=== PATIENT | female | born 1990 | race Caucasian/White ===

== ENCOUNTER 2018-05-19 17:51 | Emergency (ER) | payer MEDICAID, SELFPAY ==
[2018-05-19 17:53] VITALS: BP 113/69; PULSE 114; RESP 24; TEMP 36.7; O2SAT 100; BMI 20.5
--- NOTE | 2018-05-19 18:26 | EKG12_ITS ---
Test Reason : [facility] [place] Pressure : / mmHG Vent. Rate : 093 BPM Atrial Rate : 093 BPM P-R Int : 192 ms QRS Dur : 074 ms QT Int : 356 ms P-R-T Axes : 055 059 048 degrees QTc Int : 442 ms Sinus rhythm with sinus arrhythmia with occasional Premature ventricular complexes Otherwise normal ECG Confirmed by YOSVANY PETERSON, MARCOS ([id number]), editorial intern JAIME WILLIAM ([id number]) on 05/22/2018 4:17:19 PM Referred By: TR Confirmed By:MARCOS BAR MD
--- NOTE | 2018-05-19 18:30 | US_ITS ---
STUDY: SECOND AND THIRD TRIMESTER OBSTETRICAL ULTRASOUND - LIMITED REASON FOR EXAM: Female, 27 years old. Unsure LMP. Pain. PRIOR ULTRASOUND: None. TECHNIQUE: Transabdominal. TECHNICAL QUALITY: Adequate. FINDINGS: There is a single live intrauterine gestation in vertex presentation. Cardiac activity is documented, with heart rate of 140. Placenta is posterior, with no evidence of previa. Amniotic fluid is visually adequate. Cervical length is not well seen. The cervix is closed. biometry demonstrates biparietal diameter corresponding to 18 weeks 4 days, head circumference corresponding to 18 weeks 3 days, abdominal circumference 19 weeks 2 days, femur length 19 weeks 1 day. Mean sonographic estimated gestational age measures 18 weeks 6 days. Estimated date of delivery 10/14/2018. Estimated weight 273 g. Right adnexal lesion measures 8.1 x 6.3 x 4.3 cm. It is unclear whether this represents the ovary or adjacent structure. Normal left ovary measuring 3.8 x 2.5 x 2.2 cm. No mass or dominant cyst. Venous flow is documented. US/OB Limited With Biometrics IMPRESSION: 1. Single live intrauterine gestation with EGA 18 weeks 6 days. 2. Question right ovarian mass versus adjacent structure. Options include MRI for further evaluation versus ultrasound or MRI. Electronically Signed: Eleonora Joshi MD at 21:26 EST Tel , Service support ,
--- NOTE | 2018-05-19 18:33 | ED.RN ---
NO OLD EKGS IN MUSE
--- NOTE | 2018-05-19 18:40 | RAD_ITS ---
STUDY: X-RAY CHEST REASON FOR EXAM: Female, 27 years old. Substance abuse and TECHNIQUE: Single frontal view of the chest. COMPARISON: None. FINDINGS: The lungs are clear and expanded. There is no demonstrated pleural abnormality. Normal size heart. Normal mediastinum and cesar. Normal visualized pulmonary arteries. Normal visualized aortic arch and descending thoracic aorta. Normal visualized thoracic spine. Normal visualized ribs, clavicles, and shoulders. There is no demonstrated abnormality of the visualized soft tissue structures of the upper abdomen. RAD/Chest 1 View (Portable) IMPRESSION: Normal x-ray examination of the chest. Electronically Signed: Isaac Sparks MD at 20:10 EST , Service support ,
[2018-05-19] MEDS: LORazepam 2 MG/ML Syringe 0.5 MG IV ×2 (18:49→21:56)
[2018-05-19 19:01] LABS: Mucous, Urine 0 SEEN /hpf (<or=2+)
[2018-05-19] MEDS: 0.9% Normal Saline 1,000 ML 150 ML IV (19:01)
[2018-05-19 19:02] VITALS: PULSE 99; RESP 17; O2SAT 99
[2018-05-19 19:04] LABS: Glucose, Dipstick Normal (Normal); Ketone-Dipstick Negative (Negative); Leukocyte Esterase-Dipstick 500 /ul (Negative); Nitrite-Dipstick Negative (Negative); Occult Blood-Urine 25 /ul (Negative); Protein-Dipstick 100 mg/dl (Negative); Urine Bilirubin Dipstick Negative (Negative); Urine Urobilinogen Normal (Normal)
[2018-05-19 19:05] LABS: Absolute Neutrophil Count 10.1 X10^3/uL (2.0-7.7); Basophil# 0.02 X10^3/uL; Basophil% 0.2 % (0-1); Eosinophil# 0.06 X10^3/uL; Eosinophils% 0.5 % (0-5); Hematocrit 31.4 % (37-47); Hemoglobin 10.1 g/dl (12.0-15.0); Lymphocyte % 12.3 % (19-41); Mean Corp Hgb Conc 32.2 g/gl (32-36); Mean Corpuscular Hgb 27.4 pg (27.0-32.0); Mean Corpuscular Volume 85.1 fL (81-99); Mean Platelet Vol. 9.3 fl (6.2-12.0); Monocyte# 0.42 X10^3/uL; Monocyte% 3.4 % (0-10); Neutrophil # 10.12 X10^3/uL (2.7-7.7); Neutrophil % 82.9 % (47-70); Platelet Count 225 K/mm3 (150-450); RBC Distribution Width CV 16.1 % (11.6-14.6); Red Blood Count 3.69 M/mm3 (4.2-5.4); White Blood Count 12.2 K/mm3 (4.4-11.0)
[2018-05-19 19:07] LABS: Differential Indicated SCAN CRITERIA MET; POSITIVE COUNT NO; POSITIVE DIFFERENTIAL NO; POSITIVE MORPHOLOGY YES
[2018-05-19 19:10] LABS: Color, Urine Yellow (Yellow); Urine Clarity Sl Cloudy (Clear)
[2018-05-19 19:12] LABS: Red Blood Cells-Urine 0-5 SEEN /hpf (0-5); Squamous Epithelial Cells - UA 5-10 SEEN /hpf (5-10); White Blood Cells 50-100 SEEN /hpf (0-5)
[2018-05-19 19:13] LABS: Amorphous Sediment 1+ URATE; Bacteria 4+ /hpf (None Seen)
[2018-05-19 19:15] LABS: Amphetamine Urine VISTA NEGATIVE (<1000 ng/mL); Barbiturate Urine VISTA NEGATIVE (< 200 ng/mL); Benzodiazepine Urine VISTA NEGATIVE (< 200 ng/mL); Cocaine Urine VISTA POSITIVE (< 300 ng/mL); Ecstacy Urine VISTA NEGATIVE (< 500 ng/mL); Methadone Urine VISTA NEGATIVE (< 300 ng/mL); PCP Urine VISTA NEGATIVE (< 25 ng/mL); THC Urine VISTA POSITIVE (< 50 ng/mL); Vista UDS pH Range 6
[2018-05-19 19:36] LABS: Alcohol, Blood (Medical)-Serum < 3.0 mg/dL
[2018-05-19 19:38] LABS: AST(SGOT) 26 U/L (15-37); Alanine Aminotransfer ALT/SGPT 25 U/L (13-56); Albumin, Serum 2.7 g/dL (3.2-5.0); Alkaline Phosphatase 68 U/L (45-117); Anion Gap 9 (5-15); BUN 14 mg/dL (7-18); BUN/Creat Ratio 8.2 RATIO (10-20); Bilirubin, Direct < 0.05 mg/dL (0.00-0.30); Calcium,Total 9.2 mg/dL (8.5-10.1); Chloride 108 mmol/L (98-107); EST Glomerular Filtration Rate 38 mL/min (>60); Est Glom Filt Rate - Afr Amer 46 mL/min (>60); Estimated Creatinine Clearance 49.44 ml/min; Glucose 99 mg/dL (74-106); Lipase 101 U/L (73-393); Potassium 3.1 mmol/L (3.5-5.1); Protein, Total 7.7 g/dL (6.4-8.2); Sodium Level 140 mmol/L (136-145)
--- NOTE | 2018-05-19 19:41 | ED.RN ---
CALLED CRISIS TO SEE THIS PT, JOSHUA IS FILM NUMBERER
[2018-05-19 19:56] LABS: hCG Titer Quant., Serum 30967 mIU/mL (<9 non-preg)
[2018-05-19] MEDS: Nitrofurantoin Macrocrystals 100 MG Capsule PO (20:26)
[2018-05-19 20:27] VITALS: BP 108/66; PULSE 101; RESP 22; O2SAT 97
[2018-05-19 20:29] LABS: Differential Comment SCANNED; Platelet Estimate ADEQUATE (ADEQ)
[2018-05-19 21:16] VITALS: BP 114/72; PULSE 103; RESP 18; O2SAT 97
[2018-05-19] MEDS: Ondansetron 4 MG/2 ML Vial IV (21:55)
[2018-05-19 22:18] VITALS: BP 109/67; PULSE 94; RESP 17; O2SAT 96
--- NOTE | 2018-05-19 22:38 | ED.RN ---
JOSHUA CALLED BACK, SHE WILL BE IN
[2018-05-19 23:01] VITALS: BP 108/70; PULSE 90; RESP 14; O2SAT 97
[2018-05-20] VITALS (9 sets, daily range): BP systolic 103–124; BP diastolic 69–83; PULSE 81–96; RESP 13–28; O2SAT 96–98
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
[2018-05-20] MEDS: Ondansetron ODT 4 MG Tablet PO (04:25)
[2018-05-20] MEDS: LORazepam 2 MG/ML Syringe 1 MG IV (04:25)
[2018-05-20] MEDS: Nitrofurantoin Macrocrystals 100 MG Capsule PO (07:29)
== END 2018-05-20 07:57 ==
PROVIDERS: Emergency Provider Emergency Medicine
DX: R45.851 Suicidal ideations (principal); B19.20 Unspecified viral hepatitis C without hepatic coma; F19.11 Other psychoactive substance abuse, in remission; N18.9 Chronic kidney disease, unspecified; O23.42 Unspecified infection of urinary tract in pregnancy, second trimester; O26.832 Pregnancy related renal disease, second trimester; O26.892 Other specified pregnancy related conditions, second trimester; O98.412 Viral hepatitis complicating pregnancy, second trimester; Z85.72 Personal history of non-Hodgkin lymphomas; Z3A.18 18 weeks gestation of pregnancy; Z59.0 Homelessness
CPT/HCPCS: 71045; 76816; 80048; 80076; 80307; 80320; 81001; 83690; 84702; 85025; 86900; 87077; 87086; 87088; 87186; 93005; 99285; J7030; A4216; G0480; J2405

== ENCOUNTER 2018-07-21 16:03 | Emergency (ER) | payer MEDICAID, SELFPAY ==
[2018-07-21 16:05] VITALS: BP 116/76; PULSE 91; RESP 18; TEMP 36.6; O2SAT 96; BMI 23.3
--- NOTE | 2018-07-21 16:32 | ED.VISSUMM ---
- ER Visit Summary Date of Service: 07/21/18 Chief Complaint: [] 6 months requesting Subutex for opioid rehab purposes History of Present Illness: The patient is a 27 F [] patient indicates she is 6 months she has history of opioid abuse and she is on Subutex 12 mg a day, she indicates she was at a recent rehab center in the region called [facility] yesterday, indicates they did not provide her with further Subutex medication as she normally gets up from providers in [place], she also indicates she is scheduled to see Dr. cullen of [address] [place] [address] on Monday, in any case she took her Subutex yesterday has none and presents to the emergency department asking that she be given a dose of Subutex she is also had a chronic cough but otherwise her is uncomplicated she is following all of her detox therapy and recommendations She indicates the Subutex that she receives is from a walk-in clinic so she does not have a pharmacy that she usually uses, she did provide paperwork that she used to indicate evidence of the appropriateness to provide her Subutex will copy that paper placed on her chart Physical Examination: [] Vital signs are all within normal range she is in no distress General, no distress resting comfortably HEENT is generally unremarkable The neck is supple no adenopathy Cardiovascular, regular rate and rhythm Lungs, clear bilateral Abdomen, soft nontender Extremities, no clubbing cyanosis or edema Neurologic, awake alert answering questions appropriately moving all 4 extremities Test Results: [] Emergency Department Course and Treatment: [] Long conversation with the patient I explained to her the management and prescription practice for Subutex is quite regimented by multiple regulatory agencies and that if her providers for Subutex are in [place] she needs to obtain all those medications from them until her care is transferred to other providers in the emergency department cannot basically provide prescriptions for Subutex I spoke with Dr. cullen as a courtesy to Dr. cullen to let her know of the above situation with the patient Dr. cullen stated she does not know the patient she is not in her care at this time and could not provide any specific instructions as to her current management today This time of explained to the patient that for this 1 time and exception will be made I will prescribe her Subutex 12 mg for today this will allow her the opportunity to go to [place] and get the remaining medications until her care is transferred to [facility] I further explained to her that it is likely she will not receive a prescription for 180 until she is seen on Monday no further prescriptions will be provided from the emergency department Treatment Plan: [] Disposition: [] Home stable Impression: [] 6 months , opioid dependency currently on Subutex therapy This note was generated with coin4ceation software. It may contain incorrect words, spelling, and punctuation that were not noted in review of the chart prior to signing ED Disposition - Plan for ED Patient: Chief Complaint: Substance Abuse Referrals: Care Physician,No Primary [Primary Care Provider] -
--- NOTE | 2018-07-21 16:36 | ED.DEP ---
ED Disposition - Plan for ED Patient: Chief Complaint: Substance Abuse Instructions: ED Narcotic Abuse Referrals: Care Physician,No Primary [Primary Care Provider] - Additional Instructions: You must obtain your Subutex and all other detox management medications from your providers even if they are in [place] you should follow-up as scheduled with 180, you may not receive a prescription for any medications until Monday, there will be no further medications provided from the emergency department
[2018-07-21 17:23] VITALS: PULSE 72; RESP 18; O2SAT 97
== END 2018-07-21 17:20 | disposition home or self-care (01) ==
PROVIDERS: Emergency Provider Emergency Medicine
DX: O99.322 Drug use complicating pregnancy, second trimester (principal); F11.20 Opioid dependence, uncomplicated; Z3A.00 Weeks of gestation of pregnancy not specified; R05 Cough
CPT/HCPCS: 99282

== ENCOUNTER 2018-08-01 12:35 | Inpatient (IN) | payer MEDICAID, SELFPAY ==
[2018-08-01 13:29] VITALS: BMI 23.9
[2018-08-01] MEDS: 0.9% Saline Lock 10 ML Syringe IV ×2 (13:30→21:00)
[2018-08-01 14:11] LABS: Hematocrit 27.8 % (37-47); Hemoglobin 8.8 g/dl (12.0-15.0); Mean Corp Hgb Conc 31.7 g/gl (32-36); Mean Corpuscular Hgb 27.8 pg (27.0-32.0); Mean Corpuscular Volume 87.7 fL (81-99); Mean Platelet Vol. 10.1 fl (6.2-12.0); Platelet Count 216 K/mm3 (150-450); RBC Distribution Width CV 12.3 % (11.6-14.6); RBC Distribution Width SD 37.8 fl (35.1-43.9); Red Blood Count 3.17 M/mm3 (4.2-5.4); White Blood Count 6.7 K/mm3 (4.4-11.0)
[2018-08-01 14:12] LABS: Scan Indicated on CBC? Y/N NO
[2018-08-01 14:45] LABS: Anion Gap 11 (5-15); BUN 22 mg/dL (7-18); BUN/Creat Ratio 14.9 RATIO (10-20); Calcium,Total 8.6 mg/dL (8.5-10.1); Chloride 108 mmol/L (98-107); Creatinine, Serum 1.48 mg/dL (0.55-1.02); EST Glomerular Filtration Rate 45 mL/min (>60); Est Glom Filt Rate - Afr Amer 54 mL/min (>60); Estimated Creatinine Clearance 59.67 ml/min; Glucose 91 mg/dL (74-106); Potassium 3.7 mmol/L (3.5-5.1); Sodium Level 140 mmol/L (136-145)
[2018-08-01] MEDS: miSOPROStol 50 MCG TABLET VAGINAL (14:57)
[2018-08-01 17:22] LABS: Amphetamine Urine VISTA NEGATIVE (<1000 ng/mL); Barbiturate Urine VISTA NEGATIVE (< 200 ng/mL); Benzodiazepine Urine VISTA NEGATIVE (< 200 ng/mL); Cocaine Urine VISTA NEGATIVE (< 300 ng/mL); Ecstacy Urine VISTA NEGATIVE (< 500 ng/mL); Methadone Urine VISTA NEGATIVE (< 300 ng/mL); PCP Urine VISTA NEGATIVE (< 25 ng/mL); THC Urine VISTA NEGATIVE (< 50 ng/mL); Vista UDS pH Range 6
[2018-08-01] MEDS: miSOPROStol 100 MCG TABLET VAGINAL (19:01)
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
[2018-08-01] MEDS: BUPRENORPHINE HCL 8 MG TAB.SUBL 4 MG SL (20:50)
[2018-08-01] MEDS: miSOPROStol 100 MCG TABLET 150 MCG VAGINAL (23:31)
[2018-08-02] MEDS: Lactated Ringers 1,000 ML 50 ML IV ×3 (00:05→06:05)
[2018-08-02] MEDS: Nalbuphine 10 MG/ML Ampul IV (00:38)
[2018-08-02] MEDS: fentaNYL-bupivacaine (epidural) 100 ML BAG EPIDURAL ×2 (01:40→06:04)
[2018-08-02] MEDS: BUPRENORPHINE HCL 8 MG TAB.SUBL 4 MG SL ×4 (03:41→21:38)
[2018-08-02] MEDS: miSOPROStol 100 MCG TABLET 150 MCG VAGINAL (03:42)
[2018-08-02] MEDS: Levothyroxine 125 MCG Tablet PO (05:18)
[2018-08-02] MEDS: Oxytocin 30 units/NS 500 ml 30 UNITS/500 ML IV.SOLN 334 UNITS IV (08:40)
--- NOTE | 2018-08-02 09:00 | PLAC_PTH ---
PATIENT: AISSATOU JOHNSON LOC: [facility] U#:[id number] AGE/SX: 27/F ROOM: WP011 RE08/01/[address]: Dr. Analy Vilchis MD : 1990 BED: 1 DIS: 08/03/2018 SPEC #: [id number] RECD: 08/02/18 10:27 STATUS: MAI CHETAN #: [id number] TRISH: 08/02/18 09:[address]: Analy Vilchis DEPT: SURGICAL PATHOLOGY RECD BY: Leighton Griffin ENTERED: 08/02/18 11:36 SP TYPE: PLACENTA OT DR: No Primary Care Phys Tissues: Placenta, NOS Procedures: Surgery Specimen Level V HEADER OPERATION: Vaginal delivery PRE-OP DIAGNOSIS: demise TISSUE SUBMITTED: Placenta MICROSCOPIC DIAGNOSIS Vasquez placenta (240 gm): Umbilical cord - trivascular with no inflammation. Placental membranes - no evidence of inflammation. Placental disc - immature villi consistent with age. Mikel change. Mild acute and chronic deciduitis. Focal infarct of placental floor. Focal nonspecific chronic villitis. AM:pete 08/06/18 MICROSCOPIC DESCRIPTION Slides are reviewed. GROSS DESCRIPTION SPECIMEN: PLACENTA / CLINICAL INFORMATION: A. Weight: Not noted B. Gestational Age: 28 weeks C. Sex: Male PLACENTAL WEIGHT (POST FIXATION): 240 gm PLACENTAL DIMENSIONS: 15 x 11 x 2.5 cm PLACENTAL SHAPE: Usual ovoid PLACENTAL WEIGHT FOR GESTATIONAL AGE: Within 10-99th percentile MEMBRANES - Present A. Insertion: Marginal B. Site of rupture from edge: The membranes are fragmented and appear to be ruptured 1 cm from edge of placental disc. C. Color of membrane: Hernandez-martinez D. Abnormalities: None UMBILICAL CORD - Present in two segments. A. Color: Hernandez-martinez B. Insertion: Paracentral C. Length: The proximal segment of the umbilical cord attached to placenta measures 26 cm in length. D. Diameter: 1 cm E. Number of vessels: Three F. Abnormalities: The distal segment of umbilical cord also appears to be dusky red and macerated 24?cm in length and 1 cm in diameter. PLACENTAL DISC - Present A. Color of surface: Hernandez-martinez B. surface abnormalities: None C. Maternal cotyledons: Intact with minimal tears D. Attached retro placental clot: No clot E. Cut surface: Dark red and spongy F. Lesions: The maternal surface shows a few plaque-like areas. A hernandez, indurated lesion is also noted measuring 1.5 cm in greatest dimension. G. Separate clot: A small piece of detached blood is also present in the container measuring 3 x 2 x 0.5 cm and weighs 2 gm. SECTIONS SUBMITTED: 1. Membrane roll 2. Cord, maternal end 3. Cord, end 4. Placental disc, and maternal surfaces, lesion 5. Placental disc, and maternal surfaces, plaque on material surface 6. Placental disc, and maternal surfaces, plaque on material surface CHRISTIN:pete 08/03/18 TC:2 CPT: 08369
[2018-08-02] MEDS: Oxytocin 30 units/NS 500 ml 30 UNITS/500 ML IV.SOLN 167 UNITS IV (09:10)
--- NOTE | 2018-08-02 09:42 | PCM.OB.VAG ---
- Problem List (1) demise > 22 weeks, delivered, current hospitalization Status: Acute Vaginal Delivery Maternal Presentation: Medically Indicated Induction Method of Induction: Cytotec Medical Reason for Induction: demise Amniotic Membrane Rupture Type: Artificial Amniotic Fluid Description: Foul-odor, Bloody Final GILBERT: 10/22/18 Gestational age: 28 Weeks and 3 Days Date of Procedure: 08/02/18 Pre-Operative Diagnosis: demise Post-Operative Diagnosis: Vaginal Delivery demise Surgery/ Procedure Performed: Spontaneous Vaginal Delivery Type of Anesthesia: Epidural Description of Procedure: Progressed to complete with bulging membranes. AROM for bloody foul smelling fluid. Vaginal after of demise. Infant delivered intact , cord clamped and cut. taken to crib. Placenta delivered intact with maternal effort. Perineum inspected and no lacerations. EBL 200ml. Placenta to pathology and cultures. Unable to get cord blood from placenta. Mother tearful, emotional support provided. notified of delivery.
[2018-08-02 14:20] VITALS: BP 113/80; PULSE 105; RESP 16; TEMP 37.6
[2018-08-02] MEDS: Ferrous Sulfate 325 MG Tablet PO ×2 (14:30→18:20)
--- NOTE | 2018-08-02 15:09 | NURSING ---
1420 pt has taken her nicotine patch off; pt states that she wants to go out and smoke; Pt denied any further non smoking interventions; pt signed assumption of risk paper; marvin mo'dominic egan made aware;
--- NOTE | 2018-08-02 15:14 | NURSING ---
1300 pt holding and gazing at infant; pts mother supportive at bedside; pt tearful
[2018-08-02 15:47] VITALS: BP 112/74; PULSE 100; RESP 16; TEMP 37.2
[2018-08-02 16:44] LABS: Hematocrit 30.9 % (37-47); Mean Corp Hgb Conc 32.4 g/gl (32-36); Mean Corpuscular Hgb 28.3 pg (27.0-32.0); Mean Corpuscular Volume 87.5 fL (81-99); Mean Platelet Vol. 9.8 fl (6.2-12.0); Platelet Count 190 K/mm3 (150-450); RBC Distribution Width CV 12.2 % (11.6-14.6); RBC Distribution Width SD 37.5 fl (35.1-43.9); Red Blood Count 3.53 M/mm3 (4.2-5.4); Scan Indicated on CBC? Y/N NO; White Blood Count 11.8 K/mm3 (4.4-11.0)
--- NOTE | 2018-08-02 16:49 | CASEMGMT ---
Social Work Labor and Delivery Notified of patient/mother of baby (MOB) admission, delivering a 28 week gestational demise. MOB also with history of substance use, and in residential treatment for such. Chart has been reviewed. Noted that MOB's mother has reached out to a grief support counselor already, and this entry writer noted a female outside of MOB's room this date, talking to another female that this entry writer knows to be a talent coordinator for a local hospice agency. Checked with nursing and MOB has had the baby in the room today, but requesting baby to be out of room while MOB sleeps for a couple of hours. Presented to MOB's room to introduce to self and role. Acknowledged MOB's support system through [employer], family, and the grief counselor visit today. MOB confirmed support system indicated. Offered condolences to MOB on loss of baby. This entry writer offered to let MOB sleep, then also provided option for oncology social worker to check back with MOB tomorrow if MOB wishes. MOB voiced that would be good if oncology social worker wants to come back tomorrow to check in. Plan: See MOB again tomorrow, check on how doing and if additional support or needs are present. -PORTILLO Emanuel, PATIENT ACCOUNT REPRESENTATIVE
--- NOTE | 2018-08-02 18:58 | NURSING ---
wt. 885 gm, 1#15.2 oz, 14 inches long, 9 inch head circ. male
--- NOTE | 2018-08-02 19:09 | NURSING ---
1900 pt request spiritual support; states that she wants baby prayed over and blessed; phone call placed to manager socialSisi and she is arranging for someone to come in;
[2018-08-02] MEDS: Ondansetron ODT 4 MG Tablet PO (20:06)
[2018-08-02 21:55] VITALS: BP 106/69; PULSE 102; RESP 18; TEMP 37.2
[2018-08-02] MEDS: Sertraline 50 MG Tablet 25 MG PO (21:59)
[2018-08-02] MEDS: Haloperidol 5 MG Tablet PO (22:00)
--- NOTE | 2018-08-02 23:27 | NURSING ---
Casting Cleaner from [facility] arrived to . Escorted to patient room. Patient's mother an father present. Nurse left the room briefly to retrieve for the prayer & blessing. Upon return to room with , he was placed in mother's arms. Nurse asked if patient wanted privacy or wanted nurse to stay in room. Patient requesting I stay. Casting Cleaner left approximately 20:40. family asked that the home be called 20:50 [facility] notified by phone the family is ready for to be picked up. Nurse returned to patient's bedside. Patient asked that I stay with her until she was ready to say goodbye. Patient holding infant and gazing at him. Talking to him and saying I love you so much 21:10 patient reports she is ready for to leave the room. Infant taken by Nurse and prepared for departure with home. Infant properly identified. Paperwork signed by [facility] and left unit at 21:20 with home access services representative (Nargis). Patient & family notified by nurse that home left the hospital with infant Nurse remained at bedside with patient other than to leave the room very briefly to make appropriate phone calls
[2018-08-03 03:30] VITALS: BP 89/51; PULSE 91; RESP 18; TEMP 36.6
[2018-08-03] MEDS: BUPRENORPHINE HCL 8 MG TAB.SUBL 4 MG SL ×2 (03:41→08:41)
[2018-08-03] MEDS: Levothyroxine 125 MCG Tablet PO (06:01)
--- NOTE | 2018-08-03 07:32 | PCM.PN.OB ---
Patient Problems: Active and Suspected Problems demise > 22 weeks, delivered, current hospitalization (Acute) Subjective: Patient is doing okay this morning. Her mother is at bedside. She slept well last night. She has a decreased appetite but ate okay yesterday and without N/V. Pain is controlled. Lochia normal. Denies lightheadedness, dizziness, CP, SOB, leg pain. - Physical Exam General: Alert, No apparent distress HEENT: Atraumatic Lungs: - - No increased resp effort Abdomen: Soft, Non Tender, Non-Distended Extremities: No edema, No Calf Tenderness Skin: No rashes Neurological: Neuro grossly intact Psych/Mental Status: Normal Affect, Appropriate Vital Signs Temp Pulse Resp BP 97.8 F 91 18 89/51 L 08/03/18 03:30 08/03/18 03:30 08/03/18 03:30 08/03/18 03:30 Weight: 162 lb 4.163 oz Body Mass Index (BMI) 23.9 Intake and Output for Last 24 Hours 08/01/18 08/02/18 08/03/18 23:59 23:59 23:59 Intake Total 3441 / 3441 Output Total 300 / 300 2700 / 2700 Balance -300 / -300 741 / 741 Microbiology Past 72 Hours 08/02/18 09:45 Gram Stain - Final Tissue - Aerobic & Anaerobic Swabs 08/02/18 09:45 Gram Stain - Final Tissue - Aerobic & Anaerobic Swabs Laboratory Tests Past 24 Hrs 08/02/18 16:20 WBC 11.8 H RBC 3.53 L Hgb 10.0 L Hct 30.9 L MCV 87.5 MCH 28.3 MCHC 32.4 RDW 12.2 RDW Differential 37.5 Plt Count 190 MPV 9.8 Medical Necessity - Tobacco Use Smoking Status: Current every day smoker Assessment/Plan All Active Problems demise > 22 weeks, delivered, current hospitalization (Acute) day #2 s/p for demise. - Pt doing okay this morning and her mother is at bedside for support - She desires to go home today. D/c today with follow up in 1 week - She is going to get established at [facility] for counseling as well
--- NOTE | 2018-08-03 07:42 | DCINST_ITS ---
- Discharge Diagnoses Current Active Problems: Current Active and Chronic Problems demise > 22 weeks, delivered, current hospitalization (Acute) You will use the following diet at home:: No restrictions, Regular Discharge Activity: Return to Normal Activity, May Shower May resume sexual activity in: 4-6 weeks Ice area for (Minutes): 20 Weight Bearing Status: Full weight bearing Lifting Restrictions: None Call your doctor if you observe: Fever of 101 or Higher, Inability to urinate, Inability to have a bowel movement, Using more than one pad per hour, Shortness of breath, Dizziness, Chest pain, Increased palpitations (irregular heartbeat), Calf discomfort, Uncontrolled pain Cleanse incision/area with: Soap & Water Allergies/Adverse Reactions: Allergies ceftriaxone [From Rocephin] Allergy (Verified 07/21/18 16:05) Unknown droperidol Allergy (Verified 07/21/18 16:05) Unknown LAXATIVE Allergy (Uncoded 07/21/18 16:05) Unknown Medications to take at Discharge Aspirin [Aspir 81] 81 mg PO DAILY 07/21/18 Buprenorphine HCl 4 mg PO Q6H 07/21/18 DiphenhydrAMINE [Benadryl] 50 mg PO QHS 07/21/18 Ferrous Sulfate 325 mg PO TID 07/21/18 Haloperidol [Haldol] 5 mg PO DAILY 07/21/18 Hydroxyzine HCl 25 mg PO PRN PRN 07/21/18 Magnesium Hydroxide [Milk Of Magnesia] 30 ml PO DAILY PRN PRN 07/21/18 Ondansetron [Zofran Odt] 4 mg PO Q8H PRN PRN 07/21/18 Vit No.130/Iron/Folic [ Tablet] 1 each PO DAILY 07/21/18 Sertraline HCl [Zoloft] 25 mg PO DAILY 07/21/18 Vitamin B-12 500 mcg PO DAILY 07/21/18 Metoclopramide [Reglan] 10 mg PO PRN PRN 08/01/18 Primary Care Physician: Care Physician,No Primary [Primary Care Provider] - Test Results: Test results from this visit will be discussed in further detail at your follow- up appointment, if applicable. Please Follow Up With: Loreta Loza DO When: 1 week
[2018-08-03 08:00] VITALS: BP 107/66; PULSE 98; RESP 16; TEMP 36.8
--- NOTE | 2018-08-03 09:23 | NURSING ---
0830 discharge talk done; pt verbalizes understanding phone call placed to 180 to come and product picker pts subutex; rusty into see pt agreed to make a councling appt. rusty will arrange and notify pt at what time.
--- NOTE | 2018-08-03 09:26 | NURSING ---
[id number] pt discharged to home
[2018-08-05 07:40] LABS: Pathology Specimen OB SEE PATHOLOGY REPORT
--- NOTE | 2018-08-09 14:31 | NURSING ---
Spoke with grandmother. Mother had demise and mother is staying at the [facility]. She states they are doing well and appreciated all that everyone did.
== END 2018-08-03 08:40 | disposition home or self-care (01) | DRG 560 ==
PROVIDERS: Advanced Practice Midwife; Admitting Provider Obstetrics & Gynecology; Referring Provider Obstetrics & Gynecology; Visit Provider Obstetrics & Gynecology
DX: O36.4XX0 Maternal care for intrauterine death, not applicable or unspecified (principal); Z37.1 Single stillbirth; O34.219 Maternal care for unspecified type scar from previous cesarean delivery; O99.334 Smoking (tobacco) complicating childbirth; Z3A.28 28 weeks gestation of pregnancy
CPT/HCPCS: 59050; 80048; 80307; 85027; 86850; 86900; 87070; 87075; 87077; 87186; 87205; 88307; 99218; J7120; A4216; G0378

== ENCOUNTER → 2018-09-27 11:49 | Outpatient (CLI) | payer MEDICAID, SELFPAY ==
[2018-09-27 11:14] VITALS: BMI 23.9
[2018-09-27 12:19] LABS: Absolute Lymphocyte Count 1.98 X10^3/ul (0.83-4.51); Absolute Neutrophil Count 1.6 X10^3/uL (2.0-7.7); Basophil# 0.01 X10^3/uL; Basophil% 0.2 % (0-1); Eosinophil# 0.13 X10^3/uL; Eosinophils% 3.1 % (0-5); Hematocrit 34.8 % (37-47); Hemoglobin 11.3 g/dl (12.0-15.0); Lymphocyte # 1.98 X10^3/ul (4.0); Lymphocyte % 47.3 % (19-41); Mean Corp Hgb Conc 32.5 g/gl (32-36); Mean Corpuscular Hgb 26.6 pg (27.0-32.0); Mean Corpuscular Volume 81.9 fL (81-99); Mean Platelet Vol. 9.8 fl (6.2-12.0); Monocyte# 0.45 X10^3/uL; Monocyte% 10.7 % (0-10); Neutrophil # 1.61 X10^3/uL (2.7-7.7); Neutrophil % 38.5 % (47-70); Platelet Count 219 K/mm3 (150-450); RBC Distribution Width CV 12.5 % (11.6-14.6); RBC Distribution Width SD 36.8 fl (35.1-43.9); Red Blood Count 4.25 M/mm3 (4.2-5.4); White Blood Count 4.2 K/mm3 (4.4-11.0)
[2018-09-27 12:30] LABS: POSITIVE COUNT NO; POSITIVE DIFFERENTIAL NO; POSITIVE MORPHOLOGY NO
[2018-09-27 13:10] LABS: ALB/GLOB Ratio 0.9 RATIO (0.9-2.4); AST(SGOT) 61 U/L (15-37); Alanine Aminotransfer ALT/SGPT 99 U/L (13-56); Albumin, Serum 3.5 g/dL (3.2-5.0); Alkaline Phosphatase 101 U/L (45-117); Anion Gap 8 (5-15); BUN 36 mg/dL (7-18); BUN/Creat Ratio 22.8 RATIO (10-20); Calcium,Total 8.7 mg/dL (8.5-10.1); Chloride 109 mmol/L (98-107); Creatinine, Serum 1.58 mg/dL (0.55-1.02); EST Glomerular Filtration Rate 41 mL/min (>60); Est Glom Filt Rate - Afr Amer 50 mL/min (>60); Glucose 84 mg/dL (74-106); Potassium 4.3 mmol/L (3.5-5.1); Protein, Total 7.5 g/dL (6.4-8.2); Sodium Level 139 mmol/L (136-145); T4 Free Direct 1.12 ng/dL (0.76-1.46); Thyroid Stim Hormone (TSH) 0.03 uIU/mL (0.358-3.74); Vitamin B12 708 pg/mL (211-911); Vitamin D,25 Hydroxy 24.4 ng/mL (29.95-100.01)
== END ==
PROVIDERS: PCP Internal Medicine; Visit Provider Nurse Practitioner Family
DX: E53.8 Deficiency of other specified B group vitamins (principal); E56.9 Vitamin deficiency, unspecified; F19.10 Other psychoactive substance abuse, uncomplicated; R53.83 Other fatigue
CPT/HCPCS: 36415; 80053; 82306; 82607; 84439; 84443; 85025

== ENCOUNTER → 2018-10-31 13:48 | Outpatient (CLI) | payer MEDICAID, SELFPAY ==
[2018-10-15 16:02] VITALS: BMI 23.9
--- NOTE | 2018-10-31 13:51 | US_ITS ---
STUDY: RENAL ULTRASOUND - COMPLETE REASON FOR EXAM: Female, 27 years old. Elevated BUN/creatinine, right renal agenesis TECHNIQUE: Ultrasound evaluation of the kidneys was performed with real-time and static robertson-scale imaging. COMPARISON: None. FINDINGS: RIGHT KIDNEY: Absent LEFT KIDNEY: Normal location of the left kidney, which is normal in size. The left kidney measures 10.7 x 6.9 x 6.8 cm. There is a normal cortex of the left kidney. The renal cortex measures 3.6 cm. There is a 1.5 cm cyst There are no left renal calculi. There is mild hydronephrosis of the left kidney. DISTAL LEFT URETER: There is non-visualization of the distal left ureter. There is no demonstrated left ureterovesical junction calculus. There is a visualized left ureteral jet. AORTA: There is no elongation or tortuosity of the abdominal aorta. I.V.C.: The IVC is patent. BLADDER: The distended urinary bladder has a volume of 365.3 ml. Bladder is sonographically normal US/Kidney and Bladder IMPRESSION: Absent right kidney Left kidney shows a 1.5 cm cyst and mild hydronephrosis of uncertain etiology. Sonographically normal bladder Electronically Signed: Ti Warren MD at 16:59 EDT , Service support ,
== END ==
PROVIDERS: Family Provider Internal Medicine; PCP Internal Medicine; Referring Provider Urology; Visit Provider Urology
DX: N17.9 Acute kidney failure, unspecified (principal)
CPT/HCPCS: 76770

== ENCOUNTER → 2018-12-03 08:09 | Outpatient (CLI) | payer MEDICAID, SELFPAY ==
[2018-11-12 10:16] VITALS: BMI 21.4
[2018-11-26 14:41] VITALS: BMI 21.4
--- NOTE | 2018-12-03 08:19 | CT_ITS ---
STUDY: CT ABDOMEN AND PELVIS WITHOUT CONTRAST REASON FOR EXAM: Female, 28 years old. Left hydronephrosis. Solitary kidney. History of treated Hodgkin's lymphoma. RADIATION DOSAGE (If Supplied By Facility): CTDIvol = ( 6.30 ) mGy, DLP = ( 303.87 ) mGycm TECHNIQUE: Transaxial images were obtained from the dome of the diaphragm to the symphysis pubis without oral contrast, and without intravenous contrast. Sagittal and coronal images were reconstructed. Individualized dose optimization techniques were used for this CT. COMPARISON: None. FINDINGS: The visualized lung bases are unremarkable. The visualized portions of the heart are within normal limits. Normal liver. Normal gallbladder and extrahepatic biliary system. Normal spleen. Normal pancreas. Normal bilateral adrenal glands. Solitary left kidney. The left kidney as irregular contour most likely representing small cysts. Correlation with enhanced CT scan of the abdomen is recommended for further evaluation. Normal visualized stomach. Normal small intestine. Normal colon. The appendix is visualized and appears normal. Normal abdominal aorta. Normal inferior vena cava. Normal retroperitoneum. Normal urinary bladder. Questionable 3.9 cm x 3.6 cm rounded soft tissue density in the right adnexa. Normal abdominal wall. Normal osseous structures. CT/Abdomen/Pelvis without Cont IMPRESSION: Solitary left kidney. Abnormal contour. Impression buckle 3.9 cm x 3.6 cm soft tissue density in the right adnexa. A repeat CT scan of the abdomen pelvis following oral and intravenous contrast is recommended. Electronically Signed: Pedro Luis Merrill, at 9:18 EDT , Service support ,
--- NOTE | 2018-12-03 08:50 | RAD_ITS ---
CLINICAL HISTORY: Female, 28 years old. Left hydronephrosis. In the lateral left kidney. PROCEDURE: Voiding cystourethrogram. FLUOROSCOPY TIME (if supplied): (0:38) minutes/seconds 150 mL of contrast installed into the bladder in a retrograde fashion through indwelling Payne catheter. The radiologist installed the contrast into the bladder. TECHNIQUE: (All elements of maximal sterile barrier technique followed, including US elements as applicable) The bladder was opacified. There was no evidence of vesicoureteral reflux. Cystocele. RAD/Voiding Urethrocystography IMPRESSION: No evidence of the vesicoureteral reflux. Cystocele. Electronically Signed: Pedro Luis Merrill, at 15:19 EDT , Service support ,
--- NOTE | 2018-12-03 09:15 | NURSING ---
Payne catheter inserted for completion of voiding cystogram study. PT tolerated well. First catheter inserted into vagina inadvertently. Second catheter inserted into urethra under sterile technique. Payne catheter 10 ml balloon deflated and catheter removed following the study. Pt given warm wipes to clean up with following.
== END ==
PROVIDERS: Family Provider Internal Medicine; PCP Internal Medicine; Referring Provider Urology; Visit Provider Urology
DX: N13.30 Unspecified hydronephrosis (principal); Q60.0 Renal agenesis, unilateral
CPT/HCPCS: 51600; 74176; 74455; Q9965

== ENCOUNTER → 2019-09-25 11:00 | Outpatient (CLI) | payer MEDICAID, SELFPAY ==
[2019-09-25 17:20] VITALS: BMI 19.3
[2019-09-26 11:48] LABS: Bacteria 0 SEEN /hpf (None Seen); Mucous, Urine 0 SEEN /hpf (<or=2+); Red Blood Cells-Urine 0 SEEN /hpf (0-5)
[2019-09-26 12:05] LABS: Color, Urine Yellow (Yellow); Glucose, Dipstick Normal (Normal); Ketone-Dipstick Negative (Negative); Leukocyte Esterase-Dipstick 25 /ul (Negative); Nitrite-Dipstick Negative (Negative); Occult Blood-Urine Negative /ul (Negative); Protein-Dipstick 100 mg/dl (Negative); Specific Gravity, Urine 1.015 (1.002-1.030); Urine Bilirubin Dipstick Negative (Negative); Urine Clarity Clear (Clear); Urine Urobilinogen Normal (Normal)
[2019-09-26 12:19] LABS: White Blood Cells 5-10 SEEN /hpf (0-5)
[2019-09-26 12:20] LABS: Squamous Epithelial Cells - UA 5-10 SEEN /hpf (5-10)
== END ==
PROVIDERS: PCP Internal Medicine; Visit Provider Internal Medicine
DX: N39.0 Urinary tract infection, site not specified (principal)
CPT/HCPCS: 81001; 87086

== ENCOUNTER → 2019-10-09 | Outpatient (CLI) | payer MEDICAID, SELFPAY ==
[2019-09-25 17:20] VITALS: BMI 19.3
[2019-10-09 15:45] LABS: Protein:Creat Ratio 605 mg/g CRE (0-200)
== END | disposition home or self-care (01) ==
LOC: LABSPEC 11:42
PROVIDERS: PCP Internal Medicine; Visit Provider Internal Medicine Nephrology
DX: Z90.5 Acquired absence of kidney (principal)
CPT/HCPCS: 82570; 84156

== ENCOUNTER 2019-11-21 16:14 | Emergency (ER) | payer MEDICAID, SELFPAY ==
[2019-09-25 17:20] VITALS: BMI 19.3
[2019-11-21 16:16] VITALS: BP 123/70; PULSE 91; RESP 12; TEMP 36.7; O2SAT 99; BMI 18.6
--- NOTE | 2019-11-21 16:27 | CT_ITS ---
STUDY: CT ABDOMEN AND PELVIS WITHOUT CONTRAST REASON FOR EXAM: Female, 29 years old. Nausea and vomiting. Hydronephrosis. Patient born with one kidney. History of stage IV Hodgkin''s disease and chronic hepatitis C. RADIATION DOSAGE (If Supplied By Facility): CTDIvol = ( 6.05 ) mGy, DLP = ( 288.80 ) mGycm TECHNIQUE: Transaxial images were obtained from the dome of the diaphragm to the symphysis pubis without oral contrast, and without intravenous contrast. Sagittal and coronal images were reconstructed. Individualized dose optimization techniques were used for this CT. COMPARISON: CT of the abdomen and pelvis, December 03, 2018. FINDINGS: The visualized lung bases are unremarkable. The visualized portions of the heart are within normal limits. Normal liver. Normal gallbladder and extrahepatic biliary system. The spleen is mildly enlarged. There is uniform in density. Normal pancreas. Normal bilateral adrenal glands. Absent right kidney. The left kidney is enlarged in size with lobulated contour. There is evidence of marked hydronephrosis and ureteral dilatation to the urinary bladder without filling defect. Normal visualized stomach. Normal small intestine. Air and feces is seen throughout the colon without mass or obstruction. The appendix is visualized and appears normal. Normal abdominal aorta. Normal inferior vena cava. Question small retroperitoneal lymph nodes. There is a soft tissue mass in the right pelvis anterior to the sacral and medial to the psoas muscle measuring 4.8 x 3.9 x 2.5 cm. There is a larger right pelvic immediately inferior to the first measuring 5.5 x 3.9 x 4.2 cm. Normal urinary bladder. The uterus appears grossly normal. There are cysts in the left ovary. There is a soft tissue density thought to represent the right ovary lying just posterior to the larger pelvic mass may be contiguous. No free air or free fluid is seen within the peritoneal cavity. Normal abdominal wall. Normal osseous structures. CT/Abdomen/Pelvis without Cont IMPRESSION: 1. Solitary left kidney with abnormal contour. There is marked hydronephrosis ureterectasis without filling defect. 2. Stable soft tissue masses in the right pelvis unchanged from previous study. Pelvic ultrasound may be of value for a CT scan with oral and IV contrast could be performed as recommended in the initial CT. 3. No other major interval change. Electronically Signed: Lonnie Squires DO at 18:07 EDT Tel [phone], Service support ,
--- NOTE | 2019-11-21 16:27 | EKG12_ITS ---
Test Reason : Blood Pressure : / mmHG Vent. Rate : 081 BPM Atrial Rate : 081 BPM P-R Int : 204 ms QRS Dur : 076 ms QT Int : 388 ms P-R-T Axes : 050 041 041 degrees QTc Int : 450 ms Normal sinus rhythm with sinus arrhythmia Normal ECG Confirmed by BERNADETTE MORALEZ ([id number]), order editor DANA MATIAS ([id number]) on 11/25/2019 11:16:12 AM Referred By: DC Confirmed By:BERNADETTE MORALEZ
--- NOTE | 2019-11-21 16:37 | ED.VISSUMM ---
- ER Visit Summary Date of Service: 11/21/19 Chief Complaint: Multiple complaints History of Present Illness: The patient is a 29 F with a history of congenital solitary kidney, hydronephrosis, Hodgkin's lymphoma in remission, hepatitis C, and IV drug abuse. She presents today from her doctor's office for an evaluation. She has been dealing with nausea, fatigue, near syncope, and weight loss for several weeks. Her urologist called. She has been dealing with increasing creatinine as well. She advised evaluation with labs and imaging, and that possibly the patient will need a stent. Patient also complains of dark vaginal bleeding--she has a Nexplanon implant for 3 months. Physical Examination: Afebrile and vital signs unremarkable. Patient in no acute distress. Alert and oriented. Heart regular rate. No respiratory distress. Abdomen soft. Skin appears normal. Test Results: EKG, labs, urine, chest x-ray, and CT abdomen/pelvis are pending. Emergency Department Course and Treatment: Patient was treated with IV fluids. Will assess as above. Hemoglobin 11.3, potassium 3.4, chloride 110, creatinine 1.60. Urine micro was unremarkable. hCG negative. Troponin normal. EKG showed sinus rhythm at a rate of 81. INR normal. CT abdomen showed an enlarged solitary kidney and a right pelvic mass which appears to be stable. 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 Patient was discussed with urology. She will need a stent but she and I feel this can be done as an outpatient basis. The patient agrees. Patient will be discharged. Urology will contact her tomorrow. If she does not hear anything, she should contact the office or self. Return for any complications. Treatment Plan: As above Disposition: Discharge Impression: Hydronephrosis This note was generated with [employer] dictation software. It may contain incorrect words, spelling, and punctuation that were not noted in review of the chart prior to signing ED Disposition - Plan for ED Patient: Referrals: Ramya Ferrer MD [Primary Care Provider] -
[2019-11-21] MEDS: 0.9% Normal Saline 1,000 ML 1000 ML IV (16:41)
[2019-11-21 17:09] LABS: Absolute Lymphocyte Count 1.95 X10^3/uL (0.83-4.51); Absolute Neutrophil Count 2.4 X10^3/uL (2.0-7.7); Basophil# 0.02 X10^3/uL; Basophil% 0.4 % (0-1); Eosinophils% 2.1 % (0-5); Hematocrit 34.8 % (37-47); Hemoglobin 11.3 g/dL (12.0-15.0); Lymphocyte # 1.95 X10^3/ul (4.0); Lymphocyte % 41.3 % (19-41); Mean Corp Hgb Conc 32.5 g/dL (32-36); Mean Corpuscular Hgb 28.3 pg (27.0-32.0); Mean Corpuscular Volume 87.2 fL (81-99); Mean Platelet Vol. 10.9 fl (6.2-12.0); Monocyte# 0.28 X10^3/uL; Monocyte% 5.9 % (0-10); NRBC Flagged by Analyzer 0 % (0-5); Neutrophil # 2.37 X10^3/uL (2.7-7.7); Neutrophil % 50.3 % (47-70); Platelet Count 188 K/mm3 (150-450); RBC Distribution Width CV 12.8 % (11.6-14.6); RBC Distribution Width SD 41.2 fl (35.1-43.9); Red Blood Count 3.99 M/mm3 (4.2-5.4); White Blood Count 4.7 K/mm3 (4.4-11.0)
[2019-11-21 17:14] LABS: Internal QC Validated? YES +Cl - CLEAR BKGD; Pregnancy, Serum, hCG Quali. NEGATIVE Negative
[2019-11-21 17:17] LABS: AST(SGOT) 30 U/L (15-37); Alanine Aminotransfer ALT/SGPT 55 U/L (13-56); Albumin, Serum 4.1 g/dL (3.2-5.0); Alkaline Phosphatase 68 U/L (45-117); Anion Gap 8 (5-15); BUN 18 mg/dL (7-18); BUN/Creat Ratio 11.2 RATIO (10-20); Calcium,Total 9.1 mg/dL (8.5-10.1); Chloride 110 mmol/L (98-107); EST Glomerular Filtration Rate 41 mL/min (>60); Est Glom Filt Rate - Afr Amer 49 mL/min (>60); Estimated Creatinine Clearance 46.77 ml/min; Globulin 4.1 g/dL (2.2-4.2); Glucose 77 mg/dL (74-106); Potassium 3.4 mmol/L (3.5-5.1); Protein, Total 8.2 g/dL (6.4-8.2); Sodium Level 141 mmol/L (136-145)
--- NOTE | 2019-11-21 17:25 | RAD_ITS ---
STUDY: X-RAY CHEST REASON FOR EXAM: Female, 29 years old. Nausea and vomiting. History of chronic hepatitis C. TECHNIQUE: Single AP portable view of the chest. COMPARISON: May 19, 2018. FINDINGS: The left are well expanded. There is chronic interstitial coarsening without new mass or infiltrate. There is no demonstrated pleural abnormality. Normal size heart. Normal mediastinum and cesar. Normal visualized pulmonary arteries. Normal visualized aortic arch and descending thoracic aorta. Normal visualized thoracic spine. Normal visualized ribs, clavicles, and shoulders. There is no demonstrated abnormality of the visualized soft tissue structures of the upper abdomen. RAD/Chest 1 View (Portable) IMPRESSION: No acute cardiopulmonary disease or interval change. Electronically Signed: Lonnie Squires DO at 18:09 EDT Tel [phone], Service support ,
[2019-11-21 18:43] LABS: Bacteria 0 SEEN /hpf (None Seen); Mucous, Urine 0 SEEN /hpf (<or=2+)
[2019-11-21 18:50] LABS: Color, Urine Yellow (Yellow); Glucose, Dipstick Normal (Normal); Ketone-Dipstick Negative (Negative); Leukocyte Esterase-Dipstick 25 /ul (Negative); Nitrite-Dipstick Negative (Negative); Occult Blood-Urine 150 /ul (Negative); Protein-Dipstick 30 mg/dl (Negative); Urine Bilirubin Dipstick Negative (Negative); Urine Clarity Clear (Clear); Urine Urobilinogen Normal (Normal)
[2019-11-21 19:02] LABS: White Blood Cells 0-5 SEEN /hpf (0-5)
[2019-11-21 19:03] LABS: Red Blood Cells-Urine 0-5 SEEN /hpf (0-5); Squamous Epithelial Cells - UA 0-5 SEEN /hpf (5-10)
--- NOTE | 2019-11-21 19:32 | US_ITS ---
STUDY: ULTRASOUND OF THE FEMALE PELVIS - COMPLETE REASON FOR EXAM: Female, 29 years old. Weight loss. Nausea. Right pelvic mass on CT. LMP: October 19, 2019. TECHNIQUE: Transvaginal TECHNICAL QUALITY: Adequate. COMPARISON: CT of the abdomen and pelvis, November 21, 2019. 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 The right uterus is anteverted and measures 7.0 x 3.6 x 2.7 cm. The endometrium is 7 mm in thickness and is hyperechoic. The left uterus is retroverted measuring 6.2 x 6.4 x 3.1 cm. The endometrium is 1 mm in thickness and is hyperechoic. There is no demonstrated endometrial mass. There is no demonstrated myometrial mass. I.U.D. - The patient does not have an I.U.D. The right ovary is visualized. The right ovary measures 2.3 x 2.5 x 1.7 cm. There are multiple follicles of the right ovary without a dominant cyst. There is no visualized right adnexal mass or complex lesion. There is normal arterial and normal venous vascularity. The left ovary is visualized. The left ovary measures 3.1 x 2.1 x 2.0 cm. There are multiple follicles of the left ovary without a dominant cyst. There is no visualized left adnexal mass or complex lesion. There is normal arterial and normal venous vascularity. There is minimal fluid in the cul-de-sac. US/Transvaginal Non- IMPRESSION: 1. Didelphys uterus. The mass seen in the right pelvis is thought to represent the 2 uterine described on ultrasound. 2. Normal ovaries. There is no evidence of right lower quadrant mass. Electronically Signed: Lonnie Squires DO at 21:04 EDT Tel [phone], Service support ,
[2019-11-21 20:51] LABS: International Normalized Ratio 1.1; Prothrombin Time (Protime)PT. 13.9 SECONDS (11.7-14.9)
--- NOTE | 2019-11-21 21:21 | ED.DEP ---
ED Disposition - Plan for ED Patient: Instructions: ED Nausea Vomiting Adult Referrals: Penelope Fairchild MD [STAFF PHYSICIAN] -
[2019-11-21 21:36] VITALS: BP 118/81; RESP 14; RESP 16
== END 2019-11-21 21:37 | disposition home or self-care (01) ==
LOC: ED 17:23
PROVIDERS: Emergency Provider Emergency Medicine; PCP Internal Medicine
DX: N13.30 Unspecified hydronephrosis (principal); B18.2 Chronic viral hepatitis C; Q51.20 Other doubling of uterus, unspecified; Q60.0 Renal agenesis, unilateral; R19.00 Intra-abdominal and pelvic swelling, mass and lump, unspecified site; N93.9 Abnormal uterine and vaginal bleeding, unspecified; Z85.71 Personal history of Hodgkin lymphoma
CPT/HCPCS: 71045; 74176; 76830; 80053; 81001; 84484; 84703; 85025; 85610; 93005; 99283; J7030; A4216

== ENCOUNTER 2019-11-26 09:33 | Day surgery (SDC) | payer MEDICAID, SELFPAY ==
[2019-11-26] VITALS (8 sets, daily range): BP systolic 82–131; BP diastolic 56–75; PULSE 44–68; RESP 14–16; TEMP 36.3–37.4; O2SAT 100; BMI 18.1
[2019-11-26 10:18] LABS: Internal QC Validated? YES +Cl - CLEAR BKGD
[2019-11-26 10:19] LABS: Pregnancy, Urine Negative Negative
[2019-11-26] MEDS: Lactated Ringers 1,000 ML 100 ML IV (10:24)
[2019-11-26] MEDS: Ciprofloxacin 400 MG/200 ML BAG 200 MG IV (10:25)
--- NOTE | 2019-11-26 10:33 | HP.PCM_ITS ---
Problem List (1) Hydronephrosis Status: Acute (2) Solitary kidney, congenital Status: Chronic History of Present Illness Date of Admission: 11/26/19 Chief Complaint: elevated creatinine, hydronephrosis, solitary kidney The patient is a 29 year old F with a congenital solitary left kidney. She was identified as having a left-sided hydronephrosis and was in the process of undergoing an evaluation when she left this geographical area and was admitted to a rehabilitation center near [place]. She is now returning having been clean for 8 months, and we are proceeding with evaluation and management of her hydronephrosis which has increased on imaging studies. Her creatinine however has remained stable at 1.6. Risks benefits and alternatives were discussed including that of COVID-19. She understands and has decided to proceed. 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) H91.92 Chronic headaches (Chronic) R51 Drug abuse (Acute) F19.10 Cancer (Resolved) C80.1 Remission - Hodgkins Asthma (Chronic) J45.909 Anemia (Chronic) D64.9 Seasonal allergies (Chronic) J30.2 Allergies ceftriaxone [From Rocephin] Allergy (Verified 11/26/19 10:10) Unknown ceftriaxone sodium [From Rocephin] Allergy (Verified 11/26/19 10:10) Hives droperidol Allergy (Verified 11/26/19 10:10) Unknown LAXATIVE Allergy (Uncoded 11/26/19 10:10) Unknown Home Medications: Ambulatory Orders Medication Instructions Recorded buprenorphine HCl 2 mg sublingual 2 mg SUBLINGUAL .TID tab 10/15/18 tablet Vitamin B-12 500 mcg PO DAILY #90 unit 01/30/19 cholecalciferol (vitamin D3) 50 2,000 unit PO DAILY #90 cap 06/07/19 mcg (2,000 unit) capsule ondansetron HCl 4 mg tablet 4 mg PO Q8H PRN #60 tab 09/25/19 aripiprazole 10 mg tablet 10 mg PO DAILY #60 tab 10/22/19 levothyroxine 137 mcg tablet 137 mcg PO DAILY #60 tab 10/22/19 sertraline 25 mg tablet 25 mg PO DAILY #90 tab 10/22/19 Etonogestrel [Nexplanon (Bkc)] 68 mg SQ DAILY 11/21/19 Surgical History: - Smoking Status: Current every day smoker Tobacco Use: Cigarettes - *Family History Maternal Family History: Family History (This Medical Record has been edited. Action required.) Mother Depression Hypertension Mental disorder Thyroid disorder Aunt Diabetes Grandfather Alcoholism Cancer History Items: Hypertension, - - diabetes Paternal Family History: Family History (This Medical Record has been edited. Action required.) Mother Depression Hypertension Mental disorder Thyroid disorder Aunt Diabetes Grandfather Alcoholism Cancer History Items: Cancer, - Review of Systems Constitutional: Reports: Anorexia, Malaise, Fatigue Eyes: Denies: Vision Change HEENT: Denies: Visual Changes Cardiovascular: Denies: Chest Pain, Chest Pressure Respiratory: Denies: Cough, Shortness of Breath Gastrointestinal: Reports: Nausea, Vomiting Genitourinary: Reports: Frequency, Urgency Gynecological: Denies: Sexual concerns Musculoskeletal: Denies: Muscle pain Skin: Denies: Wounds Neurological: Denies: Difficulty swallowing Psychiatric: Reports: Anxiety, Depression Endocrine: Reports: Change in Body Habitus VTE Information - Inpt Only VTE Present on Admission: Yes VTE Mechan Device Prophylaxis: SCD's VTE Pharm Prophylaxis ordered?: No Reason prophylaxis not ordered:: Treatment Not Indicated Patient Problems: Active and Suspected Problems (Last Reviewed 09/25/19 @ 17:16 by Marleni Bragg) Hydronephrosis (Acute) - Physical Exam Vitals/I&O's: Vital Signs Temp Pulse Resp BP Pulse Ox 98.6 F 64 15 106/71 100 11/26/19 10:11 11/26/19 10:11 11/26/19 10:11 11/26/19 10:11 11/26/19 10:11 Oxygen Delivery Method Room Air Weight: 55.7 kg Body Mass Index (BMI) 18.1 General: Alert, Oriented x3, No apparent distress HEENT: Atraumatic, Normocephalic Oral: Moist Mucosa Neck: Supple, Trachea Midline Lungs: Normal air movement Cardiovascular: Regular rate, Regular Rhythm Abdomen: Soft, Non Tender, Non-Distended Extremities: No edema Skin: No rashes Musculoskeletal: No Muscle Wasting Neurological: Cranial nerves II-XII grossly intact, Neuro grossly intact Psych/Mental Status: Anxious Laboratory Results 11/25/19 11:40: COVID-19 (LOLITA) Not Detected 11/26/19 10:00: Urine Test Negative Current Medications Lactated Ringer's () 1,000 mls @ 100 mls/hr IV .Q10H MABEL Last Admin: 11/26/19 10:24 Dose: 100 mls/hr Documented by: Assessment/Plan All Active Problems (Last Reviewed 09/25/19 @ 17:16 by Marleni Bragg) Hydronephrosis (Acute) Migraine (Acute) Drug abuse (Acute) Cancer (Resolved) demise > 22 weeks, delivered, current hospitalization (Acute) Cystoscopy, left retrograde pyelogram, possible ureteroscopy, left ureteral stent insertion Procedure Criteria Procedure Type: Essential Procedure Essential: Yes Criteria Statement: On 09/10/2019 the [facility] ([facility]) Public Order signed by [facility] Director Heather Ji M.D., regarding the Management of Non-Essential Surgeries and Procedures for the purpose of preserving Personal Protective Equipment (PPE) and critical hospital capacity and resources within [place] went into effect as of 09/11/2019 at 5:00PM. According to the [facility] Public Order: This action will re main in full force and effect until the State of Emergency declared by the Governor no longer exists or the Director of the [facility] rescinds or modifies this Order. This [facility] order stated all non-essential or elective surgeries and procedures that utilize PPE should be delayed unless there is undue risk to the current or future health of a patient. After reviewing the aforementioned [facility] Public Order and the patient's clinical case, I have determined that the scheduled procedure meets the criteria to go forward. Risk to Patient if Procedure Delayed: Threat of permanent dysfunction of an extremity or organ if delayed - Risk of renal failure secondary to obstruction of solitary kidney
--- NOTE | 2019-11-26 10:38 | PCM.OPRPT ---
Problem List (1) Hydronephrosis Status: Acute (2) Solitary kidney, congenital Status: Chronic Report of Operation Date of Procedure: 11/26/19 Pre-Operative Diagnosis: Congenital solitary left kidney, left hydronephrosis Post-Operative Diagnosis: Same Surgery/Procedure Performed:: Cystoscopy Type of Anesthesia:: General Special Medications: Methylene blue Specimen's removed: none Description of Procedure: Patient is a 29-year-old female who saw me in the office this past week, 1 year from the time we started her evaluation for left hydronephrosis. At this visit she had increased creatinine and complained of dizziness, nausea and vomiting. Laboratory studies were performed revealing, creatinine returned to baseline at 1.6. I discussed with the patient the evaluation for hydronephrosis and she agreed to proceed with evaluation under anesthesia with possible insertion of stent for drainage. Today preoperatively, mom is present. She reports a history some sort of reconstructive surgery occurring in 1991 in [place]. She cannot recall whether it was a ureteral reimplant or a pyeloplasty. We do not know what the baseline hydronephrosis is for this kidney. She was cared for through [facility] for a long period of time before being lost to follow-up. Patient did have a VCUG done last year which was negative for reflux. After this study, she was lost to follow-up. The risks benefits and alternatives were discussed with the patient and mom preoperatively including the risk of COVID-19. She understood and agreed to proceed. Patient was taken to the operating room and placed on the operating room table. Anesthesia monitored the head, neck, airway, IV access and vital signs throughout the case. Once anesthesia was appropriately administered, the patient was placed into dorsal lithotomy position was prepped and draped in usual sterile fashion. A cystourethroscopy through the urethra was then performed. There was urine in the urinary bladder and this was emptied. The area of the trigone was not anatomically normal. There is evidence of a ureteral orifice essentially in the midline. She also has diffuse cystitis cystica present. Attempt was made to inject contrast in retrograde fashion through the area consistent with a ureteral opening. The contrast remained in the urinary bladder. I gave her methylene blue intravenously and we waited for 15 minutes with no blue extravasation. I emptied her bladder and the case was terminated. The patient was taken to the recovery room in good condition. I will be referring the patient to [facility] for further evaluation and management. I discussed with mom that this may be her baseline and that she will need some further studies to determine the actual drainage situation of her left kidney. Mom understands. Grafts/Implants Used: none - Complications none - Admit VTE Documentation VTE Present on Admission: Yes VTE Mechan Device Prophylaxis: SCD's VTE Pharm Prophylaxis ordered?: No Reason prophylaxis not ordered:: Treatment Not Indicated
--- NOTE | 2019-11-26 13:06 | PCM.DC.URO ---
Discharge Diet: Renal Diet Discharge Activity: Return to Normal Activity, [address] - after 24hrs Call your doctor if you observe: Fever of 101 or Higher, Inability to urinate, Inability to have a bowel movement Allergies/Adverse Reactions: Allergies ceftriaxone [From Rocephin] Allergy (Verified 11/26/19 10:10) Unknown ceftriaxone sodium [From Rocephin] Allergy (Verified 11/26/19 10:10) Hives droperidol Allergy (Verified 11/26/19 10:10) Unknown LAXATIVE Allergy (Uncoded 11/26/19 10:10) Unknown Medications to take at Discharge buprenorphine HCl 2 mg sublingual tablet 2 mg SUBLINGUAL .TID tab 10/15/18 Vitamin B-12 500 mcg PO DAILY #90 unit 01/30/19 cholecalciferol (vitamin D3) 50 mcg (2,000 unit) capsule 2,000 unit PO DAILY #90 cap 06/07/19 ondansetron HCl 4 mg tablet 4 mg PO Q8H PRN #60 tab 09/25/19 aripiprazole 10 mg tablet 10 mg PO DAILY #60 tab 10/22/19 levothyroxine 137 mcg tablet 137 mcg PO DAILY #60 tab 10/22/19 sertraline 25 mg tablet 25 mg PO DAILY #90 tab 10/22/19 Etonogestrel [Nexplanon (Bkc)] 68 mg SQ DAILY 11/21/19 Phenazopyridine HCl [Pyridium] 200 mg PO TID PRN PRN 7 Days #30 tab 11/26/19 Smz/Tmp Ds [Bactrim Ds] 1 tab PO BID 3 Days #6 tab 11/26/19 The following prescriptions were given: Smz/Tmp Ds [Bactrim Ds] 1 tab PO BID 3 Days #6 tab Transmission Status: Received by [facility] Phenazopyridine HCl [Pyridium] 200 mg PO TID PRN PRN 7 Days #30 tab PRN Reason: Bladder Spasms Transmission Status: Received by [facility] Orders to be completed after discharge: CORONAVIRUS 19, LOLITA SCREEN Time Frame: 11/25/19, Facility: [facility], Location: Laboratory Primary Care Physician: Ramya Ferrer MD [Primary Care Provider] - Test Results: Test results from this visit will be discussed in further detail at your follow-up appointment, if applicable. Please Follow Up With: Penelope Fairchild MD When: call office for referral instructions Proposed Discharge Date: 11/26/19
[2019-11-26] MEDS: Phenazopyridine 95 MG Tablet 190 MG PO (14:00)
== END 2019-11-26 14:13 | disposition home or self-care (01) ==
LOC: SDC 09:34 → AC 09:35
PROVIDERS: PCP Internal Medicine; Referring Provider Urology; Visit Provider Urology
PROC: 0TJ98ZZ Inspection of Ureter, Via Natural or Artificial Opening Endoscopic (ICD-10-PCS; CPT 52352; principal; 2019-11-26 11:35)
DX: N30.80 Other cystitis without hematuria (principal); N13.30 Unspecified hydronephrosis; Q60.0 Renal agenesis, unilateral; F17.210 Nicotine dependence, cigarettes, uncomplicated; B19.20 Unspecified viral hepatitis C without hepatic coma; Z85.71 Personal history of Hodgkin lymphoma; E03.9 Hypothyroidism, unspecified; B18.2 Chronic viral hepatitis C; N18.3 Chronic kidney disease, stage 3 (moderate); F31.9 Bipolar disorder, unspecified; Z88.1 Allergy status to other antibiotic agents; Z83.3 Family history of diabetes mellitus; Z82.49 Family history of ischemic heart disease and other diseases of the circulatory system; Z11.59 Encounter for screening for other viral diseases
CPT/HCPCS: 52000; 76000; 81025; 87635; G2023; J7120; J0744; Q9968; U0003

== ENCOUNTER → 2020-01-23 09:42 | Outpatient (CLI) | payer MEDICAID, SELFPAY ==
[2019-11-26 10:11] VITALS: BMI 18.1
[2020-01-23 12:42] LABS: Hematocrit 39.7 % (37-47); Hemoglobin 12.5 g/dL (12.0-15.0); Mean Corp Hgb Conc 31.5 g/dL (32-36); Mean Corpuscular Hgb 28.4 pg (27.0-32.0); Mean Corpuscular Volume 90.2 fL (81-99); Mean Platelet Vol. 11.5 fl (6.2-12.0); Platelet Count 187 K/mm3 (150-450); RBC Distribution Width CV 12.8 % (11.6-14.6); RBC Distribution Width SD 41.9 fl (35.1-43.9); White Blood Count 3.8 K/mm3 (4.4-11.0)
[2020-01-23 12:53] LABS: Albumin, Serum 3.9 g/dL (3.2-5.0); BUN 19 mg/dL (7-18); BUN/Creat Ratio 10.7 RATIO (10-20); Calcium,Total 9.4 mg/dL (8.5-10.1); Chloride 110 mmol/L (98-107); Creatinine, Serum 1.77 mg/dL (0.55-1.02); EST Glomerular Filtration Rate 36 mL/min (>60); Est Glom Filt Rate - Afr Amer 44 mL/min (>60); Glucose 102 mg/dL (74-106); Phosphorus 3.3 mg/dL (2.5-4.9); Sodium Level 139 mmol/L (136-145)
[2020-01-23 13:08] LABS: Vitamin D,25 Hydroxy 43.5 ng/mL
[2020-01-23 13:13] LABS: PTHIN 54.1 pg/mL (18.4-80.1)
== END ==
PROVIDERS: PCP Internal Medicine; Visit Provider Internal Medicine Nephrology
DX: N18.3 Chronic kidney disease, stage 3 (moderate) (principal); E55.9 Vitamin D deficiency, unspecified; D64.9 Anemia, unspecified; Z85.71 Personal history of Hodgkin lymphoma
CPT/HCPCS: 36415; 80069; 82306; 83970; 85027; 86335

== ENCOUNTER 2020-05-19 19:10 | Emergency (ER) | payer MEDICAID, SELFPAY ==
[2020-05-19 19:10] VITALS: BP 125/63; PULSE 102; RESP 18; TEMP 36.2; O2SAT 100; BMI 21.5
--- NOTE | 2020-05-19 20:00 | ED.DCSUM_ITS ---
History of Present Illness Chief Complaint: Lower Extremity Injury Informant: Patient Onset: Weeks Context: Gradual Onset Current Severity: Moderate Maximum Severity: Moderate Narrative: Patient presents with pain and swelling to her bilateral large toes. Patient denies any recent trauma. She states the area just proximal to her nails will become red and quite swollen and then will somewhat go down. - Past Medical History (1) History of Hodgkin's lymphoma Status: Chronic (2) Migraine Status: Chronic (3) Solitary kidney, congenital Status: Chronic (4) Bipolar 1 disorder Status: Chronic (5) Hepatitis C Status: Chronic (6) Asthma Status: Chronic (7) Anemia Status: Chronic Past Medical History - Allergies and Home Meds Allergies/Adverse Reactions: Allergies ceftriaxone [From Rocephin] Allergy (Verified 11/26/19 10:10) Unknown ceftriaxone sodium [From Rocephin] Allergy (Verified 11/26/19 10:10) Hives droperidol Allergy (Verified 11/26/19 10:10) Unknown LAXATIVE Allergy (Uncoded 11/26/19 10:10) Unknown Primary Care Physician: Ramya Ferrer MD [Primary Care Provider] - Prior records reviewed: Yes Surgical History: - Smoking Status: Current every day smoker - Family History Maternal Family History: Family History (This Medical Record has been edited. Action required.) Mother Depression Hypertension Mental disorder Thyroid disorder Aunt Diabetes Grandfather Alcoholism Cancer Family History: Reports: Hypertension, - - diabetes Paternal Family History: Family History (This Medical Record has been edited. Action required.) Mother Depression Hypertension Mental disorder Thyroid disorder Aunt Diabetes Grandfather Alcoholism Cancer Family History: Reports: Cancer, - Review of Systems General: Denies: Chills, Fever Eyes: Denies: Visual changes - bilaterally ENT: Denies: Bilateral ear pain Cardiovascular: Denies: Chest pain Respiratory: Denies: Dyspnea, Cough Gastrointestinal: Denies: Abdominal pain Musculoskeletal: Reports: Swelling, Extremity Pain Neurological: Denies: Headache, Weakness Hematologic: Denies: Easy bruising, Easy bleeding Allergy: Denies: Uticaria Physical Exam Vital Signs/Narrative: Vital Signs Temp Pulse Resp BP Pulse Ox 05/19/20 19:10 97.2 F L 102 H 18 125/63 H 100 Inital Vital Signs reviewed: Yes General: Well nourished, Well developed Head: Normocephalic ENT: Moist mucous membranes Neck: Supple Cardiovascular: Regular rate, Regular rhythm Respiratory: No distress, CTA bilaterally Abdomen: Soft, Nontender Extremities: - - Right lower extremity examination reveals erythema and edema just proximal to the right great toe nailbed consistent with paronychia. There is mild erythema streak on the foot. No open wounds are noted. Skin: - - Left lower extremity examination feels mild erythema and minimal edema just proximal to the nailbed. No fluctuance noted to the left toe. Neurological: Alert, Oriented x3 Psychological: Normal affect Diagnostic/Tx/Re-eval - Medical Decision Making Patient was consented for incision and drainage of the right great toe paronychia. 3 cc 1% lidocaine are used in a digital block. Patient does r eceive good anesthesia. A 1 cm incision with a #11 blade is made across the fluctuant area just proximal to the nail bed. There is return of blood and pus. Wound is cleansed and dressed. Patient be treated with a course of doxycycline and referred to Dr. Pruitt, on-call for podiatry. Patient is given return instructions. ED Disposition - Plan for ED Patient: Disposition: Home or Assisted Living Diagnosis: Paronychia Instructions: ED FINGERNAIL INFECTION Prescriptions: Doxycycline 100 mg PO BID #20 cap Transmission Status: Pending to [facility] Referrals: Ramya Ferrer MD [Primary Care Provider] - Maria Esther Pruitt DPM [STAFF PHYSICIAN] - As soon as possible
[2020-05-19] MEDS: Doxycycline 100 MG CAPSULE PO (20:21)
[2020-05-19 21:17] VITALS: BP 127/59; PULSE 67; RESP 14; O2SAT 98
[2020-05-19] MEDS: Lidocaine 1% (20 ml mdv) 20 ML Vial INFILT (21:18)
== END 2020-05-19 21:19 | disposition home or self-care (01) ==
PROVIDERS: Emergency Provider Emergency Medicine; PCP Internal Medicine
DX: L03.031 Cellulitis of right toe (principal); F17.200 Nicotine dependence, unspecified, uncomplicated; F31.9 Bipolar disorder, unspecified; J45.909 Unspecified asthma, uncomplicated; Z82.49 Family history of ischemic heart disease and other diseases of the circulatory system; Z83.3 Family history of diabetes mellitus; Z85.71 Personal history of Hodgkin lymphoma; Z88.1 Allergy status to other antibiotic agents; D64.9 Anemia, unspecified; Q60.0 Renal agenesis, unilateral; B18.2 Chronic viral hepatitis C
CPT/HCPCS: 10060; 99283

== ENCOUNTER → 2020-05-28 18:01 | Outpatient (CLI) | payer MEDICAID, SELFPAY ==
[2020-05-19 19:10] VITALS: BMI 21.5
== END ==
PROVIDERS: PCP Internal Medicine; Referring Provider Podiatrist; Visit Provider Podiatrist
DX: L03.031 Cellulitis of right toe (principal)
CPT/HCPCS: 87070; 87075; 87077; 87186; 87205

== ENCOUNTER 2020-06-11 13:11 | Emergency (ER) | payer MEDICAID, SELFPAY ==
[2020-06-11 13:12] VITALS: BP 130/91; PULSE 85; RESP 16; TEMP 37.2; O2SAT 100; BMI 19.9
[2020-06-11 14:23] LABS: Internal QC Validated? YES +Cl - CLEAR BKGD; Mucous, Urine 0 SEEN /hpf (<or=2+); Red Blood Cells-Urine 0 SEEN /hpf (0-5)
[2020-06-11 14:26] LABS: Color, Urine Yellow (Yellow); Glucose, Dipstick Normal (Normal); Ketone-Dipstick Negative (Negative); Leukocyte Esterase-Dipstick Negative /ul (Negative); Nitrite-Dipstick Negative (Negative); Occult Blood-Urine Negative /ul (Negative); Protein-Dipstick 100 mg/dl (Negative); Urine Bilirubin Dipstick Negative (Negative); Urine Clarity Sl. Cloudy (Clear); Urine Urobilinogen Normal (Normal)
[2020-06-11 14:29] LABS: Pregnancy, Urine Negative Negative
--- NOTE | 2020-06-11 14:32 | ED.VIS.GEN ---
History of Present Illness Narrative: Patient presenting for evaluation secondary to headache, fever, chills, generalized malaise with nausea vomiting and diarrhea. Patient reports that the symptoms have been going on intermittently over the course about the last 2 weeks, but her temperatures appear to be rising. T-max is around 100.5. Patient states that she has been having some nonbloody nonbilious emesis as well as some mild loose stools. She denies any C. difficile risk factors. Patient denies any history of immunosuppression. Patient denies any sick contacts. She is not short of breath. She is not been coughing. Patient presented to the emergency department today because her mother told her that she might be dehydrated. <Smooth Polk - Last Filed: 06/11/20 14:59> <Anderson Mckeon - Last Filed: 06/11/20 17:03> Chief Complaint: General Illness Past Medical History Prior records reviewed: Yes Past Medical History: - - Bipolar, polysubstance abuse, hypothyroidism, past history of Hodgkin's lymphoma Surgical History: - Lives: With Family Smoking Status: Current every day smoker Alcohol: Occasional Drugs: - - Past history of polysubstance abuse - Family History Maternal Family History: Family History (This Medical Record has been edited. Action required.) Mother Depression Hypertension Mental disorder Thyroid disorder Aunt Diabetes Grandfather Alcoholism Cancer Family History: Reports: Hypertension, - - diabetes Paternal Family History: Family History (This Medical Record has been edited. Action required.) Mother Depression Hypertension Mental disorder Thyroid disorder Aunt Diabetes Grandfather Alcoholism Cancer Family History: Reports: Cancer, - <Smooth Polk - Last Filed: 06/11/20 14:59> - Family History Maternal Family History: Family History (This Medical Record has been edited. Action required.) Mother Depression Hypertension Mental disorder Thyroid disorder Aunt Diabetes Grandfather Alcoholism Cancer Paternal Family History: Family History (This Medical Record has been edited. Action required.) Mother Depression Hypertension Mental disorder Thyroid disorder Aunt Diabetes Grandfather Alcoholism Cancer <Anderson Mckeon - Last Filed: 06/11/20 17:03> - Allergies and Home Meds Allergies/Adverse Reactions: Allergies ceftriaxone [From Rocephin] Allergy (Verified 11/26/19 10:10) Unknown ceftriaxone sodium [From Rocephin] Allergy (Verified 11/26/19 10:10) Hives droperidol Allergy (Verified 11/26/19 10:10) Unknown LAXATIVE Allergy (Uncoded 11/26/19 10:10) Unknown Primary Care Physician: Ramya Ferrer MD [Primary Care Provider] - Review of Systems General: Reports: Fever, Malaise Eyes: Denies: Visual changes - bilaterally, Diplopia ENT: Denies: Rhinorrhea, Sore throat Cardiovascular: Denies: Chest pain, Palpitations Respiratory: Denies: Dyspnea, Cough, Dyspnea on exertion Gastrointestinal: Reports: Nausea, Vomiting, Diarrhea Genitourinary: Denies: Dysuria, Hematuria, Frequency Musculoskeletal: Denies: Back pain, Extremity Pain Skin: Denies: Rash, Wounds Neurological: Denies: Headache, Weakness, Numbness <Smooth Polk - Last Filed: 06/11/20 14:59> Physical Exam Vital Signs/Narrative: Vital Signs Temp Pulse Resp BP Pulse Ox 06/11/20 13:12 98.9 F 85 16 130/91 H 100 Inital Vital Signs reviewed: Yes General: Well nourished, Well developed, No Acute Distress Head: Normocephalic, Atraumatic Eyes: Perrl, EOMI ENT: Moist mucous membranes, No rhinorrhea Neck: Supple, Nontender Cardiovascular: Regular rate, Regular rhythm, No murmurs Respiratory: No distress, CTA bilaterally, Chest nontender Abdomen: Soft, Nontender, Nondistended, Normal bowel sounds Back: Nontender, Normal Inspection Extremities: Nontender, No edema Skin: Normal color, No rash Neurological: Alert, Oriented x3, Cranial nerves II-XII grossly intact, Normal Strength, Normal Sensation Psychological: Normal affect, Normal Mood <Smooth Polk - Last Filed: 06/11/20 14:59> Vital Signs/Narrative: Vital Signs Temp Pulse Resp BP Pulse Ox 06/11/20 16:00 98.9 F 79 18 129/76 H 99 06/11/20 15:18 79 18 129/76 H 99 06/11/20 15:07 98.9 F 85 16 130/91 H 100 06/11/20 13:12 98.9 F 85 16 130/91 H 100 <Anderson Mckeon - Last Filed: 06/11/20 17:03> Diagnostic/Tx/Re-eval - Medical Decision Making Patient presented secondary to nausea vomiting diarrhea and generalized illness. She does have an underlying medical history, so work-up was obtained. CBC unremarkable, chemistry pending. Urinalysis negative. Coronavirus testing was sent and is pending. She is oxygenating normally. She was given fluids and Zofran. Patient will be turned over to the oncoming provider who will follow up on the patient's chemistries and likely disposition the patient home with continued supportive care. <Smooth Polk - Last Filed: 06/11/20 14:59> Abnormal Lab Results 06/11/20 06/11/20 06/11/20 14:20 14:20 14:20 WBC 5.2 RBC 4.23 Hgb 12.2 Hct 37.9 MCV 89.6 MCH 28.8 MCHC 32.2 RDW Std Deviation 40.1 RDW Coeff of Maki 12.4 Plt Count 188 MPV 10.6 Immature Gran % (Auto) 0.400 Neut % (Auto) 55.8 Lymph % (Auto) 34.2 Ingham % (Auto) 7.6 Eos % (Auto) 1.4 Baso % (Auto) 0.6 Absolute Neuts (auto) 2.9 Absolute Lymphs (auto) 1.76 Nucleated RBC % 0 Sodium 145 Potassium 3.4 L Chloride 112 H Carbon Dioxide 27.0 Anion Gap 6 BUN 21 H Creatinine 1.63 H Estim Creat Clear Calc 49.23 Est GFR (MDRD) Af Amer 48 L Est GFR (MDRD) Non-Af 40 L BUN/Creatinine Ratio 12.9 Glucose 70 L Calcium 9.0 Urine Color Yellow Urine Clarity Sl. Cloudy Urine pH 7.0 Ur Specific Felicity 1.010 Urine Protein 100 H Urine Glucose (UA) Normal Urine Ketones Negative Urine Occult Blood Negative Urine Nitrite Negative Urine Bilirubin Negative Urine Urobilinogen Normal Ur Leukocyte Esterase Negative Urine RBC 0 SEEN Urine WBC 0-5 SEEN Ur Squamous Epith Cells 5-10 SEEN Urine Bacteria RARE Urine Mucus 0 SEEN Urine Test Negative - Medical Decision Making Patient signed out to me pending lab work. Lab work all stable white count normal. Creatinine 1.6 is stable from previous labs she reports she has stage III chronic kidney disease from being born with a congenital single kidney she does follow a specialist. But no vomiting or diarrhea in the ED. Covid testing is pending as an outpatient test. Prescription of Zofran to use as needed. Signs and symptom discussed to return. Patient is being discharged under pandemic conditions under declared global, national and state disaster activation, with limited medical resources. Patient and community understands this. Results discussed in layman's terms to the patient satisfaction. All questions answered in layman's terms. Patient understands importance of follow-up care as directed. Patient has been instructed to return to the ED immediately if new symptoms, problems, or questions occur. We mutually agree with the plan of disposition. The patient understand that they may call or return with any questions or concerns at any time. <Anderson Mckeon - Last Filed: 06/11/20 17:03> ED Disposition <Smooth Polk - Last Filed: 06/11/20 14:59> <Anderson Mckeon - Last Filed: 06/11/20 17:03> - Plan for ED Patient: Disposition: Home or Assisted Living Diagnosis: Vomiting and diarrhea, Suspected COVID-19 virus infection Instructions: Coronavirus Disease 2019 (COVID-19): Overview, ED Vomiting and Diarrhea ... Prescriptions: Ondansetron [Zofran Odt] 8 mg PO Q8H PRN PRN #10 tab PRN Reason: Nausea Transmission Status: Pending to [facility] Referrals: Ramya Ferrer MD [Primary Care Provider] - 3-5 Days if not improving
[2020-06-11 14:36] LABS: Bacteria RARE /hpf (None Seen); Squamous Epithelial Cells - UA 5-10 SEEN /hpf (5-10); White Blood Cells 0-5 SEEN /hpf (0-5)
[2020-06-11 14:53] LABS: Absolute Lymphocyte Count 1.76 X10^3/uL (0.83-4.51); Absolute Neutrophil Count 2.9 X10^3/uL (2.0-7.7); Basophil# 0.03 X10^3/uL; Basophil% 0.6 % (0-1); Eosinophil# 0.07 X10^3/uL; Eosinophils% 1.4 % (0-5); Hematocrit 37.9 % (37-47); Hemoglobin 12.2 g/dL (12.0-15.0); Lymphocyte # 1.76 X10^3/ul (4.0); Lymphocyte % 34.2 % (19-41); Mean Corp Hgb Conc 32.2 g/dL (32-36); Mean Corpuscular Hgb 28.8 pg (27.0-32.0); Mean Corpuscular Volume 89.6 fL (81-99); Mean Platelet Vol. 10.6 fl (6.2-12.0); Monocyte# 0.39 X10^3/uL; Monocyte% 7.6 % (0-10); NRBC Flagged by Analyzer 0 % (0-5); Neutrophil # 2.88 X10^3/uL (2.7-7.7); Neutrophil % 55.8 % (47-70); Platelet Count 188 K/mm3 (150-450); RBC Distribution Width CV 12.4 % (11.6-14.6); RBC Distribution Width SD 40.1 fl (35.1-43.9); Red Blood Count 4.23 M/mm3 (4.2-5.4); White Blood Count 5.2 K/mm3 (4.4-11.0)
[2020-06-11 15:07] VITALS: BP 130/91; PULSE 85; RESP 16; TEMP 37.2; O2SAT 100
[2020-06-11 15:08] LABS: Anion Gap 6 (5-15); BUN 21 mg/dL (7-18); BUN/Creat Ratio 12.9 RATIO (10-20); Chloride 112 mmol/L (98-107); Creatinine, Serum 1.63 mg/dL (0.55-1.02); EST Glomerular Filtration Rate 40 mL/min (>60); Est Glom Filt Rate - Afr Amer 48 mL/min (>60); Estimated Creatinine Clearance 49.23 ml/min; Glucose 70 mg/dL (74-106); Potassium 3.4 mmol/L (3.5-5.1); Sodium Level 145 mmol/L (136-145)
[2020-06-11] MEDS: Ondansetron 4 MG/2 ML Vial IV (15:09)
[2020-06-11] MEDS: 0.9% Normal Saline 1,000 ML 1000 ML IV (15:09)
[2020-06-11 15:18] VITALS: BP 129/76; PULSE 79; RESP 18; O2SAT 99
[2020-06-11 16:00] VITALS: BP 129/76; PULSE 79; RESP 18; TEMP 37.2; O2SAT 99
[2020-06-11 17:00] VITALS: BP 130/79; PULSE 73; PULSE 74; RESP 18; TEMP 36.8; O2SAT 97
[2020-06-11 17:17] VITALS: PULSE 69; O2SAT 99
== END 2020-06-11 17:17 | disposition home or self-care (01) ==
PROVIDERS: Emergency Medicine; Emergency Provider Emergency Medicine; PCP Internal Medicine
DX: R11.2 Nausea with vomiting, unspecified (principal); R19.7 Diarrhea, unspecified; R50.9 Fever, unspecified; R51.9 Headache, unspecified; E03.9 Hypothyroidism, unspecified; Z20.828 Contact with and (suspected) exposure to other viral communicable diseases; Z85.71 Personal history of Hodgkin lymphoma; F17.200 Nicotine dependence, unspecified, uncomplicated
CPT/HCPCS: 80048; 81001; 81025; 85025; 87635; 99285; J7030; A4216; J2405; U0003

== ENCOUNTER → 2020-06-17 14:15 | Outpatient (CLI) | payer MEDICAID, SELFPAY ==
[2020-06-17 16:40] LABS: ALB/GLOB Ratio 0.8 RATIO (0.9-2.4); AST(SGOT) 72 U/L (15-37); Alanine Aminotransfer ALT/SGPT 161 U/L (13-56); Albumin, Serum 3.9 g/dL (3.2-5.0); Alkaline Phosphatase 93 U/L (45-117); Anion Gap 7 (5-15); BUN 23 mg/dL (7-18); BUN/Creat Ratio 15.2 RATIO (10-20); Calcium,Total 9.4 mg/dL (8.5-10.1); Chloride 110 mmol/L (98-107); Creatinine, Serum 1.51 mg/dL (0.55-1.02); EST Glomerular Filtration Rate 43 mL/min (>60); Est Glom Filt Rate - Afr Amer 52 mL/min (>60); Globulin 4.8 g/dL (2.2-4.2); Glucose 79 mg/dL (74-106); Potassium 3.8 mmol/L (3.5-5.1); Protein, Total 8.7 g/dL (6.4-8.2); Sodium Level 142 mmol/L (136-145)
[2020-06-17 16:45] LABS: Free T3 2.4 pg/mL (2.18-3.98); Thyroid Stim Hormone (TSH) 4.88 uIU/mL (0.358-3.74)
[2020-06-18 06:40] LABS: SARS-COV-2 TOTAL ABS Nonreactive (Nonreactive)
[2020-06-20 20:07] LABS: HCV Quant. RNA PCR HCV Not Detected IU/mL (.)
== END ==
PROVIDERS: PCP Internal Medicine; Referring Provider Internal Medicine; Visit Provider Internal Medicine
DX: R19.7 Diarrhea, unspecified (principal); R50.9 Fever, unspecified; B19.20 Unspecified viral hepatitis C without hepatic coma; R53.81 Other malaise; R53.83 Other fatigue
CPT/HCPCS: 36415; 80053; 84439; 84443; 84481; 86769; 87506; 87521; 87522; 87635; U0003

== ENCOUNTER → 2020-06-23 16:29 | Outpatient (CLI) | payer MEDICAID, SELFPAY ==
[2019-11-26 10:11] VITALS: BMI 18.1
[2020-06-11 13:12] VITALS: BMI 19.9
[2020-06-23 17:06] LABS: Absolute Lymphocyte Count 1.65 X10^3/uL (0.83-4.51); Absolute Neutrophil Count 2.7 X10^3/uL (2.0-7.7); Basophil# 0.03 X10^3/uL; Basophil% 0.6 % (0-1); Eosinophils% 2.1 % (0-5); Hemoglobin 12.8 g/dL (12.0-15.0); Lymphocyte # 1.65 X10^3/ul (4.0); Lymphocyte % 34.4 % (19-41); Mean Corpuscular Hgb 29.2 pg (27.0-32.0); Mean Corpuscular Volume 91.3 fL (81-99); Monocyte# 0.33 X10^3/uL; Monocyte% 6.9 % (0-10); NRBC Flagged by Analyzer 0 % (0-5); Neutrophil # 2.66 X10^3/uL (2.7-7.7); Neutrophil % 55.6 % (47-70); Platelet Count 196 K/mm3 (150-450); RBC Distribution Width CV 12.7 % (11.6-14.6); RBC Distribution Width SD 41.8 fl (35.1-43.9); Red Blood Count 4.38 M/mm3 (4.2-5.4); White Blood Count 4.8 K/mm3 (4.4-11.0)
[2020-06-23 17:19] LABS: Prothrombin Time (Protime)PT. 12.3 SECONDS (11.7-14.9)
[2020-06-23 17:52] LABS: ALB/GLOB Ratio 0.8 RATIO (0.9-2.4); AST(SGOT) 45 U/L (15-37); Alanine Aminotransfer ALT/SGPT 108 U/L (13-56); Albumin, Serum 3.5 g/dL (3.2-5.0); Alkaline Phosphatase 90 U/L (45-117); Anion Gap 7 (5-15); BUN 20 mg/dL (7-18); BUN/Creat Ratio 14.3 RATIO (10-20); Bilirubin, Direct 0.05 mg/dL (0.00-0.30); Calcium,Total 8.6 mg/dL (8.5-10.1); Chloride 114 mmol/L (98-107); EST Glomerular Filtration Rate 47 mL/min (>60); Est Glom Filt Rate - Afr Amer 57 mL/min (>60); Globulin 4.3 g/dL (2.2-4.2); Glucose 82 mg/dL (74-106); Phosphorus 4.2 mg/dL (2.5-4.9); Potassium 3.7 mmol/L (3.5-5.1); Protein, Total 7.8 g/dL (6.4-8.2); Sodium Level 145 mmol/L (136-145)
[2020-06-23 17:57] LABS: Protein, Urine (Random) 195.8 mg/dL (<11.9); Protein:Creat Ratio 3210 mg/g CRE (0-200)
[2020-06-24 09:24] LABS: HIV - WCH Non-Reactive (Nonreactive); Hepatitis B Surface Antibody Non-Reactive; Hepatitis B Surface Antigen Non-Reactive (Nonreactive)
[2020-06-25 03:40] LABS: Rapid Plasmin Reagin (RPR) NONREACTIVE (NONREACTIVE)
[2020-06-27 20:07] LABS: Comment 1a (.); HCV Quant. RNA PCR 199000 IU/mL (.); Hepatitis A AB, Total Negative (Negative); Hepatitis B Core Ab Total Negative (Negative)
[2020-06-27 20:42] LABS: HCV log 10 5.299 (.); Hepatitis B Core AB IgM Negative (Negative)
== END ==
PROVIDERS: PCP Internal Medicine; Visit Provider Internal Medicine Nephrology
DX: N18.30 Chronic kidney disease, stage 3 unspecified (principal); R80.9 Proteinuria, unspecified; B18.2 Chronic viral hepatitis C; R74.01 Elevation of levels of liver transaminase levels
CPT/HCPCS: 36415; 80053; 82248; 82570; 84100; 84156; 85025; 85610; 86592; 86703; 86704; 86705; 86706; 86708; 87340; 87522; 87902

== ENCOUNTER → 2020-07-16 09:35 | Outpatient (CLI) | payer MEDICAID, SELFPAY ==
[2020-07-16 12:25] LABS: Protein, Urine (Random) 169.2 mg/dL (<11.9); Protein:Creat Ratio 1785 mg/g CRE (0-200); Vitamin D,25 Hydroxy 22.9 ng/mL
[2020-07-16 12:42] LABS: PTHIN 84.8 pg/mL (18.4-80.1)
== END ==
PROVIDERS: PCP Internal Medicine; Visit Provider Internal Medicine Nephrology
DX: N18.30 Chronic kidney disease, stage 3 unspecified (principal); R80.9 Proteinuria, unspecified; E55.9 Vitamin D deficiency, unspecified
CPT/HCPCS: 36415; 82306; 82570; 83970; 84156

== ENCOUNTER → 2020-08-19 11:16 | Outpatient (CLI) | payer MEDICAID, SELFPAY ==
[2020-08-19 10:53] VITALS: BMI 21.9
== END ==
PROVIDERS: PCP Internal Medicine; Referring Provider Internal Medicine; Visit Provider Internal Medicine
DX: E03.9 Hypothyroidism, unspecified (principal)
CPT/HCPCS: 36415; 84443

== ENCOUNTER → 2020-09-23 15:59 | Outpatient (CLI) | payer MEDICAID, SELFPAY ==
[2020-08-19 10:53] VITALS: BMI 21.9
[2020-09-23 16:50] LABS: Hematocrit 39.1 % (37-47); Hemoglobin 12.7 g/dL (12.0-15.0); Mean Corp Hgb Conc 32.5 g/dL (32-36); Mean Corpuscular Hgb 28.6 pg (27.0-32.0); Mean Corpuscular Volume 88.1 fL (81-99); Mean Platelet Vol. 10.9 fl (6.2-12.0); Platelet Count 199 K/mm3 (150-450); RBC Distribution Width CV 12.7 % (11.6-14.6); RBC Distribution Width SD 41.1 fl (35.1-43.9); Red Blood Count 4.44 M/mm3 (4.2-5.4)
[2020-09-23 17:29] LABS: AST(SGOT) 19 U/L (15-37); Alanine Aminotransfer ALT/SGPT 21 U/L (13-56); Albumin, Serum 3.5 g/dL (3.2-5.0); Alkaline Phosphatase 84 U/L (45-117); Anion Gap 10 (5-15); BUN 18 mg/dL (7-18); BUN/Creat Ratio 13.1 RATIO (10-20); Bilirubin, Direct 0.13 mg/dL (0.00-0.30); Chloride 113 mmol/L (98-107); Creatinine, Serum 1.37 mg/dL (0.55-1.02); EST Glomerular Filtration Rate 48 mL/min (>60); Est Glom Filt Rate - Afr Amer 58 mL/min (>60); Glucose 89 mg/dL (74-106); Potassium 3.4 mmol/L (3.5-5.1); Protein, Total 7.5 g/dL (6.4-8.2); Sodium Level 144 mmol/L (136-145)
[2020-09-25 20:08] LABS: HCV Quant. RNA PCR HCV Not Detected IU/mL (.)
== END ==
PROVIDERS: PCP Internal Medicine; Referring Provider Internal Medicine Infectious Disease; Visit Provider Internal Medicine Infectious Disease
DX: B19.20 Unspecified viral hepatitis C without hepatic coma (principal)
CPT/HCPCS: 36415; 80048; 80076; 85027; 86769; 87522

== ENCOUNTER 2020-11-10 13:08 | Emergency (ER) | payer MEDICAID, SELFPAY ==
[2020-08-19 10:53] VITALS: BMI 21.9
[2020-11-10 13:09] VITALS: BP 128/73; PULSE 82; RESP 16; TEMP 36.3; O2SAT 98; BMI 20.7
--- NOTE | 2020-11-10 13:20 | CT_ITS ---
STUDY: CT ABDOMEN AND PELVIS WITHOUT CONTRAST REASON FOR EXAM: Female, 29 years old. Left-sided pain RADIATION DOSAGE (If Supplied By Facility): CTDIvol = ( 5.90 ) mGy, DLP = ( 278.09 ) mGycm TECHNIQUE: Transaxial images were obtained from the dome of the diaphragm to the symphysis pubis without oral contrast, and without intravenous contrast. Sagittal and coronal images were reconstructed. Individualized dose optimization techniques were used for this CT. COMPARISON: 11/21/2019 FINDINGS: The visualized lung bases are unremarkable. The visualized portions of the heart are within normal limits. Normal liver. Normal gallbladder and extrahepatic biliary system. Normal spleen. Normal pancreas. Normal bilateral adrenal glands. Right kidney is congenitally absent. The left kidney is enlarged and again shows multiple cysts. However, the previously noted hydronephrosis has resolved. Normal visualized stomach. Normal small intestine. Retained stool noted in the colon. The appendix is visualized and appears normal. Appendix seen on coronal recon images 48 through 54 Normal abdominal aorta. Normal inferior vena cava. Normal retroperitoneum. Normal urinary bladder. Stable soft tissue densities in the pelvis I suspect this likely represents an enlarged uterus likely related to the absent right kidney Normal abdominal wall. Normal osseous structures. CT/Abdomen/Pelvis without Cont IMPRESSION: No acute abdominal or pelvic abnormalities. Congenitally absent right kidney. Left kidney remains enlarged with simple cysts, previously noted hydronephrosis has resolved. Enlarged didelphys uterus No free peritoneal fluid, air, or suspicious adenopathy Electronically Signed: Ti Warren MD at 14:40 EDT , Service support ,
--- NOTE | 2020-11-10 13:35 | EDS_ITS ---
HPI History of Present Illness Chief Complaint: Abd Pain Narrative Narrative: Patient complains of left side abdominal pain and diarrhea that is intermittent, she is had the diarrhea for months crampy lower abdominal pain is been intermittent for the last few days no vomiting no fever no cough she has 1 left kidney congenital issue that is functioning at 30% she has no history of kidney stones or kidney infections, she has no history of colon issues, or GI issues, she has a prior extensive history for Hodgkin's lymphoma that is in remission narcotic dependency related to the Hodgkin's lymphoma therapy that she is currently in remission and detox, prior nonspecific rectal issues with colonoscopy that was unremarkable [facility] Medical History (Updated 11/10/20 @ 15:[address] Blake Contreras MD) Anemia Asthma Cancer Chronic headaches Deafness in left ear Drug abuse Hepatitis C Kidney disease Pancreatitis Seasonal allergies Thyroid disease Home Medications Vitamin B-12 500 mcg PO DAILY #90 unit 01/30/19 [Rx Last Taken Unknown] cholecalciferol (vitamin D3) 50 mcg (2,000 unit) capsule 2,000 unit PO DAILY #90 cap 06/07/19 [Rx Last Taken Unknown] etonogestrel 68 mg SQ DAILY 11/21/19 [History Last Taken Unknown] ondansetron 8 mg PO Q8H PRN PRN #10 tab 06/11/20 [Rx Last Taken Unknown] glecaprevir 100 mg-pibrentasvir 40 mg tablet 3 tab PO DAILY tab 08/19/20 [History Last Taken Unknown] levothyroxine 150 mcg tablet 150 mcg PO DAILY #60 tab 08/19/20 [Rx Last Taken Unknown] loperamide 2 mg capsule 2 mg PO Q6H PRN 08/19/20 [History Last Taken Unknown] aripiprazole 10 mg tablet 10 mg PO DAILY #60 tab 09/18/20 [Rx Last Taken Unknown] sertraline 25 mg tablet 25 mg PO DAILY #90 tab 09/18/20 [Rx Last Taken Unknown] ciprofloxacin HCl [Cipro] 500 mg PO Q12H #20 tab 11/10/20 [Rx Last Taken Unknown] Allergy/AdvReac Type Severity Reaction Status Date / Time ceftriaxone [From Rocephin] Allergy Unknown Verified 11/10/20 13:11 ceftriaxone sodium Allergy Hives Verified 11/10/20 13:11 [From Rocephin] droperidol Allergy Unknown Verified 11/10/20 13:11 LAXATIVE Allergy Unknown Uncoded 11/10/20 13:11 Family History (System 02/21/19 @ 15:05 by Louise Stern) Mother Depression Hypertension Mental disorder Thyroid disorder Aunt Diabetes Grandfather Alcoholism Cancer Social History Smoking Status: Current every day smoker alcohol intake: never substance use type: former substance user Date of last use: 05/28/2018, crack/cocaine and heroin what type of physical activity do you participate in: aerobics and weight training frequency: 3-4 times per week ROS ROS ED Constitutional Constitutional ED: Reports subjective, sweats and other; Denies chills, fever(s) or weight loss Eyes Eyes: Denies blurry vision or change in vision ENT ENT ED: Denies ear pain Cardiovascular Cardiovascular: Denies chest pain or palpitations Respiratory/Chest Respiratory/Chest: Denies dyspnea Gastrointestinal Gastrointestinal: Reports abdominal pain and diarrhea; Denies nausea or vomiting Genitourinary Genitourinary ED: Denies dysuria or hematuria Musculoskeletal Musculoskeletal: Denies arthralgias or myalgias Integumentary Reports rash; Denies abscess Neurologic Neurologic: Denies weakness Psychiatric Psychiatric: Denies anxiety or depression Endocrine Endocrinology: Denies polydipsia or polyuria Allergic/Immunologic Allergic/Immunologic ED: Denies urticaria EXAM Physical Exam Narrative Exam Narrative: The patient's vital signs are unremarkable she has a vague pain to the left side abdomen there is no rebound guarding organomegaly the flank is unremarkable and the rest of exam is unremarkable see below Const Vital Signs: 11/10/20 13:09 Temperature 97.3 F L Temperature Source Temporal Pulse Rate 82 Respiratory Rate 16 Blood Pressure 128/73 H Blood Pressure Mean 91 Pulse Ox 98 Oxygen Delivery Method Room Air MDM MDM MDM Narrative Medical decision making narrative: The differential is extensive she indicates her opioid dependency is in remission she does not wish to have any pain medication, her diarrhea has been something going on for 9 months or more, she has no known history of GI elements she has a 1 congenital left kidney that is functioning 30% based on assessments by her outpatient providers she had no fever no cough no blood per rectum normal urinary habits given all the above ED evaluation The ED evaluation is generally unremarkable CT scan nothing acute please see all the labs her UA shows signs of UTI urine culture sent started on Cipro due to her history of substance abuse she will take [id number] meds for pain follow-up with outpatient providers return for change in symptoms Home stable Final impression left sided abdominal pain flank pain UTI Lab Data Labs: Laboratory Results - last 24 hr 11/10/20 11/10/20 11/10/20 13:32 13:32 13:32 WBC 4.5 RBC 4.14 L Hgb 11.9 L Hct 36.6 L MCV 88.4 MCH 28.7 MCHC 32.5 RDW Std Deviation 42.2 RDW Coeff of Maki 13.1 Plt Count 173 MPV 10.9 Immature Gran % (Auto) 0.000 Neut % (Auto) 56.8 Lymph % (Auto) 34.1 [place] % (Auto) 6.9 Eos % (Auto) 1.8 Baso % (Auto) 0.4 Absolute Neuts (auto) 2.6 Absolute Lymphs (auto) 1.54 Nucleated RBC % 0 Sodium 145 Potassium 3.7 Chloride 117 H Carbon Dioxide 23.0 Anion Gap 5 BUN 18 Creatinine 1.46 H Estim Creat Clear Calc 57.00 Est GFR (MDRD) Af Amer 54 L Est GFR (MDRD) Non-Af 45 L BUN/Creatinine Ratio 12.3 Glucose 81 Calcium 8.6 Total Bilirubin 0.20 AST 15 ALT 18 Alkaline Phosphatase 74 Total Protein 7.0 Albumin 3.2 Globulin 3.8 Albumin/Globulin Ratio 0.8 L Lipase 214 Serum , Qual NEGATIVE Urine Color Urine Clarity Urine pH Ur Specific [place] Urine Protein Urine Glucose (UA) Urine Ketones Urine Occult Blood Urine Nitrite Urine Bilirubin Urine Urobilinogen Ur Leukocyte Esterase Urine RBC Urine WBC Ur Squamous Epith Cells Urine Bacteria Urine Mucus 11/10/20 13:45 WBC RBC Hgb Hct MCV MCH MCHC RDW Std Deviation RDW Coeff of Maki Plt Count MPV Immature Gran % (Auto) Neut % (Auto) Lymph % (Auto) [place] % (Auto) Eos % (Auto) Baso % (Auto) Absolute Neuts (auto) Absolute Lymphs (auto) Nucleated RBC % Sodium Potassium Chloride Carbon Dioxide Anion Gap BUN Creatinine Estim Creat Clear Calc Est GFR (MDRD) Af Amer Est GFR (MDRD) Non-Af BUN/Creatinine Ratio Glucose Calcium Total Bilirubin AST ALT Alkaline Phosphatase Total Protein Albumin Globulin Albumin/Globulin Ratio Lipase Serum , Qual Urine Color Straw Urine Clarity Sl. Cloudy Urine pH 6.5 Ur Specific [place] 1.015 Urine Protein 100 H Urine Glucose (UA) 50 H Urine Ketones Negative Urine Occult Blood Negative Urine Nitrite Negative Urine Bilirubin Negative Urine Urobilinogen Normal Ur Leukocyte Esterase 25 H Urine RBC 0 SEEN Urine WBC 10-25 SEEN Ur Squamous Epith Cells 0-5 SEEN Urine Bacteria 1+ Urine Mucus 0 SEEN Radiography Diagnostic Testing: Radiology Impression Abdomen/Pelvis CT 11/10/20 13:20 IMPRESSION: No acute abdominal or pelvic abnormalities. Congenitally absent right kidney. Left kidney remains enlarged with simple cysts, previously noted hydronephrosis has resolved. Enlarged didelphys uterus No free peritoneal fluid, air, or suspicious adenopathy Electronically Signed: Ti Warren MD at 14:40 EDT , Service support , Discharge Plan Triage Chief Complaint: Abd Pain ED Provider: Blake Contreras Dx/Rx/DC Orders Clinical Impression: UTI (urinary tract infection) Instructions: ED Abdominal Pain Unkn Cause Fem Prescriptions: New ciprofloxacin HCl [Cipro] 500 mg tablet 500 mg PO Q12H Qty: 20 RF: 0 No Action glecaprevir-pibrentasvir 100-40 mg tablet 3 tab PO DAILY RF: 0 loperamide [Imodium A-D] 2 mg capsule 2 mg PO Q6H PRNRF: 0 levothyroxine 150 mcg tablet 150 mcg PO DAILY Qty: 60 RF: 1 etonogestrel 68 MG implant 68 mg SQ DAILY RF: 0 ondansetron 4 MG tablet 8 mg PO Q8H PRN PRN (Reason: Nausea) Qty: 10 RF: 0 Vitamin B-12 500 mcg PO DAILY Qty: 90 RF: 1 cholecalciferol (vitamin D3) 50 mcg (2,000 unit) capsule 2,000 unit PO DAILY Qty: 90 RF: 2 aripiprazole 10 mg tablet 10 mg PO DAILY Qty: 60 RF: 1 sertraline 25 mg tablet 25 mg PO DAILY Qty: 90 RF: 3 Primary Care Provider: Ramya Ferrer Referrals: Ramya Ferrer MD [Primary Care Provider] -
[2020-11-10 13:49] LABS: Internal QC Validated? YES +Cl - CLEAR BKGD; Pregnancy, Serum, hCG Quali. NEGATIVE Negative
[2020-11-10 13:50] LABS: Mucous, Urine 0 SEEN /hpf (<or=2+); Red Blood Cells-Urine 0 SEEN /hpf (0-5)
[2020-11-10] MEDS: Ketorolac 30 MG/ML Syringe IV (13:53)
[2020-11-10 13:55] LABS: Absolute Lymphocyte Count 1.54 X10^3/uL (0.83-4.51); Absolute Neutrophil Count 2.6 X10^3/uL (2.0-7.7); Basophil# 0.02 X10^3/uL; Basophil% 0.4 % (0-1); Eosinophil# 0.08 X10^3/uL; Eosinophils% 1.8 % (0-5); Hematocrit 36.6 % (37-47); Hemoglobin 11.9 g/dL (12.0-15.0); Lymphocyte # 1.54 X10^3/ul (0.83-4.51); Lymphocyte % 34.1 % (19-41); Mean Corp Hgb Conc 32.5 g/dL (32-36); Mean Corpuscular Hgb 28.7 pg (27.0-32.0); Mean Corpuscular Volume 88.4 fL (81-99); Mean Platelet Vol. 10.9 fl (6.2-12.0); Monocyte# 0.31 X10^3/uL; Monocyte% 6.9 % (0-10); NRBC Flagged by Analyzer 0 % (0-5); Neutrophil # 2.57 X10^3/uL (2.7-7.7); Neutrophil % 56.8 % (47-70); Platelet Count 173 K/mm3 (150-450); RBC Distribution Width CV 13.1 % (11.6-14.6); RBC Distribution Width SD 42.2 fl (35.1-43.9); Red Blood Count 4.14 M/mm3 (4.2-5.4); White Blood Count 4.5 K/mm3 (4.4-11.0)
[2020-11-10 13:59] LABS: ALB/GLOB Ratio 0.8 RATIO (0.9-2.4); AST(SGOT) 15 U/L (15-37); Alanine Aminotransfer ALT/SGPT 18 U/L (13-56); Albumin, Serum 3.2 g/dL (3.2-5.0); Alkaline Phosphatase 74 U/L (45-117); Anion Gap 5 (5-15); BUN 18 mg/dL (7-18); BUN/Creat Ratio 12.3 RATIO (10-20); Calcium,Total 8.6 mg/dL (8.5-10.1); Chloride 117 mmol/L (98-107); Creatinine, Serum 1.46 mg/dL (0.55-1.02); EST Glomerular Filtration Rate 45 mL/min (>60); Est Glom Filt Rate - Afr Amer 54 mL/min (>60); Globulin 3.8 g/dL (2.2-4.2); Glucose 81 mg/dL (74-106); Lipase 214 U/L (73-393); Potassium 3.7 mmol/L (3.5-5.1); Sodium Level 145 mmol/L (136-145)
[2020-11-10 14:03] LABS: Color, Urine Straw (Yellow); Glucose, Dipstick 50 mg/dl (Normal); Ketone-Dipstick Negative (Negative); Leukocyte Esterase-Dipstick 25 /ul (Negative); Nitrite-Dipstick Negative (Negative); Occult Blood-Urine Negative /ul (Negative); Protein-Dipstick 100 mg/dl (Negative); Specific Gravity, Urine 1.015 (1.002-1.030); Urine Bilirubin Dipstick Negative (Negative); Urine Clarity Sl. Cloudy (Clear); Urine Urobilinogen Normal (Normal); Urine pH 6.5 (5.0 - 8.0)
[2020-11-10 14:12] LABS: White Blood Cells 10-25 SEEN /hpf (0-5)
[2020-11-10 14:13] LABS: Bacteria 1+ /hpf (None Seen); Squamous Epithelial Cells - UA 0-5 SEEN /hpf (5-10)
[2020-11-10] MEDS: Ciprofloxacin 250 MG Tablet 500 MG PO (15:36)
[2020-11-10 15:39] VITALS: BP 107/55
== END 2020-11-10 15:39 | disposition home or self-care (01) ==
LOC: ED 13:49
PROVIDERS: Emergency Provider Emergency Medicine; PCP Internal Medicine
DX: N39.0 Urinary tract infection, site not specified (principal); Q51.28 Other and unspecified doubling of uterus; F17.200 Nicotine dependence, unspecified, uncomplicated; D64.9 Anemia, unspecified; J45.909 Unspecified asthma, uncomplicated
CPT/HCPCS: 74176; 80053; 81001; 83690; 84703; 85025; 87086; 87088; 96374; 96375; 99284; J7030; A4216

== ENCOUNTER → 2021-01-20 16:26 | Outpatient (CLI) | payer MEDICAID, SELFPAY ==
[2021-01-20 17:04] LABS: Hematocrit 36.5 % (37-47); Hemoglobin 12.1 g/dL (12.0-15.0); Mean Corp Hgb Conc 33.2 g/dL (32-36); Mean Corpuscular Hgb 28.9 pg (27.0-32.0); Mean Corpuscular Volume 87.3 fL (81-99); Mean Platelet Vol. 10.9 fl (6.2-12.0); Platelet Count 189 K/mm3 (150-450); RBC Distribution Width CV 12.7 % (11.6-14.6); RBC Distribution Width SD 40.6 fl (35.1-43.9); Red Blood Count 4.18 M/mm3 (4.2-5.4); White Blood Count 5.6 K/mm3 (4.4-11.0)
[2021-01-20 17:29] LABS: Protein, Urine (Random) 260.9 mg/dL (<11.9); Protein:Creat Ratio 1544 mg/g CRE (0-200)
[2021-01-20 17:50] LABS: Albumin, Serum 3.4 g/dL (3.2-5.0); BUN 15 mg/dL (7-18); BUN/Creat Ratio 9.4 RATIO (10-20); Calcium,Total 8.2 mg/dL (8.5-10.1); Chloride 114 mmol/L (98-107); EST Glomerular Filtration Rate 40 mL/min (>60); Est Glom Filt Rate - Afr Amer 49 mL/min (>60); Glucose 94 mg/dL (74-106); Phosphorus 2.6 mg/dL (2.5-4.9); Potassium 3.4 mmol/L (3.5-5.1); Sodium Level 143 mmol/L (136-145)
[2021-01-21 09:00] LABS: PTHIN 90.8 pg/mL (18.4-80.1)
[2021-01-23 03:07] LABS: HCV Quant. RNA PCR HCV Not Detected IU/mL (.)
== END ==
PROVIDERS: PCP Internal Medicine; Visit Provider Internal Medicine Nephrology
DX: N18.30 Chronic kidney disease, stage 3 unspecified (principal); B19.20 Unspecified viral hepatitis C without hepatic coma; R80.9 Proteinuria, unspecified
CPT/HCPCS: 36415; 80069; 82570; 83970; 84156; 85027; 87522

== ENCOUNTER → 2021-01-21 09:27 | Outpatient (CLI) | payer MEDICAID, SELFPAY ==
[2021-01-25 16:09] LABS: PROEL- Albumin 3.5 g/dL (2.9-4.4); PROEL- Alpha-1 Globulin 0.3 g/dL (0.0-0.4); PROEL- Alpha-2 Globulin 0.8 g/dL (0.4-1.0); PROEL- Gamma Globulin 1.4 g/dL (0.4-1.8); PROEL- Globulin, Total 3.5 g/dL (2.2-3.9); PROELU- Albumin, Urine 53.7 % (.); PROELU- Alpha-1-Globulin,Ur 6.1 % (.); PROELU- Alpha-2-Globulin,Ur 7.3 % (.); PROELU- Beta Globulin, Ur 18.3 % (.); PROELU- Gamma Globulin, Ur 14.6 % (.); Total Protein, Ur 169.2 mg/dL (Not Estab.)
== END ==
PROVIDERS: PCP Internal Medicine; Visit Provider Internal Medicine Nephrology
DX: R80.9 Proteinuria, unspecified (principal)
CPT/HCPCS: 36415; 82595; 84165; 84166

== ENCOUNTER 2021-03-22 09:34 | Day surgery (SDC) | payer MEDICAID, SELFPAY ==
--- NOTE | 2021-03-22 | COLBX_PTH ---
PATIENT: AISSATOU JOHNSON LOC: EN U#:[id number] AGE/SX: 30/F ROOM: RE03/22/[address]: Dr. Zion Reese DO : 1990 BED: DIS: 03/22/2021 SPEC #: [id number] RECD: 03/22/21 13:41 STATUS: MAI REAnnalisa #: [id number] TRISH: 03/22/21 00:[address]: Zion Reese DEPT: SURGICAL PATHOLOGY RECD BY: Arthur Fine ENTERED: 03/22/21 13:42 SP TYPE: COLON BX OTHR DR: Dr. Ramya Ferrer MD Tissues: A - Duodenum, NOS B - Esophageal mucous membrane C - Ileum, NOS D - COLON BIOPSY Procedures: Special Stain Group II Surgery Specimen Level IV Alcian Blue/PAS (control) HEADER OPERATION: Colonoscopy, EGD ([facility]) PRE-OP DIAGNOSIS: Irritable bowel syndrome with diarrhea TISSUE SUBMITTED: A ? Duodenum biopsy, B ? Distal esophagus biopsy, C ? Terminal ileum biopsy, D ? Random colon biopsy MICROSCOPIC DIAGNOSIS A. Duodenum, biopsy: Fragments of duodenal mucosa, no pathologic diagnosis. B. Distal esophagus, biopsy: Fragments of gastroesophageal mucosa with moderate chronic inflammation. Intestinal metaplasia (goblet cell metaplasia) is not identified. See comment. C. Terminal ileum, biopsy: Fragments of small intestinal mucosa, no pathologic diagnosis. D. Colon, random biopsy: Fragments of colonic mucosa, no pathologic diagnosis. SJ:pete 03/23/2021 COMMENT B. Alcian blue/PAS stain with matched control is used in the evaluation of the specimen. MICROSCOPIC DESCRIPTION Slides are reviewed. GROSS DESCRIPTION A - Received in fixative is one container labeled with the patient's name and designated duodenum biopsy. The specimen consists of multiple irregular fragments of light hernandez soft tissue that in aggregate measure 1 x 0.5 x 0.1 cm. The specimen is totally submitted in one cassette. B - Received in fixative is one container labeled with the patient's name and designated distal esophagus biopsy. The specimen consists of multiple irregular fragments of light hernandez soft tissue that in aggregate measure 0.7 x 0.2 x 0.1 cm. The specimen is totally submitted in one cassette. C - Received in fixative is one container labeled with the patient's name and designated terminal ileum biopsy. The specimen consists of multiple irregular fragments of light hernandez soft tissue that in aggregate measure 1 x 0.5 x 0.1 cm. The specimen is totally submitted in one cassette. D - Received in fixative is one container labeled with the patient's name and designated random colon biopsy. The specimen consists of multiple irregular fragments of light hernandez soft tissue that in aggregate measure 2 x 1 x 0.1 cm. The specimen is totally submitted in one cassette. / AM:pete 03/22/21 TC:3 CPT: 43981 x4, 23490
[2021-03-22 10:06] LABS: Internal QC Validated? YES +Cl - CLEAR BKGD; Pregnancy, Urine Negative Negative
[2021-03-22 10:08] VITALS: BP 111/73; PULSE 73; RESP 18; TEMP 36.9; O2SAT 98; BMI 20.5
[2021-03-22] MEDS: Lactated Ringers 1,000 ML 100 ML IV (10:22)
--- NOTE | 2021-03-22 10:50 | PCM.HP.STD ---
HPI - General HPI Narrative Chief Complaint: Diarrhea Details: AISSATOU JOHNSON, is a 30 F who presents to the office today for evaluation of diarrhea. She has been having worsening abdominal pain with cramping, tenesmus and diarrhea for the last year. It is getting progressively worse to the point where she has to take Imodium on a daily basis. She also has a history of a solitary kidney and has stage III chronic kidney disease with hydronephrosis. She has a history of chronic hepatitis C and had completed treatment. Her last viral load was negative for hepatitis C virus. She has a history of alcohol abuse and heroin abuse in the past. Her alcohol abuse was complicated by recurrent acute pancreatitis. 9 years ago she was diagnosed with Hodgkin lymphoma and underwent chemotherapy and radiation. She has been in remission for the last 7 years. She is having episodes of fecal incontinence without any association of blood or mucus. She says that she saw infectious disease and she had stool studies which did not show any signs of infection. She is not have any problems with her menstrual cycle as she is on control. She does however get urinary urgency and intermittent vaginal discharge. ROS Const Constitutional: Positive for fatigue and headache(s) ENT ENT: Positive for headache(s) Gastro GI: Positive for abdominal pain, change in bowel habits, diarrhea and nausea/dyspepsia Genitourinary-Female: Positive for urinary frequency, urinary urgency and other (Vaginal discharge) Musc Musculoskeletal: Positive for back pain, numbness and stiffness Neuro Neurology: Positive for headache(s) and numbness Psych Psychiatric: Positive for anxiety and Positive for hyperactivity Endo Endocrine: Positive for cold intolerance, fatigue, increased thirst/drinking and increased urine leakage Romie/Lymp Hematologic/Lymphatic: Positive for easy bruising Quality Reporting Tobacco Screening (CMS 138) Smoking Status: Current every day smoker Assessment and Plan Assessment and Plan (1) Irritable bowel syndrome with diarrhea: Status: Acute Plan - Dr. Donovan Friend, DO: She will have a work-up for inflammatory bowel disease including an EGD, colonoscopy and possible capsule endoscopy pending small bowel follow-through. She has signs and symptoms of an accelerated gastrocolic reflex. I had a long talk with her over 30 minutes and explained to her she could have a diagnosis of IBS with diarrhea and that would be the best possible diagnosis rather than her having underlying inflammatory bowel disease. She will get blood work to see if she is an underlying autoimmune disease pending her up and coming endoscopy and colonoscopy. This is an updated H&P. Nothing has changed since the patient was seen in office. [facility] Medical History (Updated 03/18/21 @ 14:51 by Namita Bedolla) Anemia Anxiety Asthma Cancer Chronic headaches Deafness in left ear Depression Drug abuse Hepatitis Hepatitis C History of imperforate anus History of renal disease Irritable bowel syndrome with diarrhea Kidney disease Migraine headache Pancreatitis Seasonal allergies Smoker Thyroid disease Wears glasses Home Medications Vitamin B-12 500 mcg PO DAILY #90 unit 01/30/19 [Rx Last Taken Unknown] cholecalciferol (vitamin D3) 50 mcg (2,000 unit) capsule 2,000 unit PO DAILY #90 cap 06/07/19 [Rx Last Taken Unknown] etonogestrel 68 mg SQ .Q3YRS 11/21/19 [History Last Taken Unknown] loperamide 2 mg capsule 2 mg PO Q6H PRN 08/19/20 [History Last Taken Unknown] sertraline 25 mg tablet 25 mg PO DAILY #90 tab 09/18/20 [Rx Last Taken Unknown] aripiprazole 10 mg tablet 10 mg PO DAILY #60 tab 01/06/21 [Rx Last Taken Unknown] bisacodyl 5 mg tablet,delayed release 5 mg PO ONCE #4 tab MDD 4 03/11/21 [Rx Last Taken Unknown] peg 3350-electrolytes 236 gram-22.74 gram-6.74 gram-5.86 gram solution 240 ml PO Q10M #4000 ml 03/11/21 [Rx Last Taken Unknown] levothyroxine 150 mcg tablet 150 mcg PO DAILY #30 tab 03/18/21 [Rx Last Taken Unknown] losartan 25 mg PO DAILY 03/18/21 [History Last Taken Unknown] sumatriptan succinate 25 mg PO Q2H PRN 03/22/21 [History Last Taken 03/22/21 07:00] Allergy/AdvReac Type Severity Reaction Status Date / Time ceftriaxone [From Rocephin] Allergy Unknown Verified 03/22/21 10:03 ceftriaxone sodium Allergy Hives Verified 03/22/21 10:03 [From Rocephin] droperidol Allergy Unknown Verified 03/22/21 10:03 LAXATIVE Allergy Unknown Uncoded 03/22/21 10:03 Family History Mother Depression Hypertension Mental disorder Thyroid disorder Aunt Diabetes Grandfather Alcoholism Cancer Surgical History (Updated 03/18/21 @ 14:51 by Namita Bedolla) History of removal of Port-a-Cath Hx of cystoscopy Hx of surgical procedure Social History Smoking Status: Current every day smoker tobacco type: cigarettes alcohol intake: never substance use type: former substance user Date of last use: 05/28/2018, crack/cocaine and heroin what type of physical activity do you participate in: aerobics and weight training frequency: 3-4 times per week Vital Signs Vital Signs Vital Signs: 03/22/21 10:06 03/22/21 10:08 Temperature 98.4 F Temperature Source Temporal Pulse Rate 73 Respiratory Rate 18 Respiratory Pattern Normal Blood Pressure 111/73 Blood Pressure Mean 85 Blood Pressure Source Monitor Blood Pressure Position Supine Blood Pressure Location Right Arm Pulse Ox 98 Oxygen Delivery Method Room Air Weight Weight: 139 lb Body Mass Index (BMI) 20.5 Results Lab / Micro Data Labs: Laboratory Results - last 24 hr 03/22/21 09:50: Urine Test Negative
[2021-03-22 11:27] VITALS: BP 106/67; BP 111/73; PULSE 71; RESP 16; TEMP 36.2; O2SAT 100
[2021-03-22 11:30] VITALS: BP 111/73; BP 116/72; PULSE 65; RESP 16; O2SAT 100
--- NOTE | 2021-03-22 11:30 | OP.EGD_ITS ---
Patient Name: Hoa Betts Procedure Date: 03/22/2021 10:51 AM Date of : 1990 Age: 30 Procedure: Upper GI endoscopy Indications: Epigastric abdominal pain Providers: Zion Reese DO Referring MD: Zion Reese DO Medicines: Monitored Anesthesia Care Patient Profile: This is a 30 year old female. Refer to note in patient chart for documentation of history and physical. Patient has symptoms. The symptoms first began October. She is status post none none. Complications: No immediate complications. Procedure: Pre-Anesthesia Assessment: - Prior to the procedure, a History and Physical was performed, and patient medications and allergies were reviewed. The patient is competent. The risks and benefits of the procedure and the sedation options and risks were discussed with the patient. All questions were answered and informed consent was obtained. Patient identification and proposed procedure were verified by the physician in the pre-procedure area. Mental Status Examination: alert and oriented. Airway Examination: normal oropharyngeal airway and neck mobility. Respiratory Examination: clear to auscultation. CV Examination: normal. Prophylactic Antibiotics: The patient does not require prophylactic antibiotics. Prior Anticoagulants: The patient has taken no previous anticoagulant or antiplatelet agents. ASA Grade Assessment: II - A patient with mild systemic disease. After reviewing the risks and benefits, the patient was deemed in satisfactory condition to undergo the procedure. The anesthesia plan was to use moderate sedation / analgesia (conscious sedation). Immediately prior to administration of medications, the patient was re-assessed for adequacy to receive sedatives. The heart rate, respiratory rate, oxygen saturations, blood pressure, adequacy of pulmonary ventilation, and response to care were monitored throughout the procedure. The physical status of the patient was re-assessed after the procedure. After obtaining informed consent, the endoscope was passed under direct vision. Throughout the procedure, the patient's blood pressure, pulse, and oxygen saturations were monitored continuously. The Endoscope was introduced through the mouth, and advanced to the second part of duodenum. The upper GI endoscopy was accomplished without difficulty. The patient tolerated the procedure well. Moderate Sedation: Moderate (conscious) sedation was administered by the endoscopy nurse and supervised by the endoscopist. The patient's oxygen saturation, heart rate, blood pressure and response to care were monitored. Scope In: 11:00:07 AM Scope Out: 11:04:54 AM Total Procedure Duration Time 0 hours 4 minutes 47 seconds Findings: LA Grade A (one or more mucosal breaks less than 5 mm, not extending between tops of 2 mucosal folds) esophagitis with no bleeding was found. Biopsies were taken with a cold forceps for histology. Verification of patient identification for the specimen was done. Estimated blood loss was minimal. A small hiatal hernia was present. Impression: - LA Grade A reflux esophagitis. Biopsied. - Small hiatal hernia. - Normal stomach. - Duodenitis. Recommendation: - Discharge patient to home. - Resume previous diet. - Continue present medications. - Await pathology results. - Repeat upper endoscopy in 1 year for surveillance. - Return to GI office in 2 weeks. Procedure Code(s): --- Professional --- 88151, Esophagogastroduodenoscopy, flexible, transoral; with biopsy, single or multiple CPT copyright 2017 [employer]. All rights reserved. The codes documented in this report are preliminary and upon supervisor slate splitting review may be revised to meet current compliance requirements. Zion Reese DO 03/22/2021 11:29:57 AM This report has been signed electronically. Number of Addenda: 1 Note Initiated On: 03/22/2021 10:51 AM Addendum Number: 1 Addendum Date: 02/24/2022 4:06:20 PM MAC was used instead of moderate sedation for this patient. Zion Reese DO 02/24/2022 4:06:27 PM This report has been signed electronically.
--- NOTE | 2021-03-22 11:31 | OP.CCLET_ITS ---
02/24/2022 Ramya Ferrer MD [address] [place] [address] [place] [address] Re : Upper GI endoscopy procedure for Hoa Betts Dear Dr. Ferrer This procedure was performed on Monday, March 22, 2021. My impressions and recommendations are as follows: Impressions : - LA Grade A reflux esophagitis. Biopsied. - Small hiatal hernia. - Normal stomach. - Duodenitis. Recommendations : - Discharge patient to home. - Resume previous diet. - Continue present medications. - Await pathology results. - Repeat upper endoscopy in 1 year for surveillance. - Return to GI office in 2 weeks. My findings are described in the full procedure note, which is enclosed. If I can be of further assistance, please feel free to contact me at . Sincerely, Zion Reese, 03/22/2021 11:29:57 AM This report has been signed electronically.
[2021-03-22 11:35] VITALS: BP 110/63; BP 111/73; BP 96/65; PULSE 49; PULSE 63; RESP 16; O2SAT 100
--- NOTE | 2021-03-22 11:36 | OP.COLON_ITS ---
Patient Name: Hoa Betts Procedure Date: 03/22/2021 11:05 AM Date of : 1990 Age: 30 Procedure: Colonoscopy Indications: Chronic diarrhea, Clinically significant diarrhea of unexplained origin Providers: Zion Reese DO Referring MD: Zion Reese DO Medicines: Monitored Anesthesia Care Patient Profile: This is a 30 year old female. Refer to note in patient chart for documentation of history and physical. Patient has symptoms. The symptoms first began October. She is status post none none. Last Colonoscopy: none. The patient's first colonoscopy is today. Complications: No immediate complications. Procedure: Pre-Anesthesia Assessment: - Prior to the procedure, a History and Physical was performed, and patient medications and allergies were reviewed. The patient is competent. The risks and benefits of the procedure and the sedation options and risks were discussed with the patient. All questions were answered and informed consent was obtained. Patient identification and proposed procedure were verified by the physician in the pre-procedure area. Mental Status Examination: alert and oriented. Airway Examination: normal oropharyngeal airway and neck mobility. Respiratory Examination: clear to auscultation. CV Examination: normal. Prophylactic Antibiotics: The patient does not require prophylactic antibiotics. Prior Anticoagulants: The patient has taken no previous anticoagulant or antiplatelet agents. ASA Grade Assessment: II - A patient with mild systemic disease. After reviewing the risks and benefits, the patient was deemed in satisfactory condition to undergo the procedure. The anesthesia plan was to use moderate sedation / analgesia (conscious sedation). Immediately prior to administration of medications, the patient was re-assessed for adequacy to receive sedatives. The heart rate, respiratory rate, oxygen saturations, blood pressure, adequacy of pulmonary ventilation, and response to care were monitored throughout the procedure. The physical status of the patient was re-assessed after the procedure. - Prior to the procedure, a History and Physical was performed, and patient medications and allergies were reviewed. The patient is competent. The risks and benefits of the procedure and the sedation options and risks were discussed with the patient. All questions were answered and informed consent was obtained. Patient identification and proposed procedure were verified by the physician in the pre-procedure area. Mental Status Examination: alert and oriented. Airway Examination: normal oropharyngeal airway and neck mobility. Respiratory Examination: clear to auscultation. CV Examination: normal. Prophylactic Antibiotics: The patient does not require prophylactic antibiotics. Prior Anticoagulants: The patient has taken no previous anticoagulant or antiplatelet agents. ASA Grade Assessment: II - A patient with mild systemic disease. After reviewing the risks and benefits, the patient was deemed in satisfactory condition to undergo the procedure. The anesthesia plan was to use moderate sedation / analgesia (conscious sedation). Immediately prior to administration of medications, the patient was re-assessed for adequacy to receive sedatives. The heart rate, respiratory rate, oxygen saturations, blood pressure, adequacy of pulmonary ventilation, and response to care were monitored throughout the procedure. The physical status of the patient was re-assessed after the procedure. After I obtained informed consent, the scope was passed under direct vision. Throughout the procedure, the patient's blood pressure, pulse, and oxygen saturations were monitored continuously. The pediatric colonoscope was introduced through the anus and advanced to the cecum, identified by appendiceal orifice and ileocecal valve. The colonoscopy was performed without difficulty. The patient tolerated the procedure well. The quality of the bowel preparation was good. Moderate Sedation: Moderate (conscious) sedation was administered by the endoscopy nurse and supervised by the endoscopist. The following parameters were monitored: oxygen saturation, heart rate, blood pressure, and response to care. Scope In: 11:09:07 AM Scope Withdrawal Time 0 hours 12 minutes 42 seconds Scope Out: 11:25:01 AM Total Procedure Duration Time 0 hours 15 minutes 54 seconds Findings: The perianal and digital rectal examinations were normal. Impression: - No specimens collected. - The entire examined colon is normal. Biopsied. - The examined portion of the ileum was normal. Biopsied. Recommendation: - Discharge patient to home. - Resume previous diet. - Continue present medications. - Await pathology results. - Repeat colonoscopy in 5 years for surveillance based on pathology results. - Return to GI office in 2 weeks. Procedure Code(s): --- Professional --- 11512, Colonoscopy, flexible; diagnostic, including collection of specimen(s) by brushing or washing, when performed (separate procedure) CPT copyright 2017 [employer]. All rights reserved. The codes documented in this report are preliminary and upon seal mixer review may be revised to meet current compliance requirements. Zion Reese DO 03/22/2021 11:36:14 AM This report has been signed electronically. Number of Addenda: 1 Note Initiated On: 03/22/2021 11:05 AM Addendum Number: 1 Addendum Date: 02/24/2022 4:06:41 PM MAC was used instead of moderate sedation for this patient. Zion Reese DO 02/24/2022 4:06:45 PM This report has been signed electronically.
--- NOTE | 2021-03-22 11:37 | OP.CCLET_ITS ---
02/24/2022 Ramya Ferrer MD [address] [place] [address] [place] [address] Re : Colonoscopy procedure for Hoa Betts Dear Dr. Ferrer This procedure was performed on Monday, March 22, 2021. My impressions and recommendations are as follows: Impressions : - No specimens collected. - The entire examined colon is normal. Biopsied. - The examined portion of the ileum was normal. Biopsied. Recommendations : - Discharge patient to home. - Resume previous diet. - Continue present medications. - Await pathology results. - Repeat colonoscopy in 5 years for surveillance based on pathology results. - Return to GI office in 2 weeks. My findings are described in the full procedure note, which is enclosed. If I can be of further assistance, please feel free to contact me at . Sincerely, Zion Reese, 03/22/2021 11:36:14 AM This report has been signed electronically.
[2021-03-22 11:40] VITALS: BP 111/73; BP 116/72; PULSE 60; RESP 16; O2SAT 100
[2021-03-22 11:45] VITALS: BP 103/75; BP 111/73; PULSE 56; RESP 16; TEMP 36.6; O2SAT 100
== END 2021-03-22 12:16 ==
LOC: EN 09:35 → AC 09:35
PROVIDERS: Anesthesiology; PCP Internal Medicine; Referring Provider Internal Medicine Gastroenterology; Visit Provider Internal Medicine Gastroenterology
PROC: 0DJD8ZZ Inspection of Lower Intestinal Tract, Via Natural or Artificial Opening Endoscopic (ICD-10-PCS; CPT 45378; principal; 2021-03-22 10:40)
DX: K21.00 Gastro-esophageal reflux disease with esophagitis, without bleeding (principal); K44.9 Diaphragmatic hernia without obstruction or gangrene; K58.0 Irritable bowel syndrome with diarrhea; K29.80 Duodenitis without bleeding; N18.30 Chronic kidney disease, stage 3 unspecified; F17.210 Nicotine dependence, cigarettes, uncomplicated; B18.2 Chronic viral hepatitis C; D64.9 Anemia, unspecified; F32.9 Major depressive disorder, single episode, unspecified; F41.9 Anxiety disorder, unspecified; J45.909 Unspecified asthma, uncomplicated
CPT/HCPCS: 43239; 45378; 81025; 87426; 88305; 88313; C9803; J7120; J2405

== ENCOUNTER → 2021-04-12 14:46 | Outpatient (CLI) | payer MEDICAID, SELFPAY ==
[2021-04-12 16:56] LABS: Protein, Urine (Random) 234.2 mg/dL (<11.9); Protein:Creat Ratio 1904 mg/g CRE (0-200)
[2021-04-12 17:06] LABS: ALB/GLOB Ratio 0.7 RATIO (0.9-2.4); AST(SGOT) 16 U/L (15-37); Alanine Aminotransfer ALT/SGPT 21 U/L (13-56); Albumin, Serum 3.2 g/dL (3.2-5.0); Alkaline Phosphatase 71 U/L (45-117); Anion Gap 7 (5-15); BUN 20 mg/dL (7-18); BUN/Creat Ratio 12.7 RATIO (10-20); Calcium,Total 8.8 mg/dL (8.5-10.1); Chloride 110 mmol/L (98-107); Creatinine, Serum 1.58 mg/dL (0.55-1.02); EST Glomerular Filtration Rate 41 mL/min (>60); Est Glom Filt Rate - Afr Amer 49 mL/min (>60); Globulin 4.3 g/dL (2.2-4.2); Glucose 77 mg/dL (74-106); Phosphorus 2.2 mg/dL (2.5-4.9); Potassium 3.3 mmol/L (3.5-5.1); Protein, Total 7.5 g/dL (6.4-8.2); Sodium Level 142 mmol/L (136-145); Thyroid Stim Hormone (TSH) 2.14 uIU/mL (0.358-3.74)
== END ==
PROVIDERS: PCP Internal Medicine; Referring Provider Internal Medicine Nephrology; Visit Provider Internal Medicine Nephrology
DX: E03.9 Hypothyroidism, unspecified (principal); N18.30 Chronic kidney disease, stage 3 unspecified; R80.9 Proteinuria, unspecified
CPT/HCPCS: 36415; 80053; 82570; 84100; 84156; 84443

== ENCOUNTER 2021-04-30 16:56 | Emergency (ER) | payer MEDICAID, SELFPAY ==
[2021-04-30 16:58] VITALS: BP 139/91; PULSE 94; RESP 14; TEMP 36.6; O2SAT 100; BMI 20.7
--- NOTE | 2021-04-30 17:41 | EX.ED.UPPERE ---
HPI History of Present Illness Chief Complaint: Upper Extremity Injury Detail of Chief Complaint: Atraumatic left arm and forearm pain Informant: patient Occured/Mechanism Mechanism/Context: Yes other see comment below Comment: Intermittent pain. States it is deep. Read HPI for detail Onset/Context/Timing Context: Gradual Onset Timing: Continuous Quality of Pain: Dull and Aching Current Severity: Mild Maximum Severity: Severe Worsened by: Nothing Relieved by: Nothing Associated Symptoms Associated Symptoms: Positive for Parasthesia; Negative for Weakness and Loss of Funtion Narrative Narrative: Patient is a 30-year-old female who presents with atraumatic left arm and forearm pain volar surface for several weeks. It has been continuous. She denies fever, chills night sweats. Denies weight gain or weight loss. She denies ocular, visual or auditory symptoms. She denies cardiac or respiratory symptoms. She does have history of chronic diarrhea. She has had a recent EGD and was told she had a bacterial overgrowth. She was placed on antibiotics. She does smoke 1/4 pack/day. She is a former alcoholic. She has been sober for approximately 2 years. There is a remote history of pancreatitis. She has a history of Hodgkin's lymphoma at the age of 18. She has end-stage renal disease due to chronic diarrhea. Tetanus Immunization: 5-10 years Prior similar symptoms: No Recent Illness/Hospitalization: Yes [facility] Medical History Anemia Anxiety Asthma Cancer Chronic headaches Deafness in left ear Depression Drug abuse Flu vaccine need Hepatitis Hepatitis C History of imperforate anus History of renal disease IBS (irritable bowel syndrome) Irritable bowel syndrome with diarrhea Kidney disease Migraine headache Pancreatitis Seasonal allergies Smoker Tachycardia Thyroid disease Wears glasses Home Medications Vitamin B-12 500 mcg PO DAILY #90 unit 01/30/19 [Rx Last Taken Unknown] cholecalciferol (vitamin D3) 50 mcg (2,000 unit) capsule 2,000 unit PO DAILY #90 cap 06/07/19 [Rx Last Taken Unknown] etonogestrel 68 mg SQ .Q3YRS 11/21/19 [History Last Taken Unknown] loperamide 2 mg capsule 2 mg PO Q6H PRN 08/19/20 [History Last Taken Unknown] sertraline 25 mg tablet 25 mg PO DAILY #90 tab 09/18/20 [Rx Last Taken Unknown] levothyroxine 150 mcg tablet 150 mcg PO DAILY #30 tab 03/18/21 [Rx Last Taken Unknown] losartan 25 mg PO DAILY 03/18/21 [History Last Taken Unknown] budesonide 3 mg capsule,delayed,extended release 9 mg PO DAILY #90 ea 04/06/21 [Rx Last Taken Unknown] doxycycline hyclate 100 mg tablet 100 mg PO BID #60 tab 04/06/21 [Rx Last Taken Unknown] sumatriptan succinate 25 mg tablet 25 mg PO ONCE PRN #10 tab 04/12/21 [Rx Last Taken Unknown] aripiprazole 10 mg tablet 10 mg PO DAILY #60 tab 04/28/21 [Rx Last Taken Unknown] naproxen 500 mg PO BID #14 tab 04/30/21 [Rx Last Taken Unknown] Allergy/AdvReac Type Severity Reaction Status Date / Time ceftriaxone [From Rocephin] Allergy Unknown Verified 04/30/21 16:57 ceftriaxone sodium Allergy Hives Verified 04/30/21 16:57 [From Rocephin] droperidol Allergy Unknown Verified 04/30/21 16:57 LAXATIVE Allergy Unknown Uncoded 04/30/21 16:57 Family History Mother Depression Hypertension Mental disorder Thyroid disorder Aunt Diabetes Grandfather Alcoholism Cancer Surgical History History of removal of Port-a-Cath Hx of cystoscopy Hx of surgical procedure Social History (Updated 04/30/21 @ 17:[address] Stewart Ibarra MD) household members: spouse and children Smoking Status: Current every day smoker tobacco type: cigarettes alcohol intake: never substance use type: former substance user Date of last use: 05/28/2018, crack/cocaine and heroin what type of physical activity do you participate in: aerobics and weight training frequency: 3-4 times per week ROS ROS ED Constitutional Constitutional ED: Denies chills, fever(s), subjective, sweats or weight loss Eyes Eyes: Denies blurry vision, change in vision or diplopia ENT ENT ED: Denies ear pain, rhinorrhea or sore throat Cardiovascular Cardiovascular: Denies chest pain, palpitations or racing heartbeat Respiratory/Chest Respiratory/Chest: Denies cough, dyspnea, dyspnea on exertion or sputum Gastrointestinal Gastrointestinal: Reports diarrhea; Denies abdominal pain, constipation, nausea or vomiting Genitourinary Genitourinary ED: Denies dysuria, hematuria or urinary frequency Musculoskeletal Musculoskeletal: Denies back pain, myalgias or neck pain Integumentary Denies abscess, Abrasions or rash Neurologic Neurologic: Denies headache(s), paresthesias or weakness Hematologic/Lymphatic Hematologic/Lymphatic: Denies easy bleeding or easy bruising EXAM Physical Exam Const Vital Signs: 04/30/21 16:58 Temperature 97.8 F Temperature Source Temporal Pulse Rate 94 Respiratory Rate 14 Blood Pressure 139/91 H Blood Pressure Mean 107 Pulse Ox 100 Oxygen Delivery Method Room Air Positive well nourished and well developed General Appearance ED: well developed and NAD; Negative for cyanotic or diaphoretic HEENT Reports moist mucous membranes normocephalic and atraumatic Eyes PERRL and EOMs intact bilaterally Eyes Narrative: There is no scleral icterus. Conjunctive is pink. Neck full ROM and supple Resp normal respiratory effort and clear to auscultation bilaterally Cardio regular rate, regular rhythm, S1 normal heart sound, S2 normal heart sound and no murmurs GI non-tender, non-distended and no masses Auscultation: normoactive bowel sounds Palpation: soft Extremity normal to inspection and full ROM Extremity Narrative: There is no reproducible pain. Axillary, median, radial and ulnar function intact. Radial pulses palpable. General Extremety ED: Negative for edema General Extremity: Negative for edema Neuro oriented x3, CN's II-XII intact bilaterally and no focal motor deficits Sensorium / Orientation: alert and oriented to person Psych mental status grossly normal Skin Lesions: no lesions Rashes: no rashes Trauma: no lacerations or abrasions MDM MDM MDM Narrative Medical decision making narrative: Labs will assess electrolytes and renal function. With history of Hodgkin's lymphoma and atraumatic bone pain will obtain ESR as well as calcium and alkaline phosphatase.With history of chronic diarrhea, Hodgkin's lymphoma patient was informed of her laboratory results. Patient was informed the cause of her pain is unknown. Based on normal work-up would suspect this is nothing significant or serious. Lab Data Attestation: I reviewed the patient's lab results. Lab results narrative: CBC and differential unremarkable. Electrolyte panels marked for an elevated creatinine and stable. ESR is normal and would suggest no malignancy. Liver enzymes, alk phos and calcium are normal. Discharge Plan Triage Chief Complaint: Upper Extremity Injury ED Provider: Stewart Ibarra Dx/Rx/DC Orders Clinical Impression: Pain of left upper extremity Instructions: ED Pain, Acute, Uncertain Cause Prescriptions: New naproxen 500 MG tablet 500 mg PO BID Qty: 14 RF: 0 No Action loperamide [Imodium A-D] 2 mg capsule 2 mg PO Q6H PRN (Reason: Diarrhea) RF: 0 doxycycline hyclate 100 mg tablet 100 mg PO BID Qty: 60 RF: 0 budesonide 3 mg capsule,delayed,extend.release 9 mg PO DAILY Qty: 90 RF: 1 sumatriptan succinate 25 mg tablet 25 mg PO ONCE PRN (Reason: Migraine Headache) Qty: 10 RF: 0 etonogestrel 68 MG implant 68 mg SQ .Q3YRS RF: 0 losartan 25 mg tablet 25 mg PO DAILY RF: 0 Vitamin B-12 500 mcg PO DAILY Qty: 90 RF: 1 cholecalciferol (vitamin D3) 50 mcg (2,000 unit) capsule 2,000 unit PO DAILY Qty: 90 RF: 2 sertraline 25 mg tablet 25 mg PO DAILY Qty: 90 RF: 3 levothyroxine 150 mcg tablet 150 mcg PO DAILY Qty: 30 RF: 0 aripiprazole 10 mg tablet 10 mg PO DAILY Qty: 60 RF: 1 Primary Care Provider: Ramya Ferrer Referrals: Ramya Ferrer MD [Primary Care Provider] - Disposition Disposition: Home, Self Care
[2021-04-30] MEDS: Naproxen 250 MG Tablet 500 MG PO (18:13)
[2021-04-30 18:16] LABS: Absolute Lymphocyte Count 1.93 X10^3/uL (0.83-4.51); Absolute Neutrophil Count 4.1 X10^3/uL (2.0-7.7); Basophil# 0.03 X10^3/uL; Basophil% 0.5 % (0-1); Eosinophil# 0.07 X10^3/uL; Eosinophils% 1.1 % (0-5); Hematocrit 37.8 % (37-47); Lymphocyte # 1.93 X10^3/ul (0.83-4.51); Lymphocyte % 29.6 % (19-41); Mean Corp Hgb Conc 31.7 g/dL (32-36); Mean Corpuscular Volume 88.1 fL (81-99); Mean Platelet Vol. 11.1 fl (6.2-12.0); Monocyte# 0.39 X10^3/uL; NRBC Flagged by Analyzer 0 % (0-5); Neutrophil # 4.08 X10^3/uL (2.7-7.7); Neutrophil % 62.5 % (47-70); Platelet Count 214 K/mm3 (150-450); RBC Distribution Width CV 13.1 % (11.6-14.6); RBC Distribution Width SD 41.9 fl (35.1-43.9); Red Blood Count 4.29 M/mm3 (4.2-5.4); White Blood Count 6.5 K/mm3 (4.4-11.0)
[2021-04-30 18:31] LABS: ALB/GLOB Ratio 0.9 RATIO (0.9-2.4); AST(SGOT) 18 U/L (15-37); Alanine Aminotransfer ALT/SGPT 20 U/L (13-56); Albumin, Serum 3.5 g/dL (3.2-5.0); Alkaline Phosphatase 74 U/L (45-117); Anion Gap 4 (5-15); BUN 14 mg/dL (7-18); BUN/Creat Ratio 9.2 RATIO (10-20); Calcium,Total 9.1 mg/dL (8.5-10.1); Chloride 112 mmol/L (98-107); Creatinine, Serum 1.53 mg/dL (0.55-1.02); EST Glomerular Filtration Rate 42 mL/min (>60); Erythrocyte Sedimentation Rate 16 mm/hr (0-30); Est Glom Filt Rate - Afr Amer 51 mL/min (>60); Globulin 4.1 g/dL (2.2-4.2); Glucose 87 mg/dL (74-106); Potassium 3.6 mmol/L (3.5-5.1); Protein, Total 7.6 g/dL (6.4-8.2); Sodium Level 141 mmol/L (136-145)
== END 2021-04-30 19:23 | disposition home or self-care (01) ==
PROVIDERS: Emergency Provider Emergency Medicine; PCP Internal Medicine
DX: M79.602 Pain in left arm (principal); M79.642 Pain in left hand; N18.6 End stage renal disease; K58.0 Irritable bowel syndrome with diarrhea; Z85.71 Personal history of Hodgkin lymphoma; F17.210 Nicotine dependence, cigarettes, uncomplicated; Z87.19 Personal history of other diseases of the digestive system; F32.A Depression, unspecified; F41.9 Anxiety disorder, unspecified; J45.909 Unspecified asthma, uncomplicated; D64.9 Anemia, unspecified; Z79.1 Long term (current) use of non-steroidal anti-inflammatories (NSAID)
CPT/HCPCS: 80053; 85025; 85652; 99284

== ENCOUNTER 2021-07-01 14:37 | Outpatient (CLI) | payer MEDICAID, SELFPAY ==
[2021-07-01 14:50] VITALS: BP 125/83; PULSE 72; RESP 16; TEMP 36.7; O2SAT 100; BMI 21.4
[2021-07-01] MEDS: 0.9% Saline Lock 10 ML Syringe IV (14:55)
[2021-07-01 15:18] VITALS: BP 117/76; PULSE 70; RESP 16; TEMP 36.8; O2SAT 100
[2021-07-01 16:10] VITALS: BP 110/78; PULSE 77; RESP 16; TEMP 36.8; O2SAT 100
== END 2021-07-01 23:59 | disposition home or self-care (01) ==
LOC: MS3OUT 14:38 → MS3 14:39
PROVIDERS: PCP Internal Medicine; Referring Provider Nurse Practitioner Adult Health; Visit Provider Nurse Practitioner Adult Health
DX: Z23 Encounter for immunization (principal); U07.1 COVID-19
CPT/HCPCS: J7050; M0243; A4216; Q0244

== ENCOUNTER 2021-07-25 18:43 | Emergency (ER) | payer MEDICAID, SELFPAY ==
[2021-07-25 18:46] VITALS: BP 130/119; PULSE 129; RESP 22; TEMP 36.6; O2SAT 95; BMI 20.2
--- NOTE | 2021-07-25 19:02 | EX.ED.SAOD ---
HPI <Dr. Torito Mensah MD - Last Filed: 07/25/21 21:25> History of Present Illness Chief Complaint: Substance Abuse Informant: patient Narrative Narrative: Patient presents saying that she has been withdrawing from drugs and she needs detox. She has been doing methamphetamine for the last week every day her last use was about 10 hours ago. States she is also been heavily using ecstasy, marijuana, and she is not sure what else because she does not trust the people that were giving it to her. She states she intentionally took a Suboxone this morning. She called her friend for help who brought her here to the emergency department. She states since, she has been feeling intermittent shakiness, nausea, she feels like she is having panic attacks off and on, she admits that her emotions have been extremely labile. PFSH <Dr. Torito Mensah MD - Last Filed: 07/25/21 21:25> [facility]LY [facility], [facility] Medical History Anemia Anxiety Asthma Cancer Chronic headaches COVID-19 Deafness in left ear Depression Drug abuse Flu vaccine need Hepatitis History of imperforate anus History of renal disease IBS (irritable bowel syndrome) Kidney disease Migraine headache Pancreatitis Seasonal allergies Smoker Tachycardia Thyroid disease Wears glasses Home Medications Vitamin B-12 500 mcg PO DAILY #90 unit 01/30/19 [Rx Last Taken Unknown] cholecalciferol (vitamin D3) 50 mcg (2,000 unit) capsule 2,000 unit PO DAILY #90 cap 06/07/19 [Rx Last Taken Unknown] etonogestrel 68 mg SQ .Q3YRS 11/21/19 [History Last Taken Unknown] loperamide 2 mg capsule 2 mg PO Q6H PRN 08/19/20 [History Last Taken Unknown] sertraline 25 mg tablet 25 mg PO DAILY #90 tab 09/18/20 [Rx Last Taken Unknown] levothyroxine 150 mcg tablet 150 mcg PO DAILY #30 tab 03/18/21 [Rx Last Taken Unknown] losartan 25 mg PO DAILY 03/18/21 [History Last Taken Unknown] budesonide 3 mg capsule,delayed,extended release 9 mg PO DAILY #90 ea 04/06/21 [Rx Last Taken Unknown] sumatriptan succinate 25 mg tablet 25 mg PO ONCE PRN #10 tab 04/12/21 [Rx Last Taken Unknown] aripiprazole 10 mg tablet 10 mg PO DAILY #60 tab 04/28/21 [Rx Last Taken Unknown] naproxen 500 mg PO BID #14 tab 04/30/21 [Rx Last Taken Unknown] Allergy/AdvReac Type Severity Reaction Status Date / Time ceftriaxone [From Rocephin] Allergy Unknown Verified 07/25/21 18:46 ceftriaxone sodium Allergy Hives Verified 07/25/21 18:46 [From Rocephin] droperidol Allergy Unknown Verified 07/25/21 18:46 LAXATIVE Allergy Unknown Uncoded 07/25/21 18:46 Family History Mother Depression Hypertension Mental disorder Thyroid disorder Aunt Diabetes Grandfather Alcoholism Cancer Surgical History History of removal of Port-a-Cath Hx of cystoscopy Hx of surgical procedure Social History household members: spouse and children Smoking Status: Current every day smoker tobacco type: cigarettes alcohol intake: never substance use type: former substance user Date of last use: 05/28/2018, crack/cocaine and heroin what type of physical activity do you participate in: aerobics and weight training frequency: 3-4 times per week ROS <Dr. Torito Mensah MD - Last Filed: 07/25/21 21:25> ROS ED Constitutional Constitutional ED: Denies chills or fever(s) Eyes Eyes: Denies change in vision or diplopia ENT ENT ED: Denies rhinorrhea or sore throat Cardiovascular Cardiovascular: Denies chest pain or palpitations Respiratory/Chest Respiratory/Chest: Denies cough or dyspnea Gastrointestinal Gastrointestinal: Reports nausea; Denies abdominal pain, diarrhea or vomiting Genitourinary Genitourinary ED: Denies dysuria or hematuria Musculoskeletal Musculoskeletal: Denies back pain or neck pain Integumentary Denies abscess or rash Neurologic Neurologic: Denies headache(s), paresthesias or weakness Psychiatric Psychiatric: Reports as per HPI, anxiety, mood swings and panic attacks; Denies hallucinations, suicidal ideation or suicidal thoughts EXAM <Dr. Torito Mensah MD - Last Filed: 07/25/21 21:25> Physical Exam Const Vital Signs: 07/25/21 18:46 07/25/21 20:34 07/25/21 22:16 Temperature 98 F Temperature Source Temporal Pulse Rate 129 H Respiratory Rate 22 H 16 20 H Blood Pressure 130/119 H Blood Pressure Mean 122 Pulse Ox 95 Oxygen Delivery Method Room Air 07/25/21 23:40 07/26/21 00:40 07/26/21 01:14 Temperature Temperature Source Pulse Rate 104 H Respiratory Rate 18 20 H 18 Blood Pressure 117/69 Blood Pressure Mean 85 Pulse Ox 99 Oxygen Delivery Method 07/26/21 02:20 07/26/21 03:43 07/26/21 04:12 Temperature Temperature Source Pulse Rate Respiratory Rate 18 18 32 H Blood Pressure Blood Pressure Mean Pulse Ox Oxygen Delivery Method Positive well nourished and well developed General Appearance ED: well developed, irritable and NAD HEENT Reports moist mucous membranes normocephalic and atraumatic Eyes PERRL and EOMs intact bilaterally Neck full ROM and supple Resp normal respiratory effort and clear to auscultation bilaterally Cardio regular rate, regular rhythm and no murmurs GI non-tender and non-distended Auscultation: normoactive bowel sounds Palpation: soft Back/Spine no CVA tenderness General Back: other FROM Extremity normal to inspection General Extremety ED: Negative for edema, pulses abnormal or tenderness General Extremity: Negative for edema or pulses abnormal Neuro oriented x3, CN's II-XII intact bilaterally and no sensory deficits noted Sensorium / Orientation: awake and alert Motor Exam: strength 5/5 throughout Psych speech normal, denies homicidal ideation and denies suicidal ideation Appearance: grossly normal and appropriate Mood & Affect: irritable and labile affect Thought Process: normal thought process and racing thoughts Thought Content: normal thought content Skin no rashes or lesions noted and no wounds <Dr. Av Ricci, DO - Last Filed: 07/26/21 04:19> Physical Exam Const Vital Signs: 07/25/21 18:46 07/25/21 20:34 07/25/21 22:16 Temperature 98 F Temperature Source Temporal Pulse Rate 129 H Respiratory Rate 22 H 16 20 H Blood Pressure 130/119 H Blood Pressure Mean 122 Pulse Ox 95 Oxygen Delivery Method Room Air 07/25/21 23:40 07/26/21 00:40 07/26/21 01:14 Temperature Temperature Source Pulse Rate 104 H Respiratory Rate 18 20 H 18 Blood Pressure 117/69 Blood Pressure Mean 85 Pulse Ox 99 Oxygen Delivery Method 07/26/21 02:20 07/26/21 03:43 07/26/21 04:12 Temperature Temperature Source Pulse Rate Respiratory Rate 18 18 32 H Blood Pressure Blood Pressure Mean Pulse Ox Oxygen Delivery Method MDM <Dr. Torito Mensha MD - Last Filed: 07/25/21 21:25> [facility] Narrative Medical decision making narrative: Patient continued to become very labile despite getting an injection of Ativan to help her with her symptoms, saying that she was going to go home and take pills if she was discharged, which we were not telling her we would do, however she and her friend are wanting admission to the hospital, we do not do inpatient detox for methamphetamine here. It is Monday, we do not have social work to assist in getting her to an outpatient detox, so I was waiting for crisis to respond to see if they could help get her to an outpatient detox facility tonight that could help her. However, with the patient now threatening suicide, I have placed a sitter in the room, and obtained medical labs so that I can clear her for crisis to evaluate her further. Her potassium is low, we gave her some oral replacement, I do not want to give her IV replacement since her creatinine is little higher than it usually is. She does have a history of chronic kidney disease. Her elevated creatinine does not require medical admission or other medical treatment at this time, simply follow-up closely. She is medically cleared for crisis to evaluate which I discussed with. Lab Data Attestation: I reviewed the patient's lab results. Labs: Laboratory Results - last 24 hr 07/25/21 07/25/21 07/25/21 20:10 20:17 20:17 WBC 8.8 RBC 5.00 Hgb 14.2 Hct 41.5 MCV 83.0 MCH 28.4 MCHC 34.2 RDW Std Deviation 37.3 RDW Coeff of Maki 12.4 Plt Count 195 MPV 11.0 Immature Gran % (Auto) 0.300 Neut % (Auto) 75.2 H Lymph % (Auto) 13.7 L Mill[place] % (Auto) 8.4 Eos % (Auto) 1.9 Baso % (Auto) 0.5 Absolute Neuts (auto) 6.6 Absolute Lymphs (auto) 1.21 Nucleated RBC % 0 Sodium 141 Potassium 3.0 L Chloride 110 H Carbon Dioxide 22.0 Anion Gap 9 BUN 14 Creatinine 2.04 H Estim Creat Clear Calc 39.59 Est GFR (MDRD) Af Amer 37 L Est GFR (MDRD) Non-Af 30 L BUN/Creatinine Ratio 6.9 L Glucose 96 Calcium 9.2 Total Bilirubin 0.40 AST 34 ALT 23 Alkaline Phosphatase 75 Total Protein 7.7 Albumin 3.4 Globulin 4.3 H Albumin/Globulin Ratio 0.8 L Serum , Qual Urine Opiates Screen NEGATIVE Urine Methadone Screen NEGATIVE Ur Barbiturates Screen NEGATIVE Ur Phencyclidine Scrn NEGATIVE Ur Amphetamines Screen POSITIVE H U Methamphetamin-MDMA POSITIVE H U Benzodiazepines Scrn NEGATIVE Urine Cocaine Screen NEGATIVE U Cannabinoids Screen NEGATIVE Ur Drug Screen Comment Ethyl Alcohol 07/25/21 07/25/21 20:17 20:17 WBC RBC Hgb Hct MCV MCH MCHC RDW Std Deviation RDW Coeff of Maki Plt Count MPV Immature Gran % (Auto) Neut % (Auto) Lymph % (Auto) [place] % (Auto) Eos % (Auto) Baso % (Auto) Absolute Neuts (auto) Absolute Lymphs (auto) Nucleated RBC % Sodium Potassium Chloride Carbon Dioxide Anion Gap BUN Creatinine Estim Creat Clear Calc Est GFR (MDRD) Af Amer Est GFR (MDRD) Non-Af BUN/Creatinine Ratio Glucose Calcium Total Bilirubin AST ALT Alkaline Phosphatase Total Protein Albumin Globulin Albumin/Globulin Ratio Serum , Qual NEGATIVE Urine Opiates Screen Urine Methadone Screen Ur Barbiturates Screen Ur Phencyclidine Scrn Ur Amphetamines Screen U Methamphetamin-MDMA U Benzodiazepines Scrn Urine Cocaine Screen U Cannabinoids Screen Ur Drug Screen Comment Ethyl Alcohol < 3.0 <Dr. Av Ricci, DO - Last Filed: 07/26/21 04:19> MDM MDM Narrative Medical decision making narrative: Care of the patient was turned over to me pending crisis evaluation. Crisis was able to place the patient in a psychiatric facility. Patient did become more anxious and required an additional dose of Ativan. Patient will be transferred to [facility]. Patient was accepted under the care of Dr. Hwang. Patient will be transferred. Patient understood and was agreeable with the plan. All questions were answered. Lab Data Labs: Laboratory Results - last 24 hr 07/25/21 07/25/21 07/25/21 20:10 20:17 20:17 WBC 8.8 RBC 5.00 Hgb 14.2 Hct 41.5 MCV 83.0 MCH 28.4 MCHC 34.2 RDW Std Deviation 37.3 RDW Coeff of Maki 12.4 Plt Count 195 MPV 11.0 Immature Gran % (Auto) 0.300 Neut % (Auto) 75.2 H Lymph % (Auto) 13.7 L [place] % (Auto) 8.4 Eos % (Auto) 1.9 Baso % (Auto) 0.5 Absolute Neuts (auto) 6.6 Absolute Lymphs (auto) 1.21 Nucleated RBC % 0 Sodium 141 Potassium 3.0 L Chloride 110 H Carbon Dioxide 22.0 Anion Gap 9 BUN 14 Creatinine 2.04 H Estim Creat Clear Calc 39.59 Est GFR (MDRD) Af Amer 37 L Est GFR (MDRD) Non-Af 30 L BUN/Creatinine Ratio 6.9 L Glucose 96 Calcium 9.2 Total Bilirubin 0.40 AST 34 ALT 23 Alkaline Phosphatase 75 Total Protein 7.7 Albumin 3.4 Globulin 4.3 H Albumin/Globulin Ratio 0.8 L Serum , Qual Urine Opiates Screen NEGATIVE Urine Methadone Screen NEGATIVE Ur Barbiturates Screen NEGATIVE Ur Phencyclidine Scrn NEGATIVE Ur Amphetamines Screen POSITIVE H U Methamphetamin-MDMA POSITIVE H U Benzodiazepines Scrn NEGATIVE Urine Cocaine Screen NEGATIVE U Cannabinoids Screen NEGATIVE Ur Drug Screen Comment Ethyl Alcohol 07/25/21 07/25/21 20:17 20:17 WBC RBC Hgb Hct MCV MCH MCHC RDW Std Deviation RDW Coeff of Maki Plt Count MPV Immature Gran % (Auto) Neut % (Auto) Lymph % (Auto) Millard % (Auto) Eos % (Auto) Baso % (Auto) Absolute Neuts (auto) Absolute Lymphs (auto) Nucleated RBC % Sodium Potassium Chloride Carbon Dioxide Anion Gap BUN Creatinine Estim Creat Clear Calc Est GFR (MDRD) Af Amer Est GFR (MDRD) Non-Af BUN/Creatinine Ratio Glucose Calcium Total Bilirubin AST ALT Alkaline Phosphatase Total Protein Albumin Globulin Albumin/Globulin Ratio Serum , Qual NEGATIVE Urine Opiates Screen Urine Methadone Screen Ur Barbiturates Screen Ur Phencyclidine Scrn Ur Amphetamines Screen U Methamphetamin-MDMA U Benzodiazepines Scrn Urine Cocaine Screen U Cannabinoids Screen Ur Drug Screen Comment Ethyl Alcohol < 3.0 Discharge Plan Triage Chief Complaint: Substance Abuse ED Provider: Torito Mensah Dx/Rx/DC Orders Clinical Impression: Polysubstance abuse, Suicide ideation, CKD (chronic kidney disease), Hypokalemia Prescriptions: No Action loperamide [Imodium A-D] 2 mg capsule 2 mg PO Q6H PRN (Reason: Diarrhea) RF: 0 budesonide 3 mg capsule,delayed,extend.release 9 mg PO DAILY Qty: 90 RF: 1 sumatriptan succinate 25 mg tablet 25 mg PO ONCE PRN (Reason: Migraine Headache) Qty: 10 RF: 0 etonogestrel 68 MG implant 68 mg SQ .Q3YRS RF: 0 losartan 25 mg tablet 25 mg PO DAILY RF: 0 naproxen 500 MG tablet 500 mg PO BID Qty: 14 RF: 0 Vitamin B-12 500 mcg PO DAILY Qty: 90 RF: 1 cholecalciferol (vitamin D3) 50 mcg (2,000 unit) capsule 2,000 unit PO DAILY Qty: 90 RF: 2 sertraline 25 mg tablet 25 mg PO DAILY Qty: 90 RF: 3 levothyroxine 150 mcg tablet 150 mcg PO DAILY Qty: 30 RF: 0 aripiprazole 10 mg tablet 10 mg PO DAILY Qty: 60 RF: 1 Primary Care Provider: Ramya Ferrer Referrals: Ramya Ferrer MD [Primary Care Provider] - Disposition Disposition: Psychiatric Hospital or Unit Discharge Location: Other Acute Care Hospital
[2021-07-25] MEDS: LORazepam 2 MG/ML Syringe IM (19:28)
[2021-07-25] MEDS: Ondansetron ODT 4 MG Tablet 8 MG PO (19:28)
[2021-07-25 20:30] LABS: Absolute Lymphocyte Count 1.21 X10^3/uL (0.83-4.51); Absolute Neutrophil Count 6.6 X10^3/uL (2.0-7.7); Basophil# 0.04 X10^3/uL; Basophil% 0.5 % (0-1); Eosinophil# 0.17 X10^3/uL; Eosinophils% 1.9 % (0-5); Hematocrit 41.5 % (37-47); Hemoglobin 14.2 g/dL (12.0-15.0); Lymphocyte # 1.21 X10^3/ul (0.83-4.51); Lymphocyte % 13.7 % (19-41); Mean Corp Hgb Conc 34.2 g/dL (32-36); Mean Corpuscular Hgb 28.4 pg (27.0-32.0); Monocyte# 0.74 X10^3/uL; Monocyte% 8.4 % (0-10); NRBC Flagged by Analyzer 0 % (0-5); Neutrophil # 6.62 X10^3/uL (2.7-7.7); Neutrophil % 75.2 % (47-70); Platelet Count 195 K/mm3 (150-450); RBC Distribution Width CV 12.4 % (11.6-14.6); RBC Distribution Width SD 37.3 fl (35.1-43.9); White Blood Count 8.8 K/mm3 (4.4-11.0)
[2021-07-25 20:34] VITALS: RESP 16
[2021-07-25 20:46] LABS: Alcohol, Blood (Medical)-Serum < 3.0 mg/dL
[2021-07-25 20:49] LABS: Amphetamine Urine VISTA POSITIVE (<1000 ng/mL); Barbiturate Urine VISTA NEGATIVE (< 200 ng/mL); Benzodiazepine Urine VISTA NEGATIVE (< 200 ng/mL); Cocaine Urine VISTA NEGATIVE (< 300 ng/mL); Ecstacy Urine VISTA POSITIVE (< 500 ng/mL); Methadone Urine VISTA NEGATIVE (< 300 ng/mL); PCP Urine VISTA NEGATIVE (< 25 ng/mL); THC Urine VISTA NEGATIVE (< 50 ng/mL); Vista UDS pH Range 6
[2021-07-25 20:49] LABS: ALB/GLOB Ratio 0.8 RATIO (0.9-2.4); AST(SGOT) 34 U/L (15-37); Alanine Aminotransfer ALT/SGPT 23 U/L (13-56); Albumin, Serum 3.4 g/dL (3.2-5.0); Alkaline Phosphatase 75 U/L (45-117); Anion Gap 9 (5-15); BUN 14 mg/dL (7-18); BUN/Creat Ratio 6.9 RATIO (10-20); Calcium,Total 9.2 mg/dL (8.5-10.1); Chloride 110 mmol/L (98-107); Creatinine, Serum 2.04 mg/dL (0.55-1.02); EST Glomerular Filtration Rate 30 mL/min (>60); Est Glom Filt Rate - Afr Amer 37 mL/min (>60); Estimated Creatinine Clearance 39.59 ml/min; Globulin 4.3 g/dL (2.2-4.2); Glucose 96 mg/dL (74-106); Protein, Total 7.7 g/dL (6.4-8.2); Sodium Level 141 mmol/L (136-145)
[2021-07-25 20:50] LABS: Internal QC Validated? YES +Cl - CLEAR BKGD; Pregnancy, Serum, hCG Quali. NEGATIVE Negative
--- NOTE | 2021-07-25 20:58 | ED.RN ---
JAYCE ALREADY SPOKE TO DR. CAMARILLO ABOUT THE PATIENT, SO I FAXED ALL PAPERWORK OVER TO CRISIS
[2021-07-25 22:16] VITALS: RESP 20
[2021-07-25] MEDS: Ondansetron ODT 4 MG Tablet PO (22:16)
[2021-07-25] MEDS: Potassium Chloride Oral Tablet 20 MEQ 40 MEQ PO (22:16)
--- NOTE | 2021-07-25 23:09 | ED.RN ---
CRISIS SAID THAT SHE IS GOING TO FORWARD HER TO [facility]
[2021-07-25 23:40] VITALS: BP 117/69; PULSE 104; RESP 18; O2SAT 99
[2021-07-26 00:40] VITALS: RESP 20
[2021-07-26 01:14] VITALS: RESP 18
--- NOTE | 2021-07-26 02:17 | ED.RN ---
[facility] CALLED, SAID THEY NEEDED A COVID TEST, WHEN THE RESULTS CAME BACK TO FAX THEM OVER AND THEN GIVE THEM A CALL ABOUT POSSIBLE PLACEMENT.
[2021-07-26 02:20] VITALS: RESP 18
[2021-07-26 03:43] VITALS: RESP 18
--- NOTE | 2021-07-26 03:48 | ED.RN ---
PATIENT ACCEPTED TO [facility]. THE PATIENT CANT LEAVE UNTIL AROUND 0730. CALLED PHYSICIANS THEY WILL BE HERE AFTER 0700 FOR HER.
[2021-07-26] MEDS: LORazepam 2 MG/ML Syringe 1 MG IM (04:10)
--- NOTE | 2021-07-26 04:10 | ED.RN ---
PT woke up in full panic attack. Attempted emotional support which was not well received. PT was hyperventilating, rocking back and forth. Order for Ativan received and given. PT vomited medication within 3 minutes. New order for IM Ativan ordered and given. PT requested juice. Ice chips given. A large amount of emotional support given by Kalyani hurst.
[2021-07-26 04:12] VITALS: RESP 32
[2021-07-26 05:34] VITALS: BP 120/65; PULSE 78; RESP 16; O2SAT 99
== END 2021-07-26 07:32 ==
PROVIDERS: Emergency Provider Emergency Medicine; PCP Internal Medicine; Visit Provider Emergency Medicine
DX: R45.851 Suicidal ideations (principal); F14.90 Cocaine use, unspecified, uncomplicated; F17.200 Nicotine dependence, unspecified, uncomplicated; E87.6 Hypokalemia; N18.9 Chronic kidney disease, unspecified; F15.90 Other stimulant use, unspecified, uncomplicated; Z79.899 Other long term (current) drug therapy
CPT/HCPCS: 80053; 80307; 82077; 84703; 85025; 87426; 96372; 99285

== ENCOUNTER 2021-08-12 12:28 | Emergency (ER) | payer MEDICAID, SELFPAY ==
[2021-08-12 12:30] VITALS: BP 121/89; PULSE 118; RESP 16; TEMP 35.6; O2SAT 97; BMI 19.9
--- NOTE | 2021-08-12 13:25 | EX.ED.VIS.HA ---
HPI History of Present Illness Chief Complaint: Headache Narrative Narrative: Patient with past medical history of migraine headaches, states she usually gets 1 month, presents with 3-day headache behind her left eye/in her left forehead. She endorses photophobia and phonophobia. She has also had nausea and vomiting. Yesterday, she rated her headache 20 out of ten, and today it is an 8 out of 10. She took sumatriptan yesterday but ran out. She states she is unable to hold down any fluids. She has not had to come to the emergency department and quite some time. She states her headache waxes and wanes, sometimes it will go away briefly but then return. She was able to drive herself to the emergency department today. Of note, she also states she has stage III kidney disease and her creatinine is usually below two, but she has a lower GFR between thirty and sixty. She is concerned because she is unable to hold down any fluids. She is not having any vaginal bleeding or any other symptoms. She states she is not because she has implantable control in place. [facility] Medical History Anemia Anxiety Asthma Cancer Chronic headaches COVID-19 Deafness in left ear Depression Drug abuse Flu vaccine need Hepatitis History of imperforate anus History of renal disease IBS (irritable bowel syndrome) Kidney disease Migraine headache Pancreatitis Seasonal allergies Smoker Tachycardia Thyroid disease Wears glasses Home Medications Vitamin B-12 500 mcg PO DAILY #90 unit 01/30/19 [Rx Last Taken Unknown] cholecalciferol (vitamin D3) 50 mcg (2,000 unit) capsule 2,000 unit PO DAILY #90 cap 06/07/19 [Rx Last Taken Unknown] etonogestrel 68 mg SQ .Q3YRS 11/21/19 [History Last Taken Unknown] loperamide 2 mg capsule 2 mg PO Q6H PRN 08/19/20 [History Last Taken Unknown] sertraline 25 mg tablet 25 mg PO DAILY #90 tab 09/18/20 [Rx Last Taken Unknown] levothyroxine 150 mcg tablet 150 mcg PO DAILY #30 tab 03/18/21 [Rx Last Taken Unknown] losartan 25 mg PO DAILY 03/18/21 [History Last Taken Unknown] budesonide 3 mg capsule,delayed,extended release 9 mg PO DAILY #90 ea 04/06/21 [Rx Last Taken Unknown] sumatriptan succinate 25 mg tablet 25 mg PO ONCE PRN #10 tab 04/12/21 [Rx Last Taken Unknown] aripiprazole 10 mg tablet 10 mg PO DAILY #60 tab 04/28/21 [Rx Last Taken Unknown] naproxen 500 mg PO BID #14 tab 04/30/21 [Rx Last Taken Unknown] sumatriptan succinate See Rx Instructions .ROUTE .COMPLEX #7 tab 08/12/21 [Rx Last Taken Unknown] Allergy/AdvReac Type Severity Reaction Status Date / Time ceftriaxone [From Rocephin] Allergy Unknown Verified 07/25/21 18:46 ceftriaxone sodium Allergy Hives Verified 07/25/21 18:46 [From Rocephin] droperidol Allergy Unknown Verified 07/25/21 18:46 LAXATIVE Allergy Unknown Uncoded 07/25/21 18:46 Family History Mother Depression Hypertension Mental disorder Thyroid disorder Aunt Diabetes Grandfather Alcoholism Cancer Surgical History History of removal of Port-a-Cath Hx of cystoscopy Hx of surgical procedure Social History household members: spouse and children Smoking Status: Current every day smoker tobacco type: cigarettes alcohol intake: never substance use type: former substance user Date of last use: 05/28/2018, crack/cocaine and heroin what type of physical activity do you participate in: aerobics and weight training frequency: 3-4 times per week ROS ROS ED ROS Narrative Constitutional: No fever, no chills. HEENT: No sore throat. No neck pain. No loss of vision. No rhinorrhea. Cardiovascular: No chest pain. No palpitations. No pedal edema. Respiratory: No cough, no shortness of breath. Abdominal: No abdominal pain. Positive nausea. Positive vomiting. Genitourinary: No dysuria. No hematuria. Musculoskeletal: No myalgias. No arthralgias. Neurologic: Left frontal headaches. No dizziness. No lightheadedness. Skin: No rash. No change in color. Psychiatric: No depression. No anxiety. EXAM Physical Exam Narrative Exam Narrative: Afebrile. Vital signs noted. HEENT: Normocephalic. Atraumatic. PERRL, EOMI. Neck soft and supple. No point tenderness or step off. Cardiovascular: Regular rate and rhythm with intermittent tachycardia. No murmurs, rubs, or gallops appreciated. Respiratory: No tachypnea. Lungs clear to auscultation bilaterally. Gastrointestinal: Abdomen soft, nontender, with normoactive bowel sounds. No rebound or guarding. Neurological: Awake. Alert. Nonfocal, nonlateralizing. Skin: No rash. Normal color. No pallor. Musculoskeletal: No pedal edema. Full range of motion extremities. Const Vital Signs: 08/12/21 12:30 Temperature 96.1 F L Temperature Source Temporal Pulse Rate 118 H Respiratory Rate 16 Blood Pressure 121/89 H Blood Pressure Mean 99 Pulse Ox 97 Oxygen Delivery Method Room Air MDM MDM MDM Narrative Medical decision making narrative: Patient will be bolused IV fluids. I will check her laboratory work given her history of stage III kidney disease. Although she has no tenderness, I will also check a lipase because of her continued vomiting. She was administered IV fluids, Compazine, and Benadryl. She has normal white count of 5.9, hemoglobin normal at 12.7. Chloride slightly elevated at 108. Creatinine 2.05, but appears at her baseline. Lipase is low at 41. Upon repeat examination, she states her headache has improved. I feel she be discharged safely home with follow-up to her primary care physician for possible consult to neurology should she be getting more frequent headaches/migraines. She was given a prescription for 7 sumatriptan 10 tablets to take as previously directed. Return instructions to the emergency department were reviewed. Disposition is discharged home in stable condition. Lab Data Attestation: I reviewed the patient's lab results. Labs: Laboratory Results - last 24 hr 08/12/21 08/12/21 13:50 13:50 WBC 5.9 RBC 4.41 Hgb 12.7 Hct 38.8 MCV 88.0 MCH 28.8 MCHC 32.7 RDW Std Deviation 39.5 RDW Coeff of Maki 12.3 Plt Count 198 MPV 10.7 Immature Gran % (Auto) 0.300 Neut % (Auto) 69.9 Lymph % (Auto) 19.3 [place] % (Auto) 8.0 Eos % (Auto) 2.0 Baso % (Auto) 0.5 Absolute Neuts (auto) 4.1 Absolute Lymphs (auto) 1.14 Nucleated RBC % 0 Sodium 138 Potassium 4.3 Chloride 108 H Carbon Dioxide 23.0 Anion Gap 7 BUN 14 Creatinine 2.05 H Estim Creat Clear Calc 38.79 Est GFR (MDRD) Af Amer 36 L Est GFR (MDRD) Non-Af 30 L BUN/Creatinine Ratio 6.8 L Glucose 92 Calcium 9.5 Lipase 41 L Discharge Plan Triage Chief Complaint: Headache ED Provider: Collin Arechiga Dx/Rx/DC Orders Clinical Impression: Migraine headache, Chronic kidney disease Instructions: ED, Migraine (Classical), ED Renal Insufficiency Prescriptions: New sumatriptan succinate 25 mg tablet See Rx Instructions .ROUTE .COMPLEX Qty: 7 RF: 0 No Action loperamide [Imodium A-D] 2 mg capsule 2 mg PO Q6H PRN (Reason: Diarrhea) RF: 0 budesonide 3 mg capsule,delayed,extend.release 9 mg PO DAILY Qty: 90 RF: 1 sumatriptan succinate 25 mg tablet 25 mg PO ONCE PRN (Reason: Migraine Headache) Qty: 10 RF: 0 etonogestrel 68 MG implant 68 mg SQ .Q3YRS RF: 0 losartan 25 mg tablet 25 mg PO DAILY RF: 0 naproxen 500 MG tablet 500 mg PO BID Qty: 14 RF: 0 Vitamin B-12 500 mcg PO DAILY Qty: 90 RF: 1 cholecalciferol (vitamin D3) 50 mcg (2,000 unit) capsule 2,000 unit PO DAILY Qty: 90 RF: 2 sertraline 25 mg tablet 25 mg PO DAILY Qty: 90 RF: 3 levothyroxine 150 mcg tablet 150 mcg PO DAILY Qty: 30 RF: 0 aripiprazole 10 mg tablet 10 mg PO DAILY Qty: 60 RF: 1 Primary Care Provider: Ramya Ferrer Referrals: Ramya Ferrer MD [Primary Care Provider] - 3-5 Days Disposition Disposition: Home, Self Care
[2021-08-12] MEDS: 0.9% Normal Saline 1,000 ML 999 ML IV (13:49)
[2021-08-12] MEDS: proCHLORPERazine 10 MG/2 ML Vial IV (13:50)
[2021-08-12] MEDS: DiphenhydrAMINE 50 MG/ML Syringe 25 MG IV (13:50)
[2021-08-12 14:00] LABS: Absolute Lymphocyte Count 1.14 X10^3/uL (0.83-4.51); Absolute Neutrophil Count 4.1 X10^3/uL (2.0-7.7); Basophil# 0.03 X10^3/uL; Basophil% 0.5 % (0-1); Eosinophil# 0.12 X10^3/uL; Hematocrit 38.8 % (37-47); Hemoglobin 12.7 g/dL (12.0-15.0); Lymphocyte # 1.14 X10^3/ul (0.83-4.51); Lymphocyte % 19.3 % (19-41); Mean Corp Hgb Conc 32.7 g/dL (32-36); Mean Corpuscular Hgb 28.8 pg (27.0-32.0); Mean Platelet Vol. 10.7 fl (6.2-12.0); Monocyte# 0.47 X10^3/uL; NRBC Flagged by Analyzer 0 % (0-5); Neutrophil # 4.12 X10^3/uL (2.7-7.7); Neutrophil % 69.9 % (47-70); Platelet Count 198 K/mm3 (150-450); RBC Distribution Width CV 12.3 % (11.6-14.6); RBC Distribution Width SD 39.5 fl (35.1-43.9); Red Blood Count 4.41 M/mm3 (4.2-5.4); White Blood Count 5.9 K/mm3 (4.4-11.0)
[2021-08-12 14:14] LABS: Anion Gap 7 (5-15); BUN 14 mg/dL (7-18); BUN/Creat Ratio 6.8 RATIO (10-20); Calcium,Total 9.5 mg/dL (8.5-10.1); Chloride 108 mmol/L (98-107); Creatinine, Serum 2.05 mg/dL (0.55-1.02); EST Glomerular Filtration Rate 30 mL/min (>60); Est Glom Filt Rate - Afr Amer 36 mL/min (>60); Estimated Creatinine Clearance 38.79 ml/min; Glucose 92 mg/dL (74-106); Lipase 41 U/L (73-393); Potassium 4.3 mmol/L (3.5-5.1); Sodium Level 138 mmol/L (136-145)
== END 2021-08-12 14:56 | disposition home or self-care (01) ==
PROVIDERS: Emergency Provider Emergency Medicine; PCP Internal Medicine; Visit Provider Emergency Medicine
DX: G43.909 Migraine, unspecified, not intractable, without status migrainosus (principal); N18.9 Chronic kidney disease, unspecified; F14.90 Cocaine use, unspecified, uncomplicated; F17.200 Nicotine dependence, unspecified, uncomplicated; Z86.16 Personal history of COVID-19
CPT/HCPCS: 80048; 83690; 85025; 96361; 96374; 96375; 99283; J7030; A4216

== ENCOUNTER 2021-09-03 11:52 | Emergency (ER) | payer MEDICAID, SELFPAY ==
[2021-09-03] VITALS (11 sets, daily range): BP systolic 109–117; BP diastolic 77–79; PULSE 71–102; RESP 16–20; TEMP 36.6; O2SAT 99–100; BMI 18.3
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
[2021-09-03 13:56] LABS: Absolute Lymphocyte Count 1.56 X10^3/uL (0.83-4.51); Absolute Neutrophil Count 6.7 X10^3/uL (2.0-7.7); Basophil# 0.06 X10^3/uL; Basophil% 0.6 % (0-1); Eosinophil# 0.57 X10^3/uL; Eosinophils% 5.9 % (0-5); Hemoglobin 12.9 g/dL (12.0-15.0); Lymphocyte # 1.56 X10^3/ul (0.83-4.51); Lymphocyte % 16.1 % (19-41); Mean Corp Hgb Conc 32.3 g/dL (32-36); Mean Corpuscular Hgb 28.6 pg (27.0-32.0); Mean Corpuscular Volume 88.7 fL (81-99); Monocyte# 0.77 X10^3/uL; Monocyte% 7.9 % (0-10); NRBC Flagged by Analyzer 0 % (0-5); Neutrophil % 69.1 % (47-70); Platelet Count 287 K/mm3 (150-450); RBC Distribution Width CV 12.5 % (11.6-14.6); RBC Distribution Width SD 40.6 fl (35.1-43.9); Red Blood Count 4.51 M/mm3 (4.2-5.4); White Blood Count 9.7 K/mm3 (4.4-11.0)
[2021-09-03 14:09] LABS: Anion Gap 8 (5-15); BUN 19 mg/dL (7-18); BUN/Creat Ratio 8.3 RATIO (10-20); Calcium,Total 9.5 mg/dL (8.5-10.1); Chloride 106 mmol/L (98-107); Creatinine, Serum 2.29 mg/dL (0.55-1.02); EST Glomerular Filtration Rate 27 mL/min (>60); Est Glom Filt Rate - Afr Amer 32 mL/min (>60); Estimated Creatinine Clearance 31.87 ml/min; Glucose 104 mg/dL (74-106); Potassium 3.3 mmol/L (3.5-5.1); Sodium Level 136 mmol/L (136-145)
[2021-09-03 14:19] LABS: Internal QC Validated? YES +Cl - CLEAR BKGD; Pregnancy, Serum, hCG Quali. NEGATIVE Negative
[2021-09-03 14:22] LABS: Alcohol, Blood (Medical)-Serum < 3.0 mg/dL
--- NOTE | 2021-09-03 16:01 | CM.ED ---
CUAUHTEMOC received call from Agustina at [facility]. Patient declined. Referred to IOP Program SW made referral to [facility]. CUAUHTEMOC made referral to [facility]. CUAUHTEMOC made referral to [facility]. CUAUHTEMOC made referral to [facility]. Barbara FREEMAN
[2021-09-03] MEDS: Ziprasidone IM 20 MG/ML VIAL IM (17:15)
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
--- NOTE | 2021-09-03 17:25 | EKG12_ITS ---
Test Reason : MENTAL HEALTH Blood Pressure : / mmHG Vent. Rate : 112 BPM Atrial Rate : 112 BPM P-R Int : 170 ms QRS Dur : 074 ms QT Int : 356 ms P-R-T Axes : 059 061 049 degrees QTc Int : 485 ms Sinus tachycardia Otherwise normal ECG Confirmed by YOSVANY PETERSON, MARCOS ([id number]), fashion editor CAROLINA WALSH ([id number]) on 09/06/2021 10:58:32 AM Referred By: JENNIFER/DIANE/LOVE/SRINIVASAN Confirmed By:MARCOS BAR MD
--- NOTE | 2021-09-03 18:06 | ED.RN ---
THIS RN WALKED PT TO THE BATHROOM AGAIN AND SHE WAS UNABLE TO GO
[2021-09-03 18:30] LABS: CPK Total, Creatine Kinase 82 U/L (26-192)
[2021-09-03 19:49] LABS: Amphetamine Urine VISTA POSITIVE (<1000 ng/mL); Barbiturate Urine VISTA NEGATIVE (< 200 ng/mL); Benzodiazepine Urine VISTA POSITIVE (< 200 ng/mL); Cocaine Urine VISTA POSITIVE (< 300 ng/mL); Ecstacy Urine VISTA NEGATIVE (< 500 ng/mL); Methadone Urine VISTA NEGATIVE (< 300 ng/mL); PCP Urine VISTA NEGATIVE (< 25 ng/mL); THC Urine VISTA POSITIVE (< 50 ng/mL); Vista UDS pH Range 6
--- NOTE | 2021-09-03 22:00 | CM.ED ---
CUAUHTEMOC Note CUAUHTEMOC called patient's mother as patient gave consent earlier in the day and updated her that patient is going to [facility]. Mother said that they are getting patient clothes at her apartment. Of note, earlier today SW had advised patient's mother to reach out to [facility] for support. Mother said that she needed to apply for guardianship. CUAUHTEMOC advised that probate court paperwork is on line. Sw also advised to contact volunteer guardianship program and social welfare clerk provided both [facility] and volunteer guardianship program number. At the end of the conversation patient said that she did not want to file for guardianship. Plan: [facility] for patient. Family has been updated Barbara FREEMAN
--- NOTE | 2021-09-03 22:04 | CM.ED ---
CUAUHTEMOC had faxed [facility] covid screen and copy of pink slip to [facility]. CUAUHTEMOC received call back from [facility]. Patient was accepted by Dr. Burns and going to the adult dual diagnosis unit. CUAUHTEMOC requested that Ignacio trade union secretary call for transport. Plan: [facility] accepted by Grant FREEMAN
--- NOTE | 2021-09-03 22:32 | ED.RN ---
ATTEMPTED TO CALL REPORT TO [facility], NO ANSWER.
--- NOTE | 2021-09-03 22:44 | ED.RN ---
ATTEMPTED TO CALL REPORT TO [facility], NO ANSWER.
[2021-09-03] MEDS: LORazepam 1 MG Tablet PO (23:35)
--- NOTE | 2021-09-04 | ED.RN ---
PHYSICIANS CALLED AT 0000 FOR UPDATE ON TRANSPORTATION. ETA CHANGED TO 0100 FROM [id number].
== END 2021-09-04 01:27 ==
PROVIDERS: Student in an Organized Health Care Education/Training Program; Emergency Provider Emergency Medicine; PCP Internal Medicine; Visit Provider Emergency Medicine
DX: F31.9 Bipolar disorder, unspecified (principal); F23 Brief psychotic disorder; F17.200 Nicotine dependence, unspecified, uncomplicated; F14.90 Cocaine use, unspecified, uncomplicated; Z86.16 Personal history of COVID-19; Z85.72 Personal history of non-Hodgkin lymphomas
CPT/HCPCS: 80048; 80307; 82077; 82550; 84703; 85025; 87811; 93005; 96372; 99285; J3486

== ENCOUNTER 2021-10-21 12:47 | Inpatient (IN) | payer MEDICAID, SELFPAY ==
[2021-10-21 12:48] VITALS: BP 108/87; PULSE 111; RESP 16; TEMP 36.6; O2SAT 100; BMI 16.5
--- NOTE | 2021-10-21 13:17 | EX.ED.SAOD ---
HPI History of Present Illness Chief Complaint: Substance Abuse Informant: patient Onset/Context/Timing Onset: Month(s) Context: Gradual Onset Timing: Continuous Current Severity: Moderate Maximum Severity: Moderate Narrative Narrative: 30-year-old female history of substance abuse including methamphetamines, heroin and cocaine. States she sees detox in the last 2 years. Relapsed and has been using consistently last 5 months. States that she does not do IV drugs but snorts the opiates. She has a history of mental illness and she was hospitalized for that within the last several months. She is looking for inpatient detox. Prior similar symptoms: Yes Recent Illness/Hospitalization: Yes [facility] Medical History (Updated 10/21/21 @ 14:33 by Mayuri Conway) Alcohol abuse Anemia Anxiety Asthma Bipolar disorder Chronic headaches COVID-19 Deafness in left ear Depression Drug abuse demise > 22 weeks, delivered, current hospitalization Flu vaccine need Hepatitis History of imperforate anus History of renal disease Hydronephrosis Hyperthyroidism IBS (irritable bowel syndrome) Kidney disease Menometrorrhagia Migraine Migraine headache Pancreatitis Pancreatitis Seasonal allergies Smoker Substance abuse Tachycardia Tobacco abuse Wears glasses Home Medications sertraline 25 mg tablet 25 mg PO DAILY #90 tab 08/26/21 [Rx Last Taken 10/20/21] aripiprazole 10 mg PO DAILY 10/21/21 [History Last Taken 10/20/21] buprenorphine-naloxone [Suboxone] 1 film SUBLINGUAL BID 10/21/21 [History Last Taken 10/21/21] levothyroxine 150 mcg PO DAILY 10/21/21 [History Last Taken 10/20/21] valacyclovir 500 mg PO DAILY 10/21/21 [History Last Taken 10/20/21] Allergy/AdvReac Type Severity Reaction Status Date / Time ceftriaxone [From Rocephin] Allergy Unknown Verified 10/21/21 12:49 ceftriaxone sodium Allergy Hives Verified 10/21/21 12:49 [From Rocephin] droperidol Allergy Unknown Verified 10/21/21 12:49 LAXATIVE Allergy Unknown Uncoded 10/21/21 12:49 Family History Mother Depression Hypertension Mental disorder Thyroid disorder Aunt Diabetes Grandfather Alcoholism Cancer Surgical History History of removal of Port-a-Cath Hx of cystoscopy Hx of surgical procedure Social History (Updated 10/21/21 @ 13:[address] Anabelle Ashley MD) household members: none Smoking Status: Current every day smoker tobacco type: cigarettes alcohol intake: never substance use type: crack/cocaine, heroin and other details: Currently snorts 1/2 gm daily of each heroin and cocaine. Also uses meth. what type of physical activity do you participate in: aerobics and weight training frequency: 3-4 times per week ROS ROS ED ROS Narrative Denies recent illness. Review of Systems ROS Unobtainable: Denies due to encephalopathy Constitutional Constitutional ED: Denies fever(s) Eyes Eyes: Denies change in vision ENT ENT ED: Denies ear pain Cardiovascular Cardiovascular: Denies chest pain Respiratory/Chest Respiratory/Chest: Denies dyspnea Gastrointestinal Gastrointestinal: Denies abdominal pain Genitourinary Genitourinary ED: Denies dysuria Musculoskeletal Musculoskeletal: Denies myalgias Integumentary Denies rash Neurologic Neurologic: Denies headache(s) Psychiatric Psychiatric: Denies depression Endocrine Endocrinology: Denies polyuria Hematologic/Lymphatic Hematologic/Lymphatic: Denies easy bruising Allergic/Immunologic Allergic/Immunologic ED: Denies urticaria EXAM Physical Exam Narrative Exam Narrative: 30-year-old female no acute distress vital signs stable afebrile. H EENT exam unremarkable. Lungs are clear. Heart regular rhythm rate about 110 no murmur. Abdomen soft nontender. Moving all 4 extremities. Nontender. No track quinones. Neurologically she is awake and alert. Const Vital Signs: 10/21/21 12:48 Temperature 97.8 F Temperature Source Oral Pulse Rate 111 H Respiratory Rate 16 Blood Pressure 108/87 H Blood Pressure Mean 94 Pulse Ox 100 Oxygen Delivery Method Room Air Positive well nourished and well developed; Negative for obese, cachectic, contractures or unkempt General Appearance ED: well developed and NAD; Negative for unkempt, cachectic, contractures or pallor Nutritional Appearance: Negative for cachectic or obese HEENT Reports moist mucous membranes atraumatic Eyes PERRL and EOMs intact bilaterally General Eye ED: Negative for pale conjunctiva or scleral icterus Neck no lymphadenopathy, supple and no JVD Thyroid: Negative for tender Lymph Lymphatic: no lymphadenopathy noted; Negative for lymphadenopathy Chest Wall inspection of chest normal and palpation of chest normal Resp normal respiratory effort and clear to auscultation bilaterally Auscultation: Negative for rales, rhonchi, wheezes or other Cardio regular rate, regular rhythm, S1 normal heart sound, S2 normal heart sound and no murmurs GI soft to palpation, non-tender, non-distended and no masses Inspection: Negative for abdominal distention Palpation: Negative for tender, guarding or rigid Back/Spine no CVA tenderness General Back: Negative for CVA tenderness Cervical Spine: Negative for cervical spine tenderness Thoracic Spine / Upper Back: Negative for thoracic spinal tenderness Extremity General Extremety ED: Yes tenderness; Negative for edema General Extremity: Negative for edema Neuro oriented x3 Sensorium / Orientation: alert, oriented to person, oriented to place and oriented to time; Negative for confused, lethargic or stuporous Motor Exam: strength 5/5 throughout Psych mental status grossly normal and thought process normal Appearance: Negative for unkempt Attitude: No agitated, No aggressive and No hostile Mood & Affect: Negative for depressed or tearful Skin General Skin Exam: Negative for jaundice or pallor Lesions: no lesions Rashes: no rashes MDM MDM MDM Narrative Medical decision making narrative: 30-year-old no acute distress requesting detox. Exam benign. Screening labs to be obtained. Have already spoken to the hospitalist and they will admit her for detox. Lab Data Attestation: I reviewed the patient's lab results. Lab results narrative: CBC showed a normal white count. H&H 11 and 35. Electrolytes showed a potassium of 3.2. She has chronic renal insufficiency her creatinine was 2.43. Tox screen was positive for an amphetamines and cocaine. test was negative. Discharge Plan Dx/Rx/DC Orders Clinical Impression: Drug abuse, Desire for detoxification, History of lymphoma Disposition Disposition: Acute Care Hospital [facility] Discharge Date/Time: 10/21/21 14:09
--- NOTE | 2021-10-21 13:23 | HP.PCM.HOS_ITS ---
HPI - General General Date of Admission: 10/21/21 Date of Service: 10/21/21 Chief Complaint: Acute Opiate Withdrawal HPI Narrative The patient is a 30 y/o F w/ PMHx: Chronic anemia, IBS/? 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 Patient states that she started using again approximately 5 months prior to current presentation but had been clean for several years. She notes that she specifically started using again because of inability to be able to see her son and treatment by her family specifically reporting her self as a being treated as if she were a pariah. Work-up in the ED included T97.8, heart rate 111, BP 108/87, respiratory rate 16, on her percent on room air, pending CBC, CMP, UDS, ethyl alcohol, testing upon evaluation. [facility] Medical History Anemia Anxiety Asthma Chronic headaches COVID-19 Deafness in left ear Depression Drug abuse demise > 22 weeks, delivered, current hospitalization Flu vaccine need Hepatitis History of imperforate anus History of renal disease Hydronephrosis IBS (irritable bowel syndrome) Menometrorrhagia Migraine Migraine headache Pancreatitis Seasonal allergies Smoker Tachycardia Tobacco abuse Wears glasses Home Medications Vitamin B-12 500 mcg PO DAILY #90 unit 01/30/19 [Rx Last Taken Unknown] cholecalciferol (vitamin D3) 50 mcg (2,000 unit) capsule 2,000 unit PO DAILY #90 cap 06/07/19 [Rx Last Taken Unknown] etonogestrel 68 mg SQ .Q3YRS 11/21/19 [History Last Taken Unknown] loperamide 2 mg capsule 2 mg PO Q6H PRN 08/19/20 [History Last Taken Unknown] losartan 25 mg PO DAILY 09/23/21 [History Last Taken Unknown] budesonide 3 mg capsule,delayed,extended release 9 mg PO DAILY #90 ea 04/06/21 [Rx Last Taken Unknown] sumatriptan succinate 25 mg tablet 25 mg PO ONCE PRN #10 tab 04/12/21 [Rx Last Taken Unknown] naproxen 500 mg PO BID #14 tab 04/30/21 [Rx Last Taken Unknown] sumatriptan succinate See Rx Instructions .ROUTE .COMPLEX #7 tab 08/12/21 [Rx Last Taken Unknown] sertraline 25 mg tablet 25 mg PO DAILY #90 tab 08/26/21 [Rx Last Taken Unknown] aripiprazole 10 mg tablet 10 mg PO DAILY #30 tab 09/24/21 [Rx Last Taken Unknown] levothyroxine 150 mcg tablet 150 mcg PO DAILY #30 tab 09/24/21 [Rx Last Taken Unknown] Allergy/AdvReac Type Severity Reaction Status Date / Time ceftriaxone [From Rocephin] Allergy Unknown Verified 10/21/21 12:49 ceftriaxone sodium Allergy Hives Verified 10/21/21 12:49 [From Rocephin] droperidol Allergy Unknown Verified 10/21/21 12:49 LAXATIVE Allergy Unknown Uncoded 10/21/21 12:49 Family History Mother Depression Hypertension Mental disorder Thyroid disorder Aunt Diabetes Grandfather Alcoholism Cancer Surgical History History of removal of Port-a-Cath Hx of cystoscopy Hx of surgical procedure Social History (Updated 10/21/21 @ 13:[address] Anabelle Ashley MD) household members: none Smoking Status: Current every day smoker tobacco type: cigarettes Smoking packs per day: 0.5 Smoking cigarettes per day: 10.0 Years smoked: 10 Smoking pack- years: 5.00 alcohol intake: never substance use type: crack/cocaine, heroin and other details: Currently snorts 1/2 gm daily of each heroin and cocaine. Also uses meth. what type of physical activity do you participate in: aerobics and weight training frequency: 3-4 times per week ROS ROS Narrative Admission Review of Systems: CONSTITUTIONAL: No weight loss, fever, + chills, weakness or fatigue. HEENT: + Congestion, rhinorrhea, Hx migraines. Eyes: No visual loss, blurred vision, double vision or yellow sclerae. Ears, Nose, Throat: No hearing loss, sneezing, or sore throat. SKIN: No rash or itching, lesions, wounds. CARDIOVASCULAR: No chest pain, chest pressure or chest discomfort, palpitations, edema, orthopnea, syncopal events. RESPIRATORY: No shortness of breath, cough or sputum, wheezing, hemoptysis. GASTROINTESTINAL: + anorexia, nausea without vomiting, abdominal cramping, No diarrhea, melena, BRBPR. GENITOURINARY: No dysuria, frequency, urgency or retention. NEUROLOGICAL: No headache, dizziness, syncope, paralysis, ataxia, numbness or tingling in the extremities, focal weakness, change in bowel or bladder control, seizure. MUSCULOSKELETAL: + muscle, back pain, joint pain or stiffness. HEMATOLOGIC: + anemia, bleeding or bruising. LYMPHATICS: No enlarged nodes. No history of splenectomy. PSYCHIATRIC: + history of depression or anxiety. ENDOCRINOLOGIC: No reports of sweating, cold or heat intolerance. No polyuria or polydipsia. ALLERGIES: + history of asthma, hives, eczema or rhinitis. Vital Signs Vital Signs Vital Signs: 10/21/21 12:48 Temperature 97.8 F Temperature Source Oral Pulse Rate 111 H Respiratory Rate 16 Blood Pressure 108/87 H Blood Pressure Mean 94 Pulse Ox 100 Oxygen Delivery Method Room Air Weight Weight: 112 lb Body Mass Index (BMI) 16.5 Physical Exam Narrative Physical Examination: General: Awake, alert, oriented x 3 and cooperative, seated upright in the ED bed, agitated, intermittently tearful with discussions. Skin: Normal color, normal turgor, no icterus, no cyanosis. HEENT: AT/NC, EOMI, PERRLA, dry MM, rhinorrhea evident, no carotid bruits or JVD noted. Lungs: Diminished, greater bases, appropriate effort, no rales, ronchi or wheezing. Heart: Tachycardic with regular rhythm; no gallop, rub audible. Abdomen: Soft, generalized discomfort with palpation, ND, hyperactive BS, no HSM. Extremities: No cyanosis, clubbing, or edema. Neurological: Patient awake, alert, oriented as noted, cognitive function intact; pupils equally reactive to light and accommodation, cranial nerves II- XII grossly normal, moving all 4 extremities, no focal deficits, strength mildly moderately global decrease secondary to acute presentation. Psychiatric: Affect appears fatigued, restless, anxious, tearful with history of bipolar disorder with anxiety/depression. Assessment & Plan Assessment/Plan (1) Opiate withdrawal: PLAN: The patient is a 30 y/o F w/ PMHx: Chronic anemia, IBS/? 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 #1. Acute Opiate Withdrawal: Will admit to MS, routine labs including CBC, CMP, urine for drug screen, testing requested and pending upon evaluation. Will admit to MS, will initiate and continue on protocol with tapering course of Subutex, as needed tylenol, ibuprofen, bowel regimen, gabapentin, Bentyl, Vistaril, methocarbamol, clonidine, PRN nightly trazodone for insomnia, IV fluids, IV antiemetics. Once patient clinically improved and completion of taper nearing will plan consultation with case management for transition to next level of rehabilitation care. #2. Polysubstance Abuse, History of Hepatitis C, Chronic: Patient with history per record of hepatitis C with recurrent usage of several substances over the last 5 months. Patient currently denies IVDA; however, per discussions to be cautious will obtain HIV, hepatitis panel to assess for co-infection. #3. Anxiety and depression/bipolar disorder: We will continue patient home sertraline, omeprazole regimen. #4. Hypothyroidism: We will continue patient home levothyroxine regimen. #5. Chronic Kidney Disease Stage III, unclear subtype with history of solitary congenital kidney: Admission BUN/Cr pending upon admission; however, most recent 09/03/2021 BUN/creatinine 19/2.29, baseline renal function 1.4-1.6 from - however labs in 2021 have increased to 2.0-2.2. Patient maintained on low- dose losartan. #6. IBS/?IBD: Following with GI per review of records, will continue patient home budesonide regimen. #7. Chronic migraines: If necessary may initiate patient home as needed sumatriptan regimen #8. Tobacco Abuse: Encouraged cessation, inpatient consultation per RT, NR if desired. #9. Chronic anemia: Pending admission labs, last noted 09/03/2021 hemoglobin 12.9. #10. DVT prophylaxis: Low risk for current presentation, encourage ambulation. Charges/Coding Visit Charges Inpatient E&M: 63570 Init Hosp L3
--- NOTE | 2021-10-21 13:45 | CM.ED ---
CUAUHTEMOC Note Referral Source: Case Find Referral Reason:RAMP CUAUHTEMOC met with patient.Patient is currently in IOP at [facility] and they convinced me to come here for detox. Patient said that she feels [facility] is supportive treatment. Patient is detoxing from opiates and crack. Last use was 4 days ago per patient. Patient has been in [facility] program before and verabalized understanding of the program including no phones, no visitors and personal items locked up. SW remains available if needs arise. CUAUHTEMOC called Luigi Nicholas, Addiction Therapist, and left voice mail for her advising her of patient's admission to the detox program. Barbara FREEMAN
[2021-10-21 13:50] VITALS: BP 108/87; PULSE 111; RESP 16; TEMP 36.6; O2SAT 100
[2021-10-21 13:56] LABS: Absolute Lymphocyte Count 1.82 X10^3/uL (0.83-4.51); Absolute Neutrophil Count 3.6 X10^3/uL (2.0-7.7); Basophil# 0.03 X10^3/uL; Basophil% 0.5 % (0-1); Eosinophil# 0.16 X10^3/uL; Eosinophils% 2.6 % (0-5); Hematocrit 35.4 % (37-47); Hemoglobin 11.5 g/dL (12.0-15.0); Lymphocyte # 1.82 X10^3/ul (0.83-4.51); Lymphocyte % 30.1 % (19-41); Mean Corp Hgb Conc 32.5 g/dL (32-36); Mean Corpuscular Hgb 27.7 pg (27.0-32.0); Mean Corpuscular Volume 85.3 fL (81-99); Mean Platelet Vol. 10.1 fl (6.2-12.0); Monocyte# 0.39 X10^3/uL; Monocyte% 6.5 % (0-10); NRBC Flagged by Analyzer 0 % (0-5); Neutrophil # 3.62 X10^3/uL (2.7-7.7); Platelet Count 277 K/mm3 (150-450); RBC Distribution Width CV 13.7 % (11.6-14.6); RBC Distribution Width SD 42.3 fl (35.1-43.9); Red Blood Count 4.15 M/mm3 (4.2-5.4)
[2021-10-21 14:12] LABS: Internal QC Validated? YES +Cl - CLEAR BKGD; Pregnancy, Serum, hCG Quali. NEGATIVE Negative
[2021-10-21 14:14] LABS: Amphetamine Urine VISTA POSITIVE (<1000 ng/mL); Barbiturate Urine VISTA NEGATIVE (< 200 ng/mL); Benzodiazepine Urine VISTA NEGATIVE (< 200 ng/mL); Cocaine Urine VISTA POSITIVE (< 300 ng/mL); Ecstacy Urine VISTA NEGATIVE (< 500 ng/mL); Methadone Urine VISTA NEGATIVE (< 300 ng/mL); PCP Urine VISTA NEGATIVE (< 25 ng/mL); THC Urine VISTA NEGATIVE (< 50 ng/mL); Vista UDS pH Range 5
[2021-10-21 14:15] LABS: ALB/GLOB Ratio 0.6 RATIO (0.9-2.4); AST(SGOT) 18 U/L (15-37); Alanine Aminotransfer ALT/SGPT 19 U/L (13-56); Alkaline Phosphatase 68 U/L (45-117); Anion Gap 5 (5-15); BUN 18 mg/dL (7-18); BUN/Creat Ratio 7.4 RATIO (10-20); Calcium,Total 9.5 mg/dL (8.5-10.1); Chloride 110 mmol/L (98-107); Creatinine, Serum 2.43 mg/dL (0.55-1.02); EST Glomerular Filtration Rate 25 mL/min (>60); Est Glom Filt Rate - Afr Amer 30 mL/min (>60); Estimated Creatinine Clearance 27.15 ml/min; Glucose 94 mg/dL (74-106); Potassium 3.2 mmol/L (3.5-5.1); Sodium Level 142 mmol/L (136-145)
[2021-10-21 14:16] LABS: Alcohol, Blood (Medical)-Serum < 3.0 mg/dL
[2021-10-21 14:26] VITALS: BMI 16.0
[2021-10-21 14:46] LABS: HIV - WCH Non-Reactive (Nonreactive)
[2021-10-21 15:21] LABS: Thyroid Stim Hormone (TSH) 5.54 uIU/mL (0.358-3.74)
--- NOTE | 2021-10-21 15:23 | NURSING ---
This RN taking over care of pt. Report received from Martínez QURESHI
[2021-10-21] MEDS: Lactated Ringers 1,000 ML 125 ML IV (15:49)
[2021-10-21 15:55] VITALS: BP 103/78; PULSE 87; RESP 16; TEMP 36.6; O2SAT 100
[2021-10-21 16:14] VITALS: O2SAT 100
[2021-10-21 19:28] VITALS: BP 109/76; PULSE 85; RESP 16; TEMP 36.7; O2SAT 99
[2021-10-21] MEDS: hydrOXYzine PAM 25 MG Capsule 50 MG PO (20:27)
[2021-10-21] MEDS: Buprenorphine HCl 2 MG TAB.SUBL SL (20:28)
[2021-10-21] MEDS: traZODone 100 MG Tablet PO (20:28)
[2021-10-21 23:54] VITALS: BP 95/72; PULSE 72; RESP 16; TEMP 36.6; O2SAT 100
[2021-10-22 04:38] VITALS: BP 101/68; PULSE 80; RESP 16; TEMP 37; O2SAT 100
[2021-10-22] MEDS: Buprenorphine HCl 2 MG TAB.SUBL SL ×3 (04:41→20:10)
[2021-10-22] MEDS: Levothyroxine 150 MCG Tablet PO (06:19)
[2021-10-22 10:00] VITALS: BP 86/56; PULSE 82; RESP 16; TEMP 2.9; TEMP 37.2; O2SAT 98
[2021-10-22] MEDS: ARIPiprazole 10 MG Tablet PO (10:29)
[2021-10-22] MEDS: Budesonide 3 MG CAPSULE.EC 9 MG PO (10:29)
[2021-10-22] MEDS: Sertraline 50 MG Tablet 25 MG PO (10:32)
[2021-10-22 11:01] LABS: Free T3 2.9 pg/mL (2.18-3.98); T4 Free Direct 1.02 ng/dL (0.76-1.46)
--- NOTE | 2021-10-22 11:10 | ADDICTION ---
This greeting card writer met with PT to conduct ASAM, MSE, AUDIT, DUDIT assessments and to plan for d/c. PT A+Ox4 and participated actively. All assessments completed and placed in PT's chart. PT plans to f/u with [facility] in [place] for follow-up treatment services. She has an appointment on 10/26 to continue her IOP treatment. PT did not indicate a need for transportation post d/c from [facility].
[2021-10-22 12:34] VITALS: BP 100/69; PULSE 81; RESP 16; TEMP 37; O2SAT 100
--- NOTE | 2021-10-22 14:25 | PN.HOSP_ITS ---
Subjective Subjective Follow-up on acute opioid withdrawal: Patient was seen and examined. Denied any new complaints. No acute events o vernight Objective Data Objective Data Vital Signs: Vital Signs Temp Pulse Resp BP Pulse Ox 98.6 F 81 16 100/69 100 10/22/21 12:34 10/22/21 12:34 10/22/21 12:34 10/22/21 12:34 10/22/21 12:34 Oxygen Delivery Method Room Air Weight: 49.396 kg Body Mass Index (BMI) 16.0 Intake & Output: Intake and Output for Last 24 Hours 10/20/21 10/21/21 10/22/21 23:59 23:59 23:59 Intake Total 1000 / 1000 480 / 480 Balance 1000 / 1000 480 / 480 Lab / Micro Data Result Diagrams: 10/21/21 13:40 10/21/21 13:40 Labs: Laboratory Results - last 24 hr 10/21/21 13:40: HIV 1&2 Antibody Non-Reactive 10/21/21 13:40: TSH 5.54 H 10/21/21 13:40: Free T4 1.02, Free T3 pg/dL 2.9 Physical Exam Narrative Physical exam: General: Alert, Oriented x3, Cooperative, No apparent distress HEENT: Atraumatic Oral: Moist Mucosa Neck: Supple Lungs: Clear to auscultation Cardiovascular: HS I+II, regular, no murmurs Abdomen: Bowel Sounds Present, Soft, Non Tender Extremities: No edema Skin: No rashes, No breakdown Neurological: Grossly intact Psych/Mental Status: Appropriate Assessment & Plan Assessment/Plan (1) Opiate withdrawal: PLAN: 1. Acute Opiate Withdrawal, improving, continue on Subutex withdrawal protocol 2. Polysubstance Abuse, History of Hepatitis C, Chronic: Patient with history per record of hepatitis C with recurrent usage of several substances over the last 5 months. Patient currently denies IVDA; however, per discussions to be cautious will obtain HIV, hepatitis panel to assess for co-infection. 3. Anxiety/depression/bipolar disorder, continue sertraline 4. Hypothyroidism: We will continue patient home levothyroxine regimen. 5. Rest of chronic medical conditions including CKD/IBS/nicotine dependence/anemia appears stable 6. DVT PPx-low risk, early ambulation recommended Charges/Coding Visit Charges Inpatient E&M: 75629 Subs Hosp L2
[2021-10-22 15:30] VITALS: BP 100/69; PULSE 98; RESP 18; TEMP 37; O2SAT 100
[2021-10-22 19:28] VITALS: BP 107/70; PULSE 76; RESP 16; TEMP 36.9; O2SAT 98
[2021-10-23 01:28] VITALS: BP 106/71; PULSE 68; RESP 18; TEMP 36.8; O2SAT 96
[2021-10-23 04:26] VITALS: BP 117/85; PULSE 62; RESP 18; TEMP 36.8; O2SAT 99
[2021-10-23] MEDS: Buprenorphine HCl 2 MG TAB.SUBL SL ×3 (04:28→19:59)
[2021-10-23] MEDS: Levothyroxine 150 MCG Tablet PO (04:30)
[2021-10-23 04:51] LABS: Absolute Neutrophil Count 4.5 X10^3/uL (2.0-7.7); Basophil# 0.02 X10^3/uL; Basophil% 0.3 % (0-1); Eosinophil# 0.14 X10^3/uL; Eosinophils% 2.1 % (0-5); Hemoglobin 10.9 g/dL (12.0-15.0); Lymphocyte % 26.7 % (19-41); Mean Corp Hgb Conc 31.1 g/dL (32-36); Mean Corpuscular Hgb 27.1 pg (27.0-32.0); Mean Corpuscular Volume 87.1 fL (81-99); Monocyte% 4.5 % (0-10); NRBC Flagged by Analyzer 0 % (0-5); Neutrophil # 4.45 X10^3/uL (2.7-7.7); Platelet Count 236 K/mm3 (150-450); RBC Distribution Width CV 13.6 % (11.6-14.6); RBC Distribution Width SD 43.5 fl (35.1-43.9); Red Blood Count 4.02 M/mm3 (4.2-5.4); White Blood Count 6.7 K/mm3 (4.4-11.0)
[2021-10-23 05:14] LABS: ALB/GLOB Ratio 0.6 RATIO (0.9-2.4); AST(SGOT) 14 U/L (15-37); Alanine Aminotransfer ALT/SGPT 18 U/L (13-56); Albumin, Serum 2.8 g/dL (3.2-5.0); Alkaline Phosphatase 54 U/L (45-117); Anion Gap 4 (5-15); BUN 23 mg/dL (7-18); BUN/Creat Ratio 11.7 RATIO (10-20); Calcium,Total 8.9 mg/dL (8.5-10.1); Chloride 112 mmol/L (98-107); Creatinine, Serum 1.96 mg/dL (0.55-1.02); EST Glomerular Filtration Rate 32 mL/min (>60); Est Glom Filt Rate - Afr Amer 38 mL/min (>60); Estimated Creatinine Clearance 32.73 ml/min; Globulin 4.8 g/dL (2.2-4.2); Glucose 88 mg/dL (74-106); Potassium 3.8 mmol/L (3.5-5.1); Protein, Total 7.6 g/dL (6.4-8.2); Sodium Level 141 mmol/L (136-145)
--- NOTE | 2021-10-23 08:23 | PN.HOSP_ITS ---
Subjective Subjective Follow-up on acute opioid withdrawal: Patient was seen and examined. Denied any new complaints. No acute events o vernight Objective Data Objective Data Vital Signs: Vital Signs Temp Pulse Resp BP Pulse Ox 98.2 F 62 18 117/85 H 99 10/23/21 04:26 10/23/21 04:26 10/23/21 04:26 10/23/21 04:26 10/23/21 04:26 Oxygen Delivery Method Room Air Weight: 49.4 kg Body Mass Index (BMI) 16.0 Intake & Output: Intake and Output for Last 24 Hours 10/21/21 10/22/21 10/23/21 23:59 23:59 23:59 Intake Total 1000 / 1000 1200 / 1500 600 / 600 Balance 1000 / 1000 1200 / 1500 600 / 600 Medical Nutrition Assessment Dietitian: Malnutrition Criteria Met Start: 10/22/21 15:40 Freq: Status: Active Protocol: Document 10/22/21 15:41 RMA (Rec: 10/22/21 15:41 RMA [id number]) Nutrition Malnutrition Evidence of Malnutrition Exists Yes Malnutrition (severe): Chronic,Social/Behavioral/ Environmental Evidenced By Suboptimal Energy Intake ( Severe),Weight Loss (Severe), Physical Changes (Moderate), Physical Changes (Severe) Clinical Problem Chronic Disease or Condition Related Malnutrition Etiology Severe protein-calorie malnutrition in the context of chronic disease and social circumstance related to inadequate oral intake, poor appetite and drug abuse Signs/Symptoms as evidenced by ~22% wt loss x past 5-6 months, BMI 16.1, PO meeting less than 50% estimated nutrition needs x past 6 months and moderate to severe muscle/protein and fat wasting in the face, clavicle, arms Status Active Problem Recommendation Dietitian Recommendations/Changes Will continue regular diet as ordered with 3 snacks as tolerated per day. Will continue 120 ml ensure enlive 4 times per day w/ medpass as ordered. Will add magic cup BID w/ lunch and dinner. Lab / Micro Data Result Diagrams: 10/23/21 04:35 10/23/21 04:35 Labs: Laboratory Results - last 24 hr 10/21/21 13:40: Free T4 1.02, Free T3 pg/dL 2.9 10/23/21 04:35: WBC 6.7, RBC 4.02 L, Hgb 10.9 L, Hct 35.0 L, MCV 87.1, MCH 27.1, MCHC 31.1 L, RDW Std Deviation 43.5, RDW Coeff of Maki 13.6, Plt Count 236, MPV 10.0, Immature Gran % (Auto) 0.400, Neut % (Auto) 66.0, Lymph % (Auto) 26.7, [place] % (Auto) 4.5, Eos % (Auto) 2.1, Baso % (Auto) 0.3, Absolute Neuts (auto) 4.5, Absolute Lymphs (auto) 1.80, Nucleated RBC % 0 10/23/21 04:35: Sodium 141, Potassium 3.8, Chloride 112 H, Carbon Dioxide 25.0, Anion Gap 4 L, BUN 23 H, Creatinine 1.96 H, Estim Creat Clear Calc 32.73, Est GFR (MDRD) Af Amer 38 L, Est GFR (MDRD) Non-Af 32 L, BUN/Creatinine Ratio 11.7, Glucose 88, Calcium 8.9, Total Bilirubin 0.20, AST 14 L, ALT 18, Alkaline Phosphatase 54, Total Protein 7.6, Albumin 2.8 L, Globulin 4.8 H, Albumin/Marni bulin Ratio 0.6 L Physical Exam Narrative Physical exam: General: Alert, Oriented x3, Cooperative, No apparent distress HEENT: Atraumatic Oral: Moist Mucosa Neck: Supple Lungs: Clear to auscultation Cardiovascular: HS I+II, regular, no murmurs Abdomen: Bowel Sounds Present, Soft, Non Tender Extremities: No edema Assessment & Plan Assessment/Plan (1) Opiate withdrawal: PLAN: 1. Acute Opiate Withdrawal, improving, continue on Subutex withdrawal protocol 2. Polysubstance Abuse, advised to quit 3. Anxiety/depression/bipolar disorder, continue sertraline, Abilify 4. Hypothyroidism, continue on Synthroid 5. Hypertension, controlled, continue on Losartan 6. Rest of chronic medical conditions including CKD/IBS/nicotine dependence/anemia appears stable Continue home meds 7. Severe protein calorie malnutrition, dietitian consulted, continue supplement 8. DVT PPx-low risk, early ambulation recommended Charges/Coding Visit Charges Inpatient E&M: 34845 Subs Hosp L2
[2021-10-23] MEDS: Budesonide 3 MG CAPSULE.EC 9 MG PO (09:54)
[2021-10-23] MEDS: ARIPiprazole 10 MG Tablet PO (09:54)
[2021-10-23] MEDS: Sertraline 50 MG Tablet 25 MG PO (09:55)
[2021-10-23 09:58] VITALS: BP 104/72; PULSE 71; RESP 16; TEMP 36.7; O2SAT 98
[2021-10-23 15:35] VITALS: BP 100/65; PULSE 80; RESP 14; TEMP 37.1; O2SAT 99
[2021-10-23 20:11] VITALS: BP 113/86; PULSE 78; RESP 16; TEMP 36.7; O2SAT 97
[2021-10-23] MEDS: Albuterol 2.5 MG/3 ML VIAL.NEB. INHALATION (20:25)
[2021-10-23 20:27] VITALS: PULSE 97; RESP 14
[2021-10-23] MEDS: Methocarbamol 750 MG Tablet 1500 MG PO (22:47)
[2021-10-23] MEDS: traZODone 100 MG Tablet PO (22:47)
[2021-10-24 02:03] VITALS: BP 92/60; PULSE 78; RESP 14; TEMP 36.9; O2SAT 97
[2021-10-24 04:57] LABS: Mucous, Urine 0 SEEN /hpf (<or=2+)
[2021-10-24 05:02] LABS: Color, Urine Yellow (Yellow); Glucose, Dipstick Normal (Normal); Ketone-Dipstick Negative (Negative); Leukocyte Esterase-Dipstick 500 /ul (Negative); Nitrite-Dipstick Negative (Negative); Occult Blood-Urine 50 /ul (Negative); Protein-Dipstick 100 mg/dl (Negative); Specific Gravity, Urine 1.015 (1.002-1.030); Urine Bilirubin Dipstick Negative (Negative); Urine Clarity Turbid (Clear); Urine Urobilinogen Normal (Normal)
[2021-10-24 05:13] LABS: Bacteria 4+ /hpf (None Seen); Red Blood Cells-Urine 0-5 SEEN /hpf (0-5); Squamous Epithelial Cells - UA 0-5 SEEN /hpf (5-10); White Blood Cells >100 SEEN /hpf (0-5)
[2021-10-24 05:32] VITALS: BP 100/67; PULSE 78; RESP 16; TEMP 36.7; O2SAT 98
[2021-10-24] MEDS: Levothyroxine 150 MCG Tablet PO (05:32)
[2021-10-24 07:55] LABS: Absolute Lymphocyte Count 2.27 X10^3/uL (0.83-4.51); Absolute Neutrophil Count 4.4 X10^3/uL (2.0-7.7); Basophil# 0.03 X10^3/uL; Basophil% 0.4 % (0-1); Eosinophil# 0.12 X10^3/uL; Eosinophils% 1.7 % (0-5); Hematocrit 30.2 % (37-47); Hemoglobin 9.4 g/dL (12.0-15.0); Lymphocyte # 2.27 X10^3/ul (0.83-4.51); Lymphocyte % 31.7 % (19-41); Mean Corp Hgb Conc 31.1 g/dL (32-36); Mean Corpuscular Hgb 27.3 pg (27.0-32.0); Mean Corpuscular Volume 87.8 fL (81-99); Mean Platelet Vol. 10.5 fl (6.2-12.0); Monocyte# 0.32 X10^3/uL; Monocyte% 4.5 % (0-10); NRBC Flagged by Analyzer 0 % (0-5); Neutrophil # 4.39 X10^3/uL (2.7-7.7); Neutrophil % 61.3 % (47-70); Platelet Count 226 K/mm3 (150-450); RBC Distribution Width CV 13.5 % (11.6-14.6); RBC Distribution Width SD 43.5 fl (35.1-43.9); Red Blood Count 3.44 M/mm3 (4.2-5.4); White Blood Count 7.2 K/mm3 (4.4-11.0)
[2021-10-24] MEDS: Nitrofurantoin Macrocrystals 100 MG Capsule PO (07:55)
[2021-10-24] MEDS: Buprenorphine HCl 2 MG TAB.SUBL SL (07:56)
[2021-10-24 08:17] LABS: ALB/GLOB Ratio 0.6 RATIO (0.9-2.4); AST(SGOT) 11 U/L (15-37); Alanine Aminotransfer ALT/SGPT 13 U/L (13-56); Albumin, Serum 2.5 g/dL (3.2-5.0); Alkaline Phosphatase 46 U/L (45-117); Anion Gap 7 (5-15); BUN 29 mg/dL (7-18); BUN/Creat Ratio 15.2 RATIO (10-20); Calcium,Total 8.5 mg/dL (8.5-10.1); Chloride 110 mmol/L (98-107); Creatinine, Serum 1.91 mg/dL (0.55-1.02); EST Glomerular Filtration Rate 33 mL/min (>60); Est Glom Filt Rate - Afr Amer 39 mL/min (>60); Estimated Creatinine Clearance 33.59 ml/min; Globulin 4.3 g/dL (2.2-4.2); Glucose 101 mg/dL (74-106); Potassium 3.3 mmol/L (3.5-5.1); Protein, Total 6.8 g/dL (6.4-8.2); Sodium Level 140 mmol/L (136-145)
--- NOTE | 2021-10-24 10:04 | PCM.DC ---
Discharge Instructions Diet Discharge Diet: 2000 mg Sodium Diet Activity Discharge Activity: Return to Normal Activity Follow Up Care Test Results: Test results from this visit will be discussed in further detail at your follow-up appointment, if applicable. Discharge Plan Admission Admit Date/Time: 10/21/21 13:23 Primary Reason for Your Visit: Acute opioid withdrawal Attending Provider: Eunice Akins Primary Care Provider: Ramya Ferrer Instructions Additional Instructions / Restrictions: You are strongly advised to continue to avoid use of opioids. You are also advised to stop smoking. Follow-up with your outpatient drug rehab program as scheduled. You need repeat blood work within a week to follow-up on your kidney function. Discharge Orders/Prescriptions Prescriptions: New losartan 25 mg Tablet 25 mg PO DAILY Qty: 0 RF: 0 Continued valacyclovir 500 mg tablet 500 mg PO DAILY RF: 0 buprenorphine-naloxone [Suboxone] 4-1 mg Film 1 film SUBLINGUAL BID RF: 0 levothyroxine 150 mcg tablet 150 mcg PO DAILY RF: 0 aripiprazole 10 mg tablet 10 mg PO DAILY RF: 0 sertraline 25 mg tablet 25 mg PO DAILY Qty: 90 RF: 3 Referrals / Follow Up: Chioma Mtz DO [STAFF PHYSICIAN] - In 1 Week Ramya Ferrer MD [Primary Care Provider] - In 1 Week Disposition Disposition (needs filled in before D/C Order can be placed): Home, Self Care
--- NOTE | 2021-10-24 10:12 | DS.PCM_ITS ---
Providers Date of Admission: 10/21/21 Date of Discharge: 10/24/21 Primary Care Physician: Dr. Ramya Ferrer MD Reason For Visit: ACUTE OPIATE WITHDRAWAL Diagnosis Discharge Diagnosis (1) Opiate withdrawal: Status: Acute Code(s): F11.23 - Opioid dependence with withdrawal (2) Hypokalemia: Status: Resolved Code(s): E87.6 - Hypokalemia (3) Severe protein-calorie malnutrition: Status: Acute Code(s): E43 - Unspecified severe protein-calorie malnutrition Medications at Discharge Home Medications sertraline 25 mg tablet 25 mg PO DAILY #90 tab 08/26/21 aripiprazole 10 mg PO DAILY 10/21/21 buprenorphine-naloxone [Suboxone] 1 film SUBLINGUAL BID 10/21/21 levothyroxine 150 mcg PO DAILY 10/21/21 valacyclovir 500 mg PO DAILY 10/21/21 losartan 25 mg PO DAILY #0 tab 10/24/21 Hospital Course Operations None Procedures None Summary of Care Provided Minutes Spent on Discharge: 35 Hospital Course: 30 y/o female with PMHx of CKD/solitary congenital kidney, Hypothyroidism, anxiety/depression/bipolar disorder and polysubstance use who presents with abdominal crampiong, generalised body aches, rhinorrhea, piloerection and restlessness. Patient snorts 1/2 gram of heroin and cocaine. Patient was admitted and managed as acute opioid withdrawal with Subutex. There were no acute events overnight. Patient continued to do well. Her renal function continued to remain stable. She was seen by the home economics extension worker. She will follow-up in the outpatient for IOP treatment. Physical Exam Narrative Physical exam: General: Alert, Oriented x3, Cooperative, No apparent distress HEENT: Atraumatic Oral: Moist Mucosa Neck: Supple Lungs: Clear to auscultation Cardiovascular: HS I+II, regular, no murmurs Abdomen: Bowel Sounds Present, Soft, Non Tender Extremities: No edema Medical Records Data Medical Nutrition Assessment Dietitian: Malnutrition Criteria Met Start: 10/22/21 15:40 Freq: Status: Active Protocol: Document 10/22/21 15:41 RMA (Rec: 10/22/21 15:41 RMA [id number]) Nutrition Malnutrition Evidence of Malnutrition Exists Yes Malnutrition (severe): Chronic,Social/Behavioral/ Environmental Evidenced By Suboptimal Energy Intake ( Severe),Weight Loss (Severe), Physical Changes (Moderate), Physical Changes (Severe) Clinical Problem Chronic Disease or Condition Related Malnutrition Etiology Severe protein-calorie malnutrition in the context of chronic disease and social circumstance related to inadequate oral intake, poor appetite and drug abuse Signs/Symptoms as evidenced by ~22% wt loss x past 5-6 months, BMI 16.1, PO meeting less than 50% estimated nutrition needs x past 6 months and moderate to severe muscle/protein and fat wasting in the face, clavicle, arms Status Active Problem Recommendation Dietitian Recommendations/Changes Will continue regular diet as ordered with 3 snacks as tolerated per day. Will continue 120 ml ensure enlive 4 times per day w/ medpass as ordered. Will add magic cup BID w/ lunch and dinner. Weight / BMI Weight Weight: 49.4 kg Body Mass Index (BMI) 16.0 ABG / Lab / Microbiology Data Result Diagrams: 10/24/21 06:09 10/24/21 06:09 Laboratory: Laboratory Results - last 24 hr 10/23/21 21:46: Urine Color Yellow, Urine Clarity Turbid, Urine pH 6.0, Ur Specific [place] 1.015, Urine Protein 100 H, Urine Glucose (UA) Normal, Urine Ketones Negative, Urine Occult Blood 50 H, Urine Nitrite Negative, Urine Bilirubin Negative, Urine Urobilinogen Normal, Ur Leukocyte Esterase 500 H, Urine RBC 0-5 SEEN, Urine WBC >100 SEEN, Ur Squamous Epith Cells 0-5 SEEN, Urine Bacteria 4+, Urine Mucus 0 SEEN 10/24/21 06:09: WBC 7.2, RBC 3.44 L, Hgb 9.4 L, Hct 30.2 L, MCV 87.8, MCH 27.3, MCHC 31.1 L, RDW Std Deviation 43.5, RDW Coeff of Maki 13.5, Plt Count 226, MPV 10.5, Immature Gran % (Auto) 0.400, Neut % (Auto) 61.3, Lymph % (Auto) 31.7, [place] % (Auto) 4.5, Eos % (Auto) 1.7, Baso % (Auto) 0.4, Absolute Neuts (auto) 4.4, Absolute Lymphs (auto) 2.27, Nucleated RBC % 0 10/24/21 06:09: Sodium 140, Potassium 3.3 L, Chloride 110 H, Carbon Dioxide 23.0, Anion Gap 7, BUN 29 H, Creatinine 1.91 H, Estim Creat Clear Calc 33.59, Est GFR (MDRD) Af Amer 39 L, Est GFR (MDRD) Non-Af 33 L, BUN/Creatinine Ratio 15.2, Glucose 101, Calcium 8.5, Total Bilirubin 0.30, AST 11 L, ALT 13, Alkaline Phosphatase 46, Total Protein 6.8, Albumin 2.5 L, Globulin 4.3 H, Albumin/Globulin Ratio 0.6 L D/C Instructions Discharge Diet: 2000 mg Sodium Diet Meaningful Use Info Meaningful Use Diagnoses (Choose all that apply): None applicable Discharge Plan Admission Admit Date/Time: 10/21/21 13:23 Primary Reason for Your Visit: Acute opioid withdrawal Attending Provider: Eunice Akins Primary Care Provider: Ramya Ferrer Instructions Additional Instructions / Restrictions: You are strongly advised to continue to avoid use of opioids. You are also advised to stop smoking. Follow-up with your outpatient drug rehab program as scheduled. You need repeat blood work within a week to follow-up on your kidney function. Discharge Orders/Prescriptions Prescriptions: New losartan 25 mg Tablet 25 mg PO DAILY Qty: 0 RF: 0 Continued valacyclovir 500 mg tablet 500 mg PO DAILY RF: 0 buprenorphine-naloxone [Suboxone] 4-1 mg Film 1 film SUBLINGUAL BID RF: 0 levothyroxine 150 mcg tablet 150 mcg PO DAILY RF: 0 aripiprazole 10 mg tablet 10 mg PO DAILY RF: 0 sertraline 25 mg tablet 25 mg PO DAILY Qty: 90 RF: 3 Referrals / Follow Up: Chioma Mtz DO [STAFF PHYSICIAN] - In 1 Week Ramya Ferrer MD [Primary Care Provider] - In 1 Week Disposition Disposition (needs filled in before D/C Order can be placed): Home, Self Care Charges/Coding Visit Charges Inpatient E&M: 73825 Disch Hosp
[2021-10-24 10:22] VITALS: BP 92/55; PULSE 70; RESP 16; TEMP 36.6; O2SAT 99
[2021-10-24] MEDS: Dicyclomine 10 MG Capsule 20 MG PO (10:31)
[2021-10-24] MEDS: Sertraline 50 MG Tablet 25 MG PO (10:32)
[2021-10-24] MEDS: Budesonide 3 MG CAPSULE.EC 9 MG PO (10:32)
[2021-10-24] MEDS: ARIPiprazole 10 MG Tablet PO (10:32)
[2021-10-24] MEDS: Potassium Chloride Oral Tablet 20 MEQ 40 MEQ PO (11:03)
== END 2021-10-24 13:55 | disposition home or self-care (01) | DRG 773 ==
LOC: ED 13:24 → PCU 13:40
PROVIDERS: Hospitalist; Admitting Provider Family Medicine; Emergency Provider Emergency Medicine; PCP Internal Medicine; Visit Provider Internal Medicine
DX: F11.23 Opioid dependence with withdrawal (principal); E43 Unspecified severe protein-calorie malnutrition; Q60.0 Renal agenesis, unilateral; F31.9 Bipolar disorder, unspecified; D63.1 Anemia in chronic kidney disease; N18.30 Chronic kidney disease, stage 3 unspecified; K58.9 Irritable bowel syndrome, unspecified; F17.210 Nicotine dependence, cigarettes, uncomplicated; E03.9 Hypothyroidism, unspecified; F15.90 Other stimulant use, unspecified, uncomplicated; F14.90 Cocaine use, unspecified, uncomplicated; G43.709 Chronic migraine without aura, not intractable, without status migrainosus; F41.9 Anxiety disorder, unspecified; I12.9 Hypertensive chronic kidney disease with stage 1 through stage 4 chronic kidney disease, or unspecified chronic kidney disease; E87.6 Hypokalemia; Z68.1 Body mass index [BMI] 19.9 or less, adult
CPT/HCPCS: 36415; 80053; 80307; 81001; 82077; 84439; 84443; 84481; 84703; 85025; 86703; 86704; 86705; 86706; 86707; 86803; 87077; 87086; 87088; 87186; 87340; 87350; 94640; 97802; 99284; 99406; J7120; A4216

== ENCOUNTER 2023-08-03 08:38 | Emergency (ER) | payer MEDICAID, SELFPAY ==
[2023-08-03 08:40] VITALS: BP 171/105; PULSE 109; RESP 22; TEMP 36.8; O2SAT 99; BMI 18.6
--- NOTE | 2023-08-03 09:04 | CT_ITS ---
STUDY: CT BRAIN WITHOUT CONTRAST REASON FOR EXAM: Female, 32 years old. Change in Mental Status RADIATION DOSAGE (If Supplied By Facility): CTDIvol = ( 44.99 ) mGy, DLP = ( 745.49 ) mGycm TECHNIQUE: Transaxial CT imaging of the brain was performed without administration of intravenous contrast material. Individualized dose optimization techniques were used for this CT. COMPARISON: No relevant priors. FINDINGS: Normal soft tissue structures. Normal calvarium. Normal size ventricles and extra-axial spaces for the patient''s age. Normal white matter tracts of the cerebral hemispheres. Normal basal ganglia and thalami. Normal brainstem. Normal cerebellum. There is no intracranial hemorrhage. There are no findings of an acute ischemic infarction. Normal visualized paranasal sinuses. CT/Brain/Head without Contrast IMPRESSION: Normal unenhanced CT scan of the brain. Electronically Signed: Pedro Luis Merrill MD at 10:21 EST ,
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
[2023-08-03 09:36] LABS: Absolute Lymphocyte Count 2.32 X10^3/uL (0.83-4.51); Absolute Neutrophil Count 7.2 X10^3/uL (2.0-7.7); Basophil# 0.04 X10^3/uL; Basophil% 0.4 % (0-1); Eosinophil# 0.01 X10^3/uL; Eosinophils% 0.1 % (0-5); Hematocrit 37.7 % (37-47); Hemoglobin 12.8 g/dL (12.0-15.0); Lymphocyte # 2.32 X10^3/ul (0.83-4.51); Lymphocyte % 22.3 % (19-41); Mean Corpuscular Hgb 28.6 pg (27.0-32.0); Mean Corpuscular Volume 84.2 fL (81-99); Monocyte# 0.81 X10^3/uL; Monocyte% 7.8 % (0-10); NRBC Flagged by Analyzer 0 % (0-5); Neutrophil # 7.15 X10^3/uL (2.7-7.7); Neutrophil % 68.8 % (47-70); Platelet Count 209 K/mm3 (150-450); RBC Distribution Width CV 13.4 % (11.6-14.6); RBC Distribution Width SD 41.5 fl (35.1-43.9); Red Blood Count 4.48 M/mm3 (4.2-5.4); White Blood Count 10.4 K/mm3 (4.4-11.0)
[2023-08-03 10:02] LABS: AST(SGOT) 24 U/L (15-37); Alanine Aminotransfer ALT/SGPT 44 U/L (13-56); Albumin, Serum 4.2 g/dL (3.2-5.0); Alkaline Phosphatase 65 U/L (45-117); Anion Gap 9 (5-15); BUN 31 mg/dL (7-18); BUN/Creat Ratio 10.2 RATIO (10-20); Calcium,Total 9.8 mg/dL (8.5-10.1); Chloride 112 mmol/L (98-107); Creatinine, Serum 3.03 mg/dL (0.55-1.02); EST Glomerular Filtration Rate 19 mL/min (>60); Est Glom Filt Rate - Afr Amer 23 mL/min (>60); Estimated Creatinine Clearance 24.11 ml/min; Globulin 4.2 g/dL (2.2-4.2); Glucose 103 mg/dL (74-106); Protein, Total 8.4 g/dL (6.4-8.2); Sodium Level 141 mmol/L (136-145)
[2023-08-03 10:04] LABS: Alcohol, Blood (Medical)-Serum < 3.0 mg/dL; Internal QC Validated? YES +Cl - CLEAR BKGD; Pregnancy, Serum, hCG Quali. NEGATIVE Negative
[2023-08-03 11:55] LABS: Amphetamine Urine VISTA NEGATIVE (<1000 ng/mL); Barbiturate Urine VISTA NEGATIVE (< 200 ng/mL); Benzodiazepine Urine VISTA NEGATIVE (< 200 ng/mL); Cocaine Urine VISTA NEGATIVE (< 300 ng/mL); Ecstacy Urine VISTA NEGATIVE (< 500 ng/mL); Methadone Urine VISTA NEGATIVE (< 300 ng/mL); PCP Urine VISTA NEGATIVE (< 25 ng/mL); THC Urine VISTA POSITIVE (< 50 ng/mL); Vista UDS pH Range 7
[2023-08-03 12:13] VITALS: BP 161/111; PULSE 94; RESP 20; O2SAT 99
--- NOTE | 2023-08-03 12:17 | ED.RN ---
CHART FAXED, CRISIS CALLED
[2023-08-03] MEDS: Losartan Potassium 25 MG Tablet PO (12:38)
[2023-08-03] MEDS: ARIPiprazole 10 MG Tablet PO (12:38)
[2023-08-03] MEDS: Sertraline 50 MG Tablet 25 MG PO (12:38)
[2023-08-03] MEDS: Levothyroxine 150 MCG Tablet PO (12:38)
[2023-08-03] MEDS: Potassium Chloride Oral Tablet 20 MEQ 40 MEQ PO (12:39)
[2023-08-03 14:00] VITALS: RESP 14
[2023-08-03] MEDS: Acetaminophen 325 MG Tablet 650 MG PO (14:26)
[2023-08-03 16:00] VITALS: RESP 14
--- NOTE | 2023-08-03 16:42 | ED.RN ---
per Loreta at the counseling center, referrals sent to [facility], [place].
[2023-08-03 18:00] VITALS: BP 146/94; PULSE 92; RESP 18; O2SAT 97
--- NOTE | 2023-08-03 18:32 | ED.RN ---
[facility] WAS CALLED AT 1806 AND GAVE ETA OF 0800. I REQUESTED [facility]. THEY CALLED BACK AT 1820 SAYING THAT THE REQUESTED OUTSOU[facility], NO ONE WAS AVAILABLE. THEY TRIED ADAM, SUSANNAH SARKAR, JENNIFER HEALY, AND CELESTINA ARNOLD. ALL WERE UNAVAILABLE DO TO FULLY BOOKED.
[2023-08-03] MEDS: Lorazepam 2 MG/ML WCH Syringe 1 MG IM (18:36)
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
== END 2023-08-03 20:33 ==
PROVIDERS: Emergency Provider Emergency Medicine; PCP Internal Medicine; Visit Provider Emergency Medicine
DX: F23 Brief psychotic disorder (principal); F31.9 Bipolar disorder, unspecified; N18.30 Chronic kidney disease, stage 3 unspecified; E03.9 Hypothyroidism, unspecified; Z91.148 Patient's other noncompliance with medication regimen for other reason; I12.9 Hypertensive chronic kidney disease with stage 1 through stage 4 chronic kidney disease, or unspecified chronic kidney disease; Z79.899 Other long term (current) drug therapy; E05.90 Thyrotoxicosis, unspecified without thyrotoxic crisis or storm; F17.210 Nicotine dependence, cigarettes, uncomplicated; E87.6 Hypokalemia
CPT/HCPCS: 70450; 80053; 80307; 80320; 84443; 84703; 85025; 87426; 93005; 99283; G0480

== ENCOUNTER 2023-09-09 13:17 | Emergency (ER) | payer MEDICAID, SELFPAY ==
[2023-09-09 13:19] VITALS: BP 112/69; PULSE 84; RESP 14; TEMP 36.6; O2SAT 100
--- NOTE | 2023-09-09 13:38 | CT_ITS ---
STUDY: CT ABDOMEN AND PELVIS WITHOUT CONTRAST REASON FOR EXAM: Female, 32 years old. BORN WITH ONLY ONE KIDNEY, RT FLANK PAIN, INCONTINENT WITH STOOL AND URINE, abdominal pain RADIATION DOSAGE (If Supplied By Facility): CTDIvol = ( 6.07 ) mGy, DLP = ( 309.29 ) mGycm TECHNIQUE: Transaxial images were obtained from the dome of the diaphragm to the symphysis pubis without oral contrast, and without intravenous contrast. Sagittal and coronal images were reconstructed. Individualized dose optimization techniques were used for this CT. COMPARISON: CT of abdomen and pelvis dated November 10, 2020 FINDINGS: The visualized lung bases are unremarkable. The visualized portions of the heart are within normal limits. Normal liver. The gallbladder is contracted. Normal spleen. Normal pancreas. Normal bilateral adrenal glands. The right kidney is absent. Multicystic lobular left kidney redemonstrated. No hydronephrosis or radiopaque stones are present. Normal visualized stomach. Normal small intestine. Normal colon. There is non-visualization of the appendix. No visualized bowel dilatation or obstruction. No free air or abscess is present. A moderate amount of stool is present throughout the colon. Normal abdominal aorta. Normal inferior vena cava. Normal retroperitoneum. Normal urinary bladder. Normal visualized uterus. Normal abdominal wall. There are diffuse degenerative changes of the visualized lumbar spine. CT/Abdomen/Pelvis without Cont IMPRESSION: 1. No acute process of the abdomen and pelvis. 2. No visualized bowel dilatation or obstruction. No free air or abscess is present. A moderate amount of stool is present throughout the colon. Electronically Signed: Tin Lawson MD at 14:52 EDT ,
[2023-09-09] MEDS: Ondansetron 4 MG/2 ML Vial IV (13:51)
[2023-09-09] MEDS: 0.9% Normal Saline (1000mL) 1,000 ML 1000 ML IV (13:51)
--- OUTSIDE RECORDS SUMMARY | 2023-09-09 14:06 | XMS RPT_ITS | CCD ---
Author Name Unknown Address [address] [place] [address] Organization [facility] Care Team Providers Care Unit Secretary Name Role Phone NELLIE WOODS Unavailable Unavailable JOE EMERY Unavailable Unavailable NELLIE WOODS Unavailable Unavailable NELLIE WOODS Unavailable Unavailable JUANY CASTRO Unavailable Unavailable NELLIE WOODS Unavailable Unavailable NELLIE WOODS Unavailable Unavailable BRENNEN MARADIAGA Unavailable Unavailable Veronika Ferrer Primary Care Provider Veronika Ferrer Primary Care Provider PROVIDER, UNKNOWN Attending Unavailable PROVIDER, UNKNOWN Admitting Unavailable Veronika Ferrer MD Primary Care Provider [phone] Solomon Hi DO Primary Care Provider Solomon Hi DO Primary Care Provider Solomon Hi Unavailable Unavailable Unavailable Dr. Solomon Hi Primary Care Unava ilable STANLEY Nuñez Attending Unavailable STANLEY Nuñez Referring Unavailable Solomon Hi DO Primary Care Provider HE PERALTA Attending Unavailable SOLOMON HI Primary Care Unavailab SOLOMON Castillo Primary Care Unavailab KIM Richardson Attending Unavailable SOLOMON HI Primary Care Unavailab TALIB Berry JR Attending Unavaila joni GAELVERONIKA Primary Care Unavailable SOLOMON HI Primary Care Unavailab TALIB Berry JR Referring Unavaila Solomon Bacon DO Primary Care Provider Solomon Hi DO Primary Care Provider [phone] SOLOMON HI Attending Unavailable SOLOMON HI Referring Unavailable SOLOMON HI Primary Care Unavailable SOLOMON HI Attending Unavailable JOPPSOLOMON URIARTE Referring Unavailable SOLOMON HI Primary Care Unavailable SOLOMON HI Attending Unavailable SOLOMON HI Primary Care Unavailable SOLOMON HI Attending Unavailable SOLOMON HI Primary Care Unavailable SOLOMON HI Attending Unavailable SOLOMON HI Primary Care Unavailable REGULO KIM Attending Unavailable SOLOMON HI Primary Care Unavailable SOLOMON HI Attending Unavailable SOLOMON HI Primary Care Unavailable SOLOMON HI Attending Unavailable SOLOMON HI Primary Care Unavailable SOLOMON HI LIZ Primary Care Unavailab ANETA Mckenna Referring Unavailable SOLOMON HI Primary Care Unavailab BETHANY Lee Referring Unavailable SOLOMON HI Primary Care Unavailab NAETA Mckenna Attending Unavailable SOLOMON HI Primary Care Unavailab ANETA Mckenna Attending Unavailable SOLOMON HI Primary Care Unavailab le SOLOMON HI LIZ Primary Care Unavailab ANETA Mckenna Referring Unavailable JOSOLOMON VERGARA Primary Care Unavailab ANETA Mckenna Referring Unavailable SOLOMON HI Primary Care Unavailab MAYURI Griffin Attending Unavailable ANETA CASTILLO Referring Unavailable ASPEN KIRKPATRICK Attending Unavailable SOLOMON HI Primary Care Unavailab ANETA Mckenna Referring Unavailable SOLOMON HI Primary Care Unavailab MABEL Ferguson Attending Unavailable SOLOMON HI Primary Care Unavailab BETHANY Lee Attending Unavailable SOLOMON HI LIZ Primary Care Unavailab PORTER Dowling Attending Unavailable SOLOMON HI Primary Care Unavailab ANETA Mckenna Referring Unavailable SOLOMON HI Primary Care Unavailab MABEL Ferguson Referring Unavailable MABEL OSHEA Attending Unavailable SOLOMON HI Primary Care Unavailab BETHANY Lee Referring Unavailable SOLOMON HI Primary Care Unavailab BETHANY Lee Referring Unavailable PAWAN GILIE Attending Unavailable Allergies Allergy Classification Reported Allergen(s) Allergy Type Date of Onset Reaction(s) Facility (20 sources) atorvastatin Drug Allergy 6 [place], [place] (20 sources) cefTRIAXone; Translations: [CEFTRIAXONE] Drug Allergy 6 Rash, Hives, Unknown [place], [place] (20 sources) Droperidol; Translations: [DROPERIDOL] Drug Allergy 3 Anxiety, Anaphylaxis [place] (20 sources) Meperidine Drug Allergy 6 [place] (20 sources) Fentanyl And Related Propensity to adverse reactions to drug 6 Other (See Comments) [place] (2 sources) Other Propensity to adverse reactions 6 Shortness Of Breath [place] (20 sources) Cat; Translations: [CATS] Allergy to substance 1 Shortness of Breath [facility] (20 sources) Laxative Pill; Translations: [LAXATIVE PILL] Drug Allergy 0 GI Upset [facility] (20 sources) Bisacodyl Drug Allergy 0 Unknown [facility] (20 sources) Droperidol Allergy to substance 3 Anaphylaxis, Anxiety [facility] (12 sources) Cat Hair Extract Allergy to substance 1 Shortness of breath [facility] (20 sources) Sennosides Drug Intolerance 0 [facility] (10 sources) Cat Hair Extract Drug Allergy 1 Shortness of breath [facility] Medications Current Medications Medication Drug Class(es) Dates Sig (Normalized) Sig (Original) acetaminophen 325 mg oral tablet (2 sources) take 2 tablets by mouth every six hours as needed for pain acetaminophen (TYLENOL) 325 MG tablet Take 650 mg by mouth every 6 hours as needed for Pain 0 Active amitriptyline hydrochloride 10 mg oral tablet (20 sources) Tricyclic Antidepressant Start: 05-31-2023 End: 05-30-2024 take 1 tablet by mouth once daily amitriptyline (Elavil) 10 MG tablet Take 1 tablet (10 mg) by mouth Nightly. 30 tablet 3 05/31/2023 05/30/2024 Active Completed/Discontinued Medications Medication Drug Class(es) Dates Sig (Normalized) Sig (Original) Albuterol (11 sources) beta2-Adrenergic Agonist End: 04-20-2023 take 2 puff(s) by inhalation every six hours as needed ALBUTEROL SULFATE HFA INHALATION Inhale 2 Puffs as instructed every 6 hours as needed. uses PRN for asthma. Pt. unsure of dose 0 04/20/2023 Discontinued (Course of therapy completed) Problems Active Problems Problem Classification Problem Date Documented Da te Episodic/Chronic Anxiety disorders (20 sources) Posttraumatic stress disorder; Translations: [Post-traumatic stress disorder, unspecified] Onset: 03-04-2022 04-07-2022 Chronic Asthma (19 sources) Uncomplicated moderate persistent asthma; Translations: [Moderate persistent asthma, uncomplicated] Onset: 11-21-2022 Chronic Attention-deficit, conduct, and disruptive behavior disorders (20 sources) Attention deficit hyperactivity disorder; Translations: [Attention-deficit hyperactivity disorder, unspecified type] Onset: 03-04-2022 04-07-2022 Chronic Biliary tract disease (2 sources) Acute cholecystitis; Translations: [Acute cholecystitis] 07-20-2015 Episodic Chronic kidney disease (20 sources) Chronic kidney disease; Translations: [Chronic renal failure] Onset: 04-30-2016 04-30-2016 Chronic Chronic kidney disease (4 sources) Chronic kidney disease; Translations: [Chronic kidney disease, stage 3b (HCC)] Onset: 04-07-2022 Deficiency and other anemia (1 source) Anemia, unspecified; Translations: [Anemia, unspecified] Onset: 11-14-2017 Episodic Early or threatened labor (2 sources) Threatened premature labor - not delivered ; Translations: [Threatened labor] 12-10-2015 Episodic Fluid and electrolyte disorders (1 source) Dehydration; Translations: [Dehydration] Onset: 11-05-2017 Episodic Gastrointestinal hemorrhage (1 source) Blood-tinged feces; Translations: [Hematochezia] 01-15-2020 Genitourinary congenital anomalies (20 sources) Renal agenesis; Translations: [Renal agenesis, unilateral] Onset: 2011 07-31-2018 Chronic Headache; including migraine (20 sources) Migraine; Translations: [Migraine, unspecified, not intractable, without status migrainosus] Onset: 03-04-2022 04-07-2022 Chronic Headache; including migraine (2 sources) Acute headache; Translations: [Headache] Episodic Hemorrhoids (1 source) Internal hemorrhoids grade I; Translations: [First degree hemorrhoids] 01-15-2020 Hepatitis (20 sources) Chronic hepatitis C; Translations: [Chronic viral hepatitis C] Onset: 07-31-2018 07-31-2018 Chronic Hodgkin`s disease (20 sources) Hodgkin's disease (clinical); Translations: [Hodgkin lymphoma, unspecified, unspecified site] Onset: 10-22-2010 07-16-2015 Chronic Malignant neoplasm without specification of site (2 sources) Malignant neoplastic disease; Translations: [Cancer] 04-30-2016 Chronic Mood disorders (20 sources) Depressive disorder; Translations: [Depression] Onset: 10-12-2011 02-19-2014 Chronic Nutritional deficiencies (20 sources) Vitamin D deficiency; Translations: [Vitamin D deficiency, unspecified] Onset: 03-04-2022 04-07-2022 Chronic Other and unspecified benign neoplasm (1 source) Benign neoplasm of transverse colon; Translations: [Benign neoplasm of transverse colon] 01-15-2020 Episodic Other circulatory disease (1 source) Other specified symptoms and signs involving the circulatory and respiratory systems; Translations: [Throat tightness] Onset: 06-14-2023 Episodic Other complications of (2 sources) Short cervical length in ; Translations: [Cervical shortening, antepartum condition or complication] 12-10-2015 Episodic Other diseases of kidney and ureters (2 sources) Vesicoureteric reflux; Translations: [Vesicoureteral reflux with resulting kidney disease] 12-10-2015 Episodic Other ear and sense organ disorders (20 sources) Decreased hearing ; Translations: [Unspecified hearing loss, unspecified ear] 06-21-2021 Chronic Other ear and sense organ disorders (20 sources) Deafness of left ear; Translations: [Unspecified hearing loss, left ear] Onset: 03-04-2022 04-07-2022 Chronic Other gastrointestinal disorders (1 source) Digestive symptom; Translations: [Other specified symptoms and signs involving the digestive system and abdomen] 01-15-2020 Episodic Other lower respiratory disease (3 sources) Interstitial lung disease; Translations: [Interstitial pulmonary disease, unspecified] 04-19-2023 Chronic Other lower respiratory disease (1 source) Interstitial pulmonary disease, unspecified; Translations: [Interstitial pulmonary disease (HCC)] Onset: 04-20-2023 Chronic Other nervous system disorders (20 sources) Idiopathic peripheral neuropathy; Translations: [Hereditary and idiopathic neuropathy, unspecified] Onset: 07-16-2015 07-16-2015 Chronic Other nervous system disorders (2 sources) Hereditary and idiopathic neuropathy, unspecified; Translations: [Hereditary and idiopathic neuropathy, unspecified] Onset: 04-07-2022 Chronic Other skin disorders (3 sources) Eruption; Translations: [Rash and other nonspecific skin eruption] Episodic Polyhydramnios and other problems of amniotic cavity (2 sources) Polyhydramnios; Translations: [Polyhydramnios] 12-10-2015 Episodic Residual codes; unclassified (1 source) Obstructive sleep apnea syndrome; Translations: [Obstructive sleep apnea (adult) (pediatric)] 04-05-2023 Chronic Residual codes; unclassified (1 source) Obstructive sleep apnea (adult) (pediatric); Translations: [Obstructive sleep apnea] Onset: 05-02-2023 Chronic Residual codes; unclassified (2 sources) Gestation period, 33 weeks; Translations: [33 weeks gestation of ] 12-10-2015 Episodic Skin and subcutaneous tissue infections (1 source) Cutaneous abscess of left axilla; Translations: [Cutaneous abscess of left axilla] Onset: 12-23-2017 Episodic Substance-related disorders (20 sources) Drug dependence during - baby not yet delivered; Translations: [Drug abuse, continuous] Onset: 02-19-2014 Resolved: 09-01-2022 12-10-2015 Chronic Thyroid disorders (20 sources) Hypothyroidism; Translations: [Other specified hypothyroidism] Onset: 07-31-2018 07-31-2018 Chronic Thyroid disorders (3 sources) Disorder of thyroid, unspecified; Translations: [Disorder of thyroid gland] Onset: 04-30-2016 04-30-2016 Episodic Unclassified (1 source) Other specified personal risk factors, not elsewhere classified; Translations: [Other specified personal risk factors, not elsewhere classified] Onset: 11-14-2017 Episodic Unclassified (2 sources) Patient encounter status; Translations: [Encounter for anatomic survey] 12-10-2015 Unclassified (1 source) Acute left-sided low back pain without sciatica; Translations: [Acute left-sided low back pain without sciatica] Onset: 03-22-2022 Viral infection (2 sources) Herpesviral vulvovaginitis; Translations: [Herpesviral vulvovaginitis] Onset: 09-01-2022 Chronic Viral infection (1 source) Recurrent herpes simplex; Translations: [Herpesviral infection, unspecified] 04-03-2023 Episodic Past or Other Problems Problem Classification Problem Date Documented Da te Episodic/Chronic Abdominal pain (20 sources) Flank pain; Translations: [Acute abdominal pain] Onset: 5 Resolved: 3 03-06-2015 Episodic Acute and unspecified renal failure (20 sources) Acute renal failure syndrome; Translations: [Acute injury of kidney] Onset: 4 Resolved: 3 02-24-2016 Episodic Administrative/social admission (20 sources) Social problem; Translations: [Problem related to unspecified psychosocial circumstances] Onset: 9 07-31-2018 Episodic Conditions associated with dizziness or vertigo (20 sources) Dizziness; Translations: [Dizziness and giddiness] Onset: 2 12-21-2021 Episodic Contraceptive and procreative management (3 sources) Patient encounter status; Translations: [Encounter for surveillance of implantable subdermal contraceptive] Onset: 3 04-03-2023 Episodic Deficiency and other anemia (20 sources) Iron deficiency anemia; Translations: [Iron deficiency anemia, unspecified] Onset: 9 07-31-2018 Episodic Digestive congenital anomalies (20 sources) H/O: gastrointestinal disease; Translations: [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] Onset: 9 07-31-2018 Episodic Fever of unknown origin (1 source) Fever Onset: 2 Episodic Gastrointestinal hemorrhage (20 sources) Blood-tinged feces; Translations: [Melena] Onset: 0 Resolved: 3 09-01-2022 Episodic Hemorrhoids (20 sources) Internal hemorrhoids grade I; Translations: [First degree hemorrhoids] Onset: 0 04-07-2022 Episodic Hodgkin`s disease (8 sources) History of Hodgkin lymphoma; Translations: [Personal history of hodgkin's disease] Onset: 3 Episodic Immunizations and screening for infectious disease (4 sources) Encounter for screening for other viral diseases; Translations: [Encounter for screening for human immunodeficiency virus [HIV]] Onset: 8 Episodic Nausea and vomiting (20 sources) Nausea; Translations: [Vomiting] Onset: 8 Resolved: 3 01-15-2020 Episodic Nonspecific chest pain (1 source) Chest pain, unspecified; Translations: [Chest pain, unspecified type] Onset: 3 Episodic Other and unspecified benign neoplasm (20 sources) History of adenomatous polyp of colon; Translations: [Personal history of colonic polyps] Onset: 0 04-07-2022 Episodic Other circulatory disease (20 sources) Elevated blood pressure; Translations: [Elevated blood-pressure reading, without diagnosis of hypertension] Onset: 6 01-21-2017 Episodic Other circulatory disease (17 sources) Orthostatic hypotension; Translations: [Orthostatic hypotension] Onset: 3 Episodic Other circulatory disease (1 source) Orthostatic hypotension; Translations: [Orthostatic hypotension] Onset: 3 Episodic Other complications of (20 sources) Urinary tract infection in ; Translations: [Unspecified infection of urinary tract in , unspecified trimester] Onset: 9 07-31-2018 Episodic Other complications of (20 sources) High risk ; Translations: [Supervision of high risk , unspecified, unspecified trimester] Onset: 9 07-31-2018 Episodic Other diseases of kidney and ureters (20 sources) Hydronephrosis; Translations: [Unspecified hydronephrosis] Onset: 2 Episodic Other diseases of kidney and ureters (1 source) Unspecified hydronephrosis; Translations: [Hydronephrosis, unspecified hydronephrosis type] Onset: 2 Episodic Other female genital disorders (20 sources) H/O: premature delivery; Translations: [Personal history of pre-term labor] Onset: 9 07-31-2018 Episodic Other gastrointestinal disorders (20 sources) Constipation; Translations: [Other constipation] Onset: 0 01-15-2020 Episodic Other gastrointestinal disorders (2 sources) Alteration in bowel elimination; Translations: [Change in bowel habit] Onset: 0 Resolved: 3 01-15-2020 Episodic Other gastrointestinal disorders (20 sources) Altered bowel function; Translations: [Change in bowel habit] Onset: 0 Resolved: 3 09-01-2022 Episodic Other infections; including parasitic (20 sources) Infection by Trichomonas; Translations: [Trichomoniasis, unspecified] Onset: 9 07-31-2018 Episodic Other lower respiratory disease (19 sources) Dyspnea; Translations: [Shortness of breath] Onset: 3 Episodic Other lower respiratory disease (1 source) Dyspnea, unspecified; Translations: [Dyspnea, unspecified type] Onset: 3 Episodic Other lower respiratory disease (1 source) Shortness of breath; Translations: [Shortness of breath] Onset: 3 Episodic Other nervous system disorders (20 sources) Numbness; Translations: [Anesthesia of skin] Onset: 5 Episodic Other nutritional; endocrine; and metabolic disorders (20 sources) Abnormal weight loss; Translations: [Abnormal weight loss] Onset: 0 Resolved: 3 01-15-2020 Episodic Other screening for suspected conditions (not mental disorders or infectious disease) (2 sources) Encounter for screening for malignant neoplasm of cervix; Translations: [Encounter for screening for malignant neoplasm of cervix] Onset: 3 Episodic Other skin disorders (2 sources) Rash and other nonspecific skin eruption; Translations: [Rash and other nonspecific skin eruption] Onset: 3 Episodic Screening and history of mental health and substance abuse codes (8 sources) Tobacco smoking behavior - finding; Translations: [Personal history of nicotine dependence] Onset: 2 03-03-2023 Episodic Spondylosis; intervertebral disc disorders; other back problems (20 sources) Backache; Translations: [Dorsalgia, unspecified] Onset: 1 04-19-2011 Episodic Substance-related disorders (20 sources) Complication occurring during ; Translations: [Drug use complicating , unspecified trimester] Onset: 6 Resolved: 3 07-31-2018 Episodic Urinary tract infections (20 sources) Urinary tract infection, site not specified; Translations: [Acute cystitis without hematuria] Onset: 5 03-06-2015 Episodic Results Test Name Value Interpretation Reference Range Facil ity Vital Signs Date Time Vital Sign Value Performing Clinician Facility 06-08-2023 08:54-0500 Body weight 63.05 kg Mayuri Mensah PA-C Work Phone: [facility] 06-08-2023 08:54-0500 Diastolic blood pressure 88 mm[Hg] Mayuri Hornone PA-C Work Phone: [facility] 06-08-2023 08:54-0500 Heart rate 96 /min Mayuri Makenna PA-C Work Phone: [facility] 06-08-2023 08:54-0500 Respiratory rate 14 /min Mayuri Makenna PA-C Work Phone: [facility] 06-08-2023 08:54-0500 SaO2% (BldA) [Mass fraction] 97 % Mayuri Hornone PA-C Work Phone: [facility] 06-08-2023 08:54-0500 Systolic blood pressure 120 mm[Hg] Mayuri Mensah PA-C Work Phone: [facility] 04-19-2023 08:48-0400 Body height 175.3 cm Aneta Castillo MD Work Phone: [facility] 04-19-2023 08:48-0400 Body weight 64.59 kg Aneta Castillo MD Work Phone: [facility] 04-19-2023 08:48-0400 Diastolic blood pressure 90 mm[Hg] Aneta Castillo MD Work Phone: [facility] 04-19-2023 08:48-0400 Heart rate 86 /min Aneta Castillo MD Work Phone: [facility] 04-19-2023 08:48-0400 Respiratory rate 16 /min Aneta Castillo MD Work Phone: [facility] 04-19-2023 08:48-0400 SaO2% (BldA) [Mass fraction] 93 % Aneta Castillo MD Work Phone: [facility] 04-19-2023 08:48-0400 Systolic blood pressure 110 mm[Hg] Aneta Castillo MD Work Phone: [facility] 04-05-2023 07:28-0400 Body weight 63.78 kg Bethany Queener PA-C Work Phone: [facility] 04-05-2023 07:28-0400 Diastolic blood pressure 77 mm[Hg] Bethany Queener PA-C Work Phone: [facility] 04-05-2023 07:28-0400 Heart rate 77 /min Bethany Queener PA-C Work Phone: [facility] 04-05-2023 07:28-0400 Respiratory rate 16 /min Bethany Queener PA-C Work Phone: [facility] 04-05-2023 07:28-0400 SaO2% (BldA) [Mass fraction] 97 % Bethany Queener PA-C Work Phone: [facility] 04-05-2023 07:28-0400 Systolic blood pressure 118 mm[Hg] Bethany Queener PA-C Work Phone: [facility] 04-03-2023 09:50-0400 Body weight 63.96 kg Mabel Oshea APRN.CNM Work Phone: [facility] 04-03-2023 09:50-0400 Diastolic blood pressure 62 mm[Hg] Mabel Oshea APRN.CNM Work Phone: [facility] 04-03-2023 09:50-0400 Systolic blood pressure 92 mm[Hg] Mabel Oshea APRN.CNM Work Phone: [facility] 03-03-2023 11:32-0400 Body height 175.3 cm Solomon Hi DO Work Phone: [facility] [place] [employer] 03-03-2023 11:32-0400 Body mass index (BMI) [Ratio] 21.12 kg/m2 Solomon Hi DO Work Phone: [facility] [place] [employer] 03-03-2023 11:32-0400 Body temperature 97.7 [degF] Solomon Hi DO Work Phone: [facility] [place] [employer] 03-03-2023 11:32-0400 Body weight 64.86 kg Solomon Hi DO Work Phone: [facility] [place] [employer] 03-03-2023 11:32-0400 Diastolic blood pressure 72 mm[Hg] Solomon Hi DO Work Phone: [facility] [place] [employer] 03-03-2023 11:32-0400 Heart rate 69 /min Solomon Hi DO Work Phone: [facility] [place] [employer] 03-03-2023 11:32-0400 Systolic blood pressure 111 mm[Hg] Solomon Hi DO Work Phone: [facility] [place] [employer] 03-01-2023 15:44-0400 Body height 175.3 cm Solomon Hi DO Work Phone: [facility] [place] [employer] 03-01-2023 15:44-0400 Body mass index (BMI) [Ratio] 21.56 kg/m2 Solomon Hi DO Work Phone: [facility] [place] [employer] 03-01-2023 15:44-0400 Body weight 66.22 kg Solomon Hi DO Work Phone: [facility] [place] [employer] 10-25-2022 16:03-0400 Diastolic blood pressure 69 mm[Hg] Solomon Hi DO Work Phone: [facility] [place] [employer] 10-25-2022 16:03-0400 Heart rate 96 /min Solomon Hi DO Work Phone: [facility] [place] [employer] 10-25-2022 16:03-0400 Systolic blood pressure 96 mm[Hg] Solomon Hi DO Work Phone: [facility] [place] [employer] 10-25-2022 15:36-0400 Body height 175.3 cm Solomon Hi DO Work Phone: [facility] [place] [employer] 10-25-2022 15:36-0400 Body mass index (BMI) [Ratio] 21.56 kg/m2 Solomon Hi DO Work Phone: [facility] [place] [employer] 10-25-2022 15:36-0400 Body temperature 98.01 [degF] Solomon Hi DO Work Phone: [facility] [place] [employer] 10-25-2022 15:36-0400 Body weight 66.22 kg Solomon Hi DO Work Phone: [facility] [place] [employer] 10-13-2022 11:50-0400 Body height 175.3 cm Regulo Sir Jairo REHABILITATION ENGINEER - ELECTRICAL DISCHARGE MACHINE OPERATOR Work Phone: [facility] [place] [employer] 10-13-2022 11:50-0400 Body mass index (BMI) [Ratio] 20.82 kg/m2 Regulo Sir Jairo REHABILITATION ENGINEER - ELECTRICAL DISCHARGE MACHINE OPERATOR Work Phone: [facility] [place] [employer] 10-13-2022 11:50-0400 Body temperature 97.5 [degF] Regulo Jairo REHABILITATION ENGINEER - ELECTRICAL DISCHARGE MACHINE OPERATOR Work Phone: [facility] [place] [employer] 10-13-2022 11:50-0400 Body weight 63.96 kg Regulo Jairo REHABILITATION ENGINEER - ELECTRICAL DISCHARGE MACHINE OPERATOR Work Phone: [facility] [place] [employer] 10-13-2022 11:50-0400 Diastolic blood pressure 96 mm[Hg] Regulo Jairo REHABILITATION ENGINEER - ELECTRICAL DISCHARGE MACHINE OPERATOR Work Phone: [facility] [place] [employer] 10-13-2022 11:50-0400 Heart rate 85 /min Regulo Jairo REHABILITATION ENGINEER - ELECTRICAL DISCHARGE MACHINE OPERATOR Work Phone: [facility] [place] [employer] 10-13-2022 11:50-0400 SaO2% (BldA) [Mass fraction] 96 % Regulo Gill REHABILITATION ENGINEER - ELECTRICAL DISCHARGE MACHINE OPERATOR Work Phone: [facility] [place] [employer] 10-13-2022 11:50-0400 Systolic blood pressure 131 mm[Hg] Regulo Gill REHABILITATION ENGINEER - ELECTRICAL DISCHARGE MACHINE OPERATOR Work Phone: [facility] [place] [employer] 10-11-2022 15:57-0400 Body height 175.3 cm Solomon Hi DO Work Phone: [facility] [place] [employer] 10-11-2022 15:57-0400 Body mass index (BMI) [Ratio] 21.77 kg/m2 Solomon Hi DO Work Phone: [facility] [place] [employer] 10-11-2022 15:57-0400 Body temperature 98.01 [degF] Solomon Hi DO Work Phone: [facility] [place] [employer] 10-11-2022 15:57-0400 Body weight 66.86 kg Solomon Hi DO Work Phone: [facility] [place] [employer] 10-11-2022 15:57-0400 Diastolic blood pressure 90 mm[Hg] Solomon Hi DO Work Phone: [facility] [place] [employer] 10-11-2022 15:57-0400 Heart rate 65 /min Solomon Hi DO Work Phone: [facility] [place] [employer] 10-11-2022 15:57-0400 Systolic blood pressure 130 mm[Hg] Solomon Hi DO Work Phone: [facility] [place] [employer] 06-22-2022 15:27-0500 Body temperature 98 [degF] Solomon Hi Work Phone: [facility] Work Phone: 06-22-2022 15:27-0500 Body weight 64.41 kg Solomon Hi Work Phone: [facility] Work Phone: 06-22-2022 15:27-0500 Diastolic blood pressure 68 mm[Hg] Solomon Hi Work Phone: [facility] Work Phone: 06-22-2022 15:27-0500 Heart rate 106 /min Solomon Hi Work Phone: [facility] Work Phone: 06-22-2022 15:27-0500 SaO2% (BldA) [Mass fraction] 97 % Solomon Robertsoneri Work Phone: [facility] Work Phone: 06-22-2022 15:27-0500 Systolic blood pressure 102 mm[Hg] Solomon Hi Work Phone: [facility] Work Phone: 03-16-2022 14:55-0400 Body height 175.3 cm Talib Sharpe Jr., MD Work Phone: [facility] 03-16-2022 14:55-0400 Body weight 64.41 kg Talib Sharpe Jr., MD Work Phone: [facility] 03-16-2022 14:55-0400 Respiratory rate 16 /min Talib Sharpe Jr., MD Work Phone: [facility] 01-15-2020 15:41-0400 BP Diastolic 83 mm[Hg] Akin Holman [facility] [place] 01-15-2020 15:41-0400 BP Systolic 110 mm[Hg] Akin Holman [facility] [place] 01-15-2020 15:41-0400 Pulse (Heart Rate) 59 /min Akin Holman [facility] 01-15-2020 15:41-0400 Pulse Oximetry 100 % Akin Holman [facility] [place] 01-15-2020 15:41-0400 Respiratory Rate 16 /min Akin [facility], [place] 01-15-2020 13:23-0400 BMI (Body Mass Index) 18.16 kg/m2 Akin [facility], [place] 01-15-2020 13:23-0400 Body Temperature 97.7 [degF] Akin Arrington [facility], [place] 01-15-2020 13:23-0400 Body weight 55.79 kg Akin Holman [facility] [place] 01-15-2020 13:23-0400 Height 175.3 cm Akin Holman [facility] [place] 12-06-2019 13:00-0400 BP Diastolic 76 mm[Hg] Rodri Francois [facility] , [place] 12-06-2019 13:00-0400 BP Systolic 108 mm[Hg] Rodri [place], [place] 12-06-2019 13:00-0400 Pulse (Heart Rate) 66 /min [place] 12-06-2019 13:00-0400 Respiratory Rate 20 /min Rodri Francois [place] 12-06-2019 12:45-0400 BMI (Body Mass Index) 17.72 kg/m2 [facility] [place] 12-06-2019 12:45-0400 Body weight 54.43 kg [place]ri [place] Encounters Encounter Date Encounter Type Care Provider Facility Start: 08-08-2023 Telephone encounter Bethany paula PA-C Work Phone: Neurology Procedures Date Procedure Procedure Detail Performing Clinician Start: 04-20-2023 Ct thorax w/o contrast material Aneta Castillo MD Work Phone: Start: 04-11-2023 Mri brain brain stem w/o contrast material Bethany Gil PA-C Work Phone: Start: 03-03-2023 Basic metabolic panel calcium total Solomon Hi DO Work Phone: Start: 03-03-2023 End: 03-03-2023 Thyrotropin [Units/volume] in Serum or Plasma Solomon Hi DO Work Phone: Start: 03-01-2023 Echo tthrc r-t 2d w/wom-mode compl spec&colr d Solomon Hi DO Work Phone: Start: 10-21-2022 Thyrotropin [Units/volume] in Serum or Plasma June Hackett RN Start: 10-13-2022 Iaadiadoo streptococcus group a Regulo Sir Jairo 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 TRACHOMATIS, N. GONORHOEAE RNA Solomon Binta DO Work Phone: Start: 03-16-2022 Urnls dip stick/tablet rgnt auto w/o microscopy Talib Sharpe MD Work Phone: Start: 03-04-2022 Thyrotropin [Units/volume] in Serum or Plasma Solomon Martinezaminah DO Work Phone: Start: 01-15-2020 Colonoscopy 3m Scanning Start: 01-15-2020 HM ENDOSCOPY REPORT 3m Scanning Start: 12-06-2019 Kidney img morphology vascular flow 1 w/rx Rodri Francois Work Phone: Start: 07-31-2018 H/O: section History of delivery Talib Sharpe Jr., MD Work Phone: Start: 12-23-2017 Urine test visual color cmprsn meths NELLIE WOODS Start: 12-01-2017 CULTURE BLOOD #1 NELLIE WOODS Start: 12-01-2017 Culture bacterial quanttative colony count urine NELLIE WOODS Start: 12-01-2017 VITAL SIGNS NELLIE WOODS Start: 12-01-2017 Radiologic exam chest 2 views NELLIE WOODS Start: 12-01-2017 POC UR-QUAL NELLIE WOODS Start: 12-01-2017 Microscopic urinalysis NELLIE WOODS Start: 12-01-2017 Urnls dip stick/tablet rgnt auto w/o microscopy NELLIE WOODS Start: 12-01-2017 Blood count complete auto&auto difrntl wbc NELLIE BLAKEROBERT Start: 12-01-2017 Comprehensive metabolic panel NELLIE BLAKEROBERT Start: 2017 POC UR-QUAL NELLIE BLAKEROBERT Start: 2017 Basic metabolic panel calcium total NELLIE BLAKEROBERT Start: 2017 Blood count complete auto&auto difrntl wbc NELLIE BLAKEROBERT Start: 2017 Culture bacterial quanttative colony count urine NELLIE BLAKEROBERT Start: 2017 Microscopic urinalysis NELLIE BLAKEROBERT Start: 2017 Urnls dip stick/tablet rgnt auto w/o microscopy NELLIE BLAKEROBERT Start: 11-14-2017 Assay of thyroid stimulating hormone tsh NELLIE PEGGY Start: 11-14-2017 Blood count complete auto&auto difrntl wbc NELLIE BLAKEROBERT Start: 11-14-2017 Comprehensive metabolic panel NELLIE PEGGY Start: 11-14-2017 Cyanocobalamin vitamin b-12 NELLIE WOODS Start: 11-14-2017 FERRITIN NELLIE BLAKEROBERT Start: 11-14-2017 Hemoglobin glycosylated a1c NELLIE BLAKEROBERT Start: 11-14-2017 HEP C VIRAL LOAD NELLIE BLAKEROBERT Start: 11-14-2017 HEPATITIS C ANTIBODY NELLIE BLAKEROBERT Start: 11-14-2017 HIV SCREEN NELLIE BLAKEROBERT Start: 11-14-2017 IRON AND TIBC NELLIE BLAKEROBERT Start: 11-14-2017 T3 NELLIE BLAKEROBERT Start: 11-14-2017 T4 NELLIE BLAKEROBERT Start: 11-14-2017 VITAMIN D 25 HYDROX, D2 AND D3 NELLIE WOODS Start: 11-05-2017 Ct abdomen & pelvis w/o contrast material NELLIE PEGGY Start: 11-05-2017 POC UR-QUAL NELLIE BLAKEROBERT Start: 11-05-2017 Microscopic urinalysis NELLIE PEGGY Start: 11-05-2017 Urnls dip stick/tablet rgnt auto w/o microscopy NELLIE WOODS Start: 11-05-2017 Assay of lipase NELLIE WOODS Start: 11-05-2017 Blood count complete auto&auto difrntl wbc NELLIE PEGGY Start: 11-05-2017 Comprehensive metabolic panel NELLIE WOODS Start: 11-05-2017 LACTIC ACID, PLASMA NELLIE WOODS Plan of Treatment Date Care Activity Detail Author Start: 2050 RSV Immunization aged 60 or older (1 - 1-dose 60+ series) RSV Immunization aged 60 or older (1 - 1-dose 60+ series) [facility] Start: 09-02-2027 HPV Testing HPV Testing [facility] Start: 09-02-2027 Pap Testing Pap Testing [facility] Start: 09-02-2027 Screening for malignant neoplasm of cervix [facility] Start: 02-28-2026 DTaP/Tdap/Td vaccine (7 - Td) DTaP/Tdap/Td vaccine (7 - Td) [place] Start: 02-28-2026 DTaP/Tdap/Td Vaccines (7 - Td or Tdap) DTaP/Tdap/Td Vaccines (7 - Td or Tdap) [facility] Start: 02-28-2026 Urine microalbumin profile [facility] Start: 09-01-2025 Screening for malignant neoplasm of cervix Pap Smear [facility] Start: 03-03-2024 Thyroid stimulating hormone measurement TSH Level [facility] Start: 10-22-2023 HEMOGLOBIN/HEMATOCRIT HEMOGLOBIN/HEMATOCRIT [facility] Start: 10-22-2023 SERUM CREATININE SERUM CREATININE [facility] Start: 10-22-2023 Thyroid stimulating hormone measurement TSH Level [facility] Start: 10-13-2023 Thyroid stimulating hormone measurement TSH Level [facility] Start: 09-01-2023 End: 09-01-2023 Patient encounter procedure [facility] Start: 06-13-2023 PAP TESTING PAP TESTING [facility] Start: 05-26-2023 HEMOGLOBIN/HEMATOCRIT HEMOGLOBIN/HEMATOCRIT [facility] Start: 05-26-2023 SERUM CREATININE SERUM CREATININE [facility] Start: 04-19-2023 End: 07-19-2023 ALGN [facility] Work Phone: Immunizations Immunization Date Immunization Notes Care Provider Devorah salinas 06-13-2018 influenza nasal, unspecified formulation Bethany Gil PA-C Work Phone: [facility] 06-13-2018 influenza virus vaccine, unspecified formulation Solomon Hi DO Work Phone: [facility] 06-13-2018 influenza, injectabl e, quadrivalent, preservative free Talib Sharpe Jr., MD Work Phone: [facility] 02-29-2016 tetanus toxoid, redu rio diphtheria toxoid, and acellular pertussis vaccine, adsorbed Rodri Francois [facility] 01-14-2009 hepatitis B vaccine, adult dosage Solomon Martinezaminah DO Work Phone: [facility] 01-14-2009 hepatitis B vaccine, pediatric or pediatric/adolescent dosage Talib Sharpe Jr., MD Work Phone: [facility] Work Phone: 01-14-2009 hepatitis B vaccine, unspecified formulation Talib Sharpe Jr., MD Work Phone: [facility] 12-31-2008 human papilloma viru s vaccine, quadrivalent Talib Sharpe Jr., MD Work Phone: [facility] 12-31-2008 Meningococcal, MCV4, unspecified conjugate formulation(groups A, C, Y and W-135) Talib Sharpe Jr., MD Work Phone: [facility] 12-31-2008 tetanus toxoid, redu rio diphtheria toxoid, and acellular pertussis vaccine, adsorbed Talib Sharpe Jr., MD Work Phone: [facility] 12-31-2008 tuberculin skin test ; purified protein derivative solution, intradermal Solomon Binta DO Work Phone: [facility] 12-31-2008 HPV, unspecified formulation Solomon Binta DO Work Phone: [facility] 11-13-1995 diphtheria, tetanus toxoids and pertussis vaccine Talib Sharpe Jr., MD Work Phone: [facility] Work Phone: 11-13-1995 trivalent poliovirus vaccine, live, oral Talib Sharpe Jr., MD Work Phone: [facility] Work Phone: 04-30-1992 diphtheria, tetanus toxoids and pertussis vaccine Talib Sharpe Jr., MD Work Phone: [facility] Work Phone: 04-30-1992 trivalent poliovirus vaccine, live, oral Talib Sharpe Jr., MD Work Phone: [facility] Work Phone: 02-11-1992 measles, mumps and rubella virus vaccine Talib Sharpe Jr., MD Work Phone: [facility] Work Phone: 02-01-1992 diphtheria, tetanus toxoids and pertussis vaccine Talib Sharpe Jr., MD Work Phone: [facility] Work Phone: 02-01-1992 trivalent poliovirus vaccine, live, oral Tlaib Sharpe Jr., MD Work Phone: [facility] Work Phone: 11-13-1991 measles, mumps and rubella virus vaccine Talib Sharpe Jr., MD Work Phone: [facility] Work Phone: 09-04-1991 diphtheria, tetanus toxoids and pertussis vaccine Talib Sharpe Jr., MD Work Phone: [facility] Work Phone: 09-04-1991 trivalent poliovirus vaccine, live, oral Talib Sharpe Jr., MD Work Phone: [facility] Work Phone: 02-19-1991 diphtheria, tetanus toxoids and pertussis vaccine Talib Sharpe Jr., MD Work Phone: [facility] Work Phone: 02-19-1991 trivalent poliovirus vaccine, live, oral Talib Sharpe Jr., MD Work Phone: [facility] Work Phone: Payers Date Payer Category Payer Medicaid [id number] 2018 Medicaid [id number] 2017 Unknown [id number] 2017 Unknown [employer] [place]ICA[place] xxxxxxxxxxx 2017-Present [phone] CLAIMS DEPARTMENT [address] [place] [address] xxxxxxxxxxx [id number] 2017 Unknown [employer] CARES [facility] MEDICAID [id number] 2017-Present [phone] CLAIMS DEPARTMENT [address] [place] [address] [id number] 2014 Medicaid [id number] 1990 Unknown [id number] 1990 Unknown [id number] Unknown [employer] Social History Date Type Detail Facility Start: 12-06-2019 End: 03-16-2022 Tobacco smoking status NHIS Current every day smoker [facility] End: 07-10-2022 History of tobacco use Cigarette Smoker [place], [place] Start: 12-06-2019 End: 03-03-2023 Cigarettes smoked current (pack per day) - Reported [facility] Work Phone: Start: 12-06-2019 End: 04-05-2023 Alcohol intake Current non-drinker of alcohol (finding) [place], [place] Start: 1990 Sex Assigned At Not on file [place] Exposure to SARS-CoV -2 (event) Unable to assess [place] Start: 01-15-2020 End: 03-03-2023 Tobacco use and exposure [facility] [place] Start: 12-30-2019 Alcohol Comment in recovery [place] Start: 03-06-2022 End: 03-01-2023 Exposure to SARS-CoV-2 (event) Not sure [place] Start: 12-22-2021 History SDOH Financial 1 [facility] Start: 12-22-2021 History SDOH Transport Med 2 [facility] Start: 1990 Sex Assigned At Female [facility] Start: 10-25-2022 End: 03-03-2023 Tobacco smoking status NHIS Ex-smoker [facility] End: 07-10-2022 History of tobacco use Current smoker [facility] Start: 10-21-2022 End: 03-03-2023 Tobacco use panel [facility] Work Phone: How hard is it for y ou to pay for the very basics like food, housing, medical care, and heating Very hard [facility] Work Phone: (I/We) worried markell er (my/our) food would run out before (I/we) got money to buy more. Never true [facility] Work Phone: In the past 12 month s, has lack of transportation kept you from medical appointments or from getting medications? No [facility] Work Phone: In the past 12 month s, was there a time when you were not able to pay the mortgage or rent on time? No [facility] Work Phone: Start: 05-16-2022 End: 05-27-2022 Exposure to SARS-CoV-2 (event) Yes [facility] Start: 05-30-2022 Gender identity Identifies as female gender (finding) [facility] Start: 05-30-2022 Sexual orientation Heterosexual (finding) [facility] Start: 03-03-2023 End: 06-16-2023 Alcohol intake Ex-drinker (finding) [facility] Clinical Notes 03-27-2014 to 08-08-2023 Telephone Encounter - Solomon Hi DO - 08/08/2023 4:38 PM ESTTelephone Encounter - Solomon Hi, DO - 08/08/2023 4:38 PM ESTTelephone Encounter - Adrianna Taylor - 08/08/2023 2:30 PM EST Note Date & Type Note Facility 08-08-2023 Telephone encounter Note noted [facility] 08-08-2023 Miscellaneous Notes noted Name of caller: Lindsay Contact phone number: [phone] Relationship to Patient: [facility] Provider: Dr. Hi Practice: [facility] Chief Complaint/Reason for Call: Lindsay with [employer] wanted to let Dr. Hi know that pt is hospitalized inpatient at [facility] in [facility]. Pt was admitted on 08/03/23 reason for admitted is Psychosis. No discharge date Best time of day caller can be reached: AM Patient advised that office/PCP has 24-48 business hours to return their call: N/A documented in this encounter [facility] 08-08-2023 Telephone encounter Note Name of caller: Lindsay Contact phone number: [phone] Relationship to Patient: [facility] Provider: Dr. Hi Practice: [facility] Chief Complaint/Reason for Call: Lindsay with [employer] wanted to let Dr. Hi know that pt is hospitalized inpatient at [facility] in [facility]. Pt was admitted on 08/03/23 reason for admitted is Psychosis. No discharge date Best time of day caller can be reached: AM Patient advised that office/PCP has 24-48 business hours to return their call: N/A [facility] 08-08-2023 Miscellaneous Notes TC to pt with no answer, left VM to return call. Please let patient know her appointment today is to discuss headaches and not botox. If she would like to cancel today's appointment, we can get her rescheduled for botox in [place] with Bethany. Nellie Perez LPN documented in this encounter [facility] 07-24-2023 Telephone encounter Note Patient notified via voicemail that rx was sent. Patient also informed that Dr. Hi doesn't have any sooner appts but if she needs one she can always see one of the SCREEN PRINTING LOADER UNLOADER's [facility] 07-24-2023 Miscellaneous Notes Patient notified via voicemail that rx was sent. Patient also informed that Dr. Hi doesn't have any sooner appts but if she needs one she can always see one of the SCREEN PRINTING LOADER UNLOADER's Addended by: SOLOMON HI on: 07/22/2023 04:03 PM Modules accepted: Orders Rx sent for Zofran. I probably don't have any sooner appointments. S Patient calling B ongoing chronic A Ongoing nausea. Hx of cancer and kidney failure. Patient has been referred to multiple specialist. Is having ongoing intermittent nausea. Is now out of zofran. Requesting sooner follow up with Dr Hi and refill of zofran. R Pharmacy and allergies verified. Nothing sooner on schedule. Advised to call back with new or worsening symptoms. Thank you. Would like rx today if possible. Reason for Disposition Nausea is a chronic symptom (recurrent or ongoing AND present > 4 weeks) Protocols used: [id number] documented in this encounter [facility] 07-22-2023 Note Addended by: SOLOMON HI on: 07/22/2023 04:03 PM Modules accepted: Orders [facility] 07-22-2023 Note Addended by: SOLOMON HI on: 07/22/2023 04:03 PM Modules accepted: Orders [facility] [place] [employer] 07-22-2023 Note Addended by: SOLOMON HI on: 07/22/2023 04:03 PM Modules accepted: Orders [facility] [place] [employer] 07-22-2023 Telephone encounter Note Rx sent for Zofran. I probably don't have any sooner appointments. [facility] [place] [employer] 07-22-2023 Miscellaneous Notes Addended by: SOLOMON HI on: 07/22/2023 04:03 PM Modules accepted: Orders Rx sent for Zofran. I probably don't have any sooner appointments. S Patient calling B ongoing chronic A Ongoing nausea. Hx of cancer and kidney failure. Patient has been referred to multiple specialist. Is having ongoing intermittent nausea. Is now out of zofran. Requesting sooner follow up with Dr Hi and refill of zofran. R Pharmacy and allergies verified. Nothing sooner on schedule. Advised to call back with new or worsening symptoms. Thank you. Would like rx today if possible. Reason for Disposition Nausea is a chronic symptom (recurrent or ongoing AND present > 4 weeks) Protocols used: [id number] documented in this encounter [facility] [place] [employer] 07-21-2023 Telephone encounter Note S Patient calling B ongoing chronic A Ongoing nausea. Hx of cancer and kidney failure. Patient has been referred to multiple specialist. Is having ongoing intermittent nausea. Is now out of zofran. Requesting sooner follow up with Dr Hi and refill of zofran. R Pharmacy and allergies verified. Nothing sooner on schedule. Advised to call back with new or worsening symptoms. Thank you. Would like rx today if possible. Reason for Disposition Nausea is a chronic symptom (recurrent or ongoing AND present > 4 weeks) Protocols used: [id number] [facility] 07-21-2023 Miscellaneous Notes S Patient calling B ongoing chronic A Ongoing nausea. Hx of cancer and kidney failure. Patient has been referred to multiple specialist. Is having ongoing intermittent nausea. Is now out of zofran. Requesting sooner follow up with Dr Hi and refill of zofran. R Pharmacy and allergies verified. Nothing sooner on schedule. Advised to call back with new or worsening symptoms. Thank you. Would like rx today if possible. Reason for Disposition Nausea is a chronic symptom (recurrent or ongoing AND present > 4 weeks) Protocols used: [id number] documented in this encounter [facility] 06-16-2023 Note HNO ID: [id number] Author: Porter Horne MD Service: ? Author Type: Physician Type: Progress Notes Filed: 06/16/2023 12:00 PM Note Text: Longwall Foreman offered: Patient declines. Aissatou Johnson is a 32 year old female who presents for problem visit. HPI: She reports vulvar irritation. Her partner also is irritated. Patient would also like to be checked for vaginal infections. She has some stable dysuria AND was just treated for a UTI. OB History T0 L1 SAB0 IAB0 Ectopic0 Multiple0 Live Births1 Ur Coordinator History LMP: 04/15/2023 (Exact Date), Implant Age at Menarche: Age at First : Age at Menopause: Ur Coordinator History Comments: Sexual Activity: Yes; Male Contraception: Implant PAST MEDICAL HISTORY Diagnosis Date Alcohol abuse polysubstance abuse. 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 loss in left ear Depression 10/12/2011 Headache High blood pressure per patient - associated with breathing History of delivery Hodgkin's disease 2008 S/p chemo/radiation Hypothyroidism Solitary kidney, congenital pt born with single kidney PAST SURGICAL HISTORY Procedure Laterality Date SECTION HX 02/24/2016 HERPES 1 AND 2, IGB+ 2011 NEXPLANON INSERTION Left 04/20/2023 Placed in office PAST SURGICAL HISTORY OF kidney surgery PAST SURGICAL HISTORY OF rectal PAST SURGICAL HISTORY OF 06/09/2009 Left Supraclavicular Lymphnode Excision VSD CLOSURE FAMILY HISTORY Problem Relation Age of Onset Hypertension Mother other (depresssion) Mother No Known Problems Father Lung Cancer Maternal Grandfather other (ulcerative colitis) Paternal Grandmother Diabetes Maternal Aunt Social History Tobacco Use Smoking status: Former Packs/day: 0.50 Years: 0.70 Additional pack years: 0.00 Total pack years: 0.35 Types: Cigarettes Smokeless tobacco: Never Vaping Use Vaping Use: Former Substances: Nicotine, Flavoring Substance Use Topics Alcohol use: Not Currently Alcohol/week: 1.0 standard drink of alcohol Types: 1 Cans of beer per week Drug use: Not Currently Comment: used heroin, crack, marijuana, meth in past. Last used heroin and crack November 12, 2021 Current Outpatient Medications Medication Sig valACYclovir (VALTREX) 500 mg tablet Take by mouth. sulfamethoxazole-trimethoprim (BACTRIM) 400-80 mg per tablet Take 1 tablet by mouth two times a day. SUMAtriptan (IMITREX) 100 mg tablet Take 1 tablet (100 mg) by mouth as needed for migraine headache (see administration instructions). May repeat dose after 2 hours if needed. Maximum daily dose is 200 mg per day. No more than 10 doses in a month. rimegepant (NURTEC ODT) 75 mg disintegrating tablet Take 1 tablet by mouth once daily as needed. ADVAIR DISKUS 500-50 mcg/dose dsdv Inhale 1 Puff as instructed two times a day. RINSE AND GARGLE MOUTH WITH WATER AFTER EACH USE. montelukast (SINGULAIR) 10 mg tablet Take 1 tablet by mouth daily at bedtime. etonogestrel (NEXPLANON) subdermal implant 68 mg 1 Each by SUBDERMAL route as directed. amitriptyline (ELAVIL) 10 mg tablet Take 10 mg by mouth daily at bedtime. VITAMIN D-3 50 mcg (2,000 unit) cap Take 1 capsule by mouth once daily. levothyroxine (SYNTHROID) 150 mcg tablet Take 1 tablet by mouth once daily. VITAMIN B-12 500 mcg tab tab(s) Take 1 tablet by mouth once daily. No current facility-administered medications for this visit. Allergies As of Date: 06/16/2023 Allergen Noted Reaction CATS 10/27/2010 Shortness of Breath CEFTRIAXONE 09/25/2019 Hives and Unknown DROPERIDOL 08/06/2012 Anaphylaxis LAXATIVE PILL 09/25/2019 GI Upset Fully Assessed 06/14/2023 Allergies and current medication updated:Yes EXAM: LMP 04/15/2023 GENERAL: pleasant, female in no apparent distress PELVIC: external genitalia normal but some erythema, normal Bartholin's glands, urethra, Watse[place]'s glands, no vulvar lesions, no cervical lesions, good vaginal support, white discharge present c/w yeast, normal appearing perineal body and perianal region ASSESSMENT AND PLAN: 32yo female with vulvovaginitis AND recent UTI Vaginitis panel UA AND urine culture Rx kenalog ointment for vulvar dermatitis. Advised on AANDD ointment and vulvar hygiene Monistat 7 for yeast AND advised that partner is also treated H/o HSV - valtrex for prophylaxis Medical Decision Making: Problems: Low: 2+ self-limited or minor problems Data: Unique test(s) ordered: 3+ Risk: Moderate: Drug management Medical Decision Making Level: 4 - Moderate Porter Horne MD [facility] 06-14-2023 Note HNO ID: [id number] Author: Aspen Kirkpatrick MD Service: ? Author Type: Physician Type: Progress Notes Filed: 06/14/2023 1:23 PM Note Text: This consult is seen at the kind request of Dr. Aneta Castillo of pulmonary medicine, and my final recommendations will be communicated to the requesting health care provider by way of shared electronic medical record. This note is formatted with the impression and plan first and the history and physical to follow. IMPRESSION 32-year-old female with shortness of breath, throat tightness, and migraine. Flexible laryngoscopy showed no abnormalities. She has no evidence of acute or chronic sinusitis. RECOMMENDATION/PLAN With patient scope exam being normal, I recommend she continue to follow with pulmonology for her shortness of breath. Her throat tightness does not sound like vocal cord dysfunction since it does not seem to affect her breathing at that time she had no stridor or any evidence of noisy breathing. She could try reflux medication 40 mg of Prilosec once a day to see if will help with the symptoms. Though this will unlikely to make a difference for her shortness of breath. Lastly, I recommend she continue follow-up with neurology for her migraine. Chief Complaint Shortness of breath, throat tightness, increasing migraine. History of Present Illness Aissatou Johnson is a 32 year old female presenting for shortness of breath, throat tightness, and increasing migraine. Patient stated that for the last several months, she has been having shortness of breath that is constant. She feels short of breath with exertion as well as talking. She denies any noisy breathing. Occasionally, she will have some tightness in her throat that can last a few hours. However, during these episodes, she denies any worsening of her breathing or any signs of noisy breathing. She had no trouble swallowing. Furthermore, she is also complaining of worsening migraines. She was just started on Botox injection. Patient had a CT scan of her chest on April 20, 2023 which was reviewed and interpreted by me. On the imaging, I do not see any subglottic or tracheal narrowing. Patient also had MRI scan of her brain on April 11, 2023. The imaging was also reviewed by me and I do not see evidence of acute or chronic sinusitis. PAST MEDICAL HISTORY Diagnosis Date Alcohol abuse polysubstance abuse. 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 loss in left ear Depression 10/12/2011 Headache High blood pressure per patient - associated with breathing History of delivery Hodgkin's disease 2008 S/p chemo/radiation Hypothyroidism Solitary kidney, congenital pt born with single kidney PAST SURGICAL HISTORY Procedure Laterality Date SECTION HX 02/24/2016 HERPES 1 AND 2, IGB+ 2011 NEXPLANON INSERTION Left 04/20/2023 Placed in office PAST SURGICAL HISTORY OF kidney surgery PAST SURGICAL HISTORY OF rectal PAST SURGICAL HISTORY OF 06/09/2009 Left Supraclavicular Lymphnode Excision VSD CLOSURE FAMILY HISTORY Problem Relation Age of Onset Hypertension Mother other (depresssion) Mother No Known Problems Father Lung Cancer Maternal Grandfather other (ulcerative colitis) Paternal Grandmother Diabetes Maternal Aunt CURRENT OUTPATIENT MEDICATIONS Current Outpatient Medications on File Prior to Visit Medication Sig valACYclovir (VALTREX) 500 mg tablet Take by mouth. sulfamethoxazole-trimethoprim (BACTRIM) 400-80 mg per tablet Take 1 tablet by mouth two times a day. SUMAtriptan (IMITREX) 100 mg tablet Take 1 tablet (100 mg) by mouth as needed for migraine headache (see administration instructions). May repeat dose after 2 hours if needed. Maximum daily dose is 200 mg per day. No more than 10 doses in a month. rimegepant (NURTEC ODT) 75 mg disintegrating tablet Take 1 tablet by mouth once daily as needed. ADVAIR DISKUS 500-50 mcg/dose dsdv Inhale 1 Puff as instructed two times a day. RINSE AND GARGLE MOUTH WITH WATER AFTER EACH USE. montelukast (SINGULAIR) 10 mg tablet Take 1 tablet by mouth daily at bedtime. etonogestrel (NEXPLANON) subdermal implant 68 mg 1 Each by SUBDERMAL route as directed. amitriptyline (ELAVIL) 10 mg tablet Take 10 mg by mouth daily at bedtime. VITAMIN D-3 50 mcg (2,000 unit) cap Take 1 capsule by mouth once daily. levothyroxine (SYNTHROID) 150 mcg tablet Take 1 tablet by mouth once daily. VITAMIN B-12 500 mcg tab tab(s) Take 1 tablet by mouth once daily. No current facility-administered medications on file prior to visit. ALLERGIES ALLERGIES Allergen Reactions Cats Shortness of Breath Ceftriaxone Hives, Unknown Has tolerated augmentin, zosyn, cephalexin, cefazolin. Has received many doses of ceftriaxone in the past. Droperidol Anaphylaxis Laxative Pill GI Upset The remainder of the pa (more content not included)... [facility] 06-08-2023 Note HNO ID: [id number] Author: Mayuri Mensah PA-C Service: ? Author Type: Physician Ingot Supervisor Type: Progress Notes Filed: 06/08/2023 12:15 PM Note Text: Patient: Aissatou Johnson PCP: Solomon Hi DO, DO CC: follow up HPI: Aissatou Johnson 32 year old female former smoker and vaping with PMH significant for polysubstance abuse, asthma, HTN, Hodgkin's lymphoma s/p chemoradiation, Vater syndrome, hypothyroidism, bipoolar disorder, and asthma. Current therapy with high does Advair, Singulair, and as needed Albuterol. Today, patient denies cough or wheezing. Primary respiratory complaint is chest tightness and SOB. Feels at times that her throat is closing. She was referred to ENT at last OV, but cancelled appointment. She is scheduled with Dr. Kirkpatrick, ENT in [place]. Has not noticed any relief with inhaled therapy. No current GERD symptoms. PAST MEDICAL HISTORY Diagnosis Date Alcohol abuse polysubstance abuse. 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 loss in left ear Depression 10/12/2011 Headache High blood pressure per patient - associated with breathing History of delivery Hodgkin's disease 2008 S/p chemo/radiation Hypothyroidism Solitary kidney, congenital pt born with single kidney Allergies: Cats Shortness of Breath Ceftriaxone Hives, Unknown Comment:Has tolerated augmentin, zosyn, cephalexin, cefazolin. Has received many doses of ceftriaxone in the past. Droperidol Anaphylaxis Laxative Pill GI Upset SUMAtriptan (IMITREX) 100 mg tablet Take 1 tablet (100 mg) by mouth as needed for migraine headache (see administration instructions). May repeat dose after 2 hours if needed. Maximum daily dose is 200 mg per day. No more than 10 doses in a month. rimegepant (NURTEC ODT) 75 mg disintegrating tablet Take 1 tablet by mouth once daily as needed. ADVAIR DISKUS 500-50 mcg/dose dsdv Inhale 1 Puff as instructed two times a day. RINSE AND GARGLE MOUTH WITH WATER AFTER EACH USE. montelukast (SINGULAIR) 10 mg tablet Take 1 tablet by mouth daily at bedtime. predniSONE (DELTASONE) 20 mg tablet Take two daily for 5 days. etonogestrel (NEXPLANON) subdermal implant 68 mg 1 Each by SUBDERMAL route as directed. amitriptyline (ELAVIL) 10 mg tablet Take 10 mg by mouth daily at bedtime. VITAMIN D-3 50 mcg (2,000 unit) cap Take 1 capsule by mouth once daily. levothyroxine (SYNTHROID) 150 mcg tablet Take 1 tablet by mouth once daily. VITAMIN B-12 500 mcg tab tab(s) Take 1 tablet by mouth once daily. Social History Tobacco Use Smoking status: Former Packs/day: 0.50 Years: 0.70 Additional pack years: 0.00 Total pack years: 0.35 Types: Cigarettes Smokeless tobacco: Never Vaping Use Vaping Use: Former Substances: Nicotine, Flavoring Substance Use Topics Alcohol use: Not Currently Alcohol/week: 1.0 standard drink of alcohol Types: 1 Cans of beer per week Drug use: Not Currently Comment: used heroin, crack, marijuana, meth in past. Last used heroin and crack November 12, 2021 Pets: dog No occupational exposures Family History Problem Relation Age of Onset Hypertension Mother other (depresssion) Mother No Known Problems Father Lung Cancer Maternal Grandfather other (ulcerative colitis) Paternal Grandmother Diabetes Maternal Aunt PAST SURGICAL HISTORY Procedure Laterality Date SECTION HX 02/24/2016 HERPES 1 AND 2, IGB+ 2011 NEXPLANON INSERTION Left 04/20/2023 Placed in office PAST SURGICAL HISTORY OF kidney surgery PAST SURGICAL HISTORY OF rectal PAST SURGICAL HISTORY OF 06/09/2009 Left Supraclavicular Lymphnode Excision VSD CLOSURE I reviewed the past medical history, family history, social history and surgical history with changes noted above and updated in EMR. IMMUNIZATIONS Prevnar - xx Pneumovax 23 - xx Influenza - xx COVID-19 - xx ROS: CONSTITUTIONAL: No fevers, chills, nightsweats, unintended weight loss HEENT: Denies nasal congestion/sinus symptoms, allergy problems. Migraine headaches EYES: No diplopia or blurry vision. CARDIOVASCULAR: No chest pain, palpitations, orthopnea, PND, edema. PULM: See HPI GI: No dysphagia/odynophagia, problematic reflux NEURO: No new balance problems, peripheral weakness/paresthesias or numbness of concern. MUSC-SKEL: No joint pain, swelling, or erythema. PSY: Anxiety and depression. H/o substance abuse INTEGUMENTARY: No skin sensitivity or h/o eczema. PHYSICAL EXAMINATION: BP 120/88 (BP Site: Right Arm, BP Position: Sitting, BP Cuff Size: Regular Adult) Pulse 96 Resp 14 Wt 63 kg (139 lb) LMP 04/15/2023 (Exact Date) SpO2 97% BMI 20.92 kg/m? Gen: No acute distress. Cooperative with examination. HEENT: Normocephalic. Sclera, conjunctiva clear. Oral hygeine and dentition good. No thrush. Resp: No stridor, accessory respirato (more content not included)... [facility] 06-08-2023 Note HNO ID: [id number] Author: Marta Patel RPFT Service: ? Author Type: Respiratory Therapist Type: Procedures Filed: 06/08/2023 8:51 AM Note Text: RESPIRATORY THERAPY ORAL EXHALED NITRIC OXIDE SERVICE DATE: 06/08/2023 SERVICE TIME: 8:50 AM Oral Exhaled Nitric Oxide measurement: 23.0 (ppb) Normal: Adult 5-20 ppb, pediatric (<12 years) 5-15 ppb High Normal / Increased: Adult 20-35 ppb, pediatric (<12 years) 15-25 ppb Moderately raised exhaled Nitric Oxide may indicate underlying inflammation, but note that: Cold and influenza can raise exhaled Nitric Oxide and some patients have higher baseline exhaled Nitric Oxide levels than others. High: Adult >35 ppb, pediatric (<12 years) >25 ppb Indicative of ongoing eosinophilic inflammation. Symptomatic patient likely to respond to steroids. Possible causes (if already on steroids): Poor compliance, recent allergen exposure, steroid dose inadequate, and steroid resistance. Note that not all patients with high exhaled nitric oxide levels display symptoms. Oral Exhaled Nitric Oxide measurement (Previous Encounters) Test Date Oral Exhaled Nitric Oxide (ppb) 06/08/2023 23.0 NAME: TR Hassan PATIENT NAME: Aissatou Johnson DATE: June 08, 2023 TIME: 8:50 AM [facility] 06-08-2023 Note HNO ID: [id number] Author: Marta Patel RPFT Service: ? Author Type: Respiratory Therapist Type: Progress Notes Filed: 06/08/2023 8:51 AM Note Text: PULM FUNCTION SMARTBLOCK: Provider: Aneta Castillo MD Assisting Tech: Marta Patel RPFT Spirometry: 1 Exhaled Nitric Oxide: 1 [facility] 06-08-2023 History of Present illness Narrative Images from the original note were not included. Patient: Aissatou Johnson PCP: Solomon Hi DO, DO CC: follow up HPI: Aissatou Johnson 32 year old female former smoker and vaping with PMH significant for polysubstance abuse, asthma, HTN, Hodgkin's lymphoma s/p chemoradiation, Vater syndrome, hypothyroidism, bipoolar disorder, and asthma. Current therapy with high does Advair, Singulair, and as needed Albuterol. Today, patient denies cough or wheezing. Primary respiratory complaint is chest tightness and SOB. Feels at times that her throat is closing. She was referred to ENT at last OV, but cancelled appointment. She is scheduled with Dr. Kirkpatrick, ENT in [place]. Has not noticed any relief with inhaled therapy. No current GERD symptoms. PAST MEDICAL HISTORY Diagnosis Date Alcohol abuse polysubstance abuse. 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 loss in left ear Depression 10/12/2011 Headache High blood pressure per patient - associated with breathing History of delivery Hodgkin's disease 2009 S/p chemo/radiation Hypothyroidism Solitary kidney, congenital pt born with single kidney Allergies: Cats Shortness of Breath Ceftriaxone Hives, Unknown Comment:Has tolerated augmentin, zosyn, cephalexin, cefazolin. Has received many doses of ceftriaxone in the past. Droperidol Anaphylaxis Laxative Pill GI Upset SUMAtriptan (IMITREX) 100 mg tablet Take 1 tablet (100 mg) by mouth as needed for migraine headache (see administration instructions). May repeat dose after 2 hours if needed. Maximum daily dose is 200 mg per day. No more than 10 doses in a month. rimegepant (NURTEC ODT) 75 mg disintegrating tablet Take 1 tablet by mouth once daily as needed. ADVAIR DISKUS 500-50 mcg/dose dsdv Inhale 1 Puff as instructed two times a day. RINSE AND GARGLE MOUTH WITH WATER AFTER EACH USE. montelukast (SINGULAIR) 10 mg tablet Take 1 tablet by mouth daily at bedtime. predniSONE (DELTASONE) 20 mg tablet Take two daily for 5 days. etonogestrel (NEXPLANON) subdermal implant 68 mg 1 Each by SUBDERMAL route as directed. amitriptyline (ELAVIL) 10 mg tablet Take 10 mg by mouth daily at bedtime. VITAMIN D-3 50 mcg (2,000 unit) cap Take 1 capsule by mouth once daily. levothyroxine (SYNTHROID) 150 mcg tablet Take 1 tablet by mouth once daily. VITAMIN B-12 500 mcg tab tab(s) Take 1 tablet by mouth once daily. Social History Tobacco Use Smoking status: Former Packs/day: 0.50 Years: 0.70 Additional pack years: 0.00 Total pack years: 0.35 Types: Cigarettes Smokeless tobacco: Never Vaping Use Vaping Use: Former Substances: Nicotine, Flavoring Substance Use Topics Alcohol use: Not Currently Alcohol/week: 1.0 standard drink of alcohol Types: 1 Cans of beer per week Drug use: Not Currently Comment: used heroin, crack, marijuana, meth in past. Last used heroin and crack November 12, 2021 Pets: dog No occupational exposures Family History Problem Relation Age of Onset Hypertension Mother other (depresssion) Mother No Known Problems Father Lung Cancer Maternal Grandfather other (ulcerative colitis) Paternal Grandmother Diabetes Maternal Aunt PAST SURGICAL HISTORY Procedure Laterality Date SECTION HX 02/24/2016 HERPES 1 & 2, IGB+ 2011 NEXPLANON INSERTION Left 04/20/2023 Placed in office PAST SURGICAL HISTORY OF kidney surgery PAST SURGICAL HISTORY OF rectal PAST SURGICAL HISTORY OF 06/09/2009 Left Supraclavicular Lymphnode Excision VSD CLOSURE I reviewed the past medical history, family history, social history and surgical history with changes noted above and updated in EMR. IMMUNIZATIONS Prevnar - xx Pneumovax 23 - xx Influenza - xx COVID-19 - xx ROS: CONSTITUTIONAL: No fevers, chills, nightsweats, unintended weight loss HEENT: Denies nasal congestion/sinus symptoms, allergy problems. Migraine headaches EYES: No diplopia or blurry vision. CARDIOVASCULAR: No chest pain, palpitations, orthopnea, PND, edema. PULM: See HPI GI: No dysphagia/odynophagia, problematic reflux NEURO: No new balance problems, peripheral weakness/paresthesias or numbness of concern. MUSC-SKEL: No joint pain, swelling, or erythema. PSY: Anxiety and depression. H/o substance abuse INTEGUMENTARY: No skin sensitivity or h/o eczema. PHYSICAL EXAMINATION: BP 120/88 (BP Site: Right Arm, BP Position: Sitting, BP Cuff Size: Regular Adult) Pulse 96 Resp 14 Wt 63 kg (139 lb) LMP 04/15/2023 (Exact Date) SpO2 97% BMI 20.92 kg/m Gen: No acute distress. Cooperative with examination. HEENT: Normocephalic. Sclera, conjunctiva clear. Oral hygeine and dentition good. No thrush. Resp: No stridor, accessory respiratory muscle use, supra-sternal or intercostal retractions. No wheezes, crackles. CV: Regular rythm. Heart tones normal. Radial pulses normal. MSK: No kyphoscoliosis. Ext: Warm and well perfused. No clubbing, cyanosis, edema. Skin: No rash, ecchymoses. Neuro: Mental status normal. Affect normal. No tremor. DATA: Exhaled nitric oxide (Karine), 06/08/2023: 23 (normal < 20). PFT, 06/08/2023 PFT [facility] 11/18/2022: FVC 3.19 L 71% postbronchodilator 3.38 L 6% change FEV1 1.89 L 51% postbronchodilator 2.64 L 40% change FEV1/FVC 59% TLC 4.60 L 75% RV 1.55 L 109% RV/TLC 34% ERV 1.08 m 67% DLCO 18.[address] 76% CT chest, 04/20/2023 Comparison: This study is correlated with patient's CT abdomen pelvis on 03/22/2022. RESULT: Limitations: None. Lines, tubes, and devices: None. Lung parenchyma and airways: The central airways are patent. There is a 4.5 mm solid nodule in the right lower lobe, series 6.11. No mass lesions seen. Mild left apical scarring noted; the lungs are otherwise clear. Pleural space: No pleural effusion or pneumothorax. No pleural thickening. Lower neck, lymph nodes, and mediastinum: The imaged thyroid gland is normal. No lymphadenopathy in the supraclavicular, axillary, mediastinal, or hilar regions. A few calcified lymph nodes seen in the upper mediastinum. Heart, pericardium, and thoracic vessels: The thoracic aorta and main pulmonary artery are normal in caliber. The cardiac chambers are normal in size. No coronary artery atherosclerotic calcifications are noted, although the study is not optimized for coronary assessment. No pericardial effusion or thickening. Bones and soft tissues: No destructive bone lesion. Chest wall is unremarkable. Upper abdomen: Limited study through the upper abdomen demonstrates enlargement of the left kidney, with a few low-attenuation areas; overall findings similar to prior study. No right-sided kidney seen in the right upper quadrant abdomen/retroperitoneum. IMPRESSION: No CT evidence of acute abnormality.4.5 mm right lung nodule. Labs Component Latest Ref Rng & Units 04/19/2023 [place] IgE <0.35 kU/l <0.35 [place] Class Class 0 Class 0 [id number] [place] Grass <0.35 kU/l 3.39 (H) Constantin Grass Class Class 0 Class 2 (A) Viri Grass IgE <0.35 kU/l 5.37 (H) Viri Grass Class Class 0 Class 3 (A) Short Ragweed IgE <0.35 kU/l <0.35 Short Ragweed Class Class 0 Class 0 [place] Quarters IgE <0.35 kU/l <0.35 [place] Class Class 0 Class 0 Cat Dander IgE <0.35 kU/l 0.73 (H) Cat Dander Class Class 0 Class 2 (A) Dog Dander IgE <0.35 kU/l 8.82 (H) Dog Dander Class Class 0 Class 3 (A) Cladosporium herbarum IgE <0.35 kU/l <0.35 Cladosporium herbarum Class Class 0 Class 0 Alternaria tenuis IgE <0.35 kU/l <0.35 Alternaria tenuis Class Class 0 Class 0 D. farinae IgE <0.35 kU/l 8.45 (H) D. farinae Class Class 0 Class 3 (A) IgE <114.0 kU/l 79.5 ASSESSMENT/PLAN: 1. Severe persistent asthma without complication - ICD9: 493.90, ICD10: J45.50 (primary diagnosis) Symptomatically continues with chest/throat tightness and SOB despite inhaled ICS/LABA and oral steroids. Has appointment with ENT coming up. Continue Breo with as needed Albuterol at this time. 2. Interstitial pulmonary disease (HCC) - ICD9: 515, ICD10: J84.9 No evidence of pulmonary fibrosis on CT chest. Findings most likely represent granulomatous disease and will repeat CT chest in 1 year. 3. Hodgkin lymphoma of lymph nodes of multiple regions, unspecified Hodgkin lymphoma type (HCC) - ICD9: 201.98, ICD10: C81.98 Has not followed through with oncology follow up. Portions of this documentation were copied and pasted from previous office visit notes in order to provide a cohesive continuity of the history. The note has been reviewed and edited and updated as necessary. Mayuri Mensah PA-C documented in this encounter [facility] 06-06-2023 Miscellaneous Notes Fax received from [facility] stating Nurtec has been approved fron 06-06-23 to 12-02-23. Pt notified via [employer] message and auth scanned into chart. Nellie Perez LPN TC to [facility] pharmacy to check on prior authorization status. Additional information given over the phone. Prior auth has been resent to get another decision. Await decision. Nellie Perez LPN Phone call placed detailed message left on patients identified voicemail. [facility] started 05/09/2023, can take up to thirty days from receipt. Iris Clement LPN Pt reports a migraine that started ~1 wk ago. Pt states she finished all of the sumatriptan she had on hand & has not taken anything for headache for the last couple days. Pt states pain is 7/8 on a 0-10 pain scale. +nausea & very light sensitive. Pt states pain starts in the back of her neck, shoots up into back of skull & goes around to face. Pt got a botox injection 05/05/23 & initially had relief but not anymore. Pt is asking if office has received info back for the PA on nurtec? Please advise. Shanda Conte LPN documented in this encounter [facility] 06-02-2023 Note HNO ID: [id number] Author: Sammy Thompson APRN.WILLIAM Service: ? Author Type: Nurse Practitioner Type: Progress Notes Filed: 06/02/2023 8:50 AM Note Text: Telemedicine Visit - Distance Health Virtual Visit Note Patient seen on [employer] Zoom Video Visit platform. Location of patient: [place] History of Present Illness Aissatou Johnson is a 32 year old old female with a history of UTI symptoms for days. Urinary symptoms ROS: Positive for Dysuria, Increase in frequency of urination, Urgency, and Sense of incomplete void, Negative for Abdominal pain and Back/Flank pain Chance of : On Nexplanon Any self-treatment attempted: No Number of previous UTI's in last 6 months:0 Number of previous UTI's in last 12 months: 1 Alleviating Factors include Has not tried any specific treatment PAST MEDICAL HISTORY Diagnosis Date Alcohol abuse polysubstance abuse. 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 loss in left ear Depression 10/12/2011 Headache High blood pressure per patient - associated with breathing History of delivery Hodgkin's disease 2008 S/p chemo/radiation Hypothyroidism Solitary kidney, congenital pt born with single kidney PAST SURGICAL HISTORY Procedure Laterality Date SECTION HX 02/24/2016 HERPES 1 AND 2, IGB+ 2011 NEXPLANON INSERTION Left 04/20/2023 Placed in office PAST SURGICAL HISTORY OF kidney surgery PAST SURGICAL HISTORY OF rectal PAST SURGICAL HISTORY OF 06/09/2009 Left Supraclavicular Lymphnode Excision VSD CLOSURE FAMILY HISTORY Problem Relation Age of Onset Hypertension Mother other (depresssion) Mother No Known Problems Father Lung Cancer Maternal Grandfather other (ulcerative colitis) Paternal Grandmother Diabetes Maternal Aunt Social History Tobacco Use Smoking status: Former Packs/day: 0.50 Years: 0.70 Additional pack years: 0.00 Total pack years: 0.35 Types: Cigarettes Smokeless tobacco: Never Vaping Use Vaping Use: Former Substances: Nicotine, Flavoring Substance Use Topics Alcohol use: Not Currently Alcohol/week: 1.0 standard drink of alcohol Types: 1 Cans of beer per week Drug use: Not Currently Comment: used heroin, crack, marijuana, meth in past. Last used heroin and crack November 12, 2021 ALLERGIES Allergen Reactions Cats Shortness of Breath Ceftriaxone Hives, Unknown Has tolerated augmentin, zosyn, cephalexin, cefazolin. Has received many doses of ceftriaxone in the past. Droperidol Anaphylaxis Laxative Pill GI Upset Current Outpatient Medications Medication Sig SUMAtriptan (IMITREX) 100 mg tablet Take 1 tablet (100 mg) by mouth as needed for migraine headache (see administration instructions). May repeat dose after 2 hours if needed. Maximum daily dose is 200 mg per day. No more than 10 doses in a month. rimegepant (NURTEC ODT) 75 mg disintegrating tablet Take 1 tablet by mouth once daily as needed. ADVAIR DISKUS 500-50 mcg/dose dsdv Inhale 1 Puff as instructed two times a day. RINSE AND GARGLE MOUTH WITH WATER AFTER EACH USE. montelukast (SINGULAIR) 10 mg tablet Take 1 tablet by mouth daily at bedtime. predniSONE (DELTASONE) 20 mg tablet Take two daily for 5 days. etonogestrel (NEXPLANON) subdermal implant 68 mg 1 Each by SUBDERMAL route as directed. amitriptyline (ELAVIL) 10 mg tablet Take 10 mg by mouth daily at bedtime. VITAMIN D-3 50 mcg (2,000 unit) cap Take 1 capsule by mouth once daily. levothyroxine (SYNTHROID) 150 mcg tablet Take 1 tablet by mouth once daily. VITAMIN B-12 500 mcg tab tab(s) Take 1 tablet by mouth once daily. No current facility-administered medications for this visit. Video Exam (Examination performed via Video enabled technology) General Appearance: 32 year old yo female in NAD; not ill or toxic appearing Abdomen: non-tender by self palpation CVA Tenderness: non-tender bilaterally by self palpation ASSESSMENT/PLAN: 1. Acute cystitis without hematuria - ICD9: 595.0, ICD10: N30.00 - SULFAMETHOXAZOLE 800 MG-TRIMETHOPRIM 160 MG TABLET Given one kidney with decreased CrCl and duration of symptoms, feel best approach would be UCx before initiating treatment or even in person evaulation, but patient adverse to being seen in person or going anywhere for additional care at this point. Feel risks of doing nothing in this situation outweigh risk that her symptoms are possibly complicated and this is not the right treatment. Stressed that if her symptoms persist or worsen despite treatment, then she needs to be seen in person and she agreed to this plan. Estimated CrCl is about 42. - Red flags discussed for in person care and follow up - All questions answered Sammy Thompson APRN.CNP I have communicated my name and active licensure. The patient's identity and physical location were verified at the time of this visit. Eithe (more content not included)... [facility] 06-02-2023 Instructions Sammy Thompson APRN.CNP - 06/02/2023 8:49 AM EST Images from the original note were not included. If symptoms are persisting over the next 48-72 hours or worsen at any time despite treatment, please seek further in person evaluation Urinary Problem-When to Seek Help? Symptoms of a urinary problem may lead to a bladder infection. Women are at greater risk of a urinary tract infection than are men. Most urinary tract infections in women are caused by bacteria and involve the lower urinary tract including the bladder and urethra. Symptoms: Pain or burning when passing urine, urgency, frequency, blood in the urine, difficult emptying your bladder, and lower abdominal fullness or pressure. Common Causes: Sexual intercourse, menopause, constipation, uncontrolled diabetes, dehydration and feminine products such as tampons, and kidney stones. When to Get Help: Seek medical attention if you get frequent bladder infections, urinary concerns such as leakage, blood in the urine or frequent need to urinate. You may be recommended to get help from a specialist, such as a urologist. Diagnosis & Treatment: Lab testing may include: urinalysis, and urine culture that can be collected in the lab or walk-in clinic. Most bladder infections can easily be treated. A physician, nurse practitioner or physician visual merchandising assistant may treat with a short course of an antibiotic. Delaying treatment can lead to worsening symptoms, like a kidney infection. Self-Care: Avoid a full bladder, bubble baths, bath oils, food and beverages that may irritate the bladder such as caffeine. Avoid spermicide foam and diaphragms Void before and after sexual intercourse Wipe front to back after using the bathroom. Stay hydrated Stop Smoking Follow-up Care: Follow up testing is not needed in healthy young women if symptoms resolve. documented in this encounter [facility] 06-02-2023 History of Present illness Narrative Telemedicine Visit - Distance Health Virtual Visit Note Patient seen on Lum[employer] Video Visit platform. Location of patient: [place] History of Present Illness Aissatou Johnson is a 32 year old old female with a history of UTI symptoms for days. Urinary symptoms ROS: Positive for Dysuria, Increase in frequency of urination, Urgency, and Sense of incomplete void, Negative for Abdominal pain and Back/Flank pain Chance of : On Nexplanon Any self-treatment attempted: No Number of previous UTI's in last 6 months:0 Number of previous UTI's in last 12 months: 1 Alleviating Factors include Has not tried any specific treatment PAST MEDICAL HISTORY Diagnosis Date Alcohol abuse polysubstance abuse. 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 loss in left ear Depression 10/12/2011 Headache High blood pressure per patient - associated with breathing History of delivery Hodgkin's disease 2008 S/p chemo/radiation Hypothyroidism Solitary kidney, congenital pt born with single kidney PAST SURGICAL HISTORY Procedure Laterality Date SECTION HX 02/24/2016 HERPES 1 & 2, IGB+ 2011 NEXPLANON INSERTION Left 04/20/2023 Placed in office PAST SURGICAL HISTORY OF kidney surgery PAST SURGICAL HISTORY OF rectal PAST SURGICAL HISTORY OF 06/09/2009 Left Supraclavicular Lymphnode Excision VSD CLOSURE FAMILY HISTORY Problem Relation Age of Onset Hypertension Mother other (depresssion) Mother No Known Problems Father Lung Cancer Maternal Grandfather other (ulcerative colitis) Paternal Grandmother Diabetes Maternal Aunt Social History Tobacco Use Smoking status: Former Packs/day: 0.50 Years: 0.70 Additional pack years: 0.00 Total pack years: 0.35 Types: Cigarettes Smokeless tobacco: Never Vaping Use Vaping Use: Former Substances: Nicotine, Flavoring Substance Use Topics Alcohol use: Not Currently Alcohol/week: 1.0 standard drink of alcohol Types: 1 Cans of beer per week Drug use: Not Currently Comment: used heroin, crack, marijuana, meth in past. Last used heroin and crack November 12, 2021 ALLERGIES Allergen Reactions Cats Shortness of Breath Ceftriaxone Hives, Unknown Has tolerated augmentin, zosyn, cephalexin, cefazolin. Has received many doses of ceftriaxone in the past. Droperidol Anaphylaxis Laxative Pill GI Upset Current Outpatient Medications Medication Sig SUMAtriptan (IMITREX) 100 mg tablet Take 1 tablet (100 mg) by mouth as needed for migraine headache (see administration instructions). May repeat dose after 2 hours if needed. Maximum daily dose is 200 mg per day. No more than 10 doses in a month. rimegepant (NURTEC ODT) 75 mg disintegrating tablet Take 1 tablet by mouth once daily as needed. ADVAIR DISKUS 500-50 mcg/dose dsdv Inhale 1 Puff as instructed two times a day. RINSE AND GARGLE MOUTH WITH WATER AFTER EACH USE. montelukast (SINGULAIR) 10 mg tablet Take 1 tablet by mouth daily at bedtime. predniSONE (DELTASONE) 20 mg tablet Take two daily for 5 days. etonogestrel (NEXPLANON) subdermal implant 68 mg 1 Each by SUBDERMAL route as directed. amitriptyline (ELAVIL) 10 mg tablet Take 10 mg by mouth daily at bedtime. VITAMIN D-3 50 mcg (2,000 unit) cap Take 1 capsule by mouth once daily. levothyroxine (SYNTHROID) 150 mcg tablet Take 1 tablet by mouth once daily. VITAMIN B-12 500 mcg tab tab(s) Take 1 tablet by mouth once daily. No current facility-administered medications for this visit. Video Exam (Examination performed via Video enabled technology) General Appearance: 32 year old yo female in NAD; not ill or toxic appearing Abdomen: non-tender by self palpation CVA Tenderness: non-tender bilaterally by self palpation ASSESSMENT/PLAN: 1. Acute cystitis without hematuria - ICD9: 595.0, ICD10: N30.00 - SULFAMETHOXAZOLE 800 MG-TRIMETHOPRIM 160 MG TABLET Given one kidney with decreased CrCl and duration of symptoms, feel best approach would be UCx before initiating treatment or even in person evaulation, but patient adverse to being seen in person or going anywhere for additional care at this point. Feel risks of doing nothing in this situation outweigh risk that her symptoms are possibly complicated and this is not the right treatment. Stressed that if her symptoms persist or worsen despite treatment, then she needs to be seen in person and she agreed to this plan. Estimated CrCl is about 42. - Red flags discussed for in person care and follow up - All questions answered Sammy Thompson, REHABILITATION ENGINEER.ELECTRICAL DISCHARGE MACHINE OPERATOR I have communicated my name and active licensure. The patient's identity and physical location were verified at the time of this visit. Either the patient or their legal medical center representative has been informed of the risks and benefits of -- and alternatives to -- treatment through a remote evaluation and consents to proceed with the evaluation remotely. If you let us know who your primary care provider is, we will send them a notification of today s visit through our electronic medical records system. Since not all providers have access to our notifications, we strongly encourage you to share the following record of today s visit with your primary care provider at your next visit. This will help in providing you the best care. If you do not have an established Primary Care physician and would like to continue care with a [facility] Virtual Primary Care physician, please ask your provider to place a Establish Primary Care order. Use YouAppi to manage your care, wherever you are, 16/01, on your mobile device or computer. YouAppi connects you to [email or web address] so you can access all your health information in one place and also schedule and request virtual appointments with primary care providers. documented in this encounter [facility] 05-31-2023 Miscellaneous Notes S: Patient called the [facility] [place] Urinary urgency/frequency, also feels anxiety/hyperactive B: Per nurse triage ticket created by JAZZMINE A: Patient disconnected prior to speaking with nurse. No answer upon return call to patient. R: Left voice message for patient to call the office if assistance is still needed. Reason for Disposition Message left on identified voicemail Protocols used: No Contact or Duplicate Contact [id number] documented in this encounter [facility] 05-31-2023 Telephone encounter Note S: Patient called the [facility] Urinary urgency/frequency, also feels anxiety/hyperactive B: Per nurse triage ticket created by JAZZMINE A: Patient disconnected prior to speaking with nurse. No answer upon return call to patient. R: Left voice message for patient to call the office if assistance is still needed. Reason for Disposition Message left on identified voicemail Protocols used: No Contact or Duplicate Contact [id number] [facility] 05-31-2023 Telephone encounter Note Pt states this medication was previously stopped due to side effects, but she has since started splitting the pill and that stopped the groggy feeling, so she would like to refill the med. Medication name: amitriptyline (Elavil) 10 MG tablet Medication dosage: 10 mg (Miligrams Monthly quantity needed: 30 How many day supply requestin days Medication route: oral (PO) Medication administration time(s): bedtime (HS) If taking medication PRN, reason for taking medication: N/A If this is a controlled substance do you receive this or any other controlled medication from any other doctor or facility: N/A Ordering provider: Dr. Hi Date of last office visit: 03/03/23 Date of next office visit: 09/01/23 Date of last refill: (see medication tab): 03/03/23 Updated/Validated preferred pharmacy: [facility] [facility] [place] - [address] Patient instructed to contact the pharmacy prior to picking up the medication: Yes [facility] 05-31-2023 Miscellaneous Notes Pt states this medication was previously stopped due to side effects, but she has since started splitting the pill and that stopped the groggy feeling, so she would like to refill the med. Medication name: amitriptyline (Elavil) 10 MG tablet Medication dosage: 10 mg (Miligrams Monthly quantity needed: 30 How many day supply requestin days Medication route: oral (PO) Medication administration time(s): bedtime (HS) If taking medication PRN, reason for taking medication: N/A If this is a controlled substance do you receive this or any other controlled medication from any other doctor or facility: N/A Ordering provider: Dr. Hi Date of last office visit: 03/03/23 Date of next office visit: 09/01/23 Date of last refill: (see medication tab): 03/03/23 Updated/Validated preferred pharmacy: Yes- [facility] [address] - [place], [place] - [address] Patient instructed to contact the pharmacy prior to picking up the medication: Yes documented in this encounter [facility] 05-26-2023 Miscellaneous Notes Pt calls in wanting to try CBD oil. Pt is in recovery and is in a great deal of pain. Please advise. Nellie Perez LPN documented in this encounter [facility] 05-26-2023 Telephone encounter Note No forms have been seen yet will check on providers desk [facility] 05-26-2023 Miscellaneous Notes No forms have been seen yet will check on providers desk Name of caller: Aissatou Contact phone number: [phone] Relationship to Patient: patient Provider: Dr. Hi Practice: [facility] Chief Complaint/Reason for Call: Pt calling back regarding status of paperwork, advise per previous TE Fax# needed. Pt provided , please advise. Thank you. Best time of day caller can be reached: Any Patient advised that office/PCP has 24-48 business hours to return their call: No Patient read [employer] message with no response. Sent patient a mychart message for the fax number It looks like she is applying for disability. There is no form to fill out, but they need records from June 26, 2022 until now. Please send all our office notes from that time and her labs from February. Records from other doctors need to be sent by them. Name of caller: Aissatou Contact phone number: [phone] Relationship to Patient: patient Provider: Dr Hi Practice: [facility] Chief Complaint/Reason for Call: Patient calling to check the status of the papework sent from Devyn Read. Patient states she is scheduled for a hearing 06/06/23 and the forms have to be returned prior to the hearing. Lorraine is requesting a callback. Please advise, thank you Best time of day caller can be reached: any Patient advised that office/PCP has 24-48 business hours to return their call: Yes documented in this encounter [facility] 05-26-2023 Telephone encounter Note Name of caller: Aissatou Contact phone number: [phone] Relationship to Patient: patient Provider: Dr. Hi Practice: [facility] Chief Complaint/Reason for Call: Pt calling back regarding status of paperwork, advise per previous TE Fax# needed. Pt provided , please advise. Thank you. Best time of day caller can be reached: Any Patient advised that office/PCP has 24-48 business hours to return their call: No [facility] 05-24-2023 Telephone encounter Note Patient read Che[employer]ger message with no response. [facility] 05-24-2023 Miscellaneous Notes Patient calling to request refill of Sumatriptan until [facility] Prior Authorization approved. She is continuing to have migraine headaches. If agree, pended. Juanita Andino, RN documented in this encounter [facility] 05-23-2023 Telephone encounter Note Sent patient a Cheezburger message for the fax number [employer] 05-23-2023 Telephone encounter Note It looks like she is applying for disability. There is no form to fill out, but they need records from June 26, 2022 until now. Please send all our office notes from that time and her labs from February. Records from other doctors need to be sent by them. [employer] 05-22-2023 Telephone encounter Note Name of caller: Aissatou Contact phone number: [phone] Relationship to Patient: patient Provider: Dr Hi Practice: [facility] Chief Complaint/Reason for Call: Patient calling to check the status of the papework sent from Devyn Read. Patient states she is scheduled for a hearing 06/06/23 and the forms have to be returned prior to the hearing. Lorraine is requesting a callback. Please advise, thank you Best time of day caller can be reached: any Patient advised that office/PCP has 24-48 business hours to return their call: Yes [employer] 05-17-2023 Miscellaneous Notes See TE dated 05/16/23. Nellie Perez LPN Prior auth started for patients [facility] script via covermymeds. Await decision. Nellie Perez LPN documented in this encounter [facility] 05-05-2023 Note HNO ID: [id number] Author: Bethany Gil PA-C Service: ? Author Type: Physician Ingot Supervisor Type: Progress Notes Filed: 05/05/2023 1:33 PM Note Text: New Onabotulinum Toxin A (BotoxTM) for Migraine Indication: Chronic Intractable Migraine Treatment #: 1 Referral Expiration: 10/10/2023 Number of moderate-severe migraine days/month: 30 (daily) Number of mild migraine days/month: 0 Number of headache free days/month: 0 (0 headache-free hours) Migraine severity: 02/02 The patient has been assessed for disorders which could contribute to breathing or swallowing difficulty, and there is no contraindication with PREEMPT Botox. There is no documented allergic reaction/hypersensitivity to any botulinum toxin and there is no active infection at proposed injection site. HEADACHE SCORES: ASHKAN - 2/7 SCORES 04/03/2023 ASHKAN-2 Score 3 ASHKAN-7 Score 10 PHQ-9 04/03/2023 Score 16 LMP 04/15/2023 (Exact Date) Patient name: Aissatou Johnson : 1990 ALLERGIES Allergen Reactions Cats Shortness of Breath Ceftriaxone Hives, Unknown Has tolerated augmentin, zosyn, cephalexin, cefazolin. Has received many doses of ceftriaxone in the past. Droperidol Anaphylaxis Laxative Pill GI Upset UNIVERSAL PROTOCOL / SAFETY CHECKLIST Procedure: Onabotulinum toxin A for migraine Informed Consent Consent Obtained: Written [place] Protocol A moment to CARE was completed SIGN IN Personnel directly involved with the procedure wore the appropriate PPE Special Equipment: N/A Patient/Surrogate Stated/Verified: Patient name, Date of , Relevant allergies and Intended procedure TIME OUT Intended patient and procedure match the source document(s) Consent documented and matches the intended procedure No relevant labs, photos, and/or imaging studies were applicable for review. No correct side/site applicable for marking and visibility. No medications required for procedure. No fire risk assessment and interventions applicable. No implant(s) inserted. SIGN OUT No specimen collected. No instruments, equipment or retained foreign bodies applicable. Post-procedure follow-up management communicated and Plan of Care Visit completed when applicable Written Consent Obtained: Written LOT #: [id number] Expiration Date: Month: 3 Year: 2025 Second vial: LOT #: [id number] Expiration Date: Month: 3 Year: 2024 Injection Sites Left (Units) Left (Sites) Right (Units) Right (Sites) TOTAL (Units) Car Lubricator 5 1 5 1 10 Procerus Units: 5 Sites: 1 5 Frontalis 10 2 10 2 20 Temporalis 20 4 20 4 40 Occipitalis 15 3 15 3 30 Cervical PSP 10 2 10 2 20 Trapezius 15 3 15 3 30 Total Units used: 155 Total Units wasted: 45 Prior Therapies Duration of Use Dose Side effect Elavil Imitrex Abilify Zoloft Maxalt Patient presents for her first botox cycle. Patient tolerated procedure well without any complications. Currently taking elavil and supplements for preventative and imitrex for abortive. Notes that Imitrex and Maxalt are no longer effective for abortive relief. Will try Nurtec 75mg as needed, should she respond well to this may consider Nurtec as a preventative. Patient to follow up in three months for repeat botox administration. Bethany Gil PA-C [facility] 05-01-2023 Note HNO ID: [id number] Author: Aneta Castillo MD Service: ? Author Type: Physician Type: Progress Notes Filed: 05/01/2023 3:59 PM Note Text: . Respiratory [place] Note Patient name: Aissatou Johnson PCP: Solomon Hi DO CC: breathing issues HPI: Aissatou Johnson 32 year old female former smoker and vaping with PMH significant for polysubstance abuse, asthma, HTN, Hodgkin's lymphoma s/p chemoradiation, Vater syndrome, hypothyroidism, bipoolar disorder recently seen for evaluation of her asthma. PFTs showed moderately severe partially reversible obstruction. Chest CT without evidence of fibrosis but incidental note of small lung nodule. Started Advair 500/50, prednisone course and as needed albuterol. Allergen panel positive for dust mites, dogs, cats and grasses so discussed allergen avoidance and started Singulair as well. Today she present with her mother to review results. Having persistent issues with SOB and tightness in her throat. Worsening frequency of her migraines headaches. She has not started on her new regimen so I cannot jhon response. She continues to complain of tightness in her throat without hoarseness. Has history of GERD but no current symptoms. DATA: Labs: Component Ref Range AND Units 12 d ago [place] IgE <0.35 kU/l <0.35 [place] Class Class 0 Class 0 [place] Grass IgE <0.35 kU/l 3.39 High Constantin Grass Class Class 0 Class 2 Abnormal Viri Grass IgE <0.35 kU/l 5.37 High Viri Grass Class Class 0 Class 3 Abnormal Short Ragweed IgE <0.35 kU/l <0.35 Short Ragweed Class Class 0 Class 0 [place] IgE <0.35 kU/l <0.35 [place] Class Class 0 Class 0 Cat Dander IgE <0.35 kU/l 0.73 High Cat Dander Class Class 0 Class 2 Abnormal Dog Dander IgE <0.35 kU/l 8.82 High Dog Dander Class Class 0 Class 3 Abnormal Cladosporium herbarum IgE <0.35 kU/l <0.35 Cladosporium herbarum Class Class 0 Class 0 Alternaria tenuis IgE <0.35 kU/l <0.35 Alternaria tenuis Class Class 0 Class 0 Dermatophagoides Farinae IgE <0.35 kU/l 8.45 High Dermatophagoides Farinae Class Class 0 Class 3 Abnormal Imaging / Diagnostic Studies: DATE OF EXAM: Apr 20 2023 1:21PM [facility] 0541 - CT CHEST WO IVCON / Comparison: This study is correlated with patient's CT abdomen pelvis on 03/22/2022. RESULT: Limitations: None. Lines, tubes, and devices: None. Lung parenchyma and airways: The central airways are patent. There is a 4.5 mm solid nodule in the right lower lobe, series 6.11. No mass lesions seen. Mild left apical scarring noted; the lungs are otherwise clear. Pleural space: No pleural effusion or pneumothorax. No pleural thickening. Lower neck, lymph nodes, and mediastinum: The imaged thyroid gland is normal. No lymphadenopathy in the supraclavicular, axillary, mediastinal, or hilar regions. A few calcified lymph nodes seen in the upper mediastinum. Heart, pericardium, and thoracic vessels: The thoracic aorta and main pulmonary artery are normal in caliber. The cardiac chambers are normal in size. No coronary artery atherosclerotic calcifications are noted, although the study is not optimized for coronary assessment. No pericardial effusion or thickening. Bones and soft tissues: No destructive bone lesion. Chest wall is unremarkable. Upper abdomen: Limited study through the upper abdomen demonstrates enlargement of the left kidney, with a few low-attenuation areas; overall findings similar to prior study. No right-sided kidney seen in the right upper quadrant abdomen/retroperitoneum. IMPRESSION: No CT evidence of acute abnormality.4.5 mm right lung nodule. I personally reviewed the images as well as with the patient and her mother and agree with the above assessment PAST MEDICAL HISTORY Diagnosis Date Alcohol abuse polysubstance abuse. 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 loss in left ear Depression 10/12/2011 Headache High blood pressure per patient - associated with breathing History of delivery Hodgkin's disease 2008 S/p chemo/radiation Hypothyroidism Solitary kidney, congenital pt born with single kidney ALLERGIES Allergen Reactions Cats Shortness of Breath Ceftriaxone Hives, Unknown Has tolerated augmentin, zosyn, cephalexin, cefazolin. Has received many doses of ceftriaxone in the past. Droperidol Anaphylaxis Laxative Pill GI Upset etonogestrel (NEXPLANON) subdermal implant 68 mg 1 Each by SUBDERMAL route as directed. fluticasone-salmeterol (ADVAIR DISKUS) 500-50 mcg/dose dsdv Inhale 1 Puff as instructed two times a day. RINSE AND GARGLE MOUTH WITH WATER AFTER EACH USE. montelukast (SINGULAIR) 10 mg tablet Take 1 tablet by mouth daily at bedtime. predniSONE (DELTASONE) 20 mg tablet Take two daily for 5 days. SUMAtri (more content not included)... [facility] 04-21-2023 Miscellaneous Notes Spoke with patient directly regarding results of her chest CT. She has no evidence of fibrosis from her previous mantle radiation but incidental note of a 4 mm nodule right lower lobe nodule. Patient is very anxious due to her past history of cancer. Assured her that this likely represents granulomatous disease and would recommend repeat CT of the chest in 1 year. documented in this encounter [facility] 04-20-2023 Miscellaneous Notes Images from the original note were not included. Aneta Castillo MD Sent in Advair script instead Received PA request from Jeaneth Buckner for Albino Durham. Covered products : Advair AnoroEllipta Dulera Stiolto Respimat Please review and advise. Eleonora Paul MA documented in this encounter [facility] 04-20-2023 Note HNO ID: [id number] Author: Dalia Rdz RT(R) Service: ? Author Type: Information Security Type: Progress Notes Filed: 04/20/2023 1:51 PM Note Text: Radiology Service Progress Note PATIENT NAME: Aissatou Johnson DATE OF SERVICE: April 20, 2023 TIME: 1:51 PM PATIENT IDENTITY VERIFICATION COMPLETED USING TWO (2) IDENTIFIERS: Name and Date of confirmed by patient verbally. FALL SCREENING: Has the patient had 2 falls in the last year or 1 fall with injury or currently using an Ambulatory Assistive Device (Walker, Cane, Wheelchair, Crutches, etc.)? No PATIENT GENDER DATA: Female. status: : No status: NO. PATIENT RELEVANT IMPLANT DATA REVIEWED: Yes RADIOLOGY DEPARTMENT: CT; Exam(s) Completed: Chest PERIPHERAL IV DATA: Not applicable SIGNED BY: RT Kellie(R) April 20, 2023 1:51 PM [facility] 04-20-2023 History of Present illness Narrative Radiology Service Progress Note PATIENT NAME: Aissatou Johnson DATE OF SERVICE: April 20, 2023 TIME: 1:51 PM PATIENT IDENTITY VERIFICATION COMPLETED USING TWO (2) IDENTIFIERS: Name and Date of confirmed by patient verbally. FALL SCREENING: Has the patient had 2 falls in the last year or 1 fall with injury or currently using an Ambulatory Assistive Device (Walker, Cane, Wheelchair, Crutches, etc.)? No PATIENT GENDER DATA: Female. status: : No status: NO. PATIENT RELEVANT IMPLANT DATA REVIEWED: Yes RADIOLOGY DEPARTMENT: CT; Exam(s) Completed: Chest PERIPHERAL IV DATA: Not applicable SIGNED BY: RT Kellie(R) April 20, 2023 1:51 PM documented in this encounter [facility] 04-20-2023 Note HNO ID: [id number] Author: Mabel Oshea APRN.CNM Service: ? Author Type: Plasma Table Operator Type: Progress Notes Filed: 04/20/2023 11:11 AM Note Text: Aissatou is a 32 year old who presents for Nexplanon removal for scheduled 3 year removal. UNIVERSAL PROTOCOL / SAFETY CHECKLIST Procedure to be Performed: Nexplanon Removal and Reinsertion Sign In: A Moment of CARE was completed. Personnel directly involved with the procedure wore the appropriate PPE (Personal Protective Equipment). Patient/Surrogate Stated/Verified: PATIENT VERIFIED(optional for EMERGENT procedures): Patient name, Date of , Relevant allergies, and The intended procedure Time Out Communication: Intended patient and procedure match the source documents. Consent documented and matches the intended procedure. Sign Out: SIGN OUT (optional for EMERGENT procedures): All instruments, equipment, possible retained foreign bodies accounted for. TECHNIQUE: Patient placed in supine position with left arm bent at the elbow and placed over the head. Skin cleansed with betadine. 1mL of 1% lidocaine with epi injected subQ along insertion site. Scalpel used to made a 5mm stab incision superficially at distal end of Nexplanon. Device removed under sterile technique with a small hemostat. Sterile pressure dressing applied. AANDP: 32 year old here for Nexplanon removal Nexplanon removed intact without difficulty. The patient was instructed to remove the dressing after 24 hours. Aissatou is a 32 year old patient who presents for Nexplanon insertion. Patient's last menstrual period was 04/15/2023 (exact date). VITALS: BP 110/66 Wt 140 lb 6.4 oz (63.7kg) LMP 04/15/2023 test: negative Nexplanon lot #: [id number] Exp date: 10/03/2024 TECHNIQUE: Patient placed in supine position with left) bent at the elbow and placed over the head. Skin cleansed with betadine. 1mL of 1% lidocaine with 1:100,000 epi injected subQ along insertion site. Nexplanon audrey inserted under sterile technique. After insertion by the provider, the audrey was palpable under the skin by both patient and provider. Steristrips and sterile pressure dressing applied. AANDP: Nexplanon inserted without complications. The patient was instructed to remove the dressing after 24 hours. Follow up in for annual. Regla Nation APRN.WILLIAM Oshea APRN.[facility] 04-19-2023 Note HNO ID: [id number] Author: Aneta Castillo MD Service: ? Author Type: Physician Type: Progress Notes Filed: 04/19/2023 10:46 AM Note Text: . Respiratory Machias Note Patient name: Aissatou Johnson PCP: Solomon Hi DO, DO Referring Physician: Same Consultation requested by Dr. Hi for an opinion regarding asthma. My final recommendations will be communicated back to the requesting physician by way of shared Medical record or letter to requesting physician via [place] mail. CC: SOB/asthma HPI: Aissatou Johnson 32 year old female former cigarette smoker and vaping with PMH significant for polysubstance abuse (in recovery, no IV drugs), asthma, HTN, Hodgkin's lymphoma s/p chemoradiation 2008 (Mantle radiation), Vater syndrome (congenital single kidney, VSD), radiation induced hypothyroidism, bipolar 1 being referred for SOB in face of asthma. Diagnosed with asthma at the time of her Hodgkin's diagnosis. Previously on as needed albuterol. Several months ago noted SOB. States she has tightness in her neck and chest. Feels like she is unable to get a deep breath and at times feels like she is smothering. No relief with albuterol. Has been on Symbicort for approximately one month without any relief. Only wheezes when she is very active. No chronic cough or chest pain. Outside PFTs show moderately severe obstruction that improves with bronchodilator. Nocturnal awakenings on most night. Afraid she is not going to wake up. No hoarseness or stridor. She is allergic to cats and denies any new environmental changes. She has had COVID three times, last infection approximately 7 months ago. ASTHMA CONTROL TEST Date: 04/19/2023 In the last 4 weeks, how much of the time did your asthma keep you from getting as much done at work or home that you wanted to do? All of the time (1) In the last 4 weeks, how often have you had shortness of breath? More than once per day (1) In the last 4 weeks, how often did your asthma symptoms (wheezing, coughing, shortness of breath, chest tightness or pain) wake you up at night or earlier than usual? 4 or more nights per week (1) In the last 4 weeks, how often have you used your rescue inhaler or nebulizer medication (such as Albuterol, Proventil, Ventolin, Maxair, Xoponex, or Primatene Mist)? 3 or more times per day (1) In the last 4 weeks, how would you rate your asthma control? Not controlled at all (1) Total: less than 15 DATA: PFT [facility] 11/18/2022: FVC 3.19 L 71% postbronchodilator 3.38 L 6% change FEV1 1.89 L 51% postbronchodilator 2.64 L 40% change FEV1/FVC 59% TLC 4.60 L 75% RV 1.55 L 109% RV/TLC 34% ERV 1.08 m 67% DLCO 18.87 76% Review of PFT show mild restriction and moderately severe partially reversible obstruction Labs: Review of past CBC with diff. No eosinophilia Imaging / Diagnostic Studies: DATE OF EXAM: Oct 21 2022 12:39PM [facility] 5290 - XR CHEST 1V FRONTAL / PROCEDURE REASON: Chest pain, nonspecific RESULT: Lines, tubes, and devices: None. Lungs and pleura: No consolidation. No lung mass. No pleural effusion. Cardiomediastinal silhouette: Normal cardiomediastinal silhouette. Other: No bony abnormalities. IMPRESSION: No acute radiographic abnormality. I personally reviewed the images which shows increased perihilar and basilar interstitial markings, R > L Recent Echo EF 55%, normal RV size and function PAST MEDICAL HISTORY Diagnosis Date Alcohol abuse polysubstance abuse. 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 loss in left ear Depression 10/12/2011 Headache High blood pressure per patient - associated with breathing History of delivery Hodgkin's disease 2008 S/p chemo/radiation Hypothyroidism Solitary kidney, congenital pt born with single kidney ALLERGIES Allergen Reactions Cats Shortness of Breath Ceftriaxone Hives, Unknown Has tolerated augmentin, zosyn, cephalexin, cefazolin. Has received many doses of ceftriaxone in the past. Droperidol Anaphylaxis Laxative Pill GI Upset SUMAtriptan (IMITREX) 100 mg tablet Take 1 tablet (100 mg) by mouth as needed for migraine headache (see administration instructions). May repeat dose after 2 hours if needed. Maximum daily dose is 200 mg per day. No more than 10 doses in a month. budesonide/formoterol fumarate (SYMBICORT INHALATION) Inhale as instructed. amitriptyline (ELAVIL) 10 mg tablet Take 10 mg by mouth daily at bedtime. valACYclovir (VALTREX) 1 gram Take 1 tablet by mouth once daily. VITAMIN D-3 50 mcg (2,000 unit) cap Take 1 capsule by mouth once daily. levothyroxine (SYNTHROID) 150 mcg tablet Take 1 tablet by mouth once daily. etonogestrel (NEXPLANON) subdermal implant 68 mg 1 Each by SUBDERMAL route as directed. VITAMIN B-12 500 mcg tab tab(s) Take 1 tabl (more content not included)... [facility] 04-19-2023 History of Present illness Narrative Images from the original note were not included. . Respiratory Machias Note Patient name: Aissatou Johnson PCP: Solomon Hi, , DO Referring Physician: Same Consultation requested by Dr. Hi for an opinion regarding asthma. My final recommendations will be communicated back to the requesting physician by way of shared Medical record or letter to requesting physician via [place] mail. CC: SOB/asthma HPI: Aissatou Johnson 32 year old female former cigarette smoker and vaping with PMH significant for polysubstance abuse (in recovery, no IV drugs), asthma, HTN, Hodgkin's lymphoma s/p chemoradiation 2008 (Mantle radiation), Vater syndrome (congenital single kidney, VSD), radiation induced hypothyroidism, bipolar 1 being referred for SOB in face of asthma. Diagnosed with asthma at the time of her Hodgkin's diagnosis. Previously on as needed albuterol. Several months ago noted SOB. States she has tightness in her neck and chest. Feels like she is unable to get a deep breath and at times feels like she is smothering. No relief with albuterol. Has been on Symbicort for approximately one month without any relief. Only wheezes when she is very active. No chronic cough or chest pain. Outside PFTs show moderately severe obstruction that improves with bronchodilator. Nocturnal awakenings on most night. Afraid she is not going to wake up. No hoarseness or stridor. She is allergic to cats and denies any new environmental changes. She has had COVID three times, last infection approximately 7 months ago. ASTHMA CONTROL TEST Date: 04/19/2023 In the last 4 weeks, how much of the time did your asthma keep you from getting as much done at work or home that you wanted to do? All of the time (1) In the last 4 weeks, how often have you had shortness of breath? More than once per day (1) In the last 4 weeks, how often did your asthma symptoms (wheezing, coughing, shortness of breath, chest tightness or pain) wake you up at night or earlier than usual? 4 or more nights per week (1) In the last 4 weeks, how often have you used your rescue inhaler or nebulizer medication (such as Albuterol, Proventil, Ventolin, Maxair, Xoponex, or Primatene Mist)? 3 or more times per day (1) In the last 4 weeks, how would you rate your asthma control? Not controlled at all (1) Total: less than 15 DATA: PFT [facility] 11/18/2022: FVC 3.19 L 71% postbronchodilator 3.38 L 6% change FEV1 1.89 L 51% postbronchodilator 2.64 L 40% change FEV1/FVC 59% TLC 4.60 L 75% RV 1.55 L 109% RV/TLC 34% ERV 1.08 m 67% DLCO 18.87 76% Review of PFT show mild restriction and moderately severe partially reversible obstruction Labs: Review of past CBC with diff. No eosinophilia Imaging / Diagnostic Studies: DATE OF EXAM: Oct 21 2022 12:39PM [facility] 5290 - XR CHEST 1V FRONTAL / PROCEDURE REASON: Chest pain, nonspecific RESULT: Lines, tubes, and devices: None. Lungs and pleura: No consolidation. No lung mass. No pleural effusion. Cardiomediastinal silhouette: Normal cardiomediastinal silhouette. Other: No bony abnormalities. IMPRESSION: No acute radiographic abnormality. I personally reviewed the images which shows increased perihilar and basilar interstitial markings, R > L Recent Echo EF 55%, normal RV size and function PAST MEDICAL HISTORY Diagnosis Date Alcohol abuse polysubstance abuse. 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 loss in left ear Depression 10/12/2011 Headache High blood pressure per patient - associated with breathing History of delivery Hodgkin's disease 2008 S/p chemo/radiation Hypothyroidism Solitary kidney, congenital pt born with single kidney ALLERGIES Allergen Reactions Cats Shortness of Breath Ceftriaxone Hives, Unknown Has tolerated augmentin, zosyn, cephalexin, cefazolin. Has received many doses of ceftriaxone in the past. Droperidol Anaphylaxis Laxative Pill GI Upset SUMAtriptan (IMITREX) 100 mg tablet Take 1 tablet (100 mg) by mouth as needed for migraine headache (see administration instructions). May repeat dose after 2 hours if needed. Maximum daily dose is 200 mg per day. No more than 10 doses in a month. budesonide/formoterol fumarate (SYMBICORT INHALATION) Inhale as instructed. amitriptyline (ELAVIL) 10 mg tablet Take 10 mg by mouth daily at bedtime. valACYclovir (VALTREX) 1 gram Take 1 tablet by mouth once daily. VITAMIN D-3 50 mcg (2,000 unit) cap Take 1 capsule by mouth once daily. levothyroxine (SYNTHROID) 150 mcg tablet Take 1 tablet by mouth once daily. etonogestrel (NEXPLANON) subdermal implant 68 mg 1 Each by SUBDERMAL route as directed. VITAMIN B-12 500 mcg tab tab(s) Take 1 tablet by mouth once daily. fluticasone-vilanterol (BREO ELLIPTA) 200-25 mcg/dose inhaler Inhale 1 Inhalation as instructed once daily. predniSONE (DELTASONE) 20 mg tablet Take two daily for 5 days. losartan (COZAAR) 25 mg tablet Take 1 tablet by mouth once daily. calcium carbonate (TUMS 500 ORAL) Take 500 mg by mouth as needed (upset stomach). ALBUTEROL SULFATE HFA INHALATION Inhale 2 Puffs as instructed every 6 hours as needed. uses PRN for asthma. Pt. unsure of dose (Patient not taking: Reported on 02/10/2021 ) Social History Tobacco Use Smoking status: Former Packs/day: 0.50 Years: 0.70 Additional pack years: 0.00 Total pack years: 0.35 Types: Cigarettes Smokeless tobacco: Never Vaping Use Vaping Use: Former Substances: Nicotine, Flavoring Substance Use Topics Alcohol use: Not Currently Alcohol/week: 0.8 standard drinks of alcohol Types: 1 Cans of beer per week Drug use: Not Currently Comment: used heroin, crack, marijuana, meth in past. Last used heroin and crack November 12, 2021 Pets: dog No occupational exposures FAMILY HISTORY Problem Relation Age of Onset Hypertension Mother other (depresssion) Mother No Known Problems Father Lung Cancer Maternal Grandfather other (ulcerative colitis) Paternal Grandmother Diabetes Maternal Aunt PAST SURGICAL HISTORY Procedure Laterality Date SECTION HX 02/24/2016 HERPES 1 & 2, IGB+ 2011 PAST SURGICAL HISTORY OF kidney surgery PAST SURGICAL HISTORY OF rectal PAST SURGICAL HISTORY OF 06/09/2009 Left Supraclavicular Lymphnode Excision VSD CLOSURE PMH, Social history, family history and surgical history reviewed and updated in EMR REVIEW OF SYSTEMS: CONSTITUTIONAL: No fevers, chills, nightsweats, unintended weight loss HEENT: Denies nasal congestion/sinus symptoms, allergy problems. Headaches EYES: No diplopia or blurry vision. CARDIOVASCULAR: No chest pain, palpitations, orthopnea, PND, edema. PULM: See HPI GI: No dysphagia/odynophagia, problematic reflux, constipation, diarrhea, changes in stool habits. : No urinary complaints, including dysuria, gross hematuria or pyuria. NEURO: No new balance problems, peripheral weakness/paresthesias or numbness of concern. MUSC-SKEL: No joint pain, swelling, or erythema. PSY: Anxiety and depression. H/o substance abuse INTEGUMENTARY: No skin sensitivity or h/o eczema. Last spring had an unusual diffuse papular, non pruritic rash (resolved spontaneously) PHYSICAL EXAMINATION: BP 110/90 Pulse 86 Resp 16 Ht 5' 9 (1.75m) Wt 142 lb 6.4 oz (64.6kg) SpO2 93% LMP 04/15/2023 BMI 21.02 kg/(m^2). General Appearance: Age-appropriate female, NAD. Skin: Skin color, texture, turgor normal, no suspicious rashes or lesions. Head: Normocephalic, no masses, lesions, tenderness or abnormalities. Eyes: Sclera, conjunctiva normal. Oropharynx: Adequate dentition, no oral lesions or erythema. Neck: No JVD, no thyromegaly, no masses. Chest wall: Normal configuration Lungs: Not labored, normal to percussion, no wheezes or crackles. Heart: Regular rate and rhythm, no murmurs or gallops. Extremities: No edema, no clubbing, no nailbed changes. Musculoskeletal: No joint deformities or effusions. Lymph Nodes: No cervical lymphadenopathy and No supraclavicular lymphadenopathy. Assessment/Plan: 1. Severe persistent asthma, uncomplicated -Not controlled. May have been triggered by her last COVID infection. Need to exclude allergen exposure -Changed inhaled therapy to Breo Ellipta and continue albuterol as needed -Oral course of steroids 2. Interstitial lung disease -Review of chest imaging shows increased perihilar and lower lobe interstitial markings R > L could be post radiation changes -Chest CT 3. Non-Hodgkin's lymphoma, multiple regions -Should have oncology follow-up Aneta Castillo MD Respiratory Machias documented in this encounter [facility] 04-11-2023 Note HNO ID: [id number] Author: Janet Neves RT(R) Service: ? Author Type: Technologist Type: Progress Notes Filed: 04/11/2023 8:20 AM Note Text: Radiology Service Progress Note PATIENT NAME: Aissatou Johnson DATE OF SERVICE: April 11, 2023 TIME: 8:20 AM PATIENT IDENTITY VERIFICATION COMPLETED USING TWO (2) IDENTIFIERS: Name and Date of confirmed by patient verbally. FALL SCREENING: Has the patient had 2 falls in the last year or 1 fall with injury or currently using an Ambulatory Assistive Device (Walker, Cane, Wheelchair, Crutches, etc.)? No PATIENT GENDER DATA: Female. status: : No status: NO. PATIENT RELEVANT IMPLANT DATA REVIEWED: Yes RADIOLOGY DEPARTMENT: MR; Exam(s) Completed: Head: Routine Brain PERIPHERAL IV DATA: Not applicable SIGNED BY: RT Brenda(R) April 11, 2023 8:20 AM [facility] 04-11-2023 History of Present illness Narrative Radiology Service Progress Note PATIENT NAME: Aissatou Johnson DATE OF SERVICE: April 11, 2023 TIME: 8:20 AM PATIENT IDENTITY VERIFICATION COMPLETED USING TWO (2) IDENTIFIERS: Name and Date of confirmed by patient verbally. FALL SCREENING: Has the patient had 2 falls in the last year or 1 fall with injury or currently using an Ambulatory Assistive Device (Walker, Cane, Wheelchair, Crutches, etc.)? No PATIENT GENDER DATA: Female. status: : No status: NO. PATIENT RELEVANT IMPLANT DATA REVIEWED: Yes RADIOLOGY DEPARTMENT: MR; Exam(s) Completed: Head: Routine Brain PERIPHERAL IV DATA: Not applicable SIGNED BY: RT Brenda(R) April 11, 2023 8:20 AM documented in this encounter [facility] 04-10-2023 Note HNO ID: [id number] Author: Mayuri Rico LPCC Service: ? Author Type: Therapist Type: Progress Notes Filed: 04/10/2023 8:48 AM Note Text: Behavioral Health Social Work Progress Note Patient identified for [facility] from: PCP Reason for referral: Resources Behavioral Health Resources: Psychology - talk therapy, Psychiatry med management [facility] encounter type: MyChart Message Attempts to Outreach: 3 attempts Referral made: Psychiatry - Internal, Psychiatry - External, Psychology - Internal, Psychology - External Psychiatry-Internal referral type: Medication Management Psychology-Internal referral type: Therapy Psychology-External referral type: Therapy Psychiatry-External referral type: Medication Management Reason for external referral: Wait times at [facility] too long, Patient choice Final Disposition: Resources given Patient Discharged?: Yes Patient reported that caregiver was able to meet their needs today?: N/A therapist sent patient MyChart follow up message offering assistance with linkage to behavioral health services. Mayuri Rico, LORI-S April 10, 2023 [facility] 04-06-2023 Miscellaneous Notes New Botox referral submitted to pharmacy. ELLEN Dyer, RN documented in this encounter [facility] 04-05-2023 Note Pt sent my chart rusty brown regarding referral. [facility] 04-05-2023 Note HNO ID: [id number] Author: Bethany Gil PA-C Service: ? Author Type: Physician Ingot Supervisor Type: Progress Notes Filed: 04/05/2023 8:40 AM Note Text: Neurology Outpatient Clinic Date: April 05, 2023 Patient Name: Aissatou Johnson Referring physician: No referring provider defined for this encounter. Primary physician: Solomon Hi DO [address] [place] [id number] Reason for Evaluation: Headaches Subjective HPI Aissatou Johnson is a 32 year old right-handed female who presents for evaluation of headaches. Dr. Solomon Hi DO, DO is the PCP. Chart review: Currently on Elavil and imitrex. Has history Neuropathy and orthostatic HOTN, non hodgkin at age 18. Also noted SOB sent to pulmonology. Also has has CKD stage three and hypothyroidism. Outside records through [facility] and not available. Patient presents for evaluation of headache. Patient notes that she has had headaches since she was a child, but they have worsened over the last 3 months or so. Unknown etiology for this acute exacerbation, but states that she is under a lot of stress. Notes that prior to the last 3 months she was having about 1 headache a month that was well relieved with Imitrex. Notes that she is now having a daily headache, headaches typically start in the late evening and last for hours, typically resolved with sleeping but can last multiple days at a time. Notes that she is also getting shortness of breath and palpitations at the time her symptoms worsened and is scheduled to see pulmonology next week. Has not allowed to use NSAIDs due to her history of kidney disease, has 1 functioning kidney she says, last GFR is 36. Notes that she recently started taking Imitrex once daily as it is the only thing that seemed to help her headache. But she believes that taking this often is actually worsening her headaches. Patient also notes over the last year she has had dots in her vision bilaterally that come and go. Not necessarily associated with a headache. Has not seen an eye doctor. Does note that one of her headaches was so bad a few weeks ago that she noticed clear fluid coming out of her right ear, thinks it was water but does not remember showering before this. No metallic taste in her mouth. Of note, patient was diagnosed with Hodgkin's lymphoma age 18, 2 years of chemotherapy and is currently in remission. Current Headache treatment Preventative: Elavil Abortive: Imitrex Medications effective? yes # of doses of abortive medications per month: daily Previous Medications: Elavil Imitrex Abilify Zoloft Headache Description Onset: Child Total headache days per month: daily Total headache attacks per month: daily Headache free days: No Duration of attacks: 4 hours to all day, sometimes a few days Severity of headaches? 8/10 Onset to Peak: gradually Location: neck and left side on the front, sometimes on the right. Aura: None Prodrome:nausea. Accompanying symptoms: photophobia, phonophobia, osmophobia, nausea, vomiting, blurred vision, neck pain. Quality:dull and throbbing. Then squeezing Worse with activity: Yes Triggers: menses, weather changes, exertion/exercise, and caffeine withdrawal. Cough/sneeze/valsalva as trigger: no Positional changes: No Most common time of day for headache to begin:early evening or late evening. Risk Factors Visual-Motion sensitivity: Yes Tobacco Use: No, no vaping for two months Alcohol Use: No Other substances: No Caffeine: Yes, soda once a day Neck Pain /Back Pain: No Fibromyalgia: No History of Motor Vehicle Accident: No History of Traumatic Brain Injury and/or Concussion: No History of severe infection: No History of Syncope: No Obesity: No, Body mass index is 20 Family History Migraine or other headaches in the family: Mother with migraines Aneurysms in a first degree relative: No Brain tumors in the family: No Other neurological illness in the family: no ROS Review of Systems CONSTITUTIONAL: No reported fevers, chills, night sweats, or significant unintentional weight loss. EYES: No visual changes indicated. No eye pain or orbital swelling reported. HEENT: No hearing changes or vertiginous symptoms indicated. Maybe some pressure In the left ear. No history of nose bleeds reported. RESPIRATORY: No reported cough, wheezing and dyspnea. CARDIOVASCULAR: Negative for significant chest pain, and palpitations per report. GI: Negative for significant abdominal discomfort, blood in stools or black stools reported. No recent reported change in bowel habits. : No reported history of incontinence. No dark/cola colored urine reported. MUSCLOSKELETAL: No history of significant joint pain or swelling, or myalgias reported. SKIN: Negative for pertinent lesions, rash, and itching per report. HEMATOLOGY/ONCOLOGY: Ne (more content not included)... [facility] 04-05-2023 Note HNO ID: [id number] Author: Nellie Perez LPN Service: ? Author Type: LICENSED NURSE Type: Progress Notes Filed: 04/05/2023 8:40 AM Note Text: 04/03/2023 PROMIS Global Health Physical Health Summary Physical health: Fair Everyday physical activity, ability: Moderately Fatigue: Severe Pain level: 6 General health: Fair Social activities/roles, ability: Fair Physical Health T-Score 34.9 (Poor) Physical Health Percentile 7 PROMIS Global Health Mental Health Summary Quality of life: Good Mental health (mood,thinking): Good Social satisfaction: Fair Emotional problems (anxious,depressed): Sometimes Mental Health T-Score 41.1 (Good) Mental Health Percentile 19 PHQ-9 Score: 16(Moderately Severe Depression) PHQ-9 Self-Harm: Not at all ASHKAN-7 Score: 10(Moderate Anxiety) PROMIS NEUROQOL COGNITIVE FUNCTION SCORE 04/03/2023 [facility] Neuroqol Cognitive Percentile 16* PROMIS PHYSICAL FUNCTION SCORE 04/03/2023 [facility] Physical Function Percentile 5 PROMIS PAIN INTERFERENCE SCORE 04/03/2023 [facility] Pain Interference Percentile 12 Percentiles provide an indication of how a patient's score ranks in relation to the [place] general population. > 31st percentile is within normal limits or better *< 31st percentile is at least ? SD worse than population, which may be clinically relevant < 16th percentile is at least 1 SD worse than population and warrants attention 04/03/2023 Sleep Apnea Probability Snores loudly: No Tired, fatigued or sleepy in daytime: Yes Stops breathing or choking/gasping during sleep: Yes High blood pressure: Yes Sleep Apnea Probability Score: 8 (Sleep study not recommended) [facility] 04-05-2023 Instructions Bethany Gil PA-C - 04/05/2023 7:58 AM EDT Preventative: Elavil, supplements noted below (will get botox approved) Abortive: Imitrex 100mg with onset of headache (no more than 10 doses a month) MRI of the brain See eye doctor in the next few weeks Sleep study Increase water to 60 ounces a day Follow up in three months Headache Preventive Treatment: Please keep in mind that it takes 4-6 weeks for the medication to start working well and 2-3 months at the appropriate dose before deciding if it will be useful or not. If it is not helping at all by this time, then we will discuss other medications to try. Supplements may take 3-6 months until you see full effect. Natural supplements: Magnesium Oxide 500 mg at bed Coenzyme Q10 300 mg in AM Vitamin B2- 200 mg twice a day Feverfew 50 mg twice a day Vitamins and herbs that show potential Magnesium: Magnesium (250 mg twice a day or 500 mg at bed) has a relaxant effect on smooth muscles such as blood vessels. Individuals suffering from frequent or daily headache usually have low magnesium levels which can be increase with daily supplementation of 400-750 mg. Three trials found 40-90% average headache reduction when used as a preventative. Magnesium also demonstrated the benefit in menstrually related migraine. Magnesium is part of the messenger system in the serotonin cascade and it is a good muscle relaxant. It is also useful for constipation which can be a side effect of other medications used to treat migraine. Good sources include nuts, whole grains, and tomatoes. Magnesium comes in many different forms: Magnesium glycinate is a good choice for those with a sensitive stomach who have gastrointestinal side effects such as diarrhea with other forms of magnesium. It is anecdotally also helpful with anxiety and sleep. Magnesium threonate also has low risk of gastrointestinal side effects and anecdotally helpful with cognitive function and brain fog symptoms. Magnesium malate has low gastrointestinal side effects and is reportedly more energizing and anecdotally often helpful in fibromyalgia and chronic fatigue syndrome. Magnesium citrate is one of the most studied, popular, and well-absorbed forms of magnesium. It can also be mixed easily with liquids if you can't take pills. However, it comes with a higher risk of diarrhea and gastrointestinal side effects, although this could be helpful for those with constipation. Magnesium oxide is also well studied, cheap, and often used for heartburn and indigestion. However, it is not well absorbed and can have some laxative side effects as well, so can also be helpful for constipation. Riboflavin (vitamin B 2) 200 mg twice a day. This vitamin assists nerve cells in the production of ATP a principal energy storing molecule. It is necessary for many chemical reactions in the body. There have been at least 3 clinical trials of riboflavin using 400 mg per day all of which suggested that migraine frequency can be decreased. All 3 trials showed significant improvement in over half of migraine sufferers. The supplement is found in bread, cereal, milk, meat, and poultry. Most Americans get more riboflavin than the recommended daily allowance, however riboflavin deficiency is not necessary for the supplements to help prevent headache. Feverfew: Feverfew is a common garden herb twenty-nine palms to [place] and popular in [place] as a treatment for disorders typically controlled by aspirin. The mechanism of action is unknown but is believed to be related to a chemical called parthenolide which helps the body use serotonin more effectively. Serotonin helps prevent migraine and assists with resolution when it occurs. Parthenolide also inhibits the release of histamine which is linked to pain and inflammation. Consistency of active ingredients in different products can be a problem. Some formulations don't have the active ingredient (parthenolide) that prevents migraine. A parthenolide content of 0.2% is generally recommended. Typical dosage is one capsule 3 times a day. Coenzyme Q10: This is present in almost all cells in the body and is critical component for the conversion of energy. Recent studies have shown that a nutritional supplement of CoQ10 can reduce the frequency of migraine attacks by improving the energy production of cells as with riboflavin. Doses of 150 mg twice a day have been shown to be effective. Melatonin: Increasing evidence shows correlation between melatonin secretion and headache conditions. Melatonin supplementation has decreased headache intensity and duration. It is widely used as a sleep aid. Sleep is natures way of dealing with migraine. A dose of 3 mg is recommended to start for headaches including cluster headache. Higher doses up to 15 mg has been reviewed for use in Cluster headache and have been used. The rationale behind using melatonin for cluster is that many theories regarding the cause of Cluster headache center around the disruption of the normal circadian rhythm in the brain. This helps restore the normal circadian rhythm. Olena: Olena has a small amount of antihistamine and anti-inflammatory action which may help headache. It is primarily used for nausea and may aid in the absorption of other medications. HEADACHE DIET: Foods and beverages which may trigger migraine Note that only 20% of headache patients are food sensitive. You will know if you are food sensitive if you get a headache consistently 20 minutes to 2 hours after eating a certain food. Only cut out a food if it causes headaches, otherwise you might remove foods you enjoy! What matters most for diet is to eat a well balanced healthy diet full of vegetables and low fat protein, and to not miss meals. Chocolate, other sweets ALL cheeses except cottage and cream cheese Dairy products, yogurt, sour cream, ice cream Liver Meat extracts (Bovril, Marmite, meat tenderizers) Meats or fish which have undergone aging, fermenting, pickling or smoking. These include: Hotdogs,salami,Lox,sausage, mortadellas,smoked salmon, pepperoni, Pickled salas Pods of broad valdez (Belarusian beans, Burmese pea pods, Tajik (roel) beans, jones and navy beans Ripe avocado, ripe banana Yeast extracts or active yeast preparations such as Yu's or Natalie's (commercial bakes goods are permitted) Tomato based foods, pizza (lasagna, etc.) MSG (monosodium glutamate) is disguised as many things; look for these common aliases: Monopotassium glutamate Autolysed yeast Hydrolysed protein Sodium caseinate flavorings all natural preservatives Nutrasweet Avoid all other foods that convincingly provoke headaches. Headache Prevention Strategies: 1. Maintain a headache diary; learn to identify and avoid triggers. Common triggers include: Emotional triggers: Emotional/Upset family or friends Emotional/Upset occupation Business reversal/success Anticipation anxiety Crisis-serious Post-crisis periodNew job/position Physical triggers: Vacation Day Weekend Strenuous Exercise High Altitude Location New Move Day Physical Illness Oversleep/Not enough sleep Weather changes Light: Photophobia or light sesnitivity treatment involves a balance between desensitization and reduction in overly strong input. Use dark polarized glasses outside, but not inside. Avoid bright or fluorescent light, but do not dim environment to the point that going into a normally lit room hurts. Consider FL-41 tint lenses, which reduce the most irritating wavelengths without blocking too much light. These can be obtained at [employer] or [employer]: see list above. 2. Limit use of acute treatments (tmwe-ock-vgtrsue medications, triptans, etc.) to no more than 2 days per week or 10 days per month to prevent medication overuse headache (rebound headache). 3. Follow a regular schedule (including weekends and holidays): Don't skip meals. Eat a balanced diet. 8 hours of sleep nightly. Minimize stress. Exercise 30 minutes per day. Being overweight is associated with a 5 times increased risk of chronic migraine. Keep well hydrated and drink 6-8 glasses of water per day. 4. Initiate non-pharmacologic measures at the earliest onset of your headache. Rest and quiet environment. Relax and reduce stress. [id number] is a free paola that can instruct you on some simple relaxtion and breathing techniques. Http://ViperMed is a free website that provides teaching videos on relaxation. Also, there are many apps that can be downloaded for mindful relaxation. An paola called YOGA NIDRA will help walk you through mindfulness. Cold compresses. 5. Don't wait!! Take the maximum allowable dosage of prescribed medication at the first sign of migraine. 6. Compliance: Take prescribed medication regularly as directed and at the first sign of a migraine. 7. Communicate: Call your physician when problems arise, especially if your headaches change, increase in frequency/severity, or become associated with neurological symptoms (weakness, numbness, slurred speech, etc.). 8. Headache/pain management therapies: Consider various complementary methods, including medication, behavioral therapy, psychological counselling, biofeedback, massage therapy, acupuncture, dry needling, and other modalities. Such measures may reduce the need for medications. Counseling for pain management, where patients learn to function and ignore/minimize their pain, seems to work very well. 9. Recommend changing family's attention and focus away from patient's headaches. Instead, emphasize daily activities. If first question of day is 'How are your headaches/Do you have a headache today?', then patient will constantly think about headaches, thus making them worse. Goal is to re-direct attention away from headaches, toward daily activities and other distractions. 10. Helpful Websites: www.AmericanHeadacheSociety.org www.migrainetrust.org www.headaches.org www.migraine.org.uk www.achenet.org 11. HEADACHE EXPECTATIONS: There are many types of headaches, and only a rare few in which complete relief can be expected. In general, there is no cure for headache, especially migraine based headaches. There is nothing available that completely prevents headaches from occurring, breaking through, or having periodic flare-ups and fluctuations. Regardless of what you are using on a daily basis for prevention, episodic headaches should still be expected, and periods where frequency may escalate and fluctuate are unavoidable. There is no quick fix for most headaches. Furthermore, the longer you have had high frequency headaches (such as chronic daily headache), the longer it will likely take to expect any improvement. In fact, some people will never improve, regardless of how many medications or other treatments we try. Our treatment strategy is to evaluate for possible causes of your headache, although testing is usually always normal, even in cases of daily continuous headaches for years. Most types of headache such as migraine are electrical brain disorders (similar to how epilepsy is an electrical brain disorders). Therefore, there is no testing that will reveal this dysfunctional electrical circuitry such on MRI, or other testing. We try to find a medication that may help lessen the frequency and/or severity of your headaches. The goal is not to completely stop them from happening, although if that happens, great! Different people respond to different medications, and some people just don't respond to anything, so it's usually a matter of trying different options. We can not predict if or when exactly you will respond to a treatment that we provide. Preventive headache medications take 4-6 weeks to start working, and 2-3 months to see full effect, assuming you reach an effective dose. Therefore, calling or messaging frequently because you have a headache flare prior to the 3 month kaycee is unlikely to change anything, and unfortunately there is nothing available that will expedite this, so please try to avoid this. Our recommendation will generally be to give it adequate time first. If you are unable to wait it out for medications to work, we can also try IV infusions for some temporary relief. O In general, the best that preventive medications or other treatments (including Botox) are able to offer in migraine management (variable in other headache types) is a 50% improvement in frequency and/or severity of headache. That is our goal, and any additional benefit is considered a bonus. Some people do significantly better than this, others do not get close to this. Therefore, if your headaches are not improving by at least 3 months on your preventive strategy, contact us and we can discuss further adjustments. Keep in mind that complete headache cure is not a realistic expectation. Our Team: The nursing staff, and medical assistants are a major part of YOUR TREATMENT TEAM and will be handling your phone calls, AXS-Onet Messages and inquiries, if any. Unless explicitly told otherwise at the time of your office visit, your study results and ensuing treatment plans will be released via dev9k and discussed during your follow-up appointment. MyChart: Please ask the schedulers to give you an activation code. The main way of communication is by AXS-Onet rather than phone lines, so if you have not signed up, please do so. AXS-Onet is also the way that you can review your labs and testing. We are not able to contact everyone to tell them results are normal. If you do not hear back from us regarding testing you have had, it should be considered normal or within normal range. If you have any questions about the results, you are free to message us. dev9k is meant for simple questions regarding medications, possible side effects, or other simple straight forward questions in limited sentences, rather than multiple paragraphs of discussion. dev9k is not meant for, or efficient for these complex questions, extensive questions, extensive medication adjustments, complex new symptoms or concerns. These issues beyond simple questions require a follow up visit with myself, one of our physician assistants, nurse practitioners, or a Virtual Visit via computer or smart phone, as detailed further down. Refills: Please pay attention to when your refills will need to be renewed. Due to the volume of phone calls daily, this could potentially take a few days, although we certainly try to honor your refill requests as soon as we can. You should call at least 1 week in advance of needing a refill to ensure you do not run out of medication. Keep in mind that refill requests on Fridays may not be filled until the following week. In regards to blood work, testing, and radiology reports these are released automatically to the patients. We do not comment on most testing on [facility] in a message or commentary unless there is a concern. You will not receive a message from me of the result unless there is a specific concern of the result I need you to address further in care with us or your primary medical team. Make sure to check your my chart email or paola. As an international referral center for syncope, autonomic dysfunction, general neurology, headache care, neuromuscular disease, and other related conditions, seeing patients from across the world, we do not have the resource of time or staffing to address inquiries for accommodations. As such, we do not provide or complete requests for work accommodations, FMLA, disability, or other such forms. We recommend seeking guidance through your primary care provider for these requests. We are happy to provide our office notes from your visits and other tests or evaluations performed through our clinic, which can be made available upon request to assist you with this process. documented in this encounter [facility] 04-05-2023 History of Present illness Narrative Images from the original note were not included. Neurology Outpatient Clinic Date: April 05, 2023 Patient Name: Aissatou Johnson Referring physician: No referring provider defined for this encounter. Primary physician: Solomon Hi DO [address] [place] [phone] Reason for Evaluation: Headaches Subjective HPI Aissatou Johnson is a 32 year old right-handed female who presents for evaluation of headaches. Dr. Solomon Hi DO, DO is the PCP. Chart review: Currently on Elavil and imitrex. Has history Neuropathy and orthostatic HOTN, non hodgkin at age 18. Also noted SOB sent to pulmonology. Also has has CKD stage three and hypothyroidism. Outside records through [facility] and not available. Patient presents for evaluation of headache. Patient notes that she has had headaches since she was a child, but they have worsened over the last 3 months or so. Unknown etiology for this acute exacerbation, but states that she is under a lot of stress. Notes that prior to the last 3 months she was having about 1 headache a month that was well relieved with Imitrex. Notes that she is now having a daily headache, headaches typically start in the late evening and last for hours, typically resolved with sleeping but can last multiple days at a time. Notes that she is also getting shortness of breath and palpitations at the time her symptoms worsened and is scheduled to see pulmonology next week. Has not allowed to use NSAIDs due to her history of kidney disease, has 1 functioning kidney she says, last GFR is 36. Notes that she recently started taking Imitrex once daily as it is the only thing that seemed to help her headache. But she believes that taking this often is actually worsening her headaches. Patient also notes over the last year she has had dots in her vision bilaterally that come and go. Not necessarily associated with a headache. Has not seen an eye doctor. Does note that one of her headaches was so bad a few weeks ago that she noticed clear fluid coming out of her right ear, thinks it was water but does not remember showering before this. No metallic taste in her mouth. Of note, patient was diagnosed with Hodgkin's lymphoma age 18, 2 years of chemotherapy and is currently in remission. Current Headache treatment Preventative: Elavil Abortive: Imitrex Medications effective? yes # of doses of abortive medications per month: daily Previous Medications: Elavil Imitrex Abilify Zoloft Headache Description Onset: Child Total headache days per month: daily Total headache attacks per month: daily Headache free days: No Duration of attacks: 4 hours to all day, sometimes a few days Severity of headaches? /10 Onset to Peak: gradually Location: neck and left side on the front, sometimes on the right. Aura: None Prodrome:nausea. Accompanying symptoms: photophobia, phonophobia, osmophobia, nausea, vomiting, blurred vision, neck pain. Quality:dull and throbbing. Then squeezing Worse with activity: Yes Triggers: menses, weather changes, exertion/exercise, and caffeine withdrawal. Cough/sneeze/valsalva as trigger: no Positional changes: No Most common time of day for headache to begin:early evening or late evening. Risk Factors Visual-Motion sensitivity: Yes Tobacco Use: No, no vaping for two months Alcohol Use: No Other substances: No Caffeine: Yes, soda once a day Neck Pain /Back Pain: No Fibromyalgia: No History of Motor Vehicle Accident: No History of Traumatic Brain Injury and/or Concussion: No History of severe infection: No History of Syncope: No Obesity: No, Body mass index is 20 Family History Migraine or other headaches in the family: Mother with migraines Aneurysms in a first degree relative: No Brain tumors in the family: No Other neurological illness in the family: no ROS Review of Systems CONSTITUTIONAL: No reported fevers, chills, night sweats, or significant unintentional weight loss. EYES: No visual changes indicated. No eye pain or orbital swelling reported. HEENT: No hearing changes or vertiginous symptoms indicated. Maybe some pressure In the left ear. No history of nose bleeds reported. RESPIRATORY: No reported cough, wheezing and dyspnea. CARDIOVASCULAR: Negative for significant chest pain, and palpitations per report. GI: Negative for significant abdominal discomfort, blood in stools or black stools reported. No recent reported change in bowel habits. : No reported history of incontinence. No dark/cola colored urine reported. MUSCLOSKELETAL: No history of significant joint pain or swelling, or myalgias reported. SKIN: Negative for pertinent lesions, rash, and itching per report. HEMATOLOGY/ONCOLOGY: Negative for reported prolonged bleeding, bruising easily, and swollen nodes. ENDOCRINE: Negative for reported significant cold or heat intolerance, no reported goitrous neck swelling or polydipsia PSYCH: Does have some depression and anxiety, is seeing a psychiatrist. No reported SI or HI. NEURO: Per HPI above. Sleep: Normal, sleeps 8-9 hours, Mood: anxious, Energy: Low, Stress: High Medications: Current Outpatient Medications Medication Sig Dispense Refill ALBUTEROL SULFATE HFA INHALATION Inhale 2 Puffs as instructed every 6 hours as needed. uses PRN for asthma. Pt. unsure of dose (Patient not taking: Reported on 02/10/2021 ) amitriptyline (ELAVIL) 10 mg tablet Take 10 mg by mouth daily at bedtime. budesonide/formoterol fumarate (SYMBICORT INHALATION) Inhale as instructed. calcium carbonate (TUMS 500 ORAL) Take 500 mg by mouth as needed (upset stomach). (Patient not taking: Reported on 04/03/2023) etonogestrel (NEXPLANON) subdermal implant 68 mg 1 Each by SUBDERMAL route as directed. 1 Each 0 levothyroxine (SYNTHROID) 150 mcg tablet Take 1 tablet by mouth once daily. losartan (COZAAR) 25 mg tablet Take 1 tablet by mouth once daily. SUMAtriptan (IMITREX) 100 mg tablet Take 1 tablet (100 mg) by mouth as needed for migraine headache (see administration instructions). May repeat dose after 2 hours if needed. Maximum daily dose is 200 mg per day. No more than 10 doses in a month. 10 tablet 2 valACYclovir (VALTREX) 1 gram Take 1 tablet by mouth once daily. 30 tablet 0 VITAMIN B-12 500 mcg tab tab(s) VITAMIN D-3 50 mcg (2,000 unit) cap Take 1 capsule by mouth once daily. No current facility-administered medications for this visit. ROS: Her ROS was positive for that mentioned in the HPI. Otherwise a 10-point ROS was completed and was negative. ALLERGIES Allergen Reactions Cats Shortness of Breath Ceftriaxone Hives, Unknown Has tolerated augmentin, zosyn, cephalexin, cefazolin. Has received many doses of ceftriaxone in the past. Droperidol Anaphylaxis Laxative Pill GI Upset Past Medical History: PAST MEDICAL HISTORY Diagnosis Date Alcohol abuse polysubstance abuse Anemia Asthma Bipolar 1 disorder (HCC) Chronic hepatitis C (HCC) Decreased hearing 85 % hearing loss in left ear Depression 10/12/2011 Headache High blood pressure per patient - associated with breathing History of delivery Hodgkin's disease 2008 S/p chemo/radiation Hypothyroidism Solitary kidney, congenital pt born with single kidney Family History: FAMILY HISTORY Problem Relation Age of Onset Hypertension Mother other (depresssion) Mother No Known Problems Father Cancer Maternal Grandfather other (ulcerative colitis) Paternal Grandmother Diabetes Maternal Aunt Also includes: . Social History: Social History Tobacco Use Smoking status: Former Packs/day: 0.50 Years: 0.70 Additional pack years: 0.00 Total pack years: 0.35 Types: Cigarettes Smokeless tobacco: Never Vaping Use Vaping Use: Former Substances: Nicotine, Flavoring Substance Use Topics Alcohol use: No Alcohol/week: 0.8 standard drinks of alcohol Types: 1 Cans of beer per week Drug use: No Comment: used heroin, crack, marijuana, meth in past. Last used heroin and crack Apr 2018 Currently not working, college in a week Objective 04/05/23 0728 BP: 118/77 Pulse: 77 Resp: 16 SpO2: 97% Weight: 63.8 kg (140 lb 9.6 oz) Physical Examination General Appearance: Well appearing, alert, in no acute distress, well-hydrated, well nourished. Head: Normocephalic Pulm: Breathing comfortably Neck: Supple Psych: Cooperative, appropriate affect Neurological Examination: Mental Status: Alert and Oriented to Place, Person, Time and Situation and Patient follows commands.. Language: Is intact to Comprehension, Fluency and Repetition Cranial Nerves: CNII: Visual acuity normal, visual arauz full to confrontation CNIII, IV, : Pupils equal, round and reactive to light, full extraoccular movements, with sustained nystagmus with rightward gaze CN V: Facial sensation intact bilaterally to fine touch CN VII: Facial muscles symmetric and strong CN VIII: Hears finger rub well bilaterally CN IX: Gag Reflex not examined CN X: Palate elevates symmetrically CN XI: Full strength shoulder shrug bilaterally CN XII: Tongue protrusion full and midline Non-Dilated Fundiscopic Examination: No papilledema Motor Exam: Tone - Normal Tone noted in all extremities Bulk - Normal bulk noted in all muscles tested. Inspection - Normal, no fasciculations or tremors noted. Power: MUSCLES Upper Extremity RIGHT LEFT Deltoid 5/5 5/5 Biceps 5/5 5/5 Triceps 5/5 5/5 Wrist Extension 5/5 5/5 Wrist Flexion 5/5 5/5 Finger Flexion 5/5 5/5 Finger Extension 5/5 5/5 Finger Abd 5/5 5/5 Finger Add 5/5 5/5 MUSCLES Lower Extremity RIGHT LEFT Hip Flexion 5/5 5/5 Hip Extension 5/5 5/5 BiFem (Knee Flex) 5/5 5/5 Quads (Knee Ext) 5/5 5/5 Gastroc (Plantflx) 5/5 5/5 TibAnt (Dorsiflx) 5/5 5/5 FlxHLong (Toe Flex) 5/5 5/5 ExtHLong (Toe Ext) 5/5 5/5 Sensory Examination Sensation is intact to light touch throughout. Negative extinction to double simultaneous stimulation Reflexes: 1/2 throughout, negative Apollo bilaterally Coordination: finger-to- nose-finger intact bilaterally and [id number] intact bilaterally. Gait: Patient's gait is normal, can heel and toe walk and can tandem walk Romberg: Negative DATA REVIEWED Actual films/image/tracing reviewed and summarized as follows: None Old records reviewed and summarized as follows: Primary care, [facility] records are limited Assessment/Plan Assessment & Plan: Aissatou Johnson is a 32 year old right-handed female with a history of Hodgkin's lymphoma, substance use disorder (currently in remission), asthma, tobacco use disorder, chronic hepatitis, chronic kidney disease with recent GFR of 36, bipolar 1. Her examination demonstrates sustained forward nystagmus with horizontal gaze. Patient with near lifelong history of headaches, acutely worsening 3 months ago and is now having daily headaches. Headaches are migrainous in nature and last anywhere from all day to 2 days. Has been using Imitrex with good relief, but notes the headaches come back the next day. Notes that her headaches are triggered by minimal activity but not with Valsalva or position change. Typically begin at the end of the day, no autonomic features with this. Unclear etiology to her acute worsening, perhaps it was stress but is unsure. Notes that she is currently in recovery from substance use disorder and is not currently using, has history of heroin and crack cocaine use. Patient likely suffering from exacerbation of migraines, but due to patient's history of lymphoma, new daily persistent headache presentation, and sustained rightward nystagmus on exam, will obtain MRI of the brain. We will obtain without contrast due to patient's kidney disease. Regarding treatment of patient's headaches, patient is currently taking Elavil, but states that she only takes half a tablet because it is so sedating. Has an appointment with psychiatry next week to discuss psychiatric meds, will not make adjustments to Elavil at this time. Did discuss supplements and patient is amenable to try supplements for preventative headache. Patient does have history of asthma, will refrain from using propranolol. Due to history of bipolar disorder will also refrain from using any other antidepressants. Regarding Topamax and gabapentin, patient with significant kidney disease and will refrain from using any of these medications as they are renally excreted. Discussed Botox and patient is amenable, patient has tried and failed multiple medications in the past including Elavil, SSRIs, and triptan medications. Feel Botox would be the best benefit for the patient due to her history of kidney disease and other comorbidities. Patient is amenable. Regarding water therapy, patient does get good benefit with Imitrex. Would like to increase this if possible. Will increase to 100 mg to take with onset of headache, no more than 10 doses a month. No history of heart attack or stroke, patient is a former smoker. Does not be effective, did discuss changing it to a longer-lasting triptan and patient states that she would like to do this should her increase and Imitrex not be effective. Patient also notes seeing floaters in her vision over the last year, not necessarily associate with her headache. Encouraged her to see an eye doctor for dilated exam and patient is amenable. Patient also with signs and symptoms of sleep apnea. Snores occasionally, but mostly has not witnessed to have multiple apneic episodes while she is sleeping. Notes daytime sleepiness, dry mouth in the morning and worsening of her headaches. Concern for sleep apnea, will order home sleep study to evaluate for this. Patient agreeable to treatment plan of care at this time, all questions were answered. Patient to follow-up in 3 months or sooner should any symptoms change or worsen. Aissatou was seen today for new patient. Diagnoses and all orders for this visit: New daily persistent headache - Cancel: MRI BRAIN WO/W IVCON; Future - MRI BRAIN WO IVCON; Future Intractable chronic migraine without aura and without status migrainosus - Cancel: MRI BRAIN WO/W IVCON; Future - REFERRAL TO GENERAL NEUROLOGY BOTOX; Future Obstructive sleep apnea - HOME SLEEP APNEA TEST (HSAT); Future Other orders - Discontinue: iv contrast (will be provided with radiology test); MRI Brain Inject, intravenously, once for 1 dose.No IV access, insert saline lock prior to beginning of sedation, infusion, injection of imaging exam.Discontinue saline lock post exam. If Pt. has a central line or IVAD, may access for administration according to line specific nursing protocol.Once exam is complete flush line and de-access according to line specific nursing protocol in the MR contrast administration guidelines link - SUMAtriptan (IMITREX) 100 mg tablet; Take 1 tablet (100 mg) by mouth as needed for migraine headache (see administration instructions). May repeat dose after 2 hours if needed. Maximum daily dose is 200 mg per day. No more than 10 doses in a month. All options for treatment discussed. Preventative: Elavil, supplements, Botox Abortive: Imitrex 100 mg Imaging: MRI of the brain without Labs: None She should return to see me in 3 months. I spent a total of 60 minutes on the date of the service which included preparing to see the patient, [id number] patient care, completing clinical documentation, obtaining and/or reviewing separately obtained history, performing a medically appropriate examination, counseling and educating the patient/family/caregiver, and ordering medications, tests, or procedures. Bethany Gil PA-C [facility] We will get a precert for Onabotulinum Toxin A using the PREEMPT protocol. This patient meets FDA criteria for Chronic Migraine without aura, with mention of intractable migraine, so stated, without mention of status migrainosus. The migraine lasts for greater than 4 hours and has been chronic for more than three months. Onabotulinum Toxin A is FDA approved for chronic migraine. Her headaches are associated with photophobia, phonophobia, osmophobia, nausea, vomiting, blurred vision, neck pain for three or more months. Patient will not use in conjunction with CGRP preventive medications. Medication overuse, alternate diagnosis, confounding psychiatric or social stresses have been ruled out as the cause of headaches. Severity: moderate to severe Quality: throbbing Migraine days a month: daily Headache days a month: daily Total Headache days a month: daily Headache free days a month: 0 The following preventative medications have been tried for at least three months without benefit or discontinued due to side effects: Elavil Abilify Zoloft *Patient with CKD and GFR of 36, will refrain from using topiramate or gabapentin as they are renally excreted, will avoid propranolol as she has history of asthma. The following abortive medications have been tried but require high frequency use which can lead to Medication Overuse Headache: Imitrex Tylenol *Patient cannot use NSAIDs due to history of CKD. The patient has been assessed for disorders which could contribute to breathing or swallowing difficulty, and there is no contraindication with PREEMPT Botox. There is no documented allergic reaction/hypersensitivity to any botulinum toxin and there is no active infection at proposed injection site This document has been created with the use of voice recognition technology. It may contain inaccuracies: (e.g. misspellings, inaccurate syntax or word sense) that have escaped review. 04/03/2023 PROMIS Global Health Physical Health Summary Physical health: Fair Everyday physical activity, ability: Moderately Fatigue: Severe Pain level: 6 General health: Fair Social activities/roles, ability: Fair Physical Health T-Score 34.9 (Poor) Physical Health Percentile 7 PROMIS Global Health Mental Health Summary Quality of life: Good Mental health (mood,thinking): Good Social satisfaction: Fair Emotional problems (anxious,depressed): Sometimes Mental Health T-Score 41.1 (Good) Mental Health Percentile 19 PHQ-9 Score: 16(Moderately Severe Depression) PHQ-9 Self-Harm: Not at all ASHKAN-7 Score: 10(Moderate Anxiety) PROMIS NEUROQOL COGNITIVE FUNCTION SCORE 04/03/2023 [facility] Neuroqol Cognitive Percentile 16* PROMIS PHYSICAL FUNCTION SCORE 04/03/2023 [facility] Physical Function Percentile 5 PROMIS PAIN INTERFERENCE SCORE 04/03/2023 [facility] Pain Interference Percentile 12 Percentiles provide an indication of how a patient's score ranks in relation to the [place] general population. > 31st percentile is within normal limits or better *< 31st percentile is at least SD worse than population, which may be clinically relevant < 16th percentile is at least 1 SD worse than population and warrants attention 04/03/2023 Sleep Apnea Probability Snores loudly: No Tired, fatigued or sleepy in daytime: Yes Stops breathing or choking/gasping during sleep: Yes High blood pressure: Yes Sleep Apnea Probability Score: 8 (Sleep study not recommended) 04/03/2023 PROMIS Global Health Physical Health Summary Physical health: Fair Everyday physical activity, ability: Moderately Fatigue: Severe Pain level: 6 General health: Fair Social activities/roles, ability: Fair Physical Health T-Score 34.9 (Poor) Physical Health Percentile 7 PROMIS Global Health Mental Health Summary Quality of life: Good Mental health (mood,thinking): Good Social satisfaction: Fair Emotional problems (anxious,depressed): Sometimes Mental Health T-Score 41.1 (Good) Mental Health Percentile 19 PHQ-9 Score: 16(Moderately Severe Depression) PHQ-9 Self-Harm: Not at all ASHKAN-7 Score: 10(Moderate Anxiety) PROMIS NEUROQOL COGNITIVE FUNCTION SCORE 04/03/2023 [facility] Neuroqol Cognitive Percentile 16* PROMIS PHYSICAL FUNCTION SCORE 04/03/2023 [facility] Physical Function Percentile 5 PROMIS PAIN INTERFERENCE SCORE 04/03/2023 [facility] Pain Interference Percentile 12 Percentiles provide an indication of how a patient's score ranks in relation to the [place] general population. > 31st percentile is within normal limits or better *< 31st percentile is at least SD worse than population, which may be clinically relevant < 16th percentile is at least 1 SD worse than population and warrants attention 04/03/2023 Sleep Apnea Probability Snores loudly: No Tired, fatigued or sleepy in daytime: Yes Stops breathing or choking/gasping during sleep: Yes High blood pressure: Yes Sleep Apnea Probability Score: 8 (Sleep study not recommended) documented in this encounter [facility] 04-04-2023 Note Left another [email or web address] message for pt regarding referral. [facility] 04-03-2023 Miscellaneous Notes Behavioral Health Social Work Progress Note Patient identified for [facility] from: PCP Reason for referral: Resources Behavioral Health Resources: Psychology - talk therapy, Psychiatry med management [facility] encounter type: Telephone Encounter Patient Discharged?: No Patient reported that caregiver was able to meet their needs today?: N/A Phone call placed today that went to [employer]. Left my contact information and brief nature of call. Initial outreach also completed via [email or web address] sending list of in network providers with insurance. LORI Armstrong-S April 03, 2023 documented in this encounter [facility] 04-03-2023 Note HNO ID: [id number] Author: Mabel Oshea APRN.CATY Service: ? Author Type: Plasma Table Operator Type: Progress Notes Filed: 04/03/2023 11:01 AM Note Text: Aissatou Johnson is a 32 year old female who presents to discuss removal and reinsertion of Nexplanon. Stated it has been over 3 years since placement. She is having periods every couple of weeks. Currently on period now. Pleased with Nexplanon and would like a new one placed. Cancer (in remission)- [id number] Stage 4 Hodgkin lympohoma. She is 17 months sober and interested in counseling/possible medication evaluation. History of taking medications but not for a while . Reports was self medicating with drugs. OB History T0 L1 SAB0 IAB0 Ectopic0 Multiple0 Live Births1 Ur Coordinator History LMP: 03/27/2023, Implant Age at Menarche: Age at First : Age at Menopause: Ur Coordinator History Comments: Sexual Activity: Yes; Male Contraception: Implant PAST MEDICAL HISTORY Diagnosis Date Alcohol abuse polysubstance abuse Anemia Asthma Bipolar 1 disorder (HCC) Chronic hepatitis C (HCC) Decreased hearing 85 % hearing loss in left ear Depression 10/12/2011 Headache High blood pressure per patient - associated with breathing History of delivery Hodgkin's disease 2008 S/p chemo/radiation Hypothyroidism Solitary kidney, congenital pt born with single kidney PAST SURGICAL HISTORY Procedure Laterality Date SECTION HX 02/24/2016 HERPES 1 AND 2, IGB+ 2011 PAST SURGICAL HISTORY OF kidney surgery PAST SURGICAL HISTORY OF rectal PAST SURGICAL HISTORY OF 06/09/2009 Left Supraclavicular Lymphnode Excision FAMILY HISTORY Problem Relation Age of Onset Hypertension Mother other (depresssion) Mother No Known Problems Father Cancer Maternal Grandfather other (ulcerative colitis) Paternal Grandmother Diabetes Maternal Aunt Social History Tobacco Use Smoking status: Former Packs/day: 0.50 Years: 0.70 Additional pack years: 0.00 Total pack years: 0.35 Types: Cigarettes Smokeless tobacco: Never Vaping Use Vaping Use: Former Substances: Nicotine, Flavoring Substance Use Topics Alcohol use: No Alcohol/week: 0.8 standard drinks of alcohol Types: 1 Cans of beer per week Drug use: No Comment: used heroin, crack, marijuana, meth in past. Last used heroin and crack Apr 2018 Current Outpatient Medications Medication Sig SUMATRIPTAN SUCCINATE ORAL Take by mouth. budesonide/formoterol fumarate (SYMBICORT INHALATION) Inhale as instructed. amitriptyline (ELAVIL) 10 mg tablet Take 10 mg by mouth daily at bedtime. valACYclovir (VALTREX) 500 mg tablet TAKE 1 TABLET BY MOUTH DAILY VITAMIN D-3 50 mcg (2,000 unit) cap Take 1 capsule by mouth once daily. levothyroxine (SYNTHROID) 150 mcg tablet Take 1 tablet by mouth once daily. etonogestrel (NEXPLANON) subdermal implant 68 mg 1 Each by SUBDERMAL route as directed. VITAMIN B-12 500 mcg tab tab(s) hydrOXYzine HCl (ATARAX) 50 mg tablet Take 1 tablet by mouth three times daily as needed for anxiety. losartan (COZAAR) 25 mg tablet Take 1 tablet by mouth once daily. calcium carbonate (TUMS 500 ORAL) Take 500 mg by mouth as needed (upset stomach). (Patient not taking: Reported on 04/03/2023) traZODone (DESYREL) 100 mg tablet Take 100 mg by mouth daily at bedtime. dicyclomine (BENTYL) 20 mg tablet Take 20 mg by mouth every 6 hours as needed (abd pain). ondansetron (ZOFRAN) 8 mg tablet Take 8 mg by mouth every 8 hours as needed for nausea/vomiting. buprenorphine-naloxone (ZUBSOLV) 2.9-0.71 mg subl Dissolve 1 tablet under the tongue once daily. sublingual sertraline (ZOLOFT) 25 mg tablet Take 1 tablet by mouth once daily. ARIPiprazole (ABILIFY) 5 mg tablet Take 5 mg by mouth once daily. (Patient not taking: Reported on 04/03/2023) ALBUTEROL SULFATE HFA INHALATION Inhale 2 Puffs as instructed every 6 hours as needed. uses PRN for asthma. Pt. unsure of dose (Patient not taking: Reported on 02/10/2021 ) No current facility-administered medications for this visit. Allergies As of Date: 04/03/2023 Allergen Noted Reaction CATS 10/27/2010 Shortness of Breath CEFTRIAXONE 09/25/2019 Hives and Unknown DROPERIDOL 08/06/2012 Anaphylaxis LAXATIVE PILL 09/25/2019 GI Upset Fully Assessed 04/03/2023 REVIEW OF SYSTEMS Abdomen: No bloating, early satiety, indigestion, or increased flatulence. No abdominal pain, nausea, vomiting, diarrhea, or constipation. Bladder: No dysuria, gross hematuria, urinary frequency, urinary urgency, or incontinence. Breast: No breast lumps, nipple d/c, overlying skin changes, redness or skin retraction. Expanded ROS: N/A Allergies and current medication updated:Yes EXAM: BP 92/62 Wt 141 lb (64.0kg) LMP 03/27/2023 GENERAL: pleasant, female in no apparent distress HEENT: Normocephalic, atraumatic, mucus membranes moist, and no lesions NECK: Supple and full range of motion (more content not included)... [facility] 04-03-2023 Instructions Mabel Oshea APRN.CNM - 04/03/2023 10:12 AM EDT Here are some links for wonderful Providers here in the community and surrounding areas. Do not hesitate to contact their offices, many are offering virtual visits during this time. [phone] - [place] Maternal Mental Health Hotline If you are in suicidal crisis, please call or text [phone] ( ) or visit the National Suicide Prevention Lifeline website. mchb.zuni hospitala.gov [facility] Psychology, Psychiatry, Counseling Connect with therapist/ can do virtual visits [phone] Referral to the [facility] To schedule an appointment, please call the [place] for Behavioral Health Appointment Line: [phone] option 1 Counseling [facility] - [place] [address] [address] [place], [place] [id number] [facility] [address] [place] [address] [facility] [address] [place] [address] [facility] [address] [place] [address] Deangelo Anderson MD [address] [place] [address] [facility] [address] [facility], [address] [place] [address] [facility] [address] [place] [address] [facility] Counseling Services [place] / [place] [phone]/ [phone] Elaine Mas [address] [facility] [address] [facility] [phone] [facility] Counseling and Mediation Loya / Robin [phone] Behavioral health services of [facility] [address] [place] [address]/ [place] [phone] SIDNEY Marino, CHAVO [facility] Workshops, telehealth and at home visits. [phone] [facility] counseling [place] 20 locations [place], [place], [place], [place], [place], [place], [place], [facility], [place], [place], [place], [place], [place], [place], [facility], [place], [place] ,[facility], [place], [place],[facility], [facility] [place], [place], [facility], [facility], [place] [email or web address] [phone] Psychotherapy resources outside of [facility] are listed below [facility] Psychotherapy Web: https://www.Clear Creek Networks/ Support International Online Provider Directory https://Qreativ Studio/ [facility] https://Secure Command/ Zeugma Systems for Behavioral Health and Wellness Web: https://Medbox/ Metrasens for Effective Living Web: https://Renkoo.HouseCallliving.ffk environment/ LifeStance Web: https://Apax Solutions.ffk environment/location/s [place]/ [facility] Web: https://www.[facility].or / [facility] Web: https://Wikirin.org/ Recovery Resources Mental health and substance abuse help Web: https://www.Skully Helmetss.org & RESOURCES Support International Direct peer support and connection to professional resources Non-Emergency Helpline Phone: / Text: [phone] Web: https://www..net/ Online Provider Directory: https://Qreativ Studio/ Online Support Meetings: https://www..net/get-he lp/dbg-yrthbq-zqedxdg-meetings/ CARIE Baby and Traffic Safety Administrator Services Web: https://www.GetMyRx/ SeatID Expert information on medication use during and Text: [phone] Web: https://ibeatyou/ NATIONAL REGISTRY FOR PSYCHIATRIC MEDICATIONS Currently studying the safety of antidepressants, ADHD medications and atypical antipsychotics taken during TO PARTICIPATE CALL TOLL-FREE: Web: https://womensmentalhealth.org/re search/pregnancyregistry/ Support Groups: [facility]- Follow on facebook Baby Bistro support group led by [facility] department [facility] - Support Group [facility] Fargos.org The POEM support group [phone] Www.poemonline.org Follow on facebook - POSANKET lestersandoval chapter Online support meetings PSI https://www..net/get-he lp/opw-jmbfev-cwbydsh-meetings/ [facility] mommy and me virtual support group 11:30-1pm Support for mothers and new babies and toddlers Pantego childbirth education: Childbirth @cc.org or call [phone] CRISIS: CRISIS HOTLINE [phone], 911 or go to the nearest . [facility] [phone] / [facility] [phone] https://www.nuvance healthrb.org Crisis text line text the word HOME to [phone] [facility] [address] [facility] [address] www.Tackk.ffk environment Barbara Lazaro clinical counseling [address] [address] www.Bergen Medical ProductsrittApplePie Capital.ffk environment [phone] [facility] space psychotherapy Teresita Rogers SENIOR COMMISSARY AGENT BIOINFORMATICS SOFTWARE ENGINEER-S [address] [facility] www.Slinky [phone]/ [place] [phone] They all offer virtual. All work with trauma Support groups Online support meetings PSI https://www..net/get-he lp/rdm-nfpovy-vhfeqxr-meetings/ Here are the support groups they offer: Support of parents of 1 to 4 years old children POEM ( Outreach and Encouragement for Moms) offers free support for mothers experiencing depression, anxiety, and other mood and anxiety disorders. Masks are recommended but not required. No pre-registration required. Babies in arms welcome. meetings now take place on the and Monday of each month Location: [facility] [address] [place] [address] Room 122 (library room) 7-8:00 p.m. When you enter the the medical center parking lot off of [address] the entrance door closest to our meeting room is on the front of the building toward the right. For those who are more comfortable with a virtual platform, POEM offers online support group options several days of the week. To register for an online group or to find out more about POEM, website at: https://Motobuykersaohio.org/get-help/st. lawrence health systemcksw-lhauai-acnhzc/poem-services/ offer a confidential helpline: private Facebook group is called POSANKET [facility] HospitalSandovalamando Hugo Here are the groups they offer: Traumatic childbirth resources: Http://pattch.org/ https://www.hayleeHemoSonicsjanett Liberty Ammunition.ffk environment/ documented in this encounter [facility] 04-03-2023 History of Present illness Narrative Aissatou Johnson is a 32 year old female who presents to discuss removal and reinsertion of Nexplanon. Stated it has been over 3 years since placement. She is having periods every couple of weeks. Currently on period now. Pleased with Nexplanon and would like a new one placed. Cancer (in remission)- [phone] Stage 4 Hodgkin lympohoma. She is 17 months sober and interested in counseling/possible medication evaluation. History of taking medications but not for a while . Reports was self medicating with drugs. OB History T0 L1 SAB0 IAB0 Ectopic0 Multiple0 Live Births1 Ur Coordinator History LMP: 03/27/2023, Implant Age at Menarche: Age at First : Age at Menopause: Ur Coordinator History Comments: Sexual Activity: Yes; Male Contraception: Implant PAST MEDICAL HISTORY Diagnosis Date Alcohol abuse polysubstance abuse Anemia Asthma Bipolar 1 disorder (HCC) Chronic hepatitis C (HCC) Decreased hearing 85 % hearing loss in left ear Depression 10/12/2011 Headache High blood pressure per patient - associated with breathing History of delivery Hodgkin's disease 2008 S/p chemo/radiation Hypothyroidism Solitary kidney, congenital pt born with single kidney PAST SURGICAL HISTORY Procedure Laterality Date SECTION HX 02/24/2016 HERPES 1 & 2, IGB+ 2011 PAST SURGICAL HISTORY OF kidney surgery PAST SURGICAL HISTORY OF rectal PAST SURGICAL HISTORY OF 06/09/2009 Left Supraclavicular Lymphnode Excision FAMILY HISTORY Problem Relation Age of Onset Hypertension Mother other (depresssion) Mother No Known Problems Father Cancer Maternal Grandfather other (ulcerative colitis) Paternal Grandmother Diabetes Maternal Aunt Social History Tobacco Use Smoking status: Former Packs/day: 0.50 Years: 0.70 Additional pack years: 0.00 Total pack years: 0.35 Types: Cigarettes Smokeless tobacco: Never Vaping Use Vaping Use: Former Substances: Nicotine, Flavoring Substance Use Topics Alcohol use: No Alcohol/week: 0.8 standard drinks of alcohol Types: 1 Cans of beer per week Drug use: No Comment: used heroin, crack, marijuana, meth in past. Last used heroin and crack Apr 2018 Current Outpatient Medications Medication Sig SUMATRIPTAN SUCCINATE ORAL Take by mouth. budesonide/formoterol fumarate (SYMBICORT INHALATION) Inhale as instructed. amitriptyline (ELAVIL) 10 mg tablet Take 10 mg by mouth daily at bedtime. valACYclovir (VALTREX) 500 mg tablet TAKE 1 TABLET BY MOUTH DAILY VITAMIN D-3 50 mcg (2,000 unit) cap Take 1 capsule by mouth once daily. levothyroxine (SYNTHROID) 150 mcg tablet Take 1 tablet by mouth once daily. etonogestrel (NEXPLANON) subdermal implant 68 mg 1 Each by SUBDERMAL route as directed. VITAMIN B-12 500 mcg tab tab(s) hydrOXYzine HCl (ATARAX) 50 mg tablet Take 1 tablet by mouth three times daily as needed for anxiety. losartan (COZAAR) 25 mg tablet Take 1 tablet by mouth once daily. calcium carbonate (TUMS 500 ORAL) Take 500 mg by mouth as needed (upset stomach). (Patient not taking: Reported on 04/03/2023) traZODone (DESYREL) 100 mg tablet Take 100 mg by mouth daily at bedtime. dicyclomine (BENTYL) 20 mg tablet Take 20 mg by mouth every 6 hours as needed (abd pain). ondansetron (ZOFRAN) 8 mg tablet Take 8 mg by mouth every 8 hours as needed for nausea/vomiting. buprenorphine-naloxone (ZUBSOLV) 2.9-0.71 mg subl Dissolve 1 tablet under the tongue once daily. sublingual sertraline (ZOLOFT) 25 mg tablet Take 1 tablet by mouth once daily. ARIPiprazole (ABILIFY) 5 mg tablet Take 5 mg by mouth once daily. (Patient not taking: Reported on 04/03/2023) ALBUTEROL SULFATE HFA INHALATION Inhale 2 Puffs as instructed every 6 hours as needed. uses PRN for asthma. Pt. unsure of dose (Patient not taking: Reported on 02/10/2021 ) No current facility-administered medications for this visit. Allergies As of Date: 04/03/2023 Allergen Noted Reaction CATS 10/27/2010 Shortness of Breath CEFTRIAXONE 09/25/2019 Hives and Unknown DROPERIDOL 08/06/2012 Anaphylaxis LAXATIVE PILL 09/25/2019 GI Upset Fully Assessed 04/03/2023 REVIEW OF SYSTEMS Abdomen: No bloating, early satiety, indigestion, or increased flatulence. No abdominal pain, nausea, vomiting, diarrhea, or constipation. Bladder: No dysuria, gross hematuria, urinary frequency, urinary urgency, or incontinence. Breast: No breast lumps, nipple d/c, overlying skin changes, redness or skin retraction. Expanded ROS: N/A Allergies and current medication updated:Yes EXAM: BP 92/62 Wt 141 lb (64.0kg) LMP 03/27/2023 GENERAL: pleasant, female in no apparent distress HEENT: Normocephalic, atraumatic, mucus membranes moist, and no lesions NECK: Supple and full range of motion DERMATOLOGY: Normal and without lesions NEURO: alert and oriented x3,exam grossly non-focal EXTREMITIES: normal ASSESSMENT/PLAN: 1. Encounter for removal and reinsertion of Nexplanon - ICD9: V25.43, ICD10: Z30.46 (primary diagnosis) - NEXPLANON INSERTION - NEXPLANON REMOVAL 2. Recurrent HSV (herpes simplex virus) - ICD9: 054.9, ICD10: B00.9 - Rx sent for suppressive therapy 3. Bipolar 1 disorder (HCC) - ICD9: 296.7, ICD10: F31.9 - CONSULT TO PRIMARY CARE BEHAVIORAL HEALTH ADULT 4. PTSD (post-traumatic stress disorder) - ICD9: 309.81, ICD10: F43.10 - CONSULT TO PRIMARY CARE BEHAVIORAL HEALTH ADULT 5. Anxiety - ICD9: 300.00, ICD10: F41.9 RTO- 2 weeks for removal and replacement of Nexplanon Needs PAP Mabel Oshea APRN.CNM documented in this encounter [facility] 03-31-2023 Note Left voicemail for p t to call office. Referral was already fax[facility] to [facility] fax # [phone] in feb. Is this correct office ? Or does it need sent somewhere else ? [facility] 03-30-2023 Note External referral al ready placed. We need to find out where she wants us to send it. [facility] 03-16-2023 Note Generic external referral placed . [facility] 03-15-2023 Note Called pt, informed pt Referrals placed for pulmonology and neurology - please fax to requested locations in message. For urology, we can send to any office in [place] - I don't know who is there. For behavioral health, she will need to call the number on her insurance card to find out where she can go. Referral is not required for mental health. Patient stated that the Behavioral health in [place] does need a referral or else the patient cannot schedule and appointment. Please advise. [facility] 03-15-2023 Note Referrals placed for pulmonology and neurology - please fax to requested locations in message. For urology, we can send to any office in [place] - I don't know who is there. For behavioral health, she will need to call the number on her insurance card to find out where she can go. Referral is not required for mental health. [facility] 03-03-2023 History of Present illness Narrative Images from the original note were not included. Answers submitted by the patient for this visit: Shortness of Breath Questionnaire (Submitted on 03/02/2023) Chief Complaint: Shortness of breath Chronicity: recurrent Onset: more than 1 month ago Frequency: constantly Progression since onset: gradually worsening abdominal pain: No chest pain: No claudication: No coryza: No ear pain: No fever: No headaches: Yes hemoptysis: No leg pain: No leg swelling: No neck pain: Yes orthopnea: No PND: No rash: No rhinorrhea: No sore throat: No sputum production: No swollen glands: No syncope: No vomiting: No Aggravating factors: emotional upset, occupational exposure, exercise, any activity [facility] [address] [place] [address] [address] [facility] [address] Dept: [phone] Dept Visit type: Established patient Reason for Visit: 6 Month Follow-up (Appt on Hypothyroidism, Migraine) and discuss ECHO Assessment and Plan 1. Moderate persistent asthma without complication [place] [facility] [place]ulmonology She agrees to try Symbicort. Referral to pulm due to restrictive component and history of chemotherapy. 2. Acquired hypothyroidism - levothyroxine (Synthroid, Levoxyl) 150 MCG tablet; Take 1 tablet (150 mcg) by mouth every morning (before breakfast)., Starting Mon03/03/2023, Normal - TSH Labs drawn today. TSH will likely be high due to not taking medication regularly. 3. Chronic migraine without aura without status migrainosus, not intractable - uncontrolled - SUMAtriptan (Imitrex) 25 MG tablet; TAKE 1 TABLET (25 MG) BY MOUTH ONCE NEEDED FOR MIGRAINE FOR UP TO 1 DOSE., Normal - amitriptyline (Elavil) 10 MG tablet; Take 1 tablet (10 mg) by mouth Nightly., Starting Mon03/03/2023, Until 03/02/2024, Normal Starting amitriptyline for prophylaxis. 4. Stage 3b chronic kidney disease (HCC) - External referral to Nephrology - Basic metabolic panel 5. Renal agenesis - External referral to Nephrology Follow up in about 6 months (around 09/01/2023) for Physical. Subjective Here for follow up on chronic conditions. Just moved in with her mom so she can focus on getting her physical and metnal health under control. Shortness of Breath This is a recurrent problem. The current episode started more than 1 month ago. The problem occurs constantly. The problem has been gradually worsening. Associated symptoms include headaches and neck pain. Pertinent negatives include no abdominal pain, chest pain, claudication, coryza, ear pain, fever, hemoptysis, leg pain, leg swelling, orthopnea, PND, rash, rhinorrhea, sore throat, sputum production, swollen glands, syncope or vomiting. The symptoms are aggravated by emotional upset, occupational exposure, exercise and any activity. PFT consistent with asthma in October. Symbicort called in but has not tried it yet - wanted to discuss further. PFT also showed restriction. Has history of chemotherapy with Mccune V regimen [id number] for Hodgkins lymphoma. CKD 3b - has not been to nephrology. Wants referred somewhere closer to [place] since she is staying with her mom. Hypothyroid - not taking medication regularly. Migraines - the 9 allotted Imitrex monthly are not lasting. It works well when she takes it. Review of Systems Constitutional: Negative for fever. HENT: Negative for ear pain, rhinorrhea and sore throat. Respiratory: Positive for shortness of breath. Negative for hemoptysis and sputum production. Cardiovascular: Negative for chest pain, orthopnea, claudication, leg swelling, syncope and PND. Gastrointestinal: Negative for abdominal pain and vomiting. Musculoskeletal: Positive for neck pain. Skin: Negative for rash. Neurological: Positive for headaches. Allergies Allergen Reactions Cat Hair Extract Shortness of breath Droperidol Anaphylaxis and Anxiety Fentanyl And Related Other reaction(s): Other (See Comments) Only one kidney, dizziness Atorvastatin Bisacodyl Unknown Meperidine Sennosides Other reaction(s): Other (See Comments) Other reaction(s): GI Upset Ceftriaxone Hives, Rash and Unknown Current Outpatient Medications Medication Sig Dispense Refill cholecalciferol (Vitamin D-3) 50 MCG (2000 UT) capsule Take 1 capsule (50 mcg) by mouth daily. 30 capsule 11 cyanocobalamin (Vitamin B-12) 500 MCG tablet Take 1 tablet (500 mcg) by mouth daily. 30 tablet 11 etonogestrel-eluting 68 mg contraceptive implant Inject 68 mg under the skin. amitriptyline (Elavil) 10 MG tablet Take 1 tablet (10 mg) by mouth Nightly. 30 tablet 3 budesonide-formoterol (Symbicort) 80-4.5 MCG/ACT inhaler Inhale 2 puffs 2 times daily as needed (shortness of breath, wheezing). Rinse mouth with water after use to reduce aftertaste and incidence of candidiasis. Do not swallow. (Patient not taking: Reported on 03/03/2023) 10.2 g 2 cetirizine (ZyrTEC) 10 MG tablet Take 1 tablet (10 mg) by mouth daily. 30 tablet 0 levothyroxine (Synthroid, Levoxyl) 150 MCG tablet Take 1 tablet (150 mcg) by mouth every morning (before breakfast). 90 tablet 1 SUMAtriptan (Imitrex) 25 MG tablet TAKE 1 TABLET (25 MG) BY MOUTH ONCE NEEDED FOR MIGRAINE FOR UP TO 1 DOSE. 9 tablet 2 No current facility-administered medications for this visit. Past Medical History: Diagnosis Date Abnormal Pap smear of cervix Anemia Anxiety Asthma Takes no medications Cancer (CMS/HCC) (HCC) Hodgkins (in remission) Chronic back pain Chronic kidney disease Enlarged right kidney, no left kidney Clotting disorder (CMS/HCC) (HCC) Deaf left ear Depression Drug abuse (CMS/HCC) (HCC) cocaine, marijuana, opiates Hypertension Infectious viral hepatitis Migraine Neck pain Opioid withdrawal (HCC) 02/24/2016 Thyroid disease Social History Tobacco Use Smoking status: Former Packs/day: 0.00 Years: 5.00 Pack years: 0.00 Types: Cigarettes Quit date: 07/10/2022 Years since quittin.6 Smokeless tobacco: Never Substance Use Topics Alcohol use: Not Currently Past Surgical History: Procedure Laterality Date SECTION (HISTORICAL) 02/24/2016 SECTION, LOW TRANSVERSE COLONOSCOPY 01/15/2020 Dr. Holman NECK SURGERY Left to remove cancer RECTAL SURGERY as a child UPPER GASTROINTESTINAL ENDOSCOPY 01/15/2020 Dr. Holman Family History Problem Relation Name Age of Onset Ulcerative colitis Paternal Grandfather High Blood Pressure Mother Machelle Thyroid disease Mother Machelle defects Mother Machelle Depression Mother Machelle Hypertension Mother Machelle Mental illness Mother Machelle Alcohol abuse Father Talon Cancer Maternal Grandfather Al Diabetes Mother's Sister Marleni Learning disabilities Sister Rosa Vision loss Sister Rosa Miscarriages / Stillbirths Sister Terra Stomach cancer Neg Hx Colon cancer Neg Hx Crohn's disease Neg Hx Objective BP 111/72 (BP Location: Left arm, Patient Position: Sitting, BP Cuff Size: Small adult) Pulse 69 Temp 36.5 C (97.7 F) (Infrared) Ht 5' 9 (1.753 m) Wt 143 lb (64.9 kg) LMP 02/28/2023 BMI 21.12 kg/m Physical Exam Constitutional: Appearance: Normal appearance. HENT: Head: Normocephalic and atraumatic. Eyes: Extraocular Movements: Extraocular movements intact. Cardiovascular: Rate and Rhythm: Normal rate and regular rhythm. Pulmonary: Effort: Pulmonary effort is normal. No respiratory distress. Breath sounds: Normal breath sounds. Musculoskeletal: Cervical back: Normal range of motion. Neurological: General: No focal deficit present. Mental Status: She is alert and oriented to person, place, and time. Psychiatric: Mood and Affect: Mood normal. Behavior: Behavior normal. Data Reviewed and Summarized Labs: Imaging/Testing: Solomon Hi DO documented in this encounter [facility] 10-25-2022 History of Present illness Narrative Images from the original note were not included. [facility] [address] [place] [id number] Dept: [phone] Dept Visit type: Established patient Reason for Visit: ER Follow-up (From [facility] in [place] on 10/21/22 re: Chest Pain) Assessment and Plan 1. Orthostatic hypotension - [facility] [place] Advised increasing fluid and sodium intake. May end up needing medication. 2. Stage 3b chronic kidney disease (HCC) - External referral to Nephrology 3. Shortness of breath - Complete PFT pre and post bronchodilator - Transthoracic echocardiogram (TTE) complete with contrast, bubble, strain, and 3D PRN 4. Idiopathic peripheral neuropathy - [facility] [place] 5. History of Hodgkin's lymphoma - External referral to Nephrology - [facility] [place] - Transthoracic echocardiogram (TTE) complete with contrast, bubble, strain, and 3D PRN Needs workup for long-term effects of cancer treatment. Follow up for Next scheduled follow-up. Subjective HPI Here for ED follow up. She went to ED for chest pain, lightheadedness episodes. Testing was all normal including labs, EKG, CXR. She was treated for presumptive UTI and is still on Macrobid - culture came back negative. Not having any urinary symptoms. She is still getting frequent lightheadedness and shortness of breath. She does not skip meals and feels she drinks enough water. History of Hodgkin lymphoma age 18. According to oncology notes from last visit she had in 2013, she was treated with Mccune V regimen 05/2009-08/2009. 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 She was referred to nephrology but still hasn't been. She states she is ready to take her health more seriously. Seeing [facility] for counseling. Review of Systems Constitutional: Positive for fatigue. Negative for diaphoresis, fever and unexpected weight change. Respiratory: Positive for shortness of breath. Negative for cough. Cardiovascular: Positive for chest pain. Gastrointestinal: Negative for constipation and diarrhea. Neurological: Positive for light-headedness and numbness. Negative for dizziness and syncope. Allergies Allergen Reactions Cat Hair Extract Shortness of breath Droperidol Anaphylaxis and Anxiety Fentanyl And Related Other reaction(s): Other (See Comments) Only one kidney, dizziness Atorvastatin Bisacodyl Unknown Meperidine Sennosides Other reaction(s): Other (See Comments) Other reaction(s): GI Upset Ceftriaxone Hives, Rash and Unknown Current Outpatient Medications Medication Sig Dispense Refill cetirizine (ZyrTEC) 10 MG tablet Take 1 tablet (10 mg) by mouth daily. 30 tablet 0 cholecalciferol (Vitamin D-3) 50 MCG (1999 UT) capsule Take 1 capsule (50 mcg) by mouth daily. 30 capsule 11 cyanocobalamin (Vitamin B-12) 500 MCG tablet Take 1 tablet (500 mcg) by mouth daily. 30 tablet 11 etonogestrel-eluting 68 mg contraceptive implant Inject 68 mg under the skin. levothyroxine (Synthroid, Levoxyl) 150 MCG tablet Take 1 tablet (150 mcg) by mouth every morning (before breakfast). 90 tablet 1 SUMAtriptan (Imitrex) 25 MG tablet Take 1 tablet (25 mg) by mouth Once as needed for migraine for up to 1 dose. 9 tablet 2 No current facility-administered medications for this visit. Past Medical History: Diagnosis Date Abnormal Pap smear of cervix Anemia Anxiety Asthma Takes no medications Cancer (CMS/HCC) (HCC) Hodgkins (in remission) Chronic back pain Chronic kidney disease Enlarged right kidney, no left kidney Clotting disorder (CMS/HCC) (HCC) Deaf left ear Depression Drug abuse (CMS/HCC) (HCC) cocaine, marijuana, opiates Hypertension Infectious viral hepatitis Migraine Neck pain Opioid withdrawal (HCC) 02/24/2016 Thyroid disease Social History Tobacco Use Smoking status: Former Packs/day: 0.50 Years: 5.00 Pack years: 2.50 Types: Cigarettes Quit date: 07/10/2022 Years since quittin.2 Smokeless tobacco: Never Substance Use Topics Alcohol use: No Past Surgical History: Procedure Laterality Date SECTION (HISTORICAL) 02/24/2016 SECTION, LOW TRANSVERSE COLONOSCOPY 01/15/2020 Dr. Holman NECK SURGERY Left to remove cancer RECTAL SURGERY as a child UPPER GASTROINTESTINAL ENDOSCOPY 01/15/2020 Dr. Holman Family History Problem Relation Name Age of Onset Ulcerative colitis Paternal Grandfather High Blood Pressure Mother Machelle Thyroid disease Mother Machelle defects Mother Machelle Depression Mother Machelle Hypertension Mother Machelle Mental illness Mother Machelle Alcohol abuse Father Talon Cancer Maternal Grandfather Al Diabetes Mother's Sister Marleni Learning disabilities Sister Rosa Vision loss Sister Rosa Miscarriages / Stillbirths Sister Terra Stomach cancer Neg Hx Colon cancer Neg Hx Crohn's disease Neg Hx Objective BP 96/69 (BP Location: Left arm, Patient Position: Standing) Pulse 96 Temp 36.7 C (98 F) (Infrared) Ht 5' 9 (1.753 m) Wt 146 lb (66.2 kg) LMP 10/04/2022 BMI 21.56 kg/m Physical Exam Data Reviewed and Summarized Labs: Imaging/Testing: Solomon Hi DO documented in this encounter [facility] 10-25-2022 History of Present illness Narrative Images from the original note were not included. [facility] [address] [address] Dept: [phone] Dept Visit type: Established patient Reason for Visit: ER Follow-up (From [facility] in [place] on 10/21/22 re: Chest Pain) Assessment and Plan 1. Orthostatic hypot[place] [facility] Advised increasing fluid and sodium intake. May end up needing medication. 2. Stage 3b chronic kidney disease (HCC) - External referral to Nephrology 3. Shortness of breath - Complete PFT pre and post bronchodilator - Transthoracic echocardiogram (TTE) complete with contrast, bubble, strain, and 3D PRN 4. Idiopathic peripheral neuropathy - [facility] 5. History of Hodgkin's lymphoma - External referral to Nephrology - [facility] - Transthoracic echocardiogram (TTE) complete with contrast, bubble, strain, and 3D PRN Needs workup for long-term effects of cancer treatment. Follow up for Next scheduled follow-up. Subjective HPI Here for ED follow up. She went to ED for chest pain, lightheadedness episodes. Testing was all normal including labs, EKG, CXR. She was treated for presumptive UTI and is still on Macrobid - culture came back negative. Not having any urinary symptoms. She is still getting frequent lightheadedness and shortness of breath. She does not skip meals and feels she drinks enough water. History of Hodgkin lymphoma age 18. According to oncology notes from last visit she had in 2013, she was treated with Trey V regimen 05/2009-08/2009. 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 She was referred to nephrology but still hasn't been. She states she is ready to take her health more seriously. Seeing Jeannie Romano for counseling. Review of Systems Constitutional: Positive for fatigue. Negative for diaphoresis, fever and unexpected weight change. Respiratory: Positive for shortness of breath. Negative for cough. Cardiovascular: Positive for chest pain. Gastrointestinal: Negative for constipation and diarrhea. Neurological: Positive for light-headedness and numbness. Negative for dizziness and syncope. Allergies Allergen Reactions Cat Hair Extract Shortness of breath Droperidol Anaphylaxis and Anxiety Fentanyl And Related Other reaction(s): Other (See Comments) Only one kidney, dizziness Atorvastatin Bisacodyl Unknown Meperidine Sennosides Other reaction(s): Other (See Comments) Other reaction(s): GI Upset Ceftriaxone Hives, Rash and Unknown Current Outpatient Medications Medication Sig Dispense Refill cetirizine (ZyrTEC) 10 MG tablet Take 1 tablet (10 mg) by mouth daily. 30 tablet 0 cholecalciferol (Vitamin D-3) 50 MCG (1999 UT) capsule Take 1 capsule (50 mcg) by mouth daily. 30 capsule 11 cyanocobalamin (Vitamin B-12) 500 MCG tablet Take 1 tablet (500 mcg) by mouth daily. 30 tablet 11 etonogestrel-eluting 68 mg contraceptive implant Inject 68 mg under the skin. levothyroxine (Synthroid, Levoxyl) 150 MCG tablet Take 1 tablet (150 mcg) by mouth every morning (before breakfast). 90 tablet 1 SUMAtriptan (Imitrex) 25 MG tablet Take 1 tablet (25 mg) by mouth Once as needed for migraine for up to 1 dose. 9 tablet 2 No current facility-administered medications for this visit. Past Medical History: Diagnosis Date Abnormal Pap smear of cervix Anemia Anxiety Asthma Takes no medications Cancer (CMS/HCC) (HCC) Hodgkins (in remission) Chronic back pain Chronic kidney disease Enlarged right kidney, no left kidney Clotting disorder (CMS/HCC) (HCC) Deaf left ear Depression Drug abuse (CMS/HCC) ([facility]) cocaine, marijuana, opiates Hypertension Infectious viral hepatitis Migraine Neck pain Opioid withdrawal ([facility]) 02/24/2016 Thyroid disease Social History Tobacco Use Smoking status: Former Packs/day: 0.50 Years: 5.00 Pack years: 2.50 Types: Cigarettes Quit date: 07/10/2022 Years since quittin.2 Smokeless tobacco: Never Substance Use Topics Alcohol use: No Past Surgical History: Procedure Laterality Date SECTION (HISTORICAL) 02/24/2016 SECTION, LOW TRANSVERSE COLONOSCOPY 01/15/2020 Dr. Holman NECK SURGERY Left to remove cancer RECTAL SURGERY as a child UPPER GASTROINTESTINAL ENDOSCOPY 01/15/2020 Dr. Holman Family History Problem Relation Name Age of Onset Ulcerative colitis Paternal Grandfather High Blood Pressure Mother Machelle Thyroid disease Mother Machelle defects Mother Machelle Depression Mother Machelle Hypertension Mother Machelle Mental illness Mother Machelle Alcohol abuse Father Talon Cancer Maternal Grandfather Al Diabetes Mother's Sister Marleni Learning disabilities Sister Rosa Vision loss Sister Rosa Miscarriages / Stillbirths Sister Terra Stomach cancer Neg Hx Colon cancer Neg Hx Crohn's disease Neg Hx Objective BP 96/69 (BP Location: Left arm, Patient Position: Standing) Pulse 96 Temp 36.7 C (98 F) (Infrared) Ht 5' 9 (1.753 m) Wt 146 lb (66.2 kg) LMP 10/04/2022 BMI 21.56 kg/m Physical Exam Constitutional: Appearance: Normal appearance. HENT: Head: Normocephalic and atraumatic. Eyes: Extraocular Movements: Extraocular movements intact. Cardiovascular: Rate and Rhythm: Normal rate and regular rhythm. Heart sounds: No murmur heard. Pulmonary: Effort: Pulmonary effort is normal. No respiratory distress. Breath sounds: Normal breath sounds. Musculoskeletal: Cervical back: Normal range of motion. Neurological: General: No focal deficit present. Mental Status: She is alert and oriented to person, place, and time. Psychiatric: Mood and Affect: Mood normal. Behavior: Behavior normal. Data Reviewed and Summarized Labs: Imaging/Testing: Solomon Hi DO documented in this encounter [facility] 10-22-2022 Telephone encounter Note Went to ED and diagnosed with UTI. No cause of chest pain found. [facility] 10-22-2022 Miscellaneous Notes Went to ED and diagnosed with UTI. No cause of chest pain found. S: pt calling [facility] d/t palpitations, chest tightness B: Symptoms started 2-3 weeks A: pt states has had 2-3 weeks has had a couple of episodes where she gets a headache, tightness in her chest and feels like her heart is racing. States the current episode started last night. States felt heart was racing, chest tightness, dizziness and was not able to stand up without support. At times felt as if she was going to pass out. Continues to have chest tightness, feels short of breath when talking. Pt took pulse and states is currently 84 and felt regular when taking it. States that last night her pulse did not feel regular. R: pt will have someone take her to either [facility] or [facility]. . Pt advised to call back with worsening of symptoms, concern or questions. Pt verbalized understanding. Reason for Disposition Difficulty breathing Protocols used: Heart Rate and Heartbeat [id number] documented in this encounter [facility] 10-21-2022 Telephone encounter Note S: pt calling [facility] d/t palpitations, chest tightness B: Symptoms started 2-3 weeks A: pt states has had 2-3 weeks has had a couple of episodes where she gets a headache, tightness in her chest and feels like her heart is racing. States the current episode started last night. States felt heart was racing, chest tightness, dizziness and was not able to stand up without support. At times felt as if she was going to pass out. Continues to have chest tightness, feels short of breath when talking. Pt took pulse and states is currently 84 and felt regular when taking it. States that last night her pulse did not feel regular. R: pt will have someone take her to either [facility] or [facility]. . Pt advised to call back with worsening of symptoms, concern or questions. Pt verbalized understanding. Reason for Disposition Difficulty breathing Protocols used: Heart Rate and Heartbeat [id number] [facility] 10-13-2022 Miscellaneous Notes Patient was seen here once 05/26/2014. Was supposed to follow up in 6 months, never did. Patient advised to contact PCP with rash concerns and PCP can refer back if needed. Patient agreeable. Bethany Cornelius LPN Patient called stating she has a rash/tiny red dots all over her body. She was last in the office 05/2014. She is requesting to speak to clinical. documented in this encounter [facility] 10-13-2022 History of Present illness Narrative Images from the original note were not included. [facility] [address] [place] [address] Dept: [phone] Dept Visit type: Established patient Reason for Visit: Rash (Rash all over body. Started on hands. Patches on knees and elbows. Denies changes in soaps and fragrances. Seen Dr. Hi 2 days ago for this but it wasn't as bad. Did say she missed placed her thyroid medication 2 weeks ago but has never had an issue like this. States they dont itch just hurts) and Headache (Headaches started a day later. States she is taking sumatriptan. States she took 4 pills in 2 days. ) Assessment and Plan 1. Rash - Acute problem, etiology is unclear, likely viral exanthem. Can use cool showers, cold compresses, trial hydrocortisone cream, 2nd gen anti-histamine for symptom relief. Provided reassurance. - Consider referral to Allergy/immunology, or Derm if symptoms do not improve by end of next week - Rapid strep is negative for GAS - AMB POC RAPID STREP A Follow up if symptoms worsen or fail to improve. Subjective HPI Aissatou Johnson presents today with the c/c of rash and headaches Rash Began 3 days ago Started on hands, has now spread to entire body, spares palms and soles of feet Powell, does not itch Is having increased REYNOLDS's Denies fevers, chills, N/V/D Lab work recently showed decreased but improved kidney function, elevated thyroid, normal CBC Pt admits to not taking thyroid medication, new Rx sent yesterday Of note, states her mother has cryoglobulinemia, thinks that she gets rashes like this Review of Systems Constitutional: Negative for chills, fatigue and fever. HENT: Negative for congestion, rhinorrhea, sinus pressure, sinus pain and sore throat. Respiratory: Negative for cough, shortness of breath and wheezing. Cardiovascular: Negative for chest pain and palpitations. Gastrointestinal: Negative for abdominal pain, diarrhea, nausea and vomiting. Musculoskeletal: Negative for myalgias. Skin: Positive for rash. Neurological: Positive for headaches. Negative for syncope. Allergies Allergen Reactions Cat Hair Extract Shortness of breath Droperidol Anaphylaxis and Anxiety Fentanyl And Related Other reaction(s): Other (See Comments) Only one kidney, dizziness Atorvastatin Bisacodyl Unknown Meperidine Sennosides Other reaction(s): Other (See Comments) Other reaction(s): GI Upset Ceftriaxone Hives, Rash and Unknown Current Outpatient Medications Medication Sig Dispense Refill cholecalciferol (Vitamin D-3) 50 MCG (2000 UT) capsule Take 1 capsule (50 mcg) by mouth daily. 30 capsule 11 cyanocobalamin (Vitamin B-12) 500 MCG tablet Take 1 tablet (500 mcg) by mouth daily. 30 tablet 11 SUMAtriptan (Imitrex) 25 MG tablet Take 1 tablet (25 mg) by mouth Once as needed for migraine for up to 1 dose. 9 tablet 2 cetirizine (ZyrTEC) 10 MG tablet Take 1 tablet (10 mg) by mouth daily. 30 tablet 0 etonogestrel-eluting 68 mg contraceptive implant Inject 68 mg under the skin. levothyroxine (Synthroid, Levoxyl) 150 MCG tablet Take 1 tablet (150 mcg) by mouth every morning (before breakfast). (Patient not taking: Reported on 10/13/2022) 90 tablet 1 No current facility-administered medications for this visit. Past Medical History: Diagnosis Date Abnormal Pap smear of cervix Anemia Anxiety Asthma Takes no medications Cancer (CMS/HCC) (HCC) Hodgkins (in remission) Chronic back pain Chronic kidney disease Enlarged right kidney, no left kidney Clotting disorder (CMS/HCC) (HCC) Deaf left ear Depression Drug abuse (CMS/HCC) (HCC) cocaine, marijuana, opiates Hypertension Infectious viral hepatitis Migraine Neck pain Opioid withdrawal (HCC) 02/24/2016 Thyroid disease Social History Tobacco Use Smoking status: Every Day Packs/day: 0.50 Years: 5.00 Pack years: 2.50 Types: Cigarettes Last attempt to quit: 06/06/2022 Years since quittin.3 Smokeless tobacco: Never Substance Use Topics Alcohol use: No Past Surgical History: Procedure Laterality Date SECTION (HISTORICAL) 02/24/2016 SECTION, LOW TRANSVERSE COLONOSCOPY 01/15/2020 Dr. Holman NECK SURGERY Left to remove cancer RECTAL SURGERY as a child UPPER GASTROINTESTINAL ENDOSCOPY 01/15/2020 Dr. Holman Family History Problem Relation Name Age of Onset Ulcerative colitis Paternal Grandfather High Blood Pressure Mother Machelle Thyroid disease Mother Machelle defects Mother Machelle Depression Mother Machelle Hypertension Mother Machelle Mental illness Mother Machelle Alcohol abuse Father Talon Cancer Maternal Grandfather Al Diabetes Mother's Sister Marleni Learning disabilities Sister Rosa Vision loss Sister Rosa Miscarriages / Stillbirths Sister Terra Stomach cancer Neg Hx Colon cancer Neg Hx Crohn's disease Neg Hx Objective BP (!) 131/96 Pulse 85 Temp 36.4 C (97.5 F) (Infrared) Ht 5' 9 (1.753 m) Wt 141 lb (64 kg) SpO2 96% BMI 20.82 kg/m Physical Exam Vitals reviewed. Constitutional: General: She is not in acute distress. Appearance: Normal appearance. HENT: Head: Normocephalic. Nose: Nose normal. No congestion. Mouth/Throat: Mouth: Mucous membranes are moist. Pharynx: Oropharynx is clear. Uvula midline. Tonsils: No tonsillar exudate. Eyes: General: Right eye: No discharge. Left eye: No discharge. Conjunctiva/sclera: Conjunctivae normal. Pupils: Pupils are equal, round, and reactive to light. Cardiovascular: Rate and Rhythm: Normal rate. Pulmonary: Effort: Pulmonary effort is normal. Skin: General: Skin is warm and dry. Findings: Rash present. Rash is papular (generalized). Neurological: General: No focal deficit present. Mental Status: She is alert. Psychiatric: Mood and Affect: Mood normal. Data Reviewed and Summarized Labs: Imaging/Testing: ANATOLIY Zhao CNP documented in this encounter [facility] 10-13-2022 Telephone encounter Note Sent to Oren See other encounters [facility] 10-13-2022 Miscellaneous Notes Sent to Oren See other encounters S: Patient spoke with [facility] nurse regarding rash B: Onset of symptoms/concern 2 days A: Patient complaining of rash(pink dots), itching all over body, headache, nausea. Denies fever, chest pain, difficulty breathing, wheezing. COVID screen (-). R: OV scheduled for today with Thierno Gill. Back line office staff notified of appointment scheduled within the hour. Patient understands care advice. No further needs at this time. Patient instructed to call back with new or worsening symptoms. Reason for Disposition Headache Protocols used: Rash or Redness - [id number] documented in this encounter [facility] 10-13-2022 Telephone encounter Note Spoke with patient and relayed message and patient stated she has not taken her thyroid medication in over two weeks fue to losing them during her move and would like a refill Patient also stated she has appt with Wanda at 11:40 because she is not feeling well with the rash and now she has a migraine. [facility] 10-13-2022 Miscellaneous Notes Spoke with patient and relayed message and patient stated she has not taken her thyroid medication in over two weeks fue to losing them during her move and would like a refill Patient also stated she has appt with Wanda at 11:40 because she is not feeling well with the rash and now she has a migraine. I sent her a message explaining her lab results and to see if she can send pictures of what the rash looks like now. Name of caller: Aissatou Contact phone number: [phone] Relationship to Patient: Self Provider: Dr. Hi Practice: [facility] Chief Complaint/Reason for Call: Pt states her rash is worsening and spreading. She states it is on her face, elbows, inside of her legs, under eyelids and at the top of her nose. She states it hurts and feels like a rug burn. She took a shower a short while ago and her skin felt like it was on fire. Pt is off work today and will get the blood work done that Dr. Hi ordered. Pt states she can come in for another appt if Dr. Hi thinks that is best. Pt states she does not want to have to go to the hospital. Please advise, thank you. Best time of day caller can be reached: any Patient advised that office/PCP has 24-48 business hours to return their call: No documented in this encounter [facility] 10-13-2022 Telephone encounter Note S: Patient spoke with [facility] nurse regarding rash B: Onset of symptoms/concern 2 days A: Patient complaining of rash(pink dots), itching all over body, headache, nausea. Denies fever, chest pain, difficulty breathing, wheezing. COVID screen (-). R: OV scheduled for today with Thierno Gill. Back line office staff notified of appointment scheduled within the hour. Patient understands care advice. No further needs at this time. Patient instructed to call back with new or worsening symptoms. Reason for Disposition Headache Protocols used: Rash or Redness - [id number] [facility] 10-13-2022 Telephone encounter Note Message released to patient as written. Aissatou, Your kidneys are a little better than they were in the hospital. Your TSH is too high - are you ever forgetting to take your thyroid pill? I know you called to say that your rash is worsening. Can you send in a picture? ... Written by Solomon Hi DO on 10/12/2022 9:54 PM EDT Patient's further questions if applicable: Pt was not taking medication needs a refill lost script . Pt will send picture . Pt was transferred to triage Were all questions from office addressed or relayed to the patient from encounter: no Pt dont think thyroid is what is causing issue [facility] 10-13-2022 Miscellaneous Notes Message released to patient as written. Aissatou, Your kidneys are a little better than they were in the hospital. Your TSH is too high - are you ever forgetting to take your thyroid pill? I know you called to say that your rash is worsening. Can you send in a picture? ... Written by Solomon Hi DO on 10/12/2022 9:54 PM EDT Patient's further questions if applicable: Pt was not taking medication needs a refill lost script . Pt will send picture . Pt was transferred to triage Were all questions from office addressed or relayed to the patient from encounter: no Pt dont think thyroid is what is causing issue documented in this encounter [facility] 10-12-2022 Telephone encounter Note I sent her a message explaining her lab results and to see if she can send pictures of what the rash looks like now. [facility] 10-12-2022 Telephone encounter Note Name of caller: Aissatou Contact phone number: [phone] Relationship to Patient: Self Provider: Dr. Hi Practice: [facility] Chief Complaint/Reason for Call: Pt states her rash is worsening and spreading. She states it is on her face, elbows, inside of her legs, under eyelids and at the top of her nose. She states it hurts and feels like a rug burn. She took a shower a short while ago and her skin felt like it was on fire. Pt is off work today and will get the blood work done that Dr. Hi ordered. Pt states she can come in for another appt if Dr. Hi thinks that is best. Pt states she does not want to have to go to the hospital. Please advise, thank you. Best time of day caller can be reached: any Patient advised that office/PCP has 24-48 business hours to return their call: [facility] History of Present illness Narrative Images from the original note were not included. [facility] [address] [place] [address] Dept: [phone] Dept Visit type: Established patient Reason for Visit: Rash (States needs refill on meds) Assessment and Plan 1. Rash and nonspecific skin eruption - CBC Uncertain etiology. She will notify office tomorrow how it's progressing. Possible viral exanthem vs scarlet fever, though no systemic symptoms. 2. Acquired hypothyroidism - TSH Continue levothyroxine 150 mcg daily. 3. Stage 3b chronic kidney disease (HCC) - Comprehensive metabolic panel Labs unable to be drawn in office today due to difficult stick - will go to [facility] in am. Follow up if symptoms worsen or fail to improve. Subjective Rash Associated symptoms include fatigue. Pertinent negatives include no fever. Started this morning on backs of hands and has progressed throughout the day. No itching or pain. Would not know she has the rash if she couldn't see it. No exposures to similar. She has CKD and has not had labs done that were ordered in May. Hypothyroidism - taking medication daily on an empty stomach. Denies weight changes, heat/cold intolerance, palpitations, fatigue, bowel changes. Lab is due. Review of Systems Constitutional: Positive for fatigue. Negative for chills, diaphoresis, fever and unexpected weight change. Gastrointestinal: Negative for nausea. Skin: Positive for rash. Negative for wound. Allergies Allergen Reactions Cat Hair Extract Shortness of breath Droperidol Anaphylaxis and Anxiety Fentanyl And Related Other reaction(s): Other (See Comments) Only one kidney, dizziness Atorvastatin Bisacodyl Unknown Meperidine Sennosides Other reaction(s): Other (See Comments) Other reaction(s): GI Upset Ceftriaxone Hives, Rash and Unknown Current Outpatient Medications Medication Sig Dispense Refill cholecalciferol (Vitamin D-3) 50 MCG (1999 UT) capsule Take 1 capsule (50 mcg) by mouth daily. 30 capsule 11 cyanocobalamin (Vitamin B-12) 500 MCG tablet Take 1 tablet (500 mcg) by mouth daily. 30 tablet 11 levothyroxine (Synthroid, Levoxyl) 150 MCG tablet Take 1 tablet (150 mcg) by mouth every morning (before breakfast). 90 tablet 1 SUMAtriptan (Imitrex) 25 MG tablet Take 1 tablet (25 mg) by mouth Once as needed for migraine for up to 1 dose. 9 tablet 2 etonogestrel-eluting 68 mg contraceptive implant Inject 68 mg under the skin. No current facility-administered medications for this visit. Past Medical History: Diagnosis Date Abnormal Pap smear of cervix Anemia Anxiety Asthma Takes no medications Cancer (CMS/HCC) (HCC) Hodgkins (in remission) Chronic back pain Chronic kidney disease Enlarged right kidney, no left kidney Clotting disorder (CMS/HCC) (HCC) Deaf left ear Depression Drug abuse (CMS/HCC) (HCC) cocaine, marijuana, opiates Hypertension Infectious viral hepatitis Migraine Neck pain Opioid withdrawal (HCC) 02/24/2016 Thyroid disease Social History Tobacco Use Smoking status: Every Day Packs/day: 0.50 Years: 5.00 Pack years: 2.50 Types: Cigarettes Last attempt to quit: 06/06/2022 Years since quittin.3 Smokeless tobacco: Never Substance Use Topics Alcohol use: No Past Surgical History: Procedure Laterality Date SECTION (HISTORICAL) 02/24/2016 SECTION, LOW TRANSVERSE COLONOSCOPY 01/15/2020 Dr. Holman NECK SURGERY Left to remove cancer RECTAL SURGERY as a child UPPER GASTROINTESTINAL ENDOSCOPY 01/15/2020 Dr. Holman Family History Problem Relation Name Age of Onset Ulcerative colitis Paternal Grandfather High Blood Pressure Mother Machelle Thyroid disease Mother Machelle defects Mother Machelle Depression Mother Machelle Hypertension Mother Machelle Mental illness Mother Machelle Alcohol abuse Father Talon Cancer Maternal Grandfather Al Diabetes Mother's Sister Marleni Learning disabilities Sister Rosa Vision loss Sister Rosa Miscarriages / Stillbirths Sister Terra Stomach cancer Neg Hx Colon cancer Neg Hx Crohn's disease Neg Hx Objective BP (!) 130/90 Pulse 65 Temp 36.7 C (98 F) (Infrared) Ht 5' 9 (1.753 m) Wt 147 lb 6.4 oz (66.9 kg) BMI 21.77 kg/m Physical Exam Constitutional: Appearance: Normal appearance. HENT: Head: Normocephalic and atraumatic. Eyes: Extraocular Movements: Extraocular movements intact. Pulmonary: Effort: Pulmonary effort is normal. No respiratory distress. Musculoskeletal: Cervical back: Normal range of motion. Skin: Findings: Erythema and rash present. Comments: Multiple pink papules hands, arms, trunk, thighs, no rash on head or lower legs, all <1mm, blanching Neurological: General: No focal deficit present. Mental Status: She is alert and oriented to person, place, and time. Psychiatric: Mood and Affect: Mood normal. Behavior: Behavior normal. Data Reviewed and Summarized Labs: Imaging/Testing: Solomon Hi DO documented in this encounter [facility] 06-21-2022 History of Present illness Narrative Patient presents with nausea, vomiting, headache, weakness, and dizziness that hit her in a wave last night. She reports that she had the flu several weeks ago and recovered, but has been feeling off the last couple of days. She states that she still has a headache and some nausea, but is not feeling dizzy or flushed any more. She reports that she feels really fatigued now and is concerned due to her chronic conditions. She reports that she is in cancer remission from Hodgkin's lymphoma and has stage 4 kidney failure. She reports that she last had COVID last year. Patient denies cough, nasal congestion, fever/chills, night sweats, abdominal pain, diarrhea, muscle aches, chest pain, neck pain, and any rashes at this time. [facility] Work Phone: 05-27-2022 Note COVID 19 RESULT: SARS-CoV-2 (Agent of COVID-19) Not Detected by RT-PCR or equivalent method. This test has been authorized by FDA under an Emergency Use Authorization (EUA). INFLUENZA A PCR: Positive for Influenza A by RT-PCR INFLUENZA B PCR: Negative for Influenza B by RT-PCR RSV PCR: Negative for Respiratory Syncytial Virus (RSV) by PCR [facility] documented as of this encounter (statuses as of 03/18/2022) [facility] History of Past illness Narrative* Problem Noted Date Resolved Date Nausea and vomiting 03/27/2014 07/31/2018 Left flank pain 02/19/2014 07/31/2018 Overview: - In the setting of above - Will order Ketorolac (with caution) given opiates use Acute pyelonephritis 02/19/2014 07/31/2018 Overview: - Flank pain, positive UA, as well as leucocytosis, indicating likely pyelo - No evidence on CT scan - Caution given solitary kidney - Given cipro in the ED. IV Ceftriaxone will be continued documented as of this encounter (statuses as of 04/05/2022) [facility] History of Past illness Narrative* Problem Noted Date Resolved Date Nausea and vomiting 03/27/2014 07/31/2018 Left flank pain 02/19/2014 07/31/2018 Overview: - In the setting of above - Will order Ketorolac (with caution) given opiates use Acute pyelonephritis 02/19/2014 07/31/2018 Overview: - Flank pain, positive UA, as well as leucocytosis, indicating likely pyelo - No evidence on CT scan - Caution given solitary kidney - Given cipro in the ED. IV Ceftriaxone will be continued documented as of this encounter (statuses as of 05/25/2022) [facility] History of Past illness Narrative* Problem Noted Date Resolved Date Nausea and vomiting 03/27/2014 07/31/2018 Left flank pain 02/19/2014 07/31/2018 Overview: - In the setting of above - Will order Ketorolac (with caution) given opiates use Acute pyelonephritis 02/19/2014 07/31/2018 Overview: - Flank pain, positive UA, as well as leucocytosis, indicating likely pyelo - No evidence on CT scan - Caution given solitary kidney - Given cipro in the ED. IV Ceftriaxone will be continued documented as of this encounter (statuses as of 10/14/2022) [facility] History of Past illness Narrative* Problem Noted Date Diagnosed Date Resolved Date Nausea and vomiting 03/27/2014 07/31/19 19 Left flank pain 02/19/2014 07/31/2018 Overview: - In the setting of above - Will order Ketorolac (with caution) given opiates use Acute pyelonephritis 02/19/2014 019 Overview: - Flank pain, positive UA, as well as leucocytosis, indicating likely pyelo - No evidence on CT scan - Caution given solitary kidney - Given cipro in the ED. IV Ceftriaxone will be continued documented as of this encounter (statuses as of 02/08/2023) [facility] History of Past illness Narrative* Problem Noted Date Diagnosed Date Resolved Date Nausea and vomiting 03/27/2014 07/31/19 19 Left flank pain 02/19/2014 07/31/2018 Overview: - In the setting of above - Will order Ketorolac (with caution) given opiates use Acute pyelonephritis 02/19/2014 019 Overview: - Flank pain, positive UA, as well as leucocytosis, indicating likely pyelo - No evidence on CT scan - Caution given solitary kidney - Given cipro in the ED. IV Ceftriaxone will be continued documented as of this encounter (statuses as of 04/03/2023) [facility] History of Past illness Narrative* Problem Noted Date Diagnosed Date Resolved Date Nausea and vomiting 03/27/2014 07/31/19 19 Left flank pain 02/19/2014 07/31/2018 Overview: - In the setting of above - Will order Ketorolac (with caution) given opiates use Acute pyelonephritis 02/19/2014 019 Overview: - Flank pain, positive UA, as well as leucocytosis, indicating likely pyelo - No evidence on CT scan - Caution given solitary kidney - Given cipro in the ED. IV Ceftriaxone will be continued documented as of this encounter (statuses as of 04/04/2023) [facility] History of Past illness Narrative* Problem Noted Date Diagnosed Date Resolved Date Nausea and vomiting 03/27/2014 07/31/19 19 Left flank pain 02/19/2014 07/31/2018 Overview: - In the setting of above - Will order Ketorolac (with caution) given opiates use Acute pyelonephritis 02/19/2014 019 Overview: - Flank pain, positive UA, as well as leucocytosis, indicating likely pyelo - No evidence on CT scan - Caution given solitary kidney - Given cipro in the ED. IV Ceftriaxone will be continued documented as of this encounter (statuses as of 04/05/2023) [facility] History of Past illness Narrative* Problem Noted Date Diagnosed Date Resolved Date Nausea and vomiting 03/27/2014 07/31/19 19 Left flank pain 02/19/2014 07/31/2018 Overview: - In the setting of above - Will order Ketorolac (with caution) given opiates use Acute pyelonephritis 02/19/2014 019 Overview: - Flank pain, positive UA, as well as leucocytosis, indicating likely pyelo - No evidence on CT scan - Caution given solitary kidney - Given cipro in the ED. IV Ceftriaxone will be continued documented as of this encounter (statuses as of 04/07/2023) [facility] History of Past illness Narrative* Problem Noted Date Diagnosed Date Resolved Date Nausea and vomiting 03/27/2014 07/31/19 19 Left flank pain 02/19/2014 07/31/2018 Overview: - In the setting of above - Will order Ketorolac (with caution) given opiates use Acute pyelonephritis 02/19/2014 019 Overview: - Flank pain, positive UA, as well as leucocytosis, indicating likely pyelo - No evidence on CT scan - Caution given solitary kidney - Given cipro in the ED. IV Ceftriaxone will be continued documented as of this encounter (statuses as of 04/19/2023) [facility] History of Past illness Narrative* Problem Noted Date Diagnosed Date Resolved Date Nausea and vomiting 03/27/2014 07/31/19 19 Left flank pain 02/19/2014 07/31/2018 Overview: - In the setting of above - Will order Ketorolac (with caution) given opiates use Acute pyelonephritis 02/19/2014 019 Overview: - Flank pain, positive UA, as well as leucocytosis, indicating likely pyelo - No evidence on CT scan - Caution given solitary kidney - Given cipro in the ED. IV Ceftriaxone will be continued documented as of this encounter (statuses as of 04/21/2023) [facility] History of Past illness Narrative* Problem Noted Date Diagnosed Date Resolved Date Nausea and vomiting 03/27/2014 07/31/19 19 Left flank pain 02/19/2014 07/31/2018 Overview: - In the setting of above - Will order Ketorolac (with caution) given opiates use Acute pyelonephritis 02/19/2014 019 Overview: - Flank pain, positive UA, as well as leucocytosis, indicating likely pyelo - No evidence on CT scan - Caution given solitary kidney - Given cipro in the ED. IV Ceftriaxone will be continued documented as of this encounter (statuses as of 04/21/2023) [facility] History of Past illness Narrative* Problem Noted Date Diagnosed Date Resolved Date Nausea and vomiting 03/27/2014 07/31/19 19 Left flank pain 02/19/2014 07/31/2018 Overview: - In the setting of above - Will order Ketorolac (with caution) given opiates use Acute pyelonephritis 02/19/2014 019 Overview: - Flank pain, positive UA, as well as leucocytosis, indicating likely pyelo - No evidence on CT scan - Caution given solitary kidney - Given cipro in the ED. IV Ceftriaxone will be continued documented as of this encounter (statuses as of 04/21/2023) [facility] History of Past illness Narrative* Problem Noted Date Diagnosed Date Resolved Date Nausea and vomiting 03/27/2014 07/31/19 19 Left flank pain 02/19/2014 07/31/2018 Overview: - In the setting of above - Will order Ketorolac (with caution) given opiates use Acute pyelonephritis 02/19/2014 019 Overview: - Flank pain, positive UA, as well as leucocytosis, indicating likely pyelo - No evidence on CT scan - Caution given solitary kidney - Given cipro in the ED. IV Ceftriaxone will be continued documented as of this encounter (statuses as of 04/30/2023) [facility] History of Past illness Narrative* Problem Noted Date Diagnosed Date Resolved Date Nausea and vomiting 03/27/2014 07/31/19 19 Left flank pain 02/19/2014 07/31/2018 Overview: - In the setting of above - Will order Ketorolac (with caution) given opiates use Acute pyelonephritis 02/19/2014 019 Overview: - Flank pain, positive UA, as well as leucocytosis, indicating likely pyelo - No evidence on CT scan - Caution given solitary kidney - Given cipro in the ED. IV Ceftriaxone will be continued documented as of this encounter (statuses as of 04/30/2023) [facility] History of Past illness Narrative* Problem Noted Date Diagnosed Date Resolved Date Nausea and vomiting 03/27/2014 07/31/19 19 Left flank pain 02/19/2014 07/31/2018 Overview: - In the setting of above - Will order Ketorolac (with caution) given opiates use Acute pyelonephritis 02/19/2014 019 Overview: - Flank pain, positive UA, as well as leucocytosis, indicating likely pyelo - No evidence on CT scan - Caution given solitary kidney - Given cipro in the ED. IV Ceftriaxone will be continued documented as of this encounter (statuses as of 05/17/2023) [facility] History of Past illness Narrative* Problem Noted Date Diagnosed Date Resolved Date Nausea and vomiting 03/27/2014 07/31/19 19 Left flank pain 02/19/2014 07/31/2018 Overview: - In the setting of above - Will order Ketorolac (with caution) given opiates use Acute pyelonephritis 02/19/2014 019 Overview: - Flank pain, positive UA, as well as leucocytosis, indicating likely pyelo - No evidence on CT scan - Caution given solitary kidney - Given cipro in the ED. IV Ceftriaxone will be continued documented as of this encounter (statuses as of 05/25/2023) [facility] History of Past illness Narrative* Problem Noted Date Diagnosed Date Resolved Date Nausea and vomiting 03/27/2014 07/31/19 19 Left flank pain 02/19/2014 07/31/2018 Overview: - In the setting of above - Will order Ketorolac (with caution) given opiates use Acute pyelonephritis 02/19/2014 019 Overview: - Flank pain, positive UA, as well as leucocytosis, indicating likely pyelo - No evidence on CT scan - Caution given solitary kidney - Given cipro in the ED. IV Ceftriaxone will be continued documented as of this encounter (statuses as of 05/29/2023) [facility] History of Past illness Narrative* Problem Noted Date Diagnosed Date Resolved Date Nausea and vomiting 03/27/2014 07/31/19 19 Left flank pain 02/19/2014 07/31/2018 Overview: - In the setting of above - Will order Ketorolac (with caution) given opiates use Acute pyelonephritis 02/19/2014 019 Overview: - Flank pain, positive UA, as well as leucocytosis, indicating likely pyelo - No evidence on CT scan - Caution given solitary kidney - Given cipro in the ED. IV Ceftriaxone will be continued documented as of this encounter (statuses as of 06/02/2023) [facility] History of Past illness Narrative* Problem Noted Date Diagnosed Date Resolved Date Nausea and vomiting 03/27/2014 07/31/19 19 Left flank pain 02/19/2014 07/31/2018 Overview: - In the setting of above - Will order Ketorolac (with caution) given opiates use Acute pyelonephritis 02/19/2014 019 Overview: - Flank pain, positive UA, as well as leucocytosis, indicating likely pyelo - No evidence on CT scan - Caution given solitary kidney - Given cipro in the ED. IV Ceftriaxone will be continued documented as of this encounter (statuses as of 06/07/2023) [facility] History of Past illness Narrative* Problem Noted Date Diagnosed Date Resolved Date Nausea and vomiting 03/27/2014 07/31/19 19 Left flank pain 02/19/2014 07/31/2018 Overview: - In the setting of above - Will order Ketorolac (with caution) given opiates use Acute pyelonephritis 02/19/2014 019 Overview: - Flank pain, positive UA, as well as leucocytosis, indicating likely pyelo - No evidence on CT scan - Caution given solitary kidney - Given cipro in the ED. IV Ceftriaxone will be continued documented as of this encounter (statuses as of 06/09/2023) [facility] History of Past illness Narrative* Problem Noted Date Diagnosed Date Resolved Date Nausea and vomiting 03/27/2014 07/31/19 19 Left flank pain 02/19/2014 07/31/2018 Overview: - In the setting of above - Will order Ketorolac (with caution) given opiates use Acute pyelonephritis 02/19/2014 019 Overview: - Flank pain, positive UA, as well as leucocytosis, indicating likely pyelo - No evidence on CT scan - Caution given solitary kidney - Given cipro in the ED. IV Ceftriaxone will be continued documented as of this encounter (statuses as of 08/08/2023) [facility] note* Diagnosis Hydronephrosis, unspecified hydronephrosis type- Primary Chronic renal failure, stage 4 (severe) (HCC) documented in this encounter [facility] note* Diagnosis Hydronephrosis, unspecified hydronephrosis type Chronic renal failure, stage 4 (severe) (HCC) documented in this encounter [facility] note* Diagnosis Hydronephrosis, unspecified hydronephrosis type- Primary documented in this encounter [facility] note* Diagnosis Rash and nonspecific skin eruption- Primary Rash and other nonspecific skin eruption Acquired hypothyroidism Unspecified hypothyroidism Stage 3b chronic kidney disease (HCC) [facility] Diagnosis Acquired hypothyroidism Unspecified hypothyroidism documented in this encounter [facility] note* Diagnosis Rash- Primary Rash and other nonspecific skin eruption [facility]* Diagnosis Orthostatic hypotension- Primary Stage 3b chronic kidney disease (HCC) Shortness of breath Idiopathic peripheral neuropathy Unspecified hereditary and idiopathic peripheral neuropathy History of Hodgkin's lymphoma [facility]* Diagnosis Orthostatic hypotension- Primary Stage 3b chronic kidney disease (HCC) Shortness of breath Idiopathic peripheral neuropathy Unspecified hereditary and idiopathic peripheral neuropathy History of Hodgkin's lymphoma [facility]* Diagnosis Moderate persistent asthma without complication- Primary [facility] Diagnosis Chronic migraine without aura without status migrainosus, not intractable [facility]* Diagnosis Shortness of breath History of Hodgkin's lymphoma [facility] Diagnosis Moderate persistent asthma without complication- Primary Acquired hypothyroidism Unspecified hypothyroidism Chronic migraine without aura without status migrainosus, not intractable Stage 3b chronic kidney disease (HCC) 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 [facility] Diagnosis Encounter for removal and reinsertion of Nexplanon- Primary Recurrent HSV (herpes simplex virus) Herpes simplex without mention of complication Bipolar 1 disorder (HCC) Bipolar I disorder, most recent episode (or current) unspecified PTSD (post-traumatic stress disorder) Posttraumatic stress disorder Anxiety Anxiety state, unspecified [facility] New daily persistent headache- Primary Intractable chronic migraine without aura and without status migrainosus Chronic migraine without aura, with intractable migraine, so stated, without mention of status migrainosus Obstructive sleep apnea Obstructive sleep apnea (adult) (pediatric) [facility] Diagnosis Severe persistent asthma without complication- Primary Interstitial pulmonary disease (HCC) Postinflammatory pulmonary fibrosis Hodgkin lymphoma of lymph nodes of multiple regions, unspecified Hodgkin lymphoma type (HCC) [facility] Diagnosis New daily persistent headache [facility] Diagnosis Interstitial pulmonary disease (HCC) Postinflammatory pulmonary fibrosis Hodgkin lymphoma of lymph nodes of multiple regions, unspecified Hodgkin lymphoma type (HCC) [facility] Diagnosis Acute cystitis without hematuria- Primary Acute cystitis [facility] Diagnosis Severe persistent asthma without complication- Primary Interstitial pulmonary disease (HCC) Postinflammatory pulmonary fibrosis Hodgkin lymphoma of lymph nodes of multiple regions, unspecified Hodgkin lymphoma type (HCC) [facility] Attachments The following attachments cannot be sent through Care Everywhere. * Viral Exanthem Discharge Instructions ([place]ian) [facility] Attachments The following attachments cannot be sent through Care Everywhere. * Orthostatic Hypotension ([place]ian) [facility] Diagnostic Procedure Only (Routine) - Authorized Specialty Diagnoses / Procedures Referred By Kylah t Referred To Contact MOLECULAR & FUNCTIONAL IMAGING Diagnoses Hydronephrosis, unspecified hydronephrosis type Chronic renal failure, stage 4 (severe) (HCC) Procedures NM RENAL FLOW/FXN W PHARM KIDNEY IMG MORPHOLOGY VASCULAR FLOW 1 W/RX Talib Sharpe Jr., MD [address] [place] [address] Molecular & Functional Imaging [address] [place] [address] Referral ID Status Reason Start Date Expiration Date Visits Requested Visits Authorized [id number] Authorized Auto-Generat ed Referral 03/16/2022 04/15/2023 1 1 [facility] for referral (narrative)* Diagnostic Procedure Only (Routine) - Closed Specialty Diagnoses / Procedures Referred By Kylah t Referred To Contact MOLECULAR & FUNCTIONAL IMAGING Diagnoses Hydronephrosis, unspecified hydronephrosis type Chronic renal failure, stage 4 (severe) (HCC) Procedures NM RENAL FLOW/FXN W PHARM KIDNEY IMG MORPHOLOGY VASCULAR FLOW 1 W/[place] [address] [place] [id number] Molecular & Functional Imaging [address] [place] [address] Referral ID Status Reason Start Date Expiration Date V isits Requested Visits Authorized [id number] Closed Auto-Generate d Referral 03/16/2022 04/15/2023 1 1 [facility] for referral (narrative)* Diagnostic Procedure Only (Routine) - Authorized Specialty Diagnoses / Procedures Referred By Kylah montana Referred To Contact MOLECULAR & FUNCTIONAL IMAGING Diagnoses Hydronephrosis, unspecified hydronephrosis type Procedures NM RENAL FLOW/FXN W PHARM KIDNEY IMG MORPHOLOGY VASCULAR FLOW 1 W/RX Talib Sharpe Jr., MD [address] [place] [id number] Molecular & Functional Imaging [address] [place] [address] Referral ID Status Reason Start Date Expiration Date Visits Requested Visits Authorized [id number] Authorized Auto-Generat ed Referral 2 06/24/2023 1 1 [facility] for referral (narrative)* Consultation (Routine) - Pending Review Specialty Diagnoses / Procedures Referred By Kylah montana Referred To Contact Nephrology Diagnoses Stage 3b chronic kidney disease (HCC) Renal agenesis Procedures [facility] OFFICE/OUTPATIENT NEW HIGH MDM 60-74 MINUTES Solomon Hi, DO [address] [place] [address] Kassie Adame MD [address], [place] [address] Referral ID Status Reason Start Date Expiration Date Visits Requested Visits Authorized [id number] Pending Review Specialty Services Required 03/03/2023 03/02/2024 1 1 * Consultation (Routine) - Pending Review Specialty Diagnoses / Procedures Referred By Contac t Referred To Contact Pulmonology Diagnoses Moderate persistent asthma without complication Procedures [facility] OFFICE/OUTPATIENT NEW HIGH MDM 60-74 MINUTES Solomon Hi DO [address] [place] [address] [facility] [address] [place], [place] [id number] Referral ID Status Reason Start Date Expiration Date Visits Requested Visits Authorized [id number] Pending Review Specialty Services Required 03/03/2023 03/02/2024 1 1 [facility] Outpatient Procedure (Routine) - Pending Review Specialty Diagnoses / Procedures Referred By Contac t Referred To Contact [facility] Diagnoses Encounter for removal and reinsertion of Nexplanon Procedures NEXPLANON REMOVAL REMOVAL NON-BIODEGRADABLE DRUG DELIVERY IMPLANT Mabel Oshea APRN.CNM [address] [place] [address] Formerly [facility] [address] [place] [address] Referral ID Status Reason Start Date Expiration Date Visits Requested Visits Authorized [id number] Pending Review Auto-Generat ed Referral 04/03/2023 04/02/2024 1 1 * Outpatient Procedure (Routine) - Pending Review Specialty Diagnoses / Procedures Referred By Contac t Referred To Contact [facility] Diagnoses Encounter for removal and reinsertion of Nexplanon Procedures NEXPLANON INSERTION ETONOGESTREL IMPLANT SYSTEM INSERT DRUG IMPLANT DEVICE Mabel Oshea APRN.CNM [address] [place] [address] Formerly [facility] [address] [place] [address] Referral ID Status Reason Start Date Expiration Date Visits Requested Visits Authorized [id number] Pending Review Auto-Generat ed Referral 04/03/2023 04/02/2024 1 1 [facility] for referral (narrative)* Outpatient Procedure (Routine) - Authorized Specialty Diagnoses / Procedures [facility] RESPIRATORY ROY Diagnoses Severe persistent asthma without complication Procedures SPIROMETRY BASELINE ONLY SPMTRY W/VC EXPIRATORY BELINDA W/WO MXML VOL VNTJ Aneta Castillo MD [address] [place] [address] [facility] [address] [place] [address] Referral ID Status Reason Start Date Expiration Date Visits Requested Visits Authorized [id number] Authorized Auto-Generat ed Referral 3 05/18/2024 1 1 * Outpatient Procedure (Routine) - Authorized Specialty Diagnoses / Procedures [facility] To [facility] Diagnoses Severe persistent asthma without complication Procedures NITRIC OXIDE, EXHALED NITRIC OXIDE GAS DETERMINATION Aneta Castillo MD [address] [place] [address] [id number] [place] [address] Referral ID Status Reason Start Date Expiration Date Visits Requested Visits Authorized [id number] Authorized Auto-Generat ed Referral 3 05/18/2024 1 1 * MRI/CT (Routine) - Authorized Specialty Diagnoses / Procedures Referred By Contstevie t Referred To Contact CT IMAGING Diagnoses Interstitial pulmonary disease (HCC) Hodgkin lymphoma of lymph nodes of multiple regions, unspecified Hodgkin lymphoma type (HCC) Procedures CT CHEST WO IVCON DIAGNOSTIC COMPUTED TOMOGRAPHY THORAX W/O Aneta Rose MD [address] [place] [address] [place] [address] Referral ID Status Reason Start Date Expiration Date Visits Requested Visits Authorized [id number] Authorized Auto-Generat ed Referral 3 06/18/2023 1 1 [facility] for visit Narrative* Diagnostic Procedure Only (Routine) - Closed Specialty Diagnoses / Procedures Referred By Kylah montana Referred To Contact MOLECULAR [facility] FUNCTIONAL IMAGING Diagnoses Hydronephrosis, unspecified hydronephrosis type Chronic renal failure, stage 4 (severe) (HCC) Procedures NM RENAL FLOW/FXN W PHARM KIDNEY IMG MORPHOLOGY VASCULAR FLOW 1 W/RX Talib Sharpe Jr., MD [address] [place] [address] [facility] [address] [place] [address] Referral ID Status Reason Start Date Expiration Date V isits Requested Visits Authorized [id number] Closed Auto-Generate d Referral 03/16/2022 04/15/2023 1 1 [facility] Summary Purpose Family History No Family History Records FoundNo Family History Records FoundNo Family History Records FoundNo Family History Records FoundNo Family History Records FoundNo Family History Records FoundNo Family History Records FoundNo Family History Records FoundNo Family History Records FoundNo Family History Records FoundNo Family History Records FoundNo Family History Records Found Advance Directives No Advanced Directives Records FoundDocuments on File Type Date Recorded Patient Cotton Chopper Expl anation Advance Directives and Livin g Will Advance Directives and Livin g Will 03/03/2015 5:32 PM Power of Portable Machine Sander Latest Code Status on File Code Status Date Activated Date Inactivated Comments Full Code 04/28/2016 1:43 PM 04/30/2016 5:02 PM Full Code 02/24/2016 2:28 PM 02/29/2016 4:49 PM Full Code 02/24/2016 12:27 PM 02/24/2016 2:28 PM Full Code 11/09/2015 4:30 AM 11/09/2015 6:51 AM Full Code 07/20/2015 12:17 AM 07/20/2015 3:09 PM Documents on File Type Date Recorded Patient Cotton Chopper Expl anation Advance Directives and Livin g Will Advance Directives and Livin g Will 03/03/2015 5:32 PM Power of Portable Machine Sander Latest Code Status on File Code Status Date Activated Date Inactivated Comments Full Code 01/15/2020 1:03 PM Full Code 04/28/2016 1:43 PM 04/30/2016 5:02 PM Full Code 02/24/2016 2:28 PM 02/29/2016 4:49 PM Full Code 02/24/2016 12:27 PM 02/24/2016 2:28 PM Full Code 11/09/2015 4:30 AM 11/09/2015 6:51 AM Reason for Referral Status Reason Specialty Diagnoses / Procedures Re ferred By Contact Referred To Contact Authorized Radiology Diagnoses Hydronephrosis, unspecified hydronephrosis type Procedures NM Kidney W Flow and Function W Pharmacological Intervention Rodri Francois MD [address] [place] [address] Specialty Diagnoses / Procedures Referred By Contac t Referred To Contact Cardiology Diagnoses Shortness of breath History of Hodgkin's lymphoma Procedures Transthoracic echocardiogram (TTE) complete with contrast, bubble, strain, and 3D PRN VA ECHO TTHRC R-T 2D W/WOM-MODE COMPL SPEC&COLR D VA TTE W OR WO FOL WCON,DOPPLER Solomon Hi DO [address] [place] [address] Referral ID Status Reason Start Date Expiration Date Visits Requested Visits Authorized [id number] Pending Review Perform Procedure 10/25/2022 04/23/2023 1 1 Specialty Diagnoses / Procedures Referred By Contac t Referred To Contact Neurology Diagnoses Orthostatic hypotension Idiopathic peripheral neuropathy History of Hodgkin's lymphoma Procedures VA OFFICE/OUTPATIENT NEW HIGH MDM 60-74 MINUTES Solomon Hi DO [address] [place] [address] [facility] [address] [place] [address] Referral ID Status Reason Start Date Expiration Date Visits Requested Visits Authorized [id number] Pending Review Specialty Services Required 10/25/2022 10/25/2023 1 1 Specialty Diagnoses / Procedures Referred By Contac t Referred To Contact Nephrology Diagnoses Stage 3b chronic kidney disease (HCC) History of Hodgkin's lymphoma Procedures VA OFFICE/OUTPATIENT NEW HIGH MDM 60-74 MINUTES Solomon Hi DO [address] [place] [address] Vianca Flaherty MD [address] [place] [address] Referral ID Status Reason Start Date Expiration Date Visits Requested Visits Authorized [id number] Pending Review Specialty Services Required 10/25/2022 10/25/2023 1 1 Specialty Diagnoses / Procedures Referred By Contac t Referred To Contact Diagnoses Shortness of breath Procedures Complete PFT pre and post bronchodilator Solomon Hi DO [address] [place] [address] Referral ID Status Reason Start Date Expiration Date V isits Requested Visits Authorized [id number] Incomplete 10/25/2022 04/23/2023 1 1 Specialty Diagnoses / Procedures Referred By Contac t Referred To Contact Pulmonology Diagnoses Shortness of breath Procedures Complete PFT pre and post bronchodilator Solomon Hi DO [address] [place] [address] [address] [facility] [address] [place] [address] Referral ID Status Reason Start Date Expiration Date V isits Requested Visits Authorized [id number] Authorized 10/25/2022 04/23/2023 1 1 Referral ID Status Reason Start Date Expiration Date V isits Requested Visits Authorized [id number] Closed Perform Procedure 10/25/2022 04/23/2023 1 1 Specialty Diagnoses / Procedures Referred By Yumikoac t Referred To Contact Neurology Diagnoses Intractable chronic migraine without aura and without status migrainosus Procedures REFERRAL TO GENERAL NEUROLOGY BOTOX OFFICE/OUTPATIENT NEW HIGH MDM 60-74 MINUTES Bethany Gil PA-C [address] [place] [address] Referral ID Status Reason Start Date Expiration Date Visits Requested Visits Authorized [id number] Authorized PCP Requested Referral 3 04/04/2024 1 1 Specialty Diagnoses / Procedures Referred By Yumikoac t Referred To Contact MR IMAGING Diagnoses New daily persistent headache Procedures MRI BRAIN WO IVCON MRI BRAIN BRAIN STEM W/O CONTRAST MATERIAL Bethany Gil PA-C [address] [place] [address] [facility] [place] [address] Referral ID Status Reason Start Date Expiration Date Visits Requested Visits Authorized [id number] Authorized Auto-Generat ed Referral 3 06/04/2023 1 1 Specialty Diagnoses / Procedures Referred By Kylah t Referred To [facility] Diagnoses Obstructive sleep apnea Procedures HOME SLEEP APNEA TEST (HSAT) SLEEP STD AIRFLOW HRT RATE&O2 SAT EFFORT UNATT Bethany Gil PA-C [address] [place] [address] [facility] [address] [place] [address] Referral ID Status Reason Start Date Expiration Date Visits Requested Visits Authorized [id number] Authorized Auto-Generat ed Referral 3 04/04/2024 1 1 Referral ID Status Reason Start Date Expiration Date V isits Requested Visits Authorized [id number] Closed Auto-Generate d Referral 04/05/2023 06/04/2023 1 1 Specialty Diagnoses / Procedures Referred By Yumikoac t Referred To Contact CT IMAGING Diagnoses Interstitial pulmonary disease (HCC) Hodgkin lymphoma of lymph nodes of multiple regions, unspecified Hodgkin lymphoma type (HCC) Procedures CT CHEST WO IVCON DIAGNOSTIC COMPUTED TOMOGRAPHY THORAX W/O Aneta Rose MD [address] [place] [address] [place] [address] Referral ID Status Reason Start Date Expiration Date V isits Requested Visits Authorized [id number] Closed Auto-Generate d Referral 04/19/2023 06/18/2023 1 1 History of Present Illness * Beatrice Gonzalez, RN - 12/06/2019 1:00 PM EDT Pt in [facility] for Lasix renal scan. Procedure explained to pt. History & allergies reviewed with pt.Pt does not have a history of CHF. Pt given 545cc .45NS IV fluid over 45 min. Lung sounds CTA before and after fluid bolus. Pt given 40mg IV lasix after completing first scan. Tolerated well documented in this encounter Assessments Diagnosis Hydronephrosis, unspecified hydronephrosis type Discharge Instructions * Instructions* Solomon Castlilo I., RN - 01/15/2020 Upper GI Endoscopy: What to expect at home ACTIVITY: DO NOT DRIVE, OPERATE MACHINERY, OR DRINK ANY ALCOHOL TODAY. Avoid making critical decisions, signing legal documents, or performing any activity that requires alertness for the rest of the day. You may be bloated or have gas pains since air was introduced into the stomach for the procedure. You may need to pass the gas throughout the day. You may experience a mild sore throat. You may use an loma-sbx-nldzjna chloraseptic spray, gargle with warm salt water, or use throat lozenges. Notify your physician if this feeling lasts more than 48 hours. Rest the remainder of the day. You may resume normal activity tomorrow. You may return to work tomorrow. DIET: You may resume a normal diet unless notified or recommended by your physician. You may be eager to eat a large meal after fasting, but it is a good idea to start with light mealsand ease into solid foods the first day. (*) If your stomach is upset, try clear liquids and bland, low-fat foods like plain toast or rice. Drink plenty of fluids for the first 24 hours (unless your physician states otherwise). MEDICATION: Resume your normal home medications unless notified or recommended by your physician. If you take blood thinners (such as Coumadin, Eliquis, Plavix, Aspirin, etc.) or anti-inflammatory medications (Advil, Motrin, Aleve, etc.), ask your physician when you may resume these medications. FOLLOW-UP APPOINTMENT: Follow up with or call your physician as needed. When to call for help: Call your doctor IMMEDIATELY or seek medical care if you experience: ? Severe pain or vomiting ? Coughing up more than a teaspoon of blood ? You pass a large amount of tar-like stools ? Your belly is swollen and firm with severe pain ? A fever greater than 101 degrees ? Redness or swelling of arm from the IV site for more than 48 hours ? Sudden onset of chest pain or shortness of breath ? If you become extremely dizzy or pass out (lose consciousness) IF YOU ARE UNABLE TO REACH YOUR PHYSICIAN GO TO NEAREST EMERGENCY DEPARTMENT Colonoscopy: What to expect at home ACTIVITY: DO NOT DRIVE, OPERATE MACHINERY, OR DRINK ANY ALCOHOL TODAY. Avoid making critical decisions, signing legal documents, or performing any activity that requires alertness for the rest of the day. You may be bloated or have gas pains since air was introduced into the colon for the procedure. Youmay need to pass the gas throughout the day. You may experience a small amount of rectal bleeding; this can be normal after your colonoscopy. Notify your physician if the bleeding is enough to saturate your clothes. Rest the remainder of the day. You may resume normal activity tomorrow. You may return to work tomorrow. DIET: You may resume a normal diet unless notified or recommended by your physician. You may be eager to eat a large meal after fasting, but it is a good idea to start with light mealsand ease into solid foods the first day. (*) If your stomach is upset, try clear liquids and bland, low-fat foods like plain toast or rice. Drink plenty of fluids for the first 24 hours (unless your physician states otherwise). MEDICATION: Resume your normal home medications unless notified or recommended by your physician. If you take blood thinners (such as Coumadin, Eliquis, Plavix, Aspirin, etc.) or anti-inflammatory medications (Advil, Motrin, Aleve, etc.), ask your physician when you may resume these medications. FOLLOW-UP APPOINTMENT: Follow up with or call your physician as needed. When to call for help: Call your doctor IMMEDIATELY or seek medical care if you experience: ? Severe pain or vomiting ? A large amount (filling the toilet) of maroon, bloody stools or tar-like stools ? Your belly is swollen and firm with severe pain ? A fever greater than 101 degrees ? Redness or swelling of arm from the IV site for more than 48 hours ? Sudden onset of chest pain or shortness of breath ? If you become extremely dizzy or pass out (lose consciousness) IF YOU ARE UNABLE TO REACH YOUR PHYSICIAN GO TO NEAREST EMERGENCY DEPARTMENT documented in this encounter Chief Complaint nausea/vomiting, headache Health Concerns Infection Onset Date Last Indicated Resolved Time COVID-19 Rule-Out 05/26/2022 05/26/2022 05/26/2022 11:39 PM EST Influenza 05/26/2022 05/26/2022 06/02/2022 8:51 PM EST Additional Source Comments INFORMATION SOURCE (unrecogn ized section and content) DATE CREATED AUTHOR AUTHOR'S ORGANIZ ATION 12/13/2017 [facility] DATE CREATED AUTHOR AUTHOR'S ORGANIZ ATION 12/23/2017 [facility] DATE CREATED AUTHOR AUTHOR'S ORGANIZ ATION 01/22/2020 [facility] DATE CREATED AUTHOR AUTHOR'S ORGANIZ ATION 07/20/2020 [facility] DATE CREATED AUTHOR AUTHOR'S ORGANIZ ATION 03/11/2021 [facility] DATE CREATED AUTHOR AUTHOR'S ORGANIZ ATION 07/20/2021 [facility] DATE CREATED AUTHOR AUTHOR'S ORGANIZ ATION 06/23/2022 [facility] DATE CREATED AUTHOR AUTHOR'S ORGANIZ ATION 06/23/2022 [facility] DATE CREATED AUTHOR AUTHOR'S ORGANIZ ATION 02/09/2023 [facility] DATE CREATED AUTHOR AUTHOR'S ORGANIZ ATION 08/10/2023 [facility] DATE CREATED AUTHOR AUTHOR'S ORGANIZ ATION 08/10/2023 [facility] Source Comments (unrecognize d section and content) In the event this informatio n is protected by the Federal Confidentiality of Alcohol and Drug Abuse Patient Records regulations: The Federal rules restrict any use of the information to criminally investigate or prosecute any alcohol or drug abuse patient.[facility] the event this information is protected by the Federal Confidentiality of Alcohol and Drug Abuse Patient Records regulations: The Federal rules restrict any use of the information to criminally investigate or prosecute any alcohol or drug abuse patient.[facility] the event this information is protected by the Federal Confidentiality of Alcohol and Drug Abuse Patient Records regulations: The Federal rules restrict any use of the information to criminally investigate or prosecute any alcohol or drug abuse patient.[facility] the event this information is protected by the Federal Confidentiality of Alcohol and Drug Abuse Patient Records regulations: The Federal rules restrict any use of the information to criminally investigate or prosecute any alcohol or drug abuse patient.[facility] the event this information is protected by the Federal Confidentiality of Alcohol and Drug Abuse Patient Records regulations: The Federal rules restrict any use of the information to criminally investigate or prosecute any alcohol or drug abuse patient.[facility] the event this information is protected by the Federal Confidentiality of Alcohol and Drug Abuse Patient Records regulations: The Federal rules restrict any use of the information to criminally investigate or prosecute any alcohol or drug abuse patient.[facility] the event this information is protected by the Federal Confidentiality of Alcohol and Drug Abuse Patient Records regulations: The Federal rules restrict any use of the information to criminally investigate or prosecute any alcohol or drug abuse patient.[facility] the event this information is protected by the Federal Confidentiality of Alcohol and Drug Abuse Patient Records regulations: The Federal rules restrict any use of the information to criminally investigate or prosecute any alcohol or drug abuse patient.[facility] the event this information is protected by the Federal Confidentiality of Alcohol and Drug Abuse Patient Records regulations: The Federal rules restrict any use of the information to criminally investigate or prosecute any alcohol or drug abuse patient.[facility] the event this information is protected by the Federal Confidentiality of Alcohol and Drug Abuse Patient Records regulations: The Federal rules restrict any use of the information to criminally investigate or prosecute any alcohol or drug abuse patient.[facility] the event this information is protected by the Federal Confidentiality of Alcohol and Drug Abuse Patient Records regulations: The Federal rules restrict any use of the information to criminally investigate or prosecute any alcohol or drug abuse patient.[facility] the event this information is protected by the Federal Confidentiality of Alcohol and Drug Abuse Patient Records regulations: The Federal rules restrict any use of the information to criminally investigate or prosecute any alcohol or drug abuse patient.[facility] the event this information is protected by the Federal Confidentiality of Alcohol and Drug Abuse Patient Records regulations: The Federal rules restrict any use of the information to criminally investigate or prosecute any alcohol or drug abuse patient.[facility] the event this information is protected by the Federal Confidentiality of Alcohol and Drug Abuse Patient Records regulations: The Federal rules restrict any use of the information to criminally investigate or prosecute any alcohol or drug abuse patient.[facility] the event this information is protected by the Federal Confidentiality of Alcohol and Drug Abuse Patient Records regulations: The Federal rules restrict any use of the information to criminally investigate or prosecute any alcohol or drug abuse patient.[facility] the event this information is protected by the Federal Confidentiality of Alcohol and Drug Abuse Patient Records regulations: The Federal rules restrict any use of the information to criminally investigate or prosecute any alcohol or drug abuse patient.[facility] the event this information is protected by the Federal Confidentiality of Alcohol and Drug Abuse Patient Records regulations: The Federal rules restrict any use of the information to criminally investigate or prosecute any alcohol or drug abuse patient.[facility] the event this information is protected by the Federal Confidentiality of Alcohol and Drug Abuse Patient Records regulations: The Federal rules restrict any use of the information to criminally investigate or prosecute any alcohol or drug abuse patient.[facility] HospitalIn the event this information is protected by the Federal Confidentiality of Alcohol and Drug Abuse Patient Records regulations: The Federal rules restrict any use of the information to criminally investigate or prosecute any alcohol or drug abuse patient.[facility] HospitalIn the event this information is protected by the Federal Confidentiality of Alcohol and Drug Abuse Patient Records regulations: The Federal rules restrict any use of the information to criminally investigate or prosecute any alcohol or drug abuse patient.[facility]In the event this information is protected by the Federal Confidentiality of Alcohol and Drug Abuse Patient Records regulations: The Federal rules restrict any use of the information to criminally investigate or prosecute any alcohol or drug abuse patient.[facility] HospitalIn the event this information is protected by the Federal Confidentiality of Alcohol and Drug Abuse Patient Records regulations: The Federal rules restrict any use of the information to criminally investigate or prosecute any alcohol or drug abuse patient.[facility] Reason for Visit (unrecogniz ed section and content) Reason Comments Orders Reason Comments Rash States needs refill on meds Reason Onset Date Comments results 10/13/2022 Reason Onset Date Comments Rash 10/12/2022 Reason Comments Rash Rash all over body. Started on hands. Patches on knees and elbows. Denies changes in soaps and fragrances. Seen Dr. Hi 2 days ago for this but it wasn't as bad. Did say she missed placed her thyroid medication 2 weeks ago but has never had an issue like this. States they dont itch just hurts Headache Headaches started a day later. States she is taking sumatriptan. States she took 4 pills in 2 days. Reason Onset Date Comments Rash 10/13/2022 Reason Comments Patient Question Reason Onset Date Comments Chest Pain 10/21/2022 Reason Comments ER Follow-up From [facility] in [place] on 10/21/22 re: Chest Pain Reason Comments Med Refill Specialty Diagnoses / Procedures Referred By [facility] Referred To Contact Cardiology Diagnoses Shortness of breath History of Hodgkin's lymphoma Procedures Transthoracic echocardiogram (TTE) complete with contrast, bubble, strain, and 3D PRN [facility] ECHO TTHRC R-T 2D W/WOM-MODE COMPL SPEC&COLR D VA TTE W OR WO FOL WCON,DOPPLER Solomon Hi, DO [address] [place] [address] Referral ID Status Reason Start Date Expiration Date V isits Requested Visits Authorized [id number] Closed Perform Procedure 10/25/2022 04/23/2023 1 1 Reason Comments 6 Month Follow-up Appt on Hypothyroidi sm, Migraine discuss ECHO Reason Comments Discussion Reason Comments bh consult Reason Comments New Patient Reason Comments New Botox Referral Submitted Reason Comments New Patient Shortness of Breath Reason Comments Insurance Authorization Reason Comments Results Chest CT Specialty Diagnoses / Procedures Referred By [facility] Referred To Contact MR IMAGING Diagnoses New daily persistent headache Procedures MRI BRAIN WO IVCON MRI BRAIN BRAIN STEM W/O CONTRAST MATERIAL Bethany Gil PA-C [address] [id number] Mr Imaging [id number] Referral ID Status Reason Start Date Expiration Date V isits Requested Visits Authorized [id number] Closed Auto-Generate d Referral 04/05/2023 06/04/2023 [address] Specialty Diagnoses / Procedures Referred By [facility] Referred To Contact CT IMAGING Diagnoses Interstitial pulmonary disease (HCC) Hodgkin lymphoma of lymph nodes of multiple regions, unspecified Hodgkin lymphoma type (HCC) Procedures CT CHEST WO IVCON DIAGNOSTIC COMPUTED TOMOGRAPHY THORAX W/O Aneta Rose MD [address] [place] [address] [place] [address] Referral ID Status Reason Start Date Expiration Date V isits Requested Visits Authorized [id number] Closed Auto-Generate d Referral 04/19/2023 06/18/2023 1 1 Reason Comments Medication Authorization Reason Onset Date Comments Refill Request 05/24/2023 Reason Comments Patient Update Reason Onset Date Comments Med Refill 05/31/2023 Reason Comments UTI Reason Comments Headache Reason Comments Asthma Reason Onset Date Comments Forms/questionnaires 05/22/2023 Reason Onset Date Comments no contact 05/31/2023 Reason Onset Date Comments Nausea 07/21/2023 Reason Comments Appointment Reason Onset Date Comments Hospitalized 08/08/2023 Care Teams (unrecognized sec tion and content) Unit Secretary Relationship Specialty Start Date End Date Solomon Hi, DO [address] [place] [phone] PCP - General Family Medicine 03/22/22 Unit Secretary Relationship Specialty Start Date End Date Solomon Hi, DO [address] [place] [phone] PCP - General Family Medicine 03/22/22 Unit Secretary Relationship Specialty Start Date End Date Solomon Hi DO [address] [place] [address] PCP - General 03/07/22 Unit Secretary Relationship Specialty Start Date End Date MarcelorishiSolomon DO [address] [place] [id number] PCP - General 03/07/22 Unit Secretary Relationship Specialty Start Date End Date Solomon Hi DO [address] [place] [address] PCP - General 03/07/22 Unit Secretary Relationship Specialty Start Date End Date Solomon Hi DO [address] [place] [address] PCP - General 03/07/22 Unit Secretary Relationship Specialty Start Date End Date Solomon Hi DO [address] [place] [address] PCP - General Family Medicine 03/22/22 Unit Secretary Relationship Specialty Start Date End Date Solomon Hi DO [address] [place] [address] PCP - General 03/07/22 Unit Secretary Relationship Specialty Start Date End Date Solomon Hi DO [address] [place] [address] PCP - General 03/07/22 Unit Secretary Relationship Specialty Start Date End Date Solomon Hi DO [address] [place] [address] PCP - General 03/07/22 Unit Secretary Relationship Specialty Start Date End Date Solomon Hi DO [address] [place] [address] PCP - General 03/07/22 Unit Secretary Relationship Specialty Start Date End Date Solomon Hi DO [address] [facility] [address] [place] [address] PCP - General Family Medicine 03/22/22 Unit Secretary Relationship Specialty Start Date End Date Solomon Hi DO [address] [place] [address] PCP - General 03/07/22 Unit Secretary Relationship Specialty Start Date End Date Solomon Hi DO [address] [place] [address] PCP - General 03/07/22 Unit Secretary Relationship Specialty Start Date End Date Solomon Hi DO [address] [place] [address] PCP - General Family Medicine 03/22/22 Unit Secretary Relationship Specialty Start Date End Date Solomon Hi DO [address] [place] [address] PCP - General Family Medicine 03/22/22 Unit Secretary Relationship Specialty Start Date End Date Solomon Hi DO [address] [place] [address] PCP - General Family Medicine 03/22/22 Unit Secretary Relationship Specialty Start Date End Date Solomon Hi DO [address] [place] [address] PCP - General Family Medicine 03/22/22 Unit Secretary Relationship Specialty Start Date End Date Solomon Hi DO [address] [place] [address] PCP - General Family Medicine 03/22/22 Unit Secretary Relationship Specialty Start Date End Date Solomon Hi DO [address] [place] [address] PCP - General Family Medicine 03/22/22 Unit Secretary Relationship Specialty Start Date End Date Solomon Hi DO [address] [place] [address] PCP - General Family Medicine 03/22/22 Unit Secretary Relationship Specialty Start Date End Date Solomon Hi DO [address] [place] [address] PCP - General Family Medicine 03/22/22 Unit Secretary Relationship Specialty Start Date End Date Solomon Hi DO [address] [place] [address] PCP - General Family Medicine 03/22/22 Unit Secretary Relationship Specialty Start Date End Date Solomon Hi DO [address] [place] [address] PCP - General Family Medicine 03/22/22 Unit Secretary Relationship Specialty Start Date End Date Solomon Hi DO [address] [place] [address] PCP - General 03/07/22 Unit Secretary Relationship Specialty Start Date End Date Solomon Hi DO [address] [place] [address] PCP - General Family Medicine 03/22/22 Unit Secretary Relationship Specialty Start Date End Date Solomon Hi DO [address] [place] [address] PCP - General Family Medicine 03/22/22 Unit Secretary Relationship Specialty Start Date End Date Solomon Hi DO [address] [place], [place] [address] PCP - General 03/07/22 Unit Secretary Relationship Specialty Start Date End Date Solomon Hi DO [address] [place] [address] PCP - General 03/07/22 Unit Secretary Relationship Specialty Start Date End Date Solomon Hi DO [address] [place] [address] PCP - General 03/07/22 Unit Secretary Relationship Specialty Start Date End Date Solomon Hi DO [address] [place] [address] PCP - General 03/07/22 FOR RECORDS PERTAINING TO PATIENTS WHO ARE OR HAVE BEEN ENROLLED IN A CHEMICAL DEPENDENCY/SUBSTANCEABUSE PROGRAM, SOME INFORMATION MAY BE OMITTED. This clinical summary was aggregated from multiple sources. Caution should be exercised in using it in the provision of clinical care. This summary normalizes information from multiple sources, and as a consequence, information in this document may materially change the coding, format and clinical context of patient data. In addition, data may be omitted in some cases. CLINICAL DECISIONS SHOULD BE BASED ON THE PRIMARY CLINICAL RECORDS. [facility]. provides no warranty or guarantee of the accuracy or completeness of information in this document.
[2023-09-09 14:16] LABS: AST(SGOT) 15 U/L (15-37); Alanine Aminotransfer ALT/SGPT 15 U/L (13-56); Albumin, Serum 2.9 g/dL (3.2-5.0); Alkaline Phosphatase 81 U/L (45-117); Anion Gap 5 (5-15); BUN 28 mg/dL (7-18); BUN/Creat Ratio 12.4 RATIO (10-20); Bilirubin, Direct 0.08 mg/dL (0.00-0.30); Calcium,Total 7.7 mg/dL (8.5-10.1); Chloride 119 mmol/L (98-107); Creatinine, Serum 2.25 mg/dL (0.55-1.02); EST Glomerular Filtration Rate 27 mL/min (>60); Est Glom Filt Rate - Afr Amer 32 mL/min (>60); Estimated Creatinine Clearance 1.43 ml/min; Globulin 3.7 g/dL (2.2-4.2); Glucose 70 mg/dL (74-106); Potassium 4.3 mmol/L (3.5-5.1); Protein, Total 6.6 g/dL (6.4-8.2); Sodium Level 144 mmol/L (136-145)
[2023-09-09 14:17] VITALS: BP 117/72; PULSE 79; RESP 18; O2SAT 100
[2023-09-09 14:19] LABS: Absolute Lymphocyte Count 1.31 X10^3/uL (0.83-4.51); Basophil# 0.04 X10^3/uL; Basophil% 0.6 % (0-1); Eosinophil# 0.12 X10^3/uL; Eosinophils% 1.7 % (0-5); Hemoglobin 9.7 g/dL (12.0-15.0); Lymphocyte # 1.31 X10^3/ul (0.83-4.51); Lymphocyte % 18.2 % (19-41); Mean Corp Hgb Conc 30.3 g/dL (32-36); Mean Corpuscular Hgb 28.5 pg (27.0-32.0); Mean Corpuscular Volume 94.1 fL (81-99); Mean Platelet Vol. 10.3 fl (6.2-12.0); Monocyte# 0.67 X10^3/uL; Monocyte% 9.3 % (0-10); NRBC Flagged by Analyzer 0 % (0-5); Neutrophil # 5.02 X10^3/uL (2.7-7.7); Neutrophil % 69.5 % (47-70); Platelet Count 151 K/mm3 (150-450); RBC Distribution Width CV 14.3 % (11.6-14.6); White Blood Count 7.2 K/mm3 (4.4-11.0)
[2023-09-09 14:32] VITALS: O2SAT 100
[2023-09-09 14:48] LABS: Mucous, Urine 0 SEEN /hpf (<or=2+); Red Blood Cells-Urine 0 SEEN /hpf (0-5); Squamous Epithelial Cells - UA 0 SEEN /hpf (5-10)
[2023-09-09 14:50] VITALS: O2SAT 100
[2023-09-09 14:50] LABS: Color, Urine Yellow (Yellow); Glucose, Dipstick Normal (Normal); Ketone-Dipstick Negative (Negative); Leukocyte Esterase-Dipstick 500 /ul (Negative); Nitrite-Dipstick Negative (Negative); Occult Blood-Urine 50 /ul (Negative); Protein-Dipstick 100 mg/dl (Negative); Urine Bilirubin Dipstick Negative (Negative); Urine Clarity Sl. Cloudy (Clear); Urine Urobilinogen Normal (Normal); Urine pH 6.5 (5.0 - 8.0)
[2023-09-09 14:55] LABS: Bacteria 2+ /hpf (None Seen); Internal QC Validated? YES +Cl - CLEAR BKGD; Pregnancy, Urine Negative Negative; White Blood Cells >100 SEEN /hpf (0-5)
[2023-09-09 15:00] VITALS: BP 117/72; PULSE 79; RESP 18; O2SAT 100
[2023-09-09 15:07] LABS: Amphetamine Urine VISTA NEGATIVE (<1000 ng/mL); Barbiturate Urine VISTA NEGATIVE (< 200 ng/mL); Benzodiazepine Urine VISTA NEGATIVE (< 200 ng/mL); Cocaine Urine VISTA NEGATIVE (< 300 ng/mL); Ecstacy Urine VISTA NEGATIVE (< 500 ng/mL); Methadone Urine VISTA NEGATIVE (< 300 ng/mL); PCP Urine VISTA NEGATIVE (< 25 ng/mL); THC Urine VISTA POSITIVE (< 50 ng/mL)
[2023-09-09 15:36] LABS: Vista UDS pH Range 6
[2023-09-09 15:40] VITALS: BP 117/72; PULSE 68; RESP 16; TEMP 36.7; O2SAT 95
--- NOTE | 2023-09-09 16:48 | EDS_ITS ---
HPI History of Present Illness Chief Complaint: Flank Pain Narrative Narrative: 32-year-old female presenting with multiple complaints. She states that she has had weeks of dysuria, hematuria and she has a history of UTIs. No fevers but admits to chills and bodyaches. Patient also admits to nausea, vomiting, diarrhea. She states she was recently in a psych facility and around a lot of people and is concerned she could have contracted something viral. [facility] Medical History Alcohol abuse Anemia Anxiety Asthma Bipolar disorder Chronic headaches COVID-19 Deafness in left ear Depression Drug abuse demise > 22 weeks, delivered, current hospitalization Flu vaccine need Hepatitis History of imperforate anus History of renal disease Hydronephrosis Hyperthyroidism IBS (irritable bowel syndrome) Kidney disease Menometrorrhagia Migraine Migraine headache Pancreatitis Pancreatitis Seasonal allergies Smoker Substance abuse Tachycardia Tobacco abuse Wears glasses Home Medications sertraline 25 mg tablet 25 mg PO DAILY depression #90 tabs 08/26/21 [Rx Last Taken 10/20/21] buprenorphine 4 mg-naloxone 1 mg sublingual film (Suboxone) 1 film sublingual BID ADDICTION 10/21/21 [History Last Taken 10/21/21] valacyclovir 500 mg tablet 500 mg PO DAILY INFECTION 10/21/21 [History Last Taken 10/20/21] losartan 25 mg tablet 25 mg PO DAILY #0 tabs 10/24/21 [Rx Last Taken Unknown] aripiprazole 10 mg tablet 10 mg PO DAILY MOOD #30 tabs 10/27/21 [Rx Last Taken Unknown] levothyroxine 150 mcg tablet 150 mcg PO DAILY THYROID #30 tabs 10/27/21 [Rx Last Taken Unknown] amitriptyline 10 mg tablet 10 mg PO QHS 08/03/23 [History Last Taken Unknown] montelukast 10 mg tablet 10 mg PO QHS 08/03/23 [History Last Taken Unknown] rimegepant 75 mg disintegrating tablet (Nurtec ODT) 75 mg PO DAILY PRN migraine headache 08/03/23 [History Last Taken Unknown] ciprofloxacin HCl 500 mg tablet 500 mg PO BID #14 TABLETS 09/09/23 [Rx Last Taken Unknown] ondansetron 4 mg disintegrating tablet 4 mg PO Q8H PRN PRN Nausea #20 tabs 09/09/23 [Rx Last Taken Unknown] Allergy/AdvReac Type Severity Reaction Status Date / Time ceftriaxone [From Rocephin] Allergy Unknown Verified 09/09/23 13:18 ceftriaxone sodium Allergy Hives Verified 09/09/23 13:18 [From Rocephin] droperidol Allergy Unknown Verified 09/09/23 13:18 Family History Mother Depression Hypertension Mental disorder Thyroid disorder Aunt Diabetes Grandfather Alcoholism Cancer Surgical History History of removal of Port-a-Cath Hx of cystoscopy Hx of surgical procedure Social History household members: none Smoking Status: Current every day smoker tobacco type: cigarettes alcohol intake: never substance use type: crack/cocaine, heroin and other details: Currently snorts 1/2 gm daily of each heroin and cocaine. Also uses meth. what type of physical activity do you participate in: aerobics and weight training frequency: 3-4 times per week ROS ROS ED Constitutional Constitutional ED: Denies chills, fever(s) or sweats Eyes Eyes: Denies blurry vision or change in vision ENT ENT ED: Denies ear pain or sore throat Cardiovascular Cardiovascular: Denies chest pain, palpitations or racing heartbeat Respiratory/Chest Respiratory/Chest: Denies cough, dyspnea or sputum Gastrointestinal Gastrointestinal: Reports abdominal pain, constipation, nausea and vomiting; Denies diarrhea Genitourinary Genitourinary ED: Reports dysuria and hematuria; Denies urinary frequency Musculoskeletal Musculoskeletal: Denies arthralgias, myalgias or neck pain Integumentary Denies abscess, Abrasions or rash Neurologic Neurologic: Denies headache(s), paresthesias or weakness Psychiatric Psychiatric: Denies anxiety, depression, suicidal ideation or suicidal thoughts Endocrine Endocrinology: Denies polydipsia or polyuria EXAM Physical Exam Const Vital Signs: 09/09/23 13:19 09/09/23 15:40 09/09/23 14:17 Temperature 97.9 F 98.1 F Temperature Source Temporal Pulse Rate 84 68 79 Respiratory Rate 14 16 18 Blood Pressure 112/69 117/72 117/72 Blood Pressure Mean 83 87 87 Pulse Ox 100 95 100 Oxygen Delivery Method Room Air Room Air 09/09/23 14:32 09/09/23 14:50 09/09/23 15:00 Temperature Temperature Source Pulse Rate 79 Respiratory Rate 18 Blood Pressure 117/72 Blood Pressure Mean 87 Pulse Ox 100 100 100 Oxygen Delivery Method Positive well nourished General Appearance ED: NAD; Negative for pallor HEENT Reports moist mucous membranes Eyes PERRL and EOMs intact bilaterally Neck no lymphadenopathy Chest Wall inspection of chest normal Resp normal respiratory effort Auscultation: Negative for rales or rhonchi Cardio regular rate and regular rhythm GI normal to inspection, nondistended, normoactive bowel sounds and non-tender Palpation: soft Neuro oriented x3 and CN's II-XII intact bilaterally Sensorium / Orientation: alert Psych mental status grossly normal Skin no rashes or lesions noted General Skin Exam: Negative for jaundice or pallor MDM MDM MDM Narrative Medical decision making narrative: patient presenting with multiple complaints. She has concern for UTI versus pyelonephritis. She also has nausea, vomiting diarrhea. Differential includes colitis, diverticulitis, COVID, influenza, RSV, dehydration, anemia, electro abnormalities, UTI, cannabinoid hyperemesis syndrome, pyelonephritis. CBC was obtained to assess white blood cell count, hemoglobin, platelets. CMP to assess liver function, renal function, electrolytes, glucose. Urinalysis to assess for UTI. hCG to assess for . CBC shows normal white blood cell count of 7.2. Hemoglobin at baseline 9.7. Platelets 151. Creatinine 1.43 near baseline. Electrolytes are normal. LFTs are normal. Urine drug screen was assessed and shows cannabinoids. Urinalysis consistent with UTI. Patient is given Cipro as this helped her in the past. She will be given a prescription for this. She is given Zofran for nausea. Her CT of the abdomen pelvis does not show anything acute except for constipation. She is counseled this. Clinically I suspect she has pyelonephritis and she will follow-up as an outpatient or return precautions were discussed. Impression: 1. Abdominal pain 2. Pyelonephritis 3. Constipation 4. Nausea/vomiting Lab Data Labs: Laboratory Results - last 24 hr 09/09/23 09/09/23 13:50 14:30 WBC 7.2 RBC 3.40 L Hgb 9.7 L Hct 32.0 L MCV 94.1 MCH 28.5 MCHC 30.3 L RDW Std Deviation 49.0 H RDW Coeff of Maki 14.3 Plt Count 151 MPV 10.3 Immature Gran % (Auto) 0.700 Neut % (Auto) 69.5 Lymph % (Auto) 18.2 L [place] % (Auto) 9.3 Eos % (Auto) 1.7 Baso % (Auto) 0.6 Absolute Neuts (auto) 5.0 Absolute Lymphs (auto) 1.31 Nucleated RBC % 0 Sodium 144 Potassium 4.3 Chloride 119 H Carbon Dioxide 20.0 L Anion Gap 5 BUN 28 H Creatinine 2.25 H Estim Creat Clear Calc 1.43 Est GFR (MDRD) Af Amer 32 L Est GFR (MDRD) Non-Af 27 L BUN/Creatinine Ratio 12.4 Glucose 70 L Calcium 7.7 L Total Bilirubin 0.30 Direct Bilirubin 0.08 AST 15 ALT 15 Alkaline Phosphatase 81 Total Protein 6.6 Albumin 2.9 L Globulin 3.7 Urine Color Yellow Urine Clarity Sl. Cloudy Urine pH 6.5 Ur Specific [place] 1.010 Urine Protein 100 H Urine Glucose (UA) Normal Urine Ketones Negative Urine Occult Blood 50 H Urine Nitrite Negative Urine Bilirubin Negative Urine Urobilinogen Normal Ur Leukocyte Esterase 500 H Urine RBC 0 SEEN Urine WBC >100 SEEN Ur Squamous Epith Cells 0 SEEN Urine Bacteria 2+ Urine Mucus 0 SEEN Urine Test Negative Urine Opiates Screen NEGATIVE Urine Methadone Screen NEGATIVE Ur Barbiturates Screen NEGATIVE Ur Phencyclidine Scrn NEGATIVE Ur Amphetamines Screen NEGATIVE MDMA (Ecstasy) Screen NEGATIVE U Benzodiazepines Scrn NEGATIVE Urine Cocaine Screen NEGATIVE U Cannabinoids Screen POSITIVE H Ur Drug Screen Comment Radiography Diagnostic Testing: Clinical Impression(s) from Imaging Studies Abdomen/Pelvis CT 09/09/23 13:38 IMPRESSION: 1. No acute process of the abdomen and pelvis. 2. No visualized bowel dilatation or obstruction. No free air or abscess is present. A moderate amount of stool is present throughout the colon. Electronically Signed: Tin Lawson MD at 14:52 EDT , Discharge Plan Triage Chief Complaint: Flank Pain ED Provider: Mark Rooney Dx/Rx/DC Orders Instructions: ED Constipation (Adult), ED Pyelonephritis, Female (Adult) Prescriptions: New ciprofloxacin HCl 500 mg tablet 500 mg PO BID Qty: 14 0RF ondansetron 4 mg tablet,disintegrating 4 mg PO Q8H PRN PRN (Reason: Nausea) Qty: 20 0RF No Action valacyclovir 500 mg tablet 500 mg PO DAILY buprenorphine-naloxone [Suboxone] 4-1 mg Film 1 film SUBLINGUAL BID Patient Comments: CALLED TO VERIFY SUBOXONE WITH [facility] [place]. PT JUST STARTED TREATMENT WITH [facility] AND NEW RX WAS FILLED AND CANCELED YESTERDAY FOR THE SUBOXONE 4-1 FILM BID. [facility] STATED PT DID NOT PICK-UP AND RX WAS CANCELED. losartan 25 mg Tablet 25 mg PO DAILY Qty: 0 0RF amitriptyline 10 mg tablet 10 mg PO QHS Patient Comments: Take 1 tablet (10 mg) by mouth Nightly. montelukast 10 mg tablet 10 mg PO QHS Patient Comments: take 1 tablet by mouth at bedtime Nurtec ODT 75 mg tablet,disintegrating 75 mg PO DAILY PRN (Reason: migraine headache) sertraline 25 mg tablet 25 mg PO DAILY Qty: 90 3RF aripiprazole 10 mg tablet 10 mg PO DAILY Qty: 30 2RF levothyroxine 150 mcg tablet 150 mcg PO DAILY Qty: 30 2RF Primary Care Provider: Ramya Ferrer Referrals: Ramya Ferrer MD [Primary Care Provider] - Disposition Disposition: Home, Self Care Discharge Date/Time: 09/09/23 16:18
== END 2023-09-09 16:18 | disposition home or self-care (01) ==
PROVIDERS: Emergency Provider Student in an Organized Health Care Education/Training Program; PCP Internal Medicine; Visit Provider Student in an Organized Health Care Education/Training Program
DX: R10.9 Unspecified abdominal pain (principal); F31.9 Bipolar disorder, unspecified; R11.2 Nausea with vomiting, unspecified; K59.00 Constipation, unspecified; N12 Tubulo-interstitial nephritis, not specified as acute or chronic; Z79.899 Other long term (current) drug therapy; E05.90 Thyrotoxicosis, unspecified without thyrotoxic crisis or storm; G43.909 Migraine, unspecified, not intractable, without status migrainosus; F17.210 Nicotine dependence, cigarettes, uncomplicated
CPT/HCPCS: 74176; 80048; 80076; 80307; 81001; 81025; 85025; 87077; 87086; 87088; 87186; 87631; 99283; J7030; J2405

== ENCOUNTER → 2023-11-02 | Outpatient (CLI) | payer MEDICAID, SELFPAY ==
[2023-11-02 17:30] LABS: Absolute Lymphocyte Count 1.93 X10^3/uL (0.83-4.51); Absolute Neutrophil Count 3.5 X10^3/uL (2.0-7.7); Basophil# 0.03 X10^3/uL; Basophil% 0.5 % (0-1); Eosinophil# 0.21 X10^3/uL; Eosinophils% 3.5 % (0-5); Hematocrit 37.6 % (37-47); Hemoglobin 11.6 g/dL (12.0-15.0); Lymphocyte # 1.93 X10^3/ul (0.83-4.51); Lymphocyte % 31.8 % (19-41); Mean Corp Hgb Conc 30.9 g/dL (32-36); Mean Corpuscular Hgb 27.9 pg (27.0-32.0); Mean Corpuscular Volume 90.4 fL (81-99); Mean Platelet Vol. 10.1 fl (6.2-12.0); Monocyte# 0.38 X10^3/uL; Monocyte% 6.3 % (0-10); NRBC Flagged by Analyzer 0 % (0-5); Neutrophil # 3.48 X10^3/uL (2.7-7.7); Neutrophil % 57.4 % (47-70); Platelet Count 161 K/mm3 (150-450); RBC Distribution Width CV 12.5 % (11.6-14.6); Red Blood Count 4.16 M/mm3 (4.2-5.4); White Blood Count 6.1 K/mm3 (4.4-11.0)
[2023-11-02 18:20] LABS: Hemoglobin A1c 4.8 % (3.8-5.6); Vitamin B12 592 pg/mL (211-911); Vitamin D,25 Hydroxy 36.2 ng/mL
[2023-11-02 18:49] LABS: ALB/GLOB Ratio 0.8 RATIO (0.9-2.4); AST(SGOT) 24 U/L (15-37); Alanine Aminotransfer ALT/SGPT 17 U/L (13-56); Albumin, Serum 3.4 g/dL (3.2-5.0); Alkaline Phosphatase 68 U/L (45-117); Anion Gap 5 (5-15); BUN 31 mg/dL (7-18); BUN/Creat Ratio 11.9 RATIO (10-20); CRP < 2.90 mg/L (0.0-3.0); Calcium,Total 8.9 mg/dL (8.5-10.1); Chloride 110 mmol/L (98-107); Creatinine, Serum 2.61 mg/dL (0.55-1.02); EST Glomerular Filtration Rate 22 mL/min (>60); Est Glom Filt Rate - Afr Amer 27 mL/min (>60); Free T3 2.9 pg/mL (2.18-3.98); Glucose 112 mg/dL (74-106); Potassium 3.8 mmol/L (3.5-5.1); Protein, Total 7.4 g/dL (6.4-8.2); Sodium Level 139 mmol/L (136-145); T4 Free Direct 0.85 ng/dL (0.76-1.46); Thyroid Stim Hormone (TSH) 3.85 uIU/mL (0.358-3.74)
== END | disposition home or self-care (01) ==
LOC: LAB 17:15
PROVIDERS: PCP Internal Medicine; Referring Provider Family Medicine; Visit Provider Family Medicine
DX: F41.9 Anxiety disorder, unspecified (principal); R53.83 Other fatigue; N18.9 Chronic kidney disease, unspecified
CPT/HCPCS: 36415; 80053; 82306; 82607; 83036; 84403; 84439; 84443; 84481; 85025; 86140

== ENCOUNTER 2023-12-27 10:27 | Emergency (ER) | payer MEDICAID, SELFPAY ==
[2023-12-27 10:29] VITALS: BP 111/71; PULSE 110; RESP 18; TEMP 36.2; O2SAT 97; BMI 18.6
--- NOTE | 2023-12-27 10:53 | CT_ITS ---
EXAM: CT ABDOMEN AND PELVIS WITHOUT INTRAVENOUS CONTRAST CLINICAL INDICATION: abd pain, vomiting TECHNIQUE: Helically acquired images were obtained of the abdomen and pelvis without intravenous contrast. This CT exam was performed using one or more of the following dose reduction techniques: automated exposure control, adjustment of the mA and/or kV according to patient size, and/or use of iterative reconstruction technique. COMPARISON: CT Abdomen Pelvis dated 09/09/2023 and 11/10/2020 FINDINGS: LOWER THORAX: Normal. Lung bases are clear. No cardiomegaly. No pericardial effusion. ABDOMEN: LIVER: Normal. Homogeneous. GALLBLADDER AND BILE DUCTS: Normal. No calcified gallstones. No gallbladder distention or wall edema. No intra- or extrahepatic biliary ductal dilation. PANCREAS: Normal. No focal cystic mass. SPLEEN: Normal. Normal size without focal cystic or solid mass. ADRENALS: Normal. No nodules. KIDNEYS AND URETERS: Absent right kidney again seen. Stable lobulated contour of the left kidney. STOMACH AND BOWEL: Normal. No bowel distention. No focal inflammatory change. PELVIS: APPENDIX: Appendix is visualized and normal in appearance. BLADDER: Normal. 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 ABDOMEN and PELVIS: INTRAPERITONEAL SPACE: Normal. No ascites or other fluid collection. No free air. BONES/JOINTS: No suspicious lytic or blastic abnormality. SOFT TISSUES: Normal. No discrete abdominal or pelvic wall hernia. VASCULATURE: Normal. Abdominal aorta is non-dilated. LYMPH NODES: Normal. No enlarged lymph nodes. CT/Abdomen/Pelvis without Cont IMPRESSION: No acute abdominal or pelvic abnormality. No interval change. Electronically Signed: Sanjeev Sauer MD at 11:55 EDT ,
--- NOTE | 2023-12-27 10:55 | EX.ED.DYSGE1 ---
HPI History of Present Illness Chief Complaint: Abd Pain Informant: patient Onset/Context/Timing Onset: Weeks Narrative Narrative: Patient presents with complaints of abdominal pain and nausea with vomiting. She states that she has had worsened vomiting of the past several months and is now having trouble keeping anything down. She is concerned that she is dehydrated. She does have a solitary (left) kidney. She has noted decreased urinary output. Patient is scheduled to see a GI doctor next week. [facility] Medical History Substance abuse Alcohol abuse Bipolar disorder Hyperthyroidism Kidney disease Pancreatitis Tobacco abuse COVID-19 Flu vaccine need Tachycardia IBS (irritable bowel syndrome) Wears glasses Depression Anxiety History of renal disease Hepatitis Migraine headache Smoker History of imperforate anus Hydronephrosis Migraine Menometrorrhagia Deafness in left ear Pancreatitis Chronic headaches Drug abuse Asthma Anemia Seasonal allergies demise > 22 weeks, delivered, current hospitalization Home Medications ?Medication ?Instructions ?Recorded ?Last Taken ?Type sertraline 25 mg tablet 25 mg PO DAILY depression #90 tabs 08/26/21 10/20/21 Rx buprenorphine 4 mg-naloxone 1 mg 1 film sublingual BID ADDICTION 10/21/21 10/21/21 History sublingual film (Suboxone) valacyclovir 500 mg tablet 500 mg PO DAILY INFECTION 10/21/21 10/20/21 History losartan 25 mg tablet 25 mg PO DAILY #0 tabs 10/24/21 Unknown Rx aripiprazole 10 mg tablet 10 mg PO DAILY MOOD #30 tabs 10/27/21 Unknown Rx levothyroxine 150 mcg tablet 150 mcg PO DAILY THYROID #30 tabs 10/27/21 Unknown Rx amitriptyline 10 mg tablet 10 mg PO QHS 08/03/23 Unknown History montelukast 10 mg tablet 10 mg PO QHS 08/03/23 Unknown History rimegepant 75 mg disintegrating 75 mg PO DAILY PRN migraine 08/03/23 Unknown History tablet (Nurtec ODT) headache ciprofloxacin HCl 500 mg tablet 500 mg PO BID #14 TABLETS 09/09/23 Unknown Rx ondansetron 4 mg disintegrating 4 mg PO Q8H PRN PRN Nausea #20 tabs 09/09/23 Unknown Rx tablet metoclopramide HCl 10 mg tablet 10 mg PO Q6H PRN nausea and 12/27/23 Unknown Rx (Reglan) vomiting #14 tabs ondansetron 4 mg disintegrating 4 mg PO Q8H PRN PRN Nausea #10 tabs 12/27/23 Unknown Rx tablet Allergy/AdvReac Type Severity Reaction Status Date / Time ceftriaxone (From Rocephin) Allergy Unknown Verified 12/27/23 10:29 ceftriaxone sodium (From Allergy Hives Verified 12/27/23 10:29 Rocephin) droperidol Allergy Unknown Verified 12/27/23 10:29 Family History Mother Depression Hypertension Mental disorder Thyroid disorder Aunt Diabetes Grandfather Alcoholism Cancer Surgical History History of removal of Port-a-Cath Hx of surgical procedure Hx of cystoscopy Social History household members: none Smoking Status: Current every day smoker tobacco type: cigarettes alcohol intake: never substance use type: crack/cocaine, heroin and other details: Currently snorts 1/2 gm daily of each heroin and cocaine. Also uses meth. what type of physical activity do you participate in: aerobics and weight training frequency: 3-4 times per week ROS ROS ED Constitutional Constitutional ED: Denies chills or fever(s) Eyes Eyes: Denies discharge from eye(s) ENT ENT ED: Denies discharge from eye(s), rhinorrhea or sore throat Cardiovascular Cardiovascular: Denies chest pain Respiratory/Chest Respiratory/Chest: Denies cough or dyspnea Gastrointestinal Gastrointestinal: Reports abdominal pain, nausea and vomiting Genitourinary Genitourinary ED: Reports other Details: Decreased urine output ; Denies dysuria Musculoskeletal Musculoskeletal: Denies back pain or extremity pain Integumentary Denies Abrasions or rash Neurologic Neurologic: Denies headache(s) or weakness Psychiatric Psychiatric: Reports anxiety; Denies depression Allergic/Immunologic Allergic/Immunologic ED: Denies lip swelling or urticaria EXAM Physical Exam Const Vital Signs: 12/27/23 10:29 12/27/23 12:28 12/27/23 14:00 Temperature 97.1 F L 97.8 F Temperature Source Temporal Temporal Pulse Rate 110 H 64 77 Respiratory Rate 18 16 16 Blood Pressure 111/71 Blood Pressure Mean 84 Pulse Ox 97 97 95 Oxygen Delivery Method Room Air Room Air Room Air Positive well nourished and well developed General Appearance ED: well developed HEENT Reports dry mucous membranes Mouth ED: Yes dry mucous membranes Mouth: dry mucous membranes Eyes EOMs intact bilaterally Chest Wall inspection of chest normal and palpation of chest normal Resp normal respiratory effort and clear to auscultation bilaterally Cardio regular rhythm Rate: tachycardic GI GI Narrative: Abdomen soft with mild diffuse tenderness. No focal tenderness or palpable masses. Hypoactive bowel sounds. Extremity normal to inspection Neuro oriented x3 Neuro Narrative: No focal neurologic deficit. Psych Mood & Affect: anxious and tearful Skin no rashes or lesions noted MDM MDM MDM Narrative Medical decision making narrative: IV line established. Patient given IV fluids along with Reglan and Benadryl. Labwork obtained to evaluate for leukocytosis, anemia, and electrolyte derangement. Urinalysis obtained to evaluate for infection/hematuria. CT scan the abdomen and pelvis without contrast will be obtained to evaluate for partial small bowel obstruction, colitis, mesenteric adenitis, pancreatitis. History & Record Review Discussion w/independent historian: Patient and Family Additional record(s) reviewed:: Prior labs Lab Data Attestation: I reviewed the patient's lab results. Labs: Laboratory Results - last 24 hr 12/27/23 12/27/23 12/27/23 10:55 11:22 12:54 WBC 4.6 RBC 4.79 Hgb 13.5 Hct 42.7 MCV 89.1 MCH 28.2 MCHC 31.6 L RDW Std Deviation 43.2 RDW Coeff of Maki 13.2 Plt Count 126 L MPV 11.7 Immature Gran % (Auto) 0.200 Neut % (Auto) 62.0 Lymph % (Auto) 25.9 Yancey % (Auto) 6.9 Eos % (Auto) 3.9 Baso % (Auto) 1.1 H Absolute Neuts (auto) 2.9 Absolute Lymphs (auto) 1.20 Nucleated RBC % 0 ESR 14 PT 14.3 INR 1.1 APTT 29.2 Sodium 140 Potassium 3.8 Chloride 108 H Carbon Dioxide 20.0 L Anion Gap 12 BUN 30 H Creatinine 2.62 H Estim Creat Clear Calc 27.53 Est GFR (MDRD) Af Amer 27 L Est GFR (MDRD) Non-Af 22 L BUN/Creatinine Ratio 11.5 Glucose 128 H Calcium 10.2 H Total Bilirubin 0.90 Direct Bilirubin 0.35 H AST 1086 H ALT 1275 H Alkaline Phosphatase 73 Total Creatine Kinase 60 C-React Prot Ext Range < 2.90 Total Protein 9.1 H Albumin 4.2 Globulin 4.9 H Lipase 45 Serum , Qual NEGATIVE Urine Color Yellow Urine Clarity Sl. Cloudy Urine pH 6.0 Ur Specific Thompson 1.015 Urine Protein 100 H Urine Glucose (UA) Normal Urine Ketones 50 H Urine Occult Blood 10 H Urine Nitrite Negative Urine Bilirubin Negative Urine Urobilinogen Normal Ur Leukocyte Esterase 100 H Urine RBC 0 SEEN Urine WBC 0-5 SEEN Ur Squamous Epith Cells 10-25 SEEN Amorphous Sediment 1+ Urine Bacteria 0 SEEN Urine Mucus 0 SEEN Urine Opiates Screen NEGATIVE Urine Methadone Screen NEGATIVE Acetaminophen < 2.0 L Ur Barbiturates Screen NEGATIVE Ur Phencyclidine Scrn NEGATIVE Ur Amphetamines Screen NEGATIVE MDMA (Ecstasy) Screen NEGATIVE U Benzodiazepines Scrn NEGATIVE Urine Cocaine Screen NEGATIVE U Cannabinoids Screen POSITIVE H Ur Drug Screen Comment Radiography Diagnostic Testing: Clinical Impression(s) from Imaging Studies Abdomen/Pelvis CT 12/27/23 10:53 IMPRESSION: No acute abdominal or pelvic abnormality. No interval change. Electronically Signed: Sanjeev Sauer MD at 11:55 EDT Reading Location ID and State: [facility] / [place] Tel , Service support , Treatment and Re-Evaluation :: CBC was normal white count 4.6 with a hemoglobin of 13.5. Differential unremarkable. Chemistry studies reveal a bicarb of 20. BUN is 30 and creatinine is 2.62. This is similar to her creatinine from October. LFTs significant for a total bilirubin of 0.9 and a direct bilirubin of 0.35. AST is 1086 and ALT is 1275. Alk phos is normal at 73. Lipase is normal at 45. test negative. Urinalysis reveals 50 ketones with 10-25 epithelial cells. No obvious infection. Patient was given a dose of Zofran along with Protonix. I spoke with Dr. Reese, on-call for GI given her elevated LFTs. He recommended getting a hepatitis panel, CMV, EBV, Tylenol level, CK, sed rate, INR, urine drug screen, and aldolase. Part of these orders have been able to be returned today. Sed rate and CRP are both normal. INR is 1.1. CK is normal at 60 and acetaminophen level is less than 2. Urine tox screen is positive for cannabinoids only. On repeat evaluation patient states she does feel better with IV fluids. She does feel that she can go home with some antiemetics. She has follow-up scheduled with a GI doctor through the [facility] next Monday. I advised her that the other test that were send outs I am hoping will be back by Monday but cannot guarantee it. Patient given return instructions. Discharge Plan Triage Chief Complaint: Abd Pain ED Provider: Mayuri Smith Dx/Rx/DC Orders Clinical Impression: Vomiting, Elevated LFTs Instructions: ED Hepatitis Cause Unknown ..., ED Vomiting (Adult) Prescriptions: New ondansetron 4 mg tablet,disintegrating 4 mg PO Q8H PRN PRN (Reason: Nausea) Qty: 10 0RF metoclopramide HCl [Reglan] 10 mg tablet 10 mg PO Q6H PRN (Reason: nausea and vomiting) Qty: 14 0RF No Action valacyclovir 500 mg tablet 500 mg PO DAILY buprenorphine-naloxone [Suboxone] 4-1 mg Film 1 film SUBLINGUAL BID Patient Comments: CALLED TO VERIFY SUBOXONE WITH A [facility] [place]. PT JUST STARTED TREATMENT WITH [facility] AND NEW RX WAS FILLED AND CANCELED YESTERDAY FOR THE SUBOXONE 4-1 FILM BID. A [facility] STATED PT DID NOT PICK-UP AND RX WAS CANCELED. losartan 25 mg Tablet 25 mg PO DAILY Qty: 0 0RF amitriptyline 10 mg tablet 10 mg PO QHS Patient Comments: Take 1 tablet (10 mg) by mouth Nightly. montelukast 10 mg tablet 10 mg PO QHS Patient Comments: take 1 tablet by mouth at bedtime Nurtec ODT 75 mg tablet,disintegrating 75 mg PO DAILY PRN (Reason: migraine headache) ciprofloxacin HCl 500 mg tablet 500 mg PO BID Qty: 14 0RF ondansetron 4 mg tablet,disintegrating 4 mg PO Q8H PRN PRN (Reason: Nausea) Qty: 20 0RF sertraline 25 mg tablet 25 mg PO DAILY Qty: 90 3RF aripiprazole 10 mg tablet 10 mg PO DAILY Qty: 30 2RF levothyroxine 150 mcg tablet 150 mcg PO DAILY Qty: 30 2RF Primary Care Provider: Ramya Ferrer Referrals: Ramya Ferrer MD [Primary Care Provider] - Activity Restrictions/Additional Instructions: Follow-up with your GI doctor next week as scheduled. Print Language: Pakistani Disposition Disposition: Home, Self Care
[2023-12-27 11:07] LABS: Absolute Neutrophil Count 2.9 X10^3/uL (2.0-7.7); Basophil# 0.05 X10^3/uL; Basophil% 1.1 % (0-1); Eosinophil# 0.18 X10^3/uL; Eosinophils% 3.9 % (0-5); Hematocrit 42.7 % (37-47); Hemoglobin 13.5 g/dL (12.0-15.0); Lymphocyte % 25.9 % (19-41); Mean Corp Hgb Conc 31.6 g/dL (32-36); Mean Corpuscular Hgb 28.2 pg (27.0-32.0); Mean Corpuscular Volume 89.1 fL (81-99); Mean Platelet Vol. 11.7 fl (6.2-12.0); Monocyte# 0.32 X10^3/uL; Monocyte% 6.9 % (0-10); NRBC Flagged by Analyzer 0 % (0-5); Neutrophil # 2.88 X10^3/uL (2.7-7.7); Platelet Count 126 K/mm3 (150-450); RBC Distribution Width CV 13.2 % (11.6-14.6); RBC Distribution Width SD 43.2 fl (35.1-43.9); Red Blood Count 4.79 M/mm3 (4.2-5.4); White Blood Count 4.6 K/mm3 (4.4-11.0)
[2023-12-27] MEDS: 0.9% Normal Saline (1000mL) 1,000 ML 1000 ML IV (11:08)
[2023-12-27] MEDS: DiphenhydrAMINE 50 MG/ML Syringe 12.5 MG IV (11:08)
[2023-12-27] MEDS: Metoclopramide 10 MG/2 ML Vial 5 MG IV (11:08)
[2023-12-27 11:16] LABS: Internal QC Validated? YES +Cl - CLEAR BKGD; Pregnancy, Serum, hCG Quali. NEGATIVE Negative
[2023-12-27 11:29] LABS: Bacteria 0 SEEN /hpf (None Seen); Mucous, Urine 0 SEEN /hpf (<or=2+); Red Blood Cells-Urine 0 SEEN /hpf (0-5)
[2023-12-27 11:31] LABS: AST(SGOT) 1086 U/L (15-37); Alanine Aminotransfer ALT/SGPT 1275 U/L (13-56); Albumin, Serum 4.2 g/dL (3.2-5.0); Alkaline Phosphatase 73 U/L (45-117); Anion Gap 12 (5-15); BUN 30 mg/dL (7-18); BUN/Creat Ratio 11.5 RATIO (10-20); Bilirubin, Direct 0.35 mg/dL (0.00-0.30); Calcium,Total 10.2 mg/dL (8.5-10.1); Chloride 108 mmol/L (98-107); Creatinine, Serum 2.62 mg/dL (0.55-1.02); EST Glomerular Filtration Rate 22 mL/min (>60); Est Glom Filt Rate - Afr Amer 27 mL/min (>60); Estimated Creatinine Clearance 27.53 ml/min; Globulin 4.9 g/dL (2.2-4.2); Glucose 128 mg/dL (74-106); Lipase 45 U/L (13-75); Potassium 3.8 mmol/L (3.5-5.1); Protein, Total 9.1 g/dL (6.4-8.2); Sodium Level 140 mmol/L (136-145)
[2023-12-27 11:31] LABS: Color, Urine Yellow (Yellow); Glucose, Dipstick Normal (Normal); Ketone-Dipstick 50 mg/dl (Negative); Leukocyte Esterase-Dipstick 100 /ul (Negative); Nitrite-Dipstick Negative (Negative); Occult Blood-Urine 10 /ul (Negative); Protein-Dipstick 100 mg/dl (Negative); Specific Gravity, Urine 1.015 (1.002-1.030); Urine Bilirubin Dipstick Negative (Negative); Urine Clarity Sl. Cloudy (Clear); Urine Urobilinogen Normal (Normal)
[2023-12-27 11:41] LABS: Amorphous Sediment 1+; Squamous Epithelial Cells - UA 10-25 SEEN /hpf (5-10); White Blood Cells 0-5 SEEN /hpf (0-5)
[2023-12-27 12:28] VITALS: PULSE 64; RESP 16; O2SAT 97
[2023-12-27] MEDS: 0.9% Normal Saline (1000mL) 1,000 ML 150 ML IV (12:48)
[2023-12-27] MEDS: Ondansetron 4 MG/2 ML Vial IV (12:48)
[2023-12-27 13:22] LABS: Erythrocyte Sedimentation Rate 14 mm/hr (0-30)
[2023-12-27 13:26] LABS: Acetaminophen (Tylenol) Level < 2.0 ug/mL (10.0-30.0)
[2023-12-27 13:29] LABS: CPK Total, Creatine Kinase 60 U/L (26-192); CRP < 2.90 mg/L (0.0-3.0)
[2023-12-27 14:00] VITALS: PULSE 77; RESP 16; TEMP 36.6; O2SAT 95
[2023-12-27 14:02] LABS: Amphetamine Urine VISTA NEGATIVE (<1000 ng/mL); Barbiturate Urine VISTA NEGATIVE (< 200 ng/mL); Benzodiazepine Urine VISTA NEGATIVE (< 200 ng/mL); Cocaine Urine VISTA NEGATIVE (< 300 ng/mL); Ecstacy Urine VISTA NEGATIVE (< 500 ng/mL); Methadone Urine VISTA NEGATIVE (< 300 ng/mL); PCP Urine VISTA NEGATIVE (< 25 ng/mL); THC Urine VISTA POSITIVE (< 50 ng/mL); Vista UDS pH Range 5
[2023-12-27] MEDS: Pantoprazole Sodium 40 MG in 0.9% Normal Saline (100mL MB+) 100 ML 330 MG IV (14:03)
[2023-12-27 14:26] LABS: International Normalized Ratio 1.1; Partial Thromboplast Time 29.2 Seconds (24.1-36.2); Prothrombin Time (Protime)PT. 14.3 SECONDS (11.7-14.9)
[2023-12-27 14:52] VITALS: BP 115/74; PULSE 77; RESP 16; TEMP 36.6; O2SAT 96
== END 2023-12-27 14:55 | disposition home or self-care (01) ==
PROVIDERS: Emergency Provider Emergency Medicine; PCP Internal Medicine; Visit Provider Emergency Medicine
DX: R10.9 Unspecified abdominal pain (principal); F31.9 Bipolar disorder, unspecified; R79.89 Other specified abnormal findings of blood chemistry; R11.10 Vomiting, unspecified; F15.90 Other stimulant use, unspecified, uncomplicated; Q60.0 Renal agenesis, unilateral; F10.10 Alcohol abuse, uncomplicated; F17.210 Nicotine dependence, cigarettes, uncomplicated; Z86.16 Personal history of COVID-19; E05.90 Thyrotoxicosis, unspecified without thyrotoxic crisis or storm; Z79.899 Other long term (current) drug therapy
CPT/HCPCS: 74176; 80048; 80074; 80076; 80307; 80329; 81001; 82085; 82550; 83690; 84703; 85025; 85610; 85652; 85730; 86140; 86644; 86645; 86663; 86665; 96361; 96374; 96375; 99283; J7030; A4216; G0480; J2405

== ENCOUNTER 2024-01-16 15:30 | Emergency (ER) | payer MEDICAID, SELFPAY ==
[2024-01-16 15:31] VITALS: BP 99/71; PULSE 98; RESP 16; TEMP 36.8; O2SAT 99; BMI 18.5
--- NOTE | 2024-01-16 15:56 | CT_ITS ---
STUDY: CT ABDOMEN AND PELVIS WITHOUT CONTRAST REASON FOR EXAM: Female, 33 years old. left flank pain, solitary kidney RADIATION DOSAGE (If Supplied By Facility): CTDIvol = ( 6.06 ) mGy, DLP = ( 304.54 ) mGycm TECHNIQUE: Transaxial images were obtained from the dome of the diaphragm to the symphysis pubis without oral contrast, and without intravenous contrast. Sagittal and coronal images were reconstructed. Individualized dose optimization techniques were used for this CT. COMPARISON: December 27, 2023 FINDINGS: The visualized lung bases are unremarkable. The visualized portions of the heart are within normal limits. Normal liver. Normal gallbladder and extrahepatic biliary system. Normal spleen. Normal pancreas. Normal bilateral adrenal glands. Right kidney is not visualized.. There is mild pelvocaliectasis or possibly parapelvic cysts of the left kidney, and mild prominence of the proximal left ureter without ureteral calculus. This may be due to inflammatory disease as there appears to be some mild thickening of the holder of the proximal ureter as well.. There is no definite mass although examination is limited without contrast. Normal visualized stomach. Mild nonspecific ileus.. Diffuse fecal retention noted within the ascending and transverse colon which appeared dilated with decompression at the level of the proximal descending colon. The splenic flexure is elevated just below the diaphragm which raises question of splenic flexure syndrome There is a mobile cecum crossing the midline above the dome of the bladder. The appendix is visualized and appears normal. Minor atherosclerotic changes of the aorta without evidence for aneurysm. Normal inferior vena cava. Normal retroperitoneum. Normal urinary bladder. There is soft tissue mass the pelvis on the right possibly representing deviated uterus and right adnexa unchanged since previous studies dating back to November 10, 2020 Normal abdominal wall. Normal osseous structures. CT/Abdomen/Pelvis without Cont IMPRESSION: Nonspecific ileus with diffuse fecal retention in the colon which appears to decompressed at the level of the proximal descending colon. There is a high riding splenic flexure below left hemidiaphragm possibly representing changes of splenic flexure syndrome Mild left renal pelvocaliectasis or possibly parapelvic cysts in left kidney without evidence for gross hydronephrosis or ureteral calculus Repeat exam with IV contrast would be useful for more definitive evaluation if indicated Electronically Signed: Modesto Hart MD at 17:14 EDT ,
--- NOTE | 2024-01-16 15:57 | EDS_ITS ---
HPI History of Present Illness Chief Complaint: Flank Pain Informant: patient Onset/Context/Timing Onset: Days (Two days) Narrative Narrative: Patient presents secondary to left flank pain for the past 2 days. She has a solitary kidney on the left. Patient does have dysuria and frequency. She denies history of kidney stone. Patient has had recent GI problems. She was seen here earlier this month and found to have significantly elevated LFTs. She states they believe it is secondary to her Depakote so she stopped taking this. She has not had her labs rechecked since that time. [facility] Medical History Substance abuse Alcohol abuse Bipolar disorder Hyperthyroidism Kidney disease Pancreatitis Tobacco abuse COVID-19 Flu vaccine need Tachycardia IBS (irritable bowel syndrome) Wears glasses Depression Anxiety History of renal disease Hepatitis Migraine headache Smoker History of imperforate anus Hydronephrosis Migraine Menometrorrhagia Deafness in left ear Pancreatitis Chronic headaches Drug abuse Asthma Anemia Seasonal allergies demise > 22 weeks, delivered, current hospitalization Home Medications ?Medication ?Instructions ?Recorded ?Last Taken ?Type sertraline 25 mg tablet 25 mg PO DAILY depression #90 tabs 08/26/21 10/20/21 Rx buprenorphine 4 mg-naloxone 1 mg 1 film sublingual BID ADDICTION 10/21/21 10/21/21 History sublingual film (Suboxone) valacyclovir 500 mg tablet 500 mg PO DAILY INFECTION 10/21/21 10/20/21 History losartan 25 mg tablet 25 mg PO DAILY #0 tabs 10/24/21 Unknown Rx aripiprazole 10 mg tablet 10 mg PO DAILY MOOD #30 tabs 10/27/21 Unknown Rx levothyroxine 150 mcg tablet 150 mcg PO DAILY THYROID #30 tabs 10/27/21 Unknown Rx amitriptyline 10 mg tablet 10 mg PO QHS 08/03/23 Unknown History montelukast 10 mg tablet 10 mg PO QHS 08/03/23 Unknown History rimegepant 75 mg disintegrating 75 mg PO DAILY PRN migraine 08/03/23 Unknown History tablet (Nurtec ODT) headache ciprofloxacin HCl 500 mg tablet 500 mg PO BID #14 TABLETS 09/09/23 Unknown Rx ondansetron 4 mg disintegrating 4 mg PO Q8H PRN PRN Nausea #20 tabs 09/09/23 Unknown Rx tablet metoclopramide HCl 10 mg tablet 10 mg PO Q6H PRN nausea and 12/27/23 Unknown Rx (Reglan) vomiting #14 tabs ondansetron 4 mg disintegrating 4 mg PO Q8H PRN PRN Nausea #10 tabs 12/27/23 Unknown Rx tablet ciprofloxacin HCl 250 mg tablet 250 mg PO BID #20 tabs 01/16/24 Unknown Rx (Cipro) Allergy/AdvReac Type Severity Reaction Status Date / Time ceftriaxone (From Rocephin) Allergy Unknown Verified 01/16/24 15:31 ceftriaxone sodium (From Allergy Hives Verified 01/16/24 15:31 Rocephin) droperidol Allergy Unknown Verified 01/16/24 15:31 Family History Mother Depression Hypertension Mental disorder Thyroid disorder Aunt Diabetes Grandfather Alcoholism Cancer Surgical History History of removal of Port-a-Cath Hx of surgical procedure Hx of cystoscopy Social History household members: none Smoking Status: Current every day smoker tobacco type: cigarettes alcohol intake: never substance use type: crack/cocaine, heroin and other details: Currently snorts 1/2 gm daily of each heroin and cocaine. Also uses meth. what type of physical activity do you participate in: aerobics and weight training frequency: 3-4 times per week ROS ROS ED Constitutional Constitutional ED: Denies chills or fever(s) Eyes Eyes: Denies discharge from eye(s) ENT ENT ED: Denies discharge from eye(s), rhinorrhea or sore throat Cardiovascular Cardiovascular: Denies chest pain or palpitations Respiratory/Chest Respiratory/Chest: Denies cough or dyspnea Gastrointestinal Gastrointestinal: Reports abdominal pain and nausea; Denies diarrhea or vomiting Genitourinary Genitourinary ED: Reports dysuria and urinary frequency Musculoskeletal Musculoskeletal: Reports back pain; Denies extremity pain Integumentary Denies Abrasions or rash Neurologic Neurologic: Denies headache(s) or weakness Psychiatric Psychiatric: Reports anxiety; Denies depression Allergic/Immunologic Allergic/Immunologic ED: Denies lip swelling or urticaria EXAM Physical Exam Const Vital Signs: 01/16/24 15:31 07/23/24 17:31 Temperature 98.2 F Temperature Source Oral Pulse Rate 98 58 L Respiratory Rate 16 16 Blood Pressure 99/71 114/75 Blood Pressure Mean 80 88 Pulse Ox 99 98 Oxygen Delivery Method Room Air Room Air Positive well nourished and well developed General Appearance ED: well developed HEENT Reports moist mucous membranes Chest Wall inspection of chest normal and palpation of chest normal Resp normal respiratory effort and clear to auscultation bilaterally Cardio regular rate and regular rhythm GI GI Narrative: Abdomen soft with mild diffuse tenderness. No guarding or rebound. Active bowel sounds are noted. Back/Spine General Back: CVA tenderness left Extremity normal to inspection Neuro oriented x3 Skin no rashes or lesions noted MDM MDM MDM Narrative Medical decision making narrative: IV line established. Patient given dose of fentanyl and Zofran along with IV fluids. Labwork obtained to evaluate for leukocytosis, anemia, and electrolyte derangement. Urinalysis obtained to evaluate for infection/hematuria. Urine culture will be obtained. Given the patient has a single kidney with left flank pain we will obtain a CT flank to ensure no evidence of ureteral obstruction. History & Record Review Discussion w/independent historian: Patient Additional record(s) reviewed:: Prior ED visit and Prior labs Lab Data Attestation: I reviewed the patient's lab results. Labs: Laboratory Results - last 24 hr 01/16/24 01/16/24 15:59 16:25 WBC 6.3 RBC 4.09 L Hgb 11.9 L Hct 36.9 L MCV 90.2 MCH 29.1 MCHC 32.2 RDW Std Deviation 45.2 H RDW Coeff of Maki 13.7 Plt Count 196 MPV 11.1 Immature Gran % (Auto) 0.200 Neut % (Auto) 52.6 Lymph % (Auto) 35.0 Gage % (Auto) 6.9 Eos % (Auto) 4.5 Baso % (Auto) 0.8 Absolute Neuts (auto) 3.3 Absolute Lymphs (auto) 2.19 Nucleated RBC % 0 Sodium 141 Potassium 3.6 Chloride 114 H Carbon Dioxide 17.0 L Anion Gap 10 BUN 19 H Creatinine 2.22 H Estim Creat Clear Calc 32.37 Est GFR (MDRD) Af Amer 33 L Est GFR (MDRD) Non-Af 27 L BUN/Creatinine Ratio 8.6 L Glucose 103 Calcium 8.9 Total Bilirubin 0.40 AST 19 ALT 30 Alkaline Phosphatase 63 Total Protein 7.5 Albumin 3.6 Globulin 3.9 Albumin/Globulin Ratio 0.9 Serum , Qual NEGATIVE Urine Color Yellow Urine Clarity Turbid Urine pH 6.0 Ur Specific Lawson 1.015 Urine Protein 100 H Urine Glucose (UA) Normal Urine Ketones Negative Urine Occult Blood 50 H Urine Nitrite Positive H Urine Bilirubin Negative Urine Urobilinogen Normal Ur Leukocyte Esterase 500 H Urine RBC 5-10 SEEN Urine WBC >100 SEEN Ur Squamous Epith Cells 0-5 SEEN Urine Bacteria 4+ Urine Mucus 0 SEEN Radiography Diagnostic Testing: Clinical Impression(s) from Imaging Studies Abdomen/Pelvis CT 01/16/24 15:56 IMPRESSION: Nonspecific ileus with diffuse fecal retention in the colon which appears to decompressed at the level of the proximal descending colon. There is a high riding splenic flexure below left hemidiaphragm possibly representing changes of splenic flexure syndrome Mild left renal pelvocaliectasis or possibly parapelvic cysts in left kidney without evidence for gross hydronephrosis or ureteral calculus Repeat exam with IV contrast would be useful for more definitive evaluation if indicated Electronically Signed: Modesto Hart MD at 17:14 EDT Reading Location ID and State: [facility] / [place] Tel , Service support , Treatment and Re-Evaluation :: Repeat evaluation patient resting comfortably. CBC was normal white count 6.3 with normal differential. Hemoglobin is 11.9. Chemistry studies reveal a bicarb of 17 which appears chronic for her. BUN is 19 and creatinine is 2.22. This again, is consistent with her prior values. LFTs which were significantly elevated on prior visit are now back to normal. test negative. Urinalysis does reveal 4+ bacteria with greater than 100 white cells and 0-5 epithelial cells. Nitrites are positive. CT scan of the flank reveals nonspecific ileus with diffuse fecal retention. Mild left renal pelvocaliectasis or possible parapelvic cyst in the left kidney without evidence for gross hydronephrosis or ureteral calculus. Test results discussed with the patient. She states typically her urinary infections respond well to Cipro. Her creatinine clearance is 32.37 so she stil l qualifies for acute 12-hour dosing, however because her last creatinine clearance was only 27 I will treat her with 250 mg every 12. She was advised that urine culture was sent. Return instructions were provided. Patient comfortable with the plan. Discharge Plan Triage Chief Complaint: Flank Pain ED Provider: Mayuri Smith Dx/Rx/DC Orders Clinical Impression: Pyelonephritis Instructions: ED Pyelonephritis, Female (Adult) Prescriptions: New ciprofloxacin HCl [Cipro] 250 mg tablet 250 mg PO BID Qty: 20 0RF No Action valacyclovir 500 mg tablet 500 mg PO DAILY buprenorphine-naloxone [Suboxone] 4-1 mg Film 1 film SUBLINGUAL BID Patient Comments: CALLED TO VERIFY SUBOXONE WITH A [facility] IN [place]. PT JUST STARTED TREATMENT WITH [facility] AND NEW RX WAS FILLED AND CANCELED YESTERDAY FOR THE SUBOXONE 4-1 FILM BID. A [facility] CL[facility] STATED PT DID NOT PICK-UP AND RX WAS CANCELED. losartan 25 mg Tablet 25 mg PO DAILY Qty: 0 0RF amitriptyline 10 mg tablet 10 mg PO QHS Patient Comments: Take 1 tablet (10 mg) by mouth Nightly. montelukast 10 mg tablet 10 mg PO QHS Patient Comments: take 1 tablet by mouth at bedtime Nurtec ODT 75 mg tablet,disintegrating 75 mg PO DAILY PRN (Reason: migraine headache) ciprofloxacin HCl 500 mg tablet 500 mg PO BID Qty: 14 0RF ondansetron 4 mg tablet,disintegrating 4 mg PO Q8H PRN PRN (Reason: Nausea) Qty: 20 0RF ondansetron 4 mg tablet,disintegrating 4 mg PO Q8H PRN PRN (Reason: Nausea) Qty: 10 0RF metoclopramide HCl [Reglan] 10 mg tablet 10 mg PO Q6H PRN (Reason: nausea and vomiting) Qty: 14 0RF sertraline 25 mg tablet 25 mg PO DAILY Qty: 90 3RF aripiprazole 10 mg tablet 10 mg PO DAILY Qty: 30 2RF levothyroxine 150 mcg tablet 150 mcg PO DAILY Qty: 30 2RF Primary Care Provider: Ramya Ferrer Referrals: Ramya Ferrer MD [Primary Care Provider] - 1-2 Weeks Print Language: Greenlandic Disposition Disposition: Home, Self Care
[2024-01-16] MEDS: Ondansetron 4 MG/2 ML Vial IV (16:10)
[2024-01-16] MEDS: fentaNYL 100 MCG/2 ML Ampul 25 MCG IV (16:11)
[2024-01-16] MEDS: 0.9% Normal Saline (1000mL) 1,000 ML 150 ML IV (16:13)
[2024-01-16 16:24] LABS: Absolute Lymphocyte Count 2.19 X10^3/uL (0.83-4.51); Absolute Neutrophil Count 3.3 X10^3/uL (2.0-7.7); Basophil# 0.05 X10^3/uL; Basophil% 0.8 % (0-1); Eosinophil# 0.28 X10^3/uL; Eosinophils% 4.5 % (0-5); Hematocrit 36.9 % (37-47); Hemoglobin 11.9 g/dL (12.0-15.0); Lymphocyte # 2.19 X10^3/ul (0.83-4.51); Mean Corp Hgb Conc 32.2 g/dL (32-36); Mean Corpuscular Hgb 29.1 pg (27.0-32.0); Mean Corpuscular Volume 90.2 fL (81-99); Mean Platelet Vol. 11.1 fl (6.2-12.0); Monocyte# 0.43 X10^3/uL; Monocyte% 6.9 % (0-10); NRBC Flagged by Analyzer 0 % (0-5); Neutrophil % 52.6 % (47-70); Platelet Count 196 K/mm3 (150-450); RBC Distribution Width CV 13.7 % (11.6-14.6); RBC Distribution Width SD 45.2 fl (35.1-43.9); Red Blood Count 4.09 M/mm3 (4.2-5.4); White Blood Count 6.3 K/mm3 (4.4-11.0)
[2024-01-16 16:25] LABS: Internal QC Validated? YES +Cl - CLEAR BKGD; Pregnancy, Serum, hCG Quali. NEGATIVE Negative
[2024-01-16 16:28] LABS: Mucous, Urine 0 SEEN /hpf (<or=2+)
[2024-01-16 16:31] LABS: Color, Urine Yellow (Yellow); Glucose, Dipstick Normal (Normal); Ketone-Dipstick Negative (Negative); Leukocyte Esterase-Dipstick 500 /ul (Negative); Nitrite-Dipstick Positive (Negative); Occult Blood-Urine 50 /ul (Negative); Protein-Dipstick 100 mg/dl (Negative); Specific Gravity, Urine 1.015 (1.002-1.030); Urine Bilirubin Dipstick Negative (Negative); Urine Clarity Turbid (Clear); Urine Urobilinogen Normal (Normal)
[2024-01-16 16:35] LABS: ALB/GLOB Ratio 0.9 RATIO (0.9-2.4); AST(SGOT) 19 U/L (15-37); Alanine Aminotransfer ALT/SGPT 30 U/L (13-56); Albumin, Serum 3.6 g/dL (3.2-5.0); Alkaline Phosphatase 63 U/L (45-117); Anion Gap 10 (5-15); BUN 19 mg/dL (7-18); BUN/Creat Ratio 8.6 RATIO (10-20); Calcium,Total 8.9 mg/dL (8.5-10.1); Chloride 114 mmol/L (98-107); Creatinine, Serum 2.22 mg/dL (0.55-1.02); EST Glomerular Filtration Rate 27 mL/min (>60); Est Glom Filt Rate - Afr Amer 33 mL/min (>60); Estimated Creatinine Clearance 32.37 ml/min; Globulin 3.9 g/dL (2.2-4.2); Glucose 103 mg/dL (74-106); Potassium 3.6 mmol/L (3.5-5.1); Protein, Total 7.5 g/dL (6.4-8.2); Sodium Level 141 mmol/L (136-145)
[2024-01-16 17:02] LABS: Bacteria 4+ /hpf (None Seen); Squamous Epithelial Cells - UA 0-5 SEEN /hpf (5-10); White Blood Cells >100 SEEN /hpf (0-5)
[2024-01-16 17:03] LABS: Red Blood Cells-Urine 5-10 SEEN /hpf (0-5)
[2024-01-16 17:31] VITALS: BP 114/75; PULSE 58; RESP 16; O2SAT 98
[2024-01-16] MEDS: Ciprofloxacin 250 MG Tablet PO (18:55)
[2024-01-16 18:58] VITALS: BP 128/96; PULSE 83; RESP 18; TEMP 36.2; O2SAT 97
== END 2024-01-16 18:58 | disposition home or self-care (01) ==
PROVIDERS: Emergency Provider Emergency Medicine; PCP Internal Medicine; Visit Provider Emergency Medicine
DX: N12 Tubulo-interstitial nephritis, not specified as acute or chronic (principal); F14.10 Cocaine abuse, uncomplicated; F11.10 Opioid abuse, uncomplicated; F15.10 Other stimulant abuse, uncomplicated; Z90.5 Acquired absence of kidney; F17.210 Nicotine dependence, cigarettes, uncomplicated; Z86.16 Personal history of COVID-19
CPT/HCPCS: 74176; 80053; 81001; 84703; 85025; 87077; 87086; 87088; 87186; 96361; 96374; 96375; 99283; J7030; A4216; J2405

== ENCOUNTER 2024-09-04 15:04 | Emergency (ER) | payer MEDICAID, SELFPAY ==
[2024-09-04 15:05] VITALS: BP 135/70; PULSE 86; RESP 15; TEMP 36.3; O2SAT 100; BMI 18.0
--- NOTE | 2024-09-04 15:34 | CT_ITS ---
PROCEDURE: CT abdomen pelvis without IV contrast REASON FOR EXAM: PAIN TECHNIQUE: Multiple contiguous axial images through the abdomen and pelvis were obtained without the administration of intravenous contrast. Two-dimensional coronal and sagittal reformatted images were reconstructed. Low-dose imaging technique was utilized. COMPARISON: 01/16/2024 FINDINGS: Lung bases are clear. Unenhanced liver, spleen, pancreas and adrenal glands are within normal limits. Gallbladder is contracted. No significant biliary ductal dilation. Right kidney is not present within the right renal fossa. Unchanged mild/moderate left hydroureteronephrosis without an obstructing calculus. Abnormal lobular morphology of the left kidney, similar to prior exams. Unchanged soft tissue density in the right adnexa which may represent a pelvic kidney. Urinary bladder is within normal limits. No bowel obstruction, focal bowel wall thickening or significant perienteric inflammation. No pelvic free fluid. No free air. No abdominal aortic aneurysm or bulky adenopathy. Superficial soft tissues are intact. No acute osseous abnormality. CT/Abdomen/Pelvis without Cont IMPRESSION: 1. No definite acute process. 2. Unchanged mild/moderate left hydroureteronephrosis without an obstructing ca lculus. 3. Probable right pelvic kidney, unchanged from prior. One or more dose reduction techniques were used (e.g., Automated exposure contr ol, adjustment of the mA and/or kV according to patient size, use of iterative reconstruction technique). Reading Location: [facility]
--- NOTE | 2024-09-04 15:34 | EDS_ITS ---
HPI HPI - GI History of Present Illness Chief Complaint: Nausea/Vomiting Narrative Narrative: 33-year-old female past medical history of stage IV kidney disease, solitary congenital kidney, history of Hodgkin's lymphoma, presents with nausea and vomiting that she has had for about a week. She states it is intermittent. Sometimes she is able to tolerate food, other times she is not. She denies any fevers or chills, and may have diffuse abdominal cramping but denies any epigastric pain. She does occasionally use marijuana and does take Suboxone. She is concerned that she be dehydrated as well. She is unsure as to the cause of why she vomits but she does state that she has been through multiple life stressors recently. [facility] Medical History Substance abuse Alcohol abuse Bipolar disorder Hyperthyroidism Kidney disease Pancreatitis Tobacco abuse COVID-19 Flu vaccine need Tachycardia IBS (irritable bowel syndrome) Wears glasses Depression Anxiety History of renal disease Hepatitis Migraine headache Smoker History of imperforate anus Hydronephrosis Migraine Menometrorrhagia Deafness in left ear Pancreatitis Chronic headaches Drug abuse Asthma Anemia Seasonal allergies demise > 22 weeks, delivered, current hospitalization Home Medications ?Medication ?Instructions ?Recorded ?Last Taken ?Type sertraline 25 mg tablet 25 mg PO DAILY depression #9 0 tabs 08/26/21 10/20/21 Rx buprenorphine 4 mg-naloxone 1 mg 1 film sublingual BID ADDICTION 10/21/21 10/21/21 History sublingual film (Suboxone) valacyclovir 500 mg tablet 500 mg PO DAILY INFECTION 0 10/21/21 10/20/21 History losartan 25 mg tablet 25 mg PO DAILY #0 tabs 10/24 Unknown Rx aripiprazole 10 mg tablet 10 mg PO DAILY MOOD #30 tabs 10/27/21 Unknown Rx levothyroxine 150 mcg tablet 150 mcg PO DAILY THYROID #30 tabs 10/27/21 Unknown Rx amitriptyline 10 mg tablet 10 mg PO QHS 08/03/23 Unkno wn History montelukast 10 mg tablet 10 mg PO QHS 08/03/23 Unknow n History rimegepant 75 mg disintegrating 75 mg PO DAILY PRN oscar tana 08/03/23 Unknown History tablet (Nurtec ODT) headache ciprofloxacin HCl 500 mg tablet 500 mg PO BID #14 TABL ETS 09/09/23 Unknown Rx ondansetron 4 mg disintegrating 4 mg PO Q8H PRN PRN Na usea #20 tabs 09/09/23 Unknown Rx tablet metoclopramide HCl 10 mg tablet 10 mg PO Q6H PRN nause a and 12/27/23 Unknown Rx (Reglan) vomiting #14 tabs ondansetron 4 mg disintegrating 4 mg PO Q8H PRN PRN Na usea #10 tabs 12/27/23 Unknown Rx tablet ciprofloxacin HCl 250 mg tablet 250 mg PO BID #20 tabs 01/16/24 Unknown Rx (Cipro) omeprazole 20 mg capsule,delayed 20 mg PO DAILY #14 CA PSULES 09/04/24 Unknown Rx release ondansetron 4 mg disintegrating 4 mg PO Q8H PRN PRN Na usea #15 tabs 09/04/24 Unknown Rx tablet Allergy/AdvReac Type Severity Reaction Status Date / Time ceftriaxone (From Rocephin) Allergy Unknown Verified 09/04/24 15:07 ceftriaxone sodium (From Allergy Hives Verified 09/04/24 15:07 Rocephin) droperidol Allergy Unknown Verified 09/04/24 15:07 Family History Mother Depression Hypertension Mental disorder Thyroid disorder Aunt Diabetes Grandfather Alcoholism Cancer Surgical History History of removal of Port-a-Cath Hx of surgical procedure Hx of cystoscopy Social History household members: none Smoking Status: Current every day smoker tobacco type: cigarettes alcohol intake: never substance use type: crack/cocaine, heroin and other details: Currently snorts 1/2 gm daily of each heroin and cocaine. Also uses meth. what type of physical activity do you participate in: aerobics and weight training frequency: 3-4 times per week ROS ROS ED ROS Narrative Constitutional: No fever, no chills. Cardiovascular: No chest pain. No palpitations. No pedal edema. Respiratory: No cough, no shortness of breath. Abdominal: Diffuse abdominal pain. Positive nausea and vomiting, intermittent x 1 week, last today after eating. No joyce hematemesis. Genitourinary: No dysuria. No hematuria. Musculoskeletal: No myalgias. No arthralgias. Neurologic: No headaches. No dizziness. No lightheadedness. Psychiatric: No depression. No anxiety. EXAM Physical Exam Narrative Exam Narrative: Afebrile. Vital signs noted. Nontoxic-appearing. Cardiovascular examination reveals regular rate and rhythm. Lungs are clear to auscultation bilaterally. Abdomen is soft and nontender without guarding or rebound. Positive bowel sounds. Neurological examination is nonfocal and nonlateralizing. Ambulatory to door of room without difficulty. Able to transfer to cot. Const Vital Signs: 09/04/24 15:05 09/04/24 17:04 Temperature 97.3 F L 98.7 F Temperature Source Temporal Oral Pulse Rate 86 64 Respiratory Rate 15 18 Blood Pressure 135/70 H 128/78 H Blood Pressure Mean 91 94 Pulse Ox 100 98 Oxygen Delivery Method Room Air Room Air MDM MDM MDM Narrative Medical decision making narrative: Differential diagnosis includes but not limited to gastritis versus pancreatitis versus bowel obstruction. She does use marijuana and she may have hyperemesis, but she states she was tested for that and that is negative. She may have peptic ulcer disease as well. Comprehensive workup was pursued especially because she has history of solitary kidney. She was administered ondansetron for nausea. CBC, CMP, these were obtained to help rule out pancreatitis. Additionally, serum test will be obtained as well although she has an implantable control. I reviewed her laboratory work and she has normal white count of 5.4 with hemoglobin stable at 10.9, hematocrit 32.9, platelet count normal at 167. BUN is elevated 24 with creatinine 2.24. When compared to prior labs, this is around her baseline with her chronic kidney disease. Serum is negative. LFTs are grossly unremarkable. Lipase normal at 42 so I doubt pancreatitis. Urinalysis shows 0-5 white cells and negative nitrites. I do not feel antibiotics are indicated. It may also be a contaminated specimen. CT of the abdomen and pelvis without contrast obtained and reviewed. While she has left hydronephrosis/hydroureter there is no obstructing stone. She has a right pelvic kidney. No significant change from previous. Repeat examination shows her resting on the cot comfortably. I feel she can be discharged to follow-up. With the thought that she may have gastritis she was written for omeprazole 20 mg and also given Zofran which she has been prescribed in the past. I feel she can be discharged to follow-up with her primary care provider. Return instructions reviewed. Disposition is discharged home in stable condition. History & Record Review Discussion w/independent historian: Patient Lab Data Attestation: I reviewed the patient's lab results. Labs: Laboratory Results - last 24 hr 09/04/24 09/04/24 15:58 16:00 WBC 5.4 RBC 3.77 L Hgb 10.9 L Hct 32.9 L MCV 87.3 MCH 28.9 MCHC 33.1 RDW Std Deviation 39.8 RDW Coeff of Maki 12.3 Plt Count 167 MPV 10.4 Immature Gran % (Auto) 0.400 Neut % (Auto) 71.4 H Lymph % (Auto) 22.9 [place] % (Auto) 3.9 Eos % (Auto) 0.7 Baso % (Auto) 0.7 Absolute Neuts (auto) 3.9 Absolute Lymphs (auto) 1.24 Nucleated RBC % 0 Sodium 135 Potassium 4.1 Chloride 102 Carbon Dioxide 22.3 Anion Gap 11 BUN 24 H Creatinine 2.24 H Estim Creat Clear Calc 31.21 L Est GFR (MDRD) Non-Af 29 L BUN/Creatinine Ratio 10.8 Glucose 126 H Calcium 9.2 Total Bilirubin 0.23 AST 17 ALT 12 Alkaline Phosphatase 85 Total Protein 6.7 Albumin 3.9 Globulin 2.8 Albumin/Globulin Ratio 1.4 Lipase 42 Serum , Qual NEGATIVE Urine Color Yellow Urine Clarity Clear Urine pH 6.5 Ur Specific [place] 1.010 Urine Protein 100 H Urine Glucose (UA) Normal Urine Ketones Negative Urine Occult Blood Negative Urine Nitrite Negative Urine Bilirubin Negative Urine Urobilinogen Normal Ur Leukocyte Esterase 25 H Urine RBC 0 SEEN Urine WBC 0-5 SEEN Ur Squamous Epith Cells 5-10 SEEN Urine Bacteria RARE Urine Mucus 0 SEEN Radiography Diagnostic Testing: Clinical Impression(s) from Imaging Studies Abdomen/Pelvis CT 09/04/24 15:34 IMPRESSION: 1. No definite acute process. 2. Unchanged mild/moderate left hydroureteronephrosis without an obstructing calculus. 3. Probable right pelvic kidney, unchanged from prior. One or more dose reduction techniques were used (e.g., Automated exposure control, adjustment of the mA and/or kV according to patient size, use of iterative reconstruction technique). [facility] Triage Chief Complaint: Nausea/Vomiting ED Provider: Collin Arechiga Dx/Rx/DC Orders Clinical Impression: Nausea and vomiting, Abdominal pain Instructions: ED Abdominal Pain Unkn Cause Fem, ED Vomiting (Adult) Prescriptions: New ondansetron 4 mg tablet,disintegrating 4 mg PO Q8H PRN PRN (Reason: Nausea) Qty: 15 0RF omeprazole 20 mg capsule,delayed release(DR/EC) 20 mg PO DAILY Qty: 14 0RF No Action valacyclovir 500 mg tablet 500 mg PO DAILY buprenorphine-naloxone [Suboxone] 4-1 mg Film 1 film SUBLINGUAL BID Patient Comments: CALLED TO VERIFY SUBOXONE WITH A NEW [facility] IN [place]. PT JUST STARTED TREATMENT WITH [facility] AND NEW RX WAS FILLED AND CANCELED YESTERDAY FOR THE SUBOXONE 4-1 FILM BID. A [facility] CL[facility] STATED PT DID NOT PICK-UP AND RX WAS CANCELED. losartan 25 mg Tablet 25 mg PO DAILY Qty: 0 0RF amitriptyline 10 mg tablet 10 mg PO QHS Patient Comments: Take 1 tablet (10 mg) by mouth Nightly. montelukast 10 mg tablet 10 mg PO QHS Patient Comments: take 1 tablet by mouth at bedtime Nurtec ODT 75 mg tablet,disintegrating 75 mg PO DAILY PRN (Reason: migraine headache) ciprofloxacin HCl 500 mg tablet 500 mg PO BID Qty: 14 0RF ondansetron 4 mg tablet,disintegrating 4 mg PO Q8H PRN PRN (Reason: Nausea) Qty: 20 0RF ondansetron 4 mg tablet,disintegrating 4 mg PO Q8H PRN PRN (Reason: Nausea) Qty: 10 0RF metoclopramide HCl [Reglan] 10 mg tablet 10 mg PO Q6H PRN (Reason: nausea and vomiting) Qty: 14 0RF ciprofloxacin HCl [Cipro] 250 mg tablet 250 mg PO BID Qty: 20 0RF sertraline 25 mg tablet 25 mg PO DAILY Qty: 90 3RF aripiprazole 10 mg tablet 10 mg PO DAILY Qty: 30 2RF levothyroxine 150 mcg tablet 150 mcg PO DAILY Qty: 30 2RF Stand Alone Forms: ED Work / School Excuse Primary Care Provider: Ramya Ferrer Referrals: Ramya Ferrer MD [Primary Care Provider] - 3-5 Days if not improving Activity Restrictions/Additional Instructions: Return with fever, increased pain, new or worsening symptoms. Follow-up with your primary care provider. You may need referral to gastroenterology. Print Language: Belarusian Disposition Disposition: Home, Self Care
[2024-09-04] MEDS: Ondansetron 4 MG/2 ML Vial IV (15:54)
[2024-09-04] MEDS: 0.9% Normal Saline (1000mL) 1,000 ML 999 ML IV (15:54)
[2024-09-04 16:09] LABS: Mucous, Urine 0 SEEN /hpf (<or=2+)
[2024-09-04 16:15] LABS: Absolute Lymphocyte Count 1.24 X10^3/uL (0.83-4.51); Absolute Neutrophil Count 3.9 X10^3/uL (2.0-7.7); Basophil# 0.04 X10^3/uL; Basophil% 0.7 % (0-1); Eosinophil# 0.04 X10^3/uL; Eosinophils% 0.7 % (0-5); Hematocrit 32.9 % (37-47); Hemoglobin 10.9 g/dL (12.0-15.0); Lymphocyte # 1.24 X10^3/ul (0.83-4.51); Lymphocyte % 22.9 % (19-41); Mean Corp Hgb Conc 33.1 g/dL (32-36); Mean Corpuscular Hgb 28.9 pg (27.0-32.0); Mean Corpuscular Volume 87.3 fL (81-99); Mean Platelet Vol. 10.4 fl (6.2-12.0); Monocyte# 0.21 X10^3/uL; Monocyte% 3.9 % (0-10); NRBC Flagged by Analyzer 0 % (0-5); Neutrophil # 3.86 X10^3/uL (2.7-7.7); Neutrophil % 71.4 % (47-70); Platelet Count 167 K/mm3 (150-450); RBC Distribution Width CV 12.3 % (11.6-14.6); RBC Distribution Width SD 39.8 fl (35.1-43.9); Red Blood Count 3.77 M/mm3 (4.2-5.4); White Blood Count 5.4 K/mm3 (4.4-11.0)
[2024-09-04 16:16] LABS: Color, Urine Yellow (Yellow); Glucose, Dipstick Normal (Normal); Ketone-Dipstick Negative (Negative); Leukocyte Esterase-Dipstick 25 /ul (Negative); Nitrite-Dipstick Negative (Negative); Occult Blood-Urine Negative /ul (Negative); Protein-Dipstick 100 mg/dl (Negative); Urine Bilirubin Dipstick Negative (Negative); Urine Clarity Clear (Clear); Urine Urobilinogen Normal (Normal); Urine pH 6.5 (5.0 - 8.0)
[2024-09-04 16:36] LABS: Lipase 42 U/L (13-75)
[2024-09-04 16:39] LABS: Squamous Epithelial Cells - UA 5-10 SEEN /hpf (5-10)
[2024-09-04 16:40] LABS: Red Blood Cells-Urine 0 SEEN /hpf (0-5); White Blood Cells 0-5 SEEN /hpf (0-5)
[2024-09-04 16:41] LABS: Bacteria RARE /hpf (None Seen)
[2024-09-04 16:46] LABS: Internal QC Validated? YES +Cl - CLEAR BKGD; Pregnancy, Serum, hCG Quali. NEGATIVE Negative
[2024-09-04 16:52] LABS: ALB/GLOB Ratio 1.4 RATIO (0.9-2.4); AST(SGOT) 17 U/L (<=31); Alanine Aminotransfer ALT/SGPT 12 U/L (<=34); Albumin, Serum 3.9 g/dL (3.5-5.0); Alkaline Phosphatase 85 U/L (35-104); Anion Gap 11 (5-15); BUN 24 mg/dL (4-19); BUN/Creat Ratio 10.8 RATIO (10-20); Calcium,Total 9.2 mg/dL (7.6-11.0); Carbon Dioxide 22.3 mmol/L (21.0-32.0); Chloride 102 mmol/L (98-108); Creatinine, Serum 2.24 mg/dL (0.70-1.20); EST Glomerular Filtration Rate 29 (>60); Estimated Creatinine Clearance 31.21 ml/min (50-250); Globulin 2.8 g/dL (2.2-4.2); Glucose 126 mg/dL (70-99); Potassium 4.1 mmol/L (3.3-5.1); Protein, Total 6.7 g/dL (5.9-8.4); Sodium Level 135 mmol/L (133-145); Total Bilirubin 0.23 mg/dL (0.00-1.30)
[2024-09-04 17:04] VITALS: BP 128/78; PULSE 64; RESP 18; TEMP 37.1; O2SAT 98
[2024-09-04 18:31] VITALS: BP 105/76; PULSE 70; RESP 16; TEMP 36.6; O2SAT 100
== END 2024-09-04 18:32 | disposition home or self-care (01) ==
PROVIDERS: Emergency Provider Emergency Medicine; PCP Internal Medicine; Visit Provider Emergency Medicine
DX: R11.2 Nausea with vomiting, unspecified (principal); F14.99 Cocaine use, unspecified with unspecified cocaine-induced disorder; F11.99 Opioid use, unspecified with unspecified opioid-induced disorder; F15.99 Other stimulant use, unspecified with unspecified stimulant-induced disorder; E86.0 Dehydration; F12.90 Cannabis use, unspecified, uncomplicated; R10.9 Unspecified abdominal pain; F17.210 Nicotine dependence, cigarettes, uncomplicated; Z86.16 Personal history of COVID-19
CPT/HCPCS: 74176; 80053; 81001; 83690; 84703; 85025; 96361; 96374; 99283; A4216; J2405

== ENCOUNTER 2024-10-10 23:32 | Emergency (ER) | payer SELFPAY ==
[2024-10-10 23:32] VITALS: BP 135/85; PULSE 100; RESP 18; TEMP 37; O2SAT 98; BMI 17.3
[2024-10-11 00:27] LABS: Mucous, Urine 0 SEEN /hpf (<or=2+)
[2024-10-11 00:29] LABS: Color, Urine Yellow (Yellow); Glucose, Dipstick 50 mg/dl (Normal); Ketone-Dipstick Negative (Negative); Leukocyte Esterase-Dipstick 25 /ul (Negative); Nitrite-Dipstick Negative (Negative); Occult Blood-Urine 10 /ul (Negative); Urine Bilirubin Dipstick Negative (Negative); Urine Clarity Clear (Clear); Urine Urobilinogen Normal (Normal)
[2024-10-11 00:41] LABS: Bacteria 1+ /hpf (None Seen); Internal QC Validated? YES +Cl - CLEAR BKGD; Pregnancy, Urine Negative Negative; Red Blood Cells-Urine 0-5 SEEN /hpf (0-5); Squamous Epithelial Cells - UA 10-25 SEEN /hpf (5-10); White Blood Cells 10-25 SEEN /hpf (0-5)
[2024-10-11 01:32] VITALS: PULSE 66; RESP 18; O2SAT 96
--- NOTE | 2024-10-11 01:33 | EDS_ITS ---
HPI History of Present Illness Chief Complaint: Nausea/Vomiting Informant: patient Narrative Narrative: Patient is a 33-year-old female presenting with back pain and concern for urinary tract infection. She states she has a history of CKD, congenital solitary kidney, drug abuse (on Suboxone) and frequent urinary tract infections. She states that she has had 1 month of intermittent nausea and vomiting. Last vomiting was 2 days ago). She has been having chills and hot flashes. Over the past 2 to 3 days she developed some low back pain that radiates up to the right side of her back. She has chronic hematuria denies any change in this. Denies any dysuria. Denies excess abdominal pain or fevers (but does report chills and feeling flushed). She is concerned that she could have urinary tract infection and came to the ER. She notes she is currently between insurance which is why she came here instead of following up with urology or PCP. She has a Nexplanon and is not concern for . She does note that with her symptoms of her nausea/vomiting she has taken test which have been negative. Tonight she had a hard time getting through her shift because of her pain and this triggered her to come in. She did not take anything for pain prior to arrival. No other complaints or concerns reported at this time. [facility] Medical History Substance abuse Alcohol abuse Bipolar disorder Hyperthyroidism Kidney disease Pancreatitis Tobacco abuse COVID-19 Flu vaccine need Tachycardia IBS (irritable bowel syndrome) Wears glasses Depression Anxiety History of renal disease Hepatitis Migraine headache Smoker History of imperforate anus Hydronephrosis Migraine Menometrorrhagia Deafness in left ear Pancreatitis Chronic headaches Drug abuse Asthma Anemia Seasonal allergies demise > 22 weeks, delivered, current hospitalization Home Medications ?Medication ?Instructions ?Recorded ?Last Taken ?Type sertraline 25 mg tablet 25 mg PO DAILY depression #9 0 tabs 08/26/21 10/20/21 Rx buprenorphine 4 mg-naloxone 1 mg 1 film sublingual BID ADDICTION 10/21/21 10/21/21 History sublingual film (Suboxone) valacyclovir 500 mg tablet 500 mg PO DAILY INFECTION 0 10/21/21 10/20/21 History losartan 25 mg tablet 25 mg PO DAILY #0 tabs 10/24 Unknown Rx aripiprazole 10 mg tablet 10 mg PO DAILY MOOD #30 tabs 10/27/21 Unknown Rx levothyroxine 150 mcg tablet 150 mcg PO DAILY THYROID #30 tabs 10/27/21 Unknown Rx amitriptyline 10 mg tablet 10 mg PO QHS 08/03/23 Unkno wn History rimegepant 75 mg disintegrating 75 mg PO DAILY PRN oscar tana 08/03/23 Unknown History tablet (Nurtec ODT) headache ondansetron 4 mg disintegrating 4 mg PO Q8H PRN PRN Na usea #20 tabs 09/09/23 Unknown Rx tablet metoclopramide HCl 10 mg tablet 10 mg PO Q6H PRN nause a and 12/27/23 Unknown Rx (Reglan) vomiting #14 tabs ondansetron 4 mg disintegrating 4 mg PO Q8H PRN PRN Na usea #10 tabs 12/27/23 Unknown Rx tablet gabapentin 100 mg capsule 100 mg PO TID 10/10/24 Unkno wn History cephalexin 500 mg capsule 500 mg PO Q12 #14 CAPSULES 0 10/11/24 Unknown Rx ondansetron 4 mg disintegrating 4 mg PO Q8H PRN PRN Na usea #15 tabs 10/11/24 Unknown Rx tablet Allergy/AdvReac Type Severity Reaction Status Date / Time ceftriaxone (From Rocephin) Allergy Unknown Verified 10/10/24 23:33 ceftriaxone sodium (From Allergy Hives Verified 10/10/24 23:33 Rocephin) droperidol Allergy Unknown Verified 10/10/24 23:33 Family History Mother Depression Hypertension Mental disorder Thyroid disorder Aunt Diabetes Grandfather Alcoholism Cancer Surgical History History of removal of Port-a-Cath Hx of surgical procedure Hx of cystoscopy Social History household members: none Smoking Status: Current every day smoker tobacco type: cigarettes alcohol intake: never substance use type: crack/cocaine, heroin and other details: Currently snorts 1/2 gm daily of each heroin and cocaine. Also uses meth. what type of physical activity do you participate in: aerobics and weight training frequency: 3-4 times per week ROS ROS ED Constitutional Constitutional ED: Reports chills, fever(s) and subjective Gastrointestinal Gastrointestinal: Reports nausea and vomiting; Denies abdominal pain, constipation or diarrhea Genitourinary Genitourinary ED: Reports hematuria; Denies dysuria Musculoskeletal Musculoskeletal: Reports back pain; Denies myalgias Neurologic Neurologic: Denies paresthesias or weakness Hematologic/Lymphatic Hematologic/Lymphatic: Denies easy bleeding or easy bruising EXAM Physical Exam Const Vital Signs: 10/10/24 23:32 Temperature 98.6 F Temperature Source Oral Pulse Rate 100 Respiratory Rate 18 Blood Pressure 135/85 H Blood Pressure Mean 101 Pulse Ox 98 Oxygen Delivery Method Room Air Positive well nourished and well developed General Appearance ED: well developed and NAD HEENT Reports moist mucous membranes Neck supple Chest Wall inspection of chest normal and palpation of chest normal Resp normal respiratory effort and clear to auscultation bilaterally Cardio regular rate and regular rhythm GI normal to inspection, nondistended, normoactive bowel sounds and non-tender Auscultation: normoactive bowel sounds Back/Spine no CVA tenderness Back/Spine Narrative: Patient points to her lower lumbar back diffusely as the pain but is not reproducible with movement or direct palpation. General Back: Negative for CVA tenderness Thoracic Spine / Upper Back: Negative for thoracic spinal tenderness Lumbar Spine / Lower Back: Negative for lumbar spinal tenderness Neuro oriented x3 Sensorium / Orientation: alert Motor Exam: Negative for general weakness Psych mental status grossly normal Skin no rashes or lesions noted and no wounds MDM MDM MDM Narrative Medical decision making narrative: Patient is evaluated for low back pain and concern for urinary tract infection. Does have a history of congenital solitary kidney and frequent urinary tract infections. Reports 1 month of intermittent nausea and vomiting as well as subjective fever and chills. At this time patient is overall well-appearing. He has not any CVA tenderness. He does not have any tenderness in the suprapubic region. Her vital signs are normal. Urinalysis shows contamination but does show 10-25 white blood cells with 1+ bacteria. Given her history she would like to be treated. Did send off her culture. She states Keflex usually works well for her and she tolerates it well. She has a documented allergy to Rocephin causing hives but her fill history shows that she had Keflex in July of this year. Is given first dose of Keflex in the emergency room. Patient would like to forego blood work at this time given that she is currently without insurance. Given that she has normal vital signs and overall is well-appearing with a benign physical exam I think this is reasonable. Patient is given close return precautions. Is given referral for urology. Discharged home in stable condition. Differential includes urinary tract infection, , pyelonephritis, muscle skeletal back pain Lab Data Attestation: I reviewed the patient's lab results. Labs: Laboratory Results - last 24 hr 10/11/24 00:21 Urine Color Yellow Urine Clarity Clear Urine pH 6.0 Ur Specific [place] 1.010 Urine Protein TNP Urine Glucose (UA) 50 H Urine Ketones Negative Urine Occult Blood 10 H Urine Nitrite Negative Urine Bilirubin Negative Urine Urobilinogen Normal Ur Leukocyte Esterase 25 H Urine RBC 0-5 SEEN Urine WBC 10-25 SEEN Ur Squamous Epith Cells 10-25 SEEN Urine Bacteria 1+ Urine Mucus 0 SEEN U Random Total Protein 164.0 H Urine Test Negative Discharge Plan Triage Chief Complaint: Nausea/Vomiting ED Provider: Ashlee Barreto Dx/Rx/DC Orders Clinical Impression: UTI (urinary tract infection), Low back pain Instructions: UTIs, ED Back Care Tips Prescriptions: New cephalexin 500 mg capsule 500 mg PO Q12 Qty: 14 0RF Continued ondansetron 4 mg tablet,disintegrating 4 mg PO Q8H PRN PRN (Reason: Nausea) Qty: 15 0RF No Action valacyclovir 500 mg tablet 500 mg PO DAILY buprenorphine-naloxone [Suboxone] 4-1 mg Film 1 film SUBLINGUAL BID Patient Comments: CALLED TO VERIFY SUBOXONE WITH A NEW DAY IN [employer]. PT JUST STARTED TREATMENT WITH [facility] AND NEW RX WAS FILLED AND CANCELED YESTERDAY FOR THE SUBOXONE 4-1 FILM BID. A NEW [facility] CLINIC STATED PT DID NOT PICK-UP AND RX WAS CANCELED. losartan 25 mg Tablet 25 mg PO DAILY Qty: 0 0RF amitriptyline 10 mg tablet 10 mg PO QHS Patient Comments: Take 1 tablet (10 mg) by mouth Nightly. Nurtec ODT 75 mg tablet,disintegrating 75 mg PO DAILY PRN (Reason: migraine headache) gabapentin 100 mg capsule 100 mg PO TID ondansetron 4 mg tablet,disintegrating 4 mg PO Q8H PRN PRN (Reason: Nausea) Qty: 20 0RF ondansetron 4 mg tablet,disintegrating 4 mg PO Q8H PRN PRN (Reason: Nausea) Qty: 10 0RF metoclopramide HCl [Reglan] 10 mg tablet 10 mg PO Q6H PRN (Reason: nausea and vomiting) Qty: 14 0RF sertraline 25 mg tablet 25 mg PO DAILY Qty: 90 3RF aripiprazole 10 mg tablet 10 mg PO DAILY Qty: 30 2RF levothyroxine 150 mcg tablet 150 mcg PO DAILY Qty: 30 2RF Primary Care Provider: Pam Mcghee NP Referrals: Pam Mcghee [employer], [employer] [Primary Care Provider] - Activity Restrictions/Additional Instructions: If you develop fever or worsening symptoms please return to the emergency room for further workup. Print Language: Slovenian Disposition Disposition: Home, Self Care
[2024-10-11 01:46] VITALS: BP 138/101; PULSE 63; RESP 18; TEMP 36.8; O2SAT 97
[2024-10-11] MEDS: Cephalexin 250 MG Capsule 500 MG PO (01:46)
[2024-10-11] MEDS: Ondansetron ODT 4 MG Tablet PO (01:46)
== END 2024-10-11 01:49 | disposition home or self-care (01) ==
PROVIDERS: Emergency Provider Emergency Medicine; PCP Nurse Practitioner Family; Visit Provider Emergency Medicine
DX: N39.0 Urinary tract infection, site not specified (principal); F14.94 Cocaine use, unspecified with cocaine-induced mood disorder; F15.94 Other stimulant use, unspecified with stimulant-induced mood disorder; F31.9 Bipolar disorder, unspecified; M54.50 Low back pain, unspecified; R31.9 Hematuria, unspecified; F17.210 Nicotine dependence, cigarettes, uncomplicated; Z87.440 Personal history of urinary (tract) infections; Q60.0 Renal agenesis, unilateral; Z86.16 Personal history of COVID-19; E05.90 Thyrotoxicosis, unspecified without thyrotoxic crisis or storm; F11.90 Opioid use, unspecified, uncomplicated
CPT/HCPCS: 81001; 81025; 84156; 87086; 87088; 99283

== ENCOUNTER 2024-11-13 14:33 | Emergency (ER) | payer SELFPAY ==
[2024-11-13 14:34] VITALS: BP 128/90; PULSE 68; RESP 14; TEMP 36.1; O2SAT 97; BMI 16.7
--- NOTE | 2024-11-13 15:03 | EX.ED.DYSGE1 ---
HPI History of Present Illness Chief Complaint: Nausea/Vomiting Informant: patient Narrative Narrative: Patient sent over from urgent care. She reports vomiting started yesterday mild today had 9 episodes no hematemesis it was bile. No abdominal pain no diarrhea normal bowel movement yesterday. She states that her urine test noted high proteins and was sent here. 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 She was stage IV she got treatment. She said affected her kidney she has a solitary kidney. She states kidneys were stage III or stage IV. She reports insurance issues in the interim due to her new job she is reestablished now with insurance followed by her PCP. Normal urine output. Denies fever chills or sweats denies dysuria. Does to admit to daily marijuana use. Prior similar symptoms: Yes PFSH PFSH Medical History Substance abuse Alcohol abuse Bipolar disorder Hyperthyroidism Kidney disease Pancreatitis Tobacco abuse COVID-19 Flu vaccine need Tachycardia IBS (irritable bowel syndrome) Wears glasses Depression Anxiety History of renal disease Hepatitis Migraine headache Smoker History of imperforate anus Hydronephrosis Migraine Menometrorrhagia Deafness in left ear Pancreatitis Chronic headaches Drug abuse Asthma Anemia Seasonal allergies demise > 22 weeks, delivered, current hospitalization Home Medications ?Medication ?Instructions ?Recorded ?Last Taken ?Type sertraline 25 mg tablet 25 mg PO DAILY depression #90 tabs 08/26/21 10/20/21 Rx buprenorphine 4 mg-naloxone 1 mg 1 film sublingual BID ADDICTION 10/21/21 10/21/21 History sublingual film (Suboxone) valacyclovir 500 mg tablet 500 mg PO DAILY INFECTION 10/21/21 10/20/21 History losartan 25 mg tablet 25 mg PO DAILY #0 tabs 10/24/21 Unknown Rx aripiprazole 10 mg tablet 10 mg PO DAILY MOOD #30 tabs 10/27/21 Unknown Rx levothyroxine 150 mcg tablet 150 mcg PO DAILY THYROID #30 tabs 10/27/21 Unknown Rx amitriptyline 10 mg tablet 10 mg PO QHS 08/03/23 Unknown History rimegepant 75 mg disintegrating 75 mg PO DAILY PRN migraine 08/03/23 Unknown History tablet (Nurtec ODT) headache ondansetron 4 mg disintegrating 4 mg PO Q8H PRN PRN Nausea #20 tabs 09/09/23 Unknown Rx tablet metoclopramide HCl 10 mg tablet 10 mg PO Q6H PRN nausea and 12/27/23 Unknown Rx (Reglan) vomiting #14 tabs ondansetron 4 mg disintegrating 4 mg PO Q8H PRN PRN Nausea #10 tabs 12/27/23 Unknown Rx tablet gabapentin 100 mg capsule 100 mg PO TID 10/10/24 Unknown History cephalexin 500 mg capsule 500 mg PO Q12 #14 CAPSULES 10/11/24 Unknown Rx ondansetron 4 mg disintegrating 4 mg PO Q8H PRN PRN Nausea #15 tabs 10/11/24 Unknown Rx tablet Allergy/AdvReac Type Severity Reaction Status Date / Time ceftriaxone (From Rocephin) Allergy Unknown Verified 11/13/24 14:34 ceftriaxone sodium (From Allergy Hives Verified 11/13/24 14:34 Rocephin) droperidol Allergy Unknown Verified 11/13/24 14:34 Family History Mother Depression Hypertension Mental disorder Thyroid disorder Aunt Diabetes Grandfather Alcoholism Cancer Surgical History History of removal of Port-a-Cath Hx of surgical procedure Hx of cystoscopy Social History household members: none Smoking Status: Current every day smoker tobacco type: cigarettes alcohol intake: never substance use type: crack/cocaine, heroin and other details: Currently snorts 1/2 gm daily of each heroin and cocaine. Also uses meth. what type of physical activity do you participate in: aerobics and weight training frequency: 3-4 times per week ROS ROS ED Constitutional Constitutional ED: Denies fever(s) Cardiovascular Cardiovascular: Denies chest pain Respiratory/Chest Respiratory/Chest: Denies cough Gastrointestinal Gastrointestinal: Reports nausea and vomiting; Denies diarrhea Musculoskeletal Musculoskeletal: Denies none Integumentary Denies rash or wounds Neurologic Neurologic: Denies weakness EXAM Physical Exam Const Vital Signs: 11/13/24 14:34 11/13/24 16:39 Temperature 96.9 F L 98 F Temperature Source Temporal Pulse Rate 68 79 Respiratory Rate 14 17 Blood Pressure 128/90 H 120/77 Blood Pressure Mean 102 91 Pulse Ox 97 99 Oxygen Delivery Method Room Air Positive well nourished and well developed General Appearance ED: well developed and NAD HEENT HEENT Narrative: Mild dry mucosal membranes. normocephalic and atraumatic Eyes General Eye ED: Yes normal appearance of both eyes Neck full ROM Chest Wall Chest: Negative for tenderness Resp normal respiratory effort and normal air movement Effort and Inspection: symmetric chest movement; Negative for respiratory distress Cardio regular rate, regular rhythm and no murmurs Peripheral Pulses: pulses 2+ throughout GI normal to inspection, nondistended, normoactive bowel sounds and non-tender GI Narrative: Negative Blackburn's or McBurney's tenderness. Palpation: Negative for guarding or rebound tenderness present Extremity normal to inspection General Extremety ED: Negative for edema or tenderness General Extremity: Negative for edema Neuro oriented x3 and no sensory deficits noted Sensorium / Orientation: awake and alert Skin no rashes or lesions noted and no wounds MDM MDM MDM Narrative Medical decision making narrative: Interventions / MDM: Differential diagnosis: Nausea vomiting, CKD history, marijuana dependence Diagnosis considered but do not suspect: N/A My EKG interpretation: N/A Imaging independently reviewed and interpreted by myself: N/A External documents reviewed: N/A Test considered but not ordered:N/A ED course: Mild dry mucosal membranes history of CKD. No recent blood test. Will establish IV for blood work for evaluation. Will give fluids, IV Zofran ordered. Will reevaluate. 1605: Creatinine 2.16 GFR 30. Slightly better than her previous labs 2 months ago. White count normal 6.9 with hemoglobin of 11.3. Clinically feeling better on reevaluation. She taken down ice chips. Discussed with patient trying avoid marijuana as can lead to worsening symptoms. She will be written for Zofran. She states her PCP is referring her to nephrology. She will keep this appointment. All questions were answered. Re-evaluation: stable Disposition discussed with patient/family/significant other: Patient Case discussed with consulting clinician: N/A This note was generated with [employer] dictation software. It may contain incorrect words, spelling, and punctuation that were not noted in checking the note before signing. Lab Data Attestation: I reviewed the patient's lab results. Labs: Laboratory Results - last 24 hr 11/13/24 15:11 WBC 6.9 RBC 4.05 L Hgb 11.3 L Hct 35.2 L MCV 86.9 MCH 27.9 MCHC 32.1 RDW Std Deviation 40.5 RDW Coeff of Maki 12.7 Plt Count 141 L MPV 11.6 Immature Gran % (Auto) 0.100 Neut % (Auto) 83.9 H Lymph % (Auto) 11.2 L [place] % (Auto) 3.8 Eos % (Auto) 0.9 Baso % (Auto) 0.1 Absolute Neuts (auto) 5.8 Absolute Lymphs (auto) 0.77 L Nucleated RBC % 0 Sodium 142 Potassium 4.1 Chloride 111 H Carbon Dioxide 19.9 L Anion Gap 10 BUN 25 H Creatinine 2.16 H Estim Creat Clear Calc 30.12 L Est GFR (MDRD) Non-Af 30 L BUN/Creatinine Ratio 11.4 Glucose 115 H Calcium 9.3 Discharge Plan Triage Chief Complaint: Nausea/Vomiting ED Provider: Anderson Mckeon Dx/Rx/DC Orders Clinical Impression: CKD (chronic kidney disease) stage 3, GFR 30-59 ml/min, Nausea & vomiting, Marijuana dependence Instructions: Understanding Synthetic Marijuana, ED Chronic Kidney Disease (CKD), ED Vomiting (Adult) Prescriptions: No Action valacyclovir 500 mg tablet 500 mg PO DAILY buprenorphine-naloxone [Suboxone] 4-1 mg Film 1 film SUBLINGUAL BID Patient Comments: CALLED TO VERIFY SUBOXONE WITH [facility]. PT JUST STARTED TREATMENT WITH [facility] AND NEW RX WAS FILLED AND CANCELED YESTERDAY FOR THE SUBOXONE 4-1 FILM BID. [facility] STATED PT DID NOT PICK-UP AND RX WAS CANCELED. losartan 25 mg Tablet 25 mg PO DAILY Qty: 0 0RF amitriptyline 10 mg tablet 10 mg PO QHS Patient Comments: Take 1 tablet (10 mg) by mouth Nightly. Nurtec ODT 75 mg tablet,disintegrating 75 mg PO DAILY PRN (Reason: migraine headache) gabapentin 100 mg capsule 100 mg PO TID cephalexin 500 mg capsule 500 mg PO Q12 Qty: 14 0RF ondansetron 4 mg tablet,disintegrating 4 mg PO Q8H PRN PRN (Reason: Nausea) Qty: 15 0RF ondansetron 4 mg tablet,disintegrating 4 mg PO Q8H PRN PRN (Reason: Nausea) Qty: 20 0RF ondansetron 4 mg tablet,disintegrating 4 mg PO Q8H PRN PRN (Reason: Nausea) Qty: 10 0RF metoclopramide HCl [Reglan] 10 mg tablet 10 mg PO Q6H PRN (Reason: nausea and vomiting) Qty: 14 0RF sertraline 25 mg tablet 25 mg PO DAILY Qty: 90 3RF aripiprazole 10 mg tablet 10 mg PO DAILY Qty: 30 2RF levothyroxine 150 mcg tablet 150 mcg PO DAILY Qty: 30 2RF Stand Alone Forms: ED Work / School Excuse Primary Care Provider: Pam Mcghee NP Referrals: Pam Mcghee LINUX ADMIN ENGINEER, [employer] ADMIN ENGINEER-C [Primary Care Provider] - Activity Restrictions/Additional Instructions: Your creatinine 2.14 GFR of 30. Slightly improved from your previous labs. Continue oral fluid hydration use Zofran as needed. Try to avoid marijuana use. Keep your follow-up referral with nephrology by your PCP. Print Language: [place] Disposition Disposition: Home, Self Care Discharge Date/Time: 11/13/24 17:20
[2024-11-13] MEDS: 0.9% Normal Saline (1000mL) 1,000 ML 1000 ML IV (15:26)
[2024-11-13] MEDS: Ondansetron 4 MG/2 ML Vial IV (15:26)
[2024-11-13 15:41] LABS: Anion Gap 10 (5-15); BUN 25 mg/dL (4-19); BUN/Creat Ratio 11.4 RATIO (10-20); Calcium,Total 9.3 mg/dL (7.6-11.0); Carbon Dioxide 19.9 mmol/L (21.0-32.0); Chloride 111 mmol/L (98-108); Creatinine, Serum 2.16 mg/dL (0.70-1.20); EST Glomerular Filtration Rate 30 (>60); Estimated Creatinine Clearance 30.12 ml/min (50-250); Glucose 115 mg/dL (70-99); Potassium 4.1 mmol/L (3.3-5.1); Sodium Level 142 mmol/L (133-145)
[2024-11-13 15:44] LABS: Absolute Lymphocyte Count 0.77 X10^3/uL (0.83-4.51); Absolute Neutrophil Count 5.8 X10^3/uL (2.0-7.7); Basophil# 0.01 X10^3/uL; Basophil% 0.1 % (0-1); Eosinophil# 0.06 X10^3/uL; Eosinophils% 0.9 % (0-5); Hematocrit 35.2 % (37-47); Hemoglobin 11.3 g/dL (12.0-15.0); Lymphocyte # 0.77 X10^3/ul (0.83-4.51); Lymphocyte % 11.2 % (19-41); Mean Corp Hgb Conc 32.1 g/dL (32-36); Mean Corpuscular Hgb 27.9 pg (27.0-32.0); Mean Corpuscular Volume 86.9 fL (81-99); Mean Platelet Vol. 11.6 fl (6.2-12.0); Monocyte# 0.26 X10^3/uL; Monocyte% 3.8 % (0-10); NRBC Flagged by Analyzer 0 % (0-5); Neutrophil # 5.78 X10^3/uL (2.7-7.7); Neutrophil % 83.9 % (47-70); Platelet Count 141 K/mm3 (150-450); RBC Distribution Width CV 12.7 % (11.6-14.6); RBC Distribution Width SD 40.5 fl (35.1-43.9); Red Blood Count 4.05 M/mm3 (4.2-5.4); White Blood Count 6.9 K/mm3 (4.4-11.0)
[2024-11-13 16:39] VITALS: BP 120/77; PULSE 79; RESP 17; TEMP 36.6; O2SAT 99
== END 2024-11-13 17:20 | disposition home or self-care (01) ==
PROVIDERS: Emergency Provider Emergency Medicine; PCP Nurse Practitioner Family; Visit Provider Emergency Medicine
DX: R11.2 Nausea with vomiting, unspecified (principal); F11.20 Opioid dependence, uncomplicated; F14.20 Cocaine dependence, uncomplicated; F15.20 Other stimulant dependence, uncomplicated; F12.20 Cannabis dependence, uncomplicated; F31.9 Bipolar disorder, unspecified; N18.30 Chronic kidney disease, stage 3 unspecified; F17.210 Nicotine dependence, cigarettes, uncomplicated; Q60.0 Renal agenesis, unilateral; Z86.16 Personal history of COVID-19; F41.9 Anxiety disorder, unspecified; E05.90 Thyrotoxicosis, unspecified without thyrotoxic crisis or storm
CPT/HCPCS: 80048; 85025; 96361; 96374; 99283; J2405

== ENCOUNTER → 2025-01-03 | Outpatient (CLI) | payer MEDICAID, SELFPAY ==
--- NOTE | 2025-01-03 08:43 | US_ITS ---
PROCEDURE: ABDOMEN LIMITED 01/03/2025 REASON FOR EXAM: WEIGHT LOSS, N/V TECHNIQUE: ABDOMEN LIMITED COMPARISON: CT abdomen and pelvis dated 09/04/2024 FINDINGS: Liver: Grossly normal size and echotexture. Length of 15.1 cm. Gallbladder: There is biliary sludge. No wall thickening or pericholecystic fluid. Sonographic Blackburn's sign is negative. Common bile duct: Normal measuring 3 mm. . Pancreas: Visualized portions are unremarkable. The distal body and tail are obscured by bowel gas. 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 The left kidney was not imaged on this exam. Spleen: Normal in size and echotexture measuring 10.4 x 5.0 x 5.7 cm. US/Abdomen Limited IMPRESSION: Biliary sludge. No evidence of acute cholecystitis. Reading Location: [id number]
== END | disposition home or self-care (01) ==
LOC: US 08:42
PROVIDERS: PCP Nurse Practitioner Family; Referring Provider Nurse Practitioner Acute Care; Visit Provider Nurse Practitioner Acute Care
DX: R63.4 Abnormal weight loss (principal); R68.81 Early satiety; R11.2 Nausea with vomiting, unspecified
CPT/HCPCS: 76705

== ENCOUNTER → 2025-01-16 | Outpatient (CLI) | payer MEDICAID, SELFPAY ==
--- NOTE | 2025-01-16 12:39 | NM_ITS ---
PROCEDURE: HEPATOBILIARY IMG W/PHARM INT 01/16/2025 REASON FOR EXAM: N/V, WEIGHT LOSS TECHNIQUE: Intravenous Choletec with planar imaging of the abdomen. RADIOPHARMACEUTICAL: 5.2 mCi mebrofenin COMPARISON: Abdominal CT 09/04/2024 FINDINGS: Homogeneous and prompt liver uptake. CBD and gallbladder activity by 15 minutes. Bowel activity by 30 minutes. 1 mcg CCK administered. Gallbladder ejection fraction of 87%. NM/Hepatobilliary Img w/Pharm Int IMPRESSION: Normal HIDA scan with ejection fraction Reading Location: [place] [id number]
== END | disposition home or self-care (01) ==
LOC: NM 12:31
PROVIDERS: PCP Nurse Practitioner Family; Referring Provider Nurse Practitioner Acute Care; Visit Provider Nurse Practitioner Acute Care
DX: R63.4 Abnormal weight loss (principal); R68.81 Early satiety; R11.2 Nausea with vomiting, unspecified
CPT/HCPCS: 78227; A9537

== ENCOUNTER 2025-03-18 11:56 | Day surgery (SDC) | payer MEDICAID, SELFPAY ==
--- NOTE | 2025-03-12 15:51 | PAT.ANE_ITS ---
Pre-Assessment Diagnosis/Proposed Procedure Planned Operative Procedure(s): EGD Flexible Sigmoidoscopy Anesthesia History Anesthesia History - marking clerk: Anesthesia History - marking clerk Hx Hospitalization No 03/12/25 13:51 Any Problems With Anesthesia No 03/12/25 13:51 Cholinesterase deficiency No 03/12/25 13:51 You/Your Family Experience No 03/12/25 13:51 fever (hyperthermia) with Relationship Recent Exposure to Contagious No 03/22/21 10:06 Disease Does patient have nerve No 03/12/25 13:51 stimulator Patient instructed to have device shut off --Does patient have Pacemaker or ICD? When Was Last Pacemaker Check QUESTION #4 FULL TEXT: You/Your Family Experience fever (hyperthermia) with Anesthesia Last Oral Intake Last Oral intake: Last Oral Intake NPO since Meds taken in AM with sips of water? Meds patient instructed to take am of surgery PONV PONV - marking clerk: PONV - marking clerk Female Yes 03/12/25 13:51 HX of Motion Sickness No 03/12/25 13:51 HX of N/V After Surgery No 03/12/25 13:51 Non-Smoker No 03/12/25 13:51 Duration of Surgery greater No 03/12/25 13:51 than 60 minutes Number of Risk Factors 1 03/12/25 13:51 PONV Score Low Risk 03/12/25 13:51 Height & Weight Height & Weight: Anesthesia: Height & Weight Height 5 ft 9 in 12/31/24 10:26 Respiratory Assessment Respiratory Assessment - marking clerk: Respiratory Tract Infection Hx - marking clerk Hx Respiratory Tract Infection No 03/12/25 13:51 STOP Sleep Apnea STOP Sleep Apnea - marking clerk: STOP Sleep Apnea - marking clerk Hx Hypertension No 03/12/25 13:51 Hx Sleep Apnea No 03/12/25 13:51 CPAP No 03/12/25 13:51 BIPAP No 03/12/25 13:51 Do you snore loudly (louder No 03/12/25 13:51 than talking or can be heard Do you often feel tired/ No 03/12/25 13:51 fatigued/ sleepy during daytime? Has anyone observed you stop No 03/12/25 13:51 breathing during sleep? STOP Results Negative 03/12/25 13:51 QUESTION #5 FULL TEXT : Do you snore loudly (louder than talking or can be heard through closed doors)? 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 Specify any problems Hx of Preganancy in last 3 No 03/12/25 13:51 Months Nurse Filling Out Transfusion VCHRISTIN 03/12/25 13:51 & Questions: Date: 03/12/25 03/12/25 13:51 Time: 13:53 03/12/25 13:51 Patient unable to answer at this time (ie. confused, unrespo /Reproduction History /Reproductive History - marking clerk: /Reproductive Hx- marking clerk Hx Now No 03/12/25 13:51 Gestational Age (in weeks): EDC: Hx Hx Para Hx Section SAB No 03/12/25 13:51 PFSH Medical History (Updated 03/12/25 @ 13:51 by Namita Bedolla) Marijuana use Neuropathy Thyroid disease Gastric reflux Vapes nicotine containing substance Shortness of breath on exertion Lymphoma Hx of malignant carcinoid tumor Substance abuse Alcohol abuse Bipolar disorder Hyperthyroidism Kidney disease Pancreatitis Tobacco abuse COVID-19 Flu vaccine need Tachycardia IBS (irritable bowel syndrome) Wears glasses Depression Anxiety History of renal disease Hepatitis Migraine headache Smoker History of imperforate anus Hydronephrosis Migraine Menometrorrhagia Deafness in left ear Pancreatitis Chronic headaches Drug abuse Asthma Anemia Seasonal allergies demise > 22 weeks, delivered, current hospitalization Home Medications ?Medication ?Instructions ?Recorded ?Last Taken ?Type valacyclovir 500 mg tablet 500 mg PO DAILY INFECTION 0 10/21/21 10/20/21 History rimegepant 75 mg disintegrating 75 mg PO DAILY PRN oscar tana 08/03/23 Unknown History tablet (Nurtec ODT) headache ondansetron 4 mg disintegrating 4 mg PO Q8H PRN PRN Na usea #10 tabs 12/27/23 Unknown Rx tablet albuterol sulfate 90 mcg/actuation 2 puff inhalation Q 4H PRN PRN 03/12/25 Unknown History aerosol inhaler dyspnea buprenorphine 8 mg-naloxone 2 mg 1 ea sublingual TID 0 03/12/25 Unknown History sublingual film (Suboxone) levothyroxine 75 mcg capsule 75 mcg PO DAILY 03/12/25 Unknown History Allergy/AdvReac Type Severity Reaction Status Date / Time ceftriaxone (From Rocephin) Allergy Unknown Verified 03/12/25 13:34 ceftriaxone sodium (From Allergy Hives Verified 03/12/25 13:34 Rocephin) droperidol Allergy Unknown Verified 03/12/25 13:34 Family History Mother Depression Hypertension Mental disorder Thyroid disorder Aunt Diabetes Grandfather Alcoholism Cancer Surgical History (Updated 03/12/25 @ 13:51 by Namita Bedolla) History of esophagogastroduodenoscopy (EGD) History of laparoscopic cholecystectomy History of removal of Port-a-Cath Hx of surgical procedure Hx of cystoscopy Social History household members: none Smoking Status: Current every day smoker tobacco type: e-cigarettes alcohol intake: never substance use type: crack/cocaine, heroin and other details: Currently snorts 1/2 gm daily of each heroin and cocaine. Also uses meth. what type of physical activity do you participate in: aerobics and weight training frequency: 3-4 times per week Audit: Pertinent Findings Pertinent Findings EKG Perinent findings: EKG 03 August 2023. Normal sinus rhythm. Possible left atrial enlargement Recommendation Anesthesia Recommendation Anesthesia recommendation: OPTIMIZED for anesthesia
[2025-03-18] VITALS (9 sets, daily range): BP systolic 103–129; BP diastolic 72–100; PULSE 44–66; RESP 16–18; TEMP 36.4–37.1; O2SAT 97–100; BMI 15.3
[2025-03-18 12:24] LABS: Internal QC Validated? YES +Cl - CLEAR BKGD; Pregnancy, Urine Negative Negative; Record Kit Lot#,Urine Preg 0000964736
[2025-03-18] MEDS: Lactated Ringers 1,000 ML 15 ML IV (12:48)
--- NOTE | 2025-03-18 13:10 | PRE.ANES_ITS ---
ASA Classification* ASA Classification ASA Classification: 3 Assessment & Plan Anesthesia* Anesthesia Assessment Anesthesia Assessment: Discussed sedation and/or anesthesia options, risks, benefits, and alternatives with patient/parents/legal guardian/POA. Questions invited. The patient/parents/legal guardian/POA seems to understand and agrees to proceed with anesthesia plan. Reviewed the physical assessment, medical history, allergy history and patient home medications list prior to surgery/procedure/anesthetic and documented any changes. Performed airway and anesthesia risk assessments. Anesthesia Type Anesthesia Type: MAC History Source History Obtained from:: Patient and Chart Anesthesia Focused Assessment* Temperature: 98.8 F Pulse Rate: 66 Blood Pressure: 129/100 Respiratory Rate: 18 Pulse Ox: 100 Oxygen Delivery Method: Room Air Airway Assessment Mouth opens: >3 cm Mallampati Score: III Teeth Condition: Missing (Patient is missing 3 teeth. Rest of the teeth are tight.) Neck Range of motion (ROM): Limited ROM (Somewhat Decreased) Labs Anesthesia Preop lab: CBC WBC, (4.4-11.0) 6.9 K/mm3 11/13/24, 15:11 RBC, (4.2-5.4) 4.05 M/mm3 L 11/13/24, 15:11 Hgb, (12.0-15.0) 11.3 g/dL L 11/13/24, 15:11 Hct, (37-47) 35.2 % L 11/13/24, 15:11 Plt Count, (150-450) 141 K/mm3 L 11/13/24, 15:11 CHEMISTRY Potassium, (3.3-5.1) 4.1 mmol/L 11/13/24, 15:11 Sodium, (133-145) 142 mmol/L 11/13/24, 15:11 Phosphorus, (2.5-4.9) 2.2 mg/dL L 04/12/21, 14:47 BUN, (4-19) 25 mg/dL H 11/13/24, 15:11 Creatinine, (0.70-1.20) 2.16 mg/dL H 11/13/24, 15:11 Glucose, (70-99) 115 mg/dL H 11/13/24, 15:11 TSH, (0.358-3.74) 3.85 uIU/mL H 11/02/23, 17:18 COAG PT, (11.7-14.9) 14.3 SECONDS 12/27/23, 12:54 HCG, Quant, (<9 non-preg) 44024 mIU/mL H 05/19/18, 18:5 0 Urine Test Negative Negative Today, 12:10 Tst Clinic Negative 09/25/19, 17:36 Pre-Assessment Diagnosis/Proposed Procedure Planned Operative Procedure(s): EGD Flexible Sigmoidoscopy Anesthesia History Anesthesia History - fly setter: Anesthesia History - fly setter Hx Hospitalization No 03/12/25 13:51 Any Problems With Anesthesia No 03/12/25 13:51 Cholinesterase deficiency No 03/12/25 13:51 You/Your Family Experience No 03/12/25 13:51 fever (hyperthermia) with Relationship Recent Exposure to Contagious No 03/18/25 12:37 Disease Does patient have nerve No 03/12/25 13:51 stimulator Patient instructed to have device shut off --Does patient have Pacemaker No 03/18/25 12:37 or ICD? When Was Last Pacemaker Check QUESTION #4 FULL TEXT: You/Your Family Experience fever (hyperthermia) with Anesthesia Last Oral Intake Last Oral intake: Last Oral Intake NPO since 00:00 03/18/25 12:37 Meds taken in AM with sips of water? Meds patient instructed to take am of surgery Any additional information?: Yes Meds taken in AM with sips of water?: Yes Meds patient instructed to take am of surgery: Suboxone, levothyroxine PONV PONV - fly setter: PONV - fly setter Female Yes 03/12/25 13:51 HX of Motion Sickness No 03/12/25 13:51 HX of N/V After Surgery No 03/12/25 13:51 Non-Smoker No 03/12/25 13:51 Duration of Surgery greater No 03/12/25 13:51 than 60 minutes Number of Risk Factors 1 03/12/25 13:51 PONV Score Low Risk 03/12/25 13:51 Height & Weight Height & Weight: Anesthesia: Height & Weight Height 5 ft 9 in 03/18/25 12:37 Weight: 47 kg 03/18/25 12:37 Body Mass Index (BMI) 15.3 03/18/25 12:37 Respiratory Assessment Respiratory Assessment - fly setter: Respiratory Tract Infection Hx - fly setter Hx Respiratory Tract Infection No 03/12/25 13:51 STOP Sleep Apnea STOP Sleep Apnea - fly setter: STOP Sleep Apnea - fly setter Hx Hypertension No 03/12/25 13:51 Hx Sleep Apnea No 03/12/25 13:51 CPAP No 03/12/25 13:51 BIPAP No 03/12/25 13:51 Do you snore loudly (louder No 03/12/25 13:51 than talking or can be heard Do you often feel tired/ No 03/12/25 13:51 fatigued/ sleepy during daytime? Has anyone observed you stop No 03/12/25 13:51 breathing during sleep? STOP Results Negative 03/12/25 13:51 QUESTION #5 FULL TEXT : Do you snore loudly (louder than talking or can be heard through closed doors)? Tobacco Use History Tobacco Use History - fly setter: Tobacco Use History - fly setter Tobacco Use Cigarettes 11/10/20 13:38 Smoking Status Current every day smoker 03/12/25 13:51 Hx Tobacco Use Yes 03/12/25 13:51 Years Smoking Packs Smoked per Day Smoking Cessation Date was within the last 15 years Hx Smoking Cessation Date Hx Smoking Cessation Counseling Any additional information?: Yes Tobacco Use: Vapor (Patient did not vape today.) Hematologic Medial History Hematologic Hx - fly setter: Hematologic Medical Hx - therapist occupational Hx of Blood Transfusion Yes 03/12/25 13:51 Hx of Transfusion in last 3 No 03/12/25 13:51 Months Date of Last Transfusion (if within last 3 months) Ever experience any problems No 03/12/25 13:51 with transfusion(s)? Specify any problems Hx of Preganancy in last 3 No 03/12/25 13:51 Months Nurse Filling Out Transfusion VCHRISTIN 03/12/25 13:51 & Questions: Date: 03/12/25 03/12/25 13:51 Time: 13:53 03/12/25 13:51 Patient unable to answer at this time (ie. confused, unrespo /Reproduction History /Reproductive History - fly setter: /Reproductive Hx- fly setter Hx Now No 03/12/25 13:51 Gestational Age (in weeks): EDC: Hx Hx Para Hx Section SAB No 03/12/25 13:51 Active Medications Active Medications: Current Medications Generic Name Dose Route Start Last Admin Trade Name Freq PRN Reason Stop Dose Admin Lactated Ringer's 1,000 mls @ 15 mls/hr 03/18/25 12:15 03/18/25 12:48 IV 15 mls/hr .Q48H MABEL Administration PFSH Medical History Marijuana use Neuropathy Thyroid disease Gastric reflux Vapes nicotine containing substance Shortness of breath on exertion Lymphoma Hx of malignant carcinoid tumor Substance abuse Alcohol abuse Bipolar disorder Hyperthyroidism Kidney disease Pancreatitis Tobacco abuse COVID-19 Flu vaccine need Tachycardia IBS (irritable bowel syndrome) Wears glasses Depression Anxiety History of renal disease Hepatitis Migraine headache Smoker History of imperforate anus Hydronephrosis Migraine Menometrorrhagia Deafness in left ear Pancreatitis Chronic headaches Drug abuse Asthma Anemia Seasonal allergies demise > 22 weeks, delivered, current hospitalization Home Medications ?Medication ?Instructions ?Recorded ?Last Taken ?Type valacyclovir 500 mg tablet 500 mg PO DAILY INFECTION 0 10/21/21 10/20/21 History rimegepant 75 mg disintegrating 75 mg PO DAILY PRN oscar tana 08/03/23 Unknown History tablet (Nurtec ODT) headache ondansetron 4 mg disintegrating 4 mg PO Q8H PRN PRN Na usea #10 tabs 12/27/23 Unknown Rx tablet albuterol sulfate 90 mcg/actuation 2 puff inhalation Q 4H PRN PRN 03/12/25 Unknown History aerosol inhaler dyspnea buprenorphine 8 mg-naloxone 2 mg 1 ea sublingual TID 0 03/12/25 03/18/25 History sublingual film (Suboxone) levothyroxine 75 mcg capsule 75 mcg PO DAILY 03/12/25 03/18/25 History Allergy/AdvReac Type Severity Reaction Status Date / Time ceftriaxone (From Rocephin) Allergy Unknown Verified 03/18/25 12:36 ceftriaxone sodium (From Allergy Hives Verified 03/18/25 12:36 Rocephin) droperidol Allergy Unknown Verified 03/18/25 12:36 Family History Mother Depression Hypertension Mental disorder Thyroid disorder Aunt Diabetes Grandfather Alcoholism Cancer Surgical History History of esophagogastroduodenoscopy (EGD) History of laparoscopic cholecystectomy History of removal of Port-a-Cath Hx of surgical procedure Hx of cystoscopy Social History household members: none Smoking Status: Current every day smoker tobacco type: e-cigarettes alcohol intake: never substance use type: crack/cocaine, heroin and other details: Currently snorts 1/2 gm daily of each heroin and cocaine. Also uses meth. what type of physical activity do you participate in: aerobics and weight tra ining frequency: 3-4 times per week Review of Systems (Anesthesia) ROS Narrative System reviewed and no additional complaints, except as documented. Physical Exam Resp clear to auscultation bilaterally
--- NOTE | 2025-03-18 13:15 | EGD_PTH ---
PATIENT: AISSATOU JOHNSON LOC: EN U#:[id number] AGE/SX: 34/F ROOM: RE03/18/[address]: Dr. Zion Reese DO : 1990 BED: DIS: 03/18/2025 SPEC #: [id number] RECD: 03/18/25 14:47 STATUS: MAI REAnnalisa #: [id number] TRISH: 03/18/25 13:[address]: Zion Reese DEPT: SURGICAL PATHOLOGY RECD BY: Levy Manzanares ENTERED: 03/18/25 15:29 SP TYPE: EGD BIOPSY OT DR: Pam Mcghee, BRANDON Tissues: A - Gastric mucous membrane B - Esophagus, NOS Procedures: Immunohistochemical Stains Surgery Specimen Level IV HEADER OPERATION: EGD with biopsy PRE-OP DIAGNOSIS: Nausea / vomiting, early satiety, weight loss, severe protein-calorie malnutrition, history of lymphoma TISSUE SUBMITTED: A- Gastric antrum biopsy, B- Distal esophagus biopsy MICROSCOPIC DIAGNOSIS A. Gastric antrum, biopsy: * Oxyntic mucosa with features of reactive gastropathy. * IHC negative for H. pylori organisms. B. Distal esophagus, biopsy: * Squamous mucosa with reactive changes. * Columnar mucosa negative for goblet cell metaplasia. * Negative for dysplasia. MICROSCOPIC DESCRIPTION Slides are reviewed. All matched controls reacted appropriately. These tests were developed and their performance characteristics determined by [facility]. They may not have been cleared or approved by the U.S. Food and Drug Administration. The FDA has determined that such clearance or approval is not necessary. The above immunohistochemical markers and/or special stains have been reviewed by the Pathologist. GROSS DESCRIPTION A. Received in fixative is one container labeled with the patient's name and designated Gastric antrum biopsy. The specimen consists of two irregular fragments of hernandez tissue that measure 0.4 and 0.6 cm. The specimen is totally submitted in one cassette. B. Received in fixative is one container labeled with the patient's name and designated Distal esophagus biopsy. The specimen consists of two irregular fragments of hernandez tissue, each measuring 0.4 cm. The specimen is totally submitted in one cassette. [place] 03/18/2025 CPT:22120t4,58347
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
--- NOTE | 2025-03-18 13:59 | PCM.POST.ANE ---
Anesthesia: Postop Eval I Current Vital Signs Temperature: 97.7 F Pulse Rate: 62 Blood Pressure: 105/77 Respiratory Rate: 16 Pulse Ox: 98 Oxygen Delivery Method: Room Air Assessment Airway patent: Yes Spontaneous unlabored respirations: Yes Mental status: Asleep nausea: No Vomiting: No Anesthesia Complication: Yes Anesthesia Complication Comment:: hives noted proximal to IV site after adm of ondansetron, diphenhydramine adm IV Fluid Hydration Crystalloid volume administer (ml): 400 Total IV fluid infused: 400 Progress Note Anesthesia document: Postop Eval 1 completed: Yes
--- NOTE | 2025-03-18 14:00 | OP.EGD_ITS ---
Patient Name: Hoa Betts Procedure Date: 03/18/2025 1:33 PM Date of : 1990 Age: 34 Procedure: Upper GI endoscopy Indications: Epigastric abdominal pain, Functional Dyspepsia, Nausea with vomiting, Persistent vomiting, Persistent vomiting of unknown cause, Vomiting, Weight loss Providers: Zion Reese DO Medicines: Monitored Anesthesia Care Patient Profile: This is a 34 year old female. Refer to note in patient chart for documentation of history and physical. Patient has symptoms of chronic right upper quadrant abdominal pain, acute left upper quadrant abdominal pain, acute left lower quadrant abdominal pain, chronic dyspepsia, chronic nausea and acute vomiting. Complications: No immediate complications. Procedure: Pre-Anesthesia Assessment: - Prior to the procedure, a History and Physical was performed, and patient medications and allergies were reviewed. The patient is competent. The risks and benefits of the procedure and the sedation options and risks were discussed with the patient. All questions were answered and informed consent was obtained. Patient identification and proposed procedure were verified by the physician in the pre-procedure area. Mental Status Examination: alert and oriented. Airway Examination: normal oropharyngeal airway and neck mobility. Respiratory Examination: clear to auscultation. CV Examination: normal. ASA Grade Assessment: II - A patient with mild systemic disease. After reviewing the risks and benefits, the patient was deemed in satisfactory condition to undergo the procedure. The anesthesia plan was to use monitored anesthesia care (MAC). Immediately prior to administration of medications, the patient was re-assessed for adequacy to receive sedatives. The heart rate, respiratory rate, oxygen saturations, blood pressure, adequacy of pulmonary ventilation, and response to care were monitored throughout the procedure. The physical status of the patient was re-assessed after the procedure. After obtaining informed consent, the endoscope was passed under direct vision. Throughout the procedure, the patient's blood pressure, pulse, and oxygen saturations were monitored continuously. The colonoscope was introduced through the mouth, and advanced to the fourth part of the duodenum. Small bowel enteroscopy was deemed necessary. The upper GI endoscopy was accomplished without difficulty. The patient tolerated the procedure well. Scope In: 1:40:12 PM Scope Out: 1:49:09 PM Total Procedure Duration Time 0 hours 8 minutes 57 seconds Findings: LA Grade A (one or more mucosal breaks less than 5 mm, not extending between tops of 2 mucosal folds) esophagitis with no bleeding was found 34 to 38 cm from the incisors. Biopsies were taken with a cold forceps for histology. Verification of patient identification for the specimen was done. Estimated blood loss was minimal. Suspect gastroparesis due to absence of peristalsis, patient symptoms and retained gastric contents. Biopsies were taken with a cold forceps for histology. Biopsies were taken with a cold forceps for Helicobacter pylori testing. Verification of patient identification for the specimen was done. Estimated blood loss was minimal. An acquired benign-appearing, intrinsic moderate stenosis was found in the first portion of the duodenum and was traversed. Impression: - LA Grade A reflux esophagitis with no bleeding. Biopsied. - Gastroparesis. Biopsied. - Acquired duodenal stenosis. Recommendation: - Discharge patient to home. - Resume previous diet. - Continue present medications. - Await pathology results. Procedure Code(s): --- Professional --- 10222, Small intestinal endoscopy, enteroscopy beyond second portion of duodenum, not including ileum; with biopsy, single or multiple CPT copyright 2021 [employer]. All rights reserved. The codes documented in this report are preliminary and upon case management manager review may be revised to meet current compliance requirements. Zion Reese DO 03/18/2025 1:59:59 PM This report has been signed electronically. Number of Addenda: 0 Note Initiated On: 03/18/2025 1:33 PM
--- NOTE | 2025-03-18 15:11 | PCM.POSTANE2 ---
Anesthesia Postop Eval I Sum Postop Eval Completion status Anesthesia document: Postop Eval 1 completed: Yes Anesthesia Postop Eval I Summary Anesthesia Postop Eval I Summary: Anesthesia Postop Eval I: Assessment Summary Airway patent Yes 03/18/25 14:01 [email or web address] Spontaneous unlabored Yes 03/18/25 14:01 [email or web address] respirations Mental status Asleep 03/18/25 14:01 [email or web address] nausea No 03/18/25 14:01 [email or web address] Vomiting No 03/18/25 14:01 [email or web address] Anesthesia Postop Eval I: Fluid Summary Crystalloid volume administer 400 03/18/25 14:01 [email or web address] (ml) Colloids volume administered ( ml) Blood Product volume administered (ml) Total IV fluid infused 400 03/18/25 14:01 [email or web address] Anesthesia Postop Eval I: Summary Notes Anesthesia Complication Yes 03/18/25 14:01 [email or web address] Anesthesia Complication hives noted 03/18/25 14:01 [email or web address] Comment: proximal to IV site after adm of ondansetron, diphenhydramine adm IV Post-operative progress note Anesthesia: Postop Eval II Evaluation Mental status: Awake and Calm Pain Level: 0 nausea: No Vomiting: No Complications Anesthesia Complication: No
== END 2025-03-18 15:14 | disposition home or self-care (01) ==
LOC: EN 11:58 → AC 11:59
PROVIDERS: Anesthesiology; PCP Nurse Practitioner Family; Referring Provider Nurse Practitioner Family; Visit Provider Internal Medicine Gastroenterology
PROC: 0DJD8ZZ Inspection of Lower Intestinal Tract, Via Natural or Artificial Opening Endoscopic (ICD-10-PCS; CPT 45378; principal; 2025-03-18 13:10)
DX: K21.00 Gastro-esophageal reflux disease with esophagitis, without bleeding (principal); F11.99 Opioid use, unspecified with unspecified opioid-induced disorder; F31.9 Bipolar disorder, unspecified; E43 Unspecified severe protein-calorie malnutrition; F12.90 Cannabis use, unspecified, uncomplicated; R63.4 Abnormal weight loss; F41.9 Anxiety disorder, unspecified; N13.30 Unspecified hydronephrosis; Z79.899 Other long term (current) drug therapy; K31.84 Gastroparesis; R68.81 Early satiety; K31.5 Obstruction of duodenum; Z86.16 Personal history of COVID-19; Z90.49 Acquired absence of other specified parts of digestive tract; F17.210 Nicotine dependence, cigarettes, uncomplicated; Q60.0 Renal agenesis, unilateral; Z68.1 Body mass index [BMI] 19.9 or less, adult
CPT/HCPCS: 44361; 81025; 88305; 88342; J2405

== ENCOUNTER 2025-03-19 16:13 | Emergency (ER) | payer MEDICAID, SELFPAY ==
[2025-03-19 16:13] VITALS: BP 123/102; PULSE 75; RESP 18; TEMP 36.3; O2SAT 99; BMI 16.0
[2025-03-19 17:22] VITALS: TEMP 36.8
[2025-03-19 17:40] LABS: Hematocrit 35.2 % (37-47); Hemoglobin 11.8 g/dL (12.0-15.0); Immature Granulocytes Count 0.030 X10^3/uL (0.0-0.0); Mean Corp Hgb Conc 33.5 g/dL (32-36); Mean Corpuscular Volume 87.3 fL (81-99); Mean Platelet Vol. 10.2 fl (6.2-12.0); NRBC Flagged by Analyzer 0 % (0-5); Platelet Count 173 K/mm3 (150-450); RBC Distribution Width CV 11.9 % (11.6-14.6); RBC Distribution Width SD 38.0 fl (35.1-43.9); Red Blood Count 4.03 M/mm3 (4.2-5.4); White Blood Count 7.2 K/mm3 (4.4-11.0)
[2025-03-19 17:50] LABS: Internal QC Validated? YES +Cl - CLEAR BKGD; Pregnancy, Serum, hCG Quali. NEGATIVE Negative; Record Kit Lot#, Serum Preg. 964736
[2025-03-19 18:23] LABS: AST(SGOT) 18 U/L (<=31); Alanine Aminotransfer ALT/SGPT 10 U/L (<=34); Albumin, Serum 4.6 g/dL (3.5-5.0); Alkaline Phosphatase 75 U/L (35-104); Anion Gap 12 (5-15); BUN 18 mg/dL (4-19); BUN/Creat Ratio 8.1 RATIO (10-20); Calcium,Total 9.6 mg/dL (7.6-11.0); Carbon Dioxide 23.0 mmol/L (21.0-32.0); Chloride 105 mmol/L (98-108); Estimated Creatinine Clearance 27.64 ml/min (50-250); Globulin 3.1 g/dL (2.2-4.2); Glucose 86 mg/dL (70-99); Lipase 46 U/L (13-75); Potassium 3.3 mmol/L (3.3-5.1)
[2025-03-19 19:00] VITALS: BP 154/104; PULSE 68; RESP 16; O2SAT 98
--- NOTE | 2025-03-19 21:22 | EDS_ITS ---
HPI HPI - GI History of Present Illness Chief Complaint: Abd Pain Narrative Narrative: 34-year-old female past medical history of congenital solitary kidney, chronic kidney disease, Hodgkin's lymphoma, chronic abdominal pain presents with increasing abdominal pain that she has had for the last 9 months. She relates history that she had upper endoscopy performed by Dr. Reese yesterday. He states that she has gastroparesis and that her stomach is extremely dilated. She states that she was told that they are unsure if she will require surgery. She relates history that she had cholecystectomy 2 weeks [address] performed [address] Orellana at [facility] because it was thought that may be that was the cause of her pain. She states that she has had significant weight loss as well as chronic nausea and vomiting. She also relates history that she saw oncology, and she was supposed to get a CT of the abdomen and pelvis with IV contrast, but given her chronic kidney disease, they refused to do an she was told to come to this hospital to have it performed. [facility] Medical History Marijuana use Neuropathy Thyroid disease Gastric reflux Vapes nicotine containing substance Shortness of breath on exertion Lymphoma Hx of malignant carcinoid tumor Substance abuse Alcohol abuse Bipolar disorder Hyperthyroidism Kidney disease Pancreatitis Tobacco abuse COVID-19 Flu vaccine need Tachycardia IBS (irritable bowel syndrome) Wears glasses Depression Anxiety History of renal disease Hepatitis Migraine headache Smoker History of imperforate anus Hydronephrosis Migraine Menometrorrhagia Deafness in left ear Pancreatitis Chronic headaches Drug abuse Asthma Anemia Seasonal allergies demise > 22 weeks, delivered, current hospitalization Home Medications ?Medication ?Instructions ?Recorded ?Last Taken ?Type valacyclovir 500 mg tablet 500 mg PO DAILY INFECTION 0 10/21/21 10/20/21 History rimegepant 75 mg disintegrating 75 mg PO DAILY PRN oscar tana 08/03/23 Unknown History tablet (Nurtec ODT) headache ondansetron 4 mg disintegrating 4 mg PO Q8H PRN PRN Na usea #10 tabs 12/27/23 Unknown Rx tablet albuterol sulfate 90 mcg/actuation 2 puff inhalation Q 4H PRN PRN 03/12/25 Unknown History aerosol inhaler dyspnea buprenorphine 8 mg-naloxone 2 mg 1 ea sublingual BID 0 03/12/25 03/18/25 History sublingual film (Suboxone) levothyroxine 75 mcg capsule 75 mcg PO DAILY 03/12/25 03/18/25 History Allergy/AdvReac Type Severity Reaction Status Date / Time ceftriaxone (From Rocephin) Allergy Unknown Verified 03/19/25 16:17 ceftriaxone sodium (From Allergy Hives Verified 03/19/25 16:17 Rocephin) droperidol Allergy Unknown Verified 03/19/25 16:17 Family History Mother Depression Hypertension Mental disorder Thyroid disorder Aunt Diabetes Grandfather Alcoholism Cancer Surgical History History of esophagogastroduodenoscopy (EGD) History of laparoscopic cholecystectomy History of removal of Port-a-Cath Hx of surgical procedure Hx of cystoscopy Social History household members: none Smoking Status: Current every day smoker tobacco type: e-cigarettes alcohol intake: never substance use type: crack/cocaine, heroin and other details: Currently snorts 1/2 gm daily of each heroin and cocaine. Also uses meth. what type of physical activity do you participate in: aerobics and weight training frequency: 3-4 times per week ROS ROS ED ROS Narrative Review of systems positive for weight loss, nausea and vomiting, abdominal pain x 9 months. EXAM Physical Exam Narrative Exam Narrative: Afebrile. Vital signs noted. Nontoxic-appearing. Cardiovascular examination reveals a regular rate and rhythm. Lungs are clear to auscultation bilaterally. Abdomen is soft with decreased bowel sounds, diffuse tenderness to palpation. Mild cachexia. Neurological examination nonfocal and nonlateralizing.. Const Vital Signs: 03/19/25 16:13 03/19/25 17:22 03/19/25 19:00 Temperature 97.3 F L 98.3 F Temperature Source Temporal Oral Pulse Rate 75 68 Respiratory Rate 18 16 Blood Pressure 123/102 H 154/104 H Blood Pressure Mean 109 120 Pulse Ox 99 98 Oxygen Delivery Method Room Air Room Air MDM MDM MDM Narrative Medical decision making narrative: Differential diagnosis includes but not limited to bowel obstruction versus gastroparesis/ileus versus chronic abdominal pain. I reviewed her laboratory work and she has normal white count of 7.2 with hemoglobin stable 11.8, hematocrit 35.2, platelet count normal at 173. CMP is consistent with her chronic kidney disease with a BUN of 18 and creatinine 2.2 to been as high as 2.4. Glucose normal at 86, normal sodium and normal potassium, normal chloride and normal carbon dioxide. Lipase normal at 46 so I doubt pancreatitis. Serum test is negative. I had lengthy discussion with the patient and her mother. She was given 1 dose of morphine and ondansetron here. I did review her prior ED visits. She has been seen for cannabis hyperemesis and chronic abdominal pain in the past. I discussed patient with Dr. Reese with gastroenterology. He states that he thought that perhaps she might have gastroparesis based on the upper endoscopy. He states that she should follow-up with the surgeon at the [facility]. It was not thought that she needed a CT with IV contrast here. I explained this to the patient and her mother. They state that they are frustrated because they have been following up with the [facility], and she has continued pain. In discussion with gastroenterology as well it was thought that noncontrast scan should be performed to rule out any obstruction or other acute pathology. I will also send a urinalysis as this was part of her workup in the past and she started complaining of back pain/low back pain. I do not feel that she needs further narcotic pain medication for her chronic abdominal pain. I do not think that she is meeting admission criteria currently. This was discussed with Dr. Reese as well who agrees that she needs to follow-up with her physicians at the [facility]. I reviewed your CT results and while there is no evidence of an obstruction, she may have developing enteritis. Review of her urinalysis shows 5-10 WBCs, but I do not feel that she has a full-blown urinary tract infection that requires antibiotics. I sent this for culture as she has 1+ bacteria. Upon repeat examination, she is resting on the cot, looking at her cellular tel ephone. She states she is frustrated because no one can find out why she has had abdominal pain for a year. I do not feel she has a surgical abdomen, and I feel she can be discharged to follow-up with her physicians. I do not feel that she requires narcotic pain medications as well. She will follow-up with gastroenterology as directed. Disposition is discharged home in stable condition. History & Record Review Discussion w/independent historian: Patient Additional record(s) reviewed:: Prior ED visit Lab Data Attestation: I reviewed the patient's lab results. Labs: Laboratory Results - last 24 hr 03/19/25 03/19/25 17:21 21:00 WBC 7.2 RBC 4.03 L Hgb 11.8 L Hct 35.2 L MCV 87.3 MCH 29.3 MCHC 33.5 RDW Std Deviation 38.0 RDW Coeff of Maki 11.9 Plt Count 173 MPV 10.2 Immature Gran % (Auto) 0.400 Neut % (Auto) 58.1 Lymph % (Auto) 35.5 [place] % (Auto) 5.0 Eos % (Auto) 0.6 Baso % (Auto) 0.4 Absolute Neuts (auto) 4.2 Absolute Lymphs (auto) 2.55 Nucleated RBC % 0 Sodium 140 Potassium 3.3 Chloride 105 Carbon Dioxide 23.0 Anion Gap 12 BUN 18 Creatinine 2.22 H Estim Creat Clear Calc 27.64 L Est GFR (MDRD) Non-Af 29 L BUN/Creatinine Ratio 8.1 L Glucose 86 Calcium 9.6 Total Bilirubin 0.33 AST 18 ALT 10 Alkaline Phosphatase 75 Total Protein 7.8 Albumin 4.6 Globulin 3.1 Albumin/Globulin Ratio 1.5 Lipase 46 Serum , Qual NEGATIVE Urine Color Yellow Urine Clarity Clear Urine pH 7.0 Ur Specific [place] 1.010 Urine Protein 100 H Urine Glucose (UA) Normal Urine Ketones Negative Urine Occult Blood Negative Urine Nitrite Negative Urine Bilirubin Negative Urine Urobilinogen Normal Ur Leukocyte Esterase Negative Urine RBC 0-5 SEEN Urine WBC 5-10 SEEN Ur Squamous Epith Cells 0-5 SEEN Urine Bacteria 1+ Urine Mucus 0 SEEN Radiography Diagnostic Testing: Clinical Impression(s) from Imaging Studies Abdomen/Pelvis CT 03/19/25 22:18 IMPRESSION: Hepatomegaly with diffuse steatosis. Gaseous dilatation of large bowel loops . Distended small bowel fluid-filled loops with mild wall thickening. Findings could be related to related to underlying infectious/inflammatory process such as developing enteritis. Evaluation is severely limited due to lack of contrast. There is suggestion of scattered mesenteric lymph nodes. Findings could be related to patient underlying history of non-Hodgkin's lymphoma. PET-CT should be considered for better characteriz ation. Left hydroureteronephrosis without definite evidence of distal obstruction. Markedly dilated urinary bladder. There is persistent soft tissue mass within right pelvis likely related to deviated uterus with prominent right adnexa. Findings are similar when compared to prior study. These findings could be better appreciated on contrast enhanced CT. Diffuse sclerosis of vertebral bodies findings could be related to underlying CKD. Reading Location: [facility] Discharge Plan Triage Chief Complaint: Abd Pain ED Provider: Collin Arechiga Dx/Rx/DC Orders Clinical Impression: Chronic abdominal pain, CKD (chronic kidney disease) stage 3, GFR 30-59 ml/min, Solitary kidney, congenital, Enteritis Instructions: ED Abdominal Pain Unkn Cause Fem, ED Chronic Pain, ED Gastroenteritis, Noninfectious Prescriptions: No Action valacyclovir 500 mg tablet 500 mg PO DAILY Nurtec ODT 75 mg tablet,disintegrating 75 mg PO DAILY PRN (Reason: migraine headache) buprenorphine-naloxone [Suboxone] 8-2 mg film 1 ea sublingual BID levothyroxine 75 mcg capsule 75 mcg PO DAILY albuterol sulfate 90 mcg/actuation HFA aerosol inhaler 2 puff inhalation Q4H PRN PRN (Reason: dyspnea) ondansetron 4 mg tablet,disintegrating 4 mg PO Q8H PRN PRN (Reason: Nausea) Qty: 10 0RF Primary Care Provider: Pam Mcghee NP Referrals: Zion Reese DO [Med Staff - Active Staff, Gastroenterology] - As soon as possible Pam Mcghee NP, [employer] [Primary Care Provider, Family Practice] Activity Restrictions/Additional Instructions: Follow-up with your fire technology instructor and your surgeon. Print Language: Montserratian Disposition Disposition: Home, Self Care
--- OUTSIDE RECORDS SUMMARY | 2025-03-19 21:29 | XMS RPT_ITS | CCD ---
Author Organization [facility] Care Team Providers Care Jd Edwards Name Role Phone NELLIE WOODS Unavailable Unavailable JOE EMERY Unavailable Unavailable NELLIE WOODS Unavailable Unavailable NELLIE WOODS A Unavailable Unavailable JUANY CASTRO Unavailable Unavailable RUPEROBERT, NELLIE A Unavailable Unavailable RUPEROBERT, NELLIE A Unavailable Unavailable BRENNEN MARADIAGA Unavailable Unavailable Veronika Ferrer Primary Care Provider Veronika Ferrer Primary Care Provider PROVIDER, UNKNOWN Attending Unavailable PROVIDER, UNKNOWN Admitting Unavailable Dr. Veronika Ferrer Primary Care Provider [phone] Dr. Veronika Ferrer Referring Provider [phone] Julian RODRIGUEZ, PA Eros Barreto Attending Provider Dr. Veronika Ferrer Primary Care Provider [phone] Dr. Amado Kowalski Emergency Provider Dr. Anabelle Ashley Admit Provider Dr. Eunice Akins Attending Provider Dr. Eunice Akins Other Provider Veronika Ferrer MD Primary Care Provider Solomon Judd DO Primary Care Provider Solomon Judd DO Primary Care Provider Solomon Judd Unavailable Unavailable Unavailable Dr. Solomon Judd Primary Care Unava ilable STANLEY Nuñez Attending Unavailable STANLEY Nuñez Referring Unavailable Solomon Judd DO Primary Care Provider Solomon Judd DO Primary Care Provider Solomon Judd DO Primary Care Provider Unavailable Primary Care Provider UnavailSOLOMON Issa Attending Unavailable SOLOMON JUDD Primary Care Unavailable SOLOMON JUDD Attending Unavailable SOLOMON JUDD Referring Unavailable SOLOMON JUDD Primary Care Unavailable SOLOMON JUDD Attending Unavailable SOLOMON JUDD Referring Unavailable SOLOMON JUDD Primary Care Unavailable SOLOMON JUDD Attending Unavailable SOLOMON JUDD Primary Care Unavailable SOLOMON JUDD Attending Unavailable SOLOMON JUDD Primary Care Unavailable REGULO KIM Attending Unavailable SOLOMON JUDD Primary Care Unavailable SOLOMON JUDD Attending Unavailable SOLOMON JUDD Primary Care Unavailable Solomon Judd DO Primary Care Provider Unavailable Primary Care Provider Unavailbritney Ferrer MD, Efewalejandra Trujillo Primary Care Provider GENERIC PROVIDER, NO ASSIGNED PCP Primary Care Unavailable ASHELFAH, GHASEM E Admitting Unavailable ASHELFAH, GHASEM E Attending Unavailable ABDULAZIZ ADAM Consulting Unavailable GENERIC PROVIDER, NO ASSIGNED PCP Primary Care Unavailable GOLDIE SWEET Attending Unavailable BENITO RAZA Referring Unavailable GENERIC PROVIDER, NO ASSIGNED PCP Primary Care Unavailable ABDULAZIZ ADAM Attending Unavailable GENERIC PROVIDER, NO ASSIGNED PCP Primary Care Unavailable BENITO RAZA Attending Unavailable ABDULAZIZ ADAM Referring Unavailable GENERIC PROVIDER, NO ASSIGNED PCP Primary Care Unavailable BENITO RAZA Attending Unavailable GENERIC PROVIDER, NO ASSIGNED PCP Primary Care Unavailable Litzy COPE.Pam THOMAS Primary Care Provider Nabil PETERSON, Dr. Bui Primary Care Provider Geni PETERSON, Collin Emergency Provider [phone] Collin Arechiga MD Attending Provider Queden SAND FILLER-C, Pam Primary Care Provider [phone] Dr. Ashlee Barreto DO Emergency Provider Dr. Ashlee Barreto DO Attending Provider Dr. Anderson Avila DO Emergency Provider Dr. Anderson Avila DO Attending Provider Litzy SAND FILLER-C, Pam Referring Provider Johan SAND FILLER-C, Mayuri Attending Provider Zion Reese DO Unavailable [phone] Johan SAND FILLER-C, Mayuri Referring Provider Babs Acosta RN Unavailable QUEDEN, PAM A Primary Care Unavailable MICHAEL PRO Attending Unavailable MICHAEL PRO Admitting Unavailable JUSTINEJUANY Admitting Unavailable JUSTINEJUANY F Attending Unavailable QUEDEN, PAM A Primary Care Unavailable JUSTINEJUANY F Referring Unavailable QUEDEN, PAM A Primary Care Unavailable QUEDEN, PAM A Attending Unavailable QUEDEN, PAM A Primary Care Unavailable QUEDEN, PAM A Referring Unavailable QUEDEN, PAM A Primary Care Unavailable QUEDEN, PAM A Attending Unavailable SELF Referring Unavailable QUEDEN, PAM A Primary Care Unavailable QUEDEN, PAM A Attending Unavailable SHERI AELJANDRO Referring Unavailable QUEDEN, PAM A Primary Care Unavailable SHERI ALEJANDRO Attending Unavailable QUEDEN, PAM A Primary Care Unavailable QUEDEN, PAM A Attending Unavailable VERONIKA FERRER Primary Care Unavailable QUEDEN, APM A Attending Unavailable QUEDEN, PAM A Primary Care Unavailable JUAN R GARCIA Attending Unavailable QUEDEN, PAM A Referring Unavailable QUEDEN, PAM A Primary Care Unavailable JUAN R GARCIA Referring Unavailable QUEDEN, PAM A Primary Care Unavailable LENORA HENNING Attending Unavailable QUEDEN, PAM A Referring Unavailable QUEDEN, PAM A Primary Care Unavailable BETHANY GIL Attending Unavailable OLEGHE, EFEWONGBE B Primary Care Unavailable MANUEL COY Attending Unavailable OLEGHE, EFEWONGBE B Primary Care Unavailable OLEGHE, EFEWONGBE B Primary Care Unavailable MARILU RAYA Referring Unavailable OLEGHE, EFEWONGBE B Primary Care Unavailable BETHANY GIL Attending Unavailable OLEGHE, EFEWONGBE B Primary Care Unavailable DELMY NATION Attending Unavailable QUEDEN, PAM A Primary Care Unavailable QUEDEN, PAM A Primary Care Unavailable QUEDEN, PAM A Primary Care Unavailable THADDEUS SHELL Attending Unavailable QUEDEN, PAM A Primary Care Unavailable GUSTAVO HARMON Attending Unavailable QUEDEN, PAM A Referring Unavailable QUEDEN, PAM A Primary Care Unavailable MICHAEL PRO Attending Unavailable QUEDEN, PAM A Primary Care Unavailable ASHLI SALDANA Attending Unavailable MICHAEL PRO Referring Unavailable QUEDEN, PAM A Primary Care Unavailable PANCHO HOOPER Attending Unavailable QUEDEN, PAM A Referring Unavailable QUEDEN, PAM A Primary Care Unavailable JUANY ANDERSON Attending Unavailable QUEDEN, PAM A Referring Unavailable QUEDEN, PAM A Primary Care Unavailable QUEDEN, PAM A Referring Unavailable QUEDEN, PAM A Primary Care Unavailable Anderson Avila Attending Unavailable Queden SAND FILLER, Pam Primary Care Unavailable Queden SAND FILLER, Pam Primary Care Unavailable Ashlee Barreto Attending Unavailable Mayuri Prado Referring Unavailable Queden SAND FILLER, Pam Primary Care Unavailable Mayuri Prado Attending Unavailable Johan Mayuri Referring Unavailable Queden SAND FILLER, Pma Primary Care Unavailable Mayuri Prado Attending Unavailable Queden SAND FILLER, Pam Primary Care Unavailable Queden SAND FILLER, Pam Referring Unavailable JohanMayuri Attending Unavailable Mary Ann, Zion Consulting Unavailable Friend, Zion Attending Unavailable Queden SAND FILLER, Pam Referring Unavailable Queden SAND FILLER, Pam Primary Care Unavailable Friend, Zion Attending Unavailable Queden SAND FILLER, Pam Referring Unavailable Queden SAND FILLER, Pam Primary Care Unavailable Oleghe, Efewongbe Primary Care Unavailable Collin Arechiga Attending Unavailable Allergies Allergy Classification Reported Allergen(s) Allergy Type Date of Onset Reaction(s) Facility Cats (1 source) Cat Animal Allergy (Dander) 1 Shortness of Breath [facility] DOPamine Antagonists (1 source) Droperidol Drug Allergy 3 Anaphylaxis [facility] (20 sources) atorvastatin; Translations: [ATORVASTATIN] Drug Allergy 6 [place] (20 sources) cefTRIAXone; Translations: [CEFTRIAXONE] Drug Allergy 6 Rash, Hives, Unknown [place] (20 sources) Droperidol; Translations: [DROPERIDOL] Drug Allergy 3 Anxiety, Anaphylaxis [place] (20 sources) Meperidine; Translations: [MEPERIDINE] Drug Allergy 6 Unknown [place] (20 sources) Fentanyl And Related Propensity to adverse reactions to drug 6 Other (See Comments) [place] (2 sources) Other Propensity to adverse reactions 6 Shortness Of Breath [place] (11 sources) cefTRIAXone; Translations: [ceftriaxone sodium] Drug Allergy 2 Hives [facility] (2 sources) LAXATIVE Allergy to substance 2 Unknown [facility] Work Phone: (20 sources) Cat; Translations: [CATS] Allergy to substance 1 Shortness of Breath [facility] (20 sources) Laxative Pill; Translations: [LAXATIVE PILL] Drug Allergy 0 GI Upset [facility] (20 sources) Bisacodyl Drug Allergy 0 Unknown [facility] (20 sources) Droperidol Allergy to substance 3 Anaphylaxis, Anxiety [facility] (14 sources) Cat Hair Extract Allergy to substance 1 Shortness of breath [facility] (20 sources) Sennosides; Translations: [SENNOSIDES] Drug Intolerance 0 Other: See Comments [facility] (10 sources) Cat Hair Extract Drug Allergy 1 Shortness of breath [facility] (20 sources) atorvastatin Drug Allergy 6 Unknown [facility] (1 source) cefTRIAXone Drug Allergy 5 [facility] (1 source) Droperidol Drug Allergy 5 [facility] Medications Current Medications Medication Drug Class(es) Dates Sig (Normalized) Sig (Original) acetaminophen 325 mg / oxyCODONE hydrochloride 5 mg oral tablet (20 sources) Opioid Agonist Start: 02-25-2025 End: 02-28-2025 take 1 tablet by mouth four times daily as needed for pain oxyCODONE-acetami nophen (PERCOCET) 5-325 mg tablet Indications: RUQ pain Take 1 tablet by mouth four times a day as needed for up to 3 days. FOR PAIN. 8 tablet 02/25/2025 3:58 PM EDT 02/25/2025 02/28/2025 Active Start: 06-12-2015 End: 09-25-2019 Oxycodone-Acetaminophen 1 TA BLET tablet Discontinued 1 - 2 {tbl} PO EVERY 4 HOURS NEEDED as needed for Pain 20 0 June 16, 2015 3:50pm September 25, 2019 5:19pm Start: 06-12-2015 End: 09-25-2019 take 1 tablet by mouth every four hours as needed Oxycodone-Acetaminophen Discontinued 1 - 2 TABLET PO EVERY 4 HOURS NEEDED June 16, 2015 3:50pm September 25, 2019 5:19pm budesonide 3 mg delayed release oral capsule (1 source) Corticosteroid Start: 04-06-2021 take 9 mg by mouth once daily Budesonide Active 9 MG PO DAILY April 06, 2021 11:21am 60 actuat budesonide 0.08 mg/actuat / formoterol fumarate 0.0045 mg/actuat metered dose inhaler (12 sources) Corticosteroid, beta2-Adrenergic Agonist Start: 11-21-2022 End: 11-21-2023 take 2 puff(s) by inhalation twice daily as needed for wheezing budesonide-formot laurie (Symbicort) 80-4.5 MCG/ACT inhaler Indications: Moderate persistent asthma without complication Inhale 2 puffs 2 times daily as needed (shortness of breath, wheezing). Rinse mouth with water after use to reduce aftertaste and incidence of candidiasis. Do not swallow. 10.2 g 2 11/21/2022 11/21/2023 Active buprenorphine 8 mg / naloxone 2 mg sublingual tablet (20 sources) Partial Opioid Agonist, Opioid Antagonist Start: 06-25-2024 buprenorphine-nal OXone SL (SUBOXONE) 8-2 mg subl Dissolve 2 tablets under the tongue once daily. D/T hyper active thyroid 06/25/2024 Active Start: 06-25-2024 buprenorphine- naloxone (SUBOXONE) 2-0.5 mg film once daily. 06/25/2024 Active Start: 10-21-2021 Buprenorphine- Naloxone (Suboxone) 4-1 mg Film Active 1 NMA SL TWICE A DAY October 21, 2021 12:00am ADDICTION Start: 10-21-2021 Buprenorphine- Naloxone (Suboxone) 4-1 mg Film Active 1 FILM SL TWICE A DAY October 21, 2021 12:00am End: 04-03-2023 take 1 tablet under the tongue once daily buprenorphine-naloxone (ZUBSOLV) 2.9-0.7 1 mg subl Dissolve 1 tablet under the tongue once daily. sublingual 0 04/03/2023 Discontinued (Course of therapy completed) End: 09-01-2022 buprenorphine-naloxone (Zubs olv) 2.9-0.[address] 1 tablet under the tongue in the morning. 0 09/01/2022 Discontinued (Therapy completed) buprenorphine-na loxone (SUBOXONE) 2-0.[address] 2 tablets under the tongue 2 times daily. Pt uses 1 mg tab; no formulary in [place] 0 Active Comment on above: Dissolve 1 tablet un tanika the tongue once daily. sublingual cephalexin 500 mg oral capsule (20 sources) Cephalosporin Antibacterial Start: End: take 1 capsule by mouth three times daily cephALEXin (KEFLEX) 500 mg capsule Indications: Frequency of urination Take 1 capsule by mouth three times a day for 7 days. 21 capsule 11/22/2024 11/29/2024 Active Start: 10-11-2024 End: 12-31-2024 take 1 capsule by mouth every twelve hours Cephalexin 500 mg capsule Discontinued 500 mg PO EVERY 12 HOURS 14 0 October 11, 2024 12:00am December 31, 2024 10:19am Start: 08-14-2024 End: 08-21-2024 take 1 capsule by mouth twice daily cephALEXin (KEFLEX) 250 mg capsule Take 1 capsule by mouth two times a day for 7 days. 14 capsule 08/14/2024 08/21/2024 Active Start: 08-14-2024 End: 08-14-2024 take 1 capsule by mouth twice daily cephALEXin (KEFLEX) 500 mg capsule Take 1 capsule by mouth two times a day for 7 days. 14 capsule 08/14/2024 08/14/2024 Discontinued Start: 11-26-2018 End: 09-25-2019 take 1 capsule by mouth at bedtime Cephalexin 250 mg capsule Discontinued 250 mg PO AT BEDTIME November 26, 2018 12:00am September 25, 2019 5:17pm cetirizine hydrochloride 10 mg oral tablet (16 sources) Histamine-1 Receptor Antagonist Start: 10-13-2022 End: 11-12-2022 take 1 tablet by mouth once daily cetirizine (ZyrTEC) 10 MG tablet Take 1 tablet (10 mg) by mouth daily. 30 tablet 0 10/13/2022 Active enteric contrast (will be provided with radiology test) (2 sources) Start: 02-06-2025 End: 02-07-2025 enteric contrast (will be provided with radiology test) Indications: Hodgkin lymphoma of lymph nodes of multiple regions, unspecified Hodgkin lymphoma type (HCC) , Unintentional weight loss of more than 10 pounds in 90 days , History of Hodgkin's lymphoma For CT CHESTABD/PEL W IVCON Routine order Administer, As Directed One Time Only, via Oral, Rectal, both Oral and Rectal, Enteric Tube, Stoma or Indwelling Catheter, Enteric Contrast as designated per enteric contrast guidelines 1 each 02/06/2025 02/07/2025 Active etonogestrel 68 mg drug implant (20 sources) Progestin Start: 08-01-2019 End: 04-19-2026 etonogestrel (NEXPLANON) subdermal implant 68 mg Indications: Insertion of implantable subdermal contraceptive 1 Each by SUBDERMAL route as directed. 1 Each 04/20/2023 04/19/2026 Active Comment on above: 1 Each by SUBDERMAL route as directed. FLUoxetine 10 mg oral capsule (2 sources) Serotonin Reuptake Inhibitor take 1 capsule by mouth once daily FLUoxetine (PROZAC) 10 MG capsule Take 10 mg by mouth daily 0 Active hydrOXYzine hydrochloride 25 mg oral tablet (20 sources) Antihistamine Start: 09-12-2023 End: 10-12-2023 take 1 tablet by mouth every six hours as needed hydrOXYzine HCl (ATARAX) 25 mg tablet Take 1 tablet by mouth every 6 hours as needed. 120 tablet 0 09/12/2023 10/12/2023 Active Start: 12-24-2021 End: 12-20-2024 hydrOXYzine HCl (ATARAX) 50 mg tablet 12/24/2021 12/20/2024 Discontinued Start: 12-24-2021 End: 04-03-2023 take 1 tablet by mouth every eight hours as needed hydrOXYzine HCl (ATARAX) 50 mg tablet Take 1 tablet by mouth three times daily as needed for anxiety. 30 tablet 0 12/24/2021 04/03/2023 Discontinued (Course of therapy completed) Start: 12-24-2021 End: 09-01-2022 take 1 tablet by mouth every eight hours as needed hydrOXYzine HCl (Atarax) 50 MG tablet Take 50 mg by mouth every 8 hours as needed. 0 12/24/2021 09/01/2022 Discontinued (Therapy completed) Start: 07-21-2018 End: 09-25-2019 Hydroxyzine HCl Discontinued 25 mg PO NEEDED as needed for Anxiety July 21, 2018 1:00am September 25, 2019 5:18pm Comment on above: Take 1 tablet by taylor th three times daily as needed for anxiety. Take 1 tablet by taylor th every 6 hours as needed. iv contrast (will be provided with radiology test) (3 sources) Start: 02-06-2025 End: 02-07-2025 iv contrast (will be provided with radiology test) Indications: Hodgkin lymphoma of lymph nodes of multiple regions, unspecified Hodgkin lymphoma type (HCC) , Unintentional weight loss of more than 10 pounds in 90 days , History of Hodgkin's lymphoma CT Chest ABD/PEL-Inject, intravenously, once for 1 dose.No IV access, insert saline lock prior to the beginning of sedation, infusion, injection of imaging exam. Discontinue saline lock post exam. If Pt. has a central line or IVAD, may access for administration according to line specific nursing protocol. Once exam is complete flush line and de-access according to line specific nursing protocol in the CT contrast administration guidelines link. 1 each 02/06/2025 02/07/2025 Active Start: 04-05-2023 End: 04-05-2023 inject 1 dose intravenously once iv contrast (will be provided with radiology test) MRI Brain Inject, intravenously, once for 1 [...] in the MR contrast administration guidelines link 1 Each 0 04/05/2023 04/05/2023 Discontinued Comment on above: MRI Brain Inject, in travenously, once for 1 dose.No IV access, insert saline lock prior to beginning of sedation, infusion, injection of imaging exam.Discontinue saline lock post exam. If Pt. has a central line or IVAD, may access for administration according to line specific nursing protocol.Once exam is complete flush line and de-access according to line specific nursing protocol in the MR contrast administration guidelines link levothyroxine sodium 0.075 mg oral tablet (20 sources) l-Thyroxine Start: 025 take 1 tablet by mouth once daily before breakfast levothyroxine (SYNTHROID) 75 mcg tablet Indications: Hypothyroidism, unspecified type Take 1 tablet by mouth daily before breakfast. 90 tablet 1 01/26/2025 Active Start: 09-13-2023 End: 01-26-2025 take 1 tablet by mouth once daily in the morning levothyroxine (SYNTHROID) 50 mcg tablet Indications: Hypothyroidism, unspecified type Take 1 tablet by mouth daily at 6 am. 90 tablet 1 12/20/2024 01/26/2025 Discontinued Start: 02-20-2020 End: 03-03-2023 take 1 tablet by mouth once daily Levothyroxine 150 mcg tablet Discontinued 150 ug PO DAILY 30 0 September 24, 2021 8:56am October 21, 2021 2:19pm Start: 09-27-2019 End: 08-19-2020 take 1 tablet by mouth once daily Levothyroxine 137 mcg tablet Discontinued 0 .ROUTE .COMPLEX 90 April 02, 2020 11:48am August 19, 2020 2:44pm TAKE 1 TABLET BY MOUTH DAILY Start: 09-25-2019 End: 09-27-2019 take 1 tablet by mouth once daily Levothyroxine 125 mcg tablet Discontinued 125 ug PO DAILY September 25, 2019 12:00am September 27, 2019 12:02pm Start: 11-26-2018 End: 09-25-2019 take 1 tablet by mouth once daily Levothyroxine 112 mcg tablet Discontinued 0 .ROUTE .COMPLEX 28 3 July 10, 2019 5:57pm September 25, 2019 5:19pm TAKE 1 TABLET BY MOUTH DAILY Start: 10-15-2018 End: 11-26-2018 take 1 tablet by mouth once daily Levothyroxine 125 mcg tablet Discontinued 125 ug PO DAILY October 15, 2018 12:00am November 26, 2018 3:21pm Start: 09-27-2018 End: 10-15-2018 levothyroxine Discontinued P O September 27, 2018 11:00am October 15, 2018 3:59pm Start: 09-27-2018 End: 10-15-2018 levothyroxine Discontinued P O September 27, 2018 12:00am October 15, 2018 3:59pm Start: 09-27-2018 End: 10-15-2018 levothyroxine Discontinued P O September 26, 2018 11:00pm October 15, 2018 2:59pm Start: 06-16-2015 End: 06-16-2015 take 1 tablet by mouth once daily Levothyroxine 25 MCG tablet Discontinued 25 ug PO DAILY June 16, 2015 1:00am June 16, 2015 3:50pm Start: 06-16-2015 End: 09-25-2019 take 1 tablet by mouth once daily Levothyroxine 50 MCG tablet Discontinued 50 ug PO DAILY 30 0 June 16, 2015 1:00am September 25, 2019 5:19pm Comment on above: Take 1 tablet by taylor th once daily. Take 1 tablet by taylor th daily at 6 am. loperamide hydrochloride 2 mg oral capsule (1 source) Opioid Agonist Start: take 1 capsule by mouth every six hours Loperamide (Imodium A-D) 2 mg capsule Active 2 MG PO EVERY 6 HOURS August 19, 2020 11:52am naproxen 500 mg oral tablet (1 source) Nonsteroidal Anti-inflammatory Drug Start: 021 take 500 mg by mouth twice daily Naproxen Active 500 MG PO TWICE A DAY April 30, 2021 7:10pm nitrofurantoin, macrocrystals 25 mg / nitrofurantoin, monohydrate 75 mg oral capsule (4 sources) Nitrofuran Antibacterial Start: End: take 1 capsule by mouth twice daily at mealtime nitrofurantoin monohydrate and macrocrystal (MACROBID) 100 mg capsule Indications: Acute cystitis without hematuria Take 1 capsule by mouth two times a day with meals for 7 days. 14 capsule 09/03/2024 09/10/2024 Active Start: 10-21-2022 End: 10-25-2022 take 1 capsule by mouth in the morning nitrofurantoin, macrocrystal-monohydrate , (Macrobid) 100 MG capsule Take 100 mg by mouth in the morning and 100 mg in the evening. 0 10/21/2022 10/25/2022 Discontinued (Therapy completed) OLANZapine 7.5 mg oral tablet (2 sources) Atypical Antipsychotic take 1 tablet by mouth once daily OLANZapine (ZYPREXA) 7.5 MG tablet Take 7.5 mg by mouth nightly 0 Active omeprazole 40 mg delayed release oral capsule (20 sources) Proton Pump Inhibitor Start: take 1 capsule by mouth once daily omeprazole (PRILOSEC) 40 mg capsule Take 1 capsule by mouth once daily. 30 capsule 1 09/18/2024 Active Start: 09-04-2024 End: 10-10-2024 take 1 capsule by mouth once daily Omeprazole 20 mg capsule,delayed release(DR/EC) Discontinued 20 mg PO DAILY 14 September 04, 2024 12:00am October 10, 2024 11:36pm Start: 03-24-2021 End: 04-12-2021 take 1 capsule by mouth twice daily Omeprazole 40 mg capsule,delayed release(DR/EC) Discontinued 40 mg PO TWICE A DAY 120 0 March 24, 2021 12:00am April 12, 2021 2:22pm Take 40mg by mouth twice a day for eight weeks. ondansetron 4 mg disintegrating oral tablet (20 sources) Serotonin-3 Receptor Antagonist Start: 01-03-2024 End: 07-11-2024 take 1 tablet by mouth once daily ondansetron (ZOFRAN) 8 mg tablet Indications: Projectile vomiting with nausea , Early satiety Take 1 tablet by mouth once daily. 60 tablet 2 05/09/2024 07/11/2024 Discontinued Start: 09-09-2023 End: 03-07-2025 take 1 tablet by mouth every eight hours as needed for nausea ondansetron orally disintegrating (ZOFRAN ODT) 4 mg disintegrating tablet Indications: Nausea and vomiting, unspecified vomiting type Take 1 tablet by mouth every 8 hours as needed for nausea/vomiting. 30 tablet 03/07/2025 Active Start: 07-22-2023 take 1 tablet by taylor th every eight hours as needed for nausea and vomiting ondansetron (Zofran) 4 MG tablet Take 1 tablet (4 mg) by mouth every 8 hours as needed for nausea or vomiting. 20 tablet 1 07/22/2023 Active Start: 06-22-2022 take 1 tablet by taylor th every eight hours as needed for nausea Ondansetron 4 MG Oral Tablet Disintegrating TAKE 1 TABLET Every 8 hours PRN Nausea Quantity: 1 Refills: 0 Ordered: 22-Jun-2022 Albania Nuñez PA-C Start : 22-Jun-2022 Active Start: 06-22-2022 Ondansetron HC l - 4 MG/2ML Injection Solution INJECT 2 ML Intramuscular Quantity: 0 Refills: 0 Ordered: 22-Jun-2022 Albania Nuñez PA-C Start : 22-Jun-2022 Complete Start: 03-04-2022 End: 09-01-2022 ondansetron (Zofran) 4 MG ta blet Take 4 mg by mouth. 0 03/04/2022 09/01/2022 Discontinued (Therapy completed) Start: 01-15-2020 End: 01-15-2020 ondansetron (ZOFRAN) injecti on 4 mg Start: 12-30-2019 take 1 tablet by taylor th three times daily as needed for nausea ondansetron (ZOFRAN) 4 MG tablet Take 1 tablet by mouth 3 times daily as needed for Nausea or Vomiting 4 tablet 0 12/30/2019 Active Start: 07-21-2018 End: 09-25-2019 take 1 tablet by mouth every eight hours as needed for nausea Ondansetron 4 MG tablet Discontinued 4 mg PO EVERY 8 HOURS NEEDED as needed for Nausea July 21, 2018 1:00am September 25, 2019 5:19pm End: 04-03-2023 take 1 tablet by mouth every eight hours as needed ondansetron (ZOFRAN) 8 mg tablet Take 8 mg by mouth every 8 hours as needed for nausea/vomiting. 0 04/03/2023 Discontinued (Course of therapy completed) Comment on above: Take 8 mg by mouth e very 8 hours as needed for nausea/vomiting. OTC PRODUCT (20 sources) OTC PRODUCT Herminia min D drops Active pantoprazole 20 mg delayed release oral tablet (20 sources) Proton Pump Inhibitor Start: 12-31-2024 Pantoprazole 20 mg tablet,delayed release (DR/EC) Active 20 mg PO daily 90 December 31, 2024 12:00am take once daily 30 minutes before first meal Start: 11-23-2023 End: 07-11-2024 take 1 tablet by mouth once daily before breakfast pantoprazole DR (PROTONIX) 20 mg tablet Indications: Projectile vomiting with nausea Take 1 tablet by mouth daily before breakfast. Take on empty stomach, 1/2 hr before meal. 30 tablet 11/23/2023 07/11/2024 Discontinued predniSONE 20 mg oral tablet (15 sources) Start: 04-23-2024 End: 04-28-2024 take 2 tablets by mouth once daily predniSONE (DELTASONE) 20 mg tablet Take 2 tablets by mouth once daily for 5 days. 10 tablet 04/23/2024 04/28/2024 Active Start: 11-12-2023 End: 11-17-2023 take 2 tablets by mouth once daily at mealtime predniSONE (DELTASONE) 20 mg tablet Take 2 tablets by mouth once daily for 5 days. Take daily with food. 10 tablet 11/12/2023 11/17/2023 Start: 04-19-2023 End: 06-08-2023 predniSONE (DELTASONE) 20 mg tablet Take two daily for 5 days. 10 tablet 0 05/01/2023 06/08/2023 Discontinued (Course of therapy completed) Comment on above: Take two daily for 5 days. rimegepant 75 mg disintegrating oral tablet (20 sources) Start: 3 End: 07-26-202 4 take 1 tablet by mouth once daily as needed for headache Rimegepant (Nurtec Odt) 75 mg tablet,disintegrati ng Active 75 mg PO DAILY as needed for migraine headache August 03, 2023 1:00am Comment on above: Take 1 tablet by taylor th once daily as needed. 1000 ml sodium chloride 9 mg/ml injection (2 sources) Start: 0 0.9 % sodium chloride infusion Start: 12-06-2019 End: 12-06-2019 0.45 % sodium chloride infus ion sulfamethoxazole 800 mg / trimethoprim 160 mg oral tablet (12 sources) Dihydrofolate Reductase Inhibitor Antibacterial, Sulfonamide Antimicrobial Start: 06-02-2023 End: 06-07-2023 take 1 tablet by mouth twice daily sulfamethoxazole-trimethoprim (BACTRIM DS) 800-160 mg per tablet Indications: Acute cystitis without hematuria Take 1 tablet by mouth two times a day for 5 days. 10 tablet 0 06/02/2023 06/07/2023 Active Start: 11-26-2019 End: 11-29-2019 Sulfamethoxazole-Trimethopri m 1 TABLET tablet Discontinued 1 {tbl} PO TWICE A DAY 6 3 0 November 26, 2019 12:00am November 28, 2019 12:00am November 29, 2019 12:02am Start: 11-26-2019 End: 11-29-2019 take 1 tablet by mouth twice daily Sulfamethoxazole-Trimethoprim Discontinu ed 1 TABLET PO TWICE A DAY 6 3 November 26, 2019 12:00am November 29, 2019 12:02am take 1 tablet by taylor th twice daily sulfamethoxazole-trimethoprim (BACTRIM) 400-80 mg per tablet Take 1 tablet by mouth two times a day. 0 Active Comment on above: Take 1 tablet by taylor th two times a day for 5 days. Take 1 tablet by taylor th two times a day. SUMAtriptan 100 mg oral tablet (20 sources) Serotonin-1b and Serotonin-1d Receptor Agonist Start: 4 End: 5 take 1 tablet by mouth once daily as needed for headache, then take 9 tablets by mouth every month as needed for headache SUMAtriptan (IMITREX) 100 mg tablet Indications: Intractable chronic migraine without aura and without status migrainosus Take 1 tablet by mouth as needed for migraine headache (see administration instructions) (do not use on more than 2 dyas per week.). May repeat dose after 2 hours if needed. Maximum daily dose is 200 mg per day. No more than 9 doses in a month. 9 tablet 5 12/20/2024 Active Start: 05-24-2023 End: 01-19-2024 take 1 tablet by mouth every two hours as needed for headache SUMAtriptan (IMITREX) 100 mg tablet Take 1 tablet (100 mg) by mouth as needed for migraine headache (see administration instructions). May repeat dose after 2 hours if needed. Maximum daily dose is 200 mg per day. No more than 10 doses in a month. 10 tablet 1 05/24/2023 01/19/2024 Discontinued Start: 04-05-2023 take 1 tablet by taylor th every two hours as needed for headache SUMAtriptan (IMITREX) 100 mg tablet Take 1 tablet (100 mg) by mouth as needed for migraine headache (see administration instructions). May repeat dose after 2 hours if needed. Maximum daily dose is 200 mg per day. No more than 10 doses in a month. 10 tablet 2 04/05/2023 Active Start: 11-14-2022 End: 03-03-2023 SUMAtriptan (Imitrex) 25 MG tablet Indications: Chronic migraine without aura without status migrainosus, not intractable TAKE 1 TABLET (25 MG) BY MOUTH ONCE NEEDED FOR MIGRAINE FOR UP TO 1 DOSE. 9 tablet 2 03/03/2023 Active Start: 09-01-2022 SUMAtriptan (I mitrex) 25 MG tablet Indications: Chronic migraine without aura without status migrainosus, not intractable Take 1 tablet (25 mg) by mouth Once as needed for migraine for up to 1 dose. 9 tablet 2 09/01/2022 Active Start: 03-04-2022 End: 09-01-2022 SUMAtriptan (Imitrex) 25 MG tablet Take 25 mg by mouth. 0 03/04/2022 09/01/2022 Discontinued (Reorder) Start: 08-12-2021 take 1 tablet by taylor th every two hours Sumatriptan Succinate Active 0 PO .COMPLEX August 12, 2021 3:41pm take 1 tab at onset of headache; if no relief may repeat 1 tab after at least 2 hrs; max = 4 tabs/24 hr Start: 04-12-2021 take 25 mg by mouth once Sumat riptan Succinate Active 25 MG PO ONCE April 12, 2021 2:39pm Start: 03-22-2021 End: 04-12-2021 take 1 tablet by mouth every two hours as needed for headache Sumatriptan Succinate 25 mg Tablet Discontinued 25 mg PO Q2H as needed for Migraine Headache March 22, 2021 12:00am April 12, 2021 2:39pm End: 04-05-2023 SUMATRIPTAN SUCCINATE ORAL T bryon by mouth. 0 04/05/2023 Discontinued SUMATRIPTAN SUCC INATE ORAL Take by mouth. 0 Active Comment on above: Take by mouth. Take 1 tablet (100 m g) by mouth as needed for migraine headache (see administration instructions). May repeat dose after 2 hours if needed. Maximum daily dose is 200 mg per day. No more than 10 doses in a month. valACYclovir 500 mg oral tablet (20 sources) Herpesvirus Nucleoside Analog DNA Polymerase Inhibitor, Herpes Simplex Virus Nucleoside Analog DNA Polymerase Inhibitor, Herpes Zoster Virus Nucleoside Analog DNA Polymerase Inhibitor Start: 04-03-20 End: 05-03-20 23 take 1 tablet by mouth once daily valACYclovir (VALTREX) 1 gram Take 1 tablet by mouth once daily. 30 tablet 0 04/03/2023 05/03/2023 Active Start: 09-01-2022 End: 09-04-2022 take 1 tablet by mouth twice daily valACYclovir (Valtrex) 500 MG tablet Indications: Herpes simplex vulvovaginitis Take 1 tablet (500 mg) by mouth 2 times daily for 3 days. 6 tablet 5 09/01/2022 09/04/2022 Active Start: 10-21-2021 End: 07-11-2024 take 1 tablet by mouth once daily valACYclovir (VALTREX) 500 mg tablet Indications: Herpes simplex disease Take 1 tablet by mouth once daily. 90 tablet 1 07/11/2024 Active Comment on above: TAKE 1 TABLET BY TAYLOR TH DAILY Take 1 tablet by taylor th once daily. vitamin b12 0.5 mg oral tablet (20 sources) Vitamin B12 Start: 01-30-2019 take 500 ug by mouth once daily Vitamin B-12 Active 500 MCG PO DAILY 90 January 30, 2019 8:14am Start: 07-21-2018 End: 01-30-2019 take 500 ug by mouth once daily Vitamin B-12 Discontin ued 500 MCG PO DAILY July 21, 2018 5:24pm January 30, 2019 8:15am Start: 07-21-2018 End: 01-30-2019 take 500 ug by mouth once daily Vitamin B-12 Discontin ued 500 ug PO DAILY July 21, 2018 1:00am January 30, 2019 8:15am supplement Start: 07-21-2018 End: 01-30-2019 take 500 ug by mouth once daily Vitamin B-12 Discontin ued 500 ug PO DAILY July 21, 2018 1:00am January 30, 2019 8:15am Start: 07-21-2018 End: 01-30-2019 take 500 ug by mouth once daily Vitamin B-12 Discontin ued 500 MCG PO DAILY July 21, 2018 1:00am January 30, 2019 8:15am Start: 07-21-2018 End: 01-30-2019 take 500 ug by mouth once daily Vitamin B-12 Discontin ued 500 MCG PO DAILY July 21, 2018 12:00am January 30, 2019 7:15am Start: 07-04-2018 End: 09-01-2022 take 1 tablet by mouth once daily VITAMIN B-12 500 mcg tab tab(s) Take 1 tablet by mouth once daily. 07/04/2018 Active Comment on above: Take 1 tablet by [facility] once daily. zinc sulfate 220 mg oral capsule (20 sources) Start: 09-12-2023 End: 10-03-2023 take 1 capsule by mouth once daily zinc sulfate 220 mg (50 mg zinc) capsule Indications: Anxiety Take 1 capsule by mouth once daily for 21 days. 21 capsule 09/12/2023 Active Comment on above: Take 1 capsule by mo [facility] once daily for 21 days. Completed/Discontinued Medications Medication Drug Class(es) Dates Sig (Normalized) Sig (Original) acetaminophen 325 mg oral tablet (4 sources) End: 09-01-2022 take 2 tablets by mouth every six hours as needed acetaminophen (Tylenol) 325 MG tablet Take 650 mg by mouth every 6 hours as needed. 0 09/01/2022 Discontinued (Patient refused) Albuterol Sulfate (20 sources) beta2-Adrenergic Agonist Start: 10-13-2013 End: 09-25-2019 Albuterol Sulfate Discontinued 6.7 GM IH NEEDED October 13, 2013 6:43pm September 25, 2019 5:17pm Start: 10-13-2013 End: 09-25-2019 Albuterol Sulfate 6.7 GM HFA aerosol inhaler Discontinued 6.7 g IH NEEDED as needed for Shortness Of Breath October 13, 2013 12:00am September 25, 2019 5:17pm Start: 10-13-2013 End: 09-25-2019 Albuterol Sulfate Discontinu ed 6.7 GM IH NEEDED October 13, 2013 12:00am September 25, 2019 5:17pm Start: 10-13-2013 End: 09-25-2019 Albuterol Sulfate Discontinu ed 6.7 GM IH NEEDED October 12, 2013 11:00pm September 25, 2019 4:17pm End: 04-20-2023 take 2 puff(s) by inhalation every six hours as needed ALBUTEROL SULFATE HFA INHALATION Inhale 2 Puffs as instructed every 6 hours as needed. uses PRN for asthma. Pt. unsure of dose 0 04/20/2023 Discontinued (Course of therapy completed) End: 09-01-2022 take 2 puff(s) by inhalation every six hours as needed ALBUTEROL SULFATE HFA IN Inhale 2 puffs every 6 hours as needed. 0 09/01/2022 Discontinued (Patient refused) take 2 puff(s) by in halation every six hours as needed ALBUTEROL SULFATE HFA INHALATION Inhale 2 Puffs as instructed every 6 hours as needed. uses PRN for asthma. Pt. unsure of dose 0 Active Comment on above: Inhale 2 Puffs as in structed every 6 hours as needed. uses PRN for asthma. Pt. unsure of dose albuterol 0.833 mg/ml / ipratropium bromide 0.167 mg/ml inhalation solution (2 sources) Anticholinergic, beta2-Adrenergic Agonist Start: 11-12-19 24 End: 11-12-19 24 ipratropium-albutero l 3 mL nebulizer solution (DUONEB) amitriptyline hydrochloride 10 mg oral tablet (20 sources) Tricyclic Antidepressant Start: 03-03-20 23 End: 01-01-20 take 1 tablet by mouth at bedtime Amitriptyline 10 mg tablet Discontinued 10 mg PO AT BEDTIME August 03, 2023 1:00am December 31, 2024 10:18am Comment on above: Take 10 mg by mouth daily at bedtime. ARIPiprazole 10 mg oral tablet (20 sources) Atypical Antipsychotic Start: 11-27-19 End: 01-01-20 take 1 tablet by mouth once daily Aripiprazole 10 mg tablet Discontinued 10 mg PO DAILY 30 October 27, 2021 11:40am December 31, 2024 10:18am MOOD Start: 09-27-2018 End: 04-03-2023 take 1 tablet by mouth once daily Aripiprazole (Abilify) 5 mg tablet Discontinued 5 mg PO DAILY 30 October 26, 2018 2:33pm November 26, 2018 3:15pm Comment on above: Take 5 mg by mouth o nce daily. aspirin 81 mg delayed release oral tablet (10 sources) Platelet Aggregation Inhibitor, Nonsteroidal Anti-inflammatory Drug Start: 07-21-19 End: 07-10-19 take 1 tablet by mouth once daily Aspirin 81 MG tablet,delayed release (DR/EC) Discontinued 81 mg PO DAILY July 21, 2018 1:00am July 10, 2019 5:57pm benzonatate 100 mg oral capsule (12 sources) Non-narcotic Antitussive Start: 04-23-20 24 End: 07-11-19 take 2 capsules by mouth every eight hours as needed benzonatate (TESSALON PERLES) 100 mg capsule Take 2 capsules by mouth three times a day as needed. 30 capsule 04/23/2024 07/11/2024 Discontinued bisacodyl 5 mg delayed release oral tablet (10 sources) Stimulant Laxative Start: 03-11-20 End: 04-12-20 Bisacodyl 5 mg tablet,delayed release (DR/EC) Discontinued 5 mg PO ONCE 4 0 March 11, 2021 12:00am April 12, 2021 2:21pm take four tabs 30 minutes prior to prep for colonoscopy budesonide/formotero l fumarate (SYMBICORT INHALATION) (8 sources) End: 04-20-20 23 budesonide/formotero l fumarate (SYMBICORT INHALATION) Inhale as instructed. 0 04/20/2023 Discontinued (Changing Therapy/Dosage Form) budesonide/formo terol fumarate (SYMBICORT INHALATION) Inhale as instructed. 0 Active Comment on above: Inhale as instructed . buprenorphine 8 mg sublingual tablet (10 sources) Partial Opioid Agonist Start: 07-21-19 End: 10-16-19 take 0.5 tablet by mouth every six hours Buprenorphine Hcl 8 MG tablet, sublingual Discontinued 4 mg PO EVERY 6 HOURS July 21, 2018 1:00am October 15, 2018 3:58pm addiction Dr. Giraldo ordered to take 1/2 tab every 6 hours, pt has own supply. Start: 07-21-2018 End: 10-15-2018 take 0.5 tablet by mouth every six hours Buprenorphine Hcl Discontinued 4 MG PO EVERY 6 HOURS July 21, 2018 1:00am October 15, 2018 3:58pm Dr. Giraldo ordered to take 1/2 tab every 6 hours, pt has own supply. calcium carbonate 500 mg oral tablet (11 sources) End: 04-20-2023 calcium carbonate (TUMS 500 ORAL) Take 500 mg by mouth as needed (upset stomach). 0 04/20/2023 Discontinued (Course of therapy completed) Comment on above: Take 500 mg by mouth as needed (upset stomach). calcium carbonate (Tums) 250 mg ([place] 100 mg) chewable split tablet (2 sources) End: 09-01-2022 calcium carbonate (Tums) 250 mg ([place] 100 mg) chewable split tablet Take 500 mg by mouth. 0 09/01/2022 Discontinued (Therapy completed) cariprazine 1.5 mg oral capsule (3 sources) Atypical Antipsychotic Start: 10-03-2024 End: 12-20-2024 take 1 capsule by mouth every other day VRAYLAR 1.5 mg capsule Take 1 capsule by mouth every other day. 10/03/2024 12/20/2024 Discontinued cholecalciferol 0.025 mg oral capsule (20 sources) Vitamin D Start: 09-15-2023 End: 07-11-2024 take 2 capsules by mouth once daily Cholecalciferol, Vitamin D3, (VITAMIN D) 25 mcg (1,000 unit) cap Indications: Vitamin D deficiency Take 2 capsules by mouth once daily. 60 capsule 2 09/15/2023 07/11/2024 Discontinued Start: 02-11-2020 End: 12-20-2024 take 1 capsule by mouth once daily VITAMIN D-3 50 mcg (2,000 unit) cap Take 1 capsule by mouth once daily. 02/11/2020 12/20/2024 Discontinued Start: 02-11-2020 End: 09-01-2022 take 1 capsule by mouth once daily cholecalciferol (Vitamin D-3) 50 MCG (2000 UT) capsule Indications: Annual physical exam Take 1 capsule (50 mcg) by mouth daily. 30 capsule 11 09/01/2022 Active Start: 09-28-2018 End: 06-07-2019 take 1 capsule by mouth once daily Cholecalciferol (Vitamin D3) 2,000 unit capsule Discontinued 2000 U PO DAILY 90 2 September 28, 2018 12:00am June 07, 2019 2:19pm Comment on above: Take 1 capsule by [facility] once daily. ciprofloxacin 250 mg oral tablet (20 sources) Quinolone Antimicrobial Start: 01-16-20 End: 10-11-19 take 1 tablet by mouth twice daily Ciprofloxacin Hcl (Cipro) 250 mg tablet Discontinued 250 mg PO TWICE A DAY 20 January 16, 2024 12:00am October 10, 2024 11:36pm Start: 09-09-2023 End: 10-10-2024 take 1 tablet by mouth twice daily Ciprofloxacin Hcl 500 mg tablet Discontinued 500 mg PO TWICE A DAY 14 September 09, 2023 12:00am October 10, 2024 11:36pm Start: 11-10-2020 End: 01-29-2021 take 1 tablet by mouth every twelve hours Ciprofloxacin Hcl (Cipro) 500 mg tablet Discontinued 500 mg PO Q12H 20 0 November 10, 2020 12:00am January 29, 2021 10:16am cyclobenzaprine hydrochloride 10 mg oral tablet (10 sources) Muscle Relaxant Start: 06-16-2015 End: 06-16-2015 take 1 tablet by mouth three times daily as needed for muscle spasms Cyclobenzaprine 10 MG tablet Discontinued 10 mg PO 3 TIMES DAILY NEEDED as needed for Muscle Spasm June 16, 2015 1:00am June 16, 2015 3:51pm dicyclomine hydrochloride 20 mg oral tablet (8 sources) Anticholinergic End: 04-03-2023 take 1 tablet by mouth every six hours as needed dicyclomine (BENTYL) 20 mg tablet Take 20 mg by mouth every 6 hours as needed (abd pain). 0 04/03/2023 Discontinued (Course of therapy completed) Comment on above: Take 20 mg by mouth every 6 hours as needed (abd pain). diphenhydrAMINE hydrochloride 25 mg oral capsule (10 sources) Histamine-1 Receptor Antagonist Start: 07-21-2018 End: 10-15-2018 take 2 capsules by mouth at bedtime Diphenhydramine Hcl 25 MG capsule Discontinued 50 mg PO AT BEDTIME July 21, 2018 1:00am October 15, 2018 3:58pm Start: 07-21-2018 End: 10-15-2018 take 50 mg by mouth at bedtime Diphenhydramine Hcl Dis continued 50 MG PO AT BEDTIME July 21, 2018 1:00am October 15, 2018 3:58pm doxycycline hyclate 100 mg oral tablet (3 sources) Tetracycline-class Drug Start: 11-12-2023 End: 2023 take 1 tablet by mouth twice daily doxycycline (VIBRA-TABS) 100 mg tablet Take 1 tablet by mouth two times a day for 7 days. 14 tablet 11/12/2023 2023 1 ml erenumab-aooe 70 mg/ml auto-injector (16 sources) Start: 01-19-2024 End: 05-10-2024 inject 1 mL by subcutaneous injection every month erenumab-aooe (AIMOVIG AUTOINJECTOR) 70 mg/mL auto-injector Indications: Intractable chronic migraine without aura and without status migrainosus Inject 1 mL subcutaneously once every month. Do not shake. 1 mL 11 05/09/2024 05/10/2024 Discontinued Norgestimate-Et hinyl Estradiol (20 sources) Progestin, Estrogen Start: 06-16-2015 End: 09-25-2019 Norgestimate-Ethin yl Estradiol 1 EACH tablet Discontinued 1 NMA PO DAILY 1 June 16, 2015 3:50pm September 25, 2019 5:19pm Start: 06-16-2015 End: 09-25-2019 Norgestimate-Ethinyl Estradi ol 1 EACH tablet Discontinued 1 NMA PO DAILY June 16, 2015 3:50pm September 25, 2019 5:19pm Start: 06-16-2015 End: 09-25-2019 Norgestimate-Ethinyl Estradi ol Discontinued 1 EACH PO DAILY June 16, 2015 2:50pm September 25, 2019 4:19pm Start: 06-16-2015 End: 09-25-2019 Norgestimate-Ethinyl Estradi ol Discontinued 1 EACH PO DAILY 1 June 16, 2015 3:50pm September 25, 2019 5:19pm Start: 10-13-2013 End: 06-16-2015 take 1 tablet by mouth once daily Norgestimate-Ethinyl Estradiol (Sprintec) 1 EACH tablet Discontinued 1 EACH PO DAILY October 13, 2013 6:43pm June 16, 2015 3:51pm Start: 10-13-2013 End: 06-16-2015 take 1 tablet by mouth once daily Norgestimate-Ethinyl Estradiol (Sprintec) 1 EACH tablet Discontinued 1 NMA PO DAILY October 13, 2013 12:00am June 16, 2015 3:51pm Start: 10-13-2013 End: 06-16-2015 take 1 tablet by mouth once daily Norgestimate-Ethinyl Estradiol (Sprintec) 1 EACH tablet Discontinued 1 EACH PO DAILY October 13, 2013 12:00am June 16, 2015 3:51pm Start: 10-13-2013 End: 06-16-2015 take 1 tablet by mouth once daily Norgestimate-Ethinyl Estradiol (Sprintec) 1 EACH tablet Discontinued 1 EACH PO DAILY October 12, 2013 11:00pm June 16, 2015 2:51pm ferrous sulfate 325 mg oral tablet (10 sources) Start: 07-21-2018 End: 09-25-2019 take 325 mg by mouth three times daily Ferrous Sulfate Discontinued 325 mg PO THREE TIMES A DAY July 21, 2018 1:00am September 25, 2019 5:18pm anemia 60 actuat fluticasone propionate 0.5 mg/actuat / salmeterol 0.05 mg/actuat dry powder inhaler (20 sources) Corticosteroid, beta2-Adrenergi c Agonist Start: 05-01-2023 End: 12-20-2024 take 1 puff(s) by mouth twice daily ADVAIR DISKUS 500-50 mcg/dose dsdv Inhale 1 Puff as instructed two times a day. RINSE AND GARGLE MOUTH WITH WATER AFTER EACH USE. 1 Each 5 05/09/2024 12/20/2024 Discontinued Start: 04-20-2023 take 1 puff(s) by mo [facility] twice daily fluticasone-salmeterol (ADVAIR DISKUS) 500-50 mcg/dose dsdv Inhale 1 Puff as instructed two times a day. RINSE AND GARGLE MOUTH WITH WATER AFTER EACH USE. 1 Each 5 04/20/2023 Active Comment on above: Inhale 1 Puff as ins tructed two times a day. RINSE AND GARGLE MOUTH WITH WATER AFTER EACH USE. 30 actuat fluticasone furoate 0.2 mg/actuat / vilanterol 0.025 mg/actuat dry powder inhaler (3 sources) Corticosteroid, beta2-Adrenergic Agonist Start: 04-19-20 End: 04-20-20 take 1 dose by inhalation once daily fluticasone-vilantero l (BREO ELLIPTA) 200-25 mcg/dose inhaler Indications: Severe persistent asthma without complication Inhale 1 Inhalation as instructed once daily. 1 Each 04/19/2023 04/20/2023 Discontinued (Changing Therapy/Dosage Form) Comment on above: Inhale 1 Inhalation as instructed once daily. 1.5 ml fremanezumab-vfrm 150 mg/ml auto-injector (16 sources) Start: 04-04-20 End: 07-11-19 inject 1.5 mL by subcutaneous injection every month fremanezumab-vfrm (AJOVY AUTOINJECTOR) 225 mg/1.5 mL auto-injector Indications: Intractable chronic migraine without aura and without status migrainosus Inject 1.5 mL subcutaneously once every month. Do not shake. 1.5 mL 5 05/10/2024 07/11/2024 Discontinued 4 ml furosemide 10 mg/ml injection (1 source) Loop Diuretic Start: 12-06-19 End: 12-06-19 furosemide (LASIX) injection 40 mg gabapentin 100 mg oral capsule (20 sources) Anti-epileptic Agent Start: 09-16-19 24 End: 01-24-20 take 1 capsule by mouth three times daily gabapentin (NEURONTIN) 100 mg capsule Take 1 capsule by mouth three times a day for 12 doses. Do not start before September 16, 2023. 12 capsule 09/16/2023 01/23/2025 Discontinued (Other) Start: 09-12-2023 End: 07-11-2024 take 2 capsules by mouth once gabapentin (NEURONTIN) 1 00 mg capsule Take 2 capsules by mouth one time only for 1 dose. 2 capsule 09/12/2023 07/11/2024 Discontinued Start: 09-12-2023 End: 01-19-2024 take 2 capsules by mouth three times daily gabapentin (NEURONTIN) 100 mg capsule Take 2 capsules by mouth three times a day for 10 doses. 20 capsule 09/12/2023 01/19/2024 Discontinued Comment on above: Take 2 capsules by m outh three times a day for 10 doses. Take 1 capsule by mo uth three times a day for 12 doses. Do not start before September 16, 2023. Take 2 capsules by m outh one time only for 1 dose. haloperidol 5 mg oral tablet (10 sources) Typical Antipsychotic Start: 07-21-19 End: 09-28-19 take 1 tablet by mouth once daily Haloperidol 5 MG tablet Discontinued 5 mg PO DAILY July 21, 2018 1:00am September 27, 2018 11:51am bipolar 2 ml ketorolac tromethamine 30 mg/ml cartridge (1 source) Nonsteroidal Anti-inflammatory Drug, Cyclooxygenase Inhibitor Start: 06-22-20 Ketorolac Tromethamine 60 MG/2ML Intramuscular Solution INJECT 2 ML Intramuscular Quantity: 0 Refills: 0 Ordered: 22-Jun-2022 [place] Nuñez PA-C Start : 22-Jun-2022 Complete losartan potassium 25 mg oral tablet (20 sources) Angiotensin 2 Receptor Nils Start: 10-25-19 End: 01-01-20 take 1 tablet by mouth once daily Losartan 25 mg Tablet Discontinued 25 mg PO DAILY 0 0 October 24, 2021 12:00am December 31, 2024 10:19am Start: 03-18-2021 take 25 mg by mouth once daily Losartan Active 25 MG PO DAILY March 18, 2021 2:46pm Comment on above: Take 1 tablet by taylor once daily. lurasidone hydrochloride 60 mg oral tablet (9 sources) Atypical Antipsychotic End: take 1 tablet by mouth once daily at dinner lurasidone (LATUDA) 60 mg tab tablet Take 60 mg by mouth daily with dinner. 01/19/2024 Discontinued Comment on above: Take 60 mg by mouth daily with dinner. magnesium hydroxide 80 mg/ml oral suspension (10 sources) Start: End: 04-04-2 019 take 1 mL by mouth once daily as needed for constipation Magnesium Hydroxide 30 ML suspension Discontinued 30 mL PO DAILY NEEDED as needed for Constipation July 21, 2018 1:00am September 27, 2018 11:10am Start: 07-21-2018 End: 09-27-2018 take 1 mL by mouth once daily as needed Magnesium Hydroxide Discontinued 30 ML PO DAILY NEEDED July 21, 2018 1:00am September 27, 2018 11:10am melatonin 3 mg oral tablet (20 sources) Start: 09-12-2023 End: 07-11-2024 take 1 tablet by mouth once daily at bedtime melatonin 3 mg tablet Take 1 tablet by mouth daily at bedtime. 30 tablet 09/12/2023 07/11/2024 Discontinued Comment on above: Take 1 tablet by taylor th daily at bedtime. metoclopramide 5 mg oral tablet (20 sources) Dopamine-2 Receptor Antagonist Start: 01-03-2024 End: 07-11-2024 take 1 tablet by mouth four times daily metoclopramide HCl (REGLAN) 5 mg tablet Indications: Projectile vomiting with nausea , Early satiety Take 1 tablet by mouth four times daily. 120 tablet 1 05/09/2024 07/11/2024 Discontinued Start: 12-27-2023 End: 12-31-2024 take 1 tablet by mouth every six hours as needed for nausea and vomiting Metoclopramide Hcl (Reglan) 10 mg tablet Discontinued 10 mg PO EVERY 6 HOURS as needed for nausea and vomiting 14 0 December 27, 2023 12:00am December 31, 2024 10:19am Start: 09-27-2018 End: 11-26-2018 take 1 tablet by mouth once daily as needed for nausea Metoclopramide Hcl 5 mg tablet Discontinued 5 mg PO DAILY as needed for Nausea 20 0 September 27, 2018 11:51am November 26, 2018 3:15pm Start: 08-01-2018 End: 09-27-2018 Metoclopramide Hcl 10 MG tab let Discontinued 10 mg PO NEEDED as needed for Nausea August 01, 2018 1:00am September 27, 2018 11:55am miconazole nitrate 20 mg/ml vaginal cream (20 sources) Azole Antifungal Start: 06-16-2023 End: 08-14-2024 miconazole (MONISTAT 7) 2 % vaginal cream Use 1 Applicator vaginally daily at bedtime. 45 g 2 06/16/2023 08/14/2024 Discontinued Comment on above: Use 1 Applicator vag inally daily at bedtime. montelukast 10 mg oral tablet (20 sources) Leukotriene Receptor Antagonist Start: 05-01-2023 End: 12-20-2024 take 1 tablet by mouth at bedtime Montelukast 10 mg tablet Discontinued 10 mg PO AT BEDTIME August 03, 2023 1:00am October 10, 2024 11:36pm Start: 04-20-2023 take 1 tablet by taylor th once daily at bedtime montelukast (SINGULAIR) 10 mg tablet Take 1 tablet by mouth daily at bedtime. 30 tablet 5 04/20/2023 Active Comment on above: Take 1 tablet by taylor th daily at bedtime. petrolatum 0.935 mg/mg topical ointment (20 sources) Start: 06-16-20 End: 07-11-19 vitamin A and D ointment Apply to affected area as needed. 113 g 2 06/16/2023 07/11/2024 Discontinued Comment on above: Apply to affected ar ea as needed. phenazopyridine hydrochloride 200 mg oral tablet (10 sources) Start: 11-26-19 End: 12-03-19 take 1 tablet by mouth three times daily as needed for muscle spasms Phenazopyridine 200 MG tablet Discontinued 200 mg PO 3 TIMES DAILY NEEDED as needed for Bladder Spasms 30 7 0 November 26, 2019 12:00am December 02, 2019 12:00am December 03, 2019 12:02am polyethylene glycol 3350 [id number] mg / potassium chloride 2970 mg / sodium bicarbonate 6740 mg / sodium chloride 5860 mg / sodium sulfate 11325 mg powder for oral solution (10 sources) Osmotic Laxative Start: 03-11-20 End: 04-12-20 Peg 3350-Electrolytes (Golytely) 236-22.74-6.74 -5.86 gram recon soln Discontinued 240 mL PO Q10M 4000 0 March 11, 2021 12:00am April 12, 2021 2:22pm until fecal effluent is clear Start: 03-11-2021 End: 04-12-2021 Peg 3350-Electrolytes (Golyt lilli) 236-22.74-6.74 -5.86 gram recon soln Discontinued 240 ML PO Q10M 4000 March 11, 2021 12:00am April 12, 2021 2:22pm until fecal effluent is clear prazosin 1 mg oral capsule (8 sources) alpha-Adrenergic Nils Start: 06-28-2024 End: 09-03-2024 take 1 capsule by mouth every twenty-four hours as needed prazosin (MINIPRESS) 1 mg cap Take 1 mg by mouth at bedtime as needed. 06/28/2024 09/03/2024 Discontinued (Course of therapy completed) Start: 06-28-2024 End: 09-03-2024 prazosin (MINIPRESS) 2 mg ca p 2 mg. 06/28/2024 09/03/2024 Discontinued (Course of therapy completed) Vit No.289-Vwnf-Lho ic (4 sources) Start: 07-21-2018 End: 09-27-2018 Vit No.364-Kixd-Wmh ic Discontinued 1 EACH PO DAILY July 21, 2018 5:24pm September 27, 2018 11:11am Start: 07-21-2018 End: 09-27-2018 Vit No.752-Eeae-Jmg ic Discontinued 1 EACH PO DAILY July 21, 2018 1:00am September 27, 2018 11:11am Start: 07-21-2018 End: 09-27-2018 Vit No.009-Rwrd-Yja ic Discontinued 1 EACH PO DAILY July 21, 2018 12:00am September 27, 2018 10:11am Vit No.910-Ider-Zabjp 1 EACH tablet (6 sources) Start: 07-21-2018 End: 09-27-2018 take 1 tablet by mouth once daily Vit No.652-Wibs-Acquk 1 EACH tablet Discontinued 1 NMA PO DAILY July 21, 2018 1:00am September 27, 2018 11:11am Start: 07-21-2018 End: 09-27-2018 take 1 tablet by mouth once daily Vit No.649-Vmnj-Jpnvc 1 EACH tablet Discontinued 1 NMA PO DAILY July 21, 2018 1:00am September 27, 2018 11:11am risperiDONE 0.5 mg oral tablet (4 sources) Atypical Antipsychotic Start: 06-10-2024 End: 09-03-2024 take 2 tablets by mouth once daily risperiDONE (RISPERDAL) 0.5 mg tablet Take 1 mg by mouth once daily. 06/10/2024 09/03/2024 Discontinued (Course of therapy completed) sertraline 25 mg oral tablet (20 sources) Serotonin Reuptake Inhibitor Start: 07-21-2018 End: 04-03-2023 take 1 tablet by mouth once daily Sertraline 25 mg tablet Discontinued 25 mg PO DAILY 90 3 September 18, 2020 8:41am August 26, 2021 12:48pm depression Comment on above: Take 1 tablet by taylor th once daily. traZODone hydrochloride 50 mg oral tablet (20 sources) Serotonin Reuptake Inhibitor Start: 09-12-2023 End: 07-11-2024 take 0.5 tablet by mouth at bedtime as needed traZODone (DESYREL) 50 mg tablet Take 0.5 tablets by mouth at bedtime as needed. 30 tablet 09/12/2023 07/11/2024 Discontinued End: 04-03-2023 take 1 tablet by mouth once daily at bedtime traZODone (DESYREL) 100 mg tablet Take 100 mg by mouth daily at bedtime. 0 04/03/2023 Discontinued (Course of therapy completed) Comment on above: Take 100 mg by mouth daily at bedtime. Take 0.5 tablets by mouth at bedtime as needed. triamcinolone acetonide 0.001 mg/mg topical ointment (20 sources) Corticosteroid Start: 06-16-20 23 End: 07-11-19 25 triamcinolone acetonide (KENALOG) 0.1 % ointment Apply to affected area two times a day. For 10-14 days 30 g 2 06/16/2023 07/11/2024 Discontinued Comment on above: Apply to affected ar ea two times a day. For 10-14 days divalproex sodium 500 mg delayed release oral tablet (9 sources) Mood Stabilizer, Anti-epileptic Agent End: 01-19-20 24 take 1 tablet by mouth twice daily divalproex DR (DEPAKOTE) 500 mg EC tablet Take 500 mg by mouth two times a day. 01/19/2024 Discontinued Comment on above: Take 500 mg by mouth two times a day. Problems Active Problems Problem Classification Problem Date Documented Da te Episodic/Chronic Anxiety disorders (20 sources) Posttraumatic stress disorder; Translations: [Post-traumatic stress disorder, unspecified] Onset: 2 Resolved: 4 04-07-2022 Chronic Asthma (20 sources) Asthma; Translations: [Unspecified asthma, uncomplicated] Onset: 3 Chronic Attention-deficit, conduct, and disruptive behavior disorders (20 sources) Attention deficit hyperactivity disorder; Translations: [Attention-deficit hyperactivity disorder, unspecified type] Onset: 2 04-07-2022 Chronic Biliary tract disease (1 source) Biliary sludge 01-26-2025 Chronic Biliary tract disease (13 sources) Acute cholecystitis; Translations: [Gallbladder pain] Onset: 5 07-20-2015 Episodic Cardiac dysrhythmias (10 sources) Tachycardia; Translations: [Tachycardia, unspecified] 04-12-2021 Episodic Chronic kidney disease (20 sources) Chronic kidney disease; Translations: [Chronic kidney disease stage 3] Onset: 6 04-30-2016 Chronic Chronic kidney disease (6 sources) Chronic kidney disease; Translations: [Chronic kidney disease, stage 3b (HCC)] Onset: 2 Chronic obstructive pulmonary disease and bronchiectasis (1 source) Bronchitis; Translations: [Bronchitis, not specified as acute or chronic] 04-23-2024 Episodic Contraceptive and procreative management (9 sources) Patient encounter status; Translations: [Encounter for surveillance of implantable subdermal contraceptive] 04-03-2023 Episodic Deficiency and other anemia (1 source) Anemia, unspecified; Translations: [Anemia, unspecified] Onset: 8 Episodic Deficiency and other anemia (10 sources) Anemia; Translations: [Anemia, unspecified] 11-12-2018 Episodic Early or threatened labor (2 sources) Threatened premature labor - not delivered ; Translations: [Threatened labor] 12-10-2015 Episodic Essential hypertension (8 sources) Malignant hypertension; Translations: [Essential (primary) hypertension] 08-03-2023 Chronic Fluid and electrolyte disorders (16 sources) Dehydration; Translations: [Hypokalemia] Onset: 8 Episodic Gastrointestinal hemorrhage (20 sources) Blood-tinged feces; Translations: [Melena] Onset: 0 Resolved: 3 09-01-2022 Episodic Gastrointestinal hemorrhage (1 source) Blood-tinged feces; Translations: [Hematochezia] 01-15-2020 Genitourinary congenital anomalies (20 sources) Renal agenesis; Translations: [Renal agenesis, unilateral] Onset: 2 07-31-2018 Chronic Genitourinary symptoms and ill-defined conditions (7 sources) Increased frequency of urination; Translations: [Frequency of micturition] Onset: 5 11-22-2024 Episodic Headache; including migraine (20 sources) Migraine; Translations: [Migraine, unspecified, not intractable, without status migrainosus] Onset: 2 04-07-2022 Chronic Headache; including migraine (12 sources) Chronic headache disorder; Translations: [Chronic headache] 11-12-2018 Episodic Hemorrhoids (1 source) Internal hemorrhoids grade I; Translations: [First degree hemorrhoids] 01-15-2020 Hepatitis (20 sources) Chronic hepatitis C; Translations: [Chronic viral hepatitis C] Onset: 9 07-31-2018 Chronic Hepatitis (10 sources) Viral hepatitis C; Translations: [Unspecified viral hepatitis C without hepatic coma] 05-27-2021 Episodic Hodgkin`s disease (20 sources) Hodgkin's disease (clinical); Translations: [Hodgkin lymphoma, unspecified, unspecified site] Onset: 1 07-16-2015 Chronic Hodgkin`s disease (20 sources) History of Hodgkin lymphoma; Translations: [Personal history of Hodgkin lymphoma] Onset: 3 Episodic Immunizations and screening for infectious disease (20 sources) Encounter for screening for other viral diseases; Translations: [Encounter for screening for human immunodeficiency virus [HIV]] Onset: 8 06-12-2020 Episodic Menstrual disorders (10 sources) Menometrorrhagia; Translations: [Excessive and frequent menstruation with irregular cycle] 10-18-2021 Chronic Mood disorders (20 sources) Bipolar I disorder; Translations: [Bipolar disorder, unspecified] Onset: 2 02-19-2014 Chronic Nausea and vomiting (20 sources) Nausea; Translations: [Vomiting] Onset: 4 Resolved: 3 01-15-2020 Episodic Non-Hodgkin`s lymphoma (20 sources) History of malignant lymphoma; Translations: [Personal history of other malignant neoplasms of lymphoid, hematopoietic and related tissues] Onset: 5 Episodic Nutritional deficiencies (20 sources) Vitamin D deficiency; Translations: [Vitamin D deficiency, unspecified] Onset: 2 Chronic Other and unspecified benign neoplasm (1 source) Benign neoplasm of transverse colon; Translations: [Benign neoplasm of transverse colon] 01-15-2020 Episodic Other complications of ; puerperium affecting management of mother (10 sources) ; Translations: [Maternal care for intrauterine , not applicable or unspecified] 10-18-2021 Episodic Other complications of (2 sources) Short cervical length in ; Translations: [Cervical shortening, antepartum condition or complication] 12-10-2015 Episodic Other congenital anomalies (20 sources) VATER association; 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] Onset: 4 09-10-2023 Chronic Other connective tissue disease (10 sources) Pain in left arm; Translations: [Pain in left arm] 05-08-2021 Episodic Other diseases of kidney and ureters (2 sources) Cyst of kidney, acquired; Translations: [Cyst of kidney, acquired] Onset: 4 Episodic Other diseases of kidney and ureters (1 source) Kidney disease; Translations: [Disorder of kidney and ureter, unspecified] 11-22-2024 Episodic Other diseases of kidney and ureters (1 source) Other hydronephrosis; Translations: [Other hydronephrosis] Onset: 5 Episodic Other diseases of kidney and ureters (4 sources) Unspecified hydronephrosis; Translations: [Hydronephrosis, unspecified hydronephrosis type] Onset: 5 Episodic Other ear and sense organ disorders (20 sources) Deafness of left ear; Translations: [Unspecified hearing loss, left ear] Onset: 2 04-07-2022 Chronic Other ear and sense organ disorders (20 sources) Decreased hearing ; Translations: [Unspecified hearing loss, unspecified ear] 06-21-2021 Chronic Other gastrointestinal disorders (10 sources) Irritable bowel syndrome with diarrhea; Translations: [Irritable bowel syndrome with diarrhea] 05-27-2021 Chronic Other gastrointestinal disorders (10 sources) Irritable bowel syndrome; Translations: [Irritable bowel syndrome without diarrhea] 04-12-2021 Chronic Other gastrointestinal disorders (1 source) Digestive symptom; Translations: [Other specified symptoms and signs involving the digestive system and abdomen] 01-15-2020 Episodic Other gastrointestinal disorders (1 source) Constipation alternates with diarrhea; Translations: [Other specified symptoms and signs involving the digestive system and abdomen] 01-03-2024 Episodic Other lower respiratory disease (3 sources) Interstitial lung disease; Translations: [Interstitial pulmonary disease, unspecified] 04-19-2023 Chronic Other lower respiratory disease (2 sources) Cough; Translations: [Acute cough] 11-12-2023 Episodic Other lower respiratory disease (2 sources) Wheezing; Translations: [Wheezing] 04-23-2024 Episodic Other nervous system disorders (20 sources) Idiopathic peripheral neuropathy; Translations: [Hereditary and idiopathic neuropathy, unspecified] Onset: 6 07-16-2015 Chronic Other nervous system disorders (2 sources) Hereditary and idiopathic neuropathy, unspecified; Translations: [Hereditary and idiopathic neuropathy, unspecified] Onset: 2 Chronic Other nutritional; endocrine; and metabolic disorders (20 sources) Abnormal weight loss; Translations: [Abnormal weight loss] Onset: 0 Resolved: 3 01-15-2020 Episodic Other nutritional; endocrine; and metabolic disorders (8 sources) Unintentional weight loss; Translations: [Abnormal weight loss] 12-22-2024 Episodic Other nutritional; endocrine; and metabolic disorders (6 sources) Weight decreased; Translations: [Abnormal weight loss] 12-31-2024 Episodic Other nutritional; endocrine; and metabolic disorders (4 sources) Abnormal weight loss; Translations: [Unintentional weight loss of more than 10 pounds in 90 days] Onset: 5 Episodic Other screening for suspected conditions (not mental disorders or infectious disease) (19 sources) Abnormal findings on diagnostic imaging of other abdominal regions, including retroperitoneum; Translations: [Cancer cervix screening status] Onset: 4 Episodic Other skin disorders (3 sources) Eruption; Translations: [Rash and other nonspecific skin eruption] Episodic Other skin disorders (1 source) Cyst of skin; Translations: [Follicular cyst of the skin and subcutaneous tissue, unspecified] 08-14-2024 Episodic Other upper respiratory disease (10 sources) Seasonal allergy; Translations: [Other seasonal allergic rhinitis] 11-12-2018 Chronic Other upper respiratory disease (1 source) Allergic rhinitis due to animal hair and dander; Translations: [Allergic rhinitis due to animal (cat) (dog) hair and dander] 02-21-2025 Chronic Pancreatic disorders (not diabetes) (10 sources) Pancreatitis; Translations: [Acute pancreatitis without necrosis or infection, unspecified] 10-18-2021 Episodic Polyhydramnios and other problems of amniotic cavity (2 sources) Polyhydramnios; Translations: [Polyhydramnios] 12-10-2015 Episodic Residual codes; unclassified (1 source) Obstructive sleep apnea syndrome; Translations: [Obstructive sleep apnea (adult) (pediatric)] 04-05-2023 Chronic Residual codes; unclassified (2 sources) Gestation period, 33 weeks; Translations: [33 weeks gestation of ] 12-10-2015 Episodic Residual codes; unclassified (10 sources) Tobacco user; Translations: [Tobacco use] 10-18-2021 Episodic Residual codes; unclassified (8 sources) Noncompliance with medication regimen; Translations: [Noncompliance with medication regimen] 08-03-2023 Episodic Residual codes; unclassified (9 sources) Early satiety; Translations: [Early satiety] 01-03-2024 Episodic Residual codes; unclassified (1 source) Medical care unavailable; Translations: [Procedure and treatment not carried out for other reasons] 01-16-2024 Episodic Residual codes; unclassified (1 source) Failed encounter; Translations: [No-show for appointment] 04-04-2024 Episodic Residual codes; unclassified (2 sources) Early satiety; Translations: [Early satiety] Onset: Episodic Schizophrenia and other psychotic disorders (10 sources) Unspecified psychosis not due to a substance or known physiological condition; Translations: [Acute exacerbation of psychosis] 09-12-2021 Chronic Schizophrenia and other psychotic disorders (8 sources) Brief psychotic disorder; Translations: [Acute psychosis] 08-03-2023 Episodic Skin and subcutaneous tissue infections (13 sources) Cutaneous abscess of left axilla; Translations: [Paronychia] Onset: 8 05-20-2020 Episodic Substance-related disorders (20 sources) Drug dependence during - baby not yet delivered; Translations: [Drug abuse, continuous] Onset: 4 Resolved: 3 12-10-2015 Chronic Suicide and intentional self-inflicted injury (10 sources) Suicidal thoughts; Translations: [Suicidal ideations] 08-03-2021 Episodic Thyroid disorders (20 sources) Hypothyroidism; Translations: [Hypothyroidism, unspecified] Onset: 9 07-31-2018 Chronic Thyroid disorders (3 sources) Disorder of thyroid, unspecified; Translations: [Disorder of thyroid gland] Onset: 6 04-30-2016 Episodic Unclassified (1 source) Other specified personal risk factors, not elsewhere classified; Translations: [Other specified personal risk factors, not elsewhere classified] Onset: 8 Episodic Unclassified (2 sources) Patient encounter status; Translations: [Encounter for anatomic survey] 12-10-2015 Unclassified (12 sources) Readiness finding; Translations: [Desire for detoxification] Unclassified (5 sources) Autogenerated Problem Onset: 5 02-07-2025 Unclassified (1 source) No-show for appointment; Translations: [No-show for appointment] Onset: 4 Viral infection (2 sources) Herpetic vulvovaginitis; Translations: [Herpesviral vulvovaginitis] Chronic Past or Other Problems Problem Classification Problem Date Documented Da te Episodic/Chronic Abdominal pain (20 sources) Flank pain; Translations: [Acute abdominal pain] Onset: 4 Resolved: 3 03-06-2015 Episodic Acute and unspecified renal failure (20 sources) Acute renal failure syndrome; Translations: [Acute injury of kidney] Onset: 4 Resolved: 4 02-24-2016 Episodic Administrative/social admission (20 sources) Social problem; Translations: [Problem related to unspecified psychosocial circumstances] Onset: 9 07-31-2018 Episodic Conditions associated with dizziness or vertigo (20 sources) Dizziness; Translations: [Dizziness and giddiness] Onset: 2 12-21-2021 Episodic Deficiency and other anemia (20 sources) Iron deficiency anemia; Translations: [Iron deficiency anemia, unspecified] Onset: 9 07-31-2018 Episodic Deficiency and other anemia (2 sources) Iron deficiency anemia, unspecified; Translations: [Iron deficiency anemia, unspecified iron deficiency anemia type] Onset: 9 Episodic Digestive congenital anomalies (20 sources) H/O: gastrointestinal disease; Translations: [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] Onset: 9 07-31-2018 Episodic Hemorrhoids (20 sources) Internal hemorrhoids grade I; Translations: [First degree hemorrhoids] Onset: 0 04-07-2022 Episodic Malignant neoplasm without specification of site (20 sources) Malignant neoplastic disease; Translations: [Malignant (primary) neoplasm, unspecified] Onset: 5 Resolved: 5 04-30-2016 Chronic Nutritional deficiencies (20 sources) Zinc deficiency; Translations: [Dietary zinc deficiency] Onset: 4 09-12-2023 Episodic Other and unspecified benign neoplasm (20 [...] diseases of kidney and ureters (20 sources) Vesicoureteric reflux; Translations: [Vesicoureteral-reflux with reflux nephropathy without hydroureter, unspecified] Onset: 5 12-10-2015 Episodic Other diseases of kidney and ureters (2 sources) Disorder of kidney and ureter, unspecified; Translations: [Kidney disease] Onset: 5 Episodic Other female genital disorders (20 sources) H/O: premature delivery; Translations: [Personal history of pre-term labor] Onset: 9 07-31-2018 Episodic Other gastrointestinal disorders (20 sources) Constipation; Translations: [Other constipation] Onset: 0 01-15-2020 Episodic Other gastrointestinal disorders (4 sources) Alteration in bowel elimination; Translations: [Change [...] Episodic Other lower respiratory disease (1 source) Wheezing; Translations: [Wheezing] Onset: 4 Episodic Other nervous system disorders (20 sources) Numbness; Translations: [Anesthesia of skin] Onset: 5 06-28-2014 Episodic Other skin disorders (2 sources) Rash and other nonspecific skin eruption; Translations: [Rash and other nonspecific skin eruption] Onset: 3 Episodic Screening and history of mental health and substance abuse codes (20 sources) H/O: manic depressive disorder; Translations: [Personal history of other mental and behavioral disorders] Onset: 2 03-03-2023 Episodic Spondylosis; intervertebral disc disorders; other back problems (20 sources) Backache; Translations: [Dorsalgia, unspecified] Onset: 1 04-19-2011 Episodic Substance-related disorders (20 sources) Complication occurring during ; Translations: [Drug use complicating , unspecified trimester] Onset: 6 Resolved: 3 07-31-2018 Episodic Urinary tract infections (20 sources) Urinary tract infection, site not specified; Translations: [Acute cystitis without hematuria] Onset: 4 Resolved: 4 03-06-2015 Episodic Viral infection (14 sources) Disease caused by 2019-nCoV; Translations: [COVID-19] Onset: 5 Episodic Results Test Name Value Interpretation Reference Range Facility EGD Reporton 03-18-2025 EGD Report [facility] Medical Records Department [address] [address] EGD Report MR#: [id number] Acct: [id number] Name: AISSATOU BETTS Rep #: [id number] : 1990 34 From: Zion Reese DO PCP: BRANDON Ruiz Status:REG [facility]DC Patient Name: Aissatou Betts Procedure Date: 03/18/2025 1:33 PM Date of : 1990 Age: 34 Procedure: Upper GI endoscopy Indications: Epigastric abdominal pain, Functional Dyspepsia, Nausea with vomiting, Persistent vomiting, Persistent vomiting of unknown cause, Vomiting, Weight loss Providers: Zion Reese DO Medicines: Monitored Anesthesia Care Patient Profile: This is a 34 year old female. Refer to note in patient chart for documentation of history and physical. Patient has symptoms of chronic right upper quadrant abdominal pain, acute left upper quadrant abdominal pain, acute left lower quadrant abdominal pain, chronic dyspepsia, chronic nausea and acute vomiting. Complications: No immediate complications. Procedure: Pre-Anesthesia Assessment: - Prior to the procedure, a History and Physical was performed, and patient medications and allergies were reviewed. The patient is competent. The risks and benefits of the procedure and the sedation options and risks were discussed with the patient. All questions were answered and informed consent was obtained. Patient identification and proposed procedure were verified by the physician in the pre-procedure area. Mental Status Examination: alert and oriented. Airway Examination: normal oropharyngeal airway and neck mobility. Respiratory Examination: clear to auscultation. CV Examination: normal. ASA Grade Assessment: II - A patient with mild systemic disease. After reviewing the risks and benefits, the patient was deemed in satisfactory condition to undergo the procedure. The anesthesia plan was to use monitored anesthesia care (MAC). Immediately prior to administration of medications, the patient was re-assessed for adequacy to receive sedatives. The heart rate, respiratory rate, oxygen saturations, blood pressure, adequacy of pulmonary ventilation, and response to care were monitored throughout the procedure. The physical status of the patient was re-assessed after the procedure. After obtaining informed consent, the endoscope was passed under direct vision. Throughout the procedure, the patient's blood pressure, pulse, and oxygen saturations were monitored continuously. The colonoscope was introduced through the mouth, and advanced to the fourth part of the duodenum. Small bowel enteroscopy was deemed necessary. The upper GI endoscopy was accomplished without difficulty. The patient tolerated the procedure well. Scope In: 1:40:12 PM Scope Out: 1:49:09 PM Total Procedure Duration Time 0 hours 8 minutes 57 seconds Findings: LA Grade A (one or more mucosal breaks less than 5 mm, not extending between tops of 2 mucosal folds) esophagitis with no bleeding was found 34 to 38 cm from the incisors. Biopsies were taken with a cold forceps for histology. Verification of patient identification for the specimen was done. Estimated blood loss was minimal. Suspect gastroparesis due to absence of peristalsis, patient symptoms and retained gastric contents. Biopsies were taken with a cold forceps for histology. Biopsies were taken with a cold forceps for Helicobacter pylori testing. Verification of patient identification for the specimen was done. Estimated blood loss was minimal. An acquired benign-appearing, intrinsic moderate stenosis was found in the first portion of the duodenum and was traversed. Impression: - LA Grade A reflux esophagitis with no bleeding. Biopsied. - Gastroparesis. Biopsied. - Acquired duodenal stenosis. Recommendation: - Discharge patient to home. - Resume previous diet. - Continue present medications. - Await pathology results. Procedure Code(s): --- Professional --- 90644, Small intestinal endoscopy, enteroscopy beyond second portion of duodenum, not including ileum; with biopsy, single or multiple CPT copyright 2021 [employer]. All rights reserved. The codes documented in this report are preliminary and upon seafood packer review may be revised to meet current compliance requirements. Zion Reese DO 03/18/2025 1:59:59 PM This report has been signed electronically. Number of Addenda: 0 Note Initiated On: 03/18/2025 1:33 PM 03/18/25 1400 Date Zion Valente Signature: Date (if indicated) CC: SAND FILLERJames Reese DO Date Dictated: 03/18/25 1333 Date Transcribed: Foreign Exchange Position Clerk: EUNICE Signed [facility] MR/POSTOP.[facility] 03-18-2025 MR/POSTOP.[facility] Medical Records Department [address] [place] [address] Anesthesia Postop Eval I 03/18/25 1359 MR#: [id number] Acct: [id number] Name: AISSATOU BETTS Rep #: [id number] : 1990 34 From: Elder Kirkland PCP: BRANDON Ruiz Status:REG SDC Y Race: C Location: [place] [address] Anesthesia: Postop Eval I Current Vital Signs Temperature: 97.7 F Pulse Rate: 62 Blood Pressure: 105/77 Respiratory Rate: 16 Pulse Ox: 98 Oxygen Delivery Method: Room Air Assessment Airway patent: Yes Spontaneous unlabored respirations: Yes Mental status: Asleep nausea: No Vomiting: No Anesthesia Complication: Yes Anesthesia Complication Comment:: hives noted proximal to IV site after adm of ondansetron, diphenhydramine adm IV Fluid Hydration Crystalloid volume administer (ml): 400 Total IV fluid infused: 400 Progress Note Anesthesia document: Postop Eval 1 completed: Yes 03/18/25 1401 Date Elder Alvarez Signature: Date CC: Signed Normal [facility] MR/[id number] 03-18-2025 MR/POSTOPAN2 [facility] Medical Records Department [address] [place] [address] Anesthesia Postop Eval II 03/18/25 151 MR#: [id number] Acct: [id number] Name: AISSATOU BETTS Rep #: [id number] : 1990 34 From: Yuliet Jacobs CRNA PCP: BRANDON Ruiz [place] [facility] [place] C Location: [place] [address] Anesthesia Postop Eval I Sum Postop Eval Completion status Anesthesia document: Postop Eval 1 completed: Yes Anesthesia Postop Eval I Summary Anesthesia Postop Eval I Summary: Anesthesia Postop Eval I: Assessment Summary Airway patent Yes 03/18/25 14:01 [email or web address] Spontaneous unlabored Yes 03/18/25 14:01 [email or web address] respirations Mental status Asleep 03/18/25 14:01 [email or web address] nausea No 03/18/25 14:01 [email or web address] Vomiting No 03/18/25 14:01 [email or web address] Anesthesia Postop Eval I: Fluid Summary Crystalloid volume administer 400 03/18/25 14:01 [email or web address] (ml) Colloids volume administered ( ml) Blood Product volume administered (ml) Total IV fluid infused 400 03/18/25 14:01 [email or web address] Anesthesia Postop Eval I: Summary Notes Anesthesia Complication Yes 03/18/25 14:01 [email or web address] Anesthesia Complication hives noted 03/18/25 14:01 [email or web address] Comment: proximal to IV site after adm of ondansetron, diphenhydramine adm IV Post-operative progress note Anesthesia: Postop Eval II Evaluation Mental status: Awake and Calm Pain Level: 0 nausea: No Vomiting: No Complications Anesthesia Complication: No 03/18/251510 Date Yuliet Kobwyattaspen WALKER Antonio Signature: Date CC: Signed Normal [facility] ,Urineon 03-18-2025 Beta HCG ( test) Ql (U) Negative Normal [facility] Comment on above: Result Comment: Very dilute urine specimens, as indicated by a low specific gravity, may not contain customer service representative teacher levels of hCG. If is still suspected, a first morning urine specimen should be collected 48 hours later and tested. Performed By: #### L [phone] #### [facility] [address] [place], [address] CNOVon 03-12-2025 CNOV Office Visit (GENSWS ) -------- AISSATOU BETTS ([id number]) 1990 Date Time Provider Department 03/12/25 11:30 AM ASHLI SALDANA [facility] During your visit today, we recorded the following information about you: Ashli Saldana APRN.AIR TRANSPORTATION PROVIDER 03/12/2025 11:48 AM Signed SUBJECTIVE: Aissatou Betts presents for follow up of her laparoscopic cholecystectomy on 02/25/[address] Pro. She tolerated the procedure well and was discharged home. FINAL DIAGNOSIS A. Gallbladder, cholecystectomy: - Acute on chronic cholecystitis. Patient complaints: back pain AND nausea -notes low back pain- radiation up the spine but not to the flank -no radiation down the legs -thinks pain is causing nausea -notes hx of job that required a lot of heavy lifting She denies abdominal pain, incisional pain, vomiting, diarrhea, fever, chills, jaundice , and dark urine She denies food intolerance. PHYSICAL EXAMINATION: LMP 04/15/2023 (Exact Date) General Appearance: Well developed, No acute distress Patient does not appear icteric. Abdomen: Abdomen soft, non-distended Incision: no drainage, no erythema, no swelling, very minimal ecchymosis near umbilicus, and no tenderness Back: tenderness along low spine- no CVA tenderness IMPRESSION: Post op course: Normal PLAN: Post-op patient instructions were reviewed with the patient. Low fat diet encouraged. I have explained to Ms. Aissatou Betts that she may return to normal activity with the following restrictions: no heavy lifting, pushing, pulling >20 lbs for 2 more weeks. I have encouraged her to contact me at any time with any questions or concerns that may arise. Recommend following up with PCP or chiropractor for back pain for further work up. Follow up: SANDOR Saldana APRN.AIR TRANSPORTATION PROVIDER Referring Provider: MICHAEL PRO [[id number]] Allergies As of Date: 03/12/2025 Noted Allergy Reaction ATORVASTATIN 07/03/2015 16 - Unknown CATS 10/27/2010 12 - Shortness of Breath DROPERIDOL 08/06/2012 10 - Anaphylaxis LAXATIVE PILL 09/25/2019 8 - GI Upset MEPERIDINE 07/03/2015 16 - Unknown SENNOSIDES 09/25/2019 14 - Other: See Comments Date Reviewed: 03/12/2025 Reviewed by: Bobbi Fuentes RN - Fully Assessed Reason for Visit: Post Op [174] Cmt: C/O back pain Primary Visit Diagnosis:Biliary colic [K80.50] Prescriptions as of 03/12/2025 - ondansetron orally disintegrating (ZOFRAN ODT) 4 mg disintegrating tablet Take 1 tablet by mouth every 8 hours as needed for nausea/vomiting. - levothyroxine (SYNTHROID) 75 mcg tablet Take 1 tablet by mouth daily before breakfast. - SUMAtriptan (IMITREX) 100 mg tablet Take 1 tablet by mouth as needed for migraine headache (see administration instructions) (do not use on more than 2 dyas per week.). May repeat dose after 2 hours if needed. Maximum daily dose is 200 mg per day. No more than 9 doses in a month. - omeprazole (PRILOSEC) 40 mg capsule Take 1 capsule by mouth once daily. - buprenorphine-nalOXone SL (SUBOXONE) 8-2 mg subl Dissolve 2 tablets under the tongue once daily. D/T hyper active thyroid - OTC PRODUCT Vitamin D drops - valACYclovir (VALTREX) 500 mg tablet Take 1 tablet by mouth once daily. - zinc sulfate 220 mg (50 mg zinc) capsule Take 1 capsule by mouth once daily for 21 days. - etonogestrel (NEXPLANON) subdermal implant 68 mg 1 Each by SUBDERMAL route as directed. - VITAMIN B-12 500 mcg tab tab(s) Take 1 tablet by mouth once daily. Meds Comments as of 03/23/2013: Pt. Denies taking any home medications Problem List As Of Date 03/12/2025 Noted Resolved Hodgkin lymphoma (HCC) [C81.90] 10/22/2010 Backache, unspecified [M54.9] 04/19/2011 Cervicalgia [M54.2] 04/19/2011 Depression [F32.A] 10/12/2011 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] 2011 Decreased hearing [H91.90] Bipolar 1 disorder (HCC) [F31.9] Left flank pain [R10.9] 02/19/2014 07/31/2018 Pyelonephritis [N12] 02/19/2014 09/12/2023 Substance abuse (HCC) [F19.10] 02/19/2014 DAQUAN (acute kidney injury) (HCC) [N17.9] 03/27/2014 09/10/2023 Nausea and vomiting [R11.2] 03/27/2014 07/31/2018 Numbness [R20.0] 06/28/2014 Trichomoniasis [A59.9] 07/31/2018 History of imperforate anus [Z87.738] 07/31/2018 Other specified hypothyroidism [E03.8] 07/31/2018 History of delivery [Z98.891] 07/31/2018 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 Normal 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 When Was Last Pacemaker Check QUESTION #4 FULL TEXT: You/Your Family Experience fever (hyperthermia) with Anesthesia Last Oral Intake Last Oral intake: Last Oral Intake NPO since Meds taken in AM with sips of water? Meds patient instructed to take am of surgery PONV PONV - housekeeping worker: PONV - housekeeping worker Female Yes 03/12/25 13:51 HX of Motion Sickness No 03/12/25 13:51 HX of N/V After Surgery No 03/12/25 13:51 Non-Smoker No 03/12/25 13:51 Duration of Surgery greater No 03/12/25 13:51 than 60 minutes Number of Risk Factors 1 03/12/25 13:51 PONV Score Low Risk 03/12/25 13:51 Height Weight Height Weight: Anesthesia: Height Weight Height 5 ft 9 in 12/31/24 10:26 Respiratory Assessment Respiratory Assessment - housekeeping worker: Respiratory Tract Infection Hx - housekeeping worker Hx Respiratory Tract Infection No 03/12/25 13:51 STOP Sleep Apnea STOP Sleep Apnea - housekeeping worker: STOP Sleep Apnea - housekeeping worker Hx Hypertension No 03/12/25 13:51 Hx Sleep Apnea No 03/12/25 13:51 CPAP No 03/12/25 13:51 BIPAP No 03/12/25 13:51 Do you snore loudly (louder No 03/12/25 13:51 than talking or can be heard Do you often feel tired/ No 03/12/25 13:51 fatigued/ sleepy during daytime? Has anyone observed you stop No 03/12/25 13:51 breathing during sleep? STOP Results Negative 03/12/25 13:51 QUESTION #5 FULL TEXT : Do you snore loudly (louder than talking or can be heard through closed doors)? 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 Specify any problems Hx of Preganancy in last 3 No 03/12/25 13:51 Months Nurse Filling Out Transfusion VCHRISTIN 03/12/25 13:51 Questions: Date: 03/12/25 03/12/25 13:51 Time: 13:53 03/12/25 13:51 Patient unable to answer at this time (ie. confused, unrespo /Reproduction History /Reproductive History - housekeeping worker: /Reproductive Hx- housekeeping worker Hx Now No 03/12/25 13:51 Gestational Age (in weeks): EDC: Hx Hx Para Hx Section SAB No 03/12/25 13:51 [facility] Medical History (Updated 03/12/25 @ 13:51 by Namita Bedolla) Marijuana use Neuropathy Thyroid disease Gastric reflux Vapes nicotine containing substance Shortness of breath on exertion Lymphoma Hx of malignant carcinoid tumor Substance abuse Alcohol abuse Bipolar disorder Hyperthyroidism Kidney disease Pancreatitis Tobacco abuse COVID-19 Flu vaccine need Tachycardia IBS (irritable bowel syndrome) Wears glasses Depression Anxiety History of renal disease Hepatitis Migraine headache Smoker History of imperforate anus Hydronephrosis Migraine Menometrorrhagia Deafness in left ear Pancreatitis Chronic headaches Drug abuse Asthma Anemia Seasonal allergies demise > 22 weeks, delivered, current hospitalization Home Medications ???Medication ???Instructions ???Recorded ???Last Taken ???Type valacyclovir 500 mg tablet 500 mg P (more content not included)... 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 Copy placed in scanning. Abdulaziz Castillo MA Allergies As of Date: 03/06/2025 Noted Allergy Reaction ATORVASTATIN 07/03/2015 16 - Unknown CATS 10/27/2010 12 - Shortness of Breath DROPERIDOL 08/06/2012 10 - Anaphylaxis LAXATIVE PILL 09/25/2019 8 - GI Upset MEPERIDINE 07/03/2015 16 - Unknown SENNOSIDES 09/25/2019 14 - Other: See Comments Date Reviewed: 02/25/2025 Reviewed by: Vesta Barrera RN - Fully Assessed Reason for Visit: Electronic Communication [890] Cmt: Medical source assessment form Prescriptions as of 03/06/2025 - levothyroxine (SYNTHROID) 75 mcg tablet Take 1 tablet by mouth daily before breakfast. - SUMAtriptan (IMITREX) 100 mg tablet Take 1 tablet by mouth as needed for migraine headache (see administration instructions) (do not use on more than 2 dyas per week.). May repeat dose after 2 hours if needed. Maximum daily dose is 200 mg per day. No more than 9 doses in a month. - omeprazole (PRILOSEC) 40 mg capsule Take 1 capsule by mouth once daily. - buprenorphine-nalOXone SL (SUBOXONE) 8-2 mg subl Dissolve 2 tablets under the tongue once daily. D/T hyper active thyroid - OTC PRODUCT Vitamin D drops - valACYclovir (VALTREX) 500 mg tablet Take 1 tablet by mouth once daily. - ondansetron orally disintegrating (ZOFRAN ODT) 4 mg disintegrating tablet Take 1 tablet by mouth every 8 hours as needed for nausea/vomiting. - zinc sulfate 220 mg (50 mg zinc) capsule Take 1 capsule by mouth once daily for 21 days. - etonogestrel (NEXPLANON) subdermal implant 68 mg 1 Each by SUBDERMAL route as directed. - VITAMIN B-12 500 mcg tab tab(s) Take 1 tablet by mouth once daily. Meds Comments as of 03/23/2013: Pt. Denies taking any home medications Problem List As Of Date 03/06/2025 Noted Resolved Hodgkin lymphoma (HCC) [C81.90] 10/22/2010 Backache, unspecified [M54.9] 04/19/2011 Cervicalgia [M54.2] 04/19/2011 Depression [F32.A] 10/12/2011 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] 2011 Decreased hearing [H91.90] Bipolar 1 disorder (HCC) [F31.9] Left flank pain [R10.9] 02/19/2014 07/31/2018 Pyelonephritis [N12] 02/19/2014 09/12/2023 Substance abuse (HCC) [F19.10] 02/19/2014 DAQUAN (acute kidney injury) (HCC) [N17.9] 03/27/2014 09/10/2023 Nausea and vomiting [R11.2] 03/27/2014 07/31/2018 Numbness [R20.0] 06/28/2014 Trichomoniasis [A59.9] 07/31/2018 History of imperforate anus [Z87.738] 07/31/2018 Other specified hypothyroidism [E03.8] 07/31/2018 History of delivery [Z98.891] 07/31/2018 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] 07/31/2018 UTI (urinary tract infection) in , ant*07/31/2018 Chronic hepatitis C without hepatic coma (HCC) *07/31/2018 Iron deficiency anemia [D50.9] 07/31/2018 Social problem [Z60.9] 07/31/2018 History of delivery [Z87.51] 07/31/2018 Tobacco use disorder [F17.200] 07/31/2018 Buprenorphine maintenance treatment affecting p*07/31/2018 Supervision of high risk , antepartum *07/31/2018 Dizziness [R42] 12/21/2021 Acute kidney injury (HCC) [N17.9] 09/10/2023 Anxiety [F41.9] 09/10/2023 09/12/2023 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 PTSD (post-traumatic stress disorder) [F43.10] 09/11/2023 Zinc deficiency [E60] 09/12/2023 Anxiety disorder [F41.9] 11/08/2023 Vesicoureteral reflux with resulting kidney dis*07/11/2024 Vitamin D deficiency [E55.9] 03/04/2022 Moderate persistent asthma without complication*11/21/2022 Migraine [G43.909] 03/04/2022 Malignant neoplasm (HCC) [C80.1] 07/11/2024 09/17/2024 Idiopathic peripheral neuropathy [G60.9] 07/16/2015 Hydronephrosis of left kidney [N13.30] 03/04/2022 Hx of adenomatous polyp of colon [Z86.0101] 01/17/2020 History of manic depressive disorder [Z86.59] 07/11/2024 Drug abuse, daily use (HCC) [F19.10] 02/24/2016 Anemia of renal disease [N18.9, D63.1] 04/30/2016 Deafness in left ear [H91.92] 07/11/2024 Encounter Status:Closed by ABDULAZIZ CASTILLO on 03/06/25 [facility] CNPN Telephone (RedeemrS) -------- AISSATOU BETTS ([id number]) 1990 F Date Time Provider Department 03/06/25 MICHAEL PRO GENSWS During your visit today, we recorded the following information about you: Rosaura Candelaria LPN 03/06/2025 3:18 PM Signed Patient calling and states she developed a wave of nausea today and vomited. Patient had been advancing diet and she has tolerated a regular diet for several days. She felt she had been improving and today has had emesis twice. Asking if this is could be related to surgery or if she should be concerned for illness? She does have Zofran and plans on using a dose. Please advise. TRACIE Collins Kimberly, LPN 03/07/2025 10:05 AM Signed Called patient. Verified name and date of . Patient states she did take the Zofran yesterday and the emesis did stop but is now having nausea again. She did only take one yesterday and took one Zofran today. Educated to keep on top of the nausea and take the Zofran more routinely to avoid it getting bad. Patient requesting refill of Zofran. Patient denies fever. States she feels the wound is healing well but just doesn't feel energetic yet and was not expecting to feel poorly. Requested Prescriptions Pending Prescriptions Disp Refills ondansetron orally disintegrating (ZOFRAN ODT) 4 mg disintegrating tablet 30 tablet Sig: Take 1 tablet by mouth every 8 hours as needed for nausea/vomiting. Please review and advise. TRACIE Mueller Kimberley, APRN.WILLIAM 03/07/2025 11:48 AM Signed Zofran refilled. Ask how her pain is? She shouldn't be getting worse at the 10 day kaycee if she was initially feeling better. The nausea could be related to an illness. Eat small, bland meals. Take the zofran as needed. Push fluids. Fluids are more important than food. If still vomiting with Zofran on board, dizzy, weak, heart racing, feeling like she is going to pass out, or having increased RUQ pain she should be seen in the ED. Aslhi Saldana APRN.Aicha Mir LPN 03/07/2025 1:06 PM Signed Called patient. No answer- left message to call clinic. TRACIE Mueller Laurie, MA 03/07/2025 1:51 PM Addendum Pt notified and verbalizes understanding. Pt states she is starting to feel better. Eleonora Paul MA Allergies As of Date: 03/06/2025 Noted Allergy Reaction ATORVASTATIN 07/03/2015 16 - Unknown CATS 10/27/2010 12 - Shortness of Breath DROPERIDOL 08/06/2012 10 - Anaphylaxis LAXATIVE PILL 09/25/2019 8 - GI Upset MEPERIDINE 07/03/2015 16 - Unknown SENNOSIDES 09/25/2019 14 - Other: See Comments Date Reviewed: 02/25/2025 Reviewed by: Vesta Barrera RN - Fully Assessed Reason for Visit: Patient Update [1234] Primary Visit Diagnosis:Nausea and vomiting, unspecified vomiting type [R11.2] Other Visit Diagnosis:Intractable chronic migraine without aura and without status migrainosus [G43.719] Order(s):ondansetron orally disintegrating (ZOFRAN ODT) 4 mg disintegrating tabletTake 1 tablet by mouth every 8 hours as needed for nausea/vomiting.Disp: 30 tabletRfl: 0 Prescriptions as of 03/07/2025 - ondansetron orally disintegrating (ZOFRAN ODT) 4 mg disintegrating tablet Take 1 tablet by mouth every 8 hours as needed for nausea/vomiting. - levothyroxine (SYNTHROID) 75 mcg tablet Take 1 tablet by mouth daily before breakfast. - SUMAtriptan (IMITREX) 100 mg tablet Take 1 tablet by mouth as needed for migraine headache (see administration instructions) (do not use on more than 2 dyas per week.). May repeat dose after 2 hours if needed. Maximum daily dose is 200 mg per day. No more than 9 doses in a month. - omeprazole (PRILOSEC) 40 mg capsule Take 1 capsule by mouth once daily. - buprenorphine-nalOXone SL (SUBOXONE) 8-2 mg subl Dissolve 2 tablets under the tongue once daily. D/T hyper active thyroid - OTC PRODUCT Vitamin D drops - valACYclovir (VALTREX) 500 mg tablet Take 1 tablet by mouth once daily. - zinc sulfate 220 mg (50 mg zinc) capsule Take 1 capsule by mouth once daily for 21 days. - etonogestrel (NEXPLANON) subdermal implant 68 mg 1 Each by SUBDERMAL route as directed. - VITAMIN B-12 500 mcg tab tab(s) Take 1 tablet by mouth once daily. Meds Comments as of 03/23/2013: Pt. Denies taking any home medications Problem List As Of Date 03/06/2025 Noted Resolved Hodgkin lymphoma (HCC) [C81.90] 10/22/2010 Backache, unspecified [M54.9] 04/19/2011 Cervicalgia [M54.2] 04/19/2011 Depression [F32.A] 10/12/2011 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] 2011 Decreased hearing [H91.90] Bipolar 1 disorder (HCC) [F31.9] Left flank pain [R10.9] 02/19/2014 07/31/2018 Pyelonephritis [N12] 02/19/2014 09/12/2023 Substance abuse (HCC) [F19.10] 02/19/2014 DAQUAN (acute kidney injury) (HCC) [N17.9] 03/27/2014 09/10/2023 Nausea and vomiting [R11.2] 03/27/2014 07/31/2018 Numbness [R20.0] 01 (more content not included)... Normal [facility] 02-26-2025 [facility] (GENS[facility] -------- AISSATOU BETTS ([id number]) 1990 F Date Time Provider Department 02/26/25 MICHAEL PRO During your visit today, we recorded the following information about you: Nargis Foster 02/26/2025 11:43 AM Signed CC Central Scheduling contacted Jules Toussaint to schedule patient's post op visit with Dr. Pro. PSS unable to find availability until March. Please notify the patient if she is able to follow up with PAOL[facility] or if patient can be scheduled in new patient slot. Nargis Foster 02/27/2025 8:48 AM Signed Patient has been scheduled with Les on 03/12/25. Pathology still in process. Allergies As of Date: 02/26/2025 Noted Allergy Reaction ATORVASTATIN 07/03/2015 16 - Unknown CATS 10/27/2010 12 - Shortness of Breath DROPERIDOL 08/06/2012 10 - Anaphylaxis LAXATIVE PILL 09/25/2019 8 - GI Upset MEPERIDINE 07/03/2015 16 - Unknown SENNOSIDES 09/25/2019 14 - Other: See Comments Date Reviewed: 02/25/2025 Reviewed by: Vesta Barrera, RN - Fully Assessed Reason for Visit: Appointment [186] Cmt: Post Op Prescriptions as of 02/27/2025 - oxyCODONE-acetaminophen (PERCOCET) 5-325 mg tablet Take 1 tablet by mouth four times a day as needed for up to 3 days. FOR PAIN. - levothyroxine (SYNTHROID) 75 mcg tablet Take 1 tablet by mouth daily before breakfast. - SUMAtriptan (IMITREX) 100 mg tablet Take 1 tablet by mouth as needed for migraine headache (see administration instructions) (do not use on more than 2 dyas per week.). May repeat dose after 2 hours if needed. Maximum daily dose is 200 mg per day. No more than 9 doses in a month. - omeprazole (PRILOSEC) 40 mg capsule Take 1 capsule by mouth once daily. - buprenorphine-nalOXone SL (SUBOXONE) 8-2 mg subl Dissolve 2 tablets under the tongue once daily. D/T hyper active thyroid - OTC PRODUCT Vitamin D drops - valACYclovir (VALTREX) 500 mg tablet Take 1 tablet by mouth once daily. - ondansetron orally disintegrating (ZOFRAN ODT) 4 mg disintegrating tablet Take 1 tablet by mouth every 8 hours as needed for nausea/vomiting. - zinc sulfate 220 mg (50 mg zinc) capsule Take 1 capsule by mouth once daily for 21 days. - etonogestrel (NEXPLANON) subdermal implant 68 mg 1 Each by SUBDERMAL route as directed. - VITAMIN B-12 500 mcg tab tab(s) Take 1 tablet by mouth once daily. Meds Comments as of 03/23/2013: Pt. Denies taking any home medications Problem List As Of Date 02/26/2025 Noted Resolved Hodgkin lymphoma (HCC) [C81.90] 10/22/2010 Backache, unspecified [M54.9] 04/19/2011 Cervicalgia [M54.2] 04/19/2011 Depression [F32.A] 10/12/2011 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] 2011 Decreased hearing [H91.90] Bipolar 1 disorder (HCC) [F31.9] Left flank pain [R10.9] 02/19/2014 07/31/2018 Pyelonephritis [N12] 02/19/2014 09/12/2023 Substance abuse (HCC) [F19.10] 02/19/2014 DAQUAN (acute kidney injury) (HCC) [N17.9] 03/27/2014 09/10/2023 Nausea and vomiting [R11.2] 03/27/2014 07/31/2018 Numbness [R20.0] 06/28/2014 Trichomoniasis [A59.9] 07/31/2018 History of imperforate anus [Z87.738] 07/31/2018 Other specified hypothyroidism [E03.8] 07/31/2018 History of delivery [Z98.891] 07/31/2018 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] 07/31/2018 UTI (urinary tract infection) in , ant*07/31/2018 Chronic hepatitis C without hepatic coma (HCC) *07/31/2018 Iron deficiency anemia [D50.9] 07/31/2018 Social problem [Z60.9] 07/31/2018 History of delivery [Z87.51] 07/31/2018 Tobacco use disorder [F17.200] 07/31/2018 Buprenorphine maintenance treatment affecting p*07/31/2018 Supervision of high risk , antepartum *07/31/2018 Dizziness [R42] 12/21/2021 Acute kidney injury (HCC) [N17.9] 09/10/2023 Anxiety [F41.9] 09/10/2023 09/12/2023 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 PTSD (post-traumatic stress disorder) [F43.10] 09/11/2023 Zinc deficiency [E60] 09/12/2023 Anxiety disorder [F41.9] 11/08/2023 Vesicoureteral reflux with resulting kidney dis*07/11/2024 Vitamin D deficiency [E55.9] 03/04/2022 Moderate persistent asthma without complication*11/21/2022 Migraine [G43.909] 03/04/2022 Malignant neoplasm (HCC) [C80.1] 07/11/2024 09/17/2024 Idiopathic peripheral neuropathy [G60.9] 07/16/2015 Hydronephrosis of left kidney [N13.30] 03/04/2022 Hx of adenomatous polyp of colon [Z86.0101] 01/17/2020 History of manic depressive disorder [Z86.59] 07/11/2024 Drug abuse, daily use (HCC) [F19.10] 02/24/2016 Anemia of renal disease [N18.9, D63.1] 04/30/2016 Deafness in left ear [H91.92] 07/11/2024 Encounter Status:Closed by NARGIS FOSTER on 02/27/25 [facility] ANES POSTPROC EVALon 025 ANES POSTPROC EVAL HNO ID: [id number] Author: NARINDER RODRIGUEZ MD Service: Anesthesiology Author Type: Anesthesiologist Type: Anesthesia Postprocedure Evaluation Filed: 02/25/2025 16:12 Note Text: POST ANESTHESIA EVALUATION NOTE : 1990 Procedure Summary Date: 02/25/25 Room / Location: SD OR03 / SD OR Anesthesia Start: 1331 Anesthesia Stop: 1549 Procedure: LAPAROSCOPIC CHOLECYSTECTOMY WITH GRAMS (Abdomen) Diagnosis: Biliary colic (Biliary colic [K80.50]) Surgeons: Michael Pro MD Responsible Provider: Narinder Rodriguez MD Anesthesia Type: general ASA Status: 3 Anesthesia Type: general Airway Type: ETT Last Vitals Vitals Value Taken Time BP 160/99 02/25/25 16:00 Temp 36.8 ?C (98.2 ?F) 02/25/25 15:45 Pulse 79 02/25/25 16:00 Resp 16 02/25/25 16:00 SpO2 100 % 02/25/25 16:00 Post Anesthesia Patient Status Patient Evaluation: bedside. Anticipated Disposition: phase 2 then home. Neurological Status: aware and responsive. Pulmonary Status: breathing comfortably on room air Airway Control: returned to baseline unsupported. Cardiovascular Status: stable. Pain Management: clinically adequate Postoperative Hydration: acceptable. Intraoperative Events: no significant anesthesia events Post Operative Nausea/Vomiting Status: no significant post operative nausea or vomiting Recommendation: continue current plan of care. Anesthesia Observations No Documentation SIGNATURE: Narinder Rodriguez MD PATIENT NAME: Aissatou Betts DATE: February 25, 2025 TIME: 4:12 PM CSN: [id number] [facility] ANES PRE-OPon 02-25-2025 ANES PRE-OP HNO ID: [id number] Author: ALAN MARTINEZ DO Service: Anesthesiology Author Type: Anesthesiologist Type: Anesthesia Preprocedure Evaluation Filed: 02/25/2025 11:15 Note Text: ANESTHESIOLOGY DAY OF SURGERY NOTE : 1990 Procedure Information Date/Time: 02/25/25 1128 Procedure: LAPAROSCOPIC CHOLECYSTECTOMY WITH GRAMS (Abdomen) Location: SD OR03 / SD OR Surgeons: Michael Pro MD Estimated body mass index is 16.39 kg/m? as calculated from the following: Height as of this encounter: 175.3 cm (5' 9). Weight as of this encounter: 50.3 kg (111 lb). Most recent hematocrit and potassium results: Hematocrit 34.7 01/24/2025 Potassium 3.7 12/20/2024 Relevant Problems CARDIO (+) Migraine ENDO (+) Other specified hypothyroidism -RENAL (+) Acute kidney injury (+) Anemia of renal disease (+) Chronic hepatitis C without hepatic coma (HCC) (+) Congenital solitary kidney (+) Hydronephrosis of left kidney NEURO-PSYCH (+) Migraine PULMONARY (+) Moderate persistent asthma without complication (HCC) I - PHYSICAL EVALUATION AIRWAY Patient intubated: No. Tracheostomy tube not present Mallampati: II. TM distance: >3 FB. Neck ROM: full ROM without neurological symptoms. Mouth openin FB. Short neck: no. Thick neck: no DENTAL Dental findings: teeth intact. II - ANESTHESIA PLAN ASA Score: 3 Anesthetic Plan: general Airway type: ETT NPO Status: adequate Monitoring Plan Monitoring plan: standard ASA. Post Procedure Analgesic Plan Postoperative analgesic plan: parenteral or oral opioids, multimodal analgesia and per surgical service. Informed Consent Anesthetic risks, benefits, alternatives, personnel and consent discussed: yes. Patient / Responsible Republican agrees to proceed: yes Patient / Surrogate agrees to blood products: Yes DNR status not reviewed with patient and/or family prior to surgery. Significant changes in the patient condition since the History and Physical, not otherwise documented in primary service progress note: no. Potential Anesthesia issues that may suggest increased risk of complications or contraindication to planned procedure: none. Discussed the possibility of lip / dental damage: yes Vitals Value Taken Time BP 120/68 02/25/25 10:07 Pulse 53 02/25/25 10:07 Resp 18 02/25/25 10:07 Temp 37.2 ?C (99 ?F) 02/25/25 10:07 SpO2 100 % 02/25/25 10:07 Facility-Administered Medications as of 02/25/2025 Medication Dose Route Frequency lidocaine (PF) 10 mg/mL (1 %) 1-2 mg injection (XYLOCAINE) 0.1-0.2 mL INTRADERMAL PRN lactated ringers iv infusion 5-30 mL/hr INTRAVENOUS CONTINUOUS NaCl 0.9% iv flush bag 20 mL INTRAVENOUS PRN ceFAZolin iv piggyback 2 g in D5W (iso-osmotic) 100 mL (ANCEF) 2 g INTRAVENOUS Pre-Op Once [COMPLETED] acetaminophen 1,000 mg tab(s) (TYLENOL) 1,000 mg ORAL Pre-Op Once [COMPLETED] promethazine 12.5 mg tab(s) (PHENERGAN) 12.5 mg ORAL Pre-Op Once scopolamine (delivers 1 mg over 3 days) 1 patch (TRANSDERM-SCOP) 1 patch TRANSDERMAL ONCE scopolamine - VERIFY patch OTHER q 8 H [START ON 02/26/2025] scopolamine - REMOVE PATCH OTHER ONCE Outpatient Medications as of 02/25/2025 Medication Sig levothyroxine (SYNTHROID) 75 mcg tablet Take 1 tablet by mouth daily before breakfast. omeprazole (PRILOSEC) 40 mg capsule Take 1 capsule by mouth once daily. buprenorphine-nalOXone SL (SUBOXONE) 8-2 mg subl Dissolve 2 tablets under the tongue once daily. D/T hyper active thyroid valACYclovir (VALTREX) 500 mg tablet Take 1 tablet by mouth once daily. ondansetron orally disintegrating (ZOFRAN ODT) 4 mg disintegrating tablet Take 1 tablet by mouth every 8 hours as needed for nausea/vomiting. VITAMIN B-12 500 mcg tab tab(s) Take 1 tablet by mouth once daily. SUMAtriptan (IMITREX) 100 mg tablet Take 1 tablet by mouth as needed for migraine headache (see administration instructions) (do not use on more than 2 dyas per week.). May repeat dose after 2 hours if needed. Maximum daily dose is 200 mg per day. No more than 9 doses in a month. OTC PRODUCT Vitamin D drops etonogestrel (NEXPLANON) subdermal implant 68 mg 1 Each by SUBDERMAL route as directed. I have interviewed and examined the patient. I have reviewed the medical record and/or the pre-anesthesia evaluation, pertinent labs, and test results. This contains updated information obtained within 48 hours of Surgery/Procedure. SIGNATURE: Alan Martinez DO PATIENT NAME: Aissatou Betts DATE: February 25, 2025 TIME: 11:11 AM CSN: [id number] [facility] HISTORY PHYSICALon HISTORY PHYSICAL HNO ID: [id number] Author: MICHAEL PRO MD Service: General Surgery Author Type: Physician Type: H&P Filed: 02/25/2025 13:01 Note Text: HISTORY AND PHYSICAL Aissatou Betts 1990 REFERRING PHYSICIAN: No ref. provider found CHIEF COMPLAINT: Consult (concerns for gallbladder, upper right back pain, cramping//) HPI: Aissatou is a 34 year old female with a complaint of right upper quadrant pain. The patient has had symptoms of right upper quadrant pain for 6 months. The symptoms have increased, over the past 4 weeks. The pain does radiate to the back and shoulder. Food does aggravate her symptoms. Alleviating factors include: none. 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 Aissatou is scheduled for surgery on Monday. She had an ultrasound in December that showed biliary sludge but no cholelithiasis. Her renal function has been evaluated and is reportedly good. 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 Additional surgical history includes placement and removal of a power port, tumor excision from the left side of the neck, and a . She denies any current medical issues related to her past conditions. She reports an allergy to cats and denies any medication allergies. The patient is being seen by me today at the request of Pam Yost APRN.CNP for my opinion and advice regarding RUQ pain/biliary colic. SIGNIFICANT MEDICAL PROBLEMS: PAST MEDICAL HISTORY PAST MEDICAL HISTORY Diagnosis Date Alcohol abuse polysubstance abuse. 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 Depression 10/12/2011 Headache High blood pressure per patient - associated with breathing History of delivery History of Hodgkin's lymphoma Hodgkin's disease 2008 S/p chemo/radiation Hypothyroidism Solitary kidney, congenital pt born with single kidney OPERATIONS: PAST SURGICAL HISTORY PAST SURGICAL HISTORY Procedure Laterality Date SECTION HX 02/24/2016 COLONOSCOPY SCREENING 2022 HERPES 1 AND 2, IGB+ 2011 NEXPLANON INSERTION Left 04/20/2023 Placed in office PAST SURGICAL HISTORY OF kidney surgery PAST SURGICAL HISTORY OF rectal PAST SURGICAL HISTORY OF 06/09/2009 Left Supraclavicular Lymphnode Excision VSD CLOSURE CURRENT MEDICATIONS: CURRENT MEDICATIONS Current Outpatient Medications Medication Sig Dispense Refill levothyroxine (SYNTHROID) 75 mcg tablet Take 1 tablet by mouth daily before breakfast. 90 tablet 1 SUMAtriptan (IMITREX) 100 mg tablet Take 1 tablet by mouth as needed for migraine headache (see administration instructions) (do not use on more than 2 dyas per week.). May repeat dose after 2 hours if needed. Maximum daily dose is 200 mg per day. No more than 9 doses in a month. 9 tablet 5 omeprazole (PRILOSEC) 40 mg capsule Take 1 capsule by mouth once daily. 30 capsule 1 buprenorphine-nalOXone SL (SUBOXONE) 8-2 mg subl Dissolve 2 tablets under the tongue once daily. D/T hyper active thyroid OTC PRODUCT Vitamin D drops valACYclovir (VALTREX) 500 mg tablet Take 1 tablet by mouth once daily. 90 tablet 1 ondansetron orally disintegrating (ZOFRAN ODT) 4 mg disintegrating tablet Take 1 tablet by mouth every 8 hours as needed for nausea/vomiting. 30 tablet 11 zinc sulfate 220 mg (50 mg zinc) capsule Take 1 capsule by mouth once daily for 21 days. 21 capsule 0 etonogestrel (NEXPLANON) subdermal implant 68 mg 1 Each by SUBDERMAL route as directed. 1 Each 0 VITAMIN B-12 500 mcg tab tab(s) Take 1 tablet by mouth once daily. No current facility-administered medications for this visit. ALLERGIES: Atorvastatin, Cats, Droperidol, Laxative Pill, Meperidine, and Sennosides PERSONAL HISTORY: [SOCIAL HISTORY] [SOCIAL HISTORY] Social History Tobacco Use Smoking status: Former Current packs/day: 0.00 Types: Cigarettes Smokeless tobacco: Never Vaping Use Vaping status: current everyday user Substances: Nicotine, Flavoring Substance Use Topics Alcohol use: Not Currently Alcohol/week: 1.0 standard drink of alcohol Types: 1 Cans of beer per week Drug use: Yes Types: Marijuana Comment: does use CBD, used heroin, crack, marijuana, meth in past. Last used heroin and crack November 12, 2021 FAMILY HISTORY: FAMILY HISTORY FAMILY HISTORY Problem Relation Age of Onset Hypertension Mother other (depresssion) Mother No Known Problems Father Lung Cancer Maternal Grandfather other (ulcerative colitis) Paternal Grandmother Diabetes Maternal Aunt REVIEW OF SYMPTOMS: The review of systems (more content not included)... [facility] HISTORY PHYSICAL HNO ID: [id number] Author: MICHAEL PRO MD Service: General Surgery Author Type: Resident Type: H&P Filed: 02/26/2025 18:09 Note Text: -------- Attestation signed by Michael Pro MD at 02/26/2025 6:09 PM Attending Note I evaluated the patient and personally participated in the duenas components. I agree with the resident's findings and plan as documented and have discussed the case and management of the patient's care with the resident. Signature: Michael Pro MD Date: 02/26/2025 Time: 6:09 PM -------- UPDATED HISTORY AND PHYSICAL EXAMINATION SERVICE DATE: 02/25/2025 SERVICE TIME: 12:54 PM Physical Exam: Heart: regular rate, extremities warm and well perfused Lungs: no audible wheezing, equal chest rise bilaterally, no signs of respiratory distress PHYSICAL EXAM MUST BE COMPLETED ON ADMISSION The History and Physical (completed in the past 30 days) has been reviewed and the patient has been examined. The contents accurately reflect the patient's condition with the following additions or revisions since the HANDP was completed. Examination indicates no changes. This HANDP can be found in the Electronic Medical Record dated 02/21/25. SIGNATURE: Krista Lamas DO PATIENT NAME: Aissatou eBtts DATE: February 25, 2025 TIME: 12:54 PM [facility] OPERATIVE NOon 02-25-2025 OPERATIVE NO HNO ID: [id number] Author: MICHAEL PRO MD Service: General Surgery Author Type: Resident Type: Operative Report Filed: 02/26/2025 18:11 Note Text: -------- Attestation signed by Michael Pro MD at 02/26/2025 6:11 PM PARTICIPATION IN SURGERY/PROCEDURE: Resident performed the procedure, under direct supervision and the remainder of the procedure was performed by the primary surgeon/proceduralist with assistance. -------- OPERATIVE/PROCEDURE REPORT LOG ID: [id number] SURGERY/PROCEDURE DATE: 02/25/2025 INCISION/PROCEDURE START TIME: 1:57 PM INCISION CLOSE/PROCEDURE END TIME: SURGEON(S)/PROCEDURALIST (S) AND JAILOR(S): Surgeons and Role: * Michael Pro MD - Primary * Krista Lamas DO - Resident - Assisting Physician Health Records Technology Teacher: Brianna Hylton PA-C SURGERY/PROCEDURE(S): Procedure(s) (LRB): LAPAROSCOPIC CHOLECYSTECTOMY WITH GRAMS (N/A) ANESTHESIA: General OPERATIVE INDICATIONS: This is a 34 year old who presents with right upper abdominal and HIDA findings of biliary dyskinesia with a gallbladder EF of 87% and RUQ US findings of sludge. After discussion of benefits, risks, and alternatives, the patient consented for surgery. OPERATIVE FINDINGS: Normal appearing gallbladder SURGERY/PROCEDURE DETAILS: A surgical huddle was completed with the treatment team, which included confirmation of the surgical site, procedure, and antibiotic administration. After induction of General anesthesia, the patient was positioned and padded appropriately. The patient was prepped and draped in a sterile fashion and a preprocedural time out performed. We injected a 50:50 mixture of 1% lidocaine and 0.5% bupivicaine local anesthetic at the inferior umbilicus. We made an incision dissected the tissue bluntly until we identified the umbilical stalk. Two prolene stay sutures were placed and the fascia was opened sharply with a scalpel. A 10 mm port was placed and pneumoperitoneum was established. After confirmation there were no intraabdominal injuries, a 5 mm port was placed at the subxiphoid region. Two additional 5 mm ports were placed under direct visualization in the right upper and mid abdomen. The gallbladder was grasped and retracted. Peritoneal attachments to the duodenum were carefully freed with bovie electrocautery. The peritoneum was scored with a hook and dissection of the peritoneum was carried medially and laterally. The cystic artery was anterior on the gallbladder and this was isolated with blunt dissection. We then placed 2 hemolock clips on the cystic artery stay side and one on the specimen side and the artery was divided. We then proceeded to take the peritoneal attachments surrounding the gallbladder with a combination of blunt dissection and bovie electrocautery. The cystic duct was dissected out and a hemolock clip was placed. The cystic duct was partially cut with laparoscopic scissors and a percutaneous cholangiogram catheter was introduced into the cystic duct and saline was easily flushed. A cholangiogram was then performed which showed no filling defects. The cystic duct was then fully divided and 2 additional hemolock clips were placed on the stay side for a total of 3 clips. The gallbladder was then dissected off the liver bed with hookelectrocautery. As we proceeded with our dissection, there was a posterior branch of the cystic artery that was clipped on the stay side and taken with electrocautery on the specimen side. There was spillage of bile given the thin and frail gallbladder wall. Once the gallbladder was free from the liver, the gallbladder was placed in an Oakman bag and passed off the field to be sent to pathology. Hemostasis was achieved and the abdomen was irrigated with normal saline. The infraumbilical port was closed with 0-PDS in a figure of eight fashion. All port sites were then closed with 4-0 monocryl, steri strips and opsite dressings. All sponge, needle, instrument counts were correct at the time of case completion. We completed the universal safety sign out and check out at completion of the case. All staff members were in agreement. The patient tolerated the procedure well and was transferred to the PACU in satisfactory condition. PRE-OP/PRE-PROCEDURE DIAGNOSIS: Pre-Op Diagnosis Codes: * Biliary colic [K80.50] POST-OP/POST-PROCEDURE DIAGNOSIS: Post-Op Diagnosis Codes: * Biliary colic [K80.50] Same as Preop Antibiotics: Current Anti-Infective Meds (From admission, onward) Start Stop Route Frequency Ordered 02/25/25 1000 ceFAZolin iv piggyback 2 g in D5W (iso-osmotic) 100 mL (ANCEF) 02/25/25 1331 IV PRE-OP ONCE 02/25/25 0946 ESTIMATED BLOOD LOSS: 10 mls SPECIMENS: ID Type Source Tests Collected by Time Destination A : Tissue Gallbladder SURGICA (more content not included)... [facility] Pathology biopsy report Alberto (Tiss)on 02-25-2025 AP DISCLAIMER [facility] Comment on above: Order Comment: Speci men Type: TISSUE SPECIMEN Ordering Facility: [facility] Address: [address] [place] [address] Result Comment: Richard hubbard Developed Test (LDT) Disclaimer: Performance characteristics of immunohistochemical, immunofluorescent, and chromogenic in-situ hybridization tests have been determined by the performing laboratory within the [facility] Department of Pathology and Laboratory Medicine ([facility], [facility], [facility], [facility], [facility], [facility], or [facility]) in a manner consistent with CLIA requirements. One or more of these tests may not have been cleared or approved by the FDA. The [facility] Department of Pathology and Laboratory Medicine is regulated under CLIA as qualified to perform high-complexity testing. These tests are used for clinical purposes. These should not be regarded as investigational or for research. Positive and negative controls stain appropriately. Performed By: #### 6 6121-5 #### [facility] CLIA [id number] [address] [place], [place] [address] [address] [place] CASE REPORT [facility] Comment on above: Order Comment: Speci men Type: TISSUE SPECIMEN Ordering Facility: [facility] Address: [address] [place] [address] Result Comment: Surg ica Pathology Report Case: [id number] Authorizing Provider: Michael Pro MD Collected: 02/25/2025 02:11 PM [facility] Received: 02/25/2025 03:53 PM Pathologist: Jaxson Bajwa MD Specimen: Gallbladder Performed By: #### 6 6121-5 #### [facility] CLIA [id number] [address] [place] [address] [place] CLINICAL HISTORY [facility] Comment on above: Order Comment: Speci men Type: TISSUE SPECIMEN Ordering Facility: [facility] Address: [address] [place] [address] Result Comment: Pre- op diagnosis: Biliary colic [K80.50] Performed By: #### 6 6121-5 #### [facility] CLIA [id number] [address] [place] [address] [place] FINAL DIAGNOSIS [facility] Comment on above: Order Comment: Speci men Type: TISSUE SPECIMEN Ordering Facility: [facility] Address: [address] [place] [address] Result Comment: A. G allbladder, cholecystectomy: - Acute on chronic cholecystitis. at 1031 EDT Performed By: #### 6 6121-5 #### [facility] CLIA [id number] [address] [place] [address] [place] FINAL PERFORMING LAB [facility] Comment on above: Order Comment: Speci men Type: TISSUE SPECIMEN Ordering Facility: [facility] Address: [address] [place] [address] Result Comment: Diag nostic interpretation performed at: [facility], [address] [place] [address] [place] [address] CLIA# [id number] Gas Operator: Mat Wolfe MD Performed By: #### 6 6121-5 #### [facility] CLIA [id number] [address] [place] [address] [place] GROSS DESCRIPTION A. Gallbladder [facility] Comment on above: Order Comment: Speci men Type: TISSUE SPECIMEN Ordering Facility: [facility] Address: [address] [place] [address] Result Comment: Rece ived in formalin labeled gallbladder is a 4.5 x 2.7 x 1.4 cm cholecystectomy specimen. The serosal surface is martinez-hernandez green and wrinkled with the exception of the cauterized hepatic bed, which demonstrates a transmural defect located 0.5 cm from the cystic duct margin. Opening of the gallbladder reveals brown-green, viscous bile. No calculi are present. The gallbladder mucosa is green-hernandez brown and velvety with an average wall thickness of 0.2 cm. No polyps or mass lesions are identified. The cystic duct margin (en face) and customer service representative teacher sections of the gallbladder wall are submitted in A1. EDUARDO February 26, 2025 11:56 AM Gross examination performed at [facility] Center, [address] [place] [address] Performed By: #### [id number] #### [facility] CLIA [id number] [address] [place] [address] [place] [address] [place] XR CHOLANGIOGRAM INTRAOPon 0 02-25-2025 XR CHOLANGIOGRAM INTRAOP * * *Final Report* * * DATE OF EXAM: Feb 25 2025 3:03PM MDR [id number] - XR CHOLANGIOGRAM INTRAOP / PROCEDURE REASON: LAPAROSCOPIC CHOLECYSTECTOMY W/ GRAMS * * * * Physician Interpretation * * * * HISTORY: Gallbladder disease TECHNIQUE: Fluoroscopic intraoperative intensifier screen images were done. Fluoroscopic Radiation Summary: Plane A, Air Kerma: 2.4 mGy Dose Area Product (DAP): Fluoro time: 0:13 min:sec A single cinematic run of intensifier screen images was acquired. RESULT: Contrast is shown in the biliary tree and flowing into the duodenum. No dilatation or obvious filling defect is seen. IMPRESSION: As in results. Foreign Exchange Position Clerk: PSCB Transcribe Date/Time: Feb 25 2025 3:12P Dictated by : GOLDIE ALDANA MD This examination was interpreted and the report reviewed and electronically signed by: GOLDIE ALDANA MD on Feb 25 2025 3:13PM EST [id number] [facility] CNOVon 02-21-2025 CNOV Office Visit (GENE ) -------- AISSATOU BETTS ([id number]) 1990 F Date Time Provider Department 02/21/25 10:30 AM MICHAEL PRO During your visit today, we recorded the following information about you: Pulse Blood pressure Weight Height 66/minute 135/92 50.4 kg 1.753 m Michael Pro MD 02/21/2025 4:57 PM Signed HISTORY AND PHYSICAL Aissatou Betts 1990 REFERRING PHYSICIAN: No ref. provider found CHIEF COMPLAINT: Consult (concerns for gallbladder, upper right back pain, cramping//) HPI: Aissatou is a 34 year old female with a complaint of right upper quadrant pain. The patient has had symptoms of right upper quadrant pain for 6 months. The symptoms have increased, over the past 4 weeks. The pain does radiate to the back and shoulder. Food does aggravate her symptoms. Alleviating factors include: none. 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 Aissatou is scheduled for surgery on Monday. She had an ultrasound in December that showed biliary sludge but no cholelithiasis. Her renal function has been evaluated and is reportedly good. 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 Additional surgical history includes placement and removal of a power port, tumor excision from the left side of the neck, and a . She denies any current medical issues related to her past conditions. She reports an allergy to cats and denies any medication allergies. The patient is being seen by me today at the request of Pam Yost APRN.CNP for my opinion and advice regarding RUQ pain/biliary colic. SIGNIFICANT MEDICAL PROBLEMS: PAST MEDICAL HISTORY Diagnosis Date Alcohol abuse polysubstance abuse. 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 Depression 10/12/2011 Headache High blood pressure per patient - associated with breathing History of delivery History of Hodgkin's lymphoma Hodgkin's disease 2008 S/p chemo/radiation Hypothyroidism Solitary kidney, congenital pt born with single kidney OPERATIONS: PAST SURGICAL HISTORY Procedure Laterality Date SECTION HX 02/24/2016 COLONOSCOPY SCREENING 2022 HERPES 1 AND 2, IGB+ 2011 NEXPLANON INSERTION Left 04/20/2023 Placed in office PAST SURGICAL HISTORY OF kidney surgery PAST SURGICAL HISTORY OF rectal PAST SURGICAL HISTORY OF 06/09/2009 Left Supraclavicular Lymphnode Excision VSD CLOSURE CURRENT MEDICATIONS: Current Outpatient Medications Medication Sig Dispense Refill levothyroxine (SYNTHROID) 75 mcg tablet Take 1 tablet by mouth daily before breakfast. 90 tablet 1 SUMAtriptan (IMITREX) 100 mg tablet Take 1 tablet by mouth as needed for migraine headache (see administration instructions) (do not use on more than 2 dyas per week.). May repeat dose after 2 hours if needed. Maximum daily dose is 200 mg per day. No more than 9 doses in a month. 9 tablet 5 omeprazole (PRILOSEC) 40 mg capsule Take 1 capsule by mouth once daily. 30 capsule 1 buprenorphine-nalOXone SL (SUBOXONE) 8-2 mg subl Dissolve 2 tablets under the tongue once daily. D/T hyper active thyroid OTC PRODUCT Vitamin D drops valACYclovir (VALTREX) 500 mg tablet Take 1 tablet by mouth once daily. 90 tablet 1 ondansetron orally disintegrating (ZOFRAN ODT) 4 mg disintegrating tablet Take 1 tablet by mouth every 8 hours as needed for nausea/vomiting. 30 tablet 11 zinc sulfate 220 mg (50 mg zinc) capsule Take 1 capsule by mouth once daily for 21 days. 21 capsule 0 etonogestrel (NEXPLANON) subdermal implant 68 mg 1 Each by SUBDERMAL route as directed. 1 Each 0 VITAMIN B-12 500 mcg tab tab(s) Take 1 tablet by mouth once daily. No current facility-administered medications for this visit. ALLERGIES: Atorvastatin, Cats, Droperidol, Laxative Pill, Meperidine, and Sennosides PERSONAL HISTORY: SOCIAL HISTORY[1] FAMILY HISTORY: FAMILY HISTORY Problem Relation Age of Onset Hypertension Mother other (depresssion) Mother No Known Problems Father Lung Cancer Maternal Grandfather other (ulcerative colitis) Paternal Grandmother Diabetes Maternal Aunt REVIEW OF SYMPTOMS: The review of systems data was entered by the nurse and reviewed by me There are no exam notes on file for this visit. PHYSICAL EXAMINATION: General: The patient is 34 year old female, well nourished, well hydrated in no acute distress. The patient is oriented to time, place, and person. VITALS: Blood pressure 135/92, pulse 66, height 17 (more content not included)... Normal [facility] 02-21-2025 [facility] Telephone ([facility]) -------- AISSATOU BETTS ([id number]) 1990 F Date Time Provider Department 02/21/25 MICHAEL PRO [facility] During your visit today, we recorded the following information about you: Nellie Moses LPN 02/21/2025 2:31 PM Signed Patient calling in stating she saw you today and is in a lot of pain and could not remember what you said regarding what she can take since she is on suboxone. Patient is requesting a call back with recommendation. Nellie Moses LPN Allergies As of Date: 02/21/2025 Noted Allergy Reaction ATORVASTATIN 07/03/2015 16 - Unknown CATS 10/27/2010 12 - Shortness of Breath DROPERIDOL 08/06/2012 10 - Anaphylaxis LAXATIVE PILL 09/25/2019 8 - GI Upset MEPERIDINE 07/03/2015 16 - Unknown SENNOSIDES 09/25/2019 14 - Other: See Comments Date Reviewed: 02/21/2025 Reviewed by: Hanny Shepard MA - Fully Assessed Prescriptions as of 02/26/2025 - oxyCODONE-acetaminophen (PERCOCET) 5-325 mg tablet Take 1 tablet by mouth four times a day as needed for up to 3 days. FOR PAIN. - levothyroxine (SYNTHROID) 75 mcg tablet Take 1 tablet by mouth daily before breakfast. - SUMAtriptan (IMITREX) 100 mg tablet Take 1 tablet by mouth as needed for migraine headache (see administration instructions) (do not use on more than 2 dyas per week.). May repeat dose after 2 hours if needed. Maximum daily dose is 200 mg per day. No more than 9 doses in a month. - omeprazole (PRILOSEC) 40 mg capsule Take 1 capsule by mouth once daily. - buprenorphine-nalOXone SL (SUBOXONE) 8-2 mg subl Dissolve 2 tablets under the tongue once daily. D/T hyper active thyroid - OTC PRODUCT Vitamin D drops - valACYclovir (VALTREX) 500 mg tablet Take 1 tablet by mouth once daily. - ondansetron orally disintegrating (ZOFRAN ODT) 4 mg disintegrating tablet Take 1 tablet by mouth every 8 hours as needed for nausea/vomiting. - zinc sulfate 220 mg (50 mg zinc) capsule Take 1 capsule by mouth once daily for 21 days. - etonogestrel (NEXPLANON) subdermal implant 68 mg 1 Each by SUBDERMAL route as directed. - VITAMIN B-12 500 mcg tab tab(s) Take 1 tablet by mouth once daily. Meds Comments as of 03/23/2013: Pt. Denies taking any home medications Problem List As Of Date 02/21/2025 Noted Resolved Hodgkin lymphoma (HCC) [C81.90] 10/22/2010 Backache, unspecified [M54.9] 04/19/2011 Cervicalgia [M54.2] 04/19/2011 Depression [F32.A] 10/12/2011 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] 2011 Decreased hearing [H91.90] Bipolar 1 disorder (HCC) [F31.9] Left flank pain [R10.9] 02/19/2014 07/31/2018 Pyelonephritis [N12] 02/19/2014 09/12/2023 Substance abuse (HCC) [F19.10] 02/19/2014 DAQUAN (acute kidney injury) (HCC) [N17.9] 03/27/2014 09/10/2023 Nausea and vomiting [R11.2] 03/27/2014 07/31/2018 Numbness [R20.0] 06/28/2014 Trichomoniasis [A59.9] 07/31/2018 History of imperforate anus [Z87.738] 07/31/2018 Other specified hypothyroidism [E03.8] 07/31/2018 History of delivery [Z98.891] 07/31/2018 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] 07/31/2018 UTI (urinary tract infection) in , ant*07/31/2018 Chronic hepatitis C without hepatic coma (HCC) *07/31/2018 Iron deficiency anemia [D50.9] 07/31/2018 Social problem [Z60.9] 07/31/2018 History of delivery [Z87.51] 07/31/2018 Tobacco use disorder [F17.200] 07/31/2018 Buprenorphine maintenance treatment affecting p*07/31/2018 Supervision of high risk , antepartum *07/31/2018 Dizziness [R42] 12/21/2021 Acute kidney injury (HCC) [N17.9] 09/10/2023 Anxiety [F41.9] 09/10/2023 09/12/2023 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 PTSD (post-traumatic stress disorder) [F43.10] 09/11/2023 Zinc deficiency [E60] 09/12/2023 Anxiety disorder [F41.9] 11/08/2023 Vesicoureteral reflux with resulting kidney dis*07/11/2024 Vitamin D deficiency [E55.9] 03/04/2022 Moderate persistent asthma without complication*11/21/2022 Migraine [G43.909] 03/04/2022 Malignant neoplasm (HCC) [C80.1] 07/11/2024 09/17/2024 Idiopathic peripheral neuropathy [G60.9] 07/16/2015 Hydronephrosis of left kidney [N13.30] 03/04/2022 Hx of adenomatous polyp of colon [Z86.0101] 01/17/2020 History of manic depressive disorder [Z86.59] 07/11/2024 Drug abuse, daily use (HCC) [F19.10] 02/24/2016 Anemia of renal disease [N18.9, D63.1] 04/30/2016 Deafness in left ear [H91.92] 07/11/2024 Encounter Status:Closed by LOPEZ MOSESSSICA on 02/26/[address] [facility] [id number] 02-18-2025 [id number] HNO ID: [id number] Author: CONNIE FERGUSON RN Service: ? Author Type: Registered Nurse Type: [id number] Filed: 02/18/2025 09:34 Note Text: It is normal to experience some burning with urination and bleeding for the next few days. Urinary frequency and urgency are not uncommon. It is important to stay hydrated during this time. If you pass any clots bigger than the size of pea or notice you are experiencing heavy bleeding, please let the doctor know. If you experience any signs of infection- fever, chills, foul smelling urine etc please go to the ER. If you are experiencing any severe pain or persistent nausea and vomiting, please go to the ER. Normal [facility] ANES POSTPROC EVALon 025 ANES POSTPROC EVAL HNO ID: [id number] Author: KIMMY JANG MD Service: Anesthesiology Author Type: Physician Type: Anesthesia Postprocedure Evaluation Filed: 02/18/2025 12:18 Note Text: POST ANESTHESIA EVALUATION NOTE : 1990 Procedure Summary Date: 02/18/25 Room / Location: [address] Anesthesia Start: 845 Anesthesia Stop: 911 Procedure: CYSTOSCOPY, RETROPYELOGRAM (Bladder) Diagnosis: Other hydronephrosis (Other hydronephrosis [N13.39]) Surgeons: Juany Anderson MD Responsible Provider: Kimmy Jang MD Anesthesia Type: MAC ASA Status: 3 Anesthesia Type: MAC Last Vitals Vitals Value Taken Time BP 119/80 02/18/25 09:41 Temp 36.1 ?C (97 ?F) 02/18/25 09:11 Pulse 50 02/18/25 09:41 Resp 17 02/18/25 09:41 SpO2 100 % 02/18/25 09:48 Vitals shown include unfiled device data. Post Anesthesia Patient Status Patient Evaluation: PACU. PACU/ICU Patient Condition: stable. Anticipated Disposition: phase 2 then home. Neurological Status: aware and responsive. Pulmonary Status: breathing comfortably on room air Airway Control: returned to baseline unsupported. Cardiovascular Status: stable. Pain Management: clinically adequate Postoperative Hydration: acceptable. Intraoperative Events: no significant anesthesia events Post Operative Nausea/Vomiting Status: no significant post operative nausea or vomiting Recommendation: continue current plan of care. Anesthesia Observations No Documentation SIGNATURE: Kimmy Jang MD PATIENT NAME: Aissatou Betts DATE: February 18, 2025 TIME: 12:18 PM CSN: [id number] Normal [facility] ANES PRE-OPon 02-18-2025 ANES PRE-OP HNO ID: [id number] Author: KIMMY JANG MD Service: Anesthesiology Author Type: Physician Type: Anesthesia Preprocedure Evaluation Filed: 02/18/2025 08:37 Note Text: ANESTHESIOLOGY DAY OF SURGERY NOTE : 1990 Procedure Information Date/Time: 02/18/2545 Procedures: CYSTOSCOPY, RETROPYELOGRAM (Bladder) URETEROSCOPY RIGID (Left: Ureter) INSERTION STENT DOUBLE J (Left: Ureter) Location: [place] [address] / [facility] Surgeons: Juany Anderson MD Estimated body mass index is 15.95 kg/m? as calculated from the following: Height as of this encounter: 175.3 cm (5' 9). Weight as of this encounter: 49 kg (108 lb). Most recent hematocrit and potassium results: Hematocrit 34.7 01/24/2025 Potassium 3.7 12/20/2024 Relevant Problems CARDIO (+) Migraine ENDO (+) Other specified hypothyroidism -RENAL (+) Acute kidney injury (+) Anemia of renal disease (+) Chronic hepatitis C without hepatic coma (HCC) (+) Congenital solitary kidney (+) Hydronephrosis of left kidney NEURO-PSYCH (+) Migraine PULMONARY (+) Moderate persistent asthma without complication (HCC) I - PHYSICAL EVALUATION AIRWAY Patient intubated: No. Tracheostomy tube not present Mallampati: II. TM distance: >3 FB. Neck ROM: full ROM without neurological symptoms. Mouth openin FB. Short neck: no. Thick neck: no DENTAL Dental findings: teeth intact and missing tooth/teeth. Additional exam findings: no II - ANESTHESIA PLAN ASA Score: 3 Anesthetic Plan: MAC The patient is not a current smoker. NPO Status: adequate Anesthetic plan additional comments: Hx hodgkins lymphoma s/p chemo and radiation at 18yo Solitary kidney with hydronephrosis Polysubstance abuse in recovery on suboxone - took yesterday Baseline nausea given zofran in preop. Monitoring Plan Monitoring plan: standard ASA. Post Procedure Analgesic Plan Postoperative analgesic plan: multimodal analgesia and parenteral or oral opioids. Informed Consent Anesthetic risks, benefits, alternatives, personnel and consent discussed: yes. Patient / Responsible Republican agrees to proceed: yes Patient / Surrogate agrees to blood products: blood products not planned Significant changes in the patient condition since the History and Physical, not otherwise documented in primary service progress note: no. Potential Anesthesia issues that may suggest increased risk of complications or contraindication to planned procedure: none. Vitals Value Taken Time BP 109/75 02/18/25 07:24 Pulse 58 02/18/25 07:24 Resp 16 02/18/25 07:24 Temp 37 ?C (98.6 ?F) 02/18/25 07:24 SpO2 99 % 02/18/25 07:24 Facility-Administered Medications as of 02/18/2025 Medication Dose Route Frequency lactated ringers iv infusion 5-30 mL/hr INTRAVENOUS CONTINUOUS ondansetron (PF) 4 mg injection (ZOFRAN) 4 mg INTRAVENOUS ONCE Outpatient Medications as of 02/18/2025 Medication Sig levothyroxine (SYNTHROID) 75 mcg tablet Take 1 tablet by mouth daily before breakfast. SUMAtriptan (IMITREX) 100 mg tablet Take 1 tablet by mouth as needed for migraine headache (see administration instructions) (do not use on more than 2 dyas per week.). May repeat dose after 2 hours if needed. Maximum daily dose is 200 mg per day. No more than 9 doses in a month. omeprazole (PRILOSEC) 40 mg capsule Take 1 capsule by mouth once daily. buprenorphine-nalOXone SL (SUBOXONE) 8-2 mg subl Dissolve 2 tablets under the tongue once daily. D/T hyper active thyroid OTC PRODUCT Vitamin D drops valACYclovir (VALTREX) 500 mg tablet Take 1 tablet by mouth once daily. ondansetron orally disintegrating (ZOFRAN ODT) 4 mg disintegrating tablet Take 1 tablet by mouth every 8 hours as needed for nausea/vomiting. zinc sulfate 220 mg (50 mg zinc) capsule Take 1 capsule by mouth once daily for 21 days. etonogestrel (NEXPLANON) subdermal implant 68 mg 1 Each by SUBDERMAL route as directed. VITAMIN B-12 500 mcg tab tab(s) Take 1 tablet by mouth once daily. [] iv contrast (will be provided with radiology test) CT Chest ABD/PEL-Inject, intravenously, once for 1 dose.No IV access, insert saline lock prior to the beginning of sedation, infusion, injection of imaging exam. Discontinue saline lock post exam. If Pt. has a central line or IVAD, may access for administration according to line specific nursing protocol. Once exam is complete flush line and de-access according to line specific nursing protocol in the CT contrast administration guidelines link. [] enteric contrast (will be provided with radiology test) For CT CHESTABD/PEL W IVCON Routine order Administer, As Directed One Time Only, via Oral, Rectal, both Oral and Rectal, Enteric Tube, Stoma or Indwelling Catheter, Enteric Contrast as designated per enteric contrast guidelines I have interviewed and examined the patient. I have reviewed the medical record and/or the pre-anesthesia evaluation, pertinent labs, and (more content not included)... Normal [facility] 02-18-2025 [facility] Telephone ([place]) -------- AISSATOU BETTS ([id number]) 1990 F Date Time Provider Department 02/18/25 JUANY ANDERSON During your visit today, we recorded the following information about you: Juany Anderson MD 02/18/2025 9:09 AM Signed S/p cystoscopy; unable to do retrograde due to left cross-trigonal reimplantation - no follow up MD Mulu Walsh Monica 02/19/2025 9:11 AM Signed Spoke to patient she is doing ok. Still a little sore. Made her aware that if she has any concerns to call the office. Emily Becerra Allergies As of Date: 02/18/2025 Noted Allergy Reaction ATORVASTATIN 07/03/2015 16 - Unknown CATS 10/27/2010 12 - Shortness of Breath DROPERIDOL 08/06/2012 10 - Anaphylaxis LAXATIVE PILL 09/25/2019 8 - GI Upset MEPERIDINE 07/03/2015 16 - Unknown SENNOSIDES 09/25/2019 14 - Other: See Comments Date Reviewed: 02/18/2025 Reviewed by: Connie Ferguson RN - Fully Assessed Reason for Visit: Surgical Followup [104] Prescriptions as of 02/19/2025 - levothyroxine (SYNTHROID) 75 mcg tablet Take 1 tablet by mouth daily before breakfast. - SUMAtriptan (IMITREX) 100 mg tablet Take 1 tablet by mouth as needed for migraine headache (see administration instructions) (do not use on more than 2 dyas per week.). May repeat dose after 2 hours if needed. Maximum daily dose is 200 mg per day. No more than 9 doses in a month. - omeprazole (PRILOSEC) 40 mg capsule Take 1 capsule by mouth once daily. - buprenorphine-nalOXone SL (SUBOXONE) 8-2 mg subl Dissolve 2 tablets under the tongue once daily. D/T hyper active thyroid - OTC PRODUCT Vitamin D drops - valACYclovir (VALTREX) 500 mg tablet Take 1 tablet by mouth once daily. - ondansetron orally disintegrating (ZOFRAN ODT) 4 mg disintegrating tablet Take 1 tablet by mouth every 8 hours as needed for nausea/vomiting. - zinc sulfate 220 mg (50 mg zinc) capsule Take 1 capsule by mouth once daily for 21 days. - etonogestrel (NEXPLANON) subdermal implant 68 mg 1 Each by SUBDERMAL route as directed. - VITAMIN B-12 500 mcg tab tab(s) Take 1 tablet by mouth once daily. Meds Comments as of 03/23/2013: Pt. Denies taking any home medications Problem List As Of Date 02/18/2025 Noted Resolved Hodgkin lymphoma (HCC) [C81.90] 10/22/2010 Backache, unspecified [M54.9] 04/19/2011 Cervicalgia [M54.2] 04/19/2011 Depression [F32.A] 10/12/2011 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] 2011 Decreased hearing [H91.90] Bipolar 1 disorder (HCC) [F31.9] Left flank pain [R10.9] 02/19/2014 07/31/2018 Pyelonephritis [N12] 02/19/2014 09/12/2023 Substance abuse (HCC) [F19.10] 02/19/2014 DAQUAN (acute kidney injury) (HCC) [N17.9] 03/27/2014 09/10/2023 Nausea and vomiting [R11.2] 03/27/2014 07/31/2018 Numbness [R20.0] 06/28/2014 Trichomoniasis [A59.9] 07/31/2018 History of imperforate anus [Z87.738] 07/31/2018 Other specified hypothyroidism [E03.8] 07/31/2018 History of delivery [Z98.891] 07/31/2018 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] 07/31/2018 UTI (urinary tract infection) in , ant*07/31/2018 Chronic hepatitis C without hepatic coma (HCC) *07/31/2018 Iron deficiency anemia [D50.9] 07/31/2018 Social problem [Z60.9] 07/31/2018 History of delivery [Z87.51] 07/31/2018 Tobacco use disorder [F17.200] 07/31/2018 Buprenorphine maintenance treatment affecting p*07/31/2018 Supervision of high risk , antepartum *07/31/2018 Dizziness [R42] 12/21/2021 Acute kidney injury (HCC) [N17.9] 09/10/2023 Anxiety [F41.9] 09/10/2023 09/12/2023 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 PTSD (post-traumatic stress disorder) [F43.10] 09/11/2023 Zinc deficiency [E60] 09/12/2023 Anxiety disorder [F41.9] 11/08/2023 Vesicoureteral reflux with resulting kidney dis*07/11/2024 Vitamin D deficiency [E55.9] 03/04/2022 Moderate persistent asthma without complication*11/21/2022 Migraine [G43.909] 03/04/2022 Malignant neoplasm (HCC) [C80.1] 07/11/2024 09/17/2024 Idiopathic peripheral neuropathy [G60.9] 07/16/2015 Hydronephrosis of left kidney [N13.30] 03/04/2022 Hx of adenomatous polyp of colon [Z86.0101] 01/17/2020 History of manic depressive disorder [Z86.59] 07/11/2024 Drug abuse, daily use (HCC) [F19.10] 02/24/2016 Anemia of renal disease [N18.9, D63.1] 04/30/2016 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 Very dilute urine samples, as indicated by a low specific gravity, may not contain customer service representative teacher levels of hCG. This test detects intact hCG only. This test does not reliably detect hCG degradation products, including free-beta subunit and beta-core fragment. Therefore, this test may show reduced reactivity in urine after 8 weeks gestation. A number of conditions other than , including trophoblastic disease and certain non-trophoblastic neoplasms cause elevated levels of hCG. As with any assay employing mouse antibodies, the possibility exists for interference by human anti-mouse antibodies (HAMA) in the specimen. The test provides a presumptive diagnosis for . Performed By: #### 2 106-3 ####[facility] [id number] [place] [address] [place] NURSING PROGon 02-18-2025 NURSING PROG HNO ID: [id number] Author: CONNIE FERGUSON RN Service: ? Author Type: Registered Nurse Type: Nursing Progress Note Filed: 02/18/2025 10:06 Note Text: Patient sat at bedside and dressed self. Patient transferred to wheelchair independently and discharged from PACU in stable condition. Normal [facility] OPERATIVE NOon 02-18-2025 OPERATIVE NO HNO ID: [id number] Author: JUANY ANDERSON MD Service: Urology Author Type: Physician Type: Operative Report Filed: 02/18/2025 11:29 Note Text: [facility] - Operative Report AISSATOU BETTS : 1990 AGE: 34. SEX: F PATIENT TYPE: A HOSP SVC: URO LOCATION: [facility] ATTENDING PHYSICIAN: Juany Anderson MD CSN NUMBER: [id number] DATE OF SURGERY/PROCEDURE: 02/18/2025 INCISION/PROCEDURE START TIME: 8:54 AM INCISION CLOSE/PROCEDURE END TIME: 9:03 AM PREOPERATIVE DIAGNOSIS: Left hydronephrosis, chronic renal insufficiency. POSTOPERATIVE DIAGNOSIS: Left hydronephrosis, chronic renal insufficiency. SURGEON: Juany Anderson MD JAILOR: None. SURGERY/PROCEDURE: Cystoscopy. ANESTHESIA: General . ESTIMATED BLOOD LOSS: None. FLUIDS: Per Anesthesia note. ANTIBIOTICS: Per Anesthesia note. INDICATION FOR PROCEDURE: This is a 34-year-old female with a complex medical history including congenital solitary kidney status post left cross-trigonal reimplantation as a child who has had chronic hydronephrosis and abdominal pain. I did a MAG 3 renal scan preoperatively, which showed no evidence of obstruction. The goal today was just a cystoscopy and retrograde pyelogram to confirm the above. DESCRIPTION OF PROCEDURE: The patient was brought to the operative suite. Time-out was performed. She was placed under MAC anesthetic without difficulty and prepped and draped in a normal sterile fashion, at which time a 30-degree scope and 20- Welsh sheath were inserted through the urethra into the bladder. Ricks cystoscopy was carried out. There were no gross abnormalities, masses, free stones, or tumors noted. The patient was noted to have a left cross-trigonal reimplantation with the orifice near her right guerda-trigone. Given the angle, I could not get the cone- tipped and inject contrast. I then passed a 0.035 Glidewire and attempted to pass a [place], but because of the severe angle, it was not going easily, so I stopped. The bladder was subsequent drained. The patient awoke and was brought to the recovery room in stable condition. Juany Anderson MD TFB:[id number] Normal [facility] XR ABDOMEN 1V SUPINEon 02-18 XR ABDOMEN 1V SUPINE * * *Final Report* * * DATE OF EXAM: Feb 18 2025 9:18AM [id number] [id number] - XR ABDOMEN 1V SUPINE / PROCEDURE REASON: surgery * * * * Physician Interpretation * * * * FLUOROSCOPY AND IMAGING CLINICAL INDICATION: Chronic hydronephrosis. Cystoscopy. COMPARISON: None FINDINGS: 1 fluoroscopic images for intraoperative fluor scopic guidance. Fluoroscopic Radiation Summary: Plane A, Air Kerma: 0.2955 mGy Dose Area Product (DAP): 0.1022 mGy*cm2 Fluoro time: 2.4 min:sec Number of image acquisitions: 1 IMPRESSION: Documentation of intraoperative fluoroscopic guidance as above. Correlate with operative report. Foreign Exchange Position Clerk: COLBY Transcribe Date/Time: Feb 18 2025 2:32P Dictated by : HOWARD POPE MD This examination was interpreted and the report reviewed and electronically signed by: HOWARD POPE MD on Feb 18 2025 2:34PM EST [id number] Normal [facility] Reynaldo 02-17-2025 [facility] [place] Telephone (STFLF) -------- AISSATOU BETTS ([id number]) 1990 F Date Time Provider Department 02/17/25 PAM YOST STFLF During your visit today, we recorded the following information about you: Aicha Isabel MA 02/17/2025 2:37 PM Signed Faxed forms to medical records requesting records from 12/24/2024 to present day. Scanned into [employer]. Allergies As of Date: 02/17/2025 Noted Allergy Reaction ATORVASTATIN 07/03/2015 16 - Unknown CATS 10/27/2010 12 - Shortness of Breath DROPERIDOL 08/06/2012 10 - Anaphylaxis LAXATIVE PILL 09/25/2019 8 - GI Upset MEPERIDINE 07/03/2015 16 - Unknown SENNOSIDES 09/25/2019 14 - Other: See Comments Date Reviewed: 02/06/2025 Reviewed by: Albania Montelongo RN - Fully Assessed Reason for Visit: Release Of Medical Records [2017] Cmt: Xtellus. Prescriptions as of 02/27/2025 - oxyCODONE-acetaminophen (PERCOCET) 5-325 mg tablet Take 1 tablet by mouth four times a day as needed for up to 3 days. FOR PAIN. - levothyroxine (SYNTHROID) 75 mcg tablet Take 1 tablet by mouth daily before breakfast. - SUMAtriptan (IMITREX) 100 mg tablet Take 1 tablet by mouth as needed for migraine headache (see administration instructions) (do not use on more than 2 dyas per week.). May repeat dose after 2 hours if needed. Maximum daily dose is 200 mg per day. No more than 9 doses in a month. - omeprazole (PRILOSEC) 40 mg capsule Take 1 capsule by mouth once daily. - buprenorphine-nalOXone SL (SUBOXONE) 8-2 mg subl Dissolve 2 tablets under the tongue once daily. D/T hyper active thyroid - OTC PRODUCT Vitamin D drops - valACYclovir (VALTREX) 500 mg tablet Take 1 tablet by mouth once daily. - ondansetron orally disintegrating (ZOFRAN ODT) 4 mg disintegrating tablet Take 1 tablet by mouth every 8 hours as needed for nausea/vomiting. - zinc sulfate 220 mg (50 mg zinc) capsule Take 1 capsule by mouth once daily for 21 days. - etonogestrel (NEXPLANON) subdermal implant 68 mg 1 Each by SUBDERMAL route as directed. - VITAMIN B-12 500 mcg tab tab(s) Take 1 tablet by mouth once daily. Meds Comments as of 03/23/2013: Pt. Denies taking any home medications Problem List As Of Date 02/17/2025 Noted Resolved Hodgkin lymphoma (HCC) [C81.90] 10/22/2010 Backache, unspecified [M54.9] 04/19/2011 Cervicalgia [M54.2] 04/19/2011 Depression [F32.A] 10/12/2011 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] 2011 Decreased hearing [H91.90] Bipolar 1 disorder (HCC) [F31.9] Left flank pain [R10.9] 02/19/2014 07/31/2018 Pyelonephritis [N12] 02/19/2014 09/12/2023 Substance abuse (HCC) [F19.10] 02/19/2014 DAQUAN (acute kidney injury) (HCC) [N17.9] 03/27/2014 09/10/2023 Nausea and vomiting [R11.2] 03/27/2014 07/31/2018 Numbness [R20.0] 06/28/2014 Trichomoniasis [A59.9] 07/31/2018 History of imperforate anus [Z87.738] 07/31/2018 Other specified hypothyroidism [E03.8] 07/31/2018 History of delivery [Z98.891] 07/31/2018 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] 07/31/2018 UTI (urinary tract infection) in , ant*07/31/2018 Chronic hepatitis C without hepatic coma (HCC) *07/31/2018 Iron deficiency anemia [D50.9] 07/31/2018 Social problem [Z60.9] 07/31/2018 History of delivery [Z87.51] 07/31/2018 Tobacco use disorder [F17.200] 07/31/2018 Buprenorphine maintenance treatment affecting p*07/31/2018 Supervision of high risk , antepartum *07/31/2018 Dizziness [R42] 12/21/2021 Acute kidney injury (HCC) [N17.9] 09/10/2023 Anxiety [F41.9] 09/10/2023 09/12/2023 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 PTSD (post-traumatic stress disorder) [F43.10] 09/11/2023 Zinc deficiency [E60] 09/12/2023 Anxiety disorder [F41.9] 11/08/2023 Vesicoureteral reflux with resulting kidney dis*07/11/2024 Vitamin D deficiency [E55.9] 03/04/2022 Moderate persistent asthma without complication*11/21/2022 Migraine [G43.909] 03/04/2022 Malignant neoplasm (HCC) [C80.1] 07/11/2024 09/17/2024 Idiopathic peripheral neuropathy [G60.9] 07/16/2015 Hydronephrosis of left kidney [N13.30] 03/04/2022 Hx of adenomatous polyp of colon [Z86.0101] 01/17/2020 History of manic depressive disorder [Z86.59] 07/11/2024 Drug abuse, daily use (HCC) [F19.10] 02/24/2016 Anemia of renal disease [N18.9, D63.1] 04/30/2016 Deafness in left ear [H91.92] 07/11/2024 Encounter Status:Closed by AICHA ISABEL MA on 02/27/[address] [facility] NM RENAL FLOW/FXN W PHARMon 02-17-2025 NM RENAL FLOW/FXN W PHARM * * *Final Report* * * DATE OF EXAM: Feb 17 2025 4:06PM MARTITA 0035 - NM RENAL FLOW/FXN W PHARM / PROCEDURE REASON: multiple diagnoses * * * * Physician Interpretation * * * * DIURETIC RENAL SCAN: CLINICAL HISTORY: Hydronephrosis TECHNIQUE: 10.3 mCi Tc 99m MAG3 IV. Medications and allergies reviewed. 40 mg Lasix IV Imaging of the kidneys for flow and function obtained in posterior views. RESULT: RENAL PERFUSION: There is prompt perfusion to the left kidney. RENAL FUNCTION: Right kidney absent. There is satisfactory uptake and normal rate of parenchymal transit by the left kidney. There is some spontaneous drainage of activity by the left kidney with accumulation in the left collecting system prior to Lasix. Following Lasix there is further almost complete clearance with no evidence of obstruction. Post Lasix t- half clearance time is 5.6 minutes on the left, which does not suggest obstruction. IMPRESSION: Left kidney: Satisfactory flow and function. Delayed drainage clears adequately with Lasix. No scintigraphic evidence of significant obstruction Foreign Exchange Position Clerk: COLBY Transcribe Date/Time: Feb 17 2025 8:24P Dictated by : SAULO CARMICHAEL MD This examination was interpreted and the report reviewed and electronically signed by: SAULO CARMICHAEL MD on Feb 17 2025 9:32PM EST [id number] Normal [facility] NM Views for blood flow and kidney function W diuretic Matt 02-17-2025 IMPRESSION: Left kidney: Satisfactory flow and function. Delayed drainage clears adequately with Lasix. No scintigraphic evidence of significant obstruction Foreign Exchange Position Clerk: COLBY Transcribe Date/Time: Feb 17 2025 8:24P Dictated by : SAULO CARMICHAEL MD This examination was interpreted and the report reviewed and electronically signed by: SAULO CARMICHAEL MD on Feb 17 2025 9:32PM EST [facility] * * *Final Report* * * DATE OF EXAM: Feb 17 2025 4:06PM CAN 0035 - NM RENAL FLOW/FXN W PHARM / PROCEDURE REASON: multiple diagnoses * * * * Physician Interpretation * * * * DIURETIC RENAL SCAN: CLINICAL HISTORY: Hydronephrosis TECHNIQUE: 10.3 mCi Tc 99m MAG3 IV. Medications and allergies reviewed. 40 mg Lasix IV Imaging of the kidneys for flow and function obtained in posterior views. RESULT: RENAL PERFUSION: There is prompt perfusion to the left kidney. RENAL FUNCTION: Right kidney absent. There is satisfactory uptake and normal rate of parenchymal transit by the left kidney. There is some spontaneous drainage of activity by the left kidney with accumulation in the left collecting system prior to Lasix. Following Lasix there is further almost complete clearance with no evidence of obstruction. Post Lasix t- half clearance time is 5.6 minutes on the left, which does not suggest obstruction. [facility] * * *Final Report* * * DATE OF EXAM: Feb 17 2025 4:06PM AKN 0035 - NM RENAL FLOW/FXN W PHARM / PROCEDURE REASON: multiple diagnoses * * * * Physician Interpretation * * * * DIURETIC RENAL SCAN: CLINICAL HISTORY: Hydronephrosis TECHNIQUE: 10.3 mCi Tc 99m MAG3 IV. Medications and allergies reviewed. 40 mg Lasix IV Imaging of the kidneys for flow and function obtained in posterior views. RESULT: RENAL PERFUSION: There is prompt perfusion to the left kidney. RENAL FUNCTION: Right kidney absent. There is satisfactory uptake and normal rate of parenchymal transit by the left kidney. There is some spontaneous drainage of activity by the left kidney with accumulation in the left collecting system prior to Lasix. Following Lasix there is further almost complete clearance with no evidence of obstruction. Post Lasix t- half clearance time is 5.6 minutes on the left, which does not suggest obstruction. IMPRESSION IMPRESSION: Left kidney: Satisfactory flow and function. Delayed drainage clears adequately with Lasix. No scintigraphic evidence of significant obstruction Foreign Exchange Position Clerk: COLBY Transcribe Date/Time: Feb 17 2025 8:24P Dictated by : SAULO CARMICHAEL MD This examination was interpreted and the report reviewed and electronically signed by: SAULO CARMICHAEL MD on Feb 17 2025 9:32PM EST [facility] Radiology Study observation (narrative) Cherelle davidson [facility] Views for blood flow and kidney function W diuretic IVOrdered By: [facility]cf Provider on 02-17-2025 [facility] CNOVon 02-06-2025 CNOV Office Visit (UROLSF ) -------- BETTSAISSATOU ([id number]) 1990 F Date Time Provider Department 02/06/25 2:15 PM JUANY ANDERSON UROLSF During your visit today, we recorded the following information about you: Weight Height 49 kg 1.753 m Juany Anderson MD 02/06/2025 2:51 PM Addendum ESTABLISHED PATIENT OFFICE VISIT HISTORY OF PRESENT ILLNESS No chief complaint on file. Aissatou S Alpesh is a 34 year old with a past medical history of hepatitis C(treated,) migraine, hypothyroidism (on levothyroxine). Substance use disorder (on Suboxone and gabapentin), Hodgkin disease (s/p chemo and radioation in 2008) , CKD in the setting of congenital solitary kidney, chronic hydro on the left side (follow with urology), reccurent UTI deafness in left ear, bioplar disorder (not on current treatment, never lithium) ADHD, PTSD?presenting to establish care for chronic kidney disease. Survivor of stage 4 Hodgekins Lymphoma in remission (status post radiation and chemotherapy) Previous pt of [facility] then saw Dr Margaret Perla @ 03/2024 Pt having hot/cold flashes, nausea, left low back upper buttock pain, unintended wt loss LAB RESULTS Creatinine Date Value Ref Range Status 12/20/2024 2.16 (H) 0.58 - 0.96 mg/dL Final Color (no units) Date Value 09/10/2023 Yellow 10/13/2014 Yellow Clarity (no units) Date Value 09/10/2023 Slightly Cloudy Glucose, Urine Date Value 09/10/2023 Trace 07/31/2018 neg mg/dL Bilirubin, Urine (no units) Date Value 09/10/2023 Negative 10/13/2014 Negative Ketones, Urine (no units) Date Value 09/10/2023 Negative 10/13/2014 Negative Specific Ramsay, Ur (no units) Date Value 09/10/2023 1.015 10/13/2014 1.025 Hemoglobin/Blood,Ur Date Value 09/10/2023 1+ 10/13/2014 Trace pH, Urine (no units) Date Value 09/10/2023 6.5 10/13/2014 6.0 Protein, Urine Date Value 09/10/2023 Comment: Visible blood causes falsely elevated results for analyte Protein. Due to this limitation, Protein will not be reported for patients whose urine contains visible blood. 07/31/2018 100 mg/dL Urobilinogen (no units) Date Value 09/10/2023 0.2 EU/dL 10/13/2014 0.2 Nitrites (no units) Date Value 09/10/2023 Negative 10/13/2014 Positive Leukest (no units) Date Value 10/13/2014 Small Leuk Esterase (no units) Date Value 09/10/2023 1+ ALLERGIES Allergen Reactions Atorvastatin Unknown Cats Shortness of Breath Droperidol Anaphylaxis Laxative Pill GI Upset Meperidine Unknown Sennosides Other: See Comments MEDICATIONS: levothyroxine (SYNTHROID) 75 mcg tablet Take 1 tablet by mouth daily before breakfast. SUMAtriptan (IMITREX) 100 mg tablet Take 1 tablet by mouth as needed for migraine headache (see administration instructions) (do not use on more than 2 dyas per week.). May repeat dose after 2 hours if needed. Maximum daily dose is 200 mg per day. No more than 9 doses in a month. omeprazole (PRILOSEC) 40 mg capsule Take 1 capsule by mouth once daily. buprenorphine-nalOXone SL (SUBOXONE) 8-2 mg subl Dissolve 2 tablets under the tongue once daily. D/T hyper active thyroid OTC PRODUCT Vitamin D drops valACYclovir (VALTREX) 500 mg tablet Take 1 tablet by mouth once daily. ondansetron orally disintegrating (ZOFRAN ODT) 4 mg disintegrating tablet Take 1 tablet by mouth every 8 hours as needed for nausea/vomiting. zinc sulfate 220 mg (50 mg zinc) capsule Take 1 capsule by mouth once daily for 21 days. etonogestrel (NEXPLANON) subdermal implant 68 mg 1 Each by SUBDERMAL route as directed. VITAMIN B-12 500 mcg tab tab(s) Take 1 tablet by mouth once daily. REVIEW OF SYSTEMS GENERAL:++ unintentional weight loss, malaise or fevers. NEUROLOGIC: pt is alert and oriented GENITOURINARY: No history of dysuria, frequency or incontinence DIRECTOR TRADING: Negative for abnormal vaginal bleeding, abnormal vaginal discharge HISTORIES PAST MEDICAL HISTORY Diagnosis Date Alcohol abuse polysubstance abuse. 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 Depression 10/12/2011 Headache High blood pressure per patient - associated with breathing History of delivery History of Hodgkin's lymphoma Hodgkin's disease 2008 S/p chemo/radiation Hypothyroidism Solitary kidney, congenital pt born with single kidney FAMILY HISTORY Problem Relation Age of Onset Hypertension Mother other (depresssion) Mother No Known Problems Father Lung Cancer Maternal Grandfather other (ulcerative colitis) Paternal Grandmother Diabetes Maternal Aunt PAST SURGICAL HISTORY Procedure Laterality Date SECTION HX 02/24/2016 COLONOSCOPY SCREENING 2022 HERPES 1 AND 2, IGB+ 2011 NEXPLANON INSERTION Left 04/20/2023 Placed in office PAST SURGICAL HISTORY OF (more content not included)... Normal [facility] CNOVSPon 02-06-2025 CNOVSP Visit (SP) Office (SACHNI) -------- AISSATOU BETTS ([id number]) 1990 F Date Time Provider Department 02/06/25 10:40 AM JUAN R GARCIA During your visit today, we recorded the following information about you: Temperature Pulse Blood pressure Weight 97.9 degrees 76/minute 108/72 48.1 kg Height 1.753 m Juan R Garcia MD 02/06/2025 11:18 AM Signed HISTORY OF PRESENT ILLNESS: Aissatou Betts is a 34 year old female referred for unintentional weight loss. HD stage IV 4210-1140 Had diffuse adenopathy, no B sx at that time, just pruritus. Treated with Trey V in [facility] [place]. Obtained CR HD had diffuse LN involvement, also intestinal and bone marrow involvement. Eating with Ensure, going right through her. No energy. Having hot and cold flashes, no B sx per se. Recent labs ok, chest x ray ok CLINICAL IMPRESSION: Weight loss. History hodgkin lymphoma, doubtful that hodgkins is reason for weight loss RECOMMENDATION/PLAN: 1. CT scans for monitoring 2. Sed rate today 3. Follow up via MyChart Written and verbal health teaching given to patient, patient verbalizes understanding and agrees with treatment plan. PAST MEDICAL HISTORY Diagnosis Date Alcohol abuse polysubstance abuse. 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 Depression 10/12/2011 Headache High blood pressure per patient - associated with breathing History of delivery History of Hodgkin's lymphoma Hodgkin's disease 2008 S/p chemo/radiation Hypothyroidism Solitary kidney, congenital pt born with single kidney PAST SURGICAL HISTORY Procedure Laterality Date SECTION HX 02/24/2016 COLONOSCOPY SCREENING 2022 HERPES 1 AND 2, IGB+ 2011 NEXPLANON INSERTION Left 04/20/2023 Placed in office PAST SURGICAL HISTORY OF kidney surgery PAST SURGICAL HISTORY OF rectal PAST SURGICAL HISTORY OF 06/09/2009 Left Supraclavicular Lymphnode Excision VSD CLOSURE FAMILY HISTORY Problem Relation Age of Onset Hypertension Mother other (depresssion) Mother No Known Problems Father Lung Cancer Maternal Grandfather other (ulcerative colitis) Paternal Grandmother Diabetes Maternal Aunt SOCIAL HISTORY[1] ALLERGIES: ALLERGIES Allergen Reactions Atorvastatin Unknown Cats Shortness of Breath Droperidol Anaphylaxis Laxative Pill GI Upset Meperidine Unknown Sennosides Other: See Comments CURRENT OUTPATIENT MEDICATIONS: levothyroxine (SYNTHROID) 75 mcg tablet Take 1 tablet by mouth daily before breakfast. SUMAtriptan (IMITREX) 100 mg tablet Take 1 tablet by mouth as needed for migraine headache (see administration instructions) (do not use on more than 2 dyas per week.). May repeat dose after 2 hours if needed. Maximum daily dose is 200 mg per day. No more than 9 doses in a month. omeprazole (PRILOSEC) 40 mg capsule Take 1 capsule by mouth once daily. buprenorphine-nalOXone SL (SUBOXONE) 8-2 mg subl Dissolve 2 tablets under the tongue once daily. D/T hyper active thyroid OTC PRODUCT Vitamin D drops valACYclovir (VALTREX) 500 mg tablet Take 1 tablet by mouth once daily. ondansetron orally disintegrating (ZOFRAN ODT) 4 mg disintegrating tablet Take 1 tablet by mouth every 8 hours as needed for nausea/vomiting. zinc sulfate 220 mg (50 mg zinc) capsule Take 1 capsule by mouth once daily for 21 days. etonogestrel (NEXPLANON) subdermal implant 68 mg 1 Each by SUBDERMAL route as directed. VITAMIN B-12 500 mcg tab tab(s) Take 1 tablet by mouth once daily. REVIEW OF SYSTEMS: GENERAL: No fever, night sweats, weight loss or malaise. All other reviewed and negative other than HPI. PHYSICAL EXAMINATION: VITAL SIGNS: BP 108/72 Pulse 76 Temp 97.9 Ht 5' 9 (1.75m) Wt 106 lb (48.1kg) SpO2 88% LMP 04/15/2023 BMI 15.65 kg/(m2). GENERAL APPEARANCE: Well appearing, in no acute distress, alert and oriented x3, well-hydrated, well nourished. No palpable adenopathy. Points out 2 small nodules in subcutaneous tissue RLQ abdominal skin feel like cysts. I spent a total of 45 minutes on the date of the service which included preparing to see the patient, [id number] patient care, completing clinical documentation, obtaining and/or reviewing separately obtained history, performing a medically appropriate examination, counseling and educating the patient/family/caregiver , ordering medications, tests, or procedures, independently interpreting results (not separately reported), and communicating results to the patient/family/caregiver . Electronically Signed: Juan R Garcia MD February 06, 2025 10:43 AM [1] Social History Tobacco Use Smoking status: Former Current packs/day: 0.00 Types: Cigarettes Smokeless tobacco: Never Vaping Use Vaping status: current (more content not included)... Normal [facility] ESR Westergren method (Bld) [Velocity]on 02-06-2025 ESR (Bld) [Velocity] 9 mm/h Normal 0-20 [facility] Comment on above: Order Comment: Speci men Type: BLOOD SPECIMENOrdering Facility: [facility] Address: [address] [place] [address] Performed By: #### [id number] ####[facility] LABCLIA [id number] [place] [address] [place] UA DIP, URINE (POC)on 2024 BILIRUBIN UA (POCT) Negative Negative [facility] CLARITY UA (POCT) Clear [place] COLOR UA (POCT) Yellow [facility] GLUCOSE UA (POCT) 100 mg/dL Abnormal Negative [place] Hemoglobin Ql (U) Trace-lysed Abnormal Negative [facility] Interpretation and review of laboratory results Abnormal [facility] KETONE UA (POCT) Negative Negative mg/dL [facility] LEUKOCYTES UA (POCT) Negative Negative [facility] NITRITE UA (POCT) Negative Negative [place] PH UA (POCT) 6.5 4.5 - 8.0 [facility] Protein Ql (U) >=300 Abnormal Negative mg/dL [facility] SPECIFIC GRAVITY UA (POCT) 1.020 1.005 - 1.030 [facility] UROBILINOGEN UA (POCT) 0.2 Siria l E.U./dL [facility] Location:[facility] [address], [place], [address] [facility] POINT OF CARE [facility] CNPJessie 01-27-2025 CNPN Telephone (HEMAWS) -------- AISSATOU BETTS ([id number]) 1990 F Date Time Provider Department 01/27/25 JUAN R GARCIA During your visit today, we recorded the following information about you: Lindsay Plata 01/27/2025 8:29 AM Signed Please review and advise CONSULT TO HEMATOLOGY/ONCOLOGY Status: Needs Scheduling Requested appt date: Authorizing: Pam Yost APRN.AIR TRANSPORTATION PROVIDER in [facility] Referral: [id number] (Authorized) Expires: 01/24/2026 Priority: Routine Diagnosis: Unintentional weight loss of more than 10 pounds in 90 days [R63.4] History of Hodgkin's lymphoma [Z85.71] Michelle Bernabe LPN 01/27/2025 9:10 AM Signed First avail with TRACIE Noe Naomi 01/27/2025 9:46 AM Signed This has been scheduled as directed. Thiago Prieto Allergies As of Date: 01/27/2025 Noted Allergy Reaction ATORVASTATIN 07/03/2015 16 - Unknown CATS 10/27/2010 12 - Shortness of Breath DROPERIDOL 08/06/2012 10 - Anaphylaxis LAXATIVE PILL 09/25/2019 8 - GI Upset MEPERIDINE 07/03/2015 16 - Unknown SENNOSIDES 09/25/2019 14 - Other: See Comments Date Reviewed: 01/24/2025 Reviewed by: Abdulaziz Castillo MA - Fully Assessed Reason for Visit: New Patient [172] Prescriptions as of 01/27/2025 - levothyroxine (SYNTHROID) 75 mcg tablet Take 1 tablet by mouth daily before breakfast. - SUMAtriptan (IMITREX) 100 mg tablet Take 1 tablet by mouth as needed for migraine headache (see administration instructions) (do not use on more than 2 dyas per week.). May repeat dose after 2 hours if needed. Maximum daily dose is 200 mg per day. No more than 9 doses in a month. - omeprazole (PRILOSEC) 40 mg capsule Take 1 capsule by mouth once daily. - buprenorphine-nalOXone SL (SUBOXONE) 8-2 mg subl Dissolve 2 tablets under the tongue once daily. D/T hyper active thyroid - OTC PRODUCT Vitamin D drops - valACYclovir (VALTREX) 500 mg tablet Take 1 tablet by mouth once daily. - ondansetron orally disintegrating (ZOFRAN ODT) 4 mg disintegrating tablet Take 1 tablet by mouth every 8 hours as needed for nausea/vomiting. - zinc sulfate 220 mg (50 mg zinc) capsule Take 1 capsule by mouth once daily for 21 days. - etonogestrel (NEXPLANON) subdermal implant 68 mg 1 Each by SUBDERMAL route as directed. - VITAMIN B-12 500 mcg tab tab(s) Take 1 tablet by mouth once daily. Meds Comments as of 03/23/2013: Pt. Denies taking any home medications Problem List As Of Date 01/27/2025 Noted Resolved Hodgkin lymphoma (HCC) [C81.90] 10/22/2010 Backache, unspecified [M54.9] 04/19/2011 Cervicalgia [M54.2] 04/19/2011 Depression [F32.A] 10/12/2011 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] 2011 Decreased hearing [H91.90] Bipolar 1 disorder (HCC) [F31.9] Left flank pain [R10.9] 02/19/2014 07/31/2018 Pyelonephritis [N12] 02/19/2014 09/12/2023 Substance abuse (HCC) [F19.10] 02/19/2014 DAQUAN (acute kidney injury) (HCC) [N17.9] 03/27/2014 09/10/2023 Nausea and vomiting [R11.2] 03/27/2014 07/31/2018 Numbness [R20.0] 06/28/2014 Trichomoniasis [A59.9] 07/31/2018 History of imperforate anus [Z87.738] 07/31/2018 Other specified hypothyroidism [E03.8] 07/31/2018 History of delivery [Z98.891] 07/31/2018 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] 07/31/2018 UTI (urinary tract infection) in , ant*07/31/2018 Chronic hepatitis C without hepatic coma (HCC) *07/31/2018 Iron deficiency anemia [D50.9] 07/31/2018 Social problem [Z60.9] 07/31/2018 History of delivery [Z87.51] 07/31/2018 Tobacco use disorder [F17.200] 07/31/2018 Buprenorphine maintenance treatment affecting p*07/31/2018 Supervision of high risk , antepartum *07/31/2018 Dizziness [R42] 12/21/2021 Acute kidney injury (HCC) [N17.9] 09/10/2023 Anxiety [F41.9] 09/10/2023 09/12/2023 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 PTSD (post-traumatic stress disorder) [F43.10] 09/11/2023 Zinc deficiency [E60] 09/12/2023 Anxiety disorder [F41.9] 11/08/2023 Vesicoureteral reflux with resulting kidney dis*07/11/2024 Vitamin D deficiency [E55.9] 03/04/2022 Moderate persistent asthma without complication*11/21/2022 Migraine [G43.909] 03/04/2022 Malignant neoplasm (HCC) [C80.1] 07/11/2024 09/17/2024 Idiopathic peripheral neuropathy [G60.9] 07/16/2015 Hydronephrosis of left kidney [N13.30] 03/04/2022 Hx of adenomatous polyp of colon [Z86.0101] 01/17/2020 History of manic depressive disorder [Z86.59] 07/11/2024 Drug abuse, daily use (HCC) [F19.10] 02/24/2016 Anemia of renal disease [N18.9, D63.1] 04/30/2016 Deafness in left ear [H91.92] 07/11/2024 Encounter Status:Closed by THIAGO PRIETO on 01/27/25 [facility] W/REFLEX FT4on Interpretation and review of laboratory results Abnormal [facility] TSH Qn 5.2 m[IU]/L High [facility] Comment on above: If the patient is pr egnant, TSH reference range varies by gestational period: First Trimester (weeks 9-12): 0.180-2.990 mIU/L Second Trimester: 0.110-3.980 mIU/L Third Trimester: 0.480-4.710 mIU/L Leo Tinsley et al. A Practical Approach for the Verifications and Determination of Site- and Trimester-Specific Reference Intervals for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 0.50 Average packs/day: 0.5 packs/day for 0.7 years (0.4 ttl pk-yrs) Types: Cigarettes Smokeless tobacco: Never Vaping Use Vaping status: current everyday user Substances: Nicotine, Flavoring Substance Use Topics Alcohol use: Not Currently Alcohol/week: 1.0 standard drink of alcohol Types: 1 Cans of beer per week Drug use: Yes Types: Marijuana Comment: does use CBD, used heroin, crack, marijuana, meth in past. Last used heroin and crack November 12, 2021 ALLERGIES Allergen Reactions Atorvastatin Unknown Cats Shortness of Breath Droperidol Anaphylaxis Laxative Pill GI Upset Meperidine Unknown Sennosides Other: See Comments Family History Problem Relation Age of Onset Hypertension Mother other (depresssion) Mother No Known Problems Father Lung Cancer Maternal Grandfather other (ulcerative colitis) Paternal Grandmother Diabetes Maternal Aunt Current Outpatient Medications Medication Sig Dispense Refill omeprazole (PRILOSEC) 40 mg capsule Take 1 capsule by mouth once daily. 30 capsule 1 buprenorphine-nalOXone SL (SUBOXONE) 8-2 mg subl Dissolve 2 tablets under the tongue once daily. D/T hyper active thyroid OTC PRODUCT Vitamin D drops valACYclovir (VALTREX) 500 mg tablet Take 1 tablet by mouth once daily. 90 tablet 1 ondansetron orally disintegrating (ZOFRAN ODT) 4 mg disintegrating tablet Take 1 tablet by mouth every 8 hours as needed for nausea/vomiting. 30 tablet 11 gabapentin (NEURONTIN) 100 mg capsule Take 1 capsule by mouth three times a day for 12 doses. Do not start before September 16, 2023. 12 capsule 0 zinc sulfate 220 mg (50 mg zinc) capsule Take 1 capsule by mouth once daily for 21 days. 21 capsule 0 etonogestrel (NEXPLANON) subdermal implant 68 mg 1 Each by SUBDERMAL route as directed. 1 Each 0 VITAMIN B-12 500 mcg tab tab(s) Take 1 tablet by mouth once daily. levothyroxine (SYNTHROID) 50 mcg tablet Take 1 tablet by mouth daily at 6 am. 90 tablet 1 SUMAtriptan (IMITREX) 100 mg tablet Take 1 tablet by mouth as needed for migraine headache (see administration instructions) (more content not included)... Normal [facility] Comprehensive metabolic 2000 panelon 12-20-2024 Albumin [Mass/Vol] 4.5 g/dL Normal 3.9-4.9 [facility] Comment on above: Order Comment: Speci men Type: BLOOD SPECIMENOrdering Facility: [facility] Address: [address] [place] [address] Performed By: #### 3 024-7 ####[facility] LABORATORYCLIA [id number] [address]#### 58297-4, TSHRF ####[facility] LAB[facility] [id number] [address] [place] [facility] ALP [Catalytic activity/Vol] 85 U/L Normal 34-123 [facility] Comment on above: Order Comment: Speci men Type: BLOOD SPECIMENOrdering Facility: [facility] Address: [address] [place] [address] Performed By: #### 3 024-7 ####[facility] LABORATORYCLIA [id number] [address]#### 26928-6, TSHRF ####[facility] LAB[facility] [id number] [address] STATES OF [facility] ALT With P-5'-P [Catalytic activity/Vol] 8 U/L Normal 7-38 [facility] Comment on above: Order Comment: Speci men Type: BLOOD SPECIMENOrdering Facility: [facility] Address: [address] [place] [address] Performed By: #### 3 024-7 ####[facility] [id number] [address]#### 47371-0, TSHRF ####[facility] [place] LABCLIA [id number] [place] [address] [place] Anion gap [Moles/Vol] 11 mmol/L Normal 8-15 [facility] Comment on above: Order Comment: Speci men Type: BLOOD SPECIMENOrdering Facility: [facility] Address: [address] [place] [address] Performed By: #### 3 024-7 ####[facility]ORY[facility] [id number] [address]#### 39704-4, TSHRF ####[facility] [place] LABCLIA [id number] [place] [address] [facility] [place] AST With P-5'-P [Catalytic activity/Vol] 18 U/L Normal 13-35 [facility] Comment on above: Order Comment: Speci men Type: BLOOD SPECIMENOrdering Facility: [facility] Address: [address] [place] [address] Performed By: #### 3 024-7 ####[facility]ORY[facility]IA [id number] [address]#### 00086-0, TSHRF ####[facility] [place] LABCLIA [id number] [place] [address] [place] Bilirubin [Mass/Vol] 0.5 mg/dL Normal 0.2-1.3 [facility] Comment on above: Order Comment: Speci men Type: BLOOD SPECIMENOrdering Facility: [facility] Address: [address] [place] [address] Performed By: #### 3 024-7 ####[facility]ORY[facility]IA [id number] [address] [place]#### 23017-2, TSHRF ####[facility] LABCLIA [id number] [place] [address] [place] Calcium [Mass/Vol] 9.7 mg/dL Normal 8.5-10.2 [facility] Comment on above: Order Comment: Speci men Type: BLOOD SPECIMENOrdering Facility: [facility] Address: [address] [place] [address] Performed By: #### 3 024-7 ####[facility]ORY[facility]IA [id number] [address]#### 09331-0, TSHRF ####[facility] [place] LABCLIA [id number] [address] [place] Chloride [Moles/Vol] 107 mmol/L Normal 98-107 [facility] Comment on above: Order Comment: Speci men Type: BLOOD SPECIMENOrdering Facility: [facility] Address: [address] [place] [address] Performed By: #### 3 024-7 ####[facility]ORY[facility]IA [id number] [address]#### 68175-7, TSHRF ####[facility] [place] LABCLIA [id number] [place] [id number] [place] CO2 [Moles/Vol] 22 mmol/L Normal 22-30 [facility] Comment on above: Order Comment: Speci men Type: BLOOD SPECIMENOrdering Facility: [facility] Address: [address] [place] [address] Performed By: #### 3 024-7 ####[facility]ORYCLIA [id number] [address]#### 81844-0, TSHRF ####[facility] LABCLIA [id number] [place] [id number] [place] Creatinine [Mass/Vol] 2.16 mg/dL High 0.58-0.96 [facility] Comment on above: Order Comment: Kalee castro Type: BLOOD SPECIMENOrdering Facility: [facility] Address: [address] [place] [address] Performed By: #### 3 024-7 ####[facility] LABORATORYCLIA [id number] [address] [place]#### 69052-3, TSH ####[facility] LAB[facility] [id number] [address] Creatinine and Glomerular filtration rate.predicted panel (S/P/Bld) 30 mL/min/1.73m??? Low >=60 [facility] Comment on above: Order Comment: Kalee castro Type: BLOOD SPECIMENOrdering Facility: [facility] Address: [address] [place] [address] Result Comment: Reed mated Glomerular Filtration Rate (eGFR) is calculated using the 2020 CKD-EPI creatinine equation. This equation utilizes serum creatinine, sex, and age as parameters. The creatinine assay has traceable calibration to isotope dilution-mass spectrometry. Refer to KDIGO guidelines for clinical interpretation. In patients with unstable renal function, e.g. those with acute kidney injury, the eGFR may not accurately reflect actual GFR. Performed By: #### 3 024-7 ####[facility] LABORATORYCLIA [id number] [address] [place]#### [address]442-5, [facility] ####[facility] LABCLIA [id number] [place] [id number] [facility] Glucose [Mass/Vol] 88 mg/dL Normal 74-99 [facility] Comment on above: Order Comment: Kalee castro Type: BLOOD SPECIMENOrdering Facility: [facility] Address: [address] [place] [address] Result Comment: The [place] Diabetes Association (ADA) provides guidance for cutoff values for fasting glucose and random glucose. The ADA defines fasting as no caloric intake for at least 8 hours. Fasting plasma glucose results between 100 to 125 mg/dL indicate increased risk for diabetes (prediabetes). Fasting plasma glucose results greater than or equal to 126 mg/dL meet the criteria for diagnosis of diabetes. In the absence of unequivocal hyperglycemia, results should be confirmed by repeat testing. In a patient with classic symptoms of hyperglycemia or hyperglycemic crisis, random plasma glucose results greater than or equal to 200 mg/dL meet the criteria for diagnosis of diabetes. Reference: Standards of Medical Care in Diabetes 2016, [place] Diabetes Association. Diabetes Care. 2016.39(Suppl 1). Performed By: #### 3 024-7 ####[facility]ORYCLIA [id number] [address] [place]#### 02764-6, TSHRF ####[facility] [place] LABCLIA [id number] [place] [address] [place] Potassium [Moles/Vol] 3.7 mmol/L Normal 3.7-5.1 [facility] Comment on above: Order Comment: Kalee castro Type: BLOOD SPECIMENOrdering Facility: [facility] Address: [address] [place] [address] Performed By: #### 3 024-7 ####[facility] LABORATORYCLIA [id number] [address]#### 49113-4, TSHRF ####[facility] [place] LABCLIA [id number] [place] [address] [place] Protein [Mass/Vol] 7.4 g/dL Normal 6.3-8.0 [facility] Comment on above: Order Comment: Kalee castro Type: BLOOD SPECIMENOrdering Facility: [facility] Address: [address] [place] [address] Performed By: #### 3 024-7 ####[facility]ATORYCLIA [id number] [place] [address] [place] [facility]#### 04864-7, TSHRF ####[facility] [place] LABCLIA [id number] [place] [address] [place] Sodium [Moles/Vol] 140 mmol/L Normal 136-144 [facility] Comment on above: Order Comment: Speci men Type: BLOOD SPECIMENOrdering Facility: [facility] Address: [address] [place] [address] Performed By: #### 3 024-7 ####[facility] LABORATORYCLIA [id number] [place] [address] [place]#### 00928-2, TSHRF ####[facility] LABCL[facility] [id number] [address] [place] Urea nitrogen [Mass/Vol] 17 mg/dL Normal 7-21 [facility] Comment on above: Order Comment: Speci men Type: BLOOD SPECIMENOrdering Facility: [facility] Address: [address] [place] [address] Performed By: #### 3 024-7 ####[facility] LABORATORYCLIA [id number] [place] [address] [place]#### 99274-3, TSHRF ####[facility] LABCLIA [id number] [place] [address] [place] Ferritin SerPl-mCncon 2024 Ferritin [Mass/Vol] 79.9 ng/mL Normal 14.7-205.1 [facility] Comment on above: Order Comment: Speci men Type: BLOOD SPECIMENOrdering Facility: [facility] Address: [address] [place] [address] Performed By: #### 2 276-4, 13031-0, 2132-9, 2284-8 ####[facility] LABORATORYCLIA [id number] [place] [address] [place] Folate SerPl-mCncon 12-21-19 25 Folate [Mass/Vol] ng/mL Normal >4.7 [facility] Comment on above: Order Comment: Speci men Type: BLOOD SPECIMENOrdering Facility: [facility] Address: [address] [place] [address] Result Comment: A re sult of > 20 ng/mL is not necessarily indicative of a pathologic or treatable condition: it reflects a limitation of the test methodology. Assay reference range: 4.8 to 24.2 ng/mL. Suitable for detection of folate deficiency. Reference: Folate III (Folate III) [package insert V 1.0 Gu[place]ian]. [facility], [place], [place]: April 2015. Performed By: #### 2 276-4, 46260-8, 2132-9, 2284-8 ####[facility] LABORATORYCLIA [id number] [place] [address] [facility] OF [place] HbA1c (Bld)on 12-20-2024 Average glucose Estimated from glycated hemoglobin (Bld) [Mass/Vol] 105 mg/dL Normal [facility] Comment on above: Order Comment: Kalee castro Type: BLOOD SPECIMENOrdering Facility: [facility] Address: [address] [place] [address] Result Comment: eAG: (Estimated average glucose) is a calculated value from HgbA1c and is customer service representative teacher of the average blood glucose level in the last 2-3 month period. Performed By: #### 5 5454-3 ####[facility] LABCLIA [id number] [address] [place] HbA1c (Bld) [Mass fraction] 5.3 % Normal 4.3-5.6 [facility] Comment on above: Order Comment: Kalee castro Type: BLOOD SPECIMENOrdering Facility: [facility] Address: [address] [place] [address] Result Comment: Amer ican Diabetes Association guidelines indicate that patients with HgbA1c in the range 5.7-6.4% are at increased risk for development of diabetes, and intervention by lifestyle modification may be beneficial. HgbA1c greater or equal to 6.5% is considered diagnostic of diabetes. Performed By: #### 5 5454-3 ####[facility] LABCLIA [id number] [place] [id number] [place] Iron and Iron binding capaci ty panelon 12-20-2024 Iron [Mass/Vol] 100 ug/dL Normal 41-186 [facility] Comment on above: Order Comment: Kalee castro Type: BLOOD SPECIMENOrdering Facility: [facility] Address: [address] [place] [address] Performed By: #### 2 276-4, 56073-4, 2132-02, 8 ####[facility] LABORATORYCLIA [id number] [address] Iron binding capacity [Mass/Vol] 252 ug/dL Normal 232-386 [facility] Comment on above: Order Comment: Speci men Type: BLOOD SPECIMENOrdering Facility: [facility] Address: [address] [place] [address] Performed By: #### 2 276-4, 80414-2, 2132-02, 2284-01 ####[facility] LABORATORYCLIA [id number] [address] Iron saturation [Mass fraction] 39.7 % Normal 15.0-57.0 [facility] Comment on above: Order Comment: Speci men Type: BLOOD SPECIMENOrdering Facility: [facility] Address: [address] [place] [address] Performed By: #### 2 276-4, 36046-5, 2132-02, 2284-01 ####[facility] LABORATORYCLIA [id number] [address] STATES [facility] T4 Free SerPl-mCncon 025 Free T4 [Mass/Vol] 1.1 ng/dL Normal 0.9-1.7 [facility] Comment on above: Order Comment: Speci men Type: BLOOD SPECIMENOrdering Facility: [facility] Address: [address] [place] [address] Performed By: #### 3 024-7 ####[facility] [facility]ATORY[facility]IA [id number] [place] [address] [place]#### [id number], TSHRF ####ZINA ESPINOZA LODI LABCLIA [id number] [place], [place] [id number] [place] [address] [place] TSH W/REFLEX FT4on 5 TSH Qn 4.870 m[IU]/L High 0.270-4.200 [facility] Comment on above: Order Comment: Speci men Type: BLOOD SPECIMENOrdering Facility: [facility] Address: [address] [place] [address] Result Comment: If t he patient is , TSH reference range varies by gestational period: First Trimester (weeks 9-12): 0.180-2.990 mIU/L Second Trimester: 0.110-3.980 mIU/L Third Trimester: 0.480-4.710 mIU/L Leo Tinsley et al. A Practical Approach for the Verifications and Determination of Site- and Trimester-Specific Reference Intervals for Thyroid Function tests in . Thyroid, 2019:29:3:412-420. Renny Morelos, et al. 2017 Guidelines of the [place] [employer] for the Diagnosis and Management of Thyroid Disease during and the . Thyroid, 2017:27:3:315-389. Performed By: #### 3 024-7 ####[facility] LAB[facility]ATORYCLIA [id number] [place] [address] [place]#### [id number], TSHRF ####[facility] LABCLIA [id number] [place] [address] [place] Vit [facility]12 [facility]2 025 Cobalamin (Vitamin B12) [Mass/Vol] 409 pg/mL Normal 232-1245 [facility] Comment on above: Order Comment: Speci men Type: BLOOD SPECIMENOrdering Facility: [facility] Address: [address] [place] [address] Performed By: #### 2 276-4, 27743-7, 2132-9, 2284-8 ####[facility]ATORYCLIA [id number] [place] [address] [place] Bacteria Ur Culton 5 Bacteria identified Cx Nom (U) CULTURE, URINE: No growth (<1,000 CFU/ml) Normal [facility] Comment on above: Performed By: #### 6 30-4 ####[facility] LABCLIA [id number] [address] STATES OF [facility] CNOVon 11-22-2024 CNOV Office Visit (UCWSTR ) -------- AISSATOU BETTS ([id number]) 1990 F Date Time Provider Department 11/22/24 8:45 AM GUSTAVO HRAMON [facility] During your visit today, we recorded the following information about you: Temperature Pulse Respiration Blood pressure 97 degrees 78/minute 18/minute 146/90 Weight 53 kg Gustavo Harmon, ANATOLIY.AIR TRANSPORTATION PROVIDER 11/22/2024 9:21 AM Signed [facility] Subjective Aissatou Betts is a 34 year old female. Patient presents with: Urinary Problem: Frequency, Left side flank pain, nausea x 2 days HPI Flank Pain and Emesis: - Left-sided flank pain and emesis, believes it is due to a kidney infection. - Symptoms have been ongoing for a while. - Was seen in ER on 11/13 but no treatment was prescribed. - Unable to see her kidney doctors due to insurance issues with [place]. - Denies fever or chills; previously experienced hot sweats and cold, but resolved. - Requests Zofran for nausea, as Keflex causes nausea as well. Kidney Disease: - History of kidney disease with proteinuria. - Unable to see foundry engineer due to insurance issues. - Typically takes Keflex for kidney infections. Review of Systems Constitutional: Negative for chills and fever. Respiratory: Negative. Cardiovascular: Negative. Gastrointestinal: Positive for nausea. Negative for vomiting. Genitourinary: Positive for flank pain and frequency. Negative for difficulty urinating, dysuria, hematuria and urgency. Musculoskeletal: Negative for back pain. Skin: Negative for rash. Constitutional: (-) fever, (-) chills Gastrointestinal: (+) nausea, (+) vomiting, (-) abdominal pain Genitourinary: (+) left flank pain Objective BP 146/90 Pulse 78 Temp 36.1 ?C (97 ?F) Resp 18 Wt 53 kg (116 lb 13.5 oz) LMP 04/15/2023 (Exact Date) SpO2 99% BMI 17.25 kg/m? PAST MEDICAL HISTORY Diagnosis Date Alcohol abuse polysubstance abuse. 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 Depression 10/12/2011 Headache High blood pressure per patient - associated with breathing History of delivery Hodgkin's disease 2008 S/p chemo/radiation Hypothyroidism Solitary kidney, congenital pt born with single kidney PAST SURGICAL HISTORY Procedure Laterality Date SECTION HX 02/24/2016 COLONOSCOPY SCREENING 2022 HERPES 1 AND 2, IGB+ 2011 NEXPLANON INSERTION Left 04/20/2023 Placed in office PAST SURGICAL HISTORY OF kidney surgery PAST SURGICAL HISTORY OF rectal PAST SURGICAL HISTORY OF 06/09/2009 Left Supraclavicular Lymphnode Excision VSD CLOSURE ALLERGIES Atorvastatin, Cats, Droperidol, Laxative Pill, Meperidine, and Sennosides MEDICATIONS VRAYLAR 1.5 mg capsule Take 1 capsule by mouth every other day. buprenorphine-nalOXone SL (SUBOXONE) 8-2 mg subl Dissolve 2 tablets under the tongue once daily. D/T hyper active thyroid levothyroxine (SYNTHROID) 50 mcg tablet Take 1 tablet by mouth daily at 6 am. valACYclovir (VALTREX) 500 mg tablet Take 1 tablet by mouth once daily. SUMAtriptan (IMITREX) 100 mg tablet Take 1 tablet (100 mg) by mouth as needed for migraine headache (see administration instructions) (do not use on more than 2 dyas per week.). May repeat dose after 2 hours if needed. Maximum daily dose is 200 mg per day. No more than 9 doses in a month. ADVAIR DISKUS 500-50 mcg/dose dsdv Inhale 1 Puff as instructed two times a day. RINSE AND GARGLE MOUTH WITH WATER AFTER EACH USE. gabapentin (NEURONTIN) 100 mg capsule Take 1 capsule by mouth three times a day for 12 doses. Do not start before September 16, 2023. zinc sulfate 220 mg (50 mg zinc) capsule Take 1 capsule by mouth once daily for 21 days. etonogestrel (NEXPLANON) subdermal implant 68 mg 1 Each by SUBDERMAL route as directed. VITAMIN D-3 50 mcg (2,000 unit) cap Take 1 capsule by mouth once daily. VITAMIN B-12 500 mcg tab tab(s) Take 1 tablet by mouth once daily. cephALEXin (KEFLEX) 500 mg capsule Take 1 capsule by mouth three times a day for 7 days. ondansetron orally disintegrating (ZOFRAN ODT) 4 mg disintegrating tablet Take 1 tablet by mouth every 8 hours as needed for nausea/vomiting. omeprazole (PRILOSEC) 40 mg capsule Take 1 capsule by mouth once daily. (Patient not taking: Reported on 11/22/2024) OTC PRODUCT Vitamin D drops (Patient not taking: Reported on 11/22/2024) montelukast (SINGULAIR) 10 mg tablet Take 1 tablet by mouth daily at bedtime. (Patient not taking: Reported on 11/22/2024) ondansetron orally disintegrating (ZOFRAN ODT) 4 mg disintegrating tablet Take 1 tablet by mouth every 8 hours as needed for nausea/vomiting. (Patient not taking: Reported on 11/22/2024) hydrOXYzine HCl (ATARAX) 50 mg tablet (Patient not taking: Reported on 11/22/2024) FAMILY HISTORY Problem Relation (more content not included)... Normal [facility] UA DIP, URINE (POC)on 2024 BILIRUBIN UA (POCT) Negative Negative [facility] CLARITY UA (POCT) Clear [place] COLOR UA (POCT) Yellow [facility] GLUCOSE UA (POCT) Negative Negative mg/dL [facility] Hemoglobin Ql (U) Trace-intact Abnormal Negative [facility] Interpretation and review of laboratory results Abnormal [facility] KETONE UA (POCT) Negative Negative mg/dL [facility] LEUKOCYTES UA (POCT) Negative [facility] NITRITE UA (POCT) Negative Negative [place] PH UA (POCT) 7 4.5 - 8.0 [facility] Protein Ql (U) >=300 Abnormal Negative mg/dL [facility] SPECIFIC GRAVITY UA (POCT) 1.015 1.005 - 1.030 [facility] UROBILINOGEN UA (POCT) 0.2 Siria l E.U./dL [facility] Location:[address], [place], [place], [address] [place] [address] POINT OF CARE [facility] Absolute lymphocyte countOrd ered By: Anderson Avila on 11-13-2024 Lymphocytes Auto (Unsp spec) [#/Vol] 0.77 10*3/uL Low 0.83-4.51 [facility] Absolute neutrophil countOrd ered By: Anderson Avila on 11-13-2024 Neutrophils (Bld) [#/Vol] 5.8 10*3/uL 2.0-7.7 [facility] Anion gap in Serum or Plasma Ordered By: Anderson Avila on 11-13-2024 Anion gap [Moles/Vol] 10 mmol/L 11-07 [facility] Automated lymphocyte count a s percentage of total leukocytesOrdered By: Anderson Avila on 11-13-2024 Lymphocytes/100 WBC Auto (Unsp spec) 11.2 % Low [facility] BUN/creatinine ratioOrdered By: Anderson Avila on 11-13-2024 Urea nitrogen/Creatinine [Mass ratio] 11.4 mg/mg 04-14 [facility] Basic Metabolic Profile (BMP )on 11-13-2024 BUN/CRE 11.4 RATIO Normal 04-14 [facility] Comment on above: Performed By: #### L 500.2500, L100.0100 ####[facility] [address] [place], [address] Calcium [Mass/Vol] 9.3 mg/dL Normal 7.6-11.0 [facility] Comment on above: Performed By: #### L 500.2500, L100.0100 ####[facility] [address] [place], [address] Chloride [Moles/Vol] 111 mmol/L High 98-108 [facility] Comment on above: Performed By: #### L 500.2500, L100.0100 ####[facility] [address] [place], [address] CO2 [Moles/Vol] 19.9 mmol/L Low 21.0-32.0 [facility] Comment on above: Performed By: #### L 500.2500, L100.0100 ####[facility] [address] [place], [address] Creatinine [Mass/Vol] 2.16 mg/dL High 0.70-1.20 [facility] Comment on above: Performed By: #### L 500.2500, L100.0100 ####[facility] [address] [place], [address] ECRCL 30.12 ml/min Low 50-250 [facility] Comment on above: Performed By: #### L 500.2500, L100.0100 ####[facility] [address] [place], [address] GAP 10 Normal 5-15 [facility] Comment on above: Performed By: #### L 500.2500, L100.0100 ####[facility] [address] [place], [address] GFR/1.73 sq M.predicted among non-blacks MDRD (S/P/Bld) [Vol rate/Area] 30 mL/min/{1.73_m2} Low >60 [facility] Comment on above: Result Comment: mL/m in/1.73m2 CKD-EPI Creatinine Equation (2020) Performed By: #### L 500.2500, L100.0100 ####[facility] [address] [place], [address] Glucose [Mass/Vol] 115 mg/dL High 70-99 [facility] Comment on above: Performed By: #### L 500.2500, L100.0100 ####[facility] [address] [place], [address] Potassium [Moles/Vol] 4.1 mmol/L Normal 3.3-5.1 [facility] Comment on above: Performed By: #### L 500.2500, L100.0100 ####[facility] [address] [place], [address] Sodium [Moles/Vol] 142 mmol/L Normal 133-145 [facility] Comment on above: Performed By: #### L 500.2500, L100.0100 ####[facility] [address] [place], [address] Urea nitrogen [Mass/Vol] 25 mg/dL High 4-19 [facility] Comment on above: Performed By: #### L 500.2500, L100.0100 ####[facility] [address] [place], [address] Basophil percentageOrdered B y: Anderson Austin on 11-13-2024 Basophils/100 WBC (Bld) 0.1 % 0-1 [facility] CBC W/Diff, Automatedon 10-25 Absolute Lymph 0.77 X10 3/uL Low 0.83-4.51 [facility] Comment on above: Performed By: #### L 500.2500, L100.0100 ####[facility] [address] [place], [address] Absolute Neut 5.8 X10 3/uL Normal 2.0-7.7 [facility] Comment on above: Performed By: #### L 500.2500, L100.0100 ####[facility] [address] [place], [address] Basophils/100 WBC (Bld) 0.1 % Normal 0-1 [facility] Comment on above: Performed By: #### L 500.2500, L100.0100 ####[facility] [address] [place], [address] Eosinophils/100 WBC (Bld) 0.9 % Normal 0-5 [facility] Comment on above: Performed By: #### L 500.2500, L100.0100 ####[facility] [address] [place], [address] Erythrocyte distribution width (RBC) [Ratio] 12.7 % Normal 11.6-14.6 [facility] Comment on above: Performed By: #### L 500.2500, L100.0100 ####[facility] [address] [place], [address] Hematocrit (Bld) [Volume fraction] 35.2 % Low 37-47 [facility] Comment on above: Performed By: #### L 500.2500, L100.0100 ####[facility] [address] [place], [address] Hemoglobin (Bld) [Mass/Vol] 11.3 g/dL Low 12.0-15.0 [facility] Comment on above: Performed By: #### L 500.2500, L100.0100 ####[facility] [address] [place], [address] IG% 0.100 Normal 0.0-0.9 [facility] Comment on above: Result Comment: IG% - Immature Granulocytes (promyelocytes, myelocytes and metamyelocytes) > 1% indicates that a LEFT SHIFT is Present. Performed By: #### L 500.2500, L100.0100 ####[facility] [address] [place], [address] Lymphocytes/100 WBC (Bld) 11.2 % Low 19-41 [facility] Comment on above: Performed By: #### L 500.2500, L100.0100 ####[facility] [address] [place], [address] MCH (RBC) [Entitic mass] 27.9 pg Normal 27.0-32.0 [facility] Comment on above: Performed By: #### L 500.2500, L100.0100 ####[facility] [address] [place], [address] MCHC (RBC) [Mass/Vol] 32.1 g/dL Normal 32-36 [facility] Comment on above: Performed By: #### L 500.2500, L100.0100 ####[facility] [address] [place], [address] MCV (RBC) [Entitic vol] 86.9 fL Normal 81-99 [facility] Comment on above: Performed By: #### L 500.2500, L100.0100 ####[facility] [address] [place], [address] Monocytes/100 WBC (Bld) 3.8 % Normal 0-10 [facility] Comment on above: Performed By: #### L 500.2500, L100.0100 ####[facility] [address] [place], [address] Neutrophils/100 WBC (Bld) 83.9 % High 47-70 [facility] Comment on above: Performed By: #### L 500.2500, L100.0100 ####[facility] [address] [place], [address] Nucleated RBC (Bld) [#/Vol] 0 10*3/uL Normal 0-5 [facility] Comment on above: Performed By: #### L 500.2500, L100.0100 ####[facility] [address] [place], [address] Platelet mean volume (Bld) [Entitic vol] 11.6 fL Normal 6.2-12.0 [facility] Comment on above: Performed By: #### L 500.2500, L100.0100 ####[facility] [address] [place], [address] Platelets (Bld) [#/Vol] 141 10*3/uL Low 150-450 [facility] Comment on above: Performed By: #### L 500.2500, L100.0100 ####[facility] [address] [place], [address] RBC (Bld) [#/Vol] 4.05 10*6/uL Low 4.2-5.4 [facility] Comment on above: Performed By: #### L 500.2500, L100.0100 ####[facility] [address] [place], [address] RDW SD 40.5 fl Normal 35.1-43.9 [facility] Comment on above: Performed By: #### L 500.2500, L100.0100 ####[facility] [address] [place], [address] WBC (Bld) [#/Vol] 6.9 10*3/uL Normal 4.4-11.0 [facility] Comment on above: Performed By: #### L 500.2500, L100.0100 ####[facility] [address] [place], [address] CNOVon 11-13-2024 CNOV Office Visit (UCTR ) -------- AISSATOU BETTS ([id number]) 1990 F Date Time Provider Department 11/13/24 2:15 PM THADDEUS SHELL [facility] During your visit today, we recorded the following information about you: Temperature Pulse Respiration Blood pressure 97.7 degrees 87/minute 18/minute 122/64 Weight 52 kg Thaddeus Shell APRN.AIR TRANSPORTATION PROVIDER 11/13/2024 2:27 PM Signed Patient came in with complaints of back pain. Patient says she has had nausea for about a week. Patient says she started vomiting today. Patient does have significant medical history including 1 kidney. Patient's urine showed significant amounts of protein but no findings of a UTI due to patient's symptoms and having 1 kidney patient really needs a more thorough exam that [facility] can do. Patient was referred to the emergency room. Allergies As of Date: 11/13/2024 Noted Allergy Reaction ATORVASTATIN 07/03/2015 16 - Unknown CATS 10/27/2010 12 - Shortness of Breath DROPERIDOL 08/06/2012 10 - Anaphylaxis LAXATIVE PILL 09/25/2019 8 - GI Upset MEPERIDINE 07/03/2015 16 - Unknown SENNOSIDES 09/25/2019 14 - Other: See Comments Date Reviewed: 11/13/2024 Reviewed by: Soniya Hollins LPN - Fully Assessed Reason for Visit: Urinary Frequency [1086] Cmt: Frequency, burning and low back pain x 1-2 weeks, nausea x 1 week and vomiting x 1 day Primary Visit Diagnosis:Urinary frequency [R35.0] Order(s):UA DIP, URINE (POC) [2082419] Order #: [id number] #:[id number] Prescriptions as of 11/13/2024 - omeprazole (PRILOSEC) 40 mg capsule Take 1 capsule by mouth once daily. - buprenorphine-naloxone (SUBOXONE) 2-0.5 mg film once daily. - OTC PRODUCT Vitamin D drops - levothyroxine (SYNTHROID) 50 mcg tablet Take 1 tablet by mouth daily at 6 am. - valACYclovir (VALTREX) 500 mg tablet Take 1 tablet by mouth once daily. - SUMAtriptan (IMITREX) 100 mg tablet Take 1 tablet (100 mg) by mouth as needed for migraine headache (see administration instructions) (do not use on more than 2 dyas per week.). May repeat dose after 2 hours if needed. Maximum daily dose is 200 mg per day. No more than 9 doses in a month. - ADVAIR DISKUS 500-50 mcg/dose dsdv Inhale 1 Puff as instructed two times a day. RINSE AND GARGLE MOUTH WITH WATER AFTER EACH USE. - montelukast (SINGULAIR) 10 mg tablet Take 1 tablet by mouth daily at bedtime. - ondansetron orally disintegrating (ZOFRAN ODT) 4 mg disintegrating tablet Take 1 tablet by mouth every 8 hours as needed for nausea/vomiting. - hydrOXYzine HCl (ATARAX) 50 mg tablet - gabapentin (NEURONTIN) 100 mg capsule Take 1 capsule by mouth three times a day for 12 doses. Do not start before September 16, 2023. - zinc sulfate 220 mg (50 mg zinc) capsule Take 1 capsule by mouth once daily for 21 days. - etonogestrel (NEXPLANON) subdermal implant 68 mg 1 Each by SUBDERMAL route as directed. - VITAMIN D-3 50 mcg (2,000 unit) cap Take 1 capsule by mouth once daily. - VITAMIN B-12 500 mcg tab tab(s) Take 1 tablet by mouth once daily. Meds Comments as of 03/23/2013: Pt. Denies taking any home medications Problem List As Of Date 11/13/2024 Noted Resolved Hodgkin lymphoma (HCC) [C81.90] 10/22/2010 Backache, unspecified [M54.9] 04/19/2011 Cervicalgia [M54.2] 04/19/2011 Depression [F32.A] 10/12/2011 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] 2011 Decreased hearing [H91.90] Bipolar 1 disorder (HCC) [F31.9] Left flank pain [R10.9] 02/19/2014 07/31/2018 Pyelonephritis [N12] 02/19/2014 09/12/2023 Substance abuse (HCC) [F19.10] 02/19/2014 DAQUAN (acute kidney injury) (HCC) [N17.9] 03/27/2014 09/10/2023 Nausea and vomiting [R11.2] 03/27/2014 07/31/2018 Numbness [R20.0] 06/28/2014 Trichomoniasis [A59.9] 07/31/2018 History of imperforate anus [Z87.738] 07/31/2018 Other specified hypothyroidism [E03.8] 07/31/2018 History of delivery [Z98.891] 07/31/2018 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] 07/31/2018 UTI (urinary tract infection) in , ant*07/31/2018 Chronic hepatitis C without hepatic coma (HCC) *07/31/2018 Iron deficiency anemia [D50.9] 07/31/2018 Social problem [Z60.9] 07/31/2018 History of delivery [Z87.51] 07/31/2018 Tobacco use disorder [F17.200] 07/31/2018 Buprenorphine maintenance treatment affecting p*07/31/2018 Supervision of high risk , antepartum *07/31/2018 Dizziness [R42] 12/21/2021 Acute kidney injury (HCC) [N17.9] 09/10/2023 Anxiety [F41.9] 09/10/2023 09/12/2023 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 Normal [facility] Carbon dioxide, total [Moles /volume] in Central venous bloodOrdered By: Anderson Avila on 11-13-2024 CO2 [Moles/Vol] 19.9 mmol/L Low 21.0-32.0 [facility] Chloride assayOrdered By: Leonel Avila on 11-13-2024 Chloride [Moles/Vol] 111 mmol/L High 98-108 [facility] Emergency Department Summary on 11-13-2024 Emergency Department Summary [facility] Medical Records Department [address] [place] [address] Emergency Department Summary 11/13/24 MR#: [id number] Acct: [id number] Name: AISSATOU BETTS Rep #: [id number] : 1990 33 From: Anderson Roberts PCP: BRANDON Ruiz Status:DEP ER Location: ED HPI History of Present Illness Chief Complaint: Nausea/Vomiting Informant: patient Narrative Narrative: Patient sent over from urgent care. She reports vomiting started yesterday mild today had 9 episodes no hematemesis it was bile. No abdominal pain no diarrhea normal bowel movement yesterday. She states that her urine test noted high proteins and was sent here. 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 She was stage IV she got treatment. She said affected her kidney she has a solitary kidney. She states kidneys were stage III or stage IV. She reports insurance issues in the interim due to her new job she is reestablished now with insurance followed by her PCP. Normal urine output. Denies fever chills or sweats denies dysuria. Does to admit to daily marijuana use. Prior similar symptoms: Yes PFSH PFSH Medical History Substance abuse Alcohol abuse Bipolar disorder Hyperthyroidism Kidney disease Pancreatitis Tobacco abuse COVID-19 Flu vaccine need Tachycardia IBS (irritable bowel syndrome) Wears glasses Depression Anxiety History of renal disease Hepatitis Migraine headache Smoker History of imperforate anus Hydronephrosis Migraine Menometrorrhagia Deafness in left ear Pancreatitis Chronic headaches Drug abuse Asthma Anemia Seasonal allergies demise > 22 weeks, delivered, current hospitalization Home Medications ???Medication ???Instructions ???Recorded ???Last Taken ???Type sertraline 25 mg tablet 25 mg PO DAILY depression #90 tabs 08/26/21 10/20/21 Rx buprenorphine 4 mg-naloxone 1 mg 1 film sublingual BID ADDICTION 10/21/21 History sublingual film (Suboxone) valacyclovir 500 mg tablet 500 mg PO DAILY INFECTION 10/21/21 10/20/21 History losartan 25 mg tablet 25 mg PO DAILY #0 tabs 10/24/21 Un known Rx aripiprazole 10 mg tablet 10 mg PO DAILY MOOD #30 tabs 10/27 Unknown Rx levothyroxine 150 mcg tablet 150 mcg PO DAILY THYROID #30 tabs 10/27/21 Unknown Rx amitriptyline 10 mg tablet 10 mg PO QHS 08/03/23 Unknown Hist ory rimegepant 75 mg disintegrating 75 mg PO DAILY PRN migraine Unknown History tablet (Nurtec ODT) headache ondansetron 4 mg disintegrating 4 mg PO Q8H PRN PRN Nausea #20 tab s 09/09/23 Unknown Rx tablet metoclopramide HCl 10 mg tablet 10 mg PO Q6H PRN nausea and Unknown Rx (Reglan) vomiting #14 tabs ondansetron 4 mg disintegrating 4 mg PO Q8H PRN PRN Nausea #10 tab s 12/27/23 Unknown Rx tablet gabapentin 100 mg capsule 100 mg PO TID 10/10/24 Unknown His tory cephalexin 500 mg capsule 500 mg PO Q12 #14 CAPSULES 5 Unknown Rx ondansetron 4 mg disintegrating 4 mg PO Q8H PRN PRN Nausea #15 tab s 10/11/24 Unknown Rx tablet Allergy/AdvReac Type Severity Reaction Status Date / Time ceftriaxone (From Rocephin) Allergy Unknown Verified 11/13/24 14:34 ceftriaxone sodium (From Allergy Hives Verified 11/13/24 14:34 Rocephin) droperidol Allergy Unknown Verified 11/13/24 14:34 Family History Mother Depression Hypertension Mental disorder Thyroid disorder Aunt Diabetes Grandfather Alcoholism Cancer Surgical History History of removal of Port-a-Cath Hx of surgical procedure Hx of cystoscopy Social History household members: none Smoking Status: Current every day smoker tobacco type: cigarettes alcohol intake: never substance use type: crack/cocaine, heroin and other details: Currently snorts 1/2 gm daily of each heroin and cocaine. Also uses meth. what type of physical activity do you participate in: aerobics and weight training frequency: 3-4 times per week ROS ROS ED Constitutional Constitutional ED: Denies fever(s) Cardiovascular Cardiovascular: Denies chest pain Respiratory/Chest Respiratory/Chest: Denies cough Gastrointestinal Gastrointestinal: Reports nausea and vomiting; Denies diarrhea Musculoskeletal Musculoskeletal: Denies none Integumentary Denies rash or wounds Neurologic Neurologic: Denies weakness EXAM Physical Exam Const Vital Signs: 11/13/24 14:34 11/13/24 16:39 Temperature 96.9 F L 98 F Temperature Source Temporal Pulse Rate 68 79 Respiratory Rate 14 17 Blood Pressure 128/90 H 120/77 (more content not included)... Normal [facility] Eosinophil percentageOrdered By: Anderson Avila on 11-13-2024 Eosinophils/100 WBC (Bld) 0.9 % 0-5 [facility] Erythrocyte distribution wid th ratioOrdered By: Anderson Avila on 11-13-2024 Erythrocyte distribution width (RBC) [Ratio] 12.7 % 11.6-14.6 [facility] Erythrocyte distribution wid th standard deviationOrdered By: Anderson Avila on 11-13-2024 Erythrocyte distribution width (RBC) [Ratio] 40.5 fl 35.1-43.9 [facility] Glomerular filtration rate ( GFR) estimation/1.73 sq m using serum, plasma, or whole bOrdered By: Anderson Avila on 11-13-2024 GFR/1.73 sq M.predicted among non-blacks MDRD (S/P/Bld) [Vol rate/Area] 30 mL/min/{1.73_m2} Low >60 [facility] Comment on above: mL/min/1.73m2 CKD-EP I Creatinine Equation (2020) Hematocrit Auto (Bld) [Volum e fraction]Ordered By: Anderson Avila on 11-13-2024 Hematocrit (Bld) [Volume fraction] 35.2 % Low 37-47 [facility] Hemoglobin measurementOrdere d By: Anderson Avila on 11-13-2024 Hemoglobin (Bld) [Mass/Vol] 11.3 g/dL Low 12.0-15.0 [facility] Immature granulocytes/100 WB C Auto (Bld)Ordered By: Anderson Avila on 11-13-2024 Immature granulocytes/100 WBC (Bld) 0.100 % 0.0-0.9 [facility] Comment on above: IG% - Immature Granu locytes (promyelocytes, myelocytes and metamyelocytes) > 1% indicates that a LEFT SHIFT is Present. MCV (mean corpuscular volume ) determinationOrdered By: Anderson Avila on 11-13-2024 MCV (RBC) [Entitic vol] 86.9 fL 81-99 [facility] Mean corpuscular hemoglobin (MCH) determinationOrdered By: Anderson Avila on 11-13-2024 MCH (RBC) [Entitic mass] 27.9 pg 27.0-32.0 [facility] Mean corpuscular hemoglobin concentration (MCHC) determinationOrdered By: Anderson Avila 11-13-2024 MCHC (RBC) [Mass/Vol] 32.1 g/dL 32-36 [facility] Mean platelet volume determi nationOrdered By: Anderson Avila on 11-13-2024 Platelet mean volume (Bld) [Entitic vol] 11.6 fL 6.2-12.0 [facility] Monocyte percentageOrdered B y: Anderson Avila on 11-13-2024 Monocytes/100 WBC (Bld) 3.8 % 0-10 [facility] Neutrophil percentageOrdered By: Anderson Avila on 11-13-2024 Neutrophils/100 WBC (Bld) 83.9 % High 47-70 [facility] Nucleated red blood cell per centageOrdered By: Anderson Avila on 11-13-2024 Nucleated RBC/100 WBC (Bld) [Ratio] 0 % 0-5 [facility] Platelet countOrdered By: Leonel Avila on 11-13-2024 Platelets (Bld) [#/Vol] 141 10*3/uL Low 150-450 [facility] Potassium measurement (mass/ volume)Ordered By: Anderson Avila on 11-13-2024 Potassium (Unsp spec) [Mass/Vol] 4.1 mmol/L 3.3-5.1 [facility] RBC Auto (Bld) [#/Vol]Ordere d By: Anderson Avila on 11-13-2024 RBC (Bld) [#/Vol] 4.05 10*6/uL Low 4.2-5.4 [facility] Serum creatinine measurement (mass/volume)Ordered By: Anderson Avila on 11-13-2024 Creatinine [Mass/Vol] 2.16 mg/dL High 0.70-1.20 [facility] Serum glucose measurement (m ass/volume)Ordered By: Anderson Avila on 11-13-2024 Glucose [Mass/Vol] 115 mg/dL High 70-99 [facility] Serum or plasma calcium brittney urement (mass/volume)Ordered By: Anderson Avila on 11-13-2024 Calcium [Mass/Vol] 9.3 mg/dL 7.6-11.0 [facility] Serum or plasma urea nitroge n measurement (mass/volume)Ordered By: Anderson Avila on 11-13-2024 Urea nitrogen [Mass/Vol] 25 mg/dL High 4-19 [facility] Sodium levelOrdered By: Anderson Avila on 11-13-2024 Sodium [Moles/Vol] 142 mmol/L 133-145 [facility] White blood cell (WBC) count Ordered By: Anderson Avila on 11-13-2024 WBC (Bld) [#/Vol] 6.9 10*3/uL 4.4-11.0 [facility] CNPNon 10-25-2024 CNPN Telephone (AGFAMPLE) -------- AISSATOU BETTS ([id number]) 1990 F Date Time Provider Department 10/25/24 PAM YOST AGFAAUSTIN During your visit today, we recorded the following information about you: Pam Yost, DESK REPORTER.AIR TRANSPORTATION PROVIDER 10/25/2024 5:01 PM Signed Due for fasting labs. Orders placed. Charlotte Wisdom MA 10/25/2024 5:06 PM Signed Left message informing patient, phone number to reach the office was left for any questions or concerns. Charlotte Wisdom MA Allergies As of Date: 10/25/2024 Noted Allergy Reaction ATORVASTATIN 07/03/2015 16 - Unknown CATS 10/27/2010 12 - Shortness of Breath DROPERIDOL 08/06/2012 10 - Anaphylaxis LAXATIVE PILL 09/25/2019 8 - GI Upset MEPERIDINE 07/03/2015 16 - Unknown SENNOSIDES 09/25/2019 14 - Other: See Comments Date Reviewed: 09/18/2024 Reviewed by: Reema Resendez LPN - Fully Assessed Reason for Visit: Orders [681] Primary Visit Diagnosis:Chronic kidney disease, unspecified CKD stage [N18.9] Other Visit Diagnoses:Hypothyroidism , unspecified type [E03.9] Iron deficiency anemia, unspecified iron deficiency anemia type [D50.9] Order(s):TSH W/REFLEX FT4 [SQTSHRF] Order #: [id number] FUTURE COMPLETE BLOOD COUNT AND DIFFERENTIAL [SQCBCDIF] Order #: [id number] FUTURE IRON AND TIBC [SQIRON] Order #: [id number] FUTURE FERRITIN [SQFERR] Order #: [id number] FUTURE FOLATE, SERUM [SQSERFOL] Order #: [id number] FUTURE VITAMIN B12 [SQB12] Order #: [id number] FUTURE COMPREHENSIVE METABOLIC PANEL [SQCMP] Order #: [id number] FUTURE Prescriptions as of 10/25/2024 - omeprazole (PRILOSEC) 40 mg capsule Take 1 capsule by mouth once daily. - buprenorphine-naloxone (SUBOXONE) 2-0.5 mg film once daily. - OTC PRODUCT Vitamin D drops - levothyroxine (SYNTHROID) 50 mcg tablet Take 1 tablet by mouth daily at 6 am. - valACYclovir (VALTREX) 500 mg tablet Take 1 tablet by mouth once daily. - SUMAtriptan (IMITREX) 100 mg tablet Take 1 tablet (100 mg) by mouth as needed for migraine headache (see administration instructions) (do not use on more than 2 dyas per week.). May repeat dose after 2 hours if needed. Maximum daily dose is 200 mg per day. No more than 9 doses in a month. - ADVAIR DISKUS 500-50 mcg/dose dsdv Inhale 1 Puff as instructed two times a day. RINSE AND GARGLE MOUTH WITH WATER AFTER EACH USE. - montelukast (SINGULAIR) 10 mg tablet Take 1 tablet by mouth daily at bedtime. - ondansetron orally disintegrating (ZOFRAN ODT) 4 mg disintegrating tablet Take 1 tablet by mouth every 8 hours as needed for nausea/vomiting. - hydrOXYzine HCl (ATARAX) 50 mg tablet - gabapentin (NEURONTIN) 100 mg capsule Take 1 capsule by mouth three times a day for 12 doses. Do not start before September 16, 2023. - zinc sulfate 220 mg (50 mg zinc) capsule Take 1 capsule by mouth once daily for 21 days. - etonogestrel (NEXPLANON) subdermal implant 68 mg 1 Each by SUBDERMAL route as directed. - VITAMIN D-3 50 mcg (2,000 unit) cap Take 1 capsule by mouth once daily. - VITAMIN B-12 500 mcg tab tab(s) Take 1 tablet by mouth once daily. Meds Comments as of 03/23/2013: Pt. Denies taking any home medications Problem List As Of Date 10/25/2024 Noted Resolved Hodgkin lymphoma (HCC) [C81.90] 10/22/2010 Backache, unspecified [M54.9] 04/19/2011 Cervicalgia [M54.2] 04/19/2011 Depression [F32.A] 10/12/2011 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] 2011 Decreased hearing [H91.90] Bipolar 1 disorder (HCC) [F31.9] Left flank pain [R10.9] 02/19/2014 07/31/2018 Pyelonephritis [N12] 02/19/2014 09/12/2023 Substance abuse (HCC) [F19.10] 02/19/2014 DAQUAN (acute kidney injury) (HCC) [N17.9] 03/27/2014 09/10/2023 Nausea and vomiting [R11.2] 03/27/2014 07/31/2018 Numbness [R20.0] 06/28/2014 Trichomoniasis [A59.9] 07/31/2018 History of imperforate anus [Z87.738] 07/31/2018 Other specified hypothyroidism [E03.8] 07/31/2018 History of delivery [Z98.891] 07/31/2018 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] 07/31/2018 UTI (urinary tract infection) in , ant*07/31/2018 Chronic hepatitis C without hepatic coma (HCC) *07/31/2018 Iron deficiency anemia [D50.9] 07/31/2018 Social problem [Z60.9] 07/31/2018 History of delivery [Z87.51] 07/31/2018 Tobacco use disorder [F17.200] 07/31/2018 Buprenorphine maintenance treatment affecting p*07/31/2018 Supervision of high risk , antepartum *07/31/2018 Dizziness [R42] 12/21/2021 Acute kidney injury (HCC) [N17.9] 09/10/2023 Anxiety [F41.9] 09/10/2023 09/12/2023 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 Normal [facility] Urine Cultureon 10-13-2024 URC Below infection leve l. Mixed Gram Positive Organisms [place] Count 1000-10,000 MIXC Mixed contaminants. Submit a new specimen if indicated. Normal [facility] Comment on above: Performed By: #### M 100.2200 ####[facility] [id number] [facility] [place], [address] Bilirubin Test strip Ql (U)O rdered By: Ashlee Barreto on 10-11-2024 Bilirubin Ql (U) Negative Negative [facility] Emergency Department Summary on 10-11-2024 Emergency Department Summary [facility] Medical Records Department [address] [place] [address] Emergency Department Summary 10/11/24 MR#: [id number] Acct: [id number] Name: AISSATOU BETTS Rep #: [id number] : 1990 33 From: Ashlee Barreto DO PCP: BRANDON Ruiz Status:REG ER Location: ED HPI History of Present Illness Chief Complaint: Nausea/Vomiting Informant: patient Narrative Narrative: Patient is a 33-year-old female presenting with back pain and concern for urinary tract infection. She states she has a history of CKD, congenital solitary kidney, drug abuse (on Suboxone) and frequent urinary tract infections. She states that she has had 1 month of intermittent nausea and vomiting. Last vomiting was 2 days ago). She has been having chills and hot flashes. Over the past 2 to 3 days she developed some low back pain that radiates up to the right side of her back. She has chronic hematuria denies any change in this. Denies any dysuria. Denies excess abdominal pain or fevers (but does report chills and feeling flushed). She is concerned that she could have urinary tract infection and came to the ER. She notes she is currently between insurance which is why she came here instead of following up with urology or PCP. She has a Nexplanon and is not concern for . She does note that with her symptoms of her nausea/vomiting she has taken test which have been negative. Tonight she had a hard time getting through her shift because of her pain and this triggered her to come in. She did not take anything for pain prior to arrival. No other complaints or concerns reported at this time. [facility] Medical History Substance abuse Alcohol abuse Bipolar disorder Hyperthyroidism Kidney disease Pancreatitis Tobacco abuse COVID-19 Flu vaccine need Tachycardia IBS (irritable bowel syndrome) Wears glasses Depression Anxiety History of renal disease Hepatitis Migraine headache Smoker History of imperforate anus Hydronephrosis Migraine Menometrorrhagia Deafness in left ear Pancreatitis Chronic headaches Drug abuse Asthma Anemia Seasonal allergies demise > 22 weeks, delivered, current hospitalization Home Medications ???Medication ???Instructions ???Recorded ???Last Taken ???Type sertraline 25 mg tablet 25 mg PO DAILY depression #90 tabs 08/26/21 10/20/21 Rx buprenorphine 4 mg-naloxone 1 mg 1 film sublingual BID ADDICTION 10/21/21 History sublingual film (Suboxone) valacyclovir 500 mg tablet 500 mg PO DAILY INFECTION 10/21/21 10/20/21 History losartan 25 mg tablet 25 mg PO DAILY #0 tabs 10/24/21 Un known Rx aripiprazole 10 mg tablet 10 mg PO DAILY MOOD #30 tabs 10/27 Unknown Rx levothyroxine 150 mcg tablet 150 mcg PO DAILY THYROID #30 tabs 10/27/21 Unknown Rx amitriptyline 10 mg tablet 10 mg PO QHS 08/03/23 Unknown Hist ory rimegepant 75 mg disintegrating 75 mg PO DAILY PRN migraine Unknown History tablet (Nurtec ODT) headache ondansetron 4 mg disintegrating 4 mg PO Q8H PRN PRN Nausea #20 tab s 09/09/23 Unknown Rx tablet metoclopramide HCl 10 mg tablet 10 mg PO Q6H PRN nausea and Unknown Rx (Reglan) vomiting #14 tabs ondansetron 4 mg disintegrating 4 mg PO Q8H PRN PRN Nausea #10 tab s 12/27/23 Unknown Rx tablet gabapentin 100 mg capsule 100 mg PO TID 10/10/24 Unknown His tory cephalexin 500 mg capsule 500 mg PO Q12 #14 CAPSULES 5 Unknown Rx ondansetron 4 mg disintegrating 4 mg PO Q8H PRN PRN Nausea #15 tab s 10/11/24 Unknown Rx tablet Allergy/AdvReac Type Severity Reaction Status Date / Time ceftriaxone (From Rocephin) Allergy Unknown Verified 10/10/24 23:33 ceftriaxone sodium (From Allergy Hives Verified 10/10/24 23:33 Rocephin) droperidol Allergy Unknown Verified 10/10/24 23:33 Family History Mother Depression Hypertension Mental disorder Thyroid disorder Aunt Diabetes Grandfather Alcoholism Cancer Surgical History History of removal of Port-a-Cath Hx of surgical procedure Hx of cystoscopy Social History household members: none Smoking Status: Current every day smoker tobacco type: cigarettes alcohol intake: never substance use type: crack/cocaine, heroin and other details: Currently snorts 1/2 gm daily of each heroin and cocaine. Also uses meth. what type of physical activity do you participate in: aerobics and weight training frequency: 3-4 times per week ROS ROS ED Constitutional Constitutional ED: Reports chills, fever(s) and subjective Gastrointestinal Gastrointestinal (more content not included)... Normal [facility] Epithelial cells.squamous LM Ql (Urine sed)Ordered By: Ashlee Barreto on 10-11-2024 Epithelial cells.squamous LM.HPF (Urine sed) [#/Area] 10 /[HPF] 5-10 [facility] Glucose Ql (U)Ordered By: Kevin Barreto on 10-11-2024 Glucose (U) [Mass/Vol] 50 mg/dL High Normal [facility] Ketones Test strip Ql (U)Ord ered By: Ashlee Barreto on 10-11-2024 Ketones Ql (U) Negative Negative [facility] Microscopic analysis of urin e for red blood cells (RBC)Ordered By: Ashlee Barreto on 10-11-2024 Microscopic analysis of urine for red blood cells (RBC) 0-5 SEEN /hpf 0-5 [facility] Urine RBC 0-5 SEEN /hpf 0-5 [facility] Mucus LM Ql (Urine sed)Order ed By: Ashlee Barreto on 10-11-2024 Mucus Ql (Urine sed) 0 SEEN /hpf [facility] Nitrite Test strip Ql (U)Ord ered By: Ashlee Barreto on 10-11-2024 Nitrite Ql (U) Negative Negative [facility] ,Urineon 10-11-2024 Beta HCG ( test) Ql (U) Negative Normal [facility] Comment on above: Result Comment: Very dilute urine specimens, as indicated by a low specific gravity, may not contain customer service representative teacher levels of hCG. If is still suspected, a first morning urine specimen should be collected 48 hours later and tested. Performed By: #### L 400.0001, L400.7600 ####[facility] [address] [facility]. [place], [place], [id number] Protein Test strip Ql (U)Ord ered By: Ashlee Barreto on 10-11-2024 Protein Ql (U) TNP [facility] Comment on above: Test not performed Protein, Urine (Random)on Protein (U) [Mass/Vol] 164.0 mg/dL High 0.0-12.0 [facility] Comment on above: Performed By: #### L 501.1930 ####[facility] [address] [facility] [place], [place], [id number] Squamous epithelial cells de tection in urine sediment by light microscopyOrdered By: Ashlee Barreto on 10-11-2024 Epithelial cells.squamous LM Ql (Urine sed) 10-25 SEEN /hpf 5-10 [facility] Urinalysis, Completeon 10-11 BACTERIA 1+ /hpf Normal None Seen [facility] Comment on above: Order Comment: CLEAN CATCH Performed By: #### L 400.0001, L400.7600 ####[facility] [address] [place], [address] EPI,SQUAMOUS 10-25 SEEN Normal 5-10 [facility] Comment on above: Order Comment: CLEAN CATCH Performed By: #### L 400.0001, L400.7600 ####[facility] [address] [place], [address] RBC 0-5 SEEN Normal 0-5 [facility] Comment on above: Order Comment: CLEAN CATCH Performed By: #### L 400.0001, L400.7600 ####[facility] [address] [place], [address] WBC 10-25 SEEN Normal 0-5 [facility] Comment on above: Order Comment: CLEAN CATCH Performed By: #### L 400.0001, L400.7600 ####[facility] [address] [place], [address] Mucus Ql (Urine sed) 0 SEEN Normal [facility] Comment on above: Order Comment: CLEAN CATCH Performed By: #### L 400.0001, L400.7600 ####[facility] [address] [place], [address] Urine blood detectionOrdered By: Ashlee Barreto on 10-11-2024 Urine Occult Blood 10 /ul High Negative [facility] Urine clarityOrdered By: Trang Barreto on 10-11-2024 Clarity (U) Clear Clear [facility] Urine color determinationOrd ered By: Ashlee Barreto on 10-11-2024 Color (U) Yellow Yellow [facility] Urine cultureOrdered By: Trang Barerto on 10-11-2024 Bacteria identified Cx Nom (U) Positive Abnormal [facility] Urine glucose detectionOrder ed By: Ashlee Barreto on 10-11-2024 Glucose Ql (U) 50 mg/dl High Normal [facility] Urine leukocyte esterase det ection by dipstickOrdered By: Ashlee Barreto on 10-11-2024 Leukocyte esterase Test strip Ql (U) 25 /ul High Negative [facility] Urine pHOrdered By: Ashlee pinto on 10-11-2024 pH (U) 6.0 [pH] 5.0 - 8.0 [facility] Urine testOrdered By: Ashlee Barreto on 10-11-2024 HCG ( test) Ql (U) Negative [facility] Comment on above: Very dilute urine sp ecimens, as indicated by a low specificgravity, may not contain customer service representative teacher levels of hCG. If is still suspected, a first morning urinespecimen should be collected 48 hours later and tested. Urine protein measurement (m ass/volume)Ordered By: Ashlee Barreto on 10-11-2024 Protein (U) [Mass/Vol] 164.0 mg/dL High 0.0-12.0 [facility] Urine sediment bacteria coun t by microscopy (number/high power field)Ordered By: Ashlee Barreto on 10-11-2024 Bacteria LM.HPF (Urine sed) [#/Area] 1 /[HPF] None Seen [facility] Urine specific gravity measu rementOrdered By: Ashlee Barreto on 10-11-2024 Specific gravity (U) [Rel density] 1.010 1.002-1.030 [facility] Urine urobilinogen measureme ntOrdered By: Ashlee Barreto on 10-11-2024 Urobilinogen Ql (U) Normal mg/dl Normal [facility] Urobilinogen Ql (U)Ordered B y: Ashlee Barreto on 10-11-2024 Urine Urobilinogen Normal mg/dl Normal [facility] White blood cell countOrdere d By: Ashlee Barreto on 10-11-2024 Urine WBC 10-25 SEEN /hpf 0-5 [facility] White blood cell count 10-25 SEEN /hpf 0-5 [facility] CNOVon 09-18-2024 CNOV Office Visit (AGINTM ROMAIN) -------- AISSATOU BETTS ([id number]) 1990 F Date Time Provider Department 09/18/24 7:40 AM SHERI ALEJANDRO AGINTMLW During your visit today, we recorded the following information about you: Temperature Pulse Respiration Blood pressure 97.8 degrees 68/minute 18/minute 100/70 Weight Height 55.3 kg 1.753 m Sheri Alejandro, DESK REPORTER.AIR TRANSPORTATION PROVIDER 09/18/2024 1:06 PM Signed This note was created using [employer]. Subjective Aissatou Betts is a 33 year old female patient of SAND FILLER Queden here today for acute visit for vomiting. This is not new and has hx of this. She reports this episode has been occurring x 3 wks. She reports she has been to the ER. She went to ER on 09/04/24. She reports they ran tests. She reports she had CT of abd. She reports she was told everything was fine. She was given omeprozale. Results of CT not available. Pt has hx of one kidney and abnormal kidney fxn. She does not see nephrology. She reports left sided mid back pain UA showed trace blood, protein and glucose. I do not have CT results She reports nausea Is constant. States she has vomited 1-2x/day over the past 3 days. She has zofran at home and has been taking this without relief She was concerned of noting dx of neoplasm on her chart. States she screened shot it but its gone off her chart now. She reports has constant acid feeling. She was given prilosec in ER. She reports had urine test and was negative. States Nexplanon was placed in 2022. Latest Ref Rng 09/03/2024 GLUCOSE UA (POCT) Negative mg/dL 100 ! BILIRUBIN UA (POCT) Negative Negative KETONE UA (POCT) Negative mg/dL Negative SPECIFIC GRAVITY UA (POCT) 1.005 - 1.030 1.020 HEMOGLOBIN/BLOOD UA (POCT) Negative Trace-intact ! PH UA (POCT) 4.5 - 8.0 6.5 PROTEIN UA (POCT) Negative mg/dL >=300 ! UROBILINOGEN UA (POCT) Normal E.U./dL 0.2 NITRITE UA (POCT) Negative Negative LEUKOCYTES UA (POCT) Negative Negative COLOR UA (POCT) Yellow CLARITY UA (POCT) Clear Culture >=100,000 CFU/ml Normal urogenital cintia Legend: ! Abnormal ALLERGIES Allergen Reactions Atorvastatin Unknown Cats Shortness of Breath Droperidol Anaphylaxis Laxative Pill GI Upset Meperidine Unknown Sennosides Other: See Comments Current Outpatient Medications Medication Sig Dispense Refill buprenorphine-naloxone (SUBOXONE) 2-0.5 mg film once daily. OTC PRODUCT Vitamin D drops levothyroxine (SYNTHROID) 50 mcg tablet Take 1 tablet by mouth daily at 6 am. 90 tablet 1 valACYclovir (VALTREX) 500 mg tablet Take 1 tablet by mouth once daily. 90 tablet 1 SUMAtriptan (IMITREX) 100 mg tablet Take 1 tablet (100 mg) by mouth as needed for migraine headache (see administration instructions) (do not use on more than 2 dyas per week.). May repeat dose after 2 hours if needed. Maximum daily dose is 200 mg per day. No more than 9 doses in a month. 9 tablet 5 ADVAIR DISKUS 500-50 mcg/dose dsdv Inhale 1 Puff as instructed two times a day. RINSE AND GARGLE MOUTH WITH WATER AFTER EACH USE. 1 Each 5 montelukast (SINGULAIR) 10 mg tablet Take 1 tablet by mouth daily at bedtime. 30 tablet 5 ondansetron orally disintegrating (ZOFRAN ODT) 4 mg disintegrating tablet Take 1 tablet by mouth every 8 hours as needed for nausea/vomiting. 30 tablet 11 hydrOXYzine HCl (ATARAX) 50 mg tablet 1 tablet Orally Four times a day (Patient not taking: Reported on 08/14/2024) gabapentin (NEURONTIN) 100 mg capsule Take 1 capsule by mouth three times a day for 12 doses. Do not start before September 16, 2023. 12 capsule 0 zinc sulfate 220 mg (50 mg zinc) capsule Take 1 capsule by mouth once daily for 21 days. 21 capsule 0 etonogestrel (NEXPLANON) subdermal implant 68 mg 1 Each by SUBDERMAL route as directed. 1 Each 0 VITAMIN D-3 50 mcg (2,000 unit) cap Take 1 capsule by mouth once daily. VITAMIN B-12 500 mcg tab tab(s) Take 1 tablet by mouth once daily. No current facility-administered medications for this visit. ACTIVE PROBLEM LIST Hodgkin Lymphoma (Hcc) Backache, Unspecified Cervicalgia Depression Congenital Solitary Kidney Decreased Hearing Bipolar 1 Disorder (Hcc) Substance abuse (HCC) Numbness Trichomoniasis History of Imperforate Anus Other Specified Hypothyroidism History of Delivery Uterus Didelphys Uti (Urinary Tract Infection) in , Antepartum Chronic Hepatitis C Without Hepatic Coma (Hcc) Iron Deficiency Anemia Social Problem History of Delivery Tobacco Use Disorder Buprenorphine Maintenance Treatment Affecting (Hcc) Supervision of High Risk , Antepartum Dizziness Acute Kidney Injury (Hcc) Vater/Vaterl Syndrome Ptsd (Post-Traumatic Stress Disorder) Zinc Deficiency Anxiety Disorder Vesicoureteral Reflux With Resulting Kidney Disease Vitamin D Deficiency Moderate Persistent Asthma Without Complicatio (more content not included)... Normal [facility] 09-17-2024 CNPN Telephone (AGFAMPLE) -------- AISSATOU BETTS ([id number]) 1990 F Date Time Provider Department 09/17/24 PAM YOST During your visit today, we recorded the following information about you: Manju Mckee RN 09/17/2024 1:48 PM Signed Patient calling in and states she has noted a diagnosis of malignant neoplasm, added to her record on 07/11/24. Patient asking if provider could explain this, as she is concerned about this diagnosis. KIERA Macias Brittny A, DESK REPORTER.[facility] [place] 09/17/2024 2:23 PM Signed I did not place that, it was there previously but it appears that it was in relation to her previous Hodgkin's Lymphoma. I will remove that from her problem list. Manju Mckee RN 09/18/2024 8:39 AM Signed Patient notified. Manju Mckee RN Allergies As of Date: 09/17/2024 Noted Allergy Reaction ATORVASTATIN 07/03/2015 16 - Unknown CATS 10/27/2010 12 - Shortness of Breath DROPERIDOL 08/06/2012 10 - Anaphylaxis LAXATIVE PILL 09/25/2019 8 - GI Upset MEPERIDINE 07/03/2015 16 - Unknown SENNOSIDES 09/25/2019 14 - Other: See Comments Date Reviewed: 09/03/2024 Reviewed by: Kyleigh Matias APRN.AIR TRANSPORTATION PROVIDER - Fully Assessed Reason for Visit: Patient Question [1477] Prescriptions as of 09/18/2024 - omeprazole (PRILOSEC) 40 mg capsule Take 1 capsule by mouth once daily. - buprenorphine-naloxone (SUBOXONE) 2-0.5 mg film once daily. - OTC PRODUCT Vitamin D drops - levothyroxine (SYNTHROID) 50 mcg tablet Take 1 tablet by mouth daily at 6 am. - valACYclovir (VALTREX) 500 mg tablet Take 1 tablet by mouth once daily. - SUMAtriptan (IMITREX) 100 mg tablet Take 1 tablet (100 mg) by mouth as needed for migraine headache (see administration instructions) (do not use on more than 2 dyas per week.). May repeat dose after 2 hours if needed. Maximum daily dose is 200 mg per day. No more than 9 doses in a month. - ADVAIR DISKUS 500-50 mcg/dose dsdv Inhale 1 Puff as instructed two times a day. RINSE AND GARGLE MOUTH WITH WATER AFTER EACH USE. - montelukast (SINGULAIR) 10 mg tablet Take 1 tablet by mouth daily at bedtime. - ondansetron orally disintegrating (ZOFRAN ODT) 4 mg disintegrating tablet Take 1 tablet by mouth every 8 hours as needed for nausea/vomiting. - hydrOXYzine HCl (ATARAX) 50 mg tablet - gabapentin (NEURONTIN) 100 mg capsule Take 1 capsule by mouth three times a day for 12 doses. Do not start before September 16, 2023. - zinc sulfate 220 mg (50 mg zinc) capsule Take 1 capsule by mouth once daily for 21 days. - etonogestrel (NEXPLANON) subdermal implant 68 mg 1 Each by SUBDERMAL route as directed. - VITAMIN D-3 50 mcg (2,000 unit) cap Take 1 capsule by mouth once daily. - VITAMIN B-12 500 mcg tab tab(s) Take 1 tablet by mouth once daily. Meds Comments as of 03/23/2013: Pt. Denies taking any home medications Problem List As Of Date 09/17/2024 Noted Resolved Hodgkin lymphoma (HCC) [C81.90] 10/22/2010 Backache, unspecified [M54.9] 04/19/2011 Cervicalgia [M54.2] 04/19/2011 Depression [F32.A] 10/12/2011 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] 2011 Decreased hearing [H91.90] Bipolar 1 disorder (HCC) [F31.9] Left flank pain [R10.9] 02/19/2014 07/31/2018 Pyelonephritis [N12] 02/19/2014 09/12/2023 Substance abuse (HCC) [F19.10] 02/19/2014 DAQUAN (acute kidney injury) (HCC) [N17.9] 03/27/2014 09/10/2023 Nausea and vomiting [R11.2] 03/27/2014 07/31/2018 Numbness [R20.0] 06/28/2014 Trichomoniasis [A59.9] 07/31/2018 History of imperforate anus [Z87.738] 07/31/2018 Other specified hypothyroidism [E03.8] 07/31/2018 History of delivery [Z98.891] 07/31/2018 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] 07/31/2018 UTI (urinary tract infection) in , ant*07/31/2018 Chronic hepatitis C without hepatic coma (HCC) *07/31/2018 Iron deficiency anemia [D50.9] 07/31/2018 Social problem [Z60.9] 07/31/2018 History of delivery [Z87.51] 07/31/2018 Tobacco use disorder [F17.200] 07/31/2018 Buprenorphine maintenance treatment affecting p*07/31/2018 Supervision of high risk , antepartum *07/31/2018 Dizziness [R42] 12/21/2021 Acute kidney injury (HCC) [N17.9] 09/10/2023 Anxiety [F41.9] 09/10/2023 09/12/2023 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 PTSD (post-traumatic stress disorder) [F43.10] 09/11/2023 Zinc deficiency [E60] 09/12/2023 Anxiety disorder [F41.9] 11/08/2023 Vesicoureteral reflux with resulting kidney dis*07/11/2024 Vitamin D deficiency [E55.9] 03/04/2022 Moderate persistent asthma without complication*11/21/2022 Migraine [G43.909] 03/04/2022 Malignant neoplasm (HCC) [C80.1] 07/11/2024 09/17/2024 Idiopathic peripheral neuropathy [G60.9] 07/16/2015 Hydronephrosis [N13.30] 03/04/2022 Hx of adenomatous polyp of colon [Z86.0101] 01/17/2020 History of manic depressive disorder [Z86.59] 07/11/2024 Drug abuse, daily use (HCC) [F19.10] (more content not included)... Normal [facility] Abdomen/Pelvis without Conto n 09-04-2024 Abdomen/Pelvis without Cont [facility] [address], [place] [address] Abdomen/Pelvis without Cont MR#: [id number] Acct: [id number] Name: AISSATOU BETTS Rep #: [id number] : 1990 F 33 From: Eugene Carson PCP: Dr. Veronika Ferrer MD Status: REG ER Study: Abdomen/Pelvis without Cont Date of Exam: 08/24 08/20 Exam# [id number] Ordering Dr: Collin Arechiga MD PROCEDURE: CT abdomen pelvis without IV contrast REASON FOR EXAM: PAIN TECHNIQUE: Multiple contiguous axial images through the abdomen and pelvis were obtained without the administration of intravenous contrast. Two-dimensional coronal and sagittal reformatted images were reconstructed. Low-dose imaging technique was utilized. COMPARISON: 01/16/2024 FINDINGS: Lung bases are clear. Unenhanced liver, spleen, pancreas and adrenal glands are within normal limits. Gallbladder is contracted. No significant biliary ductal dilation. Right kidney is not present within the right renal fossa. Unchanged mild/moderate left hydroureteronephrosis without an obstructing calculus. Abnormal lobular morphology of the left kidney, similar to prior exams. Unchanged soft tissue density in the right adnexa which may represent a pelvic kidney. Urinary bladder is within normal limits. No bowel obstruction, focal bowel wall thickening or significant perienteric inflammation. No pelvic free fluid. No free air. No abdominal aortic aneurysm or bulky adenopathy. Superficial soft tissues are intact. No acute osseous abnormality. CT/Abdomen/Pelvis without Cont IMPRESSION: 1. No definite acute process. 2. Unchanged mild/moderate left hydroureteronephrosis without an obstructing calculus. 3. Probable right pelvic kidney, unchanged from prior. One or more dose reduction techniques were used (e.g., Automated exposure control, adjustment of the mA and/or kV according to patient size, use of iterative reconstruction technique). Reading Location: [facility] CC: Dr. Collin Arechiga MD; Dr. 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 Normal [facility] Absolute lymphocyte countOrd ered By: Collin Arechiga on 09-04-2024 Lymphocytes Auto (Unsp spec) [#/Vol] 1.24 10*3/uL 0.83-4.51 [facility] Absolute neutrophil countOrd ered By: Collin Arechiga on 09-04-2024 Neutrophils (Bld) [#/Vol] 3.9 10*3/uL 2.0-7.7 [facility] Anion gap in Serum or Plasma Ordered By: Collin Arechiga on 09-04-2024 Anion gap [Moles/Vol] 11 mmol/L 5-15 [facility] Automated lymphocyte count a s percentage of total leukocytesOrdered By: Collin Arechiga on 09-04-2024 Lymphocytes/100 WBC Auto (Unsp spec) 22.9 % 19-41 [facility] BUN/creatinine ratioOrdered By: Collin Arechiga on 09-04-2024 Urea nitrogen/Creatinine [Mass ratio] 10.8 mg/mg 10-20 [facility] Bacteria LM.HPF (Urine sed) [#/Area]Ordered By: Collin Arechiga on 09-04-2024 Urine Bacteria RARE /hpf None Seen [facility] Basophil percentageOrdered B y: Collin Arechiga on 09-04-2024 Basophils/100 WBC (Bld) 0.7 % 0-1 [facility] Beta HCG ( test) Ql Ordered By: Collin Arechiga on 09-04-2024 Serum Test, Qualitative Negative [facility] Bilirubin Test strip Ql (U)O rdered By: Collin Arechiga on 09-04-2024 Bilirubin Ql (U) Negative Negative [facility] Bilirubin, totalOrdered By: Collin Arechiga on 09-04-2024 Bilirubin [Mass/Vol] 0.23 mg/dL 0.00-1.30 [facility] CBC W/Diff, Automatedon 08-24-2024 Absolute Lymph 1.24 X10 3/uL Normal 0.83-4.51 [facility] Comment on above: Performed By: #### L 501.2450, L700.6800, L100.0100, L500.4050 #### [facility] [address] [place], [address] Absolute Neut 3.9 X10 3/uL Normal 2.0-7.7 [facility] Comment on above: Performed By: #### L 501.2450, L700.6800, L100.0100, L500.4050 #### [facility] [address] [place], [address] Basophils/100 WBC (Bld) 0.7 % Normal 0-1 [facility] Comment on above: Performed By: #### L 501.2450, L700.6800, L100.0100, L500.4050 #### [facility] [address] [place], [address] Eosinophils/100 WBC (Bld) 0.7 % Normal 0-5 [facility] Comment on above: Performed By: #### L 501.2450, L700.6800, L100.0100, L500.4050 #### [facility] [address] [place], [address] Erythrocyte distribution width (RBC) [Ratio] 12.3 % Normal 11.6-14.6 [facility] Comment on above: Performed By: #### L 501.2450, L700.6800, L100.0100, L500.4050 #### [facility] [address] [place], [address] Hematocrit (Bld) [Volume fraction] 32.9 % Low 37-47 [facility] Comment on above: Performed By: #### L 501.2450, L700.6800, L100.0100, L500.4050 #### [facility] [address] [place], [address] Hemoglobin (Bld) [Mass/Vol] 10.9 g/dL Low 12.0-15.0 [facility] Comment on above: Performed By: #### L 501.2450, L700.6800, L100.0100, L500.4050 #### [facility] [address] [place], [address] IG% 0.400 Normal 0.0-0.9 [facility] Comment on above: Result Comment: IG% - Immature Granulocytes (promyelocytes, myelocytes and metamyelocytes) > 1% indicates that a LEFT SHIFT is Present. Performed By: #### L 501.2450, L700.6800, L100.0100, L500.4050 #### [facility] [address] [place], [address] Lymphocytes/100 WBC (Bld) 22.9 % Normal 19-41 [facility] Comment on above: Performed By: #### L 501.2450, L700.6800, L100.0100, L500.4050 #### [facility] [address] [place], [address] MCH (RBC) [Entitic mass] 28.9 pg Normal 27.0-32.0 [facility] Comment on above: Performed By: #### L 501.2450, L700.6800, L100.0100, L500.4050 #### [facility] [address] [place], [address] MCHC (RBC) [Mass/Vol] 33.1 g/dL Normal 32-36 [facility] Comment on above: Performed By: #### L 501.2450, L700.6800, L100.0100, L500.4050 #### [facility] [address] [place], [address] MCV (RBC) [Entitic vol] 87.3 fL Normal 81-99 [facility] Comment on above: Performed By: #### L 501.2450, L700.6800, L100.0100, L500.4050 #### [facility] [address] [place], [address] Monocytes/100 WBC (Bld) 3.9 % Normal 0-10 [facility] Comment on above: Performed By: #### L 501.2450, L700.6800, L100.0100, L500.4050 #### [facility] [address] [place], [address] Neutrophils/100 WBC (Bld) 71.4 % High 47-70 [facility] Comment on above: Performed By: #### L 501.2450, L700.6800, L100.0100, L500.4050 #### [facility] [address] [place], [address] Nucleated RBC (Bld) [#/Vol] 0 10*3/uL Normal 0-5 [facility] Comment on above: Performed By: #### L 501.2450, L700.6800, L100.0100, L500.4050 #### [facility] [address] [place], [address] Platelet mean volume (Bld) [Entitic vol] 10.4 fL Normal 6.2-12.0 [facility] Comment on above: Performed By: #### L 501.2450, L700.6800, L100.0100, L500.4050 #### [facility] [address] [place], [address] Platelets (Bld) [#/Vol] 167 10*3/uL Normal 150-450 [facility] Comment on above: Performed By: #### L 501.2450, L700.6800, L100.0100, L500.4050 #### [facility] [address] [place], [address] RBC (Bld) [#/Vol] 3.77 10*6/uL Low 4.2-5.4 [facility] Comment on above: Performed By: #### L 501.2450, L700.6800, L100.0100, L500.4050 #### [facility] [address] [place], [address] RDW SD 39.8 fl Normal 35.1-43.9 [facility] Comment on above: Performed By: #### L 501.2450, L700.6800, L100.0100, L500.4050 #### [facility] [address] [place], [address] WBC (Bld) [#/Vol] 5.4 10*3/uL Normal 4.4-11.0 [facility] Comment on above: Performed By: #### L 501.2450, L700.6800, L100.0100, L500.4050 #### [facility] [address] [place], [address] Carbon dioxide, total [Moles /volume] in Central venous bloodOrdered By: Collin Arechiga on 09-04-2024 CO2 [Moles/Vol] 22.3 mmol/L 21.0-32.0 [facility] Chloride assayOrdered By: Brendon Arechiga on 09-04-2024 Chloride [Moles/Vol] 102 mmol/L 98-108 [facility] Comprehensive Metabolic Prof ilon 09-04-2024 Albumin [Mass/Vol] 3.9 g/dL Normal 3.5-5.0 [facility] Comment on above: Performed By: #### L 501.2450, L700.6800, L100.0100, L500.4050 ####[facility] [address] [place], [address] Albumin/Globulin [Mass ratio] 1.4 {ratio} Normal 0.9-2.4 [facility] Comment on above: Performed By: #### L 501.2450, L700.6800, L100.0100, L500.4050 ####[facility] [address] [place], [address] ALK PHOS 85 U/L Normal 35-104 [facility] Comment on above: Performed By: #### L 501.2450, L700.6800, L100.0100, L500.4050 ####[facility] [address] [place], [address] ALT [Catalytic activity/Vol] 12 U/L Normal <=34 [facility] Comment on above: Performed By: #### L 501.2450, L700.6800, L100.0100, L500.4050 ####[facility] [address] [place], [address] AST [Catalytic activity/Vol] 17 U/L Normal <=31 [facility] Comment on above: Performed By: #### L 501.2450, L700.6800, L100.0100, L500.4050 ####[facility] [address] [place], [address] Bilirubin [Mass/Vol] 0.23 mg/dL Normal 0.00-1.30 [facility] Comment on above: Performed By: #### L 501.2450, L700.6800, L100.0100, L500.4050 ####[facility] [address] [place], [address] BUN/CRE 10.8 RATIO Normal 10-20 [facility] Comment on above: Performed By: #### L 501.2450, L700.6800, L100.0100, L500.4050 ####[facility] [address] [place], [address] Calcium [Mass/Vol] 9.2 mg/dL Normal 7.6-11.0 [facility] Comment on above: Performed By: #### L 501.2450, L700.6800, L100.0100, L500.4050 ####[facility] [address] [place], [address] Chloride [Moles/Vol] 102 mmol/L Normal 98-108 [facility] Comment on above: Performed By: #### L 501.2450, L700.6800, L100.0100, L500.4050 ####[facility] [address] [place], [address] CO2 [Moles/Vol] 22.3 mmol/L Normal 21.0-32.0 [facility] Comment on above: Performed By: #### L 501.2450, L700.6800, L100.0100, L500.4050 ####[facility] [address] [place], [address] Creatinine [Mass/Vol] 2.24 mg/dL High 0.70-1.20 [facility] Comment on above: Performed By: #### L 501.2450, L700.6800, L100.0100, L500.4050 ####[facility] [address] [place], [address] ECRCL 31.21 ml/min Low 50-250 [facility] Comment on above: Performed By: #### L 501.2450, L700.6800, L100.0100, L500.4050 ####[facility] [address] [place], [address] GAP 11 Normal 5-15 [facility] Comment on above: Performed By: #### L 501.2450, L700.6800, L100.0100, L500.4050 ####[facility] [address] [place], [address] GFR/1.73 sq M.predicted among non-blacks MDRD (S/P/Bld) [Vol rate/Area] 29 mL/min/{1.73_m2} Low >60 [facility] Comment on above: Result Comment: mL/m in/1.73m2 CKD-EPI Creatinine Equation (2020) Performed By: #### L 501.2450, L700.6800, L100.0100, L500.4050 ####[facility] [address] [place], [address] Globulin (S) [Mass/Vol] 2.8 g/dL Normal 2.2-4.2 [facility] Comment on above: Performed By: #### L 501.2450, L700.6800, L100.0100, L500.4050 ####[facility] [address] [place], [address] Glucose [Mass/Vol] 126 mg/dL High 70-99 [facility] Comment on above: Performed By: #### L 501.2450, L700.6800, L100.0100, L500.4050 ####[facility] [address] [place], [address] Potassium [Moles/Vol] 4.1 mmol/L Normal 3.3-5.1 [facility] Comment on above: Performed By: #### L 501.2450, L700.6800, L100.0100, L500.4050 ####[facility] [address] [place], [address] Sodium [Moles/Vol] 135 mmol/L Normal 133-145 [facility] Comment on above: Performed By: #### L 501.2450, L700.6800, L100.0100, L500.4050 ####[facility] [address] [place], [address] T PROT 6.7 g/dL Normal 5.9-8.4 [facility] Comment on above: Performed By: #### L 501.2450, L700.6800, L100.0100, L500.4050 ####[facility] [address] [place], [address] Urea nitrogen [Mass/Vol] 24 mg/dL High 4-19 [facility] Comment on above: Performed By: #### L 501.2450, L700.6800, L100.0100, L500.4050 ####[facility] [address] [place], [address] Emergency Department Summary on 09-04-2024 Emergency Department Summary [facility] Medical Records Department [address] [place] [address] Emergency Department Summary 09/04/24 MR#: [id number] Acct: [id number] Name: AISSATOU BETTS Rep #: [id number] : 1990 33 From: Collin Arechiga MD PCP: Dr. Veronika Ferrer MD Status:REG ER Location: ED HPI HPI - GI History of Present Illness Chief Complaint: Nausea/Vomiting Narrative Narrative: 33-year-old female past medical history of stage IV kidney disease, solitary congenital kidney, history of Hodgkin's lymphoma, presents with nausea and vomiting that she has had for about a week. She states it is intermittent. Sometimes she is able to tolerate food, other times she is not. She denies any fevers or chills, and may have diffuse abdominal cramping but denies any epigastric pain. She does occasionally use marijuana and does take Suboxone. She is concerned that she be dehydrated as well. She is unsure as to the cause of why she vomits but she does state that she has been through multiple life stressors recently. [facility] Medical History Substance abuse Alcohol abuse Bipolar disorder Hyperthyroidism Kidney disease Pancreatitis Tobacco abuse COVID-19 Flu vaccine need Tachycardia IBS (irritable bowel syndrome) Wears glasses Depression Anxiety History of renal disease Hepatitis Migraine headache Smoker History of imperforate anus Hydronephrosis Migraine Menometrorrhagia Deafness in left ear Pancreatitis Chronic headaches Drug abuse Asthma Anemia Seasonal allergies demise > 22 weeks, delivered, current hospitalization Home Medications ???Medication ???Instructions ???Recorded ???Last Taken ???Type sertraline 25 mg tablet 25 mg PO DAILY depression #90 tabs 08/26/21 10/20/21 Rx buprenorphine 4 mg-naloxone 1 mg 1 film sublingual BID ADDICTION 10/21/21 History sublingual film (Suboxone) valacyclovir 500 mg tablet 500 mg PO DAILY INFECTION 10/21/21 10/20/21 History losartan 25 mg tablet 25 mg PO DAILY #0 tabs 10/24/21 Un known Rx aripiprazole 10 mg tablet 10 mg PO DAILY MOOD #30 tabs 10/27 Unknown Rx levothyroxine 150 mcg tablet 150 mcg PO DAILY THYROID #30 tabs 10/27/21 Unknown Rx amitriptyline 10 mg tablet 10 mg PO QHS 08/03/23 Unknown Hist ory montelukast 10 mg tablet 10 mg PO QHS 08/03/23 Unknown Hist ory rimegepant 75 mg disintegrating 75 mg PO DAILY PRN migraine Unknown History tablet (Nurtec ODT) headache ciprofloxacin HCl 500 mg tablet 500 mg PO BID #14 TABLETS 09/09/23 Unknown Rx ondansetron 4 mg disintegrating 4 mg PO Q8H PRN PRN Nausea #20 tab s 09/09/23 Unknown Rx tablet metoclopramide HCl 10 mg tablet 10 mg PO Q6H PRN nausea and Unknown Rx (Reglan) vomiting #14 tabs ondansetron 4 mg disintegrating 4 mg PO Q8H PRN PRN Nausea #10 tab s 12/27/23 Unknown Rx tablet ciprofloxacin HCl 250 mg tablet 250 mg PO BID #20 tabs 01/16/24 Un known Rx (Cipro) omeprazole 20 mg capsule,delayed 20 mg PO DAILY #14 CAPSULES Unknown Rx release ondansetron 4 mg disintegrating 4 mg PO Q8H PRN PRN Nausea #15 tab s 09/04/24 Unknown Rx tablet Allergy/AdvReac Type Severity Reaction Status Date / Time ceftriaxone (From Rocephin) Allergy Unknown Verified 09/04/24 15:07 ceftriaxone sodium (From Allergy Hives Verified 09/04/24 15:07 Rocephin) droperidol Allergy Unknown Verified 09/04/24 15:07 Family History Mother Depression Hypertension Mental disorder Thyroid disorder Aunt Diabetes Grandfather Alcoholism Cancer Surgical History History of removal of Port-a-Cath Hx of surgical procedure Hx of cystoscopy Social History household members: none Smoking Status: Current every day smoker tobacco type: cigarettes alcohol intake: never substance use type: crack/cocaine, heroin and other details: Currently snorts 1/2 gm daily of each heroin and cocaine. Also uses meth. what type of physical activity do you participate in: aerobics and weight training frequency: 3-4 times per week ROS ROS ED ROS Narrative Constitutional: No fever, no chills. Cardiovascular: No chest pain. No palpitations. No pedal edema. Respiratory: No cough, no shortness of breath. Abdominal: Diffuse abdominal pain. Positive nausea and vomiting, intermittent x 1 week, last today after eating. No joyce hematemesis. Genitourinary: No dysuria. No hematuria. Musculoskeletal: No myalgias. No arthralgias. Neurologic: No headaches. No dizziness. No lightheadedness. Psychiatric: No depression. No anxiety. EXAM Physical Exam Narrative Exam N (more content not included)... Normal [facility] Eosinophil percentageOrdered By: Collin Arechiga on 09-04-2024 Eosinophils/100 WBC (Bld) 0.7 % 0-5 [facility] Epithelial cells.squamous LM Ql (Urine sed)Ordered By: Collin Arechiga on 09-04-2024 Epithelial cells.squamous LM.HPF (Urine sed) [#/Area] 5 /[HPF] 5-10 [facility] Erythrocyte distribution wid th ratioOrdered By: Collin Arechiga on 09-04-2024 Erythrocyte distribution width (RBC) [Ratio] 12.3 % 11.6-14.6 [facility] Erythrocyte distribution wid th standard deviationOrdered By: Collin Arechiga on 09-04-2024 Erythrocyte distribution width (RBC) [Entitic vol] 39.8 fL 35.1-43.9 [facility] Erythrocyte distribution width (RBC) [Ratio] 39.8 fl 35.1-43.9 [facility] Estimation of creatinine carie aranceOrdered By: Collin Arechiga on 09-04-2024 Estimated Creatinine Clearance Calc 31.21 ml/min Low 50-250 [facility] GFR/1.73 sq M.predicted juliann g non-blacks MDRD (S/P/Bld) [Vol rate/Area]Ordered By: Collin Arechiga on 09-04-2024 Estimated GFR (MDRD) Non-Af Amer 29 Low >60 [facility] Comment on above: mL/min/1.73m2 CKD-EP I Creatinine Equation (2020) Glomerular filtration rate ( GFR) estimation/1.73 sq m using serum, plasma, or whole bOrdered By: Collin Arechiga on 09-04-2024 GFR/1.73 sq M.predicted among non-blacks MDRD (S/P/Bld) [Vol rate/Area] 29 mL/min/{1.73_m2} Low >60 [facility] Comment on above: mL/min/1.73m2 CKD-EP I Creatinine Equation (2020) Glucose Ql (U)Ordered By: Brendon Arechiga on 09-04-2024 Urine Glucose (UA) Normal mg/dl Normal [facility] Hematocrit Auto (Bld) [Volum e fraction]Ordered By: Collin Arechiga on 09-04-2024 Hematocrit (Bld) [Volume fraction] 32.9 % Low 37-47 [facility] Hemoglobin measurementOrdere d By: Collin Arechiga on 09-04-2024 Hemoglobin (Bld) [Mass/Vol] 10.9 g/dL Low 12.0-15.0 [facility] Immature granulocytes/100 WB C Auto (Bld)Ordered By: Collin Arechiga on 09-04-2024 Immature granulocytes/100 WBC (Bld) 0.400 % 0.0-0.9 [facility] Comment on above: IG% - Immature Granu locytes (promyelocytes, myelocytes and metamyelocytes) > 1% indicates that a LEFT SHIFT is Present. Ketones Test strip Ql (U)Ord ered By: Collin Arechiga on 09-04-2024 Ketones Ql (U) Negative Negative [facility] - Chemistry and C hemistry - challengeOrdered By: Collin Arechiga on 09-04-2024 AST [Catalytic activity/Vol] 17 U/L <32 [facility] Lipaseon 09-04-2024 Lipase [Catalytic activity/Vol] 42 U/L Normal 13-75 [facility] Comment on above: Result Comment: Plea se note: LIPASE revised reference range effective 22. New Lipase methodology. Expected to produce lower values than the previous assay method. NEW Reference Range: 13 - 75 U/L Performed By: #### L 501.2450, L700.6800, L100.0100, L500.4050 #### [facility] [address] [place] [address], [address] Lipase measurementOrdered By : Collin Arechiga on 09-04-2024 Lipase [Catalytic activity/Vol] 42 U/L 13-75 [facility] Comment on above: Please note:LIPASE r evised reference range effective 22. New Lipase methodology. Expected to produce lower values than the previous assay method. NEW Reference Range: 13 - 75 U/L Lymphocytes Auto (Unsp spec) [#/Vol]Ordered By: Collin Arechiga on 09-04-2024 Lymphocytes (Bld) [#/Vol] 1.24 10*3/uL 0.83-4.51 [facility] Lymphocytes/100 WBC Auto (Un sp spec)Ordered By: Collin Arechiga on 09-04-2024 Lymphocytes/100 WBC (Bld) 22.9 % 19-41 [facility] MCV (mean corpuscular volume ) determinationOrdered By: Collin Arechiga on 09-04-2024 MCV (RBC) [Entitic vol] 87.3 fL 81-99 [facility] Mean corpuscular hemoglobin (MCH) determinationOrdered By: Collin Arechiga on 09-04-2024 MCH (RBC) [Entitic mass] 28.9 pg 27.0-32.0 [facility] Mean corpuscular hemoglobin concentration (MCHC) determinationOrdered By: Collin Arechiga on 09-04-2024 MCHC (RBC) [Mass/Vol] 33.1 g/dL 32-36 [facility] Mean platelet volume determi nationOrdered By: Collin Arechiga on 09-04-2024 Platelet mean volume (Bld) [Entitic vol] 10.4 fL 6.2-12.0 [facility] Microscopic analysis of urin e for red blood cells (RBC)Ordered By: Collin Arechiga on 09-04-2024 Microscopic analysis of urine for red blood cells (RBC) 0 SEEN /hpf 0-5 [facility] Urine RBC 0 SEEN /hpf 0-5 [facility] Monocyte percentageOrdered B y: Collin Arechiga on 09-04-2024 Monocytes/100 WBC (Bld) 3.9 % 0-10 [facility] Mucus LM Ql (Urine sed)Order ed By: Collin Arechiga on 09-04-2024 Mucus Ql (Urine sed) 0 SEEN /hpf [facility] Neutrophil percentageOrdered By: Collin Arechiga on 09-04-2024 Neutrophils/100 WBC (Bld) 71.4 % High 47-70 [facility] Nitrite Test strip Ql (U)Ord ered By: Collin Arechiga on 09-04-2024 Nitrite Ql (U) Negative Negative [facility] Nucleated red blood cell per centageOrdered By: Collin Arechiga on 09-04-2024 Nucleated RBC/100 WBC (Bld) [Ratio] 0 % 0-5 [facility] Platelet countOrdered By: Brendon Arechiga on 09-04-2024 Platelets (Bld) [#/Vol] 167 10*3/uL 150-450 [facility] Potassium (Unsp spec) [Mass/ Vol]Ordered By: Collin Arechiga on 09-04-2024 Potassium [Moles/Vol] 4.1 mmol/L 3.3-5.1 [facility] Potassium measurement (mass/ volume)Ordered By: Collin Arechiga on 09-04-2024 Potassium (Unsp spec) [Mass/Vol] 4.1 mmol/L 3.3-5.1 [facility] ,Serum,hCG Quali.on 09-04-2024 HCG, SERUM QUAL Negative Normal [facility] Comment on above: Performed By: #### L 501.2450, L700.6800, L100.0100, L500.4050 #### [facility] [address] [place], [address] Protein Test strip Ql (U)Ord ered By: Collin Arechiga on 09-04-2024 Protein Ql (U) 100 mg/dl High Negative [facility] RBC Auto (Bld) [#/Vol]Ordere d By: Collin Arechiga on 09-04-2024 RBC (Bld) [#/Vol] 3.77 10*6/uL Low 4.2-5.4 [facility] Serum beta-hCG test, qualita tiveOrdered By: Collin Arechiga on 09-04-2024 Beta HCG ( test) Ql Negative [facility] Serum creatinine measurement (mass/volume)Ordered By: Collin Arechiga on 09-04-2024 Creatinine [Mass/Vol] 2.24 mg/dL High 0.70-1.20 [facility] Serum globulin measurementOr dered By: Collin Arechiga on 09-04-2024 Globulin (S) [Mass/Vol] 2.8 g/dL 2.2-4.2 [facility] Serum glucose measurement (m ass/volume)Ordered By: Collin Arechiga on 09-04-2024 Glucose [Mass/Vol] 126 mg/dL High 70-99 [facility] Serum or plasma alanine will otransferase (ALT) measurementOrdered By: Collin Arechiga on 09-04-2024 ALT [Catalytic activity/Vol] 12 U/L <35 [facility] Serum or plasma albumin brittney urement (mass/volume)Ordered By: Collin Arechiga on 09-04-2024 Albumin [Mass/Vol] 3.9 g/dL 3.5-5.0 [facility] Serum or plasma albumin/glob ulin mass ratioOrdered By: Collin Arechiga on 09-04-2024 Albumin/Globulin [Mass ratio] 1.4 {ratio} 0.9-2.4 [facility] Serum or plasma alkaline celine sphatase measurementOrdered By: Collin Arechiga on 09-04-2024 ALP [Catalytic activity/Vol] 85 U/L 35-104 [facility] Serum or plasma calcium brittney urement (mass/volume)Ordered By: Collin Arechiga on 09-04-2024 Calcium [Mass/Vol] 9.2 mg/dL 7.6-11.0 [facility] Serum or plasma urea nitroge n measurement (mass/volume)Ordered By: Collin Arechiga on 09-04-2024 Urea nitrogen [Mass/Vol] 24 mg/dL High 4-19 [facility] Sodium levelOrdered By: Collin Arechiga on 09-04-2024 Sodium [Moles/Vol] 135 mmol/L 133-145 [facility] Squamous epithelial cells de tection in urine sediment by light microscopyOrdered By: Collin Arechiga on 09-04-2024 Epithelial cells.squamous LM Ql (Urine sed) 5-10 SEEN /hpf 5-10 [facility] Total proteinOrdered By: Rimma Arechiga on 09-04-2024 Protein [Mass/Vol] 6.7 g/dL 5.9-8.4 [facility] Urinalysis, Completeon 09-04 BACTERIA RARE Normal None Seen [facility] Comment on above: Order Comment: NELLIE COOPER TO SPECIFY Performed By: #### L 400.0001 #### [facility] [address] [place], [address] RBC 0 SEEN Normal 0-5 [facility] Comment on above: Order Comment: NELLIE CTOR TO SPECIFY Performed By: #### L 400.0001 #### [facility] [address] [place], [address] WBC 0-5 SEEN Normal 0-5 [facility] Comment on above: Order Comment: COLLE CTOR TO SPECIFY Performed By: #### L 400.0001 #### [facility] [address] [place], [address] EPI,SQUAMOUS 5-10 SEEN Normal 5-10 [facility] Comment on above: Order Comment: COLLE CTOR TO SPECIFY Performed By: #### L 400.0001 #### [facility] [address] [place], [address] Mucus Ql (Urine sed) 0 SEEN Normal [facility] Comment on above: Order Comment: NELLIE CTOR TO SPECIFY Performed By: #### L 400.0001 #### [facility] [address] [place], [address] Urine blood detectionOrdered By: Collin Arechiga on 09-04-2024 Urine Occult Blood Negative Negative [facility] Urine clarityOrdered By: Rimma Arechiga on 09-04-2024 Clarity (U) Clear Clear [facility] Urine color determinationOrd ered By: Collin Arechiga on 09-04-2024 Color (U) Yellow Yellow [facility] Urine glucose detectionOrder ed By: Collin Arechiga on 09-04-2024 Glucose Ql (U) Normal mg/dl Normal [facility] Urine leukocyte esterase det ection by dipstickOrdered By: Collin Arechiga on 09-04-2024 Leukocyte esterase Test strip Ql (U) 25 /ul High Negative [facility] Urine pHOrdered By: Collin armstrong on 09-04-2024 pH (U) 6.5 [pH] 5.0 - 8.0 [facility] Urine sediment bacteria coun t by microscopy (number/high power field)Ordered By: Collin Arechiga on 09-04-2024 Bacteria LM.HPF (Urine sed) [#/Area] RARE /hpf None Seen [facility] Urine specific gravity measu rementOrdered By: Collin Garcíasabina on 09-04-2024 Specific gravity (U) [Rel density] 1.010 1.002-1.030 [facility] Urine urobilinogen measureme ntOrdered By: Collin Geni on 09-04-2024 Urobilinogen Ql (U) Normal mg/dl Normal [facility] Urobilinogen Ql (U)Ordered B y: Collin Arechiga on 09-04-2024 Urine Urobilinogen Normal mg/dl Normal [facility] White blood cell (WBC) count Ordered By: Collin Arechiga on 09-04-2024 WBC (Bld) [#/Vol] 5.4 10*3/uL 4.4-11.0 [facility] White blood cell countOrdere d By: Collin Raquelsabina on 09-04-2024 Urine WBC 0-5 SEEN /hpf 0-5 [facility] White blood cell count 0-5 SEEN /hpf 0-5 [facility] Bacteria Ur Culton Bacteria identified Cx Nom (U) ORGANISM ID: 1 >=100,000 CFU/ml Normal urogenital cintia Normal [facility] Comment on above: Performed By: #### 6 30-4 ####[facility] [id number] [address] [place] CNOVon 09-03-2024 CNOV Office Visit (UCWSTR ) -------- AISSATOU BETTS ([id number]) 1990 F Date Time Provider Department 09/03/24 10:45 AM KYLEIGH MATIAS During your visit today, we recorded the following information about you: Temperature Pulse Respiration Blood pressure 97 degrees 90/minute 16/minute 90/62 Weight 56.6 kg Kyleigh Matias APRN.AIR TRANSPORTATION PROVIDER 09/03/2024 10:35 AM Signed Urinary Problem-When to Seek Help? Symptoms of [...] a specialist, such as a urologist. Diagnosis AND Treatment: Lab testing may include: urinalysis, and urine culture that can be collected in the lab or walk-in clinic. Most bladder infections can easily be treated. A physician, nurse practitioner or physician client account assistant may treat with a short course [...] in healthy young women if symptoms resolve. Kyleigh Matias APRN.AIR TRANSPORTATION PROVIDER 09/03/2024 10:50 AM Signed [facility] NOTE Subjective Aissatou Betts is a 33 year old year old who presents to [facility] care today with C/o Frequency, urgency, burning with urination. Presence of blood in urine none. Color is yellow in appearance without odor. Denies suprapubic pain, flank pain or back pain. History of UTI's over the past year too many to count, history of one Kidney (Right) and chronic history of repeated bladder infections. States she just left rehab and has not seen her PCP or Urology/Renal recently. Denies headaches, fever, sore throat, cough, shortness of breath, chest pains, Nausea, vomiting, changes in bowel or skin rashes. No current medication treatments. Aside from symptoms as described above, patient has no other complaints at this time. HPI: see above Review of Systems Constitutional: Negative for chills, fatigue and fever. Respiratory: Negative for cough, shortness of breath and wheezing. Cardiovascular: Negative for chest pain, palpitations and leg swelling. Gastrointestinal: Negative for diarrhea, nausea and vomiting. Genitourinary: Positive for dysuria, frequency and urgency. Negative for hematuria and vaginal discharge. History of one kidney Musculoskeletal: Negative for myalgias. Skin: Negative for wound. ALLERGIES Allergen Reactions Atorvastatin Unknown Cats Shortness of Breath Droperidol Anaphylaxis Laxative Pill GI Upset Meperidine Unknown Sennosides Other: See Comments Current Outpatient Medications on File Prior to Visit Medication Sig buprenorphine-naloxone (SUBOXONE) 2-0.5 mg film once daily. OTC PRODUCT Vitamin D drops levothyroxine (SYNTHROID) 50 mcg tablet Take 1 tablet by mouth daily at 6 am. valACYclovir (VALTREX) 500 mg tablet Take 1 tablet by mouth once daily. SUMAtriptan (IMITREX) 100 mg tablet Take 1 tablet (100 mg) by mouth as needed for migraine headache (see administration instructions) (do not use on more than 2 dyas per week.). May repeat dose after 2 hours if needed. Maximum daily dose is 200 mg per day. No more than 9 doses in a month. ADVAIR DISKUS 500-50 mcg/dose dsdv Inhale 1 Puff as instructed two times a day. RINSE AND GARGLE MOUTH WITH WATER AFTER EACH USE. montelukast (SINGULAIR) 10 mg tablet Take 1 tablet by mouth daily at bedtime. ondansetron orally disintegrating (ZOFRAN ODT) 4 mg disintegrating tablet Take 1 tablet by mouth every 8 hours as needed for nausea/vomiting. gabapentin (NEURONTIN) 100 mg capsule Take 1 capsule by mouth three times a day for 12 doses. Do not start before September 16, 2023. zinc sulfate 220 mg (50 mg zinc) capsule Take 1 capsule by mouth once daily for 21 days. etonogestrel (NEXPLANON) subdermal implant 68 mg 1 Each by SUBDERMAL route as directed. VITAMIN D-3 50 mcg (2,000 unit) cap Take 1 capsule by mouth once (more content not included)... Normal [facility] UA DIP, URINE (POC)on 2024 BILIRUBIN UA (POCT) Negative Negative [facility] CLARITY UA (POCT) Clear [place] COLOR UA (POCT) Yellow [facility] GLUCOSE UA (POCT) 100 mg/dL Abnormal Negative [place] Hemoglobin Ql (U) Trace-intact Abnormal Negative [facility] Interpretation and review of laboratory results Abnormal [facility] KETONE UA (POCT) Negative Negative mg/dL [facility] LEUKOCYTES UA (POCT) Negative [facility]) Negative Negative [place] PH UA (POCT) 6.5 4.5 - 8.0 [facility] Protein Ql (U) >=300 Abnormal Negative mg/dL [facility] SPECIFIC GRAVITY UA (POCT) 1.02 1.005 - 1.030 [facility] UROBILINOGEN UA (POCT) 0.2 Siria l E.U./dL [facility] Location:[address], [place], [place], [address] [place] [address] POINT OF CARE [facility] CNOVon 08-14-2024 CNOV Office Visit (OBGYWM ) -------- AISSATOU BETTS ([id number]) 1990 F Date Time Provider Department 08/14/24 11:30 AM DELMY NATION During your visit today, we recorded the following information about you: Blood pressure Weight 100/60 59 kg Delmy Nation APRN.AIR TRANSPORTATION PROVIDER 08/14/2024 11:45 AM Signed Adventure Therapist offered: Patient declines. Aissatou Betts is a 33 year old female who presents for problem visit for a bump for 1 month(s). HPI: Aissatou presents for a lump on the right buttocks. It has been present intermittently for about 1 month. States she popped it this morning in the shower and it drained. 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 Reports sitting was intolerable. History of Hodgkin's Lymphoma. Stage 4 kidney disease: GFR 35 on 02/15/24. 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 History Comments: Sexual Activity: Yes; Male Contraception: [...] HISTORY Procedure Laterality Date SECTION HX 02/24/2016 COLONOSCOPY SCREENING 2022 HERPES 1 AND 2, IGB+ 2011 NEXPLANON [...] Aunt Social History Tobacco Use Smoking status: Every Day Current packs/day: 0.50 Average packs/day: 0.5 packs/day for 0.7 years (0.4 ttl pk-yrs) Types: Cigarettes Smokeless tobacco: Never Vaping Use Vaping status: current everyday user Substances: Nicotine, Flavoring Substance Use Topics Alcohol use: Not Currently Alcohol/week: 1.0 standard drink of alcohol Types: 1 Cans of beer per week Drug use: Not Currently Types: Marijuana Comment: does use CBD gummies, used heroin, crack, marijuana, meth in past. Last used heroin and crack November 12, 2021 Current Outpatient Medications Medication Sig prazosin (MINIPRESS) 2 mg cap 2 mg. prazosin (MINIPRESS) 1 mg cap Take 1 mg by mouth at bedtime as needed. buprenorphine-naloxone (SUBOXONE) 2-0.5 mg film once daily. OTC PRODUCT Vitamin D drops levothyroxine (SYNTHROID) 50 mcg tablet Take 1 tablet by mouth daily at 6 am. valACYclovir (VALTREX) 500 mg tablet Take 1 tablet by mouth once daily. SUMAtriptan (IMITREX) 100 mg tablet Take 1 tablet (100 mg) by mouth as needed for migraine headache (see administration instructions) (do not use on more than 2 dyas per week.). May repeat dose after 2 hours if needed. Maximum daily dose is 200 mg per day. No more than 9 doses in a month. ADVAIR DISKUS 500-50 mcg/dose dsdv Inhale 1 Puff as instructed two times a day. RINSE AND GARGLE MOUTH WITH WATER AFTER EACH USE. montelukast (SINGULAIR) 10 mg tablet Take 1 tablet by mouth daily at bedtime. ondansetron orally disintegrating (ZOFRAN ODT) 4 mg disintegrating tablet Take 1 tablet by mouth every 8 hours as needed for nausea/vomiting. gabapentin (NEURONTIN) 100 mg capsule Take 1 capsule by mouth three times a day for 12 doses. Do not start before September 16, 2023. zinc sulfate 220 mg (50 mg zinc) capsule Take 1 capsule by mouth once daily for 21 days. etonogestrel (NEXPLANON) subdermal implant 68 mg 1 Each by SUBDERMAL route as directed. VITAMIN D-3 50 mcg (2,000 unit) cap Take 1 capsule by mouth once daily. VITAMIN B-12 500 mcg tab tab(s) Take 1 tablet by mouth once daily. cephALEXin (KEFLEX) 500 mg capsule Take 1 capsule by mouth two times a day for 7 days. risperiDONE (RISPERDAL) 0.5 mg tablet Take 1 mg by mouth once daily. (Patient not taking: Reported on 08/14/2024) hydrOXYzine HCl (ATARAX) 50 mg tablet 1 tablet Orally Four times a day (Patient not taking: Reported on 08/14/2024) No current facility-administered medications for this visit. Allergies As of Date: 08/14/2024 Allergen Noted Reaction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 Bones and soft tissues: Unremarkable. Other: Surgical clips project in the region of the left neck. IMPRESSION: No acute radiographic abnormality. Foreign Exchange Position Clerk: COLBY Transcribe Date/Time: Apr 23 2024 6:14P Dictated by : EMILY MINAYA MD This examination was interpreted and the report reviewed and electronically signed by: EMILY MINAYA MD on Apr 23 2024 6:15PM EST [id number] Normal [facility] XR Chest PA and Lateralon IMPRESSION: No acute radiographic abnormality. Foreign Exchange Position Clerk: DANIEL Transcribe Date/Time: Apr 23 2024 6:14P Dictated by : EMILY MINAYA MD This examination was interpreted and the report reviewed and electronically signed by: EMILY MINAYA MD on Apr 23 2024 6:15PM EST DIVISION OF RADIOLOGY * * *Final Report* * * DATE OF EXAM: Apr 23 2024 5:47PM WOX [id number] - XR CHEST 2V FRONTAL/LAT / PROCEDURE REASON: Wheezing * * * * Physician Interpretation * * * * EXAMINATION: CHEST RADIOGRAPH (2 VIEW FRONTAL & LATERAL) CLINICAL HISTORY: Wheezing MQ: XC2_6 EXAM DATE/TIME: 04/23/2024 5:47 PM COMPARISON: 10/29/2023 RESULT: Lines, tubes, and devices: None. Lungs and pleura: No consolidation. No lung mass. No pleural effusion. No pneumothorax. Cardiomediastinal silhouette: Normal cardiomediastinal silhouette. Bones and soft tissues: Unremarkable. Other: Surgical clips project in the region of the left neck. DIVISION OF RADIOLOGY Provider, [facility] - 04/23/2024 * * *Final Report* * * DATE OF EXAM: Apr 23 2024 5:47PM WOX 5291 - XR CHEST 2V FRONTAL/LAT / PROCEDURE REASON: Wheezing * * * * Physician Interpretation * * * * EXAMINATION: CHEST RADIOGRAPH (2 VIEW FRONTAL & LATERAL) CLINICAL HISTORY: Wheezing MQ: XC2_6 EXAM DATE/TIME: 04/23/2024 5:47 PM COMPARISON: 10/29/2023 RESULT: Lines, tubes, and devices: None. Lungs and pleura: No consolidation. No lung mass. No pleural effusion. No pneumothorax. Cardiomediastinal silhouette: Normal cardiomediastinal silhouette. Bones and soft tissues: Unremarkable. Other: Surgical clips project in the region of the left neck. IMPRESSION IMPRESSION: No acute radiographic abnormality. Foreign Exchange Position Clerk: PSCB Transcribe Date/Time: Apr 23 2024 6:14P Dictated by : EMILY MINAYA MD This examination was interpreted and the report reviewed and electronically signed by: EMILY MINAYA MD on Apr 23 2024 6:15PM EST [facility] Radiology Study observation (narrative) Cherelle Ruiz XR Chest PA and LateralOrder ed By: [facility] Provider on 04-23-2024 [facility] MR UROGRAMon 03-20-2024 MR UROGRAM Interpreted By: Gabino Banda, STUDY: MR UROGRAM; 03/20/2024 1:13 pm INDICATION: Signs/Symptoms:Hydroneph rosis ,R93.5 Abnormal findings on diagnostic imaging of other abdominal regions, including retroperitoneum COMPARISON: February 08, 2024 and February 15, 2024 CT examinations, February 09, 2024 abdominal ultrasound and January 26, 2024 hepatobiliary scan ACCESSION NUMBER(S): [id number] ORDERING CLINICIAN: BENITO PERLA TECHNIQUE: MR UROGRAM: Multiplanar magnetic resonance images of the abdomen were obtained including the following sequences: T2-weighted SSFSE, T1-weighted GRE in/opposed phase, DWI, fat saturated 3D-T1w GRE pre and post contrast. MR angiography was performed including high resolution 3D-T1w FLASH sequences in arterial, venous and urographic phases following intravenous administration of 10 mg Lasix IV. 11 ML of Dotarem was administered intravenously without immediate complication. FINDINGS: KIDNEYS AND URETERS: The right kidney is absent. The left kidney is dysmorphic with areas of cortical thinning measuring 11 cm length image 3/19. There is similar dilation of the left ureter and left intrarenal collecting system. The there is a nonenhancing T2 hyperintense nodule midportion left kidney measuring 13 x 8 mm image 47/49 compatible with a probably benign simple cysts. The ureter and collecting system are no obstructing mass or cyst. The dilated. There is a stricture/a filling defect. BLADDER: Within normal limits. REPRODUCTIVE ORGANS: Uterine anomaly with 2 separate uterine horns as noted on series 5, image 23 and suggestion of central cervix image 3/17 although limited assessment related to uterine orientation. The pattern favors bicornuate unicollis anomaly. No suspicious adnexal mass. There are multiple small follicles bilateral right-sided noted on image 5/17 and left side image 5/20. LIVER: Within normal limits. BILE DUCTS: No intrahepatic or extrahepatic bile duct dilatation is demonstrated. GALLBLADDER: Within normal limits. PANCREAS: Normal signal intensity. Normal enhancement. No masses. The pancreatic duct is normal. SPLEEN: Within normal limits. ADRENAL GLANDS: Within normal limits. LYMPH NODES: No adenopathy ABDOMINAL VESSELS: Aorta and the major abdominal arterial vessels demonstrate no gross abnormality. Superior mesenteric vein, splenic vein, and main, right and left portal vein are patent. Hepatic veins are patent. No significant collaterals or esophageal varices are present. BOWEL: Nondilated without wall thickening. PERITONEUM/RETROPERITONE UM/LYMPH NODES: No ascites. BONES AND LOWER THORAX: No suspicious osseous lesion. The visualized lower lung arauz are unremarkable. The heart is normal in size. Multifocal areas of rounded enhancement ventral body wall subcutaneous layer appears similar favoring injection granulomas. IMPRESSION: 1. Chronic appearing dilation of the left ureter and intrarenal collecting system without evident obstructing mass. 2. Chronic appearing dysmorphic left kidney with probably benign Bosniak type 1 cysts. 3. 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 Ventral body wall enhancing foci favoring injection granulomas. MACRO: None Signed by: Gabino Banda 03/20/2024 4:51 PM Dictation workstation: [id number] [facility] CT ABDOMEN PELVIS W AND WO I V CONTRASTon 02-16-2024 CT ABDOMEN PELVIS W AND WO IV CONTRAST Interpreted By: Sammy Horta, and Radiology Admin ADDENDUM: This radiology study is being re-signed due to an administrative error but not reinterpreted. The new signature merely reflects the date upon which the administrative error was corrected for placement in patient chart. The actual interpretation took place in a timely fashion, consistent with policy, by the physician referenced as interpreting the study. STUDY: CT ABDOMEN PELVIS W AND WO IV CONTRAST Signed by: Sammy Horta 02/19/2024 10:08 AM -------- ORIGINAL REPORT -------- Dictation workstation: [id number] Interpreted By: Sammy Horta, STUDY: CT ABDOMEN PELVIS WO IV CONTRAST; 02/15/2024 4:46 pm INDICATION: Signs/Symptoms:R UPPER ABD WALL MASS, ?? SPIGELLIAN HERNIA. COMPARISON: None. ACCESSION NUMBER(S): [id number] ORDERING CLINICIAN: GOLDIE SWEET TECHNIQUE: CT of the abdomen and pelvis was performed. Contiguous axial images were obtained at 3 mm slice thickness through the abdomen and pelvis. Coronal and sagittal reconstructions at 3 mm slice thickness were performed. No intravenous contrast was administered. FINDINGS: Please note that the evaluation of vessels, lymph nodes and organs is limited without intravenous contrast. LOWER CHEST: Mild bibasilar atelectatic change. ABDOMEN: LIVER: Unchanged BILE DUCTS: No significant biliary dilatation. GALLBLADDER: No calcified gallstone is seen. PANCREAS: Unchanged SPLEEN: Unchanged ADRENAL GLANDS: Unchanged. KIDNEYS AND URETERS: Increasing left-sided hydroureteronephrosis with moderate left-sided hydronephrosis now noted and the distal ureter not dilated up to 1.4 cm. No obvious obstructing urolithiasis. Similar appearing left-sided renal cysts. Similar appearing soft tissue density along the right pelvic wall as described on previous report. PELVIS: BLADDER: Grossly unremarkable. There is a region of yfjm-zn-tqaipmwo loculated lower pelvic ascites adjacent to the left bladder base and within the cul-de-sac. REPRODUCTIVE ORGANS: No pelvic mass is seen. BOWEL: Gas within the appendiceal lumen without evidence of inflammation. No pathologic distention of large or small bowel. VESSELS: No evidence of aortic aneurysm. PERITONEUM/RETROPERITONE UM/LYMPH NODES: Dbjq-xb-vljmcvtn lower pelvic ascites. No enlarged mesenteric lymph nodes. ABDOMINAL WALL: Multiple rounded regions of infiltration of the anterior abdominal compatible with likely medication injection sites. BONES: No acute osseous abnormality. Osseous structures appear stable. IMPRESSION: 1. Interval increasing left-sided hydronephrosis which is now moderate as described. 2. Hjpc-mo-aysbdqgd lower pelvic free fluid which insinuates adjacent to the left bladder base. Signed by: Sammy Horta 02/15/2024 5:08 PM Dictation workstation: [id number] Normal [facility] Bacteria identifiedon 2023 Bacteria identified Cx Nom (Unsp spec) Test: Tissue/Wound Culture/Smear Specimen Source: Skin/Superficial Abscess Specimen Type: Tissue/Biopsy Specimen Date: 02/15/20241821 Result Date: 02/18/2024 0934 Result Status: Final result Resulting Lab: [facility] [id number] [place] [address] CULTURE No growth aerobically and anaerobically STAIN (1+) Rare Polymorphonuclear leukocytes No organisms seen Normal [facility] Comment on above: Performed By: #### 2 524-7 #### GOULD DAYNA ([id number]) [facility] ([facility]) [address] [place] [address] 18034 Basic metabolic 2000 panelon 02-15-2024 Anion gap [Moles/Vol] 13 mmol/L Normal 10-20 [facility] Comment on above: Performed By: #### 8 0384-1 #### LUIS FERNANDO MCINTOSH ([id number]) [facility] ([facility]) [facility] [place] [address] Calcium [Mass/Vol] 9.7 mg/dL Normal 8.6-10.3 [place] Comment on above: Performed By: #### 8 0384-1 #### LUIS FERNANDO MCINTOSH ([id number]) [facility] ([facility]) [address] [place] [address] 73269 Chloride [Moles/Vol] 110 mmol/L High 98-107 [facility] Comment on above: Performed By: #### 8 0384-1 #### LUIS FERNANDO MCINTOSH ([id number]) [facility] ([facility]) [address] [place] [address] 86196 CO2 [Moles/Vol] 22 mmol/L Normal 21-32 [facility] Comment on above: Performed By: #### 8 0384-1 #### LUIS FERNANDO MCINTOSH ([id number]) [facility] ([facility]) [address] [place] [address] 19119 Creatinine [Mass/Vol] 1.92 mg/dL High 0.50-1.05 [facility] Comment on above: Performed By: #### 8 0384-1 #### LUIS FERNANDO MCINTOSH ([id number]) [facility] ([facility]) [address] [place] [address] 10202 Glomerular filtration rate/1.73 sq M.predicted 35 mL/min/1.73m*2 Low >60 [facility] Comment on above: Result Comment: Calc ulations of estimated GFR are performed using the 2020 CKD-EPI Study Refit equation without the race variable for the IDMS-Traceable creatinine methods. https://jasn.asnjournals.org/content/early/ASN.2020 364549 Performed By: #### 8 0384-1 #### LUIS FERNANDO MCINTOSH ([id number]) [facility] ([facility]) [address] [place] [address] 35078 Glucose [Mass/Vol] 92 mg/dL Normal 74-99 [place] Comment on above: Performed By: #### 8 0384-1 #### LUIS FERNANDO MCINTOSH ([id number]) [facility] ([facility]) [address] [place] [address] 33066 Potassium [Moles/Vol] 3.8 mmol/L Normal 3.5-5.3 [facility] Comment on above: Performed By: #### 8 0384-1 #### LUIS FERNANDO MCINTOSH ([id number]) [facility] ([facility]) [address] [place] [address] 09542 Sodium [Moles/Vol] 141 mmol/L Normal 136-145 [place] Comment on above: Performed By: #### 8 0384-1 #### LUIS FERNANDO MCINTOSH ([id number]) [facility] ([facility]) [address] [place] [address] 39115 Urea nitrogen [Mass/Vol] 22 mg/dL Normal 6-23 [facility] Comment on above: Performed By: #### 8 0384-1 #### LUIS FERNANDO MCINTOSH ([id number]) [facility] ([facility]) [address] [place] [address] 70626 CBC W Auto Differential pane l (Bld)on 02-15-2024 Basophils (Bld) [#/Vol] 0.03 x10*3/uL Normal 0.00-0.10 [facility] Comment on above: Performed By: #### 8 0384-1 #### LUIS FERNANDO MCINTOSH ([id number]) [facility] ([facility]) [address] [place] [address] 22158 Basophils/100 WBC (Bld) 0.4 % Normal 0.0-2.0 [facility] Comment on above: Performed By: #### 8 0384-1 #### LUIS FERNANDO MCINTOSH ([id number]) [facility] ([facility]) [address] [place] [address] 43715 Eosinophils (Bld) [#/Vol] 0.05 x10*3/uL Normal 0.00-0.70 [facility] Comment on above: Performed By: #### 8 0384-1 #### LUIS FERNANDO MCINTOSH ([id number]) [facility] ([facility]) [address] [place] [address] 03284 Eosinophils/100 WBC (Bld) 0.7 % Normal 0.0-6.0 [facility] Comment on above: Performed By: #### 8 0384-1 #### LUIS FERNANDO MCINTOSH ([id number]) [facility] ([facility]) [address] [place] [address] 00377 Erythrocyte distribution width (RBC) [Ratio] 13.2 % Normal 11.5-14.5 [facility] Comment on above: Performed By: #### 8 0384-1 #### LUIS FERNANDO MCINTOSH ([id number]) [facility] ([facility]) [address] [place] [address] Hematocrit (Bld) [Volume fraction] 36.5 % Normal 36.0-46.0 [facility] Comment on above: Performed By: #### 8 0384-1 #### LUIS FERNANDO MCINTOSH ([id number]) [facility] ([facility]) [address] [place] [address] 65941 Hemoglobin (Bld) [Mass/Vol] 11.6 g/dL Low 12.0-16.0 [facility] Comment on above: Performed By: #### 8 0384-1 #### LUIS FERNANDO MCINTOSH ([id number]) [facility] ([facility]) [address] [place] [address] 23845 Immature granulocytes (Bld) [#/Vol] 0.02 x10*3/uL Normal 0.00-0.70 [facility] Comment on above: Performed By: #### 8 0384-1 #### LUIS FERNANDO MCINTOSH ([id number]) [facility] ([facility]) [address] [place] [address] 99517 Immature granulocytes/100 WBC (Bld) 0.3 % Normal 0.0-0.9 [facility] Comment on above: Result Comment: Marichuy ture Granulocyte Count (IG) includes promyelocytes, myelocytes and metamyelocytes but does not include bands. Percent differential counts (%) should be interpreted in the context of the absolute cell counts (cells/UL). Performed By: #### 8 0384-1 #### LUIS FERNANDO MCINTOSH ([id number]) [facility] ([facility]) [address] [place] [address] Lymphocytes (Bld) [#/Vol] 1.92 x10*3/uL Normal 1.20-4.80 [facility] Comment on above: Performed By: #### 8 0384-1 #### LUIS FERNANDO MCINTOSH ([id number]) [facility] ([facility]) [address] [place] [address] 87026 Lymphocytes/100 WBC (Bld) 26.9 % Normal 13.0-44.0 [facility] Comment on above: Performed By: #### 8 0384-1 #### LUIS FERNANDO MCINTOSH ([id number]) [facility] ([facility]) [address] [place] [address] 19385 MCH (RBC) [Entitic mass] 28.9 pg Normal 26.0-34.0 [facility] Comment on above: Performed By: #### 8 0384-1 #### LUIS FERNANDO MCINTOSH ([id number]) [facility] ([facility]) [address] [place] [address] 71242 MCHC (RBC) [Mass/Vol] 31.8 g/dL Low 32.0-36.0 [facility] Comment on above: Performed By: #### 8 0384-1 #### LUIS FERNANDO MCINTOSH ([id number]) [facility] ([facility]) [address] [place] [address] 96735 MCV (RBC) [Entitic vol] 91 fL Normal 80-100 [facility] Comment on above: Performed By: #### 8 0384-1 #### LUIS FERNANDO MCINTOSH ([id number]) [facility] ([facility]) [address] [place] [address] 42259 Monocytes (Bld) [#/Vol] 0.38 x10*3/uL Normal 0.10-1.00 [facility] Comment on above: Performed By: #### 8 0384-1 #### LUIS FERNANDO MCINTOSH ([id number]) [facility] ([facility]) [facility] [place] [address] Monocytes/100 WBC (Bld) 5.3 % Normal 2.0-10.0 [facility] Comment on above: Performed By: #### 8 0384-1 #### LUIS FERNANDO MCINTOSH ([id number]) [facility] ([facility]) [address] [place] [address] 34859 Neutrophils (Bld) [#/Vol] 4.75 x10*3/uL Normal 1.20-7.70 [facility] Comment on above: Result Comment: Perc ent differential counts (%) should be interpreted in the context of the absolute cell counts (cells/uL). Performed By: #### 8 0384-1 #### LUIS FERNANDO MCINTOSH ([id number]) [facility] ([facility]) [address] [place] [address] 93196 Neutrophils/100 WBC (Bld) 66.4 % Normal 40.0-80.0 [facility] Comment on above: Performed By: #### 8 0384-1 #### LUIS FERNANDO MCINTOSH ([id number]) [facility] ([facility]) [address] [place] [address] 99504 Nucleated RBC/100 WBC (Bld) [Ratio] 0.0 /100 WBCs Normal 0.0-0.0 [facility] Comment on above: Performed By: #### 8 0384-1 #### LUIS FERNANDO MCINTOSH ([id number]) [facility] ([facility]) [address] [place] [address] 29696 Platelets (Bld) [#/Vol] 172 x10*3/uL Normal 150-450 [facility] Comment on above: Performed By: #### 8 0384-1 #### LUIS FERNANDO MCINTOSH ([id number]) [facility] ([facility]) [address] [place] [address] 17545 RBC (Bld) [#/Vol] 4.01 x10*6/uL Normal 4.00-5.20 [facility] Comment on above: Performed By: #### 8 0384-1 #### LUIS FERNANDO DAYNA ([id number]) [facility] ([facility]) [address] [place] [address] WBC (Bld) [#/Vol] 7.2 x10*3/uL Normal 4.4-11.3 [facility] Comment on above: Performed By: #### 8 0384-1 #### LUIS FERNANDO DAYNA ([id number]) [facility] ([facility]) [facility] [place] [address] CT ABDOMEN PELVIS WO IV CONT RASTon 02-15-2024 CT ABDOMEN PELVIS WO IV CONTRAST Interpreted By: Sammy Horta, STUDY: CT ABDOMEN PELVIS WO IV CONTRAST; 02/15/2024 4:46 pm INDICATION: Signs/Symptoms:R UPPER ABD WALL MASS, ?? SPIGELLIAN HERNIA. COMPARISON: None. ACCESSION NUMBER(S): [id number] ORDERING CLINICIAN: GOLDIE SWEET TECHNIQUE: CT of the abdomen and pelvis was performed. Contiguous axial images were obtained at 3 mm slice thickness through the abdomen and pelvis. Coronal and sagittal reconstructions at 3 mm slice thickness were performed. No intravenous contrast was administered. FINDINGS: Please note that the evaluation of vessels, lymph nodes and organs is limited without intravenous contrast. LOWER CHEST: Mild bibasilar atelectatic change. ABDOMEN: LIVER: Unchanged BILE DUCTS: No significant biliary dilatation. GALLBLADDER: No calcified gallstone is seen. PANCREAS: Unchanged SPLEEN: Unchanged ADRENAL GLANDS: Unchanged. KIDNEYS AND URETERS: Increasing left-sided hydroureteronephrosis with moderate left-sided hydronephrosis now noted and the distal ureter not dilated up to 1.4 cm. No obvious obstructing urolithiasis. Similar appearing left-sided renal cysts. Similar appearing soft tissue density along the right pelvic wall as described on previous report. PELVIS: BLADDER: Grossly unremarkable. There is a region of qfhf-mb-lsfhnxus loculated lower pelvic ascites adjacent to the left bladder base and within the cul-de-sac. REPRODUCTIVE ORGANS: No pelvic mass is seen. BOWEL: Gas within the appendiceal lumen without evidence of inflammation. No pathologic distention of large or small bowel. VESSELS: No evidence of aortic aneurysm. PERITONEUM/RETROPERITONE UM/LYMPH NODES: Fdii-ns-owoabirh lower pelvic ascites. No enlarged mesenteric lymph nodes. ABDOMINAL WALL: Multiple rounded regions of infiltration of the anterior abdominal compatible with likely medication injection sites. BONES: No acute osseous abnormality. Osseous structures appear stable. IMPRESSION: 1. Interval increasing left-sided hydronephrosis which is now moderate as described. 2. Voup-ir-vrgrnajf lower pelvic free fluid which insinuates adjacent to the left bladder base. Signed by: Sammy Horta 02/15/2024 5:08 PM Dictation workstation: [id number] Normal [facility] DRUG SCREEN,URINEon 02-15-20 24 Amphetamines Screen Ql (U) Negative Normal Presumptive Negative [facility] Comment on above: Order Comment: Drug screen results are presumptive and should not be used to assesscompliance with prescribed medication. Contact the performing [facility] laboratoryto add-on definitive confirmatory testing if clinically indicated.Toxicology screening results are reported qualitatively. The concentration must???be greater than or equal to the cutoff to be reported as positive. The concentrationat which the screening test can detect an individual drug or metabolite varies.The absence of expected drug(s) and/or drug metabolite(s) may indicate non-compliance,inappropriate timing of specimen collection relative to drug administration, poor drugabsorption, diluted/adulterated urine, or limitations of testing. For medical purposesonly; not valid for forensic use.Interpretive questions should be directed to the laboratory medical directors. Result Comment: CUTO FF LEVEL: 500 NG/ML Cross-reactivity has been reported with high concentrations of the following drugs: buproprion, chloroquine, chlorpromazine, ephedrine, mephentermine, fenfluramine, phentermine, phenylpropanolamine, pseudoephedrine, and propranolol. Performed By: #### 8 0384-1 #### GOULD DAYNA ([id number]) [facility] ([facility]) [address] [place] [address] Barbiturates Screen Ql (U) Negative Normal Presumptive Negative [facility] Comment on above: Order Comment: Drug screen results are presumptive and should not be used to assesscompliance with prescribed medication. Contact the performing [facility] laboratoryto add-on definitive confirmatory testing if clinically indicated.Toxicology screening results are reported qualitatively. The concentration must???be greater than or equal to the cutoff to be reported as positive. The concentrationat which the screening test can detect an individual drug or metabolite varies.The absence of expected drug(s) and/or drug metabolite(s) may indicate non-compliance,inappropriate timing of specimen collection relative to drug administration, poor drugabsorption, diluted/adulterated urine, or limitations of testing. For medical purposesonly; not valid for forensic use.Interpretive questions should be directed to the laboratory medical directors. Result Comment: CUTO FF LEVEL: 200 NG/ML Performed By: #### 8 0384-1 #### LUIS FERNANDO MCINTOSH ([id number]) [facility] ([facility]) [facility] [place] [address] Benzodiazepines Ql (U) Negative Normal Presu mptive Negative [facility] Comment on above: Order Comment: Drug screen results are presumptive and should not be used to assesscompliance with prescribed medication. Contact the performing [facility] laboratoryto add-on definitive confirmatory testing if clinically indicated.Toxicology screening results are reported qualitatively. The concentration must???be greater than or equal to the cutoff to be reported as positive. The concentrationat which the screening test can detect an individual drug or metabolite varies.The absence of expected drug(s) and/or drug metabolite(s) may indicate non-compliance,inappropriate timing of specimen collection relative to drug administration, poor drugabsorption, diluted/adulterated urine, or limitations of testing. For medical purposesonly; not valid for forensic use.Interpretive questions should be directed to the laboratory medical directors. Result Comment: CUTO FF LEVEL: 200 NG/ML Performed By: #### 8 0384-1 #### LUIS FERNANDO MCINTOSH ([id number]) [facility] ([facility]) [address] [place] [address] Benzoylecgonine Screen Ql (U) Negative Normal Presumptive Negative [facility] Comment on above: Order Comment: Drug screen results are presumptive and should not be used to assesscompliance with prescribed medication. Contact the performing [facility] laboratoryto add-on definitive confirmatory testing if clinically indicated.Toxicology screening results are reported qualitatively. The concentration must???be greater than or equal to the cutoff to be reported as positive. The concentrationat which the screening test can detect an individual drug or metabolite varies.The absence of expected drug(s) and/or drug metabolite(s) may indicate non-compliance,inappropriate timing of specimen collection relative to drug administration, poor drugabsorption, diluted/adulterated urine, or limitations of testing. For medical purposesonly; not valid for forensic use.Interpretive questions should be directed to the laboratory medical directors. Result Comment: CUTO FF LEVEL: 150 NG/ML Performed By: #### 8 0384-1 #### LUIS FERNANDO MCINTOSH ([id number]) [facility] ([facility]) [facility] [place] [address] Cannabinoids Screen Ql (U) Positive Abnormal Presumptive Negative [facility] Comment on above: Order Comment: Drug screen results are presumptive and should not be used to assesscompliance with prescribed medication. Contact the performing [facility] laboratoryto add-on definitive confirmatory testing if clinically indicated.Toxicology screening results are reported qualitatively. The concentration must???be greater than or equal to the cutoff to be reported as positive. The concentrationat which the screening test can detect an individual drug or metabolite varies.The absence of expected drug(s) and/or drug metabolite(s) may indicate non-compliance,inappropriate timing of specimen collection relative to drug administration, poor drugabsorption, diluted/adulterated urine, or limitations of testing. For medical purposesonly; not valid for forensic use.Interpretive questions should be directed to the laboratory medical directors. Result Comment: CUTO FF LEVEL: 50 NG/ML Performed By: #### 8 0384-1 #### LUIS FERNANDO MCINTOSH ([id number]) [facility] ([facility]) [facility] [place] [address] fentaNYL+Norfentanyl Screen Ql (U) Negative Normal Presumptive Negative [facility] Comment on above: Order Comment: Drug screen results are presumptive and should not be used to assesscompliance with prescribed medication. Contact the performing [facility] laboratoryto add-on definitive confirmatory testing if clinically indicated.Toxicology screening results are reported qualitatively. The concentration must???be greater than or equal to the cutoff to be reported as positive. The concentrationat which the screening test can detect an individual drug or metabolite varies.The absence of expected drug(s) and/or drug metabolite(s) may indicate non-compliance,inappropriate timing of specimen collection relative to drug administration, poor drugabsorption, diluted/adulterated urine, or limitations of testing. For medical purposesonly; not valid for forensic use.Interpretive questions should be directed to the laboratory medical directors. Result Comment: CUTO FF LEVEL: 5 NG/ML Performed By: #### 8 0384-1 #### LUIS FERNANDO MCINTOSH ([id number]) [facility] ([facility]) [facility] [place] [address] Methadone Screen Ql (U) Negative Normal Pres umptive Negative [facility] Comment on above: Order Comment: Drug screen results are presumptive and should not be used to assesscompliance with prescribed medication. Contact the performing [facility] laboratoryto add-on definitive confirmatory testing if clinically indicated.Toxicology screening results are reported qualitatively. The concentration must???be greater than or equal to the cutoff to be reported as positive. The concentrationat which the screening test can detect an individual drug or metabolite varies.The absence of expected drug(s) and/or drug metabolite(s) may indicate non-compliance,inappropriate timing of specimen collection relative to drug administration, poor drugabsorption, diluted/adulterated urine, or limitations of testing. For medical purposesonly; not valid for forensic use.Interpretive questions should be directed to the laboratory medical directors. Result Comment: CUTO FF LEVEL: 150 NG/ML The metabolite P-gexyt-uligntevcdsdaq (LAAM) is not detected by this method in concentrations that would be found in the urine of patients on LAAM therapy. Performed By: #### 8 0384-1 #### LUIS FERNANDO MCINTOSH ([id number]) [facility] ([facility]) [facility] [place] [address] Opiates Screen Ql (U) Negative Normal Presum ptive Negative [facility] Comment on above: Order Comment: Drug screen results are presumptive and should not be used to assesscompliance with prescribed medication. Contact the performing [facility] laboratoryto add-on definitive confirmatory testing if clinically indicated.Toxicology screening results are reported qualitatively. The concentration must???be greater than or equal to the cutoff to be reported as positive. The concentrationat which the screening test can detect an individual drug or metabolite varies.The absence of expected drug(s) and/or drug metabolite(s) may indicate non-compliance,inappropriate timing of specimen collection relative to drug administration, poor drugabsorption, diluted/adulterated urine, or limitations of testing. For medical purposesonly; not valid for forensic use.Interpretive questions should be directed to the laboratory medical directors. Result Comment: CUTO FF LEVEL: 300 NG/ML The opiate screen does not detect fentanyl, meperidine, or tramadol. Oxycodone is not consistently detected (refer to Oxycodone Screen, Urine result). Performed By: #### 8 0384-1 #### LUIS FERNANDO MCINTOSH ([id number]) [facility] ([facility]) [address] [place] [address] oxyCODONE+oxyMORphone Screen Ql (U) Positive Abnormal Presumptive Negative [facility] Comment on above: Order Comment: Drug screen results are presumptive and should not be used to assesscompliance with prescribed medication. Contact the performing [facility] laboratoryto add-on definitive confirmatory testing if clinically indicated.Toxicology screening results are reported qualitatively. The concentration must???be greater than or equal to the cutoff to be reported as positive. The concentrationat which the screening test can detect an individual drug or metabolite varies.The absence of expected drug(s) and/or drug metabolite(s) may indicate non-compliance,inappropriate timing of specimen collection relative to drug administration, poor drugabsorption, diluted/adulterated urine, or limitations of testing. For medical purposesonly; not valid for forensic use.Interpretive questions should be directed to the laboratory medical directors. Result Comment: CUTO FF LEVEL: 100 NG/ML This test will accurately detect both oxycodone and oxymorphone. Performed By: #### 8 0384-1 #### LUIS FERNANDO MCINTOSH ([id number]) [facility] ([facility]) [address] [place], [place] [address] Phencyclidine Ql (U) Negative Normal Presump tive Negative [facility] Comment on above: Order Comment: Drug screen results are presumptive and should not be used to assesscompliance with prescribed medication. Contact the performing [facility] laboratoryto add-on definitive confirmatory testing if clinically indicated.Toxicology screening results are reported qualitatively. The concentration must???be greater than or equal to the cutoff to be reported as positive. The concentrationat which the screening test can detect an individual drug or metabolite varies.The absence of expected drug(s) and/or drug metabolite(s) may indicate non-compliance,inappropriate timing of specimen collection relative to drug administration, poor drugabsorption, diluted/adulterated urine, or limitations of testing. For medical purposesonly; not valid for forensic use.Interpretive questions should be directed to the laboratory medical directors. Result Comment: CUTO FF LEVEL: 25 NG/ML Cross-reactivity has been reported with dextromethorphan. Performed By: #### 8 0384-1 #### LUIS FERNANDO MCINTOSH ([id number]) [facility] ([facility]) [address] [place] [address] HCG ( test) IA.rapi d Ql (U)on 02-15-2024 HCG ( test) Ql (U) Negative Normal NEGATIVE [facility] Comment on above: Performed By: #### 2 524-7 #### LUIS FERNANDO MCINTOSH ([id number]) [facility] ([facility]) [address] [place] [address] Hepatic function 2000 panelo n 02-15-2024 Albumin BCP dye [Mass/Vol] 4.4 g/dL Normal 3.4-5.0 [facility] Comment on above: Performed By: #### 2 524-7 #### LUIS FERNANDO MCINTOSH ([id number]) [facility] ([facility]) [address] [place] [address] ALP [Catalytic activity/Vol] 54 U/L Normal 33-110 [facility] Comment on above: Performed By: #### 2 524-7 #### LUIS FERNANDO MCINTOSH ([id number]) [facility] ([facility]) [address] [place] [address] ALT With P-5'-P [Catalytic activity/Vol] 9 U/L Normal 7-45 [facility] Comment on above: Result Comment: Tash ents treated with Sulfasalazine may generate falsely decreased results for ALT. Performed By: #### 2 524-7 #### LUIS FERNANDO MCINTOSH ([id number]) [facility] ([facility]) [address] [place] [address] AST With P-5'-P [Catalytic activity/Vol] 15 U/L Normal 9-39 [facility] Comment on above: Performed By: #### 2 524-7 #### LUIS FERNANDO MCINTOSH ([id number]) [facility] ([facility]) [address] [place] [address] Bilirubin [Mass/Vol] 0.4 mg/dL Normal 0.0-1.2 [facility] Comment on above: Performed By: #### 2 524-7 #### LUIS FERNANDO MCINTOSH ([id number]) [facility] ([facility]) [address] [place] [address] Bilirubin.direct [Mass/Vol] 0.1 mg/dL Normal 0.0-0.3 [facility] Comment on above: Performed By: #### 2 524-7 #### LUIS FERNANDO MCINTOSH ([id number]) [facility] ([facility]) [address] [place] [address] 14996 Protein [Mass/Vol] 7.5 g/dL Normal 6.4-8.2 [place] Comment on above: Performed By: #### 2 524-7 #### LUIS FERNANDO MCINTOSH ([id number]) [facility] ([facility]) [address] [place] [address] 72875 Lactateon 02-15-2024 Lactate [Moles/Vol] 0.8 mmol/L Normal 0.4-2.0 [facility] Comment on above: Order Comment: Venip uncture immediately after or during the administration of Metamizole may lead to falsely low results. Testing should be performed immediatelyprior to Metamizole dosing. Performed By: #### 8 0384-1 #### LUIS FERNANDO MCINTOSH ([id number]) [facility] ([facility]) [address] [place] [address] 17722 Triacylglycerol lipaseon Lipase [Catalytic activity/Vol] 60 U/L Normal 9-82 [facility] Comment on above: Order Comment: Venip uncture immediately after or during the administration of Metamizole may lead to falsely low results. Testing should be performed immediately prior to Metamizole dosing. Performed By: #### 2 524-7 #### LUIS FERNANDO MCINTOSH ([id number]) [facility] ([facility]) [address] [place] [address] Urinalysis complete W Reflex Culture panel (U)on 02-15-2024 Appearance (U) Clear Normal Clear [facility] Comment on above: Performed By: #### 8 0384-1 #### LUIS FERNANDO MCINTOSH ([id number]) [facility] ([facility]) [address] [place] [address] Bilirubin (U) [Mass/Vol] Negative Normal NEGATIVE [facility] Comment on above: Performed By: #### 8 0384-1 #### LUIS FERNANDO MCINTOSH ([id number]) [facility] ([facility]) [address] [place] [address] Color (U) Colorless Normal Light-Yellow , Yellow, Dark-Yellow [facility] Comment on above: Performed By: #### 8 0384-1 #### LUIS FERNANDO MCINTOSH ([id number]) [facility] ([facility]) [address] [place] [address] Epithelial cells.squamous Auto (Urine sed) [#/Area] 1-9 (SPARSE) Normal Reference range not established. [facility] Comment on above: Performed By: #### 8 0384-1 #### LUIS FERNANDO MCINTOSH ([id number]) [facility] ([facility]) [address] [place] [address] Glucose Auto test strip (U) [Mass/Vol] Normal Normal Normal [facility] Comment on above: Performed By: #### 8 0384-1 #### LUIS FERNANDO MCINTOSH ([id number]) [facility] ([facility]) [address] [place], [place] [address] Ketones (U) [Mass/Vol] Negative [facility] above: Performed By: #### 8 0384-1 #### LUIS FERNANDO MCINTOSH ([id number]) [facility] ([facility]) [address] [place], [place] [address] Leukocyte esterase Auto test strip Ql (U) Negative Normal NEGATIVE [facility] Comment on above: Performed By: #### 8 0384-1 #### LUIS FERNANDO MCINTOSH ([id number]) [facility] ([facility]) [address] [place] [address] 10149 Nitrite Auto test strip Ql (U) Negative Normal NEGATIVE [facility] Comment on above: Performed By: #### 8 0384-1 #### LUIS FERANNDO MCINTOSH ([id number]) [facility] ([facility]) [address] [place] [address] pH (U) 7.0 [pH] Normal 5.0, 5.5, 6.0, 6.5, 7.0, 7.5, 8.0 [facility] Comment on above: Performed By: #### 8 0384-1 #### LUIS FERNANDO MCINTOSH ([id number]) [facility] ([facility]) [address] [place] [address] Protein (U) [Mass/Vol] 200 (2+) Abnormal NEGAT JUN, 10 (TRACE), 20 (TRACE) [facility] Comment on above: Performed By: #### 8 0384-1 #### LUIS FERNANDO MCINTOSH ([id number]) [facility] ([facility]) [address] [place] [address] 02945 RBC (U) [#/Vol] Negative Normal NEGATIVE [facility] Comment on above: Performed By: #### 8 0384-1 #### LUIS FERNANDO MCINTOSH ([id number]) [facility] ([facility]) [address] [place] [address] 22523 RBC Auto (Urine sed) [#/Area] NONE Normal NONE, 1-2, 3-5 [facility] Comment on above: Performed By: #### 8 0384-1 #### LUIS FERNANDO MCINTOSH ([id number]) [facility] ([facility]) [address] [place] [address] 98935 Specific gravity (U) [Rel density] 1.012 Normal 1.005-1.035 [facility] Comment on above: Performed By: #### 8 0384-1 #### LUIS FERNANDO MCINTOSH ([id number]) [facility] ([facility]) [address] [place] [address] Urobilinogen (U) [Mass/Vol] Normal Normal Normal [facility] Comment on above: Performed By: #### 8 0384-1 #### LUIS FERNANDO MCINTOSH ([id number]) [facility] ([facility]) [address] [place] [address] WBC Auto (Urine sed) [#/Area] 1-5 Normal 1-5, NONE [facility] Comment on above: Performed By: #### 8 0384-1 #### LUIS FERNANDO MCINTOSH ([id number]) [facility] ([facility]) [address] [place] [address] 89289 Basic metabolic 2000 panelon 02-09-2024 Anion gap [Moles/Vol] 9 mmol/L Low 10-20 [facility] Comment on above: Performed By: #### 8 0384-1 #### LUIS FERNANDO MCINTOSH ([id number]) [facility] ([facility]) [address] [place] [address] Calcium [Mass/Vol] 8.6 mg/dL Normal 8.6-10.3 [place] Comment on above: Performed By: #### 8 0384-1 #### LUIS FERNANDO MCINTOSH ([id number]) [facility] ([facility]) [address] [place] [address] Chloride [Moles/Vol] 114 mmol/L High 98-107 [facility] Comment on above: Performed By: #### 8 0384-1 #### LUIS FERNANDO MCINTOSH ([id number]) [facility] ([facility]) [address] [place] [address] CO2 [Moles/Vol] 20 mmol/L Low 21-32 [facility] Comment on above: Performed By: #### 8 0384-1 #### LUIS FERNANDO MCINTOSH ([id number]) [facility] ([facility]) [address] [place] [address] Creatinine [Mass/Vol] 2.03 mg/dL High 0.50-1.05 [facility] Comment on above: Performed By: #### 8 0384-1 #### LUIS FERNANDO MCINTOSH ([id number]) [facility] ([facility]) [address] [place] [address] 56871 Glomerular filtration rate/1.73 sq M.predicted 33 mL/min/1.73m*2 Low >60 [facility] Comment on above: Result Comment: Calc ulations of estimated GFR are performed using the 2020 CKD-EPI Study Refit equation without the race variable for the IDMS-Traceable creatinine methods. https://jasn.asnjournals.org/content/early//ASN.2020 198519 Performed By: #### 8 0384-1 #### LUIS FERNANDO MCINTOSH ([id number]) [facility] ([facility]) [address] [place] [address] 54930 Glucose [Mass/Vol] 88 mg/dL Normal 74-99 [place] Comment on above: Performed By: #### 8 0384-1 #### LUIS FERNANDO MCINTOSH ([id number]) [facility] ([facility]) [address] [place] [address] 50919 Potassium [Moles/Vol] 3.4 mmol/L Low 3.5-5.[address] [facility] Comment on above: Performed By: #### 8 0384-1 #### LUIS FERNANDO MCINTOSH ([id number]) [facility] ([facility]) [address] [place] [address] 37449 Sodium [Moles/Vol] 140 mmol/L Normal 136-145 [place] Comment on above: Performed By: #### 8 0384-1 #### LUIS FERNANDO MCINTOSH ([id number]) [facility] ([facility]) [address] [place] [address] 94881 Urea nitrogen [Mass/Vol] 14 mg/dL Normal 6-23 [facility] Comment on above: Performed By: #### 8 0384-1 #### LUIS FERNANDO MCINTOSH ([id number]) [facility] ([facility]) [address] [place] [address] 95705 CBC panel Auto (Bld)on 02-08 Erythrocyte distribution width (RBC) [Ratio] 13.4 % Normal 11.5-14.5 [facility] Comment on above: Performed By: #### 5 8410-2 #### LUIS FERNANDO MCINTOSH ([id number]) [facility] ([facility]) [address] [place] [address] Hematocrit (Bld) [Volume fraction] 31.0 % Low 36.0-46.0 [facility] Comment on above: Performed By: #### 5 8410-2 #### LUIS FERNANDO MCINTOSH ([id number]) [facility] ([facility]) [address] [place] [address] Hemoglobin (Bld) [Mass/Vol] 10.0 g/dL Low 12.0-16.0 [facility] Comment on above: Performed By: #### 5 8410-2 #### LUIS FERNANDO MCINTOSH ([id number]) [facility] ([facility]) [address] [place], [place] [address] MCH (RBC) [Entitic mass] 28.9 pg Normal 26.0-34.0 [facility] Comment on above: Performed By: #### 5 8410-2 #### LUIS FERNANDO MCINTOSH ([id number]) [facility] ([facility]) [address] [place] [address] 83851 MCHC (RBC) [Mass/Vol] 32.3 g/dL Normal 32.0-36.0 [facility] Comment on above: Performed By: #### 5 8410-2 #### LUIS FERNANDO MCINTOSH ([id number]) [facility] ([facility]) [address] [place] [address] 61596 MCV (RBC) [Entitic vol] 90 fL Normal 80-100 [facility] Comment on above: Performed By: #### 5 8410-2 #### LUIS FERNANDO MCINTOSH ([id number]) [facility] ([facility]) [address] [place] [address] 38051 Nucleated RBC/100 WBC (Bld) [Ratio] 0.0 /100 WBCs Normal 0.0-0.0 [facility] Comment on above: Performed By: #### 5 8410-2 #### LUIS FERNANDO MCINTOSH ([id number]) [facility] ([facility]) [address] [place] [address] Platelets (Bld) [#/Vol] 146 x10*3/uL Low 150-450 [facility] Comment on above: Performed By: #### 5 8410-2 #### LUIS FERNANDO MCINTOSH ([id number]) [facility] ([facility]) [address] [place] [address] RBC (Bld) [#/Vol] 3.46 x10*6/uL Low 4.00-5.20 [facility] Comment on above: Performed By: #### 5 8410-2 #### LUIS FERNANDO MCINTOSH ([id number]) [facility] ([facility]) [address] [place] [address] WBC (Bld) [#/Vol] 4.8 x10*3/uL Normal 4.4-11.3 [facility] Comment on above: Performed By: #### 5 8410-2 #### LUIS FERNANDO MCINTOSH ([id number]) [facility] ([facility]) [address] [place] [address] Amylaseon 02-08-2024 Amylase [Catalytic activity/Vol] 61 U/L Normal 29-103 [facility] Comment on above: Performed By: #### 1 798-8 #### LUIS FERNANDO MCINTOSH ([id number]) [facility] ([facility]) [address] [place] [address] Bacteria identifiedon 2023 Bacteria identified Cx Nom (U) Test: Urine culture Specimen Source: Clean Catch/Voided Specimen Type: Urine Specimen Date: 02/08/2024 1318 Result Date: 02/10/2024806 Result Status: Final result Abnormal: No Resulting Lab: [facility] [address] [place] [id number] CULTURE No significant growth Normal [facility] Comment on above: Performed By: #### 8 0384-1 #### LUIS FERNANDO MCINTOSH ([id number]) [facility] ([facility]) [address] [place] [address] CBC W Auto Differential pane l (Bld)on 02-08-2024 Basophils (Bld) [#/Vol] 0.03 x10*3/uL Normal 0.00-0.10 [facility] Comment on above: Performed By: #### 5 7021-8 #### LUIS FERNANDO MCINTOSH ([id number]) [facility] ([facility]) [address] [place] [address] 28927 Basophils/100 WBC (Bld) 0.5 % Normal 0.0-2.0 [facility] Comment on above: Performed By: #### 5 7021-8 #### LUIS FERNANDO MCINTOSH ([id number]) [facility] ([facility]) [address] [place] [address] Eosinophils (Bld) [#/Vol] 0.04 x10*3/uL Normal 0.00-0.70 [facility] Comment on above: Performed By: #### 5 7021-8 #### LUIS FERNANDO MCINTOSH ([id number]) [facility] ([facility]) [address] [place], [place] [address] Eosinophils/100 WBC (Bld) 0.7 % Normal 0.0-6.0 [facility] Comment on above: Performed By: #### 5 7021-8 #### LUIS FERNANDO MCINTOSH ([id number]) [facility] ([facility]) [address] [place] [address] Erythrocyte distribution width (RBC) [Ratio] 13.3 % Normal 11.5-14.5 [facility] Comment on above: Performed By: #### 5 7021-8 #### LUIS FERNANDO MCINTOSH ([id number]) [facility] ([facility]) [address] [place] [address] Hematocrit (Bld) [Volume fraction] 37.4 % Normal 36.0-46.0 [facility] Comment on above: Performed By: #### 5 7021-8 #### LUIS FERNANDO MCINTOSH ([id number]) [facility] ([facility]) [address] [place] [address] 54660 Hemoglobin (Bld) [Mass/Vol] 12.3 g/dL Normal 12.0-16.0 [facility] Comment on above: Performed By: #### 5 7021-8 #### LUIS FERNANDO MCINTOSH ([id number]) [facility] ([facility]) [address] [place] [address] 04469 Immature granulocytes (Bld) [#/Vol] 0.01 x10*3/uL Normal 0.00-0.70 [facility] Comment on above: Performed By: #### 5 7021-8 #### LUIS FERNANDO MCINTOSH ([id number]) [facility] ([facility]) [address] [place] [address] 41284 Immature granulocytes/100 WBC (Bld) 0.2 % Normal 0.0-0.9 [facility] Comment on above: Result Comment: Marichuy ture Granulocyte Count (IG) includes promyelocytes, myelocytes and metamyelocytes but does not include bands. Percent differential counts (%) should be interpreted in the context of the absolute cell counts (cells/UL). Performed By: #### 5 7021-8 #### LUIS FERNANDO MCINTOSH ([id number]) [facility] ([facility]) [address] [place] [address] 48280 Lymphocytes (Bld) [#/Vol] 1.83 x10*3/uL Normal 1.20-4.80 [facility] Comment on above: Performed By: #### 5 7021-8 #### LUIS FERNANDO MCINTOSH ([id number]) [facility] ([facility]) [address] [place] [address] 74589 Lymphocytes/100 WBC (Bld) 31.6 % Normal 13.0-44.0 [facility] Comment on above: Performed By: #### 5 7021-8 #### LUIS FERNANDO MCINTOSH ([id number]) [facility] ([facility]) [address] [place] [address] 66429 MCH (RBC) [Entitic mass] 29.0 pg Normal 26.0-34.0 [facility] Comment on above: Performed By: #### 5 7021-8 #### LUIS FERNANDO MCINTOSH ([id number]) [facility] ([facility]) [address] [place] [address] 01599 MCHC (RBC) [Mass/Vol] 32.9 g/dL Normal 32.0-36.0 [facility] Comment on above: Performed By: #### 5 7021-8 #### LUIS FERNANDO MCINTOSH ([id number]) [facility] ([facility]) [address] [place] [address] 51671 MCV (RBC) [Entitic vol] 88 fL Normal 80-100 [facility] Comment on above: Performed By: #### 5 7021-8 #### LUIS FERNANDO MCINTOSH ([id number]) [facility] ([facility]) [address] [place] [address] 76386 Monocytes (Bld) [#/Vol] 0.31 x10*3/uL Normal 0.10-1.00 [facility] Comment on above: Performed By: #### 5 7021-8 #### LUIS FERNANDO MCINTOSH ([id number]) [facility] ([facility]) [address] [place] [address] 56324 Monocytes/100 WBC (Bld) 5.4 % Normal 2.0-10.0 [facility] Comment on above: Performed By: #### 5 7021-8 #### LUIS FERNANDO MCINTOSH ([id number]) [facility] ([facility]) [address] [place] [address] 90933 Neutrophils (Bld) [#/Vol] 3.57 x10*3/uL Normal 1.20-7.70 [facility] Comment on above: Result Comment: Perc ent differential counts (%) should be interpreted in the context of the absolute cell counts (cells/uL). Performed By: #### 5 7021-8 #### LUIS FERNANDO MCINTOSH ([id number]) [facility] ([facility]) [address] [place] [address] 32947 Neutrophils/100 WBC (Bld) 61.6 % Normal 40.0-80.0 [facility] Comment on above: Performed By: #### 5 7021-8 #### LUIS FERNANDO MCINTOSH ([id number]) [facility] ([facility]) [address] [place] [address] 65428 Nucleated RBC/100 WBC (Bld) [Ratio] 0.0 /100 WBCs Normal 0.0-0.0 [facility] Comment on above: Performed By: #### 5 7021-8 #### LUIS FERNANDO MCINTOSH ([id number]) [facility] ([facility]) [address] [place] [address] 48982 Platelets (Bld) [#/Vol] 225 x10*3/uL Normal 150-450 [facility] Comment on above: Performed By: #### 5 7021-8 #### LUIS FERNANDO MCINTOSH ([id number]) [facility] ([facility]) [address] [place] [address] 98397 RBC (Bld) [#/Vol] 4.24 x10*6/uL Normal 4.00-5.20 [facility] Comment on above: Performed By: #### 5 7021-8 #### LUIS FERNANDO MCINTOSH ([id number]) [facility] ([facility]) [address] [place] [address] 71305 WBC (Bld) [#/Vol] 5.8 x10*3/uL Normal 4.4-11.3 [facility] Comment on above: Performed By: #### 5 7021-8 #### LUIS FERNANDO MCINTOSH ([id number]) [facility] ([facility]) [address] [place], [place] [address] CT ABDOMEN PELVIS WO IV CONT [facility] 02-08-2024 CT ABDOMEN PELVIS WO IV CONTRAST Interpreted By: Sammy Horta, STUDY: CT ABDOMEN PELVIS WO IV CONTRAST; 02/08/2024 2:16 pm INDICATION: Signs/Symptoms:RUQ/RLQ pain. COMPARISON: None. ACCESSION NUMBER(S): [id number] ORDERING CLINICIAN: ANTHONY FISHMAN TECHNIQUE: CT of the abdomen and pelvis was performed. Contiguous axial images were obtained at 3 mm slice thickness through the abdomen and pelvis. Coronal and sagittal reconstructions at 3 mm slice thickness were performed. No intravenous contrast was administered. FINDINGS: Please note that the evaluation of vessels, lymph nodes and organs is limited without intravenous contrast. LOWER CHEST: No consolidation or effusion. ABDOMEN: LIVER: Unremarkable. BILE DUCTS: No significant biliary dilatation. GALLBLADDER: No calcified gallstone is seen. PANCREAS: Unremarkable. SPLEEN: Unremarkable ADRENAL GLANDS: Unremarkable KIDNEYS AND URETERS: The right kidney appears absent. There is mild proximal left-sided hydroureter. No obstructing calculus is seen. Somewhat lobulated appearance of the left kidney, suboptimally assessed due to lack of contrast on the current exam. PELVIS: BLADDER: Unremarkable. REPRODUCTIVE ORGANS: Amorphous soft tissue density within the right pelvic region (series 2, image 107) appears to represent eccentric positioning of the uterus. A region of nodularity more superior to this with cystic components (series 2, image 98) is nonspecific and may represent a congenital abnormality or congenitally involuted kidney given absence of the right kidney. BOWEL: The imaged portions of the appendix demonstrate no periappendiceal inflammation and contain gas within the lumen. The appendix measures up to 7 mm in caliber which is prominent, however this is favored to be secondary to distension related to gas. Non gaseous distended portions of the appendix measuring up to 5 mm and contain dense material suggestive appendicular lith. There is no evidence of overt inflammation to suggest overt acute appendicitis. No pathologic distention of large or small bowel. VESSELS: No evidence of aortic aneurysm. PERITONEUM/RETROPERITONE UM/LYMPH NODES: No ascites or free air, no fluid collection. No enlarged mesenteric lymph nodes. ABDOMINAL WALL: Multiple rounded subcentimeter foci of infiltration along the anterior abdominal wall likely representing medication injection sites. BONES: No acute osseous abnormality. Multilevel spondylosis throughout the imaged spine. IMPRESSION: 1. Right kidney not visualized, possibly absent or involuted given discussion above. 2. Mild left-sided proximal hydroureter. No obvious obstructing calculus is seen. 3. Imaged portions of the appendix appear upper limits of normal in caliber without overt evidence of adjacent inflammatory stranding to suggest acute appendicitis. Signed by: Sammy Horta 02/08/2024 2:40 PM Dictation workstation: [id number] Normal [facility] Comprehensive metabolic 2000 panelon 02-08-2024 Albumin BCP dye [Mass/Vol] 4.6 g/dL Normal 3.4-5.0 [facility] Comment on above: Performed By: #### 2 4323-8 #### LUIS FERNANDO MCINTOSH ([id number]) [facility] ([facility]) [address] [place] [address] 89609 ALP [Catalytic activity/Vol] 54 U/L Normal 33-110 [facility] Comment on above: Performed By: #### 2 4323-8 #### LUIS FERNANDO MCINTOSH ([id number]) [facility] ([facility]) [address] [place] [address] 57177 ALT With P-5'-P [Catalytic activity/Vol] 11 U/L Normal 7-45 [facility] Comment on above: Result Comment: Tash ents treated with Sulfasalazine may generate falsely decreased results for ALT. Performed By: #### 2 432-8 #### LUIS FERNANDO MCINTOSH ([id number]) [facility] ([facility]) [address] [place] [address] 40001 Anion gap [Moles/Vol] 13 mmol/L Normal 10-20 [facility] Comment on above: Performed By: #### 2 4322-8 #### LUIS FERNANDO MCINTOSH ([id number]) [facility] ([facility]) [address] [place] [address] 07027 AST With P-5'-P [Catalytic activity/Vol] 19 U/L Normal 9-39 [facility] Comment on above: Performed By: #### 2 432-8 #### LUIS FERNANDO MCINTOSH ([id number]) [facility] ([facility]) [address] [place] [address] 41713 Bilirubin [Mass/Vol] 0.5 mg/dL Normal 0.0-1.2 [facility] Comment on above: Performed By: #### 2 3-8 #### LUIS FERNANDO MCINTOSH ([id number]) [facility] ([facility]) [address] [place] [address] 16166 Calcium [Mass/Vol] 9.8 mg/dL Normal 8.6-10.3 [place] Comment on above: Performed By: #### 2 3-8 #### LUIS FERNANDO MCINTOSH ([id number]) [facility] ([facility]) [address] [place] [address] Chloride [Moles/Vol] 113 mmol/L High 98-107 [facility] Comment on above: Performed By: #### 2 4323-8 #### LUIS FERNANDO MCINTOSH ([id number]) [facility] ([facility]) [address] [place] [address] CO2 [Moles/Vol] 19 mmol/L Low 21-32 [facility] Comment on above: Performed By: #### 2 4323-8 #### LUIS FERNANDO MCINTOSH ([id number]) [facility] ([facility]) [facility] [place] [address] Creatinine [Mass/Vol] 2.08 mg/dL High 0.50-1.05 [facility] Comment on above: Performed By: #### 2 4323-8 #### LUIS FERNANDO MCINTOSH ([id number]) [facility] ([facility]) [facility] [place] [address] Glomerular filtration rate/1.73 sq M.predicted 32 mL/min/1.73m*2 Low >60 [facility] Comment on above: Result Comment: Calc ulations of estimated GFR are performed using the 2020 CKD-EPI Study Refit equation without the race variable for the IDMS-Traceable creatinine methods. https://jasn.asnjournals.org/content//ASN.2020 004960 Performed By: #### 2 4323-8 #### LUIS FERNANDO MCINTOSH ([id number]) [facility] ([facility]) [address] [place] [address] Glucose [Mass/Vol] 97 mg/dL Normal 74-99 [place] Comment on above: Performed By: #### 2 4323-8 #### LUIS FERNANDO MCINTOSH ([id number]) [facility] ([facility]) [address] [place] [address] Potassium [Moles/Vol] 3.4 mmol/L Low 3.5-5.3 [facility] Comment on above: Performed By: #### 2 4323-8 #### LUIS FERNANDO MCINTOSH ([id number]) [facility] ([facility]) [address] [place] [address] 45588 Protein [Mass/Vol] 7.8 g/dL Normal 6.4-8.2 [place] Comment on above: Performed By: #### 2 4323-8 #### LUIS FERNANDO MCINTOSH ([id number]) [facility] ([facility]) [address] [place] [address] 71071 Sodium [Moles/Vol] 142 mmol/L Normal 136-145 [place] Comment on above: Performed By: #### 2 4323-8 #### LUIS FERNANDO MCINTOSH ([id number]) [facility] ([facility]) [address] [place] [address] 83899 Urea nitrogen [Mass/Vol] 16 mg/dL Normal 6-23 [facility] Comment on above: Performed By: #### 2 4323-8 #### LUIS FERNANDO MCINTOSH ([id number]) [facility] ([facility]) [address] [place] [address] 30018 HCG ( test) IA.rapi d Ql (U)on 02-08-2024 HCG ( test) Ql (U) Negative Normal NEGATIVE [facility] Comment on above: Performed By: #### 8 0384-1 #### LUIS FERNANDO MCINTOSH ([id number]) [facility] ([facility]) [address] [place] [address] 40569 Lactateon 02-08-2024 Lactate [Moles/Vol] 0.9 mmol/L Normal 0.4-2.0 [facility] Comment on above: Order Comment: Venip uncture immediately after or during the administration of Metamizole may lead to falsely low results. Testing should be performed immediately prior to Metamizole dosing. Performed By: #### 2 524-7 #### LUIS FERNANDO MCINTOSH ([id number]) [facility] ([facility]) [address] [place] [address] 78702 NM HEPATOBILIARY W CHOLECYST OKININon 02-08-2024 NM HEPATOBILIARY W CHOLECYSTOKININ Interpreted By: Marcie Kirkpatrick and Kaur Arashdeep STUDY: NM HEPATOBILIARY W CHOLECYSTOKININ; 02/09/2024 11:23 am INDICATION: Signs/Symptoms:Recurrent intractable right upper quadrant/epigastric pain.. COMPARISON: Ultrasound abdomen dated 02/09/2024. CT abdomen dated 02/08/2024.. ACCESSION NUMBER(S): [id number] ORDERING CLINICIAN: FOREST LU TECHNIQUE: DIVISION OF NUCLEAR MEDICINE HEPATOBILIARY SCAN (HIDA), QUANTITATIVE The patient received an intravenous dose of 6 mCi of Tc-99m mebrofenin (Choletec). Sequential images of the upper abdomen were then acquired over the next 60 minutes. An intravenous infusion of the cholecystokinin (CCK) analogue, Sincalide, was then administered followed by an additional period of imaging. Computer quantification of gallbladder emptying was also performed FINDINGS: There is prompt accumulation of activity within the liver and normal subsequent excretion via the biliary ductal system into the small bowel. The gallbladder first visualizes at about 10 minutes after radiopharmaceutical injection and progressively fills. After Sincalide administration, there is prompt contraction of the gallbladder with further anterograde transit of activity into the small bowel. The gallbladder ejection fraction is calculated to be 82 % (normal above 38%). IMPRESSION: 1. Patent cystic duct and common bile duct without evidence of acute or chronic cholecystitis. 2. Normal gallbladder ejection fraction, estimated at 82% (normal above 38%). I personally reviewed the images/study and I agree with the findings as stated by John Stringer MD. This study was interpreted at [facility], . MACRO: None Signed by: Marcie Kirkpatrick 02/09/2024 12:20 PM Dictation workstation: [id number] Normal [facility] Triacylglycerol lipaseon Lipase [Catalytic activity/Vol] 46 U/L Normal 9-82 [facility] Comment on above: Order Comment: Venip uncture immediately after or during the administration of Metamizole may lead to falsely low results. Testing should be performed immediately prior to Metamizole dosing. Performed By: #### 3 040-3 #### GOULD DAYNA ([id number]) [facility] ([facility]) [address] [place] [address] US ABDOMEN LIMITED LIVERon 0 02-08-2024 US ABDOMEN LIMITED LIVER Interpreted By: Wagner Mcgill, STUDY: US ABDOMEN LIMITED LIVER; 02/09/2024 6:59 am INDICATION: Signs/Symptoms:Intractab le recurrent right upper quadrant/epigastric pain, CT negative for gallstones.. COMPARISON: CT abdomen/pelvis of 02/08/2024. ACCESSION NUMBER(S): [id number] ORDERING CLINICIAN: FOREST LU TECHNIQUE: Real-time sonographic evaluation of the right upper quadrant was performed. FINDINGS: LIVER: The liver is homogeneous in echotexture. No focal hepatic lesion is identified. Liver measures 14.6 cm in sagittal dimension. GALLBLADDER: The gallbladder is nondistended and demonstrates no evidence of gallstones, wall thickening or surrounding fluid. The gallbladder wall measures 2 mm. Sonographic Blackburn's sign is negative. BILIARY TREE: Common bile duct is not dilated measuring 3 mm in diameter. PANCREAS: The visualized pancreas is unremarkable in appearance. Pancreatic distal body and tail are partially obscured by bowel gas. RIGHT KIDNEY: Right kidney is not visualized as also described on recent CT. IMPRESSION: Nonvisualization of the right kidney. Otherwise unremarkable ultrasound of the right upper quadrant. MACRO: None. Signed by: Wagner Mcgill 02/09/2024 8:45 AM Dictation workstation: [id number] Normal [facility] Urinalysis complete W Reflex Culture panel (U)on 02-08-2024 Appearance (U) Clear Normal Clear [facility] Comment on above: Performed By: #### 5 8077-9 #### LUIS FERNANDO MCINTOSH ([id number]) [facility] ([facility]) [address] [place] [address] Bilirubin (U) [Mass/Vol] Negative Normal NEGATIVE [facility] Comment on above: Performed By: #### 5 8077-9 #### LUIS FERNANDO MCINTOSH ([id number]) [facility] ([facility]) [address] [place], [place] [address] Color (U) Light-Yellow Normal Light-Yellow , Yellow, Dark-Yellow [facility] Comment on above: Performed By: #### 5 8077-9 #### LUIS FERNANDO MCINTOSH ([id number]) [facility] ([facility]) [facility] [place] [address] Epithelial cells.squamous Auto (Urine sed) [#/Area] 1-9 (SPARSE) Normal Reference range not established. [facility] Comment on above: Performed By: #### 5 8077-9 #### LUIS FERNANDO MCINTOSH ([id number]) [facility] ([facility]) [address] [place], [place] [address] Glucose Auto test strip (U) [Mass/Vol] 70 (1+) Abnormal Normal [facility] Comment on above: Performed By: #### 5 8077-9 #### LUIS FERNANDO MCINTOSH ([id number]) [facility] ([facility]) [address] [place] [address] Ketones (U) [Mass/Vol] Negative Normal NE[facility]IVE [facility] on above: Performed By: #### 5 8077-9 #### LUIS FERNANDO MCINTOSH ([id number]) [facility] ([facility]) [address] [place] [address] Leukocyte esterase Auto test strip Ql (U) Negative Normal NEGATIVE [facility] Comment on above: Performed By: #### 5 8077-9 #### LUIS FERNANDO MCINTOSH ([id number]) [facility] ([facility]) [address] [place] [address] 35514 Mucus Auto (Urine sed) [#/Area] FEW Normal Reference range not established. [facility] Comment on above: Performed By: #### 5 8077-9 #### LUIS FERNANDO MCINTOSH ([id number]) [facility] ([facility]) [address] [place] [address] 02030 Nitrite Auto test strip Ql (U) Negative Normal NEGATIVE [facility] Comment on above: Performed By: #### 5 8077-9 #### LUIS FERNANDO MCINTOSH ([id number]) [facility] ([facility]) [address] [place] [address] 73549 pH (U) 7.0 [pH] Normal 5.0, 5.5, 6.0, 6.5, 7.0, 7.5, 8.0 [facility] Comment on above: Performed By: #### 5 8077-9 #### LUIS FERNANDO MCINTOSH ([id number]) [facility] ([facility]) [address] [place] [address] 89263 Protein (U) [Mass/Vol] 300 (3+) Abnormal NEGAT JUN, 10 (TRACE), 20 (TRACE) [facility] Comment on above: Performed By: #### 5 8077-9 #### LUIS FERNANDO MCINTOSH ([id number]) [facility] ([facility]) [address] [place] [address] 10498 RBC (U) [#/Vol] 0.03 (TRACE) Abnormal NEGATIVE [facility] Comment on above: Performed By: #### 5 8077-9 #### LUIS FERNANDO MCINTOSH ([id number]) [facility] ([facility]) [address] [place] [address] 28301 RBC Auto (Urine sed) [#/Area] 1-2 Normal NONE, 1-2, 3-5 [facility] Comment on above: Performed By: #### 5 8077-9 #### LUIS FERNANDO MCINTOSH ([id number]) [facility] ([facility]) [address] [place] [address] 51961 Specific gravity (U) [Rel density] 1.012 Normal 1.005-1.035 [facility] Comment on above: Performed By: #### 5 8077-9 #### LUIS FERNANDO MCINTOSH ([id number]) [facility] ([facility]) [address] [place] [address] 74215 Urobilinogen (U) [Mass/Vol] Normal Normal Normal [facility] Comment on above: Performed By: #### 5 8077-9 #### LUIS FERNANDO MCINTOSH ([id number]) [facility] ([facility]) [address] [place] [address] 66020 WBC Auto (Urine sed) [#/Area] 1-5 Normal 1-5, NONE [facility] Comment on above: Performed By: #### 5 8077-9 #### LUIS FERNANDO MCINTOSH ([id number]) [facility] ([facility]) [address] [place] [address] NM Stomach Views for gastric emptying solid phase W radionuclide Zayda 01-12-2024 IMPRESSION: EVIDENCE OF NORMAL RATE OF GASTRIC EMPTYING OF SOLID MEAL. Foreign Exchange Position Clerk: COLBY Transcribe Date/Time: Jan 12 2024 5:51P Dictated by : SAULO CARMICHAEL MD This examination was interpreted and the report reviewed and electronically signed by: SAULO CARMICHAEL MD on Jan 12 2024 5:54PM [facility] DIVISION OF RADIOLOGY * * *Final Report* * * DATE OF EXAM: Jan 12 2024 4:50PM WON 0017 - NM GASTRIC EMPTYING SOLID / PROCEDURE REASON: multiple diagnoses * * * * Physician Interpretation * * * * SOLID MEAL GASTRIC EMPTYING STUDY: CLINICAL HISTORY: Nausea, vomiting, early satiety To assess for abnormal gastric emptying of a solid meal. TECHNIQUE: 1 mCi Tc-99m sulfur colloid was given orally in a meal consisting of 3 ounces egg beaters and 8 ounces of water 1-minute posterior and anterior spot images of the stomach region at times 0, 1, 2, and 4 hours RESULT: Solid study demonstrates 60% retention at 1hr, 39% retention at 2hr, and 7% retention at 4hr (normal emptying is 37-90% retention at 1hr, 30-60% retention at 2hr, and 0-10% retention at 4hr). There is no evidence of accelerated emptying of gastric contents, with 60% retention at 1hr (rapid emptying is <30% retention at 1hr). DIVISION OF RADIOLOGY Provider, Rashard das Norris - 01/12/2024 * * *Final Report* * * DATE OF EXAM: Jan 12 2024 4:50PM WON 0017 - NM GASTRIC EMPTYING SOLID / PROCEDURE REASON: multiple diagnoses * * * * Physician Interpretation * * * * SOLID MEAL GASTRIC EMPTYING STUDY: CLINICAL HISTORY: Nausea, vomiting, early satiety To assess for abnormal gastric emptying of a solid meal. TECHNIQUE: 1 mCi Tc-99m sulfur colloid was given orally in a meal consisting of 3 ounces egg beaters and 8 ounces of water 1-minute posterior and anterior spot images of the stomach region at times 0, 1, 2, and 4 hours RESULT: Solid study demonstrates 60% retention at 1hr, 39% retention at 2hr, and 7% retention at 4hr (normal emptying is 37-90% retention at 1hr, 30-60% retention at 2hr, and 0-10% retention at 4hr). There is no evidence of accelerated emptying of gastric contents, with 60% retention at 1hr (rapid emptying is <30% retention at 1hr). IMPRESSION IMPRESSION: EVIDENCE OF NORMAL RATE OF GASTRIC EMPTYING OF SOLID MEAL. Foreign Exchange Position Clerk[facility] Transcribe Date/Time: Jan 12 2024 5:51P Dictated by : SAULO CARMICHAEL MD This examination was interpreted and the report reviewed and electronically signed by: SAULO CARMICHAEL MD on Jan 12 2024 5:54PM [facility] Radiology Study observation (narrative) Cherelle davidson [facility] Stomach Views for gastric emptying solid phase W radionuclide POOrdered By: Ccf Provider on 01-12-2024 [facility] XR Chest PA and Lateralon IMPRESSION: Stable exam without acute findings. Foreign Exchange Position Clerk: [facility] Transcribe Date/Time: Nov 13 2023 12:40P Dictated by : PEGGY BARNETT MD This examination was interpreted and the report reviewed and electronically signed by: PEGGY BARNETT MD on Nov 13 2023 12:41PM [facility] DIVISION OF RADIOLOGY * * *Final Report* * * DATE OF EXAM: Nov 13 2023 12:38PM WOX 5291 - XR CHEST 2V FRONTAL/LAT / PROCEDURE REASON: multiple diagnoses * * * * Physician Interpretation * * * * EXAMINATION: CHEST RADIOGRAPH (2 VIEW FRONTAL & LATERAL) CLINICAL HISTORY: Moderate persistent asthma with (acute) exacerbation Acute cough MQ: XC2_6 EXAM DATE/TIME: 11/13/2023 12:38 PM COMPARISON: Chest x-ray on 09/10/2023 RESULT: Lines, tubes, and devices: None. Lungs and pleura: No consolidation. No lung mass. No pleural effusion. No pneumothorax. Cardiomediastinal silhouette: Normal cardiomediastinal silhouette. Bones and soft tissues: A few surgical clips overlying the left upper chest/lower neck. DIVISION OF RADIOLOGY Provider, [facility] - 11/13/2023 * * *Final Report* * * DATE OF EXAM: Nov 13 2023 12:38PM WOX 5291 - XR CHEST 2V FRONTAL/LAT / PROCEDURE REASON: multiple diagnoses * * * * Physician Interpretation * * * * EXAMINATION: CHEST RADIOGRAPH (2 VIEW FRONTAL & LATERAL) CLINICAL HISTORY: Moderate persistent asthma with (acute) exacerbation Acute cough MQ: XC2_6 EXAM DATE/TIME: 11/13/2023 12:38 PM COMPARISON: Chest x-ray on 09/10/2023 RESULT: Lines, tubes, and devices: None. Lungs and pleura: No consolidation. No lung mass. No pleural effusion. No pneumothorax. Cardiomediastinal silhouette: Normal cardiomediastinal silhouette. Bones and soft tissues: A few surgical clips overlying the left upper chest/lower neck. IMPRESSION IMPRESSION: Stable exam without acute findings. Foreign Exchange Position Clerk: COLBY Transcribe Date/Time: Nov 13 2023 12:40P Dictated by : PEGGY BARNETT MD This examination was interpreted and the report reviewed and electronically signed by: PEGGY BARNETT MD on Nov 13 2023 12:41PM EST [facility] Radiology Study observation (narrative) Cherelle davidson [facility] XR Chest PA and LateralOrder ed By: Ccf Provider on 11-13-2023 [facility] 36on 09-15-2023 36 Spoke with patient a nd she already has dr jackelin Ferrer. Dr. Judd name as PCP has been dropped and new doctor added. [facility] 36on 09-14-2023 36 Lm for patient to call [facility] 36 See if she wants to follow up with us - she did not come to her last visit. Maybe because she lives in [place] now. Ask her the ALICE questions if she is going to follow-up here. INSTRUCTIONS TO MA/SW: Please call patient on day after discharge (must document patient contacted within 2 business days of discharge). FOLLOW UP QUESTIONS FOR MA/SW: 1. Did you get medications filled and taking them as instructed from discharge? 2. Are you following your discharge instructions from your hospital stay? 3. Please confirm patient is scheduled for a follow up appointment within the above time frame. [facility] 36on 09-12-2023 36 Name of caller: Kelsy herrera Contact phone number: [phone] [facility] Provider: Dr. Judd Practice: [facility] Chief Complaint/Reason for Call: Lindsay from [facility] would like to inform Dr. Judd that Patient was admitted to [facility] on 09/09 for a kidney infection and they are currently receiving IV antibiotics and they will be discharging today 09/11. FYI please advise. Best time of day caller can be reached: Any Patient advised that office/PCP has 24-48 business hours to return their call: No Normal [facility] Absolute lymphocyte countOrd ered By: Mark Rooney on 09-09-2023 Lymphocytes Auto (Unsp spec) [#/Vol] 1.31 10*3/uL 0.83-4.51 [facility] Automated lymphocyte count a s percentage of total leukocytesOrdered By: Mark Rooney on 09-09-2023 Lymphocytes/100 WBC Auto (Unsp spec) 18.2 % 19-41 [facility] Basophil percentageOrdered B y: Mark Rooney on 09-09-2023 Basophil percentage >100 SEEN /hpf 0-5 [facility] Basophils/100 WBC (Bld) 0.6 % 0-1 [facility] Bilirubin [Mass/Vol] 0.30 mg/dL 0.20-1.00 [facility] Comment on above: For patients on eltr ombopag therapy, use of Dimension [place] TBIL is not recommended. Chloride [Moles/Vol] 119 mmol/L 98-107 [facility] Eosinophils/100 WBC (Bld) 1.7 % 0-5 [facility] Glucose [Mass/Vol] 70 mg/dL 74-106 [facility] Hemoglobin (Bld) [Mass/Vol] 9.7 g/dL 12.0-15.0 [facility] Monocytes/100 WBC (Bld) 9.3 % 0-10 [facility] Neutrophils (Bld) [#/Vol] 5.0 10*3/uL 2.0-7.7 [facility] Neutrophils/100 WBC (Bld) 69.5 % 47-70 [facility] Potassium [Moles/Vol] 4.3 mmol/L 3.5-5.1 [facility] Protein [Mass/Vol] 6.6 g/dL 6.4-8.2 [facility] Sodium [Moles/Vol] 144 mmol/L 136-145 [facility] WBC (Bld) [#/Vol] 7.2 10*3/uL 4.4-11.0 [facility] Bilirubin Test strip Ql (U)O rdered By: Mark Rooney on 09-09-2023 Bilirubin Ql (U) Negative Negative [facility] Determination of erythrocyte mean corpuscular volume (MCV)Ordered By: Mark Rooney on 09-09-2023 MCV (RBC) [Entitic vol] 94.1 fL 81-99 [facility] Direct bilirubinOrdered By: Mark Rooney on 09-09-2023 Bilirubin.direct [Mass/Vol] 0.08 mg/dL 0.00-0.30 [facility] Erythrocyte distribution wid th ratioOrdered By: Mark Rooney on 09-09-2023 Erythrocyte distribution width (RBC) [Ratio] 14.3 % 11.6-14.6 [facility] Erythrocyte distribution wid th standard deviationOrdered By: Mark Rooney on 09-09-2023 Erythrocyte distribution width (RBC) [Entitic vol] 49.0 fL 35.1-43.9 [facility] Hematocrit Auto (Bld) [Volum e fraction]Ordered By: Mark Rooney on 09-09-2023 Hematocrit (Bld) [Volume fraction] 32.0 % 37-47 [facility] Immature granulocytes/100 WB C Auto (Bld)Ordered By: Mark Rooney on 09-09-2023 Immature granulocytes/100 WBC (Bld) 0.700 % 0.0-0.9 [facility] Comment on above: IG% - Immature Granu locytes (promyelocytes, myelocytes and metamyelocytes) > 1% indicates that a LEFT SHIFT is Present. Ketones Test strip Ql (U)Ord ered By: Mark Rooney on 09-09-2023 Ketones Ql (U) Negative Negative [facility] Laboratory - Chemistry and C hemistry - challengeOrdered By: Mark Rooney on 09-09-2023 HCG ( test) Ql (U) Negative [facility] Comment on above: Very dilute urine sp ecimens, as indicated by a low specificgravity, may not contain customer service representative teacher levels of hCG. If is still suspected, a first morning urinespecimen should be collected 48 hours later and tested. ALP [Catalytic activity/Vol] 81 U/L 45-117 [facility] ALT [Catalytic activity/Vol] 15 U/L 13-56 [facility] CO2 [Moles/Vol] 20.0 mmol/L 21.0-32.0 [facility] Globulin (S) [Mass/Vol] 3.7 g/dL 2.2-4.2 [facility] Urea nitrogen/Creatinine [Mass ratio] 12.4 mg/mg 10-20 [facility] - Drug toxicology Ordered By: Mark Rooney on 09-09-2023 Amphetamines Ql (U) Negative <1000 ng/mL [facility] Benzodiazepines Ql (U) Negative < 200 ng/mL [facility] Cannabinoids Screen Ql (U) Positive < 50 ng/mL [facility] Cocaine Ql (U) Negative < 300 ng/mL [facility] Opiates Ql (U) Negative < 300 ng/mL [facility] - Hematology and Cell countsOrdered By: Mark Rooney on 09-09-2023 MCH (RBC) [Entitic mass] 28.5 pg 27.0-32.0 [facility] MCHC (RBC) [Mass/Vol] 30.3 g/dL 32-36 [facility] Nucleated RBC/100 WBC (Bld) [Ratio] 0 % 0-5 [facility] Platelet mean volume (Bld) [Entitic vol] 10.3 fL 6.2-12.0 [facility] Platelets (Bld) [#/Vol] 151 10*3/uL 150-450 [facility] - Microbiology an d Antimicrobial susceptibilityOrdered By: Mark Rooney on 09-09-2023 SARS-CoV-2 (COVID-19) RNA LOLITA+probe Ql (Unsp spec) [facility] Mucus LM Ql (Urine sed)Order ed By: Mark Rooney on 09-09-2023 Mucus Ql (Urine sed) 0 SEEN /hpf [facility] Nitrite Test strip Ql (U)Ord ered By: Mark Rooney on 09-09-2023 Nitrite Ql (U) Negative Negative [facility] No Panel InformationOrdered By: Mark Rooney on 09-09-2023 MDMA (Ecstasy) Screen Negative < 500 ng/mL [facility] Urine Barbiturates Screen Negative < 200 ng/mL [facility] Urine Drug Screen Comment [facility] Comment on above: CONFIRMATORY TESTING FOR ALL POSITIVE URINE DRUG SCREENRESULTS WILL ONLY BE SENT OUT UPON PHYSICIAN ORDER. VISTA Urine Drug Screen methods provide only preliminaryanalytical test results. A more specific alternate chemicalmethod must be used in order to obtain a confirmedanalytical result. Gas chromatography/mass spectrometery(GC/MS) is the preferred confirmatory method. Clinicalconsideration and professional judgement should be appliedto any drug of abuse test result, particularly whenpreliminary positive results are used. URINE TCA TESTING MUST BE ORDERED SEPARATELY. USE TESTMNEMONIC: [facility] Urine Methadone Screen Negative < 300 ng/mL [facility] Urine RBC 0 SEEN /hpf 0-5 [facility] Estimated Creatinine Clearance Calc 1.43 ml/min [facility] Estimated GFR (MDRD) Amer 32 mL/min >60 [facility] Comment on above: GFR Calc Estimated GFR (MDRD) Non-Af Amer 27 mL/min >60 [facility] Comment on above: Non- GFR Calc Protein Test strip Ql (U)Ord ered By: Mark Rooney on 09-09-2023 Protein Ql (U) 100 mg/dl Negative [facility] RBC Auto (Bld) [#/Vol]Ordere d By: Mark Rooney on 09-09-2023 RBC (Bld) [#/Vol] 3.40 10*6/uL 4.2-5.4 [facility] Serum or plasma calcium brittney urement (mass/volume)Ordered By: Mark Rooney on 09-09-2023 Calcium [Mass/Vol] 7.7 mg/dL 8.5-10.1 [facility] Serum or plasma creatinine m easurement (mass/volume)Ordered By: Mark Rooney on 09-09-2023 Creatinine [Mass/Vol] 2.25 mg/dL 0.55-1.02 [facility] Comment on above: The validity of the calculated GFR & GFRAA in patients over 70 years has not been determined. Clinical correlation is essential. Serum or plasma urea nitroge n measurement (mass/volume)Ordered By: Mark Rooney on 09-09-2023 Urea nitrogen [Mass/Vol] 28 mg/dL 7-18 [facility] Squamous epithelial cells de tection in urine sediment by light microscopyOrdered By: Mark Rooney on 09-09-2023 Epithelial cells.squamous LM Ql (Urine sed) 0 SEEN /hpf 5-10 [facility] Thin prep Papanicolaou smear with manual screeningOrdered By: Mark Rooney on 09-09-2023 Thin prep Papanicolaou smear with manual screening 2.9 g/dL 3.2-5.0 [facility] Thin prep Papanicolaou smear with manual screening 15 U/L 15-37 [facility] Thin prep Papanicolaou smear with manual screening 5 5-15 [facility] Urine blood detectionOrdered By: Mark Rooney on 09-09-2023 RBC Ql (U) 50 /ul Negative [facility] Urine clarityOrdered By: Robin Rooney on 09-09-2023 Clarity (U) Sl. Cloudy Clear [facility] Urine color determinationOrd ered By: Mark Rooney on 09-09-2023 Color (U) Yellow Yellow [facility] Urine glucose detectionOrder ed By: Mark Rooney on 09-09-2023 Glucose Ql (U) Normal mg/dl Normal [facility] Urine leukocyte esterase det ection by dipstickOrdered By: Mark Rooney on 09-09-2023 Leukocyte esterase Test strip Ql (U) 500 /ul Negative [facility] Urine pHOrdered By: Mark charles on 09-09-2023 pH (U) 6.5 [pH] 5.0 - 8.0 [facility] Urine phencyclidine (PCP) de tectionOrdered By: Mark Rooney on 09-09-2023 Phencyclidine Ql (U) Negative < 25 ng/mL [facility] Urine sediment bacteria coun t by microscopy (number/high power field)Ordered By: Mark Rooney on 09-09-2023 Bacteria LM.HPF (Urine sed) [#/Area] 2 /[HPF] None Seen [facility] Urine specific gravity measu rementOrdered By: Mark Rooney on 09-09-2023 Specific gravity (U) [Rel density] 1.010 1.002-1.030 [facility] Urine urobilinogen measureme ntOrdered By: Mark Rooney on 09-09-2023 Urobilinogen Ql (U) Normal mg/dl Normal [facility] 36on 08-08-2023 36 noted Normal [facility] 36 Name of caller: Kelsy herrera Contact phone number: [phone] Relationship to Patient: [facility] Provider: Dr. Judd Practice: [facility] Chief Complaint/Reason for Call: Lindsay with [facility] wanted to let Dr. Judd know that pt is hospitalized inpatient at [facility] in [facility]. Pt was admitted on 08/03/23 reason for admitted is Psychosis. No discharge date Best time of day caller can be reached: AM Patient advised that office/PCP has 24-48 business hours to return their call: N/A Normal [facility] Absolute lymphocyte countOrd ered By: Torito Mensah on 08-03-2023 Lymphocytes Auto (Unsp spec) [#/Vol] 2.32 10*3/uL 0.83-4.51 [facility] Automated lymphocyte count a s percentage of total leukocytesOrdered By: Torito Mensah on 08-03-2023 Lymphocytes/100 WBC Auto (Unsp spec) 22.3 % 19-41 [facility] Basophil percentageOrdered B y: Torito Mensah on 08-03-2023 Basophils/100 WBC (Bld) 0.4 % 0-1 [facility] Bilirubin [Mass/Vol] 0.40 mg/dL 0.20-1.00 [facility] Comment on above: For patients on eltr ombopag therapy, use of Dimension [place] TBIL is not recommended. Chloride [Moles/Vol] 112 mmol/L 98-107 [facility] Eosinophils/100 WBC (Bld) 0.1 % 0-5 [facility] Glucose [Mass/Vol] 103 mg/dL 74-106 [facility] Comment on above: Fasting Glucose resu lt from 100 to 125 mg/dL suggests IMPAIRED HOMEOSTASIS per A.D.A. criteria. Hemoglobin (Bld) [Mass/Vol] 12.8 g/dL 12.0-15.0 [facility] Monocytes/100 WBC (Bld) 7.8 % 0-10 [facility] Neutrophils (Bld) [#/Vol] 7.2 10*3/uL 2.0-7.7 [facility] Neutrophils/100 WBC (Bld) 68.8 % 47-70 [facility] Potassium [Moles/Vol] 3.0 mmol/L 3.5-5.1 [facility] Protein [Mass/Vol] 8.4 g/dL 6.4-8.2 [facility] Sodium [Moles/Vol] 141 mmol/L 136-145 [facility] WBC (Bld) [#/Vol] 10.4 10*3/uL 4.4-11.0 [facility] COVID-19 virus antigen assay Ordered By: Torito Mensah on 08-03-2023 SARS-CoV-2 (COVID-19) Ag IA.rapid Ql (Resp) [facility] SARS-CoV-2 (COVID-19) Ag IA.rapid Ql (Resp) [facility] Determination of erythrocyte mean corpuscular volume (MCV)Ordered By: Torito Mensah on 08-03-2023 MCV (RBC) [Entitic vol] 84.2 fL 81-99 [facility] Erythrocyte distribution wid th ratioOrdered By: Torito Mensah on 08-03-2023 Erythrocyte distribution width (RBC) [Ratio] 13.4 % 11.6-14.6 [facility] Erythrocyte distribution wid th standard deviationOrdered By: Torito Mensah on 08-03-2023 Erythrocyte distribution width (RBC) [Entitic vol] 41.5 fL 35.1-43.9 [facility] Hematocrit Auto (Bld) [Volum e fraction]Ordered By: Torito Mensah on 08-03-2023 Hematocrit (Bld) [Volume fraction] 37.7 % 37-47 [facility] Immature granulocytes/100 WB C Auto (Bld)Ordered By: Torito Mensah on 08-03-2023 Immature granulocytes/100 WBC (Bld) 0.600 % 0.0-0.9 [facility] Comment on above: IG% - Immature Granu locytes (promyelocytes, myelocytes and metamyelocytes) > 1% indicates that a LEFT SHIFT is Present. Laboratory - Chemistry and C hemistry - challengeOrdered By: Torito Mensah on 08-03-2023 Albumin/Globulin [Mass ratio] 1.0 {ratio} 0.9-2.4 [facility] ALP [Catalytic activity/Vol] 65 U/L 45-117 [facility] ALT [Catalytic activity/Vol] 44 U/L 13-56 [facility] CO2 [Moles/Vol] 20.0 mmol/L 21.0-32.0 [facility] Globulin (S) [Mass/Vol] 4.2 g/dL 2.2-4.2 [facility] Urea nitrogen/Creatinine [Mass ratio] 10.2 mg/mg 10-20 [facility] - Drug toxicology Ordered By: Torito Mensah on 08-03-2023 Amphetamines Ql (U) Negative <1000 ng/mL [facility] Benzodiazepines Ql (U) Negative < 200 ng/mL [facility] Cannabinoids Screen Ql (U) Positive < 50 ng/mL [facility] Cocaine Ql (U) Negative < 300 ng/mL [facility] Opiates Ql (U) Negative < 300 ng/mL [facility] - Hematology and Cell countsOrdered By: Torito Mensah on 08-03-2023 MCH (RBC) [Entitic mass] 28.6 pg 27.0-32.0 [facility] MCHC (RBC) [Mass/Vol] 34.0 g/dL 32-36 [facility] Nucleated RBC/100 WBC (Bld) [Ratio] 0 % 0-5 [facility] Platelet mean volume (Bld) [Entitic vol] 11.0 fL 6.2-12.0 [facility] Platelets (Bld) [#/Vol] 209 10*3/uL 150-450 [facility] No Panel InformationOrdered By: Torito Mensah on 08-03-2023 MDMA (Ecstasy) Screen Negative < 500 ng/mL [facility] Urine Barbiturates Screen Negative < 200 ng/mL [facility] Urine Drug Screen Comment [facility] Comment on above: CONFIRMATORY TESTING FOR ALL POSITIVE URINE DRUG SCREENRESULTS WILL ONLY BE SENT OUT UPON PHYSICIAN ORDER. VISTA Urine Drug Screen methods provide only preliminaryanalytical test results. A more specific alternate chemicalmethod must be used in order to obtain a confirmedanalytical result. Gas chromatography/mass spectrometery(GC/MS) is the preferred confirmatory method. Clinicalconsideration and professional judgement should be appliedto any drug of abuse test result, particularly whenpreliminary positive results are used. URINE TCA TESTING MUST BE ORDERED SEPARATELY. USE TESTMNEMONIC: [facility] Urine Methadone Screen Negative < 300 ng/mL [facility] Estimated Creatinine Clearance Calc 24.11 ml/min [facility] Estimated GFR (MDRD) Amer 23 mL/min >60 [facility] Comment on above: GFR Calc Estimated GFR (MDRD) Non-Af Amer 19 mL/min >60 [facility] Comment on above: Non- GFR Calc Ethyl Alcohol Level < 3.0 mg/dL [facility] Comment on above: The serum:whole bloo d ethanol ratio is approximately 1.14and varies slightly with hematocrit. Medical Alcohol reference interval and critical value innon-tolerant individuals; 50 - 100 Impairment 100 Intoxication 100 - 250 Severe Poisoning 250 - 400 Deep/possible fatal coma RBC Auto (Bld) [#/Vol]Ordere d By: Torito Mensah on 08-03-2023 RBC (Bld) [#/Vol] 4.48 10*6/uL 4.2-5.4 [facility] Serum or plasma calcium brittney urement (mass/volume)Ordered By: Torito Mensah on 08-03-2023 Calcium [Mass/Vol] 9.8 mg/dL 8.5-10.1 [facility] Serum or plasma choriogonado tropin detectionOrdered By: Torito Mensah on 08-03-2023 HCG ( test) Ql Negative [facility] Serum or plasma creatinine m easurement (mass/volume)Ordered By: Torito Mensah on 08-03-2023 Creatinine [Mass/Vol] 3.03 mg/dL 0.55-1.02 [facility] Comment on above: The validity of the calculated GFR & GFRAA in patients over 70 years has not been determined. Clinical correlation is essential. Serum or plasma thyroid stim ulating hormone (TSH) measurement (units/volume)Ordered By: Torito Mensah on 08-03-2023 TSH Qn 12.50 uIU/mL 0.358-3.74 [facility] Serum or plasma urea nitroge n measurement (mass/volume)Ordered By: Torito Mensah on 08-03-2023 Urea nitrogen [Mass/Vol] 31 mg/dL 7-18 [facility] Thin prep Papanicolaou smear with manual screeningOrdered By: Torito Mensah on 08-03-2023 Thin prep Papanicolaou smear with manual screening 4.2 g/dL 3.2-5.0 [facility] Thin prep Papanicolaou smear with manual screening 24 U/L 15-37 [facility] Thin prep Papanicolaou smear with manual screening 9 5-15 [facility] Urine phencyclidine (PCP) de tectionOrdered By: Torito Mensah on 08-03-2023 Phencyclidine Ql (U) Negative < 25 ng/mL [facility] on 07-24-2023 36 Patient notified via voicemail that rx was sent. Patient also informed that Dr. Judd doesn't have any sooner appts but if she needs one she can always see one of the [facility] 36on 07-22-2023 36 Rx sent for Zofran. I probably don't have any sooner appointments. [facility] 36on 07-21-2023 36 S Patient calling B ongoing chronic A Ongoing nausea. Hx of cancer and kidney failure. Patient has been referred to multiple specialist. Is having ongoing intermittent nausea. Is now out of zofran. Requesting sooner follow up with Dr Judd and refill of zofran. R Pharmacy and allergies verified. Nothing sooner on schedule. Advised to call back with new or worsening symptoms. Thank you. Would like rx today if possible. Reason for Disposition Nausea is a chronic symptom (recurrent or ongoing AND present > 4 weeks) Protocols used: [id number] S: Patient [facility] Urinary urgency/frequency, also feels anxiety/hyperactive B: Per nurse triage ticket created by JAZZMINE A: Patient disconnected prior to speaking with nurse. No answer upon return call to patient. R: Left voice message for patient to call the office if assistance is still needed. Reason for Disposition ? Message left on identified voicemail Protocols used: No Contact or Duplicate Contact [id number] [address] Pt states this medication was previously stopped [...] doctor or facility: N/A Ordering provider: Dr. Judd Date of last office visit: 03/03/23 Date of next office visit: 09/01/23 Date of last refill: (see medication tab): 03/03/23 Updated/Validated preferred pharmacy: Yes- [id number] - [place], [place] - [address] Patient instructed to contact the pharmacy prior to picking up the medication: Yes [place] [address]on 05-26-2023 36 No forms have been s een yet will check on providers desk [place] [address] Patient had appt tostuart gorman that she no-showed [place] [address] S: The patient is calling the [facility] About urinary symptoms B: This started multiple weeks ago A: She has had burning and headaches. She has lower back pain. She denies abdominal pain or fever. R: She has a history of pyelonephritis and nephrectomy; advised that she needs to be seen today. She will go to . She is asking about CBD without the THC (she is a recovering addict) and whether this would help her migraines. Advised that she be up front with her neurologist and ask what her options are for medications. The neurologist will respect her honesty and desire to stay clean but to also work toward better control of the headaches. She will do this. Reason for Disposition Side (flank) or lower back pain present Protocols used: Urinary [id number] [address] Name of caller: Brandon johnson Contact phone number: [phone] Relationship to Patient: patient Provider: Dr. Judd Practice: [facility] Chief Complaint/Reason for Call: Pt calling back regarding status of paperwork, advise per previous TE Fax# needed. Pt provided , please advise. Thank you. Best time of day caller can be reached: Any Patient advised that office/PCP has 24-48 business hours to return their call: No Normal [facility] 36on 05-24-2023 36 Patient read [employer] message with no response. [facility] 36 S: Patient spoke wit h [facility] nurse regarding UTI symptoms B: Onset of symptoms/concern couple weeks A: Patient reports she is having headaches and back pain with foul smelling urine. Patient states also having burning with urination. Patient denies fever. Patient reports she only has 1 kidney and gets infections often. Patient declined appt 05/25 R: Appointment scheduled 05/[address] Judd. No further needs at this time. Patient instructed to call back with new or worsening symptoms. Reason for Disposition ? Bad or foul-smelling urine Protocols used: Urinary [id number] [facility] 36on 05-23-2023 36 Sent patient a [employer] message for the fax number [facility] 36 It looks like she is applying for disability. There is no form to fill out, but they need records from June 26, 2022 until now. Please send all our office notes from that time and her labs from February. Records from other doctors need to be sent by them. [facility] 36on 05-22-2023 36 Name of caller: Brandon johnson Contact phone number: [phone] Relationship to Patient: patient Provider: Dr Judd Practice: [facility] Chief Complaint/Reason for Call: Patient calling to check the status of the papework sent from Devyn Read. Patient states she is scheduled for a hearing 06/06/23 and the forms have to be returned prior to the hearing. [facility] is requesting a callback. Please advise, thank you Best time of day caller can be reached: any Patient advised that office/PCP has 24-48 business hours to return their call: Yes [facility] CT CHEST WO IVCONon 04-20- 23 Radiology Result ACTIONABLE Abnormal [facility] MRI BRAIN WO IVCONon 04-11- 023 [facility] 3603-30-2023 36 Name of caller: Brandon johnson Contact phone number: [phone] Relationship to Patient: patient Provider: Practice: [facility] Chief Complaint/Reason for Call: Pt called in stating that she needs a referral for behavioral health. Pt states that they never received on and she stated that one is required for mental health. Pt would like to receive a call back with referral. Please advise. Best time of day caller can be reached: Any Patient advised that office/PCP has 24-48 business hours to return their call: No Normal [facility] 36on 03-23-2023 36 Received notificatio n from the [place] [facility] office that patient was reerred to does not accept pts insurance. Left voicemail for pt regarding referral. Pt to check with insurance for other urology office in [place] or notify us if she wants referral placed to [facility]. Normal [facility] 3603-14-2023 36 Name of caller: Brandon johnson Contact phone number: [phone] Relationship to Patient: patient Provider: Practice: [facility] Chief Complaint/Reason for Call: Patient would like to know if she can get another referral to Behavioral Health for Psychiatry Consult for [facility]. Fax number [phone]. Please advise Best time of day caller can be reached: Any Patient advised that office/PCP has 24-48 business hours to return their call: No Normal [facility] 36 Name of caller: Sanya facundo Contact phone number: [phone] Relationship to Patient: patient Provider: Dr. Judd Practice: [facility] Chief Complaint/Reason for Call: Patient called in regards to fax numbers they have where they would like to have referrals placed. Patient states that they would like to go to the [facility] in [place] to see a [address] and that they would like a referral sent to Dr. Aneta Wall to fax #[phone]. Patient also states that they would like to have a referral sent to [facility] sent to fax #[phone]. Patient would also like to be set up with a Urologist and would like to know if Dr. Judd has any recommendations for this as they would like the location to be close to [place]. Patient states that if there is any Specialty that they missed they would like to be informed so that they can get themselves set up with the Specialty. Please advise. Best time of day caller can be reached: Any Patient advised that office/PCP has 24-48 business hours to return their call: Yes [facility] 36on 03-07-2023 36 Spoke with patient a nd she agreed to increase Symbicort to twice a day. She will stop amitriptyline and start otc magnesium. No further questions from patient at this time. [facility] 36on 03-06-2023 36 LM to return call. Please release message as written: Have her try the Symbicort twice daily for a couple of weeks to see if it starts helping. She can stop the amitriptyline. I would recommend trying an over the counter magnesium supplement once a day for migraine prevention instead. [facility] 36 Have her try the Symbicort twice daily for a couple of weeks to see if it starts helping. She can stop the amitriptyline. I would recommend trying an over the counter magnesium supplement once a day for migraine prevention instead. [facility] 36 S: Patient spoke rich h [facility] nurse regarding medication issue. B: Onset of symptoms/concern: amitriptyline 10 mg A: Patient states medication not working as prescribed on 03/03/23, took medication Monday night, was asleep until late Monday night, felt like she was put to sleep, was out of it when she woke, states Imitrex works fine but has to take it often. Patient also states Symbicort is not helping with her breathing, states she is careful and super picky about what she takes. Patient not sure how long it will take for the Symbicort to help with her breathing. R: Patient advised message would be sent to provider for follow up, verbalized understanding. Reason for Disposition Caller has NON-URGENT medicine question about med that PCP or specialist prescribed and triager unable to answer question Protocols used: Medication Question [id number] [facility] Basic metabolic 1998 panelon 03-04-2023 Anion gap [Moles/Vol] 9 mmol/L [facility] Calcium [Mass/Vol] 9.0 mg/dL 8.6 - 10. 2 mg/dL [facility] Chloride [Moles/Vol] 112 mmol/L High 98 - 11 0 mmol/L [facility] CO2 [Moles/Vol] 20 mmol/L 20 - 32 mmol/L [facility] Creatinine [Mass/Vol] 1.89 mg/dL High 0.50 - 0.97 mg/dL [facility] GFR/1.73 sq M.predicted among non-blacks MDRD (S/P/Bld) [Vol rate/Area] 36 mL/min/{1.73_m2} Low > OR = 60 mL/min/1.73m 2 [facility] Glucose [Mass/Vol] 72 mg/dL 65 - 99 mg/dL [facility] Comment on above: Fasting reference interval Potassium [Moles/Vol] 3.9 mmol/L 3.5 - 5.3 mmol/L [facility] Sodium [Moles/Vol] 141 mmol/L 135 - 146 mmol/L [facility] Urea nitrogen [Mass/Vol] 17 mg/dL 7 - 25 mg/dL [facility] Urea nitrogen/Creatinine [Mass ratio] 9 mg/mg [facility] No Panel Informationon 03-04 Interpretation and review of laboratory results Abnormal [facility] TSHon 03-04-2023 TSH Qn 6.75 m[IU]/L High mIU/L [facility] Comment on above: Reference Range > or = 20 Years 0.40-4.50 Ranges First trimester 0.26-2.66 Second trimester 0.55-2.73 Third trimester 0.43-2.91 Office Visiton 03-03-2023 Follow-up visit [id number] Darin Betts 1990 F Date Provider Department Center 03/03/2023 [id number] [facility] Family History Problem Relation Age of Onset Ulcerative colitis Paternal Grandfather High Blood Pressure Mother Thyroid disease Mother defects Mother Depression Mother Hypertension Mother Mental illness Mother Alcohol abuse Father Cancer Maternal Grandfather Diabetes Mother's Sister Learning disabilities Sister Vision loss Sister Miscarriages / Stillbirths Sister Stomach cancer Neg Hx Colon cancer Neg Hx Crohn's disease Neg Hx Family Status - Relation Status Age at Paternal Grandfather Mother Alive Father Alive Maternal Grandfather Mother's Sister Sister Sister Neg Hx Level of Service:54672 [place] OFFICE/OUTPATIENT ESTABLISHED MOD MDM 30-39 MIN Reason for Visit and Comments: 6 Month Follow-up [671] - Appt on Hypothyroidism, Migraine discuss ECHO [Other] Normal [facility] Progress Noteon 03-03-2023 Progress Note Answers submitted by the patient for this [...] emotional upset, occupational exposure, exercise, any activity [facility] [address] [place] [address] [address] [facility] [address] Dept: [phone] Dept Visit type: Established patient Reason for Visit: 6 Month Follow-up (Appt on Hypothyroidism, Migraine) and discuss ECHO Assessment and Plan 1. Moderate persistent asthma without complication - [facility] [place]ulmonology She agrees to try Symbicort. Referral [...] showed restriction. Has history of chemotherapy with [place] V regimen [id number] for Hodgkins lymphoma. CKD 3b - has not been to nephrology. Wants referred somewhere closer to [place] since she is staying with her mom. [...] mg) by mouth daily. 30 tablet 0 levoth (more content not included)... Normal [employer] [facility] Heart TransthoracicOrdere d By: Luiz Carlson on 03-01-2023 Aortic Sinus Valsalva 2.6 cm [employer] Phone: Aortic Sinus Valsalva Index 1.44 cm/m2 [employer] Phone: Ascending Aorta 2.9 cm [employer] Phone: Ascending Aorta Index 1.60 cm/m2 [employer] Phone: AV Area by Peak Velocity 2.2 cm2 [employer] Phone: AV Area by VTI 2.1 cm2 [employer] Phone: AV Mean Gradient 5 mmHg [employer] Phone: AV Mean Velocity 1.0 m/s [employer] Phone: AV Peak Gradient 7 mmHg [employer] Phone: AV Peak Velocity 1.4 m/s [employer] Phone: AV Velocity Ratio 0.71 [employer] Phone: AV VTI 30.1 cm [employer] Phone: CHRISTIAN/BSA Peak Velocity 1.2 cm2/m2 [employer] Phone: CHRISTIAN/BSA VTI 1.2 cm2/m2 [employer] Work Phone: EF BP 55 % 55 - 100 % [employer] Work Phone: Fractional Shortening 2D 30 % 28 - 44 % [employer] Work Phone: Global Longitudinal Strain -14.0 % [employer] Work Phone: Interpretation and review of laboratory results Abnormal [employer] Work Phone: IVC Diameter 1.4 cm [employer] Work Phone: IVSd 1.0 cm Abnormal 0.6 - 0.9 cm [employer] Work Phone: LA Volume 2C 35 mL 22 - 52 mL [employer] Phone: LA Volume 4C 37 mL 22 - 52 mL [employer] Work Phone: LA Volume A/L 42 mL [employer] Work Phone: LA Volume Index 2C 19 mL/m2 16 - 34 mL/m2 [employer] Work Phone: LA Volume Index 4C 20 mL/m2 16 - 34 mL/m2 [employer] Phone: LA Volume Index A/L 23 mL/m2 16 - 34 mL/m2 [employer] Phone: LV EDV A2C 92 mL [employer] Work Phone: LV EDV A4C 72 mL [employer] Work Phone: LV EDV BP 83 mL 56 - 104 mL [employer] Work Phone: LV EDV Index A2C 51 mL/m2 [employer] Work Phone: LV EDV Index A4C 40 mL/m2 [employer] Work Phone: LV EDV Index BP 46 mL/m2 [employer] Work Phone: LV Ejection Fraction A2C 57 % [facility] Work Phone: LV Ejection Fraction A4C 53 % [facility] Work Phone: LV ESV A2C 40 mL [facility] Work Phone: LV ESV A4C 34 mL [facility] Work Phone: LV ESV BP 38 mL 19 - 49 mL [facility] Work Phone: LV ESV Index A2C 22 mL/m2 [facility] Work Phone: LV ESV Index A4C 19 mL/m2 [facility] Work Phone: LV ESV Index BP 21 mL/m2 [facility] Work Phone: LV Mass 2D 96.9 g 67 - 162 g [facility] Work Phone: LV Mass 2D Index 53.5 g/m2 43 - 95 g/m2 [facility] Work Phone: LV RWT Ratio 0.43 [facility] Work Phone: LVIDd 3.7 cm Abnormal 3.9 - 5.3 cm [facility] Work Phone: LVIDd Index 2.04 cm/m2 [facility] Work Phone: LVIDs 2.6 cm [facility] Work Phone: LVIDs Index 1.44 cm/m2 [facility] Work Phone: LVOT Area 2.8 cm2 [facility] Work Phone: LVOT Cardiac Output 12.3 liter/minute [facility] Work Phone: LVOT Diameter 1.9 cm [facility] Work Phone: LVOT Mean Gradient 2 mmHg [facility] Work Phone: LVOT Peak Gradient 4 mmHg [facility] Work Phone: LVOT Peak Velocity 1.0 m/s [facility] [employer] Phone: LVOT Stroke Volume Index 33.2 mL/m2 [facility] [employer] Work Phone: LVOT SV 60.1 ml [facility] [employer] Work Phone: LVOT VTI 21.2 cm [facility] [employer] Work Phone: LVOT:AV VTI Index 0.70 [facility] [employer] Work Phone: LVPWd 0.8 cm 0.6 - 0.9 cm [facility] [employer] Work Phone: MV A Velocity 0.46 m/s [facility] [employer] Work Phone: MV E Velocity 0.78 m/s [facility] [employer] Phone: MV E Wave Deceleration Time 155.1 ms [facility] [employer] Phone: MV E/A 1.70 [facility] [employer] Phone: RV Basal Dimension 3.6 cm [facility] [employer] Work Phone: RV Mid Dimension 2.8 cm [facility] [employer] Work Phone: Sinotubular Junction 2.8 cm [facility] [employer] Work Phone: TAPSE 2.2 cm 1.7 cm [facility] [employer] Phone: [facility] [employer] Work Phone: Heart Transthoracicon Left Ventricle: Left ventricle size is normal. Normal wall thickness. Normal left ventricular systolic function. EF by 2D Simpsons Biplane is 55%. Global longitudinal strain is -14.0%. Normal wall motion. Normal diastolic function. Right Ventricle: Right ventricle size is normal. Normal systolic function. Left Ventricle Left ventricle size is normal. Normal wall thickness. Normal left ventricular systolic function. EF by 2D Simpsons Biplane is 55%. Global longitudinal strain is -14.0%. Normal wall motion. Normal diastolic function. Right Ventricle Right ventricle size is normal. Normal systolic function. Left Atrium Left atrium size is normal. Right Atrium Right atrium size is normal. IVC/SVC IVC diameter is normal and decreases greater than 50% during inspiration; therefore the estimated right atrial pressure is normal (~3 mmHg). Mitral Valve Valve structure is normal. Trace regurgitation. No stenosis noted. Tricuspid Valve Valve structure is normal. Trace regurgitation. Aortic Valve Trileaflet. No cusp thickening. No cusp calcification. No regurgitation. No stenosis. Pulmonic Valve Valve structure is normal. Trace regurgitation. Ascending Aorta Normal sized sinuses of Valsalva and ascending aorta. Pericardium No pericardial effusion. Septum No interatrial shunt visualized on color Doppler. Study Details Image quality: good. Additional technique includes myocardial strain. Heart rate: 63 bpm. Blood pressure: 96/69 mmHg. The underlying ECG rhythm was sinus rhythm. No contrast was given. CV CPA 01-27-2023 36 Tried calling patien t she didn't answer I lvm to patient and gave her the central scheduling number. If patient calls office back please let her know to call central scheduling at [phone] [facility] 36on 01-26-2023 36 We have been unable to reach your patient to schedule their test. 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 No questions from patient at this time. [facility] 36 ----- Message from Solomon Judd DO sent at 11/21/2022 10:01 AM EDT ----- Please let her know that her PFT is consistent with asthma. She should still get the other testing done also, including the echo she is scheduled for in December. I sent in Symbicort to use up to twice daily as needed. This should help with her breathing. [address] 11-14-2022 36 Ordering provider: Binta Date of last office visit: 10/25/2022 Date of next office visit: 03/03/2023 Updated/Validated preferred pharmacy: yes Patient instructed to contact the pharmacy prior to picking up the medication: no (1) Medication name: sumatriptan Medication dosage: 25 mg (Miligrams Monthly quantity needed: 9 How many day supply requestin days Medication route: oral (PO) Medication administration time(s): as needed (PRN) If taking medication PRN, reason for taking medication: migraine If this is a controlled substance do you receive this or any other controlled medication from any other doctor or facility: no Date of last refill (see medication tab): 09/01/2022 Patient is out! Normal [facility] Office Visiton 10-25-2022 Follow-up visit [id number] Darin Betts taylorjethro 1990 F Date Provider Department Center 10/25/2022 [id number] BOWLING [facility] Family History Problem Relation Age of Onset Ulcerative colitis Paternal Grandfather High Blood Pressure Mother Thyroid disease Mother defects Mother Depression Mother Hypertension Mother Mental illness Mother Alcohol abuse Father Cancer Maternal Grandfather Diabetes Mother's Sister Learning disabilities Sister Vision loss Sister Miscarriages / Stillbirths Sister Stomach cancer Neg Hx Colon cancer Neg Hx Crohn's disease Neg Hx Family Status - Relation Status Age at Paternal Grandfather Mother Alive Father Alive Maternal Grandfather Mother's Sister Sister Sister Neg Hx Level of Service:72559 [place] OFFICE/OUTPATIENT ESTABLISHED MOD MDM 30-39 MIN Reason for Visit and Comments: ER Follow-up [831] - From [facility] on 10/21/22 re: Chest Pain Normal [facility] Progress Noteon 10-25-2022 Progress Note [facility] [address] [place] [address] [address] [facility] [address] Dept: [phone] Dept Visit type: Established patient Reason for Visit: ER Follow-up (From [facility] on 10/21/22 re: Chest Pain) Assessment and Plan 1. Orthostatic hypotension - [facility] Neurology Advised increasing fluid and sodium intake. May end up needing medication. 2. Stage 3b chronic kidney disease (HCC) - External referral to Nephrology 3. Shortness of breath - Complete PFT pre and post bronchodilator - Transthoracic echocardiogram (TTE) complete with contrast, bubble, strain, and 3D PRN 4. Idiopathic peripheral neuropathy - [facility] [place] 5. History of Hodgkin's lymphoma - External referral to Nephrology - [facility] Neurology - Transthoracic echocardiogram (TTE) complete with [...] to take her health more seriously. Seeing Shallotte Rosalina for counseling. Review of Systems Constitutional: Positive [...] tablet 0 cholecalciferol (Vitamin D-3) 50 MCG (2000 UT) [...] 02/24/2016 SECTION, LOW TRANSVERSE COLONOSCOPY 01/15/2020 Dr. Rahman NECK SURGERY Left to remove cancer RECTAL SURGERY as a child UPPER GASTROINTESTINAL ENDOSCOPY 01/15/2020 Dr. Rahman Family History Problem Relation Name Age of [...] BP 96/69 (BP Location: Left arm, Patient Positi (more content not included)... Normal [facility] 10-23-2022 36 Went to ED and diagn osed with UTI. No cause of chest pain found. Normal [facility] 10-21-2022 36 S: pt calling CAC d/ t palpitations, chest tightness B: Symptoms started 2-3 [...] will have someone take her to either [facility] or [place]. . Pt advised to call back with worsening of symptoms, concern or questions. Pt verbalized understanding. Reason for Disposition Difficulty breathing Protocols used: Heart Rate and Heartbeat [id number] [facility] 36on 10-13-2022 36 Sent to Lorna and Anastasiia WILLS See other encounters [place] [address] Spoke with patient a nd relayed message and patient stated she has not taken her thyroid medication in over two weeks fue to losing them during her move and would like a refill Patient also stated she has appt with Wanda at 11:40 because she is not feeling well with the rash and now she has a migraine. [place] [address] S: Patient spoke rich moreno [facility] nurse regarding rash B: Onset of symptoms/concern 2 days A: Patient complaining of rash(pink dots), itching all over body, headache, nausea. Denies fever, chest pain, difficulty breathing, wheezing. COVID screen (-). R: OV scheduled for today with Thierno Pena. Back line office staff notified of appointment scheduled within the hour. Patient understands care advice. No further needs at this time. Patient instructed to call back with new or worsening symptoms. Reason for Disposition Headache Protocols used: Rash or Redness - [id number] [place] [address] Message released to patient as written. Aissatou, Your kidneys are a little better than they were in the hospital. Your TSH is too high - are you ever forgetting to take your thyroid pill? I know you called to say that your rash is worsening. Can you send in a picture? ... Written by Solomon Judd DO on 10/12/2022 9:54 PM EDT Patient's further questions if applicable: Pt was not taking medication needs a refill lost script . Pt will send picture . Pt was transferred to triage Were all questions from office addressed or relayed to the patient from encounter: no Pt dont think thyroid is what is causing issue [place] [address] I sent her a message explaining her lab results and to see if she can send pictures of what the rash looks like now. Normal [facility] AMB POC RAPID STREP AOrdered By: Prateek Andrade on 10-13-2022 Interpretation and review of laboratory results Normal [facility] S. pyogenes Ag Ql (Throat) Negative Negative, None Detected [facility] Office Visiton 10-13-2022 Follow-up visit [id number] Darin Betts 1990 F Date Provider Department Center 10/13/2022 [id number] REGULO PENA [facility] Family History Problem Relation Age of Onset Ulcerative colitis Paternal Grandfather High Blood Pressure Mother Thyroid disease Mother defects Mother Depression Mother Hypertension Mother Mental illness Mother Alcohol abuse Father Cancer Maternal Grandfather Diabetes Mother's Sister Learning disabilities Sister Vision loss Sister Miscarriages / Stillbirths Sister Stomach cancer Neg Hx Colon cancer Neg Hx Crohn's disease Neg Hx Family Status - Relation Status Age at Paternal Grandfather Mother Alive Father Alive Maternal Grandfather Mother's Sister Sister Sister Neg Hx Level of Service:45700 [place] OFFICE/OUTPATIENT ESTABLISHED LOW MDM 20-29 MIN Reason for Visit and Comments: Rash [[id number]] - Rash all over body. Started on hands. Patches on knees and elbows. Denies changes in soaps and fragrances. Seen Dr. Judd 2 days ago for this but it wasn't as bad. Did say she missed placed her thyroid medication 2 weeks ago but has never had an issue like this. States they dont itch just hurts Headache [52] - Headaches started a day later. States she is taking sumatriptan. States she took 4 pills in 2 days. Normal [facility] Progress Noteon 10-13-2022 Progress Note [facility] [address] [facility] [address] Dept: [phone] Dept Visit type: Established patient Reason for Visit: Rash (Rash all over body. Started on hands. Patches on knees and elbows. Denies changes in soaps and fragrances. Seen Dr. Judd 2 days ago for this but it [...] or fail to improve. Subjective HPI Aissatou Betts presents today with the c/c of rash [...] headaches. Negative for syncope. Allergies Allergen Reactions ? Cat Hair Extract Shortness of breath ? Droperidol Anaphylaxis and Anxiety ? Fentanyl And Related Other reaction(s): Other (See Comments) Only one kidney, dizziness ? Atorvastatin ? Bisacodyl Unknown ? Meperidine ? Sennosides Other reaction(s): Other (See Comments) Other reaction(s): GI Upset ? Ceftriaxone Hives, Rash and Unknown Current Outpatient Medications Medication Sig Dispense Refill ? cholecalciferol (Vitamin D-3) 50 MCG (1999 UT) capsule Take 1 capsule (50 mcg) by mouth daily. 30 capsule 11 ? cyanocobalamin (Vitamin B-12) 500 MCG tablet Take 1 tablet (500 mcg) by mouth daily. 30 tablet 11 ? SUMAtriptan (Imitrex) 25 MG tablet Take 1 tablet (25 mg) by mouth Once as needed for migraine for up to 1 dose. 9 tablet 2 ? cetirizine (ZyrTEC) 10 MG tablet Take 1 tablet (10 mg) by mouth daily. 30 tablet 0 ? etonogestrel-eluting 68 mg contraceptive implant Inject 68 mg under the skin. ? levothyroxine (Synthroid, Levoxyl) 150 MCG tablet Take 1 tablet (150 mcg) by mouth every morning (before breakfast). (Patient not taking: Reported on 10/13/2022) 90 tablet 1 No current facility-administered medications for this visit. Past Medical History: Diagnosis Date ? Abnormal Pap smear of cervix ? Anemia ? Anxiety ? Asthma Takes no medications ? Cancer (CMS/HCC) (HCC) Hodgkins (in remission) ? Chronic back pain ? Chronic kidney disease Enlarged right kidney, no left kidney ? Clotting disorder (CMS/HCC) (HCC) ? Deaf left ear ? Depression ? Drug abuse (CMS/HCC) (HCC) cocaine, marijuana, opiates ? Hypertension ? Infectious viral hepatitis ? Migraine ? Neck pain ? Opioid withdrawal ([facility]) 02/24/2016 ? Thyroid disease Social History Tobacco Use ? Smoking status: Every Day Packs/day: 0.50 Years: 5.00 Pack years: 2.50 Types: Cigarettes Last attempt to quit: 06/06/2022 Years since quittin.3 ? Smokeless tobacco: Never Substance Use Topics ? Alcohol use: No Past Surgical History: Procedure Laterality Date ? SECTION (HISTORICAL) 02/24/2016 ? SECTION, LOW TRANSVERSE ? COLONOSCOPY 01/15/2020 Dr. Rahman ? NECK SURGERY Left to remove cancer ? RECTAL SURGERY as a child ? UPPER GASTROINTESTINAL ENDOSCOPY 01/15/2020 Dr. Rahman Family History Problem Relation Name Age of Onset ? Ulcerative colitis Paternal Grandfather ? High Blood Pressure Mother Machelle ? Thyroid disease Mother Machelle ? defects Mother Machelle ? Depression Mother Machelle ? Hypertension Mother Machelle ? Mental illness Mother Machelle ? Alcohol abuse Father Talon ? Cancer Maternal Grandfather Al ? Diabetes Mother's Sister Marleni ? Learning disabilities Sister Rosa ? Vision loss Sister Rosa ? Miscarriages / Stillbirths Sister Trera ? Stomach cancer Neg Hx ? Colon cancer Neg Hx ? Crohn's dise (more content not included)... [facility] 36on 10-12-2022 36 Name of caller: Brandon johnson Contact phone number: [phone] Relationship to Patient: Self Provider: Dr. Judd Practice: [facility] Chief Complaint/Reason for Call: Pt states [...] get the blood work done that Dr. Judd ordered. Pt states she can come in for another appt if Dr. Judd thinks that is best. Pt states she does not want to have to go to the hospital. Please advise, thank you. Best time of day caller can be reached: any Patient advised that office/PCP has 24-48 business hours to return their call: [facility] 36on 10-11-2022 36 S: Patient called e clinical access center with complaint of hundreds of pink dots on her hands and back of neck B: Ongoing woke up today with this A: Patient c/o has bumps all over her hands and back of her neck. They are very faint pinkish red. They don't hurt or itch but she has been super tired no energy. No fever. Has not started new medication and has not changed soaps R: Appointment scheduled 10/11/[address] Judd. Insurance verified. Instructed to bring medications to OV and wear a mask. Home Care advice given. Patient instructed to call back with worsening symptoms, concerns or questions. Patient verbalized understanding. Message to the office for review by the provider and needs recommendation from Provider for treatment going forward. Reason for Disposition Patient wants to be seen Protocols used: Rash - Widespread On [id number] [facility] Office Visiton 10-11-2022 Follow-up visit [id number] Darin Betts 1990 F Date Provider Department Center 10/11/2022 [id number] JUDD [facility] Family History Problem Relation Age of Onset Ulcerative colitis Paternal Grandfather High Blood Pressure Mother Thyroid disease Mother defects Mother Depression Mother Hypertension Mother Mental illness Mother Alcohol abuse Father Cancer Maternal Grandfather Diabetes Mother's Sister Learning disabilities Sister Vision loss Sister Miscarriages / Stillbirths Sister Stomach cancer Neg Hx Colon cancer Neg Hx Crohn's disease Neg Hx Family Status - Relation Status Age at Paternal Grandfather Mother Alive Father Alive Maternal Grandfather Mother's Sister Sister Sister Neg Hx Level of Service:60066 [place] OFFICE/OUTPATIENT ESTABLISHED MOD MDM 30-39 MIN Reason for Visit and Comments: Rash [[id number]] - States needs refill on meds Normal [facility] Progress Noteon 10-11-2022 Progress Note [facility] [address] [facility] [address] [place] [address] Dept: [phone] Dept Visit type: Established patient Reason for [...] Dispense Refill cholecalciferol (Vitamin D-3) 50 MCG (1999) capsule Take 1 capsule (50 mcg) by [...] viral hepatitis Migraine Neck pain Opioid withdrawal ([facility]) 02/24/2016 Thyroid disease Social History Tobacco Use Smoking status: Every Day Packs/day: 0.50 Years: 5.00 Pack years: 2.50 Types: Cigarettes Last attempt to quit: 06/06/2022 Years since quittin.3 Smokeless tobacco: Never Substance Use Topics Alcohol use: No Past Surgical History: Procedure Laterality Date SECTION (HISTORICAL) 02/24/2016 SECTION, LOW TRANSVERSE COLONOSCOPY 01/15/2020 Dr. Rahman NECK SURGERY Left to remove cancer RECTAL SURGERY as a child UPPER GASTROINTESTINAL ENDOSCOPY 01/15/2020 Dr. Rahman Family History Problem Relation Name Age of [...] BP (!) 130/90 Pulse 65 Temp 36.7 ?C (98 ?F) (Infrared) Ht 5' 9 (1.753 m) Wt 147 lb 6.4 oz (66.9 kg) BMI 21.77 kg/m? Physical Exam Constitutional: Appearance: Normal appearance. HENT: [...] Behavior normal. Data Reviewed and Summarized Labs: Kathryn (more content not included)... Normal [facility] C. trachomatis, N. gonorhoea e RNAon 09-03-2022 (Always Message) [facility] Comment on above: The analytical perfo rmance characteristics of this assay, when used to test SurePath(TM) specimens have been determined by [employer]. The modifications have not been cleared or approved by the FDA. This assay has been validated pursuant to the CLIA regulations and is used for clinical purposes. For additional information, please refer to https://education.[employer]ady.[employer]/faq/DSY228 (This link is being provided for information/ educational purposes only.) C. trachomatis rRNA LOLITA+probe Ql (Unsp spec) Not detected NOT DETECTED [facility] N. gonorrhoeae rRNA LOLITA+probe Ql (Unsp spec) Not detected NOT DETECTED [facility] CBCon 06-23-2022 Erythrocyte distribution width (RBC) [Ratio] 13.3 % Normal 11.5 - 14.5 [facility] Comment on above: Performed By: #### C BC #### [facility] [address] [place] [address] Hematocrit (Bld) [Volume fraction] 41.7 % Normal 36.0 - 46.0 [facility] Comment on above: Performed By: #### C BC #### [facility] [address] [place] [address] Hemoglobin (Bld) [Mass/Vol] 12.2 g/dL Normal 12.0 - 16.0 [facility] Comment on above: Performed By: #### C BC #### [facility] [address] [place] [address] MCHC (RBC) [Mass/Vol] 29.3 g/dL Low 32.0 - 36.0 [facility] Comment on above: Performed By: #### C BC #### [facility] [address] [place] [address] MCV (RBC) [Entitic vol] 94 fL Normal 80 - 100 [facility] Comment on above: Performed By: #### C BC #### [facility] [address] [place] [address] NUCLEATED RBC 0.0 /100 WBC Normal 0.0-0.0 [facility] Comment on above: Performed By: #### C BC #### [facility] [address] [place] [address] Platelets (Bld) [#/Vol] 178 10*3/uL Normal 150 - 450 [facility] Comment on above: Performed By: #### C BC #### [facility] [address] [place] [address] RBC 4.44 x10E12/L Normal 4.00 - 5.20 [facility] Comment on above: Performed By: #### C BC #### [facility] [address] [place] [address] WBC (Bld) [#/Vol] 5.8 10*3/uL Normal 4.4 - 11.3 [facility] Comment on above: Performed By: #### C BC #### [facility] [address] [place] [address] CBC AND DIFFERENTIALon 06-23 % AUTOMATED IMMATURE GRAN Canceled Normal [facility] Comment on above: Order Comment: TEST CBC AND DIFFERENTIAL WAS CANCELLED, 06/23/2022 08:55 NO SPECIMEN RECEIVED IN LAB. Result Comment: Marichuy ture Granulocyte Count (IG) includes promyelocytes, myelocytes and metamyelocytes but does not include bands. Percent differential counts (%) should be interpreted in the context of the absolute cell counts (cells/L). Performed By: #### C BCDF #### [facility] [address] [place] [address], [place] [address] % BASOPHIL Canceled Normal [facility] Comment on above: Order Comment: TEST CBC AND DIFFERENTIAL WAS CANCELLED, 06/23/2022 08:55 NO SPECIMEN RECEIVED IN LAB. Performed By: #### C BCDF #### [address] [place] [address] % EOSINOPHIL Canceled Normal [facility] Comment on above: Order Comment: TEST CBC AND DIFFERENTIAL WAS CANCELLED, 06/23/2022 08:55 NO SPECIMEN RECEIVED IN LAB. Performed By: #### C BCDF #### [address] [place] [address] % LYMPHOCYTE Canceled Normal [facility] Comment on above: Order Comment: TEST CBC AND DIFFERENTIAL WAS CANCELLED, 06/23/2022 08:55 NO SPECIMEN RECEIVED IN LAB. Performed By: #### C BCDF #### [address] [place] [address] % MONOCYTE Canceled Normal [facility] Comment on above: Order Comment: TEST CBC AND DIFFERENTIAL WAS CANCELLED, 06/23/2022 08:55 NO SPECIMEN RECEIVED IN LAB. Performed By: #### C BCDF #### [address] [place] [address] % NEUTROPHIL Canceled Normal [facility] Comment on above: Order Comment: TEST CBC AND DIFFERENTIAL WAS CANCELLED, 06/23/2022 08:55 NO SPECIMEN RECEIVED IN LAB. Performed By: #### C BCDF #### [address] [place] [address] BASOPHIL Canc[address] Normal [facility] Comment on above: Order Comment: TEST CBC AND DIFFERENTIAL WAS CANCELLED, 06/23/2022 08:55 NO SPECIMEN RECEIVED IN LAB. Performed By: #### C BCDF #### [address] [place] [address] [facility] Comment on above: Order Comment: TEST CBC AND DIFFERENTIAL WAS CANCELLED, 06/23/2022 08:55 NO SPECIMEN RECEIVED IN LAB. Performed By: #### C BCDF #### [facility] [address] [address] [address]INOPH[address] Normal [facility] Comment on above: Order Comment: TEST CBC AND DIFFERENTIAL WAS CANCELLED, 06/23/2022 08:55 NO SPECIMEN RECEIVED IN LAB. Performed By: #### C BCDF #### [address] [facility] Comment on above: Order Comment: TEST CBC AND DIFFERENTIAL WAS CANCELLED, 06/23/2022 08:55 NO SPECIMEN RECEIVED IN LAB. Performed By: #### C BCDF #### [address] [address] [address] [facility] Comment on above: Order Comment: TEST CBC AND DIFFERENTIAL WAS CANCELLED, 06/23/2022 08:55 NO SPECIMEN RECEIVED IN LAB. Performed By: #### C BCDF #### [address] [address] LYMPHOCYTE Canceled Normal [facility] Comment on above: Order Comment: TEST CBC AND DIFFERENTIAL WAS CANCELLED, 06/23/2022 08:55 NO SPECIMEN RECEIVED IN LAB. Performed By: #### C BCDF #### [address] [address] [address]CHC [address] Normal [facility] Comment on above: Order Comment: TEST CBC AND DIFFERENTIAL WAS CANCELLED, 06/23/2022 08:55 NO SPECIMEN RECEIVED IN LAB. Performed By: #### C BCDF #### [address] [address] [address] [facility] Comment on above: Order Comment: TEST CBC AND DIFFERENTIAL WAS CANCELLED, 06/23/2022 08:55 NO SPECIMEN RECEIVED IN LAB. Performed By: #### C BCDF #### [address] [address] MONOCYTE Canceled Normal [facility] Comment on above: Order Comment: TEST CBC AND DIFFERENTIAL WAS CANCELLED, 06/23/2022 08:55 NO SPECIMEN RECEIVED IN LAB. Performed By: #### C BCDF #### [address] [place] [address] NEUTROPHIL Canceled Normal [facility] Comment on above: Order Comment: TEST CBC AND DIFFERENTIAL WAS CANCELLED, 06/23/2022 08:55 NO SPECIMEN RECEIVED IN LAB. Performed By: #### C BCDF #### [address] [address] NUCLEATED RBC Canceled Normal [facility] Comment on above: Order Comment: TEST CBC AND DIFFERENTIAL WAS CANCELLED, 06/23/2022 08:55 NO SPECIMEN RECEIVED IN LAB. Performed By: #### C BCDF #### [address] [address] [facility] Comment on above: Order Comment: TEST CBC AND DIFFERENTIAL WAS CANCELLED, 06/23/2022 08:55 NO SPECIMEN RECEIVED IN LAB. Performed By: #### C BCDF #### [address] [facility] Comment on above: Order Comment: TEST CBC AND DIFFERENTIAL WAS CANCELLED, 06/23/2022 08:55 NO SPECIMEN RECEIVED IN LAB. Performed By: #### C BCDF #### [address] [address] RDW-CV Canceled Normal [facility] Comment on above: Order Comment: TEST CBC AND DIFFERENTIAL WAS CANCELLED, 06/23/2022 08:55 NO SPECIMEN RECEIVED IN LAB. Performed By: #### C BCDF #### [address] [address] [facility] Comment on above: Order Comment: TEST CBC AND DIFFERENTIAL WAS CANCELLED, 06/23/2022 08:55 NO SPECIMEN RECEIVED IN LAB. Performed By: #### C BCDF #### [address] [address] COMPREHENSIVE PANELon [address] [facility] Comment on above: Order Comment: TEST COMPREHENSIVE PANEL WAS CANCELLED, 06/23/2022 14:20 delivery delay unspun. Performed By: #### C MP #### [facility] [address] [place] [address] ALKALINE PHOSPHATASE Canceled Normal [facility] Comment on above: Order Comment: TEST COMPREHENSIVE PANEL WAS CANCELLED, 06/23/2022 14:20 delivery delay unspun. Performed By: #### C MP #### [facility] [address] [place] [address] [facility] Comment on above: Order Comment: TEST COMPREHENSIVE PANEL WAS CANCELLED, 06/23/2022 14:20 delivery delay unspun. Result Comment: Tash ents treated with Sulfasalazine may generate falsely decreased results for ALT. Performed By: #### C MP #### [facility] [address] [place] [address] ANION GAP Canceled Normal [facility] Comment on above: Order Comment: TEST COMPREHENSIVE PANEL WAS CANCELLED, 06/23/2022 14:20 delivery delay unspun. Performed By: #### C MP #### [facility] [address] [place] [address] [facility] Comment on above: Order Comment: TEST COMPREHENSIVE PANEL WAS CANCELLED, 06/23/2022 14:20 delivery delay unspun. Performed By: #### C MP #### [facility] [address] [place] [address] BICARBONATE Canceled Normal [facility] Comment on above: Order Comment: TEST COMPREHENSIVE PANEL WAS CANCELLED, 06/23/2022 14:20 delivery delay unspun. Performed By: #### C MP #### [facility] [address] [place] [address] BILIRUBIN,TOTAL Canceled Normal [facility] Comment on above: Order Comment: TEST COMPREHENSIVE PANEL WAS CANCELLED, 06/23/2022 14:20 delivery delay unspun. Performed By: #### C MP #### [facility] [address] [place] [address] [address] [facility] Comment on above: Order Comment: TEST COMPREHENSIVE PANEL WAS CANCELLED, 06/23/2022 14:20 delivery delay unspun. Performed By: #### C MP #### [facility] [address] [place] [address] [facility] Comment on above: Order Comment: TEST COMPREHENSIVE PANEL WAS CANCELLED, 06/23/2022 14:20 delivery delay unspun. Performed By: #### C MP #### [facility] [address] [place] [address] [address] Normal [facility] Comment on above: Order Comment: TEST COMPREHENSIVE PANEL WAS CANCELLED, 06/23/2022 14:20 delivery delay unspun. Performed By: #### C MP #### [facility] [address] [place] [address] eGFR FEMALE Canceled Normal [facility] Comment on above: Order Comment: TEST COMPREHENSIVE PANEL WAS CANCELLED, 06/23/2022 14:20 delivery delay unspun. Result Comment: CALC ULATIONS OF ESTIMATED GFR ARE PERFORMED USING THE 2020 CKD-EPI STUDY REFIT EQUATION WITHOUT THE RACE VARIABLE FOR THE IDMS-TRACEABLE CREATININE METHODS. https://jasn.asnjournals.org/content/early/ASN.2020 183186 Performed By: #### C MP #### [facility] [address] [place] [address] eGFR MALE Canceled Normal [facility] Comment on above: Order Comment: TEST COMPREHENSIVE PANEL WAS CANCELLED, 06/23/2022 14:20 delivery delay unspun. Result Comment: CALC ULATIONS OF ESTIMATED GFR ARE PERFORMED USING THE 2020 CKD-EPI STUDY REFIT EQUATION WITHOUT THE RACE VARIABLE FOR THE IDMS-TRACEABLE CREATININE METHODS. https://jasn.asnjournals.org/content/early/ASN.2020 737368 Performed By: #### C MP #### [facility] [address] [place] [address] [facility] Comment on above: Order Comment: TEST COMPREHENSIVE PANEL WAS CANCELLED, 06/23/2022 14:20 delivery delay unspun. Performed By: #### C MP #### [facility] [address] [place] [address] POTASSI[address] Canc[address] Normal [facility] Comment on above: Order Comment: TEST COMPREHENSIVE PANEL WAS CANCELLED, 06/23/2022 14:20 delivery delay unspun. Performed By: #### C MP #### [facility] [address] [place] [address] [address] [facility] Comment on above: Order Comment: TEST COMPREHENSIVE PANEL WAS CANCELLED, 06/23/2022 14:20 delivery delay unspun. Performed By: #### C MP #### [facility] [address] [place] [address] TOTAL PROTEIN Canceled Normal [facility] Comment on above: Order Comment: TEST COMPREHENSIVE PANEL WAS CANCELLED, 06/23/2022 14:20 delivery delay unspun. Performed By: #### C MP #### [facility] [address] [place] [address] UREA NITROGEN Canceled Normal [facility] Comment on above: Order Comment: TEST COMPREHENSIVE PANEL WAS CANCELLED, 06/23/2022 14:20 delivery delay unspun. Performed By: #### C MP #### [facility] [address] [place] [address] ALBUMIN C[address] Normal [facility] Comment on above: Order Comment: TEST COMPREHENSIVE PANEL WAS CANCELLED, 06/23/2022 08:56 NO SPECIMEN RECEIVED IN LAB. Performed By: #### C MP #### [address] [address] ALKALINE PHOSPHATASE Canceled Normal [facility] Comment on above: Order Comment: TEST COMPREHENSIVE PANEL WAS CANCELLED, 06/23/2022 08:56 NO SPECIMEN RECEIVED IN LAB. Performed By: #### C MP #### [address] [facility] Comment on above: Order Comment: TEST COMPREHENSIVE PANEL WAS CANCELLED, 06/23/2022 08:56 NO SPECIMEN RECEIVED IN LAB. Result Comment: Tash ents treated with Sulfasalazine may generate falsely decreased results for ALT. Performed By: #### C MP #### [address] [place] [address] ANION GAP Canceled Normal [facility] Comment on above: Order Comment: TEST COMPREHENSIVE PANEL WAS CANCELLED, 06/23/2022 08:56 NO SPECIMEN RECEIVED IN LAB. Performed By: #### C MP #### [address] [place] [address] [facility] Comment on above: Order Comment: TEST COMPREHENSIVE PANEL WAS CANCELLED, 06/23/2022 08:56 NO SPECIMEN RECEIVED IN LAB. Performed By: #### C MP #### [address] [place] [address] BICARBONATE Canceled Normal [facility] Comment on above: Order Comment: TEST COMPREHENSIVE PANEL WAS CANCELLED, 06/23/2022 08:56 NO SPECIMEN RECEIVED IN LAB. Performed By: #### C MP #### [address] [place] [address] BILIRUBIN,TOTAL Canceled Normal [facility] Comment on above: Order Comment: TEST COMPREHENSIVE PANEL WAS CANCELLED, 06/23/2022 08:56 NO SPECIMEN RECEIVED IN LAB. Performed By: #### C MP #### [address] [place] [address] CALCIUM Canceled Normal [facility] Comment on above: Order Comment: TEST COMPREHENSIVE PANEL WAS CANCELLED, 06/23/2022 08:56 NO SPECIMEN RECEIVED IN LAB. Performed By: #### C MP #### [address] [place] [address] [address] Normal [facility] Comment on above: Order Comment: TEST COMPREHENSIVE PANEL WAS CANCELLED, 06/23/2022 08:56 NO SPECIMEN RECEIVED IN LAB. Performed By: #### C MP #### [address] [place] [address] CREATININE Canc[address] Normal [facility] Comment on above: Order Comment: TEST COMPREHENSIVE PANEL WAS CANCELLED, 06/23/2022 08:56 NO SPECIMEN RECEIVED IN LAB. Performed By: #### C MP #### [address] [place] [address] eGFR FEMALE Canceled Normal [facility] Comment on above: Order Comment: TEST COMPREHENSIVE PANEL WAS CANCELLED, 06/23/2022 08:56 NO SPECIMEN RECEIVED IN LAB. Result Comment: CALC ULATIONS OF ESTIMATED GFR ARE PERFORMED USING THE 2020 CKD-EPI STUDY REFIT EQUATION WITHOUT THE RACE VARIABLE FOR THE IDMS-TRACEABLE CREATININE METHODS. https://jasn.asnjournals.org/content/earlyASN.2020 617455 Performed By: #### C MP #### [address] [address] eGFR MALE Canceled Normal [facility] Comment on above: Order Comment: TEST COMPREHENSIVE PANEL WAS CANCELLED, 06/23/2022 08:56 NO SPECIMEN RECEIVED IN LAB. Result Comment: CALC ULATIONS OF ESTIMATED GFR ARE PERFORMED USING THE 2020 CKD-EPI STUDY REFIT EQUATION WITHOUT THE RACE VARIABLE FOR THE IDMS-TRACEABLE CREATININE METHODS. https://jasn.asnjournals.org/content/earlyASN.2020 055526 Performed By: #### C MP #### [address] [address] [address] Normal [facility] Comment on above: Order Comment: TEST COMPREHENSIVE PANEL WAS CANCELLED, 06/23/2022 08:56 NO SPECIMEN RECEIVED IN LAB. Performed By: #### C MP #### [address] [address] POTASSIUM Canceled Normal [facility] Comment on above: Order Comment: TEST COMPREHENSIVE PANEL WAS CANCELLED, 06/23/2022 08:56 NO SPECIMEN RECEIVED IN LAB. Performed By: #### C MP #### [address] [address] [address] [facility] Comment on above: Order Comment: TEST COMPREHENSIVE PANEL WAS CANCELLED, 06/23/2022 08:56 NO SPECIMEN RECEIVED IN LAB. Performed By: #### C MP #### [address] [place] [address] TOTAL PROTEIN Canceled Normal [facility] Comment on above: Order Comment: TEST COMPREHENSIVE PANEL WAS CANCELLED, 06/23/2022 08:56 NO SPECIMEN RECEIVED IN LAB. Performed By: #### C MP #### [address] [address] UREA NITROGEN Canceled Normal [facility] Comment on above: Order Comment: TEST COMPREHENSIVE PANEL WAS CANCELLED, 06/23/2022 08:56 NO SPECIMEN RECEIVED IN LAB. Performed By: #### C MP #### [address] [address] INFLUENZA A/B, COVID 2019 PC R,SYMPTOMATICon 06-23-2022 INFLUENZA A, PCR Not detected Normal Not Detected [facility] Comment on above: Result Comment: Resp iratory virus testing is performed routinely by PCR for Influenza A/B and RSV. If Influenza and RSV PCR are negative, testing for parainfluenza 1,2,3 viruses and adenovirus is routinely performed for oncology inpatients and intensive care unit patients at [facility] and is available on request on other patients by calling Laboratory Client Services at [phone]. Not Detected results do not preclude Influenza A/B or RSV infections since the adequacy of sample collection or low viral burden may impact the clinical sensitivity of this test method. Performed By: #### C OINP #### [facility] [address] [place] [address] INFLUENZA B, PCR Not detected Normal Not Detected [facility] Comment on above: Result Comment: Resp iratory virus testing is performed routinely by PCR for Influenza A/B and RSV. If Influenza and RSV PCR are negative, testing for parainfluenza 1,2,3 viruses and adenovirus is routinely performed for oncology inpatients and intensive care unit patients at [facility] and is available on request on other patients by calling Laboratory Client Services at [phone] Not Detected results do not preclude Influenza A/B or RSV infections since the adequacy of sample collection or low viral burden may impact the clinical sensitivity of this test method. Performed By: #### C OINP #### [facility] [address] [place] [address] SARS-CoV-2 (COVID-19) RNA LOLITA+probe Ql (Unsp spec) Not detected Normal Not Detected [facility] Comment on above: Result Comment: . This assay is designed to detect the ORF1a/b and E genes of SARS-CoV-2 via nucleic acid amplification. A Not Detected result does not preclude 2019-nCoV infection since the adequacy of sample collection and/or low viral burden may result in presence of viral nucleic acids below the clinical sensitivity of this test method. Fact sheet for providers: https://www.fda.gov/media/407268/download Fact sheet for patients: https://www.fda.gov/media/785977/download This test has received FDA Emergency Use Authorization (EUA) and has been verified for use by [facility] ([facility]). This test is only authorized for the duration of time that circumstances exist to justify the authorization of the emergency use of in vitro diagnostic tests for the detection of SARS-CoV-2 virus and/or diagnosis of COVID-19 infection under section 564(b)(1) of the Act, 21 U.S.C. 360bbb-3(b)(1), unless the authorization is terminated or revoked sooner. [facility] is certified under CLIA-88 as qualified to perform high complexity testing. Testing is performed in the [facility] laboratories located at [address] [place] [address]. Performed By: #### C OINELSON #### [address] [place] [address] Blood Pressure Cuff Sizeon 1 08-23-2021 Blood Pressure Cuff Size Adult [facility] Work Phone: Complete Blood Count + Diffe rentialon 06-22-2022 Hematocrit (Bld) [Volume fraction] Canceled [facility] Work Phone: [phone] Hemoglobin (Bld) [Mass/Vol] Canceled [facility] Work Phone: Platelets (Bld) [#/Vol] Canceled M [facility] Work Phone: RBC (Bld) [#/Vol] Canceled [facility] Work Phone: Complete Blood Count + Differential Canceled [facility] Work Phone: Comment on above: CALCULATIONS OF REED MATED GFR ARE PERFORMED USING THE 2020 CKD-EPI STUDY REFIT EQUATION WITHOUT THE RACE VARIABLE FOR THE IDMS-TRACEABLE CREATININE METHODS.https://jasn.asnjournals.org/content/early/ ASN.3188337334 Immature Granulocyte Count (IG) includes promyelocytes, myelocytes and metamyelocytes but does not include bands. Percent differential counts (%) should be interpreted in the context of the absolute cell counts (cells/L). INFLUENZA A/B, COVID 2019 PC R,SYMPTOMATICon 06-22-2022 Lab Specimen Source Nasal, Nasopharyngeal Normal [facility] Comment on above: Performed By: #### C OINP #### [facility] [address] [place] [address] INFLUENZA A/B, COVID 2019 PCR,SYMPTOMATIC Not detected See Below [facility] Work Phone: Comment on above: Reference Range: Not Detected.This assay is designed to detect the ORF1a/b and E genes of SARS-CoV-2 via nucleic acid amplification. A Not Detected result does not preclude 2019-nCoV infection since the adequacy of sample collection and/or low viral burden may result in presence of viral nucleic acids below the clinical sensitivity of this test method. Fact sheet for providers: https://www.fda.gov/media/997378/download Fact sheet for patients: https://www.fda.gov/media/273045/download This test has received FDA Emergency Use Authorization (EUA) and has been verified for use by [facility] ([facility]). This test is only authorized for the duration of time that circumstances exist to justify the authorization of the emergency use of in vitro diagnostic tests for the detection of SARS-CoV-2 virus and/or diagnosis of COVID-19 infection under section 564(b)(1) of the Act, 21 U.S.C. 360bbb-3(b)(1), unless the authorization is terminated or revoked sooner.[facility] is certified under CLIA-88 as qualified to perform high complexity testing. Testing is performed in the [facility] laboratories located at [address] [place] [address]. Reference Range: Not Detected Respiratory virus testing is performed routinely by PCR for Influenza A/B and RSV. If Influenza and RSV PCR are negative, testing for parainfluenza 1,2,3 viruses and adenovirus is routinely performed for oncology inpatients and intensive care unit patients at [facility] and is available on request on other patients by calling Laboratory Client Services at [phone] Not Detected results do not preclude Influenza A/B or RSV infections since the adequacy of sample collection or low viral burden may impact the clinical sensitivity of this test method. SOURCE: Nasal, Nasop haryngealReference Range: Not Detected Respiratory virus testing is performed routinely by PCR for Influenza A/B and RSV. If Influenza and RSV PCR are negative, testing for parainfluenza 1,2,3 viruses and adenovirus is routinely performed for oncology inpatients and intensive care unit patients at [facility] and is available on request on other patients by calling Laboratory Client Services at [phone]. Not Detected results do not preclude Influenza A/B or RSV infections since the adequacy of sample collection or low viral burden may impact the clinical sensitivity of this test method. IO Rapid Influenzaon 022 IO Rapid Influenza Negative [facility] Work Phone: Laboratory - Chemistry and C hemistry - challengeon 06-22-2022 Albumin BCP dye [Mass/Vol] Canceled [facility] Work Phone: ALP [Catalytic activity/Vol] Canceled [facility] Work Phone: ALT With P-5'-P [Catalytic activity/Vol] Canceled [facility] Work Phone: Comment on above: Patients treated wit h Sulfasalazine may generate falsely decreased results for ALT. AST With P-5'-P [Catalytic activity/Vol] Canceled [facility] Work Phone: Bilirubin [Mass/Vol] Canceled [facility] Work Phone: Calcium [Mass/Vol] Canceled [facility] Work Phone: Chloride [Moles/Vol] Canceled [facility] Work Phone: CO2 [Moles/Vol] Canceled [facility] Work Phone: Creatinine [Mass/Vol] Canceled [facility] Work Phone: Glucose [Mass/Vol] Canceled [facility] Work Phone: Potassium [Moles/Vol] Canceled [facility] Work Phone: [phone] Protein [Mass/Vol] Canceled [facility] [facility] Work Phone: Sodium [Moles/Vol] Canceled [facility] Work Phone: Urea nitrogen [Mass/Vol] Canceled [facility] Work Phone: Laboratory - Hematology and Cell countson 06-22-2022 Erythrocyte distribution width (RBC) [Ratio] 13.3 % See Below [facility] Work Phone: Comment on above: Reference Range: 11. 5 - 14.5 Hematocrit (Bld) [Volume fraction] 41.7 % See Below [facility] Work Phone: Comment on above: Reference Range: 36. 0 - 46.0 Hemoglobin (Bld) [Mass/Vol] 12.2 g/dL See Below [facility] Work Phone: Comment on above: Reference Range: 12. 0 - 16.0 MCHC (RBC) [Mass/Vol] 29.3 g/dL below low threshold See Below [facility] Work Phone: Comment on above: Reference Range: 32. 0 - 36.0 MCV (RBC) [Entitic vol] 94 fL 80 - 100 [facility] Work Phone: Platelets (Bld) [#/Vol] 178 10*3/uL 150 - 450 [facility] Work Phone: RBC (Bld) [#/Vol] 4.44 {x10E12/L} See Below [facility] Work Phone: Comment on above: Reference Range: 4.0 0 - 5.20 WBC (Bld) [#/Vol] 5.8 10*3/uL 4.4 - 11.3 [facility] Work Phone: No Panel Informationon 06-22 0.0 {/100_WBC} 0.0-0.0 [facility] Work Phone: Office Visit (Urgent Care)on 06-22-2022 Follow-up visit Diagnoses/Problems Assessed Headache, acute (784.0) (R51.9) Nausea and/or vomiting (787.01) (R11.2) History of Hodgkin's lymphoma (V10.72) (Z85.71) Orders Headache, acute, History of Hodgkin's lymphoma, Nausea and/or vomiting Complete Blood Count + Differential; Status:In Progress - Specimen/Data Collected; Done: 22Jun2022 Perform:Lab Services - Lab To Draw (Blood Test); Due:20Sep2022;Ordered; For:Headache, acute, History of Hodgkin's lymphoma, Nausea and/or vomiting; Ordered By:Albania Nuñez; Headache, acute, Nausea and/or vomiting Start: Ondansetron 4 MG Oral Tablet Disintegrating; TAKE 1 TABLET Every 8 hours PRN Nausea Rx By: Albania Nuñez; Dispense: 10 Days ; #:1 X 30 Tablet Bottle; Refill: 0;For: Headache, acute, Nausea and/or vomiting; TSERING = N; Verified Transmission to [id number]; Last Updated By: [employer]; 06/22/2022 4:25:24 PM INFLUENZA A/B, COVID 2019 PCR,SYMPTOMATIC; Status:Active; Requested for:22Jun2022; Perform:Lab Services - Lab To Draw (Non-Blood Test); Due:20Sep2022;Ordered; For:Headache, acute, Nausea and/or vomiting; Ordered By:Albania Nuñez; Administered: Ketorolac Tromethamine 60 MG/2ML Intramuscular Solution Rx By: Albania Nuñez;For: Headache, acute, Nausea and/or vomiting; Dose of 2 ML; Intramuscular; TSERING = N; Administered by: Talib PerkinsP.N.: 06/22/2022 4:58:00 PM Administered: Ondansetron HCl - 4 MG/2ML Injection Solution Rx By: Albania Nuñez;For: Headache, acute, Nausea and/or vomiting; Dose of 2 ML; Intramuscular; TSERING = N; Administered by: Talib Perkins L.P.N.: 06/22/2022 4:58:00 PM History of Hodgkin's lymphoma, Nausea and/or vomiting Comprehensive Metabolic Panel; Status:In Progress - Specimen/Data Collected; Done: 22Jun2022 Perform:Lab Services - Lab To Draw (Blood Test); Due:20Sep2022;Ordered; For:History of Hodgkin's lymphoma, Nausea and/or vomiting; Ordered By:Albania Nuñez; Nausea and/or vomiting IO Rapid Influenza; Status:Complete; Done: 22Jun2022 04:08PM Performed:In Office; Due:20Sep2022;Ordered; For:Nausea and/or vomiting; Ordered By:Albania Nuñez; Patient Discussion/Summary UPPER RESPIRATORY INFECTION - In office rapid flu testing was performed with negative results - COVID-19 and flu PCR testing performed in office today, your results can take 24-72 hours to come back - Bloodwork was ordered including CBC and CMP for further evaluation - In office ONDANSETRON and KETOROLAC injections were provided for more rapid headache and nausea relief - ONDANSETRON sublingual (under the tongue) dissolving tablets were prescribed for nausea relief - Use Ibuprofen (Advil) or Acetaminophen (Tylenol) at home for headache and fever reduction if needed - Increase rest and fluids to recover sooner and loosen mucus - Warm and cold liquids such as tea, broth-based soup, or popsicles can help temporarily relieve pain in throat - May use a humidifier, cough drops, saline nasal wash (Neti pot) for symptom relief - Avoid cigarette smoke and do not vape as this will continue to irritate airway (may use nicotine gum or patches if nicotine dependent) - While you are awaiting COVID-19 test results, you are to self-quarantine in your home. Use a separate room and restroom if possible. Wear a mask, gloves when possible and stay six feet from others in your home. You may search the CDC website for official guidelines on proper self-quarantining procedures. Only leave the home if there is worsening shortness of breath, chest pain, or continued fever that cannot be controlled (or any other new/concerning symptoms), in which case you should call or report to your local ER. If you cannot safely get to the ER by private vehicle, please call 911 if needed. Red flags for strict return precaution have been reviewed with the patient. Current diagnosis, any medication changes, and all in-office lab or radiologic results have been reviewed with the patient at the time of the visit. If symptoms do not improve or worsen, patient is to follow up with PCP or report to the emergency room. Patient is alert and oriented x3 and non-toxic appearing. Vital signs are stable. Patient and/or guardian has sufficient decision-making capabilities at this time and agrees with the treatment plan made through shared decision-making. Chief Complaint nausea/vomiting, headache History of Present Illness Patient presents with nausea, vomiting, headache, weakness, [...] COVID last year. Patient denies cough, nasal con (more content not included)... Normal [employer] UA DIP, URINE (POC)on 2021 BILIRUBIN UA (POCT) Negative Negative [facility] CLARITY UA (POCT) Clear [place] COLOR UA (POCT) Yellow [facility] GLUCOSE UA (POCT) Negative Negative mg/dL [facility] HEMOGLOBIN/BLOOD UA (POCT) Trace-intact Abnormal Negative [facility] KETONE UA (POCT) Negative Negative mg/dL [facility] LEUKOCYTES UA (POCT) [facility] NITRITE UA (POCT) Negative Negative [place] PH UA (POCT) 6.5 4.5 - 8.0 [facility] Protein Ql (U) 100 mg/dL Abnormal Negative mg/dL [facility] SPECIFIC GRAVITY UA (POCT) >=1.030 1.005 - 1.030 [facility] UROBILINOGEN UA (POCT) 0.2 E.U./dL Siria l E.U./dL [facility] Absolute lymphocyte counton 10-24-2021 Lymphocytes Auto (Unsp spec) [#/Vol] 2.27 10*3/uL 0.83-4.51 [facility] Work Phone: Basophil percentageon 2021 Basophils/100 WBC (Bld) 0.4 % 0-1 [facility] Work Phone: Bilirubin [Mass/Vol] 0.30 mg/dL 0.20-1.00 [facility] Work Phone: Comment on above: For patients on eltr ombopag therapy, use of Dimension [place] TBIL is not recommended. Chloride [Moles/Vol] 110 mmol/L 98-107 [facility] Work Phone: Eosinophils/100 WBC (Bld) 1.7 % 0-5 [facility] Work Phone: Glucose [Mass/Vol] 101 mg/dL 74-106 [facility] Work Phone: Comment on above: Fasting Glucose resu lt from 100 to 125 mg/dL suggests IMPAIRED HOMEOSTASIS per A.D.A. criteria. Neutrophils (Bld) [#/Vol] 4.4 10*3/uL 2.0-7.7 [facility] Work Phone: Neutrophils/100 WBC (Bld) 61.3 % 47-70 [facility] Work Phone: Potassium [Moles/Vol] 3.3 mmol/L 3.5-5.1 [facility] Work Phone: Protein [Mass/Vol] 6.8 g/dL 6.4-8.2 [facility] Work Phone: Sodium [Moles/Vol] 140 mmol/L 136-145 [facility] Work Phone: WBC (Bld) [#/Vol] 7.2 10*3/uL 4.4-11.0 [facility] Work Phone: Blood erythrocytes count (nu mber/volume)on 10-24-2021 RBC (Bld) [#/Vol] 3.44 10*6/uL 4.2-5.4 [facility]: Blood hemoglobin measurement (mass/volume)on 10-24-2021 Hemoglobin (Bld) [Mass/Vol] 9.4 g/dL 12.0-15.0 [facility] Work Phone: Blood lymphocytes/100 leukoc yteson 10-24-2021 Lymphocytes/100 WBC (Bld) 31.7 % 19-41 [facility] Work Phone: Blood monocytes/100 leukocyt eson 10-24-2021 Monocytes/100 WBC (Bld) 4.5 % 0-10 [facility] Work Phone: Blood platelet mean volumeon 10-24-2021 Platelet mean volume (Bld) [Entitic vol] 10.5 fL 6.2-12.0 [facility] Work Phone: Determination of erythrocyte mean corpuscular volume (MCV)on 10-24-2021 MCV (RBC) [Entitic vol] 87.8 fL 81-99 [facility] Work Phone: Hematocrit Auto (Bld) [Volum e fraction]on 10-24-2021 Hematocrit (Bld) [Volume fraction] 30.2 % 37-47 [facility] Work Phone: Laboratory - Chemistry and C hemistry - challengeon 10-24-2021 ALP [Catalytic activity/Vol] 46 U/L 45-117 [facility] Work Phone: ALT [Catalytic activity/Vol] 13 U/L 13-56 [facility] Work Phone: CO2 [Moles/Vol] 23.0 mmol/L 21.0-32.0 [facility] Work Phone: Globulin (S) [Mass/Vol] 4.3 g/dL 2.2-4.2 [facility] Work Phone: Urea nitrogen/Creatinine [Mass ratio] 15.2 mg/mg 10-20 [facility] Work Phone: Laboratory - Hematology and Cell countson 10-24-2021 Erythrocyte distribution width (RBC) [Entitic vol] 43.5 fL 35.1-43.9 [facility] Work Phone: Erythrocyte distribution width (RBC) [Ratio] 13.5 % 11.6-14.6 [facility] Work Phone: Immature granulocytes/100 WBC (Bld) 0.400 % 0.0-0.9 [facility] Work Phone: Comment on above: IG% - Immature Granu locytes (promyelocytes, myelocytes and metamyelocytes) > 1% indicates that a LEFT SHIFT is Present. MCH (RBC) [Entitic mass] 27.3 pg 27.0-32.0 [facility] Work Phone: Nucleated RBC/100 WBC (Bld) [Ratio] 0 % 0-5 [facility] Work Phone: MCHC Auto (RBC) [Mass/Vol]on 10-24-2021 MCHC (RBC) [Mass/Vol] 31.1 g/dL 32-36 [facility] Work Phone: No Panel Informationon 10-24 Estimated Creatinine Clearance Calc 33.59 ml/min [facility] Work Phone: Estimated GFR (MDRD) Amer 39 mL/min >60 [facility] Work Phone: Comment on above: GFR Calc Estimated GFR (MDRD) Non-Af Amer 33 mL/min >60 [facility] Work Phone: Comment on above: Non- GFR Calc Platelets bldon 10-24-2021 Platelets (Bld) [#/Vol] 226 10*3/uL 150-450 [facility] Work Phone: Serum or plasma albumin brittney urement (mass/volume)on 10-24-2021 Albumin [Mass/Vol] 2.5 g/dL 3.2-5.0 [facility] Work Phone: Serum or plasma albumin/glob ulin mass ratioon 10-24-2021 Albumin/Globulin [Mass ratio] 0.6 {ratio} 0.9-2.4 [facility] Work Phone: Serum or plasma calcium brittney urement (mass/volume)on 10-24-2021 Calcium [Mass/Vol] 8.5 mg/dL 8.5-10.1 [facility] Work Phone: Serum or plasma creatinine m easurement (mass/volume)on 10-24-2021 Creatinine [Mass/Vol] 1.91 mg/dL 0.55-1.02 [facility] Work Phone: Comment on above: The validity of the calculated GFR & GFRAA in patients over 70 years has not been determined. Clinical correlation is essential. Serum or plasma urea nitroge n measurement (mass/volume)on 10-24-2021 Urea nitrogen [Mass/Vol] 29 mg/dL 7-18 [facility] Work Phone: Thin prep Papanicolaou smear with manual screeningon 10-24-2021 Thin prep Papanicolaou smear with manual screening 11 U/L 15-37 [facility] Work Phone: Thin prep Papanicolaou smear with manual screening 7 5-15 [facility] Work Phone: Basophil percentageon 2021 Basophil percentage >100 SEEN /hpf [facility] Work Phone: Bilirubin Test strip Ql (U)o n 10-23-2021 Bilirubin Ql (U) Negative Negative [facility] Work Phone: Culture, urineon 10-23-2021 Bacteria identified Cx Nom (U) Escherichia coli [facility] Work Phone: Ketones Test strip Ql (U)on 10-23-2021 Ketones Ql (U) Negative Negative [facility] Work Phone: Mucus LM Ql (Urine sed)on Mucus Ql (Urine sed) 0 SEEN /hpf [facility] Work Phone: Nitrite Test strip Ql (U)on 10-23-2021 Nitrite Ql (U) Negative Negative [facility] Work Phone: Protein Test strip Ql (U)on 10-23-2021 Protein Ql (U) 100 mg/dl Negative [facility] Work Phone: Squamous epithelial cells de tection in urine sediment by light microscopyon 10-23-2021 Epithelial cells.squamous LM Ql (Urine sed) 0-5 SEEN /hpf [facility] Work Phone: Urine blood detectionon - RBC Ql (U) 50 /ul Negative [facility] Work Phone: RBC Ql (U) 0-5 SEEN /hpf [facility] Work Phone: Urine clarityon 10-23-2021 Clarity (U) Turbid Clear [facility] Work Phone: Urine color determinationon 10-23-2021 Color (U) Yellow Yellow [facility] Work Phone: Urine glucose detectionon Glucose Ql (U) Normal mg/dl Normal [facility] Work Phone: Urine leukocyte esterase det ection by dipstickon 10-23-2021 Leukocyte esterase Test strip Ql (U) 500 /ul Negative [facility] Work Phone: Urine pHon 10-23-2021 pH (U) 6.0 [pH] [facility] Work Phone: Urine sediment bacteria coun t by microscopy (number/high power field)on 10-23-2021 Bacteria LM.HPF (Urine sed) [#/Area] 4 /[HPF] None Seen [facility] Work Phone: [phone] Urine specific gravity measu rementon 10-23-2021 Specific gravity (U) [Rel density] 1.015 [facility] Work Phone: Urobilinogen Auto test strip Ql (U)on 10-23-2021 Urobilinogen Ql (U) Normal mg/dl Normal [facility] Work Phone: Absolute lymphocyte counton 10-21-2021 Lymphocytes Auto (Unsp spec) [#/Vol] 1.82 10*3/uL 0.83-4.51 [facility] Work Phone: Basophil percentageon 2021 Basophils/100 WBC (Bld) 0.5 % 0-1 [facility] Work Phone: Eosinophils/100 WBC (Bld) 2.6 % 0-5 [facility] Work Phone: [phone] Neutrophils (Bld) [#/Vol] 3.6 10*3/uL 2.0-7.7 [facility] Work Phone: [phone] Neutrophils/100 WBC (Bld) 60.0 % 47-70 [facility] Work Phone: WBC (Bld) [#/Vol] 6.0 10*3/uL 4.4-11.0 [facility] Work Phone: Beta hCG serum qualon 2021 Beta HCG ( test) Ql Negative [facility] Work Phone: Blood erythrocytes count (nu mber/volume)on 10-21-2021 RBC (Bld) [#/Vol] 4.15 10*6/uL 4.2-5.4 [facility] Work Phone: Blood hemoglobin measurement (mass/volume)on 10-21-2021 Hemoglobin (Bld) [Mass/Vol] 11.5 g/dL 12.0-15.0 [facility] Work Phone: Blood lymphocytes/100 leukoc yteson 10-21-2021 Lymphocytes/100 WBC (Bld) 30.1 % 19-41 [facility] Work Phone: Blood monocytes/100 leukocyt eson 10-21-2021 Monocytes/100 WBC (Bld) 6.5 % 0-10 [facility] Work Phone: Blood platelet mean volumeon 10-21-2021 Platelet mean volume (Bld) [Entitic vol] 10.1 fL 6.2-12.0 [facility] Work Phone: Determination of erythrocyte mean corpuscular volume (MCV)on 10-21-2021 MCV (RBC) [Entitic vol] 85.3 fL 81-99 [facility] Work Phone: HIV 1 and HIV-2 antibody ass ay with HIV-1 p24 antigen detectionon 10-21-2021 HIV 1+2 Ab+HIV1 p24 Ag IA Ql Non-Reactive Nonreactive [facility] Work Phone: Hematocrit Auto (Bld) [Volum e fraction]on 10-21-2021 Hematocrit (Bld) [Volume fraction] 35.4 % 37-47 [facility] Work Phone: Laboratory - Chemistry and C hemistry - challengeon 10-21-2021 Free T4 [Mass/Vol] 1.02 ng/dL 0.76-1.46 [facility] Work Phone: Laboratory - Drug toxicology on 10-21-2021 Amphetamines Ql (U) Positive [facility] Work Phone: Benzodiazepines Ql (U) Negative [facility] Work Phone: Cannabinoids Screen Ql (U) Negative [facility] Work Phone: Cocaine Ql (U) Positive [facility] Work Phone: Opiates Ql (U) Negative [facility] Work Phone: Laboratory - Hematology and Cell countson 04-28-2022 Erythrocyte distribution width (RBC) [Entitic vol] 42.3 fL 35.1-43.9 [facility] Work Phone: Erythrocyte distribution width (RBC) [Ratio] 13.7 % 11.6-14.6 [facility] Work Phone: Immature granulocytes/100 WBC (Bld) 0.300 % 0.0-0.9 [facility] Work Phone: Comment on above: IG% - Immature Granu locytes (promyelocytes, myelocytes and metamyelocytes) > 1% indicates that a LEFT SHIFT is Present. MCH (RBC) [Entitic mass] 27.7 pg 27.0-32.0 [facility] Work Phone: Nucleated RBC/100 WBC (Bld) [Ratio] 0 % 0-5 [facility] Work Phone: MCHC Auto (RBC) [Mass/Vol]on 10-21-2021 MCHC (RBC) [Mass/Vol] 32.5 g/dL 32-36 [facility] Work Phone: No Panel Informationon 10-21 Ethyl Alcohol Level < 3.0 mg/dL [facility] Work Phone: Comment on above: The serum:whole bloo d ethanol ratio is approximately 1.14and varies slightly with hematocrit. Medical Alcohol reference interval and critical value innon-tolerant individuals; 50 - 100 Impairment 100 Intoxication 100 - 250 Severe Poisoning 250 - 400 Deep/possible fatal coma Free Triiodothyronine (T3) pg/dL 2.9 pg/mL 2.18-3.98 [facility] Work Phone: MDMA (Ecstasy) Screen Negative [facility] Work Phone: Thyroid Stimulating Hormone (TSH) 5.54 uIU/mL 0.358-3.74 [facility] Work Phone: Urine Barbiturates Screen Negative [facility] Work Phone: Urine Drug Screen Comment [facility] Work Phone: Comment on above: CONFIRMATORY TESTING FOR ALL POSITIVE URINE DRUG SCREENRESULTS WILL ONLY BE SENT OUT UPON PHYSICIAN ORDER. VISTA Urine Drug Screen methods provide only preliminaryanalytical test results. A more specific alternate chemicalmethod must be used in order to obtain a confirmedanalytical result. Gas chromatography/mass spectrometery(GC/MS) is the preferred confirmatory method. Clinicalconsideration and professional judgement should be appliedto any drug of abuse test result, particularly whenpreliminary positive results are used. URINE TCA TESTING MUST BE ORDERED SEPARATELY. USE TESTMNEMONIC: [facility] Urine Methadone Screen Negative [facility] Work Phone: [phone] Platelets bldon 10-21-2021 Platelets (Bld) [#/Vol] 277 10*3/uL 150-450 [facility] Work Phone: Urine phencyclidine (PCP) de tectionon 10-21-2021 Phencyclidine Ql (U) Negative [facility] Work Phone: Absolute lymphocyte counton 09-03-2021 Lymphocytes Auto (Unsp spec) [#/Vol] 1.56 10*3/uL 0.83-4.51 [facility] Work Phone: Basophil percentageon 2021 Basophils/100 WBC (Bld) 0.6 % 0-1 [facility] Work Phone: Chloride [Moles/Vol] 106 mmol/L 98-107 [facility] Work Phone: Eosinophils/100 WBC (Bld) 5.9 % 0-5 [facility] Work Phone: Glucose [Mass/Vol] 104 mg/dL 74-106 [facility] Work Phone: Comment on above: Fasting Glucose resu lt from 100 to 125 mg/dL suggests IMPAIRED HOMEOSTASIS per A.D.A. criteria. Neutrophils (Bld) [#/Vol] 6.7 10*3/uL 2.0-7.7 [facility] Work Phone: Neutrophils/100 WBC (Bld) 69.1 % 47-70 [facility] Work Phone: Potassium [Moles/Vol] 3.3 mmol/L 3.5-5.1 [facility] Work Phone: Sodium [Moles/Vol] 136 mmol/L 136-145 [facility] Work Phone: WBC (Bld) [#/Vol] 9.7 10*3/uL 4.4-11.0 [facility] Work Phone: Beta hCG serum qualon 2021 Beta HCG ( test) Ql Negative [facility] Work Phone: Blood erythrocytes count (nu mber/volume)on 09-03-2021 RBC (Bld) [#/Vol] 4.51 10*6/uL 4.2-5.4 [facility] Work [facility]: Blood hemoglobin measurement (mass/volume)on 09-03-2021 Hemoglobin (Bld) [Mass/Vol] 12.9 g/dL 12.0-15.0 [facility] Work Phone: Blood lymphocytes/100 leukoc yteson 09-03-2021 Lymphocytes/100 WBC (Bld) 16.1 % 19-41 [facility] Work Phone: Blood monocytes/100 leukocyt eson 09-03-2021 Monocytes/100 WBC (Bld) 7.9 % 0-10 [facility] Work Phone: Blood platelet mean volumeon 09-03-2021 Platelet mean volume (Bld) [Entitic vol] 11.0 fL 6.2-12.0 [facility] Work Phone: Determination of erythrocyte mean corpuscular volume (MCV)on 09-03-2021 MCV (RBC) [Entitic vol] 88.7 fL 81-99 [facility] Work Phone: Hematocrit Auto (Bld) [Volum e fraction]on 09-03-2021 Hematocrit (Bld) [Volume fraction] 40.0 % 37-47 [facility] Work Phone: Laboratory - Chemistry and C hemistry - challengeon 09-03-2021 CK [Catalytic activity/Vol] 82 U/L 26-192 [facility] Work Phone: CO2 [Moles/Vol] 22.0 mmol/L 21.0-32.0 [facility] Work Phone: Urea nitrogen/Creatinine [Mass ratio] 8.3 mg/mg 10-20 [facility] Work Phone: Laboratory - Drug toxicology on 09-03-2021 Amphetamines Ql (U) Positive [facility] Work Phone: Benzodiazepines Ql (U) Positive [facility] Work Phone: Cannabinoids Screen Ql (U) Positive [facility] Work Phone: Cocaine Ql (U) Positive [facility] Work Phone: Opiates Ql (U) Negative [facility] Work Phone: Laboratory - Hematology and Cell countson 09-03-2021 Erythrocyte distribution width (RBC) [Entitic vol] 40.6 fL 35.1-43.9 [facility] Work Phone: Erythrocyte distribution width (RBC) [Ratio] 12.5 % 11.6-14.6 [facility] Work Phone: Immature granulocytes/100 WBC (Bld) 0.400 % 0.0-0.9 [facility] Work Phone: Comment on above: IG% - Immature Granu locytes (promyelocytes, myelocytes and metamyelocytes) > 1% indicates that a LEFT SHIFT is Present. MCH (RBC) [Entitic mass] 28.6 pg 27.0-32.0 [facility] Work Phone: Nucleated RBC/100 WBC (Bld) [Ratio] 0 % 0-5 [facility] Work Phone: MCHC Auto (RBC) [Mass/Vol]on 09-03-2021 MCHC (RBC) [Mass/Vol] 32.3 g/dL 32-36 [facility] Work Phone: No Panel Informationon 09-03 MDMA (Ecstasy) Screen Negative [facility] Work Phone: Urine Barbiturates Screen Negative [facility] Work Phone: Urine Drug Screen Comment [facility] Work Phone: Comment on above: CONFIRMATORY TESTING FOR ALL POSITIVE URINE DRUG SCREENRESULTS WILL ONLY BE SENT OUT UPON PHYSICIAN ORDER. VISTA Urine Drug Screen methods provide only preliminaryanalytical test results. A more specific alternate chemicalmethod must be used in order to obtain a confirmedanalytical result. Gas chromatography/mass spectrometery(GC/MS) is the preferred confirmatory method. Clinicalconsideration and professional judgement should be appliedto any drug of abuse test result, particularly whenpreliminary positive results are used. URINE TCA TESTING MUST BE ORDERED SEPARATELY. USE TESTMNEMONIC: [facility] Urine Methadone Screen Negative [facility] Work Phone: Estimated Creatinine Clearance Calc 31.87 ml/min [facility] Work Phone: Estimated GFR (MDRD) Amer 32 mL/min >60 [facility] Work Phone: Comment on above: GFR Calc Estimated GFR (MDRD) Non-Af Amer 27 mL/min >60 [facility] Work Phone: Comment on above: Non- GFR Calc Ethyl Alcohol Level < 3.0 mg/dL [facility] Work Phone: Comment on above: The serum:whole bloo d ethanol ratio is approximately 1.14and varies slightly with hematocrit. Medical Alcohol reference interval and critical value innon-tolerant individuals; 50 - 100 Impairment 100 Intoxication 100 - 250 Severe Poisoning 250 - 400 Deep/possible fatal coma Platelets bldon 09-03-2021 Platelets (Bld) [#/Vol] 287 10*3/uL 150-450 [facility] Work Phone: Serum or plasma calcium brittney urement (mass/volume)on 09-03-2021 Calcium [Mass/Vol] 9.5 mg/dL 8.5-10.1 [facility] Work Phone: Serum or plasma creatinine m easurement (mass/volume)on 09-03-2021 Creatinine [Mass/Vol] 2.29 mg/dL 0.55-1.02 [facility] Work Phone: Comment on above: The validity of the calculated GFR & GFRAA in patients over 70 years has not been determined. Clinical correlation is essential. Serum or plasma urea nitroge n measurement (mass/volume)on 09-03-2021 Urea nitrogen [Mass/Vol] 19 mg/dL 7-18 [facility] Work Phone: Thin prep Papanicolaou smear with manual screeningon 09-03-2021 Thin prep Papanicolaou smear with manual screening 8 5-15 [facility] Work Phone: Urine phencyclidine (PCP) de tectionon 09-03-2021 Phencyclidine Ql (U) Negative [facility] Work Phone: Absolute lymphocyte counton 08-12-2021 Lymphocytes Auto (Unsp spec) [#/Vol] 1.14 10*3/uL 0.83-4.51 [facility] Work Phone: Basophil percentageon 2021 Basophils/100 WBC (Bld) 0.5 % 0-1 [facility] Work Phone: Chloride [Moles/Vol] 108 mmol/L 98-107 [facility] Work Phone: [phone] Eosinophils/100 WBC (Bld) 2.0 % 0-5 [facility] Work Phone: Glucose [Mass/Vol] 92 mg/dL 74-106 [facility] Work Phone: Neutrophils (Bld) [#/Vol] 4.1 10*3/uL 2.0-7.7 [facility] Work Phone: Neutrophils/100 WBC (Bld) 69.9 % 47-70 [facility] Work Phone: Potassium [Moles/Vol] 4.3 mmol/L 3.5-5.1 [facility] Work Phone: Comment on above: Moderate Hemolysis, Result may be falsely increased. Sodium [Moles/Vol] 138 mmol/L 136-145 [facility] Work Phone: WBC (Bld) [#/Vol] 5.9 10*3/uL 4.4-11.0 [facility] Work Phone: Blood erythrocytes count (nu mber/volume)on 08-12-2021 RBC (Bld) [#/Vol] 4.41 10*6/uL 4.2-5.4 [facility] Work Phone: Blood hemoglobin measurement (mass/volume)on 08-12-2021 Hemoglobin (Bld) [Mass/Vol] 12.7 g/dL 12.0-15.0 [facility] Work Phone: Blood lymphocytes/100 leukoc yteson 08-12-2021 Lymphocytes/100 WBC (Bld) 19.3 % 19-41 [facility] Work Phone: Blood monocytes/100 leukocyt eson 08-12-2021 Monocytes/100 WBC (Bld) 8.0 % 0-10 [facility] Work Phone: Blood platelet mean volumeon 08-12-2021 Platelet mean volume (Bld) [Entitic vol] 10.7 fL 6.2-12.0 [facility] Work Phone: Determination of erythrocyte mean corpuscular volume (MCV)on 08-12-2021 MCV (RBC) [Entitic vol] 88.0 fL 81-99 [facility] Work Phone: Hematocrit Auto (Bld) [Volum e fraction]on 08-12-2021 Hematocrit (Bld) [Volume fraction] 38.8 % 37-47 [facility] Work Phone: Laboratory - Chemistry and C hemistry - challengeon 08-12-2021 CO2 [Moles/Vol] 23.0 mmol/L 21.0-32.0 [facility] Work Phone: Lipase [Catalytic activity/Vol] 41 U/L 73-393 [facility] Work Phone: Urea nitrogen/Creatinine [Mass ratio] 6.8 mg/mg 10-20 [facility] Work Phone: Laboratory - Hematology and Cell countson 08-12-2021 Erythrocyte distribution width (RBC) [Entitic vol] 39.5 fL 35.1-43.9 [facility] Work Phone: Erythrocyte distribution width (RBC) [Ratio] 12.3 % 11.6-14.6 [facility] Work Phone: Immature granulocytes/100 WBC (Bld) 0.300 % 0.0-0.9 [facility] Work Phone: Comment on above: IG% - Immature Granu locytes (promyelocytes, myelocytes and metamyelocytes) > 1% indicates that a LEFT SHIFT is Present. MCH (RBC) [Entitic mass] 28.8 pg 27.0-32.0 [facility] Work Phone: Nucleated RBC/100 WBC (Bld) [Ratio] 0 % 0-5 [facility] Work Phone: MCHC Auto (RBC) [Mass/Vol]on 08-12-2021 MCHC (RBC) [Mass/Vol] 32.7 g/dL 32-36 [facility] Work Phone: No Panel Informationon 08-12 Estimated Creatinine Clearance Calc 38.79 ml/min [facility] Work Phone: Estimated GFR (MDRD) Amer 36 mL/min >60 [facility] Work Phone: Comment on above: GFR Calc Estimated GFR (MDRD) Non-Af Amer 30 mL/min >60 [facility] Work Phone: Comment on above: Non- GFR Calc Platelets bldon 08-12-2021 Platelets (Bld) [#/Vol] 198 10*3/uL 150-450 [facility] Work Phone: Serum or plasma calcium brittney urement (mass/volume)on 08-12-2021 Calcium [Mass/Vol] 9.5 mg/dL 8.5-10.1 [facility] Work Phone: Serum or plasma creatinine m easurement (mass/volume)on 08-12-2021 Creatinine [Mass/Vol] 2.05 mg/dL 0.55-1.02 [facility] Work Phone: Comment on above: The validity of the calculated GFR & GFRAA in patients over 70 years has not been determined. Clinical correlation is essential. Serum or plasma urea nitroge n measurement (mass/volume)on 08-12-2021 Urea nitrogen [Mass/Vol] 14 mg/dL 7-18 [facility] Work Phone: Thin prep Papanicolaou smear with manual screeningon 08-12-2021 Thin prep Papanicolaou smear with manual screening 7 5-15 [facility] Work Phone: No Panel Informationon 07-26 SARS-CoV-2 Antigen (Rapid) [facility] Work Phone: Absolute lymphocyte counton 07-25-2021 Lymphocytes Auto (Unsp spec) [#/Vol] 1.21 10*3/uL 0.83-4.51 [facility] Work Phone: Basophil percentageon 2021 Basophils/100 WBC (Bld) 0.5 % 0-1 [facility] Work Phone: Bilirubin [Mass/Vol] 0.40 mg/dL 0.20-1.00 [facility] Work Phone: Comment on above: For patients on eltr ombopag therapy, use of Dimension [place] TBIL is not recommended. Chloride [Moles/Vol] 110 mmol/L 98-107 [facility] Work Phone: Eosinophils/100 WBC (Bld) 1.9 % 0-5 [facility] Work Phone: Glucose [Mass/Vol] 96 mg/dL 74-106 [facility] Work Phone: Neutrophils (Bld) [#/Vol] 6.6 10*3/uL 2.0-7.7 [facility] Work Phone: Neutrophils/100 WBC (Bld) 75.2 % 47-70 [facility] Work Phone: Potassium [Moles/Vol] 3.0 mmol/L 3.5-5.1 [facility]: Protein [Mass/Vol] 7.7 g/dL 6.4-8.2 [facility] Work Phone: [phone] Sodium [Moles/Vol] 141 mmol/L 136-145 [facility] Work Phone: WBC (Bld) [#/Vol] 8.8 10*3/uL 4.4-11.0 [facility] Work Phone: Beta hCG serum qualon 2021 Beta HCG ( test) Ql Negative [facility] Work Phone: Blood erythrocytes count (nu mber/volume)on 07-25-2021 RBC (Bld) [#/Vol] 5.00 10*6/uL 4.2-5.4 [facility] Work Phone: Blood hemoglobin measurement (mass/volume)on 07-25-2021 Hemoglobin (Bld) [Mass/Vol] 14.2 g/dL 12.0-15.0 [facility] Work Phone: Blood lymphocytes/100 leukoc yteson 07-25-2021 Lymphocytes/100 WBC (Bld) 13.7 % 19-41 [facility] Work Phone: Blood monocytes/100 leukocyt eson 07-25-2021 Monocytes/100 WBC (Bld) 8.4 % 0-10 [facility] Work Phone: Blood platelet mean volumeon 07-25-2021 Platelet mean volume (Bld) [Entitic vol] 11.0 fL 6.2-12.0 [facility] Work Phone: Determination of erythrocyte mean corpuscular volume (MCV)on 07-25-2021 MCV (RBC) [Entitic vol] 83.0 fL 81-99 [facility] Work Phone: Hematocrit Auto (Bld) [Volum e fraction]on 07-25-2021 Hematocrit (Bld) [Volume fraction] 41.5 % 37-47 [facility] Work Phone: Laboratory - Chemistry and C hemistry - challengeon 07-25-2021 ALP [Catalytic activity/Vol] 75 U/L 45-117 [facility] Work Phone: ALT [Catalytic activity/Vol] 23 U/L 13-56 [facility] Work Phone: CO2 [Moles/Vol] 22.0 mmol/L 21.0-32.0 [facility] Work Phone: Globulin (S) [Mass/Vol] 4.3 g/dL 2.2-4.2 [facility] Work Phone: [phone] Urea nitrogen/Creatinine [Mass ratio] 6.9 mg/mg 10-20 [facility] Work Phone: [phone] Laboratory - Drug toxicology on 07-25-2021 Amphetamines Ql (U) Positive [facility] Work Phone: Benzodiazepines Ql (U) Negative [facility] Work Phone: Cannabinoids Screen Ql (U) Negative [facility] Work Phone: Cocaine Ql (U) Negative [facility] Work Phone: Opiates Ql (U) Negative [facility] Work Phone: Laboratory - Hematology and Cell countson 07-25-2021 Erythrocyte distribution width (RBC) [Entitic vol] 37.3 fL 35.1-43.9 [facility] Work Phone: Erythrocyte distribution width (RBC) [Ratio] 12.4 % 11.6-14.6 [facility] Work Phone: Immature granulocytes/100 WBC (Bld) 0.300 % 0.0-0.9 [facility] Work Phone: Comment on above: IG% - Immature Granu locytes (promyelocytes, myelocytes and metamyelocytes) > 1% indicates that a LEFT SHIFT is Present. MCH (RBC) [Entitic mass] 28.4 pg 27.0-32.0 [facility] Work Phone: Nucleated RBC/100 WBC (Bld) [Ratio] 0 % 0-5 [facility] Work Phone: MCHC Auto (RBC) [Mass/Vol]on 07-25-2021 MCHC (RBC) [Mass/Vol] 34.2 g/dL 32-36 [facility] Work Phone: No Panel Informationon 07-25 Estimated Creatinine Clearance Calc 39.59 ml/min [facility] Work Phone: Estimated GFR (MDRD) Amer 37 mL/min >60 [facility] Work Phone: Comment on above: GFR Calc Estimated GFR (MDRD) Non-Af Amer 30 mL/min >60 [facility] Work Phone: Comment on above: Non- GFR Calc Ethyl Alcohol Level < 3.0 mg/dL [facility] Work Phone: Comment on above: The serum:whole bloo d ethanol ratio is approximately 1.14and varies slightly with hematocrit. Medical Alcohol reference interval and critical value innon-tolerant individuals; 50 - 100 Impairment 100 Intoxication 100 - 250 Severe Poisoning 250 - 400 Deep/possible fatal coma Urine Barbiturates Screen Negative [facility] Work Phone: Urine Drug Screen Comment [facility] Work Phone: Comment on above: CONFIRMATORY TESTING FOR ALL POSITIVE URINE DRUG SCREENRESULTS WILL ONLY BE SENT OUT UPON PHYSICIAN ORDER. VISTA Urine Drug Screen methods provide only preliminaryanalytical test results. A more specific alternate chemicalmethod must be used in order to obtain a confirmedanalytical result. Gas chromatography/mass spectrometery(GC/MS) is the preferred confirmatory method. Clinicalconsideration and professional judgement should be appliedto any drug of abuse test result, particularly whenpreliminary positive results are used. URINE TCA TESTING MUST BE ORDERED SEPARATELY. USE TESTMNEMONIC: [facility] Urine Methadone Screen Negative [facility] Work Phone: Urine Methamphetamine-MDMA Screen Positive [facility] Work Phone: Platelets bldon 07-25-2021 Platelets (Bld) [#/Vol] 195 10*3/uL 150-450 [facility] Work Phone: Serum or plasma albumin brittney urement (mass/volume)on 07-25-2021 Albumin [Mass/Vol] 3.4 g/dL 3.2-5.0 [facility] Work Phone: Serum or plasma albumin/glob ulin mass ratioon 07-25-2021 Albumin/Globulin [Mass ratio] 0.8 {ratio} 0.9-2.4 [facility] Work Phone: Serum or plasma calcium brittney urement (mass/volume)on 07-25-2021 Calcium [Mass/Vol] 9.2 mg/dL 8.5-10.1 [facility] Work Phone: Serum or plasma creatinine m easurement (mass/volume)on 07-25-2021 Creatinine [Mass/Vol] 2.04 mg/dL 0.55-1.02 [facility] Work Phone: Comment on above: The validity of the calculated GFR & GFRAA in patients over 70 years has not been determined. Clinical correlation is essential. Serum or plasma urea nitroge n measurement (mass/volume)on 07-25-2021 Urea nitrogen [Mass/Vol] 14 mg/dL 7-18 [facility] Work Phone: Thin prep Papanicolaou smear with manual screeningon 07-25-2021 Thin prep Papanicolaou smear with manual screening 34 U/L 15-37 [facility] Work Phone: Thin prep Papanicolaou smear with manual screening 9 5-15 [facility] Work Phone: Urine phencyclidine (PCP) de tectionon 07-25-2021 Phencyclidine Ql (U) Negative [facility] Work Phone: No Panel Informationon 06-23 POC SARS CoV-2 Antigen Positive [facility] Work Phone: ELASTOGRAPHY WITH IMAGINGon 07-15-2020 ELASTOGRAPHY WITH IMAGING ELASTOGRAPHY WITH IMAGING Ordering Physician: Eugene Petty MD 07/15/2020 9:10 AM ULTRASOUND LIVER ELASTOGRAPHY: Clinical Statement: Chronic hepatitis C REPORT: The liver is not enlarged measuring 16 mm in length. Hepatic parenchymal echogenicity is within normal limits. No focal liver mass or perihepatic ascites. ARFI median: 1.1 m/s IQR - 0.1 IQR/median ratio = 0.1 (must be 0.15 or less to ensure technical adequacy) Recommendation for Interpretation of Liver Stiffness Values Obtained with ARFI Techniques in Patients with Viral Hepatitis and NAFLD: Liver Stiffness Value: Recommendation: <=5 kPa (1.3 m/sec) High probability of being normal <9 kPa (1.7 m/sec) In absence of other known clinical signs, rules out cACLD. <9 kPa (1.7 m/sec) If known clinical signs, may need further test for confirmation. 9-13 kPa (1.7-2.1 m/sec) Suggestive of cACLD but need further test for confirmation > 13 kPa (2.1 m/sec) Rules in cACLD > 17 kPa (2.4 m/sec) Suggestive of CSPH ARFI = acoustic radiation force impulse cACLD = compensated advanced chronic liver disease CSPH = clinically significant portal hypertension NAFLD = non-alcoholic fatty liver disease IMPRESSION: Liver elastography results indicate a high probability of being normal. Dictated by [employer]: Bethany Ribera DO Reviewed and Signed by: Talib Aceves MD ---- Electronic Signature on File ---- Signed By: Talib Aceves MD [email or web address] Dictated: 07/15/2020 9:54 AM Signed: 07/15/2020 10:23 AM Reported By: TALIB ACEVES M.D. Signed By: TALIB ACEVES M.D. [facility] Surgical Pathologyon 020 Surgical Pathology [id number] [facility] PATHOLOGY AND LABORATORY MEDICINE [address] [place], [place] [address], [place] [address] FINAL SURGICAL PATHOLOGY REPORT NAME: AISSATOU BETTS : 1990 29 Y F BILLING NO.: [id number] LOCATION: [id number] PROCEDURE 01/15/2020 DATE: SURGEON: AKIN RAHMAN MD RECEIVED 01/16/2020 DATE: ATTENDING: AKIN RAHMAN MD REPORT DATE: 01/17/2020 COPIES TO: DIAGNOSIS: A. STOMACH, BODY, BIOPSY - MILD CHRONIC INACTIVE GASTRITIS Comment: Evaluation of the H&E-stained sections shows no evidence of Helicobacter pylori or any morphologic features to suggest infection with the organism; as such, further studies for Helicobacter are not indicated. There is no evidence of intestinal metaplasia, dysplasia or malignancy. B. COLON, TRANSVERSE, POLYPECTOMY - TUBULAR ADENOMA JAW/JAW Signature> CIHLO JAMIL M.D. CLINICAL INFORMATION: Nausea, vomiting, weight loss SPECIMEN: (A) GASTRIC BIOPSY (B) COLON POLYP, BIOPSY GROSS DESCRIPTION: A. Received in formalin labeled stomach - body, gastric biopsy rule out H. pylori are two segments of hernandez tissue 0.4 cm each. Entirely submitted in one cassette labeled A1. B. Received in formalin labeled : - Transverse, transverse colon polyp is a segment of hernandez tissue 0.5 cm. Entirely submitted in one cassette labeled B1. JCK/JCK Disclaimer: The following statement applies to all immunohistochemistry, in situ hybridization, molecular studies, and immunofluorescence testing. The use of one or more reagents in the above tests is regulated as an analyte specific reagent (ASR). These tests were developed and their performance characteristics determined by the clinical laboratories of [facility]. They have not been cleared by the US Food and Drug Administration (FDA). The FDA has determined that such clearance or approval is not necessary. All the above immunostains were performed on paraffin embedded tissue. Appropriate positive and negative controls (where applicable) were run in parallel with the patient's specimen; these controls showed expected staining pattern, with acceptable intensity of staining. Immunohistochemical assays have not been validated on decalcified tissues. Results should be interpreted with caution given the raised possibility of false negativity on decalcified specimens. Professional Performing Location: [place] [address]. DEPARTMENT OF PATHOLOGY AND LABORATORY MEDICINE [place], [place] [address] Normal [facility] NM Kidney Imaging w/ Flow w/ Pharmon 12-06-2019 NM Kidney Imaging w/ Flow w/ Pharm Patient Name: AISSATOU BETTS Nuc Med Exam Date/Time 12/06/2019 14:14:52 EDT Exam NM Kidney Imaging w/ Flow w/ Pharm Ordering Physician MD SNOW LAWRENCE Accession Number [id number] CPT4 Codes 73955 () Reason For Exam obstruction, differential renal function Report MAG3 DIURETIC RENOGRAM CLINICAL INDICATION: Hydronephrosis The patient was given an intravenous dose of 8.5 mCi of technetium 99m MAG3. Flow images over the kidneys were obtained in the posterior projection, followed by delayed images over the following 20 minutes. Activity curves over the kidney were obtained during the flow and parenchymal imaging. The patient was subsequently given an intravenous administration of 40 mg of Lasix and additional post-Lasix imaging of the kidneys was performed for an additional 20 minutes. COMPARISON: None FINDINGS: Initial angiographic phase images demonstrate prompt perfusion to the left kidney. There is no appreciable tracer uptake within the expected location of the right kidney. The left kidney demonstrates prompt uptake and clearance of tracer from the renal parenchyma. There is mild to moderate left-sided hydronephrosis. No appreciable cortical uptake is noted in the expected location of the right kidney. Renal cortical split function is calculated at 100 percent within the left kidney versus zero percent on the right. Following administration of intravenous Lasix, there is fairly rapid clearance of tracer from the dilated left renal collecting system. T1/2 clearance time is approximately seven minutes (nonobstructed less than 10 minutes, high grade obstruction greater than 20 minutes). IMPRESSION: Nonfunctional or absent right kidney. No appreciable tracer uptake is identified in the expected location of the right renal fossa. Mild to moderate left-sided hydronephrosis is noted on the pre-Lasix images. There is fairly rapid clearance of tracer from the dilated left renal collecting system following administration of intravenous Lasix. No evidence of high-grade obstruction is seen on the left. Report Dictated on Final Dictated: 12/06/2019 4:07 pm Dictating Physician: MD PATTERSON JONATHAN R Signed Date and Time: 12/06/2019 4:16 pm Signed by: MD PATTERSON JONATHAN R Transcribed Date and Time: 12/06/2019 4:07 Normal [facility] NM Kidney W Flow and Functio n W Pharmacological Interventionon 12-06-2019 Patient Name: AISSATOU BETTS ---Nuc Med--- Exam Date/Time 12/06/2019 14:14:52 EDT Exam NM Kidney Imaging w/ Flow w/ Pharm Ordering Physician MD SNOW LAWRENCE Accession Number [id number] CPT4 Codes 01191 () Reason For Exam obstruction, differential renal function Report MAG3 DIURETIC RENOGRAM CLINICAL INDICATION: Hydronephrosis The patient was given an intravenous dose of 8.5 mCi of technetium 99m MAG3. Flow images over the kidneys were obtained in the posterior projection, followed by delayed images over the following 20 minutes. Activity curves over the kidney were obtained during the flow and parenchymal imaging. The patient was subsequently given an intravenous administration of 40 mg of Lasix and additional post-Lasix imaging of the kidneys was performed for an additional 20 minutes. COMPARISON: None FINDINGS: Initial angiographic phase images demonstrate prompt perfusion to the left kidney. There is no appreciable tracer uptake within the expected location of the right kidney. The left kidney demonstrates prompt uptake and clearance of tracer from the renal parenchyma. There is mild to moderate left-sided hydronephrosis. No appreciable cortical uptake is noted in the expected location of the right kidney. Renal cortical split function is calculated at 100 percent within the left kidney versus zero percent on the right. Following administration of intravenous Lasix, there is fairly rapid clearance of tracer from the dilated left renal collecting system. T1/2 clearance time is approximately seven minutes (nonobstructed less than 10 minutes, high grade obstruction greater than 20 minutes). IMPRESSION: Nonfunctional or absent right kidney. No appreciable tracer uptake is identified in the expected location of the right renal fossa. Mild to moderate left-sided hydronephrosis is noted on the pre-Lasix images. There is fairly rapid clearance of tracer from the dilated left renal collecting system following administration of intravenous Lasix. No evidence of high-grade obstruction is seen on the left. Report Dictated on --- Final --- Dictated: 12/06/2019 4:07 pm Dictating Physician: MD PATTERSON JONATHAN R Signed Date and Time: 12/06/2019 4:16 pm Signed by: MD PATTERSON JONATHAN R Transcribed Date and Time: 12/06/2019 4:07 [facility], [place], [place] Incoming Radiology Results From [facility] - 12/06/2019 4:17 PM EDT Patient Name: AISSATOU BETTS ---Nuc Med--- Exam Date/Time 12/06/2019 14:14:52 EDT Exam NM Kidney Imaging w/ Flow w/ Pharm Ordering Physician MD SNOW LAWRENCE Accession Number [id number] CPT4 Codes 01694 () Reason For Exam obstruction, differential renal function Report MAG3 DIURETIC RENOGRAM CLINICAL INDICATION: Hydronephrosis The patient was given an intravenous dose of 8.5 mCi of technetium 99m MAG3. Flow images over the kidneys were obtained in the posterior projection, followed by delayed images over the following 20 minutes. Activity curves over the kidney were obtained during the flow and parenchymal imaging. The patient was subsequently given an intravenous administration of 40 mg of Lasix and additional post-Lasix imaging of the kidneys was performed for an additional 20 minutes. COMPARISON: None FINDINGS: Initial angiographic phase images demonstrate prompt perfusion to the left kidney. There is no appreciable tracer uptake within the expected location of the right kidney. The left kidney demonstrates prompt uptake and clearance of tracer from the renal parenchyma. There is mild to moderate left-sided hydronephrosis. No appreciable cortical uptake is noted in the expected location of the right kidney. Renal cortical split function is calculated at 100 percent within the left kidney versus zero percent on the right. Following administration of intravenous Lasix, there is fairly rapid clearance of tracer from the dilated left renal collecting system. T1/2 clearance time is approximately seven minutes (nonobstructed less than 10 minutes, high grade obstruction greater than 20 minutes). IMPRESSION: Nonfunctional or absent right kidney. No appreciable tracer uptake is identified in the expected location of the right renal fossa. Mild to moderate left-sided hydronephrosis is noted on the pre-Lasix images. There is fairly rapid clearance of tracer from the dilated left renal collecting system following administration of intravenous Lasix. No evidence of high-grade obstruction is seen on the left. Report Dictated on --- Final --- Dictated: 12/06/2019 4:07 pm Dictating Physician: MD PATTERSON JONATHAN R Signed Date and Time: 12/06/2019 4:16 pm Signed by: MD PATTERSON JONATHAN R Transcribed Date and Time: 12/06/2019 4:07 [facility], [place] ED Provider Noteon 8 HIM IP Note OR [employer] Normal [facility] UR HCG Qualitativeon 018 HCG.beta subunit ( test) Ql (U) Negative Normal NEGATIVE [facility] Comment on above: Result Comment: Test results should always be evaluated with all availableclinical data.If a urine sample is too dilute, it may not containa arepresentative urinary hCG concentration. If a negativeresult is obtainedand is still suspected, afirst morning sample should be obtained and tested. CBC With Platelet and Differ entialon 12-01-2017 Basophils Auto #/vol (Bld) 0.03 E9/L Normal 0.00-0.20 [facility] Basophils/100 WBC Auto (Bld) 0.6 % Normal 0.0-2.0 [facility] Eosinophils 0.18 E9/L Normal 0.05-0.50 [facility] Eosinophils/100 leukocytes 3.4 % Normal 0.0-6.0 [facility] Erythrocyte distribution width Auto Ratio (RBC) 13.6 fL Normal 11.5-15.0 [facility] Erythrocytes (RBC) 4.27 E12/L Normal 3.50-5.50 [facility] Granulocytes/100 WBC (Bld) 0.4 % Normal 0.0-5.0 [facility] Granulocytes/100 WBC (Bld) 0.02 E9/L Normal [facility] Hematocrit (HCT) 36.2 % Normal 34.0-48.0 [facility] Hemoglobin mass conc (Bld) 11.9 g/dL Normal 11.5-15.5 [facility] Lymphocytes 1.50 E9/L Normal 1.50-4.00 [facility] Lymphocytes/100 leukocytes 28.7 % Normal 20.0-42.0 [facility] MCH 27.9 pg Normal 26.0-35.0 [facility] MCHC mass conc (RBC) 32.9 % Normal 32.0-34.5 [facility] MCV 84.8 fL Normal 80.0-99.9 [facility] Monocytes 0.42 E9/L Normal 0.10-0.95 [facility] Monocytes/100 leukocytes 8.0 % Normal 2.0-12.0 [facility] Neutrophils 3.08 E9/L Normal 1.80-7.30 [facility] Neutrophils/100 leukocytes 58.9 % Normal 43.0-80.0 [facility] Platelet mean volume (PMV) 10.2 fL Normal 7.0-12.0 [facility] Platelets 227 E9/L Normal 130-450 [facility] WBC (Leukocytes) 5.2 E9/L Normal 4.5-11.5 [facility] Comprehensive Metabolic Pane margarita 12-01-2017 Alanine aminotransferase (ALT) 35 U/L High 0-32 [facility] Albumin 3.9 g/dL Normal 3.5-5.2 [facility] Alkaline phosphatase (ALP) 85 U/L Normal 35-104 [facility] Anion gap 14 mmol/L Normal 7-16 [facility] Aspartate aminotransferase (AST) 26 U/L Normal 0-31 [facility] Bilirubin (total) mg/dL Normal 0.0-1.2 [facility] Calcium 9.4 mg/dL Normal 8.6-10.2 [facility] Chloride 108 mmol/L High 98-107 [facility] CO2 17 mmol/L Low 22-29 [facility] Creatinine 1.8 mg/dL High 0.5-1.0 [facility] eGFR (black) 41 mL/min/{1.73_m2} Normal [facility] eGFR (non-black) 34 mL/min/{1.73_m2} Normal >=60 [facility] Comment on above: Result Comment: Scout yang Kidney Disease: less than 60 ml/min/1.73 sq.m. Kidney Failure: less than 15 ml/min/1.73 sq.m.Results valid for patients 18 years and older. 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 Normal [facility] Urinalysis, reflex to micros copicon 12-01-2017 Bilirubin Ql (U) SMALL Abnormal Negative [facility] Urine, clarity TURBID Abnormal Clear [facility] Urine, color RED Abnormal Straw/Yellow [facility] Urine, glucose presence Negative Normal Negative [facility] Urine, hemoglobin presence LARGE Abnormal Negative [facility] Urine, ketones presence Negative Normal Negative [facility] Urine, leukocyte esterase presence SMALL Abnormal Negative [facility] Urine, nitrite presence Negative Normal Negative [facility] Urine, pH 6.5 [pH] Normal 5.0-9.0 [facility] Urine, protein presence >=300 Abnormal Negative [facility] Urine, specific gravity 1.020 Normal 1.005-1.030 [facility] Urine, urobilinogen 0.2 {Faustino'U}/dL Normal < 2.0 [facility] Urine Microscopicon 12-02-19 18 Urine, bacteria in sediment MODERATE Abnormal [facility] Urine, erythrocytes PACKED Normal 0-2 [facility] Urine, leukocytes 2-5 Normal 0-5 [facility] XR CHEST (2 VW)on 12-01-2017 XR CHEST (2 VW) Patient : 1990Age: 27 yearsGender: FemaleOrder Date: 12/01/2017 2:00 PMExam: XR CHEST (2 VW)Indication: dyspnea dyspnea Number of views: 2 views of the chest in PA and lateral projectionsComparison: 02/25/2016FINDINGS: The cardiomediastinal silhouette is unremarkable.No pulmonary consolidation, pleural effusion, or pneumothorax is seen.IMPRESSION: No airspace consolidation.Interprete d by:HERO Pillaiigned by:Av More MD12/01/18Final result Normal [facility] Basic Metabolic Panelon 05-2 Anion gap 14 mmol/L Normal - [facility] Calcium 9.1 mg/dL Normal 8.6-10.2 [facility] Chloride 106 mmol/L Normal 98-107 [facility] CO2 22 mmol/L Normal 22-29 [facility] Creatinine 1.6 mg/dL High 0.5-1.0 [facility] eGFR (black) 47 mL/min/{1.73_m2} Normal [facility] eGFR (non-black) 39 mL/min/{1.73_m2} Normal >=60 [facility] Comment on above: Result Comment: Scout yang Kidney Disease: less than 60 ml/min/1.73 sq.m. Kidney Failure: less than 15 ml/min/1.73 sq.m.Results valid for patients 18 years and older. Glucose mass conc 84 mg/dL Normal 74-109 [facility] Potassium molar conc 4.4 mmol/L Normal 3.5-5.0 [facility] Sodium 142 mmol/L Normal 132-146 [facility] Urea nitrogen 18 mg/dL Normal 6-20 [facility] CBC With Platelet and Differ entialon 2017 Basophils Auto #/vol (Bld) 0.03 E9/L Normal 0.00-0.20 [facility] Basophils/100 WBC Auto (Bld) 0.3 % Normal 0.0-2.0 [facility] Eosinophils 0.10 E9/L Normal 0.05-0.50 [facility] Eosinophils/100 leukocytes 1.0 % Normal 0.0-6.0 [facility] Erythrocyte distribution width Auto Ratio (RBC) 13.7 fL Normal 11.5-15.0 [facility] Erythrocytes (RBC) 3.89 E12/L Normal 3.50-5.50 [facility] Granulocytes/100 WBC (Bld) 0.05 E9/L Normal [facility] Granulocytes/100 WBC (Bld) 0.5 % Normal 0.0-5.0 [facility] Hematocrit (HCT) 34.3 % Normal 34.0-48.0 [facility] Hemoglobin mass conc (Bld) 10.8 g/dL Low 11.5-15.5 [facility] Lymphocytes 1.62 E9/L Normal 1.50-4.00 [facility] Lymphocytes/100 leukocytes 16.9 % Low 20.0-42.0 [facility] MCH 27.8 pg Normal 26.0-35.0 [facility] MCHC mass conc (RBC) 31.5 % Low 32.0-34.5 [facility] MCV 88.2 fL Normal 80.0-99.9 [facility] Monocytes 0.90 E9/L Normal 0.10-0.95 [facility] Monocytes/100 leukocytes 9.4 % Normal 2.0-12.0 [facility] Neutrophils 6.90 E9/L Normal 1.80-7.30 [facility] Neutrophils/100 leukocytes 71.9 % Normal 43.0-80.0 [facility] Platelet mean volume (PMV) 10.2 fL Normal 7.0-12.0 [facility] Platelets 204 E9/L Normal 130-450 [facility] WBC (Leukocytes) 9.6 E9/L Normal 4.5-11.5 [facility] Culture, Urineon 2017 Culture, Urine Culture, Urine-: 10-100,000 CFU/mL Mixed cintia isolated. Further workup and sensitivity testing is not routinely indicated and will not be performed. 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 Normal [facility] Urinalysis, reflex to micros copicon 2017 Bilirubin Ql (U) Negative Normal Negative [facility] Urine, clarity TURBID Abnormal Clear [facility] Urine, color Yellow Normal Straw/Yellow [facility] Urine, glucose presence Negative Normal Negative [facility] Urine, hemoglobin presence SMALL Abnormal Negative [facility] Urine, ketones presence Negative Normal Negative [facility] Urine, leukocyte esterase presence MODERATE Abnormal Negative [facility] Urine, nitrite presence Negative Normal Negative [facility] Urine, pH 6.5 [pH] Normal 5.0-9.0 [facility] Urine, protein presence 100 mg/dL Abnormal Negative [facility] Urine, specific gravity 1.010 Normal 1.005-1.030 [facility] Urine, urobilinogen 0.2 {Faustino'U}/dL Normal < 2.0 [facility] Urine Microscopicon 11-20-19 18 Urine, bacteria in sediment FEW Abnormal [facility] Urine, epithelial cells presence in sediment FEW Normal [facility] Urine, erythrocytes 5-10 Abnormal 0-2 [facility] Urine, leukocytes PACKED Normal 0-5 [facility] Hepatitis C Virus RNA Quant RT-PCRon 11-17-2017 EER Hepatitis C Virus RNA Quant RT-PCR See Note Normal [facility] Comment on above: Result Comment: Esther sunshine [facility] Enhanced Report using either link below:-Direct access: [email or web address] Username, Password: [email or web address] Username: [email or web address] Password: [email or web address] by [employer],[address] [place] [id number] [email or web address].[employer], Dilip Moulton MD - Lab. Director Performed By: [id number] ####[facility] Reference [id number] [place] [address] HCV RNA Qnt Real-Time PCR 5.1 log IU Normal [facility] Comment on above: Result Comment: INTE RPRETIVE INFORMATION: Hepatitis C Virus by Quantitative PCRThe quantitative range of this assay is 1.2 - 8.0 log IU/mL (15-100,000,000IU/mL).Limit of detection (LOD):15 IU/mL (1.2 log IU/mL)LOD values do not apply to diluted specimens.An interpretation of Not Detected does not rule out the presence ofPCRinhibitors in the patient specimen or hepatitis C virus RNAconcentrationsbelow the level of detection of the test. Care should be taken wheninterpreting any single viral load determination.This test should not be used for blood donor screening, associatedre-entryprotocols, or for screening Human Cell, Tissues and CellularTissue-BasedProducts (HCT/P). Performed By: [id number] ####[facility] Reference [id number] [place] [address] HCV RNA Qnt Real-Time PCR 130,000 IU/mL Normal [facility] Comment on above: Performed By: [id number] ####[facility] Reference [id number] [place] [address] HCV RNA Qnt Real-Time PCR Interp Detected Abnormal Not Detected [facility] Comment on above: Performed By: #### [id number] ####[facility] Reference [id number] [place] [address] Comprehensive Metabolic Pane margarita 11-15-2017 Alanine aminotransferase (ALT) 58 U/L High 0-32 [facility] Albumin 4.2 g/dL Normal 3.5-5.2 [facility] Alkaline phosphatase (ALP) 97 U/L Normal 35-104 [facility] Anion gap 15 mmol/L Normal 7-16 [facility] Aspartate aminotransferase (AST) 39 U/L High 0-31 [facility] Bilirubin (total) mg/dL Normal 0.0-1.2 [facility] Calcium 9.5 mg/dL Normal 8.6-10.2 [facility] Chloride 106 mmol/L Normal 98-107 [facility] CO2 20 mmol/L Low 22-29 [facility] Creatinine 1.6 mg/dL High 0.5-1.0 [facility] eGFR (black) 47 mL/min/{1.73_m2} Normal [facility] eGFR (non-black) 39 mL/min/{1.73_m2} Normal >=60 [facility] Comment on above: Result Comment: Scout yang Kidney Disease: less than 60 ml/min/1.73 sq.m. Kidney Failure: less than 15 ml/min/1.73 sq.m.Results valid for patients 18 years and older. Glucose mass conc 79 mg/dL Normal 74-109 [facility] Potassium molar conc 4.5 mmol/L Normal 3.5-5.[address] [facility] Protein 7.7 g/dL Normal 6.4-8.3 [facility] Sodium 141 mmol/L Normal 132-146 [facility] Urea nitrogen 23 mg/dL High 6-20 [facility] HIV 1/O/2on 11-15-2017 HIV 1/O/2 Interp Non-Reactive Normal NON REACT [facility] Hepatitis C Antibodyon 11-15 Hepatitis C Antibody Interp REACTIVE Abnormal NON REACT [facility] T3 Totalon 11-15-2017 T3 Total 152.30 ng/dL Normal 80.00-200.00 [facility] Thyroxine (T4)on 11-15-2017 Thyroxine (T4) 7.3 ug/dL Normal 4.5-11.7 [facility] CBC With Platelet and Differ entialon 11-14-2017 Basophils Auto #/vol (Bld) 0.05 E9/L Normal 0.00-0.20 [facility] Basophils/100 WBC Auto (Bld) 0.7 % Normal 0.0-2.0 [facility] Eosinophils 0.18 E9/L Normal 0.05-0.50 [facility] Eosinophils/100 leukocytes 2.6 % Normal 0.0-6.0 [facility] Erythrocyte distribution width Auto Ratio (RBC) 13.9 fL Normal 11.5-15.0 [facility] Erythrocytes (RBC) 4.18 E12/L Normal 3.50-5.50 [facility] Granulocytes/100 WBC (Bld) 0.05 E9/L Normal [facility] Granulocytes/100 WBC (Bld) 0.7 % Normal 0.0-5.0 [facility] Hematocrit (HCT) 36.8 % Normal 34.0-48.0 [facility] Hemoglobin mass conc (Bld) 11.6 g/dL Normal 11.5-15.5 [facility] Lymphocytes 2.38 E9/L Normal 1.50-4.00 [facility] Lymphocytes/100 leukocytes 34.5 % Normal 20.0-42.0 [facility] MCH 27.8 pg Normal 26.0-35.0 [facility] MCHC mass conc (RBC) 31.5 % Low 32.0-34.5 [facility] MCV 88.0 fL Normal 80.0-99.9 [facility] Monocytes 0.67 E9/L Normal 0.10-0.95 [facility] Monocytes/100 leukocytes 9.7 % Normal 2.0-12.0 [facility] Neutrophils 3.57 E9/L Normal 1.80-7.30 [facility] Neutrophils/100 leukocytes 51.8 % Normal 43.0-80.0 [facility] Platelet mean volume (PMV) 10.3 fL Normal 7.0-12.0 [facility] Platelets 270 E9/L Normal 130-450 [facility] WBC (Leukocytes) 6.9 E9/L Normal 4.5-11.5 [facility] Ferritinon 11-14-2017 Ferritin 16 ng/mL Normal [facility] Comment on above: Result Comment: FERR ITIN Reference Ranges:Adult Males 20 - 60 yrars: 30 - 400 ng/mLAdult females 17 - 60 years: 13 - 150 ng/mLAdults greater than 60 years: no established reference rangePediatrics: no established reference range Hgb A1Con 11-14-2017 Hemoglobin A1c/Hemoglobin.total mass fraction (Bld) 5.1 % Normal 4.8-5.9 [facility] Iron Profileon 11-14-2017 % Saturation 12 % Low 15-50 [facility] Iron 52 ug/dL Normal 37-145 [facility] Iron Binding Capacity 423 mcg/dL Normal 250-450 [facility] Progress Noteon 11-14-2017 HIM IP Note OR Career Orientation Teacher Normal [facility] HIM IP Note OR Career Orientation Teacher Normal [facility] HIM IP Note OR Career Orientation Teacher Normal [facility] TSH w/out Reflexon 8 Thyroid stimulating hormone (TSH) 4.440 uIU/mL High 0.270-4.200 [facility] Vitamin B12on 11-14-2017 Cobalamins (Vitamin B12) 376 pg/mL Normal 211-946 [facility] Vitamin D, 25-hydroxyon 10-25 Vitamin D, 25-hydroxy 14 ng/mL Low 30-100 [facility] Comment on above: Result Comment: <20 ng/mL.............Ypjallpsb24-51 ng/mL...........Jstkspsdjcum19-528 ng/mL..........Sufficient>100 ng/mL............Toxic CBC With Platelet and Differ entialon 11-05-2017 Basophils Auto #/vol (Bld) 0.03 E9/L Normal 0.00-0.20 [facility] Basophils/100 WBC Auto (Bld) 0.4 % Normal 0.0-2.0 [facility] Eosinophils 0.15 E9/L Normal 0.05-0.50 [facility] Eosinophils/100 leukocytes 1.9 % Normal 0.0-6.0 [facility] Erythrocyte distribution width Auto Ratio (RBC) 14.2 fL Normal 11.5-15.0 [facility] Erythrocytes (RBC) 3.85 E12/L Normal 3.50-5.50 [facility] Granulocytes/100 WBC (Bld) 0.11 E9/L Normal [facility] Granulocytes/100 WBC (Bld) 1.4 % Normal 0.0-5.0 [facility] Hematocrit (HCT) 34.6 % Normal 34.0-48.0 [facility] Hemoglobin mass conc (Bld) 10.8 g/dL Low 11.5-15.5 [facility] Lymphocytes 1.70 E9/L Normal 1.50-4.00 [facility] Lymphocytes/100 leukocytes 21.2 % Normal 20.0-42.0 [facility] MCH 28.1 pg Normal 26.0-35.0 [facility] MCHC mass conc (RBC) 31.2 % Low 32.0-34.5 [facility] MCV 89.9 fL Normal 80.0-99.9 [facility] Monocytes 0.52 E9/L Normal 0.10-0.95 [facility] Monocytes/100 leukocytes 6.5 % Normal 2.0-12.0 [facility] Neutrophils 5.50 E9/L Normal 1.80-7.30 [facility] Neutrophils/100 leukocytes 68.6 % Normal 43.0-80.0 [facility] Platelet mean volume (PMV) 10.7 fL Normal 7.0-12.0 [facility] Platelets 197 E9/L Normal 130-450 [facility] WBC (Leukocytes) 8.0 E9/L Normal 4.5-11.[address] [facility] [address] ABDOMEN PELVIS WO CONTRAS Ton 11-05-2017 CT ABDOMEN PELVIS WO CONTRAST Patient : 1990Age: 26 yearsGender: FemaleOrder Date: 11/05/2017 8:45 AMEXAM: CT ABDOMEN PELVIS WO CONTRASTNUMBER OF IMAGES: 313INDICATION: ABDOMINAL PAIN COMPARISON: May 15, 2016RESULT:Lung bases: UnremarkableLiver: UnremarkableSpleen: UnremarkablePancreas/pricila iary: UnremarkableAdrenal glands: UnremarkableKidneys: Absent right kidney. Dysmorphic and enlarged left kidney,unchanged.Mesente ry/peritoneum/retroperit oneum: No free air or abnormal fluidcollection. No ascites.Bowel: Limited evaluation of GI tract due to lack of enteric contrast.No dilated bowel. No evidence of excessive colonic stool.Vasculature: Unremarkable abdominal aorta.Pelvis: No pelvic ascites. Unremarkable urinary bladder.Bones/soft tissue: No acute osseous findings. Soft tissues areunremarkable. IMPRESSION: No acute process in the abdomen and pelvis. No free air, abnormalfluid collection or bowel obstruction.Stable left dysmorphic and enlarged kidney. Absent right kidney.Additional findings as detailed.Interpreted by:HERO Hulligned by:Steven Lewis MD11/05/17inal result Normal [facility] Comprehensive Metabolic Pane margarita 11-05-2017 Alanine aminotransferase (ALT) 48 U/L High 0-32 [facility] Albumin 3.9 g/dL Normal 3.5-5.2 [facility] Alkaline phosphatase (ALP) 102 U/L Normal 35-104 [facility] Anion gap 15 mmol/L Normal 7-16 [facility] Aspartate aminotransferase (AST) 37 U/L High 0-31 [facility] Comment on above: Result Comment: Spec imen is slightly Hemolyzed. Result may be artificially increased. Bilirubin (total) mg/dL Normal 0.0-1.2 [facility] Calcium 9.1 mg/dL Normal 8.6-10.2 [facility] Chloride 108 mmol/L High 98-107 [facility] CO2 21 mmol/L Low 22-29 [facility] Creatinine 1.6 mg/dL High 0.5-1.0 [facility] eGFR (black) 47 mL/min/{1.73_m2} Normal [facility] eGFR (non-black) 39 mL/min/{1.73_m2} Normal >=60 [facility] Comment on above: Result Comment: Scout yang Kidney Disease: less than 60 ml/min/1.73 sq.m. Kidney Failure: less than 15 ml/min/1.73 sq.m.Results valid for patients 18 years and older. 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 [facility] Lactic Acidon 11-05-2017 Lactate 1.0 mmol/L Normal 0.5-2.2 [facility] Lipaseon 11-05-2017 Lipase 63 U/L High 13-60 [facility] Urinalysis, reflex to micros copicon 11-05-2017 Bilirubin Ql (U) Negative Normal Negative [facility] Urine, clarity SLCLOUDY Normal Clear [facility] Urine, color Yellow Normal Straw/Yellow [facility] Urine, glucose presence Negative Normal Negative [facility] Urine, hemoglobin presence TRACE Abnormal Negative [facility] Urine, ketones presence Negative Normal Negative [facility] Urine, leukocyte esterase presence TRACE Abnormal Negative [facility] Urine, nitrite presence Positive Abnormal Negative [facility] Urine, pH 6.0 [pH] Normal 5.0-9.0 [facility] Urine, protein presence 100 mg/dL Abnormal Negative [facility] Urine, specific gravity 1.025 Normal 1.005-1.030 [facility] Urine, urobilinogen 0.2 {Faustino'U}/dL Normal < 2.0 [facility] Urine Microscopicon 11-06-19 18 Urine, bacteria in sediment MANY Abnormal [facility] Urine, epithelial cells presence in sediment FEW Normal [facility] Urine, erythrocytes 0 /uL Normal 0-2 [facility] Urine, leukocytes 10-20 Abnormal 0-5 [facility] Vital Signs Date Time Vital Sign Value Performing Clinician Facility 02-21-2025 10:04040 Body height 175.3 cm Michael Pro MD Work Phone: [facility] 02-21-2025 10:04-040 Body mass index (BMI) [Ratio] 16.41 kg/m2 Michael Pro MD Work Phone: [facility] 02-21-2025 10:04-0400 Body weight 50.4 kg Michael Pro MD Work Phone: [facility] 02-21-2025 10:04-0400 Diastolic blood pressure 92 mm[Hg] Michael Pro MD Work Phone: [facility] 02-21-2025 10:04-0400 Heart rate 66 /min Michael Pro MD Work Phone: [facility] 02-21-2025 10:04-0400 SaO2% (BldA) [Mass fraction] 99 % Michael Pro MD Work Phone: [facility] 02-21-2025 10:04-0400 Systolic blood pressure 135 mm[Hg] Michael Pro MD Work Phone: [facility] 02-06-2025 14:16-0400 Body height 175.3 cm Juany Anderson MD Work Phone: [facility] 02-06-2025 14:16-0400 Body mass index (BMI) [Ratio] 15.95 kg/m2 Juany Anderson MD Work Phone: [facility] 02-06-2025 14:16-0400 Body weight 49 kg Juany Anderson MD Work Phone: [facility] 02-06-2025 10:31-0400 Body height 175.3 cm Juan R Garcia MD Work Phone: [facility] 02-06-2025 10:31-0400 Body mass index (BMI) [Ratio] 15.65 kg/m2 Juan R Garcia MD Work Phone: [facility] 02-06-2025 10:31-0400 Body temperature 97.9 [degF] Juan R Garcia MD Work Phone: [facility] 02-06-2025 10:31-0400 Body weight 48.08 kg Juan R Garcia MD Work Phone: [facility] 02-06-2025 10:31-0400 Diastolic blood pressure 72 mm[Hg] Juan R Garcia MD Work Phone: [facility] 02-06-2025 10:31-0400 Heart rate 76 /min Juan R Garcia MD Work Phone: [facility] 02-06-2025 10:31-0400 SaO2% (BldA) [Mass fraction] 88 % Juan R Garcia MD Work Phone: [facility] 02-06-2025 10:31-0400 Systolic blood pressure 108 mm[Hg] Juan R Garcia MD Work Phone: [facility] 01-24-2025 15:57-0400 Body height 175.3 cm Pam Queden DESK REPORTER.AIR TRANSPORTATION PROVIDER Work Phone: [facility] 01-24-2025 15:57-0400 Body mass index (BMI) [Ratio] 15.8 kg/m2 Pam Queden DESK REPORTER.AIR TRANSPORTATION PROVIDER Work Phone: [facility] 01-24-2025 15:57-0400 Body temperature 98.1 [degF] Pam Queden DESK REPORTER.AIR TRANSPORTATION PROVIDER Work Phone: [facility] 01-24-2025 15:57-0400 Body weight 48.53 kg Pam Queden DESK REPORTER.AIR TRANSPORTATION PROVIDER Work Phone: [facility] 01-24-2025 15:57-0400 Diastolic blood pressure 72 mm[Hg] Pam Queden DESK REPORTER.AIR TRANSPORTATION PROVIDER Work Phone: [facility] 01-24-2025 15:57-0400 Heart rate 76 /min Pam Queden DESK REPORTER.AIR TRANSPORTATION PROVIDER Work Phone: [facility] 01-24-2025 15:57-0400 SaO2% (BldA) [Mass fraction] 98 % Pam Queden DESK REPORTER.AIR TRANSPORTATION PROVIDER Work Phone: [facility] 01-24-2025 15:57-0400 Systolic blood pressure 124 mm[Hg] Pam Queden DESK REPORTER.AIR TRANSPORTATION PROVIDER Work Phone: [facility] 01-23-2025 13:34-0400 Body height 175.3 cm Pancho Hooper MD Work Phone: [facility] 01-23-2025 13:34-0400 Body mass index (BMI) [Ratio] 15.79 kg/m2 Pancho Hooper MD Work Phone: [facility] 01-23-2025 13:34-0400 Body weight 48.5 kg Pancho Hooper MD Work Phone: [facility] 01-23-2025 13:34-0400 Diastolic blood pressure 73 mm[Hg] Pancho Hooper MD Work Phone: [facility] 01-23-2025 13:34-0400 Heart rate 57 /min Pancho Hooper MD Work Phone: [facility] 01-23-2025 13:34-0400 Systolic blood pressure 110 mm[Hg] Pancho Hooper MD Work Phone: [facility] 12-31-2024 10:26-0400 Body height 175.[address] Veronika Ferrer MD Work Phone: [facility] 12-31-2024 10:26-0400 Body mass index (BMI) [Ratio] 15.8 kg/m2 Dr. Veronika Ferrer MD Work Phone: [facility] 12-31-2024 10:26-0400 Body weight 48.[address] Veronika Ferrer MD Work Phone: [facility] 12-31-2024 10:26-0400 Diastolic blood pressure 81 mm[Hg] Dr. Veronika Ferrer MD Work Phone: [facility] 12-31-2024 10:26-0400 Respiratory rate 16 /min Dr. Veronika Ferrer MD Work Phone: [facility] 12-31-2024 10:26-0400 Systolic blood pressure 136 mm[Hg] Dr. Veronika Ferrer MD Work Phone: [facility] 12-20-2024 14:26-0400 Body height 175.3 cm Pam Yost APRN.CNP Work Phone: [facility] 12-20-2024 14:26-0400 Body mass index (BMI) [Ratio] 15.8 kg/m2 Pam Queden DESK REPORTER.AIR TRANSPORTATION PROVIDER Work Phone: [facility] 12-20-2024 14:26-0400 Body temperature 97.9 [degF] Pam Queden DESK REPORTER.AIR TRANSPORTATION PROVIDER Work Phone: [facility] 12-20-2024 14:26-0400 Body weight 48.53 kg Pam Queden DESK REPORTER.AIR TRANSPORTATION PROVIDER Work Phone: [facility] 12-20-2024 14:26-0400 Diastolic blood pressure 60 mm[Hg] Pam Queden DESK REPORTER.AIR TRANSPORTATION PROVIDER Work Phone: [facility] 12-20-2024 14:26-0400 Heart rate 77 /min Pam Queden DESK REPORTER.AIR TRANSPORTATION PROVIDER Work Phone: [facility] 12-20-2024 14:26-0400 Respiratory rate 18 /min Pam Queden DESK REPORTER.AIR TRANSPORTATION PROVIDER Work Phone: [facility] 12-20-2024 14:26-0400 SaO2% (BldA) [Mass fraction] 99 % Pam Queden DESK REPORTER.AIR TRANSPORTATION PROVIDER Work Phone: [facility] 12-20-2024 14:26-0400 Systolic blood pressure 122 mm[Hg] Pam Queden DESK REPORTER.AIR TRANSPORTATION PROVIDER Work Phone: [facility] 11-22-2024 08:54-0400 Body mass index (BMI) [Ratio] 17.25 kg/m2 Gustavo Praisler-Wood DESK REPORTER.AIR TRANSPORTATION PROVIDER Work Phone: [facility] 11-22-2024 08:54-0400 Body temperature 97 [degF] Gustavo Praisler-Wood DESK REPORTER.AIR TRANSPORTATION PROVIDER Work Phone: [facility] 11-22-2024 08:54-0400 Body weight 53 kg Gustavo Praisler-Wood DESK REPORTER.AIR TRANSPORTATION PROVIDER Work Phone: [facility] 11-22-2024 08:54-0400 Diastolic blood pressure 90 mm[Hg] Gustavo Praisler-Wood DESK REPORTER.AIR TRANSPORTATION PROVIDER Work Phone: [facility] Comment on above: checked BP x 2 11-22-2024 08:54-0400 Heart rate 78 /min Gustavo Praisler-Wood DESK REPORTER.AIR TRANSPORTATION PROVIDER Work Phone: [facility] 11-22-2024 08:54-0400 Respiratory rate 18 /min Gustavo Praisler-Wood DESK REPORTER.AIR TRANSPORTATION PROVIDER Work Phone: [facility] 11-22-2024 08:54-0400 SaO2% (BldA) [Mass fraction] 99 % Gustavo Praisler-Wood DESK REPORTER.AIR TRANSPORTATION PROVIDER Work Phone: [facility] 11-22-2024 08:54-0400 Systolic blood pressure 146 mm[Hg] Gustavo Praisler-Wood DESK REPORTER.AIR TRANSPORTATION PROVIDER Work Phone: [facility] Comment on above: checked BP x 2 11-13-2024 16:39-0400 Body temperature 98 [degF] Dr. Veronika Ferrer MD Work Phone: [facility] 11-13-2024 16:39-0400 Diastolic blood pressure 77 mm[Hg] Dr. Veronika Ferrer MD Work Phone: [facility] 11-13-2024 16:39-0400 Heart rate 79 /min Dr. Veronika Ferrer MD Work Phone: [facility] 11-13-2024 16:39-0400 Respiratory rate 17 /min Dr. Veronika Ferrer MD Work Phone: [facility] 11-13-2024 16:39-0400 SaO2% (BldA) [Mass fraction] 99 % Dr. Veronika Ferrer MD Work Phone: [facility] 11-13-2024 16:39-0400 Systolic blood pressure 120 mm[Hg] Dr. Veronika Ferrer MD Work Phone: [facility] 11-13-2024 14:34-0400 Body height 175.[address] Veronika Ferrer MD Work Phone: [facility] 11-13-2024 14:34-0400 Body mass index (BMI) [Ratio] 16.7 kg/m2 Dr. Veronika Ferrer MD Work Phone: [facility] 11-13-2024 14:34-0400 Body weight 51.[address] Veronika Ferrer MD Work Phone: [facility] 10-11-2024 01:46-0400 Body temperature 98.2 [degF] Dr. Veronika Ferrer MD Work Phone: [facility] 10-11-2024 01:46-0400 Diastolic blood pressure 101 mm[Hg] Dr. Veronika Ferrer MD Work Phone: [facility] 10-11-2024 01:46-0400 Heart rate 63 /min Dr. Veronika Ferrer MD Work Phone: [facility] 10-11-2024 01:46-0400 Respiratory rate 18 /min Dr. Veronika Ferrer MD Work Phone: [facility] 10-11-2024 01:46-0400 SaO2% (BldA) [Mass fraction] 97 % Dr. Veronika Ferrer MD Work Phone: [facility] 10-11-2024 01:46-0400 Systolic blood pressure 138 mm[Hg] Dr. Veronika Ferrer MD Work Phone: [facility] 10-10-2024 23:32-0400 Body height 175.[address] Veronika Ferrer MD Work Phone: [facility] 10-10-2024 23:32-0400 Body mass index (BMI) [Ratio] 17.3 kg/m2 Dr. Veronika Ferrer MD Work Phone: [facility] 10-10-2024 23:32-0400 Body weight 53.[address] Veronika Ferrer MD Work Phone: [facility] 09-18-2024 07:55-0400 Body height 175.3 cm Sheri Suhail DESK REPORTER.AIR TRANSPORTATION PROVIDER Work Phone: [facility] 09-18-2024 07:55-0400 Body mass index (BMI) [Ratio] 18.02 kg/m2 Sheri Suhail DESK REPORTER.AIR TRANSPORTATION PROVIDER Work Phone: [facility] 09-18-2024 07:55-0400 Body temperature 97.81 [degF] Sheri Suhail DESK REPORTER.AIR TRANSPORTATION PROVIDER Work Phone: [facility] 09-18-2024 07:55-0400 Body weight 55.34 kg Sheri Suhail DESK REPORTER.AIR TRANSPORTATION PROVIDER Work Phone: [facility] 09-18-2024 07:55-0400 Diastolic blood pressure 70 mm[Hg] Sheri Suhail DESK REPORTER.AIR TRANSPORTATION PROVIDER Work Phone: [facility] 09-18-2024 07:55-0400 Heart rate 68 /min Sheri Suhail DESK REPORTER.AIR TRANSPORTATION PROVIDER Work Phone: [facility] 09-18-2024 07:55-0400 Respiratory rate 18 /min Sheri Suhail DESK REPORTER.AIR TRANSPORTATION PROVIDER Work Phone: [facility] 09-18-2024 07:55-0400 SaO2% (BldA) [Mass fraction] 98 % Hseri Suhail DESK REPORTER.AIR TRANSPORTATION PROVIDER Work Phone: [facility] 09-18-2024 07:55-0400 Systolic blood pressure 100 mm[Hg] Sheri Suhail DESK REPORTER.AIR TRANSPORTATION PROVIDER Work Phone: [facility] 09-04-2024 18:31-0400 Body temperature 97.9 [degF] Dr. Veronika Ferrer MD Work Phone: [facility] 09-04-2024 18:31-0400 Diastolic blood pressure 76 mm[Hg] Dr. Veronika Ferrer MD Work Phone: [facility] 09-04-2024 18:31-0400 Heart rate 70 /min Dr. Veronika Ferrer MD Work Phone: [facility] 09-04-2024 18:31-0400 Respiratory rate 16 /min Dr. Veronika Ferrer MD Work Phone: [facility] 09-04-2024 18:31-0400 SaO2% (BldA) [Mass fraction] 100 % Dr. Veronika Ferrer MD Work Phone: [facility] 09-04-2024 18:31-0400 Systolic blood pressure 105 mm[Hg] Dr. Veronika eFrrer MD Work Phone: [facility] 09-04-2024 15:05-0400 Body height 175.[address] Veronika Ferrer MD Work Phone: [facility] 09-04-2024 15:05-0400 Body mass index (BMI) [Ratio] 18 kg/m2 Dr. Veronika Ferrer MD Work Phone: [facility] 09-04-2024 15:05-0400 Body weight 55.[address] Veronika Ferrer MD Work Phone: [facility] 09-03-2024 10:26-0400 Body mass index (BMI) [Ratio] 18.43 kg/m2 Kyleigh Matias APRN.AIR TRANSPORTATION PROVIDER Work Phone: [facility] 09-03-2024 10:26-0400 Body temperature 97 [degF] Kyleigh Matias APRN.AIR TRANSPORTATION PROVIDER Work Phone: [facility] 09-03-2024 10:26-0400 Body weight 56.6 kg Kyleigh Matias APRN.AIR TRANSPORTATION PROVIDER Work Phone: [facility] 09-03-2024 10:26-0400 Diastolic blood pressure 62 mm[Hg] Kyleigh Matias APRN.AIR TRANSPORTATION PROVIDER Work Phone: [facility] 09-03-2024 10:26-0400 Heart rate 90 /min Kyleigh Matias APRN.AIR TRANSPORTATION PROVIDER Work Phone: [facility] 09-03-2024 10:26-0400 Respiratory rate 16 /min Kyleigh Matias APRN.AIR TRANSPORTATION PROVIDER Work Phone: [facility] 09-03-2024 10:26-0400 SaO2% (BldA) [Mass fraction] 97 % Kyleigh Matias APRN.AIR TRANSPORTATION PROVIDER Work Phone: [facility] 09-03-2024 10:26-0400 Systolic blood pressure 90 mm[Hg] Kyleigh Matias APRN.AIR TRANSPORTATION PROVIDER Work Phone: [facility] 08-14-2024 11:29-0500 Body mass index (BMI) [Ratio] 19.2 kg/m2 Delmy Nation APRN.AIR TRANSPORTATION PROVIDER Work Phone: [facility] 08-14-2024 11:29-0500 Body weight 58.97 kg Delmy Nation APRN.AIR TRANSPORTATION PROVIDER Work Phone: [facility] 08-14-2024 11:29-0500 Diastolic blood pressure 60 mm[Hg] Delmy Nation APRN.AIR TRANSPORTATION PROVIDER Work Phone: [facility] 08-14-2024 11:29-0500 Systolic blood pressure 100 mm[Hg] Delmy Nation APRN.AIR TRANSPORTATION PROVIDER Work Phone: [facility] 07-11-2024 15:28-0500 Body height 175.3 cm Pam Yost DESK REPORTER.AIR TRANSPORTATION PROVIDER Work Phone: [facility] 07-11-2024 15:28-0500 Body mass index (BMI) [Ratio] 18.46 kg/m2 Pam Yost DESK REPORTER.AIR TRANSPORTATION PROVIDER Work Phone: [facility] 07-11-2024 15:28-0500 Body temperature 97.9 [degF] Pam Yost DESK REPORTER.AIR TRANSPORTATION PROVIDER Work Phone: [facility] 07-11-2024 15:28-0500 Body weight 56.7 kg Pam Queden DESK REPORTER.AIR TRANSPORTATION PROVIDER Work Phone: [facility] 07-11-2024 15:28-0500 Diastolic blood pressure 62 mm[Hg] Pam Queden DESK REPORTER.AIR TRANSPORTATION PROVIDER Work Phone: [facility] 07-11-2024 15:28-0500 Heart rate 79 /min Pam Queden DESK REPORTER.AIR TRANSPORTATION PROVIDER Work Phone: [facility] 07-11-2024 15:28-0500 Respiratory rate 16 /min Pam Queden DESK REPORTER.AIR TRANSPORTATION PROVIDER Work Phone: [facility] 07-11-2024 15:28-0500 SaO2% (BldA) [Mass fraction] 97 % Pam Queden DESK REPORTER.AIR TRANSPORTATION PROVIDER Work Phone: [facility] 07-11-2024 15:28-0500 Systolic blood pressure 102 mm[Hg] Pam Queden DESK REPORTER.AIR TRANSPORTATION PROVIDER Work Phone: [facility] 04-23-2024 17:28-0400 Body mass index (BMI) [Ratio] 16.34 kg/m2 Marilu Athy PA-C Work Phone: [facility] 04-23-2024 17:28-0400 Body temperature 98.29 [degF] Marilu Athy PA-C Work Phone: [facility] 04-23-2024 17:28-0400 Body weight 50.2 kg Marilu Athy PA-C Work Phone: [facility] 04-23-2024 17:28-0400 Diastolic blood pressure 64 mm[Hg] Marilu Athy PA-C Work Phone: [facility] 04-23-2024 17:28-0400 Heart rate 93 /min Marilu Athy PA-C Work Phone: [facility] 04-23-2024 17:28-0400 Respiratory rate 18 /min Marilu Athy PA-C Work Phone: [facility] 04-23-2024 17:28-0400 SaO2% (BldA) [Mass fraction] 96 % Marilu Athy PA-C Work Phone: [facility] 04-23-2024 17:28-0400 Systolic blood pressure 112 mm[Hg] Marilu Shaikhy PA-C Work Phone: [facility] 01-03-2024 14:16-0400 Body height 175.3 cm Glory Chirinos PA-C Work Phone: [facility] 01-03-2024 14:16-0400 Body mass index (BMI) [Ratio] 19.64 kg/m2 Glory Chirinos PA-C Work Phone: [facility] 01-03-2024 14:16-0400 Body weight 60.33 kg Glory Chirinos PA-C Work Phone: [facility] 01-03-2024 14:16-0400 Diastolic blood pressure 78 mm[Hg] Glory Chirinos PA-C Work Phone: [facility] 01-03-2024 14:16-0400 Heart rate 63 /min Glory Chirinos PA-C Work Phone: [facility] 01-03-2024 14:16-0400 Systolic blood pressure 112 mm[Hg] Glory Chirinos PA-C Work Phone: [facility] 11-23-2023 14:41-0400 Body mass index (BMI) [Ratio] 18.88 kg/m2 Nellie Mas DESK REPORTER.AIR TRANSPORTATION PROVIDER Work Phone: [facility] 11-23-2023 14:41-0400 Body temperature 97.2 [degF] Nellie Tg DESK REPORTER.AIR TRANSPORTATION PROVIDER Work Phone: [facility] 11-23-2023 14:41-0400 Body weight 58 kg Nellie Tg DESK REPORTER.AIR TRANSPORTATION PROVIDER Work Phone: [facility] 11-23-2023 14:41-0400 Diastolic blood pressure 87 mm[Hg] Nellie Mas DESK REPORTER.AIR TRANSPORTATION PROVIDER Work Phone: [facility] 11-23-2023 14:41-0400 Heart rate 86 /min Nellie Mas DESK REPORTER.AIR TRANSPORTATION PROVIDER Work Phone: [facility] 11-23-2023 14:41-0400 Respiratory rate 16 /min Nellie Mas DESK REPORTER.AIR TRANSPORTATION PROVIDER Work Phone: [facility] 11-23-2023 14:41-0400 SaO2% (BldA) [Mass fraction] 99 % Nellie Mas DESK REPORTER.AIR TRANSPORTATION PROVIDER Work Phone: [facility] 11-23-2023 14:41-0400 Systolic blood pressure 133 mm[Hg] Nellie Mas DESK REPORTER.AIR TRANSPORTATION PROVIDER Work Phone: [facility] 11-12-2023 11:49-0400 Body mass index (BMI) [Ratio] 19.47 kg/m2 Krislyn Aberegg PA Work Phone: [facility] 11-12-2023 11:49-0400 Body temperature 98.1 [degF] Krislyn Aberegg PA Work Phone: [facility] 11-12-2023 11:49-0400 Body weight 59.8 kg Krislyn Aberegg PA Work Phone: [facility] 11-12-2023 11:49-0400 Diastolic blood pressure 62 mm[Hg] Krislyn Aberegg PA Work Phone: [facility] 11-12-2023 11:49-0400 Heart rate 116 /min Krislyn Aberegg PA Work Phone: [facility] 11-12-2023 11:49-0400 Respiratory rate 20 /min Krislyn Aberegg PA Work Phone: [facility] 11-12-2023 11:49-0400 SaO2% (BldA) [Mass fraction] 94 % Krislyn Aberegg PA Work Phone: [facility] 11-12-2023 11:49-0400 Systolic blood pressure 102 mm[Hg] Giacomo RODRIGUEZ Work Phone: [facility] 09-09-2023 15:40-0400 Body temperature 98.1 [degF] [facility] 09-09-2023 15:40-0400 Diastolic blood pressure 72 mm[Hg] [facility] 09-09-2023 15:40-0400 Heart rate 68 /min [facility] 09-09-2023 15:40-0400 Respiratory rate 16 /min [facility] 09-09-2023 15:40-0400 SaO2% (BldA) [Mass fraction] 95 % [facility] 09-09-2023 15:40-0400 Systolic blood pressure 117 mm[Hg] [facility] 09-09-2023 13:19-0400 Body height 2106.17 cm [facility] 09-09-2023 13:19-0400 Body mass index (BMI) [Ratio] 0 kg/m2 [facility] 09-09-2023 13:19-0400 Body weight 2.52 kg [facility] 08-03-2023 18:00-0500 Diastolic blood pressure 94 mm[Hg] [facility] 08-03-2023 18:00-0500 Heart rate 92 /min [facility] 08-03-2023 18:00-0500 Respiratory rate 18 /min [facility] 08-03-2023 18:00-0500 SaO2% (BldA) [Mass fraction] 97 % [facility] 08-03-2023 18:00-0500 Systolic blood pressure 146 mm[Hg] [facility] 08-03-2023 08:40-0500 Body height 175.26 cm [facility] 08-03-2023 08:40-0500 Body mass index (BMI) [Ratio] 18.6 kg/m2 [facility] 08-03-2023 08:40-0500 Body temperature 98.2 [degF] [facility] 08-03-2023 08:40-0500 Body weight 57.3 kg [facility] 06-08-2023 08:54-0500 Body weight 63.05 kg Mayuri Makenna PA-C Work Phone: [facility] 06-08-2023 08:54-0500 Diastolic blood pressure 88 mm[Hg] Mayuri Makenna PA-C Work Phone: [facility] 06-08-2023 08:54-0500 Heart rate 96 /min Mayuri Makenna PA-C Work Phone: [facility] 06-08-2023 08:54-0500 Respiratory rate 14 /min Mayuri Makenna PA-C Work Phone: [facility] 06-08-2023 08:54-0500 SaO2% (BldA) [Mass fraction] 97 % Mayuri Makenna PA-C Work Phone: [facility] 06-08-2023 08:54-0500 Systolic blood pressure 120 mm[Hg] Mayuri Makenna PA-C Work Phone: [facility] 04-19-2023 08:48-0400 Body height 175.3 cm Aneta Wall MD Work Phone: [facility] 04-19-2023 08:48-0400 Body weight 64.59 kg Aneta Wall MD Work Phone: [facility] 04-19-2023 08:48-0400 Diastolic blood pressure 90 mm[Hg] Aneta Wall MD Work Phone: [facility] 04-19-2023 08:48-0400 Heart rate 86 /min Aneta Wall MD Work Phone: [facility] 04-19-2023 08:48-0400 Respiratory rate 16 /min Aneta Wall MD Work Phone: [facility] 04-19-2023 08:48-0400 SaO2% (BldA) [Mass fraction] 93 % Aneta Wall MD Work Phone: [facility] 04-19-2023 08:48-0400 Systolic blood pressure 110 mm[Hg] Aneta Wall MD Work Phone: [facility] 04-05-2023 07:28-0400 Body weight 63.78 kg Bethany Hinojosajaylen PA-C Work Phone: [facility] 04-05-2023 07:28-0400 Diastolic blood pressure 77 mm[Hg] Bethanyasif Hinojosaer PA-C Work Phone: [facility] 04-05-2023 07:28-0400 Heart rate 77 /min Bethanyasif Hinojosaer PA-C Work Phone: [facility] 04-05-2023 07:28-0400 Respiratory rate 16 /min Bethanyasif Hinojosaer PA-C Work Phone: [facility] 04-05-2023 07:28-0400 SaO2% (BldA) [Mass fraction] 97 % Bethanyasif Hinojosaer PA-C Work Phone: [facility] 04-05-2023 07:28-0400 Systolic blood pressure 118 mm[Hg] Bethanyasif Hinojosaer PA-C Work Phone: [facility] 04-03-2023 09:50-0400 Body weight 63.96 kg Mabel Oshea DESK REPORTER.CNM Work Phone: [facility] 04-03-2023 09:50-0400 Diastolic blood pressure 62 mm[Hg] Mabel Oshea DESK REPORTER.CNM Work Phone: [facility] 04-03-2023 09:50-0400 Systolic blood pressure 92 mm[Hg] Mabel Oshea DESK REPORTER.CNM Work Phone: [facility] 03-03-2023 11:32-0400 Body height 175.3 cm Solomon Judd DO Work Phone: [facility] 03-03-2023 11:32-0400 Body mass index (BMI) [Ratio] 21.12 kg/m2 Solomon Judd DO Work Phone: [facility] 03-03-2023 11:32-0400 Body temperature 97.7 [degF] Solomon Judd DO Work Phone: [facility] 03-03-2023 11:32-0400 Body weight 64.86 kg Solomon Judd DO Work Phone: [facility] 03-03-2023 11:32-0400 Diastolic blood pressure 72 mm[Hg] Solomon Judd DO Work Phone: [facility] 03-03-2023 11:32-0400 Heart rate 69 /min Solomon Judd DO Work Phone: [facility] 03-03-2023 11:32-0400 Systolic blood pressure 111 mm[Hg] Solomon Judd DO Work Phone: [facility] 03-01-2023 15:44-0400 Body height 175.3 cm Solomon Judd DO Work Phone: [facility] 03-01-2023 15:44-0400 Body mass index (BMI) [Ratio] 21.56 kg/m2 Solomon Judd DO Work Phone: [facility] 03-01-2023 15:44-0400 Body weight 66.22 kg Solomon Judd DO Work Phone: [facility] 10-25-2022 16:03-0400 Diastolic blood pressure 69 mm[Hg] Solomon Judd DO Work Phone: [facility] 10-25-2022 16:03-0400 Heart rate 96 /min Solomon Judd DO Work Phone: [facility] 10-25-2022 16:03-0400 Systolic blood pressure 96 mm[Hg] Solomon Judd DO Work Phone: [facility] 10-25-2022 15:36-0400 Body height 175.3 cm Solomon Judd DO Work Phone: [facility] 10-25-2022 15:36-0400 Body mass index (BMI) [Ratio] 21.56 kg/m2 Solomon Judd DO Work Phone: [facility] 10-25-2022 15:36-0400 Body temperature 98.01 [degF] Solomon Martinezbarrishi DO Work Phone: [facility] 10-25-2022 15:36-0400 Body weight 66.22 kg Solomon Martinezbarrishi DO Work Phone: [facility] 10-13-2022 11:50-0400 Body height 175.3 cm Regulo Pena APRN - AIR TRANSPORTATION PROVIDER Work Phone: [facility] 10-13-2022 11:50-0400 Body mass index (BMI) [Ratio] 20.82 kg/m2 Regulo Sir Jairo COPE - AIR TRANSPORTATION PROVIDER Work Phone: [facility] 10-13-2022 11:50-0400 Body temperature 97.5 [degF] Regulo Sir Jairo RODRIGUEZN - AIR TRANSPORTATION PROVIDER Work Phone: [facility] 10-13-2022 11:50-0400 Body weight 63.96 kg Regulo Sir Jairo RODRIGUEZN - AIR TRANSPORTATION PROVIDER Work Phone: [facility] 10-13-2022 11:50-0400 Diastolic blood pressure 96 mm[Hg] Regulo Sir Jairo RODRIGUEZN - AIR TRANSPORTATION PROVIDER Work Phone: [facility] 10-13-2022 11:50-0400 Heart rate 85 /min Regulo Sir Jairo RODRIGUEZN - AIR TRANSPORTATION PROVIDER Work Phone: [facility] 10-13-2022 11:50-0400 SaO2% (BldA) [Mass fraction] 96 % Regulo Sir Jairo RODRIGUEZN - AIR TRANSPORTATION PROVIDER Work Phone: [facility] 10-13-2022 11:50-0400 Systolic blood pressure 131 mm[Hg] Regulo Sir Jairo RODRIGUEZN - AIR TRANSPORTATION PROVIDER Work Phone: [facility] 10-11-2022 15:57-0400 Body height 175.3 cm Solomon Martinezbarrishi DO Work Phone: [facility] 10-11-2022 15:57-0400 Body mass index (BMI) [Ratio] 21.77 kg/m2 Solomon Judd DO Work Phone: [facility] 10-11-2022 15:57-0400 Body temperature 98.01 [degF] Solomon Judd DO Work Phone: [facility] 10-11-2022 15:57-0400 Body weight 66.86 kg Solomon Judd DO Work Phone: [facility] 10-11-2022 15:57-0400 Diastolic blood pressure 90 mm[Hg] Solomon Judd DO Work Phone: [facility] 10-11-2022 15:57-0400 Heart rate 65 /min Solomon Judd DO Work Phone: [facility] 10-11-2022 15:57-0400 Systolic blood pressure 130 mm[Hg] Solomon Judd DO Work Phone: [facility] 09-01-2022 11:57-0500 Body height 175.3 cm Solomon Judd DO Work Phone: [facility] 09-01-2022 11:57-0500 Body mass index (BMI) [Ratio] 21.27 kg/m2 Solomon Judd DO Work Phone: [facility] 09-01-2022 11:57-0500 Body temperature 97.5 [degF] Solomon Judd DO Work Phone: [facility] 09-01-2022 11:57-0500 Body weight 65.32 kg Solomon Judd DO Work Phone: [facility] 09-01-2022 11:57-0500 Diastolic blood pressure 72 mm[Hg] Solomon Judd DO Work Phone: [facility] 09-01-2022 11:57-0500 Heart rate 83 /min Solomon Judd DO Work Phone: [facility] 09-01-2022 11:57-0500 Systolic blood pressure 111 mm[Hg] Solomon Martinezbarrishi DO Work Phone: [facility] 06-22-2022 15:27-0500 Body temperature 98 [degF] Solomon Judd Work Phone: [facility] Work Phone: 06-22-2022 15:27-0500 Body weight 64.41 kg Solomon Judd Work Phone: [facility] Work Phone: 06-22-2022 15:27-0500 Diastolic blood pressure 68 mm[Hg] Solomon Judd Work Phone: [facility] Work Phone: 06-22-2022 15:27-0500 Heart rate 106 /min Solomon Judd Work Phone: [facility] Work Phone: 06-22-2022 15:27-0500 SaO2% (BldA) [Mass fraction] 97 % Solomon Judd Work Phone: [facility] Work Phone: 06-22-2022 15:27-0500 Systolic blood pressure 102 mm[Hg] Solomon John Marcelorishi Work Phone: [facility] Work Phone: 03-16-2022 14:55-0400 Body height 175.3 cm Talib Sharpe Jr., MD Work Phone: [facility] 03-16-2022 14:55-0400 Body weight 64.41 kg Talib Sharpe Jr., MD Work Phone: [facility] 03-16-2022 14:55-0400 Respiratory rate 16 /min Talib Sharpe Jr., MD Work Phone: [facility] 10-24-2021 10:22-0400 Body temperature 97.8 [degF] Dr. Veronika Ferrer Work Phone: [facility] Work Phone: 10-24-2021 10:22-0400 Diastolic blood pressure 55 mm[Hg] Dr. Veronika Ferrer Work Phone: [facility] Work Phone: 10-24-2021 10:22-0400 Heart rate 70 /min Dr. Veronika Ferrer Work Phone: [facility] Work Phone: 10-24-2021 10:22-0400 Respiratory rate 16 /min Dr. Veronika Ferrer Work Phone: [facility] Work Phone: 10-24-2021 10:22-0400 SaO2% (BldA) [Mass fraction] 99 % Dr. Veronika Ferrer Work Phone: [facility] Work Phone: 10-24-2021 10:22-0400 Systolic blood pressure 92 mm[Hg] Dr. Veronika Ferrer Work Phone: [facility] Work Phone: 10-22-2021 15:15-0400 Body height 175.[address] Veronika Ferrer Work Phone: [facility] Work Phone: 10-22-2021 15:15-0400 Body weight 49.[address] Veronika Ferrer Work Phone: [facility] Work Phone: 10-21-2021 14:26-0400 Body mass index (BMI) [Ratio] 16 kg/m2 Dr. Veronika Ferrer Work Phone: [facility] Work Phone: 10-21-2021 13:50-0400 Body temperature 97.8 [degF] Dr. Veronika Ferrer Work Phone: [facility] Work Phone: 10-21-2021 13:50-0400 Diastolic blood pressure 87 mm[Hg] Dr. Veronika Ferrer Work Phone: [facility] Work Phone: 10-21-2021 13:50-0400 Heart rate 111 /min Dr. Veronika Ferrer Work Phone: [facility] Work Phone: 10-21-2021 13:50-0400 Respiratory rate 16 /min Dr. Veronika Ferrer Work Phone: [facility] Work Phone: 10-21-2021 13:50-0400 SaO2% (BldA) [Mass fraction] 100 % Dr. Veronika Ferrer Work Phone: [facility] Work Phone: 10-21-2021 13:50-0400 Systolic blood pressure 108 mm[Hg] Dr. Veronika Ferrer Work Phone: [facility] Work Phone: 10-21-2021 12:48-0400 Body height 175.[address] Veronika Ferrer Work Phone: [facility] Work Phone: 10-21-2021 12:48-0400 Body mass index (BMI) [Ratio] 16.5 kg/m2 Dr. Veronika Ferrer Work Phone: [facility] Work Phone: 10-21-2021 12:48-0400 Body weight 50.[address] Veronika Ferrer Work Phone: [facility] Work Phone: 09-03-2021 22:36-0500 Respiratory rate 16 /min Dr. Veronika Ferrer Work Phone: [facility] Work Phone: 09-03-2021 20:44-0500 Diastolic blood pressure 79 mm[Hg] Dr. Veronika Ferrer Work Phone: [facility] Work Phone: 09-03-2021 20:44-0500 Heart rate 95 /min Dr. Veronika Ferrer Work Phone: [facility] Work Phone: 09-03-2021 20:44-0500 SaO2% (BldA) [Mass fraction] 100 % Dr. Veronika Ferrer Work Phone: [facility] Work Phone: 09-03-2021 20:44-0500 Systolic blood pressure 117 mm[Hg] Dr. Veronika Ferrer Work Phone: [facility] Work Phone: 09-03-2021 10:53-0500 Body mass index (BMI) [Ratio] 18.3 kg/m2 Dr. Veronika Ferrer Work Phone: [facility] Work Phone: 09-03-2021 10:53-0500 Body temperature 97.9 [degF] Dr. Veronika Ferrer Work Phone: [facility] Work Phone: 09-03-2021 10:53-0500 Body weight 56.[address] Veronika Ferrer Work Phone: [facility] Work Phone: 08-12-2021 11:30-0500 Body mass index (BMI) [Ratio] 19.9 kg/m2 Dr. Veronika Ferrer Work Phone: [facility] Work Phone: 08-12-2021 11:30-0500 Body temperature 96.1 [degF] Dr. Veronika Ferrer Work Phone: [facility] Work Phone: 08-12-2021 11:30-0500 Body weight 61.[address] Veronika Ferrer Work Phone: [facility] Work Phone: 08-12-2021 11:30-0500 Diastolic blood pressure 89 mm[Hg] Dr. Veronika Ferrer Work Phone: [facility] Work Phone: 08-12-2021 11:30-0500 Heart rate 118 /min Dr. Veronika Ferrer Work Phone: [facility] Work Phone: 08-12-2021 11:30-0500 Respiratory rate 16 /min Dr. Veronika Ferrer Work Phone: [facility] Work Phone: 08-12-2021 11:30-0500 SaO2% (BldA) [Mass fraction] 97 % Dr. Veroniak Ferrer Work Phone: [facility] Work Phone: 08-12-2021 11:30-0500 Systolic blood pressure 121 mm[Hg] Dr. Veronika Ferrer Work Phone: [facility] Work Phone: 07-26-2021 04:34-0500 Diastolic blood pressure 65 mm[Hg] Dr. Veronika Ferrer Work Phone: [facility] Work Phone: 07-26-2021 04:34-0500 Heart rate 78 /min Dr. Veronika Ferrer Work Phone: [facility] Work Phone: 07-26-2021 04:34-0500 Respiratory rate 16 /min Dr. Veronika Ferrer Work Phone: [facility] Work Phone: 07-26-2021 04:34-0500 SaO2% (BldA) [Mass fraction] 99 % Dr. Veronika Ferrer Work Phone: [facility] Work Phone: 07-26-2021 04:34-0500 Systolic blood pressure 120 mm[Hg] Dr. Veronika Ferrer Work Phone: [facility] Work Phone: 07-25-2021 17:46-0500 Body mass index (BMI) [Ratio] 20.2 kg/m2 Dr. Veronika Ferrer Work Phone: [facility] Work Phone: 07-25-2021 17:46-0500 Body temperature 98 [degF] Dr. Veronika Ferrer Work Phone: [facility] Work Phone: 07-25-2021 17:46-0500 Body weight 62.[address] Veronika Ferrer Work Phone: [facility] Work Phone: 07-01-2021 15:10-0500 Body temperature 98.2 [degF] Dr. Veronika Ferrer Work Phone: [facility] Work Phone: 07-01-2021 15:10-0500 Diastolic blood pressure 78 mm[Hg] Dr. Veronika Ferrer Work Phone: [facility] Work Phone: 07-01-2021 15:10-0500 Heart rate 77 /min Dr. Veronika Ferrer Work Phone: [facility] Work Phone: 07-01-2021 15:10-0500 Respiratory rate 16 /min Dr. Veronika Ferrer Work Phone: [facility] Work Phone: 07-01-2021 15:10-0500 SaO2% (BldA) [Mass fraction] 100 % Dr. Veronika Ferrer Work Phone: [facility] Work Phone: 07-01-2021 15:10-0500 Systolic blood pressure 110 mm[Hg] Dr. Veronika Ferrer Work Phone: [facility] Work Phone: 07-01-2021 13:50-0500 Body mass index (BMI) [Ratio] 21.4 kg/m2 Dr. Veronika Ferrer Work Phone: [facility] Work Phone: 07-01-2021 13:50-0500 Body weight 65.[address] Veronika Ferrer Work Phone: [facility] Work Phone: 06-23-2021 12:51-0500 Body mass index (BMI) [Ratio] 21.1 kg/m2 Dr. Veronika Ferrer Work Phone: [facility] Work Phone: 06-23-2021 12:51-0500 Body temperature 97.8 [degF] Dr. Veronika Ferrer Work Phone: [facility] Work Phone: 06-23-2021 12:51-0500 Body weight 64.[address] Veronika Ferrer Work Phone: [facility] Work Phone: 06-23-2021 12:51-0500 Diastolic blood pressure 62 mm[Hg] Dr. Veronika Ferrer Work Phone: [facility] Work Phone: 06-23-2021 12:51-0500 Heart rate 69 /min Dr. Veronika Ferrer Work Phone: [facility] Work Phone: 06-23-2021 12:51-0500 Respiratory rate 16 /min Dr. Veronika Ferrer Work Phone: [facility] Work Phone: 06-23-2021 12:51-0500 SaO2% (BldA) [Mass fraction] 98 % Dr. Veronika Ferrer Work Phone: [facility] Work Phone: 06-23-2021 12:51-0500 Systolic blood pressure 108 mm[Hg] Dr. Veronika Ferrer Work Phone: [facility] Work Phone: 01-15-2020 15:41-0400 BP Diastolic 83 mm[Hg] Akin Rahman [facility] , [place] 01-15-2020 15:41-0400 BP Systolic 110 mm[Hg] [facility] [place] 01-15-2020 15:41-0400 Pulse (Heart Rate) 59 /min [facility] 01-15-2020 15:41-0400 Pulse Oximetry 100 % [facility] [place] 01-15-2020 15:41-0400 Respiratory Rate 16 /min [facility] [place] 01-15-2020 13:23-0400 BMI (Body Mass Index) 18.16 kg/m2 [facility] 01-15-2020 13:23-0400 Body Temperature 97.7 [degF] [facility] [place] 01-15-2020 13:23-0400 Body weight 55.79 kg Akin [facility] , [place] 01-15-2020 13:23-0400 Height 175.3 cm Akin [facility] , [place] 12-06-2019 13:00-0400 BP Diastolic 76 mm[Hg] [facility] , [place] 12-06-2019 13:00-0400 BP Systolic 108 mm[Hg] [facility] [place] 12-06-2019 13:00-0400 Pulse (Heart Rate) 66 /min Rodri Arrington [facility], [place] 12-06-2019 13:00-0400 Respiratory Rate 20 /min Rodri Arrington [facility], [place] 12-06-2019 12:45-0400 BMI (Body Mass Index) 17.72 kg/m2 [facility], [place] 12-06-2019 12:45-0400 Body weight 54.43 kg [facility] , [place] Encounters Encounter Date Encounter Type Care Provider Facility Start: 03-18-2025 Encounter for other preprocedural examination [facility] Start: 03-18-2025 ambulatory [facility] Facility [facility] Start: 03-18-2025 End: 03-18-2025 ambulatory [facility] Facility:[facility] Start: 03-12-2025 End: 03-12-2025 Patient encounter procedure Ashli Mckeonvlad [employer]ONGAIR TRANSPORTATION PROVIDER Work Phone: General Surgery Comment on above: Biliary colic (Prima ry Dx) Start: 03-12-2025 End: 03-12-2025 ambulatory ASHLI BLAIR Facility:[facility] Start: 03-06-2025 End: 03-07-2025 Telephone encounter Pam Yost APRN.CNP Work Phone: [facility] Comment on above: Electronic Communica tion (Medical source assessment form ) Patient Update Start: 02-26-2025 End: 02-27-2025 Telephone encounter Michael Pro MD Work Phone: General Surgery Comment on above: Appointment (Post Op ) Start: 02-25-2025 End: 02-25-2025 ambulatory PAM YOST [facility] Start: 02-24-2025 End: 02-24-2025 ambulatory Deb Cummins RN [employer] Start: 02-24-2025 End: 02-24-2025 Patient encounter procedure Deb Cummins RN [employer] Comment on above: Clinical Update; Inf ormation Start: 02-21-2025 End: 02-26-2025 Telephone encounter Michael Pro MD Work Phone: General Surgery Start: 02-21-2025 End: 02-21-2025 Patient encounter procedure Michael Pro MD Work Phone: General Surgery Comment on above: Biliary colic (Prima ry Dx); Stage 3 chronic kidney disease, unspecified whether stage 3a or 3b CKD (HCC); Personal history of other malignant neoplasms of lymphoid, hematopoietic and related tissues; Allergic rhinitis due to animal (cat) (dog) hair and dander Start: 02-21-2025 End: 02-21-2025 ambulatory MICHAEL PRO Facility:[facility] Start: 02-18-2025 End: 02-18-2025 Telephone encounter Juany Anderson MD Work Phone: Urology Comment on above: Surgical Followup Start: 02-18-2025 End: 02-18-2025 ambulatory JUANY ANDERSON Facility:[facility] Start: 02-17-2025 End: 02-17-2025 Subsequent hospital visit by physician [facility] Work Phone: Molecular Imaging Comment on above: Hydronephrosis, unsp ecified hydronephrosis type [N13.30] Start: 02-17-2025 End: 02-21-2025 ambulatory Pam Yost APRN.AIR TRANSPORTATION PROVIDER Work Phone: [facility] Comment on above: Disability paperwork Start: 02-17-2025 End: 02-27-2025 Telephone encounter Pam Yost APRN.AIR TRANSPORTATION PROVIDER Work Phone: [facility] Comment on above: Release Of Medical R ecords ([employer] Start: 02-10-2025 End: 02-10-2025 ambulatory LENORA HENNING Facility:[facility] Start: 02-10-2025 End: 02-10-2025 Admission to same day surgery center Lenora Henning MD Work Phone: General Surgery Comment on above: Lower abdominal pain ; Abnormal biliary HIDA scan; Abnormal gallbladder ultrasound Start: 02-10-2025 End: 02-10-2025 Telemedicine consultation with patient Lenora Henning MD Work Phone: General Surgery Start: 02-06-2025 End: 02-06-2025 Patient encounter procedure Juany Anderson MD Work Phone: Urology Comment on above: Hydronephrosis, unsp ecified hydronephrosis type (Primary Dx); Solitary kidney, congenital; Congenital solitary kidney; Hydronephrosis of left kidney Start: 02-06-2025 End: 02-06-2025 ambulatory JUANY ANDERSON Facility:[facility] Start: 02-06-2025 End: 02-06-2025 Patient encounter procedure Juan R Garcia MD Work Phone: Hematology/Oncology Start: 02-06-2025 End: 02-06-2025 ambulatory Juan R Garcia MD Work Phone: Hematology/Oncology Comment on above: Hodgkin lymphoma of lymph nodes of multiple regions, unspecified Hodgkin lymphoma type (HCC) (Primary Dx); Unintentional weight loss of more than 10 pounds in 90 days; History of Hodgkin's lymphoma Start: 01-27-2025 End: 01-27-2025 Telephone encounter Juan R Garcia MD Work Phone: Hematology/Oncology Comment on above: New Patient Start: 01-24-2025 End: 01-24-2025 Patient encounter procedure Pam Yost APRN.CNP Work Phone: [facility] Comment on above: Unintentional weight loss of more than 10 pounds in 90 days (Primary Dx); Hypothyroidism, unspecified type; Gallbladder pain; Gallbladder sludge; History of Hodgkin's lymphoma; Congenital solitary kidney; Hydronephrosis of left kidney Start: 01-24-2025 End: 01-24-2025 ambulatory PAM YOST Facility:[facility] Start: 01-23-2025 End: 01-23-2025 Patient encounter procedure Pancho Hooper MD Work Phone: Kidney Medicine [facility] Comment on above: Stage 3 chronic kidn ey disease, unspecified whether stage 3a or 3b CKD (HCC) (Primary Dx); Congenital solitary kidney; Screening for genitourinary condition; Acute kidney injury; Hydronephrosis of left kidney; Substance abuse (HCC); Metabolic acidosis; Hypokalemia; Proteinuria, unspecified type Start: 01-23-2025 End: 01-27-2025 ambulatory Romain Vail MD Work Phone: Kidney Medicine [facility] Start: 01-21-2025 ambulatory PAM YOST Facili ty:[facility] Start: 01-20-2025 End: 01-20-2025 Telephone encounter Pam Yost DESK REPORTER.AIR TRANSPORTATION PROVIDER Work Phone: [facility] Comment on above: Lab Orders Start: 01-16-2025 End: 01-16-2025 ambulatory Pam Yost SAND FILLER-C Work Phone: -Nuclear Medicine [facility] Start: 01-16-2025 End: 01-16-2025 Patient encounter procedure Mayuri Prado SAND FILLER-C -Nuclear Medicine [facility] Work Phone: Start: 01-16-2025 End: 01-16-2025 ambulatory Mayuri Johan Facility:[facility] Start: 01-03-2025 End: 01-03-2025 ambulatory Pam Yost SAND FILLER-C Work Phone: -Ultrasound [facility] Start: 01-03-2025 End: 01-03-2025 Patient encounter procedure Mayuri Prado SAND FILLER-C -Ultrasound [facility] Work Phone: Start: 01-03-2025 End: 01-03-[facility] Start: 12-31-2024 End: 01-01-2025 Follow-up encounter Pam Yost DESK REPORTER.AIR TRANSPORTATION PROVIDER Work Phone: [facility] Comment on above: Xray Results Start: 12-31-2024 ambulatory PAM YOST Facili ty:[facility] Start: 12-31-2024 End: 12-31-2024 Subsequent hospital visit by physician [facility] Work Phone: Radiology Comment on above: Unintentional weight loss of more than 10 pounds in 90 days [R63.4] Start: 12-31-2024 End: 12-31-2024 Patient encounter procedure Mayuri TAYLOR -[facility] Work Phone: Start: 12-31-2024 End: 12-31-[address] Veronika Ferrer MD Work Phone: [facility] Start: 12-22-2024 End: 01-28-2025 Follow-up encounter Pam Yost APRN.AIR TRANSPORTATION PROVIDER Work Phone: [facility] Comment on above: Results Start: 12-20-2024 End: 12-20-2024 ambulatory PAM Alvaro [facility] Facility[facility] Start: 12-20-2024 End: 12-20-2024 ambulatory [facility] Alvaro [facility] Facility[facility] Start: 12-20-2024 End: 12-20-2024 Patient encounter procedure Pam Yost APRN.AIR TRANSPORTATION PROVIDER Work Phone: [facility] Comment on above: Unintentional weight loss of more than 10 pounds in 90 days (Primary Dx); Hypothyroidism, unspecified type; Intractable chronic migraine without aura and without status migrainosus; Congenital solitary kidney; Stage 3 chronic kidney disease, unspecified whether stage 3a or 3b CKD (HCC); Chronic hepatitis C without hepatic coma (HCC); Screening for diabetes mellitus; Hx of adenomatous polyp of colon Start: 11-23-2024 End: 11-23-2024 Follow-up encounter Thaddeus Shell APRN.AIR TRANSPORTATION PROVIDER Work Phone: [facility] Start: 11-22-2024 End: 11-22-2024 Patient encounter procedure Gustavo Hamron APRN.AIR TRANSPORTATION PROVIDER Work Phone: [facility] Comment on above: Frequency of urinati on (Primary Dx); Left flank pain; Hematuria, unspecified type; Nausea; Kidney disease Start: 11-22-2024 End: 11-22-2024 [facility] Start: 11-13-2024 End: 11-13-2024 Emergency department patient visit Dr. Veronika Ferrer MD Work Phone: -Emergency Department Work Phone: Start: 11-13-2024 End: 11-13-2024 ambulatory PAM YOST Facility:[facility] Start: 10-25-2024 End: 10-25-2024 Telephone encounter Pam Yost DESK REPORTER.AIR TRANSPORTATION PROVIDER Work Phone: [facility] Comment on above: Orders Start: 10-10-2024 End: 10-11-2024 Emergency department patient visit Dr. Veronika Ferrer MD Work Phone: -Emergency Department Work Phone: Start: 09-18-2024 End: 09-18-2024 ambulatory SHERI ALEJANDRO Facility:[facility] Start: 09-18-2024 End: 09-18-2024 Patient encounter procedure Sheri Alejandro DESK REPORTER.AIR TRANSPORTATION PROVIDER Work Phone: [facility] Comment on above: Nausea and vomiting, unspecified vomiting type (Primary Dx); Left flank pain; Elevated serum creatinine Start: 09-17-2024 End: 09-20-2024 ambulatory Pam Yost DESK REPORTER.AIR TRANSPORTATION PROVIDER Work Phone: [facility] Comment on above: Kidney doctor Start: 09-17-2024 End: 09-18-2024 Telephone encounter Pam Yost DESK REPORTER.AIR TRANSPORTATION PROVIDER Work Phone: [facility] Comment on above: Patient Question Start: 09-04-2024 End: 09-04-2024 Emergency department patient visit Dr. Veronika Ferrer MD Work Phone: -Emergency Department Work Phone: Start: 09-04-2024 End: 09-04-2024 Follow-up encounter Nellie Mas DESK REPORTER.AIR TRANSPORTATION PROVIDER Work Phone: [facility] Start: 09-03-2024 End: 09-03-2024 ambulatory Abdulaziz Santos RN [employer] Comment on above: UTI Start: 09-03-2024 End: 09-03-2024 Patient encounter procedure Kyleigh Matias APRN.AIR TRANSPORTATION PROVIDER Work Phone: [facility] Comment on above: Acute cystitis witho ut hematuria (Primary Dx) Start: 08-14-2024 End: 08-14-2024 ambulatory DELMY NATION Facility:[facility] Start: 08-14-2024 End: 08-14-2024 Patient encounter procedure Delmy Nation APRN.AIR TRANSPORTATION PROVIDER Work Phone: OB/Gynecology Comment on above: Skin cyst (Primary D x) Start: 07-11-2024 End: 07-11-2024 Patient encounter procedure Pam Yost APRN.AIR TRANSPORTATION PROVIDER Work Phone: [facility] Comment on above: Hypothyroidism, unsp ecified type (Primary Dx); Intractable chronic migraine without aura and without status migrainosus; Moderate persistent asthma without complication; Congenital solitary kidney; Tobacco use disorder; Drug abuse in remission (HCC); Bipolar 1 disorder (HCC); Generalized anxiety disorder; Herpes simplex disease; History of Hodgkin's lymphoma Start: 07-11-2024 End: 07-11-2024 ambulatory PAM YOST Facility:[facility] Start: 05-16-2024 End: 05-21-2024 Telephone encounter Giuliana BONNER Navigation Start: 05-10-2024 End: 05-10-2024 ambulatory Bethany Gil PA-C Work Phone: Neurology Comment on above: Hypothyroidism, unsp ecified type (Primary Dx); Intractable chronic migraine without aura and without status migrainosus Start: 05-10-2024 End: 05-10-2024 Telemedicine consultation with patient Bethany Gil PA-C Work Phone: Neurology Start: 05-10-2024 End: 05-10-2024 Telephone encounter [address] [place] Comment on above: Orders Insurance Authorizat ion ([employer]) Start: 05-09-2024 End: 05-10-2024 Refill Delmy Nation APRN.AIR TRANSPORTATION PROVIDER Work Phone: OB/Gynecology Comment on above: Refill Request Start: 04-23-2024 End: 04-23-2024 Subsequent hospital visit by physician Yecenia Counts Include [address] Jules Work Phone: Radiology Comment on above: Wheezing [R06.2] Start: 04-23-2024 End: 04-23-2024 ambulatory VERONIKA FERRER Facility:[facility] Start: 04-23-2024 End: 04-23-2024 Patient encounter procedure Marilu Raya PA-C Work Phone: [facility] Comment on above: Bronchitis (Primary Dx); Wheezing Start: 04-08-2024 End: 04-08-2024 ambulatory [facility] Start: 04-04-2024 End: 04-04-2024 Patient encounter procedure Manuel Coy APRN.CNP Work Phone: Neurology Comment on above: No-show for appointm ent (Primary Dx) Start: 04-04-2024 End: 04-04-2024 ambulatory Bethany Hinojosajaylen RODRIGUEZ-Maru Work Phone: Neurology Comment on above: Intractable chronic migraine without aura and without status migrainosus Start: 04-04-2024 End: 04-04-2024 Telemedicine consultation with patient Bethany Hinojosajaylen RODRIGUEZ-Maru Work Phone: Neurology Start: 03-20-2024 End: 03-20-2024 ambulatory [facility] Start: 03-04-2024 End: 03-04-2024 ambulatory [facility] Start: 02-20-2024 End: 02-20-2024 ambulatory [facility] Ambulatory Start: 02-15-2024 End: 02-15-2024 Emergency department patient visit NO ASSIGNED PCP GENERIC PROVIDER [facility] Start: 02-08-2024 End: 02-10-2024 Evaluation and management of inpatient NO ASSIGNED PCP GENERIC PROVIDER [facility] Start: 01-22-2024 ambulatory Anna hale MD Work Phone: Kidney Medicine Start: 01-22-2024 Patient encounter procedure Anna Menendez MD Work Phone: Kidney Medicine Comment on above: Diagnosis Start: 01-19-2024 End: 01-19-2024 Telemedicine consultation with patient Remigio Genao MD Work Phone: Neurology Headache [facility] Start: 01-19-2024 End: 01-19-2024 ambulatory Remigio Genao MD Work Phone: Neurology Headache [facility] Comment on above: Intractable chronic migraine without aura and without status migrainosus (Primary Dx) Need help Start: 01-19-2024 Letter encounter Bethany Hinojosa jaylen PA-C Work Phone: Neurology Comment on above: I need help and patience er for school I need help and a le tter for school Letter for school Start: 01-16-2024 End: 01-16-2024 Telemedicine consultation with patient Teo Sanchezdarinel PA-C Work Phone: Telemedicine Comment on above: Treatment not availa ble (Primary Dx) Start: 01-12-2024 End: 01-12-2024 Subsequent hospital visit by physician [facility] Work Phone: Nuclear Medicine Comment on above: Projectile vomiting with nausea [R11.12] Start: 01-03-2024 End: 01-03-2024 Patient encounter procedure Glory DE SOUZAC Work Phone: Gastroenterology [place] Comment on above: Projectile vomiting with nausea (Primary Dx); Early satiety; Abnormal weight loss; Alternating constipation and diarrhea; Rectal bleeding Start: 11-23-2023 End: 11-23-2023 Patient encounter procedure Nellie Mas APRN.AIR TRANSPORTATION PROVIDER Work Phone: [facility] Comment on above: Projectile vomiting with nausea (Primary Dx) Start: 11-13-2023 Telephone encounter Mario alvarado APRN.AIR TRANSPORTATION PROVIDER Work Phone: [facility] Comment on above: Results Start: 11-13-2023 End: 11-13-2023 Subsequent hospital visit by physician [facility] Jules Work Phone: Radiology Comment on above: Moderate persistent asthma with (acute) exacerbation [J45.41] Start: 11-12-2023 End: 11-12-2023 Patient encounter procedure Giacomo RODRIGUEZ Work Phone: [facility] Comment on above: Moderate persistent asthma with (acute) exacerbation (Primary Dx); Acute cough; Chronic nausea Start: 09-12-2023 Telephone encounter Talib Sharpe MD Work Phone: Urology Comment on above: Renal Scan Orders an d Follow up Start: 09-09-2023 End: 09-09-2023 Emergency department patient visit [facility] Work Phone: Start: 08-31-2023 Telephone encounter Bethany paula PA-C Work Phone: Neurology Comment on above: Appointment (Botox o verdue) Start: 08-08-2023 Telephone encounter Bethany paula PA-C Work Phone: Neurology Comment on above: Appointment Hospitalized Start: 08-03-2023 End: 08-03-2023 Emergency department patient visit [facility] Work Phone: Start: 07-21-2023 ambulatory Cary Cervantes Cl inical Communication Start: 07-21-2023 Patient encounter procedure Cary Cervantes Clinical Communication Start: 06-08-2023 End: 06-08-2023 Office outpatient visit 25 minutes Mayuri Mensah PA-C Work Phone: Pulmonary Medicine Comment on above: Severe persistent as thma without complication (Primary Dx); Interstitial pulmonary disease (HCC); Hodgkin lymphoma of lymph nodes of multiple regions, unspecified Hodgkin lymphoma type (HCC) Start: 06-02-2023 End: 06-02-2023 ambulatory Sammy Thompson DESK REPORTER.AIR TRANSPORTATION PROVIDER Work Phone: Telemedicine Comment on above: Acute cystitis witho ut hematuria (Primary Dx) Start: 06-02-2023 End: 06-02-2023 Telemedicine consultation with patient Sammy Thompson DESK REPORTER.AIR TRANSPORTATION PROVIDER Work Phone: [facility] Start: 05-31-2023 ambulatory Sravanthi Thorne RN [facility] a Clinical Communication Start: 05-31-2023 Patient encounter procedure [facility] Start: 05-31-2023 Telephone encounter Solomonalvaro maldonado DO Work Phone: [facility] Comment on above: Med Refill Start: 05-26-2023 Telephone encounter Bethany Looney eener PA-C Work Phone: Neurology Comment on above: Patient Update Start: 05-24-2023 Refill Solomon Luzjorgito Judd DO Work Phone: Internal Medicine [place] [facility] Comment on above: Refill Request Start: 05-22-2023 Telephone encounter Solomon Brandy maldonado DO Work Phone: [facility] Comment on above: Forms/questionnaires Start: 05-16-2023 Telephone encounter Bethany Looney eener PA-C Work Phone: Family Medicine [place] Comment on above: Headache Start: 05-09-2023 Telephone encounter Bethany Qu eener PA-C Work Phone: Neurology Comment on above: Medication Authoriza tion Start: 04-21-2023 Telephone encounter Aneta Wall MD Work Phone: Pulmonary Medicine Comment on above: Results (Chest CT) Start: 04-20-2023 Telephone encounter Aneta Wall MD Work Phone: Pulmonary Medicine Comment on above: Insurance Authorizat ion Start: 04-20-2023 End: 04-20-2023 Subsequent hospital visit by physician Ct Counts Include [address] [facility] Wstr (I-Stat) Work Phone: Cat Scan Comment on above: Interstitial pulmona ry disease (HCC) [J84.9] Start: 04-19-2023 End: 04-19-2023 Patient encounter procedure Aneta Wall MD Work Phone: Pulmonary Medicine Comment on above: Severe persistent as thma without complication (Primary Dx); Interstitial pulmonary disease (HCC); Hodgkin lymphoma of lymph nodes of multiple regions, unspecified Hodgkin lymphoma type (HCC) Start: 04-11-2023 End: 04-11-2023 Subsequent hospital visit by physician Mri Radio Counts Include 234 Beds At [facility] Wstr (I-Stat/1.5t) Work Phone: Radiology Comment on above: New daily persistent headache [G44.52] Start: 04-06-2023 Telephone encounter Bethany paula PA-C Work Phone: Neurology Comment on above: New Botox Referral S ubmitted Start: 04-05-2023 End: 04-05-2023 Patient encounter procedure Bethany Gil PA-C Work Phone: Neurology Comment on above: New daily persistent headache (Primary Dx); Intractable chronic migraine without aura and without status migrainosus; Obstructive sleep apnea Start: 04-03-2023 Telephone encounter Mayuri ugalde [facility] Work Phone: Psychology Comment on above: bh consult Start: 04-03-2023 End: 04-03-2023 Patient encounter procedure Mabel Oshea CNM Work Phone: OB/Gynecology Comment on above: Encounter for remova l and reinsertion of Nexplanon (Primary Dx); Recurrent HSV (herpes simplex virus); Bipolar 1 disorder (HCC); PTSD (post-traumatic stress disorder); Anxiety Start: 03-03-2023 End: 03-03-2023 [facility] Start: 03-03-2023 End: 03-03-2023 Office outpatient visit 25 minutes Solomon Judd DO Work Phone: [facility] Comment on above: Moderate persistent asthma without complication (Primary Dx); Acquired hypothyroidism; Chronic migraine without aura without status migrainosus, not intractable; Stage 3b chronic kidney disease (HCC); Renal agenesis Start: 03-01-2023 End: 03-02-2023 [facility] Start: 03-01-2023 End: 03-01-2023 Subsequent hospital visit by physician Solomon Judd DO Work Phone: [facility] Non-Invasive Cardiology Comment on above: Shortness of breath; History of Hodgkin's lymphoma Start: 11-24-2022 Refill Solomon Judd DO Work Phone: [facility] Comment on above: Chronic migraine wit hout aura without status migrainosus, not intractable Start: 11-21-2022 Orders Only Solomon Judd DO Work Phone: [facility] Comment on above: Moderate persistent asthma without complication (Primary Dx) Start: 11-18-2022 End: 2022 ambulatory SOLOMON JUDD [facility] Start: 10-25-2022 End: 10-25-2022 ambulatory SOLOMON JUDD [facility] Start: 10-25-2022 End: 10-25-2022 Office outpatient visit 25 minutes Solomon Judd DO Work Phone: [facility] Medicine Comment on above: Orthostatic hypotens ion (Primary Dx); Stage 3b chronic kidney disease (HCC); Shortness of breath; Idiopathic peripheral neuropathy; History of Hodgkin's lymphoma Start: 10-21-2022 ambulatory June Hackett [facility] l[facility] Start: 10-21-2022 Patient encounter procedure June Hack[facility] Start: 10-13-2022 End: 10-13-2022 ambulatory Riddhi Garcia [facility] Start: 10-13-2022 Patient encounter procedure Riddhi Garcia [facility] Start: 10-13-2022 Telephone encounter Solomon maldonado DO Work Phone: [facility] Comment on above: results Patient Question Start: 10-13-2022 End: 10-13-2022 Office outpatient visit 15 minutes Regulo Pena DESK REPORTER - AIR TRANSPORTATION PROVIDER Work Phone: [facility] Comment on above: Rash (Primary Dx) Start: 10-12-2022 End: 10-13-2022 ambulatory SOLOMON JUDD [facility] Start: 10-12-2022 Telephone encounter Solomon maldonado DO Work Phone: [facility] Comment on above: Rash Start: 10-11-2022 End: 10-11-2022 ambulatory SOLOMON JUDD [facility] Start: 10-11-2022 End: 10-11-2022 Office outpatient visit 25 minutes Solomon Judd DO Work Phone: [facility] Comment on above: Rash and nonspecific skin eruption (Primary Dx); Acquired hypothyroidism; Stage 3b chronic kidney disease (HCC) Start: 09-01-2022 Orders Only Solomon Judd DO Work Phone: [facility] Start: 09-01-2022 End: 09-01-2022 Patient encounter procedure Solomon Judd DO Work Phone: [facility] Start: 09-01-2022 End: 09-01-2022 Periodic preventive med est patient 18-39 yrs Solomon Judd DO Work Phone: [facility] Comment on above: Annual physical exam (Primary Dx); Screening for cervical cancer; Routine screening for STI (sexually transmitted infection); Herpes simplex vulvovaginitis; Encounter for surveillance of implantable subdermal contraceptive; Chronic migraine without aura without status migrainosus, not intractable; Acquired hypothyroidism; Vitamin D deficiency; Tobacco use disorder; Stage 3b chronic kidney disease (HCC) Start: 06-25-2022 Chart Update Solomon coates Work Phone: [facility] Work Phone: Start: 06-22-[address] Solomon Judd Facility:[id number] Start: 06-22-2022 Office outpatient ne w 30 minutes Solomon Judd Work Phone: [facility] Work Phone: Start: 05-25-2022 Telephone encounter Talib Sharpe MD Work Phone: Urology Comment on above: Orders Start: 04-04-2022 End: 04-04-2022 Subsequent hospital visit by physician [facility] Work Phone: Molecular Imaging Comment on above: Hydronephrosis, unsp ecified hydronephrosis type [N13.30] Start: 03-22-2022 Telephone encounter Talib Sharpe MD Work Phone: [facility] Start: 03-16-2022 End: 03-16-2022 Patient encounter procedure Talib Sharpe MD Work Phone: [facility] Comment on above: Hydronephrosis, unsp ecified hydronephrosis type (Primary Dx); Chronic renal failure, stage 4 (severe) ([facility]) Start: 10-24-2021 Non-patient / Non-visit Dr. Pedro Ferrer Work Phone: [facility] Start: 10-23-2021 Non-patient / Non-visit Dr. Pedro Ferrer Work Phone: [facility] Start: 10-22-2021 Non-patient / Non-visit Dr. Pedro Ferrer Work Phone: [facility] Start: 10-21-2021 End: 10-24-2021 Evaluation and management of inpatient Dr. Veronika Ferrer Work Phone: [facility] Start: 09-03-2021 End: 09-04-2021 Emergency department patient visit Dr. Veronika Ferrer Work Phone: [facility] Start: 08-12-2021 End: 08-12-2021 Emergency department patient visit Dr. Veronika Ferrer Work Phone: [facility] Start: 07-25-2021 End: 07-26-2021 Emergency department patient visit Dr. Veronika Ferrer Work Phone: [facility] Start: 07-01-2021 End: 07-01-[address] Veronika Ferrer Work Phone: [facility] 3 Outp Start: 06-23-2021 End: 06-23-[address] Veronika Ferrer Work Phone: [facility] Start: 01-15-2020 End: 01-15-2020 Subsequent hospital visit by physician Akin Rahman Work Phone: [facility] Comment on above: Arrived Start: 12-06-2019 End: 12-06-2019 Subsequent hospital visit by physician Rodri Snow Work Phone: [facility] Nuclear Medicine Comment on above: Hydronephrosis, unsp ecified hydronephrosis type Start: 07-16-2018 End: 07-16-2018 ambulatory UNKNOWN PROVIDER Facility:[facility] Start: 12-23-2017 End: 12-23-2017 Emergency department patient visit [facility] Start: 12-01-2017 End: 12-01-2017 Emergency department patient visit [facility] Start: 2017 End: 2017 Emergency department patient visit [facility] Start: 11-14-2017 End: 11-15-2017 Ambulatory JOE STRING[facility] Start: 11-05-2017 End: 11-05-2017 Emergency department patient visit [facility] Procedures Date Procedure Procedure Detail Performing Clinician Start: 02-17-2025 Kidney img morphology vascular flow 1 w/rx Juany Anderson MD Work Phone: Start: 02-06-2025 Urnls dip stick/tablet rgnt auto w/o microscopy Juany Anderson MD Work Phone: Start: 01-23-2025 Urnls dip stick/tablet rgnt auto w/o microscopy Pancho Hooper MD Work Phone: Start: 01-23-2025 Urnls dip stick/tablet rgnt auto w/o microscopy Bulk Order Provider Start: 01-16-2025 Radionuclide study of abdomen Pam Yost SAND FILLER-C Work Phone: Start: 01-03-2025 Ultrasonography of abdomen Pam suarez SAND FILLER-C Work Phone: Start: 12-31-2024 Radiologic exam chest 2 views Pam Yost DESK REPORTER.[facility] Work Phone: Start: 11-22-2024 Urnls dip stick/tablet rgnt auto w/o microscopy Gustavo HairJenae DESK REPORTER.[facility] Work Phone: Start: 11-13-[address] Veronika Ferrer MD Work Phone: Start: 10-11-[address] Veronika Ferrer MD Work Phone: Start: 10-11-2024 Urnls dip stick/tablet reagent auto microscopy Dr. Veronika Ferrer MD Work Phone: Start: 09-04-2024 Urnls dip stick/tablet reagent auto microscopy Dr. Veronika Ferrer MD Work Phone: Start: 09-04-[address] Veronika Ferrer MD Work Phone: Start: 09-04-2024 CT of abdomen and pelvis without contrast Dr. Veronika Ferrer MD Work Phone: Start: 09-03-2024 Urnls dip stick/tablet rgnt auto w/o microscopy Nellie Mas DESK REPORTER.[facility] Work Phone: Start: 04-23-2024 Radiologic exam chest 2 views Marilu Raya PA-C Work Phone: Start: 01-12-2024 Gastric emptying imaging study Glory Chirinos PA-C Work Phone: Start: 11-13-2023 Radiologic exam chest 2 views Giacomo RODRIGUEZ Work Phone: Start: 09-09-2023 SARS-CoV-2, Influenza & RSV (PCR) Start: 09-09-2023 CT of abdomen and pelvis without contrast Start: 08-03-2023 Viral antigen assay Start: 08-03-2023 CT of head without contrast Start: 04-20-2023 Ct thorax w/o contrast material Aneta Wall MD Work Phone: Start: 04-11-2023 Mri brain brain stem w/o contrast material Bethany Gil PA-C Work Phone: Start: 03-03-2023 Basic metabolic panel calcium total Solomon Judd DO Work Phone: Start: 03-03-2023 End: 03-03-2023 Thyrotropin [Units/volume] in Serum or Plasma Solomon Judd DO Work Phone: Start: 03-01-2023 Echo tthrc r-t 2d w/wom-mode compl spec&colr d Solomon Judd DO Work Phone: Start: 10-21-2022 Thyrotropin [Units/volume] in Serum or Plasma June Hackett RN Start: 10-13-2022 Iaadiadoo streptococcus group a Regulo Sir Jairo RODRIGUEZN - AIR TRANSPORTATION PROVIDER Work Phone: Start: 10-12-2022 Thyrotropin [Units/volume] in Serum or Plasma Solomon Judd DO Work Phone: Start: 09-01-2022 Microscopic observation [Identifier] in Cervix by Cyto stain Solomon Judd DO Work Phone: Start: 09-01-2022 C. TRACHOMATIS, N. GONORHOEAE RNA Solomon Judd DO Work Phone: Start: 03-16-2022 Urnls dip stick/tablet rgnt auto w/o microscopy Talib Sharpe MD Work Phone: Start: 03-04-2022 Thyrotropin [Units/volume] in Serum or Plasma Solomon Martinezaminah DO Work Phone: Start: 10-23-[address] Veronika Ferrer Work Phone: Start: 09-03-2021 End: 09-03-[address] Veronika Ferrer Work Phone: Start: 07-26-2021 SARS-CoV-2 Antigen (Rapid) Dr. Veronika Ferrer Work Phone: Start: 01-15-2020 Colonoscopy 3m Scanning Start: 01-15-2020 [facility] ENDOSCOPY REPORT 3m Scanning Start: 12-06-2019 Kidney img morphology vascular flow 1 w/rx Rodri Tinsley Prsicila Work Phone: Start: 07-31-2018 H/O: section History of delivery Talib Sharpe Jr., MD Work Phone: Start: 12-23-2017 Urine test visual color cmprsn meths NELLIE PEGGY Start: 12-01-2017 CULTURE BLOOD #1 NELLIE WOODS Start: 12-01-2017 Culture bacterial quanttative colony count urine NELLIE BLAKEROBERT Start: 12-01-2017 VITAL SIGNS NELLIE PEGGY Start: 12-01-2017 Radiologic exam chest 2 views NELLIE WOODS Start: 12-01-2017 POC UR-QUAL NELLIE PEGGY Start: 12-01-2017 Microscopic urinalysis NELLIE PEGGY Start: 12-01-2017 Urnls dip stick/tablet rgnt auto w/o microscopy NELLIE WOODS Start: 12-01-2017 Blood count complete auto&auto difrntl wbc NELLIE BLAKEROBERT Start: 12-01-2017 Comprehensive metabolic panel NELLIE WOODS Start: 2017 POC UR-QUAL NELLIE BLAKEROBERT Start: 2017 Basic metabolic panel calcium total NELLIE PEGGY Start: 2017 Blood count complete auto&auto difrntl wbc NELLIE BLAKEROBERT Start: 2017 Culture bacterial quanttative colony count urine NELLIE PEGGY Start: 2017 Microscopic urinalysis NELLIE WOODS Start: 2017 Urnls dip stick/tablet rgnt auto w/o microscopy NELLIE WOODS Start: 11-14-2017 Assay of thyroid stimulating hormone tsh NELLIE WOODS Start: 11-14-2017 Blood count complete auto&auto difrntl wbc NELLIE WOODS Start: 11-14-2017 Comprehensive metabolic panel NELLIE WOODS Start: 11-14-2017 Cyanocobalamin vitamin b-12 NELLIE WOODS Start: 11-14-2017 FERRITIN NELLIE WOODS Start: 11-14-2017 Hemoglobin glycosylated a1c NELLIE WOODS Start: 11-14-2017 HEP C VIRAL LOAD NELLIE WOODS Start: 11-14-2017 HEPATITIS C ANTIBODY NELLIE WOODS Start: 11-14-2017 HIV SCREEN NELLIE WOODS Start: 11-14-2017 IRON AND TIBC NELLIE WOODS Start: 11-14-2017 T3 NELLIE WOODS Start: 11-14-2017 T4 NELLIE WOODS Start: 11-14-2017 VITAMIN D 25 HYDROX, D2 AND D3 NELLIE WOODS Start: 11-05-2017 Ct abdomen & pelvis w/o contrast material NELLIE WOODS Start: 11-05-2017 POC UR-QUAL NELLIE WOODS Start: 11-05-2017 Microscopic urinalysis NELLIE WOODS Start: 11-05-2017 Urnls dip stick/tablet rgnt auto w/o microscopy NELLIE WOODS Start: 11-05-2017 Assay of lipase NELLIE WOODS Start: 11-05-2017 Blood count complete auto&auto difrntl wbc NELLIE WOODS Start: 11-05-2017 Comprehensive metabolic panel NELLIE GARZACHARLESROBERT Start: 11-05-2017 LACTIC ACID, PLASMA NELLIE WOODS Plan of Treatment Date Care Activity Detail Author Start: 2050 RSV Immunization aged 60 or older (1 - 1-dose 60+ series) RSV Immunization aged 60 or older (1 - 1-dose 60+ series) [facility] Start: 09-02-2027 HPV Testing HPV Testing [facility] Start: 09-02-2027 Pap Testing Pap Testing [facility] Start: 09-02-2027 Screening for malignant neoplasm of cervix [facility] Start: 02-28-2026 DTaP/Tdap/Td vaccine (7 - Td) DTaP/Tdap/Td vaccine (7 - Td) [facility] [place] Start: 02-28-2026 DTaP/Tdap/Td Vaccines (7 - Td or Tdap) DTaP/Tdap/Td Vaccines (7 - Td or Tdap) [facility] Start: 02-28-2026 Urine microalbumin profile [facility] Start: 01-24-2026 Annual PCP Team Chronic Disease Visit Annual PCP Team Chronic Disease Visit [facility] Start: 01-24-2026 Complete blood count Hemoglobin/Hematocrit [facility] Start: 01-24-2026 Pneumococcal vaccination Pneumococcal Vaccine (1 of 2 - PCV) [facility] Comment on above: Postponed from 2009 (Declined at t his time) Start: 01-24-2026 Shingrix Vaccine (1 of 2) Shingrix Vaccine (1 of 2) [facility] Comment on above: Postponed from 2009 (Declined at t his time) Start: 12-20-2025 Annual PCP Team Chronic Disease Visit Annual PCP Team Chronic Disease Visit [facility] Start: 12-20-2025 Complete blood count Hemoglobin/Hematocrit [facility] Start: 12-20-2025 Creatinine measurement Serum Creatinine [facility] Start: 09-18-2025 Annual PCP Team Chronic Disease Visit Annual PCP Team Chronic Disease Visit [facility] Start: 09-01-2025 Screening for malignant neoplasm of cervix [facility] Start: 07-11-2025 Annual PCP Team Chronic Disease Visit Annual PCP Team Chronic Disease Visit [facility] Start: 05-13-2025 End: 05-13-2025 Patient encounter procedure 05/13/2025 3:30 PM EST Office Visit Gastroenterology [facility] [address] [place] [address] Chito Fernandez MD [address] [place] [address] unintentional weight loss referral [facility] [place] Comment on above: unintentional weight loss referral Start: 05-08-2025 End: 05-08-2025 Patient encounter procedure 05/08/2025 2:30 PM EST Office Visit Kidney [facility] [address] [address] Pancho Hooper MD [address] [address] CKD Kidney Medicine [facility] Comment on above: CKD Start: 03-19-2025 End: 03-19-2025 Patient encounter procedure Cat Scan Comment on above: CT ABD/PEL W IVCON Start: 03-12-2025 End: 06-11-2025 TSH W/REFLEX FT4 TSH W/REFLEX FT4 Lab Routine Hypothyroidism, unspecified type Expected: 03/12/2025 (Approximate), Expires: 06/11/2025 [facility] Work Phone: Comment on above: Expected: 03/12/2025 (Approximate), Expi res: 06/11/2025 Start: 03-12-2025 End: 03-12-2025 Patient encounter procedure 03/12/2025 11:30 AM EDT Office Visit General Surgery [address] [place], [place] [phone] Ashli Saldana APRN.AIR TRANSPORTATION PROVIDER [address] [place] [address] 02/25 Post op General Surgery Comment on above: 02/25 Post op Start: 03-11-2025 End: 03-11-2025 Patient encounter procedure 03/11/2025 3:20 PM EDT Appointment Cat Scan [address] [place], [place] [id number] CT ABD/PEL W IVCON Cat Scan Comment on above: CT ABD/PEL W IVCON Start: 02-25-2025 End: 02-25-2025 Admission to same day surgery center 02/25/2025 11:28 AM EDT - 02/25/2025 1:29 PM EDT Surgery [facility] [address] [place] [id number] Michael Pro MD [address] [address] LAPAROSCOPIC CHOLECYSTECTOMY WITH GRAMS [facility] Comment on above: LAPAROSCOPIC CHOLECYSTECTOMY WITH GRAMS Start: 02-25-2025 End: 02-25-2025 Anesthesia consultation 02/25/2025 11:28 AM EDT Anesthesia Event [facility] [address] [place] [address] Toñito Ang SRNA [facility] Start: 02-25-2025 End: 02-25-2025 Laps surg cholecystectomy w/cholangiography LAPAROSCOPIC CHOLECYSTECTOMY WITH GRAMS Biliary colic 02/25/2025 11:28 AM EDT ME OR Start: 02-25-2025 Subsequent hospital visit by physician 02/25/2025 11:28 AM EDT Hospital Encounter [facility] [address] [place] [address] Michael Pro MD [address] [place], [place] [phone] Biliary colic [K80.50] [facility] Comment on above: Biliary colic [K80.50] Start: 02-24-2025 Influenza vaccination [facility] Start: 02-21-2025 End: 02-21-2025 Patient encounter procedure 02/21/2025 10:30 AM EDT Office Visit General Surgery [address] [facility] [address] [place] [address] Michael Pro MD [address] [facility] [place], [place] [id number] concerns for gallbladder, upper right back pain, cramping General Surgery Comment on above: concerns for gallbladder, upper right ba ck pain, cramping Start: 02-19-2025 End: 02-19-2025 Patient encounter procedure Cat Scan Comment on above: CT ABD/PEL W IVCON Start: 02-18-2025 End: 02-18-2025 Admission to same day surgery center 02/18/2025 1:50 PM EDT - 02/18/2025 2:35 PM EDT [facility] [address] [address] Juany Anderson MD [address] [place] [address] CYSTOSCOPY, RETROPYELOGRAM [facility] Comment on above: CYSTOSCOPY, RETROPYELOGRAM Start: 02-18-2025 End: 02-18-2025 Cysto bladder w/ureteral catheterization CYSTOSCOPY, RETROPYELOGRAM Other hydronephrosis 02/18/2025 1:50 PM EDT [facility] Start: 02-18-2025 End: 02-18-2025 Cysto w/insert ureteral stent INSERTION STENT DOUBLE J Other hydronephrosis 02/18/2025 1:50 PM EDT [facility] Start: 02-18-2025 End: 02-18-2025 Cysto w/urtroscopy&/pyeloscop y dx URETEROSCOPY RIGID Other hydronephrosis 02/18/2025 1:50 PM EDT [facility] Start: 02-18-2025 Subsequent hospital visit by physician 02/18/2025 1:50 PM EDT Hospital Encounter [facility] [address] [facility] [address] [place] [address] Juany Anderson MD [address] [place] [address] Other hydronephrosis [N13.39] [facility] Comment on above: Other hydronephrosis [N13.39] Start: 02-18-2025 End: 02-18-2025 Cysto bladder w/ureteral catheterization [facility] Start: 02-18-2025 End: 02-18-2025 Cysto w/insert ureteral stent [facility] Start: 02-18-2025 End: 02-18-2025 Cysto w/urtroscopy&/pyeloscop y dx [facility] Start: 02-17-2025 End: 02-17-2025 Patient encounter procedure 02/17/2025 2:45 PM EDT Appointment Molecular Imaging [address] [place] [address] Hydronephrosis, unspecified hydronephrosis type [N13.30]; Solitary kidney, congenital [Q60.0] Molecular Imaging Comment on above: Hydronephrosis, unspecified hydronephros is type [N13.30]; Solitary kidney, congenital [Q60.0] Start: 02-14-2025 Complete blood count Hemoglobin/Hematocrit [facility] Start: 02-14-2025 Creatinine measurement Serum Creatinine [facility] Start: 02-10-2025 End: 02-10-2025 Admission to same day surgery center 02/10/2025 1:30 PM EDT [facility] [address] [place], [place] [phone] Lenora Henning MD [address] [place] [phone] gallstones General Surgery Comment on above: gallstones Start: 02-06-2025 End: 05-08-2025 Erythrocyte sedimentation rate [facility] Work Phone: Comment on above: Expected: 02/06/2025, Expires: Start: 02-06-2025 End: 03-08-2026 NM Views for blood flow and kidney function W diuretic IV NM RENAL FLOW/FXN W PHARM Radiology Routine Hydronephrosis, unspecified hydronephrosis type Solitary kidney, congenital Expected: 02/06/2025, Expires: 03/08/2026 [facility] Work Phone: Comment on above: Expected: 02/06/2025, Expires: Start: 02-06-2025 End: 02-06-2025 Patient encounter procedure Urology Comment on above: solitary kidney and hydronephrosis solitary kidney and hydronephrosis. Pt calling back with updated ins info Start: 02-06-2025 End: 02-06-2025 ambulatory 02/06/2025 10:40 AM EDT Visit (SP) Office Hematology/Oncology [address] [place], [place] [address] Juan R Garcia MD [address] [place] [address] SAND FILLER/Unintentional weight loss of more than 10 pounds in 90 days [R63.4] Hematology/Oncology Comment on above: SAND FILLER/Unintentional weight loss of more tamika n 10 pounds in 90 days [R63.4] Start: 01-24-2025 End: 01-24-2025 Patient encounter procedure 01/24/2025 4:20 PM EDT Office Visit [facility] [address] [place], [place] [phone] Pam Yost, DESK REPORTER.AIR TRANSPORTATION PROVIDER [address] [place], [place] [phone] weight loss [facility] Comment on above: weight loss Start: 01-24-2025 End: 01-24-2025 ambulatory 01/24/2025 3:00 PM EDT Results Only [facility] Draw Station [address] [facility] [place] [address] [facility] Draw Station Start: 01-23-2025 End: 04-24-2025 Microalbumin/Creatinine [Mass Ratio] in Urine ALBUMIN/CREATININE RATIO, URINE Lab Routine Stage 3 chronic kidney disease, unspecified whether stage 3a or 3b CKD (HCC) Expected: 01/23/2025, Expires: 04/24/2025 [facility] Work Phone: Comment on above: Expected: 01/23/2025, Expires: Start: 01-23-2025 End: 01-23-2025 Patient encounter procedure 01/23/2025 2:00 PM EDT Office Visit [facility] [address] [phone] Pancho Hooper MD [address] [place] [address] 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] Kidney [facility] Comment on above: 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] Start: 01-23-2025 End: 04-24-2025 Protein/Creatinine [Mass Ratio] in Urine PROTEIN / CREATININE RATIO Lab Routine Stage 3 chronic kidney disease,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 Advised not to drive, call 911 or get a seasonal delivery driver, do not drive. Patient denies any new or worsening symptoms of which a provider is not aware:Yes. Patient verbalized understanding of recommendations [facility] 02-24-2025 Miscellaneous Notes Patient calling with worst pain ever, surgery schedule tomorrow, advised to go to the ED for evaluation, and pain control. Advised not to drive, call 911 or get a seasonal delivery driver, do not drive. Patient denies any new or worsening symptoms of which a provider is not aware:Yes. Patient verbalized understanding of recommendations documented in this encounter [facility] 02-21-2025 Note HNO ID: [id number] Author: MICHAEL PRO MD Service: ? Author Type: Physician Type: Progress Notes Filed: 02/21/2025 16:57 Note Text: HISTORY AND PHYSICAL Aissatou Betts 1990 REFERRING PHYSICIAN: No ref. provider found CHIEF COMPLAINT: Consult (concerns for gallbladder, upper right back pain, cramping//) HPI: Aissatou is a 34 year old female with a complaint of right upper quadrant pain. The patient has had symptoms of right upper quadrant pain for 6 months. The symptoms have increased, over the past 4 weeks. The pain does radiate to the back and shoulder. Food does aggravate her symptoms. Alleviating factors include: none. 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 Aissatou is scheduled for surgery on Monday. She had an ultrasound in December that showed biliary sludge but no cholelithiasis. Her renal function has been evaluated and is reportedly good. 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 She also has a history of imperforate anus and anterior fistula, for which she underwent surgery as an . Additional surgical history includes placement and removal of a power port, tumor excision from the left side of the neck, and a . She denies any current medical issues related to her past conditions. She reports an allergy to cats and denies any medication allergies. The patient is being seen by me today at the request of Pam Yost APRN.CNP for my opinion and advice regarding RUQ pain/biliary colic. SIGNIFICANT MEDICAL PROBLEMS: PAST MEDICAL HISTORY Diagnosis Date Alcohol abuse polysubstance abuse. 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 Depression 10/12/2011 Headache High blood pressure per patient - associated with breathing History of delivery History of Hodgkin's lymphoma Hodgkin's disease 2008 S/p chemo/radiation Hypothyroidism Solitary kidney, congenital pt born with single kidney OPERATIONS: PAST SURGICAL HISTORY Procedure Laterality Date SECTION HX 02/24/2016 COLONOSCOPY SCREENING 2022 HERPES 1 AND 2, IGB+ 2011 NEXPLANON INSERTION Left 04/20/2023 Placed in office PAST SURGICAL HISTORY OF kidney surgery PAST SURGICAL HISTORY OF rectal PAST SURGICAL HISTORY OF 06/09/2009 Left Supraclavicular Lymphnode Excision VSD CLOSURE CURRENT MEDICATIONS: Current Outpatient Medications Medication Sig Dispense Refill levothyroxine (SYNTHROID) 75 mcg tablet Take 1 tablet by mouth daily before breakfast. 90 tablet 1 SUMAtriptan (IMITREX) 100 mg tablet Take 1 tablet by mouth as needed for migraine headache (see administration instructions) (do not use on more than 2 dyas per week.). May repeat dose after 2 hours if needed. Maximum daily dose is 200 mg per day. No more than 9 doses in a month. 9 tablet 5 omeprazole (PRILOSEC) 40 mg capsule Take 1 capsule by mouth once daily. 30 capsule 1 buprenorphine-nalOXone SL (SUBOXONE) 8-2 mg subl Dissolve 2 tablets under the tongue once daily. D/T hyper active thyroid OTC PRODUCT Vitamin D drops valACYclovir (VALTREX) 500 mg tablet Take 1 tablet by mouth once daily. 90 tablet 1 ondansetron orally disintegrating (ZOFRAN ODT) 4 mg disintegrating tablet Take 1 tablet by mouth every 8 hours as needed for nausea/vomiting. 30 tablet 11 zinc sulfate 220 mg (50 mg zinc) capsule Take 1 capsule by mouth once daily for 21 days. 21 capsule 0 etonogestrel (NEXPLANON) subdermal implant 68 mg 1 Each by SUBDERMAL route as directed. 1 Each 0 VITAMIN B-12 500 mcg tab tab(s) Take 1 tablet by mouth once daily. No current facility-administered medications for this visit. ALLERGIES: Atorvastatin, Cats, Droperidol, Laxative Pill, Meperidine, and Sennosides PERSONAL HISTORY: SOCIAL HISTORY[1] FAMILY HISTORY: FAMILY HISTORY Problem Relation Age of Onset Hypertension Mother other (depresssion) Mother No Known Problems Father Lung Cancer Maternal Grandfather other (ulcerative colitis) Paternal Grandmother Diabetes Maternal Aunt REVIEW OF SYMPTOMS: The review of systems data was entered by the nurse and reviewed by me There are no exam notes on file for this visit. PHYSICAL EXAMINATION: General: The patient is 34 year old female, well nourished, well hydrated in no acute distress. The patient is oriented to time, place, and person. VITALS: Blood pressure 135/92, pulse 66, height 175.3 cm (5' 9), weight 50.4 kg (111 lb 1.8 oz), last menstrual period 04/15/2023, SpO2 99%. Body mass index is 16.41 kg/m?. HEENT: Normal cephalic, ataumatic, pupils are equally round, sclera are anicteric, mucous membranes are moist, oropharynx is clear. Neck has (more content not included)... [facility] 02-21-2025 History of Presen t illness Narrative HISTORY AND PHYSICAL Aissatou Betts 1990 REFERRING PHYSICIAN: No ref. provider found CHIEF COMPLAINT: Consult (concerns for gallbladder, upper right back pain, cramping//) HPI: Aissatou is a 34 year old female with a complaint of right upper quadrant pain. The patient has had symptoms of right upper quadrant pain for 6 months. The symptoms have increased, over the past 4 weeks. The pain does radiate to the back and shoulder. Food does aggravate her symptoms. Alleviating factors include: none. 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 Aissatou is scheduled for surgery on Monday. She had an ultrasound in December that showed biliary sludge but no cholelithiasis. Her renal function has been evaluated and is reportedly good. 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 She also has a history of imperforate anus and anterior fistula, for which she underwent surgery as an . Additional surgical history includes placement and removal of a power port, tumor excision from the left side of the neck, and a . She denies any current medical issues related to her past conditions. She reports an allergy to cats and denies any medication allergies. The patient is being seen by me today at the request of Pam Yost APRN.CNP for my opinion and advice regarding RUQ pain/biliary colic. SIGNIFICANT MEDICAL PROBLEMS: PAST MEDICAL HISTORY Diagnosis Date Alcohol abuse polysubstance abuse. 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 Depression 10/12/2011 Headache High blood pressure per patient - associated with breathing History of delivery History of Hodgkin's lymphoma Hodgkin's disease 2008 S/p chemo/radiation Hypothyroidism Solitary kidney, congenital pt born with single kidney OPERATIONS: PAST SURGICAL HISTORY Procedure Laterality Date SECTION HX 02/24/2016 COLONOSCOPY SCREENING 2022 HERPES 1 & 2, IGB+ 2011 NEXPLANON INSERTION Left 04/20/2023 Placed in office PAST SURGICAL HISTORY OF kidney surgery PAST SURGICAL HISTORY OF rectal PAST SURGICAL HISTORY OF 06/09/2009 Left Supraclavicular Lymphnode Excision VSD CLOSURE CURRENT MEDICATIONS: Current Outpatient Medications Medication Sig Dispense Refill levothyroxine (SYNTHROID) 75 mcg tablet Take 1 tablet by mouth daily before breakfast. 90 tablet 1 SUMAtriptan (IMITREX) 100 mg tablet Take 1 tablet by mouth as needed for migraine headache (see administration instructions) (do not use on more than 2 dyas per week.). May repeat dose after 2 hours if needed. Maximum daily dose is 200 mg per day. No more than 9 doses in a month. 9 tablet 5 omeprazole (PRILOSEC) 40 mg capsule Take 1 capsule by mouth once daily. 30 capsule 1 buprenorphine-nalOXone SL (SUBOXONE) 8-2 mg subl Dissolve 2 tablets under the tongue once daily. D/T hyper active thyroid OTC PRODUCT Vitamin D drops valACYclovir (VALTREX) 500 mg tablet Take 1 tablet by mouth once daily. 90 tablet 1 ondansetron orally disintegrating (ZOFRAN ODT) 4 mg disintegrating tablet Take 1 tablet by mouth every 8 hours as needed for nausea/vomiting. 30 tablet 11 zinc sulfate 220 mg (50 mg zinc) capsule Take 1 capsule by mouth once daily for 21 days. 21 capsule 0 etonogestrel (NEXPLANON) subdermal implant 68 mg 1 Each by SUBDERMAL route as directed. 1 Each 0 VITAMIN B-12 500 mcg tab tab(s) Take 1 tablet by mouth once daily. No current facility-administered medications for this visit. ALLERGIES: Atorvastatin, Cats, Droperidol, Laxative Pill, Meperidine, and Sennosides PERSONAL HISTORY: SOCIAL HISTORY[1] FAMILY HISTORY: FAMILY HISTORY Problem Relation Age of Onset Hypertension Mother other (depresssion) Mother No Known Problems Father Lung Cancer Maternal Grandfather other (ulcerative colitis) Paternal Grandmother Diabetes Maternal Aunt REVIEW OF SYMPTOMS: The review of systems data was entered by the nurse and reviewed by me There are no exam notes on file for this visit. PHYSICAL EXAMINATION: General: The patient is 34 year old female, well nourished, well hydrated in no acute distress. The patient is oriented to time, place, and person. VITALS: Blood pressure 135/92, pulse 66, height 175.3 cm (5' 9), weight 50.4 kg (111 lb 1.8 oz), last menstrual period 04/15/2023, SpO2 99%. Body mass index is 16.41 kg/m . HEENT: Normal cephalic, ataumatic, pupils are equally round, sclera are anicteric, mucous membranes are moist, oropharynx is clear. Neck has no masses, asymmetry or lymphadenopathy. Thyroid is unremarkable. Respiratory: Clear to auscultation and percussion. Normal respiratory excursion and pattern. Cardiac: Examination is regular rate and rhythm. Abdominal exam: Normoactive bowel sounds, Soft, tender in the right upper quadrant, with no palpable masses. No hepatosplenomegaly. No palpable hernias. Rectal exam: exam deferred Extremities: no clubbing, cyanosis or edema. No adenopathy. Other: LABORATORY VALUES: As Noted RADIOLOGIC STUDIES: As Noted Above Assessment IMPRESSION: Biliary colic, RUQ Pain PLAN: My plan is to perform a laparoscopic cholecystectomy with intraoperative choleangiogram. The planned surgical procedure was discussed extensively with the patient. The risks, benefits, anticipated outcomes and possible complications were mentioned. My staff has also explained the procedure in understandable terms and the patient was given the option to take printed material concerning the planned procedure. The patient had the opportunity to ask questions concerning the planned procedure. The patient freely consents to the planned procedure. Planned Procedure: LAPAROSCOPIC CHOLECYSTECTOMY WITH INTRAOPERATIVE CHOLEANGIOGRAM - 63063-473 Planned antibiotic: Ancef 2gm IVPB professional poker player to OR SCDs needed - Yes Health Records Technology Teacher Needed - Yes Diagnoses: (K80.50) Biliary colic (primary encounter diagnosis) (N18.30) Stage 3 chronic kidney disease, unspecified whether stage 3a or 3b CKD (HCC) (Z85.79) Personal history of other malignant neoplasms of lymphoid, hematopoietic and related tissues (J30.81) Allergic rhinitis due to animal (cat) (dog) hair and dander My findings have been communicated to Pam Yost APRN.CNP via shared medical record. This note will be forwarded to Pam Yost APRN.CNP. Michael Pro MD [1] Social History Tobacco Use Smoking status: Former Current packs/day: 0.00 Types: Cigarettes Smokeless tobacco: Never Vaping Use Vaping status: current everyday user Substances: Nicotine, Flavoring Substance Use Topics Alcohol use: Not Currently Alcohol/week: 1.0 standard drink of alcohol Types: 1 Cans of beer per week Drug use: Yes Types: Marijuana Comment: does use CBD, used heroin, crack, marijuana, meth in past. Last used heroin and crack November 12, 2021 documented in this encounter [facility] 02-21-2025 Telephone encounter Note Patient calling in stating she saw you today and is in a lot of pain and could not remember what you said regarding what she can take since she is on suboxone. Patient is requesting a call back with recommendation. Nellie Moses LPN [facility] 02-21-2025 Miscellaneous Notes Patient calling in stating she saw you today and is in a lot of pain and could not remember what you said regarding what she can take since she is on suboxone. Patient is requesting a call back with recommendation. Nellie Moses LPN documented in this encounter [facility] 02-21-2025 Telephone encounter Note Spoke with patient she will picking table worker a copy. Original is in scanning Charlotte Wisdom MA [facility] 02-21-2025 Miscellaneous Notes Spoke with patient she will picking table worker a copy. Original is in scanning Charlotte Wisdom MA Forms completed and placed on Charlotte desk. Please fax or notify the patient. Second message. Patient is requesting forms. Please advise. Abdulaziz Castillo MA documented in this encounter [facility] 02-21-2025 Evaluation note Diagnosis Biliary colic- Primary Calculus of gallbladder without mention of cholecystitis or obstruction Stage 3 chronic kidney disease, unspecified whether stage 3a or 3b CKD (HCC) Personal history of other malignant neoplasms of lymphoid, hematopoietic and related tissues Allergic rhinitis due to animal (cat) (dog) hair and dander Biliary colic Calculus of gallbladder without mention of cholecystitis or obstruction documented in this encounter [facility]-28-2025 Telephone encounter Note* Telephone Encounter - Pam Yost APRN.CNP - 02/20/2025 5:47 PM EDT Forms completed and placed on [employer]. Please fax or notify the patient. [facility]08-26-2025 Telephone encounter Note* Telephone Encounter - Juany Anderson MD - 02/18/2025 9:08 AM EDT S/p cystoscopy; unable to do retrograde due to left cross-trigonal reimplantation - no follow up Juany Anderson MD [facility] Work Phone: [phone] 283-320208-26-2025 Miscellaneous Notes* Telephone Encounter - Juany Anderson MD - 02/18/2025 9:08 AM EDT S/p cystoscopy; unable to do retrograde due to left cross-trigonal reimplantation - no follow up Juany Anderson MD [facility] Tele[facility] encounter Note * Telephone Encounter - Abdulaziz Castillo MA - 02/18/2025 7:54 AM EDT Second message. Patient is requesting forms. Please advise. Abdulaziz Castillo MA [facility]08-25-2025 History of Present illness Narrative* Bernadette Dangelo, RT(R) - 02/17/2025 2:45 PM EDT RADIOLOGY SERVICE PROGRESS NOTE SERVICE DATE: 02/17/2025 SERVICE TIME: 3:30 PM PATIENT IDENTITY VERIFICATION COMPLETED USING TWO (2) STANDARD IDENTIFIERS: Name and Date of confirmed by patient verbally FALL SCREENING: Has the patient had 2 falls in the last year or 1 fall with injury or currently using an Ambulatory Assistive Device (Walker, Cane, Wheelchair, Crutches, etc.)? No PATIENT GENDER DATA: .female : No ALLERGIES: Reviewed and unchanged MEDICATIONS REVIEWED: No PATIENT RELEVANT IMPLANT DATA REVIEWED: Not Applicable PATIENT PRESENTS WITH AN IMPLANTABLE OR ATTACHED MANUFACTURING WORKER: No CREATININE: Creatinine Date Value Ref Range Status 12/20/2024 2.16 (H) 0.58 - 0.96 mg/dL Final 09/11/2023 2.04 (H) 0.58 - 0.96 mg/dL Final 09/10/2023 2.21 (H) 0.58 - 0.96 mg/dL Final Estimated Glomerular Filtration Rate Date Value Ref Range Status 12/20/2024 30 (L) >=60 mL/min/1.73m Final Comment: Estimated Glomerular Filtration Rate (eGFR) is calculated using the 2020 CKD-EPI creatinine equation. This equation utilizes serum creatinine, sex, and age as parameters. The creatinine assay has traceable calibration to isotope dilution- mass spectrometry. Refer to KDIGO guidelines for clinical interpretation. In patients with unstable renal function, e.g. those with acute kidney injury, the eGFRmay not accurately reflect actual GFR. eGFR- Date Value Ref Range Status 02/15/2021 44 Final P.O.C.T. RESULTS: N/A February 17, [address] PERFORMED: No IV SITE: Ambulatory: A peripheral IV was started in the Right antecubital site with a Angio cath: 24 gauge. POST EXAM PIV STATUS: Discontinued PROCEDURE TYPE: NM INJECT: RENAL FLOW/FXN W PHARM. 10.3 mCi Tc99m MAG-3. Administered By: DS . Lasix 40 milligrams intravenous at 1507. ADMINISTRATION TIME: 1441 PATIENT DISCHARGED TO: Ambulatory patient, left CT department area. Is this a therapy: No A Diagnostic radioactive procedure has taken place, with no further precautions necessary other than routine body substance precautions. More information regarding radiation safety can be found usingthis link: [email or web address] SIGNATURE: RT Bradley(R) PATIENT NAME: Aissatou Betts DATE: February 17, 2025 TIME: 3:30 PM PAGER/CONTACT #: [facility] NoteHNO ID: [id number] Author: BERNADETTE DANGELO RT(R) Service: Nuclear Medicine Author Type: Technologist Type: Progress Notes Filed: 02/17/2025 15:31 Note Text: RADIOLOGY SERVICE PROGRESS NOTE SERVICE DATE: 02/17/2025 SERVICE TIME: 3:30 PM PATIENT IDENTITY VERIFICATION COMPLETED USING TWO (2) STANDARD IDENTIFIERS: Name and Date of confirmed by patient verbally FALL SCREENING: Has the patient had 2 falls in the last year or 1 fall with injury or currently using an Ambulatory Assistive Device (Walker, Cane, Wheelchair, Crutches, etc.)? No PATIENT GENDER DATA: .female : No ALLERGIES: Reviewed and unchanged MEDICATIONS REVIEWED: No PATIENT RELEVANT IMPLANT DATA REVIEWED: Not Applicable PATIENT PRESENTS WITH AN IMPLANTABLE OR ATTACHED MANUFACTURING WORKER: No CREATININE: Creatinine Date Value Ref Range Status 12/20/2024 2.16 (H) 0.58 - 0.96 mg/dL Final 09/11/2023 2.04 (H) 0.58 - 0.96 mg/dL Final 09/10/2023 2.21 (H) 0.58 - 0.96 mg/dL Final Estimated Glomerular Filtration Rate Date Value Ref Range Status 12/20/2024 30 (L) >=60 mL/min/1.73m? Final Comment: Estimated Glomerular Filtration Rate (eGFR) is calculated using the 2020 CKD-EPI creatinine equation. This equation utilizes serum creatinine, sex, and age as parameters. The creatinine assay has traceable calibration to isotope dilution-mass spectrometry. Refer to KDIGO guidelines for clinical interpretation. In patients with unstable renal function, e.g. those with acute kidney injury, the eGFR may not accurately reflect actual GFR. eGFR- Date Value Ref Range Status 02/15/2021 44 Final P.O.C.T. RESULTS: N/A February 17, [address] PERFORMED: No IV SITE: Ambulatory: A peripheral IV was started in the Right antecubital site with a Angio cath: 24 gauge. POST EXAM PIV STATUS: Discontinued PROCEDURE TYPE: NM INJECT: RENAL FLOW/FXN W PHARM. 10.3 mCi Tc99m MAG-3. Administered By: CORNELL . Lasix 40 milligrams intravenous at 1507. ADMINISTRATION TIME: 1441 PATIENT DISCHARGED TO: Ambulatory patient, left CT department area. Is this a therapy: No A Diagnostic radioactive procedure has taken place, with no further precautions necessary other than routine body substance precautions. More information regarding radiation safety can be found using this link: [email or web address] SIGNATURE: RT Bradley(R) PATIENT NAME: Aissatou Betts DATE: February 17, 2025 TIME: 3:30 PM PAGER/CONTACT #:[facility]08-25-2025 Telephone encounter Note* Telephone Encounter - Aicha Isabel MA - 02/17/2025 2:30 PM EDT Faxed forms to medical records requesting records from 12/24/2024 to present day. Scanned into [employer]. [facility]08-25-2025 Miscellaneous Notes* Telephone Encounter - Aicha Isabel MA - 02/17/2025 2:30 PM EDT Faxed forms to medical records requesting records from 12/24/2024 to present day. Scanned into [employer]. [facility]25 NoteHNO ID: [id number] Author: ALVA MORENO APRN.[facility] [place] Service: Anesthesiology Author Type: Nurse Practitioner Type: Progress Notes Filed: 02/17/2025 10:42 Note Text: HANDP completed 01/24/2025 Pam Yost APRN.[facility]25 NoteHNO ID: [id number] Author: ?, ?, ? Service: ? Author Type: ? Type: Progress Notes Filed: 02/11/2025 11:22 Note Text: Renal scan scheduled for 02/17/2025 Kalyani Junior [facility]08-18-2025 NoteHNO ID: [id number] Author: LENORA HENNING MD Service: ? Author Type: Physician Type: Progress Notes Filed: 02/12/2025 07:46 Note Text: NEW VIRTUAL VISIT I have communicated my name and active licensure. The patient's identity and physical location were verified at the time of this visit. Either the patient or their legal customer service representative teacher has been informed of the risks and benefits of -- and alternatives to -- treatment through a remote evaluation and consents to proceed with the evaluation remotely. I had a virtual visit with Ms. Betts today. Her local doctors have given her a diagnosis of gallbladder disease. HISTORY: Aissatou Betts is a 34-year-old female presenting for a consultation regarding potential cholecystectomy. Aissatou reports experiencing hot and cold flashes, severe back pain, significant weight loss, and episodes of dizziness and abdominal pain. She describes feeling as though she is falling apart. She has been informed that she has gallbladder issues, specifically sludge in her stomach. An US obtained from an outside medical location on 01/03/2025 reveals gallbladder biliary sludge. Also, no wall thickening or pericholecystic fluid. Another study also done outside [facility] - CT hepatobiliary scakn 02/09/2024 - revealed EF of 82%. She described constant abdominal pain located below the level of the umbilicus (lower abdomen), as well as lower back pain. The pain waxes and wanes but never goes away completely. It is not associated with eating or physical activity. She states that because of its constant nature, she cannot work. When asked specifically, she denies RUQ or epigastric abdominal pain. She notes nausea. She notes diarrhea - food goes right through me, but also notes intermittent constipation and loose stools, has fecal urgency. She is scheduled for upper and lower endoscopy at [facility] later this week. She has been attending multiple medical appointments over the past 3 months without finding a resolution to her symptoms. She expresses frustration with the lack of answers and is considering cholecystectomy as a potential solution, noting that many of her family members have had their gallbladders removed. She is currently unemployed and concerned about her financial stability. She also mentions having only one kidney - this is congenital. She also notes significant weight loss as reported above, dropping at least 20#. She states that she has a poor appetite.. Patient with history of Hodgkin's lymphoma 2008 She has history of hepatitis C (treated) She is undergoing workup for left hydronephrosis. Has chronic kidney disease, stage III PAST MEDICAL HISTORY Diagnosis Date Alcohol abuse polysubstance abuse. 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 Depression 10/12/2011 Headache High blood pressure per patient - associated with breathing History of delivery History of Hodgkin's lymphoma Hodgkin's disease 2008 S/p chemo/radiation Hypothyroidism Solitary kidney, congenital pt born with single kidney PAST SURGICAL HISTORY Procedure Laterality Date SECTION HX 02/24/2016 COLONOSCOPY SCREENING 2022 HERPES 1 AND 2, IGB+ 2011 NEXPLANON INSERTION Left 04/20/2023 Placed in office PAST SURGICAL HISTORY OF kidney surgery PAST SURGICAL HISTORY OF rectal PAST SURGICAL HISTORY OF 06/09/2009 Left Supraclavicular Lymphnode Excision VSD CLOSURE FAMILY HISTORY Problem Relation Age of Onset Hypertension Mother other (depresssion) Mother No Known Problems Father Lung Cancer Maternal Grandfather other (ulcerative colitis) Paternal Grandmother Diabetes Maternal Aunt SOCIAL HISTORY[1] Current Outpatient Medications Medication Sig Dispense Refill levothyroxine (SYNTHROID) 75 mcg tablet Take 1 tablet by mouth daily before breakfast. 90 tablet 1 SUMAtriptan (IMITREX) 100 mg tablet Take 1 tablet by mouth as needed for migraine headache (see administration instructions) (do not use on more than 2 dyas per week.). May repeat dose after 2 hours if needed. Maximum daily dose is 200 mg per day. No more than 9 doses in a month. 9 tablet 5 omeprazole (PRILOSEC) 40 mg capsule Take 1 capsule by mouth once daily. 30 capsule 1 buprenorphine-nalOXone SL (SUBOXONE) 8-2 mg subl Dissolve 2 tablets under the tongue once daily. D/T hyper active thyroid OTC PRODUCT Vitamin D drops valACYclovir (VALTREX) 500 mg tablet Take 1 tablet by mouth once daily. 90 tablet 1 ondansetron orally disintegrating (ZOFRAN ODT) 4 mg disintegrating tablet Take 1 tablet by mouth every 8 hours as needed for nausea/vomiting. 30 tablet 11 zinc sulfate 220 mg (50 mg zinc) capsule Take 1 capsule by mouth once daily for 21 days. 21 capsule 0 etonogestrel (NEXPLANON) subdermal implant 68 mg 1 Each by SUBDERMAL route as dir (more content not included)...[facility]08-18-2025 History of Present illness Narrative* Lenora Henning MD - 02/10/2025 1:33 PM EDT NEW VIRTUAL VISIT I have communicated my name and active licensure. The patient's identity and physical location wereverified at the time of this visit. Either the patient or their legal customer service representative teacher has been informed of the risks and benefits of -- and alternatives to -- treatment through a remote evaluation andconsents to proceed with the evaluation remotely. I had a virtual visit with Ms. Betts today. Her local doctors have given her a diagnosis of gallbladder disease. HISTORY: Aissatou Betts is a 34-year-old female presenting for a consultation regarding potential cholecystectomy. Aissatou reports experiencing hot and cold flashes, severe back pain, significant weight loss, and episodes of dizziness and abdominal pain. She describes feeling as though she is falling apart. She has been informed that she has gallbladder issues, specifically sludge in her stomach. An US obtained from an outside medical location on 01/03/2025 reveals gallbladder biliary sludge. Also, no wall thickening or pericholecystic fluid. Another study also done outside [facility] - revealed EF of 82%. She described constant abdominal pain located below the level of the umbilicus (lower abdomen), as well as lower back pain. The pain waxes and wanes but never goes away completely. It is not associated with eating or physical activity. She states that because of its constant nature, she cannot work. When asked specifically, she denies RUQ or epigastric abdominal pain. She notes nausea. She notes diarrhea - food goes right through me, but also notes intermittent constipation and loose stools, has fecal urgency. She is scheduled for upper and lower endoscopy at [facility] later this week. She has been attending multiple medical appointments over the past 3 months without finding a resolution to her symptoms. She expresses frustration with the lack of answers and is considering cholecystectomy as a potential solution, noting that many of her family members have had their gallbladdersremoved. She is currently unemployed and concerned about her financial stability. She also mentionshaving only one kidney - this is congenital. She also notes significant weight loss as reported above, dropping at least 20#. She states that she has a poor appetite.. Patient with history of Hodgkin's lymphoma 2008 She has history of hepatitis C (treated) She is undergoing workup for left hydronephrosis. Has chronic kidney disease, stage III PAST MEDICAL HISTORY Diagnosis Date Alcohol abuse polysubstance abuse. 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 Depression 10/12/2011 Headache High blood pressure per patient - associated with breathing History of delivery History of Hodgkin's lymphoma Hodgkin's disease 2008 S/p chemo/radiation Hypothyroidism Solitary kidney, congenital pt born with single kidney PAST SURGICAL HISTORY Procedure Laterality Date SECTION HX 02/24/2016 COLONOSCOPY SCREENING 2022 HERPES 1 & 2, IGB+ 2011 NEXPLANON INSERTION Left 04/20/2023 Placed in office PAST SURGICAL HISTORY OF kidney surgery PAST SURGICAL HISTORY OF rectal PAST SURGICAL HISTORY OF 06/09/2009 Left Supraclavicular Lymphnode Excision VSD CLOSURE FAMILY HISTORY Problem Relation Age of Onset Hypertension Mother other (depresssion) Mother No Known Problems Father Lung Cancer Maternal Grandfather other (ulcerative colitis) Paternal Grandmother Diabetes Maternal Aunt SOCIAL HISTORY[1] Current Outpatient Medications Medication Sig Dispense Refill levothyroxine (SYNTHROID) 75 mcg tablet Take 1 tablet by mouth daily before breakfast. 90 tablet 1 SUMAtriptan (IMITREX) 100 mg tablet Take 1 tablet by mouth as needed for migraine headache (see administration instructions) (do not use on more than 2 dyas per week.). May repeat dose after 2 hours if needed. Maximum daily dose is 200 mg per day. No more than 9 doses in a month. 9 tablet 5 omeprazole (PRILOSEC) 40 mg capsule Take 1 capsule by mouth once daily. 30 capsule 1 buprenorphine-nalOXone SL (SUBOXONE) 8-2 mg subl Dissolve 2 tablets under the tongue once daily. D/T hyper active thyroid OTC PRODUCT Vitamin D drops valACYclovir (VALTREX) 500 mg tablet Take 1 tablet by mouth once daily. 90 tablet 1 ondansetron orally disintegrating (ZOFRAN ODT) 4 mg disintegrating tablet Take 1 tablet by mouth every 8 hours as needed for nausea/vomiting. 30 tablet 11 zinc sulfate 220 mg (50 mg zinc) capsule Take 1 capsule by mouth once daily for 21 days. 21 capsule0 etonogestrel (NEXPLANON) subdermal implant 68 mg 1 Each by SUBDERMAL route as directed. 1 Each 0 VITAMIN B-12 500 mcg tab tab(s) Take 1 tablet by mouth once daily. No current facility-administered medications for this visit. ALLERGIES Allergen Reactions Atorvastatin Unknown Cats Shortness of Breath Droperidol Anaphylaxis Laxative Pill GI Upset Meperidine Unknown Sennosides Other: See Comments REVIEW OF SYSTEMS: General - feels hot and cold at times, has had weight loss, has fatigue HEENT - denies trauma/infections Neuro - complaint of dizziness Resp - denies coughing up blood, denies breathing difficulties Cardiac - denies chest pain GI - see HPI - has CKD, has congenital solid kidney, denies blood in urine Endocrine -has hypothyroidism, denies diabetes MS - complaint of muscle loss and weakness Psych - history of substance abuse on suboxone and gabapentin PHYSICAL FINDINGS OF NOTE: Patient reported height 5'9 and weight 105 lbs General - Normal, healthy, cooperative, in no acute distress Able to interact verbally by video conference Psych - ORIENTATION: normal to time place, person and situation Mood/Affect: AFFECT AND MOOD: frustrated Head/Neuro - Normal size and shape Facial appearance normal Pulmonary - respiratory effort normal Cardiovascular - patient describes extremities normal, warm, no cyanosis,no clubbing, and no edema Abdominal - Not performed Skin - abnormal lesions not visualized Motor - patient seen standing and sitting with Normal appearing strength and coordination IMPRESSION Lower abdominal pain Abnormal findings on HIDA scan RECOMMENDATION: I have discussed above with patient. She does not have classic symptoms of biliary pain. I have discussed laparoscopic cholecystectomy. I have counseled patient as to risks of procedure, including but not limited to: infection, bleeding, scar tissue, injury to any intraabdominal organs, injury to any bowel/bladder, intraabdominal abscess/bleeding, incisional trocar hernias, injury to the common bile duct and/or biliary tree, bile leak, wound infections, etc. I have counseled patient that given her history and radiological findings, I cannot guarantee that gallbladder removal will alleviate her symptoms. The patient is frustrated as there is no medical solution to her issues. I have offered cholecystectomy, patient states that she wants to discuss with her family. She did not schedule for any procedure in this patient encounter. I have counseled patient to return to clinic if any worsening signs/symptoms. I spent a total of 31 minutes on the date of the service which included preparing to see the patient with review of any pertinent laboratory studies/radiological imaging/medical records from other medical facilities such as [facility], [id number] patient care, obtaining oral medical history from the patient in this encounter, counseling and educating the patient/family/caregiver, and completing appropriate medical documentation. Consultation requested by Pam Yost for an opinion regarding patient's abdominal pain and abnormal HIDA scan. My final recommendations will be communicated back to the requesting physician by way of shared Medical record or letter to requesting physician via US mail. Recording using [employer] software for draft documentation of the visit was discussed with the patient/authorized customer service representative teacher; all questions welcomed and answered. Patient/authorized customer service representative teacher agreed to proceed Lenora Henning MD [1] Social History Tobacco Use Smoking status: Former Current packs/day: 0.00 Types: Cigarettes Smokeless tobacco: Never Vaping Use Vaping status: current everyday user Substances: Nicotine, Flavoring Substance Use Topics Alcohol use: Not Currently Alcohol/week: 1.0 standard drink of alcohol Types: 1 Cans of beer per week Drug use: Yes Types: Marijuana Comment: does use CBD, used heroin, crack, marijuana, meth in past. Last used heroin and crack November 12, 2021 documented in this encounterCommunity [facility]-2025 NoteHNO ID: [id number] Author: ?, ?, ? Service: ? Author Type: ? Type: Progress Notes Filed: 02/06/2025 15:03 Note Text: Lm to call me to schedule renal scan. [facility] History of Present illness Narrative* Kalyani Garber - 02/06/2025 3:03 PM EDT Lm to call me to schedule renal scan. Kalyani Green * Juany Anderson MD - 02/06/2025 2:15 PM EDT ESTABLISHED PATIENT OFFICE VISIT HISTORY OF PRESENT ILLNESS No chief complaint on file. Aissatou Betts is a 34 year old with a past medical history of hepatitis C(treated,) migraine, hypothyroidism (on levothyroxine). Substance use disorder (on Suboxone and gabapentin), Hodgkin disease (s/p chemo and radioation in 2008) , CKD in the setting of congenital solitary kidney, chronic hydro on the left side (follow with urology), reccurent UTI deafness in left ear, bioplar disorder (noton current treatment, never lithium) ADHD, PTSD?presenting to establish care for chronic kidney disease. Survivor of stage 4 Hodgekins Lymphoma in remission (status post radiation and chemotherapy) Previous pt of [facility] then saw Dr Margaret Perla @ 03/2024 Pt having hot/cold flashes, nausea, left low back upper buttock pain, unintended wt loss LAB RESULTS Creatinine Date Value Ref Range Status 12/20/2024 2.16 (H) 0.58 - 0.96 mg/dL Final Color (no units) Date Value 09/10/2023 Yellow 10/13/2014 Yellow Clarity (no units) Date Value 09/10/2023 Slightly Cloudy Glucose, Urine Date Value 09/10/2023 Trace 07/31/2018 neg mg/dL Bilirubin, Urine (no units) Date Value 09/10/2023 Negative 10/13/2014 Negative Ketones, Urine (no units) Date Value 09/10/2023 Negative 10/13/2014 Negative Specific Ramsay, Ur (no units) Date Value 09/10/2023 1.015 10/13/2014 1.025 Hemoglobin/Blood,Ur Date Value 09/10/2023 1+ 10/13/2014 Trace pH, Urine (no units) Date Value 09/10/2023 6.5 10/13/2014 6.0 Protein, Urine Date Value 09/10/2023 Comment: Visible blood causes falsely elevated results for analyte Protein. Due to this limitation, Protein will not be reported for patients whose urine contains visible blood. 07/31/2018 100 mg/dL Urobilinogen (no units) Date Value 09/10/2023 0.2 EU/dL 10/13/2014 0.2 Nitrites (no units) Date Value 09/10/2023 Negative 10/13/2014 Positive Leukest (no units) Date Value 10/13/2014 Small Leuk Esterase (no units) Date Value 09/10/2023 1+ ALLERGIES Allergen Reactions Atorvastatin Unknown Cats Shortness of Breath Droperidol Anaphylaxis Laxative Pill GI Upset Meperidine Unknown Sennosides Other: See Comments MEDICATIONS: levothyroxine (SYNTHROID) 75 mcg tablet Take 1 tablet by mouth daily before breakfast. SUMAtriptan (IMITREX) 100 mg tablet Take 1 tablet by mouth as needed for migraine headache (see administration instructions) (do not use on more than 2 dyas per week.). May repeat dose after 2 hours if needed. Maximum daily dose is 200 mg per day. No more than 9 doses in a month. omeprazole (PRILOSEC) 40 mg capsule Take 1 capsule by mouth once daily. buprenorphine-nalOXone SL (SUBOXONE) 8-2 mg subl Dissolve 2 tablets under the tongue once daily. D/T hyper active thyroid OTC PRODUCT Vitamin D drops valACYclovir (VALTREX) 500 mg tablet Take 1 tablet by mouth once daily. ondansetron orally disintegrating (ZOFRAN ODT) 4 mg disintegrating tablet Take 1 tablet by mouth every 8 hours as needed for nausea/vomiting. zinc sulfate 220 mg (50 mg zinc) capsule Take 1 capsule by mouth once daily for 21 days. etonogestrel (NEXPLANON) subdermal implant 68 mg 1 Each by SUBDERMAL route as directed. VITAMIN B-12 500 mcg tab tab(s) Take 1 tablet by mouth once daily. REVIEW OF SYSTEMS GENERAL:++ unintentional weight loss, malaise or fevers. NEUROLOGIC: pt is alert and oriented GENITOURINARY: No history of dysuria, frequency or incontinence DIRECTOR TRADING: Negative for abnormal vaginal bleeding, abnormal vaginal discharge HISTORIES PAST MEDICAL HISTORY Diagnosis Date Alcohol abuse polysubstance abuse. 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 Depression 10/12/2011 Headache High blood pressure per patient - associated with breathing History of delivery History of Hodgkin's lymphoma Hodgkin's disease 2008 S/p chemo/radiation Hypothyroidism Solitary kidney, congenital pt born with single kidney FAMILY HISTORY Problem Relation Age of Onset Hypertension Mother other (depresssion) Mother No Known Problems Father Lung Cancer Maternal Grandfather other (ulcerative colitis) Paternal Grandmother Diabetes Maternal Aunt PAST SURGICAL HISTORY Procedure Laterality Date SECTION HX 02/24/2016 COLONOSCOPY SCREENING 2022 HERPES 1 & 2, IGB+ 2011 NEXPLANON INSERTION Left 04/20/2023 Placed in office PAST SURGICAL HISTORY OF kidney surgery PAST SURGICAL HISTORY OF rectal PAST SURGICAL HISTORY OF 06/09/2009 Left Supraclavicular Lymphnode Excision VSD CLOSURE SOCIAL HISTORY SOCIAL HISTORY[1] PHYSICAL EXAMINATION General appearance: Well appearing, alert, in no acute distress, well-hydrated, well nourished Psych Alert and oriented to person, place and time Respiratory: no wheezing or rhonchi Abdomen 12/20/2024 Scr 2.2, eGFR 30 02/29/2024 MRU ([facility]) chronic left hydro/ureter, Boz 1 cysts, dysmorphic left kidney 03/22/2022 CT flank mod left hydro/ureter Assessment and Plan: CRI- chemo hurt her kidney, she's stage 3b and sees Nephrology at main Left hydro- chronic left hydro (congenital solitary left kidney) of uncertain etiology - she's had microhem in the past per pt, no gross - currently having some left flank/buttock pain (no LE radiation). Says she had a failed C&P @ the doc didn't know where the dye went due to my anatomy Biggest concern is that she's obstructed. MAG 3 wont be super reliable due to her RI but will orderthen suggested another C&P and she's agreeable M- order MAG 3 renal scan H- Schedule C&P, possible left diagnostic ureteroscopy, left stent [1] Social History Tobacco Use Smoking status: Every Day Current packs/day: 0.50 Average packs/day: 0.5 packs/day for 0.7 years (0.4 ttl pk-yrs) Types: Cigarettes Smokeless tobacco: Never Vaping Use Vaping status: current everyday user Substances: Nicotine, Flavoring Substance Use Topics Alcohol use: Not Currently Alcohol/week: 1.0 standard drink of alcohol Types: 1 Cans of beer per week Drug use: Yes Types: Marijuana Comment: does use CBD, used heroin, crack, marijuana, meth in past. Last used heroin and crack November 12, 2021 documented in this encounterCommunity [facility]08-14-2025 NoteHNO ID: [id number] Author: JUANY ANDERSON MD Service: ? Author Type: Physician Type: Progress Notes Filed: 02/06/2025 14:51 Note Text: ESTABLISHED PATIENT OFFICE VISIT HISTORY OF PRESENT ILLNESS No chief complaint on file. Aissatou Betts is a 34 year old with a past medical history of hepatitis C(treated,) migraine, hypothyroidism (on levothyroxine). Substance use disorder (on Suboxone and gabapentin), Hodgkin disease (s/p chemo and radioation in 2008) , CKD in the setting of congenital solitary kidney, chronic hydro on the left side (follow with urology), reccurent UTI deafness in left ear, bioplar disorder (not on current treatment, never lithium) ADHD, PTSD?presenting to establish care for chronic kidney disease. Survivor of stage 4 Hodgekins Lymphoma in remission (status post radiation and chemotherapy) Previous pt of [place] then saw Dr Margaret Perla @ 03/2024 Pt having hot/cold flashes, nausea, left low back upper buttock pain, unintended wt loss LAB RESULTS Creatinine Date Value Ref Range Status 12/20/2024 2.16 (H) 0.58 - 0.96 mg/dL Final Color (no units) Date Value 09/10/2023 Yellow 10/13/2014 Yellow Clarity (no units) Date Value 09/10/2023 Slightly Cloudy Glucose, Urine Date Value 09/10/2023 Trace 07/31/2018 neg mg/dL Bilirubin, Urine (no units) Date Value 09/10/2023 Negative 10/13/2014 Negative Ketones, Urine (no units) Date Value 09/10/2023 Negative 10/13/2014 Negative Specific Ramsay, Ur (no units) Date Value 09/10/2023 1.015 10/13/2014 1.025 Hemoglobin/Blood,Ur Date Value 09/10/2023 1+ 10/13/2014 Trace pH, Urine (no units) Date Value 09/10/2023 6.5 10/13/2014 6.0 Protein, Urine Date Value 09/10/2023 Comment: Visible blood causes falsely elevated results for analyte Protein. Due to this limitation, Protein will not be reported for patients whose urine contains visible blood. 07/31/2018 100 mg/dL Urobilinogen (no units) Date Value 09/10/2023 0.2 EU/dL 10/13/2014 0.2 Nitrites (no units) Date Value 09/10/2023 Negative 10/13/2014 Positive Leukest (no units) Date Value 10/13/2014 Small Leuk Esterase (no units) Date Value 09/10/2023 1+ ALLERGIES Allergen Reactions Atorvastatin Unknown Cats Shortness of Breath Droperidol Anaphylaxis Laxative Pill GI Upset Meperidine Unknown Sennosides Other: See Comments MEDICATIONS: levothyroxine (SYNTHROID) 75 mcg tablet Take 1 tablet by mouth daily before breakfast. SUMAtriptan (IMITREX) 100 mg tablet Take 1 tablet by mouth as needed for migraine headache (see administration instructions) (do not use on more than 2 dyas per week.). May repeat dose after 2 hours if needed. Maximum daily dose is 200 mg per day. No more than 9 doses in a month. omeprazole (PRILOSEC) 40 mg capsule Take 1 capsule by mouth once daily. buprenorphine-nalOXone SL (SUBOXONE) 8-2 mg subl Dissolve 2 tablets under the tongue once daily. D/T hyper active thyroid OTC PRODUCT Vitamin D drops valACYclovir (VALTREX) 500 mg tablet Take 1 tablet by mouth once daily. ondansetron orally disintegrating (ZOFRAN ODT) 4 mg disintegrating tablet Take 1 tablet by mouth every 8 hours as needed for nausea/vomiting. zinc sulfate 220 mg (50 mg zinc) capsule Take 1 capsule by mouth once daily for 21 days. etonogestrel (NEXPLANON) subdermal implant 68 mg 1 Each by SUBDERMAL route as directed. VITAMIN B-12 500 mcg tab tab(s) Take 1 tablet by mouth once daily. REVIEW OF SYSTEMS GENERAL:++ unintentional weight loss, malaise or fevers. NEUROLOGIC: pt is alert and oriented GENITOURINARY: No history of dysuria, frequency or incontinence DIRECTOR TRADING: Negative for abnormal vaginal bleeding, abnormal vaginal discharge HISTORIES PAST MEDICAL HISTORY Diagnosis Date Alcohol abuse polysubstance abuse. 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 Depression 10/12/2011 Headache High blood pressure per patient - associated with breathing History of delivery History of Hodgkin's lymphoma Hodgkin's disease 2008 S/p chemo/radiation Hypothyroidism Solitary kidney, congenital pt born with single kidney FAMILY HISTORY Problem Relation Age of Onset Hypertension Mother other (depresssion) Mother No Known Problems Father Lung Cancer Maternal Grandfather other (ulcerative colitis) Paternal Grandmother Diabetes Maternal Aunt PAST SURGICAL HISTORY Procedure Laterality Date SECTION HX 02/24/2016 COLONOSCOPY SCREENING 2022 HERPES 1 AND 2, IGB+ 2011 NEXPLANON INSERTION Left 04/20/2023 Placed in office PAST SURGICAL HISTORY OF kidney surgery PAST SURGICAL HISTORY OF rectal PAST SURGICAL HISTORY OF 06/09/2009 Left Supraclavicular Lymphnode Excision VSD CLOSURE SOCIAL HISTORY SOCIAL HISTORY[1] PHYSICAL EXAMINATION General appearance: W (more content not included)...[facility] 02-06-2025 NoteHNO ID: [id number] Author: JUAN R GARCIA MD Service: ? Author Type: Physician Type: Progress Notes Filed: 02/06/2025 11:18 Note Text: HISTORY OF PRESENT ILLNESS: Aissatou Betts is a 34 year old female referred for unintentional weight loss. HD stage IV 2741-4555 Had diffuse adenopathy, no B sx at that time, just pruritus. Treated with [place] V in [facility], [place]. Obtained CR HD had diffuse LN involvement, also intestinal and bone marrow involvement. Eating with Ensure, going right through her. No energy. Having hot and cold flashes, no B sx per se. Recent labs ok, chest x ray ok CLINICAL IMPRESSION: Weight loss. History hodgkin lymphoma, doubtful that hodgkins is reason for weight loss RECOMMENDATION/PLAN: 1. CT scans for monitoring 2. Sed rate today 3. Follow up via MyChart Written and verbal health teaching given to patient, patient verbalizes understanding and agrees with treatment plan. PAST MEDICAL HISTORY Diagnosis Date Alcohol abuse polysubstance abuse. 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 Depression 10/12/2011 Headache High blood pressure per patient - associated with breathing History of delivery History of Hodgkin's lymphoma Hodgkin's disease 2008 S/p chemo/radiation Hypothyroidism Solitary kidney, congenital pt born with single kidney PAST SURGICAL HISTORY Procedure Laterality Date SECTION HX 02/24/2016 COLONOSCOPY SCREENING 2022 HERPES 1 AND 2, IGB+ 2011 NEXPLANON INSERTION Left 04/20/2023 Placed in office PAST SURGICAL HISTORY OF kidney surgery PAST SURGICAL HISTORY OF rectal PAST SURGICAL HISTORY OF 06/09/2009 Left Supraclavicular Lymphnode Excision VSD CLOSURE FAMILY HISTORY Problem Relation Age of Onset Hypertension Mother other (depresssion) Mother No Known Problems Father Lung Cancer Maternal Grandfather other (ulcerative colitis) Paternal Grandmother Diabetes Maternal Aunt SOCIAL HISTORY[1] ALLERGIES: ALLERGIES Allergen Reactions Atorvastatin Unknown Cats Shortness of Breath Droperidol Anaphylaxis Laxative Pill GI Upset Meperidine Unknown Sennosides Other: See Comments CURRENT OUTPATIENT MEDICATIONS: levothyroxine (SYNTHROID) 75 mcg tablet Take 1 tablet by mouth daily before breakfast. SUMAtriptan (IMITREX) 100 mg tablet Take 1 tablet by mouth as needed for migraine headache (see administration instructions) (do not use on more than 2 dyas per week.). May repeat dose after 2 hours if needed. Maximum daily dose is 200 mg per day. No more than 9 doses in a month. omeprazole (PRILOSEC) 40 mg capsule Take 1 capsule by mouth once daily. buprenorphine-nalOXone SL (SUBOXONE) 8-2 mg subl Dissolve 2 tablets under the tongue once daily. D/T hyper active thyroid OTC PRODUCT Vitamin D drops valACYclovir (VALTREX) 500 mg tablet Take 1 tablet by mouth once daily. ondansetron orally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 intact, normal gait, no involuntary motions. No visits with results within 1 Day(s) from this visit. Latest known visit with results is: Office Visit on 01/23/2025 Component Date Value Ref Range Status GLUCOSE UA (POCT) 01/23/2025 Negative Negative mg/dL Final BILIRUBIN UA (POCT) 01/23/2025 Negative Negative Final KETONE UA (POCT) 01/23/2025 Negative Negative mg/dL Final SPECIFIC GRAVITY UA (POCT) 01/23/2025 1.020 1.005 - 1.030 Final HEMOGLOBIN/BLOOD UA (POCT) 01/23/2025 Trace-intact (A) Negative Final PH UA (POCT) 01/23/2025 7.0 4.5 - 8.0 Final PROTEIN UA (POCT) 01/23/2025 >=300 (A) Negative mg/dL Final UROBILINOGEN UA (POCT) 01/23/2025 0.2 Normal E.U./dL Final NITRITE UA (POCT) 01/23/2025 Negative Negative Final LEUKOCYTES UA (POCT) 01/23/2025 Negative Negative Final COLOR UA (POCT) 01/23/2025 Light yellow Final CLARITY UA (POCT) 01/23/2025 Clear Final GLUCOSE UA (POCT) 01/23/2025 100 (A) Negative mg/dL Final BILIRUBIN UA (POCT) 01/23/2025 Negative Negative Final KETONE UA (POCT) 01/23/2025 Negative Negative mg/dL Final SPECIFIC GRAVITY UA (POCT) 01/23/2025 1.020 1.005 - 1.030 Final HEMOGLOBIN/BLOOD UA (POCT) 01/23/2025 Trace-intact (A) Negative Final PH UA (POCT) 01/23/2025 7.0 4.5 - 8.0 Final PROTEIN UA (POCT) 01/23/2025 >=300 (A) Negative mg/dL Final UROBILINOGEN UA (POCT) 01/23/2025 0.2 Normal E.U./dL Final NITRITE UA (POCT) 01/23/2025 Negative Negative Final LEUKOCYTES UA (POCT) 01/23/2025 Negative Negative Final COLOR UA (POCT) 01/23/2025 Yellow Final CLARITY UA (POCT) 01/23/2025 Clear Final Labs: (No date, newer) - CBC: Hemoglobin 11.3 g/dL (slightly anemic) - A1c: Normal - Iron Panel: - Iron: 100 - B12: Normal - Folate: Normal - Ferritin: Normal (No date, older) - CBC: Hemoglobin 8.0 g/dL (anemic) Imaging: (January) - CT abdomen: No findings stated (No date) - HIDA scan: Gallbladder ejection fraction 86% (normal) (No date) - Ultrasound (gallbladder): Sludge identified Tests: (01/12/2024) Gastric emptying study: Normal ASSESSMENT/PLAN: 1. Unintentional weight loss of more than 10 pounds in 90 days (R63.4) - Persistent, significant weight loss with inability to maintain weight despite nutritional supplements; ongoing GI symptoms including postprandial emesis and diarrhea. - Labs pending to assess nutritional status (protein, albumin, CBC). - Discussed potential need for further nutritional support pending lab results. - Refer to hematology/oncology for evaluation due to lymphoma history - Order Lyme disease serology in one month due to recent tick exposure. - Order titers for immunization status. 2. Hypothyroidism, unspecified type (E03.9) - TSH ordered today. 3. Gallbladder pain (K82.9) 4. Gallbladder sludge (K82.8) - Prior imaging showed gallbladder sludge; HIDA scan demonstrated 86% ejection fraction. - Refer to general surgery for evaluation of gallbladder pain and sludge. - Upper and lower endoscopy scheduled for February 11 at [facility]. 5. History of Hodgkin's lymphoma (Z85.71) - Refer to hematology/oncology for further evaluation. 6. Congenital solitary kidney (Q60.0) 7. Hydronephrosis of left kidney (N13.30) - Refer to urology for further evaluation and management. New medication(s) prescribed today: None. Counseling completed in adopting health behaviors such as avoiding excessive alcohol use, avoid tobacco use, improve nutrition, and engage in physical activities. Copy of written care plan, clinical summary, treatment plan, new medications, goals, and self management requirements were given to patient. Pam Yost APRN.WILLIAM documented [facility] Evaluation note* Diagnosis Stage 3 chronic kidney disease, unspecified whether stage 3a or 3b CKD (HCC)- Primary 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 Screening for genitourinary condition Screening for other and unspecified genitourinary condition Acute kidney injury Acute kidney failure, unspecified Hydronephrosis of left kidney Hydronephrosis Substance abuse (HCC) Other, mixed, or unspecified nondependent drug abuse, unspecified Metabolic acidosis Acidosis Hypokalemia Hypopotassemia Proteinuria, unspecified type documented [facility] encounter [facility] Instructions* Patient Instructions* Pancho Hooper MD - 01/23/2025 3:27 PM EDT Dear Ms. Betts, We will contact you with the results of the urine test and if any new medication is needed as discussed Do not hesitate to contact us if you have any questin Your Kidney team documented in this encounter[facility] History of Present illness Narrative* Pancho Hooper MD - 01/23/2025 2:00 PM EDT Images from the original note were not included. Department of Kidney Medicine Medical Specialties [facility] SERVICE DATE: 01/23/2025 SERVICE TIME: 2:47 PM . REQUESTING PHYSICIAN: Pam Yost APRN* PRIMARY CARE PHYSICIAN: Pam Yost APRN.AIR TRANSPORTATION PROVIDER HPI: Ms. Betts is a 34 year old with a past medical history of hepatitis C(treated,) migraine, hypothyroidism (on levothyroxine). Substance use disorder (on Suboxone and gabapentin), Hodgkin disease (s/p chemo and radioation in 2008) , CKD in the setting of congenital solitary kidney, chronic hydroon the left side, reccurent UTI deafness in left ear, bioplar disorder (not on current treatment, never lithium) ADHD, PTSD?presenting to establish care for chronic kidney disease. Baseline creatinine appears to be around 2.1 mg/dL with an estimated eGFR of 30 mL/min. She has no hyperkalemia or metabolic acidosis. UA today with glucose, Trace blood and >300 proteinCalcium was normal. By review of her creatinine trend it has hovering between 0.9-1.3 mg/dL in [id number]. In 03/2014 had an DAQUAN with a rise in her creatinine to 5.4 mg/dL, (iso of UTI,and hypotension, did not require dialysis) returned to 1.24 and has been since progressively trending up. She reports experiencing nausea, emesis, chills, fatigue, and back pain for the past 6 months. She also notes severe diarrhea occurring daily or every other day, particularly after eating, accompanied by hot and cold flashes. She denies dyspnea, chest pain, or recent urinary infections. She reportssignificant weight loss in the past few months She denies monitoring her blood pressure at home She no personal history of CVA or cardiac issues. She has a history of , with a second-trimester demise at 7.5 months due to unknown causes. She denies any other miscarriages. Previous Blood work: She is iron repleated with a TSAT of 39,and a ferritin of 79.9. TSH on the higher end but apparently she was out of her medication. She is anemic with a Hg of 11.3. Her most recent A1C was 5.3 Her most recent US in March 2024 showed a possible calculus in the left kidney, medical renal disease, mild hydronephrosis, and cross fused renal ectopia. A protein to creatinine ratio last year was elevated at 2.71 mg/mg of creatinine. (Was 0.7 in 2021) Of note she follows with urology for her chronic hydronephrosis. Last seen in 03/2024. Per urology note, MR Urogram (03/20/2024)... Results show chronic appearing dilation of the left ureter and intrarenal collecting system without evident obstructing mass...Chronic appearing dysmorphic left kidneywith probably benign Bosniak type 1 cysts.. PAST MEDICAL HISTORY: PAST MEDICAL HISTORY Diagnosis Date Alcohol abuse polysubstance abuse. 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 Depression 10/12/2011 Headache High blood pressure per patient - associated with breathing History of delivery Hodgkin's disease 2008 S/p chemo/radiation Hypothyroidism Solitary kidney, congenital pt born with single kidney PAST SURGICAL HISTORY: PAST SURGICAL HISTORY Procedure Laterality Date SECTION HX 02/24/2016 COLONOSCOPY SCREENING 2022 HERPES 1 & 2, IGB+ 2011 NEXPLANON INSERTION Left 04/20/2023 Placed in office PAST SURGICAL HISTORY OF kidney surgery PAST SURGICAL HISTORY OF rectal PAST SURGICAL HISTORY OF 06/09/2009 Left Supraclavicular Lymphnode Excision VSD CLOSURE FAMILY HISTORY: FAMILY HISTORY Problem Relation Age of Onset Hypertension Mother other (depresssion) Mother No Known Problems Father Lung Cancer Maternal Grandfather other (ulcerative colitis) Paternal Grandmother Diabetes Maternal Aunt SOCIAL HISTORY: Social History Tobacco Use Smoking status: Every Day Current packs/day: 0.50 Average packs/day: 0.5 packs/day for 0.7 years (0.4 ttl pk-yrs) Types: Cigarettes Smokeless tobacco: Never Vaping Use Vaping status: current everyday user Substances: Nicotine, Flavoring Substance Use Topics Alcohol use: Not Currently Alcohol/week: 1.0 standard drink of alcohol Types: 1 Cans of beer per week Drug use: Yes Types: Marijuana Comment: does use CBD, used heroin, crack, marijuana, meth in past. Last used heroin and crack November 12, 2021 MEDICATIONS: levothyroxine (SYNTHROID) 50 mcg tablet Take 1 tablet by mouth daily at 6 am. SUMAtriptan (IMITREX) 100 mg tablet Take 1 tablet by mouth as needed for migraine headache (see administration instructions) (do not use on more than 2 dyas per week.). May repeat dose after 2 hours if needed. Maximum daily dose is 200 mg per day. No more than 9 doses in a month. omeprazole (PRILOSEC) 40 mg capsule Take 1 capsule by mouth once daily. buprenorphine-nalOXone SL (SUBOXONE) 8-2 mg subl Dissolve 2 tablets under the tongue once daily. D/T hyper active thyroid OTC PRODUCT Vitamin D drops valACYclovir (VALTREX) 500 mg tablet Take 1 tablet by mouth once daily. ondansetron orally disintegrating (ZOFRAN ODT) 4 mg disintegrating tablet Take 1 tablet by mouth every 8 hours as needed for nausea/vomiting. zinc sulfate 220 mg (50 mg zinc) capsule Take 1 capsule by mouth once daily for 21 days. etonogestrel (NEXPLANON) subdermal implant 68 mg 1 Each by SUBDERMAL route as directed. VITAMIN B-12 500 mcg tab tab(s) Take 1 tablet by mouth once daily. ALLERGIES: ALLERGIES Allergen Reactions Atorvastatin Unknown Cats Shortness of Breath Droperidol Anaphylaxis Laxative Pill GI Upset Meperidine Unknown Sennosides Other: See Comments PHYSICAL EXAM: BP 110/73 Pulse (!) 57 Ht 175.3 cm (5' 9) Wt 48.5 kg (106 lb 14.8 oz) LMP 04/15/2023 (Exact Date) BMI 15.79 kg/m BP - standardized method Pulse 1 BP #1: 102/68 Pulse #1: 64 beats/min 2 BP #2 : 111/74 Pulse #2 : 56 beats/min 3 BP #3 : 117/78 Pulse #3 : 53 beats/min Average Average BP: 110/73 Average Pulse: 57 beats/min Orthostatic vitals Supine Sitting Standing Standing BP : 106/74 Standing pulse : 67 BP cuff location BP cuff location: Left upper arm BP cuff size BP cuff size: regular adult Comments for BP values First BP (right) First BP (left) Constitutional: Not in acute distress Eyes: Conjunctiva clear and PERRL Ear, Nose, and Throat: Hearing normal and Dentition normal Neck:Trachea midline Cardiovascular:Regular rate and rhythm, normal S1 and S2, no murmurs, rubs, or gallops No peripheral edema Respiratory: Normal respiratory effort. Lungs clear bilaterally. Abdomen:Soft, non-tender, non-distended. Normal bowel sounds. No hepatosplenomegaly. Musculoskeletal: No clubbing or cyanosis of digits., Normocephalic., and No muscle weakness, joint tenderness, or joint effusions. Neurologic: No focal deficint DATA: Diagnostic tests reviewed for today's visit: Blood work, imaging studies, and office notes were reviewed in epic Glucose (mg/dL) Date Value 12/20/2024 88 02/15/2021 79 Potassium (mmol/L) Date Value 12/20/2024 3.7 02/15/2021 4.0 Sodium (mmol/L) Date Value 12/20/2024 140 02/15/2021 141 Chloride (mmol/L) Date Value 12/20/2024 107 02/15/2021 110 CO2 (mmol/L) Date Value 12/20/2024 22 02/15/2021 17 Creatinine (mg/dL) Date Value 12/20/2024 2.16 02/15/2021 1.67 BUN (mg/dL) Date Value 12/20/2024 17 02/15/2021 16 Anion Gap (mmol/L) Date Value 12/20/2024 11 02/15/2021 14 Calcium (mg/dL) Date Value 02/15/2021 9.8 Calcium, Total (mg/dL) Date Value 12/20/2024 9.7 eGFR- (no units) Date Value 02/15/2021 44 Protein, Urine Date Value 09/10/2023 Comment: Visible blood causes falsely elevated results for analyte Protein. Due to this limitation, Protein will not be reported for patients whose urine contains visible blood. 07/31/2018 100 mg/dL Creatinine, Ur Random (UCRR) (mg/dL) Date Value 09/10/2023 23.6 03/28/2014 42.8 UA today with glucose, Trace blood and >300 protein ASSESSMENT: Ms. Betts is a 34 year old with a past medical history of hepatitis C(treated,) migraine, hypothyroidism (on levothyroxine). Substance use disorder (on Suboxone and gabapentin), Hodgkin disease (s/p chemo and radioation in 2008) , CKD in the setting of congenital solitary kidney, chronic hydro on the left side (follow with urology), reccurent UTI deafness in left ear, bioplar disorder (not on current treatment, never lithium) ADHD, PTSD?presenting to establish care for chronic kidney disease. PLAN: - CKD stage IIIB Etiology: solitary kidney, recurrent UTI, previous DAQUAN, chronic hydro Unlikely related to her Hepatitis C that has been treated Previous DAVID, C3,C4,anticardiolipin, beta 2 glycoprotein, SPEP negative Baseline creatinine 2.2 mg/dL She does not seem to be rapidly progressing -Will check UACR and UPCR as she had protein in the past -If she has persistent proteinuria, will consider low dose ACEi/ARB if her blood pressure tolerate.She is not a good candidate for SGLT-2 given chronic hydro on the left side and previous severe UTI -Given low BMI, with the next blood draw, will check a cystatin C -Ultimately preserving her kidney function would entail good blood pressure, good glycemic control and proteinuria control -Will need good blood pressure control, regular A1C -If she has proteinuria, she might not be a candidate for SGLT-2 given her previous UTI Electrolytes No major electrolytes abnormalities Has tendency to hypokalemia Acid Base No acidosis or alkalemia Volume status Euvolemic on physical exam Blood Pressure -At goal Anemia Iron repleted Can be secondary to menstrual loss At goal no need for STEFAN at the moment RTC in 3 months Pancho Hooper MD Staff, Department of Kidney Medicine 01/23/2025 2:47 PM Staff note: I have reviewed the consult note obtained and documented by the Fellow and I personally participated in the duenas components. I have discussed the case and management of the patient's care. The following comments revise or confirm relevant duenas components of the note. Disclosures: Parts of the currentprogress note may have been copied from a previous note, updates have been made as clinically relevant. 31 yof w/ CKD (prior DAQUAN in 2021 iso prolonged NSAID use & hypotension), solitary congenital kidney, Hypothyroidism, prior drug use (opiates, cocaine, amphetamine), hep C, Bipolar 1 # Proteinuric [id number] # Congenital Solitary L Kidney - Baseline Scr ~ 1.8-2 since 2019 - Major DAQUAN in Mar (Scr 5.47 > 1.45-2) - uPCR 2.71 on last check > year old # Hypokalemia - intermittent since 2012 - No hypomagnesemia (On protonix) # Metabolic acidosis - noted since 2012 (prior to CKD) # Left hydronephrosis - Chronic, unlikely to be contributing to renal dysfunction given stability. Would require evaluation w/ any acute worsening of renal fxn - Follows w/ urology Plan: - CKD iso solitary kidney & prior unrecovered DAQUAN w/ complicated med history above, has been stable as far as renal fxn is concerned. She has evidence of hyperfiltration & proteinuria as anticipated, will re-quantify at this time. Anti-proteinuric therapy may prove difficult (BP unlikely totolerate ACEi/ARB, recurrent UTIs would complicate SGLT2i use, GLP1a questionable w/ BMI of 15, maybe non steroids MRAs) - Otherwise routine CKD care - Cystatin C given body habitus - RTC in 3 months Romain Vail MD Staff, Department of Kidney Medicine 01/24/2025 9:16 AM documented in this encounterCommunity [facility]07-[facility] NoteHNO ID: [id number] Author: ROMAIN VAIL MD Service: ? Author Type: Fellow Type: Progress Notes Filed: 01/24/2025 09:28 Note Text: Department of Kidney Medicine Medical Specialties [facility] SERVICE DATE: 01/23/2025 SERVICE TIME: 2:47 PM . REQUESTING PHYSICIAN: Pam Yost APRN* PRIMARY CARE PHYSICIAN: Pam Yost APRN.AIR TRANSPORTATION PROVIDER HPI: Ms. Betts is a 34 year old with a past medical history of hepatitis C(treated,) migraine, hypothyroidism (on levothyroxine). Substance use disorder (on Suboxone and gabapentin), Hodgkin disease (s/p chemo and radioation in 2008) , CKD in the setting of congenital solitary kidney, chronic hydro on the left side, reccurent UTI deafness in left ear, bioplar disorder (not on current treatment, never lithium) ADHD, PTSD?presenting to establish care for chronic kidney disease. Baseline creatinine appears to be around 2.1 mg/dL with an estimated eGFR of 30 mL/min. She has no hyperkalemia or metabolic acidosis. UA today with glucose, Trace blood and >300 proteinCalcium was normal. By review of her creatinine trend it has hovering between 0.9-1.3 mg/dL in [id number]. In 03/2014 had an DAQUAN with a rise in her creatinine to 5.4 mg/dL, (iso of UTI,and hypotension, did not require dialysis) returned to 1.24 and has been since progressively trending up. She reports experiencing nausea, emesis, chills, fatigue, and back pain for the past 6 months. She also notes severe diarrhea occurring daily or every other day, particularly after eating, accompanied by hot and cold flashes. She denies dyspnea, chest pain, or recent urinary infections. She reports significant weight loss in the past few months She denies monitoring her blood pressure at home She no personal history of CVA or cardiac issues. She has a history of , with a second-trimester demise at 7.5 months due to unknown causes. She denies any other miscarriages. Previous Blood work: She is iron repleated with a TSAT of 39,and a ferritin of 79.9. TSH on the higher end but apparently she was out of her medication. She is anemic with a Hg of 11.3. Her most recent A1C was 5.3 Her most recent US in March 2024 showed a possible calculus in the left kidney, medical renal disease, mild hydronephrosis, and cross fused renal ectopia. A protein to creatinine ratio last year was elevated at 2.71 mg/mg of creatinine. (Was 0.7 in 2021) Of note she follows with urology for her chronic hydronephrosis. Last seen in 03/2024. Per urology note, MR Urogram (03/20/2024)... Results show chronic appearing dilation of the left ureter and intrarenal collecting system without evident obstructing mass...Chronic appearing dysmorphic left kidney with probably benign Bosniak type 1 cysts.. PAST MEDICAL HISTORY: PAST MEDICAL HISTORY Diagnosis Date Alcohol abuse polysubstance abuse. 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 Depression 10/12/2011 Headache High blood pressure per patient - associated with breathing History of delivery Hodgkin's disease 2008 S/p chemo/radiation Hypothyroidism Solitary kidney, congenital pt born with single kidney PAST SURGICAL HISTORY: PAST SURGICAL HISTORY Procedure Laterality Date SECTION HX 02/24/2016 COLONOSCOPY SCREENING 2022 HERPES 1 AND 2, IGB+ 2011 NEXPLANON INSERTION Left 04/20/2023 Placed in office PAST SURGICAL HISTORY OF kidney surgery PAST SURGICAL HISTORY OF rectal PAST SURGICAL HISTORY OF 06/09/2009 Left Supraclavicular Lymphnode Excision VSD CLOSURE FAMILY HISTORY: FAMILY HISTORY Problem Relation Age of Onset Hypertension Mother other (depresssion) Mother No Known Problems Father Lung Cancer Maternal Grandfather other (ulcerative colitis) Paternal Grandmother Diabetes Maternal Aunt SOCIAL HISTORY: Social History Tobacco Use Smoking status: Every Day Current packs/day: 0.50 Average packs/day: 0.5 packs/day for 0.7 years (0.4 ttl pk-yrs) Types: Cigarettes Smokeless tobacco: Never Vaping Use Vaping status: current everyday user Substances: Nicotine, Flavoring Substance Use Topics Alcohol use: Not Currently Alcohol/week: 1.0 standard drink of alcohol Types: 1 Cans of beer per week Drug use: Yes Types: Marijuana Comment: does use CBD, used heroin, crack, marijuana, meth in past. Last used heroin and crack November 12, 2021 MEDICATIONS: levothyroxine (SYNTHROID) 50 mcg tablet Take 1 tablet by mouth daily at 6 am. SUMAtriptan (IMITREX) 100 mg tablet Take 1 tablet by mouth as needed for migraine headache (see administration instructions) (do not use on more than 2 dyas per week.). May repeat dose after 2 hours if needed. Maximum daily dose is 200 mg per day. No more than 9 doses in a month. omeprazole (PRILOSEC) 40 mg capsule Take 1 capsu (more content not included)... [facility]07-31-2025 NotePatient Outreach (KAITY) AISSATOU BETTS ([id number]) 1990 F Date Time Provider Department 01/23/25 ROMAIN VAIL During your visit today, we recorded the following information about you: Allergies As of Date: 01/23/2025 Noted Allergy Reaction ATORVASTATIN 07/03/2015 16 - Unknown CATS 10/27/2010 12 - Shortness of Breath DROPERIDOL 08/06/2012 10 - Anaphylaxis LAXATIVE PILL 09/25/2019 8 - GI Upset MEPERIDINE 07/03/2015 16 - Unknown SENNOSIDES 09/25/2019 14 - Other: See Comments Date Reviewed: 01/23/2025 Reviewed by: Anurag Sung MA - Fully Assessed Visit Diagnosis:Screening for genitourinary condition [Z13.89] Order(s):UA DIP, URINE (POC) [[id number]] Order #: [id number] FUTURE Prescriptions as of 01/27/2025 - levothyroxine (SYNTHROID) 75 mcg tablet Take 1 tablet by mouth daily before breakfast. - SUMAtriptan (IMITREX) 100 mg tablet Take 1 tablet by mouth as needed for migraine headache (see administration instructions) (do not use on more than 2 dyas per week.). May repeat dose after 2 hours if needed. Maximum daily dose is 200 mg per day. No more than 9 doses in a month. - omeprazole (PRILOSEC) 40 mg capsule Take 1 capsule by mouth once daily. - buprenorphine-nalOXone SL (SUBOXONE) 8-2 mg subl Dissolve 2 tablets under the tongue once daily. D/T hyper active thyroid - OTC PRODUCT Vitamin D drops - valACYclovir (VALTREX) 500 mg tablet Take 1 tablet by mouth once daily. - ondansetron orally disintegrating (ZOFRAN ODT) 4 mg disintegrating tablet Take 1 tablet by mouth every 8 hours as needed for nausea/vomiting. - zinc sulfate 220 mg (50 mg zinc) capsule Take 1 capsule by mouth once daily for 21 days. - etonogestrel (NEXPLANON) subdermal implant 68 mg 1 Each by SUBDERMAL route as directed. - VITAMIN B-12 500 mcg tab tab(s) Take 1 tablet by mouth once daily. Meds Comments as of 03/23/2013: Pt. Denies taking any home medications Problem List As Of Date 01/23/2025 Noted Resolved Hodgkin lymphoma (HCC) [C81.90] 10/22/2010 Backache, unspecified [M54.9] 04/19/2011 Cervicalgia [M54.2] 04/19/2011 Depression [F32.A] 10/12/2011 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] 2011 Decreased hearing [H91.90] Bipolar 1 disorder (HCC) [F31.9] Left flank pain [R10.9] 02/19/2014 07/31/2018 Pyelonephritis [N12] 02/19/2014 09/12/2023 Substance abuse (HCC) [F19.10] 02/19/2014 DAQUAN (acute kidney injury) (HCC) [N17.9] 03/27/2014 09/10/2023 Nausea and vomiting [R11.2] 03/27/2014 07/31/2018 Numbness [R20.0] 06/28/2014 Trichomoniasis [A59.9] 07/31/2018 History of imperforate anus [Z87.738] 07/31/2018 Other specified hypothyroidism [E03.8] 07/31/2018 History of delivery [Z98.891] 07/31/2018 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] 07/31/2018 UTI (urinary tract infection) in , ant*07/31/2018 Chronic hepatitis C without hepatic coma (HCC) *07/31/2018 Iron deficiency anemia [D50.9] 07/31/2018 Social problem [Z60.9] 07/31/2018 History of delivery [Z87.51] 07/31/2018 Tobacco use disorder [F17.200] 07/31/2018 Buprenorphine maintenance treatment affecting p*07/31/2018 Supervision of high risk , antepartum *07/31/2018 Dizziness [R42] 12/21/2021 Acute kidney injury (HCC) [N17.9] 09/10/2023 Anxiety [F41.9] 09/10/2023 09/12/2023 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 PTSD (post-traumatic stress disorder) [F43.10] 09/11/2023 Zinc deficiency [E60] 09/12/2023 Anxiety disorder [F41.9] 11/08/2023 Vesicoureteral reflux with resulting kidney dis*07/11/2024 Vitamin D deficiency [E55.9] 03/04/2022 Moderate persistent asthma without complication*11/21/2022 Migraine [G43.909] 03/04/2022 Malignant neoplasm (HCC) [C80.1] 07/11/2024 09/17/2024 Idiopathic peripheral neuropathy [G60.9] 07/16/2015 Hydronephrosis of left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 with [place]. - Denies fever or chills; previously experienced hot sweats and cold, but resolved. - Requests Zofran for nausea, as Keflex causes nausea as well. Kidney Disease: - History of kidney disease with proteinuria. - Unable to see foundry engineer due to insurance issues. - Typically takes Keflex for kidney infections. Review of Systems Constitutional: Negative for chills and fever. Respiratory: Negative. Cardiovascular: Negative. Gastrointestinal: Positive for nausea. Negative for vomiting. Genitourinary: Positive for flank pain and frequency. Negative for difficulty urinating, dysuria, hematuria and urgency. Musculoskeletal: Negative for back pain. Skin: Negative for rash. Constitutional: (-) fever, (-) chills Gastrointestinal: (+) nausea, (+) vomiting, (-) abdominal pain Genitourinary: (+) left flank pain Objective BP 146/90 Pulse 78 Temp 36.1 ?C (97 ?F) Resp 18 Wt 53 kg (116 lb 13.5 oz) LMP 04/15/2023 (Exact Date) SpO2 99% BMI 17.25 kg/m? PAST MEDICAL HISTORY Diagnosis Date Alcohol abuse polysubstance abuse. 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 Depression 10/12/2011 Headache High blood pressure per patient - associated with breathing History of delivery Hodgkin's disease 2008 S/p chemo/radiation Hypothyroidism Solitary kidney, congenital pt born with single kidney PAST SURGICAL HISTORY Procedure Laterality Date SECTION HX 02/24/2016 COLONOSCOPY SCREENING 2022 HERPES 1 AND 2, IGB+ 2012 NEXPLANON INSERTION Left 04/20/2023 Placed in office PAST SURGICAL HISTORY OF kidney surgery PAST SURGICAL HISTORY OF rectal PAST SURGICAL HISTORY OF 06/09/2009 Left Supraclavicular Lymphnode Excision VSD CLOSURE ALLERGIES Atorvastatin, Cats, Droperidol, Laxative Pill, Meperidine, and Sennosides MEDICATIONS VRAYLAR 1.5 mg capsule Take 1 capsule by mouth every other day. buprenorphine-nalOXone SL (SUBOXONE) 8-2 mg subl Dissolve 2 tablets under the tongue once daily. D/T hyper active thyroid levothyroxine (SYNTHROID) 50 mcg tablet Take 1 tablet by mouth daily at 6 am. valACYclovir (VALTREX) 500 mg tablet Take 1 tablet by mouth once daily. SUMAtriptan (IMITREX) 100 mg tablet Take 1 tablet (100 mg) by mouth as needed for migraine headache (see administration instructions) (do not use on more than 2 dyas per week.). May repeat dose after 2 hours if needed. Maximum daily dose is 200 mg per day. No more than 9 doses in a month. ADVAIR DISKUS 500-50 mcg/dose dsdv Inhale 1 Puff as instructed two times a day. RINSE AND GARGLE MOUTH WITH WATER AFTER EACH USE. gabapentin (NEURONTIN) 100 mg capsule Take 1 capsule by mouth three times a day for 12 doses. Do not start before September 16, 2023. zinc sulfate 220 mg (50 mg zinc) capsule Take 1 capsule by mouth once daily for 21 days. etonogestrel (NEXPLANON) subdermal implant 68 mg 1 Each by SUBDERMAL route as directed. VITAMIN D-3 50 mcg (2,000 unit) cap Take 1 capsule by mouth once daily. VITAMIN B-12 500 mcg tab tab(s) Take 1 tablet by mouth once daily. cephALEXin (KEFLEX) 500 mg capsule Take 1 capsule by mouth three times a day for 7 days. ondansetron orally disintegrating (ZOFRAN ODT) 4 mg disintegrating tablet Take 1 tablet by mouth every 8 hours as needed for nausea/vomiting. omeprazole (PRILOSEC) 40 mg capsule Take 1 capsule by mouth once daily. (Patient not taking: Reported on 11/22/2024) OTC PRODUCT Vitamin D drops (Patient not taking: Reported on 11/22/2024) montelukast (SINGULAIR) 10 mg tablet Take 1 tablet by mouth daily at bedtime. (Patient not taking: Reported on 11/22/2024) ondansetron orally disintegrating (ZOFRAN ODT) 4 mg disintegrating tablet Take 1 tablet by mouth every 8 hours as needed for nausea/vomiting. (Patient not taking: Reported on 11/22/2024) hydrOXYzine HCl (ATARAX) 50 mg tablet (Patient not taking: Reported on 11/22/2024) FAMILY HISTORY Problem Relation Age of Onset Hypertension Mother other (depresssion) Mother No Known Problems Father Lung Cancer Maternal Grandfather other (ulcerative colitis) Paternal Grandmother Diabetes Maternal Aunt Social History Tobacco Use Smoking status: Every Day Current packs/day: 0.50 [employer] (more content not included)...[facility]05-30-2025 History of Present illness Narrative* Gustavo Harmon APRN.[facility] [place] - 11/22/2024 9:18 AM EDT [facility] Subjective Aissatou Betts is a 34 year old female. Patient presents with: Urinary Problem: Frequency, Left side flank pain, nausea x 2 days HPI Flank Pain and Emesis: - Left-sided flank pain and emesis, believes it is due to a kidney infection. - Symptoms have been ongoing for a while. - Was seen in ER on 11/13 but no treatment was prescribed. - Unable to see her kidney doctors due to insurance issues with [place]. - Denies fever or chills; previously experienced hot sweats and cold, but resolved. - Requests Zofran for nausea, as Keflex causes nausea as well. Kidney Disease: - History of kidney disease with proteinuria. - Unable to see foundry engineer due to insurance issues. - Typically takes Keflex for kidney infections. Review of Systems Constitutional: Negative for chills and fever. Respiratory: Negative. Cardiovascular: Negative. Gastrointestinal: Positive for nausea. Negative for vomiting. Genitourinary: Positive for flank pain and frequency. Negative for difficulty urinating, dysuria, hematuria and urgency. Musculoskeletal: Negative for back pain. Skin: Negative for rash. Constitutional: (-) fever, (-) chills Gastrointestinal: (+) nausea, (+) vomiting, (-) abdominal pain Genitourinary: (+) left flank pain Objective BP 146/90 Pulse 78 Temp 36.1 C (97 F) Resp 18 Wt 53 kg (116 lb 13.5 oz) LMP 04/15/2023 (Exact Date) SpO2 99% BMI 17.25 kg/m PAST MEDICAL HISTORY Diagnosis Date Alcohol abuse polysubstance abuse. 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 Depression 10/12/2011 Headache High blood pressure per patient - associated with breathing History of delivery Hodgkin's disease 2008 S/p chemo/radiation Hypothyroidism Solitary kidney, congenital pt born with single kidney PAST SURGICAL HISTORY Procedure Laterality Date SECTION HX 02/24/2016 COLONOSCOPY SCREENING 2022 HERPES 1 & 2, IGB+ 2011 NEXPLANON INSERTION Left 04/20/2023 Placed in office PAST SURGICAL HISTORY OF kidney surgery PAST SURGICAL HISTORY OF rectal PAST SURGICAL HISTORY OF 06/09/2009 Left Supraclavicular Lymphnode Excision VSD CLOSURE ALLERGIES Atorvastatin, Cats, Droperidol, Laxative Pill, Meperidine, and Sennosides MEDICATIONS VRAYLAR 1.5 mg capsule Take 1 capsule by mouth every other day. buprenorphine-nalOXone SL (SUBOXONE) 8-2 mg subl Dissolve 2 tablets under the tongue once daily. D/T hyper active thyroid levothyroxine (SYNTHROID) 50 mcg tablet Take 1 tablet by mouth daily at 6 am. valACYclovir (VALTREX) 500 mg tablet Take 1 tablet by mouth once daily. SUMAtriptan (IMITREX) 100 mg tablet Take 1 tablet (100 mg) by mouth as needed for migraine headache(see administration instructions) (do not use on more than 2 dyas per week.). May repeat dose after2 hours if needed. Maximum daily dose is 200 mg per day. No more than 9 doses in a month. ADVAIR DISKUS 500-50 mcg/dose dsdv Inhale 1 Puff as instructed two times a day. RINSE AND GARGLE MOUTH WITH WATER AFTER EACH USE. gabapentin (NEURONTIN) 100 mg capsule Take 1 capsule by mouth three times a day for 12 doses. Do not start before September 16, 2023. zinc sulfate 220 mg (50 mg zinc) capsule Take 1 capsule by mouth once daily for 21 days. etonogestrel (NEXPLANON) subdermal implant 68 mg 1 Each by SUBDERMAL route as directed. VITAMIN D-3 50 mcg (2,000 unit) cap Take 1 capsule by mouth once daily. VITAMIN B-12 500 mcg tab tab(s) Take 1 tablet by mouth once daily. cephALEXin (KEFLEX) 500 mg capsule Take 1 capsule by mouth three times a day for 7 days. ondansetron orally disintegrating (ZOFRAN ODT) 4 mg disintegrating tablet Take 1 tablet by mouth every 8 hours as needed for nausea/vomiting. omeprazole (PRILOSEC) 40 mg capsule Take 1 capsule by mouth once daily. (Patient not taking: Reported on 11/22/2024) OTC PRODUCT Vitamin D drops (Patient not taking: Reported on 11/22/2024) montelukast (SINGULAIR) 10 mg tablet Take 1 tablet by mouth daily at bedtime. (Patient not taking: Reported on 11/22/2024) ondansetron orally disintegrating (ZOFRAN ODT) 4 mg disintegrating tablet Take 1 tablet by mouth every 8 hours as needed for nausea/vomiting. (Patient not taking: Reported on 11/22/2024) hydrOXYzine HCl (ATARAX) 50 mg tablet (Patient not taking: Reported on 11/22/2024) FAMILY HISTORY Problem Relation Age of Onset Hypertension Mother other (depresssion) Mother No Known Problems Father Lung Cancer Maternal Grandfather other (ulcerative colitis) Paternal Grandmother Diabetes Maternal Aunt Social History Tobacco Use Smoking status: Every Day Current packs/day: 0.50 Average packs/day: 0.5 packs/day for 0.7 years (0.4 ttl pk-yrs) Types: Cigarettes Smokeless tobacco: Never Vaping Use Vaping status: current everyday user Substances: Nicotine, Flavoring Substance Use Topics Alcohol use: Not Currently Alcohol/week: 1.0 standard drink of alcohol Types: 1 Cans of beer per week Drug use: Not Currently Types: Marijuana Comment: does use CBD gummies, used heroin, crack, marijuana, meth in past. Last used heroin and crack November 12, 2021 Physical Exam Vitals and nursing note reviewed. Constitutional: General: She is not in acute distress. Appearance: Normal appearance. She is not ill-appearing. Cardiovascular: Rate and Rhythm: Normal rate and regular rhythm. Heart sounds: Normal heart sounds. Pulmonary: Effort: Pulmonary effort is normal. No respiratory distress. Breath sounds: Normal breath sounds. No wheezing or rales. Abdominal: General: There is no distension. Palpations: Abdomen is soft. There is no mass. Tenderness: There is no abdominal tenderness. There is no right CVA tenderness, left CVA tendernessor guarding. Skin: General: Skin is warm and dry. Neurological: Mental Status: She is alert. General: No acute distress. Abd: No tenderness to palpation. {1. Frequency of urination (R35.0) 2. Left flank pain (R10.9) - Left-sided flank pain with radiation to shoulder; tenderness on palpation. - Initiated Keflex; sent prescription to pharmacy. - Advised to complete the full course of antibiotics unless notified of a change based on culture results. - If pain worsens, instructed to seek emergency care. 3. Hematuria, unspecified type (R31.9) - Urinalysis shows hematuria. - Sent urine culture to identify potential bacterial growth. 4. Nausea (R11.0) - Prescribed Zofran for nausea management. 5. Kidney disease (N28.9) - Proteinuria noted in urinalysis, consistent with chronic kidney disease. - Advised to follow up with foundry engineer as soon as possible. - CMP ordered to check kidney function. - Last eGFR was 35 (02/15/2024) - Follow-up with your PCP in 3-5 days if symptoms have not improved or sooner if symptoms worsen - Discussed red flags and need for immediate medical evaluation if any occur. - Discussed supportive care treatment with fluids, rest and analgesia. - Discussed expected course of illness Gustavo Harmon APRN.AIR TRANSPORTATION PROVIDER and Recording using [employer] software for draft documentation of the visit was discussed with thepatient/authorized customer service representative teacher; all questions welcomed and answered. Patient/authorized customer service representative teacher agreed to proceed Procedures documented in this encounterCommunity [facility]05-27-2025 NoteHNO ID: [id number] Author: REEMA RESENDEZ LPN Service: ? Author Type: LICENSED NURSE Type: Progress Notes Filed: 2024 13:06 Note Text: ED Follow-Up Note Provider Action / FYI: Call completed by: TRACIE Patient seen in ED: Out of Network ED Contact made with Patient: Yes The patient was identified by Name and Date of . Discussed Care with: patient Patient was seen in the Emergency Department (ED) Location: [place] Date: 11/13/2024 Reason for ED Visit: Chronic Kidney disease/vomiting ED Intervention: CT abd pelvis without contrast Labs Urine New Medications: None Medication Changes: None Does patient understand medication changes: N/A Can patient afford medication changes: N/A Patient educated on worsening symptoms and when and where to seek additional care: No Patient Education Provided including treatment plan and new orders. Patient provided with appropriate counseling: Yes Per pt she is feeling better. However pt would like to schedule follow up as she now has insurance. Reema Resendez [facility]05-22-2025 NoteHNO ID: [id number] Author: REEMA RESENDEZ LPN Service: ? Author Type: LICENSED NURSE Type: Progress Notes Filed: 11/14/2024 14:07 Note Text: ED Follow-Up Note Provider Action / FYI: Call completed by: TRACIE Patient seen in ED: Out of Network ED Contact made with Patient: No, left message. Reema Resendez LPN November 14, 2024 2:07 [facility]05-22-2025 NotePatient Outreach (AGFAMPLE) AISSATOU BETTS ([id number]) 1990 F Date Time Provider Department 11/14/24 PAM YOST During your visit today, we recorded the following information about you: Reema Resendez LPN 11/14/2024 2:07 PM Signed ED Follow-Up Note Provider Action / FYI: Call completed by: TRACIE Patient seen in ED: Out of Network ED Contact made with Patient: No, left message. Reema Resendez LPN November 14, 2024 2:07 PM Reema Resendez LPN 2024 1:06 PM Signed ED Follow-Up Note Provider Action / FYI: Call completed by: TRACIE Patient seen in ED: Out of Network ED Contact made with Patient: Yes The patient was identified by Name and Date of . Discussed Care with: patient Patient was seen in the Emergency Department (ED) Location: [place] Date: 11/13/2024 Reason for ED Visit: Chronic Kidney disease/vomiting ED Intervention: CT abd pelvis without contrast Labs Urine New Medications: None Medication Changes: None Does patient understand medication changes: N/A Can patient afford medication changes: N/A Patient educated on worsening symptoms and when and where to seek additional care: No Patient Education Provided including treatment plan and new orders. Patient provided with appropriate counseling: Yes Per pt she is feeling better. However pt would like to schedule follow up as she now has insurance. Reema Resendez LPN Allergies As of Date: 11/14/2024 Noted Allergy Reaction ATORVASTATIN 07/03/2015 16 - Unknown CATS 10/27/2010 12 - Shortness of Breath DROPERIDOL 08/06/2012 10 - Anaphylaxis LAXATIVE PILL 09/25/2019 8 - GI Upset MEPERIDINE 07/03/2015 16 - Unknown SENNOSIDES 09/25/2019 14 - Other: See Comments Date Reviewed: 11/13/2024 Reviewed by: Soniya Hollins LPN - Fully Assessed Reason for Visit: ED Follow-up [821] Cmt: [place] ED 11/13/2024 Prescriptions as of 2024 - omeprazole (PRILOSEC) 40 mg capsule Take 1 capsule by mouth once daily. - buprenorphine-naloxone (SUBOXONE) 2-0.5 mg film once daily. - OTC PRODUCT Vitamin D drops - levothyroxine (SYNTHROID) 50 mcg tablet Take 1 tablet by mouth daily at 6 am. - valACYclovir (VALTREX) 500 mg tablet Take 1 tablet by mouth once daily. - SUMAtriptan (IMITREX) 100 mg tablet Take 1 tablet (100 mg) by mouth as needed for migraine headache (see administration instructions) (do not use on more than 2 dyas per week.). May repeat dose after 2 hours if needed. Maximum daily dose is 200 mg per day. No more than 9 doses in a month. - ADVAIR DISKUS 500-50 mcg/dose dsdv Inhale 1 Puff as instructed two times a day. RINSE AND GARGLE MOUTH WITH WATER AFTER EACH USE. - montelukast (SINGULAIR) 10 mg tablet Take 1 tablet by mouth daily at bedtime. - ondansetron orally disintegrating (ZOFRAN ODT) 4 mg disintegrating tablet Take 1 tablet by mouth every 8 hours as needed for nausea/vomiting. - hydrOXYzine HCl (ATARAX) 50 mg tablet - gabapentin (NEURONTIN) 100 mg capsule Take 1 capsule by mouth three times a day for 12 doses. Do not start before September 16, 2023. - zinc sulfate 220 mg (50 mg zinc) capsule Take 1 capsule by mouth once daily for 21 days. - etonogestrel (NEXPLANON) subdermal implant 68 mg 1 Each by SUBDERMAL route as directed. - VITAMIN D-3 50 mcg (2,000 unit) cap Take 1 capsule by mouth once daily. - VITAMIN B-12 500 mcg tab tab(s) Take 1 tablet by mouth once daily. Meds Comments as of 03/23/2013: Pt. Denies taking any home medications Problem List As Of Date 11/14/2024 Noted Resolved Hodgkin lymphoma (HCC) [C81.90] 10/22/2010 Backache, unspecified [M54.9] 04/19/2011 Cervicalgia [M54.2] 04/19/2011 Depression [F32.A] 10/12/2011 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] 2011 Decreased hearing [H91.90] Bipolar 1 disorder (HCC) [F31.9] Left flank pain [R10.9] 02/19/2014 07/31/2018 Pyelonephritis [N12] 02/19/2014 09/12/2023 Substance abuse (HCC) [F19.10] 02/19/2014 DAQUAN (acute kidney injury) (HCC) [N17.9] 03/27/2014 09/10/2023 Nausea and vomiting [R11.2] 03/27/2014 07/31/2018 Numbness [R20.0] 06/28/2014 Trichomoniasis [A59.9] 07/31/2018 History of imperforate anus [Z87.738] 07/31/2018 Other specified hypothyroidism [E03.8] 07/31/2018 History of delivery [Z98.891] 07/31/2018 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] 07/31/2018 UTI (urinary tract infection) in , ant*07/31/2018 Chronic hepatitis C without hepatic coma (HCC) *07/31/2018 Iron deficiency anemia [D50.9] 07/31/2018 Social problem [Z60.9] 07/31/2018 History of delivery [Z87.51] 07/31/2018 Tobacco use disorder [F17.200] 07/31/2018 Buprenorphine maintenance treatment affecting p*07/31/2018 Supervision of high risk , antepartum *07/31/2018 Dizziness [R42] 12/21/2021 Acute kidney injury (HCC) [N17.9] 09/10/2023 Anxiety [F41.9] 09/10/2023 09/12/2023 VATER/VATERL syndrome [ (more content not included)...[facility]05-21-2025 NoteHNO ID: [id number] Author: THADDEUS SHELL APRN.AIR TRANSPORTATION PROVIDER Service: ? Author Type: Nurse Practitioner Type: Progress Notes Filed: 11/13/2024 14:27 Note Text: Patient came in with complaints of back pain. Patient says she has had nausea for about a week. Patient says she started vomiting today. Patient does have significant medical history including 1 kidney. Patient's urine showed significant amounts of protein but no findings of a UTI due to patient's symptoms and having 1 kidney patient really needs a more thorough exam that [facility] can do. Patient was referred to the emergency room.[facility]05-02-2025 Telephone encounter Note* Telephone Encounter - Charlotte Wisdom MA - 10/25/2024 5:06 PM EDT Left message informing patient, phone number to reach the office was left for any questions or concerns. Charlotte Wisdom MA [facility]05-02-2025 Miscellaneous Notes* Telephone Encounter - Charlotte Wisdom MA - 10/25/2024 5:06 PM EDT Left message informing patient, phone number to reach the office was left for any questions or concerns. Charlotte Wisdom MA * Telephone Encounter - Pam Yost APRN.CNP - 10/25/2024 4:59 PM EDT Due for fasting labs. Orders placed. [facility] Telephone encounter Note * Telephone Encounter - Pam Yost APRN.CNP - 10/25/2024 4:59 PM EDT Due for fasting labs. Orders placed. [facility]04-18-2025 Discharge summary [facility] Medical Records Department [address] [place] [address] Emergency Department Summary 10/11/24 MR#: [id number] Acct: [id number] Name: AISSATOU BETTS Rep #:[id number] : 1990 33 From: Ashlee Carson PCP: BRANDON Ruiz Status:REG E R Location: ED HPI History of Present Illness Chief Complaint: Nausea/Vomiting Informant: patient Narrative Narrative: Patient is a 33-year-old female presenting with back pain and concern for urinary tract infection. She states she has a history of CKD, congenital solitary kidney, drug abuse (on Suboxone) and frequent urinary tract infections. She states that she has had 1 month of intermittent nausea and vomiting. Last vomiting was 2 days ago). She has been having chills and hot flashes. Over thepast 2 to 3 days she developed some low back pain that radiates up to the right side of her back. She has chronic hematuria denies any change in this. Denies any dysuria. Denies excess abdominal pain or fevers (but does report chills andfeeling flushed). She is concerned that she could have urinary tract infectionand came to the ER. She notes she is currently between insurance which is why she came here insteadof following up with urology or PCP. She has a Nexplanon and is not concern for . She doesnote that with her symptoms of her nausea/vomiting she has taken test which have been negative. Tonight she had a hard time getting through her shift because of her pain and this triggered her tocome in. She did not take anything for pain prior to arrival. No other complaints or concerns reported at this time. [facility] Medical History Substance abuse Alcohol abuse Bipolar disorder Hyperthyroidism Kidney disease Pancreatitis Tobacco abuse COVID-19 Flu vaccine need Tachycardia IBS (irritable bowel syndrome) Wears glasses Depression Anxiety History of renal disease Hepatitis Migraine headache Smoker History of imperforate anus Hydronephrosis Migraine Menometrorrhagia Deafness in left ear Pancreatitis Chronic headaches Drug abuse Asthma Anemia Seasonal allergies demise > 22 weeks, delivered, current hospitalization Home Medications ?Medication ?Instructions ?Recorded ?Last Taken ?Type sertraline 25 mg tablet 25 mg PO DAILY depression #9 0 tabs 08/26/21 10/20/21 Rx buprenorphine 4 mg-naloxone 1 mg 1 film sublingual BID ADDICTION 10/21/21 10/21/21 History sublingual film (Suboxone) valacyclovir 500 mg tablet 500 mg PO DAILY INFECTION 0 10/21/21 10/20/21 History losartan 25 mg tablet 25 mg PO DAILY #0 tabs 10/24 Unknown Rx aripiprazole 10 mg tablet 10 mg PO DAILY MOOD #30 tabs 10/27/21 Unknown Rx levothyroxine 150 mcg tablet 150 mcg PO DAILY THYROID #30 tabs 10/27/21 Unknown Rx amitriptyline 10 mg tablet 10 mg PO QHS 08/03/23 Unkno wn History rimegepant 75 mg disintegrating 75 mg PO DAILY PRN oscar tana 08/03/23 Unknown History tablet (Nurtec ODT) headache ondansetron 4 mg disintegrating 4 mg PO Q8H PRN PRN Na usea #20 tabs 09/09/23 Unknown Rx tablet metoclopramide HCl 10 mg tablet 10 mg PO Q6H PRN nause a and 12/27/23 Unknown Rx (Reglan) vomiting #14 tabs ondansetron 4 mg disintegrating 4 mg PO Q8H PRN PRN Na usea #10 tabs 12/27/23 Unknown Rx tablet gabapentin 100 mg capsule 100 mg PO TID 10/10/24 Unkno wn History cephalexin 500 mg capsule 500 mg PO Q12 #14 CAPSULES 0 10/11/24 Unknown Rx ondansetron 4 mg disintegrating 4 mg PO Q8H PRN PRN Na usea #15 tabs 10/11/24 Unknown Rx tablet Allergy/AdvReac Type Severity Reaction Status Date / Time ceftriaxone (From Rocephin) Allergy Unknown Verified 10/10/24 23:33 ceftriaxone sodium (From Allergy Hives Verified 10/10/24 23:33 Rocephin) droperidol Allergy Unknown Verified 10/10/24 23:33 Family History Mother Depression Hypertension Mental disorder Thyroid disorder Aunt Diabetes Grandfather Alcoholism Cancer Surgical History History of removal of Port-a-Cath Hx of surgical procedure Hx of cystoscopy Social History household members: none Smoking Status: Current every day smoker tobacco type: cigarettes alcohol intake: never substance use type: crack/cocaine, heroin and other details: Currently snorts 1/2 gm daily of each heroin and cocaine. Also uses meth. what type of physical activity do you participate in: aerobics and weight training frequency: 3-4 times per week ROS ROS ED Constitutional Constitutional ED: Reports chills, fever(s) and subjective Gastrointestinal Gastrointestinal: Reports nausea and vomiting; Denies abdominal pain, constipation or diarrhea Genitourinary Genitourinary ED: Reports hematuria; Denies dysuria Musculoskeletal Musculoskeletal: Reports back pain; Denies myalgias Neurologic Neurologic: Denies paresthesias or weakness Hematologic/Lymphatic Hematologic/Lymphatic: Denies easy bleeding or easy bruising EXAM Physical Exam Const Vital Signs: 10/10/24 23:32 Temperature 98.6 F Temperature Source Oral Pulse Rate 100 Respiratory Rate 18 Blood Pressure 135/85 H Blood Pressure Mean 101 Pulse Ox 98 Oxygen Delivery Method Room Air Positive well nourished and well developed General Appearance ED: well developed and NAD HEENT Reports moist mucous membranes Neck supple Chest Wall inspection of chest normal and palpation of chest normal Resp normal respiratory effort and clear to auscultation bilaterally Cardio regular rate and regular rhythm GI normal to inspection, nondistended, normoactive bowel sounds and non-tender Auscultation: normoactive bowel sounds Back/Spine no CVA tenderness Back/Spine Narrative: Patient points to her lower lumbar back diffusely as the pain but is not reproducible with movementor direct palpation. General Back: Negative for CVA tenderness Thoracic Spine / Upper Back: Negative for thoracic spinal tenderness Lumbar Spine / Lower Back: Negative for lumbar spinal tenderness Neuro oriented x3 Sensorium / Orientation: alert Motor Exam: Negative for general weakness Psych mental status grossly normal Skin no rashes or lesions noted and no wounds MDM MDM MDM Narrative Medical decision making narrative: Patient is evaluated for low back pain and concern for urinary tract infection. Does have a historyof congenital solitary kidney and frequent urinary tract infections. Reports 1 month of intermittent nausea and vomiting as well as subjective fever and chills. At this time patient is overall well-appearing. He has not any CVA tenderness. He does not have anytenderness in the suprapubic region. Her vital signs are normal. Urinalysis shows contamination butdoes show 10-25 white blood cells with 1+ bacteria. Given her history she would like to be treated.Did send offher culture. She states Keflex usually works well for her and she tolerates it well. She has a documented allergy to Rocephin causing hives but her fill history shows that she had Keflex in July of this year. Is given first doseof Keflex in the emergency room. Patient would like to forego blood work at this time given that she is currently without insurance. Given that she has normal vital signs and overall is well-appearing with a benign physical exam I think this is reasonable. Patient is given close return precautions. Is given referral for urology. Discharged home in stable condition. Differential includes urinary tract infection, , pyelonephritis, muscleskeletal back pain Lab Data Attestation: I reviewed the patient's lab results. Labs: Laboratory Results - last 24 hr 10/11/24 00:21 Urine Color Yellow Urine Clarity Clear Urine pH 6.0 Ur Specific Ramsay 1.010 Urine Protein TNP Urine Glucose (UA) 50 H Urine Ketones Negative Urine Occult Blood 10 H Urine Nitrite Negative Urine Bilirubin Negative Urine Urobilinogen Normal Ur Leukocyte Esterase 25 H Urine RBC 0-5 SEEN Urine WBC 10-25 SEEN Ur Squamous Epith Cells 10-25 SEEN Urine Bacteria 1+ Urine Mucus 0 SEEN U Random Total Protein 164.0 H Urine Test Negative Discharge Plan Triage Chief Complaint: Nausea/Vomiting ED Provider: Ashlee Barreto Dx/Rx/DC Orders Clinical Impression: UTI (urinary tract infection), Low back pain Instructions: UTIs, ED Back Care Tips Prescriptions: New cephalexin 500 mg capsule 500 mg PO Q12 Qty: 14 0RF Continued ondansetron 4 mg tablet,disintegrating 4 mg PO Q8H PRN PRN (Reason: Nausea) Qty: 15 0RF No Action valacyclovir 500 mg tablet 500 mg PO DAILY buprenorphine-naloxone [Suboxone] 4-1 mg Film 1 film SUBLINGUAL BID Patient Comments: CALLED TO VERIFY SUBOXONE WITH [facility] [place]. PT JUST STARTED TREATMENT WITH [facility] AND NEW RXWAS FILLED AND CANCELED YESTERDAY FOR THE SUBOXONE 4-1 FILM BID. [facility] STATED PT DID NOTPICK-UP AND RX WAS CANCELED. losartan 25 mg Tablet 25 mg PO DAILY Qty: 0 0RF amitriptyline 10 mg tablet 10 mg PO QHS Patient Comments: Take 1 tablet (10 mg) by mouth Nightly. Nurtec ODT 75 mg tablet,disintegrating 75 mg PO DAILY PRN (Reason: migraine headache) gabapentin 100 mg capsule 100 mg PO TID ondansetron 4 mg tablet,disintegrating 4 mg PO Q8H PRN PRN (Reason: Nausea) Qty: 20 0RF ondansetron 4 mg tablet,disintegrating 4 mg PO Q8H PRN PRN (Reason: Nausea) Qty: 10 0RF metoclopramide HCl [Reglan] 10 mg tablet 10 mg PO Q6H PRN (Reason: nausea and vomiting) Qty: 14 0RF sertraline 25 mg tablet 25 mg PO DAILY Qty: 90 3RF aripiprazole 10 mg tablet 10 mg PO DAILY Qty: 30 2RF levothyroxine 150 mcg tablet 150 mcg PO DAILY Qty: 30 2RF Primary Care Provider: Pam Yost SAND FILLER Referrals: Pam Yost SAND FILLER, SAND FILLER-C [Primary Care Provider] - Activity Restrictions/Additional Instructions: If you develop fever or worsening symptoms please return to the emergency room for further workup. Print Language: Guamanian Disposition Disposition: Home, Self Care What to do if you have Problems For any increased pain, shortness of breath, bleeding, nausea or vomiting, chestpain, or any unexpected problems, contact your Primary Care Provider. Call [facility] ([phone]) or report tothe closest Emergency Room. Call 911 if necessary. 10/11/24 0141 Cosigner Signature (if applicable): CC: SAND FILLER-C Pam Yost ~ Signed [facility]03-26-2025 Telephone encounter Note* Telephone Encounter - Manju Mckee RN - 09/18/2024 8:38 AM EDT Patient notified. Manju Mckee RN [facility]03-26-2025 Miscellaneous Notes* Telephone Encounter - Manju Mckee RN - 09/18/2024 8:38 AM EDT Patient notified. Manju Mckee RN * Telephone Encounter - Pam Yost APRN.CNP - 09/17/2024 2:22 PM EDT I did not place that, it was there previously but it appears that it was in relation to her previous Hodgkin's Lymphoma. I will remove that from her problem list. * Telephone Encounter - Manju Mckee RN - 09/17/2024 1:26 PM EDT Patient calling in and states she has noted a diagnosis of malignant neoplasm, added to her record on 07/11/24. Patient asking if provider could explain this, as she is concerned about this diagnosis. Manju Mckee RN documented in this [facility]25 NoteHNO ID: [id number] Author: SHERI ALEJANDRO APRN.AIR TRANSPORTATION PROVIDER Service: ? Author Type: Nurse Practitioner Type: Progress Notes Filed: 09/18/2024 13:06 Note Text: This note was created using Nakedriter. Subjective Aissatou Betts is a 33 year old female patient of SAND FILLER Queden here today for acute visit for vomiting. This is not new and has hx of this. She reports this episode has been occurring x 3 wks. She reports she has been to the ER. She went to ER on 09/04/24. She reports they ran tests. She reports she had CT of abd. She reports she was told everything was fine. She was given omeprozale. Results of CT not available. Pt has hx of one kidney and abnormal kidney fxn. She does not see nephrology. She reports left sided mid back pain UA showed trace blood, protein and glucose. I do not have CT results She reports nausea Is constant. States she has vomited 1-2x/day over the past 3 days. She has zofran at home and has been taking this without relief She was concerned of noting dx of neoplasm on her chart. States she screened shot it but its gone off her chart now. She reports has constant acid feeling. She was given prilosec in ER. She reports had urine test and was negative. States Nexplanon was placed in 2022. Latest Ref Rng 09/03/2024 GLUCOSE UA (POCT) Negative mg/dL 100 ! BILIRUBIN UA (POCT) Negative Negative KETONE UA (POCT) Negative mg/dL Negative SPECIFIC GRAVITY UA (POCT) 1.005 - 1.030 1.020 HEMOGLOBIN/BLOOD UA (POCT) Negative Trace-intact ! PH UA (POCT) 4.5 - 8.0 6.5 PROTEIN UA (POCT) Negative mg/dL >=300 ! UROBILINOGEN UA (POCT) Normal E.U./dL 0.2 NITRITE UA (POCT) Negative Negative LEUKOCYTES UA (POCT) Negative Negative COLOR UA (POCT) Yellow CLARITY UA (POCT) Clear Culture >=100,000 CFU/ml Normal urogenital cintia Legend: ! Abnormal ALLERGIES Allergen Reactions Atorvastatin Unknown Cats Shortness of Breath Droperidol Anaphylaxis Laxative Pill GI Upset Meperidine Unknown Sennosides Other: See Comments Current Outpatient Medications Medication Sig Dispense Refill buprenorphine-naloxone (SUBOXONE) 2-0.5 mg film once daily. OTC PRODUCT Vitamin D drops levothyroxine (SYNTHROID) 50 mcg tablet Take 1 tablet by mouth daily at 6 am. 90 tablet 1 valACYclovir (VALTREX) 500 mg tablet Take 1 tablet by mouth once daily. 90 tablet 1 SUMAtriptan (IMITREX) 100 mg tablet Take 1 tablet (100 mg) by mouth as needed for migraine headache (see administration instructions) (do not use on more than 2 dyas per week.). May repeat dose after 2 hours if needed. Maximum daily dose is 200 mg per day. No more than 9 doses in a month. 9 tablet 5 ADVAIR DISKUS 500-50 mcg/dose dsdv Inhale 1 Puff as instructed two times a day. RINSE AND GARGLE MOUTH WITH WATER AFTER EACH USE. 1 Each 5 montelukast (SINGULAIR) 10 mg tablet Take 1 tablet by mouth daily at bedtime. 30 tablet 5 ondansetron orally disintegrating (ZOFRAN ODT) 4 mg disintegrating tablet Take 1 tablet by mouth every 8 hours as needed for nausea/vomiting. 30 tablet 11 hydrOXYzine HCl (ATARAX) 50 mg tablet 1 tablet Orally Four times a day (Patient not taking: Reported on 08/14/2024) gabapentin (NEURONTIN) 100 mg capsule Take 1 capsule by mouth three times a day for 12 doses. Do not start before September 16, 2023. 12 capsule 0 zinc sulfate 220 mg (50 mg zinc) capsule Take 1 capsule by mouth once daily for 21 days. 21 capsule 0 etonogestrel (NEXPLANON) subdermal implant 68 mg 1 Each by SUBDERMAL route as directed. 1 Each 0 VITAMIN D-3 50 mcg (2,000 unit) cap Take 1 capsule by mouth once daily. VITAMIN B-12 500 mcg tab tab(s) Take 1 tablet by mouth once daily. No current facility-administered medications for this visit. ACTIVE PROBLEM LIST Hodgkin Lymphoma (Hcc) Backache, Unspecified Cervicalgia Depression Congenital Solitary Kidney Decreased Hearing Bipolar 1 Disorder (Hcc) Substance abuse (HCC) Numbness Trichomoniasis History of Imperforate Anus Other Specified Hypothyroidism History of Delivery Uterus Didelphys Uti (Urinary Tract Infection) in , Antepartum Chronic Hepatitis C Without Hepatic Coma (Hcc) Iron Deficiency Anemia Social Problem History of Delivery Tobacco Use Disorder Buprenorphine Maintenance Treatment Affecting (Hcc) Supervision of High Risk , Antepartum Dizziness Acute Kidney Injury (Hcc) Vater/Vaterl Syndrome Ptsd (Post-Traumatic Stress Disorder) Zinc Deficiency Anxiety Disorder Vesicoureteral Reflux With Resulting Kidney Disease Vitamin D Deficiency Moderate Persistent Asthma Without Complication Migraine Idiopathic Peripheral Neuropathy Hydronephrosis Hx of Adenomatous Polyp of Colon History of Manic Depressive Disorder Drug Abuse, Daily Use (Hcc) Chronic Kidney Disease Deafness in Left Ear PAST MEDICAL HISTORY Diagnosis Date Alcohol abuse polysubstance abuse. Recovery Anemia Ast (more content not included)...[facility]03-26-2025 History of Present illness Narrative* Sheri Alejandro, DESK REPORTER.AIR TRANSPORTATION PROVIDER - 09/18/2024 7:51 AM EDT This note was created using SpiderCloud Wirelesster. Subjective Aissatou Betts is a 33 year old female patient of SAND FILLER Queden here today for acute visit for vomiting. This is not new and has hx of this. She reports this episode has been occurring x 3 wks. She reports she has been to the ER. She went to ER on 09/04/24. She reports they ran tests. She reports she had CT of abd. She reports she was told everything was fine. She was given omeprozale. Results of CTnot available. Pt has hx of one kidney and abnormal kidney fxn. She does not see nephrology. She reports left sided mid back pain UA showed trace blood, protein and glucose. I do not have CT results She reports nausea Is constant. States she has vomited 1-2x/day over the past 3 days. She has zofran at home and has been taking this without relief She was concerned of noting dx of neoplasm on her chart. States she screened shot it but its goneoff her chart now. She reports has constant acid feeling. She was given prilosec in ER. She reports had urine test and was negative. States Nexplanon was placed in 2022. Latest Ref Rng 09/03/2024 GLUCOSE UA (POCT) Negative mg/dL 100 ! BILIRUBIN UA (POCT) Negative Negative KETONE UA (POCT) Negative mg/dL Negative SPECIFIC GRAVITY UA (POCT) 1.005 - 1.030 1.020 HEMOGLOBIN/BLOOD UA (POCT) Negative Trace-intact ! PH UA (POCT) 4.5 - 8.0 6.5 PROTEIN UA (POCT) Negative mg/dL >=300 ! UROBILINOGEN UA (POCT) Normal E.U./dL 0.2 NITRITE UA (POCT) Negative Negative LEUKOCYTES UA (POCT) Negative Negative COLOR UA (POCT) Yellow CLARITY UA (POCT) Clear Culture >=100,000 CFU/ml Normal urogenital cintia Legend: ! Abnormal ALLERGIES Allergen Reactions Atorvastatin Unknown Cats Shortness of Breath Droperidol Anaphylaxis Laxative Pill GI Upset Meperidine Unknown Sennosides Other: See Comments Current Outpatient Medications Medication Sig Dispense Refill buprenorphine-naloxone (SUBOXONE) 2-0.5 mg film once daily. OTC PRODUCT Vitamin D drops levothyroxine (SYNTHROID) 50 mcg tablet Take 1 tablet by mouth daily at 6 am. 90 tablet 1 valACYclovir (VALTREX) 500 mg tablet Take 1 tablet by mouth once daily. 90 tablet 1 SUMAtriptan (IMITREX) 100 mg tablet Take 1 tablet (100 mg) by mouth as needed for migraine headache(see administration instructions) (do not use on more than 2 dyas per week.). May repeat dose after2 hours if needed. Maximum daily dose is 200 mg per day. No more than 9 doses in a month. 9 tablet 5 ADVAIR DISKUS 500-50 mcg/dose dsdv Inhale 1 Puff as instructed two times a day. RINSE AND GARGLE MOUTH WITH WATER AFTER EACH USE. 1 Each 5 montelukast (SINGULAIR) 10 mg tablet Take 1 tablet by mouth daily at bedtime. 30 tablet 5 ondansetron orally disintegrating (ZOFRAN ODT) 4 mg disintegrating tablet Take 1 tablet by mouth every 8 hours as needed for nausea/vomiting. 30 tablet 11 hydrOXYzine HCl (ATARAX) 50 mg tablet 1 tablet Orally Four times a day (Patient not taking: Reported on 08/14/2024) gabapentin (NEURONTIN) 100 mg capsule Take 1 capsule by mouth three times a day for 12 doses. Do not start before September 16, 2023. 12 capsule 0 zinc sulfate 220 mg (50 mg zinc) capsule Take 1 capsule by mouth once daily for 21 days. 21 capsule0 etonogestrel (NEXPLANON) subdermal implant 68 mg 1 Each by SUBDERMAL route as directed. 1 Each 0 VITAMIN D-3 50 mcg (2,000 unit) cap Take 1 capsule by mouth once daily. VITAMIN B-12 500 mcg tab tab(s) Take 1 tablet by mouth once daily. No current facility-administered medications for this visit. ACTIVE PROBLEM LIST Hodgkin Lymphoma (Hcc) Backache, Unspecified Cervicalgia Depression Congenital Solitary Kidney Decreased Hearing Bipolar 1 Disorder (Hcc) Substance abuse (HCC) Numbness Trichomoniasis History of Imperforate Anus Other Specified Hypothyroidism History of Delivery Uterus Didelphys Uti (Urinary Tract Infection) in , Antepartum Chronic Hepatitis C Without Hepatic Coma (Hcc) Iron Deficiency Anemia Social Problem History of Delivery Tobacco Use Disorder Buprenorphine Maintenance Treatment Affecting (Hcc) Supervision of High Risk , Antepartum Dizziness Acute Kidney Injury (Hcc) Vater/Vaterl Syndrome Ptsd (Post-Traumatic Stress Disorder) Zinc Deficiency Anxiety Disorder Vesicoureteral Reflux With Resulting Kidney Disease Vitamin D Deficiency Moderate Persistent Asthma Without Complication Migraine Idiopathic Peripheral Neuropathy Hydronephrosis Hx of Adenomatous Polyp of Colon History of Manic Depressive Disorder Drug Abuse, Daily Use (Hcc) Chronic Kidney Disease Deafness in Left Ear PAST MEDICAL HISTORY Diagnosis Date Alcohol abuse [...] HISTORY Procedure Laterality Date SECTION HX 02/24/2016 COLONOSCOPY SCREENING 2022 HERPES 1 & 2, IGB+ 2011 NEXPLANON INSERTION Left 04/20/2023 Placed in office PAST SURGICAL HISTORY OF kidney surgery PAST SURGICAL HISTORY OF rectal PAST SURGICAL HISTORY OF 06/09/2009 Left Supraclavicular Lymphnode Excision VSD CLOSURE Social History Tobacco Use Smoking status: Every Day Current packs/day: 0.50 Average packs/day: 0.5 packs/day for 0.7 years (0.4 ttl pk-yrs) Types: Cigarettes Smokeless tobacco: Never Vaping Use Vaping status: current everyday user Substances: Nicotine, Flavoring Substance Use Topics Alcohol use: Not Currently Alcohol/week: 1.0 standard drink of alcohol Types: 1 Cans of beer per week Drug use: Not Currently Types: Marijuana Comment: does use CBD gummies, used heroin, crack, marijuana, meth in past. Last used heroin and crack November 12, 2021 Family History Problem Relation Age of Onset Hypertension Mother other (depresssion) Mother No Known Problems Father Lung Cancer Maternal Grandfather other (ulcerative colitis) Paternal Grandmother Diabetes Maternal Aunt Review of Systems Constitutional: Negative for chills, fatigue and fever. Respiratory: Negative for cough, shortness of breath and wheezing. Cardiovascular: Negative for chest pain, palpitations and leg swelling. Gastrointestinal: Positive for nausea and vomiting. Negative for abdominal pain and diarrhea. Genitourinary: Positive for flank pain. Negative for difficulty urinating, dysuria and frequency. Psychiatric/Behavioral: Negative for dysphoric mood. The patient is nervous/anxious. Objective 09/18/24 0755 BP: 100/70 Pulse: 68 Resp: 18 Temp: 36.6 C (97.8 F) TempSrc: Oral SpO2: 98% Weight: 55.3 kg (122 lb) Height: 175.3 cm (5' 9) Physical Exam Vitals and nursing note reviewed. HENT: Head: Normocephalic and atraumatic. Cardiovascular: Rate and Rhythm: Normal rate and regular rhythm. Pulses: Normal pulses. Heart sounds: Normal heart sounds, S1 normal and S2 normal. No murmur heard. Pulmonary: Effort: Pulmonary effort is normal. No respiratory distress. Breath sounds: Normal breath sounds. No decreased breath sounds, wheezing, rhonchi or rales. Abdominal: General: Abdomen is flat. Bowel sounds are normal. Palpations: Abdomen is soft. Tenderness: There is no abdominal tenderness. There is left CVA tenderness. There is no right CVA tenderness. Musculoskeletal: Right lower leg: No edema. Left lower leg: No edema. Skin: General: Skin is warm and dry. Neurological: Mental Status: She is alert and oriented to person, place, and time. Psychiatric: Mood and Affect: Mood normal. Behavior: Behavior normal. Thought Content: Thought content normal. Judgment: Judgment normal. ASSESSMENT/PLAN: 1. Nausea and vomiting, unspecified vomiting type - ICD9: 787.01, ICD10: R11.2 (primary diagnosis) - acute, on chronic, instructed to continue zofran as ordered. Will refill her omeprazole due to reports of burning in her stomach to see if this will help. Instructed her to continue this. If persists may need to see GI again. (It appears she did follow up with GI last year) - see did have left CV tenderness. Will obtain results of CT from ER. Will order US of kidney and bladder - US KIDNEY/BLADDER 2. Left flank pain - ICD9: 789.09, ICD10: R10.9 Etiology unclear Differential Diagnosis includes Kidney stones/colic and Cystitis - Work up with US kidney/bladder - US KIDNEY/BLADDER 3. Elevated serum creatinine - ICD9: 790.99, ICD10: R79.89 - CKD, referral to nephrology - CONSULT TO NEPHROLOGY Sheri Alejandro APRN.CNP I spent a total of 40 minutes on the date of the service which included preparing to see the patient, [id number] patient care, completing clinical documentation, obtaining and/or reviewing separately obtained history, performing a medically appropriate examination, counseling and educating the pat ient/family/caregiver, and ordering medications, tests, or procedures. [facility] encounter Note * Telephone Encounter - Pam Yost APRN.CNP - 09/17/2024 2:22 PM EDT I did not place that, it was there previously but it appears that it was in relation to her previous Hodgkin's Lymphoma. I will remove that from her problem list. [facility]03[facility] Telephone encounter Note* Telephone Encounter - Manju Mckee RN - 09/17/2024 1:26 PM EDT Patient calling in and states she has noted a diagnosis of malignant neoplasm, added to her record on 07/11/24. Patient asking if provider could explain this, as she is concerned about this diagnosis. Manju Mckee RN [facility]03-12-2025 Discharge summary [facility] Medical Records Department [address] [place] [address] Emergency Department Summary 09/04/24 MR#: [id number] Acct: [id number] Name: AISSATOU BETTS Rep #:[id number] : 1990 33 From: Collin Arechiga MD PCP: Dr. Veronika Ferrer MD Status:R EG ER Location: ED HPI HPI - GI History of Present Illness Chief Complaint: Nausea/Vomiting Narrative Narrative: 33-year-old female past medical history of stage IV kidney disease, solitary congenital kidney, history of Hodgkin's lymphoma, presents with nausea and vomiting that she has had for about a week. Shestates it is intermittent. Sometimes she is able to tolerate food, other times she is not. She denies any fevers or chills, and may have diffuse abdominal cramping but denies any epigastric pain. Shedoes occasionally use marijuana and does take Suboxone. She is concerned that she be dehydrated as well. She is unsure as to the cause of why she vomits but she does state that she has been through multiple life stressors recently. [facility] Medical History Substance abuse Alcohol abuse Bipolar disorder Hyperthyroidism Kidney disease Pancreatitis Tobacco abuse COVID-19 Flu vaccine need Tachycardia IBS (irritable bowel syndrome) Wears glasses Depression Anxiety History of renal disease Hepatitis Migraine headache Smoker History of imperforate anus Hydronephrosis Migraine Menometrorrhagia Deafness in left ear Pancreatitis Chronic headaches Drug abuse Asthma Anemia Seasonal allergies demise > 22 weeks, delivered, current hospitalization Home Medications ?Medication ?Instructions ?Recorded ?Last Taken ?Type sertraline 25 mg tablet 25 mg PO DAILY depression #9 0 tabs 08/26/21 10/20/21 Rx buprenorphine 4 mg-naloxone 1 mg 1 film sublingual BID ADDICTION 10/21/21/02/14 History sublingual film (Suboxone) valacyclovir 500 mg tablet 500 mg PO DAILY INFECTION 0 10/21/21 10/20/21 History losartan 25 mg tablet 25 mg PO DAILY #0 tabs 10/24 Unknown Rx aripiprazole 10 mg tablet 10 mg PO DAILY MOOD #30 tabs 10/27/21 Unknown Rx levothyroxine 150 mcg tablet 150 mcg PO DAILY THYROID #30 tabs 10/27/21 Unknown Rx amitriptyline 10 mg tablet 10 mg PO QHS 08/03/23 Unkno wn History montelukast 10 mg tablet 10 mg PO QHS 08/03/23 Unknow n History rimegepant 75 mg disintegrating 75 mg PO DAILY PRN oscar tana 08/03/23 Unknown History tablet (Nurtec ODT) headache ciprofloxacin HCl 500 mg tablet 500 mg PO BID #14 TABL ETS 09/09/23 Unknown Rx ondansetron 4 mg disintegrating 4 mg PO Q8H PRN PRN Na usea #20 tabs 09/09/23 Unknown Rx tablet metoclopramide HCl 10 mg tablet 10 mg PO Q6H PRN nause a and 12/27/23 Unknown Rx (Reglan) vomiting #14 tabs ondansetron 4 mg disintegrating 4 mg PO Q8H PRN PRN Na usea #10 tabs 12/27/23 Unknown Rx tablet ciprofloxacin HCl 250 mg tablet 250 mg PO BID #20 tabs 01/16/24 Unknown Rx (Cipro) omeprazole 20 mg capsule,delayed 20 mg PO DAILY #14 CA PSULES 09/04/24 Unknown Rx release ondansetron 4 mg disintegrating 4 mg PO Q8H PRN PRN Na usea #15 tabs 09/04/24 Unknown Rx tablet Allergy/AdvReac Type Severity Reaction Status Date / Time ceftriaxone (From Rocephin) Allergy Unknown Verified 09/04/24 15:07 ceftriaxone sodium (From Allergy Hives Verified 09/04/24 15:07 Rocephin) droperidol Allergy Unknown Verified 09/04/24 15:07 Family History Mother Depression Hypertension Mental disorder Thyroid disorder Aunt Diabetes Grandfather Alcoholism Cancer Surgical History History of removal of Port-a-Cath Hx of surgical procedure Hx of cystoscopy Social History household members: none Smoking Status: Current every day smoker tobacco type: cigarettes alcohol intake: never substance use type: crack/cocaine, heroin and other details: Currently snorts 1/2 gm daily of each heroin and cocaine. Also uses meth. what type of physical activity do you participate in: aerobics and weight training frequency: 3-4 times per week ROS ROS ED ROS Narrative Constitutional: No fever, no chills. Cardiovascular: No chest pain. No palpitations. No pedal edema. Respiratory: No cough, no shortness of breath. Abdominal: Diffuse abdominal pain. Positive nausea and vomiting, intermittent x1 week, last today after eating. No joyce hematemesis. Genitourinary: No dysuria. No hematuria. Musculoskeletal: No myalgias. No arthralgias. Neurologic: No headaches. No dizziness. No lightheadedness. Psychiatric: No depression. No anxiety. EXAM Physical Exam Narrative Exam Narrative: Afebrile. Vital signs noted. Nontoxic-appearing. Cardiovascular examination reveals regular rate and rhythm. Lungs are clear to auscultation bilaterally. Abdomen is soft and nontender without guarding or rebound. Positive bowel sounds. Neurological examination is nonfocal and nonlateralizing. Ambulatory to door of room without difficulty. Able to transfer to cot. Const Vital Signs: 09/04/24 15:05 09/04/24 17:04 Temperature 97.3 F L 98.7 F Temperature Source Temporal Oral Pulse Rate 86 64 Respiratory Rate 15 18 Blood Pressure 135/70 H 128/78 H Blood Pressure Mean 91 94 Pulse Ox 100 98 Oxygen Delivery Method Room Air Room Air MDM MDM MDM Narrative Medical decision making narrative: Differential diagnosis includes but not limited to gastritis versus pancreatitisversus bowel obstruction. She does use marijuana and she may have hyperemesis, but she states she was tested for that and that is negative. She may have peptic ulcer disease as well. Comprehensive workup was pursued danilojethro womack because she has history of solitary kidney. She was administered ondansetron for nausea. CBC, CMP, these were obtained to help rule out pancreatitis. Additionally, serum test will beobtained as well although she has an implantable control. I reviewed her laboratory work and she has normal white count of 5.4 with hemoglobin stable at 10.9, hematocrit 32.9, platelet count normal at 167. BUN is elevated 24 with creatinine 2.24. When compared to prior labs, this is around her baseline with her chronic kidney disease. Serum is negative. LFTs are grossly unremarkable. Lipase normal at 42 so I doubt pancreatitis. Urinalysis shows 0-5 white cells and negative nitrites. I do notfeel antibiotics are indicated. It may also be a contaminated specimen. CT of the abdomen and pelvis without contrast obtained and reviewed. While she has left hydronephrosis/hydroureter there is no obstructing stone. She has a right pelvic kidney. Nosignificant change from previous. Repeat examination shows her resting on the cot comfortably. I feel she can be discharged to follow-up. With the thought that she may have gastritis she was written for omeprazole 20 mg and also given Zofran which she has been prescribedin the past. I feel she can be discharged to follow-up with her primary care provider. Return instructions reviewed. Disposition is discharged home in stable condition. History & Record Review Discussion w/independent historian: Patient Lab Data Attestation: I reviewed the patient's lab results. Labs: Laboratory Results - last 24 hr 09/04/24 09/04/24 15:58 16:00 WBC 5.4 RBC 3.77 L Hgb 10.9 L Hct 32.9 L MCV 87.3 MCH 28.9 MCHC 33.1 RDW Std Deviation 39.8 RDW Coeff of Maki 12.3 Plt Count 167 MPV 10.4 Immature Gran % (Auto) 0.400 Neut % (Auto) 71.4 H Lymph % (Auto) 22.9 Polk % (Auto) 3.9 Eos % (Auto) 0.7 Baso % (Auto) 0.7 Absolute Neuts (auto) 3.9 Absolute Lymphs (auto) 1.24 Nucleated RBC % 0 Sodium 135 Potassium 4.1 Chloride 102 Carbon Dioxide 22.3 Anion Gap 11 BUN 24 H Creatinine 2.24 H Estim Creat Clear Calc 31.21 L Est GFR (MDRD) Non-Af 29 L BUN/Creatinine Ratio 10.8 Glucose 126 H Calcium 9.2 Total Bilirubin 0.23 AST 17 ALT 12 Alkaline Phosphatase 85 Total Protein 6.7 Albumin 3.9 Globulin 2.8 Albumin/Globulin Ratio 1.4 Lipase 42 Serum , Qual NEGATIVE Urine Color Yellow Urine Clarity Clear Urine pH 6.5 Ur Specific Ramsay 1.010 Urine Protein 100 H Urine Glucose (UA) Normal Urine Ketones Negative Urine Occult Blood Negative Urine Nitrite Negative Urine Bilirubin Negative Urine Urobilinogen Normal Ur Leukocyte Esterase 25 H Urine RBC 0 SEEN Urine WBC 0-5 SEEN Ur Squamous Epith Cells 5-10 SEEN Urine Bacteria RARE Urine Mucus 0 SEEN Radiography Diagnostic Testing: Clinical Impression(s) from Imaging Studies Abdomen/Pelvis CT 09/04/24 15:34 IMPRESSION: 1. No definite acute process. 2. Unchanged mild/moderate left hydroureteronephrosis without an obstructing calculus. 3. Probable right pelvic kidney, unchanged from prior. One or more dose reduction techniques were used (e.g., Automated exposure control, adjustment of the mA and/or kV according to patient size, use of iterative reconstruction technique). Reading Location: [facility] Discharge Plan Triage Chief Complaint: Nausea/Vomiting ED Provider: Collin Arechiga Dx/Rx/DC Orders Clinical Impression: Nausea and vomiting, Abdominal pain Instructions: ED Abdominal Pain Unkn Cause Fem, ED Vomiting (Adult) Prescriptions: New ondansetron 4 mg tablet,disintegrating 4 mg PO Q8H PRN PRN (Reason: Nausea) Qty: 15 0RF omeprazole 20 mg capsule,delayed release(DR/EC) 20 mg PO DAILY Qty: 14 0RF No Action valacyclovir 500 mg tablet 500 mg PO DAILY buprenorphine-naloxone [Suboxone] 4-1 mg Film 1 film SUBLINGUAL BID Patient Comments: CALLED TO VERIFY SUBOXONE WITH [facility] [place]. PT JUST STARTED TREATMENT WITH [facility] AND NEW RXWAS FILLED AND CANCELED YESTERDAY FOR THE SUBOXONE 4-1 FILM BID. [facility] STATED PT DID NOTPICK-UP AND RX WAS CANCELED. losartan 25 mg Tablet 25 mg PO DAILY Qty: 0 0RF amitriptyline 10 mg tablet 10 mg PO QHS Patient Comments: Take 1 tablet (10 mg) by mouth Nightly. montelukast 10 mg tablet 10 mg PO QHS Patient Comments: take 1 tablet by mouth at bedtime Nurtec ODT 75 mg tablet,disintegrating 75 mg PO DAILY PRN (Reason: migraine headache) ciprofloxacin HCl 500 mg tablet 500 mg PO BID Qty: 14 0RF ondansetron 4 mg tablet,disintegrating 4 mg PO Q8H PRN PRN (Reason: Nausea) Qty: 20 0RF ondansetron 4 mg tablet,disintegrating 4 mg PO Q8H PRN PRN (Reason: Nausea) Qty: 10 0RF metoclopramide HCl [Reglan] 10 mg tablet 10 mg PO Q6H PRN (Reason: nausea and vomiting) Qty: 14 0RF ciprofloxacin HCl [Cipro] 250 mg tablet 250 mg PO BID Qty: 20 0RF sertraline 25 mg tablet 25 mg PO DAILY Qty: 90 3RF aripiprazole 10 mg tablet 10 mg PO DAILY Qty: 30 2RF levothyroxine 150 mcg tablet 150 mcg PO DAILY Qty: 30 2RF Stand Alone Forms: ED Work / School Excuse Primary Care Provider: Veronika Ferrer Referrals: Veronika Ferrer MD [Primary Care Provider] - 3-5 Days if not improving Activity Restrictions/Additional Instructions: Return with fever, increased pain, new or worsening symptoms. Follow-up with your primary care provider. You may need referral to gastroenterology. Print Language: Guamanian Disposition Disposition: Home, Self Care What to do if you have Problems For any increased pain, shortness of breath, bleeding, nausea or vomiting, chestpain, or any unexpected problems, contact your Primary Care Provider. Call [facility] ([phone]) or report tothe closest Emergency Room. Call 911 if necessary. 09/04/241816 Cosigner Signature (if applicable): CC: Dr. Veronika Ferrer MD ~ Signed [facility]03-12-2025 Radiology Diagnostic study note [facility] Imaging Services [address] [place], [place] [id number] Abdomen/Pelvis without Cont MR#: [id number] Acct: [id number] Name: AISSATOU BETTS Rep #: [id number] : 1990 F 33 From: Bernabe Bolton DO PCP: Dr. Veronika Ferrer MD Status: R EG ER Study:Abdomen/Pelvis without Cont Date of Exa m: 09/04/24 Exam# [id number] Ordering Dr: Collin Arechiga MD PROCEDURE: CT abdomen pelvis without IV contrast REASON FOR EXAM: PAIN TECHNIQUE: Multiple contiguous axial images through the abdomen and pelvis were obtained without the administration of intravenous contrast. Two-dimensional coronal and sagittal reformatted images were reconstructed. Low- dose imaging technique was utilized. COMPARISON: 01/16/2024 FINDINGS: Lung bases are clear. Unenhanced liver, spleen, pancreas and adrenal glands arewithin normal limits. Gallbladder is contracted. No significant biliary ductal dilation. Right kidney is not present within the right renal fossa. Unchanged mild/moderate left hydroureteronephrosis without an obstructing calculus. Abnormal lobular morphology of the left kidney, similar to prior exams. Unchanged soft tissue density in the right adnexa whichmay represent a pelvic kidney. Urinary bladder is within normal limits. No bowel obstruction, focal bowel wall thickening or significant perienteric inflammation. No pelvic free fluid. No free air. No abdominal aortic aneurysm or bulky adenopathy. Superficial soft tissuesare intact. No acute osseous abnormality. CT/Abdomen/Pelvis without Cont IMPRESSION: 1. No definite acute process. 2. Unchanged mild/moderate left hydroureteronephrosis without an obstructing calculus. 3. Probable right pelvic kidney, unchanged from prior. One or more dose reduction techniques were used (e.g., Automated exposure control, adjustment of the mA and/or kV according to patient size, use of iterative reconstruction technique). Reading Location: [facility] CC: Dr. Collin Arechiga MD; Dr. Veronika Ferrer MD ~ [employer] Position Clerk: Signed [facility]03-12-2025 Discharge summary Author Collin Arechiga [facility] Note Date/Time September 04, 2024 6:1 7pm [facility] Medical Records Department [address] [place] [address] Emergency Department Summary 09/04/24 MR#: [id number] Acct: [id number] Name: AISSATOU BETTS Rep #:[id number] : 1990 33 From: Collin Arechiga MD PCP: Dr. Veronika Ferrer MD Status:R EG ER Location: ED HPI HPI - GI History of Present Illness Chief Complaint: Nausea/Vomiting Narrative Narrative: 33-year-old female past medical history of stage IV kidney disease, solitary congenital kidney, history of Hodgkin's lymphoma, presents with nausea and vomiting that she has had for about a week. She states it is intermittent. Sometimes she is able to tolerate food, other times she is not. She denies any fevers or chills, and may have diffuse abdominal cramping but denies any epigastric pain. She does occasionally use marijuana and does take Suboxone. She is concerned that she be dehydrated as well. She is unsure as to the cause of why she vomits but she does state that she has been through multiple life stressors recently. [facility] Medical History Substance abuse Alcohol abuse Bipolar disorder Hyperthyroidism Kidney disease Pancreatitis Tobacco abuse COVID-19 Flu vaccine need Tachycardia IBS (irritable bowel syndrome) Wears glasses Depression Anxiety History of renal disease Hepatitis Migraine headache Smoker History of imperforate anus Hydronephrosis Migraine Menometrorrhagia Deafness in left ear Pancreatitis Chronic headaches Drug abuse Asthma Anemia Seasonal allergies demise > 22 weeks, delivered, current hospitalization Home Medications ?Medication ?Instructions ?Recorded ?Last Taken ?Type sertraline 25 mg tablet 25 mg PO DAILY depression #9 0 tabs 08/26/21 10/20/21 Rx buprenorphine 4 mg-naloxone 1 mg 1 film sublingual BID ADDICTION 10/21/21 04/02/14 History sublingual film (Suboxone) valacyclovir 500 mg tablet 500 mg PO DAILY INFECTION 0 10/21/21 10/20/21 History losartan 25 mg tablet 25 mg PO DAILY #0 tabs 10/24 Unknown Rx aripiprazole 10 mg tablet 10 mg PO DAILY MOOD #30 tabs 10/27/21 Unknown Rx levothyroxine 150 mcg tablet 150 mcg PO DAILY THYROID #30 tabs 10/27/21 Unknown Rx amitriptyline 10 mg tablet 10 mg PO QHS 08/03/23 Unkno wn History montelukast 10 mg tablet 10 mg PO QHS 08/03/23 Unknow n History rimegepant 75 mg disintegrating 75 mg PO DAILY PRN oscar tana 08/03/23 Unknown History tablet (Nurtec ODT) headache ciprofloxacin HCl 500 mg tablet 500 mg PO BID #14 TABL ETS 09/09/23 Unknown Rx ondansetron 4 mg disintegrating 4 mg PO Q8H PRN PRN Na usea #20 tabs 09/09/23 Unknown Rx tablet metoclopramide HCl 10 mg tablet 10 mg PO Q6H PRN nause a and 12/27/23 Unknown Rx (Reglan) vomiting #14 tabs ondansetron 4 mg disintegrating 4 mg PO Q8H PRN PRN Na usea #10 tabs 12/27/23 Unknown Rx tablet ciprofloxacin HCl 250 mg tablet 250 mg PO BID #20 tabs 01/16/24 Unknown Rx (Cipro) omeprazole 20 mg capsule,delayed 20 mg PO DAILY #14 CA PSULES 09/04/24 Unknown Rx release ondansetron 4 mg disintegrating 4 mg PO Q8H PRN PRN Na usea #15 tabs 09/04/24 Unknown Rx tablet Allergy/AdvReac Type Severity Reaction Status Date / Time ceftriaxone (From Rocephin) Allergy Unknown Verified 09/04/24 15:07 ceftriaxone sodium (From Allergy Hives Verified 09/04/24 15:07 Rocephin) droperidol Allergy Unknown Verified 09/04/24 15:07 Family History Mother Depression Hypertension Mental disorder Thyroid disorder Aunt Diabetes Grandfather Alcoholism Cancer Surgical History History of removal of Port-a-Cath Hx of surgical procedure Hx of cystoscopy Social History household members: none Smoking Status: Current every day smoker tobacco type: cigarettes alcohol intake: never substance use type: crack/cocaine, heroin and other details: Currently snorts 1/2 gm daily of each heroin and cocaine. Also uses meth. what type of physical activity do you participate in: aerobics and weight training frequency: 3-4 times per week ROS ROS ED ROS Narrative Constitutional: No fever, no chills. Cardiovascular: No chest pain. No palpitations. No pedal edema. Respiratory: No cough, no shortness of breath. Abdominal: Diffuse abdominal pain. Positive nausea and vomiting, intermittent x1 week, last today after eating. No joyce hematemesis. Genitourinary: No dysuria. No hematuria. Musculoskeletal: No myalgias. No arthralgias. Neurologic: No headaches. No dizziness. No lightheadedness. Psychiatric: No depression. No anxiety. EXAM Physical Exam Narrative Exam Narrative: Afebrile. Vital signs noted. Nontoxic-appearing. Cardiovascular examination reveals regular rate and rhythm. Lungs are clear to auscultation bilaterally. Abdomen is soft and nontender without guarding or rebound. Positive bowel sounds. Neurological examination is nonfocal and nonlateralizing. Ambulatory to door of room without difficulty. Able to transfer to cot. Const Vital Signs: 09/04/24 15:05 09/04/24 17:04 Temperature 97.3 F L 98.7 F Temperature Source Temporal Oral Pulse Rate 86 64 Respiratory Rate 15 18 Blood Pressure 135/70 H 128/78 H Blood Pressure Mean 91 94 Pulse Ox 100 98 Oxygen Delivery Method Room Air Room Air MDM MDM MDM Narrative Medical decision making narrative: Differential diagnosis includes but not limited to gastritis versus pancreatitisversus bowel obstruction. She does use marijuana and she may have hyperemesis, but she states she was tested for that and that is negative. She may have peptic ulcer disease as well. Comprehensive workup was pursued especially because she has history of solitary kidney. She was administered ondansetron for nausea. CBC, CMP, these were obtained to help rule out pancreatitis. Additionally, serum test will be obtained as well although she has an implantable control. I reviewed her laboratory work and she has normal white count of 5.4 with hemoglobin stable at 10.9, hematocrit 32.9, platelet count normal at 167. BUN is elevated 24 with creatinine 2.24. When compared to prior labs, this is around her baseline with her chronic kidney disease. Serum is negative. LFTs are grossly unremarkable. Lipase normal at 42 so I doubt pancreatitis. Urinalysis shows 0-5 white cells and negative nitrites. I do notfeel antibiotics are indicated. It may also be a contaminated specimen. CT of the abdomen and pelvis without contrast obtained and reviewed. While she has left hydronephrosis/hydroureter there is no obstructing stone. She has a right pelvic kidney. No significant change from previous. Repeat examination shows her resting on the cot comfortably. I feel she can be discharged to follow-up. With the thought that she may have gastritis she was written for omeprazole 20 mg and also given Zofran which she has been prescribedin the past. I feel she can be discharged to follow-up with her primary care provider. Return instructions reviewed. Disposition is discharged home in stable condition. History & Record Review Discussion w/independent historian: Patient Lab Data Attestation: I reviewed the patient's lab results. Labs: Laboratory Results - last 24 hr 09/04/24 09/04/24 15:58 16:00 WBC 5.4 RBC 3.77 L Hgb 10.9 L Hct 32.9 L MCV 87.3 MCH 28.9 MCHC 33.1 RDW Std Deviation 39.8 RDW Coeff of Maki 12.3 Plt Count 167 MPV 10.4 Immature Gran % (Auto) 0.400 Neut % (Auto) 71.4 H Lymph % (Auto) 22.9 Polk % (Auto) 3.9 Eos % (Auto) 0.7 Baso % (Auto) 0.7 Absolute Neuts (auto) 3.9 Absolute Lymphs (auto) 1.24 Nucleated RBC % 0 Sodium 135 Potassium 4.1 Chloride 102 Carbon Dioxide 22.3 Anion Gap 11 BUN 24 H Creatinine 2.24 H Estim Creat Clear Calc 31.21 L Est GFR (MDRD) Non-Af 29 L BUN/Creatinine Ratio 10.8 Glucose 126 H Calcium 9.2 Total Bilirubin 0.23 AST 17 ALT 12 Alkaline Phosphatase 85 Total Protein 6.7 Albumin 3.9 Globulin 2.8 Albumin/Globulin Ratio 1.4 Lipase 42 Serum , Qual NEGATIVE Urine Color Yellow Urine Clarity Clear Urine pH 6.5 Ur Specific Ramsay 1.010 Urine Protein 100 H Urine Glucose (UA) Normal Urine Ketones Negative Urine Occult Blood Negative Urine Nitrite Negative Urine Bilirubin Negative Urine Urobilinogen Normal Ur Leukocyte Esterase 25 H Urine RBC 0 SEEN Urine WBC 0-5 SEEN Ur Squamous Epith Cells 5-10 SEEN Urine Bacteria RARE Urine Mucus 0 SEEN Radiography Diagnostic Testing: Clinical Impression(s) from Imaging Studies Abdomen/Pelvis CT 09/04/24 15:34 IMPRESSION: 1. No definite acute process. 2. Unchanged mild/moderate left hydroureteronephrosis without an obstructing calculus. 3. Probable right pelvic kidney, unchanged from prior. One or more dose reduction techniques were used (e.g., Automated exposure control, adjustment of the mA and/or kV according to patient size, use of iterative reconstruction technique). Reading Location: [facility] Discharge Plan Triage Chief Complaint: Nausea/Vomiting ED Provider: Collin Arechiga Dx/Rx/DC Orders Clinical Impression: Nausea and vomiting, Abdominal pain Instructions: ED Abdominal Pain Unkn Cause Fem, ED Vomiting (Adult) Prescriptions: New ondansetron 4 mg tablet,disintegrating 4 mg PO Q8H PRN PRN (Reason: Nausea) Qty: 15 0RF omeprazole 20 mg capsule,delayed release(DR/EC) 20 mg PO DAILY Qty: 14 0RF No Action valacyclovir 500 mg tablet 500 mg PO DAILY buprenorphine-naloxone [Suboxone] 4-1 mg Film 1 film SUBLINGUAL BID Patient Comments: CALLED TO VERIFY SUBOXONE WITH [facility] IN [place]. PT JUST STARTED TREATMENT WITH [facility] AND NEW RX WAS FILLED AND CANCELED YESTERDAY FOR THE SUBOXONE 4-1 FILM BID. [facility] STATED PT DID NOT PICK-UP AND RX WAS CANCELED. losartan 25 mg Tablet 25 mg PO DAILY Qty: 0 0RF amitriptyline 10 mg tablet 10 mg PO QHS Patient Comments: Take 1 tablet (10 mg) by mouth Nightly. montelukast 10 mg tablet 10 mg PO QHS Patient Comments: take 1 tablet by mouth at bedtime Nurtec ODT 75 mg tablet,disintegrating 75 mg PO DAILY PRN (Reason: migraine headache) ciprofloxacin HCl 500 mg tablet 500 mg PO BID Qty: 14 0RF ondansetron 4 mg tablet,disintegrating 4 mg PO Q8H PRN PRN (Reason: Nausea) Qty: 20 0RF ondansetron 4 mg tablet,disintegrating 4 mg PO Q8H PRN PRN (Reason: Nausea) Qty: 10 0RF metoclopramide HCl [Reglan] 10 mg tablet 10 mg PO Q6H PRN (Reason: nausea and vomiting) Qty: 14 0RF ciprofloxacin HCl [Cipro] 250 mg tablet 250 mg PO BID Qty: 20 0RF sertraline 25 mg tablet 25 mg PO DAILY Qty: 90 3RF aripiprazole 10 mg tablet 10 mg PO DAILY Qty: 30 2RF levothyroxine 150 mcg tablet 150 mcg PO DAILY Qty: 30 2RF Stand Alone Forms: ED Work / School Excuse Primary Care Provider: Veronika Ferrer Referrals: Veronika Ferrer MD [Primary Care Provider] - 3-5 Days if not improving Activity Restrictions/Additional Instructions: Return with fever, increased pain, new or worsening symptoms. Follow-up with your primary care provider. You may need referral to gastroenterology. Print Language: Guamanian Disposition Disposition: Home, Self Care What to do if you have Problems For any increased pain, shortness of breath, bleeding, nausea or vomiting, chestpain, or any unexpected problems, contact your Primary Care Provider. Call [facility] ([phone]) or report to the closest Emergency Room. Call 911 if necessary. 09/04/241816 <Electronically signed by Collin Arechiga MD> Cosigner Signature (if applicable): CC: Dr. Veronika Ferrer MD ~ Signed [facility] Work Phone: [phone] 549-474803-12-2025 Telephone encounter Note* Telephone Encounter - Nellie Mas APRN.CNP - 09/04/2024 11:59 AM EDT Urine culture reveals normal cintia No infection Can discontinue ATB Follow up with PCP for continued symptoms Patient notified [facility] Work Phone: [phone] 619-215603-12-2025 Miscellaneous Notes* Telephone Encounter - Nellie Mas APRN.CNP - 09/04/2024 11:59 AM EDT Urine culture reveals normal cintia No infection Can discontinue ATB Follow up with PCP for continued symptoms Patient notified documented [facility]25 NoteHNO ID: [id number] Author: KYLEIGH MATIAS APRN.CNP Service: ? Author Type: Nurse Practitioner Type: Progress Notes Filed: 09/03/2024 10:50 Note Text: [facility] Subjective Aissatou Betts is a 33 year old year old who presents to express care today with C/o Frequency, urgency, burning with urination. Presence of blood in urine none. Color is yellow in appearance without odor. Denies suprapubic pain, flank pain or back pain. History of UTI's over the past year too many to count, history of one Kidney (Right) and chronic history of repeated bladder infections. States she just left rehab and has not seen her PCP or Urology/Renal recently. Denies headaches, fever, sore throat, cough, shortness of breath, chest pains, Nausea, vomiting, changes in bowel or skin rashes. No current medication treatments. Aside from symptoms as described above, patient has no other complaints at this time. HPI: see above Review of Systems Constitutional: Negative for chills, fatigue and fever. Respiratory: Negative for cough, shortness of breath and wheezing. Cardiovascular: Negative for chest pain, palpitations and leg swelling. Gastrointestinal: Negative for diarrhea, nausea and vomiting. Genitourinary: Positive for dysuria, frequency and urgency. Negative for hematuria and vaginal discharge. History of one kidney Musculoskeletal: Negative for myalgias. Skin: Negative for wound. ALLERGIES Allergen Reactions Atorvastatin Unknown Cats Shortness of Breath Droperidol Anaphylaxis Laxative Pill GI Upset Meperidine Unknown Sennosides Other: See Comments Current Outpatient Medications on File Prior to Visit Medication Sig buprenorphine-naloxone (SUBOXONE) 2-0.5 mg film once daily. OTC PRODUCT Vitamin D drops levothyroxine (SYNTHROID) 50 mcg tablet Take 1 tablet by mouth daily at 6 am. valACYclovir (VALTREX) 500 mg tablet Take 1 tablet by mouth once daily. SUMAtriptan (IMITREX) 100 mg tablet Take 1 tablet (100 mg) by mouth as needed for migraine headache (see administration instructions) (do not use on more than 2 dyas per week.). May repeat dose after 2 hours if needed. Maximum daily dose is 200 mg per day. No more than 9 doses in a month. ADVAIR DISKUS 500-50 mcg/dose dsdv Inhale 1 Puff as instructed two times a day. RINSE AND GARGLE MOUTH WITH WATER AFTER EACH USE. montelukast (SINGULAIR) 10 mg tablet Take 1 tablet by mouth daily at bedtime. ondansetron orally disintegrating (ZOFRAN ODT) 4 mg disintegrating tablet Take 1 tablet by mouth every 8 hours as needed for nausea/vomiting. gabapentin (NEURONTIN) 100 mg capsule Take 1 capsule by mouth three times a day for 12 doses. Do not start before September 16, 2023. zinc sulfate 220 mg (50 mg zinc) capsule Take 1 capsule by mouth once daily for 21 days. etonogestrel (NEXPLANON) subdermal implant 68 mg 1 Each by SUBDERMAL route as directed. VITAMIN D-3 50 mcg (2,000 unit) cap Take 1 capsule by mouth once daily. VITAMIN B-12 500 mcg tab tab(s) Take 1 tablet by mouth once daily. hydrOXYzine HCl (ATARAX) 50 mg tablet 1 tablet Orally Four times a day (Patient not taking: Reported on 08/14/2024) No current facility-administered medications on file prior to visit. ACTIVE PROBLEM LIST Hodgkin Lymphoma (Hcc) Backache, Unspecified Cervicalgia Depression Congenital Solitary Kidney Decreased Hearing Bipolar 1 Disorder (Hcc) Substance abuse (HCC) Numbness Trichomoniasis History of Imperforate Anus Other Specified Hypothyroidism History of Delivery Uterus Didelphys Uti (Urinary Tract Infection) in , Antepartum Chronic Hepatitis C Without Hepatic Coma (Hcc) Iron Deficiency Anemia Social Problem History of Delivery Tobacco Use Disorder Buprenorphine Maintenance Treatment Affecting (Hcc) Supervision of High Risk , Antepartum Dizziness Acute Kidney Injury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 10 mg tablet Take 1 tablet by mouth daily at bedtime. ondansetron (ZOFRAN) 8 mg tablet Take 1 tablet by mouth once daily. metoclopramide HCl (REGLAN) 5 mg tablet Take 1 tablet by mouth four times daily. levothyroxine (SYNTHROID) 50 mcg tablet Take 1 tablet by mouth daily at 6 am. benzonatate (TESSALON PERLES) 100 mg capsule Take 2 capsules by mouth three times a day as needed. amitriptyline (ELAVIL) 10 mg tablet Take 1 tablet by mouth daily at bedtime. ondansetron orally disintegrating (ZOFRAN ODT) 4 mg disintegrating tablet Take 1 tablet by mouth every 8 hours as needed for nausea/vomiting. hydrOXYzine HCl (ATARAX) 50 mg tablet 1 tablet Orally Four times a day pantoprazole DR (PROTONIX) 20 mg tablet Take 1 tablet by mouth daily before breakfast. Take on empty stomach, 1/2 hr before meal. Cholecalciferol, Vitamin D3, (VITAMIN D) 25 mcg (1,000 unit) cap Take 2 capsules by mouth once daily. gabapentin (NEURONTIN) 100 mg capsule Take 2 capsules by mouth one time only for 1 dose. gabapentin (NEURONTIN) 100 mg capsule Take 1 capsule by mouth three times a day for 12 doses. Do not start before September 16, 2023. melatonin 3 mg tablet Take 1 tablet by mouth daily at bedtime. traZODone (DESYREL) 50 mg tablet Take 0.5 tablets by mouth at bedtime as needed. zinc sulfate 220 mg (50 mg zinc) capsule Take 1 capsule by mouth once daily for 21 days. miconazole (MONISTAT 7) 2 % vaginal cream Use 1 Applicator vaginally daily at bedtime. triamcinolone acetonide (KENALOG) 0.1 % ointment Apply to affected area two times a day. For 10-14 days vitamin A and D ointment Apply to affected area as needed. etonogestrel (NEXPLANON) subdermal implant 68 mg 1 Each by SUBDERMAL route as directed. VITAMIN D-3 50 mcg (2,000 unit) cap Take 1 capsule by mouth once daily. (Patient not taking: Reported on 04/23/2024) VITAMIN B-12 500 mcg tab tab(s) Take 1 tablet by mouth once daily. No current facility-administered medications for this visit. ACTIVE PROBLEM LIST Hodgkin Lymphoma (Hcc) Backache, Unspecified Cervicalgia Depression Congenital Solitary Kidney Decreased Hearing Bipolar 1 Disorder (Hcc) Substance abuse (HCC) Numbness Trichomoniasis History of Imperforate Anus Other Specified Hypothyroidism History of Delivery Uterus Didelphys Uti (Urinary Tract Infection) in , Antepartum Chronic Hepatitis C Without Hepatic Coma (Hcc) Iron Deficiency Anemia Social Problem History of Delivery Tobacco Use Disorder Buprenorphine Maintenance Treatment Affecting (Hcc) Supervision of High Risk , Antepartum Dizziness Acute Kidney Injury (Hcc) Vater/Vaterl Syndrome Ptsd (Post-Traumatic Stress Disorder) Zinc Deficiency PAST MEDICAL HISTORY Diagnosis Date Alcohol abuse [...] HISTORY Procedure Laterality Date SECTION HX 02/24/2016 COLONOSCOPY SCREENING 2022 HERPES 1 & 2, IGB+ 2011 NEXPLANON INSERTION Left 04/20/2023 Placed in office PAST SURGICAL HISTORY OF kidney surgery PAST SURGICAL HISTORY OF rectal PAST SURGICAL HISTORY OF 06/09/2009 Left Supraclavicular Lymphnode Excision VSD CLOSURE Social History Tobacco Use Smoking status: Every Day Current packs/day: 0.50 Average packs/day: 0.5 packs/day for 0.7 years (0.4 ttl pk-yrs) Types: Cigarettes Smokeless tobacco: Never Vaping Use Vaping status: Former Substances: Nicotine, Flavoring Substance Use Topics Alcohol use: Not Currently Alcohol/week: 1.0 standard drink of alcohol Types: 1 Cans of beer per week Drug use: Yes Types: Marijuana Comment: used heroin, crack, marijuana, meth in past. Last used heroin and crack November 12, 2021 FAMILY HISTORY Problem Relation Age of Onset Hypertension Mother other (depresssion) Mother No Known Problems Father Lung Cancer Maternal Grandfather other (ulcerative colitis) Paternal Grandmother Diabetes Maternal Aunt Review of Systems Lab and Test Review: Results for orders placed or performed in visit on 01/04/24 TSH BLD Result Value Ref Range TSH 1.480 0.270 - 4.200 mIU/L LIPASE Result Value Ref Range Lipase 31 16 - 61 U/L CELIAC SCREEN Result Value Ref Range Transglutaminase IgA Abs <2 <4 U/mL Transglutaminase IgA Abs Interpretation Negative Negative Interpretation (Celiac Screen) No serological evidence of celiac disease, however, if celiac disease is clinically suspected and patient is not on gluten-free diet, histological diagnosis may be considered. HLA testing may help with risk assessment. Gliadin Ab, IgA 6 <20 Units Gliad Deamidated IgA Qual Negative Negative, Test not Indicated IMMUNOGLOBULIN A Result Value Ref Range IgA 177 70 - 400 mg/dL Outside Data/Labs: Subjective Patient-Entered Data: 05/10/24 - GENERAL NEUROLOGY SCORES 11/22/2023 01/16/2024 05/10/2024 PROMIS 10 Health, in general Poor Poor Poor Quality of life, in general Fair Fair Fair Physical health, in general Poor Poor Poor Mental health, in general Poor Poor Excellent Social activities satisfaction Fair Fair Good Performing ADL's A little A little Mostly Social role satisfaction Poor Poor Excellent Pain, on average 9 9 9 Fatigue, on average Severe Severe Moderate Emotional problems Often Often Always PHYSICAL Score 26.7 (Poor) 26.7 (Poor) 34.9 (Poor) MENTAL Score 31.3 (Fair) 31.3 (Fair) 41.1 (Good) 11/22/2023 01/16/2024 01/16/2024 Depression Screening PHQ-2 Score 6 6 6 PHQ-9 Score 22 22 22 ASHKAN-2 Total Score 6 ASHKAN-7 Total Score 21 04/03/2023 SLEEP APNEA SCORE Probability of moderate-severe sleep apnea (%) SAPS V2 8 (Sleep study not recommended) No data to display No data to display I spent a total of 30 minutes on the date of the service which included preparing to see the patient, [id number] patient care, completing clinical documentation, obtaining and/or reviewing separately obtained history, performing a medically appropriate examination, counseling and educating the pat ient/family/caregiver, and ordering medications, tests, or procedures. Bethany Gil PA-C [facility] Telephone encounter Note * Telephone Encounter - Mayuri Kong RN - 05/10/2024 4:21 PM EST 05/13/24 appointment note made. Patient coming in for STD testing. Mayuri Kong RN [facility]11-[facility]24 Miscellaneous Notes* Telephone Encounter - Mayuri Kong RN - 05/10/2024 4:21 PM EST 05/13/24 appointment note made. Patient coming in for STD testing. Mayuri Kong RN * Telephone Encounter - Maria G Bolanos RN - 05/10/2024 1:53 PM EST Left message for patient to call office. Maria G Bolanos RN * Telephone Encounter - Mabel Oshea APRN.CNM - 05/10/2024 12:51 PM EST Order signed. Please assist with scheduling Mabel Oshea APRN.CNM * Telephone Encounter - Maria G Bolanos RN - 05/10/2024 12:38 PM EST See note below. It was inserted 04/03/23. Please file order. Maria G Bolanos RN * Telephone Encounter - Elizabeth Lan - 05/10/2024 11:58 AM EST Pt called in demanding nexplanon removal. Asked for nurse to call back. Please advise. Thank you [facility] Telephone encounter Note * Telephone Encounter - Maria G Bolanos RN - 05/10/2024 1:53 PM EST Left message for patient to call office. Maria G Bolanos RN [facility]11-[facility]24 Telephone encounter Note* Telephone Encounter - Mabel Oshea APRN.CNM - 05/10/2024 12:51 PM EST Order signed. Please assist with scheduling Mabel Oshea APRN.CNM [facility] Work Phone: [phone] Telephone encounter Note* Telephone Encounter - Maria G Bolanos RN - 05/10/2024 12:38 PM EST See note below. It was inserted 04/03/23. Please file order. Maria G Bolanos RN [facility]11-15-2024 Telephone encounter Note* Telephone Encounter - Elizabeth Lan - 05/10/2024 11:58 AM EST Pt called in demanding nexplanon removal. Asked for nurse to call back. Please advise. Thank you [facility]11-15-2024 Telephone encounter Note* Telephone Encounter - Meredith Wall LPN - 05/10/2024 10:01 AM EST Prescription Refill Information The patient has been identified by name and date of : Yes Caregiver verified no other encounters exist for this prescription request: Yes The last office visit in the department: 04/05/23, patient has appt 05/10/24 Assessment & Plan: Aissatou Betts is a 32 year old right-handed female [...] is currently in recovery from substance use disorderand is not currently using, has history of heroin and crack cocaine use. Patient likely suffering fr om exacerbation of migraines, but due to patient's history of lymphoma, new daily persistent headache presentation, and sustained rightward nystagmus on exam, will obtain MRI of the brain. We will obtain without contrast due to patient's kidney disease. Regarding treatment of patient's headaches, patient is currently taking Elavil, but states that sheonly takes half a tablet because it is so sedating. Has an appointment with psychiatry next week todiscuss psychiatric meds, will not make adjustments to Elavil at this time. Did discuss supplementsand patient is amenable to try supplements for [...] over the last year, not necessarily associate withher headache. Encouraged her to see an eye [...] provided with radiology test); MRI Brain Inject, intravenously,once for 1 dose.No IV access, insert saline [...] which included preparing to see the patient, [id number] patient care, completing clinical documentation, obtaining and/or reviewing separately obtained history, performing a medically appropriate examination, counseling and educating the pat ient/family/caregiver, and ordering medications, tests, or procedures. Bethany Gil PA-C [facility] We will get a precert [...] conjunction with CGRP preventive medications. Medication overuse, alternatediagnosis, confounding psychiatric or social stresses have been ruled out as the cause of headaches. Severity: moderate to severe Quality: throbbing Migraine days a month: daily Headache days a month: daily Total Headache days a month: daily Headache free days a month: 0 The following preventative medications have been tried for at least three months without benefit ordiscontinued due to side effects: Elavil Abilify Zoloft *Patient with CKD and GFR of 36, will refrain from using topiramate or gabapentin as they are renally excreted, will avoid propranolol as she has history of asthma. The following abortive medications have been tried but require high frequency use which can lead toMedication Overuse Headache: Imitrex Tylenol *Patient cannot use [...] or word sense) that have escaped review. Does the patient have a future office visit with this provider/department: No Requested Prescriptions Pending Prescriptions Disp Refills SUMAtriptan (IMITREX) 100 mg tablet 9 tablet 5 Sig: Take 1 tablet (100 mg) by mouth as needed for migraine headache (see administration instructions) (do not use on more than 2 dyas per week.). May repeat dose after 2 hours if needed. Maximum daily dose is 200 mg per day. No more than 9 doses in a month. fremanezumab-vfrm (AJOVY AUTOINJECTOR) 225 mg/1.5 mL auto-injector 1.5 mL 5 Sig: Inject 1.5 mL subcutaneously once every month. Do not shake. Meredith Wall LPN May 10, 2024 10:01 AM [facility]11-15-[facility] Miscellaneous Notes* Telephone Encounter - Meredith Wall LPN - 05/10/2024 10:01 AM EST Prescription Refill Information The patient has been identified by name and date of : Yes Caregiver verified no other encounters exist for this prescription request: Yes The last office visit in the department: 04/05/23, patient has appt 05/10/24 Assessment & Plan: Aissatou Betts is a 32 year old right-handed female [...] is currently in recovery from substance use disorderand is not currently using, has history of heroin and crack cocaine use. Patient likely suffering fr om exacerbation of migraines, but due to patient's history of lymphoma, new daily persistent headache presentation, and sustained rightward nystagmus on exam, will obtain MRI of the brain. We will obtain without contrast due to patient's kidney disease. Regarding treatment of patient's headaches, patient is currently taking Elavil, but states that sheonly takes half a tablet because it is so sedating. Has an appointment with psychiatry next week todiscuss psychiatric meds, will not make adjustments to Elavil at this time. Did discuss supplementsand patient is amenable to try supplements for [...] over the last year, not necessarily associate withher headache. Encouraged her to see an eye [...] provided with radiology test); MRI Brain Inject, intravenously,once for 1 dose.No IV access, insert saline [...] which included preparing to see the patient, [id number] patient care, completing clinical documentation, obtaining and/or reviewing separately obtained history, performing a medically appropriate examination, counseling and educating the pat ient/family/caregiver, and ordering medications, tests, or procedures. Bethany Gil PA-C [facility] We will get a precert [...] conjunction with CGRP preventive medications. Medication overuse, alternatediagnosis, confounding psychiatric or social stresses have been ruled out as the cause of headaches. Severity: moderate to severe Quality: throbbing Migraine days a month: daily Headache days a month: daily Total Headache days a month: daily Headache free days a month: 0 The following preventative medications have been tried for at least three months without benefit ordiscontinued due to side effects: Elavil Abilify Zoloft *Patient with CKD and GFR of 36, will refrain from using topiramate or gabapentin as they are renally excreted, will avoid propranolol as she has history of asthma. The following abortive medications have been tried but require high frequency use which can lead toMedication Overuse Headache: Imitrex Tylenol *Patient cannot use [...] or word sense) that have escaped review. Does the patient have a future office visit with this provider/department: No Requested Prescriptions Pending Prescriptions Disp Refills SUMAtriptan (IMITREX) 100 mg tablet 9 tablet 5 Sig: Take 1 tablet (100 mg) by mouth as needed for migraine headache (see administration instructions) (do not use on more than 2 dyas per week.). May repeat dose after 2 hours if needed. Maximum daily dose is 200 mg per day. No more than 9 doses in a month. fremanezumab-vfrm (AJOVY AUTOINJECTOR) 225 mg/1.5 mL auto-injector 1.5 mL 5 Sig: Inject 1.5 mL subcutaneously once every month. Do not shake. Meredith Wall LPN May 10, 2024 10:01 AM documented in this encounterCommunity [facility]11-14-[facility]24 Note* Addendum Note - Remigio Genao MD - 05/09/2024 1:51 PM ESTAddended by: REMIGIO GENAO on: 05/09/2024 01:51 PM Modules accepted: Orders [facility]11-14-2024 Miscellaneous Notes* Addendum Note - Remigio Genao MD - 05/09/2024 1:51 PM ESTAddended by: REMIGIO GENAO on: 05/09/2024 01:51 PM Modules accepted: Orders * Telephone Encounter - Remigio Genao MD - 05/09/2024 1:49 PM EST Please ask patient to go to lab. She needs labs. Remigio Genao MD May 09, 2024 1:50 PM * Telephone Encounter - Cary Olson MA - 05/09/2024 1:09 PM EST Requesting refills as follows: Requested Prescriptions Pending Prescriptions Disp Refills erenumab-aooe (AIMOVIG AUTOINJECTOR) 70 mg/mL auto-injector 1 mL 5 Sig: Inject 1 mL subcutaneously once every month. Do not shake. levothyroxine (SYNTHROID) 50 mcg tablet 30 tablet 5 Sig: Take 1 tablet by mouth daily at 6 am. Last visit Visit date 01/19/[address] Genao Next scheduled Visit 05/10/2024 documented in [facility] encounter[facility] Telephone encounter Note * Telephone Encounter - Remigio Genao MD - 05/09/2024 1:49 PM EST Please ask patient to go to lab. She needs labs. Remigio Genao MD May 09, 2024 1:50 PM [facility] Telephone encounter Note* Telephone Encounter - Giuliana Orta MA - 05/09/2024 1:14 PM EST Patient phones requesting refills as follows: Requested Prescriptions Pending Prescriptions Disp Refills ondansetron (ZOFRAN) 8 mg tablet 60 tablet 2 Sig: Take 1 tablet by mouth once daily. metoclopramide HCl (REGLAN) 5 mg tablet 120 tablet 1 Sig: Take 1 tablet by mouth four times daily. Please review and advise. Giuliana Orta MA [facility]11-14-2024 Miscellaneous Notes* Telephone Encounter - Giuliana Orta MA - 05/09/2024 1:14 PM EST Patient phones requesting refills as follows: Requested Prescriptions Pending Prescriptions Disp Refills ondansetron (ZOFRAN) 8 mg tablet 60 tablet 2 Sig: Take 1 tablet by mouth once daily. metoclopramide HCl (REGLAN) 5 mg tablet 120 tablet 1 Sig: Take 1 tablet by mouth four times daily. Please review and advise. Giuliana Orta MA [facility] Tele[facility] encounter Note * Telephone Encounter - Cary Olson MA - 05/09/2024 1:09 PM EST Requesting refills as follows: Requested Prescriptions Pending Prescriptions Disp Refills erenumab-aooe (AIMOVIG AUTOINJECTOR) 70 mg/mL auto-injector 1 mL 5 Sig: Inject 1 mL subcutaneously once every month. Do not shake. levothyroxine (SYNTHROID) 50 mcg tablet 30 tablet 5 Sig: Take 1 tablet by mouth daily at 6 am. Last visit Visit date 01/19/[address] Genao Next scheduled Visit 05/10/2024 [facility] Telephone encounter Note* Telephone Encounter - Salvador Shell MD - 05/09/2024 12:17 PM EST Valtrex given for 2 months. Needs to schedule annual. Salvador Shell MD [facility] Miscellaneous Notes* Telephone Encounter - Salvador Shell MD - 05/09/2024 12:17 PM EST Valtrex given for 2 months. Needs to schedule annual. Salvador Shell MD * Telephone Encounter - Katelyn Michaels RN - 05/09/2024 11:44 AM EST Last OV 06/16/23. Requested Prescriptions Pending Prescriptions Disp Refills miconazole (MONISTAT 7) 2 % vaginal cream 45 g 2 Sig: Use 1 Applicator vaginally daily at bedtime. triamcinolone acetonide (KENALOG) 0.1 % ointment 30 g 2 Sig: Apply to affected area two times a day. For 10-14 days vitamin A and D ointment 113 g 2 Sig: Apply to affected area as needed. valACYclovir (VALTREX) 500 mg tablet 30 tablet 11 Sig: Take 1 tablet by mouth once daily. Katelyn Michaels RN documented [facility] Telephone encounter Note * Telephone Encounter - Katelyn Michaels RN - 05/09/2024 11:44 AM EST Last OV 06/16/23. Requested Prescriptions Pending Prescriptions Disp Refills miconazole (MONISTAT 7) 2 % vaginal cream 45 g 2 Sig: Use 1 Applicator vaginally daily at bedtime. triamcinolone acetonide (KENALOG) 0.1 % ointment 30 g 2 Sig: Apply to affected area two times a day. For 10-14 days vitamin A and D ointment 113 g 2 Sig: Apply to affected area as needed. valACYclovir (VALTREX) 500 mg tablet 30 tablet 11 Sig: Take 1 tablet by mouth once daily. Katelyn Michaels RN [facility] NoteHNO ID: [id number] Author: MARILU RAYA PA-C Service: ? Author Type: Physician Health Records Technology Teacher Type: Progress Notes Filed: 04/23/2024 18:21 Note Text: This note was created using Nakedriter. Subjective Aissatou Betts is a 33 year old female. HPI Presents with a chief complaint of cough, chest congestion, wheezing and shortness of breath over the past 4 days. She felt feverish yesterday. No OTC meds used that she was not sure what to take with her kidney disease. She does have a history of Hodgkin's lymphoma that is been in remission since 2008. She denies vomiting or diarrhea. No rash. Some nasal congestion. She does have history or asthma and is a smoker. Review of Systems Constitutional: Positive for fatigue and fever. HENT: Positive for congestion and sore throat. Negative for ear pain. Respiratory: Positive for cough, shortness of breath and wheezing. Cardiovascular: Negative. Gastrointestinal: Negative. Genitourinary: Negative. Musculoskeletal: Negative. Neurological: Positive for headaches. All other systems reviewed and are negative. PAST MEDICAL HISTORY Diagnosis Date Alcohol abuse polysubstance abuse. 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 loss in left ear Depression 10/12/2011 Headache High blood pressure per patient - associated with breathing History of delivery Hodgkin's disease 2008 S/p chemo/radiation Hypothyroidism Solitary kidney, congenital pt born with single kidney Current Outpatient Medications Medication Sig Dispense Refill SUMAtriptan (IMITREX) 100 mg tablet Take 1 tablet (100 mg) by mouth as needed for migraine headache (see administration instructions) (do not use on more than 2 dyas per week.). May repeat dose after 2 hours if needed. Maximum daily dose is 200 mg per day. No more than 9 doses in a month. 9 tablet 5 fremanezumab-vfrm (AJOVY AUTOINJECTOR) 225 mg/1.5 mL auto-injector Inject 1.5 mL subcutaneously once every month. Do not shake. 1.5 mL 5 amitriptyline (ELAVIL) 10 mg tablet Take 1 tablet by mouth daily at bedtime. 90 tablet 3 erenumab-aooe (AIMOVIG AUTOINJECTOR) 70 mg/mL auto-injector Inject 1 mL subcutaneously once every month. Do not shake. 1 mL 5 ondansetron orally disintegrating (ZOFRAN ODT) 4 mg disintegrating tablet Take 1 tablet by mouth every 8 hours as needed for nausea/vomiting. 30 tablet 11 levothyroxine (SYNTHROID) 50 mcg tablet Take 1 tablet by mouth daily at 6 am. 30 tablet 5 hydrOXYzine HCl (ATARAX) 50 mg tablet 1 tablet Orally Four times a day ondansetron (ZOFRAN) 8 mg tablet Take 1 tablet by mouth once daily. 60 tablet 2 metoclopramide HCl (REGLAN) 5 mg tablet Take 1 tablet by mouth four times daily. 120 tablet 1 Cholecalciferol, Vitamin D3, (VITAMIN D) 25 mcg (1,000 unit) cap Take 2 capsules by mouth once daily. 60 capsule 2 gabapentin (NEURONTIN) 100 mg capsule Take 2 capsules by mouth one time only for 1 dose. 2 capsule 0 gabapentin (NEURONTIN) 100 mg capsule Take 1 capsule by mouth three times a day for 12 doses. Do not start before September 16, 2023. 12 capsule 0 melatonin 3 mg tablet Take 1 tablet by mouth daily at bedtime. 30 tablet 0 traZODone (DESYREL) 50 mg tablet Take 0.5 tablets by mouth at bedtime as needed. 30 tablet 0 miconazole (MONISTAT 7) 2 % vaginal cream Use 1 Applicator vaginally daily at bedtime. 45 g 2 valACYclovir (VALTREX) 500 mg tablet Take 1 tablet by mouth once daily. 30 tablet 11 ADVAIR DISKUS 500-50 mcg/dose dsdv Inhale 1 Puff as instructed two times a day. RINSE AND GARGLE MOUTH WITH WATER AFTER EACH USE. 1 Each 5 montelukast (SINGULAIR) 10 mg tablet Take 1 tablet by mouth daily at bedtime. 30 tablet 5 etonogestrel (NEXPLANON) subdermal implant 68 mg 1 Each by SUBDERMAL route as directed. 1 Each 0 benzonatate (TESSALON PERLES) 100 mg capsule Take 2 capsules by mouth three times a day as needed. 30 capsule 0 predniSONE (DELTASONE) 20 mg tablet Take 2 tablets by mouth once daily for 5 days. [address] (PROTONIX) 20 mg tablet Take 1 tablet by mouth daily before breakfast. Take on empty stomach, 1/2 hr before meal. 30 tablet 0 zinc sulfate 220 mg (50 mg zinc) capsule Take 1 capsule by mouth once daily for 21 days. 21 capsule 0 triamcinolone acetonide (KENALOG) 0.1 % ointment Apply to affected area two times a day. For 10-14 days 30 g 2 vitamin A and D ointment Apply to affected area as needed. 113 g 2 VITAMIN D-3 50 mcg (2,000 unit) cap Take 1 capsule by mouth once daily. (Patient not taking: Reported on 04/23/2024) VITAMIN B-12 500 mcg tab tab(s) Take 1 tablet by mouth once daily. No current facility-administered medications for this visit. PAST SURGICAL HISTORY Procedure Laterality Date SECTION HX 02/24/2016 COLONOSCOPY SCREENING 2022 HERPES 1 AND 2, IGB+ 2011 NEXPLANON INSERTION Left 04/20/2023 Placed in office (more content not included)...[facility]10-29-2024 History of Present illness Narrative* Marilu Raya PA-C - 04/23/2024 6:18 PM EDT This note was created using Nakedriter. Subjective Aissatou Btets is a 33 year old female. HPI Presents with a chief complaint of cough, chest congestion, wheezing and shortness of breath over the past 4 days. She felt feverish yesterday. No OTC meds used that she was not sure what to take with her kidney disease. She does have a history of Hodgkin's lymphoma that is been in remission since 2008. She denies vomiting or diarrhea. No rash. Some nasal congestion. She does have history or asthma and is a smoker. Review of Systems Constitutional: Positive for fatigue and fever. HENT: Positive for congestion and sore throat. Negative for ear pain. Respiratory: Positive for cough, shortness of breath and wheezing. Cardiovascular: Negative. Gastrointestinal: Negative. Genitourinary: Negative. Musculoskeletal: Negative. Neurological: Positive for headaches. All other systems reviewed and are negative. PAST MEDICAL HISTORY Diagnosis Date Alcohol abuse polysubstance abuse. 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 loss in left ear Depression 10/12/2011 Headache High blood pressure per patient - associated with breathing History of delivery Hodgkin's disease 2008 S/p chemo/radiation Hypothyroidism Solitary kidney, congenital pt born with single kidney Current Outpatient Medications Medication Sig Dispense Refill SUMAtriptan (IMITREX) 100 mg tablet Take 1 tablet (100 mg) by mouth as needed for migraine headache(see administration instructions) (do not use on more than 2 dyas per week.). May repeat dose after2 hours if needed. Maximum daily dose is 200 mg per day. No more than 9 doses in a month. 9 tablet 5 fremanezumab-vfrm (AJOVY AUTOINJECTOR) 225 mg/1.5 mL auto-injector Inject 1.5 mL subcutaneously once every month. Do not shake. 1.5 mL 5 amitriptyline (ELAVIL) 10 mg tablet Take 1 tablet by mouth daily at bedtime. 90 tablet 3 erenumab-aooe (AIMOVIG AUTOINJECTOR) 70 mg/mL auto-injector Inject 1 mL subcutaneously once every month. Do not shake. 1 mL 5 ondansetron orally disintegrating (ZOFRAN ODT) 4 mg disintegrating tablet Take 1 tablet by mouth every 8 hours as needed for nausea/vomiting. 30 tablet 11 levothyroxine (SYNTHROID) 50 mcg tablet Take 1 tablet by mouth daily at 6 am. 30 tablet 5 hydrOXYzine HCl (ATARAX) 50 mg tablet 1 tablet Orally Four times a day ondansetron (ZOFRAN) 8 mg tablet Take 1 tablet by mouth once daily. 60 tablet 2 metoclopramide HCl (REGLAN) 5 mg tablet Take 1 tablet by mouth four times daily. 120 tablet 1 Cholecalciferol, Vitamin D3, (VITAMIN D) 25 mcg (1,000 unit) cap Take 2 capsules by mouth once daily. 60 capsule 2 gabapentin (NEURONTIN) 100 mg capsule Take 2 capsules by mouth one time only for 1 dose. 2 capsule 0 gabapentin (NEURONTIN) 100 mg capsule Take 1 capsule by mouth three times a day for 12 doses. Do not start before September 16, 2023. 12 capsule 0 melatonin 3 mg tablet Take 1 tablet by mouth daily at bedtime. 30 tablet 0 traZODone (DESYREL) 50 mg tablet Take 0.5 tablets by mouth at bedtime as needed. 30 tablet 0 miconazole (MONISTAT 7) 2 % vaginal cream Use 1 Applicator vaginally daily at bedtime. 45 g 2 valACYclovir (VALTREX) 500 mg tablet Take 1 tablet by mouth once daily. 30 tablet 11 ADVAIR DISKUS 500-50 mcg/dose dsdv Inhale 1 Puff as instructed two times a day. RINSE AND GARGLE MOUTH WITH WATER AFTER EACH USE. 1 Each 5 montelukast (SINGULAIR) 10 mg tablet Take 1 tablet by mouth daily at bedtime. 30 tablet 5 etonogestrel (NEXPLANON) subdermal implant 68 mg 1 Each by SUBDERMAL route as directed. 1 Each 0 benzonatate (TESSALON PERLES) 100 mg capsule Take 2 capsules by mouth three times a day as needed. 30 capsule 0 predniSONE (DELTASONE) 20 mg tablet Take 2 tablets by mouth once daily for 5 days. [address] (PROTONIX) 20 mg tablet Take 1 tablet by mouth daily before breakfast. Take on empty stomach, 1/2 hr before meal. 30 tablet 0 zinc sulfate 220 mg (50 mg zinc) capsule Take 1 capsule by mouth once daily for 21 days. 21 capsule0 triamcinolone acetonide (KENALOG) 0.1 % ointment Apply to affected area two times a day. For 10-14 days 30 g 2 vitamin A and D ointment Apply to affected area as needed. 113 g 2 VITAMIN D-3 50 mcg (2,000 unit) cap Take 1 capsule by mouth once daily. (Patient not taking: Reported on 04/23/2024) VITAMIN B-12 500 mcg tab tab(s) Take 1 tablet by mouth once daily. No current facility-administered medications for this visit. PAST SURGICAL HISTORY Procedure Laterality Date SECTION HX 02/24/2016 COLONOSCOPY SCREENING 2022 HERPES 1 & 2, IGB+ 2011 NEXPLANON [...] Aunt Social History Tobacco Use Smoking status: Every Day Current packs/day: 0.50 Average packs/day: 0.5 packs/day for 0.7 years (0.4 ttl pk-yrs) Types: Cigarettes Smokeless tobacco: Never Vaping Use Vaping status: Former Substances: Nicotine, Flavoring Substance Use Topics Alcohol use: Not Currently Alcohol/week: 1.0 standard drink of alcohol Types: 1 Cans of beer per week Drug use: Yes Types: Marijuana Comment: used heroin, crack, marijuana, meth in past. Last used heroin and crack November 12, 2021 Objective BP 112/64 Pulse 93 Temp 36.8 C (98.3 F) (Tympanic) Resp 18 Wt 50.2 kg (110 lb 10.7 oz) LMP 04/15/2023 (Exact Date) SpO2 96% BMI 16.34 kg/m Physical Exam Vitals reviewed. Constitutional: Appearance: Normal appearance. HENT: Head: Normocephalic and atraumatic. Right Ear: Tympanic membrane, ear canal and external ear normal. Left Ear: Tympanic membrane, ear canal and external ear normal. Nose: Congestion present. Mouth/Throat: Mouth: Mucous membranes are moist. Pharynx: Oropharynx is clear. Cardiovascular: Rate and Rhythm: Normal rate and regular rhythm. Heart sounds: Normal heart sounds. Pulmonary: Effort: Pulmonary effort is normal. Breath sounds: Wheezing (diffuse mild, expiratory) present. Musculoskeletal: Cervical back: Neck supple. Skin: General: Skin is warm and dry. Findings: No rash. Neurological: General: No focal deficit present. Mental Status: She is alert. Assessment and Plan ASSESSMENT/PLAN: 1. Bronchitis - ICD9: 490, ICD10: J40 (primary diagnosis) Chest x-ray on my read shows no pneumonia, still pending radiology read. I will treat with prednisone and Tessalon. If chest x-ray shows pneumonia recommend adding doxycycline. Discussed red flags delfin seen again. Patient agreeable with plan. 2. Wheezing - ICD9: 786.07, ICD10: R06.2 - XR CHEST 2V FRONTAL/LAT Marilu Raya PA-C documented in this [facility] History of Present illness Narrative* Emmy Jacinto RT(R) - 04/23/2024 5:50 PM EDT Radiology Service Progress Note PATIENT NAME: Aissatou Betts DATE OF SERVICE: April 23, 2024 TIME: 5:40 PM PATIENT IDENTITY VERIFICATION COMPLETED USING TWO (2) IDENTIFIERS: Name and Date of confirmedby patient verbally. FALL SCREENING: Has the patient had 2 falls in the last year or 1 fall with injury or currently using an Ambulatory Assistive Device (Walker, Cane, Wheelchair, Crutches, etc.)? No PATIENT GENDER DATA: Female. status: : No status: NO. PATIENT RELEVANT IMPLANT DATA REVIEWED: Yes PATIENT PRESENTS WITH AN IMPLANTABLE OR ATTACHED MANUFACTURING WORKER: No RADIOLOGY DEPARTMENT: General X-ray: Exam(s) Completed: Chest X-Ray PERIPHERAL IV DATA: Not applicable SIGNED BY: RT Haven(R) April 23, 2024 5:40 PM documented in this encounterCommunity [facility]10-[facility]24 NoteHNO ID: [id number] Author: EMMY JACINTO RT(R) Service: Radiology Author Type: Technologist Type: Progress Notes Filed: 04/23/2024 17:49 Note Text: Radiology Service Progress Note PATIENT NAME: Aissatou Betts DATE OF SERVICE: April 23, 2024 TIME: 5:40 PM PATIENT IDENTITY VERIFICATION COMPLETED USING TWO (2) IDENTIFIERS: Name and Date of confirmed by patient verbally. FALL SCREENING: Has the patient had 2 falls in the last year or 1 fall with injury or currently using an Ambulatory Assistive Device (Walker, Cane, Wheelchair, Crutches, etc.)? No PATIENT GENDER DATA: Female. status: : No status: NO. PATIENT RELEVANT IMPLANT DATA REVIEWED: Yes PATIENT PRESENTS WITH AN IMPLANTABLE OR ATTACHED MANUFACTURING WORKER: No RADIOLOGY DEPARTMENT: General X-ray: Exam(s) Completed: Chest X-Ray PERIPHERAL IV DATA: Not applicable SIGNED BY: RT Haven(R) April 23, 2024 5:40 [facility]10-10-2024 History of Present illness Narrative* Manuel Coy APRN.AIR TRANSPORTATION PROVIDER - 04/04/2024 2:30 PM EDT Patient did not log in. Citlali DE LA ROSA with Bethany Gil PA-C in general neurology for the management of migraines Manuel Coy APRN.AIR TRANSPORTATION PROVIDER April 04, 2024 3:18 PM documented in this encounterCommunity [facility]10-[facility]24 NoteHNO ID: [id number] Author: MANUEL COY APRN.CNP Service: ? Author Type: Nurse Practitioner Type: Progress Notes Filed: 04/04/2024 15:19 Note Text: Patient did not log in. Citlali john VV with Bethany Gil PA-C in general neurology for the management of migraines Manuel Coy APRN.CNP April 04, 2024 3:18 [facility]10-10-2024 Instructions* Patient Instructions* Bethany Gil PA-C - 04/04/2024 12:19 PM EDT Will try Ajovy injection and continue Elavil 10mg at night Imitrex with onset of headache Increase water intake to 60 ounces a day Follow up in 4-5 months documented in this encounterCommunity [facility]10-[facility]24 NoteHNO ID: [id number] Author: BETHANY GIL PA-C Service: ? Author Type: Physician Health Records Technology Teacher Type: Progress Notes Filed: 04/04/2024 12:37 Note Text: [facility] General Neurology Follow Up / Established Virtual Visit I have communicated my name and active licensure. The patient's identity and physical location were verified at the time of this visit. Either the patient or their legal customer service representative teacher has been informed of the risks and benefits of -- and alternatives to -- treatment through a remote evaluation and consents to proceed with the evaluation remotely. Individuals who were included in, or assisted with the encounter were: Aissatou Doherty Alpesh Gil PA-C Chief Complaint/Issues: Aissatou Betts is a 33 year old female seen in the [facility] for General Neurology for: Follow up Most Recent Neurological Assessment and Plan: Last Filed Values None HPI/Interval History: Last Visit: 05/05/23 Patient presents for her first botox cycle. [...] in three months for repeat botox administration. Today: Patient is here for headache/migraine follow up. Last seen 05/05/23 for botox, having daily 8/10 headaches. Tried nurtec and on elavil. Since last visit headaches have improved. Notes that she is having about 7 headaches a month, was having daily headaches when she was last seen. She did see headache, was recommended to start Aimovig but she never started it. Has been continuing Elavil 10 mg does feel it helps both her anxiety as well as her headaches. We did try the Nurtec but does not believe it helped as much as the Imitrex and would like to go back on the Imitrex. No new symptoms. Does not that she is going back to work and is having some issues with her mental health, in terms of anxiety, did see psychiatry in the past but nothing recently. Current Headache treatment Preventative: elavil Abortive: nurtec Medications effective? yes # of doses of abortive medications per month: few Total headache days per month: 7 per month Total headache attacks per month: 7 per month Headache free days: Yes Duration of attacks: 4 hours to 3 days Severity of headaches? 8/10 Location: Neck and left side of the head, occasionally on the right. Aura: None Accompanying symptoms: photophobia, phonophobia, osmophobia, nausea, vomiting, blurred vision, neck pain. Quality:dull and throbbing. Worse with activity: Yes Pain today: 0/10 Triggers: menses, weather changes, exertion/exercise, and caffeine withdrawal. . Prodrome:none. Tobacco Use: No. Alcohol Use: No Caffeine:Yes: Soda once daily Water intake: Poor Sleep: Poor Prior Therapies Elavil Imitrex Abilify Zoloft Maxalt Botox- helped but felt she had psychosis. Nurtec Gabapentin General Examination: She is accompanied by her spouse. General: Awake, alert, interactive, no acute distress, good nutritional status, normal development, well-kept Only a limited general examination was done. Neurological Exam Mental Status Alert, fully oriented, attentive, with normal cognition, memory. Pressured speech, easily distracted, moving around throughout appointment Cranial Nerves Extraocular movements normal. No nystagmus, no ptosis, and pupils equal. Face symmetrical. Motor Examination and Coordination Distance Motor Examination Arms: Well-coordinated symmetrical strong antigravity movements of both arms. Manipulates phone and small objects well. No tremor or adventitious movements. No dysmetria on finger-nose testing. Assessment AND Plan 04/04/2024 - General Neurology, Bethany Gil PA-C ASSESSMENT ASSESSMENT/PLAN: 1. Intractable chronic migraine without aura and without status migrainosus - ICD9: 346.71, ICD10: G43.719 Patient with improvement in her headaches since she was seen last, was having daily headaches. Did not tolerate Botox well, states that it was effective but when the headaches came back they came back even worse, felt that it made her psychotic how severe the headaches were. No change in the headache since that time other than improvement, no new symptoms. Did see headache, Dr. Genao and was prescribed Aimovig but she did not take it. Notes that she would like to continue following with myself. Did try Nurtec, states it was effective but feels Imitrex is more effective and so she would like to continue this. No history of stroke heart attack or liver disease, will refill Imitrex 100 mg day with onset of headache. Patient also needs refill for her amitriptyline 10 mg, will send this as well. Di (more content not included)...[facility]10-10-2024 History of Present illness Narrative* Bethany Gil PA-C - 04/04/2024 12:04 PM EDT Images from the original note were not included. [facility] for General Neurology Follow Up / Established Virtual Visit I have communicated my name and active licensure. The patient's identity and physical location wereverified at the time of this visit. Either the patient or their legal customer service representative teacher has been informed of the risks and benefits of -- and alternatives to -- treatment through a remote evaluation andconsents to proceed with the evaluation remotely. Individuals who were included in, or assisted with the encounter were: Aissatou Betts Bethany Gil PA-C Chief Complaint/Issues: Aissatou Betts is a 33 year old female seen in the [facility] for General Neurology for: Follow up Most Recent Neurological Assessment and Plan: Last Filed Values None HPI/Interval History: Last Visit: 05/05/23 Patient presents for her first botox cycle. [...] in three months for repeat botox administration. Today: Patient is here for headache/migraine follow up. Last seen 05/05/23 for botox, having daily 8/10 headaches. Tried nurtec and on elavil. Since last visit headaches have improved. Notes that she is having about 7 headaches a month, was having daily headaches when she was last seen. She did see headache, was recommended to start Aimovigbut she never started it. Has been continuing Elavil 10 mg does feel it helps both her anxiety as well as her headaches. We did try the Nurtec but does not believe it helped as much as the Imitrex and would like to go back on the Imitrex. No new symptoms. Does not that she is going back to work andis having some issues with her mental health, in terms of anxiety, did see psychiatry in the past but nothing recently. Current Headache treatment Preventative: elavil Abortive: nurtec Medications effective? yes # of doses of abortive medications per month: few Total headache days per month: 7 per month Total headache attacks per month: 7 per month Headache free days: Yes Duration of attacks: 4 hours to 3 days Severity of headaches? 8/10 Location: Neck and left side of the head, occasionally on the right. Aura: None Accompanying symptoms: photophobia, phonophobia, osmophobia, nausea, vomiting, blurred vision, neckpain. Quality:dull and throbbing. Worse with activity: Yes Pain today: 0/10 Triggers: menses, weather changes, exertion/exercise, and caffeine withdrawal. . Prodrome:none. Tobacco Use: No. Alcohol Use: No Caffeine:Yes: Soda once daily Water intake: Poor Sleep: Poor Prior Therapies Elavil Imitrex Abilify Zoloft Maxalt Botox- helped but felt she had psychosis. Nurtec Gabapentin General Examination: She is accompanied by her spouse. General: Awake, alert, interactive, no acute distress, good nutritional status, normal development,well-kept Only a limited general examination was done. Neurological Exam Mental Status Alert, fully oriented, attentive, with normal cognition, memory. Pressured speech, easily distracted, moving around throughout appointment Cranial Nerves Extraocular movements normal. No nystagmus, no ptosis, and pupils equal. Face symmetrical. Motor Examination and Coordination Distance Motor Examination Arms: Well-coordinated symmetrical strong antigravity movements of both arms. Manipulates phone andsmall objects well. No tremor or adventitious movements. No dysmetria on finger-nose testing. Assessment & Plan 04/04/2024 - General Neurology, Bethany Gil PA-C ASSESSMENT ASSESSMENT/PLAN: 1. Intractable chronic migraine without aura and without status migrainosus - ICD9: 346.71, ICD10: G43.719 Patient with improvement in her headaches since she was seen last, was having daily headaches. Did not tolerate Botox well, states that it was effective but when the headaches came back they came back even worse, felt that it made her psychotic how severe the headaches were. No change in the headache since that time other than improvement, no new symptoms. Did see headache, Dr. Genao and was prescribed Aimovig but she did not take it. Notes that she would like to continue following with myself. Did try Nurtec, states it was effective but feels Imitrex is more effective and so she would liketo continue this. No history of stroke heart attack or liver disease, will refill Imitrex 100 mg day with onset of headache. Patient also needs refill for her amitriptyline 10 mg, will send this as well. Discussed trying an injectable, does have issues with constipation so we will avoid Aimovig. Will try Ajovy injection once a month. Patient is amenable, discussed common side effects. Patient to follow-up in 3 to 4 months or sooner should any symptoms change or worsen. Bethany Gil PA-C No diagnosis found. No follow-ups on file. Data Review Objective Current Outpatient Medications Medication Sig erenumab-aooe (AIMOVIG AUTOINJECTOR) 70 mg/mL auto-injector Inject 1 mL subcutaneously once every month. Do not shake. amitriptyline (ELAVIL) 10 mg tablet Take 1 tablet by mouth daily at bedtime. ondansetron orally disintegrating (ZOFRAN ODT) 4 mg disintegrating tablet Take 1 tablet by mouth every 8 hours as needed for nausea/vomiting. SUMAtriptan (IMITREX) 100 mg tablet Take 1 tablet (100 mg) by mouth as needed for migraine headache(see administration instructions) (do not use on more than 2 dyas per week.). May repeat dose after2 hours if needed. Maximum daily dose is 200 mg per day. No more than 9 doses in a month. levothyroxine (SYNTHROID) 50 mcg tablet Take 1 tablet by mouth daily at 6 am. hydrOXYzine HCl (ATARAX) 50 mg tablet 1 tablet Orally Four times a day ondansetron (ZOFRAN) 8 mg tablet Take 1 tablet by mouth once daily. metoclopramide HCl (REGLAN) 5 mg tablet Take 1 tablet by mouth four times daily. pantoprazole DR (PROTONIX) 20 mg tablet Take 1 tablet by mouth daily before breakfast. Take on empty stomach, 1/2 hr before meal. Cholecalciferol, Vitamin D3, (VITAMIN D) 25 mcg (1,000 unit) cap Take 2 capsules by mouth once daily. gabapentin (NEURONTIN) 100 mg capsule Take 2 capsules by mouth one time only for 1 dose. gabapentin (NEURONTIN) 100 mg capsule Take 1 capsule by mouth three times a day for 12 doses. Do not start before September 16, 2023. melatonin 3 mg tablet Take 1 tablet by mouth daily at bedtime. traZODone (DESYREL) 50 mg tablet Take 0.5 tablets by mouth at bedtime as needed. zinc sulfate 220 mg (50 mg zinc) capsule Take 1 capsule by mouth once daily for 21 days. miconazole (MONISTAT 7) 2 % vaginal cream Use 1 Applicator vaginally daily at bedtime. triamcinolone acetonide (KENALOG) 0.1 % ointment Apply to affected area two times a day. For 10-14 days vitamin A and D ointment Apply to affected area as needed. valACYclovir (VALTREX) 500 mg tablet Take 1 tablet by mouth once daily. ADVAIR DISKUS 500-50 mcg/dose dsdv Inhale 1 Puff as instructed two times a day. RINSE AND GARGLE MOUTH WITH WATER AFTER EACH USE. montelukast (SINGULAIR) 10 mg tablet Take 1 tablet by mouth daily at bedtime. etonogestrel (NEXPLANON) subdermal implant 68 mg 1 Each by SUBDERMAL route as directed. VITAMIN D-3 50 mcg (2,000 unit) cap Take 1 capsule by mouth once daily. VITAMIN B-12 500 mcg tab tab(s) Take 1 tablet by mouth once daily. No current facility-administered medications for this visit. ACTIVE PROBLEM LIST Hodgkin Lymphoma (Hcc) Backache, Unspecified Cervicalgia Depression Congenital Solitary Kidney Decreased Hearing Bipolar 1 Disorder (Hcc) Substance abuse (HCC) Numbness Trichomoniasis History of Imperforate Anus Other Specified Hypothyroidism History of Delivery Uterus Didelphys Uti (Urinary Tract Infection) in , Antepartum Chronic Hepatitis C Without Hepatic Coma (Hcc) Iron Deficiency Anemia Social Problem History of Delivery Tobacco Use Disorder Buprenorphine Maintenance Treatment Affecting (Hcc) Supervision of High Risk , Antepartum Dizziness Acute Kidney Injury (Hcc) Vater/Vaterl Syndrome Ptsd (Post-Traumatic Stress Disorder) Zinc Deficiency PAST MEDICAL HISTORY Diagnosis Date Alcohol abuse [...] HISTORY Procedure Laterality Date SECTION HX 02/24/2016 COLONOSCOPY SCREENING 2022 HERPES 1 & 2, IGB+ 2011 NEXPLANON INSERTION Left 04/20/2023 Placed in office PAST SURGICAL HISTORY OF kidney surgery PAST SURGICAL HISTORY OF rectal PAST SURGICAL HISTORY OF 06/09/2009 Left Supraclavicular Lymphnode Excision VSD CLOSURE Social History Tobacco Use Smoking status: Every Day Current packs/day: 0.50 Average packs/day: 0.5 packs/day for 0.7 years (0.4 ttl pk-yrs) Types: Cigarettes Smokeless tobacco: Never Vaping Use Vaping status: Former Substances: Nicotine, Flavoring Substance Use Topics Alcohol use: Not Currently Alcohol/week: 1.0 standard drink of alcohol Types: 1 Cans of beer per week Drug use: Yes Types: Marijuana Comment: used heroin, crack, marijuana, meth in past. Last used heroin and crack November 12, 2021 FAMILY HISTORY Problem Relation Age of Onset Hypertension Mother other (depresssion) Mother No Known Problems Father Lung Cancer Maternal Grandfather other (ulcerative colitis) Paternal Grandmother Diabetes Maternal Aunt Review of Systems Lab and Test Review: Results for orders placed or performed in visit on 01/04/24 TSH BLD Result Value Ref Range TSH 1.480 0.270 - 4.200 mIU/L LIPASE Result Value Ref Range Lipase 31 16 - 61 U/L CELIAC SCREEN Result Value Ref Range Transglutaminase IgA Abs <2 <4 U/mL Transglutaminase IgA Abs Interpretation Negative Negative Interpretation (Celiac Screen) No serological evidence of celiac disease, however, if celiac disease is clinically suspected and patient is not on gluten-free diet, histological diagnosis may be considered. HLA testing may help with risk assessment. Gliadin Ab, IgA 6 <20 Units Gliad Deamidated IgA Qual Negative Negative, Test not Indicated IMMUNOGLOBULIN A Result Value Ref Range IgA 177 70 - 400 mg/dL Outside Data/Labs: Subjective Patient-Entered Data: 04/04/24 - GENERAL NEUROLOGY SCORES 06/13/2023 11/22/2023 01/16/2024 PROMIS 10 Health, in general Fair Poor Poor Quality of life, in general Fair Fair Fair Physical health, in general Fair Poor Poor Mental health, in general Fair Poor Poor Social activities satisfaction Fair Fair Fair Performing ADL's Moderately A little A little Social role satisfaction Fair Poor Poor Pain, on average 4 9 9 Fatigue, on average Severe Severe Severe Emotional problems Sometimes Often Often PHYSICAL Score 34.9 (Poor) 26.7 (Poor) 26.7 (Poor) MENTAL Score 36.3 (Fair) 31.3 (Fair) 31.3 (Fair) 11/22/2023 01/16/2024 01/16/2024 Depression Screening PHQ-2 Score 6 6 6 PHQ-9 Score 22 22 22 ASHKAN-2 Total Score 6 ASHKAN-7 Total Score 21 04/03/2023 SLEEP APNEA SCORE Probability of moderate-severe sleep apnea (%) SAPS V2 8 (Sleep study not recommended) No data to display No data to display I spent a total of 30 minutes on the date of the service which included preparing to see the patient, [id number] patient care, completing clinical documentation, obtaining and/or reviewing separately obtained history, performing a medically appropriate examination, counseling and educating the pat ient/family/caregiver, and ordering medications, tests, or procedures. Bethany Gil PA-C [facility] Telephone encounter Note * Telephone Encounter - Anna Menendez MD - 01/23/2024 4:14 PM EDT Please schedule virtual visit with me on 02/06 at 1pm [facility] Work Phone: [phone] Miscellaneous Notes* Telephone Encounter - Anna Menendez MD - 01/23/2024 4:14 PM EDT Please schedule virtual visit with me on 02/06 at 1pm documented in [facility] encounter[facility] Telephone encounter Note * Telephone Encounter - Terra Lutz RN - 01/19/2024 3:45 PM EDT Forwarded to provider for review. NOELLE: 01/19/2024 Future OV: 04/29/2024 with Manuel Coy APRN.AIR TRANSPORTATION PROVIDER [facility] Miscellaneous Notes* Telephone Encounter - Terra Lutz RN - 01/19/2024 3:45 PM EDT Forwarded to provider for review. NOELLE: 01/19/2024 Future OV: 04/29/2024 with Manuel Coy APRN.WILLIAM documented in [facility] encounter[facility] Telephone encounter Note * Telephone Encounter - Nellie Perez LPN - 01/19/2024 3:43 PM EDT She saw Dr. Genao today and hasn't seen me since April so would have him make a letter if he'scomfortable with it. Bethany Gil PA-C [facility] Miscellaneous Notes* Telephone Encounter - Nellie Perez LPN - 01/19/2024 3:43 PM EDT She saw Dr. Genao today and hasn't seen me since April so would have him make a letter if he'scomfortable with it. Bethany Gil PA-C documented [facility] Telephone encounter Note * Telephone Encounter - Terra Lutz RN - 01/19/2024 3:42 PM EDT Forwarded to provider for review. NOELLE: 01/19/2024 Future OV: 04/29/2024 with Manuel Coy APRN.AIR TRANSPORTATION PROVIDER [facility] Miscellaneous Notes* Telephone Encounter - Terra Lutz RN - 01/19/2024 3:42 PM EDT Forwarded to provider for review. NOELLE: 01/19/2024 Future OV: 04/29/2024 with Manuel Coy APRN.AIR TRANSPORTATION PROVIDER documented in this encounterCommunity [facility] History of Present illness Narrative* Remigio Genao MD - 01/19/2024 2:07 PM EDT HEADACHE MEDICINE NEW EVALUATION January 19, 2024 2:20 PM I have communicated my name and active licensure. The patient's identity and physical location wereverified at the time of this visit. Either the patient or their legal customer service representative teacher has been informed of the risks and benefits of -- and alternatives to -- treatment through a remote evaluation andconsents to proceed with the evaluation remotely. Headache 1 Diagnosis: Chronic Migraine Headache (CM) Onset: - Pt reports that her migraines started in childhood, and she is getting frequent migraines. Location: pt reports that REYNOLDS's start unilateral but generalize if prolonged. Quality/Description: throbbing and sharp Associated Symptoms: Photophobia: yes Phonophobia: yes Nausea: yes Vomiting: yes Worse with activity: yes Number of migraine headache days/month: 5 Migraine headache severity: 10/10 Number of NON-migraine headache days/month: 15 Total Number of headache days/month: 20 Number of headache free days/month: 10 Duration of headaches with treatment: Duration of attacks with treatment: 1-3 days. Current preventive treatment: amitriptyline Current abortive treatment: Nurtec, sumatriptan Triggers: sleep- too much and caffeine Onset of headache to peak: abrupt Relieving factors: hot and cold compresses Positional changes: no Most common time of day for headache to begin: morning and evening Prodrome: none Aura: sunspots Allodynia: no Days missed from work or school in the last month: 5 days Lifestyle: Sleep: Pt reports that she sleeps ok after achieving sleep. ++ difficulty falling asleep. PAST MEDICAL HISTORY Diagnosis Date Alcohol abuse [...] HISTORY Procedure Laterality Date SECTION HX 02/24/2016 COLONOSCOPY SCREENING 2022 HERPES 1 & 2, IGB+ 2012 NEXPLANON INSERTION Left 04/20/2023 Placed in office PAST SURGICAL HISTORY OF kidney surgery PAST SURGICAL HISTORY OF rectal PAST SURGICAL HISTORY OF 06/09/2009 Left Supraclavicular Lymphnode Excision VSD CLOSURE Current Outpatient Medications Medication Sig hydrOXYzine HCl (ATARAX) 50 mg tablet 1 tablet Orally Four times a day ondansetron (ZOFRAN) 8 mg tablet Take 1 tablet by mouth once daily. metoclopramide HCl (REGLAN) 5 mg tablet Take 1 tablet by mouth four times daily. pantoprazole DR (PROTONIX) 20 mg tablet Take 1 tablet by mouth daily before breakfast. Take on empty stomach, 1/2 hr before meal. ondansetron orally disintegrating (ZOFRAN ODT) 4 mg disintegrating tablet Take 1 tablet by mouth every 8 hours as needed for nausea/vomiting. Cholecalciferol, Vitamin D3, (VITAMIN D) 25 mcg (1,000 unit) cap Take 2 capsules by mouth once daily. levothyroxine (SYNTHROID) 50 mcg tablet Take 1 tablet by mouth daily at 6 am. gabapentin (NEURONTIN) 100 mg capsule Take 2 capsules by mouth three times a day for 10 doses. (Patient not taking: Reported on 11/12/2023) gabapentin (NEURONTIN) 100 mg capsule Take 2 capsules by mouth one time only for 1 dose. gabapentin (NEURONTIN) 100 mg capsule Take 1 capsule by mouth three times a day for 12 doses. Do not start before September 16, 2023. melatonin 3 mg tablet Take 1 tablet by mouth daily at bedtime. traZODone (DESYREL) 50 mg tablet Take 0.5 tablets by mouth at bedtime as needed. zinc sulfate 220 mg (50 mg zinc) capsule Take 1 capsule by mouth once daily for [address] (DEPAKOTE) 500 mg EC tablet Take 500 mg by mouth two times a day. lurasidone (LATUDA) 60 mg tab tablet Take 60 mg by mouth daily with dinner. miconazole (MONISTAT 7) 2 % vaginal cream Use 1 Applicator vaginally daily at bedtime. triamcinolone acetonide (KENALOG) 0.1 % ointment Apply to affected area two times a day. For 10-14 days vitamin A and D ointment Apply to affected area as needed. valACYclovir (VALTREX) 500 mg tablet Take 1 tablet by mouth once daily. SUMAtriptan (IMITREX) 100 mg tablet Take 1 tablet (100 mg) by mouth as needed for migraine headache(see administration instructions). May repeat dose after 2 hours if needed. Maximum daily dose is 200 mg per day. No more than 10 doses in a month. rimegepant (NURTEC ODT) 75 mg disintegrating tablet Take 1 tablet by mouth once daily as needed. (Patient not taking: Reported on 11/12/2023) ADVAIR DISKUS 500-50 mcg/dose dsdv Inhale 1 [...] Take 1 capsule by mouth once daily. VITAMIN B-12 500 mcg tab tab(s) Take 1 tablet by mouth once daily. No current facility-administered medications for this visit. ALLERGIES Allergen Reactions Cats Shortness of Breath Droperidol Anaphylaxis Laxative Pill GI Upset FAMILY HISTORY Problem Relation Age of Onset Hypertension Mother other (depresssion) Mother No Known Problems Father Lung Cancer Maternal Grandfather other (ulcerative colitis) Paternal Grandmother Diabetes Maternal Aunt Social History Tobacco Use Smoking status: Every Day Packs/day: 0.50 Years: 0.70 Additional pack years: 0.00 Total pack years: 0.35 Types: Cigarettes Smokeless tobacco: Never Vaping Use Vaping Use: Former Substances: Nicotine, Flavoring Substance Use Topics Alcohol use: Not Currently Alcohol/week: 1.0 standard drink of alcohol Types: 1 Cans of beer per week Drug use: Yes Types: Marijuana Comment: used heroin, crack, marijuana, meth in past. Last used heroin and crack November 12, 2021 PHYSICAL EXAMINATION: No vitals for VV General appearance: Well appearing, alert, in no acute distress, well-hydrated, well nourished. Head: NC/AT Eyes: EOMI grossly on video visit Neuro: Negative findings: speech normal, mental status intact, no focal deficits. CN VII intact to facial symmetry, CN VIII intact to hearing. Aissatou was seen today for headache. Diagnoses and all orders for this visit: Intractable chronic migraine without aura and without status migrainosus - erenumab-aooe (AIMOVIG AUTOINJECTOR) 70 mg/mL auto-injector; Inject 1 mL subcutaneously once every month. Do not shake. - amitriptyline (ELAVIL) 10 mg tablet; Take 1 tablet by mouth daily at bedtime. - ondansetron orally disintegrating (ZOFRAN ODT) 4 mg disintegrating tablet; Take 1 tablet by mouthevery 8 hours as needed for nausea/vomiting. - SUMAtriptan (IMITREX) 100 mg tablet; Take 1 tablet (100 mg) by mouth as needed for migraine headache (see administration instructions) (do not use on more than 2 dyas per week.). May repeat dose after 2 hours if needed. Maximum daily dose is 200 mg per day. No more than 9 doses in a month. - PROVIDER ORDERED FOLLOW UP; Future Aissatou Betts is a 33 year old year old female, with a history of chronic migraine. Her neurological examination is essentially normal at this visit based on limits of Zoom observation ICHD-3 Diagnosis: Chronic Migraine Headache (CM) We will request precertification for Calcitonin Gene Related Peptide Monoclonal Antibody, Erenumab.This patient meets ICHD-3 criteria for treatment with CGRP MAB, She has Chronic Migraine Headache (CM), Chronic Migraine without aura, without mention of intractable migraine without mention of status migrainosus which occurs at least 15 days per month for at least 4 hours per day. The FDA has approved CGRP MAB for prevention of migraine. Specifically, the patient has 20 migraines per month, lasting 4 or more hours/d associated with photophobia, phonophobia, nausea, vomiting for three or more months. Medication overuse headache has been ruled out. Patient is not currently taking a Gepant for acute treatment of her migraine. The following preventative medications have been tried for 3 or more months without benefit or discontinued due and/or side effects. Anti-Convulsant Divalproex sodium (Depakote) Delirium, Liver Failure Topiramate (Topamax, Trokendi XL, Qudexy) Pt is contraindicated due to history of CKD Anti-Depressant and Antipsychotic Amitriptyline (Elavil) MABs Erenumab (Aimovig) Botulinum Toxin Onabotulinum Toxin A (Botox) The following abortive medications have been tried but require high frequency use which can lead toMedication Overuse Headache: Anti-Migraine Rizatriptan (Maxalt) Sumatriptan (Imitrex, Sumavel) GEPANTS Rimegepant (Nurtec) Over the Counter Medications Acetaminophen (Tylenol) Acetaminophen/Aspirin/Caffeine (Excedrin, Goody s) Ibuprofen (Advil, Motrin) Naproxen sodium (Aleve) documented in [facility] encounter[facility] History of Present illness Narrative* Teo Patel PA-C - 01/16/2024 2:19 PM EDT Hx of solitary kidney presents with kidney and flank pain. Advised pt to be seen in the emergency room today No charge Pt verbalized understanding of plan Teo Patel PA-C documented in this encounter[facility] History of Present illness Narrative* Yolis Carrasco RT(R) - 01/12/2024 12:00 PM EDT RADIOLOGY SERVICE PROGRESS NOTE SERVICE DATE: 01/12/2024 SERVICE TIME: 12:15 PM PATIENT IDENTITY VERIFICATION COMPLETED USING TWO (2) STANDARD IDENTIFIERS: Name and Date of confirmed by patient verbally FALL SCREENING: Has the patient had 2 falls in the last year or 1 fall with injury or currently using an Ambulatory Assistive Device (Walker, Cane, Wheelchair, Crutches, etc.)? No PATIENT GENDER DATA: .female : No status: No ALLERGIES: Reviewed and unchanged MEDICATIONS REVIEWED: No PATIENT RELEVANT IMPLANT DATA REVIEWED: Not Applicable PATIENT PRESENTS WITH AN IMPLANTABLE OR ATTACHED MANUFACTURING WORKER: No CREATININE: Creatinine Date Value Ref Range Status 09/11/2023 2.04 (H) 0.58 - 0.96 mg/dL Final 09/10/2023 2.21 (H) 0.58 - 0.96 mg/dL Final 10/21/2022 2.01 (H) 0.60 - 1.30 mg/dL Final Comment: Use of this assay is not recommended for patients undergoing treatment with phenindione, due to thepotential for falsely depressed results. Estimated Glomerular Filtration Rate Date Value Ref Range Status 09/11/2023 33 (L) >=60 mL/min/1.73m Final Comment: Estimated Glomerular Filtration Rate (eGFR) is calculated using the 2020 CKD-EPI creatinine equation. This equation utilizes serum creatinine, sex, and age as parameters. The creatinine assay has traceable calibration to isotope dilution- mass spectrometry. Refer to KDIGO guidelines for clinical interpretation. In patients with unstable renal function, e.g. those with acute kidney injury, the eGFRmay not accurately reflect actual GFR. eGFR- Date Value Ref Range Status 02/15/2021 44 Final P.O.C.T. RESULTS: N/A January 12, [address] PERFORMED: No IV SITE: CT only - not applicable, oral or physician administered agents given to patient POST EXAM PIV STATUS: Not applicable PROCEDURE TYPE: NM GET: 1.08 mCi Tc99m SULFUR COLLOID was administered orally via 3 ounces of Egg Beaters with 8 ounces of water orally ADMINISTRATION TIME: 12:30 PATIENT DISCHARGED TO: Ambulatory patient, left CT department area. A Diagnostic radioactive procedure has taken place, with no further precautions necessary other than routine body substance precautions. More information regarding radiation safety can be found usingthis link: [email or web address] SIGNATURE: RT Alberto(Marcell) PATIENT NAME: Aissatou Betts DATE: January 12, 2024 TIME: 2:03 PM PAGER/CONTACT #: documented in this encounterCommunity [facility]07-[facility] History of Present illness Narrative* Glory Chirinos PA-C - 01/03/2024 2:16 PM EDT CHIEF COMPLAINT: Patient presents with: Vomiting: ER 11/12/23 This consult was requested by Thaddeus Shell APRN.* for an opinion regarding vomiting. My final recommendations will be communicated to the requesting health care provider by way of the shared medical record for internal providers or letter via the [employer] for external providers. HPI: Aissatou Betts is a 33 year old female who presents for Vomiting (ER 11/12/23). PMHx of polysubstance abuse, anemia, asthma, Bipolar 1, Chronic Hep C, depression, Hodgkin lymphoma Patient tells me that she has been dealing with vomiting and diarrhea for at least a year. This hasbeen worsening in the last month. Having flares of this. Getting very dehydrated with this. No triggers. Has tried cutting out sodas, diet changes. Has tried Zofran, Reglan, antacids. Notes decreasedappetite. Notes that she is down about 30 lb with symptoms. Moving bowels daily but incomplete. Will have to strain to go. Having intermittent rectal bleeding.Does have colon polyp hx. Last colonoscopy was in 2022. Notes some gas pains in her back. Was on Suboxone in the past. Had Hepatitis C treatment with Mavy[facility]. Trying to stick to a brat diet. Every day smoking. Smoking marijuana. No alcohol use. Latest Ref Rng 09/11/2023 WBC 3.70 - 11.00 k/uL 4.67 RBC 3.90 - 5.20 m/uL 2.80 (L) Hemoglobin 11.5 - 15.5 g/dL 8.1 (L) Hematocrit 36.0 - 46.0 % 25.8 (L) MCV 80.0 - 100.0 fL 92.1 MCH 26.0 - 34.0 pg 28.9 MCHC 30.5 - 36.0 g/dL 31.4 RDW-CV 11.5 - 15.0 % 14.0 Platelet Count 150 - 400 k/uL 121 (L) MPV 9.0 - 12.7 fL 10.2 Absolute nRBC <0.01 k/uL <0.01 Glucose 74 - 99 mg/dL 87 BUN 7 - 21 mg/dL 25 (H) Creatinine 0.58 - 0.96 mg/dL 2.04 (H) Sodium 136 - 144 mmol/L 142 Potassium 3.7 - 5.1 mmol/L 4.5 Chloride 97 - 105 mmol/L 115 (H) CO2 22 - 30 mmol/L 18 (L) Anion Gap 9 - 18 mmol/L 9 Calcium 8.5 - 10.2 mg/dL 8.3 (L) eGFR >=60 mL/min/1.73m 33 (L) Folate >4.7 ng/mL 11.4 Magnesium 1.7 - 2.3 mg/dL 1.9 Vitamin B12 232 - 1,245 pg/mL 333 d Dimer <500 ng/mL FEU 610 (H) Vitamin D 25 Hydroxy 31.0 - 80.0 ng/mL 25.3 (L) Vitamin B6, Plasma 20.0 - 125.0 nmol/L 19.2 (L) Zinc 60 - 120 ug/dL 47 (L) Copper 80 - 155 ug/dL 87 Free T4 0.9 - 1.7 ng/dL 0.9 Legend: (L) Low (H) High Record Review: [facility] / Outside records reviewed. PAST MEDICAL HISTORY Diagnosis Date Alcohol abuse [...] HISTORY Procedure Laterality Date SECTION HX 02/24/2016 COLONOSCOPY SCREENING 2022 HERPES 1 & 2, IGB+ 2011 NEXPLANON INSERTION Left 04/20/2023 Placed in office PAST SURGICAL HISTORY OF kidney surgery PAST SURGICAL HISTORY OF rectal PAST SURGICAL HISTORY OF 06/09/2009 Left Supraclavicular Lymphnode Excision VSD CLOSURE Allergies: ALLERGIES Allergen Reactions Cats Shortness of Breath Droperidol Anaphylaxis Laxative Pill GI Upset Medications: metoclopramide HCl (REGLAN) 10 mg tablet Take 10 mg by mouth every 6 hours as needed. hydrOXYzine HCl (ATARAX) 50 mg tablet 1 tablet Orally Four times a day pantoprazole DR (PROTONIX) 20 mg tablet Take 1 tablet by mouth daily before breakfast. Take on empty stomach, 1/2 hr before meal. ondansetron orally disintegrating (ZOFRAN ODT) 4 mg disintegrating tablet Take 1 tablet by mouth every 8 hours as needed for nausea/vomiting. Cholecalciferol, Vitamin D3, (VITAMIN D) 25 mcg (1,000 unit) cap Take 2 capsules by mouth once daily. levothyroxine (SYNTHROID) 50 mcg tablet Take 1 tablet by mouth daily at 6 am. melatonin 3 mg tablet Take 1 tablet by mouth daily at bedtime. traZODone (DESYREL) 50 mg tablet Take 0.5 tablets by mouth at bedtime as needed. zinc sulfate 220 mg (50 mg zinc) capsule Take 1 capsule by mouth once daily for [address] (DEPAKOTE) 500 mg EC tablet Take 500 mg by mouth two times a day. lurasidone (LATUDA) 60 mg tab tablet Take 60 mg by mouth daily with dinner. valACYclovir (VALTREX) 500 mg tablet Take 1 tablet by mouth once daily. ADVAIR DISKUS 500-50 mcg/dose dsdv Inhale 1 Puff as instructed two times a day. RINSE AND GARGLE MOUTH WITH WATER AFTER EACH USE. montelukast (SINGULAIR) 10 mg tablet Take 1 tablet by mouth daily at bedtime. etonogestrel (NEXPLANON) subdermal implant 68 mg 1 Each by SUBDERMAL route as directed. amitriptyline (ELAVIL) 10 mg tablet Take 10 mg by mouth daily at bedtime. VITAMIN B-12 500 mcg tab tab(s) Take 1 tablet by mouth once daily. ondansetron (ZOFRAN) 8 mg tablet Take 8 mg by mouth once daily. gabapentin (NEURONTIN) 100 mg capsule Take 2 capsules by mouth three times a day for 10 doses. (Patient not taking: Reported on 11/12/2023) gabapentin (NEURONTIN) 100 mg capsule Take 2 capsules by mouth one time only for 1 dose. gabapentin (NEURONTIN) 100 mg capsule Take 1 capsule by mouth three times a day for 12 doses. Do not start before September 16, 2023. miconazole (MONISTAT 7) 2 % vaginal cream Use 1 Applicator vaginally daily at bedtime. triamcinolone acetonide (KENALOG) 0.1 % ointment Apply to affected area two times a day. For 10-14 days vitamin A and D ointment Apply to affected area as needed. SUMAtriptan (IMITREX) 100 mg tablet Take 1 tablet (100 mg) by mouth as needed for migraine headache(see administration instructions). May repeat dose after 2 hours if needed. Maximum daily dose is 200 mg per day. No more than 10 doses in a month. rimegepant (NURTEC ODT) 75 mg disintegrating tablet Take 1 tablet by mouth once daily as needed. (Patient not taking: Reported on 11/12/2023) VITAMIN D-3 50 mcg (2,000 unit) cap Take 1 capsule by mouth once daily. FAMILY HISTORY Problem Relation Age of Onset Hypertension Mother other (depresssion) Mother No Known Problems Father Lung Cancer Maternal Grandfather other (ulcerative colitis) Paternal Grandmother Diabetes Maternal Aunt Employer And Job Title: None on file Years Of Education Completed: 12 years Marital Status: with 1 child Social History Tobacco Use Smoking status: Every Day Packs/day: 0.50 Years: 0.70 Additional pack years: 0.00 Total pack years: 0.35 Types: Cigarettes Smokeless tobacco: Never Vaping Use Vaping Use: Former Substances: Nicotine, Flavoring Substance Use Topics Alcohol use: Not Currently Alcohol/week: 1.0 standard drink of alcohol Types: 1 Cans of beer per week Drug use: Yes Types: Marijuana Comment: used heroin, crack, marijuana, meth in past. Last used heroin and crack November 12, 2021 Review of Systems: Review of Systems Constitutional: Positive for activity change, appetite change, chills, fatigue and unexpected weight change. HENT: Positive for voice change. Respiratory: Positive for chest tightness and shortness of breath. Cardiovascular: Positive for palpitations. Gastrointestinal: Positive for abdominal distention, abdominal pain, anal bleeding, blood in stool,constipation, diarrhea, nausea, rectal pain and vomiting. Gas All other systems reviewed and are negative. Are you taking any blood thinners? No Physical Examination: Pulse 63 Ht 5' 9 (1.75m) Wt 133 lb (60.3kg) LMP 04/15/2023 BMI 19.63 kg/(m^2). Physical Exam Constitutional: Appearance: Normal appearance. She is normal weight. HENT: Head: Normocephalic and atraumatic. Eyes: General: No scleral icterus. Extraocular Movements: Extraocular movements intact. Conjunctiva/sclera: Conjunctivae normal. Pupils: Pupils are equal, round, and reactive to light. Cardiovascular: Rate and Rhythm: Normal rate and regular rhythm. Pulses: Normal pulses. Heart sounds: Normal heart sounds. Pulmonary: Effort: Pulmonary effort is normal. Breath sounds: Normal breath sounds. Abdominal: General: Abdomen is flat. Bowel sounds are normal. Palpations: Abdomen is soft. Tenderness: There is abdominal tenderness (generalized discomfort to palpation). Musculoskeletal: General: Normal range of motion. Cervical back: Normal range of motion and neck supple. Skin: General: Skin is warm and dry. Coloration: Skin is not jaundiced. Neurological: General: No focal deficit present. Mental Status: She is alert and oriented to person, place, and time. Psychiatric: Mood and Affect: Mood normal. Behavior: Behavior normal. Thought Content: Thought content normal. Judgment: Judgment normal. Assessment/Plan (R11.12) Projectile vomiting with nausea (primary encounter diagnosis) (R68.81) Early satiety (R63.4) Abnormal weight loss (R19.8) Alternating constipation and diarrhea (K62.5) Rectal bleeding 1. Projectile vomiting with nausea -- Patient with vomiting and nausea for the last year but worsening in the last month. Unsure of triggers to this. -- Will Refill Zofran, Reglan as this is helping. -- Will check Celiac panel, lipase -- EGD in 2022 normal per patient -- Plan for GES r/o gastroparesis - NM GASTRIC EMPTYING SOLID; Future - CELIAC SCREEN WITH REFLEX; Future - ondansetron (ZOFRAN) 8 mg tablet; Take 1 tablet by mouth once daily. Dispense: 60 tablet; Refill:2 - metoclopramide HCl (REGLAN) 5 mg tablet; Take 1 tablet by mouth four times daily. Dispense: 120 tablet; Refill: 1 2. Early satiety -- Notes early satiety and 30 lb weight loss -- Will Refill Zofran, Reglan as this is helping. -- Will check Celiac panel, lipase -- EGD in 2022 normal per patient -- Plan for GES r/o gastroparesis - NM GASTRIC EMPTYING SOLID; Future - CELIAC SCREEN WITH REFLEX; Future - ondansetron (ZOFRAN) 8 mg tablet; Take 1 tablet by mouth once daily. Dispense: 60 tablet; Refill:2 - metoclopramide HCl (REGLAN) 5 mg tablet; Take 1 tablet by mouth four times daily. Dispense: 120 tablet; Refill: 1 3. Abnormal weight loss -- Notes early satiety and 30 lb weight loss -- Will Refill Zoan Reglan as this is helping. -- Will check Celiac panel, lipase -- EGD in 2022 normal per patient -- Plan for GES r/o gastroparesis - NM GASTRIC EMPTYING SOLID; Future - CELIAC SCREEN WITH REFLEX; Future 4. Alternating constipation and diarrhea -- Patient with alternating bowels and rectal bleeding. Does admit to straining frequently. -- Will check celiac panel, lipase -- Will check pancreatic elastase, fecal fat, calprotectin -- Does have hx of colon polyps, last scope was in 2022. - PANC ELASTASE, FECAL - FAT, FECAL QUAL - CALPROTECTIN,FECAL - LIPASE; Future - CELIAC SCREEN WITH REFLEX; Future 5. Rectal bleeding -- Patient with alternating bowels and rectal bleeding. Does admit to straining frequently. -- Will check celiac panel, lipase -- Will check pancreatic elastase, fecal fat, calprotectin -- Does have hx of colon polyps, last scope was in 2022. - PANC ELASTASE, FECAL - FAT, FECAL QUAL - CALPROTECTIN,FECAL - LIPASE; Future - CELIAC SCREEN WITH REFLEX; Future Follow up in office PRN. Recommended to please call office/go to ER if fever, chills, chest pain, SOB, diarrhea, nausea, emesis, worsening abdominal pain, dehydration occurs I spent a total of 20 minutes on the date of the service which included preparing to see the patient, [id number] patient care, completing clinical documentation, obtaining and/or reviewing separately obtained history, performing a medically appropriate examination, counseling and educating the pat ient/family/caregiver, and ordering medications, tests, or procedures. Glory Chirinos PA-C January 03, 2024 2:56 PM documented in this encounterCommunity [facility]05-[facility] History of Present illness Narrative* Thaddeus Shell APRN.AIR TRANSPORTATION PROVIDER - 11/23/2023 2:56 PM EDT Subjective Patient came in with complaints of abdominal nausea and pain for a year. Patient says she has been projectile vomiting for 6 months. Patient does currently have fast food with her.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 any of this, I would simply discharge her with medication prescriptions, hemoglobin and so given all of this, she is medically cleared for psychiatric evaluation. Lab Data Attestation: I reviewed the patient's lab results. Labs: Laboratory Results - last 24 hr 08/03/23 08/03/23 09:24 11:21 WBC 10.4 RBC 4.48 Hgb 12.8 Hct 37.7 MCV 84.2 MCH 28.6 MCHC 34.0 RDW Std Deviation 41.5 RDW Coeff of Maki 13.4 Plt Count 209 MPV 11.0 Immature Gran % (Auto) 0.600 Neut % (Auto) 68.8 Lymph % (Auto) 22.3 Polk % (Auto) 7.8 Eos % (Auto) 0.1 Baso % (Auto) 0.4 Absolute Neuts (auto) 7.2 Absolute Lymphs (auto) 2.32 Nucleated RBC % 0 Sodium 141 Potassium 3.0 L Chloride 112 H Carbon Dioxide 20.0 L Anion Gap 9 BUN 31 H Creatinine 3.03 H Estim Creat Clear Calc 24.11 Est GFR (MDRD) Af Amer 23 L Est GFR (MDRD) Non-Af 19 L BUN/Creatinine Ratio 10.2 Glucose 103 Calcium 9.8 Total Bilirubin 0.40 AST 24 ALT 44 Alkaline Phosphatase 65 Total Protein 8.4 H Albumin 4.2 Globulin 4.2 Albumin/Globulin Ratio 1.0 TSH 12.50 H Serum , Qual NEGATIVE Urine Opiates Screen NEGATIVE Urine Methadone Screen NEGATIVE Ur Barbiturates Screen NEGATIVE Ur Phencyclidine Scrn NEGATIVE Ur Amphetamines Screen NEGATIVE MDMA (Ecstasy) Screen NEGATIVE U Benzodiazepines Scrn NEGATIVE Urine Cocaine Screen NEGATIVE U Cannabinoids Screen POSITIVE H Ur Drug Screen Comment Ethyl Alcohol < 3.0 Radiography Diagnostic Testing: Clinical Impression(s) from Imaging Studies Brain CT 08/03/23 09:04 IMPRESSION: Normal unenhanced CT scan of the brain. Electronically Signed: Pedro Luis Merrill MD at 10:21 EST , Discharge Plan Triage Chief Complaint: Mental Health ED Provider: Torito Mensah Dx/Rx/DC Orders Clinical Impression: Acute psychosis, Accelerated hypertension, Hypothyroid, Noncompliance with medications, CKD (chronic kidney disease) stage 3, GFR 30-59 ml/min Prescriptions: No Action valacyclovir 500 mg tablet 500 mg PO DAILY buprenorphine-naloxone [Suboxone] 4-1 mg Film 1 film SUBLINGUAL BID Patient Comments: CALLED TO VERIFY SUBOXONE WITH [facility] [place]. PT JUST STARTED TREATMENT WITH [facility] AND NEW RX WAS FILLED AND CANCELED YESTERDAY FOR THE SUBOXONE 4-1 FILM BID. [facility] STATED PT DID NOT PICK-UP AND RX WAS CANCELED. losartan 25 mg Tablet 25 mg PO DAILY Qty: 0 0RF sertraline 25 mg tablet 25 mg PO DAILY Qty: 90 3RF aripiprazole 10 mg tablet 10 mg PO DAILY Qty: 30 2RF levothyroxine 150 mcg tablet 150 mcg PO DAILY Qty: 30 2RF Primary Care Provider: Veronika Ferrer Referrals: Veronika Ferrer MD [Primary Care Provider] - Disposition Disposition: Psychiatric Hospital or Unit What to do if you have Problems For any increased pain, shortness of breath, bleeding, nausea or vomiting, chestpain, or any unexpected problems, contact your Primary Care Provider. Call [facility] ([phone]) or report to the closest Emergency Room. Call 911 if necessary. 08/03/23 1406 <Electronically signed by Torito Mensah MD> Cosigner Signature (if applicable): CC: Dr. Veronika Ferrer MD ~ Signed [facility] Work Phone: [phone] Telephone encounter Note* Telephone Encounter - Dorie Oliveira MA - 07/24/2023 12:44 PM EST Patient notified via voicemail that rx was sent. Patient also informed that Dr. Judd doesn't have any sooner appts but if she needs one she can always see one of the [facility] [id number] Miscellaneous Notes* Telephone Encounter - Dorie Oliveira MA - 07/24/2023 12:44 PM EST Patient notified via voicemail that rx was sent. Patient also informed that Dr. Judd doesn't have any sooner appts but if she needs one she can always see one of the [facility] * Addendum Note - Solomon Judd DO - 07/22/2023 4:03 PM ESTAddended by: SOLOMON JUDD on: 07/22/2023 04:03 PM Modules accepted: Orders * Telephone Encounter - Solomon Judd DO - 07/22/2023 4:03 PM EST Rx sent for Zofran. I probably don't have any sooner appointments. * Telephone Encounter - Cary Negron RN - 07/21/2023 2:24 PM EST S Patient calling B ongoing chronic A Ongoing nausea. Hx of cancer and kidney failure. Patient has been referred to multiple specialist. Is having ongoing intermittent nausea. Is now out of zofran. Requesting sooner follow up with Dr Judd and refill of zofran. R Pharmacy and allergies verified. Nothing sooner on schedule. Advised to call back with new or worsening symptoms. Thank you. Would like rx today if possible. Reason for Disposition Nausea is a chronic symptom (recurrent or ongoing AND present > 4 weeks) Protocols used: Wyadnh-[id number] documented in [facility]01-27-2024 NoteAddended by: SOLOMON JUDD on: 07/22/2023 04:03 PM Modules accepted: [facility]01-27-2024 Note* Addendum Note - Solomon Judd DO - 07/22/2023 4:03 PM ESTAddended by: SOLOMON JUDD on: 07/22/2023 04:03 PM Modules accepted: Orders [facility] [id number] Note* Addendum Note - Solomon Judd DO - 07/22/2023 4:03 PM ESTAddended by: SOLOMON JUDD on: 07/22/2023 04:03 PM Modules accepted: Orders [facility] [id number] Telephone encounter Note* Telephone Encounter - Solomon Judd DO - 07/22/2023 4:03 PM EST Rx sent for Zofran. I probably don't have any sooner appointments. [id number] Miscellaneous Notes* Addendum Note - Solomon Judd DO - 07/22/2023 4:03 PM ESTAddended by: SOLOMON JUDD on: 07/22/2023 04:03 PM Modules accepted: Orders * Telephone Encounter - Solomon Judd DO - 07/22/2023 4:03 PM EST Rx sent for Zofran. I probably don't have any sooner appointments. * Telephone Encounter - Cary Negron RN - 07/21/2023 2:24 PM EST S Patient calling B ongoing chronic A Ongoing nausea. Hx of cancer and kidney failure. Patient has been referred to multiple specialist. Is having ongoing intermittent nausea. Is now out of zofran. Requesting sooner follow up with Dr Judd and refill of zofran. R Pharmacy and allergies verified. Nothing sooner on schedule. Advised to call back with new or worsening symptoms. Thank you. Would like rx today if possible. Reason for Disposition Nausea is a chronic symptom (recurrent or ongoing AND present > 4 weeks) Protocols used: Cpngia-LZAMC-MX documented in this encounterSHolzer Health [id number] Telephone encounter Note* Telephone Encounter - Cary Negron RN - 07/21/2023 2:24 PM EST S Patient calling B ongoing chronic A Ongoing nausea. Hx of cancer and kidney failure. Patient has been referred to multiple specialist. Is having ongoing intermittent nausea. Is now out of zofran. Requesting sooner follow up with Dr Judd and refill of zofran. R Pharmacy and allergies verified. Nothing sooner on schedule. Advised to call back with new or worsening symptoms. Thank you. Would like rx today if possible. Reason for Disposition Nausea is a chronic symptom (recurrent or ongoing AND present > 4 weeks) Protocols used: Uklant-ASFZV-VB [facility] [id number] Miscellaneous Notes* Telephone Encounter - Cary Negron RN - 07/21/2023 2:24 PM EST S Patient calling B ongoing chronic A Ongoing nausea. Hx of cancer and kidney failure. Patient has been referred to multiple specialist. Is having ongoing intermittent nausea. Is now out of zofran. Requesting sooner follow up with Dr Judd and refill of zofran. R Pharmacy and allergies verified. Nothing sooner on schedule. Advised to call back with new or worsening symptoms. Thank you. Would like rx today if possible. Reason for Disposition Nausea is a chronic symptom (recurrent or ongoing AND present > 4 weeks) Protocols used: Akdveh-IEFLO-LV documented in this [facility]12-14-2023 History of Present illness Narrative* Mayuri Mensah PA-C - 06/08/2023 9:04 AM EST Images from the original note were not included. Patient: Aissatou Betts PCP: Solomon Judd DO, CC: follow up HPI: Aissatou Betts 32 year old female former smoker and [...] is scheduled with Dr. Kirkpatrick, ENT in [place]. Has not noticed any relief with inhaled [...] mg) by mouth as needed for migraine headache(see administration instructions). May repeat dose after 2 [...] BP Cuff Size: Regular Adult) Pulse 96 Resp14 Wt 63 kg (139 lb) LMP 04/15/2023 [...] 23 (normal < 20). PFT, 06/08/2023 PFT [facility] 11/18/2022: FVC 3.19 L 71% postbronchodilator 3.38 [...] few low-attenuation areas; overall findings similar to priorstudy. No right-sided kidney seen in the right upper quadrant abdomen/retroperitoneum. IMPRESSION: No CT evidence of acute abnormality.4.5 mm right lung nodule. Labs Component Latest Ref Rng & Units 04/19/2023 [place] IgE <0.35 kU/l <0.35 [place] Class Class 0 Class 0 [id number] [place] Grass <0.35 kU/l 3.39 (H) Constantin Grass Class Class 0 Class 2 (A) Viri Grass IgE <0.35 kU/l 5.37 (H) Viri Grass Class Class 0 Class 3 (A) Short Ragweed IgE <0.35 kU/l <0.35 Short Ragweed Class Class 0 Class 0 [place] IgE <0.35 kU/l <0.35 [place] [...] necessary. Mayuri Mensah PA-C documented in this encounterCommunity Memorial Hospital12-12-2023 Miscellaneous Notes* Telephone Encounter - Nellie Perez LPN - 06/06/2023 2:33 PM EST Fax received from [facility] stating [facility] has been approved fron 06-06-23 to 12-02-23. Pt notified via [employer] message and auth scanned into chart. Nellie Perez LPN * Telephone Encounter - Nellie Perez LPN - 06/06/2023 12:03 PM EST TC to [facility] pharmacy to check on prior authorization status. Additional information given over the phone. Prior auth has been resent to get another decision. Await decision. Nellie Perez LPN * Telephone Encounter - Iris Clement LPN - 05/16/2023 3:47 PM EST Phone call placed detailed message left on patients identified voicemail. [facility] 05/09/2023, can take up to thirty days from receipt. Iris Clement LPN * Telephone Encounter - Shanda Conte LPN - 05/16/2023 3:32 PM EST Pt reports a migraine that started ~1 wk ago. Pt states she finished all of the sumatriptan she hadon hand & has not taken anything for [...] [facility] Please advise. Shanda Conte LPN documented in this encounterCommunity Memorial Hospital12-08-2023 Instructions* Patient Instructions* Sammy Thompson, ANATOLIY.AIR TRANSPORTATION PROVIDER - 06/02/2023 8:49 AM EST Images from [...] treated. A physician, nurse practitioner or physician client account assistant may treat with a short course [...] women if symptoms resolve. documented in this encounterCommunity Memorial Hospital12-08-2023 History of Present illness Narrative* Sammy Thompson APRN.CNP - 06/02/2023 8:37 AM EST Telemedicine Visit - Distance Health Virtual Visit Note Patient seen on [employer] Video Visit platform. Location of patient: [place] History of Present Illness Aissatou Betts is a 32 year old old female [...] mg) by mouth as needed for migraine headache(see administration instructions). May repeat dose after 2 [...] patient adverse to being seen in person orgoing anywhere for additional care at this point. [...] up - All questions answered Sammy Thompson APRN.AIR TRANSPORTATION PROVIDER I have communicated my name and active licensure. The patient's identity and physical location wereverified at the time of this visit. Either the patient or their legal customer service representative teacher has been informed of the risks and benefits of -- and alternatives to -- treatment through a remote evaluation andconsents to proceed with the evaluation remotely. If you let us know who your primary care provider is, we will send them a notification of today s visit through our electronic medical records system. Since not all providers have access to our notifications, we strongly encourage you to share the following record of today s visit with your primarycare provider at your next visit. This will help in providing you the best care. If you do not have an established Primary Care physician and would like to continue care with a [facility] Primary Care physician, please ask your provider to place a Establish PrimaryCare order. Use [employer] to manage your care, wherever you are, 16/01, on your mobile device or computer. [facility] connects you to [employer] so you can access all your health information in one place and also schedule and request virtual appointments with primary care providers. documented in this encounterCommunity Memorial Hospital12-06-2023 Miscellaneous Notes* Telephone Encounter - Sravanthi Thorne RN - 05/31/2023 1:30 PM EST S: [facility] Urinary urgency/frequency, also feels anxiety/hyperactive B: Per nurse triage ticket created by PALS A: Patient disconnected prior to speaking with nurse. No answer upon return call to patient. R: Left voice message for patient to call the office if assistance is still needed. Reason for Disposition Message left on identified voicemail Protocols used: No Contact or Duplicate Contact [id number] documented in this encounterSHolzer Health [id number] Telephone encounter Note* Telephone Encounter - Sravanthi Thorne RN - 05/31/2023 1:30 PM EST S: Patient called the [facility] Urinary urgency/frequency, also feels anxiety/hyperactive B: Per nurse triage ticket created by PALS A: Patient disconnected prior to speaking with nurse. No answer upon return call to patient. R: Left voice message for patient to call the office if assistance is still needed. Reason for Disposition Message left on identified voicemail Protocols used: No Contact or Duplicate Contact [id number] [facility] [id number] Telephone encounter Note* Telephone Encounter - Christ Alejandre - 05/31/2023 11:13 AM EST Pt states this medication was previously stopped [...] doctor or facility: N/A Ordering provider: Dr. Judd Date of last office visit: 03/03/23 Date of next office visit: 09/01/23 Date of last refill: (see medication tab): 03/03/23 Updated/Validated preferred pharmacy: Yes- [facility] [place], [place] - [address] Patient instructed to contact the pharmacy prior to picking up the medication: Yes [facility] [id number] Miscellaneous Notes* Telephone Encounter - Christ Alejandre - 05/31/2023 11:13 AM EST Pt states this medication was previously stopped [...] doctor or facility: N/A Ordering provider: Dr. Judd Date of last office visit: 03/03/23 Date of next office visit: 09/01/23 Date of last refill: (see medication tab): 03/03/23 Updated/Validated preferred pharmacy: Yes- [facility] - [place], [place] - [address] Patient instructed to contact the pharmacy prior to picking up the medication: Yes documented in this [facility]12-01-2023 Miscellaneous Notes* Telephone Encounter - Nellie Perez LPN - 05/26/2023 3:19 PM EST Pt calls in wanting to try CBD oil. Pt is in recovery and is in a great deal of pain. Please advise. Nellie Perez LPN documented in this encounterCommunity [facility] Hospital12-01-2023 Telephone encounter Note * Telephone Encounter - Rochelle Lorenzo MA - 05/26/2023 3:06 PM EST No forms have been seen yet will check on providers desk [facility] [id number] Miscellaneous Notes* Telephone Encounter - Rochelle Lorenzo MA - 05/26/2023 3:06 PM EST No forms have been seen yet will check on providers desk * Telephone Encounter - Jessica Smith - 05/26/2023 2:27 PM EST Name of caller: Aissatou Contact phone number: [phone] Relationship to Patient: patient Provider: Dr. Judd Practice: [facility] Chief Complaint/Reason for Call: Pt calling back regarding status of paperwork, advise per previousTE Fax# needed. Pt provided , please advise. Thank you. Best time of day caller can be reached: Any Patient advised that office/PCP has 24-48 business hours to return their call: No * Telephone Encounter - Prateek Andrade MA - 05/24/2023 4:45 PM EST Patient read [employer] message with no response. * Telephone Encounter - Rochelle Lorenzo MA - 05/23/2023 8:16 AM EST Sent patient a PingTankt message for the fax number * Telephone Encounter - Solomonalvaro Judd DO - 05/23/2023 8:06 AM EST It looks like she is applying for disability. There is no form to fill out, but they need records from June 26, 2022 until now. Please send all our office notes from that time and her labs from February. Records from other doctors need to be sent by them. * Telephone Encounter - Tracy Steele - 05/22/2023 9:14 AM EST Name of caller: Aissatou Contact phone number: [phone] Relationship to Patient: patient Provider: Dr Judd Practice: [facility] Chief Complaint/Reason for Call: [...] return their call: Yes documented in this [facility]12-01-[facility] Telephone encounter Note* Telephone Encounter - Jessica R - 05/26/2023 2:27 PM EST Name of caller: Aissatou Contact phone number: [phone] Relationship to Patient: patient Provider: Dr. Judd Practice: [facility] Chief Complaint/Reason for Call: Pt calling back regarding status of paperwork, advise per previousTE Fax# needed. Pt provided , please advise. Thank you. Best time of day caller can be reached: Any Patient advised that office/PCP has 24-48 business hours to return their call: No [place] [id number] Telephone encounter Note* Telephone Encounter - Prateek Andrade MA - 05/24/2023 4:45 PM EST Patient read [employer] message with no response. [id number] Miscellaneous Notes* Telephone Encounter - Juanita Andino RN - 05/24/2023 2:02 PM EST Patient calling to request refill of Sumatriptan until [facility] Prior Authorization approved. She is continuing to have migraine headaches. If agree, pended. Juanita Andino RN documented in this encounterCommunity [facility] Hospital11-28-2023 Telephone encounter Note * Telephone Encounter - Rochelle Lorenzo MA - 05/23/2023 8:16 AM EST Sent patient a [employer] message for the fax number [place] [phone] Telephone encounter Note* Telephone Encounter - Solomon Judd DO - 05/23/2023 8:06 AM EST It looks like she is applying for disability. There is no form to fill out, but they need records from June 26, 2022 until now. Please send all our office notes from that time and her labs from February. Records from other doctors need to be sent by them. [facility] [id number] Telephone encounter Note* Telephone Encounter - Tracy Steele - 05/22/2023 9:14 AM EST Name of caller: Aissatou Contact phone number: [phone] Relationship to Patient: patient Provider: Dr Judd Practice: [facility] Chief Complaint/Reason for Call: [...] business hours to return their call: Yes [facility] [id number] Miscellaneous Notes* Telephone Encounter - Nellie Perez LPN - 05/17/2023 7:22 AM EST See TE dated 05/16/23. Nellie Perez LPN * Telephone Encounter - Nellie Perez LPN - 05/09/2023 7:24 AM EST Prior auth started for patients Nurtec script via covermymeds. Await decision. Nellie Perez LPN documented in this encounterCommunity [facility] Hospital10-27-2023 Miscellaneous Notes* Telephone Encounter - Aneta Wall MD - 04/21/2023 3:55 PM EDT Spoke with patient directly regarding results of her chest CT. She has no evidence of fibrosis fromher previous mantle radiation but incidental note of a 4 mm nodule right lower lobe nodule. Patientis very anxious due to her past history of cancer. Assured her that this likely represents granulomatous disease and would recommend repeat CT of the chest in 1 year. documented in this encounterCommunity Memorial Hospital10-26-2023 Miscellaneous Notes* Telephone Encounter - DEEP Paul Laurie - 04/20/2023 4:18 PM EDT Images from the original note were not included. Aneta Wall MD Sent in Advair script instead * Telephone Encounter - DEEP Paul Laurie - 04/20/2023 2:47 PM EDT Received PA request from Jeaneth Buckner for Albino Durham. Covered products : Advair AnoroEllipta Dulera Stiolto Respimat Please review and advise. Eleonora Paul MA documented in this encounterCommunity Memorial Hospital10-26-2023 History of Present illness Narrative* Aicha Rdz RT(R) - 04/20/2023 1:00 PM EDT Radiology Service Progress Note PATIENT NAME: Aissatou Betts DATE OF SERVICE: April 20, 2023 TIME: 1:51 PM PATIENT IDENTITY VERIFICATION COMPLETED USING TWO (2) IDENTIFIERS: Name and Date of confirmedby patient verbally. FALL SCREENING: Has the patient [...] 20, 2023 1:51 PM documented in this encounterCommunity Memorial Hospital10-25-2023 History of Present illness Narrative* Aneta Wall MD - 04/19/2023 9:00 AM EDT Images from the original note were not included. . [facility] Note Patient name: Aissatou Betts PCP: Solomon Judd DO, DO Referring Physician: Same Consultation requested by Dr. Judd for an opinion regarding asthma. My final recommendations will be communicated back to the requesting physician by way of shared Medical record or letter to requesting physician via US mail. CC: SOB/asthma HPI: Aissatou Betts 32 year old female former cigarette smoker and vaping with PMH significant for polysubstance abuse (in recovery, no IV drugs), asthma, HTN, Hodgkin's lymphoma s/p [id number] (Mantle radiation), Vater syndrome (congenital single kidney, VSD), radiation induced hypothyroidism, bipolar 1 being referred for SOB in face of asthma. Diagnosed with asthma at the time of herHodgkin's diagnosis. Previously on as needed albuterol. Several [...] (1) Total: less than 15 DATA: PFT [facility] 11/18/[facility]: FVC 3.19 L 71% postbronchodilator 3.38 [...] which shows increased perihilar and basilar interstitial markings,R > L Recent Echo EF 55%, normal [...] mg) by mouth as needed for migraine headache(see administration instructions). May repeat dose after 2 [...] every 6 hours as needed. uses PRN forasthma. Pt. unsure of dose (Patient not taking: [...] multiple regions -Should have oncology follow-up Aneta Wall MD [facility] documented in this encounterCommunity Memorial Hospital10-17-2023 History of Present illness Narrative* Janet Neves RT(R) - 04/11/2023 8:00 AM EDT Radiology Service Progress Note PATIENT NAME: Aissatou Betts DATE OF SERVICE: April 11, 2023 TIME: 8:20 AM PATIENT IDENTITY VERIFICATION COMPLETED USING TWO (2) IDENTIFIERS: Name and Date of confirmedby patient verbally. FALL SCREENING: Has the patient had 2 falls in the last year or 1 fall with injury or currently using an Ambulatory Assistive Device (Walker, Cane, Wheelchair, Crutches, etc.)? No PATIENT GENDER DATA: Female. status: : No status: NO. PATIENT RELEVANT IMPLANT DATA REVIEWED: Yes RADIOLOGY DEPARTMENT: MR; Exam(s) Completed: Head: Routine Brain PERIPHERAL IV DATA: Not applicable SIGNED BY: RT Brenda(Marcell) April 11, 2023 8:20 AM documented in this encounterCommunity Memorial Hospital10-12-2023 Miscellaneous Notes* Telephone Encounter - Kendal Sexton RN - 04/06/2023 5:11 PM EDT New Botox referral submitted to pharmacy. SYLVIA DyerN, RN documented in this encounterCommunity Memorial Hospital10-11-2023 NotePt sent my chart message regarding referral.[facility]10-11-[facility] Instructions* Patient Instructions* Bethany Gil PA-C - 04/05/2023 7:58 AM [...] medication to start working well and 2-3 monthsat the appropriate dose before deciding if it will be useful or not. If it is not helping at all bythis time, then we will discuss other medications to try. Supplements may take 3-6 months until yousee full effect. Natural supplements: Magnesium Oxide 500 [...] supplementation of 400-750 mg. Three trials found 40-90%average headache reduction when used as a preventative. Magnesium also demonstrated the benefit in menstrually related migraine. Magnesium is part of the messenger system in the serotonin cascade andit is a good muscle relaxant. It is [...] side effects, although this could be helpful forthose with constipation. Magnesium oxide is also well [...] trials showed significant improvement in over half ofmigraine sufferers. The supplement is found in bread, cereal, milk, meat, and poultry. Most Americans get more riboflavin than the recommended daily allowance, however riboflavin deficiency is not necessary for the supplements to help prevent headache. Feverfew: Feverfew is a common garden herb [place] to [place] and popular in [place] [...] You will know if you are food sensitiveif you get a headache consistently 20 minutes [...] pepperoni, Pickled salas Pods of broad valdez (Guamanian beans, Korean pea pods, Romansh (roel) beans, jones and navy beans Ripe avocado, ripe banana Yeast extracts or active yeast preparations such as Yu's or Natalie's (commercial bakes goodsare permitted) Tomato based foods, pizza (lasagna, etc.) [...] into a normally lit room hurts. Consider FL- 41 tint lenses, which reduce the most irritating wavelengths without blocking too muchlight. These can be obtained at Ventealaproprietes.Phi Optics or Rising Tide Innovations.Phi Optics Foods: see list above. 2. Limit use of acute treatments (akzf-oyk-chkunnq medications, triptans, etc.) to no more than [...] and quiet environment. Relax and reduce stress. Rnwzbxz9Cyobu is a free paola that can instruct you on some simple relaxtionand breathing techniques. Http://mobiDEOS is a free website that provides teaching [...] the need for medications. Counseling for pain ma nagement, where patients learn to function and ignore/minimize their pain, seems to work very well. 9. Recommend changing family's attention and focus away from patient's headaches. Instead, emphasize daily activities. If first question of day is 'How are your headaches/Do you have a headache today?', then patient will constantly think about headaches, thus making them worse. Goal is to re-directattention away from headaches, toward daily activities and other distractions. 10. Helpful Websites: www.AmericanHeadacheSociety.org www.migrainetrust.org www.headaches.org www.migraine.org.uk www.achenet.org 11. HEADACHE EXPECTATIONS: There are many types of headaches, and only a rare few in which complete relief can be expected. Ingeneral, there is no cure for headache, especially migraine based headaches. There is nothing available that completely prevents headaches from occurring, breaking through, or having periodic flare-ups and fluctuations. Regardless of what you are using on a daily basis for prevention, episodic heada ches should still be expected, and periods where frequency may escalate and fluctuate are unavoidable. There is no quick fix for most headaches. Furthermore, the longer you have had high frequency headaches (such as chronic daily headache), the longer it will likely take to expect any improvement. In fact, some people will never improve, regardless of how many medications or other treatments we try.Our treatment strategy is to evaluate for possible causes of your headache, although testing is usually always normal, even in cases of daily continuous headaches for years. Most types of headache such as migraine are electrical brain disorders (similar to how epilepsy is an electrical brain disorders). Therefore, there is no testing that will reveal this dysfunctional electrical circuitry suchon MRI, or other testing. We try to [...] We can not predict if or when exac tly you will respond to a treatment that we provide. Preventive headache medications take 4-6 weeks to start working, and 2-3 months to see full effect,assuming you reach an effective dose. Therefore, calling or messaging frequently because you have aheadache flare prior to the 3 month kaycee is unlikely to change anything, and unfortunately there isnothing available that will expedite this, so please try to avoid this. Our recommendation will gene rally be to give it adequate time first. [...] and will be handling your phone calls, Blaast Messages and inquiries, if any. Unless explicitly told otherwise at the time of your office visit, your study results and ensuing treatment plans will be released via Blaast and discussed during your follow-up appointment. Chinac.comhart: Please ask the schedulers to give you an activation code. The main way of communication isby Chinac.comhart rather than phone lines, so if you have not signed up, please do so. Blaast is also theway that you can review your labs and testing. We are not able to contact everyone to tell them results are normal. If you do not hear back from us regarding testing you have had, it should be considered normal or within normal range. If you have any questions about the results, you are free to message us. Casual Stepst is meant for simple questions regarding medications, possible side effects, or other simplestraight forward questions in limited sentences, rather than multiple paragraphs of discussion. Blaast is not meant for, or efficient for these complex questions, extensive questions, extensive medication adjustments, complex new symptoms or concerns. These issues beyond simple questions require afollow up visit with myself, one of our physician assistants, nurse practitioners, or a Virtual Visit via computer or smart phone, as detailed further down. Refills: Please pay attention to when your refills will need to be renewed. Due to the volume of phone callsdaily, this could potentially take a few days, [...] do not comment on most testing on [employer] in a message or commentary unless there [...] center for syncope, autonomic dysfunction, general neurology, headachecare, neuromuscular disease, and other related conditions, seeing patients from across the world, we do not have the resource of time or staffing to address inquiries for accommodations. As such, we do not provide or complete requests for work accommodations, FMLA, disability, or other such forms. We recommend seeking guidance through your primary care provider for these requests. We are happy toprovide our office notes from your visits and other tests or evaluations performed through our clinic, which can be made available upon request to assist you with this process. documented in this encounterCommunity Memorial Hospital10-11-2023 History of Present illness Narrative* Bethany Gil PA-C - 04/05/2023 7:37 AM EDT Images from the original note were not included. Neurology Outpatient Clinic Date: April 05, 2023 Patient Name: Aissatou Betts Referring physician: No referring provider defined for this encounter. Primary physician: Solomon Judd DO [address] [place] [phone] Reason for Evaluation: Headaches Subjective HPI Aissatou Betts is a 32 year old right-handed female who presents for evaluation of headaches. Dr.Andrea Alvaro Judd DO, DO is the PCP. Chart review: Currently on Elavil and imitrex. Has history Neuropathy and orthostatic HOTN, non hodgkin at age 18. Also noted SOB sent to pulmonology. Also has has CKD stage three and hypothyroidism.[facility] and not available. Patient presents for evaluation of headache. Patient notes that she has had headaches since she wasa child, but they have worsened over the last 3 months or so. Unknown etiology for this acute exacerbation, but states that she is under a lot of stress. Notes that prior to the last 3 months she washaving about 1 headache a month that was well relieved with Imitrex. Notes that she is now having adaily headache, headaches typically start in the late [...] photophobia, phonophobia, osmophobia, nausea, vomiting, blurred vision, neckpain. Quality:dull and throbbing. Then squeezing Worse with [...] every 6 hours as needed. uses PRN forasthma. Pt. unsure of dose (Patient not taking: [...] mg) by mouth as needed for migraine headache(see administration instructions). May repeat dose after 2 [...] HPI. Otherwise a 10-point ROS was completed andwas negative. ALLERGIES Allergen Reactions Cats Shortness of [...] bilaterally Coordination: finger-to- nose-finger intact bilaterally and xkoq-su-rfyf intact bilaterally. Gait: Patient's gait is normal, can heel and toe walk and can tandem walk Romberg: Negative DATA REVIEWED Actual films/image/tracing reviewed and summarized as follows: None Old records reviewed and summarized as follows: [facility] Assessment/Plan Assessment & Plan: Aissatou Betts is a 32 year old right-handed female [...] is currently in recovery from substance use disorderand is not currently using, has history of heroin and crack cocaine use. Patient likely suffering fr om exacerbation of migraines, but due to patient's history of lymphoma, new daily persistent headache presentation, and sustained rightward nystagmus on exam, will obtain MRI of the brain. We will obtain without contrast due to patient's kidney disease. Regarding treatment of patient's headaches, patient is currently taking Elavil, but states that sheonly takes half a tablet because it is so sedating. Has an appointment with psychiatry next week todiscuss psychiatric meds, will not make adjustments to Elavil at this time. Did discuss supplementsand patient is amenable to try supplements for [...] over the last year, not necessarily associate withher headache. Encouraged her to see an eye [...] provided with radiology test); MRI Brain Inject, intravenously,once for 1 dose.No IV access, insert saline [...] which included preparing to see the patient, kzls-ep-nffp patient care, completing clinical documentation, obtaining and/or reviewing separately obtained history, performing a medically appropriate examination, counseling and educating the pat ient/family/caregiver, and ordering medications, tests, or procedures. Bethany Gil PA-C [facility] We will get a precert [...] conjunction with CGRP preventive medications. Medication overuse, alternatediagnosis, confounding psychiatric or social stresses have been ruled out as the cause of headaches. Severity: moderate to severe Quality: throbbing Migraine days a month: daily Headache days a month: daily Total Headache days a month: daily Headache free days a month: 0 The following preventative medications have been tried for at least three months without benefit ordiscontinued due to side effects: Elavil Abilify Zoloft *Patient with CKD and GFR of 36, will refrain from using topiramate or gabapentin as they are renally excreted, will avoid propranolol as she has history of asthma. The following abortive medications have been tried but require high frequency use which can lead toMedication Overuse Headache: Imitrex Tylenol *Patient cannot use [...] Probability Score: 8 (Sleep study not recommended) * Nellie Perez LPN - 04/05/2023 7:25 AM EDT 04/03/2023 PROMIS Global Health Physical Health Summary [...] (Sleep study not recommended) documented in this encounterCommunity Memorial Hospital10-10-2023 NoteLeft another voicemail message for pt regarding referral.[facility]10-09-2023 Miscellaneous Notes* Telephone Encounter - Mayuri Rico LPCC - 04/03/2023 1:48 PM EDT Behavioral Health Social Work Progress Note Patient identified for [facility] from: PCP Reason for referral: Resources Behavioral Health Resources: Psychology - talk therapy, Psychiatry med management [facility] encounter type: Telephone Encounter Patient Discharged?: No Patient reported that caregiver was able to meet their needs today?: N/A Phone call placed today that went to voicemail. Left my contact information and brief nature of call. Initial outreach also completed via Blaast sending list of in network providers with insurance. LORI Armstrong-S April 03, 2023 documented in this encounterCommunity Memorial Hospital10-09-2023 Instructions* Patient Instructions* Mabel Oshea APRN.CATY - 04/03/2023 10:12 AM EDT Here are some links for wonderful Providers here in the community and surrounding areas. Do not hesitate to contact their offices, many are offering virtual visits during this time. 6-030-5-GXWV8EDGW - [place] Maternal Mental Health Hotline If you are in suicidal crisis, please call or text 4-758-835-TALK ( ) or visit the National Suicide Prevention Lifeline website. mchb.hrsa.gov [facility] Psychology, Psychiatry, Counseling Connect with therapist/ can do virtual visits [phone] Referral to the [facility] To schedule an appointment, please call the Center for [facility] Appointment Line: [phone] option 1 [facility] [place] [address] [place] [address] [facility] [address] [place] [address] [facility] [address] [place] [address] [facility] [address] [place] [address] Deangelo Anderson MD [address] [place], [place] [address] [facility] [address] [facility], [address] [place] [address] [facility] [address] [place] [address] [facility] [place] / [place] [phone]/ [phone] Elaine Chace [address] [facility] [phone] [facility] [place] / [place] [phone] Behavioral health services of [facility] [address] [place] [address]/ [place] [phone] Jake Bedolla, SIDNEY, CLC [facility] Workshops, telehealth and at home visits. [phone] [employer] counseling center 20 locations [facility], [place], [place], [place], [place], [place], [facility], [place], [place], [place], [place], [place], [place], [facility], [place], [place] ,[facility], [place], [place],[facility], [facility], [place], [facility], [place], [place] www.Evolucion Innovations [phone] Psychotherapy resources outside of [facility] are listed below [facility] Web: https://www.Fitocracy/ Support International Online Provider Directory https://Applied Genetics Technologies Corporation/ [facility] https://Mobile Accord/ [facility] Web: https://UpdateLogic/ Center [facility] Effective [facility] Web: https://IumeffectiveKinnekliving.Phi Optics/ LifeStance Web: https://Etelos.Phi Optics/location/state/[place]/ [facility] Web: https://www.[facility].org/ The Centers Web: https://proteonomix.BillMyParents/ Recovery Resources Mental health and substance abuse help Web: https://www.TiGenix & RESOURCES Support International Direct peer support and connection to professional resources Non-Emergency Helpline Phone: / Text: [phone] Web: https://www..net/ Online Provider Directory: https://Applied Genetics [employer] Corporation/ Online Support Meetings: https://www..net/get-help/zia-xcbbxs-jznyccf-meetings/ CARIE Baby and [employer] Web: https://wwwHera Therapeutics/ MotherToBaby Expert information on medication use during and Text: [phone] Web: https://Mformation Technologies.BillMyParents/ NATIONAL REGISTRY FOR PSYCHIATRIC MEDICATIONS Currently studying the safety of antidepressants, ADHD medications and atypical antipsychotics taken during TO PARTICIPATE CALL TOLL-FREE: Web: https://womensmentalhealth.org/research/pregnancyregistry/ Support Groups: [facility]- Follow on facebook Baby Bistro support group led by [facility] department Resilient Mamas - Support Group s.org The POEM support group [phone] Www.poemonline.org Follow on facebook - BRENDA solorzano Online support meetings PSI https://www..net/get-help/bbs-dmkret-sdhkyuf-meetings/ [facility] mommy and me virtual support group 11:30-1pm Support for mothers and new babies and toddlers [facility] childbirth education: Childbirth @cc.org or call [phone] CRISIS: CRISIS HOTLINE [phone], 911 or go to the nearest ER. [facility] [phone] / [facility] [phone] https://www.st. peter's health partnersrb.org Crisis text line text the word HOME to [phone] [facility] [address] silviano [address] [facility] [phone] www.BreconRidge Barbara Lazaro clinical counseling [address] [address] www.[employer] [phone] Holding space psychotherapy Teresita Rogers VEGETABLE LOADER MACHINE OPERATOR PRESSING MACHINE TENDER-S [address] [facility] www.Reciclata [phone]/ [place] [phone] They all offer virtual. All work with trauma Support groups Online support meetings [facility] https://www..net/get-help/vxk-ljeyrf-mcwrypa-meetings/ Here are the support groups they offer: Support of parents of 1 to 4 years old children POEM ( Outreach and Encouragement for Moms) offers free support for mothers experiencing depression, anxiety, and other mood and anxiety disorders. Masks are recommended but not required. No pre-registration required. Babies in arms welcome. meetings now take place on the and Monday of each month Location: [facility] [address] [place] [address] Room 122 (library room) 7-8:00 p.m. When you enter the [facility] parking lot off of [address] the entrance door closest to our meeting room is on the front of the building toward the right. For those who are more comfortable with a virtual platform, POEM offers online support group options several days of the week. To register for an online group or to find out more about POEM, website at: https://mhaohio.org/get-help/cjwlknlw-qlcjtw-bygqph/pomeño-services/ offer a confidential helpline: private Facebook group is called [facility] Here are the groups they offer: Traumatic childbirth resources: Http://pattch.org/ https://www.Gen4 EnergyliaNuConomymaria isabel.Phi [employer]ics/ documented in this [facility] History of Present illness Narrative* Mabel Oshea APRN.CNM - 04/03/2023 9:41 AM EDT Aissatou Betts is a 32 year old female who presents to discuss removal and reinsertion of Nexplanon. Stated it has been over 3 years since placement. She is having periods every couple of weeks. Currently on period now. Pleased with Nexplanon and would like a new one placed. Cancer (in remission)- [phone] Stage 4 Hodgkin lympohoma. She is 17 months sober and interested in counseling/possible medication evaluation. History of taking medications but not for a while. Reports was self medicating with drugs. 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 uses PRN forasthma. Pt. unsure of dose (Patient not taking: [...] PAP Mabel Oshea APRN.CNM documented in this encounterCommunity [facility]10-06-2023 NoteLeft voicemail for pt to call office. Referral was already faxed to [facility] fax # [phone] in feb. Is this correct office ? Or does it need sent somewhere else ?[facility]10-05-2023 NoteExternal referral already placed. We need to find out where she wants us to send it.[facility]09-21-2023 NoteGeneric external referral placed. [facility]09-20-2023 NoteCalled pt, informed pt Referrals placed for pulmonology and neurology - please fax to requested locations in message. For urology, we can send to any office in [place] - I don't know who is there. For behavioral health, she will need to call the number on her insurance card to find out where she can go. Referral is not required for mental health. Patient stated that the Behavioral health in [place] does need a referral or else the patient cannot schedule and appointment. Please advise.[facility]09-20-2023 NoteReferrals placed for pulmonology and neurology - please fax to requested locations in message. For urology, we can send to any office in [place] - I don't know who is there. For behavioral health, she will need to call the number on her insurance card to find out where she can go. Referral is not required for mental health.[facility]09-08-2023 History of Present illness Narrative* Solomon Judd, - 03/03/2023 11:30 AM EDT Images from the original note were not [...] emotional upset, occupational exposure, exercise, any activity [facility] [address] [place] [address] [address] [facility] [address] Dept: [phone] Dept Visit type: Established patient Reason for Visit: 6 Month Follow-up (Appt on Hypothyroidism, Migraine) and discuss ECHO Assessment and Plan 1. Moderate persistent asthma without complication - [facility] Pulmonary/Pulmonology She agrees to try Symbicort. Referral to pulm due to restrictive component and history of chemotherapy. 2. Acquired hypothyroidism - levothyroxine (Synthroid, Levoxyl) 150 MCG tablet; Take 1 tablet (150 mcg) by mouth every morning(before breakfast)., Starting Mon03/03/2023, Normal - TSH Labs [...] gradually worsening. Associated symptoms include headaches and neckpain. Pertinent negatives include no abdominal pain, chest pain, claudication, coryza, ear pain, fever, hemoptysis, leg pain, leg swelling, orthopnea, PND, rash, rhinorrhea, sore throat, sputum production, swollen glands, syncope or vomiting. The symptoms are aggravated by emotional upset, occupational exposure, exercise and any activity. PFT consistent with asthma in October. Symbicort called in but has not tried it yet - wanted to discussfurther. PFT also showed restriction. Has history of chemotherapy with Trey V regimen 2008-2009for Hodgkins lymphoma. CKD 3b - has not been to nephrology. Wants referred somewhere closer to [place] since she is staying with her mom. [...] after use to reduce aftertaste and incidence ofcandidiasis. Do not swallow. (Patient not taking: Reported [...] Anemia Anxiety Asthma Takes no medications Cancer ([facility]) ([facility]) Hodgkins (in remission) Chronic back pain Chronic kidney disease Enlarged right kidney, no left kidney Clotting disorder (CMS/HCC) (HCC) Deaf left ear Depression Drug abuse ([facility]) ([facility]) cocaine, marijuana, opiates Hypertension Infectious viral hepatitis Migraine Neck pain Opioid withdrawal ([facility]) 02/24/2016 Thyroid disease Social History Tobacco Use Smoking status: Former Packs/day: 0.00 Years: 5.00 Pack years: 0.00 Types: Cigarettes Quit date: 07/10/2022 Years since quittin.6 Smokeless tobacco: Never Substance Use Topics Alcohol use: Not Currently Past Surgical History: Procedure Laterality Date SECTION (HISTORICAL) 02/24/2016 SECTION, LOW TRANSVERSE COLONOSCOPY 01/15/2020 Dr. Rahman NECK SURGERY Left to remove cancer RECTAL SURGERY as a child UPPER GASTROINTESTINAL ENDOSCOPY 01/15/2020 Dr. Rahman Family History Problem Relation Name Age of [...] Data Reviewed and Summarized Labs: Imaging/Testing: Solomon Judd DO documented in this [facility]05-02-2023 History of Present illness Narrative* Solomon Judd DO - 10/25/2022 3:30 PM EDT Images from the original note were not included. [facility] [address] [facility] [address] Dept: [phone] Dept Visit type: Established patient Reason for Visit: ER Follow-up (From [facility] in [place] on 10/21/22 re: Chest Pain) Assessment and Plan 1. Orthostatic hypot[place] [facility] Advised increasing fluid and sodium intake. May end up needing medication. 2. Stage 3b chronic kidney disease (HCC) - External referral to Nephrology 3. Shortness of breath - Complete PFT pre and post bronchodilator - Transthoracic echocardiogram (TTE) complete with contrast, bubble, strain, and 3D PRN 4. Idiopathic peripheral neuropathy - [facility] 5. History of Hodgkin's lymphoma - External referral to Nephrology - [facility] - Transthoracic echocardiogram (TTE) complete with contrast, bubble, strain, and 3D PRN Needs workup for long-term effects of cancer treatment. Follow up for Next scheduled follow-up. Subjective HPI Here for ED follow up. She went to ED for chest pain, lightheadedness episodes. Testing was all normal including labs, EKG, CXR. She was treated for presumptive UTI and is still on Macrobid - culturecame back negative. Not having any urinary symptoms. She is still getting frequent lightheadedness and shortness of breath. She does not skip meals and feels she drinks enough water. History of Hodgkin lymphoma age 18. According to oncology notes from last visit she had in 2013, she was treated with [place] V regimen 05/2009-08/2009. 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 She was referred to nephrology but still hasn't been. She states she is ready to take her health more seriously. Seeing [facility] for counseling. Review of Systems Constitutional: [...] tablet 0 cholecalciferol (Vitamin D-3) 50 MCG (2000 UT) [...] Deaf left ear Depression Drug abuse (CMS/HCC) ([facility]) cocaine, marijuana, opiates Hypertension Infectious viral hepatitis Migraine Neck pain Opioid withdrawal (HCC) 02/24/2016 Thyroid disease Social History Tobacco Use Smoking status: Former Packs/day: 0.50 Years: 5.00 Pack years: 2.50 Types: Cigarettes Quit date: 07/10/2022 Years since quittin.2 Smokeless tobacco: Never Substance Use Topics Alcohol use: No Past Surgical History: Procedure Laterality Date SECTION (HISTORICAL) 02/24/2016 SECTION, LOW TRANSVERSE COLONOSCOPY 01/15/2020 Dr. Rahman NECK SURGERY Left to remove cancer RECTAL SURGERY as a child UPPER GASTROINTESTINAL ENDOSCOPY 01/15/2020 Dr. Rahman Family History Problem Relation Name Age of [...] Data Reviewed and Summarized Labs: Imaging/Testing: Solomon Judd DO documented in this [facility]05-02-2023 History of Present illness Narrative* Solomon Judd DO - 10/25/2022 3:30 PM EDT Images from the original note were not included. [facility] [address] [place] [address] Dept: [phone] Dept Visit type: Established patient Reason for Visit: ER Follow-up (From [facility] [place] on 10/21/22 re: Chest Pain) Assessment and Plan 1. Orthostatic hypotension - [facility] Advised increasing fluid and sodium intake. May end up needing medication. 2. Stage 3b chronic kidney disease (HCC) - External referral to Nephrology 3. Shortness of breath - Complete PFT pre and post bronchodilator - Transthoracic echocardiogram (TTE) complete with contrast, bubble, strain, and 3D PRN 4. Idiopathic peripheral neuropathy - [facility] 5. History of Hodgkin's lymphoma - External referral to Nephrology - [facility] - Transthoracic echocardiogram (TTE) complete with contrast, bubble, strain, and 3D PRN Needs workup for long-term effects of cancer treatment. Follow up for Next scheduled follow-up. Subjective HPI Here for ED follow up. She went to ED for chest pain, lightheadedness episodes. Testing was all normal including labs, EKG, CXR. She was treated for presumptive UTI and is still on Macrobid - culturecame back negative. Not having any urinary symptoms. She is still getting frequent lightheadedness and shortness of breath. She does not skip meals and feels she drinks enough water. History of Hodgkin lymphoma age 18. According to oncology notes from last visit she had in 2013, she was treated with [place] V regimen 05/2009-08/2009. 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 Clotting disorder (CMS/HCC) (HCC) Deaf left ear Depression Drug abuse ([facility]) ([facility]) cocaine, marijuana, opiates Hypertension Infectious viral hepatitis Migraine Neck pain Opioid withdrawal ([facility]) 02/24/2016 Thyroid disease Social History Tobacco Use Smoking status: Former Packs/day: 0.50 Years: 5.00 Pack years: 2.50 Types: Cigarettes Quit date: 07/10/2022 Years since quittin.2 Smokeless tobacco: Never Substance Use Topics Alcohol use: No Past Surgical History: Procedure Laterality Date SECTION (HISTORICAL) 02/24/2016 SECTION, LOW TRANSVERSE COLONOSCOPY 01/15/2020 Dr. Rahman NECK SURGERY Left to remove cancer RECTAL SURGERY as a child UPPER GASTROINTESTINAL ENDOSCOPY 01/15/2020 Dr. Rahman Family History Problem Relation Name Age of [...] Data Reviewed and Summarized Labs: Imaging/Testing: Solomon Judd DO documented in this [facility]04-29-2023 Telephone encounter Note* Telephone Encounter - Solomon Judd DO - 10/22/2022 10:08 PM EDT Went to ED and diagnosed with UTI. No cause of chest pain found. [facility] [id number] Miscellaneous Notes* Telephone Encounter - Solomon Judd DO - 10/22/2022 10:08 PM EDT Went to ED and diagnosed with UTI. No cause of chest pain found. * Telephone Encounter - June Hackett RN - 10/21/2022 9:09 AM EDT S: pt calling [facility] d/t palpitations, chest tightness B: Symptoms started 2-3 weeks A: pt states has had 2-3 weeks has had a couple of episodes where she gets a headache, tightness inher chest and feels like her heart is racing. States the current episode started last night. Statesfelt heart was racing, chest tightness, dizziness and was not able to stand up without support. At times felt as if she was going to pass out. Continues to have chest tightness, feels short of breathwhen talking. Pt took pulse and states is currently 84 and felt regular when taking it. States thatlast night her pulse did not feel regular. R: pt will have someone take her to either [facility] or [place]. . Pt advised to call back with worsening of symptoms, concern or questions. Pt verbalized understanding. Reason for Disposition Difficulty breathing Protocols used: Heart Rate and Heartbeat [id number]-GP documented in this [place] [id number] Telephone encounter Note* Telephone Encounter - June Hackett RN - 10/21/2022 9:09 AM EDT S: pt calling [facility] d/t palpitations, chest tightness B: Symptoms started 2-3 weeks A: pt states has had 2-3 weeks has had a couple of episodes where she gets a headache, tightness inher chest and feels like her heart is racing. States the current episode started last night. Statesfelt heart was racing, chest tightness, dizziness and was not able to stand up without support. At times felt as if she was going to pass out. Continues to have chest tightness, feels short of breathwhen talking. Pt took pulse and states is currently 84 and felt regular when taking it. States thatlast night her pulse did not feel regular. R: pt will have someone take her to either [facility] or [place]. . Pt advised to call back with worsening of symptoms, concern or questions. Pt verbalized understanding. Reason for Disposition Difficulty breathing Protocols used: Heart Rate and Heartbeat [id number] [facility] [id number] Miscellaneous Notes* Telephone Encounter - Bethany Cornelius LPN - 10/13/2022 3:54 PM EDT Patient was seen here once 05/26/2014. Was supposed to follow up in 6 months, never did. Patient advised to contact PCP with rash concerns and PCP can refer back if needed. Patient agreeable. Bethany Cornelius LPN * Telephone Encounter - Lindsay Martin Pss - 10/13/2022 12:46 PM EDT Patient called stating she has a rash/tiny red dots all over her body. She was last in the office 05/2014. She is requesting to speak to clinical. documented in this encounterCommunity [facility]-2023 History of Present illness Narrative* Regulo Pena, DESK REPORTER - AIR TRANSPORTATION PROVIDER - 10/13/2022 11:40 AM EDT Images from the original note were not included. [place] [address] [address] [facility] [address] [facility] [address] Dept: [phone] Dept Visit type: Established patient Reason for Visit: Rash (Rash all over body. Started on hands. Patches on knees and elbows. Denies changes in soaps and fragrances. Seen Dr. Judd 2 days ago for this but it [...] viral exanthem. Can use cool showers, cold compresses,trial hydrocortisone cream, 2nd gen anti-histamine for symptom relief. Provided reassurance. - Consider referral to Allergy/immunology, or Derm if symptoms do not improve by end of next week - Rapid strep is negative for GAS - AMB POC RAPID STREP A Follow up if symptoms worsen or fail to improve. Subjective HPI Aissatou Betts presents today with the c/c of rash [...] 02/24/2016 SECTION, LOW TRANSVERSE COLONOSCOPY 01/15/2020 Dr. Rahman NECK SURGERY Left to remove cancer RECTAL SURGERY as a child UPPER GASTROINTESTINAL ENDOSCOPY 01/15/2020 Dr. Rahman Family History Problem Relation Name Age of [...] Imaging/Testing: ANATOLIY Zhao CNP documented in this encounterSHolzer Health [id number] Telephone encounter Note* Telephone Encounter - Dorie Oliveira MA - 10/13/2022 11:34 AM EDT Sent to Oren See other encounters [facility] [id number] Miscellaneous Notes* Telephone Encounter - Dorie Oliveira MA - 10/13/2022 11:34 AM EDT Sent to Oren See other encounters * Telephone Encounter - Riddhi Garcia RN - 10/13/2022 10:45 AM EDT S: Patient spoke with [facility] nurse regarding rash B: Onset of symptoms/concern 2 days A: Patient complaining of rash(pink dots), itching all over body, headache, nausea. Denies fever, chest pain, difficulty breathing, wheezing. COVID screen (-). R: OV scheduled for today with Thierno Pena. Back line office staff notified of appointment scheduled within the hour. Patient understands care advice. No further needs at this time. Patient instructed to call back with new or worsening symptoms. Reason for Disposition Headache Protocols used: Rash or Redness - Cwyfwtkfly-AKLEW-PZ documented in this encounterSHolzer Health SystemChnfuq22-20-1613 Telephone encounter Note* Telephone Encounter - Dorie Oliveira MA - 10/13/2022 11:20 AM EDT Spoke with patient and relayed message and patient stated she has not taken her thyroid medication in over two weeks fue to losing them during her move and would like a refill Patient also stated she has appt with Wanda at 11:40 because she is not feeling well with the rash and now she has a migraine. [facility] [id number] Miscellaneous Notes* Telephone Encounter - Dorie Oliveira MA - 10/13/2022 11:20 AM EDT Spoke with patient and relayed message and patient stated she has not taken her thyroid medication in over two weeks fue to losing them during her move and would like a refill Patient also stated she has appt with Wanda at 11:40 because she is not feeling well with the rash and now she has a migraine. * Telephone Encounter - Solomon Judd DO - 10/12/2022 10:04 PM EDT I sent her a message explaining her lab results and to see if she can send pictures of what the rash looks like now. * Telephone Encounter - Whit Harmon - 10/12/2022 10:22 AM EDT Name of caller: Aissatou Contact phone number: [phone] Relationship to Patient: Self Provider: Dr. Judd Practice: [facility] Chief Complaint/Reason for Call: Pt states her rash is worsening and spreading. She states it is onher face, elbows, inside of her legs, under eyelids and at the top of her nose. She states it hurtsand feels like a rug burn. She took a shower a short while ago and her skin felt like it was on fire. Pt is off work today and will get the blood work done that Dr. Judd ordered. Pt states she cancome in for another appt if Dr. Judd thinks that is best. Pt states she does not want to have togo to the hospital. Please advise, thank you. Best time of day caller can be reached: any Patient advised that office/PCP has 24-48 business hours to return their call: No documented in this [facility]04-20-2023 Telephone encounter Note* Telephone Encounter - Riddhi Garcia RN - 10/13/2022 10:45 AM EDT S: Patient spoke with [facility] nurse regarding rash B: Onset of symptoms/concern 2 days A: Patient complaining of rash(pink dots), itching all over body, headache, nausea. Denies fever, chest pain, difficulty breathing, wheezing. COVID screen (-). R: OV scheduled for today with Thierno Pena. Back line office staff notified of appointment scheduled within the hour. Patient understands care advice. No further needs at this time. Patient instructed to call back with new or worsening symptoms. Reason for Disposition Headache Protocols used: Rash or Redness - Bgzfdapvll-FDHMN-AI [place] [id number] Telephone encounter Note* Telephone Encounter - Analy Martinez - 10/13/2022 10:43 AM EDT Message released to patient as written. Aissatou, Your kidneys are a little better than they were in the hospital. Your TSH is too high - are you ever forgetting to take your thyroid pill? I know you called to say that your rash is worsening. Can you send in a picture? ... Written by Solomon Judd DO on 10/12/2022 9:54 PM EDT Patient's further questions if applicable: Pt was not taking medication needs a refill lost script . Pt will send picture . Pt was transferredto triage Were all questions from office addressed or relayed to the patient from encounter: no Pt dont think thyroid is what is causing issue [place] [id number] Miscellaneous Notes* Telephone Encounter - Analy Martinez - 10/13/2022 10:43 AM EDT Message released to patient as written. Aissatou, Your kidneys are a little better than they were in the hospital. Your TSH is too high - are you ever forgetting to take your thyroid pill? I know you called to say that your rash is worsening. Can you send in a picture? ... Written by Solomon Judd DO on 10/12/2022 9:54 PM EDT Patient's further questions if applicable: Pt was not taking medication needs a refill lost script . Pt will send picture . Pt was transferredto triage Were all questions from office addressed or relayed to the patient from encounter: no Pt dont think thyroid is what is causing issue documented in this encounterSHolly Ville [id number] Telephone encounter Note* Telephone Encounter - Solomon Judd DO - 10/12/2022 10:04 PM EDT I sent her a message explaining her lab results and to see if she can send pictures of what the rash looks like now. [facility] [id number] Telephone encounter Note* Telephone Encounter - Whit Harmon - 10/12/2022 10:22 AM EDT Name of caller: Aissatou Contact phone number: [phone] Relationship to Patient: Self Provider: Dr. Judd Practice: [facility] Chief Complaint/Reason for Call: Pt states her rash is worsening and spreading. She states it is onher face, elbows, inside of her legs, under eyelids and at the top of her nose. She states it hurtsand feels like a rug burn. She took a shower a short while ago and her skin felt like it was on fire. Pt is off work today and will get the blood work done that Dr. Judd ordered. Pt states she cancome in for another appt if Dr. Judd thinks that is best. Pt states she does not want to have togo to the hospital. Please advise, thank you. Best time of day caller can be reached: any Patient advised that office/PCP has 24-48 business hours to return their call: No [facility] [id number] History of Present illness Narrative* Solomon Judd DO - 10/11/2022 3:45 PM EDT Images from the original note were not included. [facility] [address] [facility] [address] Dept: [phone] Dept Visit type: Established patient Reason for [...] Negative for chills, diaphoresis, fever and unexpected weightchange. Gastrointestinal: Negative for nausea. Skin: Positive for [...] 02/24/2016 SECTION, LOW TRANSVERSE COLONOSCOPY 01/15/2020 Dr. Rahman NECK SURGERY Left to remove cancer RECTAL SURGERY as a child UPPER GASTROINTESTINAL ENDOSCOPY 01/15/2020 Dr. Rahman Family History Problem Relation Name Age of Onset Ulcerative colitis Paternal Grandfather High Blood Pressure Mother Machelle Thyroid disease Mother Machelle defects Mother Machelle Depression Mother Machelle Hypertension Mother Machelle Mental illness Mother Machelel Alcohol abuse Father Talon Cancer Maternal Grandfather Al Diabetes Mother's Sister Marleni Learning disabilities Sister Rosa Vision loss Sister Roas Miscarriages / Stillbirths Sister Terra Stomach cancer [...] Data Reviewed and Summarized Labs: Imaging/Testing: Solomon Judd DO documented in this [facility]03-09-2023 History of Present illness Narrative* Solomon Judd DO - 09/01/2022 12:30 PM EST Images from the original note were not included. [facility] [address] [place] [address] [address] [place] [address] Dept: [phone] Dept Visit type: Established patient Reason for Visit: Annual Exam and Gynecologic Exam Assessment and Plan 1. Annual physical exam - cyanocobalamin (Vitamin B-12) 500 MCG tablet; Take 1 tablet (500 mcg) by mouth daily., Starting [facility] 09/01/2022, Normal - cholecalciferol (Vitamin D-3) 50 MCG (2000 UT) capsule; Take 1 capsule (50 mcg) by mouth daily., Starting [facility] 09/01/2022, Normal 2. Screening for cervical cancer - Pap Smear 3. Routine screening for STI (sexually transmitted infection) - C. trachomatis / N. gonorrhoeae, DNA probe 4. Herpes simplex vulvovaginitis - valACYclovir (Valtrex) 500 MG tablet; Take 1 tablet (500 mg) by mouth 2 times daily for 3 days., Starting [facility] 09/01/2022, Until 09/04/2022, Normal 5. Encounter for surveillance of implantable subdermal contraceptive - [employer]PERATOR 6. Chronic migraine without aura without status migrainosus, not intractable - SUMAtriptan (Imitrex) 25 MG tablet; Take 1 tablet (25 mg) by mouth Once as needed for migraine for up to 1 dose., Starting [facility] 09/01/2022, Normal 7. Acquired hypothyroidism - levothyroxine (Synthroid, Levoxyl) 150 MCG tablet; Take 1 tablet (150 mcg) by mouth every morning(before breakfast)., Starting [facility] 09/01/2022, Normal - TSH Discussed need to take this medication every day on an empty stomach. 8. Vitamin D deficiency 9. Tobacco use disorder 10. Stage 3b chronic kidney disease (HCC) - Basic metabolic panel Will get records from nephrology. Follow up in about 6 months (around 03/04/2023) for Recheck. Subjective Gynecologic Exam The patient's pertinent negatives include no pelvic pain. Associated symptoms include diarrhea. Pertinent negatives include no abdominal pain, back pain, chills, constipation, dysuria, fever, frequency, headaches, nausea, rash, sore throat or urgency. Here for an annual exam and Pap test. Feels she is doing well lately - new job at [employer] and now wants to get back on track with health. 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 She says she saw nephro but we never got a note. She saw urology and a renal scan was ordered. She went in to get it done, but they could not get anIV started. She never rechescheduled. She has a subdermal implant for contraception, but is a few months past the expiration date. She would like to get another one of these because she did not tolerate control pills very well. Currently sexually active. History of herpes, but has not had an outbreak in months. She has not taken medication in month either. She would prefer to take medication as needed only. She went from smoking to the vaping a couple of months ago. She has not taken her thyroid medication in months. She has been feeling tired, her periods have been irregular, and her bowels have not been regulated. She actually feels like she is having more diarrhea than constipation. She gets migraines every 2-3 weeks. Never picked up Imitrex that was sent last visit and needs sentagain. Review of Systems Constitutional: Positive for fatigue. Negative for chills, fever and unexpected weight change. HENT: Negative for congestion, hearing loss, rhinorrhea, sinus pressure, sinus pain and sore throat. Eyes: Negative for redness and visual disturbance. Respiratory: Negative for cough, shortness of breath and wheezing. Cardiovascular: Negative for chest pain, palpitations and leg swelling. Gastrointestinal: Positive for diarrhea. Negative for abdominal pain, blood in stool, constipation and nausea. Endocrine: Negative for cold intolerance and heat intolerance. Genitourinary: Positive for menstrual problem. Negative for difficulty urinating, dysuria, frequency, pelvic pain and urgency. Musculoskeletal: Negative for arthralgias, back pain and myalgias. Skin: Negative for rash and wound. Allergic/Immunologic: Negative for environmental allergies, food allergies and immunocompromised state. Neurological: Negative for dizziness, weakness, numbness and headaches. Hematological: Negative for adenopathy. Does not bruise/bleed easily. Psychiatric/Behavioral: Negative for dysphoric mood and sleep disturbance. The patient is not nervous/anxious. Allergies Allergen Reactions Cat Hair Extract Shortness [...] every morning (before breakfast). 90 tablet 1 losartan (Cozaar) 25 MG tablet Take 25 mg by mouth in the morning. SUMAtriptan (Imitrex) 25 MG tablet Take 1 tablet (25 mg) by mouth Once as needed for migraine for up to 1 dose. 9 tablet 2 valACYclovir (Valtrex) 500 MG tablet Take 1 tablet (500 mg) by mouth 2 times daily for 3 days. 6 tablet 5 No current facility-administered medications for this visit. [...] Last attempt to quit: 06/06/2022 Years since quittin.2 Smokeless tobacco: Never Substance Use Topics Alcohol use: No Past Surgical History: Procedure Laterality Date SECTION (HISTORICAL) 02/24/2016 SECTION, LOW TRANSVERSE COLONOSCOPY 01/15/2020 Dr. Rahman NECK SURGERY Left to remove cancer RECTAL SURGERY as a child UPPER GASTROINTESTINAL ENDOSCOPY 01/15/2020 Dr. Rahman Family History Problem Relation Name Age of [...] Sitting, BP Cuff Size: Small adult) Pulse 83 Temp 36.4 C (97.5 F) (Infrared) Ht 5' 9 (1.753 m) Wt 144 lb (65.3 kg) LMP 08/30/2022 BMI 21.27 kg/m Physical Exam Constitutional: General: She is not in acute distress. Appearance: Normal appearance. She is not ill-appearing. HENT: Head: Normocephalic and atraumatic. Right Ear: Tympanic membrane normal. Left Ear: Tympanic membrane normal. Nose: Nose normal. Mouth/Throat: Mouth: Mucous membranes are moist. Eyes: Extraocular Movements: Extraocular movements intact. Conjunctiva/sclera: Conjunctivae normal. Pupils: Pupils are equal, round, and reactive to light. Neck: Thyroid: No thyromegaly. Cardiovascular: Rate and Rhythm: Normal rate and regular rhythm. Heart sounds: No murmur heard. Pulmonary: Effort: Pulmonary effort is normal. Breath sounds: Normal breath sounds. No wheezing, rhonchi or rales. Abdominal: General: Abdomen is flat. There is no distension. Palpations: Abdomen is soft. There is no mass. Tenderness: There is no abdominal tenderness. Genitourinary: General: Normal vulva. Labia: Right: No rash or lesion. Left: No rash or lesion. Vagina: Normal. No vaginal discharge. Cervix: Normal. Musculoskeletal: General: Normal range of motion. Cervical back: Normal range of motion. Right lower leg: No edema. Left lower leg: No edema. Lymphadenopathy: Cervical: No cervical adenopathy. Skin: General: Skin is warm and dry. Findings: No rash. Neurological: General: No focal deficit present. Mental Status: She is alert and oriented to person, place, and time. Cranial Nerves: No cranial nerve deficit. Motor: No weakness. Coordination: Coordination normal. Gait: Gait normal. Psychiatric: Mood and Affect: Mood normal. Behavior: Behavior normal. Data Reviewed and Summarized Labs: Imaging/Testing: Solomon Judd DO documented in this [facility]03-09-2023 History of Present illness Narrative* Solomon Judd DO - 09/01/2022 12:30 PM EST Images from the original note were not included. [address] [facility] [address] Dept: [phone] Dept Visit type: Established patient Reason for Visit: Annual Exam and Gynecologic Exam Assessment and Plan 1. Annual physical exam - cyanocobalamin (Vitamin B-12) 500 MCG tablet; Take 1 tablet (500 mcg) by mouth daily., Starting [facility] 09/01/2022, Normal - cholecalciferol (Vitamin D-3) 50 MCG (2000 UT) capsule; Take 1 capsule (50 mcg) by mouth daily., Starting [facility] 09/01/2022, Normal 2. Screening for cervical cancer - Pap Smear 3. Routine screening for STI (sexually transmitted infection) - C. trachomatis / N. gonorrhoeae, DNA probe 4. Herpes simplex vulvovaginitis - valACYclovir (Valtrex) 500 MG tablet; Take 1 tablet (500 mg) by mouth 2 times daily for 3 days., Starting [facility] 09/01/2022, Until 09/04/2022, Normal 5. Encounter for surveillance of implantable subdermal contraceptive - [employer]PERATOR 6. Chronic migraine without aura without status migrainosus, not intractable - SUMAtriptan (Imitrex) 25 MG tablet; Take 1 tablet (25 mg) by mouth Once as needed for migraine for up to 1 dose., Starting [facility] 09/01/2022, Normal 7. Acquired hypothyroidism - levothyroxine (Synthroid, Levoxyl) 150 MCG tablet; Take 1 tablet (150 mcg) by mouth every morning(before breakfast)., Starting [facility] 09/01/2022, Normal - TSH Discussed need to take this medication every day on an empty stomach. 8. Vitamin D deficiency 9. Tobacco use disorder 10. Stage 3b chronic kidney disease (HCC) - Basic metabolic panel Will get records from nephrology. Follow up in about 6 months (around 03/04/2023) for Recheck. Subjective Gynecologic Exam The patient's pertinent negatives include no pelvic pain. Associated symptoms include diarrhea. Pertinent negatives include no abdominal pain, back pain, chills, constipation, dysuria, fever, frequency, headaches, nausea, rash, sore throat or urgency. Here for an annual exam and Pap test. Feels she is doing well lately - new job at [employer] and now wants to get back on track with health. 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 She says she saw nephro but we never got a note. She saw urology and a renal scan was ordered. She went in to get it done, but they could not get anIV started. She never rechescheduled. She has a subdermal implant for contraception, but is a few months past the expiration date. She would like to get another one of these because she did not tolerate control pills very well. Currently sexually active. History of herpes, but has not had an outbreak in months. She has not taken medication in month either. She would prefer to take medication as needed only. She went from smoking to the vaping a couple of months ago. She has not taken her thyroid medication in months. She has been feeling tired, her periods have been irregular, and her bowels have not been regulated. She actually feels like she is having more diarrhea than constipation. She gets migraines every 2-3 weeks. Never picked up Imitrex that was sent last visit and needs sentagain. Review of Systems Constitutional: Positive for fatigue. Negative for chills, fever and unexpected weight change. HENT: Negative for congestion, hearing loss, rhinorrhea, sinus pressure, sinus pain and sore throat. Eyes: Negative for redness and visual disturbance. Respiratory: Negative for cough, shortness of breath and wheezing. Cardiovascular: Negative for chest pain, palpitations and leg swelling. Gastrointestinal: Positive for diarrhea. Negative for abdominal pain, blood in stool, constipation and nausea. Endocrine: Negative for cold intolerance and heat intolerance. Genitourinary: Positive for menstrual problem. Negative for difficulty urinating, dysuria, frequency, pelvic pain and urgency. Musculoskeletal: Negative for arthralgias, back pain and myalgias. Skin: Negative for rash and wound. Allergic/Immunologic: Negative for environmental allergies, food allergies and immunocompromised state. Neurological: Negative for dizziness, weakness, numbness and headaches. Hematological: Negative for adenopathy. Does not bruise/bleed easily. Psychiatric/Behavioral: Negative for dysphoric mood and sleep disturbance. The patient is not nervous/anxious. Allergies Allergen Reactions Cat Hair Extract Shortness [...] every morning (before breakfast). 90 tablet 1 losartan (Cozaar) 25 MG tablet Take 25 mg by mouth in the morning. SUMAtriptan (Imitrex) 25 MG tablet Take 1 tablet (25 mg) by mouth Once as needed for migraine for up to 1 dose. 9 tablet 2 valACYclovir (Valtrex) 500 MG tablet Take 1 tablet (500 mg) by mouth 2 times daily for 3 days. 6 tablet 5 No current facility-administered medications for this visit. [...] Last attempt to quit: 06/06/2022 Years since quittin.2 Smokeless tobacco: Never Substance Use Topics Alcohol use: No Past Surgical History: Procedure Laterality Date SECTION (HISTORICAL) 02/24/2016 SECTION, LOW TRANSVERSE COLONOSCOPY 01/15/2020 Dr. Rahman NECK SURGERY Left to remove cancer RECTAL SURGERY as a child UPPER GASTROINTESTINAL ENDOSCOPY 01/15/2020 Dr. Rahman Family History Problem Relation Name Age of [...] Sitting, BP Cuff Size: Small adult) Pulse 83 Temp 36.4 C (97.5 F) (Infrared) Ht 5' 9 (1.753 m) Wt 144 lb (65.3 kg) LMP 08/30/2022 BMI 21.27 kg/m Physical Exam Constitutional: General: She is not in acute distress. Appearance: Normal appearance. She is not ill-appearing. HENT: Head: Normocephalic and atraumatic. Right Ear: Tympanic membrane normal. Left Ear: Tympanic membrane normal. Nose: Nose normal. Mouth/Throat: Mouth: Mucous membranes are moist. Eyes: Extraocular Movements: Extraocular movements intact. Conjunctiva/sclera: Conjunctivae normal. Pupils: Pupils are equal, round, and reactive to light. Neck: Thyroid: No thyromegaly. Cardiovascular: Rate and Rhythm: Normal rate and regular rhythm. Heart sounds: No murmur heard. Pulmonary: Effort: Pulmonary effort is normal. Breath sounds: Normal breath sounds. No wheezing, rhonchi or rales. Abdominal: General: Abdomen is flat. There is no distension. Palpations: Abdomen is soft. There is no mass. Tenderness: There is no abdominal tenderness. Genitourinary: General: Normal vulva. Labia: Right: No rash or lesion. Left: No rash or lesion. Vagina: Normal. No vaginal discharge. Cervix: Normal. Musculoskeletal: General: Normal range of motion. Cervical back: Normal range of motion. Right lower leg: No edema. Left lower leg: No edema. Lymphadenopathy: Cervical: No cervical adenopathy. Skin: General: Skin is warm and dry. Findings: No rash. Neurological: General: No focal deficit present. Mental Status: She is alert and oriented to person, place, and time. Cranial Nerves: No cranial nerve deficit. Motor: No weakness. Coordination: Coordination normal. Gait: Gait normal. Psychiatric: Mood and Affect: Mood normal. Behavior: Behavior normal. Data Reviewed and Summarized Labs: Imaging/Testing: Solomon Judd DO documented in this [facility]03-09-2023 Miscellaneous Notes* Addendum Note - Marta Eisenberg - 09/01/2022 12:30 PM ESTAddended by: MARTA EISENBERG on: 09/02/2022 11:33 PM Modules accepted: Orders documented in this [facility]03-09-2023 Note* Addendum Note - Marta Eisenberg - 09/01/2022 12:30 PM ESTAddended by: MARTA EISENBERG on: 09/02/2022 11:33 PM Modules accepted: [id number] History of Present illness NarrativePatient presents with nausea, vomiting, headache, weakness, and dizziness that hit her in a wave last night. She reports that she had the flu several weeks ago and recovered, but has been feeling offthe last couple of days. She states that she still has a headache and some nausea, but is not feeling dizzy or flushed any more. She reports that she feels really fatigued now and is concerned due toher chronic conditions. She reports that she is in cancer remission from Hodgkin's lymphoma and hasstage 4 kidney failure. She reports that she last had COVID last year. Patient denies cough, nasal congestion, fever/chills, night sweats, abdominal pain, diarrhea, muscle aches, chest pain, neck pain, and any rashes at this time.[facility] Work Phone: [phone]) 659-719111-30-2022 Miscellaneous Notes* Telephone Encounter - Mayuri GREEN - 05/25/2022 11:29 AM EST I have pt scheduled for renal scan and follow up with Dr. Sharpe. When pt calls back please either give pt appts or transfer pt to me so I can go over with her. Thank you. Mayuri GREEN * Telephone Encounter - Raj South MA - 05/25/2022 10:45 AM EST LVM to call back * Telephone Encounter - Talib Sharpe Jr., MD - 05/25/2022 10:14 AM EST Ordered Please arrange Fu with me after * Telephone Encounter - Raj South MA - 05/25/2022 9:48 AM EST Pt called and asking for Renal lasix scan, this was mention on last office visit note Please advise Raj South MA [facility] Miscellaneous Notes* Telephone Encounter - Aubree Brewster Cma - 03/22/2022 9:34 AM EDT Just spoke to patient she is on her way to the ED pain is intolerable . * Telephone Encounter - Talib Sharpe Jr., MD - 03/22/2022 9:09 AM EDT She would need a ct scan Does she want me to order? * Telephone Encounter - Aubree Brewster Cma - 03/22/2022 8:03 AM EDT Pt rupesh;led states she developed lower back kidney area pain pt describes pain at a 7/10 no n/v asking if she should go to ER or just have imaging done never had kidney stones opt states she stage 4 kidney failure only has 1 kidney is a little nervous please advise documented in this [facility] History of Present illness Narrative* Talib Sharpe Jr., MD - 03/18/2022 12:12 PM EDT ESTABLISHED PATIENT OFFICE VISIT HPI Aissatou Betts is a 31 year old female who presents with ho bilateral ureteral reflux. Ho more crosstrigonal reimplant as a kid. Has chronic bilateral hydro. Worsening renal function. Cr up to 1.98. renal lasix scan one year ago suggested no obstruction. Has appt with nephrology soon LAB: Creatinine Date Value Ref Range Status 12/24/2021 1.98 (H) 0.58 - 0.96 mg/dL Final No results found for: PSA Glucose, Urine Date Value 12/21/2021 Trace 07/31/2018 neg mg/dL Bilirubin, Urine (no units) Date Value 12/21/2021 Negative 10/13/2014 Negative Ketones, Urine (no units) Date Value 12/21/2021 Negative 10/13/2014 Negative Specific Ramsay, Ur (no units) Date Value 12/22/2021 1.007 10/13/2014 1.025 Hemoglobin/Blood,Ur Date Value 12/21/2021 Negative 10/13/2014 Trace pH, Urine (no units) Date Value 12/21/2021 6.5 10/13/2014 6.0 Protein, Urine Date Value 12/21/2021 1+ 07/31/2018 100 mg/dL Urobilinogen, Urine (EU) Date Value 04/01/2011 NORMAL Nitrites (no units) Date Value 12/21/2021 Negative 10/13/2014 Positive Leukocytes (no units) Date Value 04/01/2011 3+ WBC, Urine Date Value 12/21/2021 11-25 /HPF 10/13/2014 30-50 /HPF Color/Appearance (comment:) Date Value 04/01/2011 CLOUDY YELLOW MEDICATIONS: hydrOXYzine HCl (ATARAX) 50 mg tablet Take 1 tablet by mouth three times daily as needed for anxiety. calcium carbonate (TUMS 500 ORAL) Take 500 mg by mouth as needed (upset stomach). ondansetron (ZOFRAN) 8 mg tablet Take 8 mg by mouth every 8 hours as needed for nausea/vomiting. valACYclovir (VALTREX) 500 mg tablet TAKE 1 TABLET BY MOUTH DAILY VITAMIN D-3 50 mcg (2,000 unit) cap Take 1 capsule by mouth once daily. levothyroxine (SYNTHROID) 150 mcg tablet Take 1 tablet by mouth once daily. etonogestrel (NEXPLANON) subdermal implant 68 mg 1 Each by SUBDERMAL route as directed. VITAMIN B-12 500 mcg tab tab(s) sertraline (ZOLOFT) 25 mg tablet Take 1 tablet by mouth once daily. ARIPiprazole (ABILIFY) 5 mg tablet Take 5 mg by mouth once daily. losartan (COZAAR) 25 mg tablet Take 1 tablet by mouth once daily. traZODone (DESYREL) 100 mg tablet Take 100 mg by mouth daily at bedtime. dicyclomine (BENTYL) 20 mg tablet Take 20 mg by mouth every 6 hours as needed (abd pain). buprenorphine-naloxone (ZUBSOLV) 2.9-0.71 mg subl Dissolve 1 tablet under the tongue once daily. sublingual ALBUTEROL SULFATE HFA INHALATION Inhale 2 Puffs as instructed every 6 hours as needed. uses PRN forasthma. Pt. unsure of dose (Patient not taking: Reported on 02/10/2021 ) REVIEW OF SYSTEMS Review of Systems Constitutional: Negative. Respiratory: Negative. Cardiovascular: Negative. Gastrointestinal: Negative. Genitourinary: Negative. Skin: Negative. Neurological: Negative. Psychiatric/Behavioral: Negative. HISTORIES PAST MEDICAL HISTORY Diagnosis Date Alcohol abuse polysubstance abuse Anemia Asthma Bipolar 1 disorder (HCC) Chronic hepatitis C (HCC) Decreased hearing 85 % hearing loss in left ear Depression 10/12/2011 Headache History of delivery Hodgkin's disease 2008 S/p chemo/radiation Hypothyroidism Solitary kidney, congenital pt born with single kidney FAMILY HISTORY Problem Relation Age of Onset Hypertension Mother other (depresssion) Mother No Known Problems Father Cancer Maternal Grandfather other (ulcerative colitis) Paternal Grandmother Diabetes Maternal Aunt SOCIAL HISTORY Social History Tobacco Use Smoking status: Every Day Packs/day: 0.50 Years: 0.70 Pack years: 0.35 Types: Cigarettes Smokeless tobacco: Never Vaping Use Vaping Use: Some days Substance Use Topics Alcohol use: No Alcohol/week: 0.8 standard drinks Types: 1 Cans of beer per week Drug use: No Comment: used heroin, crack, marijuana, meth in past. Last used heroin and crack Apr 2018 PHYSICAL EXAMINATION General appearance: Well appearing, alert, in no acute distress, and well- hydrated, well nourished Skin: Skin color, texture, turgor normal, no suspicious rashes or lesions Respiratory:+ effort Cardiovascular: Not examined GI: Normal abdominal exam, Abdomen soft, non-tender. No masses, organomegaly Musculoskeletal: Negative Neuro: Negative Genitourinary: not examined Impression: (N13.30) Hydronephrosis, unspecified hydronephrosis type (primary encounter diagnosis) (N18.4) Chronic renal failure, stage 4 (severe) ([facility]) Plan: Renal lasix scan Set for prn Rec meet with nephrology Talib Sharpe Jr, MD 03/18/2022 [facility] of [facility] Narrative* Problem [...] of this encounter (statuses as of 03/18/2022) [facility] Narrative* Problem [...] of this encounter (statuses as of 04/05/2022) [facility] Narrative* Problem [...] of this encounter (statuses as of 05/25/2022) [facility] Narrative* Problem [...] of this encounter (statuses as of 10/14/2022) [facility] Narrative* Problem [...] of this encounter (statuses as of 02/08/2023) [facility] Narrative* Problem [...] of this encounter (statuses as of 04/03/2023) [facility] Narrative* Problem [...] of this encounter (statuses as of 04/04/2023) [facility] Narrative* Problem [...] of this encounter (statuses as of 04/05/2023) [facility] Narrative* Problem [...] of this encounter (statuses as of 04/07/2023) [facility] Narrative* Problem [...] of this encounter (statuses as of 04/19/2023) [address]02-2014 History of Past illness Narrative* Problem Noted [...] of this encounter (statuses as of 04/21/2023) [facility] N[facility]* Problem [...] of this encounter (statuses as of 04/21/2023) [facility] Narrative* Problem [...] of this encounter (statuses as of 04/21/2023) [facility] Narrative* Problem [...] of this encounter (statuses as of 04/30/2023) [facility] Narrative* Problem [...] of this encounter (statuses as of 04/30/2023) [facility] Narrative* Problem [...] of this encounter (statuses as of 05/17/2023) [facility] N[facility]ative* Problem [...] of this encounter (statuses as of 05/25/2023) [facility] Narrative* Problem [...] of this encounter (statuses as of 05/29/2023) [facility] Narrative* Problem [...] of this encounter (statuses as of 06/02/2023) [facility] Narrative* Problem [...] of this encounter (statuses as of 06/07/2023) [facility] Narrative* Problem [...] of this encounter (statuses as of 06/09/2023) [facility] Narrative* Problem [...] of this encounter (statuses as of 08/08/2023) [facility] Ashlee Barreto [facility] Note Date/Time October 11, 2024 1:4 1am [facility] Medical Records Department [address] [place] [address] Emergency Department Summary 10/11/24 MR#: [id number] Acct: [id number] Name: AISSATOU BETTS Rep #:[id number] : 1990 33 From: Ashlee Carson PCP: BRANDON Ruiz Status:REG E R Location: ED HPI History of Present Illness Chief Complaint: Nausea/Vomiting Informant: patient Narrative Narrative: Patient is a 33-year-old female presenting with back pain and concern for urinary tract infection. She states she has a history of CKD, congenital solitary kidney, drug abuse (on Suboxone) and frequent urinary tract infections. She states that she has had 1 month of intermittent nausea and vomiting. Last vomiting was 2 days ago). She has been having chills and hot flashes. Over thepast 2 to 3 days she developed some low back pain that radiates up to the right side of her back. She has chronic hematuria denies any change in this. Denies any dysuria. Denies excess abdominal pain or fevers (but does report chills andfeeling flushed). She is concerned that she could have urinary tract infection and came to the ER. She notes she is currently between insurance which is why she came here instead of following up with urology or PCP. She has a Nexplanon and is not concern for . She does note that with her symptoms of her nausea/vomiting she has taken test which have been negative. Tonight she had a hard time getting through her shift because of her pain and this triggered her to come in. She did not take anything for pain prior to arrival. No other complaints or concerns reported at this time. [facility] Medical History Substance abuse Alcohol abuse Bipolar disorder Hyperthyroidism Kidney disease Pancreatitis Tobacco abuse COVID-19 Flu vaccine need Tachycardia IBS (irritable bowel syndrome) Wears glasses Depression Anxiety History of renal disease Hepatitis Migraine headache Smoker History of imperforate anus Hydronephrosis Migraine Menometrorrhagia Deafness in left ear Pancreatitis Chronic headaches Drug abuse Asthma Anemia Seasonal allergies demise > 22 weeks, delivered, current hospitalization Home Medications ?Medication ?Instructions ?Recorded ?Last Taken ?Type sertraline 25 mg tablet 25 mg PO DAILY depression #9 0 tabs 08/26/21 10/20/21 Rx buprenorphine 4 mg-naloxone 1 mg 1 film sublingual BID ADDICTION 10/21/21 10/21/21 History sublingual film (Suboxone) valacyclovir 500 mg tablet 500 mg PO DAILY INFECTION 0 10/21/21 10/20/21 History losartan 25 mg tablet 25 mg PO DAILY #0 tabs 10/24 Unknown Rx aripiprazole 10 mg tablet 10 mg PO DAILY MOOD #30 tabs 10/27/21 Unknown Rx levothyroxine 150 mcg tablet 150 mcg PO DAILY THYROID #30 tabs 10/27/21 Unknown Rx amitriptyline 10 mg tablet 10 mg PO QHS 08/03/23 Unkno wn History rimegepant 75 mg disintegrating 75 mg PO DAILY PRN oscar tana 08/03/23 Unknown History tablet (Nurtec ODT) headache ondansetron 4 mg disintegrating 4 mg PO Q8H PRN PRN Na usea #20 tabs 09/09/23 Unknown Rx tablet metoclopramide HCl 10 mg tablet 10 mg PO Q6H PRN nause a and 12/27/23 Unknown Rx (Reglan) vomiting #14 tabs ondansetron 4 mg disintegrating 4 mg PO Q8H PRN PRN Na usea #10 tabs 12/27/23 Unknown Rx tablet gabapentin 100 mg capsule 100 mg PO TID 10/10/24 Unkno wn History cephalexin 500 mg capsule 500 mg PO Q12 #14 CAPSULES 0 10/11/24 Unknown Rx ondansetron 4 mg disintegrating 4 mg PO Q8H PRN PRN Na usea #15 tabs 10/11/24 Unknown Rx tablet Allergy/AdvReac Type Severity Reaction Status Date / Time ceftriaxone (From Rocephin) Allergy Unknown Verified 10/10/24 23:33 ceftriaxone sodium (From Allergy Hives Verified 10/10/24 23:33 Rocephin) droperidol Allergy Unknown Verified 10/10/24 23:33 Family History Mother Depression Hypertension Mental disorder Thyroid disorder Aunt Diabetes Grandfather Alcoholism Cancer Surgical History History of removal of Port-a-Cath Hx of surgical procedure Hx of cystoscopy Social History household members: none Smoking Status: Current every day smoker tobacco type: cigarettes alcohol intake: never substance use type: crack/cocaine, heroin and other details: Currently snorts 1/2 gm daily of each heroin and cocaine. Also uses meth. what type of physical activity do you participate in: aerobics and weight training frequency: 3-4 times per week ROS ROS ED Constitutional Constitutional ED: Reports chills, fever(s) and subjective Gastrointestinal Gastrointestinal: Reports nausea and vomiting; Denies abdominal pain, constipation or diarrhea Genitourinary Genitourinary ED: Reports hematuria; Denies dysuria Musculoskeletal Musculoskeletal: Reports back pain; Denies myalgias Neurologic Neurologic: Denies paresthesias or weakness Hematologic/Lymphatic Hematologic/Lymphatic: Denies easy bleeding or easy bruising EXAM Physical Exam Const Vital Signs: 10/10/24 23:32 Temperature 98.6 F Temperature Source Oral Pulse Rate 100 Respiratory Rate 18 Blood Pressure 135/85 H Blood Pressure Mean 101 Pulse Ox 98 Oxygen Delivery Method Room Air Positive well nourished and well developed General Appearance ED: well developed and NAD HEENT Reports moist mucous membranes Neck supple Chest Wall inspection of chest normal and palpation of chest normal Resp normal respiratory effort and clear to auscultation bilaterally Cardio regular rate and regular rhythm GI normal to inspection, nondistended, normoactive bowel sounds and non-tender Auscultation: normoactive bowel sounds Back/Spine no CVA tenderness Back/Spine Narrative: Patient points to her lower lumbar back diffusely as the pain but is not reproducible with movement or direct palpation. General Back: Negative for CVA tenderness Thoracic Spine / Upper Back: Negative for thoracic spinal tenderness Lumbar Spine / Lower Back: Negative for lumbar spinal tenderness Neuro oriented x3 Sensorium / Orientation: alert Motor Exam: Negative for general weakness Psych mental status grossly normal Skin no rashes or lesions noted and no wounds MDM MDM MDM Narrative Medical decision making narrative: Patient is evaluated for low back pain and concern for urinary tract infection. Does have a history of congenital solitary kidney and frequent urinary tract infections. Reports 1 month of intermittent nausea and vomiting as well as subjective fever and chills. At this time patient is overall well-appearing. He has not any CVA tenderness. He does not have any tenderness in the suprapubic region. Her vital signs are normal. Urinalysis shows contamination but does show 10-25 white blood cells with 1+ bacteria. Given her history she would like to be treated. Did send offher culture. She states Keflex usually works well for her and she tolerates it well. She has a documented allergy to Rocephin causing hives but her fill history shows that she had Keflex in July of this year. Is given first doseof Keflex in the emergency room. Patient would like to forego blood work at this time given that she is currently without insurance. Given that she has normal vital signs and overall is well-appearing with a benign physical exam I think this is reasonable. Patient is given close return precautions. Is given referral for urology. Discharged home in stable condition. Differential includes urinary tract infection, , pyelonephritis, muscleskeletal back pain Lab Data Attestation: I reviewed the patient's lab results. Labs: Laboratory Results - last 24 hr 10/11/24 00:21 Urine Color Yellow Urine Clarity Clear Urine pH 6.0 Ur Specific Ramsay 1.010 Urine Protein TNP Urine Glucose (UA) 50 H Urine Ketones Negative Urine Occult Blood 10 H Urine Nitrite Negative Urine Bilirubin Negative Urine Urobilinogen Normal Ur Leukocyte Esterase 25 H Urine RBC 0-5 SEEN Urine WBC 10-25 SEEN Ur Squamous Epith Cells 10-25 SEEN Urine Bacteria 1+ Urine Mucus 0 SEEN U Random Total Protein 164.0 H Urine Test Negative Discharge Plan Triage Chief Complaint: Nausea/Vomiting ED Provider: Ashlee Barreto Dx/Rx/DC Orders Clinical Impression: UTI (urinary tract infection), Low back pain Instructions: UTIs, ED Back Care Tips Prescriptions: New cephalexin 500 mg capsule 500 mg PO Q12 Qty: 14 0RF Continued ondansetron 4 mg tablet,disintegrating 4 mg PO Q8H PRN PRN (Reason: Nausea) Qty: 15 0RF No Action valacyclovir 500 mg tablet 500 mg PO DAILY buprenorphine-naloxone [Suboxone] 4-1 mg Film 1 film SUBLINGUAL BID Patient Comments: CALLED TO VERIFY SUBOXONE WITH [facility] [place]. PT JUST STARTED TREATMENT WITH [facility] AND NEW RX WAS FILLED AND CANCELED YESTERDAY FOR THE SUBOXONE 4-1 FILM BID. [facility] STATED PT DID NOT PICK-UP AND RX WAS CANCELED. losartan 25 mg Tablet 25 mg PO DAILY Qty: 0 0RF amitriptyline 10 mg tablet 10 mg PO QHS Patient Comments: Take 1 tablet (10 mg) by mouth Nightly. Nurtec ODT 75 mg tablet,disintegrating 75 mg PO DAILY PRN (Reason: migraine headache) gabapentin 100 mg capsule 100 mg PO TID ondansetron 4 mg tablet,disintegrating 4 mg PO Q8H PRN PRN (Reason: Nausea) Qty: 20 0RF ondansetron 4 mg tablet,disintegrating 4 mg PO Q8H PRN PRN (Reason: Nausea) Qty: 10 0RF metoclopramide HCl [Reglan] 10 mg tablet 10 mg PO Q6H PRN (Reason: nausea and vomiting) Qty: 14 0RF sertraline 25 mg tablet 25 mg PO DAILY Qty: 90 3RF aripiprazole 10 mg tablet 10 mg PO DAILY Qty: 30 2RF levothyroxine 150 mcg tablet 150 mcg PO DAILY Qty: 30 2RF Primary Care Provider: Pam Yost NP Referrals: Pam Yost NP, [facility] [Primary Care Provider] - Activity Restrictions/Additional Instructions: If you develop fever or worsening symptoms please return to the emergency room for further workup. Print Language: Guamanian Disposition Disposition: Home, Self Care What to do if you have Problems For any increased pain, shortness of breath, bleeding, nausea or vomiting, chestpain, or any unexpected problems, contact your Primary Care Provider. Call [facility] ([phone]) or report to the closest Emergency Room. Call 911 if necessary. 10/11/24 0141 <Electronically signed by Ashlee Barreto DO> Cosigner Signature (if applicable): CC: SAND FILLERJames Yost ~ Signed [facility] Work Phone: Evaluation note* Diagnosis Onset Date Resolution Status COVID-19 resolved Desire for detoxification ac [facility] Drug abuse acute History of lymphoma acute Opiate withdrawal acute [facility] Work Phone: Evaluation note* Diagnosis Onset Date Resolution Status Desire for detoxification ac [facility] Drug abuse acute History of lymphoma acute Opiate withdrawal acute Severe protein-calorie malnutrition acute Hypokalemia resolved [facility] Work Phone: Evaluation note* Diagnosis Hydronephrosis, unspecified hydronephrosis type- Primary Chronic renal failure, stage 4 (severe) (HCC) documented in this encounter [facility] note* Diagnosis Hydronephrosis, unspecified hydronephrosis type Chronic renal failure, stage 4 (severe) (HCC) documented in this encounter [facility] note* Diagnosis Hydronephrosis, unspecified hydronephrosis type- Primary documented in this encounter [facility] note* Diagnosis Rash and nonspecific skin eruption- Primary Rash and other nonspecific skin eruption Acquired hypothyroidism Unspecified hypothyroidism Stage 3b chronic kidney disease (HCC) [facility] Diagnosis Acquired hypothyroidism Unspecified hypothyroidism [facility] Diagnosis Rash- Primary Rash and other nonspecific skin eruption [facility] Diagnosis Orthostatic hypotension- Primary Stage 3b chronic kidney disease (HCC) Shortness of breath Idiopathic peripheral neuropathy Unspecified hereditary and idiopathic peripheral neuropathy History of Hodgkin's lymphoma [facility] Diagnosis Orthostatic hypotension- Primary Stage 3b chronic kidney disease (HCC) Shortness of breath Idiopathic peripheral neuropathy Unspecified hereditary and idiopathic peripheral neuropathy History of Hodgkin's lymphoma [facility] Diagnosis Moderate persistent asthma without complication- Primary [facility] Diagnosis Chronic migraine without aura without status migrainosus, not intractable [facility] Diagnosis Shortness of breath History of Hodgkin's lymphoma [facility] Diagnosis Moderate persistent asthma without complication- Primary Acquired hypothyroidism Unspecified hypothyroidism Chronic migraine without aura without status migrainosus, not intractable Stage 3b chronic kidney disease (HCC) 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 [facility] Diagnosis Encounter for removal and reinsertion of Nexplanon- Primary Recurrent HSV (herpes simplex virus) Herpes simplex without mention of complication Bipolar 1 disorder (HCC) Bipolar I disorder, most recent episode (or current) unspecified PTSD (post-traumatic stress disorder) Posttraumatic stress disorder Anxiety Anxiety state, unspecified [facility] New daily persistent headache- Primary Intractable chronic migraine without aura and without status migrainosus Chronic migraine without aura, with intractable migraine, so stated, without mention of status migrainosus Obstructive sleep apnea Obstructive sleep apnea (adult) (pediatric) [facility] Diagnosis Severe persistent asthma without complication- Primary Interstitial pulmonary disease (HCC) Postinflammatory pulmonary fibrosis Hodgkin lymphoma of lymph nodes of multiple regions, unspecified Hodgkin lymphoma type (HCC) [facility] Diagnosis New daily persistent headache [facility] Diagnosis Interstitial pulmonary disease (HCC) Postinflammatory pulmonary fibrosis Hodgkin lymphoma of lymph nodes of multiple regions, unspecified Hodgkin lymphoma type (HCC) [facility] Diagnosis Acute cystitis without hematuria- Primary Acute cystitis [facility] Diagnosis Severe persistent asthma without complication- Primary Interstitial pulmonary disease (HCC) Postinflammatory pulmonary fibrosis Hodgkin lymphoma of lymph nodes of multiple regions, unspecified Hodgkin lymphoma type (HCC) [facility] noteNo assessment information availableW[facility] Work [facility]: [facility]* Diagnosis Hydronephrosis, unspecified hydronephrosis type- Primary [facility]* Diagnosis Moderate persistent asthma with (acute) exacerbation- Primary Acute cough Chronic nausea Nausea alone [facility] Diagnosis Projectile vomiting with nausea- Primary [facility] Diagnosis Projectile vomiting with nausea- Primary Early satiety Abnormal weight loss Loss of weight Alternating constipation and diarrhea Other symptoms involving digestive system Rectal bleeding Hemorrhage of rectum and anus [facility] Diagnosis Projectile vomiting with nausea Early satiety Abnormal weight loss Loss of weight [facility]* Diagnosis Treatment not available- Primary Procedure not carried out for other reasons [facility]* Diagnosis Intractable chronic migraine without aura and without status migrainosus- Primary Chronic migraine without aura, with intractable migraine, so stated, without mention of status migrainosus [facility]* Diagnosis Moderate persistent asthma with (acute) exacerbation Acute cough [facility]* Diagnosis Intractable chronic migraine without aura and without status migrainosus Chronic migraine without aura, with intractable migraine, so stated, without mention of status migrainosus documented in this encounter [facility] note* Diagnosis No-show for appointment- Primary [facility]* Diagnosis Bronchitis- Primary Bronchitis, not specified as acute or chronic Wheezing Wheezing documented in this encounter [facility] note* Diagnosis Wheezing [facility]* Diagnosis Insertion of implantable subdermal contraceptive documented in this encounter [facility] note* Diagnosis Medication monitoring encounter- Primary Encounter for therapeutic drug monitoring Intractable chronic migraine without aura and without status migrainosus Chronic migraine without aura, with intractable migraine, so stated, without mention of status migrainosus [facility]* Diagnosis Projectile vomiting with nausea Early satiety [facility]* Diagnosis Encounter for Nexplanon removal- Primary Surveillance of previously prescribed implantable subdermal contraceptive [facility]* Diagnosis Hypothyroidism, unspecified type- Primary Intractable chronic migraine without aura and without status migrainosus Chronic migraine without aura, with intractable migraine, so stated, without mention of status migrainosus documented in this encounter [facility] note* Diagnosis Annual physical exam- Primary Routine general medical examination at a health care facility Screening for cervical cancer Screening for malignant neoplasm of the cervix Routine screening for STI (sexually transmitted infection) Screening examination for venereal disease Herpes simplex vulvovaginitis Encounter for surveillance of implantable subdermal contraceptive Chronic migraine without aura without status migrainosus, not intractable Acquired hypothyroidism Unspecified hypothyroidism Vitamin D deficiency Tobacco use disorder Stage 3b chronic kidney disease (HCC) documented in this encounter [facility] note* Diagnosis Annual physical exam- Primary Routine general medical examination at a health care facility Screening for cervical cancer Screening for malignant neoplasm of the cervix Routine screening for STI (sexually transmitted infection) Screening examination for venereal disease Herpes simplex vulvovaginitis Encounter for surveillance of implantable subdermal contraceptive Chronic migraine without aura without status migrainosus, not intractable Acquired hypothyroidism Unspecified hypothyroidism Vitamin D deficiency Tobacco use disorder Stage 3b chronic kidney disease (HCC) documented in this encounter [facility] note* Diagnosis Hypothyroidism, unspecified type- Primary Intractable chronic migraine without aura and without status migrainosus Chronic migraine without aura, with intractable migraine, so stated, without mention of status migrainosus Moderate persistent asthma without complication Unspecified asthma 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 Tobacco use disorder Drug abuse in remission (HCC) Other, mixed, or unspecified nondependent drug abuse, in remission Bipolar 1 disorder (HCC) Bipolar I disorder, most recent episode (or current) unspecified Generalized anxiety disorder Herpes simplex disease Herpes simplex without mention of complication History of Hodgkin's lymphoma Personal history of Hodgkin's disease documented in this encounter [facility] note* Diagnosis Skin cyst- Primary Sebaceous cyst documented in this encounter [facility] note* Diagnosis Acute cystitis without hematuria- Primary Acute cystitis documented in this encounter [facility] note* Diagnosis Nausea and vomiting, unspecified vomiting type- Primary Left flank pain Abdominal pain, unspecified site Elevated serum creatinine Other nonspecific findings on examination of blood documented in this encounter [facility] note* Diagnosis Congenital solitary kidney- Primary Congenital renal agenesis and dysgenesis Chronic kidney disease, unspecified CKD stage documented in this encounter [facility] note* Diagnosis Chronic kidney disease, unspecified CKD stage- Primary Hypothyroidism, unspecified type Iron deficiency anemia, unspecified iron deficiency anemia type documented in this encounter [facility] note* Diagnosis Frequency of urination- Primary Urinary frequency Left flank pain Abdominal pain, unspecified site Hematuria, unspecified type Nausea Nausea alone Kidney disease Unspecified disorder of kidney and ureter documented in this encounter [facility] note* Diagnosis Unintentional weight loss of more than 10 pounds in 90 days- Primary Hypothyroidism, unspecified type Intractable chronic migraine without aura and without status migrainosus Chronic migraine without aura, with intractable migraine, so stated, without mention of status migrainosus 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 Stage 3 chronic kidney disease, unspecified whether stage 3a or 3b CKD (HCC) Chronic hepatitis C without hepatic coma (HCC) Chronic hepatitis C without mention of hepatic coma Screening for diabetes mellitus Hx of adenomatous polyp of colon Personal history of colonic polyps [facility] Diagnosis Onset Date Resolution Status Admit Date Early satiety acute December 31, 025 9:54am Weight loss acute December 31 9:54am Nausea & vomiting inactive December 9:54am [facility] Work Phone: [facility]* Diagnosis Unintentional weight loss of more than 10 pounds in 90 days [facility]* Diagnosis Unintentional weight loss of more than 10 pounds in 90 days- Primary Hypothyroidism, unspecified type Gallbladder pain Unspecified disorder of gallbladder Gallbladder sludge Other specified disorder of gallbladder History of Hodgkin's lymphoma Personal history of Hodgkin's disease 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 Hydronephrosis of left kidney Hydronephrosis documented in this [facility]* Diagnosis Hypothyroidism, unspecified type- Primary [facility] Diagnosis Hodgkin lymphoma of lymph nodes of multiple regions, unspecified Hodgkin lymphoma type (HCC)- Primary Unintentional weight loss of more than 10 pounds in 90 days History of Hodgkin's lymphoma Personal history of Hodgkin's disease [facility] Diagnosis Hydronephrosis, unspecified hydronephrosis type- Primary Solitary kidney, congenital 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 Hydronephrosis of left kidney Hydronephrosis [facility] Diagnosis Lower abdominal pain Abdominal pain, other specified site Abnormal biliary HIDA scan Nonspecific abnormal results of other specified function study Abnormal gallbladder ultrasound Nonspecific (abnormal) findings on radiological and other examination of biliary tract Other hydronephrosis [facility] Diagnosis Hydronephrosis, unspecified hydronephrosis type Solitary kidney, congenital Congenital renal agenesis and dysgenesis [facility] Diagnosis Nausea and vomiting, unspecified vomiting type- Primary Intractable chronic migraine without aura and without status migrainosus Chronic migraine without aura, with intractable migraine, so stated, without mention of status migrainosus [facility] Diagnosis Biliary colic- Primary Calculus of gallbladder without mention of cholecystitis or obstruction documented in [facility] Dis[facility] Additional Instructions Return with fever, increased pain, new or worsening symptoms. Follow-up with your primary care provider. You may need referral to gastroenterology.[facility] Work Phone: Hospital Discharge instructions Additional Instructions If you develop fever or worsening symptoms please return to the emergency room for further workup.[facility] Work Phone: Hospital Discharge instructions Additional Instructions Your creatinine 2.14 GFR of 30. Slightly improved from your previous labs. Continue oral fluid hydration use Zofran as needed. Try to avoid marijuana use. Keep your follow-up referral with nephrology by your PCP.[facility] Work Phone: Instructions* Attachments The following attachments cannot be sent through Care Everywhere. * Viral Exanthem Discharge Instructions (Guamanian) [facility] Attachments The following attachments cannot be sent through Care Everywhere. * Orthostatic Hypotension (Guamanian) documented in this [facility] for referral (narrative)* Diagnostic Procedure Only (Routine) - Authorized Specialty Diagnoses / Procedures Referred By Contac t Referred To Contact MOLECULAR & FUNCTIONAL IMAGING Diagnoses Hydronephrosis, unspecified hydronephrosis type Chronic renal failure, stage 4 (severe) (HCC) Procedures NM RENAL FLOW/FXN W PHARM KIDNEY IMG MORPHOLOGY VASCULAR FLOW 1 W/RX Talib Sharpe Jr., MD [address] [place] [address] [facility] [address] [place] [address] Referral ID Status Reason Start Date Expiration Date Visits Requested Visits Authorized [id number] Authorized Auto-Generat ed Referral 03/16/2022 04/15/2023 1 1 [facility] for referral (narrative)* Diagnostic Procedure Only (Routine) - Closed Specialty Diagnoses / Procedures Referred By Contac t Referred To Contact MOLECULAR & FUNCTIONAL IMAGING Diagnoses Hydronephrosis, unspecified hydronephrosis type Chronic renal failure, stage 4 (severe) (HCC) Procedures NM RENAL FLOW/FXN W PHARM KIDNEY IMG MORPHOLOGY VASCULAR FLOW 1 W/RX Talib Sharpe Jr., MD [address] [place] [address] Molecular [facility] [address] [place] [address] Referral ID Status Reason Start Date Expiration Date V isits Requested Visits Authorized [id number] Closed Auto-Generate d Referral 03/16/2022 04/15/2023 1 1 [facility] for referral (narrative)* Diagnostic Procedure Only (Routine) - Authorized Specialty Diagnoses / Procedures Referred By Kylah t Referred To Contact MOLECULAR & FUNCTIONAL IMAGING Diagnoses Hydronephrosis, unspecified hydronephrosis type Procedures NM RENAL FLOW/FXN W PHARM KIDNEY IMG MORPHOLOGY VASCULAR FLOW 1 W/[place] [address] [place] [address] Molecular [facility] [address] [place] [address] Referral ID Status Reason Start Date Expiration Date Visits Requested Visits Authorized [id number] Authorized Auto-Generat ed Referral 2 06/24/2023 1 1 [facility] for referral (narrative)* Consultation (Routine) - Pending Review Specialty Diagnoses / Procedures Referred By Contac t Referred To Contact Nephrology Diagnoses Stage 3b chronic kidney disease (HCC) Renal agenesis Procedures [place] OFFICE/OUTPATIENT NEW HIGH MDM 60-74 MINUTES Solomon Judd, DO [address] [place] [address] Kassie Adame MD [address], [place] [address] Referral ID Status Reason Start Date Expiration Date Visits Requested Visits Authorized [id number] Pending Review Specialty Services Required 03/03/2023 03/02/2024 1 1 * Consultation (Routine) - Pending Review Specialty Diagnoses / Procedures Referred By Contac t Referred To Contact Pulmonology Diagnoses Moderate persistent asthma without complication Procedures [place] OFFICE/OUTPATIENT NEW HIGH MDM 60-74 MINUTES Solomon Judd DO [address] [place] [address] [facility] [address] [place] [address] Referral ID Status Reason Start Date Expiration Date Visits Requested Visits Authorized [id number] Pending Review Specialty Services Required 03/03/2023 03/02/2024 1 1 [facility] for referral (narrative)* Outpatient Procedure (Routine) - Pending Review Specialty Diagnoses / Procedures Referred By Kylah t Referred To Contact [facility] Diagnoses Encounter for removal and reinsertion of Nexplanon Procedures NEXPLANON REMOVAL REMOVAL NON-BIODEGRADABLE DRUG DELIVERY IMPLANT Mabel Oshea APRN.CNM [address] [place] [address] [facility] [address] [place] [address] Referral ID Status Reason Start Date Expiration Date Visits Requested Visits Authorized [id number] Pending Review Auto-Generat ed Referral 04/03/2023 04/02/2024 1 1 * Outpatient Procedure (Routine) - Pending Review Specialty Diagnoses / Procedures Referred By Kylah t Referred To Contact [facility] Diagnoses Encounter for removal and reinsertion of Nexplanon Procedures NEXPLANON INSERTION ETONOGESTREL IMPLANT SYSTEM INSERT DRUG IMPLANT DEVICE Mabel Oshea APRN.CNM [address] [place] [address] [address] Referral ID Status Reason Start Date Expiration Date Visits Requested Visits Authorized [id number] Pending Review Auto-Generat ed Referral 04/03/2023 04/02/2024 1 1 [facility] for referral (narrative)* Outpatient Procedure (Routine) - Authorized Specialty Diagnoses / Procedures Referred By Contac t Referred To [facility] Diagnoses Severe persistent asthma without complication Procedures SPIROMETRY BASELINE ONLY SPMTRY W/VC EXPIRATORY BELINDA W/WO MXML VOL VNTJ Aneta Wall MD [address] [facility] [place] [address] [address] Referral ID Status Reason Start Date Expiration Date Visits Requested Visits Authorized [id number] Authorized Auto-Generat ed Referral 3 05/18/2024 1 1 * Outpatient Procedure (Routine) - Authorized Specialty Diagnoses / Procedures Referred By Contac t Referred To Contact [facility] Diagnoses Severe persistent asthma without complication Procedures NITRIC OXIDE, EXHALED NITRIC OXIDE GAS DETERMINATION Aneta Wall MD [address] [place] [address] [address] Referral ID Status Reason Start Date Expiration Date Visits Requested Visits Authorized [id number] Authorized Auto-Generat ed Referral 3 05/18/2024 1 1 * MRI/CT (Routine) - Authorized Specialty Diagnoses / Procedures Referred By Contac t Referred To Contact CT IMAGING Diagnoses Interstitial pulmonary disease (HCC) Hodgkin lymphoma of lymph nodes of multiple regions, unspecified Hodgkin lymphoma type (HCC) Procedures CT CHEST WO IVCON DIAGNOSTIC COMPUTED TOMOGRAPHY THORAX W/O CNTRST Aneta Wall MD [address] [place] [address] [place] [address] Referral ID Status Reason Start Date Expiration Date Visits Requested Visits Authorized [id number] Authorized Auto-Generat ed Referral 3 06/18/2023 1 1 [facility] for referral (narrative)* Diagnostic Procedure Only (Routine) - Pending Review Specialty Diagnoses / Procedures Referred By Contac t Referred To Contact MOLECULAR & FUNCTIONAL IMAGING Diagnoses Hydronephrosis, unspecified hydronephrosis type Procedures NM RENAL FLOW/FXN W PHARM KIDNEY IMG MORPHOLOGY VASCULAR FLOW 1 W/RX Talib Sharpe Jr., MD [address] [place] [address] [facility] [address] [place] [address] Referral ID Status Reason Start Date Expiration Date Visits Requested Visits Authorized [id number] Pending Review Auto-Generat ed Referral 09/13/2023 10/12/2024 1 1 [facility] for referral (narrative)* Diagnostic Procedure Only (Routine) - Authorized Specialty Diagnoses / Procedures Referred By Contac t Referred To Contact MOLECULAR & FUNCTIONAL IMAGING Diagnoses Projectile vomiting with nausea Early satiety Abnormal weight loss Procedures NM GASTRIC EMPTYING SOLID GASTRIC EMPTYING STUDY Glory Chirinos PA-C [address] [place] [address] [facility] [address] [place] [address] Referral ID Status Reason Start Date Expiration Date Visits Requested Visits Authorized [id number] Authorized Auto-Generat ed Referral 01/03/2024 02/01/2025 1 1 T [facility] for referral (narrative)* Diagnostic Procedure Only (Routine) - Closed Specialty Diagnoses / Procedures Referred By yKlah montana Referred To Contact MOLECULAR & FUNCTIONAL IMAGING Diagnoses Projectile vomiting with nausea Early satiety Abnormal weight loss Procedures NM GASTRIC EMPTYING SOLID GASTRIC EMPTYING STUDY Glory Chirinos PA-C [address] [place] [address] [facility] [address] [place] [address] Referral ID Status Reason Start Date Expiration Date V isits Requested Visits Authorized [id number] Closed Auto-Generate d Referral 01/03/2024 02/01/2025 1 1 [facility] for referral (narrative)* Outpatient Procedure (Routine) - New Request Specialty Diagnoses / Procedures Referred By Kylah montana Referred To Contact [facility] Diagnoses Encounter for Nexplanon removal Procedures NEXPLANON REMOVAL REMOVAL NON-BIODEGRADABLE DRUG DELIVERY IMPLANT Mabel Oshea APRN.CNM [address] [place] [address] [facility] [address] [place] [address] Referral ID Status Reason Start Date Expiration Date Visits Requested Visits Authorized [id number] New Request Auto-Generat ed Referral 4 05/10/2025 1 1 [facility] for referral (narrative)No [facility] for referral [facility] Phone: Reason for visit Narrative* Diagnostic Procedure Only (Routine) - Closed Specialty Diagnoses / Procedures Referred By Kylah montana Referred To Contact MOLECULAR & FUNCTIONAL IMAGING Diagnoses Hydronephrosis, unspecified hydronephrosis type Chronic renal failure, stage 4 (severe) (HCC) Procedures NM RENAL FLOW/FXN W PHARM KIDNEY IMG MORPHOLOGY VASCULAR FLOW 1 W/RX Talib Sharpe Jr., MD [address] [place] [address] Molecular [facility] Functional [facility] [address] [place] [address] Referral ID Status Reason Start Date Expiration Date V isits Requested Visits Authorized [id number] Closed Auto-Generate d Referral 03/16/2022 04/15/2023 1 1 [facility] Diagnostic Procedure Only (Routine) - Closed Specialty Diagnoses / Procedures Referred By Contac t Referred To Contact MOLECULAR & FUNCTIONAL IMAGING Diagnoses Hydronephrosis, unspecified hydronephrosis type Solitary kidney, congenital Procedures NM RENAL FLOW/FXN W PHARM KIDNEY IMG MORPHOLOGY VASCULAR FLOW 1 W/RX Juany Anderson MD [address] [place] [address] Phone: tel: fax: Molecular Imaging [address] [place] [address] Phone: tel: Referral ID Status Reason Start Date Expiration Date V isits Requested Visits Authorized [id number] Closed Auto-Generate d Referral 02/06/2025 03/08/2026 1 1 [facility] Summary Purpose Family History No Family History Records Found Relationship Condition Age at Onset Recorded Date/T dilshad mother Depression Unknown Hypertension Unknown Mental disorder Unknown Disorder of thyroid Unknown aunt Diabetes mellitus Unknown grandfather Alcoholism Unknown Malignant neoplasm Unknown Advance Directives No Advanced Directives Records FoundDocuments on File Type Date Recorded 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 Advance Directives and Livin g Will Advance Directives and Livin g Will 03/03/2015 5:32 PM Power of Upset Operator Latest Code Status on File Code Status Date Activated Date Inactivated Comments Full Code 04/28/2016 1:43 PM 04/30/2016 5:02 PM Full Code 02/24/2016 2:28 PM 02/29/2016 4:49 PM Full Code 02/24/2016 12:27 PM 02/24/2016 2:28 PM Full Code 11/09/2015 4:30 AM 11/09/2015 6:51 AM Full Code 07/20/2015 12:17 AM 07/20/2015 3:09 PM Documents on File Type Date Recorded 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 Advance Directives and Livin g Will Advance Directives and Livin g Will 03/03/2015 5:32 PM Power of Upset Operator Latest Code Status on File Code Status Date Activated Date Inactivated Comments Full Code 01/15/2020 1:03 PM Full Code 04/28/2016 1:43 PM 04/30/2016 5:02 PM Full Code 02/24/2016 2:28 PM 02/29/2016 4:49 PM Full Code 02/24/2016 12:27 PM 02/24/2016 2:28 PM Full Code 11/09/2015 4:30 AM 11/09/2015 6:51 AM Advance Directive Response Recorded Date/ Time Advance Directives No July 15, 2019 3:48pm Living Will No October 21, 2021 1:00pm Power of Upset Operator No October 21 1:00pm Advance Directive Response Recorded Date/ Time Advance Directives No July 15, 2019 3:48pm Living Will No October 21, 2021 2:28pm Power of Upset Operator No October 21 2:28pm Advance Directive Response Recorded Date/ Time Advance Directives No July 15, 2019 2:48pm Living Will No August 03 8:39am Power of Upset Operator No August 03, 2023 8:39am Advance Directive Response Recorded Date/ Time Advance Directives No July 15, 2019 3:48pm Living Will No September 09, 2023 1:37pm Power of Upset Operator No September 08 1:37pm Date Activated Date Inactivated Comments 09/10/2023 3:20 PM 09/12/2023 4:35 PM Question Answer Comments Full Code Order Discussed With: Patient Date Activated Date Inactivated Comments 09/10/2023 3:20 PM 09/12/2023 4:35 PM Question Answer Comments Full Code Order Discussed With: Patient Advance Directive Response Recorded Date/ Time Living Will No September 04, 2024 3:33pm Power of Upset Operator No September 04 3:33pm Advance Directives No July 15, 2019 3:48pm Advance Directive Response Recorded Date/ Time Living Will No September 04, 2024 3:33pm Do you have a Healthcare Power of Upset Operator? No September 04, 2024 3:33pm Living Will No October 10, 2024 11:32pm Do you have a Healthcare Power of Upset Operator? No October 10, 2024 11:32pm Advance Directives No July 15, 2019 3:48pm Advance Directive Response Recorded Date/ Time Living Will No September 04, 2024 3:33pm Do you have a Healthcare Power of Upset Operator? No September 04, 2024 3:33pm Living Will No October 10, 2024 11:32pm Do you have a Healthcare Power of Upset Operator? No October 10, 2024 11:32pm Do you have a Healthcare Power of Upset Operator? No November 13, 2024 3:16pm Advance Directives No July 15, 2019 3:48pm Advance Directive Response Recorded Date/ Time Living Will No October 10, 2024 11:32pm Do you have a Healthcare Power of Upset Operator? No October 10, 2024 11:32pm Do you have a Healthcare Power of Upset Operator? No November 13, 2024 3:16pm Advance Directives No July 15, 2019 3:48pm Reason for Referral Status Reason Specialty Diagnoses / Procedures Re ferred By Contact Referred To Contact Authorized Radiology Diagnoses Hydronephrosis, unspecified hydronephrosis type Procedures NM Kidney W Flow and Function W Pharmacological Intervention Rodri Snow MD [address] [place] [address] Specialty Diagnoses / Procedures Referred By Contac t Referred To Contact Cardiology Diagnoses Shortness of breath History of Hodgkin's lymphoma Procedures Transthoracic echocardiogram (TTE) complete with contrast, bubble, strain, and 3D PRN [place] ECHO TTHRC R-T 2D W/WOM-MODE COMPL SPEC&COLR D [place] TTE W OR WO FOL WCON,DOPPLER Solomon Judd DO [address] [place] [address] Referral ID Status Reason Start Date Expiration Date Visits Requested Visits Authorized [id number] Pending Review Perform Procedure 10/25/2022 04/23/2023 1 1 Specialty Diagnoses / Procedures Referred By Contstevie montana Referred To Contact Neurology Diagnoses Orthostatic hypotension Idiopathic peripheral neuropathy History of Hodgkin's lymphoma Procedures [place] OFFICE/OUTPATIENT NEW HIGH MDM 60-74 MINUTES Solomon Judd DO [address] [place] [address] [facility] [address] [place] [address] Referral ID Status Reason Start Date Expiration Date Visits Requested Visits Authorized [id number] Pending Review Specialty Services Required 10/25/2022 10/25/2023 1 1 Specialty Diagnoses / Procedures Referred By Contac t Referred To Contact Nephrology Diagnoses Stage 3b chronic kidney disease (HCC) History of Hodgkin's lymphoma Procedures [place] OFFICE/OUTPATIENT NEW HIGH MDM 60-74 MINUTES Solomon Judd DO [address] [place] [address] Vianca Flaherty MD [address] [place] [address] Referral ID Status Reason Start Date Expiration Date Visits Requested Visits Authorized [id number] Pending Review Specialty Services Required 10/25/2022 10/25/2023 1 1 Specialty Diagnoses / Procedures [facility] Referred To Contact Diagnoses Shortness of breath Procedures Complete PFT pre and post bronchodilator Solomon Judd DO [address] [place] [address] Referral ID Status Reason Start Date Expiration Date V isits Requested Visits Authorized [id number] Incomplete 10/25/2022 04/23/2023 1 1 Specialty Diagnoses / Procedures [facility] Referred To Contact Pulmonology Diagnoses Shortness of breath Procedures Complete PFT pre and post bronchodilator Solomon Judd DO [address] [place] [address] [address] [facility] [address] [place] [address] Referral ID Status Reason Start Date Expiration Date V isits Requested Visits Authorized [id number] Authorized 10/25/2022 04/23/2023 1 1 Referral ID Status Reason Start Date Expiration Date V isits Requested Visits Authorized [id number] Closed Perform Procedure 10/25/2022 04/23/2023 1 1 Specialty Diagnoses / Procedures [facility] Referred To Contact Neurology Diagnoses Intractable chronic migraine without aura and without status migrainosus Procedures REFERRAL TO GENERAL NEUROLOGY [place] OFFICE/OUTPATIENT NEW HIGH MDM 60-74 MINUTES Bethany Gil PA-C [address] [place] [address] Referral ID Status Reason Start Date Expiration Date Visits Requested Visits Authorized [id number] Authorized PCP Requested Referral 3 04/04/2024 1 1 Specialty Diagnoses / Procedures Referred By Contac t Referred To Contact MR IMAGING Diagnoses New daily persistent headache Procedures MRI BRAIN WO IVCON MRI BRAIN BRAIN STEM W/O CONTRAST MATERIAL Bethany Gil PA-C [address] [place] [address] [facility] Referral ID Status Reason Start Date Expiration Date Visits Requested Visits Authorized [id number] Authorized Auto-Generat ed Referral 3 06/04/2023 1 1 Specialty Diagnoses / Procedures Referred By Contac t Referred [facility] Diagnoses Obstructive sleep apnea Procedures HOME SLEEP APNEA TEST (HSAT) SLEEP STD AIRFLOW HRT RATE&O2 SAT EFFORT UNATT Bethany Gil PA-C [address] [place] [address] [facility] [address] [place] [id number] Referral ID Status Reason Start Date Expiration Date Visits Requested Visits Authorized [id number] Authorized Auto-Generat ed Referral 3 04/04/2024 1 1 Referral ID Status Reason Start Date Expiration Date V isits Requested Visits Authorized [id number] Closed Auto-Generate d Referral 04/05/2023 06/04/2023 1 1 Specialty Diagnoses / Procedures Referred By Contac t Referred To Contact CT IMAGING Diagnoses Interstitial pulmonary disease (HCC) Hodgkin lymphoma of lymph nodes of multiple regions, unspecified Hodgkin lymphoma type (HCC) Procedures CT CHEST WO IVCON DIAGNOSTIC COMPUTED TOMOGRAPHY THORAX W/O Aneta Rose MD [address] [place] [address] [place] [address] Referral ID Status Reason Start Date Expiration Date V isits Requested Visits Authorized [id number] Closed Auto-Generate d Referral 04/19/2023 06/18/2023 1 1 Specialty Diagnoses / Procedures Referred By Contac t Referred To Contact Gastroenterology Diagnoses Projectile vomiting with nausea Procedures CONSULT TO GASTROENTEROLOGY OFFICE/OUTPATIENT [facility] 60 MINUTES Thaddeus Shell APRN.CNP [address] [place] [address] Referral ID Status Reason Start Date Expiration Date Visits Requested Visits Authorized [id number] Authorized PCP Requested Referral 11/23/2023 11/22/2024 1 1 Specialty Diagnoses / Procedures Referred By Contac t Referred To Contact Diagnoses Intractable chronic migraine without aura and without status migrainosus Procedures PROVIDER ORDERED FOLLOW UP OFFICE/OUTPATIENT [facility] [address] [place] [address] [place] [address] Referral ID Status Reason Start Date Expiration Date Visits Requested Visits Authorized [id number] Authorized PCP Requested Referral 4 01/18/2025 1 1 Specialty Diagnoses / Procedures Referred By Contac t Referred To Contact Diagnoses Intractable chronic migraine without aura and without status migrainosus Bethany Gil PA-C [address] [place] [address] Referral ID Status Reason Start Date Expiration Date V isits Requested Visits Authorized [id number] Pending Review 04/04/2024 06/03/2024 1 1 Referral ID Status Reason Start Date Expiration Date V isits Requested Visits Authorized [id number] Pending Review 05/10/2024 07/09/2024 1 1 Specialty Diagnoses / Procedures Referred By Contac t Referred To Contact Diagnoses Hypothyroidism, unspecified type Procedures ESTABLISH WITH PRIMARY CARE NEW PATIENT OFFICE/OUTPATIENT [facility] 60 MINUTES Bethany Gil PA-C [address] [place] [address] Referral ID Status Reason Start Date Expiration Date Visits Requested Visits Authorized [id number] Authorized PCP Requested Referral 05/10/2025 1 1 Specialty Diagnoses / Procedures Referred By Contac t Referred To Contact Diagnoses Chronic migraine without aura without status migrainosus, not intractable Solomon Judd, DO [address] [place] [address] Referral ID Status Reason Start Date Expiration Date V isits Requested Visits Authorized [id number] Pending Review 1 1 Specialty Diagnoses / Procedures Referred By Contac t Referred To Contact Obstetrics and Gynecology Diagnoses Encounter for surveillance of implantable subdermal contraceptive Procedures [place] OFFICE/OUTPATIENT [facility] MDM 60-74 MINUTES Solomon Judd, DO 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 [address] [place] [address] [place] [address] Referral ID Status Reason Start Date Expiration Date Visits Requested Visits Authorized [id number] Pending Review Specialty Services Required 09/01/2022 09/01/2023 1 1 Specialty Diagnoses / Procedures Referred By Contac t Referred To Contact Hematology/Oncology / [facility] DEPARTMENT Diagnoses History of Hodgkin's lymphoma Procedures CONSULT TO HEMATOLOGY OFFICE/OUTPATIENT NEW HIGH MDM 60 MINUTES Pam Yost, DESK REPORTER.AIR TRANSPORTATION PROVIDER [address] [place] [address] Bob Figueroa DO [address] [place] [address] Referral ID Status Reason Start Date Expiration Date Visits Requested Visits Authorized [id number] Authorized PCP Requested Referral 07/11/2024 07/11/2025 1 1 History of Present Illness * Beatrice Gonzalez RN - 12/06/2019 1:00 PM EDT Pt in [facility] for Lasix renal scan. Procedure explained to [...] hydronephrosis type Discharge Instructions * Instructions* Solomon Wall I., RN - 01/15/2020 Upper GI Endoscopy: [...] mild sore throat. You may use an [id number] chloraseptic spray, gargle with warm salt water, [...] DEPARTMENT documented in this encounter Chief Complaint and Reason for Visit Chief Complaint SYMPTOMS/ COVID TEST FOR WORK COVID POS DETOX HEADACHE MENTAL HEALTH ACUTE OPIATE WITHDRAWAL Reason for Visit COVID-19 Desire for detoxification Drug abuse History of lymphoma Opiate withdrawal Chief Complaint COVID POS DETOX HEADACHE MENTAL HEALTH ACUTE OPIATE WITHDRAWAL ACUTE OPIATE WITHDRAWAL ACUTE OPIATE WITHDRAWAL ACUTE OPIATE WITHDRAWAL Reason for Visit Desire for detoxific ation Drug abuse History of lymphoma Opiate withdrawal Severe protein-calorie malnutrition Hypokalemia Chief Complaint HALLUCINATIONS Chief Complaint HALLUCINATIONS FLANK Chief Complaint Admit Date N/V September 04, 2024 3:0 4pm Chief Complaint Admit Date N/V September 04, 2024 3:0 4pm n/v October 10, 2024 11: 32pm Chief Complaint Admit Date N/V September 04, 2024 3:0 4pm n/v October 10, 2024 11: 32pm N/V November 13, 2024 2:33p m Chief Complaint Admit Date N/V September 04, 2024 3:0 4pm n/v October 10, 2024 11: 32pm N/V November 13, 2024 2:33p m LOSING APPROX 10LBS/MONTH W/OUT TRYING J carlos 2024 9:54am Reason for Visit Admit Date Early satiety December 31, 2024 9:54a m Weight loss December 31, 2024 9:54a m Nausea & vomiting December 31, 2024 9:54a m Chief Complaint Admit Date n/v October 10, 2024 11: 32pm N/V November 13, 2024 2:33p m LOSING APPROX 10LBS/MONTH W/OUT TRYING J carlos 2024 9:54am NAUSEA- include spleen January 03, 2025 8 :40am Reason for Visit Admit Date Early satiety December 31, 2024 9:54a m Weight loss December 31, 2024 9:54a m Chief Complaint Admit Date n/v October 10, 2024 11: 32pm N/V November 13, 2024 2:33p m LOSING APPROX 10LBS/MONTH W/OUT TRYING J carlos 2024 9:54am NAUSEA- include spleen January 03, 2025 8 :40am EARLY SATIETY January 16, 2025 12:3 1pm Chief Complaint nausea/vomiting, headache Health Concerns Infection Onset Date Last Indicated Resolved Time COVID-19 Rule-Out 05/26/2022 05/26/2022 05/26/2022 11:39 PM EST Influenza 05/26/2022 05/26/2022 06/02/2022 8:51 PM EST Additional Source Comments INFORMATION SOURCE (unrecogn ized section and content) DATE CREATED AUTHOR 12/12/2017 [facility] DATE CREATED AUTHOR AUTHOR'S ORGANIZ ATION 12/13/2017 [facility] DATE CREATED AUTHOR AUTHOR'S ORGANIZ ATION 12/23/2017 [facility] DATE CREATED AUTHOR AUTHOR'S ORGANIZ ATION 01/22/2020 [facility] DATE CREATED AUTHOR AUTHOR'S ORGANIZ ATION 07/20/2020 [facility] [place] DATE CREATED AUTHOR AUTHOR'S ORGANIZ ATION 07/20/2021 [facility] DATE CREATED AUTHOR AUTHOR'S ORGANIZ ATION 06/23/2022 [facility] DATE CREATED AUTHOR AUTHOR'S ORGANIZ ATION 06/23/2022 [facility] DATE CREATED AUTHOR AUTHOR'S ORGANIZ ATION 09/16/2023 [facility] DATE CREATED AUTHOR AUTHOR'S ORGANIZ ATION 03/24/2024 [facility] DATE CREATED AUTHOR AUTHOR'S ORGANIZ ATION 04/10/2024 [facility] DATE CREATED AUTHOR AUTHOR'S ORGANIZ ATION 02/28/2025 [facility] DATE CREATED AUTHOR AUTHOR'S ORGANIZ ATION 03/08/2025 [facility] DATE CREATED AUTHOR AUTHOR'S ORGANIZ ATION 03/13/2025 [facility] DATE CREATED AUTHOR AUTHOR'S ORGANIZ ATION 03/19/2025 [facility] Goals (unrecognized section and content) Goals may be documented in a n alternate sectionGoals may be documented in an alternate sectionGoals may be documented in an alternate sectionGoals may be documented in an alternate sectionGoals may be documented in an alternate sectionGoals may be documented in an alternate sectionGoals may be documented in an alternate sectionGoals may be documented in an alternate sectionGoals may be documented in an alternate sectionGoals may be documented in an alternate section Source Comments (unrecognize d section and content) In the event this informatio n is protected by the Federal Confidentiality of Alcohol and Drug Abuse Patient Records regulations: The Federal rules restrict any use of the information to criminally investigate or prosecute any alcohol or drug abuse patient.[facility] the event this information is protected by the Federal Confidentiality of Alcohol and Drug Abuse Patient Records regulations: The Federal rules restrict any use of the information to criminally investigate or prosecute any alcohol or drug abuse patient.[facility] HospitalIn the event this information is protected by the Federal Confidentiality of Alcohol and Drug Abuse Patient Records regulations: The Federal rules restrict any use of the information to criminally investigate or prosecute any alcohol or drug abuse patient.[facility]In the event this information is protected by the Federal Confidentiality of Alcohol and Drug Abuse Patient Records regulations: The Federal rules restrict any use of the information to criminally investigate or prosecute any alcohol or drug abuse patient.[facility] HospitalIn the event this information is protected by the Federal Confidentiality of Alcohol and Drug Abuse Patient Records regulations: The Federal rules restrict any use of the information to criminally investigate or prosecute any alcohol or drug abuse patient.[facility] HospitalIn the event this information is protected by the Federal Confidentiality of Alcohol and Drug Abuse Patient Records regulations: The Federal rules restrict any use of the information to criminally investigate or prosecute any alcohol or drug abuse patient.[facility] HospitalIn the event this information is protected by the Federal Confidentiality of Alcohol and Drug Abuse Patient Records regulations: The Federal rules restrict any use of the information to criminally investigate or prosecute any alcohol or drug abuse patient.[facility] HospitalIn the event this information is protected by the Federal Confidentiality of Alcohol and Drug Abuse Patient Records regulations: The Federal rules restrict any use of the information to criminally investigate or prosecute any alcohol or drug abuse patient.[facility] HospitalIn the event this information is protected by the Federal Confidentiality of Alcohol and Drug Abuse Patient Records regulations: The Federal rules restrict any use of the information to criminally investigate or prosecute any alcohol or drug abuse patient.[facility] the event this information is protected by the Federal Confidentiality of Alcohol and Drug Abuse Patient Records regulations: The Federal rules restrict any use of the information to criminally investigate or prosecute any alcohol or drug abuse patient.[facility] HospitalIn the event this information is protected by the Federal Confidentiality of Alcohol and Drug Abuse Patient Records regulations: The Federal rules restrict any use of the information to criminally investigate or prosecute any alcohol or drug abuse patient.[facility] HospitalIn the event this information is protected by the Federal Confidentiality of Alcohol and Drug Abuse Patient Records regulations: The Federal rules restrict any use of the information to criminally investigate or prosecute any alcohol or drug abuse patient.[facility] the event this information is protected by the Federal Confidentiality of Alcohol and Drug Abuse Patient Records regulations: The Federal rules restrict any use of the information to criminally investigate or prosecute any alcohol or drug abuse patient.[facility] HospitalIn the event this information is protected by the Federal Confidentiality of Alcohol and Drug Abuse Patient Records regulations: The Federal rules restrict any use of the information to criminally investigate or prosecute any alcohol or drug abuse patient.[facility] HospitalIn the event this information is protected by the Federal Confidentiality of Alcohol and Drug Abuse Patient Records regulations: The Federal rules restrict any use of the information to criminally investigate or prosecute any alcohol or drug abuse patient.[facility] HospitalIn the event this information is protected by the Federal Confidentiality of Alcohol and Drug Abuse Patient Records regulations: The Federal rules restrict any use of the information to criminally investigate or prosecute any alcohol or drug abuse patient.[facility] HospitalIn the event this information is protected by the Federal Confidentiality of Alcohol and Drug Abuse Patient Records regulations: The Federal rules restrict any use of the information to criminally investigate or prosecute any alcohol or drug abuse patient.[facility] HospitalIn the event this information is protected by the Federal Confidentiality of Alcohol and Drug Abuse Patient Records regulations: The Federal rules restrict any use of the information to criminally investigate or prosecute any alcohol or drug abuse patient.[facility] HospitalIn the event this information is protected by the Federal Confidentiality of Alcohol and Drug Abuse Patient Records regulations: The Federal rules restrict any use of the information to criminally investigate or prosecute any alcohol or drug abuse patient.[facility] HospitalIn the event this information is protected by the Federal Confidentiality of Alcohol and Drug Abuse Patient Records regulations: The Federal rules restrict any use of the information to criminally investigate or prosecute any alcohol or drug abuse patient.[facility] HospitalIn the event this information is protected by the Federal Confidentiality of Alcohol and Drug Abuse Patient Records regulations: The Federal rules restrict any use of the information to criminally investigate or prosecute any alcohol or drug abuse patient.[facility] HospitalIn the event this information is protected by the Federal Confidentiality of Alcohol and Drug Abuse Patient Records regulations: The Federal rules restrict any use of the information to criminally investigate or prosecute any alcohol or drug abuse patient.[facility] HospitalIn the event this information is protected by the Federal Confidentiality of Alcohol and Drug Abuse Patient Records regulations: The Federal rules restrict any use of the information to criminally investigate or prosecute any alcohol or drug abuse patient.[facility] HospitalIn the event this information is protected by the Federal Confidentiality of Alcohol and Drug Abuse Patient Records regulations: The Federal rules restrict any use of the information to criminally investigate or prosecute any alcohol or drug abuse patient.[facility] HospitalIn the event this information is protected by the Federal Confidentiality of Alcohol and Drug Abuse Patient Records regulations: The Federal rules restrict any use of the information to criminally investigate or prosecute any alcohol or drug abuse patient.[facility] HospitalIn the event this information is protected by the Federal Confidentiality of Alcohol and Drug Abuse Patient Records regulations: The Federal rules restrict any use of the information to criminally investigate or prosecute any alcohol or drug abuse patient.[facility] HospitalIn the event this information is protected by the Federal Confidentiality of Alcohol and Drug Abuse Patient Records regulations: The Federal rules restrict any use of the information to criminally investigate or prosecute any alcohol or drug abuse patient.[facility] HospitalIn the event this information is protected by the Federal Confidentiality of Alcohol and Drug Abuse Patient Records regulations: The Federal rules restrict any use of the information to criminally investigate or prosecute any alcohol or drug abuse patient.[facility] HospitalIn the event this information is protected by the Federal Confidentiality of Alcohol and Drug Abuse Patient Records regulations: The Federal rules restrict any use of the information to criminally investigate or prosecute any alcohol or drug abuse patient.[facility] HospitalIn the event this information is protected by the Federal Confidentiality of Alcohol and Drug Abuse Patient Records regulations: The Federal rules restrict any use of the information to criminally investigate or prosecute any alcohol or drug abuse patient.[facility] HospitalIn the event this information is protected by the Federal Confidentiality of Alcohol and Drug Abuse Patient Records regulations: The Federal rules restrict any use of the information to criminally investigate or prosecute any alcohol or drug abuse patient.[facility] HospitalIn the event this information is protected by the Federal Confidentiality of Alcohol and Drug Abuse Patient Records regulations: The Federal rules restrict any use of the information to criminally investigate or prosecute any alcohol or drug abuse patient.[facility] HospitalIn the event this information is protected by the Federal Confidentiality of Alcohol and Drug Abuse Patient Records regulations: The Federal rules restrict any use of the information to criminally investigate or prosecute any alcohol or drug abuse patient.[facility] HospitalIn the event this information is protected by the Federal Confidentiality of Alcohol and Drug Abuse Patient Records regulations: The Federal rules restrict any use of the information to criminally investigate or prosecute any alcohol or drug abuse patient.[facility] HospitalIn the event this information is protected by the Federal Confidentiality of Alcohol and Drug Abuse Patient Records regulations: The Federal rules restrict any use of the information to criminally investigate or prosecute any alcohol or drug abuse patient.[facility] HospitalIn the event this information is protected by the Federal Confidentiality of Alcohol and Drug Abuse Patient Records regulations: The Federal rules restrict any use of the information to criminally investigate or prosecute any alcohol or drug abuse patient.[facility] HospitalIn the event this information is protected by the Federal Confidentiality of Alcohol and Drug Abuse Patient Records regulations: The Federal rules restrict any use of the information to criminally investigate or prosecute any alcohol or drug abuse patient.[facility] HospitalIn the event this information is protected by the Federal Confidentiality of Alcohol and Drug Abuse Patient Records regulations: The Federal rules restrict any use of the information to criminally investigate or prosecute any alcohol or drug abuse patient.[facility] HospitalIn the event this information is protected by the Federal Confidentiality of Alcohol and Drug Abuse Patient Records regulations: The Federal rules restrict any use of the information to criminally investigate or prosecute any alcohol or drug abuse patient.[facility] HospitalIn the event this information is protected by the Federal Confidentiality of Alcohol and Drug Abuse Patient Records regulations: The Federal rules restrict any use of the information to criminally investigate or prosecute any alcohol or drug abuse patient.[facility] HospitalIn the event this information is protected by the Federal Confidentiality of Alcohol and Drug Abuse Patient Records regulations: The Federal rules restrict any use of the information to criminally investigate or prosecute any alcohol or drug abuse patient.[facility] HospitalIn the event this information is protected by the Federal Confidentiality of Alcohol and Drug Abuse Patient Records regulations: The Federal rules restrict any use of the information to criminally investigate or prosecute any alcohol or drug abuse patient.[facility] HospitalIn the event this information is protected by the Federal Confidentiality of Alcohol and Drug Abuse Patient Records regulations: The Federal rules restrict any use of the information to criminally investigate or prosecute any alcohol or drug abuse patient.[facility] HospitalIn the event this information is protected by the Federal Confidentiality of Alcohol and Drug Abuse Patient Records regulations: The Federal rules restrict any use of the information to criminally investigate or prosecute any alcohol or drug abuse patient.[facility] HospitalIn the event this information is protected by the Federal Confidentiality of Alcohol and Drug Abuse Patient Records regulations: The Federal rules restrict any use of the information to criminally investigate or prosecute any alcohol or drug abuse patient.[facility] HospitalIn the event this information is protected by the Federal Confidentiality of Alcohol and Drug Abuse Patient Records regulations: The Federal rules restrict any use of the information to criminally investigate or prosecute any alcohol or drug abuse patient.[facility] HospitalIn the event this information is protected by the Federal Confidentiality of Alcohol and Drug Abuse Patient Records regulations: The Federal rules restrict any use of the information to criminally investigate or prosecute any alcohol or drug abuse patient.[facility] HospitalIn the event this information is protected by the Federal Confidentiality of Alcohol and Drug Abuse Patient Records regulations: The Federal rules restrict any use of the information to criminally investigate or prosecute any alcohol or drug abuse patient.[facility] HospitalIn the event this information is protected by the Federal Confidentiality of Alcohol and Drug Abuse Patient Records regulations: The Federal rules restrict any use of the information to criminally investigate or prosecute any alcohol or drug abuse patient.[facility] HospitalIn the event this information is protected by the Federal Confidentiality of Alcohol and Drug Abuse Patient Records regulations: The Federal rules restrict any use of the information to criminally investigate or prosecute any alcohol or drug abuse patient.[facility] HospitalIn the event this information is protected by the Federal Confidentiality of Alcohol and Drug Abuse Patient Records regulations: The Federal rules restrict any use of the information to criminally investigate or prosecute any alcohol or drug abuse patient.[facility] HospitalIn the event this information is protected by the Federal Confidentiality of Alcohol and Drug Abuse Patient Records regulations: The Federal rules restrict any use of the information to criminally investigate or prosecute any alcohol or drug abuse patient.[facility] HospitalIn the event this information is protected by the Federal Confidentiality of Alcohol and Drug Abuse Patient Records regulations: The Federal rules restrict any use of the information to criminally investigate or prosecute any alcohol or drug abuse patient.[facility] HospitalIn the event this information is protected by the Federal Confidentiality of Alcohol and Drug Abuse Patient Records regulations: The Federal rules restrict any use of the information to criminally investigate or prosecute any alcohol or drug abuse patient.[facility] HospitalIn the event this information is protected by the Federal Confidentiality of Alcohol and Drug Abuse Patient Records regulations: The Federal rules restrict any use of the information to criminally investigate or prosecute any alcohol or drug abuse patient.[facility] HospitalIn the event this information is protected by the Federal Confidentiality of Alcohol and Drug Abuse Patient Records regulations: The Federal rules restrict any use of the information to criminally investigate or prosecute any alcohol or drug abuse patient.[facility] HospitalIn the event this information is protected by the Federal Confidentiality of Alcohol and Drug Abuse Patient Records regulations: The Federal rules restrict any use of the information to criminally investigate or prosecute any alcohol or drug abuse patient.[facility] HospitalIn the event this information is protected by the Federal Confidentiality of Alcohol and Drug Abuse Patient Records regulations: The Federal rules restrict any use of the information to criminally investigate or prosecute any alcohol or drug abuse patient.[facility] HospitalIn the event this information is protected by the Federal Confidentiality of Alcohol and Drug Abuse Patient Records regulations: The Federal rules restrict any use of the information to criminally investigate or prosecute any alcohol or drug abuse patient.[facility] the event this information is protected by the Federal Confidentiality of Alcohol and Drug Abuse Patient Records regulations: The Federal rules restrict any use of the information to criminally investigate or prosecute any alcohol or drug abuse patient.[facility] [facility] HospitalIn the event this information is protected by the Federal Confidentiality of Alcohol and Drug Abuse Patient Records regulations: The Federal rules restrict any use of the information to criminally investigate or prosecute any alcohol or drug abuse patient.[facility] HospitalIn the event this information is protected by the Federal Confidentiality of Alcohol and Drug Abuse Patient Records regulations: The Federal rules restrict any use of the information to criminally investigate or prosecute any alcohol or drug abuse patient.[facility]In the event this information is protected by the Federal Confidentiality of Alcohol and Drug Abuse Patient Records regulations: The Federal rules restrict any use of the information to criminally investigate or prosecute any alcohol or drug abuse patient.[facility] HospitalIn the event this information is protected by the Federal Confidentiality of Alcohol and Drug Abuse Patient Records regulations: The Federal rules restrict any use of the information to criminally investigate or prosecute any alcohol or drug abuse patient.[facility] HospitalIn the event this information is protected by the Federal Confidentiality of Alcohol and Drug Abuse Patient Records regulations: The Federal rules restrict any use of the information to criminally investigate or prosecute any alcohol or drug abuse patient.[facility] HospitalIn the event this information is protected by the Federal Confidentiality of Alcohol and Drug Abuse Patient Records regulations: The Federal rules restrict any use of the information to criminally investigate or prosecute any alcohol or drug abuse patient.[facility] HospitalIn the event this information is protected by the Federal Confidentiality of Alcohol and Drug Abuse Patient Records regulations: The Federal rules restrict any use of the information to criminally investigate or prosecute any alcohol or drug abuse patient.[facility] HospitalIn the event this information is protected by the Federal Confidentiality of Alcohol and Drug Abuse Patient Records regulations: The Federal rules restrict any use of the information to criminally investigate or prosecute any alcohol or drug abuse patient.[facility] HospitalIn the event this information is protected by the Federal Confidentiality of Alcohol and Drug Abuse Patient Records regulations: The Federal rules restrict any use of the information to criminally investigate or prosecute any alcohol or drug abuse patient.[facility] HospitalIn the event this information is protected by the Federal Confidentiality of Alcohol and Drug Abuse Patient Records regulations: The Federal rules restrict any use of the information to criminally investigate or prosecute any alcohol or drug abuse patient.[facility] HospitalIn the event this information is protected by the Federal Confidentiality of Alcohol and Drug Abuse Patient Records regulations: The Federal rules restrict any use of the information to criminally investigate or prosecute any alcohol or drug abuse patient.[facility] HospitalIn the event this information is protected by the Federal Confidentiality of Alcohol and Drug Abuse Patient Records regulations: The Federal rules restrict any use of the information to criminally investigate or prosecute any alcohol or drug abuse patient.[facility] HospitalIn the event this information is protected by the Federal Confidentiality of Alcohol and Drug Abuse Patient Records regulations: The Federal rules restrict any use of the information to criminally investigate or prosecute any alcohol or drug abuse patient.[facility] HospitalIn the event this information is protected by the Federal Confidentiality of Alcohol and Drug Abuse Patient Records regulations: The Federal rules restrict any use of the information to criminally investigate or prosecute any alcohol or drug abuse patient.[facility] HospitalIn the event this information is protected by the Federal Confidentiality of Alcohol and Drug Abuse Patient Records regulations: The Federal rules restrict any use of the information to criminally investigate or prosecute any alcohol or drug abuse patient.[facility] HospitalIn the event this information is protected by the Federal Confidentiality of Alcohol and Drug Abuse Patient Records regulations: The Federal rules restrict any use of the information to criminally investigate or prosecute any alcohol or drug abuse patient.[facility] HospitalIn the event this information is protected by the Federal Confidentiality of Alcohol and Drug Abuse Patient Records regulations: The Federal rules restrict any use of the information to criminally investigate or prosecute any alcohol or drug abuse patient.[facility] HospitalIn the event this information is protected by the Federal Confidentiality of Alcohol and Drug Abuse Patient Records regulations: The Federal rules restrict any use of the information to criminally investigate or prosecute any alcohol or drug abuse patient.[facility] HospitalIn the event this information is protected by the Federal Confidentiality of Alcohol and Drug Abuse Patient Records regulations: The Federal rules restrict any use of the information to criminally investigate or prosecute any alcohol or drug abuse patient.[facility] HospitalIn the event this information is protected by the Federal Confidentiality of Alcohol and Drug Abuse Patient Records regulations: The Federal rules restrict any use of the information to criminally investigate or prosecute any alcohol or drug abuse patient.[facility] HospitalIn the event this information is protected by the Federal Confidentiality of Alcohol and Drug Abuse Patient Records regulations: The Federal rules restrict any use of the information to criminally investigate or prosecute any alcohol or drug abuse patient.[facility] HospitalIn the event this information is protected by the Federal Confidentiality of Alcohol and Drug Abuse Patient Records regulations: The Federal rules restrict any use of the information to criminally investigate or prosecute any alcohol or drug abuse patient.[facility] HospitalIn the event this information is protected by the Federal Confidentiality of Alcohol and Drug Abuse Patient Records regulations: The Federal rules restrict any use of the information to criminally investigate or prosecute any alcohol or drug abuse patient.[facility] HospitalIn the event this information is protected by the Federal Confidentiality of Alcohol and Drug Abuse Patient Records regulations: The Federal rules restrict any use of the information to criminally investigate or prosecute any alcohol or drug abuse patient.[facility] HospitalIn the event this information is protected by the Federal Confidentiality of Alcohol and Drug Abuse Patient Records regulations: The Federal rules restrict any use of the information to criminally investigate or prosecute any alcohol or drug abuse patient.[facility] Reason for Visit (unrecogniz ed section and content) Reason Comments Kidney Problem Reason Comments Orders Reason Comments Rash States needs refill on meds Reason Onset Date Comments results 10/13/2022 Reason Onset Date Comments Rash 10/12/2022 Reason Comments Rash Rash all over body. Started on hands. Patches on knees and elbows. Denies changes in soaps and fragrances. Seen Dr. Judd 2 days ago for this but it [...] Pain 10/21/2022 Reason Comments ER Follow-up From [facility] in [place] on 10/21/22 re: Chest Pain Reason Comments Med Refill Specialty Diagnoses / Procedures Referred By Contac t Referred To Contact Cardiology Diagnoses Shortness of breath History of Hodgkin's lymphoma Procedures Transthoracic echocardiogram (TTE) complete with contrast, bubble, strain, and 3D PRN [place] ECHO TTHRC R-T 2D W/WOM-MODE COMPL SPEC&COLR D [place] TTE W OR WO FOL WCON,DOPPLER Solomon Judd, DO [address] [facility], [address] [place] [address] Referral ID Status Reason Start Date Expiration Date V isits Requested Visits Authorized [id number] Closed Perform Procedure 10/25/2022 04/23/2023 1 1 Reason Comments 6 Month Follow-up Appt on Hypothyroidi sm, Migraine discuss ECHO Reason Comments Discussion Reason Comments bh consult Reason Comments New Patient Reason Comments New Botox Referral Submitted Reason Comments New Patient Shortness of Breath Reason Comments Insurance Authorization Reason Comments Results Chest CT Specialty Diagnoses / Procedures Referred By Contac t Referred To Contact [facility] IMAGING Diagnoses New daily persistent headache Procedures MRI BRAIN WO IVCON MRI BRAIN BRAIN STEM W/O CONTRAST MATERIAL Bethany Gil PA-C [address] [place] [address] [place] [address] Referral ID Status Reason Start Date Expiration Date V isits Requested Visits Authorized [id number] Closed Auto-Generate d Referral 04/05/2023 06/04/2023 [address] Specialty Diagnoses / Procedures Referred By Contac t Referred To Contact CT IMAGING Diagnoses Interstitial pulmonary disease (HCC) Hodgkin lymphoma of lymph nodes of multiple regions, unspecified Hodgkin lymphoma type (HCC) Procedures CT CHEST WO IVCON DIAGNOSTIC COMPUTED TOMOGRAPHY THORAX W/O Aneta Rose MD [address] [place] [address] [place] [address] Referral ID Status Reason Start Date Expiration Date V isits Requested Visits Authorized [id number] Closed Auto-Generate d Referral 04/19/2023 06/18/2023 1 [...] Appointment Reason Onset Date Comments Hospitalized 08/08/2023 Reason Comments Renal Scan Orders and Follow up Reason Comments Appointment Botox overdue Reason Comments Cough sob x 2-3 days, naus ea x 1 year Reason Comments Results Reason Comments Nausea & Vomiting Stomach pain, nausea , vomiting x 2 days Reason Comments Vomiting ER 11/12/23 Specialty Diagnoses / Procedures Referred By Contac t Referred To Contact Gastroenterology Diagnoses Projectile vomiting with nausea Procedures CONSULT TO GASTROENTEROLOGY OFFICE/OUTPATIENT [facility] 60 MINUTES Thaddeus Shell APRN.AIR TRANSPORTATION PROVIDER [address] [place] [address] Referral ID Status Reason Start Date Expiration Date V isits Requested Visits Authorized [id number] Closed PCP Requested Referral 11/23/2023 11/22/2024 1 1 Reason Comments Radiology [place] Specialty Diagnoses / Procedures Referred By Contac t Referred To Contact MOLECULAR & FUNCTIONAL IMAGING Diagnoses Projectile vomiting with nausea Early satiety Abnormal weight loss Procedures NM GASTRIC EMPTYING SOLID GASTRIC EMPTYING STUDY Glory Chirinos PA-C [address] [place] [address] Molecular & Functional Imaging [address] [place] [address] Referral ID Status Reason Start Date Expiration Date V isits Requested Visits Authorized [id number] Closed Auto-Generate d Referral 01/03/2024 02/01/2025 1 1 Reason Comments No Show Reason Comments Headache Reason Comments Follow Up Reason Comments Migraine Headache Reason Comments Cough Cough, fatigue, ST, congestion and fever x 4 days Reason Onset Date Comments Refill Request 05/09/2024 Reason Onset Date Comments Refill Request 05/09/2024 Reason Comments Insurance Authorization [employer] Reason Comments Annual Exam Gynecologic Exam Reason Comments Establish Care Reason Comments Problem Visit Reason Comments Urinary Frequency urgency, flank pain and nausea x 1 week Reason Onset Date Comments Results 09/04/2024 Reason Comments Nausea & Vomiting Nausea and vomiting for 3-4 weeks. Abd pain and middle back started 2 days ago. Reason Comments Orders Reason Comments Urinary Problem Frequency, Left side flank pain, nausea x 2 days Reason Comments Weight Problem About 6 pounds every 2-3 weeks. Reason Onset Date Comments Xray Results 12/31/2024 Reason Comments Lab Orders Reason Comments Consult Specialty Diagnoses / Procedures Referred By Contac t Referred To Contact Diagnoses Congenital solitary kidney Stage 3 chronic kidney disease, unspecified whether stage 3a or 3b CKD (HCC) Procedures CONSULT TO NEPHROLOGY OFFICE/OUTPATIENT [facility] 60 MINUTES Pam Yost APRN.AIR TRANSPORTATION PROVIDER [address] [place] [address] Phone: tel: fax: Milton Waters MD [address] [address] Phone: tel: fax: Referral ID Status Reason Start Date Expiration Date V isits Requested Visits Authorized [id number] Closed PCP Requested Referral 12/20/2024 12/20/2025 1 1 Reason Comments Nausea Weight loss . Needs form filled out for disability. Reason Comments New Patient Reason Onset Date Comments Results 12/22/2024 Reason Comments New Patient Specialty Diagnoses / Procedures Referred By Contac t Referred To Contact Hematology Diagnoses Unintentional weight loss of more than 10 pounds in 90 days History of Hodgkin's lymphoma Procedures OFFICE/OUTPATIENT [facility] 60 MINUTES Pam Yost, DESK REPORTER.AIR TRANSPORTATION PROVIDER [address] [place] [address] Phone: tel: fax: Juan R Garcia MD [address] [place] [address] Phone: tel: fax: Referral ID Status Reason Start Date Expiration Date V isits Requested Visits Authorized [id number] Closed PCP Requested Referral 01/24/2025 01/24/2026 1 1 Reason Comments Consult Hydronephrosis, vilma tary kidney, pain in lower back and N/V, fatigue Specialty Diagnoses / Procedures Referred By Contac t Referred To Contact Urology / [facility] DEPARTMENT Diagnoses Congenital solitary kidney Hydronephrosis of left kidney Procedures OFFICE/OUTPATIENT [facility] 60 MINUTES Pam Yost, DESK REPORTER.AIR TRANSPORTATION PROVIDER [address] [place] [address] Phone: tel: fax: Juany Anderson MD [address] [place] [address] Phone: tel: fax: Referral ID Status Reason Start Date Expiration Date V isits Requested Visits Authorized [id number] Closed PCP Requested Referral 01/24/2025 01/24/2026 1 1 Reason Comments Abdominal Pain Specialty Diagnoses / Procedures Referred By Contac t Referred To Contact General Surgery / [facility] DEPARTMENT Diagnoses Gallbladder pain Gallbladder sludge Procedures OFFICE/OUTPATIENT [facility] 60 MINUTES Pam Yost, DESK REPORTER.AIR TRANSPORTATION PROVIDER [address] [place] [address] Phone: tel: fax: Michael Pro MD [address] [place] [address] Phone: tel: fax: Referral ID Status Reason Start Date Expiration Date V isits Requested Visits Authorized [id number] Closed PCP Requested Referral 01/24/2025 01/24/2026 1 1 Reason Comments Surgical Followup Reason Comments Consult concerns for shruthi dder, upper right back pain, cramping Reason Comments Clinical Update Information Reason Comments Appointment Post Op Reason Comments Release Of Medical Records Stat Doctors Reason Comments Electronic Communication Medical source assessment form Reason Comments Post Op C/O back pain Care Teams (unrecognized sec tion and content) Jd Edwards Relationship Specialty Start Date End Date Veronika Ferrer MD [address] [place], [place] [id number] PCP - General Internal Medicine 09/20/19 Jd Edwards Relationship Specialty Start Date End Date Solomon Judd DO [address] [place] [phone] PCP - General Family Medicine 03/22/22 Jd Edwards Relationship Specialty Start Date End Date Solomon Judd DO [address] [place] [phone] PCP - General Family Medicine 03/22/22 Jd Edwards Relationship Specialty Start Date End Date Solomon Judd DO [address] [place] [address] PCP - General 03/07/22 Jd Edwards Relationship Specialty Start Date End Date Solomon Judd DO [address] [place], [place] [address] PCP - General 03/07/22 Jd Edwards Relationship Specialty Start Date End Date Solomon Judd DO [address] [place] [address] PCP - General 03/07/22 Jd Edwards Relationship Specialty Start Date End Date Solomon Judd DO [address] [place] [address] PCP - General 03/07/22 Jd Edwards Relationship Specialty Start Date End Date Solomon Judd DO [address] [place] [phone] PCP - General Family Medicine 03/22/22 Jd Edwards Relationship Specialty Start Date End Date Solomon Judd DO [address] [place] [address] PCP - General 03/07/22 Jd Edwards Relationship Specialty Start Date End Date Solomon Judd DO [address] [place] [address] PCP - General 03/07/22 Jd Edwards Relationship Specialty Start Date End Date Solomon Judd DO [address] [place] [address] [facility] General 03/07/22 Jd Edwards Relationship Specialty Start Date End Date Solomon Judd DO [address] [place] [address] [facility] General 03/07/22 Jd Edwards Relationship Specialty Start Date End Date Solomon Judd DO [address] [place] [phone] PCP - General Family Medicine 03/22/22 Jd Edwards Relationship Specialty Start Date End Date Solomon Judd DO [address] [place] [address] PCP General 03/07/22 Jd Edwards Relationship Specialty Start Date End Date Solomon Judd DO [address] [place] [address] PCP - General 03/07/22 Jd Edwards Relationship Specialty Start Date End Date Solomon Judd DO [address] [place] [address] PCP - General Family Medicine 03/22/22 Jd Edwards Relationship Specialty Start Date End Date Solomon Judd DO [address] [place] [address] PCP - General Family Medicine 03/22/22 Jd Edwards Relationship Specialty Start Date End Date Solomon Judd DO [address] [place] [address] PCP - General Family Medicine 03/22/22 Jd Edwards Relationship Specialty Start Date End Date Solomon Judd DO [address] [place] [address] PCP - General Family Medicine 03/22/22 Jd Edwards Relationship Specialty Start Date End Date Solomon Judd DO [address] [place] [address] PCP - General Family Medicine 03/22/22 Jd Edwards Relationship Specialty Start Date End Date Solomon Judd DO [address] [place] [address] PCP - General Family Medicine 03/22/22 Jd Edwards Relationship Specialty Start Date End Date Solomon Judd DO [address] [place] [address] PCP - General Family Medicine 03/22/22 Jd Edwards Relationship Specialty Start Date End Date Solomon Judd DO [address] [place] [address] PCP - General Family Medicine 03/22/22 Jd Edwards Relationship Specialty Start Date End Date Solomon Judd DO [address] [place] [address] PCP - General Family Medicine 03/22/22 Jd Edwards Relationship Specialty Start Date End Date Solomon Judd DO [address] [place] [address] PCP - General Family Medicine 03/22/22 Jd Edwards Relationship Specialty Start Date End Date Solomon Judd DO [address] [place], [place] [address] PCP - General 03/07/22 Jd Edwards Relationship Specialty Start Date End Date Solomon Judd DO [address] [place] [address] PCP - General Family Medicine 03/22/22 Jd Edwards Relationship Specialty Start Date End Date Solomon Judd DO [address] [place] [address] PCP - General Family Medicine 03/22/22 Jd Edwards Relationship Specialty Start Date End Date Solomon Judd DO [address] [place] [address] PCP - General 03/07/22 Jd Edwards Relationship Specialty Start Date End Date Solomon Judd DO [address] [place], [place] [address] PCP - General 03/07/22 Jd Edwards Relationship Specialty Start Date End Date Solomon Judd DO [address] [place] [address] PCP - General 03/07/22 Team Status: Active Member Role Status Dates Dr. Veronika Ferrer MD Family Provider Active Dr. Veronika Ferrer MD Primary Care Provider Active Team Status: Inactive Member Role Status Dates Dr. Veronika Ferrer MD Primary Care Provider Active Dr. Torito Mensah MD Emergency Provider Active Jd Edwards Relationship Specialty Start Date End Date Solomon Judd DO [address] [place] [address] PCP - General 03/07/22 Team Status: Inactive Member Role Status Dates Dr. Veronika Ferrer MD Primary Care Provider Active Dr. Torito Mensah MD Attending Provider, Emergency Provider Active Team Status: Inactive Member Role Status Dates Dr. Veronika Ferrer MD Primary Care Provider Active Dr. Mark Rooney DO Emergency Provider Active Jd Edwards Relationship Specialty Start Date End Date Solomon Judd DO [address] [place] [address] PCP - General Family Medicine 03/22/22 09/09/23 Jd Edwards Relationship Specialty Start Date End Date Veronika Ferrer MD [address] [place] [phone] PCP - General Internal Medicine 11/23/23 Jd Edwards Relationship Specialty Start Date End Date Veronika Ferrer MD [address] [place] [address] PCP - General Internal Medicine 11/23/23 Jd Edwards Relationship Specialty Start Date End Date Veronika Ferrer MD [address] [place] [address] PCP - General Internal Medicine 11/23/23 Jd Edwards Relationship Specialty Start Date End Date Veronika Ferrer MD [address] [place] [address] PCP - General Internal Medicine 11/23/23 Jd Edwards Relationship Specialty Start Date End Date Veronika Ferrer MD [address] [place] [address] PCP - General Internal Medicine 11/23/23 Jd Edwards Relationship Specialty Start Date End Date Veronika Ferrer MD [address] [place] [address] PCP - General Internal Medicine 11/23/23 Jd Edwards Relationship Specialty Start Date End Date Veronika Ferrer MD [address] [place] [address] PCP - General Internal Medicine 11/23/23 Jd Edwards Relationship Specialty Start Date End Date Veronika Ferrer MD [address] [place] [address] PCP - General Internal Medicine 11/23/23 Jd Edwards Relationship Specialty Start Date End Date Veronika Ferrer MD [address] [place] [address] PCP - General Internal Medicine 11/23/23 Jd Edwards Relationship Specialty Start Date End Date Veronika Ferrer MD [address] [place] [address] PCP - General Internal Medicine 11/23/23 Jd Edwards Relationship Specialty Start Date End Date Veronika Ferrer MD [address] [place] [address] PCP - General Internal Medicine 11/23/23 Jd Edwards Relationship Specialty Start Date End Date Veronika Ferrer MD [address] [place] [address] PCP - General Internal Medicine 11/23/23 Jd Edwards Relationship Specialty Start Date End Date Veronika Ferrer MD [address] [place] [address] PCP - General Internal Medicine 11/23/23 Jd Edwards Relationship Specialty Start Date End Date Veronika Ferrer MD [address] [place] [address] PCP - General Internal Medicine 11/23/23 Jd Edwards Relationship Specialty Start Date End Date Veronika Ferrer MD [address] [place] [address] PCP - General Internal Medicine 11/23/23 Jd Edwards Relationship Specialty Start Date End Date Veronika Ferrer MD [address] [place] [address] PCP - General Internal Medicine 11/23/23 Jd Edwards Relationship Specialty Start Date End Date Veronika Ferrer MD [address] [place] [address] PCP - General Internal Medicine 11/23/23 Jd Edwards Relationship Specialty Start Date End Date Veronika Ferrer MD [address] [place] [address] PCP - General Internal Medicine 11/23/23 Jd Edwards Relationship Specialty Start Date End Date Veronika Ferrer MD [address] [place] [address] PCP - General Internal Medicine 11/23/23 Jd Edwards Relationship Specialty Start Date End Date Veronika Ferrer MD [address] [place] [address] PCP - General Internal Medicine 11/23/23 Jd Edwards Relationship Specialty Start Date End Date Solomon Judd DO [address] [facility] [place] [address] PCP - General 03/07/22 Jd Edwards Relationship Specialty Start Date End Date Solomon Judd DO [address] [facility], [address] [place] [address] PCP - General 03/07/22 Jd Edwards Relationship Specialty Start Date End Date Queden, Pam A, DESK REPORTER.AIR TRANSPORTATION PROVIDER [address] [place] [address] PCP - General Family Medicine 07/11/24 Jd Edwards Relationship Specialty Start Date End Date Queden, Pam A, DESK REPORTER.AIR TRANSPORTATION PROVIDER [address] [place] [address] PCP - General Family Medicine 07/11/24 Jd Edwards Relationship Specialty Start Date End Date Queden, Pam A, DESK REPORTER.AIR TRANSPORTATION PROVIDER [address] [place] [address] PCP - General Family Medicine 07/11/24 Jd Edwards Relationship Specialty Start Date End Date Queden, Pam A, DESK REPORTER.AIR TRANSPORTATION PROVIDER [address] [place] [address] PCP - General Family Medicine 07/11/24 Jd Edwards Relationship Specialty Start Date End Date Queden, Apm A, DESK REPORTER.AIR TRANSPORTATION PROVIDER [address] [place] [address] PCP - General Family Medicine 07/11/24 Jd Edwards Relationship Specialty Start Date End Date Queden, Pam A, DESK REPORTER.AIR TRANSPORTATION PROVIDER [address] [place] [address] PCP - General Family Medicine 07/11/24 Jd Edwards Relationship Specialty Start Date End Date Queden, Pam A, DESK REPORTER.AIR TRANSPORTATION PROVIDER [address] [place] [address] PCP - General Family Medicine 07/11/24 Team Status: Active Member Role Status Dates Dr. Veronika Ferrer MD Primary Care Provider Active Team Status: Inactive Member Role Status Dates Dr. Veronika Ferrer MD Primary Care Provider Active Start: September 04, 2024 End: September 04, 2024 Collin Aerchiga MD Emergency Provider Active Star t: September 04, 2024 End: September 04, 2024 Team Status: Active Member Role Status Dates Pam Yost SAND FILLER, SAND FILLER-C Primary Care Provider Active Team Status: Inactive Member Role Status Dates Dr. Veronika Ferrer MD Primary Care Provider Active Start: September 04, 2024 End: September 04, 2024 Collin Arechiga MD Attending Provider Active Star t: September 04, 2024 End: September 04, 2024 Collin Arechiga MD Emergency Provider Active Star t: September 04, 2024 End: September 04, 2024 Team Status: Inactive Member Role Status Dates Pam Yost SAND FILLER, SAND FILLER-C Primary Care Provider Active Start: October 10, 2024 End: October 11, 2024 Dr. Ashlee Barreto DO Emergency Provider Active Start: October 10, 2024 End: October 11, 2024 Jd Edwards Relationship Specialty Start Date End Date Pam Yost APRN.CNP [address] [place] [address] PCP - General Family Medicine 07/11/24 Team Status: Inactive Member Role Status Dates Pam Yost SAND FILLER, SAND FILLER-C Primary Care Provider Active Start: October 10, 2024 End: October 11, 2024 Dr. Ashlee Barreto DO Attending Provider Active Start: October 10, 2024 End: October 11, 2024 Dr. Ashlee Barreto DO Emergency Provider Active Start: October 10, 2024 End: October 11, 2024 Team Status: Inactive Member Role Status Dates Pam Yost SAND FILLER, SAND FILLER-C Primary Care Provider Active Start: November 13, 2024 End: November 13, 2024 Dr. Anderson Avila DO Emergency Provider Active Start : November 13, 2024 End: November 13, 2024 Jd Edwards Relationship Specialty Start Date End Date Litzy Pam A, DESK REPORTER.AIR TRANSPORTATION PROVIDER [address] [facility] [place] [address] PCP - General Family Medicine 07/11/24 Jd Edwards Relationship Specialty Start Date End Date Litzy Pam A, DESK REPORTER.AIR TRANSPORTATION PROVIDER [address] [facility], [place] [id number] PCP - General Family Medicine 07/11/24 Jd Edwards Relationship Specialty Start Date End Date Litzy Pam A, DESK REPORTER.AIR TRANSPORTATION PROVIDER [address] [facility], [place] [id number] PCP - General Family Medicine 07/11/24 Team Status: Active Member Role/Relationship Status Dates Pam Yost SAND FILLER, SAND FILLER-C Primary Care Provider Active Team Status: Inactive Member Role/Relationship Status Dates Dr. Veronika Ferrer MD Primary Care Provider Active Start: September 04, 2024 End: September 04, 2024 Collin Arechiga MD Attending Provider Active Star t: September 04, 2024 End: September 04, 2024 Collin Arechiga MD Emergency Provider Active Star t: September 04, 2024 End: September 04, 2024 Team Status: Inactive Member Role/Relationship Status Dates Pam Yost SAND FILLER, SAND FILLER-C Primary Care Provider Active Start: October 10, 2024 End: October 11, 2024 Dr. Ashlee Barreto DO Attending Provider Active Start: October 10, 2024 End: October 11, 2024 Dr. Ashlee Barreto DO Emergency Provider Active Start: October 10, 2024 End: October 11, 2024 Team Status: Inactive Member Role/Relationship Status Dates Pam Yost SAND FILLER, SAND FILLER-C Primary Care Provider Active Start: November 13, 2024 End: November 13, 2024 Dr. Anderson Avila DO Attending Provider Active Start : November 13, 2024 End: November 13, 2024 Dr. Anderson Avila DO Emergency Provider Active Start : November 13, 2024 End: November 13, 2024 Team Status: Inactive Member Role/Relationship Status Dates Pam Yost SAND FILLER, SAND FILLER-C Primary Care Provider Active Start: December 31, 2024 End: December 31, 2024 Pam Yost SAND FILLER, SAND FILLER-C Referring Provider Active Start: December 31, 2024 End: December 31, 2024 Mayuri Prado SAND FILLER-C Attending Provider Active Start: December 31, 2024 End: December 31, 2024 Jd Edwards Relationship Specialty Start Date End Date Pam Yost APRN.AIR TRANSPORTATION PROVIDER [address] [place] [address] PCP - General Family Medicine 07/11/24 [place] [address] [place] [address] [address] [place] [address] Gastroenterology 12/23/24 Jd Edwards Relationship Specialty Start Date End Date Pam Yost APRN.AIR TRANSPORTATION PROVIDER [address] [place] [address] PCP - General Family Medicine 07/11/24 Zion Reese DO [address] [facility] [address] [place], [place] [address] Gastroenterology 12/23/24 Team Status: Inactive Member Role/Relationship Status Dates Pam Yost SAND FILLER, SAND FILLER-C Primary Care Provider Active Start: October 10, 2024 End: October 11, 2024 Dr. Ashlee Barreto DO Attending Provider Active Start: October 10, 2024 End: October 11, 2024 Dr. Ashlee Barreto DO Emergency Provider Active Start: October 10, 2024 End: October 11, 2024 Team Status: Inactive Member Role/Relationship Status Dates Pam Yost SAND FILLER, SAND FILLER-C Primary Care Provider Active Start: November 13, 2024 End: November 13, 2024 Dr. Anderson Avila DO Attending Provider Active Start : November 13, 2024 End: November 13, 2024 Dr. Anderson Avila DO Emergency Provider Active Start : November 13, 2024 End: November 13, 2024 Team Status: Inactive Member Role/Relationship Status Dates Pam Yost SAND FILLER, SAND FILLER-C Primary Care Provider Active Start: December 31, 2024 End: December 31, 2024 Pam Yost SAND FILLER, SAND FILLER-C Referring Provider Active Start: December 31, 2024 End: December 31, 2024 Mayuri Prado SAND FILLER-C Attending Provider Active Start: December 31, 2024 End: December 31, 2024 Team Status: Inactive Member Role/Relationship Status Dates Pam Yost SAND FILLER, SAND FILLER-C Primary Care Provider Active Start: January 03, 2025 End: January 03, 2025 Mayuri Prado SAND FILLER-C Attending Provider Active Start: January 03, 2025 End: January 03, 2025 Mayuri Prado SAND FILLER-C Referring Provider Active Start: January 03, 2025 End: January 03, 2025 Jd Edwards Relationship Specialty Start Date End Date Pam Yost APRN.AIR TRANSPORTATION PROVIDER [address] [place] [address] PCP - General Family Medicine 07/11/24 Zion Reese DO [address] [address] Gastroenterology 12/23/24 Babs Acosta RN Specialty Surveillance Investigator Hematology/Oncology 01/06/25 Team Status: Inactive Member Role/Relationship Status Dates Pam Yost SAND FILLER, SAND FILLER-C Primary Care Provider Active Start: January 16, 2025 End: January 16, 2025 Mayuri Prado NP-C Attending Provider Active Start: January 16, 2025 End: January 16, 2025 Mayuri Prado NP-C Referring Provider Active Start: January 16, 2025 End: January 16, 2025 Jd Edwards Relationship Specialty Start Date End Date Pam Yost APRN.AIR TRANSPORTATION PROVIDER [address] [place], [place] [address], [place] [address] PCP - General Family Medicine 07/11/24 Zion Reese DO [address] [facility] [address] [place] [address] Gastroenterology 12/23/24 Babs Acosta RN Specialty Surveillance Investigator Hematology/Oncology 01/06/25 Jd Edwards Relationship Specialty Start Date End Date Pam Yost, DESK REPORTER.AIR TRANSPORTATION PROVIDER [address] [facility] [place] [address] PCP - General Family Medicine 07/11/24 Zion Reese DO [address] [facility] [address] [place], [place] [address]- Gastroenterology 12/23/24 Babs Acosta RN Specialty Surveillance Investigator Hematology/Oncology 01/06/25 Jd Edwards Relationship Specialty Start Date End Date Pam Yost, DESK REPORTER.AIR TRANSPORTATION PROVIDER [address] [place] [address] PCP - General Family Medicine 07/11/24 Zion Reese DO [address], [place] [address] Gastroenterology 12/23/24 Babs Acosta RN Specialty Surveillance Investigator Hematology/Oncology 01/06/25 Jd Edwards Relationship Specialty Start Date End Date Pam Yost, DESK REPORTER.AIR TRANSPORTATION PROVIDER [address] [place] [address] PCP - General Family Medicine 07/11/24 Zion Reese DO [address] [place] [address] [place], [place] [address] Gastroenterology 12/23/24 Babs Acosta RN Specialty Surveillance Investigator Hematology/Oncology 01/06/25 Jd Edwards Relationship Specialty Start Date End Date Pam Yost, DESK REPORTER.AIR TRANSPORTATION PROVIDER [address] [place] [address] PCP - General Family Medicine 07/11/24 Zion Reese DO [address] [place] [address] [place] [address] Gastroenterology 12/23/24 Babs Acosta RN Specialty Surveillance Investigator Hematology/Oncology 01/06/25 Jd Edwards Relationship Specialty Start Date End Date Pam Yost, DESK REPORTER.AIR TRANSPORTATION PROVIDER [address] [place] [address] PCP - General Family Medicine 07/11/24 Zion Reese DO [address] [place] [address] [place] [address] Gastroenterology 12/23/24 Babs Acosta RN Specialty Surveillance Investigator Hematology/Oncology 01/06/25 Jd Edwards Relationship Specialty Start Date End Date Pam Yost, DESK REPORTER.AIR TRANSPORTATION PROVIDER [address] [facility] [address] PCP - General Family Medicine 07/11/24 Zion Reese DO [address] [place] [address] [place] [address] Gastroenterology 12/23/24 Babs Acosta RN Specialty Surveillance Investigator Hematology/Oncology 01/06/25 Jd Edwards Relationship Specialty Start Date End Date Pam Yost, DESK REPORTER.AIR TRANSPORTATION PROVIDER [address], [place] [id number] PCP - General Family Medicine 07/11/24 Zion Reese DO [address] [place] [address] [place] [address] Gastroenterology 12/23/24 Babs Acosta RN Specialty Surveillance Investigator Hematology/Oncology 01/06/25 Jd Edwards Relationship Specialty Start Date End Date Pam Yost, DESK REPORTER.AIR TRANSPORTATION PROVIDER [address] [facility] [place] [address] PCP - General Family Medicine 07/11/24 Zion Reese DO [address] [place] [address] [place] [address] Gastroenterology 12/23/24 Babs Acosta RN Specialty Surveillance Investigator Hematology/Oncology 01/06/25 Jd Edwards Relationship Specialty Start Date End Date Pam Yost, DESK REPORTER.AIR TRANSPORTATION PROVIDER [address] [facility], [place] [id number] PCP - General Family Medicine 07/11/24 Zion Reese DO [address] [place] [address] [place] [address] Gastroenterology 12/23/24 Babs Acosta RN Specialty Surveillance Investigator Hematology/Oncology 01/06/25 Jd Edwards Relationship Specialty Start Date End Date Pam Yost APRN.AIR TRANSPORTATION PROVIDER [address] [facility] [place] [address] PCP - General Family Medicine 07/11/24 Zion Reese DO [address] [place] [place] [address] Gastroenterology 12/23/24 Babs Acosta RN Specialty Surveillance Investigator Hematology/Oncology 01/06/25 Jd Edwards Relationship Specialty Start Date End Date Pam Yost APRN.AIR TRANSPORTATION PROVIDER [address] [facility] [place] [address] PCP - General Family Medicine 07/11/24 Zion Reese DO [address] [place] [address] [place] [address] Gastroenterology 12/23/24 Babs Acosta RN Specialty Surveillance Investigator Hematology/Oncology 01/06/25 Jd Edwards Relationship Specialty Start Date End Date Pam Yost APRN.AIR TRANSPORTATION PROVIDER [address] [facility] [place] [address] PCP - General Family Medicine 07/11/24 Zion Reese DO [address] [place] [address] [place] [address] Gastroenterology 12/23/24 Babs Acosta RN Specialty Surveillance Investigator Hematology/Oncology 01/06/25 Jd Edwards Relationship Specialty Start Date End Date Pam Yost, DESK REPORTER.AIR TRANSPORTATION PROVIDER [address] [facility], [place] [id number] PCP - General Family Medicine 07/11/24 Zion Reese DO [address] [place] [address] [place] [address] Gastroenterology 12/23/24 Babs Acosta RN Specialty Surveillance Investigator Hematology/Oncology 01/06/25 Jd Edwards Relationship Specialty Start Date End Date Pam Yost, DESK REPORTER.AIR TRANSPORTATION PROVIDER [address] [facility] [place] [address] PCP - General Family Medicine 07/11/24 Zion Reese DO [address] [place] [address] [place] [address] Gastroenterology 12/23/24 Babs Acosta RN Specialty Surveillance Investigator Hematology/Oncology 01/06/25 Jd Edwards Relationship Specialty Start Date End Date Pam Yost, DESK REPORTER.AIR TRANSPORTATION PROVIDER [address] [facility] [place] [address] PCP - General Family Medicine 07/11/24 Zion Reese DO [address] [place] [address] [place] [address] Gastroenterology 12/23/24 Babs Acosta RN Specialty Surveillance Investigator Hematology/Oncology 01/06/25 FOR RECORDS PERTAINING TO PATIENTS WHO ARE [...] BE BASED ON THE PRIMARY CLINICAL RECORDS. [facility]. provides no warranty or guarantee of the accuracy or completeness of information in this document.
--- NOTE | 2025-03-19 22:18 | CT_ITS ---
PROCEDURE: ABDOMEN/PELVIS WITHOUT CONT 03/19/2025 REASON FOR EXAM: PAIN Patient has documented history of CKD, Hodgkin lymphoma (as per notes) TECHNIQUE: Procedure Code: CTABDPEL Modality: CT Procedure: ABDOMEN/PELVIS WITHOUT CONT Noncontrast technique limits evaluation of the abdominal and pelvic viscera. Coronal and Sagittal reconstruction series were provided. One or more dose reduction techniques were used (e.g., Automated exposure control, adjustment of the mA and/or kV according to patient size, use of iterative reconstruction technique). RADIATION DOSE SUMMARY: CTDlvol: 6.04 mGy DLP: 295.97 mGycm COMPARISON: CT abdomen pelvis 09/04/2024 FINDINGS: Lung bases: Mild dependent atelectasis Liver: Mild dilatation of intrahepatic biliary ducts. Hepatic steatosis. Hepatomegaly measuring 17 cm in craniocaudal dimension. Gallbladder: Unremarkable Spleen: Spleen measures 10.2 cm. Probable small splenule is visualized along splenic hilum. Pancreas: Limited evaluation due to paucity of abdominal fat. No definite evidence of peripancreatic stranding in visualized pancreas. 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 Left kidney is visualized moderate left hydronephrosis with hydroureter without definite evidence of any distal obstruction. Bladder: Markedly distended bladder. Reproductive Organs: There is persistent prominence of soft tissue within right adnexa these findings are unchanged since prior study. Findings could be related to deviated uterus versus bulky adnexa. Bowel: Gaseous dilatation of large bowel loops. Contrast is seen within ascending colon. Small bowel loops are fluid-filled and demonstrate mild wall thickness. Appendix: The appendix is not identified. There is no inflammatory process identified in the right lower quadrant to suggest appendicitis. Lymph nodes: There is suggestion of multiple scattered mesenteric lymph nodes. Evaluation is again limited due to lack of IV contrast. Vasculature: The abdominal aorta and IVC contours are normal. Noncontrast technique limits evaluation. Peritoneum / Retroperitoneum: Unremarkable Bones: Diffuse sclerosis of vertebrae. CT/Abdomen/Pelvis without Cont IMPRESSION: Hepatomegaly with diffuse steatosis. Gaseous dilatation of large bowel loops . Distended small bowel fluid-filled l oops with mild wall thickening. Findings could be related to related to underlying infectious/inflammatory process such as develo ping enteritis. Evaluation is severely limited due to lack of contrast. There is suggestion of scattered mesenteric lymph nodes. Findings could be rel ated to patient underlying history of non-Hodgkin's lymphoma. PET-CT should be considered for better characterizatio n. Left hydroureteronephrosis without definite evidence of distal obstruction. Markedly dilated urinary bladder. There is persistent soft tissue mass within right pelvis likely related to nasima ated uterus with prominent right adnexa. Findings are similar when compared to prior study. These findings could be better appre ciated on contrast enhanced CT. Diffuse sclerosis of vertebral bodies findings could be related to underlying C KD. Reading Location: [id number]
[2025-03-19 22:22] LABS: Mucous, Urine 0 SEEN /hpf (<or=2+)
[2025-03-19 22:43] LABS: Color, Urine Yellow (Yellow); Glucose, Dipstick Normal (Normal); Ketone-Dipstick Negative (Negative); Leukocyte Esterase-Dipstick Negative /ul (Negative); Nitrite-Dipstick Negative (Negative); Occult Blood-Urine Negative /ul (Negative); Protein-Dipstick 100 mg/dl (Negative); Specific Gravity, Urine 1.010 (1.002-1.030); Urine Bilirubin Dipstick Negative (Negative)
[2025-03-19 22:49] LABS: Red Blood Cells-Urine 0-5 SEEN /hpf (0-5); Squamous Epithelial Cells - UA 0-5 SEEN /hpf (5-10)
--- NOTE | 2025-03-19 23:28 | ED.RN ---
PT mother approached this nurse requesting to speak with charge manager. She did not want her daughter discharged due to not safety for her to go home. This nurse notified charge manager and primary doctor of family request. While this nurse was speaking with charge manager this nurse was notified patient had removed saline lock. Patient was up moving around room getting dressed and holding a paper towel over saline lock site. This nurse informed patient and family charge manager and doctor would be in to speak out their concerns. patient walked out of room stating I'm never coming to this hospital again I've been treated so poorly. enamel finisher and Doctor notified.
== END 2025-03-19 23:43 | disposition home or self-care (01) ==
PROVIDERS: Emergency Provider Emergency Medicine; PCP Nurse Practitioner Family; Visit Provider Emergency Medicine
DX: R10.9 Unspecified abdominal pain (principal); F14.20 Cocaine dependence, uncomplicated; F11.20 Opioid dependence, uncomplicated; F15.20 Other stimulant dependence, uncomplicated; N18.30 Chronic kidney disease, stage 3 unspecified; K52.9 Noninfective gastroenteritis and colitis, unspecified; Q60.0 Renal agenesis, unilateral; G89.29 Other chronic pain; F17.290 Nicotine dependence, other tobacco product, uncomplicated; Z90.49 Acquired absence of other specified parts of digestive tract; Z86.16 Personal history of COVID-19
CPT/HCPCS: 36415; 74176; 80053; 81001; 83690; 84703; 85025; 96374; 96375; 99282; J2405

== ENCOUNTER → 2025-03-25 | Outpatient (CLI) | payer MEDICAID, SELFPAY ==
--- OUTSIDE RECORDS SUMMARY | 2025-03-21 15:39 | XMS RPT_ITS ---
Author Name [employer] Organization OHIP Care Team Providers Care Radio Personality Name Role Phone BENITO RAZA Attending Unavailable GENERIC PROVIDER, NO ASSIGNED PCP Primary Care Unavailable QUEDEN, PAM A Attending Unavailable GAEL, VERONIKA B Primary Care Unavailable SHERI ALEJANDRO Attending Unavailable QUEDEN, PAM A Primary Care Unavailable QUEDEN, PAM A Attending Unavailable SHERI ALEJANDRO Referring Unavailable QUEDEN, PAM A Primary Care Unavailable QUEDEN, PAM A Attending Unavailable SELF Referring Unavailable QUEDEN, PAM A Primary Care Unavailable QUEDEN, PAM A Referring Unavailable QUEDEN, PAM A Primary Care Unavailable QUEDEN, PAM A Attending Unavailable QUEDEN, PAM A Primary Care Unavailable QUEDEN, PAM A Attending Unavailable QUEDEN, PAM A Primary Care Unavailable JUSTINE, JUANY F Admitting Unavailable JUSTINE, JUANY F Attending Unavailable QUEDEN, PAM A Primary Care Unavailable JUSTINE, JUANY F Referring Unavailable QUEDEN, PAM A Primary Care Unavailable QUEDEN, PAM A Attending Unavailable QUEDEN, PAM A Primary Care Unavailable MICHAEL PRO Admitting Unavailable MICHAEL PRO Attending Unavailable QUEDEN, PAM A Primary Care Unavailable THADDEUS SHELL Attending Unavailable QUEDEN, PAM A Primary Care Unavailable JUAN R PARRY Referring Unavailable QUEDEN, PAM A Primary Care Unavailable LENORA GALAVIZ Attending Unavailable QUEDEN, PAM A Primary Care Unavailable QUEDEN, PAM A Referring Unavailable MICHAEL PRO Attending Unavailable QUEDEN, PAM A Primary Care Unavailable QUEDEN, PAM A Primary Care Unavailable QUEDEN, PAM A Referring Unavailable BREANN SHAH Attending Unavailable QUEDEN, PAM A Primary Care Unavailable QUEDEN, PAM A Referring Unavailable QUEDEN, PAM A Primary Care Unavailable QUEDEN, PAM A Referring Unavailable JUAN R PARRY Referring Unavailable QUEDEN, PAM A Primary Care Unavailable OLEGHE, EFEWONGBE B Primary Care Unavailable MANUEL COY Attending Unavailable MICHAEL PRO Referring Unavailable ASHLI TYSON Attending Unavailable QUEDEN, PAM A Primary Care Unavailable OLEGHE, EFEWONGBE B Primary Care Unavailable BETHANY GIL Attending Unavailable JUAN R PARRY Attending Unavailable QUEDEN, APM A Primary Care Unavailable QUEDEN, PAM A Referring Unavailable OLEGHE, EFEWONGBE B Primary Care Unavailable OLEGHE, EFEWONGBE B Primary Care Unavailable MARILU RAYA Referring Unavailable JUAN R PARRY Referring Unavailable QUEDEN, PAM A Primary Care Unavailable OLEGHE, EFEWONGBE B Primary Care Unavailable BETHANY GIL Attending Unavailable DOMITILA HARMON Attending Unavailable QUEDEN, PAM A Primary Care Unavailable QUEDEN, PAM A Primary Care Unavailable JUAN R PARRY Referring Unavailable JUANY ANDERSON Attending Unavailable QUEDEN, PAM A Primary Care Unavailable QUEDEN, PAM A Referring Unavailable DELMY NATION Attending Unavailable QUEDEN, PAM A Primary Care Unavailable QUEDEN, PAM A Primary Care Unavailable PROBLEMS DATE TYPE CONDITION / CODE ATTENDING STATUS [facility] 03/21/2025 Active Continuous LLQ abdominal pain / R10.32(ICD-10) QUEDEN, PAM A Active [facility] 03/21/2025 Active Gastroparesis / K31.84(ICD-10) QUEDEN, PAM A Active [facility] 03/19/2025 Active Stage 3b chronic kidney disease (HCC) / N18.32(ICD-10) NA Active [facility] 07/31/2018 Active Hodgkin lymphoma of lymph nodes of multiple regions, unspecified Hodgkin lymphoma type (HCC) / C81.98(ICD-10) NA Active [facility] 02/25/2025 Active RUQ pain / R10.11(ICD-10) MICHAEL PRO Active [facility] 02/25/2025 Active Biliary colic / K80.50(ICD-10) MICHAEL PRO Active [facility] 02/18/2025 Active Other hydronephr osis / N13.39(ICD-10) JUANY ANDERSON Active [facility] 02/17/2025 Active Hydronephrosis, unspecified hydronephrosis type / N13.30(ICD-10) NA Active [facility] 02/17/2025 Active Solitary kidney, congenital / Q60.0(ICD-10) NA Active [facility] 01/14/2025 Active Hydronephrosis o f left kidney / N13.30(ICD-10) PAM MCGHEE Active [facility] 01/24/2025 Active Gallbladder pain / K82.9(ICD-10) PAM MCGHEE Active [facility] 01/24/2025 Active Gallbladder slud ge / K82.8(ICD-10) PAM MCGHEE Active [facility] 09/10/2023 Active Substance abuse (HCC) / F19.10(ICD-10) BREANN SHAH Active [facility] 09/10/2023 Active Acute kidney inj ury / N17.9(ICD-10) BREANN SHAH Active [facility] 01/23/2025 Active Screening for genitourinary condition / Z13.89(ICD-10) BREANN SHAH Active [facility] 01/23/2025 Active Metabolic acidos is / E87.20(ICD-10) BREANN SHAH Active [facility] 01/23/2025 Active Hypokalemia / E87.6(ICD-10) BREANN SHAH Active [facility] 01/23/2025 Active Proteinuria, unspecified type / R80.9(ICD-10) BREANN SHAH Active [facility] 07/11/2024 Active Chronic kidney disease, unspecified CKD stage / N18.9(ICD-10) NA Active [facility] 07/31/2018 Active Iron deficiency anemia, unspecified iron deficiency anemia type / D50.9(ICD-10) NA Active [facility] 12/20/2024 Active Kidney disease / N28.9(ICD-10) NA Active [facility] 07/11/2024 Active Stage 3 chronic kidney disease, unspecified whether stage 3a or 3b CKD (HCC) / N18.30(ICD-10) PAM MCGHEE A Active [facility] 07/11/2024 Active Hx of adenomatou s polyp of colon / Z86.0101(ICD-10) PAM MCGHEE A Active [facility] 07/31/2018 Active Chronic hepatiti s C without hepatic coma (HCC) / B18.2(ICD-10) PAM MCGHEE A Active [facility] 12/20/2024 Active Unintentional we ight loss of more than 10 pounds in 90 days / R63.4(ICD-10) PAM MCGHEE Active [facility] 12/20/2024 Active Screening for diabetes mellitus / Z13.1(ICD-10) PAM MCGHEE Active [facility] 11/22/2024 Active Frequency of urination / R35.0(ICD-10) DOMITILA HARMON Active [facility] 11/22/2024 Active Hematuria, unspecified type / R31.9(ICD-10) DOMITILA HARMON Active [facility] 11/22/2024 Active Nausea / R11.0(ICD-10) DOMITILA HARMON Active [facility] 11/13/2024 Active Urinary frequenc y / R35.0(ICD-10) THADDEUS SHELL Active [facility] 09/18/2024 Active Nausea and vomit ing, unspecified vomiting type / R11.2(ICD-10) SHERI ALEJANDRO Active [facility] 09/18/2024 Active Left flank pain / R10.9(ICD-10) SHERI ALEJANDRO [facility] 09/18/2024 Active Elevated serum creatinine / R79.89(ICD-10) SHERI ALEJANDRO [facility] 07/11/2024 Active 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 / G43.719(ICD-10) PAM MCGHEE [facility] 07/11/2024 Active Moderate persist ent asthma without complication / J45.40(ICD-10) PAM MCGHEE [facility] 07/11/2024 Active Generalized anxi ety disorder / F41.1(ICD-10) [facility] Congenital solit wes kidney / Q60.0(ICD-10) PAM MCGHEE [facility] 09/10/2023 Active Bipolar 1 disord er (HCC) / F31.9(ICD-10) PAM MCGHEE [facility] 07/31/2018 Active Tobacco use diso rder / F17.200(ICD-10) PAM MCGHEE [facility] 07/11/2024 Active Hypothyroidism, unspecified type / E03.9(ICD-10) PAM MCGHEE [facility] 07/11/2024 Active Drug abuse in remission (HCC) / F19.11(ICD-10) PAM MCGHEE [facility] 07/11/2024 Active Herpes simplex disease / B00.9(ICD-10) PAM MCGHEE [facility] 07/11/2024 Active History of Hodgk in's lymphoma / Z85.71(ICD-10) PAM MCGHEE [facility] 04/23/2024 Active Wheezing / R06.2(ICD-10) NA Active [facility] 04/08/2024 Admitting Diagnosis Cyst of kidney, acquired / N28.1(ICD-10) BENITO RAZA Active [facility] 04/04/2024 Active No-show for appointment / Z91.199(ICD-10) MANUEL COY Active [facility] [place] PROCEDURES No Procedure Records Found RESULTS PROGRESS Observed: 03/25/2025 10:27 AM Status: COMPLETED Source: [facility] HNO ID: [id number] Author: MAYURI GARCIA RN Service: ? Author Type: Registered Nurse Type: Progress Notes Filed: 03/25/2025 10:33 Note Text: AG TRANSITIONAL CARE MANAGEMENT (TCM) FOLLOW-UP NOTE Patient identified by name Diagnosis: N/A Summary: TCM RN received msg from pt. Pt is inquiring about pain meds from her PCP. PCP's office and pt are already communicating via [employer]. Percocet refill was sent to pt's pharmacy this morning. No call needed at this time. Concerns: N/A Assistant Women'S Tennis Coach plan for next outreach: No further follow-up needed at this time. Signature: Mayuri Garcia RN March 25, 2025 PROGRESS Observed: 03/25/2025 7:56 AM Status: COMPLETED Source: [facility] HNO ID: [id number] Author: PAM MCGHEE APRN.CNP Service: ? Author Type: Nurse Practitioner Type: Progress Notes Filed: 03/25/2025 07:58 Note Text: I told the patient and her mother that I can only prescribe her one more refill of the Percocet. She needs to continue to hold the Suboxone while taking. CNPTOUTREACH Observed: 03/25/2025 12:00 AM Status: COMPLETED Source: [facility] Patient Outreach (AGACM) AISSATOU JOHNSON ([id number]) 1990 F Date Time Provider Department 03/25/25 MAYURI GARCIA During your visit today, we recorded the following information about you: Mayuri Garcia RN 03/25/2025 10:33 AM Signed AG TRANSITIONAL CARE MANAGEMENT (TCM) FOLLOW-UP NOTE Patient identified by name Diagnosis: N/A Summary: TCM RN received msg from pt. Pt is inquiring about pain meds from her PCP. PCP's office and pt are already communicating via [employer]. Percocet refill was sent to pt's pharmacy this morning. No call needed at this time. Concerns: N/A Assistant Women'S Tennis Coach plan for next outreach: No further follow-up needed at this time. 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 - gabapentin (NEURONTIN) 100 mg capsule Take 1-2 capsules by mouth daily at bedtime for 30 days. - levothyroxine (SYNTHROID) 88 mcg tablet Take 1 tablet by mouth daily before breakfast. - ondansetron orally disintegrating (ZOFRAN ODT) 4 mg disintegrating tablet Take 1 tablet by mouth every 8 hours as needed for nausea/vomiting. - SUMAtriptan (IMITREX) 100 mg tablet Take [...] 1 capsule by mouth once daily. - OTC PRODUCT Vitamin D [...] home medications Problem List As Of Date 03/25/2025 Noted Resolved Hodgkin lymphoma (HCC) [C81.90] 10/22/2010 [...] left ear [H91.92] 07/11/2024 Encounter Status:Closed by MAYURI GARCIA on 03/25/25 PROGRESS Observed: 03/24/2025 3:19 PM Status: [id number] Author: MAYURI GARCIA RN Service: ? Author Type: Registered Nurse Type: Progress Notes Filed: 03/24/2025 15:40 Note Text: ED Follow-Up Note Provider Action / FYI: Refill - Percocet, Med pended Still having pain - Same since 03/21/25 appointment Call completed by: RN Patient seen in ED: Out of Network ED Contact made with Patient: Yes The patient was identified by Name and Date of . Discussed Care with: patient Patient was seen in the Emergency Department (ED) Location: [facility] ED Date: 03/19/25 Reason for ED Visit: ABD pain ED Intervention: CT ABD/Pelvis Labs New Medications: None Medication Changes: None Does patient understand medication changes: N/A Can patient afford medication changes: N/A Patient educated on worsening symptoms and when and where to seek additional care: Yes Patient Education Provided including treatment plan and new orders. Patient provided with appropriate counseling: Yes Based on survey party chief, the following disposition is advised: No symptoms or symptoms present, not severe. Routed to: No Action Needed Pt is still in a lot of pain. Her pain is the same since she saw her PCP on 03/21/25. Pain meds help her a little bit. States that she needs a refill on her Percocet. Med pended. Mayuri Garcia RN March 24, 2025 3:37 PM WILLIAMN Observed: 03/24/2025 12:00 AM Status: COMPLETED Source: [facility] Telephone (AGMR PrestaLE) AISSATOU JOHNSON ([id number]) 1990 F Date Time Provider Department 03/24/25 PAM MCGHEE During your visit today, we recorded the following information about you: Cathy Guzman MA 03/24/2025 9:48 AM Signed Patient lm on vm wanting to know how she gets a CT scan ordered. Please advise. DEEP [place] Brittny A, LOADING INSPECTOR.[facility] 03/24/2025 10:34 AM Signed I instructed her that I am checking with her mems device scientist but doing another CT abd would not be beneficial again especially without contrast. They also said she is having further testing with GI for a small bowel follow through. Allergies As of Date: 03/24/2025 Noted Allergy Reaction ATORVASTATIN 07/03/2015 16 - Unknown BISACODYL 03/21/2025 16 - Unknown CATS 10/27/2010 12 - Shortness of Breath DROPERIDOL 08/06/2012 10 - Anaphylaxis LAXATIVE PILL 09/25/2019 8 - GI Upset MEPERIDINE 07/03/2015 16 - Unknown SENNOSIDES 09/25/2019 14 - Other: See Comments Date Reviewed: 03/21/2025 Reviewed by: Pam Mcghee APRN.PROFESSIONAL BUILDER - Fully Assessed Reason for Visit: Patient Question [7367] Prescriptions as of 03/24/2025 - gabapentin (NEURONTIN) 100 mg capsule Take 1-2 capsules by mouth daily at bedtime for 30 days. - levothyroxine (SYNTHROID) 88 mcg tablet Take 1 tablet by mouth daily before breakfast. - oxyCODONE-acetaminophen (PERCOCET) 5-325 mg tablet Take 1 tablet by mouth every 8 hours as needed for pain for up to 3 days. - ondansetron orally disintegrating (ZOFRAN ODT) 4 mg disintegrating tablet Take 1 tablet by mouth every 8 hours as needed for nausea/vomiting. - SUMAtriptan (IMITREX) 100 mg tablet Take [...] 1 capsule by mouth once daily. - OTC PRODUCT Vitamin D [...] home medications Problem List As Of Date 03/24/2025 Noted Resolved Hodgkin lymphoma (HCC) [C81.90] 10/22/2010 [...] left ear [H91.92] 07/11/2024 Encounter Status:Closed by CATHY GUZMAN on 03/24/25 PROGRESS Observed: 03/21/2025 5:23 PM Status: COMPLETED Source: [facility] HNO ID: [id number] Author: PAM MCGHEE APRN.PROFESSIONAL BUILDER Service: ? Author Type: Nurse Practitioner Type: Progress Notes Filed: 03/23/2025 17:18 Note Text: CHIEF COMPLAINT: The patient is a 34-year-old female with history of non-Hodgkin?s lymphoma in remission, CKD, and gastroparesis, presenting for evaluation of persistent abdominal pain with nausea and vomiting. Accompanied by her mother, who is supplementing history. I reviewed past medical, surgical, social, and family histories today and updated chart. Allergies, chronic medications, and supplements were also reviewed. Recording using FullContact software for draft documentation of the visit was discussed with the patient/authorized junior sales representative; all questions welcomed and answered. Patient/authorized junior sales representative agreed to proceed Abdominal Pain: - Severe abdominal pain, particularly in the LLQ, radiating to the back and upwards. - Recent EGD on 03/18 revealed gastroparesis and gastritis; biopsy pending. - Recent CT abdomen without IV contrast due to CKD showed hepatomegaly with diffuse steatosis, gaseous dilation of large bowel loops, and scattered mesenteric lymph nodes. - CT findings suggested possible infectious or inflammatory process; evaluation limited due to lack of contrast. - Recent laparoscopic cholecystectomy for biliary colic; pain persists post-surgery. - Recent weight loss, now 104 lbs; BMI 15.36. - Denies urinary symptoms; recent normal bowel movement with green color. - Taking Prilosec 40 mg daily. Non-Hodgkin's Lymphoma: - Under the care of Dr. Parry, hematology. - Recent CT findings of scattered mesenteric lymph nodes states possibly related to non-Hodgkin's lymphoma. - Dr. Figueroa reviewed CT and advised lymph nodes likely not related to lymphoma history; not urgent. Opioid Dependence: - Currently on Suboxone; history of methamphetamine/opioid abuse. - She received a short course of Percocet post-surgery; held Suboxone during this time. - Reports feeling dismissed and treated as drug-seeking in [place] [facility] due to Suboxone use. - Has Narcan at home. PAST MEDICAL HISTORY Diagnosis Date Alcohol abuse [...] 2022 HERPES 1 AND 2, IGB+ 2011 LAPAROSCOPIC CHOLECYSTECTOMY 02/25/2025 NEXPLANON INSERTION Left 04/20/2023 Placed in office PAST SURGICAL HISTORY OF kidney surgery PAST SURGICAL HISTORY OF rectal PAST SURGICAL HISTORY OF 06/09/2009 Left Supraclavicular Lymphnode Excision VSD CLOSURE SOCIAL HISTORY[1] ALLERGIES Allergen Reactions Atorvastatin Unknown Bisacodyl Unknown Cats Shortness of Breath Droperidol Anaphylaxis Laxative Pill GI Upset Meperidine Unknown Sennosides Other: See Comments Family History Problem Relation Age of Onset Hypertension Mother other (depresssion) Mother No Known Problems Father Lung Cancer Maternal Grandfather other (ulcerative colitis) Paternal Grandmother Diabetes Maternal Aunt Current Outpatient Medications Medication Sig Dispense Refill gabapentin (NEURONTIN) 100 mg capsule Take 1-2 capsules by mouth daily at bedtime for 30 days. 60 capsule 0 levothyroxine (SYNTHROID) 88 mcg tablet Take 1 tablet by mouth daily before breakfast. 90 tablet 0 oxyCODONE-acetaminophen (PERCOCET) 5-325 mg tablet Take 1 tablet by mouth every 8 hours as needed for pain for up to 3 days. 9 tablet 0 ondansetron orally disintegrating (ZOFRAN ODT) 4 mg disintegrating tablet Take 1 tablet by mouth every 8 hours as needed for nausea/vomiting. 30 tablet 0 SUMAtriptan (IMITREX) 100 mg tablet Take 1 [...] by mouth once daily. 30 capsule 1 OTC PRODUCT Vitamin D drops valACYclovir (VALTREX) 500 mg tablet Take 1 tablet by mouth once daily. 90 tablet 1 zinc sulfate 220 mg (50 mg zinc) [...] of Systems Constitutional: (+) weight loss, (+) fatigue, (+) hot/cold flashes Neurological: (+) dizziness, (+) weakness Gastrointestinal: (+) left lower quadrant abdominal pain radiating to back, (+) nausea, (+) vomiting, (-) hematochezia Genitourinary: (-) urinary symptoms Musculoskeletal: (+) back pain BP 106/64 Pulse 81 Temp (Src) 98 (Oral) Resp 19 Ht 5' 9 (1.75m) Wt 104 lb (47.2kg) SpO2 98% LMP 04/15/2023 BMI 15.35 kg/(m2). Physical Exam GENERAL: Very thin. Appears uncomfortable, leaning back and forth throughout exam, rubbing abdomen SKIN: unremarkable, no rash or skin lesions. NECK: Supple, no lymphadenopathy, normal thyroid LUNGS: Clear to auscultation bilaterally, no wheezes/rhonchi/rales. HEART: Regular rate and rhythm, no murmurs. No ectopy. ABDOMEN: Very tender on palpation throughout, particularly in the lower abdomen. EXTREMITIES: Normal, No deformities, No skin discoloration, No edema. NEURO: Awake, alert and oriented x 3 No visits with results within 1 Day(s) from this visit. Latest known visit with results is: Appointment on 03/19/2025 Component Date Value Ref Range Status TSH 03/19/2025 11.700 (H) 0.270 - 4.200 mIU/L Final If the patient is , TSH reference range varies by gestational period: First Trimester (weeks 9-12): 0.180-2.990 mIU/L Second Trimester: 0.110-3.980 mIU/L Third Trimester: 0.480-4.710 mIU/L Leo Tinsley et al. A Practical Approach for the Verifications and Determination of Site- and Trimester-Specific Reference Intervals for Thyroid Function tests in . Thyroid, 2019:29:3:412-420. Renny Morelos, et al. 2017 Guidelines of the [place] Thyroid Association for the Diagnosis and Management of Thyroid Disease during and the . Thyroid, 2017:27:3:315-389. Creatinine, Ur Random (UCRR) 03/19/2025 92.4 20.0 - 300.0 mg/dL Final Albumin, Urine Random 03/19/2025 1,334.9 mg/L Final Albumin/Creat Ratio 03/19/2025 1,445 (H) <30 mg/g Final Adult Male and Female Nephrotic Criteria: <30 mg/g is considered normal to mildly increased 30-300 mg/g is considered moderately increased >300 mg/g is considered severely increased KDIGO. (2013). KDIGO 2012 Clinical Practice Guideline for the Evaluation and Management of Chronic Kidney Disease. Official Journal of the International Society of Nephrology, 3(1), 1-150. Protein, Urine Random 03/19/2025 212 (H) 0 - 20 mg/dL Final Creatinine, Ur Random (UCRR) 03/19/2025 92.4 20.0 - 300.0 mg/dL Final Protein/Creat Ratio 03/19/2025 2.29 (H) <0.15 mg/mg Final Adult Proteinuria Categories: <0.15 mg/mg is considered normal to mildly increased 0.15 - 0.50 mg/mg is considered moderately increased >0.50 mg/mg is considered severely increased KDIGO. (2013). KDIGO 2012 Clinical Practice Guideline for the Evaluation and Management of Chronic Kidney Disease. Official Journal of the International Society of Nephrology, 3(1), 1-150. Albumin 03/19/2025 4.4 3.9 - 4.9 g/dL Final Calcium, Total 03/19/2025 9.9 8.5 - 10.2 mg/dL Final Phosphorus 03/19/2025 3.6 2.7 - 4.8 mg/dL Final Glucose 03/19/2025 122 (H) 74 - 99 mg/dL Final The [place] Diabetes Association (ADA) provides guidance for cutoff [...] Standards of Medical Care in Diabetes 2016, [place] Diabetes Association. Diabetes Care. 2016.39(Suppl 1). BUN 03/19/2025 20 7 - 21 mg/dL Final Creatinine 03/19/2025 2.25 (H) 0.58 - 0.96 mg/dL Final Sodium 03/19/2025 140 136 - 144 mmol/L Final Potassium 03/19/2025 3.6 (L) 3.7 - 5.1 mmol/L Final Chloride 03/19/2025 106 98 - 107 mmol/L Final CO2 03/19/2025 22 22 - 30 mmol/L Final Anion Gap 03/19/2025 12 8 - 15 mmol/L Final Estimated Glomerular Filtration Ra* 03/19/2025 29 (L) >=60 mL/min/1.73m? Final Estimated Glomerular Filtration Rate (eGFR) is calculated using the 2020 CKD-EPI creatinine equation. This equation utilizes serum creatinine, sex, and age as parameters. The creatinine assay has traceable calibration to isotope dilution-mass spectrometry. Refer to KDIGO guidelines for clinical interpretation. In patients with unstable renal function, e.g. those with acute kidney injury, the eGFR may not accurately reflect actual GFR. Cystatin C 03/19/2025 2.36 (H) 0.61 - 0.95 mg/L Final Cystatin C eGFR 03/19/2025 26 (L) >=60 mL/min/1.73m? Final Estimated Glomerular Filtration Rate (eGFR) is calculated using the 2011 CKD-EPI cystatin C equation. This equation utilizes serum cystatin C, sex, and age as parameters. The cystatin C assay has traceable calibration to the ERM-DA471/IF reference material. Refer to KDIGO guidelines for clinical interpretation. In patients with unstable renal function, e.g. those with acute kidney injury, the eGFR may not accurately reflect actual GFR. Creatinine 03/19/2025 2.25 (H) 0.58 - 0.96 mg/dL Final Estimated Glomerular Filtration Ra* 03/19/2025 29 (L) >=60 mL/min/1.73m? Final Estimated Glomerular Filtration Rate (eGFR) is calculated using the 2020 CKD-EPI creatinine equation. This equation utilizes serum creatinine, sex, and age as parameters. The creatinine assay has traceable calibration to isotope dilution-mass spectrometry. Refer to KDIGO guidelines for clinical interpretation. In patients with unstable renal function, e.g. those with acute kidney injury, the eGFR may not accurately reflect actual GFR. Free T4 03/19/2025 1.1 0.9 - 1.7 ng/dL Final Labs: (03/19) - Renal function: Decreased TSH: 11 Imaging: (03/19) CT Abdomen without contrast: - Hepatomegaly with diffuse steatosis - Gaseous dilation of large bowel loops - Possible scattered mesenteric lymph nodes - Markedly dilated urinary bladder - Soft tissue mass in the right pelvis, likely a deviated uterus with prominent right adnexa - Evaluation limited due to lack of contrast Tests: (03/18) EGD: - Findings: Gastroparesis, gastritis - Biopsy: Pathology pending ASSESSMENT/PLAN: 1. Continuous LLQ abdominal pain (R10.32) 2. Gastroparesis (K31.84) 3. Unintentional weight loss of more than 10 pounds in 90 days (R63.4) 4. S/P cholecystectomy (Z90.49) - Persistent severe LLQ abdominal pain radiating to back and upwards, with ongoing weight loss (104 lbs, BMI 15.36, down from 111 lbs), chronic nausea, and vomiting. - Recent EGD (03/18) with Dr. Reese revealed gastroparesis and gastritis; biopsy obtained, pathology pending. This may be the cause of her pain. - CT abdomen (03/19) without IV contrast due to CKD showed hepatomegaly with diffuse steatosis, gaseous dilation of large bowel loops, scattered mesenteric lymph nodes, and a soft tissue mass within the right pelvis; evaluation limited by lack of contrast. - Reviewed message from Dr. Figueroa (covering for Dr. Parry) regarding CT findings: lymph nodes likely not related to history of non-Hodgkin's lymphoma, not urgent. - Start Percocet for 3 days for pain management; instructed to hold Suboxone during this period. Will only be given this prescription. - Start gabapentin after completion of Percocet course; advised not to take gabapentin and Percocet concurrently. - Educated on risks of sedation and respiratory depression with concurrent use of opioids and gabapentin; confirmed Narcan available at home. - Continue Prilosec 40 mg once daily. - Small bowel follow-through ordered by GI to evaluate for obstruction. - Follow-up with Dr. Reese (GI) and keep [facility] appointment in April for second opinion. - Will coordinate with nephrology and hematology/oncology regarding further imaging and management. 5. Chronic kidney disease, unspecified CKD stage (N18.9) 6. Congenital solitary kidney (Q60.0) - CKD with congenital solitary kidney; recent labs showed low kidney function, precluding use of IV contrast for imaging. - Will coordinate with nephrology (Dr. Shah) regarding safety of future imaging with contrast. 7. Hypothyroidism, unspecified type (E03.9) - TSH elevated at 11; levothyroxine dose increased to 88 mcg. - Continue current levothyroxine regimen. 8. History of Hodgkin's lymphoma (Z85.71) - Under the care of hematology/oncology 9. Generalized anxiety disorder (F41.1) - Increased anxiety currently, not currently taking any medication 10. MCC (current) use of opiate analgesic (Z79.891) - On Suboxone for history of opioid dependence; recently used Percocet post-cholecystectomy with Suboxone held. - Advised to hold Suboxone while taking Percocet for pain management. - Discussed risks of opioid use and importance of not taking Suboxone and Percocet together. PDMP website checked and validated. All prescriptions have been APPROPRIATELY filled. No suspicious activity was identified. She is currently prescribed Suboxone from Suboxone clinic. 03/21/2025 by Pam Mcghee APRN.PROFESSIONAL BUILDER New medication(s) prescribed today: Yes: Percocet. Discussed new medication dosage, usage, goals of therapy, and side effects. Patient has been apprised of any potential drug interactions to be aware of. Patient expresses understanding. Counseling completed in adopting health behaviors such as avoiding excessive alcohol use, avoid tobacco use, improve nutrition, and engage in physical activities. Copy of written care plan, clinical summary, treatment plan, new medications, goals, and self management requirements were given to patient. Pam Mcghee APRN.PROFESSIONAL BUILDER [1] Social History Tobacco Use Smoking status: [...] used heroin and crack November 12, 2021 CNOV Observed: 03/21/2025 5:00 PM Status: COMPLETED Source: [facility] Office Visit (AGFAMPLE) AISSATOU JOHNSON ([id number]) 1990 F Date Time Provider Department 03/21/25 5:00 PM PAM MCGHEE During your visit today, we recorded the following information about you: Temperature Pulse Respiration Blood pressure 98 degrees 81/minute 19/minute 106/64 Weight Height 47.2 kg 1.753 m Pam Mcghee APRN.CNP 03/23/2025 5:18 PM Signed CHIEF COMPLAINT: The patient is a 34-year-old female with history of non-Hodgkin?s lymphoma in remission, CKD, and gastroparesis, presenting for evaluation of persistent abdominal pain with nausea and vomiting. Accompanied by her mother, who is supplementing history. I reviewed past medical, surgical, social, and family histories today and updated chart. Allergies, chronic medications, and supplements were also reviewed. Recording using FullContact software for draft documentation of the visit was discussed with the patient/authorized junior sales representative; all questions welcomed and answered. Patient/authorized junior sales representative agreed to proceed Abdominal Pain: - Severe abdominal pain, particularly in the LLQ, radiating to the back and upwards. - Recent EGD on 03/18 revealed gastroparesis and gastritis; biopsy pending. - Recent CT abdomen without IV contrast due to CKD showed hepatomegaly with diffuse steatosis, gaseous dilation of large bowel loops, and scattered mesenteric lymph nodes. - CT findings suggested possible infectious or inflammatory process; evaluation limited due to lack of contrast. - Recent laparoscopic cholecystectomy for biliary colic; pain persists post-surgery. - Recent weight loss, now 104 lbs; BMI 15.36. - Denies urinary symptoms; recent normal bowel movement with green color. - Taking Prilosec 40 mg daily. Non-Hodgkin's Lymphoma: - Under the care of Dr. Parry, hematology. - Recent CT findings of scattered mesenteric lymph nodes states possibly related to non-Hodgkin's lymphoma. - Dr. Figueroa reviewed CT and advised lymph nodes likely not related to lymphoma history; not urgent. Opioid Dependence: - Currently on Suboxone; history of methamphetamine/opioid abuse. - She received a short course of Percocet post-surgery; held Suboxone during this time. - Reports feeling dismissed and treated as drug-seeking in [facility] due to Suboxone use. - Has Narcan at home. PAST MEDICAL HISTORY Diagnosis Date Alcohol abuse [...] 2022 HERPES 1 AND 2, IGB+ 2011 LAPAROSCOPIC CHOLECYSTECTOMY 02/25/2025 NEXPLANON INSERTION Left 04/20/2023 Placed in office PAST SURGICAL HISTORY OF kidney surgery PAST SURGICAL HISTORY OF rectal PAST SURGICAL HISTORY OF 06/09/2009 Left Supraclavicular Lymphnode Excision VSD CLOSURE SOCIAL HISTORY[1] ALLERGIES Allergen Reactions Atorvastatin Unknown Bisacodyl Unknown Cats Shortness of Breath Droperidol Anaphylaxis Laxative Pill GI Upset Meperidine Unknown Sennosides Other: See Comments Family History Problem Relation Age of Onset Hypertension Mother other (depresssion) Mother No Known Problems Father Lung Cancer Maternal Grandfather other (ulcerative colitis) Paternal Grandmother Diabetes Maternal Aunt Current Outpatient Medications Medication Sig Dispense Refill gabapentin (NEURONTIN) 100 mg capsule Take 1-2 capsules by mouth daily at bedtime for 30 days. 60 capsule 0 levothyroxine (SYNTHROID) 88 mcg tablet Take 1 tablet by mouth daily before breakfast. 90 tablet 0 oxyCODONE-acetaminophen (PERCOCET) 5-325 mg tablet Take 1 tablet by mouth every 8 hours as needed for pain for up to 3 days. 9 tablet 0 ondansetron orally disintegrating (ZOFRAN ODT) 4 mg disintegrating tablet Take 1 tablet by mouth every 8 hours as needed for nausea/vomiting. 30 tablet 0 SUMAtriptan (IMITREX) 100 mg tablet Take 1 [...] by mouth once daily. 30 capsule 1 OTC PRODUCT Vitamin D drops valACYclovir (VALTREX) 500 mg tablet Take 1 tablet by mouth once daily. 90 tablet 1 zinc sulfate 220 mg (50 mg zinc) [...] of Systems Constitutional: (+) weight loss, (+) fatigue, (+) hot/cold flashes Neurological: (+) dizziness, (+) weakness Gastrointestinal: (+) left lower quadrant abdominal pain radiating to back, (+) nausea, (+) vomiting, (-) hematochezia Genitourinary: (-) urinary symptoms Musculoskeletal: (+) back pain BP 106/64 Pulse 81 Temp (Src) 98 (Oral) Resp 19 Ht 5' 9 (1.75m) Wt 104 lb (47.2kg) SpO2 98% LMP 04/15/2023 BMI 15.35 kg/(m2). Physical Exam GENERAL: Very thin. Appears uncomfortable, leaning back and forth throughout exam, rubbing abdomen SKIN: unremarkable, no rash or skin lesions. NECK: Supple, no lymphadenopathy, normal thyroid LUNGS: Clear to auscultation bilaterally, no wheezes/rhonchi/rales. HEART: Regular rate and rhythm, no murmurs. No ectopy. ABDOMEN: Very tender on palpation throughout, particularly in the lower abdomen. EXTREMITIES: Normal, No deformities, No skin discoloration, No edema. NEURO: Awake, alert and oriented x 3 No visits with results within 1 Day(s) from this visit. Latest known visit with results is: Appointment on 03/19/2025 Component Date Value Ref Range Status TSH 03/19/2025 11.700 (H) 0.270 - 4.200 mIU/L Final If the patient is , TSH reference range varies by gestational period: First Trimester (weeks 9-12): 0.180-2.990 mIU/L Second Trimester: 0.110-3.980 mIU/L Third Trimester: 0.480-4.710 mIU/L Leo Tinsley, et al. A Practical Approach for the Verifications and Determination of Site- and Trimester-Specific Reference Intervals for Thyroid Function tests in . Thyroid, 2019:29:3:412-420. Renny Morelos, et al. 2017 Guidelines of the [place] Thyroid Association for the Diagnosis and Management of Thyroid Disease during and the . Thyroid, 2017:27:3:315-389. Creatinine, Ur Random (UCRR) 03/19/2025 92.4 20.0 - 300.0 mg/dL Final Albumin, Urine Random 03/19/2025 1,334.9 mg/L Final Albumin/Creat Ratio 03/19/2025 1,445 (H) <30 mg/g Final Adult Male and Female Nephrotic Criteria: <30 mg/g is considered normal to mildly increased 30-300 mg/g is considered moderately increased >300 mg/g is considered severely increased KDIGO. (2013). KDIGO 2012 Clinical Practice Guideline for the Evaluation and Management of Chronic Kidney Disease. Official Journal of the International Society of Nephrology, 3(1), 1-150. Protein, Urine Random 03/19/2025 212 (H) 0 - 20 mg/dL Final Creatinine, Ur Random (UCRR) 03/19/2025 92.4 20.0 - 300.0 mg/dL Final Protein/Creat Ratio 03/19/2025 2.29 (H) <0.15 mg/mg Final Adult Proteinuria Categories: <0.15 mg/mg is considered normal to mildly increased 0.15 - 0.50 mg/mg is considered moderately increased >0.50 mg/mg is considered severely increased KDIGO. (2013). KDIGO 2012 Clinical Practice Guideline for the Evaluation and Management of Chronic Kidney Disease. Official Journal of the International Society of Nephrology, 3(1), 1-150. Albumin 03/19/2025 4.4 3.9 - 4.9 g/dL Final Calcium, Total 03/19/2025 9.9 8.5 - 10.2 mg/dL Final Phosphorus 03/19/2025 3.6 2.7 - 4.8 mg/dL Final Glucose 03/19/2025 122 (H) 74 - 99 mg/dL Final The [place] Diabetes Association (ADA) provides guidance for cutoff [...] Standards of Medical Care in Diabetes 2016, [place] Diabetes Association. Diabetes Care. 2016.39(Suppl 1). BUN 03/19/2025 20 7 - 21 mg/dL Final Creatinine 03/19/2025 2.25 (H) 0.58 - 0.96 mg/dL Final Sodium 03/19/2025 140 136 - 144 mmol/L Final Potassium 03/19/2025 3.6 (L) 3.7 - 5.1 mmol/L Final Chloride 03/19/2025 106 98 - 107 mmol/L Final CO2 03/19/2025 22 22 - 30 mmol/L Final Anion Gap 03/19/2025 12 8 - 15 mmol/L Final Estimated Glomerular Filtration Ra* 03/19/2025 29 (L) >=60 mL/min/1.73m? Final Estimated Glomerular Filtration Rate (eGFR) is calculated using the 2020 CKD-EPI creatinine equation. This equation utilizes serum creatinine, sex, and age as parameters. The creatinine assay has traceable calibration to isotope dilution-mass spectrometry. Refer to KDIGO guidelines for clinical interpretation. In patients with unstable renal function, e.g. those with acute kidney injury, the eGFR may not accurately reflect actual GFR. Cystatin C 03/19/2025 2.36 (H) 0.61 - 0.95 mg/L Final Cystatin C eGFR 03/19/2025 26 (L) >=60 mL/min/1.73m? Final Estimated Glomerular Filtration Rate (eGFR) is calculated using the 2012 CKD-EPI cystatin C equation. This equation utilizes serum cystatin C, sex, and age as parameters. The cystatin C assay has traceable calibration to the ERM-DA471/IF reference material. Refer to KDIGO guidelines for clinical interpretation. In patients with unstable renal function, e.g. those with acute kidney injury, the eGFR may not accurately reflect actual GFR. Creatinine 03/19/2025 2.25 (H) 0.58 - 0.96 mg/dL Final Estimated Glomerular Filtration Ra* 03/19/2025 29 (L) >=60 mL/min/1.73m? Final Estimated Glomerular Filtration Rate (eGFR) is calculated using the 2020 CKD-EPI creatinine equation. This equation utilizes serum creatinine, sex, and age as parameters. The creatinine assay has traceable calibration to isotope dilution-mass spectrometry. Refer to KDIGO guidelines for clinical interpretation. In patients with unstable renal function, e.g. those with acute kidney injury, the eGFR may not accurately reflect actual GFR. Free T4 03/19/2025 1.1 0.9 - 1.7 ng/dL Final Labs: (03/19) - Renal function: Decreased TSH: 11 Imaging: (03/19) CT Abdomen without contrast: - Hepatomegaly with diffuse steatosis - Gaseous dilation of large bowel loops - Possible scattered mesenteric lymph nodes - Markedly dilated urinary bladder - Soft tissue mass in the right pelvis, likely a deviated uterus with prominent right adnexa - Evaluation limited due to lack of contrast Tests: (03/18) EGD: - Findings: Gastroparesis, gastritis - Biopsy: Pathology pending ASSESSMENT/PLAN: 1. Continuous LLQ abdominal pain (R10.32) 2. Gastroparesis (K31.84) 3. Unintentional weight loss of more than 10 pounds in 90 days (R63.4) 4. S/P cholecystectomy (Z90.49) - Persistent severe LLQ abdominal pain radiating to back and upwards, with ongoing weight loss (104 lbs, BMI 15.36, down from 111 lbs), chronic nausea, and vomiting. - Recent EGD (03/18) with Dr. Reese revealed gastroparesis and gastritis; biopsy obtained, pathology pending. This may be the cause of her pain. - CT abdomen (03/19) without IV contrast due to CKD showed hepatomegaly with diffuse steatosis, gaseous dilation of large bowel loops, scattered mesenteric lymph nodes, and a soft tissue mass within the right pelvis; evaluation limited by lack of contrast. - Reviewed message from Dr. Figueroa (covering for Dr. Parry) regarding CT findings: lymph nodes likely not related to history of non-Hodgkin's lymphoma, not urgent. - Start Percocet for 3 days for pain management; instructed to hold Suboxone during this period. Will only be given this prescription. - Start gabapentin after completion of Percocet course; advised not to take gabapentin and Percocet concurrently. - Educated on risks of sedation and respiratory depression with concurrent use of opioids and gabapentin; confirmed Narcan available at home. - Continue Prilosec 40 mg once daily. - Small bowel follow-through ordered by GI to evaluate for obstruction. - Follow-up with Dr. Reese (GI) and keep [facility] appointment in April for second opinion. - Will coordinate with nephrology and hematology/oncology regarding further imaging and management. 5. Chronic kidney disease, unspecified CKD stage (N18.9) 6. Congenital solitary kidney (Q60.0) - CKD with congenital solitary kidney; recent labs showed low kidney function, precluding use of IV contrast for imaging. - Will coordinate with nephrology (Dr. Shah) regarding safety of future imaging with contrast. 7. Hypothyroidism, unspecified type (E03.9) - TSH elevated at 11; levothyroxine dose increased to 88 mcg. - Continue current levothyroxine regimen. 8. History of Hodgkin's lymphoma (Z85.71) - Under the care of hematology/oncology 9. Generalized anxiety disorder (F41.1) - Increased anxiety currently, not currently taking any medication 10. MCC (current) use of opiate analgesic (Z79.891) - On Suboxone for history of opioid dependence; recently used Percocet post-cholecystectomy with Suboxone held. - Advised to hold Suboxone while taking Percocet for pain management. - Discussed risks of opioid use and importance of not taking Suboxone and Percocet together. PDMP website checked and validated. All prescriptions have been APPROPRIATELY filled. No suspicious activity was identified. She is currently prescribed Suboxone from Suboxone clinic. 03/21/2025 by Pam Mcghee APRN.CNP New medication(s) prescribed today: Yes: Percocet. Discussed new medication dosage, usage, goals of therapy, and side effects. Patient has been apprised of any potential drug interactions to be aware of. Patient expresses understanding. Counseling completed in adopting health behaviors such as avoiding excessive alcohol use, avoid tobacco use, improve nutrition, and engage in physical activities. Copy of written care plan, clinical summary, treatment plan, new medications, goals, and self management requirements were given to patient. Pam Mcghee APRN.WILLIAM [1] Social History Tobacco Use Smoking status: [...] used heroin and crack November 12, 2021 Allergies As of Date: 03/21/2025 Noted Allergy Reaction ATORVASTATIN 07/03/2015 16 - Unknown BISACODYL 03/21/2025 16 - Unknown CATS 10/27/2010 12 - Shortness of Breath DROPERIDOL 08/06/2012 10 - Anaphylaxis LAXATIVE PILL 09/25/2019 8 - GI Upset MEPERIDINE 07/03/2015 16 - Unknown SENNOSIDES 09/25/2019 14 - Other: See Comments Date Reviewed: 03/21/2025 Reviewed by: Queden, Pam A, LOADING INSPECTOR.PROFESSIONAL BUILDER - Fully Assessed Reason for Visit: Pain [78] Primary Visit Diagnosis:Continuous LLQ abdominal pain [R10.32] Other Visit Diagnoses:Gastroparesis [K31.84] Unintentional weight loss of more than 10 pounds in 90 days [R63.4] S/P cholecystectomy [Z90.49] Chronic kidney disease, unspecified CKD stage [N18.9] 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] Hypothyroidism, unspecified type [E03.9] History of Hodgkin's lymphoma [Z85.71] Generalized anxiety disorder [F41.1] MCC (current) use of opiate analgesic [Z79.891] Order(s):oxyCODONE-acetaminophen (PERCOCET) 5-325 mg tabletTake 1 tablet by mouth every 8 hours as needed for pain for up to 3 days.Disp: 9 tabletRfl: 0 Prescriptions as of 03/23/2025 - gabapentin (NEURONTIN) 100 mg capsule Take 1-2 capsules by mouth daily at bedtime for 30 days. - levothyroxine (SYNTHROID) 88 mcg tablet Take 1 tablet by mouth daily before breakfast. - oxyCODONE-acetaminophen (PERCOCET) 5-325 mg tablet Take 1 tablet by mouth every 8 hours as needed for pain for up to 3 days. - ondansetron orally disintegrating (ZOFRAN ODT) 4 mg disintegrating tablet Take 1 tablet by mouth every 8 hours as needed for nausea/vomiting. - SUMAtriptan (IMITREX) 100 mg tablet Take [...] 1 capsule by mouth once daily. 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 Medications Discontinued During This Encounter Prescriptions - buprenorphine-nalOXone SL (SUBOXONE) 8-2 mg subl (Discontinued) Dissolve 2 tablets under the tongue once daily. D/T hyper active thyroid Encounter Status:Closed by PAM MCGHEE on 03/23/25 PROGRESS Observed: 03/21/2025 12:05 PM Status: COMPLETED Source: [facility] HNO ID: [id number] Author: MAYURI GARCIA RN Service: ? Author Type: Registered Nurse Type: Progress Notes Filed: 03/21/2025 12:09 Note Text: ED Follow-Up Note Call completed by: RN Patient seen in ED: Out of Network ED Contact made with Patient: No, unable to leave message. Will reattempt call Mayuri Garcia RN March 21, 2025 12:08 PM CNPTOUTREACH Observed: 03/21/2025 12:00 AM Status: COMPLETED Source: [facility] Patient Outreach (AGACM) AISSATOU JOHNSON ([id number]) 1990 F Date Time Provider Department 03/21/25 MAYURI GARCIA [facility] During your visit today, we recorded the following information about you: Mayuri Garcia RN 03/21/2025 12:09 PM Signed ED Follow-Up Note Call completed by: KIERA Patient seen in ED: Out of Network ED Contact made with Patient: No, unable to leave message. Will reattempt call Mayuri Garcia RN March 21, 2025 12:08 PM Mayuri Garcia RN 03/24/2025 3:40 PM Signed ED Follow-Up Note Provider Action / FYI: Refill - Percocet, Med pended Still having pain - Same since 03/21/25 appointment Call completed by: KIERA Patient seen in ED: Out of Network ED Contact made with Patient: Yes The patient was identified by Name and Date of . Discussed Care with: patient Patient was seen in the Emergency Department (ED) Location: [facility] ED Date: 03/19/25 Reason for ED Visit: ABD pain ED Intervention: CT ABD/Pelvis Labs New Medications: None Medication Changes: None Does patient understand medication changes: N/A Can patient afford medication changes: N/A Patient educated on worsening symptoms and when and where to seek additional care: Yes Patient Education Provided including treatment plan and new orders. Patient provided with appropriate counseling: Yes Based on survey party chief, the following disposition is advised: No symptoms or symptoms present, not severe. Routed to: No Action Needed Pt is still in a lot of pain. Her pain is the same since she saw her PCP on 03/21/25. Pain meds help her a little bit. States that she needs a refill on her Percocet. Med pended. Mayuri Garcia RN March 24, 2025 3:37 PM Mayuri Garcia RN 03/24/2025 3:40 PM Signed Addended by: MAYURI GARCIA on: 03/24/2025 03:40 PM Modules accepted: Orders Pam Mcghee APRN.CNP 03/25/2025 7:58 AM Signed I told the patient and her mother that I can only prescribe her one more refill of the Percocet. She needs to continue to hold the Suboxone while taking. 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 - gabapentin (NEURONTIN) 100 mg capsule Take 1-2 capsules by mouth daily at bedtime for 30 days. - levothyroxine (SYNTHROID) 88 mcg tablet Take 1 tablet by mouth daily before breakfast. - ondansetron orally disintegrating (ZOFRAN ODT) 4 mg disintegrating tablet Take 1 tablet by mouth every 8 hours as needed for nausea/vomiting. - SUMAtriptan (IMITREX) 100 mg tablet Take [...] 1 capsule by mouth once daily. 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 Medications Discontinued During This Encounter Prescriptions - oxyCODONE-acetaminophen (PERCOCET) 5-325 mg tablet (Discontinued) Take 1 tablet by mouth every 8 hours as needed for pain for up to 3 days. Encounter Status:Closed by MAYURI GARCIA on 03/21/25 JADE Observed: 03/21/2025 12:00 AM Status: COMPLETED Source: [facility] Telephone (AGFAMPLE) AISSATOU JOHNSON ([id number]) 1990 F Date Time Provider Department 03/21/25 PAM MCGHEE During your visit today, we recorded the following information about you: Jag Rizzo 03/21/2025 2:58 PM Signed Patient called in wanting a stat MRI with contrast. Patient stated that she would be scheduled two weeks out and could not wait that long due to being in pain. 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 Charlotte Varghese MA 03/21/2025 3:28 PM Signed She wants to check for cancer she is willing to sign a waiver to get the contrast because she wants to get this DREAD. Allergies As of Date: 03/21/2025 Noted Allergy Reaction ATORVASTATIN 07/03/2015 16 - Unknown CATS 10/27/2010 12 - Shortness of Breath DROPERIDOL 08/06/2012 10 - Anaphylaxis LAXATIVE PILL 09/25/2019 8 - GI Upset MEPERIDINE 07/03/2015 16 - Unknown SENNOSIDES 09/25/2019 14 - Other: See Comments Date Reviewed: 03/18/2025 Reviewed by: Dalia Rdz, RT(R) - Fully Assessed Prescriptions as of 03/21/2025 - gabapentin (NEURONTIN) 100 mg capsule Take 1-2 capsules by mouth daily at bedtime for 30 days. - levothyroxine (SYNTHROID) 88 mcg tablet Take 1 tablet by mouth daily before breakfast. - ondansetron orally disintegrating (ZOFRAN ODT) 4 mg disintegrating tablet Take 1 tablet by mouth every 8 hours as needed for nausea/vomiting. - SUMAtriptan (IMITREX) 100 mg tablet Take [...] home medications Problem List As Of Date 03/21/2025 Noted Resolved Hodgkin lymphoma (HCC) [C81.90] 10/22/2010 [...] left ear [H91.92] 07/11/2024 Encounter Status:Closed by JAG RIZZO on 03/21/25 JADE Observed: 03/21/2025 12:00 AM Status: COMPLETED Source: [facility] Telephone (HEMAWS) ELIZABETHAISSATOU ([id number]) 1990 F Date Time Provider Department 03/21/25 JUAN R PARRY During your visit today, we recorded the following information about you: Mario Guardado Lindsay 03/21/2025 12:18 PM Signed Patient called stating she is in a great deal of pain and was unable to have CT completed at our location due to kidney levels. She was informed to go to [facility] for possible admission and was not. She states [facility] would not do CT either due to levels. She is requesting to speak with clinical today. Michelle Bernabe LPN 03/21/2025 12:47 PM Signed Spoke with patient , informed [facility] refused also to do CT scan , states she is having a great deal of pain in her left lower back radiating upward. Rates at a 10 on the pain scale, constant , not taking any pain relievers since she is in recovery. Currently on Suboxone. Informed if pain is bothering her that much I would recommend she go to [facility] to be worked up. States her family Is trying to find her an alternative. TRACIE Cardona Cathleen, RN 03/24/2025 10:29 AM Addendum See other phone encounter from yesterday and today addressing same issue. Patient did have CT A/P w/out contrast at [facility] on 03/19/25. This was reviewed by Dr. Figueroa regarding scattered mesenteric lymph nodes; possibly related to paitent underlying history of non-Hodgkin's lymphoma Dr. Figueroa, who is covering for Dr. Parry, advises not likely related, not urgent and patient can follow up with PCP or have Dr. Parry address when returns to office on 03/31/25. Manuel Cameron RN Allergies As of Date: 03/21/2025 Noted Allergy Reaction ATORVASTATIN 07/03/2015 16 - Unknown BISACODYL 03/21/2025 16 - Unknown CATS 10/27/2010 12 - Shortness of Breath DROPERIDOL 08/06/2012 10 - Anaphylaxis LAXATIVE PILL 09/25/2019 8 - GI Upset MEPERIDINE 07/03/2015 16 - Unknown SENNOSIDES 09/25/2019 14 - Other: See Comments Date Reviewed: 03/21/2025 Reviewed by: Pam Mcghee APRN.PROFESSIONAL BUILDER - Fully Assessed Reason for Visit: Pain [78] Prescriptions as of 03/24/2025 - gabapentin (NEURONTIN) 100 mg capsule Take 1-2 capsules by mouth daily at bedtime for 30 days. - levothyroxine (SYNTHROID) 88 mcg tablet Take 1 tablet by mouth daily before breakfast. - oxyCODONE-acetaminophen (PERCOCET) 5-325 mg tablet Take 1 tablet by mouth every 8 hours as needed for pain for up to 3 days. - ondansetron orally disintegrating (ZOFRAN ODT) 4 mg disintegrating tablet Take 1 tablet by mouth every 8 hours as needed for nausea/vomiting. - SUMAtriptan (IMITREX) 100 mg tablet Take [...] 1 capsule by mouth once daily. - OTC PRODUCT Vitamin D [...] home medications Problem List As Of Date 03/21/2025 Noted Resolved Hodgkin lymphoma (HCC) [C81.90] 10/22/2010 [...] left ear [H91.92] 07/11/2024 Encounter Status:Closed by ANDERSON CAMERON on 03/24/25 JADE Observed: 03/20/2025 12:00 AM Status: COMPLETED Source: [facility] Telephone (AGFAMPLE) AISSATOU JOHNSON ([id number]) 1990 F Date Time Provider Department 03/20/25 PAM MCHGEE During your visit today, we recorded the following information about you: Charlotte Varghese MA 03/20/2025 11:19 AM Signed I spoke with Aissatou's mother Michelle she states that she feels like she is dying in front of her. She went to get her CT done but they refused because her kidney function is only at 29% so they refused to do the scan with the contrast and directed her to ED. At the ED at [facility] they didn't do anything. After talking to PCP Michelle was directed to take her to [facility] Roberts Mary, MA 03/21/2025 10:31 AM Signed Pt. Lm on vm stating she went to ER and is still in a lot of pain. She is requesting appointment with you or if you can refer her to someone .please advise. Cathy Guzman MA Pam Mcghee APRN.WILLIAM 03/21/2025 10:39 AM Signed She needs to go to a [facility] ER if she is in severe pain. I cannot treat her without seeing her. Pam Mcghee APRN.WILLIAM 03/21/2025 12:35 PM Signed Feeling fatigue, losing weight, dizziness, pain in left lower quad to center of her back and radiating up the back. Went to [facility] on Monday and states they refused to do tests and did not treat her well because of her past. Did not do CT abd with contrast because of her kidneys. Had labs drawn though. She is trying to eat and drink but is very nauseous. She is down to 104 lbs. Has medication for it to take as needed. She follows with Dr. Reese with [facility]. Had an EGD on Monday and was diagnosed with Gastroparesis. Not currently on any medication for it. She should avoid opoid medications due to delayed gastric emptying. Will send in a low dose of Gabapentin to help. CT/Abdomen/Pelvis without Cont IMPRESSION: Hepatomegaly with diffuse steatosis. Gaseous dilatation of large bowel loops . Distended small bowel fluid-filled loops with mild wall thickening. Findings could be related to related to underlying infectious/inflammatory process such as developing enteritis. Evaluation is severely limited due to lack of contrast. There is suggestion of scattered mesenteric lymph nodes. Findings could be related to patient underlying history of non-Hodgkin's lymphoma. PET-CT should be considered for better characterization. Left hydroureteronephrosis without definite evidence of distal obstruction. Markedly dilated urinary bladder. There is persistent soft tissue mass within right pelvis likely related to deviated uterus with prominent right adnexa. Findings are similar when compared to prior study. These findings could be better appreciated on contrast enhanced CT. Diffuse sclerosis of vertebral bodies findings could be related to underlying CKD. Reading Location: [facility] CC: BRANDON Mcghee; Dr. Collin Arechiga MD Exhaust Equipment Operator: Signed Suspect gastroparesis due to absence of peristalsis, [...] Continue present medications. - Await pathology results. Pam Mcghee APRN.PROFESSIONAL BUILDER 03/21/2025 12:36 PM Signed Addended by: PAM MCGHEE on: 03/21/2025 12:36 PM Modules accepted: Orders Allergies As of Date: 03/20/2025 Noted Allergy Reaction ATORVASTATIN 07/03/2015 16 - Unknown CATS 10/27/2010 12 - Shortness of Breath DROPERIDOL 08/06/2012 10 - Anaphylaxis LAXATIVE PILL 09/25/2019 8 - GI Upset MEPERIDINE 07/03/2015 16 - Unknown SENNOSIDES 09/25/2019 14 - Other: See Comments Date Reviewed: 03/18/2025 Reviewed by: Dalia Rdz, RT(R) - Fully Assessed Reason for Visit: ED Follow Up [973] Primary Visit Diagnosis:Gastroparesis [K31.84] Other Visit Diagnosis:Hypothyroidism, unspecified type [E03.9] Order(s):gabapentin (NEURONTIN) 100 mg capsuleTake 1-2 capsules by mouth daily at bedtime for 30 days.Disp: 60 capsuleRfl: 0 levothyroxine (SYNTHROID) 88 mcg tabletTake 1 tablet by mouth daily before breakfast.Disp: 90 tabletRfl: 0 Prescriptions as of 03/21/2025 - gabapentin (NEURONTIN) 100 mg capsule Take 1-2 capsules by mouth daily at bedtime for 30 days. - levothyroxine (SYNTHROID) 88 mcg tablet Take 1 tablet by mouth daily before breakfast. - ondansetron orally disintegrating (ZOFRAN ODT) 4 mg disintegrating tablet Take 1 tablet by mouth every 8 hours as needed for nausea/vomiting. 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 GABAPENTIN 100 MG CAPSULE 60 c* 0 03/21/2025 04/20/2025 Route: PO Sig: Take 1-2 capsules by mouth daily at bedtime for 30 days. LEVOTHYROXINE 88 MCG TABLET 90 t* 0 03/21/2025 Route: PO Sig: Take 1 tablet by mouth daily before breakfast. Medications Discontinued During This Encounter Prescriptions - levothyroxine (SYNTHROID) 75 mcg tablet (Discontinued) Take 1 tablet by mouth daily before breakfast. - levothyroxine (SYNTHROID) 88 mcg tablet (Discontinued) Take 1 tablet by mouth daily before breakfast. Encounter Status:Closed by CHARLOTTE VARGHESE on 03/20/25 ALBUMIN/CREATININE RATIO, URINE Collect ed: 03/19/2025 3:03 PM Status: F Source: [facility] Order Comment: Specimen Type : URINE SPECIMEN [facility]ing Facility[facility] Address: [address] [place] [address] TYPE CODE TESTS RESULT OUT OF RANGE REFERENCE UNITS LAB 2161-8(LOINC) Creat Ur-mCnc 92.4 20.0-300.0 m g/dL LAB 13027-1(LOINC ) Microalbumin Ur-mCnc 1334.9 mg/L LAB 9318-7(LOINC) Albumin/Creat Ur 1445 High <30 mg/g Result Comment: Adult Male a nd Female Nephrotic Criteria: <30 mg/g is considered normal to mildly increased 30-300 mg/g is considered moderately increased >300 mg/g is considered severely increased KDIGO. (2013). KDIGO 2012 Clinical Practice Guideline for the Evaluation and Management of Chronic Kidney Disease. Official Journal of the International Society of Nephrology, 3(1), 1-150. Performed By: #### UACR, 289 0-2 #### [facility] CLIA [id number] [address] [place], [place] [address] [place] [address] [place] PROT/CREAT UR Collected: 3:03 PM Status: F Source: [facility] Order Comment: Specimen Type : URINE SPECIMEN [facility]ing Facility[facility] Address: [address] [place], [place] [id number] TYPE CODE TESTS RESULT OUT OF RANGE REFERENCE UNITS LAB 2888-6(LOINC) Prot Ur-mCnc 212 High 0-20 mg/dL LAB 2161-8(LOINC) Creat Ur-mCnc 92.4 20.0-300.0 mg/dL LAB 2890-2(LOINC) Prot/Creat Ur 2.29 High <0.15 mg/mg Result Comment: Adult Protei cecelia Categories: <0.15 mg/mg is considered normal to mildly increased 0.15 - 0.50 mg/mg is considered moderately increased >0.50 mg/mg is considered severely increased KDIGO. (2013). KDIGO 2012 Clinical Practice Guideline for the Evaluation and Management of Chronic Kidney Disease. Official Journal of the International Society of Nephrology, 3(1), 1-150. Performed By: #### UACR, 289 0-2 #### [facility] CLIA [id number] [address] [place] [address] [place] [facility] RENAL FUNC 2000 PNL SERPL Collected: 1:14 PM Status: F Source: [facility] Order Comment: Specimen Type : BLOOD SPECIMEN [facility] Address: [address] [place] [address] TYPE CODE TESTS RESULT OUT OF RANGE REFERENCE UNITS LAB 1751-7(LOINC) Albumin SerPl-mCnc 4.4 3.9-4.9 g/dL LAB 89149-4(LOINC) Calcium SerPl-mCnc 9.9 8.5-10.2 mg/dL LAB 2777-1(LOINC) Phosphate SerPl-mCnc 3.6 2.7-4.8 mg/dL LAB 2345-7(LOINC) Glucose SerPl-mCnc 122 High 74-99 mg/dL Result Comment: The [place] Diabetes Association (ADA) provides guidance for cutoff [...] Standards of Medical Care in Diabetes 2016, [place] Diabetes Association. Diabetes Care. 2016.39(Suppl 1). LAB 3094-0(LOINC) BUN SerPl-mCnc 20 7-21 mg/dL LAB 2160-0(LOINC) Creat SerPl-mCnc 2.25 High 0.58-0.96 mg/dL LAB 2951-2(LOINC) Sodium SerPl-sCnc 140 136-144 mmol/L LAB 2823-3(LOINC) Potassium SerPl-sCnc 3.6 Low 3.7-5.1 mmol/L LAB 2075-0(LOINC) Chloride SerPl-sCnc 106 98-107 mmol/L LAB 2027-9(LOINC) CO2 SerPl-sCnc 22 22-30 mmol/L LAB 80344-9(LOINC) Anion Gap SerPl-sCnc 12 8-15 mmol/L LAB 42431-7(LOINC) eGFRcr SerPlBld CKD-EPI 2020 29 Low >=60 mL/min/1. 73m??? Result Comment: Estimated Gl omerular Filtration Rate (eGFR) is calculated using the 2020 CKD-EPI creatinine equation. This equation utilizes serum creatinine, sex, and age as parameters. The creatinine assay has traceable calibration to isotope dilution-mass spectrometry. Refer to KDIGO guidelines for clinical interpretation. In patients with unstable renal function, e.g. those with acute kidney injury, the eGFR may not accurately reflect actual GFR. Performed By: #### 28196-7, 00707-0 #### [facility] CLIA [id number] [address] [place] [address] [place] CREATININE + EGFR PNL SERPLBLD Collecte d: 03/19/2025 1:14 PM Status: F Source: [facility] Order Comment: Specimen Type : BLOOD SPECIMEN [facility] Address: [address] [place] [address] TYPE CODE TESTS RESULT OUT OF RANGE REFERENCE UNITS LAB 2160-0(LOINC) Creat SerPl-mCnc 2.25 High 0.58-0.96 mg/dL LAB 44559-2(LOINC) eGFRcr SerPlBld CKD-EPI 2020 29 Low >=60 mL/min/1. 73m??? Result Comment: Estimated Gl omerular Filtration Rate (eGFR) is calculated using the 2020 CKD-EPI creatinine equation. This equation utilizes serum creatinine, sex, and age as parameters. The creatinine assay has traceable calibration to isotope dilution-mass spectrometry. Refer to KDIGO guidelines for clinical interpretation. In patients with unstable renal function, e.g. those with acute kidney injury, the eGFR may not accurately reflect actual GFR. Performed By: #### 63506-3, 04454-3 #### [facility] CLIA [id number] [address] [place] [address] CYSTATIN C Collected: 1:14 PM Status: F Source: [facility] Comment: Specimen Type : BLOOD SPECIMEN [facility] Address: [address] [place] [address] TYPE CODE TESTS RESULT OUT OF RANGE REFERENCE UNITS LAB 07003-8(LOINC) Cystatin C SerPl-mCnc 2.36 High 0.61-0.95 mg/L LAB CYSTC CYSTATIN C EGFR 26 Low >=60 mL/min/1. 73m??? Result Comment: Estimated Gl omerular Filtration Rate (eGFR) is calculated using the 2011 CKD-EPI cystatin C equation. This equation utilizes serum cystatin C, sex, and age as parameters. The cystatin C assay has traceable calibration to the ERM-DA471/IFCC reference material. Refer to KDIGO guidelines for clinical interpretation. In patients with unstable renal function, e.g. those with acute kidney injury, the eGFR may not accurately reflect actual GFR. Performed By: #### 3024-7, C YSTC, TSHRF #### [facility] CLIA [id number] [address] [place] [address] OF [place]ENN[place]ER TSH W/REFLEX FT4 Collected: 5 1:14 PM Status: F Source: [facility] Comment: Specimen Type : BLOOD SPECIMEN [facility]ing [facility] Address: [address] [place] [address] TYPE CODE TESTS RESULT OUT OF RANGE REFERENCE UNITS LAB 3016-3(LOINC) TSH SerPl-aCnc 11.700 High 0.270-4.200 mIU/L Result Comment: If the patie nt is , TSH reference range varies by gestational period: First Trimester (weeks 9-12): 0.180-2.990 mIU/L Second Trimester: 0.110-3.980 mIU/L Third Trimester: 0.480-4.710 mIU/L Leo Tinsley et al. A Practical Approach for the Verifications and Determination of Site- and Trimester-Specific Reference Intervals for Thyroid Function tests in . Thyroid, 2019:29:3:412-420. Renny E, et al. 2017 Guidelines of the [place] Thyroid Association for the Diagnosis and Management of Thyroid Disease during and the . Thyroid, 2017:27:3:315-389. Performed By: #### 3024-7Maru YSKAROL, TSHRF #### [facility] CLIA [id number] [address] [place] [address] [place] T4 FREE SERPL-MCNC Collected: 03/19/2025 1:14 PM Sta tus: F Source: [facility] Order Comment: Specimen Type : BLOOD SPECIMEN [facility] Address: [address] [place] [address] TYPE CODE TESTS RESULT OUT OF RANGE REFERENCE UNITS LAB 3024-7(LOINC) T4 Free SerPl-mCnc 1.1 0.9-1.7 ng/dL Performed By: #### 3024-7, C YSTC, TSHRF #### [facility] CLIA [id number] [address] [place] [address] [place] CNPN Observed: 03/19/2025 12:00 AM Status: COMPLETED Source: [facility] Telephone (AGMIKE) AISSATOU JOHNSON ([id number]) 1990 F Date Time Provider Department 03/19/25 PAM MCGHEE During your visit today, we recorded the following information about you: Kathe Guevara 03/19/2025 4:42 PM Signed Aissatou called stating she is in the ER at [facility] and she is in the worst pain of her life. She was calling to let Pam know she was unable to get test done because she is in such bad condition and that is why she went to ER she could not handle the pain. Patient was crying and said she doesn't know what to do. Patient wanted a call back. Charlotte Varghese MA 03/20/2025 5:15 PM Signed See other encounter Charlotte Varghese MA Allergies As of Date: 03/19/2025 Noted Allergy Reaction ATORVASTATIN 07/03/2015 16 - Unknown CATS 10/27/2010 12 - Shortness of Breath DROPERIDOL 08/06/2012 10 - Anaphylaxis LAXATIVE PILL 09/25/2019 8 - GI Upset MEPERIDINE 07/03/2015 16 - Unknown SENNOSIDES 09/25/2019 14 - Other: See Comments Date Reviewed: 03/18/2025 Reviewed by: Dalia Rdz, RT(R) - Fully Assessed Reason for Visit: Patient Update [1234] Cmt: Pt called she is in ER in [place] Prescriptions as of 03/20/2025 - ondansetron orally disintegrating (ZOFRAN ODT) 4 [...] home medications Problem List As Of Date 03/19/2025 Noted Resolved Hodgkin lymphoma (HCC) [C81.90] 10/22/2010 [...] left ear [H91.92] 07/11/2024 Encounter Status:Closed by KATHE GUEVARA on 03/19/25 PROGRESS Observed: 03/12/2025 11:30 AM Status: COMPLETED Source: [facility] ID: [id number] Author: ASHLI TYSON APRN.PROFESSIONAL BUILDER Service: ? Author Type: Nurse Practitioner Type: Progress Notes Filed: 03/12/2025 11:48 Note Text: SUBJECTIVE: Aissatou Johnson presents for follow up of her laparoscopic [...] encouraged. I have explained to Ms. Aissatou Johnson that she may return to normal activity with the following restrictions: no heavy lifting, pushing, pulling >20 lbs for 2 more weeks. I have encouraged her to contact me at any time with any questions or concerns that may arise. Recommend following up with PCP or chiropractor for back pain for further work up. Follow up: SANDOR Tyson APRN.CNP CNOV Observed: 03/12/2025 11:30 AM Status: COMPLETED Source: [facility] Office Visit (GENSWS) AISSATOU JOHNSON ([id number]) 1990 F Date Time Provider Department 03/12/25 11:30 AM ASHLI TYSON During your visit today, we recorded the following information about you: Ashli Tyson APRN.CNP 03/12/2025 11:48 AM Signed SUBJECTIVE: Aissatou Johnson presents for follow up of her laparoscopic [...] encouraged. I have explained to Ms. Aissatou Johnson that she may return to normal activity with the following restrictions: no heavy lifting, pushing, pulling >20 lbs for 2 more weeks. I have encouraged her to contact me at any time with any questions or concerns that may arise. Recommend following up with PCP or chiropractor for back pain for further work up. Follow up: SANDOR Tyson APRN.PROFESSIONAL BUILDER Referring Provider: MICHAEL PRO [[id number]] Allergies As of Date: 03/12/2025 Noted Allergy Reaction ATORVASTATIN 07/03/2015 16 - Unknown CATS 10/27/2010 12 - Shortness of Breath DROPERIDOL 08/06/2012 10 - Anaphylaxis LAXATIVE PILL 09/25/2019 8 - GI Upset MEPERIDINE 07/03/2015 16 - Unknown SENNOSIDES 09/25/2019 14 - Other: See Comments Date Reviewed: 03/12/2025 Reviewed by: Bobbi Fuentes, KIERA - Fully Assessed Reason for Visit: Post [...] left ear [H91.92] 07/11/2024 Encounter Status:Closed by ASHLI TYSON on 03/12/25 CNPN Observed: 03/06/2025 12:00 AM Status: COMPLETED Source: [facility] Telephone (Itsworld SiciliaMPLE) AISSATOU JOHNSON ([id number]) 1990 F Date Time Provider Department 03/06/25 PAM MCGHEE During your visit today, we recorded the following information about you: Cathy Guzman MA 03/06/2025 1:05 PM Signed Lm on pt vm that medical source assessment has been completed and Original at front ready for turkey picker. Copy placed in scanning. Cathy Guzman MA Allergies As of Date: 03/06/2025 Noted Allergy Reaction ATORVASTATIN 07/03/2015 16 - Unknown CATS 10/27/2010 12 - Shortness of Breath DROPERIDOL 08/06/2012 10 - Anaphylaxis LAXATIVE PILL 09/25/2019 8 - GI Upset MEPERIDINE 07/03/2015 16 - Unknown SENNOSIDES 09/25/2019 14 - Other: See Comments Date Reviewed: 02/25/2025 Reviewed by: Vesta Barrera RN - Fully Assessed Reason for Visit: Electronic Communication [490] Cmt: Medical source assessment form Prescriptions as [...] left ear [H91.92] 07/11/2024 Encounter Status:Closed by CATHY GUZMAN on 03/06/25 JADE Observed: 03/06/2025 12:00 AM Status: COMPLETED Source: [facility] Telephone (Plastio) AISSATOU JOHNSON ([id number]) 1990 F Date Time Provider Department 03/06/25 MICHAEL PRO Plastio During your visit today, we recorded the following information about you: Rosaura CandelariaTRACIE 03/06/2025 3:18 PM Signed Patient calling and [...] using a dose. Please advise. Rosaura Candelaria Dalia Crawford LPN 03/07/2025 10:05 AM Signed Called patient. [...] should be seen in the ED. Ashli Tyson APRN.Dalia Mir LPN 03/07/2025 1:06 PM Signed Called patient. No answer- left message to call clinic. TRACIE Mueller Laurie, MA 03/07/2025 1:51 PM Addendum Pt notified and verbalizes understanding. Pt states she is starting to feel better. 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 Medications Discontinued During This Encounter Prescriptions - ondansetron orally disintegrating (ZOFRAN ODT) 4 mg disintegrating tablet (Discontinued) Take 1 tablet by mouth every 8 hours as needed for nausea/vomiting. Encounter Status:Closed by GABRIELLE CAPELLAN on 03/07/25 JADE Observed: 02/26/2025 12:00 AM Status: COMPLETED Source: [facility] Telephone (Plastio) AISSATOU JOHNSON ([id number]) 1990 F Date Time Provider Department 02/26/25 MICHAEL PRO During your visit today, we recorded the following information about you: Nargis Foster 02/26/2025 11:43 AM Signed CC Central Scheduling contacted Jules Toussaint to schedule patient's post op visit with Dr. Pro. PSS unable to find availability until March. Please notify the patient if she is able to follow up with DEQUAN or if patient can be scheduled in [...] Encounter Status:Closed by NARGIS FOSTER on 02/27/25 PLAN OF CARE Observed: 02/25/2025 4:45 PM Status: COMPLETED Source: [facility] ID: [id number] Author: ?, ?, ? Service: Pharmacy Author Type: ? Type: Plan of Care Filed: 02/25/2025 16:45 Note Text: PHARMACY BEDSIDE DELIVERY SERVICE Patient Name: Aissatou Johnson The marked outpatient medications were Filled at: [facility] and delivered to the patient's bedside to [...] them or your Primary Care Provider. Roxann Bolden PAGER: [phone] February 25, 2025 4:45 PM NURSING PROG Observed: 02/25/2025 4:30 PM Status: COMPLETED Source: [facility] HNO ID: [id number] Author: VESTA BARRERA RN Service: Nursing Author Type: Registered Nurse Type: Nursing Progress Note Filed: 02/25/2025 16:44 Note Text: 1630 report to Missy QURESHI in PACU. ANES POSTPROC EVAL Observed: 02/25/2025 4:12 PM Status: COMPLETED Source: [facility] HNO ID: [id number] Author: NARINDER RODRIGUEZ MD Service: Anesthesiology Author Type: Anesthesiologist Type: Anesthesia Postprocedure Evaluation Filed: 02/25/2025 16:12 Note Text: POST ANESTHESIA EVALUATION NOTE : 1990 Procedure Summary Date: 02/25/25 Room / Location: [place] OR03 / [place] Anesthesia Start: 1331 Anesthesia Stop: 1549 [...] SIGNATURE: Narinder Rodriguez MD PATIENT NAME: Aissatou Johnson DATE: February 25, 2025 TIME: 4:12 PM CSN: [id number] XR CHOLANGIOGRAM INTRAOP Observed: 02/25 3:03 PM Status: F Source: [facility] * * *Final Report* * * DATE [...] defect is seen. IMPRESSION: As in results. Exhaust Equipment Operator: PSCB Transcribe Date/Time: Feb 25 2025 3:12P Dictated by : GOLDIE ALDANA MD This examination was interpreted and the report reviewed and electronically signed by: GOLDIE ALDANA MD on Feb 25 2025 3:13PM EST [id number] TISS PATH BX REPORT Collected: 02/26/20 2:11 PM Status: F Source: [facility] Order Comment: Specimen Type : TISSUE SPECIMEN [facility]ing Facility[facility] Address: [address] [place] [address] TYPE CODE TESTS RESULT OUT OF RANGE REFERENCE UNITS PATHOLOGY [id number] CASE REPORT Result Comment: Surgical Pat hology Report Case: [id number] Authorizing Provider: Michael Pro MD Collected: 02/25/2025 02:11 PM Ordering Location: [facility] Surgery Received: 02/25/2025 03:53 PM Pathologist: Jaxson Bajwa MD Specimen: Gallbladder PATHOLOGY [id number] FINAL DIAGNOSIS Result Comment: A. Gallbladd er, cholecystectomy: - Acute on chronic cholecystitis. at 1031 EDT PATHOLOGY [id number] GROSS DESCRIPTION A. Gallbladder Result Comment: Received in formalin labeled gallbladder is a 4.5 [...] The cystic duct margin (en face) and junior sales representative sections of the gallbladder wall are submitted in A1. KSZ February 26, 2025 11:56 AM Gross examination performed at [facility], [address] [place] [address] PATHOLOGY CDX2 CLINICAL HISTORY Result Comment: Pre-op diagn osis: Biliary colic [K80.50] PATHOLOGY [facility] FINAL PERFORMING LAB Result Comment: Diagnostic i nterpretation performed at: [facility], [address] [place] [address], [address] [address] CLIA# [id number] Car Dumper: Mat Wolef MD PATHOLOGY [id number] AP DISCLAIMER Result Comment: Laboratory D eveloped Test (LDT) Disclaimer: Performance characteristics of immunohistochemical, immunofluorescent, and chromogenic in-situ hybridization tests have been determined by the performing laboratory within the [facility] Department of Pathology and Laboratory Medicine ([facility], [facility], [facility], [facility], [facility], [facility], or [facility]) in a manner consistent with CLIA requirements. One or more of these tests may not have been cleared or approved by the FDA. The [facility] Department of Pathology and Laboratory Medicine is regulated under CLIA as qualified to perform high-complexity testing. These tests are used for clinical purposes. These should not be regarded as investigational or for research. Positive and negative controls stain appropriately. Performed By: #### 95753-9 # ### [facility] CLIA [id number] [address] [place] [address] ANES PROCEDURE NOTE Observed: 02/25/2025 1:49 PM Status: COMPLETED Source: [facility] HNO ID: [id number] Author: SUHAIL ANG SRNA Service: Nursing Author Type: Student Type: Anesthesia Procedure Notes Filed: 02/25/2025 13:50 Note Text: ANESTHESIOLOGY PROCEDURE NOTE Airway General Information Procedure Start Time/Medication Administration: 02/25/2025 1:40 PM Procedure End Time: 02/25/2025 1:40 PM Patient location during procedure: OR Timeout Performed Pre-procedure: timeout performed Consent Obtained: Yes Patient identity confirmed: arm band, patient sedated or unresponsive and 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 Staffing SRNA: Suhail Ang SRNA Performed by: RIKKI Indications and [...] difficult SIGNATURE: RIKKI Dixon PATIENT NAME: Aissatou Johnson DATE: February 25, 2025 TIME: 1:49 PM CSN: [id number] OPERATIVE NO Observed: 02/25/2025 1:31 PM Status: COMPLETED Source: [facility] ID: [id number] Author: MICHAEL PRO MD Service: General Surgery Author Type: Resident Type: Operative Report Filed: 02/26/2025 18:11 Note Text: Attestation signed by Michael Pro MD at 02/26/2025 6:11 PM PARTICIPATION IN SURGERY/PROCEDURE: Resident performed the procedure, under direct supervision and the remainder of the procedure was performed by the primary surgeon/proceduralist with assistance. OPERATIVE/PROCEDURE REPORT LOG ID: [id number] SURGERY/PROCEDURE DATE: 02/25/2025 INCISION/PROCEDURE START TIME: 1:57 PM INCISION CLOSE/PROCEDURE END TIME: SURGEON(S)/PROCEDURALIST(S) AND REFRIGERATOR ASSEMBLER(S): Surgeons and Role: * Michael Pro MD - Primary * Krista Lamas DO - Resident - Assisting Physician M1 Armor Crewman: Brianna Hylton PA-C SURGERY/PROCEDURE(S): Procedure(s) (LRB): LAPAROSCOPIC [...] liver, the gallbladder was placed in an [place] bag and passed off the field to [...] by Time Destination A : Tissue Gallbladder SURGICAL PATHOLOGY Michael Pro MD 02/25/2025 2:11 PM IMPLANTABLE DEVICES: NONE DRAINS: None COMPLICATIONS: None PARTICIPATION IN SURGERY/PROCEDURE: Resident took the layer(s), opened, and closed, under direct supervision and the remainder of the procedure was performed by the primary surgeon/proceduralist with assistance. SIGNATURE: Krista Lamas DO PATIENT NAME: Aissatou Johnson DATE: February 25, 2025 TIME: 3:29 PM PAGER/CONTACT #: [phone] HISTORY PHYSICAL Observed: 02/25/2025 1:01 PM Status: COMPLETED [facility] ID: [id number] Author: MICHAEL PRO MD Service: General Surgery Author Type: Physician Type: H&P Filed: 02/25/2025 13:01 Note Text: HISTORY AND PHYSICAL Aissatou Johnson 1990 REFERRING PHYSICIAN: No ref. provider found [...] her symptoms. Alleviating factors include: none. Aissatou Johnson is a 34-year-old female with a history [...] me today at the request of Pam Mcghee APRN.CNP for my opinion and advice regarding [...] Procedure: LAPAROSCOPIC CHOLECYSTECTOMY WITH INTRAOPERATIVE CHOLEANGIOGRAM - 38830-186 Planned antibiotic: Ancef 2gm IVPB carbon printer to OR SCDs needed - Yes M1 Armor Crewman Needed - Yes Diagnoses: (K80.50) Biliary colic (primary encounter diagnosis) (N18.30) Stage 3 chronic kidney disease, unspecified whether stage 3a or 3b CKD (HCC) (Z85.79) Personal history of other malignant neoplasms of lymphoid, hematopoietic and related tissues (J30.81) Allergic rhinitis due to animal (cat) (dog) hair and dander My findings have been communicated to Pam Mcghee APRN.CNP via shared medical record. This note will be forwarded to Pam Mcghee APRN.CNP. Michael Pro MD HISTORY PHYSICAL Observed: 02/25/2025 12:54 PM Status: COMPLETED [facility] ID: [id number] Author: MICHAEL PRO MD Service: General Surgery Author Type: Resident Type: H&P Filed: 02/26/2025 18:09 Note Text: Attestation signed by Michael Pro MD at 02/26/2025 6:09 PM Attending Note I evaluated the patient and personally participated in the duenas components. I agree with the resident's findings and plan as documented and have discussed the case and management of the patient's care with the resident. Signature: Michael Pro MD Date: 02/26/2025 Time: 6:09 PM UPDATED HISTORY AND PHYSICAL EXAMINATION SERVICE DATE: [...] SIGNATURE: Krista Lamas DO PATIENT NAME: Aissatou Johnson DATE: February 25, 2025 TIME: 12:54 PM ANES PRE-OP Observed: 02/25/2025 11:11 AM Status: COMPLETED Source: [facility] ID: [id number] Author: EPIFANIO ENCINAS DO Service: Anesthesiology Author Type: Anesthesiologist Type: Anesthesia Preprocedure Evaluation Filed: 02/25/2025 11:15 Note Text: ANESTHESIOLOGY DAY OF SURGERY NOTE : 1990 Procedure Information Date/Time: 02/25/25 1128 Procedure: LAPAROSCOPIC CHOLECYSTECTOMY WITH GRAMS (Abdomen) Location: [place] OR03 / [place] Surgeons: Michael Pro MD Estimated body [...] and consent discussed: yes. Patient / Responsible Libertarian agrees to proceed: yes Patient / Surrogate [...] obtained within 48 hours of Surgery/Procedure. SIGNATURE: Epifanio Encinas DO PATIENT NAME: Aisstaou Johnson DATE: February 25, 2025 TIME: 11:11 AM CSN: [id number] PROGRESS Observed: 02/21/2025 4:54 PM Status: COMPLETED Source: [facility] HNO ID: [id number] Author: MICHAEL PRO MD Service: ? Author Type: Physician Type: Progress Notes Filed: 02/21/2025 16:57 Note Text: HISTORY AND PHYSICAL Aissatou Johnson 1990 REFERRING PHYSICIAN: No ref. provider found [...] her symptoms. Alleviating factors include: none. Aissatou Johnson is a 34-year-old female with a history [...] me today at the request of Pam Mcghee APRN.CNP for my opinion and advice regarding [...] Procedure: LAPAROSCOPIC CHOLECYSTECTOMY WITH INTRAOPERATIVE CHOLEANGIOGRAM - 20196-607 Planned antibiotic: Ancef 2gm IVPB carbon printer to OR SCDs needed - Yes M1 Armor Crewman Needed - Yes Diagnoses: (K80.50) Biliary colic (primary encounter diagnosis) (N18.30) Stage 3 chronic kidney disease, unspecified whether stage 3a or 3b CKD (HCC) (Z85.79) Personal history of other malignant neoplasms of lymphoid, hematopoietic and related tissues (J30.81) Allergic rhinitis due to animal (cat) (dog) hair and dander My findings have been communicated to Pam Mcghee APRN.CNP via shared medical record. This note will be forwarded to Pam Mcghee APRN.PROFESSIONAL BUILDER. Michael Pro MD [1] Social History Tobacco [...] used heroin and crack November 12, 2021 CNOV Observed: 02/21/2025 10:30 AM Status: COMPLETED Source: [facility] Office Visit (MIYA) AISSATOU JOHNSON ([id number]) 1990 F Date Time Provider Department 02/21/25 10:30 AM MICHAEL PRO During your visit today, we recorded the following information about you: Pulse Blood pressure Weight Height 66/minute 135/92 50.4 kg 1.753 m Michael Pro MD 02/21/2025 4:57 PM Signed HISTORY AND PHYSICAL Aissatou Johnson 1990 REFERRING PHYSICIAN: No ref. provider found [...] her symptoms. Alleviating factors include: none. Aissatou Johnson is a 34-year-old female with a history [...] me today at the request of Pam Mcghee APRN.CNP for my opinion and advice regarding [...] Procedure: LAPAROSCOPIC CHOLECYSTECTOMY WITH INTRAOPERATIVE CHOLEANGIOGRAM - 33003-138 Planned antibiotic: Ancef 2gm IVPB carbon printer to OR SCDs needed - Yes M1 Armor Crewman Needed - Yes Diagnoses: (K80.50) Biliary colic (primary encounter diagnosis) (N18.30) Stage 3 chronic kidney disease, unspecified whether stage 3a or 3b CKD (HCC) (Z85.79) Personal history of other malignant neoplasms of lymphoid, hematopoietic and related tissues (J30.81) Allergic rhinitis due to animal (cat) (dog) hair and dander My findings have been communicated to Pam Mcghee APRN.CNP via shared medical record. This note will be forwarded to Pam Mcghee APRN.CNP. Michael Pro MD [1] Social History [...] used heroin and crack November 12, 2021 Allergies As of Date: 02/21/2025 Noted Allergy Reaction ATORVASTATIN 07/03/2015 16 - Unknown CATS 10/27/2010 12 - Shortness of Breath DROPERIDOL 08/06/2012 10 - Anaphylaxis LAXATIVE PILL 09/25/2019 8 - GI Upset MEPERIDINE 07/03/2015 16 - Unknown SENNOSIDES 09/25/2019 14 - Other: See Comments Date Reviewed: 02/21/2025 Reviewed by: Hanny Shepard MA - Fully Assessed Reason for Visit: Consult [173] Cmt: concerns for gallbladder, upper right back pain, cramping Primary Visit Diagnosis:Biliary colic [K80.50] Other Visit Diagnoses:Stage 3 chronic kidney disease, unspecified whether stage 3a or 3b CKD (HCC) [N18.30] Personal history of other malignant neoplasms of lymphoid, hematopoietic and related tissues [Z85.79] Allergic rhinitis due to animal (cat) (dog) hair and dander [J30.81] Order(s):SURGICAL REQUEST - ELECTIVE (01/2020) [5628512] Order #: [id number]: 1 Prescriptions as of 02/21/2025 - levothyroxine (SYNTHROID) 75 mcg tablet Take [...] left ear [H91.92] 07/11/2024 Encounter Status:Closed by MICHAEL PRO on 02/21/25 WILLIAMN Observed: 02/21/2025 12:00 AM Status: COMPLETED Source: [facility] Telephone (Revolution[employer]WS) AISSATOU JOHNSON ([id number]) 1990 F Date Time Provider Department 02/21/25 MICHAEL PRO [email or web address] During your visit today, we recorded the following information about you: Nellie Rodriguez LPN 02/21/2025 2:31 PM Signed Patient calling in stating she saw you today and is in a lot of pain and could not remember what you said regarding what she can take since she is on suboxone. Patient is requesting a call back with recommendation. Nellie Rodriguez LPN Allergies As of Date: 02/21/2025 Noted [...] left ear [H91.92] 07/11/2024 Encounter Status:Closed by NELLIE RODRIGUEZ on 02/26/25 ANES POSTPROC EVAL Observed: 02/18/2025 12:18 PM Status: COMPLETED Source: [facility] HNO ID: [id number] Author: ISAAC JANG MD Service: Anesthesiology Author Type: Physician Type: Anesthesia Postprocedure Evaluation Filed: 02/18/2025 12:18 Note Text: POST ANESTHESIA EVALUATION NOTE : 1990 Procedure Summary Date: 02/18/25 Room / Location: [address] Anesthesia Start: 845 Anesthesia Stop: 911 Procedure: CYSTOSCOPY, RETROPYELOGRAM (Bladder) Diagnosis: Other hydronephrosis (Other hydronephrosis [N13.39]) Surgeons: Juany Anderson MD Responsible Provider: Isaac Jang MD Anesthesia Type: MAC ASA Status: [...] of care. Anesthesia Observations No Documentation SIGNATURE: Isaac Jang MD PATIENT NAME: Aissatou Johnson DATE: February 18, 2025 TIME: 12:18 PM CSN: [id number] NURSING PROG Observed: 02/18/2025 10:01 AM Status: COMPLETED Source: [facility] HNO ID: [id number] Author: XAVIER ALVAREZ RN Service: ? Author Type: Registered Nurse Type: Nursing Progress Note Filed: 02/18/2025 10:06 Note Text: Patient sat at bedside and dressed self. Patient transferred to wheelchair independently and discharged from PACU in stable condition. [id number] Observed: 02/18/2025 9:34 AM Status: COMPLETED Source: [facility] HNO ID: [id number] Author: XAVIER ALVAREZ RN Service: ? Author Type: Registered Nurse Type: [id number] Filed: 02/18/2025 09:34 Note Text: It is [...] and vomiting, please go to the ER. XR ABDOMEN 1V SUPINE Observed: 9:18 AM Status: F Source: [facility] * * *Final Report* * * DATE [...] guidance as above. Correlate with operative report. Exhaust Equipment Operator: COLBY Transcribe Date/Time: Feb 18 2025 2:32P Dictated by : HOWARD POPE MD This examination was interpreted and the report reviewed and electronically signed by: HOWARD POPE MD on Feb 18 2025 2:34PM EST [id number] ANES PRE-OP Observed: 02/18/2025 7:57 AM Status: COMPLETED Source: [facility] HNO ID: [id number] Author: ISAAC JANG MD Service: Anesthesiology Author Type: Physician Type: Anesthesia Preprocedure Evaluation Filed: 02/18/2025 08:37 Note Text: ANESTHESIOLOGY DAY OF SURGERY NOTE : 1990 Procedure Information Date/Time: 02/18/25 0845 Procedures: CYSTOSCOPY, RETROPYELOGRAM (Bladder) URETEROSCOPY RIGID (Left: Ureter) INSERTION STENT DOUBLE J (Left: Ureter) Location: [place] [address] / [facility] Surgeons: Juany Anderson MD Estimated body mass [...] and consent discussed: yes. Patient / Responsible Libertarian agrees to proceed: yes Patient / Surrogate [...] obtained within 48 hours of Surgery/Procedure. SIGNATURE: Isaac Jang MD PATIENT NAME: Aissatou Johnson DATE: February 18, 2025 TIME: 7:57 AM CSN: [id number] HCG PREG UR QL Collected: 7:15 AM Status: F Source: [facility] Order Comment: Specimen Type : URINE SPECIMEN Ordering Facility[facility] Address: [address] [place] [address] TYPE CODE TESTS RESULT OUT OF RANGE REFERENCE UNITS LAB 2106-3([facility]) HCG Preg Ur Ql Negative Negative Result Comment: This test is intended to aid in the early detection of . Very dilute urine samples, as indicated by a low specific gravity, may not contain junior sales representative levels of hCG. This test detects intact hCG only. This test does not reliably detect hCG degradation products, including free-beta subunit and beta- core fragment. Therefore, this test may show reduced [...] presumptive diagnosis for . Performed By: #### 2106-3 ## ## [facility] CLIA [id number] [address] [place] [address] [place] CNPN Observed: 02/18/2025 12:00 AM Status: COMPLETED Source: [facility] Telephone (UROLAE) ELIZABETHAISSATOU Chas ([id number]) 1990 F Date Time Provider Department 02/18/25 [...] See Comments Date Reviewed: 02/18/2025 Reviewed by: Xavier Alvarez, KIERA - Fully Assessed Reason for Visit: Surgical [...] Encounter Status:Closed by JUANY ANDERSON on 02/18/25 OPERATIVE NO Observed: 02/18/2025 12:00 AM Status: COMPLETED Source: [facility] HNO ID: [id number] Author: JUANY ANDERSON MD Service: Urology Author Type: Physician Type: Operative Report Filed: 02/18/2025 11:29 Note Text: [facility] - Operative Report AISSATOU JOHNSON : 1990 AGE: 34. SEX: F PATIENT TYPE: A HOSP SVC: URO LOCATION: [facility] ATTENDING PHYSICIAN: Juany Anderson MD CSN NUMBER: [id number] DATE OF SURGERY/PROCEDURE: 02/18/2025 INCISION/PROCEDURE START TIME: 8:54 AM INCISION CLOSE/PROCEDURE END TIME: 9:03 AM PREOPERATIVE DIAGNOSIS: Left hydronephrosis, chronic renal insufficiency. POSTOPERATIVE DIAGNOSIS: Left hydronephrosis, chronic renal insufficiency. SURGEON: Juany Anderson MD REFRIGERATOR ASSEMBLER: None. SURGERY/PROCEDURE: Cystoscopy. ANESTHESIA: General . ESTIMATED [...] which time a 30-degree scope and 20- Burmese sheath were inserted through the urethra into [...] 0.035 Glidewire and attempted to pass a [place], but because of the severe angle, it was not going easily, so I stopped. The bladder was subsequent drained. The patient awoke and was brought to the recovery room in stable condition. Juany Anderson MD TFB:[id number] /[id number] NM RENAL FLOW/FXN W PHARM Observed: 01/25 4:06 PM Status: F Source: [facility] * * *Final Report* * * DATE OF EXAM: Feb 17 2025 4:06PM VAMatthew 0035 - NM RENAL FLOW/FXN W PHARM [...] Lasix. No scintigraphic evidence of significant obstruction Exhaust Equipment Operator: COLBY Transcribe Date/Time: Feb 17 2025 8:24P Dictated by : SAULO CARMICHAEL MD This examination was interpreted and the report reviewed and electronically signed by: SAULO CARMICHAEL MD on Feb 17 2025 9:32PM EST [id number] PROGRESS Observed: 02/17/2025 2:45 PM Status: COMPLETED Source: [facility] HNO ID: [id number] Author: BERNADETTE DOMINGO RT(R) Service: Nuclear Medicine Author Type: Technologist [...] PATIENT PRESENTS WITH AN IMPLANTABLE OR ATTACHED RADIATION THERAPIST: No CREATININE: Creatinine Date Value Ref Range [...] 1441 PATIENT DISCHARGED TO: Ambulatory patient, left [place] department area. Is this a therapy: No A Diagnostic radioactive procedure has taken place, with no further precautions necessary other than routine body substance precautions. More information regarding radiation safety can be found using this link: [email or web address] SIGNATURE: RT Bradley(R) PATIENT NAME: Aissatou Johnson DATE: February 17, 2025 TIME: 3:30 PM PAGER/CONTACT #: [phone] Observed: 02/17/2025 10:42 AM Status: COMPLETED Source: [facility] HNO ID: [id number] Author: ALVA MORENO APRN.PROFESSIONAL BUILDER Service: Anesthesiology Author Type: Nurse Practitioner Type: Progress Notes Filed: 02/17/2025 10:42 Note Text: HANDP completed 01/24/2025 Pam Mcghee APRN.PROFESSIONAL BUILDER CNPN Observed: 02/17/2025 12:00 AM Status: COMPLETED Source: [facility] Telephone (STFLF) AISSATOU JOHNSON ([id number]) 1990 F Date Time Provider Department 02/17/25 PAM MCGHEE PelikonCOUNT INCLUDES THE [facility] During your visit today, we recorded the following information about you: Dalia Velasco MA 02/17/2025 2:37 PM Signed Faxed forms to medical records requesting records from 12/24/2024 to present day. Scanned into [employer]. Allergies As of Date: 02/17/2025 Noted Allergy [...] Visit: Release Of Medical Records [2017] Cmt: Mireya MATOS Prescriptions as of 02/27/2025 - oxyCODONE-acetaminophen (PERCOCET) [...] left ear [H91.92] 07/11/2024 Encounter Status:Closed by DALIA VELASCO MA on 02/27/25 PROGRESS Observed: 02/11/2025 11:22 AM Status: COMPLETED Source: [facility] ID: [id number] Author: ?, ?, ? Service: ? Author Type: ? Type: Progress Notes Filed: 02/11/2025 11:22 Note Text: Renal scan scheduled for 02/17/2025 Kalyani Green PROGRESS Observed: 02/10/2025 1:33 PM Status: COMPLETED Source: [facility] HNO ID: [id number] Author: LENORA GALAVIZ MD Service: ? Author Type: Physician Type: Progress Notes Filed: 02/12/2025 07:46 Note Text: NEW VIRTUAL VISIT I have communicated my name and active licensure. The patient's identity and physical location were verified at the time of this visit. Either the patient or their legal junior sales representative has been informed of the risks and benefits of -- and alternatives to -- treatment through a remote evaluation and consents to proceed with the evaluation remotely. I had a virtual visit with Ms. Johnson today. Her local doctors have given her a diagnosis of gallbladder disease. HISTORY: Aissatou Johnson is a 34-year-old female presenting for a [...] pericholecystic fluid. Another study also done outside [facility] - [place] hepatobiliary scakn 02/09/2024 - revealed EF of [...] scheduled for upper and lower endoscopy at [facility] later this week. She has been attending [...] records from other medical facilities such as [facility], [id number] patient care, obtaining oral medical history from the patient in this encounter, counseling and educating the patient/family/caregiver, and completing appropriate medical documentation. Consultation requested by Pam Mcghee for an opinion regarding patient's abdominal pain and abnormal HIDA scan. My final recommendations will be communicated back to the requesting physician by way of shared Medical record or letter to requesting physician via US mail. Recording using [employer] software for draft documentation of the visit was discussed with the patient/authorized junior sales representative; all questions welcomed and answered. Patient/authorized junior sales representative agreed to proceed Lenora Galaviz MD [1] Social History Tobacco Use Smoking [...] used heroin and crack November 12, 2021 PROGRESS Observed: 02/06/2025 3:03 PM Status: COMPLETED Source: [facility] HNO ID: [id number] Author: ?, ?, ? Service: ? Author Type: ? Type: Progress Notes Filed: 02/06/2025 15:03 Note Text: Lm to call me to schedule renal scan. Kalyani MOLINA Observed: 02/06/2025 2:15 PM Status: COMPLETED Source: [facility] Office Visit (UROLSF) AISSATOU JOHNSON ([id number]) 1990 F Date Time Provider Department 02/06/25 2:15 PM JUANY ANDERSON UROLSF During your visit today, we recorded the following information about you: Weight Height 49 kg 1.753 m Juany Anderson MD 02/06/2025 2:51 PM Addendum ESTABLISHED PATIENT OFFICE VISIT HISTORY OF PRESENT ILLNESS No chief complaint on file. Aissatou Johnson is a 34 year old with a [...] Date Value 09/10/2023 Negative 10/13/2014 Negative Specific [place], Ur (no units) Date Value 09/10/2023 1.015 [...] No history of dysuria, frequency or incontinence ELEVATOR EXAMINER AND ADJUSTER: Negative for abnormal vaginal bleeding, abnormal vaginal [...] LE radiation). Says she had a failed CANDP @ the doc didn't know where the dye went due to my anatomy Biggest concern is that she's obstructed. MAG 3 wont be super reliable due to her RI but will order then suggested another CANDP and she's agreeable M- order MAG 3 renal scan H- Schedule CANDP, possible left diagnostic ureteroscopy, left stent [1] [...] used heroin and crack November 12, 2021 Ranulfo Garbert 02/06/2025 3:03 PM Signed Lm to call me to schedule renal scan. Kalyani Vernon Green Kalyani Garber 02/11/2025 11:22 AM Signed Renal scan scheduled for 02/17/2025 Kalyani Green Referring Provider: PAM MCGHEE [[id number]] Allergies As of Date: 02/06/2025 Noted Allergy Reaction ATORVASTATIN 07/03/2015 16 - Unknown CATS 10/27/2010 12 - Shortness of Breath DROPERIDOL 08/06/2012 10 - Anaphylaxis LAXATIVE PILL 09/25/2019 8 - GI Upset MEPERIDINE 07/03/2015 16 - Unknown SENNOSIDES 09/25/2019 14 - Other: See Comments Date Reviewed: 02/06/2025 Reviewed by: Albania Montelongo RN - Fully Assessed Reason for Visit: Consult [173] Cmt: Hydronephrosis, solitary kidney, pain in lower back and N/V, fatigue Primary Visit Diagnosis:Hydronephrosis, unspecified hydronephrosis type [N13.30] Other Visit Diagnoses:Solitary kidney, congenital [Q60.0] 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] Hydronephrosis of left kidney [N13.30] Order(s):NM RENAL FLOW/FXN W PHARM [9773026] Order #: [id number] FUTURE CONSULT TO UROLOGY [9041] Order #: [id number]: 1 UA DIP, URINE (POC) [6292650] Order #: [id number]. 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 Follow-up and Disposition History for Encounter Date Provider Department Center 02/06/2025 [id number] ANDERSON [facility] Encounter Status:Closed by JUANY ANDERSON on 02/06/25 PROGRESS Observed: 02/06/2025 2:15 PM Status: COMPLETED Source: [facility] HNO ID: [id number] Author: JUANY ANDERSON MD Service: ? Author Type: Physician Type: Progress Notes Filed: 02/06/2025 14:51 Note Text: ESTABLISHED PATIENT OFFICE VISIT HISTORY OF PRESENT ILLNESS No chief complaint on file. Aissatou Johnson is a 34 year old with a [...] Date Value 09/10/2023 Negative 10/13/2014 Negative Specific [place], Ur (no units) Date Value 09/10/2023 1.015 [...] No history of dysuria, frequency or incontinence ELEVATOR EXAMINER AND ADJUSTER: Negative for abnormal vaginal bleeding, abnormal vaginal [...] LE radiation). Says she had a failed CANDP @ the doc didn't know where the dye went due to my anatomy Biggest concern is that she's obstructed. MAG 3 wont be super reliable due to her RI but will order then suggested another CANDP and she's agreeable M- order MAG 3 renal scan H- Schedule CANDP, possible left diagnostic ureteroscopy, left stent [1] [...] used heroin and crack November 12, 2021 ESR BLD THOMAS PANG Collected: 02/07/20 11:29 AM Status: F Source: [facility] Order Comment: Specimen Type : BLOOD SPECIMEN [facility] Address: [address] [place] [address] TYPE CODE TESTS RESULT OUT OF RANGE REFERENCE UNITS LAB 4537-7(LOINC) ESR Bld Qn Westrgrn 9 0-20 mm/hr Performed By: #### 4537-7 ## ## [facility] CLIA [id number] [address] [place] [address] [place] PROGRESS Observed: 02/06/2025 10:43 AM Status: COMPLETED Source: [facility] HNO ID: [id number] Author: JUAN R PARRY MD Service: ? Author Type: Physician Type: Progress Notes Filed: 02/06/2025 11:18 Note Text: HISTORY OF PRESENT ILLNESS: Aissatou Johnson is a 34 year old female referred for unintentional weight loss. HD stage IV 7729-0196 Had diffuse adenopathy, no B sx at that time, just pruritus. Treated with [place] V in [facility]. Obtained CR HD had diffuse LN involvement, [...] which included preparing to see the patient, ptgb-mu-ymld patient care, completing clinical documentation, obtaining and/or reviewing separately obtained history, performing a medically appropriate examination, counseling and educating the patient/family/caregiver, ordering medications, tests, or procedures, independently interpreting results (not separately reported), and communicating results to the patient/family/caregiver. Electronically Signed: Juan R Parry MD February 06, 2025 10:43 AM [1] [...] used heroin and crack November 12, 2021 CNOVSP Observed: 02/06/2025 10:40 AM Status: COMPLETED Source: [facility] Visit (SP) Office (SACHIN) AISSATOU JOHNSON ([id number]) 1990 F Date Time Provider Department 02/06/25 10:40 AM JUAN R PARRY During your visit today, we recorded the following information about you: Temperature Pulse Blood pressure Weight 97.9 degrees 76/minute 108/72 48.1 kg Height 1.753 m Juan R Parry MD 02/06/2025 11:18 AM Signed HISTORY OF PRESENT ILLNESS: Aissatou Johnson is a 34 year old female referred for unintentional weight loss. HD stage IV 0974-5388 Had diffuse adenopathy, no B sx at that time, just pruritus. Treated with [place] V in [facility]. Obtained CR HD had diffuse LN involvement, [...] Sed rate today 3. Follow up via [facility] Written and verbal health teaching given to [...] which included preparing to see the patient, fyuo-gr-[id number] patient care, completing clinical documentation, obtaining and/or reviewing separately obtained history, performing a medically appropriate examination, counseling and educating the patient/family/caregiver, ordering medications, tests, or procedures, independently interpreting results (not separately reported), and communicating results to the patient/family/caregiver. Electronically Signed: Juan R Parry MD February 06, 2025 10:43 AM [1] [...] used heroin and crack November 12, 2021 Referring Provider: PAM MCGHEE [[id number]] Allergies As of Date: 02/06/2025 Noted Allergy Reaction ATORVASTATIN 07/03/2015 16 - Unknown CATS 10/27/2010 12 - Shortness of Breath DROPERIDOL 08/06/2012 10 - Anaphylaxis LAXATIVE PILL 09/25/2019 8 - GI Upset MEPERIDINE 07/03/2015 16 - Unknown SENNOSIDES 09/25/2019 14 - Other: See Comments Date Reviewed: 02/06/2025 Reviewed by: Michelle Bernabe LPN - Fully Assessed Reason for Visit: New Patient [172] Primary Visit Diagnosis:Hodgkin lymphoma of lymph nodes of multiple regions, unspecified Hodgkin lymphoma type (HCC) [C81.98] Other Visit Diagnoses:Unintentional weight loss of more than 10 pounds in 90 days [R63.4] History of Hodgkin's lymphoma [Z85.71] Order(s):SEDIMENTATION RATE, WESTERGREN [SQWSR] Order #: [id number] FUTURE CONSULT TO HEMATOLOGY/ONCOLOGY [19990626] Order #: [id number]: 1 CT ABD/PEL W IVCON [7623941] Order #: [id number] FUTURE CT CHEST W IVCON [3210043] Order #: [id number] FUTURE iv contrast (will be provided with radiology test)CT Chest ABD/PEL-Inject, intravenously, once for 1 dose.No [...] protocol in the CT contrast administration guidelines link.Disp: 1 eachRfl: 0 enteric contrast (will be provided with radiology test)For CT CHESTABD/PEL W IVCON Routine order Administer, As Directed One Time Only, via Oral, Rectal, both Oral and Rectal, Enteric Tube, Stoma or Indwelling Catheter, Enteric Contrast as designated per enteric contrast guidelinesDisp: 1 eachRfl: 0 Follow-up and Disposition History for Encounter Date Provider Department Center 02/06/2025 [id number] R PARRY [place] Prescriptions as of 02/06/2025 - iv contrast (will be provided with radiology [...] in the CT contrast administration guidelines link. - enteric contrast (will be provided with radiology test) For CT CHESTABD/PEL W IVCON Routine order Administer, As Directed One Time Only, via Oral, Rectal, both Oral and Rectal, Enteric Tube, Stoma or Indwelling Catheter, Enteric Contrast as designated per enteric contrast guidelines - levothyroxine (SYNTHROID) 75 mcg tablet Take [...] home medications Problem List As Of Date 02/06/2025 Noted Resolved Hodgkin lymphoma (HCC) [C81.90] 10/22/2010 [...] left ear [H91.92] 07/11/2024 Encounter Status:Closed by JUAN R PARRY on 02/06/25 WILLIAMN Observed: 01/27/2025 12:00 AM Status: COMPLETED Source: [facility] Telephone (HEMAWS) AISSATOU JOHNSON ([id number]) 1990 F Date Time Provider Department 01/27/25 JUAN R PARRY During your visit today, we recorded the following information about you: Lindsay Plata 01/27/2025 8:29 AM Signed Please review and advise CONSULT TO HEMATOLOGY/ONCOLOGY Status: Needs Scheduling Requested appt date: Authorizing: Pam Mcghee APRN.CNP in [facility] Referral: [id number] (Authorized) Expires: 01/24/2026 Priority: Routine Diagnosis: Unintentional weight loss of more than 10 pounds in 90 days [R63.4] History of Hodgkin's lymphoma [Z85.71] Michelle Bernabe LPN 01/27/2025 9:10 AM Signed First avail with TRACIE Noe Naomi 01/27/2025 9:46 AM Signed This has been scheduled as directed. Thiago Newsome Allergies As of Date: 01/27/2025 Noted Allergy Reaction ATORVASTATIN 07/03/2015 16 - Unknown CATS 10/27/2010 12 - Shortness of Breath DROPERIDOL 08/06/2012 10 - Anaphylaxis LAXATIVE PILL 09/25/2019 8 - GI Upset MEPERIDINE 07/03/2015 16 - Unknown SENNOSIDES 09/25/2019 14 - Other: See Comments Date Reviewed: 01/24/2025 Reviewed by: Cathy Guzman MA - Fully Assessed Reason for Visit: [...] ear [H91.92] 07/11/2024 Encounter Status:Closed by THIAGO NEWSOME on 01/27/25 CNOV Observed: 01/24/2025 4:20 PM Status: COMPLETED Source: [facility] Office Visit (AGFAMPLE) AISSATOU JOHNSON ([id number]) 1990 F Date Time Provider Department 01/24/25 4:20 PM PAM MCGHEE During your visit today, we recorded the following information about you: Temperature Pulse Blood pressure Weight 98.1 degrees 76/minute 124/72 48.5 kg Height 1.753 m Pam Mcghee APRN.PROFESSIONAL BUILDER 01/26/2025 7:08 PM Signed CHIEF COMPLAINT: Aissatou Johnson is a 34-year-old female with a history of Hodgkin's lymphoma, presenting with weight loss, abdominal pain, and diarrhea. I reviewed past medical, surgical, social, and family histories today and updated chart. Allergies, chronic medications, and supplements were also reviewed. Recording using FullContact software for draft documentation of the visit was discussed with the patient/authorized junior sales representative; all questions welcomed and answered. Patient/authorized junior sales representative agreed to proceed Weight Loss: - Significant [...] - Ultrasound and HIDA scan performed at [facility]; HIDA scan showed 86% gallbladder function. - Scheduled for upper and lower endoscopy on February 11 at [facility]. - Mother had similar symptoms and was diagnosed with gallbladder issues. Hodgkin's Lymphoma: - History of stage 4 Hodgkin's lymphoma diagnosed in 2008; received [place] 9 treatment. - Missed hematology/oncology appointment on January 10 with Xavier Varela at [facility]. - Concerns about cancer recurrence; mother [...] additional history and support. OV 12/20/24: Aissatou Johnson is a 34-year-old female with a history [...] 35 mL/min/1.73 m?. 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 Hepatitis: - Has seen a cargo service supervisor in the past for hepatitis management. Migraines: [...] (48.5kg) SpO2 98% LMP 04/15/2023 BMI 15.79 kg/(m2). Physical Exam GENERAL: NAD, alert and oriented. [...] lower endoscopy scheduled for February 11 at [facility]. 5. History of Hodgkin's lymphoma (Z85.71) - [...] management requirements were given to patient. Pam Mcghee APRN.Pam Sutton APRN.CNP 01/24/2025 4:[address] Parry- hematology [facility] [address] [place] [address] phone: [phone] Dr. Michael Pro [facility] [address] [place] [address] phone: [phone] Juany Anderson [facility] [address] [place] [address] phone: [phone] Allergies As of Date: 01/24/2025 Noted Allergy Reaction ATORVASTATIN 07/03/2015 16 - Unknown CATS 10/27/2010 12 - Shortness of Breath DROPERIDOL 08/06/2012 10 - Anaphylaxis LAXATIVE PILL 09/25/2019 8 - GI Upset MEPERIDINE 07/03/2015 16 - Unknown SENNOSIDES 09/25/2019 14 - Other: See Comments Date Reviewed: 01/24/2025 Reviewed by: Cathy Guzman MA - Fully Assessed Reason for Visit: Nausea [70] Cmt: Weight loss . Needs form filled out for disability. Primary Visit Diagnosis:Unintentional weight loss of more than 10 pounds in 90 days [R63.4] Other Visit Diagnoses:Hypothyroidism, unspecified type [E03.9] Gallbladder pain [K82.9] Gallbladder sludge [K82.8] History of Hodgkin's lymphoma [Z85.71] 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] Hydronephrosis of left kidney [N13.30] Order(s):CONSULT TO GENERAL SURGERY [9010] Order #: [id number]: 1 FUTURE CONSULT TO HEMATOLOGY/ONCOLOGY [19990626] Order #: [id number]: 1 FUTURE CONSULT TO UROLOGY [9040] Order #: [id number]: 1 FUTURE Prescriptions as of 01/26/2025 - levothyroxine (SYNTHROID) 75 mcg tablet Take [...] home medications Problem List As Of Date 01/24/2025 Noted Resolved Hodgkin lymphoma (HCC) [C81.90] 10/22/2010 [...] 04/30/2016 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 Parry- hematology [facility] [address] [place], [place] [id number] phone: [phone] Dr. Michael Pro [facility] [address] [place] [address] phone: [phone] Juany Anderson [facility] [address] [place] [address], [place] [id number] phone: [phone] Encounter Status:Closed by PAM MCGHEE on 01/26/25 PROGRESS Observed: 01/24/2025 4:05 PM Status: COMPLETED Source: [facility] HNO ID: [id number] Author: PAM MCGHEE APRN.PROFESSIONAL BUILDER Service: ? Author Type: Nurse Practitioner Type: Progress Notes Filed: 01/26/2025 19:08 Note Text: CHIEF COMPLAINT: Aissatou Johnson is a 34-year-old female with a history of Hodgkin's lymphoma, presenting with weight loss, abdominal pain, and diarrhea. I reviewed past medical, surgical, social, and family histories today and updated chart. Allergies, chronic medications, and supplements were also reviewed. Recording using FullContact software for draft documentation of the visit was discussed with the patient/authorized junior sales representative; all questions welcomed and answered. Patient/authorized junior sales representative agreed to proceed Weight Loss: - Significant [...] - Ultrasound and HIDA scan performed at [facility]; HIDA scan showed 86% gallbladder function. - Scheduled for upper and lower endoscopy on February 11 at [facility]. - Mother had similar symptoms and was diagnosed with gallbladder issues. Hodgkin's Lymphoma: - History of stage 4 Hodgkin's lymphoma diagnosed in 2008; received [place] 9 treatment. - Missed hematology/oncology appointment on January 10 with Xavier aVrela at [facility]. - Concerns about cancer recurrence; mother [...] additional history and support. OV 12/20/24: Aissatou Johnson is a 34-year-old female with a history [...] 35 mL/min/1.73 m?. 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 Hepatitis: - Has seen a cargo service supervisor in the past for hepatitis management. Migraines: [...] (48.5kg) SpO2 98% LMP 04/15/2023 BMI 15.79 kg/(m2). Physical Exam GENERAL: NAD, alert and oriented. [...] lower endoscopy scheduled for February 11 at [facility]. 5. History of Hodgkin's lymphoma (Z85.71) - [...] management requirements were given to patient. Pam Mcghee APRN.PROFESSIONAL BUILDER PROT/CREAT UR Collected: 5 2:59 PM Status: F Source: [facility] Order Comment: Specimen Type : URINE SPECIMEN [facility] Address: [address] [place] [address] TYPE CODE TESTS RESULT OUT OF RANGE REFERENCE UNITS LAB 2888-6(LOINC) Prot Ur-mCnc 262 High 0-20 mg/dL LAB 2161-8(LOINC) Creat Ur-mCnc 117.9 20.0-300.0 mg/dL LAB 2890-2(LOINC) Prot/Creat Ur 2.22 High <0.15 mg/mg Result Comment: Adult Protei cecelia Categories: <0.15 mg/mg is considered normal to mildly increased 0.15 - 0.50 mg/mg is considered moderately increased >0.50 mg/mg is considered severely increased KDIGO. (2013). KDIGO 2012 Clinical Practice Guideline for the Evaluation and Management of Chronic Kidney Disease. Official Journal of the International Society of Nephrology, 3(1), 1-150. Performed By: #### 2890-2, U ACR #### [facility] CLIA [id number] [address] [place], [place] [address] [place] ALBUMIN/CREATININE RATIO, URINE Collect ed: 01/24/2025 2:59 PM Status: F Source: [facility] Order Comment: Specimen Type : URINE SPECIMEN [facility] Address: [address] [place] [address] TYPE CODE TESTS RESULT OUT OF RANGE REFERENCE UNITS LAB 2161-8(LOINC) Creat Ur-mCnc 117.9 20.0-300.0 m g/dL LAB 82876-7(LOINC ) Microalbumin Ur-mCnc 1539.8 mg/L LAB 9318-7(LOINC) Albumin/Creat Ur 1306 High <30 mg/g Result Comment: Adult Male a nd Female Nephrotic Criteria: <30 mg/g is considered normal to mildly increased 30-300 mg/g is considered moderately increased >300 mg/g is considered severely increased KDIGO. (2013). KDIGO 2012 Clinical Practice Guideline for the Evaluation and Management of Chronic Kidney Disease. Official Journal of the International Society of Nephrology, 3(1), 1-150. Performed By: #### 2890-2, U ACR #### [facility] CLIA [id number] [address] [place] [address] [place] TSH W/REFLEX FT4 Collected: 2:57 PM Status: F Source: [facility] Comment: Specimen Type : BLOOD SPECIMEN [facility] Address: [address] [place], [place] [address] TYPE CODE TESTS RESULT OUT OF RANGE REFERENCE UNITS LAB 3016-3(LOINC) TSH SerPl-aCnc 5.200 High 0.270-4.200 mIU/L Result Comment: If the patie nt is , TSH reference range varies by gestational period: First Trimester (weeks 9-12): 0.180-2.990 mIU/L Second Trimester: 0.110-3.980 mIU/L Third Trimester: 0.480-4.710 mIU/L Leo Tinsley et al. A Practical Approach for the Verifications and Determination of Site- and Trimester-Specific Reference Intervals for Thyroid Function tests in . Thyroid, 2019:29:3:412-420. Renny Morelos et al. 2017 Guidelines of the [place] Thyroid Association for the Diagnosis and Management of Thyroid Disease during and the . Thyroid, 2017:27:3:315-389. Performed By: #### TSHRF, 30 24-7 #### [facility] CLIA [id number] [address] [place] [address] [place] T4 FREE SERPL-MCNC Collected: 01/24/2025 2:57 PM Sta tus: F Source: [facility] Order Comment: Specimen Type : BLOOD SPECIMEN [facility] Address: [address] [place] [address] TYPE CODE TESTS RESULT OUT OF RANGE REFERENCE UNITS LAB 3024-7(LOINC) T4 Free SerPl-mCnc 0.9 0.9-1.7 ng/dL Performed By: #### TSHRF, 30 24- #### [facility] CLIA [id number] [address] [place] [address] [place] CBC W AUTO DIFF BLD Collected: 01/24/2025 2:[address] atus: F Source: [facility] Order Comment: Specimen Type : BLOOD SPECIMEN [facility] Address: [address] [place] [address] TYPE CODE TESTS RESULT OUT OF RANGE REFERENCE UNITS LAB 6690-2(LOINC) WBC # Bld Auto 4.92 3.70-11.00 k/uL LAB 789-8(LOINC) RBC # Bld Auto 3.94 3.90-5.20 m/ uL LAB 718-7(LOINC) Hgb Bld-mCnc 11.5 11.5-15.5 g/dL LAB 4544-3(LOINC) Hct VFr Bld Auto 34.7 Low 36.0-46.0 % LAB 787-2(LOINC) MCV RBC Auto 88.1 80.0-100.0 fL LAB 785-6([facility]) MCH RBC Qn Auto 29.2 26.0-34.0 p g LAB 786-4([facility]) MCHC RBC Auto-mCnc 33.1 30.5-36.0 g/dL LAB 85595-8([facility]) RDW RBC-Rto 12.6 11.5-15.0 % LAB 777-3([facility]) Platelet # Bld Auto 163 150-400 k/uL LAB 90585-0([facility]) PMV Bld Auto 11.9 9.0-12.7 fL LAB 770-8([facility]) Neutrophils/leuk NFr Bld Auto 62.8 % LAB 751-8([facility]) Neutrophils # Bld Auto 3.09 1.45-7.50 k/uL LAB 736-9([facility]) Lymphocytes/leuk NFr Bld Auto 29.5 % LAB 731-0([facility]) Lymphocytes # Bld Auto 1.45 1.00-4.00 k/uL LAB 5905-5([facility]) Monocytes/leuk NFr Bld Auto 5.5 % LAB 742-7([facility]) Monocytes # Bld Auto 0.27 <0.87 k/uL LAB 713-8([facility]) Eosinophil/leuk NFr Bld Auto 1.2 % LAB 711-2([facility]) Eosinophil # Bld Auto 0.06 <0.46 k/uL LAB 706-2([facility]) Basophils/leuk NFr Bld Auto 0.8 % LAB 704-7([facility]) Basophils # Bld Auto 0.04 <0.11 k/uL LAB 54831-4([facility]) Imm Granulocytes/debi k NFr Bld Auto 0.2 % LAB 88998-7([facility]) Imm Granulocytes # Bld Auto <0.03 <0.10 k/uL LAB 71140-4([facility]) nRBC/100 WBC Bld-Rto 0.0 /100 WBC LAB 771-6([facility]) nRBC # Bld Auto <0.01 <0.01 k/u L LAB 59532-2([facility]) Differential method Bld Auto Performed By: #### 55797-8 # ### [facility] CLIA [id number] [address] [place] [address] [place] [address] [place] PROGRESS Observed: 01/23/2025 2:00 PM Status: COMPLETED Source: [facility] HNO ID: [id number] Author: ROMAIN CROW MD Service: ? Author Type: Fellow Type: Progress Notes Filed: 01/24/2025 09:28 Note Text: Department of Kidney Medicine Medical Specialties [place] [facility] SERVICE DATE: 01/23/2025 SERVICE TIME: 2:47 PM . REQUESTING PHYSICIAN: Pam Mcghee APRN* PRIMARY CARE PHYSICIAN: Pam Mcghee APRN.PROFESSIONAL BUILDER HPI: Ms. Johnson is a 34 year old with a [...] it has hovering between 0.9-1.3 mg/dL in 1161-9726. In 03/2014 had an DAQUAN with a [...] oz) LMP 04/15/2023 (Exact Date) BMI 15.79 kg/m? BP - standardized method Pulse 1 BP [...] Trace blood and >300 protein ASSESSMENT: Ms. Johnson is a 34 year old with a [...] low dose ACEi/ARB if her blood pressure tolerate. She is not a good candidate for SGLT-2 [...] at the moment RTC in 3 months Breann Shah MD Staff, Department of Kidney Medicine 01/23/2025 2:47 PM Staff note: I have reviewed the consult note obtained and documented by the Fellow and I personally participated in the duenas components. I have discussed the case and management of the patient's care. The following comments revise or confirm relevant duenas components of the note. Disclosures: Parts of the current progress note may have been copied from a previous note, updates have been made as clinically relevant. 31 yof w/ CKD (prior DAQUAN in 2021 iso prolonged NSAID use AND hypotension), solitary congenital kidney, Hypothyroidism, prior drug [...] urology Plan: - CKD iso solitary kidney AND prior unrecovered DAQUAN w/ complicated med history above, has been stable as far as renal fxn is concerned. She has evidence of hyperfiltration AND proteinuria as anticipated, will re-quantify at this time. Anti-proteinuric therapy may prove difficult (BP unlikely to tolerate ACEi/ARB, recurrent UTIs would complicate SGLT2i use, GLP1a questionable w/ BMI of 15, maybe non steroids MRAs) - Otherwise routine CKD care - Cystatin C given body habitus - RTC in 3 months Romain Crow MD Staff, Department of Kidney Medicine 01/24/2025 9:16 AM CNDOMENIC Observed: 01/23/2025 2:00 PM Status: COMPLETED Source: [facility] Office Visit (KAITY) AISSATOU JOHNSON ([id number]) 1990 F Date Time Provider Department 01/23/25 2:00 PM BREANN SHAH During your visit today, we recorded the following information about you: Pulse Blood pressure Weight Height 57/minute 110/73 48.5 kg 1.753 m Breann Shah MD 01/23/2025 6:48 PM Addendum Department of Kidney Medicine Medical Specialties [place] [facility] SERVICE DATE: 01/23/2025 SERVICE TIME: 2:47 PM . REQUESTING PHYSICIAN: Pam Mcghee APRN* PRIMARY CARE PHYSICIAN: Pam Mcghee APRN.PROFESSIONAL BUILDER HPI: Ms. Johnson is a 34 year old with a [...] it has hovering between 0.9-1.3 mg/dL in 1475-1056. In 03/2014 had an DAQUAN with a [...] oz) LMP 04/15/2023 (Exact Date) BMI 15.79 kg/m? BP - standardized method Pulse 1 BP [...] Trace blood and >300 protein ASSESSMENT: Ms. Johnson is a 34 year old with a past medical history of hepatitis C(treated,) migraine, hypothyroidism (on levothyroxine). 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 She is not a good candidate for SGLT-2 [...] at the moment RTC in 3 months Breann Shah MD Staff, Department of Kidney Medicine 01/23/2025 2:47 PM Staff note: I have reviewed the consult note obtained and documented by the Fellow and I personally participated in the duenas components. I have discussed the case and management of the patient's care. The following comments revise or confirm relevant duenas components of the note. Disclosures: Parts of the current progress note may have been copied from a previous note, updates have been made as clinically relevant. 31 yof w/ CKD (prior DAQUAN in 2021 iso prolonged NSAID use AND hypotension), solitary congenital kidney, Hypothyroidism, prior drug [...] urology Plan: - CKD iso solitary kidney AND prior unrecovered DAQUAN w/ complicated med history above, has been stable as far as renal fxn is concerned. She has evidence of hyperfiltration AND proteinuria as anticipated, will re-quantify at this time. Anti-proteinuric therapy may prove difficult (BP unlikely to tolerate ACEi/ARB, recurrent UTIs would complicate SGLT2i use, GLP1a questionable w/ BMI of 15, maybe non steroids MRAs) - Otherwise routine CKD care - Cystatin C given body habitus - RTC in 3 months Romain Crow MD Staff, Department of Kidney Medicine 01/24/2025 9:16 AM Breann Shah MD 01/23/2025 3:27 PM Signed Dear Ms. Johnson, We will contact you with the results of the urine test and if any new medication is needed as discussed Do not hesitate to contact us if you have any questin Your Kidney team Referring Provider: PAM MCGHEE [[id number]] Allergies As of Date: 01/23/2025 Noted Allergy Reaction ATORVASTATIN 07/03/2015 16 - Unknown CATS 10/27/2010 12 - Shortness of Breath DROPERIDOL 08/06/2012 10 - Anaphylaxis LAXATIVE PILL 09/25/2019 8 - GI Upset MEPERIDINE 07/03/2015 16 - Unknown SENNOSIDES 09/25/2019 14 - Other: See Comments Date Reviewed: 01/23/2025 Reviewed by: Anurag Sung MA - Fully Assessed Reason for Visit: Consult [173] Primary Visit Diagnosis:Stage 3 chronic kidney disease, unspecified whether stage 3a or 3b CKD (HCC) [N18.30] Other Visit Diagnoses: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 #:[id number] PROTEIN / CREATININE RATIO [SQPRATIO] Order #: [id number] FUTURE ALBUMIN/CREATININE RATIO, URINE [SQUACR] Order #: [id number] FUTURE UA DIP, URINE (POC) [] Order #: [id number]. 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 Johnson, We will contact you with the results of the urine test and if any new medication is needed as discussed Do not hesitate to contact us if you have any questin Your Kidney team Medications Discontinued During This Encounter Prescriptions - gabapentin (NEURONTIN) 100 mg capsule (Discontinued) Take 1 capsule by mouth three times a day for 12 doses. Do not start before September 16, 2023. Disposition: Return in about 3 months (around 04/25/2025). Follow-up and Disposition History for Encounter Date Provider Department Center 01/23/2025 [id number] SIMMS Main - [facility] Encounter Status:Closed by ROMAIN CROW on 01/24/25 CNPTOUTREACH Observed: 01/23/2025 12:00 AM Status: COMPLETED Source: [facility] Patient Outreach (KAITY) AISSATOU JOHNSON ([id number]) 1990 F Date Time Provider Department 01/23/25 ROMAIN CROW During your visit today, we recorded the [...] genitourinary condition [Z13.89] Order(s):UA DIP, URINE (POC) [6305902] Order #: [id number] FUTURE Prescriptions as of 01/27/2025 - levothyroxine [...] left ear [H91.92] 07/11/2024 Encounter Status:Closed by TEE FOSTER on 01/27/25 JADE Observed: 01/20/2025 12:00 AM Status: COMPLETED Source: [facility] Telephone (HARSHA) AISSATOU JOHNSON ([id number]) 1990 F Date Time Provider Department 01/20/25 PAM MCGHEE During your visit today, we recorded the following information about you: Jonathan Castaneda MA 01/20/2025 9:15 AM Signed ----- Message from Cathy Kline MA sent at 12/23/2024 7:55 AM EDT ----- Remind patient time to recheck TSH. Cathy Guzman MA Allergies As of Date: 01/20/2025 Noted Allergy Reaction ATORVASTATIN 07/03/2015 16 - Unknown CATS 10/27/2010 12 - Shortness of Breath DROPERIDOL 08/06/2012 10 - Anaphylaxis LAXATIVE PILL 09/25/2019 8 - GI Upset MEPERIDINE 07/03/2015 16 - Unknown SENNOSIDES 09/25/2019 14 - Other: See Comments Date Reviewed: 12/20/2024 Reviewed by: Pam Mcgehe APRN.PROFESSIONAL BUILDER - Fully Assessed Reason for Visit: Lab Orders [4178] Prescriptions as of 01/20/2025 - levothyroxine (SYNTHROID) [...] Encounter Status:Closed by JONATHAN CASTANEDA on 01/20/25 XR CHEST 2V FRONTAL/LAT Observed: 2024 2:01 PM Status: F Source: [facility] * * *Final Report* * * DATE [...] tissues: Unremarkable. IMPRESSION: No acute radiographic abnormality. Exhaust Equipment Operator: COLBY Transcribe Date/Time: Dec 31 2024 3:57P Dictated by : PEGGY BARNETT MD This examination was interpreted and the report reviewed and electronically signed by: PEGGY BARNETT MD on Dec 31 2024 3:57PM EST [id number] COMP METAB 2000 PNL SERPL Collected: 3:31 PM Status: F Source: [facility] Order Comment: Specimen Type : BLOOD SPECIMEN [facility] Address: [address] [place] [address] TYPE CODE TESTS RESULT OUT OF RANGE REFERENCE UNITS LAB 2885-2(LOINC) Prot SerPl-mCnc 7.4 6.3-8.0 g/dL LAB 1751-7(LOINC) Albumin SerPl-mCnc 4.5 3.9-4.9 g/dL LAB 09171-1(LOINC) Calcium SerPl-mCnc 9.7 8.5-10.2 mg/dL LAB 1975-2(LOINC) Bilirub SerPl-mCnc 0.5 0.2-1.3 mg/dL LAB 6768-6(LOINC) ALP SerPl-cCnc 85 34-123 U/L LAB 54111-0(LOINC) AST SerPl w P-5'-P-cCnc 18 13-35 U/L LAB 1743-4(LOINC) ALT SerPl w P-5'-P-cCnc 8 7-38 U/L LAB 2345-7(LOINC) Glucose SerPl-mCnc 88 74-99 mg/dL Result Comment: The [place] Diabetes Association (ADA) provides guidance for cutoff [...] Standards of Medical Care in Diabetes 2016, [place] Diabetes Association. Diabetes Care. 2016.39(Suppl 1). LAB 3094-0(LOINC) BUN SerPl-mCnc 17 7-21 mg/ dL LAB 2160-0(LOINC) Creat SerPl-mCnc 2.16 High 0.58-0.96 mg/dL LAB 2951-2(LOINC) Sodium SerPl-sCnc 140 136-144 mmol/L LAB 2823-3(LOINC) Potassium SerPl-sCnc 3.7 3.7-5.1 mmol/L LAB 2075-0(LOINC) Chloride SerPl-sCnc 107 98-107 mmol/L LAB 2028-9(LOINC) CO2 SerPl-sCnc 22 22-30 mmo l/L LAB 21791-3(LOINC) Anion Gap SerPl-sCnc 11 8-15 mmol/L LAB 72258-7(LOINC) Creatinine + eGFR Pnl SerPlBld 30 Low >=60 mL/min/1. 73m??? Result Comment: Estimated Gl omerular Filtration Rate (eGFR) is calculated using the 2020 CKD-EPI creatinine equation. This equation utilizes serum creatinine, sex, and age as parameters. The creatinine assay has traceable calibration to isotope dilution-mass spectrometry. Refer to KDIGO guidelines for clinical interpretation. In patients with unstable renal function, e.g. those with acute kidney injury, the eGFR may not accurately reflect actual GFR. Performed By: #### 28068-7, TSHRF #### [facility] CLIA [id number] [address] [place] [address] STATES OF [facility] #### 3024-7 #### [facility] CLIA [id number] [address] [place] [address] TSH W/REFLEX FT4 Collected: 5 3:31 PM Status: F Source: [facility] Order Comment: Specimen Type : BLOOD SPECIMEN [facility] Address: [address] [place] [address] TYPE CODE TESTS RESULT OUT OF RANGE REFERENCE UNITS LAB 3016-3(LOINC) TSH SerPl-aCnc 4.870 High 0.270-4.200 mIU/L Result Comment: If the patie nt is , TSH reference range varies by gestational period: First Trimester (weeks 9-12): 0.180-2.990 mIU/L Second Trimester: 0.110-3.980 mIU/L Third Trimester: 0.480-4.710 mIU/L Leo Tinsley et al. A Practical Approach for the Verifications and Determination of Site- and Trimester-Specific Reference Intervals for Thyroid Function tests in . Thyroid, 2019:29:3:412-420. Renny Morelos et al. 2017 Guidelines of the [place] Thyroid Association for the Diagnosis and Management of Thyroid Disease during and the . Thyroid, 2017:27:3:315-389. Performed By: #### 47397-7, TSHRF #### [facility] CLIA [id number] [address] [place] [address] #### 3024-7 #### [facility] CLIA [id number] [address] T4 FREE SERPL-MCNC Collected: 12/20/2024 3:31 PM Sta tus: F Source: [facility] Order Comment: Specimen Type : BLOOD SPECIMEN [facility] Address: [address] [place] [address] TYPE CODE TESTS RESULT OUT OF RANGE REFERENCE UNITS LAB 3024-7(LOINC) T4 Free SerPl-mCnc 1.1 0.9-1.7 ng/dL Performed By: #### 55147-8, TSHRF #### [facility] CLIA [id number] [address] [place] [address] #### 3024-7 #### [facility] CLIA [id number] [address] [place] [address] CBC W AUTO DIFF BLD Collected: 12/20/2024 3:[address] atus: F Source: [facility] Order Comment: Specimen Type : BLOOD SPECIMEN [facility] Address: [address] [place] [address] TYPE CODE TESTS RESULT OUT OF RANGE REFERENCE UNITS LAB 6690-2(LOINC) WBC # Bld Auto 6.23 3.70-11.00 k/uL LAB 789-8(LOINC) RBC # Bld Auto 3.98 3.90-5.20 m/ uL LAB 718-7(LOINC) Hgb Bld-mCnc 11.3 Low 11.5-15.5 g/dL LAB 4544-3([facility]) Hct VFr Bld Auto 35.4 Low 36.0-46.0 % LAB 787-2([facility]) MCV RBC Auto 88.9 80.0-100.0 fL LAB 785-6([facility]) MCH RBC Qn Auto 28.4 26.0-34.0 p g LAB 786-4([facility]) MCHC RBC Auto-mCnc 31.9 30.5-36.0 g/dL LAB 21720-0([facility]) RDW RBC-Rto 13.0 11.5-15.0 % LAB 777-3([facility]) Platelet # Bld Auto 169 150-400 k/uL LAB 75409-4([facility]) PMV Bld Auto 11.5 9.0-12.7 fL LAB 770-8([facility]) Neutrophils/leuk NFr Bld Auto 57.3 % LAB 751-8([facility]) Neutrophils # Bl d Auto 3.57 1.45-7.50 k/uL LAB 736-9([facility]) Lymphocytes/leuk NFr Bld Auto 34.7 % LAB 731-0([facility]) Lymphocytes # Bl d Auto 2.16 1.00-4.00 k/uL LAB 5905-5([facility]) Monocytes/leuk NFr Bld Auto 6.4 % LAB 742-7([facility]) Monocytes # Bld Auto 0.40 <0.87 k/uL LAB 713-8([facility]) Eosinophil/leuk NFr Bld Auto 1.1 % LAB 711-2([facility]) Eosinophil # Bld Auto 0.07 <0.46 k/uL LAB 706-2([facility]) Basophils/leuk NFr Bld Auto 0.5 % LAB 704-7([facility]) Basophils # Bld Auto 0.03 <0.11 k/uL LAB 49616-7([facility]) Imm Granulocytes/leuk NFr Bld Auto 0.0 % LAB 50402-7([facility]) Imm Granulocytes # Bld Auto <0.03 <0.10 k/uL LAB 91625-3([facility]) nRBC/100 WBC Bld-Rto LAB 771-6(LOINC) nRBC # Bld Auto LAB 70173-9(LOINC) Differential method Bld Auto Performed By: #### 00190-9 # ### [facility] CLIA [id number] [address] [place] [address] OF JENNIFER FERRITIN SERPL-MCNC Collected: 12/20/2024 3:[address] atus: F Source: [facility] Order Comment: Specimen Type : BLOOD SPECIMEN [facility] Address: [address] [place] [address] TYPE CODE TESTS RESULT OUT OF RANGE REFERENCE UNITS LAB 2276-4(LOINC) Ferritin SerPl-mCnc 79.9 14.7-205.1 ng/mL Performed By: #### 2284-8, 2 276-4, 90629-6, 9 #### [facility] CLIA [id number] [address] [place] [address] IRON+TIBC PNL SERPL Collected: 12/20/2024 3:[address] atus: F Source: [facility] Order Comment: Specimen Type : BLOOD SPECIMEN [facility] Address: [address] [place] [address] TYPE CODE TESTS RESULT OUT OF RANGE REFERENCE UNITS LAB 2498-4(LOINC) Iron SerPl-mCnc 100 41-186 ug/dL LAB 2500-7(LOINC) TIBC SerPl-mCnc 252 232-386 ug/dL LAB 2502-3(LOINC) Iron Satn MFr SerPl 39.7 15.0-57.0 % Performed By: #### 2284-8, 2 276-4, 51848-1, 9 #### [facility] CLIA [id number] [address] OF [place]ENNIFER VIT B12 SERPL-MCNC Collected: 12/20/2024 3:31 PM Sta tus: F Source: [facility] Order Comment: Specimen Type : BLOOD SPECIMEN [facility] Address: [address] [place], [place] [address] TYPE CODE TESTS RESULT OUT OF RANGE REFERENCE UNITS LAB 2132-9(LOINC) Vit B12 SerPl-mCnc 393 721-8064 pg/mL Performed By: #### 2284-8, 2 276-4, 37292-8, 2132-9 #### [facility] CLIA [id number] [address] STATES OF [place] FOLATE SERPL-MCNC Collected: 12/20/2024 3:31 PM Stat us: F Source: [facility] Order Comment: Specimen Type : BLOOD SPECIMEN [facility] Address: [address] [place] [address] TYPE CODE TESTS RESULT OUT OF RANGE REFERENCE UNITS LAB 2284-8(LOINC) Folate SerPl-mCnc >20.0 >4.7 ng/mL Result Comment: A result of > 20 ng/mL is not necessarily indicative of a pathologic or treatable condition: it reflects a limitation of the test methodology. Assay reference range: 4.8 to 24.2 ng/mL. Suitable for detection of folate deficiency. Reference: Folate III (Folate III) [package insert V 1.0 Indonesian]. [employer], [place], [place]: April 2015. Performed By: #### 2284-8, 2 276-4, 50150-0, 2132-9 #### [facility] CLIA [id number] [address] DEPRECATED HGB A1C BLD Collected: 12/20 3:31 PM Status: F Source: [facility] Order Comment: Specimen Type : BLOOD SPECIMEN [facility] Address: [address] [place] [address] TYPE CODE TESTS RESULT OUT OF RANGE REFERENCE UNITS LAB 4548-4(LOINC) HbA1c MFr Bld 5.3 4.3-5.6 % Result Comment: [place] betes Association guidelines indicate that patients with HgbA1c in the range 5.7-6.4% are at increased risk for development of diabetes, and intervention by lifestyle modification may be beneficial. HgbA1c greater or equal to 6.5% is considered diagnostic of diabetes. LAB 96434-5(LOINC) Est. average glucose Bld gHb Est-mCnc 105 mg/dL Result Comment: eAG: (Estima genoveva average glucose) is a calculated value from HgbA1c and is junior sales representative of the average blood glucose level in the last 2-3 month period. Performed By: #### 06658-7 # ### [facility] CLIA [id number] [address] [place], [place] [address] [address] [place] PROGRESS Observed: 12/20/2024 3:06 PM Status: COMPLETED Source: [facility] HNO ID: [id number] Author: PAM MCGHEE APRN.PROFESSIONAL BUILDER Service: ? Author Type: Nurse Practitioner Type: Progress Notes Filed: 12/22/2024 17:08 Note Text: CHIEF COMPLAINT: Aissatou Johnson is a 34-year-old female with a history [...] 35 mL/min/1.73 m?. 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 Hepatitis: - Has seen a cargo service supervisor in the past for hepatitis management. Migraines: [...] (48.5kg) SpO2 99% LMP 04/15/2023 BMI 15.79 kg/(m2). Physical Exam GENERAL: NAD, alert and oriented. [...] caloric intake. - Referral to Dr. Reese, cargo service supervisor in [place], for further evaluation. - Follow-up in 4 [...] with Stage 3 CKD. - Referral to [facility] in [place] for nephrology follow-up. 6. Chronic hepatitis C without hepatic coma (HCC) (B18.2) - No current symptoms reported. - Referral to gastroenterology for further management. 7. Screening for diabetes mellitus (Z13.1) - Ordered A1c test. 8. Hx of adenomatous polyp of colon (Z86.0101) - Referral to Dr. Reese, cargo service supervisor, for follow-up and potential surveillance colonoscopy. New medication(s) prescribed today: None. Counseling completed in adopting health behaviors such as avoiding excessive alcohol use, avoid tobacco use, improve nutrition, and engage in physical activities. Copy of written care plan, clinical summary, treatment plan, new medications, goals, and self management requirements were given to patient. Recording using FullContact software for draft documentation of the visit was discussed with the patient/authorized junior sales representative; all questions welcomed and answered. Patient/authorized junior sales representative agreed to proceed Pam Mcghee APRN.PROFESSIONAL BUILDER CNOV Observed: 12/20/2024 2:00 PM Status: COMPLETED Source: [facility] Office Visit (AGFAMPLE) AISSATOU JOHNSON ([id number]) 1990 F Date Time Provider Department 12/20/24 2:00 PM PAM MCGHEE During your visit today, we recorded the following information about you: Temperature Pulse Respiration Blood pressure 97.9 degrees 77/minute 18/minute 122/60 Weight Height 48.5 kg 1.753 m Pam Mcghee, LOADING INSPECTOR.PROFESSIONAL BUILDER 12/22/2024 5:08 PM Signed CHIEF COMPLAINT: Aissatou Johnson is a 34-year-old female with a history [...] 35 mL/min/1.73 m?. 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 Hepatitis: - Has seen a cargo service supervisor in the past for hepatitis management. Migraines: [...] (48.5kg) SpO2 99% LMP 04/15/2023 BMI 15.79 kg/(m2). Physical Exam GENERAL: NAD, alert and oriented. [...] caloric intake. - Referral to Dr. Reese, cargo service supervisor in [place], for further evaluation. - Follow-up in 4 [...] with Stage 3 CKD. - Referral to [facility] in [place] for nephrology follow-up. 6. Chronic hepatitis C without hepatic coma (HCC) (B18.2) - No current symptoms reported. - Referral to gastroenterology for further management. 7. Screening for diabetes mellitus (Z13.1) - Ordered A1c test. 8. Hx of adenomatous polyp of colon (Z86.0101) - Referral to Dr. Reese, cargo service supervisor, for follow-up and potential surveillance colonoscopy. New medication(s) prescribed today: None. Counseling completed in adopting health behaviors such as avoiding excessive alcohol use, avoid tobacco use, improve nutrition, and engage in physical activities. Copy of written care plan, clinical summary, treatment plan, new medications, goals, and self management requirements were given to patient. Recording using FullContact software for draft documentation of the visit was discussed with the patient/authorized junior sales representative; all questions welcomed and answered. Patient/authorized junior sales representative agreed to proceed KENDELL Motnes Brittny A, APRN.CNP 12/20/2024 3:[address] Reese- Spouting Installer [address] [facility], [address] [place] [address] [facility] [address], [address], [place] [address] Phone number: [phone] CHOOSING PROTEIN Basic protein needs each day. (1 gm/kg) If competing in sports you can increase this: 100 grams of protein each day (1.2-1.7 grams/kg) Protein foods include both animal (meat, poultry, seafood, and eggs) and plant (beans, peas, soy products, nuts, and seeds) sources. We all need protein to build lean muscle mass -- and there is some evidence that eating protein several times a day will make amino acids available during your workout. Vary your protein food choices: Eat a variety of foods from the protein group each week. [place] with main dishes made with beans or peas, nuts, soy and seafood. Eat seafood in place of meat or poultry twice a week. Include some fish that are higher in oils and low in mercury, such as salmon, trout and salas. Milk (8 grams), yogurt (12 grams) and [place]olan yogurt (18 grams) contain protein. Choose lean [...] for heart disease, so make eggs a part of your weekly choices. One medium egg contains [...] peas (kidney, navy, black, ivory, or white beans; splt peas; chickpeas; hummus), soy products (tofu, tempeh, [...] and sodium Make these occasional treats only. [place] Instant Breakfast, mixed with milk, contains 13 grams of protein a serving. Referring Provider: SELF [200] Allergies As of Date: 12/20/2024 Noted Allergy Reaction ATORVASTATIN 07/03/2015 16 - Unknown CATS 10/27/2010 12 - Shortness of Breath DROPERIDOL 08/06/2012 10 - Anaphylaxis LAXATIVE PILL 09/25/2019 8 - GI Upset MEPERIDINE 07/03/2015 16 - Unknown SENNOSIDES 09/25/2019 14 - Other: See Comments Date Reviewed: 12/20/2024 Reviewed by: Pam Mcghee APRN.PROFESSIONAL BUILDER - Fully Assessed Reason for Visit: Weight Problem [121] Cmt: About 6 pounds every 2-3 weeks. 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 May repeat dose after 2 hours if needed. Maximum daily dose is 200 mg per day. No more than 9 doses in a month.Disp: 9 tabletRfl: 5 XR CHEST 2V FRONTAL/LAT [[id number]] Order #: [id number] FUTURE COMPLETE BLOOD COUNT AND DIFFERENTIAL [SQCBCDIF] Order #: [id number] FUTURE HEMOGLOBIN A1C [ZHOCJ2M] Order #: [id number] FUTURE CONSULT TO NEPHROLOGY [9018] Order #: [id number]: 1 FUTURE CONSULT TO GASTROENTEROLOGY [9010] Order #: [id number]: 1 FUTURE Prescriptions as of 12/22/2024 - levothyroxine (SYNTHROID) 50 mcg tablet Take [...] home medications Problem List As Of Date 12/20/2024 Noted Resolved Hodgkin lymphoma (HCC) [C81.90] 10/22/2010 [...] Drug abuse, daily use (HCC) [F19.10] 02/24/2016 Chronic kidney disease [N18.9] 04/30/2016 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 Reese- Spouting Installer [address] [facility] [place] [id number] [facility] [address] [address] Phone number: [phone] CHOOSING PROTEIN Basic protein needs each day. (1 gm/kg) If competing in sports you can increase this: 100 grams of protein each day (1.2-1.7 grams/kg) Protein foods include both animal (meat, poultry, seafood, and eggs) and plant (beans, peas, soy products, nuts, and seeds) sources. We all need protein to build lean muscle mass -- and there is some evidence that eating protein several times a day will make amino acids available during your workout. Vary your protein food choices: Eat a variety of foods from the protein group each week. [place] with main dishes made with beans or peas, nuts, soy and seafood. Eat seafood in place of meat or poultry twice a week. Include some fish that are higher in oils and low in mercury, such as salmon, trout and salas. Milk (8 grams), yogurt (12 grams) and Angolan yogurt (18 grams) contain protein. Choose lean [...] for heart disease, so make eggs a part of your weekly choices. One medium egg contains [...] peas (kidney, navy, black, ivory, or white beans; splt peas; chickpeas; hummus), soy products (tofu, tempeh, [...] and sodium Make these occasional treats only. [place] Instant Breakfast, mixed with milk, contains 13 grams of protein a serving. Prescriptions ordered this encounter Disp Refills Start End LEVOTHYROXINE 50 MCG TABLET 90 t* 1 12/20/2024 Route: PO Sig: Take 1 tablet by mouth daily at 6 am. SUMATRIPTAN 100 MG TABLET 9 ta* 5 12/20/2024 Route: PO Sig: Take 1 tablet by mouth as needed for migraine headache (see administration instructions) (do not use on more than 2 dyas per week.). May repeat dose after 2 hours if needed. Maximum daily dose is 200 mg per day. No more than 9 doses in a month. Medications Discontinued During This Encounter Prescriptions - VITAMIN D-3 50 mcg (2,000 unit) cap (Discontinued) Take 1 capsule by mouth once daily. - hydrOXYzine HCl (ATARAX) 50 mg tablet (Discontinued) Reported on 11/22/2024 - ADVAIR DISKUS 500-50 mcg/dose dsdv (Discontinued) Inhale 1 Puff as instructed two times a day. RINSE AND GARGLE MOUTH WITH WATER AFTER EACH USE. - montelukast (SINGULAIR) 10 mg tablet (Discontinued) Reported on 11/22/2024 - VRAYLAR 1.5 mg capsule (Discontinued) Take 1 capsule by mouth every other day. - ondansetron orally disintegrating (ZOFRAN ODT) 4 mg disintegrating tablet (Discontinued) Take 1 tablet by mouth every 8 hours as needed for nausea/vomiting. - SUMAtriptan (IMITREX) 100 mg tablet (Discontinued) Take 1 tablet (100 mg) by mouth as needed for migraine headache (see administration instructions) (do not use on more than 2 dyas per week.). May repeat dose after 2 hours if needed. Maximum daily dose is 200 mg per day. No more than 9 doses in a month. - levothyroxine (SYNTHROID) 50 mcg tablet (Discontinued) Take 1 tablet by mouth daily at 6 am. Disposition: Return in about 4 weeks (around 01/17/2025) for weight loss. Follow-up and Disposition History for Encounter Date Provider Department Center 12/20/20[id number] [address] Encounter Status:Closed by PAM MCGHEE on 12/22/24 BACTERIA UR CULT Observed: 11/22/2024 11:05 AM Status: F Source: [facility] CULTURE, URINE: No growth (<1,000 CFU/ml) Performed By: #### 630-4 ### # [facility] CLIA [id number] [address] [place] [address] [place] [address] [place] PROGRESS Observed: 11/22/2024 9:18 AM Status: COMPLETED Source: [facility] HNO ID: [id number] Author: DOMITILA HARMON APRN.PROFESSIONAL BUILDER Service: ? Author Type: Nurse Practitioner Type: Progress Notes Filed: 11/22/2024 09:21 Note Text: [facility] Subjective Aissatou Johnson is a 34 year old female. Patient [...] kidney doctors due to insurance issues with [facility]. - Denies fever or chills; previously experienced hot sweats and cold, but resolved. - Requests Zofran for nausea, as Keflex causes nausea as well. Kidney Disease: - History of kidney disease with proteinuria. - Unable to see mems device scientist due to insurance issues. - Typically takes [...] right CVA tenderness, left CVA tenderness or guarding. Skin: General: Skin is warm and [...] disease. - Advised to follow up with mems device scientist as soon as possible. - CMP ordered [...] analgesia. - Discussed expected course of illness Domitila Harmon APRN.PROFESSIONAL BUILDER and Recording using FullContact software for draft documentation of the visit was discussed with the patient/authorized junior sales representative; all questions welcomed and answered. Patient/authorized junior sales representative agreed to proceed Procedures CNOV Observed: 11/22/2024 8:45 AM Status: COMPLETED Source: [facility] Office Visit (WSTR) AISSATOU JOHNSON ([id number]) 1990 F Date Time Provider Department 11/22/24 8:45 AM DOMITILA HARMON During your visit today, we recorded the following information about you: Temperature Pulse Respiration Blood pressure 97 degrees 78/minute 18/minute 146/90 Weight 53 kg Domitila Harmon APRN.PROFESSIONAL BUILDER 11/22/2024 9:21 AM Signed [facility] Subjective Aissatuo Johnson is a 34 year old female. Patient [...] kidney doctors due to insurance issues with [facility]. - Denies fever or chills; previously experienced hot sweats and cold, but resolved. - Requests Zofran for nausea, as Keflex causes nausea as well. Kidney Disease: - History of kidney disease with proteinuria. - Unable to see mems device scientist due to insurance issues. - Typically takes [...] right CVA tenderness, left CVA tenderness or guarding. Skin: General: Skin is warm and [...] disease. - Advised to follow up with mems device scientist as soon as possible. - CMP ordered [...] analgesia. - Discussed expected course of illness Domitila Harmon APRN.PROFESSIONAL BUILDER and Recording using FullContact software for draft documentation of the visit was discussed with the patient/authorized junior sales representative; all questions welcomed and answered. Patient/authorized junior sales representative agreed to proceed Procedures Domitila Harmon APRN.PROFESSIONAL BUILDER 11/22/2024 9:19 AM Signed - Keflex antibiotic has been sent to [...] doctor as soon as possible to arrange follow-up care and address your ongoing kidney concerns. - Your urine sample was sent for culture; we will reach out if a different antibiotic is needed. Yolis Bolden LPN 11/22/2024 11:05 AM Signed Addended by: YOLIS BOLDEN on: 11/22/2024 11:05 AM Modules accepted: Orders Allergies As of Date: 11/22/2024 Noted Allergy Reaction ATORVASTATIN 07/03/2015 16 - Unknown CATS 10/27/2010 12 - Shortness of Breath DROPERIDOL 08/06/2012 10 - Anaphylaxis LAXATIVE PILL 09/25/2019 8 - GI Upset MEPERIDINE 07/03/2015 16 - Unknown SENNOSIDES 09/25/2019 14 - Other: See Comments Date Reviewed: 11/22/2024 Reviewed by: Yolis Bolden LPN - Fully Assessed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 [facility] 04/23/2024/04/23/20 24 [id number] [facility]:WOUC [facility] 04/08/2024/04/08/20 24 [id number] Ambulatory Building:[address] 04/04/2024/04/04/20 24 [id number] [facility] 04/04/2024/04/04/20 24 [id number] [facility] ENCOUNTER GUARANTOR PAYER SUBSCRIBER SOURCE 03/21/2025 Primary Insurance:[employer] MEDICAIDPolicy Number: [id number] Date:4568-13-75Nvxs Name:Montse WALTERS: [id number] [facility] [address] [address] [facility] 03/19/2025 Primary Insurance:[employer] MEDICAIDPolicy Number: [id number] Date:1481-72-23Ojpy Name:Montse WALTERS: [id number] [address] [address] [facility] 03/19/2025 Primary Insurance:[facility] MEDICAIDPolicy Number: [id number] Date:7643-81-44Qqrx Name:Montse JORDANB: [id number] [address], [place] [address] [facility] 03/19/2025 Primary Insurance:[facility] MEDICAIDPolicy Number: [id number] Date:0264-87-43Mxuq Name:Montse JORDANB: [id number] [address] [place] [address] [facility] 03/12/2025 Primary Insurance:[facility] MEDICAIDPolicy Number: [id number] Date:9221-08-03Owrp Name:Montse JORDANB: [id number] [address] [place] [address] [facility] 02/25/2025 Primary Insurance:[facility] MEDICAIDPolicy Number: [id number] Date:6750-32-76Bbuj Name:Montse JORDANB: [id number] [address] [address] [place] [address] [facility] 02/21/2025 Primary Insuranc e:[place] MED[place]Policy Number: [id number] Date:9886-10-97Ekzu Name:Montse JORDANB: [id number] [address] [address] [facility] 02/18/2025 Primary Insuranc e:[place] MED[place]Policy Number: [id number] Date:3316-71-69Yrea Name:Montse JORDANB: [id number] [address] [address] [facility] 02/17/2025 Primary Insuranc e:[place] MED[place]Policy Number: [id number] Date:8396-26-37Gqpy Name:Montse JORDANB: [id number] [address], [place] [address] [facility] 02/10/2025 Primary Insuranc e:[place] MED[place] Number: [id number] Date:0692-65-39Zwrd Name:Montse JORDANB: [id number] [address] [place] [address] [facility] 02/06/2025 Primary Insuranc e:[place] MED[place]Policy Number: [id number] Date:4332-30-55Rywi Name:Montse JORDANB: [id number] [address] [address] [place] [address] [facility] 02/06/2025 Primary Insuranc e:[place] Number: [id number] Date:9790-99-38Ryql Name:Montse JORDANB: [id number] [facility] [address] [address] [place] [id number] [place] [address] 02/06/2025 Primary Insuranc e:[place] MED[place]Policy Number: [id number] Date:4912-64-45Tcca Name:Montse JORDANB: [id number] [address] [place] [address] [facility] 01/24/2025 Primary Insurance:[facility] MEDICAIDPolicy Number: [id number] Date:0028-56-31Lofn Name:Montse JORDANB: [id number] [address], [place] [address] [facility] 01/24/2025 Primary Insurance:[facility] MEDICAIDPolicy Number: [id number] Date:7959-74-54Srxw Name:Montse JORDANB: [id number] [address] [address] [facility] 01/23/2025 Primary Insurance:[employer] MEDICAIDPolicy Number: [id number] Date:2281-12-90Hcdu Name:Montse JORDANB: [id number] [address] [place] [address] [facility] 01/21/2025 Primary Insurance:[employer] MEDICAIDPolicy Number: [id number] Date:0265-61-35Zidq Name:Montse JORDANB: [id number] [address] [place] [address] [facility] 12/31/2024 Primary Insurance:[employer] MEDICAIDPolicy Number: [id number] Date:6192-34-60Unef Name:Montse JORDANB: [id number] [address] [place] [id number] [place] [address] 12/20/2024 Primary Insurance:[employer] MEDICAIDPolicy Number: [id number] Date:2967-10-78Aaul Name:Montse JORDANB: [id number] [facility] [address] [place] [id number] [place] [address] 12/20/2024 Primary Insurance:[employer] MEDICAIDPolicy Number: [id number] Date:2850-08-92Hzxj Name:Montse JORDANB: [id number] [address] [place] [address] [facility] 11/22/2024 Primary Insurance:[employer] O HIXPolicy Number: [id number] Date:4214-55-09Rgpo Name:Anthony JOHNSONB: [id number] [address] [place] [id number] [place] [address] 11/22/2024 Primary Insurance:[employer] HMO HIXPolicy Number: [id number] Date:6639-37-33Babk Name:Anthony JOHNSONB: [id number] [address] [place] [address] [facility] 11/13/2024 Primary Insurance:[facility] HIXPolicy Number: [id number] Date:2042-65-84Puee Name:Anthony JOHNSONB: [id number] [facility] [address] [place] [address] [facility] 09/18/2024 Primary Insurance:[employer] MEDICAIDPolicy Number: [id number] Date:1308-90-82Ksud Name:Montse JOHNSONB: [id number] [place] [address] [facility] 09/03/2024 Primary Insurance:[employer] MEDICAIDPolicy Number: [id number] Date:3490-11-29Dact Name:Montse JOHNSONB: [id number] [place] [address] [facility] 08/14/2024 Primary Insurance:[employer] MEDICAIDPolicy Number: [id number] Date:5991-89-42Jgwl Name:Montse JOHNSONB: [id number] [place] [address] [facility] 07/11/2024 Primary Insurance:[employer] MEDICAIDPolicy Number: [id number] Date:8987-75-60Whoz Name:Montse JOHNSONB: [id number] [place] [address] [facility] 05/10/2024 Primary Insurance:[employer] MEDICAIDPolicy Number: [id number] Date:9591-02-46Jeni Name:Montse JOHNSONB: [id number] [address] [facility] 04/23/2024 Primary Insurance:[employer] MEDICAIDPolicy Number: [id number] Date:6090-00-95Nfyi Name:Montse JOHNSONB: [id number] [address] [address] [facility] 04/23/2024 Primary Insurance:[employer] MEDICAIDPolicy Number: [id number] Date:1407-04-08Dyvn Name:Montse Doherty ROMEO: [id number] [address] [address] [facility] 04/08/2024 AISSATOU Doherty JULIANB: [place], [place] [address]Jzo: () Primary Insurance:CARESOURCEPo licy Number: [id number] Date:2018-11-24 AISSATOU Doherty JULIANB: [id number] [place], [place] [address]Eia: () [facility] 04/04/2024 Primary Insurance:[employer] MEDICAIDPolicy Number: [id number] Date:7339-44-00Erzk Name:Montse Doherty ROMEO: [id number] [address] [address] [facility] 04/04/2024 Primary Insurance:[employer] MEDICAIDPolicy Number: [id number] Date:8868-53-05Rusv Name:Montse Doherty ROMEO: [id number] [address] [address] [facility]
--- NOTE | 2025-03-25 12:10 | RAD_ITS ---
PROCEDURE: UPPER GI/W SMALL BOWEL 03/25/2025 REASON FOR EXAM: ABDOMINAL PAIN - POSSIBLE STRICTURING Severe weight loss TECHNIQUE: UPPER GI/W SMALL BOWEL FLUOROSCOPIC TIME: 4 minutes 32 seconds FLUOROGRAPHIC IMAGES: 126 COMPARISON: None FINDINGS: Under fluoroscopic examination, patient was given gas crystals and then followed by dense oral contrast and then thin contrast. Fluoroscopic films as well as KUB is were also obtained and spot films. There is normal esophagus, normal mucosa with no significant pooling or dysmotility. Minimal narrowing at the distal esophagus at the gastroesophageal junction however not significantly narrowed as the standard barium tablet passes easily. The stomach and duodenum has normal mucosal pattern with no focal strictures or filling defects. Small-bowel follow-through demonstrates normal segments of jejunum, ileum. The ileocecal junction was reached at 3 hours after ingestion of contrast. There is no abnormalities identified on fluoro spot films. RAD/Upper GI/w Small Bowel IMPRESSION: Normal upper GI and small-bowel follow-through. There is no esophageal dysmoti lity or filling defects. There is however slight narrowing of the esophagus at the GE junction. Reading Location: [place] [address]
== END | disposition home or self-care (01) ==
LOC: RAD 07:50
PROVIDERS: PCP Nurse Practitioner Family; Referring Provider Internal Medicine Gastroenterology; Visit Provider Internal Medicine Gastroenterology
DX: R10.9 Unspecified abdominal pain (principal); R11.2 Nausea with vomiting, unspecified; G89.29 Other chronic pain
CPT/HCPCS: 74246; 74248

== ENCOUNTER 2025-04-14 21:42 | Emergency (ER) | payer MEDICAID, SELFPAY ==
[2025-04-14 21:47] VITALS: BP 150/105; PULSE 79; RESP 16; TEMP 36.6; O2SAT 99; BMI 15.2
[2025-04-14 23:00] VITALS: BP 140/96; PULSE 74; RESP 16; O2SAT 100
[2025-04-14 23:20] LABS: Hematocrit 31.9 % (37-47); Hemoglobin 10.9 g/dL (12.0-15.0); Immature Granulocytes Count 0.030 X10^3/uL (0.0-0.0); Mean Corp Hgb Conc 34.2 g/dL (32-36); Mean Corpuscular Volume 86.4 fL (81-99); Mean Platelet Vol. 10.2 fl (6.2-12.0); NRBC Flagged by Analyzer 0 % (0-5); Platelet Count 196 K/mm3 (150-450); RBC Distribution Width CV 13.4 % (11.6-14.6); RBC Distribution Width SD 41.6 fl (35.1-43.9); Red Blood Count 3.69 M/mm3 (4.2-5.4); White Blood Count 7.0 K/mm3 (4.4-11.0)
[2025-04-14 23:49] LABS: Anion Gap 15 (5-15); BUN 22 mg/dL (4-19); BUN/Creat Ratio 9.9 RATIO (10-20); Calcium,Total 9.4 mg/dL (7.6-11.0); Carbon Dioxide 14.7 mmol/L (21.0-32.0); Chloride 112 mmol/L (98-108); Estimated Creatinine Clearance 26.09 ml/min (50-250); Glucose 95 mg/dL (70-99); Magnesium 2.3 mg/dL (1.5-2.2); Potassium 3.1 mmol/L (3.3-5.1)
[2025-04-14 23:49] LABS: Barbiturate Urine NEGATIVE (< 200 ng/mL); Benzodiazepine Urine NEGATIVE (< 200 ng/mL); PCP Urine NEGATIVE (< 25 ng/mL); THC Urine PRESUMPTIVE POSITIVE (< 50 ng/mL)
[2025-04-15] VITALS: BP 135/95; PULSE 70; RESP 16; O2SAT 98
[2025-04-15] LABS: Alcohol, Blood (Medical)-Serum < 10.1 mg/dL (<=10.0)
[2025-04-15 00:11] LABS: Internal QC Validated? YES +Cl - CLEAR BKGD; Pregnancy, Urine Negative Negative; Record Kit Lot#,Urine Preg 0000980607
[2025-04-15 00:39] LABS: SITE Not entered; VBG BASE EXCESS -6 mmol/L (-1.0-3.5); VBG PO2 143 mmHg (25-40); VBG SO2 99 % (50-70); VBG TCO2 20 mmol/L (23-33)
[2025-04-15 01:00] VITALS: BP 132/73; PULSE 87; RESP 16; O2SAT 99
[2025-04-15 04:17] VITALS: BP 144/75; PULSE 86; RESP 16; TEMP 36.7; O2SAT 99
== END 2025-04-15 08:00 ==
PROVIDERS: Emergency Provider Emergency Medicine; PCP Nurse Practitioner Family; Visit Provider Emergency Medicine
DX: E03.9 Hypothyroidism, unspecified (principal); F22 Delusional disorders; F31.9 Bipolar disorder, unspecified; N18.30 Chronic kidney disease, stage 3 unspecified; K21.9 Gastro-esophageal reflux disease without esophagitis; F17.290 Nicotine dependence, other tobacco product, uncomplicated
CPT/HCPCS: 36415; 80048; 80307; 81025; 82077; 82803; 83735; 84443; 85025; 99285; A4216

== ENCOUNTER 2025-06-18 08:00 | Outpatient (RCR) | payer MEDICAID, SELFPAY ==
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
--- NOTE | 2025-06-18 11:11 | BH.NA_ITS ---
Physical Data Vital Signs Pulse Rate: 95 Blood Pressure: 148/92 Height/Weight Height: 1.75 m Weight:: 46.72 kg Weight in Pounds: 103.0 lbs Current Medication Compliance Medication Compliance Do you take your medication as prescribed?: Yes (states she is currently compliant with medication) Functional Assessment Sleep Pattern Describe any problems with sleeping: Client states she sleeps 4-5 hours per day. 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, states she is able to have normal conversation and understanding if she makes eye contact in conversation) Medical Problems/History Respiratory Conditions Respiratory: Asthma Neurological Conditions Neurological: Other (See comments) (neuropathy, migraines) Genitourinary Conditions Genitourinary: Other (See comments) (frequent UTI's, congenital solitary kidney and currently CKD stage 4- sees nephrology every 6 months) Hematologic Conditions Hematologic: Anemia and Other (See comments) (history of hepatitis C) Metabolic Conditions Metabolic: Hypothyroidism and Other (See comments) (states she has been told she is prediabetic) Gastrointestinal Conditions Gastrointestinal: Other (See comments) (GERD, IBS) Cancer History Type of Cancer:: Lymphoma-Hodgkins (states was stage 4 at diagnosis in 2008) Pain Assessment Do you have acute or chronic pain?: Yes (abdominal, general) Family History Family History Mother Depression Hypertension Mental disorder Thyroid disorder Aunt Diabetes Grandfather Alcoholism Cancer Surgical History Surgical History Have you had any surgeries? If so, list type and date:: Yes (shil[place], port-a-cath insertion and removal) Substance Abuse Substance Abuse Please describe substance abuse in the last 30 days:: Client states she has a history of alcohol use but denies current. Client states she vapes and uses cigarettes daily. Client states she has been sober from substance use for over a year, stating she used to use meth, opiates and cocaine. Client states she is trying to drink less caffeine now, stating she does drink tea and Mountain Dew b ut is trying to drink more water. Mental Status Summary Mental Status Significant Findings/Observations on Appearance and Mood:: Client is alert and oriented x 4 to current situation. Client is casually groomed. Client is cooperative with assessment. Client makes good eye contact. Client's voice has normal volume but is somewhat rapid at times. Client recalls most current medical issues, but states she is somewhat a poor historian about history of medications etc because she has been on so many. Client denies auditory h allucinations, but does state she sees orbs of light. Client denies recent SI. Suicide Assessment Suicidal Ideation Are you currently or have you been suicidal in the past?: Yes Suicidal Intentional Rating Scale (SIRS): Suicidal thoughts (past) Physician Notification Past Psychiatric History MH Treatment Hx Past Psychiatric Medications:: per recent external medication list- Abilify, Vraylar, Intuniv, Prazosin. Client reports many others (I've been on most of them) Age of first mental health symptoms: Client states she was 22 years old when she had her first mental health hospitalization and has been on medications for mental health off and on. Client states Usually I stop taking the drugs because I don't think they are helping and I feel like they are just trying to dope me up. Describe (age, circumstance, etc) any past hospitalizations: Recently in March-April 2025, client was at [facility] for 45 days after a psychotic episode where she was at the ER and said she thought she was injected with something and was euthanized but came back to life. Client states she has had a lifetime of 17 hospitalizations, stating that she usually needs a reset every 2 years but states she does not feel like she got a reset after her hospitalization at [facility] Current providers for mental health treatment (counselor, psychiatrist, case packer, etc.): therapist at [facility], psychiatry at [facility] Fall Risk Assessment Age Age: Less than 60 Mental Status Mental Status: Willing & able to ask for assistance when needed Physical Status Physical Status: No problems Impairments Impairments: None Elimination Elimination: Continent AND independent Gait or Balance Gait or Balance: Walks independently Hx of Falls History of falls in the past 6 months: No known history Medications/Substances Psychotropics:: Antipsychotics, Anticholinergics (e.g. benztropine) and Antihistamines (e.g. Benadryl) Medications/substances used within the past 24 hours or ordered to administer: 3 or more of the medications/substances listed above Total Score Total Points:: 2 RN Summary of Impressions Impressions Recommendations Impressions: Psychiatric Issues: bipolar 1 disorder vs schizoaffective disorder Impression: General Medical Conditions: CKD stage 4- states she sees nephrology every 6 months. history of lymphoma- states she does have follow ups with oncology is seeing her PCP 06/24 after having marek removed from her head from a laceration she got while at [facility]. Level of Care How do the client's current symptoms and functional deficits support need for this level of care?: Client presents to [facility] after a recent 45 day stay at [facility] for psychosis. Client states she feels she may still be psychotic, but she knows she can't be completely psychotic because she brought herself to [facility] for treatment. Client states while at [facility], a clinical social work therapist told her you broke this place, now you have to heal it and states she was expected to heal everyone at the hospital with her special abilities. Client states she got angry and broke her own glasses, but after she got the supervisors glasses and wore them every thing changed and I was able to heal everyone there. Client speaks about having many deaths and rebirths, and I'm not sure why. Client states that her body reacts differently to different things at different times (client stated The sun has made me sick before, but now I can look directly i nto the sun and the sun gives my mind downloads of new stuff). Client states frustration currently that going to the hospital made her miss her court hearing to attempts to get disability benefits. Client reports anger at her mother, stating she thinks her mother wants to harm her. Client states she is soon having a court hearing to test her competency to potentially get a guardian. Client states she is here at [facility] because I've tried so many other things that haven't helped me, I thought maybe this would help me. Client denies SI. [facility] will promote gains and prevent further decompensation while providing social support and skills training. Nutritional Screen Height/Weight Height: 1.75 m Weight:: 46.72 kg Weight in Pounds: 103.0 lbs Nutrition Screening Normal Weight: 47.627 kg Normal/Usual Weight in Pounds: 105.0 lbs Have you lost weight without trying: Yes Have you been eating poorly because of a decreased appetite: Yes Recently been on tube feeds, TPN, or have any nutritional access device in place: No Have any large open wounds or wounds that are not healing: No Calculated Weight Change: [id number] Change in weight Score: 1 MST Screening Tool Score: 4 *Automatic Nutrition referral for a score of 2 or greater.*: Client saw Dr. Reese in February 2025 due to unwanted weight loss. Client states she uses marijuana to have an appetite, otherwise she does not feel hungry. Client states she often has diarrhea after eating or drinking anything. Client does have stage 4 chronic kidney disease and states she has been told that she is prediabetic.
--- NOTE | 2025-06-18 11:15 | BH.SGPN.GN ---
Behaviors/Verbalizations/Mental Status: []Client alert and oriented, casually dressed and groomed. Eye contact good. Motor activity appropriate. Speech within normal limits. Affect congruent, mood anxious. Thoughts linear, logical, no signs of hallucinations or delusions. Client Response/Progress/Benefit: [] Pt engaged in session AEB contributing to discussion and engaging in small group. Attentive during discussion on strategies for more effectively managing conflict in personal life. Pt noted current conflict resolution style. Pt given handout on fair fighting rules and how to identify common conflict barriers. Pt indicated what needs improvement in conflict for them which was to take a time out when things get too heated and take turns speaking. Appeared to benefit from gaining strategies to help pt better manage conflict. Will continue IOP tx prevent decompensation, improve daily functioning, and monitor psychosis. Narrative Note: []
[2025-06-18 11:18] VITALS: BP 148/92; PULSE 95
--- NOTE | 2025-06-23 06:28 | BH.DR.ITP ---
Initial Treatment Plan Patient Information Visit Information: ADMISSION DATE: 06/18/2025 EXPECTED LOS: 4-6 weeks Problems/Symptoms Problem #1:: schizoaffective disorder, bipolar type Symptom:: anxiety, derealization, mood lability, history of delusions/disorganized thoughts
--- NOTE | 2025-06-23 11:10 | BH.MDN_ITS ---
Multi-Disciplinary Note Note 60-min Individual: Time Started:: 11:10 Date: 06/23/25 Purpose of session/treatment goals addressed:: Utilized the session to review current symptom and progress in IOP, develop master treatment plan, and obtain pertinent psychosocial history. Eye Contact:: Good Motor Activity:: Appropriate Appearance:: Casual Speech:: Appropriate Mood:: Anxious and Irritable Affect:: Congruent Thoughts:: Logical, Racing and Other (tangential, loose associations, endorses visual hallucinations which occur throughout the day) Staff Interventions:: rapport building, strengths perspective and treatment planning Client Response:: Patient was receptive to engaging in psychotherapy. She reports significant stress related to multiple psychosocial stressors. Recent history includes a 45-day psychiatric hospitalization for psychosis. She continues to experience persistent perceptual disturbances, including visual hallucinations, and expresses difficulty distinguishing whether these experiences represent psychotic symptoms or a spiritual phenomenon. She describes a lifelong history of perceived ?gifts? (e.g., seeing auras, spirits, energy, frequencies, vibrations). Currently, she reports frequent visual phenomena such as rainbows, auras, reflections of light, and ?eyes? throughout the day. She questions the authenticity of these experiences and does not fully endorse a spiritual origin; however, she acknowledges that these symptoms are distressing and overwhelming at times. She reports difficulty establishing a timeline for symptom exacerbation, noting worsening after discontinuing Suboxone in March 2025 and further deterioration following a head injury during hospitalization (received five marek; details unclear due to disorganized thought). She has an appointment with her PCP tomorrow to address concerns about possible concussion. Additional stressors include recent legal charges (?menacing?) received shortly after discharge. She does not recall making threatening statements to her ex-partner, which may have occurred during a period of residual psychosis and cognitive disorganization. Overall, the patient presents with ongoing stress related to legal issues, concerns about mental stability, persistent hallucinations, and uncertainty about her future functioning. Pt's goals include; creating healthy boundaries (mother), obtaining psychoeducation on Bipolar/laina, and emotion regulation. Risks/Concerns:: Denies any current suicidal or homicidal ideations. Long- standing hallucinations and mild paranoia. Progress Toward Goals/Plan:: This is the patient?s third day in the Intensive Outpatient Program (IOP). She has been consistent in attendance and actively engaged in group and individual sessions. The patient reports enjoying the program, stating, ?everyone is so nice,? and appears motivated to ?get help. This is a clinically complex case with a significant history of mental health and substance use disorders. Per documentation from her long-term psychiatric provider, diagnoses include Bipolar I Disorder, most recent episode manic with psychotic features; Post-Traumatic Stress Disorder (PTSD); Major Depressive Disorder, recurrent; and Opioid Use Disorder (in early remission). The patient demonstrates motivation for treatment, insight into the need for help, and willingness to engage in therapeutic interventions. She expresses appreciation for social support within the program and has maintained sobriety. She also reports insight on benefits of medication adherence and agrees to discuss any side effect or concern with medication with program psychiatrist rather than abruptly stopping medications. The patient will continue in IOP to prevent decompensation and stabilize mood. Psychotherapy focused on reality testing, coping strategies for hallucinations, and stress management. Psychiatric follow-up is strongly recommended to review antipsychotic medication and ensure adherence; she has an appointment with her outpatient psychiatrist tomorrow and is due for her scheduled Abilify (aripiprazole) long-acting injection. She has a scheduled primary care appointment for evaluation of a recent head injury, with consideration for neuroimaging and concussion protocol. Psychoeducation will normalize psychotic symptoms, clarify the distinction between spiritual interpretations and p sychotic phenomena, and reinforce the importance of treatment adherence.
--- NOTE | 2025-06-23 15:01 | BH.PSA ---
Development & Family of Origin Family History Family History Mother Depression Hypertension Mental disorder Thyroid disorder Aunt Diabetes Grandfather Alcoholism Cancer
--- NOTE | 2025-06-25 11:05 | BH.SGPN.GN ---
Behaviors/Verbalizations/Mental Status: []Client alert and oriented, casually dressed and groomed. Eye contact good. Motor activity appropriate. Speech within normal limits. Affect congruent, mood engaged. Thoughts linear, logical, no signs of hallucinations or delusions. Client Response/Progress/Benefit: [] Pt receptive of session, engaged throughout AEB Pt actively listening and contributing to discussion as well as taking notes.? Pt participated in the experiential activity and did well to communicate ideas with peers and manage emotions. Pt attentive as group processed how the emotions and perspective of the group impacted the activity. Pt was highly encouraging during the activity which helped peers. Group worked together to identify different coping skills to help manage pitfalls. Pt identified pitfalls they struggle with not wanting to take meds, procrastination, and urge self-sabotage. Pt plans to work on their pitfall by ?using opposite action to not self-sabotage.? Benefited from identifying personal pitfalls and strategies to overcome these pitfalls. Pt will continue IOP tx to prevent decompensation, gain healthy coping skills, and monitor psychosis. ??? Narrative Note: []
== END 2025-06-25 23:59 ==
LOC: BHIOP 08:00
PROVIDERS: PCP Nurse Practitioner Family; Referring Provider Student in an Organized Health Care Education/Training Program; Visit Provider Student in an Organized Health Care Education/Training Program
DX: F25.0 Schizoaffective disorder, bipolar type (principal)
CPT/HCPCS: H2012; H2020; S9480; 90837